=== PATIENT | female | born 1955 | race Caucasian/White ===

== ENCOUNTER 2018-08-24 10:16 | Emergency (ER) | payer MEDICARE, MEDICAID, SELFPAY ==
[2018-08-24] VITALS (8 sets, daily range): BP systolic 157–204; BP diastolic 89–129; PULSE 55–100; RESP 16–25; TEMP 37.3–37.4; O2SAT 86–98; BMI 18.3
--- NOTE | 2018-08-24 10:31 | CT_ITS ---
STUDY: CT BRAIN WITHOUT CONTRAST REASON FOR EXAM: Female, 63 years old. Fall from a ladder last evening RADIATION DOSAGE (If Supplied By Facility): CTDIvol = ( 44.99 ) mGy, DLP = ( 796.11 ) mGycm TECHNIQUE: Transaxial CT imaging of the brain was performed without administration of intravenous contrast material. Individualized dose optimization techniques were used for this CT. COMPARISON: No relevant priors. FINDINGS: Normal soft tissue structures. Normal calvarium. There is moderate cerebral atrophy with widening of the extra-axial spaces and ventricular dilatation. There are areas of decreased attenuation within the white matter tracts of the supratentorial brain, consistent with microvascular disease changes. Normal basal ganglia and thalami. Normal brainstem. There is mild cerebellar atrophy. There is no intracranial hemorrhage. There are no findings of an acute ischemic infarction. There is mucoperiosteal inflammatory disease of the paranasal sinuses consistent with mild chronic sinusitis. CT/Brain/Head without Contrast IMPRESSION: Chronic involutional changes of the brain. Electronically Signed: Gerald Pacheco DO at 12:26 EDT Tel , Service support ,
--- NOTE | 2018-08-24 10:31 | EKG12_ITS ---
Test Reason : SOB Blood Pressure : / mmHG Vent. Rate : 097 BPM Atrial Rate : 097 BPM P-R Int : 146 ms QRS Dur : 086 ms QT Int : 374 ms P-R-T Axes : 072 066 064 degrees QTc Int : 474 ms Sinus rhythm with frequent Premature ventricular complexes Possible Left atrial enlargement Left ventricular hypertrophy Abnormal ECG Confirmed by ELIAS FOOTE, TUTU ([id number]), food editor APRIL RAMÍREZ ([id number] on 08/26/2018 11:41:58 AM Referred By: Confirmed By:TUTU GRIFFIN MD
--- NOTE | 2018-08-24 10:32 | CT_ITS ---
STUDY: CT CHEST WITHOUT CONTRAST REASON FOR EXAM: Female, 63 years old. Fall from a ladder RADIATION DOSAGE (If Supplied By Facility): CTDIvol = ( 9.24 ) mGy, DLP = ( 314.50 ) mGycm TECHNIQUE: Transaxial imaging was performed without the administration of intravenous contrast material. Individualized dose optimization techniques were used for this CT. COMPARISON: None. FINDINGS: COPD and emphysema, moderate. Spiculated nodule in the right upper lobe measuring 7.8 x 7.3 mm. Suspicious for malignancy. No evidence of pneumothorax. An area of partial consolidation is noted in the right middle lobe; unsure if this related to mild mucous plugging. Lungs are otherwise clear. Normal heart and pericardium. Multiple prominent and small mediastinal lymph nodes are noted. Normal hilar regions. Normal unenhanced pulmonary arteries. Normal aorta arch and descending thoracic aorta. There are multi-level degenerative changes of the thoracic spine. No evidence of rib fracture. There is a compression fracture of the T5 vertebral body. . CT/Chest without Contrast IMPRESSION: Compression fracture of the T5 vertebral body without retropulsed fragmentation. COPD and emphysema without acute injury in the chest. Highly suspicious right upper lobe pulmonary nodule, further evaluation is needed when possible. Numerous small mediastinal lymph nodes. Electronically Signed: Gerald Pacheco DO at 12:30 EDT Tel , Service support ,
--- NOTE | 2018-08-24 10:32 | CT_ITS ---
STUDY: CT CERVICAL SPINE WITHOUT CONTRAST REASON FOR EXAM: Female, 63 years old. Status post fall off a ladder RADIATION DOSAGE (If Supplied By Facility): CTDIvol = ( 13.03 ) mGy, DLP = ( 228.50 ) mGycm TECHNIQUE: High resolution transaxial imaging was performed without contrast material. Sagittal and coronal images were reconstructed. Individualized dose optimization techniques were used for this CT. COMPARISON: None FINDINGS: Normal craniovertebral junction. Normal anterior atlantoaxial articulation. Normal odontoid process. Normal cervical lordosis. Normal vertebral bodies and posterior osseous elements. No acute fracture or listhesis. Mild multilevel degenerative disc disease. Mild diffuse demineralization. Normal visualized soft tissue structures. CT/Spine Cervical without Contras IMPRESSION: Multilevel degenerative changes, as described above. Electronically Signed: Gerald Pacheco DO at 12:52 EDT Tel , Service support ,
--- NOTE | 2018-08-24 10:32 | CT_ITS ---
STUDY: CT ABDOMEN AND PELVIS WITH CONTRAST REASON FOR EXAM: Female, 63 years old. Fall from a ladder RADIATION DOSAGE (If Supplied By Facility): CTDIvol = ( 12.83 ) mGy, DLP = ( 608.40 ) mGycm TECHNIQUE: Transaxial images were obtained from the dome of the diaphragm to the symphysis pubis without oral contrast. 100ML IV Isovue 300 was administered. Sagittal and coronal images were reconstructed. Individualized dose optimization techniques were used for this CT. COMPARISON: None. FINDINGS: The visualized lung bases are unremarkable. The visualized portions of the heart are within normal limits. Normal liver. Normal gallbladder and extrahepatic biliary system. Normal spleen. Normal pancreas. Normal bilateral adrenal glands. Normal right kidney. Normal left kidney. Normal visualized stomach. Normal small intestine. There are multiple colonic diverticula consistent with diverticulosis. There is non-visualization of the appendix. There is diffuse atherosclerotic calcification of the abdominal aorta, without a demonstrated aneurysm. Normal inferior vena cava. Normal retroperitoneum. Normal urinary bladder. There is atrophy of the uterus. Normal abdominal wall. There are diffuse degenerative changes of the visualized lumbar spine. CT/Abdomen/Pelvis W IV Cont ONLY IMPRESSION: No acute traumatic findings. Chronic diverticulosis without acute diverticulitis. No evidence of active bleeding or hemorrhage. Electronically Signed: Gerald Pacheco DO at 12:41 EDT Tel , Service support ,
--- NOTE | 2018-08-24 10:34 | CT_ITS ---
STUDY: CT THORACIC SPINE WITHOUT CONTRAST REASON FOR EXAM: Female, 63 years old. Fall from a ladder RADIATION DOSAGE (If Supplied By Facility): CTDIvol = ( 18.42 ) mGy, DLP = ( 608.82 ) mGycm TECHNIQUE: The patient was scanned in a multi detector CT scanner. High resolution imaging was performed. Images were obtained from C7 to L1. Sagittal and coronal images were reconstructed. Individualized dose optimization techniques were used for this CT. COMPARISON: CT chest the same time FINDINGS: There is multilevel degenerative disc disease and cervical spondylosis. There appears to be severe acute compression fracture of the T5 vertebral body without retropulsed fragmentation. No definite evidence of epidural hematoma. Otherwise, age-related degenerative changes of the thoracic spine with diffuse demineralization CT/Spine Thoracic without Contras IMPRESSION: Compression fracture of T5 vertebral body without retropulsed fragmentation or evidence of epidural hematoma. Electronically Signed: Gerald Pacheco DO at 12:32 EDT Tel , Service support ,
--- NOTE | 2018-08-24 10:35 | CT_ITS ---
STUDY: CT LUMBAR SPINE WITHOUT CONTRAST REASON FOR EXAM: Female, 63 years old. Status post fall from a ladder RADIATION DOSAGE (If Supplied By Facility): CTDIvol = ( 11.66 ) mGy, DLP = ( 324.36 ) mGycm TECHNIQUE: The patient was scanned in a multi detector CT scanner. High resolution transaxial imaging was performed. Images were obtained from T12 to S1. Sagittal and coronal images were reconstructed. Individualized dose optimization techniques were used for this CT. COMPARISON: None FINDINGS: Normal lumbar lordosis. There is no substantial scoliosis. Severe diffuse demineralization. Normal vertebrae of the lumbar spine. There is no demonstrated compression deformity or fracture of the visualized lumbar vertebrae. Moderate multilevel degenerative disc disease with facet degenerative change. No critical central canal stenosis. Severe atherosclerotic disease of the abdominal aorta CT/Spine Lumbar without Contrast IMPRESSION: Multilevel degenerative changes, as described above. Electronically Signed: Gerald Pacheco DO at 12:33 EDT Tel , Service support ,
--- NOTE | 2018-08-24 10:35 | NURSING ---
NO OLD EKGS
--- NOTE | 2018-08-24 10:38 | ED.DCSUM_ITS ---
- ER Visit Summary Date of Service: 08/24/18 Chief Complaint: Fall, shortness of breath History of Present Illness: The patient is a 63 F presenting after fall, complaining of shortness of breath. Patient states she was on a 6 foot ladder cleaning her gutters. She lost her balance and fell onto her back. This occurred yesterday. She did hit her head but did not lose consciousness. She complains of upper back pain and chest wall pain. She has had shortness of breath since the fall. She has a history of COPD, hypertension, GERD. Physical Examination: Vitals are stable. Patient is afebrile. Alert no acute distress. 86% on room air HEENT exam is unremarkable. Neck is nontender Lungs are diminished and wheezing bilaterally. Diffuse chest wall tenderness Heart is regular rate and rhythm. Abdomen is soft mild diffuse tenderness with no rebound or guarding Extremities left forearm skin tear no bony tenderness, active full range of motion Skin is warm and dry. No focal neurologic deficit. Remainder of exam is unremarkable. Emergency Department Course and Treatment: Patient was given morphine, Zofran IV. She was given albuterol Atrovent aerosol. She was given tetanus IM. EKG is sinus rate of 97 with LVH, PVCs. CBC shows white count 11.3. Chemistries show sodium 125, glucose 120. Troponin is negative. CT head shows chronic involutional changes of the brain. CT cervical spine shows multilevel degenerative changes. CT thoracic spine shows compression fracture of T5 vertebral body without retropulsed fragmentation or evidence of epidural hematoma. CT lumbar spine shows multilevel degenerative changes. CT chest shows compression fracture of the T5 vertebral body without retropulsed fragmentation. COPD and emphysema without acute injury in the chest. Highly suspicious right upper lobe pulmonary nodule, further evaluation is needed when possible. Numerous small mediastinal lymph nodes. CT abdomen pelvis shows no acute traumatic findings. Chronic diverticulosis without acute diverticulitis. No evidence of active bleeding or hemorrhage. Patient continues to have wheezing after aerosol treatments. She was given Solu-Medrol IV. She was given additional dose of pain medication. She continues to require oxygen in the ED. Discussed with the hospitalist. He recommends transfer to tertiary care center for trauma evaluation. Discussed with [facility] for transfer. Disposition: Transfer [facility] Impression: COPD exacerbation, status post mechanical fall, T5 compression fracture, left forearm skin tear This note was generated with Dragon dictation software. It may contain incorrect words, spelling, and punctuation that were not noted in review of the chart prior to signing ED Disposition - Plan for ED Patient: Referrals: May Garcia MD [Primary Care Provider] -
[2018-08-24] MEDS: Ondansetron 4 MG/2 ML Vial IV (10:47)
[2018-08-24] MEDS: Morphine 4 MG/ML Syringe IV ×2 (10:47→13:25)
[2018-08-24 10:48] LABS: Absolute Neutrophil Count 9.8 X10^3/uL (2.0-7.7); Basophil# 0.01 X10^3/uL; Basophil% 0.1 % (0-1); Hematocrit 43.9 % (37-47); Hemoglobin 15.6 g/dl (12.0-15.0); Lymphocyte % 4.4 % (19-41); Mean Corp Hgb Conc 35.5 g/gl (32-36); Mean Corpuscular Hgb 32.7 pg (27.0-32.0); Mean Platelet Vol. 9.1 fl (6.2-12.0); Neutrophil # 9.82 X10^3/uL (2.7-7.7); Neutrophil % 87.2 % (47-70); Platelet Count 394 K/mm3 (150-450); RBC Distribution Width CV 12.6 % (11.6-14.6); RBC Distribution Width SD 42.4 fl (35.1-43.9); Red Blood Count 4.77 M/mm3 (4.2-5.4); White Blood Count 11.3 K/mm3 (4.4-11.0)
[2018-08-24 10:49] LABS: Differential Indicated SCAN CRITERIA MET; POSITIVE COUNT NO; POSITIVE DIFFERENTIAL YES; POSITIVE MORPHOLOGY NO
[2018-08-24] MEDS: Albuterol 2.5 MG/3 ML VIAL.NEB. INHALATION ×3 (10:55)
[2018-08-24] MEDS: Ipratropium/Albuterol Sulfate 3 ML AMPUL.NEB INHALATION (10:56)
[2018-08-24 11:02] LABS: Anion Gap 6 (5-15); BUN 7 mg/dL (7-18); BUN/Creat Ratio 12.9 RATIO (10-20); Calcium,Total 9.2 mg/dL (8.5-10.1); Chloride 89 mmol/L (98-107); Creatinine, Serum 0.54 mg/dL (0.55-1.02); EST Glomerular Filtration Rate 120 mL/min (>60); Est Glom Filt Rate - Afr Amer 145 mL/min (>60); Estimated Creatinine Clearance 87.02 ml/min; Glucose 120 mg/dL (74-106); Sodium Level 125 mmol/L (136-145)
[2018-08-24] MEDS: Diphth,Pertuss(Acell),Tet Vac 0.5 ML Vial IM (11:57)
[2018-08-24] MEDS: MethylPREDNISolone 125 MG/2 ML Vial IV (13:25)
--- NOTE | 2018-08-24 13:57 | NURSING ---
CALLED [facility] FOR [facility]SF[facility]. TALKED TO ARAM
--- NOTE | 2018-08-24 14:22 | NURSING ---
ER TO ER AT [facility] PER DR CASTAÑEDA. ER DR IS LINDY STAFFORD
--- NOTE | 2018-08-24 14:26 | NURSING ---
CALLED [facility] FOR TRANSPORT. NONE AVAILABLE TIL [phone]
--- NOTE | 2018-08-24 14:26 | NURSING ---
CALLED [facility]. ANDERSON IS FROM [place]
== END 2018-08-24 15:02 | disposition short-term general hospital (02) ==
PROVIDERS: Emergency Provider Emergency Medicine; Family Provider Internal Medicine; PCP Internal Medicine
DX: S22.059A Unspecified fracture of T5-T6 vertebra, initial encounter for closed fracture (principal); S51.812A Laceration without foreign body of left forearm, initial encounter; W11.XXXA Fall on and from ladder, initial encounter; Y93.H9 Activity, other involving exterior property and land maintenance, building and construction; Y92.007 Garden or yard of unspecified non-institutional (private) residence as the place of occurrence of the external cause; Y99.9 Unspecified external cause status; Z23 Encounter for immunization; J44.1 Chronic obstructive pulmonary disease with (acute) exacerbation; I49.3 Ventricular premature depolarization; I10 Essential (primary) hypertension; K57.90 Diverticulosis of intestine, part unspecified, without perforation or abscess without bleeding; R91.1 Solitary pulmonary nodule; K21.9 Gastro-esophageal reflux disease without esophagitis; Z72.0 Tobacco use; Z79.899 Other long term (current) drug therapy
CPT/HCPCS: 70450; 71250; 72125; 72128; 72131; 74177; 80048; 84484; 85025; 90715; 93005; 94640; 96374; 96375; 96376; 99285; J7030; Q9967; A4216; J2405

== ENCOUNTER 2018-09-06 12:46 | Emergency (ER) | payer MEDICARE, MEDICAID, SELFPAY ==
[2018-08-24 10:17] VITALS: BMI 18.3
[2018-09-06 12:46] VITALS: BP 154/95; PULSE 75; RESP 16; TEMP 36.6; O2SAT 94; BMI 19.0
--- NOTE | 2018-09-06 13:04 | ED.VISSUMM ---
- ER Visit Summary Date of Service: 09/06/18 Chief Complaint: [Back and rib pain] History of Present Illness: The patient is a 63 F [Zentz to the emergency department complaint of back and rib pain that started after she had a fall over a week ago. Patient states that she was on a roof cleaning her gutters when she fell off. Patient was seen in this emergency department and then transferred to [facility]. Patient apparently was diagnosed with a T5 compression fracture and she tells me also rib fractures. Patient states that she thinks her granddaughter brought her medications up to the hospital and then were misplaced while there. Patient takes hydrocodone regularly and gets monthly prescriptions from her primary care physician Dr. Delmy Garcia. Patient was not discharged home with any other pain medication. Patient having significant pain and is supposed to have visiting nurses come in to help with rehab. Patient does not feel like she will be able to do it without her pain medication.] No new injuries. Physical Examination: [HEENT-PERRLA, EOMI. Cranial nerves II through XII grossly intact. TMs clear. Mucous membranes moist. No adenopathy. Cardiovascular-regular rate and rhythm without murmur or ectopy Lungs-clear to auscultation, chest wall stable without crepitus or subcu emphysema Abdomen-normoactive bowel sounds, soft, nontender, no rebound or rigidity, no peritoneal signs. Back exam-patient has some faint ecchymosis noted over the lower lumbar spine. Patient has tenderness diffusely about the left and right posterior ribs however no ecchymosis or bruising noted. There is no subcu emphysema. Extremities-intact ?4, normal range of motion, normal pulses, atraumatic] Test Results: [None indicated] Emergency Department Course and Treatment: [] Treatment Plan: [I did review patient's CT reports from prior visit. Patient was noted to have a T5 compression fracture with retropulsion. CT of the chest however did not show rib fractures.] Disposition: [Patient will be given a short supply of Percocet.] Impression: [T5 compression fracture Bilateral rib pain] This note was generated with [employer] dictation software. It may contain incorrect words, spelling, and punctuation that were not noted in review of the chart prior to signing ED Disposition - Plan for ED Patient: Referrals: May Garcia MD [Primary Care Provider] -
--- NOTE | 2018-09-06 13:07 | ED.DEP ---
ED Disposition - Plan for ED Patient: Instructions: ED Fx Comp Vertebral Prescriptions: Oxycodone HCl/Acetaminophen [Percocet 5/325] 1 tab PO Q6H PRN PRN 5 Days #20 tab PRN Reason: Pain Referrals: May Garcia MD [Primary Care Provider] - 5-7 Days
== END 2018-09-06 13:24 | disposition home or self-care (01) ==
PROVIDERS: Emergency Provider Emergency Medicine; Family Provider Internal Medicine; PCP Internal Medicine
DX: M48.54XA Collapsed vertebra, not elsewhere classified, thoracic region, initial encounter for fracture (principal); R07.81 Pleurodynia; W11.XXXA Fall on and from ladder, initial encounter; Y93.9 Activity, unspecified; Y92.9 Unspecified place or not applicable; Y99.9 Unspecified external cause status; M54.9 Dorsalgia, unspecified; G89.29 Other chronic pain; Z72.0 Tobacco use
CPT/HCPCS: 99282

== ENCOUNTER 2019-10-24 07:18 | Inpatient (IN) | payer MEDICARE, MEDICAID, SELFPAY ==
[2019-10-24] VITALS (22 sets, daily range): BP systolic 100–158; BP diastolic 68–105; PULSE 89–112; RESP 12–33; TEMP 36.4–36.8; O2SAT 91–100; BMI 19.4; BMI 18.9
--- NOTE | 2019-10-24 07:21 | RAD_ITS ---
STUDY: X-RAY CHEST REASON FOR EXAM: Female, 64 years old. EXTREME SOB TECHNIQUE: Single AP portable view of the chest. COMPARISON: None. FINDINGS: EKG electrodes are seen. There is evidence of a left 15-20% pneumothorax. Mild shift of the heart and mediastinal structures towards the right side. Mild tension should be ruled out. Hyperinflation. Increased markings at the lung bases suggestive of a scarring. Normal size heart. Normal mediastinum and tripp. Normal visualized pulmonary arteries. There is atherosclerotic tortuosity of the aortic arch and descending thoracic aorta. Normal visualized thoracic spine. Normal visualized ribs, clavicles, and shoulders. There is no demonstrated abnormality of the visualized soft tissue structures of the upper abdomen. RAD/Chest 1 View (Portable) IMPRESSION: Left 15-20% pneumothorax. Mild shift of the heart and mediastinal structures towards the right side. An element of the tension should be ruled out. Electronically Signed: Roni Sanchez, at 8:17 EDT , Service support ,
--- NOTE | 2019-10-24 07:22 | EKG12_ITS ---
Test Reason : SOB Blood Pressure : / mmHG Vent. Rate : 099 BPM Atrial Rate : 099 BPM P-R Int : 160 ms QRS Dur : 086 ms QT Int : 396 ms P-R-T Axes : 072 049 067 degrees QTc Int : 508 ms Sinus rhythm with occasional Premature ventricular complexes Nonspecific ST and T wave abnormality Abnormal ECG Confirmed by ELIAS FOOTE, TUTU ([id number]), digital editor KAI RODRIGUEZ ([id number]) on 10/28/2019 9:25:46 AM Referred By: TOBY Confirmed By:TUTU GRIFFIN MD
[2019-10-24] MEDS: Albuterol 2.5 MG/3 ML VIAL.NEB. INHALATION ×2 (07:30→07:31)
[2019-10-24] MEDS: 0.9% Normal Saline 1,000 ML 150 ML IV (07:30)
[2019-10-24 07:38] LABS: Absolute Lymphocyte Count 1.57 X10^3/uL (0.83-4.51); Absolute Neutrophil Count 11.1 X10^3/uL (2.0-7.7); Basophil# 0.04 X10^3/uL; Basophil% 0.3 % (0-1); Eosinophil# 0.42 X10^3/uL; Hematocrit 43.1 % (37-47); Hemoglobin 14.6 g/dL (12.0-15.0); Lymphocyte # 1.57 X10^3/ul (4.0); Lymphocyte % 11.1 % (19-41); Mean Corp Hgb Conc 33.9 g/dL (32-36); Mean Corpuscular Hgb 32.6 pg (27.0-32.0); Mean Corpuscular Volume 96.2 fL (81-99); Mean Platelet Vol. 9.1 fl (6.2-12.0); Monocyte# 0.94 X10^3/uL; Monocyte% 6.6 % (0-10); NRBC Flagged by Analyzer 0 % (0-5); Neutrophil # 11.08 X10^3/uL (2.7-7.7); Neutrophil % 78.4 % (47-70); Platelet Count 414 K/mm3 (150-450); RBC Distribution Width CV 13.2 % (11.6-14.6); RBC Distribution Width SD 46.7 fl (35.1-43.9); Red Blood Count 4.48 M/mm3 (4.2-5.4); White Blood Count 14.1 K/mm3 (4.4-11.0)
[2019-10-24] MEDS: fentaNYL 100 MCG/2 ML Ampul 50 MCG IV (07:46)
[2019-10-24 07:47] LABS: International Normalized Ratio 1.1
[2019-10-24 07:48] LABS: Partial Thromboplast Time 25.3 Seconds (24.1-36.2)
[2019-10-24 07:50] LABS: D-Dimer Quantitative (DVT/PE) 0.38 FEU/ug/m (0.27-0.49)
[2019-10-24 07:57] LABS: AST(SGOT) 19 U/L (15-37); Alanine Aminotransfer ALT/SGPT 19 U/L (13-56); Albumin, Serum 3.7 g/dL (3.2-5.0); Alkaline Phosphatase 76 U/L (45-117); Anion Gap 3 (5-15); BUN 10 mg/dL (7-18); BUN/Creat Ratio 16.9 RATIO (10-20); Calcium,Total 8.1 mg/dL (8.5-10.1); Chloride 100 mmol/L (98-107); Creatinine, Serum 0.59 mg/dL (0.55-1.02); EST Glomerular Filtration Rate 108 mL/min (>60); Est Glom Filt Rate - Afr Amer 131 mL/min (>60); Estimated Creatinine Clearance 47.79 ml/min; Globulin 3.7 g/dL (2.2-4.2); Glucose 156 mg/dL (74-106); Potassium 4.4 mmol/L (3.5-5.1); Protein, Total 7.4 g/dL (6.4-8.2); Sodium Level 132 mmol/L (136-145)
[2019-10-24 08:01] LABS: Lactic Acid 1.2 mmol/L (0.4-1.9)
--- NOTE | 2019-10-24 08:06 | RAD_ITS ---
STUDY: X-RAY CHEST REASON FOR EXAM: Female, 64 years old. CHEST TUBE INSERTION TECHNIQUE: Single AP portable view of the chest. COMPARISON: Comparison is made with prior study done earlier today. FINDINGS: A left-sided large caliber chest tube has been inserted. The tip is overlying the left apex. Small amount of air is seen in the subcutaneous tissues overlying the lower left hemithorax. Blunting of the left costophrenic angle. The left-sided pneumothorax has resolved. Persistent increased markings in the left midlung and left lower lobe most likely representing atelectasis and/or scarring. The heart and mediastinal structures are now in the midline. RAD/Chest 1 View (Portable) IMPRESSION: Status post left chest tube insertion with the resolution of the left-sided pneumothorax. The heart and mediastinal structures are now in the midline. Residual increased markings in the left lung as described. Electronically Signed: Roni Sanchez, at 8:36 EDT , Service support ,
--- NOTE | 2019-10-24 08:25 | CT_ITS ---
STUDY: CTA CHEST REASON FOR EXAM: Female, 64 years old. CHEST PAIN, FALL, CHEST TUBE TODAY RADIATION DOSAGE (If Supplied By Facility): CTDIvol = ( 9.96 ) mGy, DLP = ( 562.35 ) mGycm TECHNIQUE: The examination was performed with the intravenous administration of 100 CC ISOVUE 370. Post-processing of the angiographic images was performed, with multiplanar reformation and 3D reconstruction. Individualized dose optimization techniques were used for this CT. COMPARISON: Comparison is made with prior examination dated 08/24/2018. FINDINGS: A left-sided chest tube is seen. The tip is in the region of the left apex. Normal enhancement of the main pulmonary artery and right and left pulmonary arteries. Normal enhancement of the bilateral peripheral pulmonary arteries. There is no demonstrated pulmonary embolism. Normal thoracic aorta and visualized great vessels. There is no demonstrated aortic dissection. Normal heart and pericardium. Normal mediastinum. Normal hilar regions. Normal visualized trachea and bronchi. Hyperinflation. Diffuse emphysematous changes with bullous formation in the upper lobes. There is evidence of infiltration at the left lung base. This also evidence of a bibasilar scarring. Tiny anterior left apical residual pneumothorax. Small amount of the subcutaneous emphysema overlying the left lateral chest wall. There are degenerative changes of thoracic spine. Almost complete collapse of the T5 vertebra. Normal visualized upper abdomen. CT/CTA Chest W/WO Contrast IMPRESSION: Status post left chest tube placement with the tip in the left apex. Tiny residual left apical pneumothorax. Diffuse emphysematous changes in both lungs worse in the upper lobes with bullous formation. Infiltration in the left lower lobe with bibasilar scarring. Electronically Signed: Roni Sanchez, at 9:40 EDT , Service support ,
[2019-10-24] MEDS: Propofol 200 MG/20 ML Vial IV BOLUS (08:37)
[2019-10-24] MEDS: Ondansetron 4 MG/2 ML Vial IV (08:38)
[2019-10-24] MEDS: Morphine 4 MG/ML Syringe IV ×2 (08:38→08:50)
[2019-10-24 08:57] LABS: BNP,B-Type NATRIURETIC PEPTIDE 102.6 pg/mL (0-100)
--- NOTE | 2019-10-24 09:35 | ED.DCSUM_ITS ---
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 She woke out of her sleep with shortness of breath. There was a report given to paramedics by the grandson that she had fallen. After the fall she could not catch her breath and she was helped to the couch. EMS was called and they noticed a pulse ox of about 68% and she was very tachypneic. 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 They administered a DuoNeb and Solu-Medrol in route to the hospital. She received oxygen with a nonrebreather mask. Patient states she has a history of asthma but per reports has a history of significant emphysema as well as a spiculated nodule. Socially the patient is reported to smoke 2 packs a day drinks about 28 beers per day. Past Medical History - Allergies and Home Meds Allergies/Adverse Reactions: Allergies bupropion [From Wellbutrin] Allergy (Severe, Verified 10/24/19 08:51) Unknown Primary Care Physician: May Garcia MD [Primary Care Provider] - Smoking Status: Current every day smoker Review of Systems General: Denies: Chills, Fever, Sweats Eyes: Denies: Visual changes - bilaterally, Diplopia ENT: Denies: Rhinorrhea, Sore throat Cardiovascular: Reports: Chest pain. Denies: Palpitations Respiratory: Reports: Dyspnea. Denies: Cough, Dyspnea on exertion Gastrointestinal: Denies: Abdominal pain, Nausea, Vomiting, Diarrhea, Melena, Hematochezia Genitourinary: Denies: Dysuria, Hematuria, Frequency Musculoskeletal: Denies: Back pain, Extremity Pain Skin: Denies: Rash, Wounds Neurological: Denies: Headache, Weakness, Numbness Physical Exam Vital Signs/Narrative: Vital Signs Temp Pulse Pulse Pulse Pulse Pulse Pulse 10/24/19 08:52 111 H 10/24/19 08:51 97.6 F L 97 10/24/19 08:42 97 10/24/19 08:35 99 10/24/19 08:30 103 H 10/24/19 07:54 108 H 102 H 100 100 98 10/24/19 07:31 97.8 F 112 H 10/24/19 07:19 97.8 F 109 H Resp Resp Resp Resp Resp Resp BP 10/24/19 08:52 28 H 10/24/19 08:51 19 H 109/74 10/24/19 08:42 19 H 109/71 10/24/19 08:35 20 H 121/82 H 10/24/19 08:30 20 H 120/91 H 10/24/19 07:54 26 H 21 H 21 H 29 H 22 H 10/24/19 07:31 28 H 157/104 H 10/24/19 07:19 33 H 158/103 H BP BP BP BP BP Pulse Ox 10/24/19 08:52 10/24/19 08:51 93 10/24/19 08:42 93 10/24/19 08:35 92 10/24/19 08:30 92 10/24/19 07:54 135/89 H 116/69 126/71 H 123/92 H 120/91 H 10/24/19 07:31 98 10/24/19 07:19 100 Inital Vital Signs reviewed: Yes General: Well nourished, Well developed, No Acute Distress Head: Normocephalic, Atraumatic Eyes: Perrl, EOMI ENT: Moist mucous membranes, No rhinorrhea Neck: Supple, Nontender Cardiovascular: Regular rate, No murmurs, Tachycardia Respiratory: Decreased Air Movement Abdomen: Soft, Nontender, Nondistended, Normal bowel sounds Back: Nontender, Normal Inspection Extremities: Nontender, No edema Skin: Normal color, No rash Neurological: Alert, Oriented x3, Cranial nerves II-XII grossly intact, Normal Strength, Normal Sensation Psychological: Normal affect, Normal Mood Diagnostic/Tx/Re-eval Laboratory Last Values WBC 14.1 K/mm3 (4.4-11.0) H 10/24/19 07:24 RBC 4.48 M/mm3 (4.2-5.4) 10/24/19 07:24 Hgb 14.6 g/dL (12.0-15.0) 10/24/19 07:24 Hct 43.1 % (37-47) 10/24/19 07:24 MCV 96.2 fL (81-99) 10/24/19 07:24 MCH 32.6 pg (27.0-32.0) H 10/24/19 07:24 MCHC 33.9 g/dL (32-36) 10/24/19 07:24 RDW Std Deviation 46.7 fl (35.1-43.9) H 10/24/19 07:24 RDW Coeff of Oral 13.2 % (11.6-14.6) 10/24/19 07:24 Plt Count 414 K/mm3 (150-450) 10/24/19 07:24 MPV 9.1 fl (6.2-12.0) 10/24/19 07:24 Immature Gran % (Auto) 0.600 % (0.0-0.9) 10/24/19 07:24 Neut % (Auto) 78.4 % (47-70) H 10/24/19 07:24 Lymph % (Auto) 11.1 % (19-41) L 10/24/19 07:24 Page % (Auto) 6.6 % (0-10) 10/24/19 07:24 Eos % (Auto) 3.0 % (0-5) 10/24/19 07:24 Baso % (Auto) 0.3 % (0-1) 10/24/19 07:24 Absolute Neuts (auto) 11.1 X10^3/uL (2.0-7.7) H 10/24/19 07:24 Absolute Lymphs (auto) 1.57 X10^3/uL (0.83-4.51) 10/24/19 07:24 Nucleated RBC % 0 % (0-5) 10/24/19 07:24 PT 14.0 SECONDS (11.7-14.9) 10/24/19 07:24 INR 1.1 10/24/19 07:24 APTT 25.3 Seconds (24.1-36.2) 10/24/19 07:24 D-Dimer Quant (PE/DVT) 0.38 FEU/ug/m (0.27-0.49) 10/24/19 07:24 Sodium 132 mmol/L (136-145) L 10/24/19 07:24 Potassium 4.4 mmol/L (3.5-5.1) 10/24/19 07:24 Chloride 100 mmol/L (98-107) 10/24/19 07:24 Carbon Dioxide 29.0 mmol/L (21.0-32.0) 10/24/19 07:24 Anion Gap 3 (5-15) L 10/24/19 07:24 BUN 10 mg/dL (7-18) 10/24/19 07:24 Creatinine 0.59 mg/dL (0.55-1.02) 10/24/19 07:24 Estim Creat Clear Calc 47.79 ml/min 10/24/19 07:24 Est GFR (MDRD) Af Amer 131 mL/min (>60) 10/24/19 07:24 Est GFR (MDRD) Non-Af 108 mL/min (>60) 10/24/19 07:24 BUN/Creatinine Ratio 16.9 RATIO (10-20) 10/24/19 07:24 Glucose 156 mg/dL (74-106) H 10/24/19 07:24 Lactic Acid 1.2 mmol/L (0.4-1.9) 10/24/19 07:24 Calcium 8.1 mg/dL (8.5-10.1) L 10/24/19 07:24 Total Bilirubin 0.70 mg/dL (0.20-1.00) 10/24/19 07:24 AST 19 U/L (15-37) 10/24/19 07:24 ALT 19 U/L (13-56) 10/24/19 07:24 Alkaline Phosphatase 76 U/L (45-117) 10/24/19 07:24 Troponin I 0.338 ng/mL (<0.045) H 10/24/19 07:24 B-Natriuretic Peptide 102.6 pg/mL (0-100) H 10/24/19 07:24 Total Protein 7.4 g/dL (6.4-8.2) 10/24/19 07:24 Albumin 3.7 g/dL (3.2-5.0) 10/24/19 07:24 Globulin 3.7 g/dL (2.2-4.2) 10/24/19 07:24 Albumin/Globulin Ratio 1.0 RATIO (0.9-2.4) 10/24/19 07:24 Clinical Impression(s) from Imaging Studies Chest X-Ray 10/24/19 07:21 IMPRESSION: Left 15-20% pneumothorax. Mild shift of the heart and mediastinal structures towards the right side. An element of the tension should be ruled out. Electronically Signed: Roni Sanchez, at 8:17 EDT , Service support , Chest X-Ray 10/24/19 08:06 IMPRESSION: Status post left chest tube insertion with the resolution of the left-sided pneumothorax. The heart and mediastinal structures are now in the midline. Residual increased markings in the left lung as described. Electronically Signed: Roni Sanchez, at 8:36 EDT , Service support , Chest CTA 10/24/19 08:25 IMPRESSION: Status post left chest tube placement with the tip in the left apex. Tiny residual left apical pneumothorax. Diffuse emphysematous changes in both lungs worse in the upper lobes with bullous formation. Infiltration in the left lower lobe with bibasilar scarring. Electronically Signed: Roni Sanchez, at 9:40 EDT , Service support , - EKG Initial EKG Interpretation: Sinus Rhythm - EKG demonstrates a sinus rhythm with PVC at a rate of 99 without concerning features of ACS - Medical Decision Making Patient provided emergent verbal consent for the use of procedural sedation for insertion of a left tube thoracostomy. Patient received 0.5 mg/kg of propofol preceded by 50 mcg of fentanyl. Once adequate sedation was achieved the patient was prepped and draped in the usual fashion the skin scrubbed with Betadine. Local 1% lidocaine instilled into the area and a 2.5 cm incision was made with 11 blade in the mid axillary line just inferior to the nipple. The intercostal space was bluntly dissected down to using my finger. A curved hemostats was used to enter into the chest cavity and a large garrido of air was obtained. A 28 Uzbek chest tube was placed and secured with 2-0 silk. It was dressed in the usual fashion and secured to wall suction. Post procedure film shows adequate placement the chest tube and reexpansion of the lung. There was some changes in the left lower lung field which I believe is more reexpansion atelectasis rather than infiltrate. She was fine before she went to bed last night and woke suddenly with shortness of breath. I believe she most likely had a spontaneous pneumothorax. I do not believe she is septic and I do not believe she has pn eumonia at this time. Case was discussed with on-call pulmonology. Dr. Bentley is come to emergency department to see the patient. Our plan is admission to PCU. - Critical Care Time Critical care time (excluding procedures): 30-74 minutes - 31 min, Discussing w/Patient &/or Family/Career Center Director, Discussing w/Consultants, Arranging Admission or Transfer, Performing Direct Patient Care at Bedside Procedures Procedure(s): Tube thoracostomy ED Disposition - Plan for ED Patient: Disposition: Acute Care Hospital [facility] Diagnosis: Tension pneumothorax, Elevated troponin I level, Dyspnea, COPD (chronic obstructive pulmonary disease), Acute respiratory failure with hypoxia Referrals: May Garcia MD [Primary Care Provider] -
--- NOTE | 2019-10-24 10:00 | CON.PCM_ITS ---
Reason for Consult Date of Consultation: 10/24/19 Reason for Consultation: Pneumothorax History of Present Illness: The patient is a 64-year-old female, with a history as outlined below, who presented to the emergency department on October 23 with rather acute onset shortness of breath. There is some question as to whether the patient may have fallen at home. She does not regularly utilize supplemental oxygen at her baseline. She is a current smoker of 2 packs of cigarettes per day and reports that she regularly consumes 6+ beers daily. She denies ever having gone through alcohol withdrawal in the past. The patient has a known history of emphysema and was previously identified in August 2018 is having a subcentimeter pulmonary nodule in the right upper lobe. The patient was referred to the pulmonary clinic for further evaluation, but never followed up for her appointment. On presentation to the emergency department, the patient was noted to be afebrile but was tachycardic and tachypneic. She was hypoxemic requiring a nonrebreather. Laboratory evaluation revealed an elevated white blood cell count of 14,000. Coagulation profile was within normal limits. Chemistry profile was largely unremarkable. Lactate was within normal limits. Troponin was mildly elevated to 0.388. Initial plain film chest x-ray revealed evidence of a left-sided pneumothorax. The patient subsequently underwent tube thoracotomy with resolution of the pneumothorax noted on follow-up chest x-ray. A follow-up CTA chest revealed a an 8 mm right upper lobe lung nodule with diffuse emphysematous changes bilaterally with bullae noted in the upper lobes predominantly. There was also evidence of an airspace infiltrate in the left lower lobe. On CT, there is still some residual left apical pneumothorax noted. Past Medical History Past Medical History (Chronic Problems): Chronic Problems (Last Reviewed 11/20/18 @ 06:36 by Maegan Jorge) Allergic rhinitis (Chronic) Depression (Chronic) Chronic bronchitis (Chronic) Insomnia (Chronic) Emphysema of lung (Chronic) Hypertension (Chronic) Dysphagia (Chronic) COPD (chronic obstructive pulmonary disease) (Chronic) Anxiety (Chronic) Medical History: Medical History (Last Reviewed 11/20/18 @ 06:36 by Maegan Jorge) Allergic rhinitis (Chronic) J30.9 Depression (Chronic) F32.9 Chronic bronchitis (Chronic) J42 Insomnia (Chronic) G47.00 Emphysema of lung (Chronic) J43.9 Hypertension (Chronic) I10 Dysphagia (Chronic) R13.10 COPD (chronic obstructive pulmonary disease) (Chronic) J44.9 Back pain (Acute) M54.9 Anxiety (Chronic) F41.9 Allergies bupropion [From Wellbutrin] Allergy (Severe, Verified 10/24/19 08:51) Unknown Home Medications: Ambulatory Orders Medication Instructions Recorded Albuterol Inhaler [Ventolin Hfa 2 puff INHALATION Q4H PRN PRN 10/13/15 (SP)] Budesonide/Formoterol 160/4.5 2 puff INHALATION BID 10/13/15 [Symbicort 160/4.5 Mcg Inhaler (SP)] Citalopram Hydrobromide 20 mg PO DAILY 10/13/15 [Citalopram HBr] Guaifenesin/Codeine Phosphate 5 ml PO PRN PRN 10/13/15 [Virtussin AC Liquid] Omeprazole 40 mg PO DAILY 10/13/15 Promethazine HCl/Codeine 5 ml PO QHS PRN PRN 10/13/15 [Prometh-Codein 6.25-10 mg/5 ml] Triamcinolone 0.025% Cream 1 applic TOPICAL TID PRN PRN 10/13/15 [Kenalog] albuterol sulfate 2.5 mg INHALATION Q4H PRN 11/12/18 alprazolam 0.5 mg tablet 0.5 mg PO QHS 11/12/18 amlodipine 2.5 mg tablet 2.5 mg PO DAILY 11/12/18 cholecalciferol (vitamin D3) 25 1,000 unit PO DAILY 11/12/18 mcg (1,000 unit) capsule cyclobenzaprine 10 mg tablet 10 mg PO TID PRN 11/12/18 gabapentin 300 mg capsule 300 mg PO TID 11/12/18 guaifenesin 600 mg tablet, 600 mg PO BID 11/12/18 extended release 12 hr losartan 50 mg tablet 50 mg PO BID tab 11/12/18 melatonin 3 mg capsule 9 mg PO HS cap 11/12/18 polyethylene glycol 3350 17 gram 17 g PO DAILY 11/12/18 oral powder packet Smoking Status: Current every day smoker Tobacco Use: Cigarettes - *Family History Maternal History Items: Heart Disease, Hypertension Paternal History Items: Heart Disease Review of Systems Constitutional: Denies: Chills, Fever Eyes: Denies: Blurred vision, Double vision HEENT: Denies: Head Aches, Sinus Congestion, Sinus Drainage Cardiovascular: Reports: Chest Pain Respiratory: Reports: Cough, Shortness of Breath Gastrointestinal: Denies: Abdominal Pain, Nausea, Vomiting Genitourinary: Denies: Dysuria Musculoskeletal: Denies: Joint Pain, Joint Tenderness Skin: Denies: Rash, Wounds Neurological: Denies: Numbness, Tingling, Focal weakness Psychiatric: Denies: Anxiety, Depression, Homicidal Ideations, Suicidal Ideations Hematologic/ Lymphatic: Denies: Easy Bruising, Easy Bleeding Patient Problems: Active and Suspected Problems (Last Reviewed 11/20/18 @ 06:36 by Maegan Jorge) Tension pneumothorax (Acute) Elevated troponin I level (Acute) Dyspnea (Acute) Acute respiratory failure with hypoxia (Acute) Objective: The patient's most recent lab work, culture data and imaging studies have all been personally reviewed. - Physical Exam Vitals/I&O's: Vital Signs Temp Pulse Resp BP Pulse Ox 97.6 F L 111 H 28 H 109/74 93 10/24/19 08:51 10/24/19 08:52 10/24/19 08:52 10/24/19 08:51 10/24/19 08:51 Oxygen Flow Rate (L/min) [6] 15 Oxygen Flow Rate (L/min) [4] 15 Oxygen Flow Rate (L/min) [3] 15 Oxygen Flow Rate (L/min) [2] 15 Oxygen Flow Rate (L/min) [1 ( 15 Initial Baseline)] Oxygen Flow Rate (L/min) 6 Oxygen Delivery Method [6] Non-Rebreather Oxygen Delivery Method [5] Non-Rebreather Oxygen Delivery Method [4] Non-Rebreather Oxygen Delivery Method [3] Non-Rebreather Oxygen Delivery Method [2] Non-Rebreather Oxygen Delivery Method [1 ( Non-Rebreather Initial Baseline)] Oxygen Delivery Method Nasal Cannula Weight: 120 lb 9.486 oz Body Mass Index (BMI) 19.4 General: Alert, - - Appears rather uncomfortable and in pain. Patient falls asleep relatively easily given sedation that was administered for chest tube placement. HEENT: Atraumatic, Normocephalic Oral: Moist Mucosa Neck: Supple, No Nodes, Trachea Midline Lungs: - - Large bore left-sided chest tube in place. No air leak noted in atrium. Increased AP diameter. Diminished air movement bilaterally. Poor patient dependent inspiratory effort. Cardiovascular: Normal S1, Normal S2, Tachycardic Abdomen: Bowel Sounds Present, Soft, Non Tender Extremities: No clubbing, No cyanosis Skin: No breakdown Musculoskeletal: No Tenderness to Palpation of Joints or Extremities, Cachexia Lymphatic: No Cervical, Supraclavicular, or Inguinal Adenopathy Neurological: Neuro grossly intact Psych/Mental Status: Normal Affect, Appropriate Labs (Last 48 Hours) 10/24/19 10/24/19 10/24/19 07:24 07:24 07:24 WBC 14.1 H RBC 4.48 Hgb 14.6 Hct 43.1 MCV 96.2 MCH 32.6 H MCHC 33.9 RDW Std Deviation 46.7 H RDW Coeff of Oral 13.2 Plt Count 414 MPV 9.1 Immature Gran % (Auto) 0.600 Neut % (Auto) 78.4 H Lymph % (Auto) 11.1 L Hood % (Auto) 6.6 Eos % (Auto) 3.0 Baso % (Auto) 0.3 Absolute Neuts (auto) 11.1 H Absolute Lymphs (auto) 1.57 Nucleated RBC % 0 PT 14.0 INR 1.1 APTT 25.3 D-Dimer Quant (PE/DVT) 0.38 Sodium 132 L Potassium 4.4 Chloride 100 Carbon Dioxide 29.0 Anion Gap 3 L BUN 10 Creatinine 0.59 Estim Creat Clear Calc 47.79 Est GFR (MDRD) Af Amer 131 Est GFR (MDRD) Non-Af 108 BUN/Creatinine Ratio 16.9 Glucose 156 H Lactic Acid Calcium 8.1 L Total Bilirubin 0.70 AST 19 ALT 19 Alkaline Phosphatase 76 Troponin I 0.338 H B-Natriuretic Peptide Total Protein 7.4 Albumin 3.7 Globulin 3.7 Albumin/Globulin Ratio 1.0 10/24/19 10/24/19 07:24 07:24 WBC RBC Hgb Hct MCV MCH MCHC RDW Std Deviation RDW Coeff of Oral Plt Count MPV Immature Gran % (Auto) Neut % (Auto) Lymph % (Auto) Hood % (Auto) Eos % (Auto) Baso % (Auto) Absolute Neuts (auto) Absolute Lymphs (auto) Nucleated RBC % PT INR APTT D-Dimer Quant (PE/DVT) Sodium Potassium Chloride Carbon Dioxide Anion Gap BUN Creatinine Estim Creat Clear Calc Est GFR (MDRD) Af Amer Est GFR (MDRD) Non-Af BUN/Creatinine Ratio Glucose Lactic Acid 1.2 Calcium Total Bilirubin AST ALT Alkaline Phosphatase Troponin I B-Natriuretic Peptide 102.6 H Total Protein Albumin Globulin Albumin/Globulin Ratio Clinical Impression(s) from Imaging Studies Chest X-Ray 10/24/19 07:21 IMPRESSION: Left 15-20% pneumothorax. Mild shift of the heart and mediastinal structures towards the right side. An element of the tension should be ruled out. Electronically Signed: Roni Sanchez, at 8:17 EDT , Service support , Chest X-Ray 10/24/19 08:06 IMPRESSION: Status post left chest tube insertion with the resolution of the left-sided pneumothorax. The heart and mediastinal structures are now in the midline. Residual increased markings in the left lung as described. Electronically Signed: Roni Sanchez, at 8:36 EDT , Service support , Chest CTA 10/24/19 08:25 IMPRESSION: Status post left chest tube placement with the tip in the left apex. Tiny residual left apical pneumothorax. Diffuse emphysematous changes in both lungs worse in the upper lobes with bullous formation. Infiltration in the left lower lobe with bibasilar scarring. Electronically Signed: Roni Sanchez, at 9:40 EDT , Service support , Current Medications Sodium Chloride () 1,000 mls @ 150 mls/hr IV .[id number] [facility] Last Admin: 10/24/19 07:30 Dose: 150 mls/hr Documented by: Morphine Sulfate () 4 mg IV X1 PRN PRN Reason: Pain Score 1-10/10 Last Admin: 10/24/19 08:50 Dose: 4 mg Documented by: Assessment/Plan All Active Problems (Last Reviewed 11/20/18 @ 06:36 by Maegan Jorge) Tension pneumothorax (Acute) Elevated troponin I level (Acute) Dyspnea (Acute) Acute respiratory failure with hypoxia (Acute) Back pain (Acute) RECOMMENDATIONS: 1. Continue chest tube to wall suction today. 2. Obtain repeat chest x-ray tomorrow morning. 3. Start empiric antimicrobials for possible community-acquired pneumonia. 4. Start scheduled bronchodilators. 5. Continue supplemental oxygen. 6. Recommend close outpatient pulmonary follow-up. IMPRESSIONS: 1. Acute hypoxemic respiratory failure due to pneumothorax Unclear if the patient's presenting pneumothorax represents a primary spontaneous etiology versus traumatic from questionable fall. She does have underlying bilateral emphysematous changes and bullous disease, primarily in the upper lobes. Her presentation may be the consequence of ruptured bullae. Regardless, she has undergone tube thoracotomy. I would recommend continuing the patient on wall suction today with plans to repeat a chest x-ray in the morning. 2. Presumptive COPD with extensive tobacco abuse history/right upper lobe pulmonary nodule The patient has an extensive smoking history and continues to smoke daily. Although she was previously referred to the pulmonary clinic in 2019, the patient failed to present for her office visit. Upon discharge, the patient would likely benefit from outpatient pulmonary follow-up so that baseline pulmonary function studies can be obtained. In addition, the patient has a known right upper lobe lung nodule, which will need to be followed longitudinally. I personally spent 5 minutes discussing the deleterious effects of continued tobacco use with the patient, including modalities which could be utilized to achieve a smoke-free lifestyle. 3. Questionable community-acquired pneumonia The patient presented with radiographic evidence of a left lower lobe infiltrate. Given the patient's elevated white count, would recommend continuing empiric antimicrobials. 4. History of alcohol dependency The patient reports a longstanding history of daily alcohol use, typically 6+ beers per day. She will need to be monitored closely for any alcohol withdrawal symptoms. This note was generated with [employer] dictation software. It may contain incorrect words, spelling, and punctuation that were not noted in checking the note before signing. Inpatient E&M: 83046 Init Hosp L3 - Behavior Interventions Behavior Intervention: 29113 Smoking Cessation 3-10 min
--- NOTE | 2019-10-24 10:23 | NURSING ---
PCU GERTRUDE ACUTE HYPOXIC RESP FAILURE DUE TO TENSION PNEUMOTHORAX
--- NOTE | 2019-10-24 12:59 | ECHOCS_ITS ---
Reason For Study: Dyspnea/SOB Procedure This was a 2D Doppler, Color Flow transthoracic echocardiogram. The study was technically difficult. Contrast injection was performed. Exam performed portable in patient room. Left Ventricle Normal LV size. The estimated ejection fraction is 55 %. Normal diastology for age. No regional wall motion abnormalities noted. Right Ventricle Normal RV size. Normal systolic function. Atria Normal left atrium. Normal right atrium. No doppler evidence for ASD. Mitral Valve There is no mitral valve stenosis. No mitral valve insufficiency. Tricuspid Valve There is no tricuspid stenosis. No tricuspid valve insufficiency. Unable to estimate RV systolic pressure due to inadequate jet, pulmonary artery pressure probably normal. Aortic Valve Trisinus/trileaflet aortic valve. There is no aortic stenosis. No aortic valve insufficiency. Pulmonic Valve There is no pulmonic valvular stenosis. No pulmonic valve insufficiency. Great Vessels Normal aortic root. Pericardium/Pleural No pericardial effusion. MMode/2D Measurements & Calculations LVIDd: 4.6 cm IVSd: 1.1 cm LAV(MOD-bp): 49.3 ml LVIDs: 2.8 cm LVPWd: 1.3 cm LAV(MOD-bp) Indexed: 30.9 ml/m2 FS: 39.1 % LAV(MOD-sp2): 48.0 ml LAV(MOD-sp4): 43.5 ml LA A4 area: 15.9 cm2 RA A4 area: 13.8 cm2 Time Measurements MV dec time: 0.16 sec Doppler Measurements & Calculations MV E max juwan: 53.9 cm/sec Lat Peak E' Juwan: 8.8 cm/sec Med Peak E' Juwan: 7.6 cm/sec MV A max juwan: 105.7 cm/sec E/E' lat: 6.1 E/E' med: 7.1 MV E/A: 0.51 MV V2 max: 114.9 cm/sec MV P1/2t max juwan: 55.0 cm/sec Ao V2 max: 116.6 cm/sec MV max P.3 mmHg MV P1/2t: 43.1 msec Ao max P.4 mmHg MV V2 mean: 57.3 cm/sec MV dec slope: 373.5 cm/sec2 MV mean P.6 mmHg MV V2 VTI: 17.5 cm MVA(P1/2t): 5.1 cm2 LV V1 max: 92.7 cm/sec PA V2 max: 78.1 cm/sec LV V1 max P.4 mmHg Interpretation Summary The estimated ejection fraction is 55 %. Normal diastology for age. The study was technically difficult. Contrast injection was performed. Ordering Physician: Kirill Bentley Referring Physician: May Garcia M.D. Performed By: Andres Soria RCS
[2019-10-24] MEDS: 0.9% Normal Saline 1,000 ML 100 ML IV ×2 (13:56→23:22)
--- NOTE | 2019-10-24 16:28 | PCM.HP.STD ---
History of Present Illness Date of Admission: 10/24/19 Chief Complaint: Shortness of breath The patient is a 64 year old F with a PMH as below who presents from home with shortness of breath. She states that this morning she woke up and was feeling a bit short of breath and then she states she felt hot so she laid down on the kitchen floor. EMS was called and when they got there she was about 68% on room air and she was placed on supplemental oxygen and brought into the ER. She had chest x-ray which demonstrated a tension pneumothorax on the left and a chest tube was inserted with complete resolution of the pneumo. CT of the chest demonstrated possible left lower lobe pneumonia as well. She denies any chest pain, or lightheadedness. She denies any trauma or any fall. Past Medical History Past Medical History (Chronic Problems): Chronic Problems (Last Reviewed 11/20/18 @ 06:36 by Maegan Jorge) Allergic rhinitis (Chronic) Depression (Chronic) Chronic bronchitis (Chronic) Insomnia (Chronic) Emphysema of lung (Chronic) Hypertension (Chronic) Dysphagia (Chronic) COPD (chronic obstructive pulmonary disease) (Chronic) Anxiety (Chronic) Medical History: Medical History (Last Reviewed 11/20/18 @ 06:36 by Maegan Jorge) Allergic rhinitis (Chronic) J30.9 Depression (Chronic) F32.9 Chronic bronchitis (Chronic) J42 Insomnia (Chronic) G47.00 Emphysema of lung (Chronic) J43.9 Hypertension (Chronic) I10 Dysphagia (Chronic) R13.10 COPD (chronic obstructive pulmonary disease) (Chronic) J44.9 Back pain (Acute) M54.9 Anxiety (Chronic) F41.9 Allergies bupropion [From Wellbutrin] Allergy (Severe, Verified 10/24/19 08:51) Unknown Home Medications: Ambulatory Orders Medication Instructions Recorded Albuterol Inhaler [Ventolin Hfa 2 puff INHALATION Q4H PRN PRN 10/13/15 (SP)] Budesonide/Formoterol 160/4.5 2 puff INHALATION BID 10/13/15 [Symbicort 160/4.5 Mcg Inhaler (SP)] Citalopram Hydrobromide 20 mg PO DAILY 10/13/15 [Citalopram HBr] Guaifenesin/Codeine Phosphate 5 ml PO PRN PRN 10/13/15 [Virtussin AC Liquid] Omeprazole 40 mg PO DAILY 10/13/15 Promethazine HCl/Codeine 5 ml PO QHS PRN PRN 10/13/15 [Prometh-Codein 6.25-10 mg/5 ml] Triamcinolone 0.025% Cream 1 applic TOPICAL TID PRN PRN 10/13/15 [Kenalog] albuterol sulfate 2.5 mg INHALATION Q4H PRN 11/12/18 alprazolam 0.5 mg tablet 0.5 mg PO QHS 11/12/18 amlodipine 2.5 mg tablet 2.5 mg PO DAILY 11/12/18 cholecalciferol (vitamin D3) 25 1,000 unit PO DAILY 11/12/18 mcg (1,000 unit) capsule cyclobenzaprine 10 mg tablet 10 mg PO TID PRN 11/12/18 gabapentin 300 mg capsule 300 mg PO TID 11/12/18 guaifenesin 600 mg tablet, 600 mg PO BID 11/12/18 extended release 12 hr losartan 50 mg tablet 50 mg PO BID tab 11/12/18 melatonin 3 mg capsule 9 mg PO HS cap 11/12/18 polyethylene glycol 3350 17 gram 17 g PO DAILY 11/12/18 oral powder packet Surgical History: no surgical history Smoking Status: Current every day smoker Tobacco Use: Cigarettes Alcohol: Heavy Drugs: None - *Family History Maternal History Items: Heart Disease, Hypertension Paternal History Items: Heart Disease Review of Systems Constitutional: Denies: Chills, Fever, Weight Change HEENT: Denies: Head Aches, Sinus Congestion, Sinus Drainage Cardiovascular: Denies: Chest Pain, Chest Tightness, Heaviness, Light Headedness, Palpitations Respiratory: Reports: Shortness of Breath. Denies: Cough, Shortness of breath at rest, Sputum production Gastrointestinal: Denies: Abdominal Pain, Nausea, Vomiting Genitourinary: Denies: Dysuria Musculoskeletal: Denies: Joint Pain, Joint Tenderness Skin: Denies: Rash, Wounds Neurological: Denies: Numbness, Tingling, Focal weakness Psychiatric: Denies: Anxiety, Depression Hematologic/ Lymphatic: Denies: Easy Bruising, Easy Bleeding VTE Information - Inpt Only VTE Present on Admission: No Patient Problems: Active and Suspected Problems (Last Reviewed 11/20/18 @ 06:36 by Maegan Jorge) Tension pneumothorax (Acute) Elevated troponin I level (Acute) Dyspnea (Acute) Acute respiratory failure with hypoxia (Acute) - Physical Exam Vitals/I&O's: Vital Signs Temp Pulse Resp BP Pulse Ox 97.5 F L 95 20 H 144/86 H 96 10/24/19 12:36 10/24/19 15:40 10/24/19 12:36 10/24/19 12:36 10/24/19 12:36 Oxygen Flow Rate (L/min) [6] 15 Oxygen Flow Rate (L/min) [4] 15 Oxygen Flow Rate (L/min) [3] 15 Oxygen Flow Rate (L/min) [2] 15 Oxygen Flow Rate (L/min) [1 ( 15 Initial Baseline)] Oxygen Flow Rate (L/min) 5 Oxygen Delivery Method [6] Non-Rebreather Oxygen Delivery Method [5] Non-Rebreather Oxygen Delivery Method [4] Non-Rebreather Oxygen Delivery Method [3] Non-Rebreather Oxygen Delivery Method [2] Non-Rebreather Oxygen Delivery Method [1 ( Non-Rebreather Initial Baseline)] Oxygen Delivery Method Nasal Cannula Weight: 117 lb 6.4 oz Body Mass Index (BMI) 18.9 Intake and Output for Last 24 Hours 10/22/19 10/23/19 10/24/19 23:59 23:59 23:59 Intake Total 965 / 965 Balance 965 / 965 General: Alert, Oriented x3, Cooperative, No apparent distress HEENT: Atraumatic, PERRLA, EOMI, Normocephalic Oral: Moist Mucosa Neck: Supple, No JVD Lungs: Clear to auscultation, Normal air movement, No rhonchi, No wheeze, No rales, Diminished Cardiovascular: Regular rate, Regular Rhythm, Normal S1, Normal S2, No murmurs Abdomen: Soft, Non Tender, Non-Distended, No Hepato-splenomegaly Extremities: No edema, Capillary Refill Less than 3 Seconds Skin: No rashes, No breakdown Neurological: Neuro grossly intact, Sensory exam intact to light touch and pain Psych/Mental Status: Normal Affect, Appropriate Laboratory Results 10/24/19 07:24: WBC 14.1 H, RBC 4.48, Hgb 14.6, Hct 43.1, MCV 96.2, MCH 32.6 H, MCHC 33.9, RDW Std Deviation 46.7 H, RDW Coeff of Oral 13.2, Plt Count 414, MPV 9.1, Immature Gran % (Auto) 0.600, Neut % (Auto) 78.4 H, Lymph % (Auto) 11.1 L, [place] % (Auto) 6.6, Eos % (Auto) 3.0, Baso % (Auto) 0.3, Absolute Neuts (auto) 11.1 H, Absolute Lymphs (auto) 1.57, Nucleated RBC % 0 10/24/19 07:24: PT 14.0, INR 1.1, APTT 25.3, D-Dimer Quant (PE/DVT) 0.38 10/24/19 07:24: Sodium 132 L, Potassium 4.4, Chloride 100, Carbon Dioxide 29.0, Anion Gap 3 L, BUN 10, Creatinine 0.59, Estim Creat Clear Calc 47.79, Est GFR (MDRD) Af Amer 131, Est GFR (MDRD) Non-Af 108, BUN/Creatinine Ratio 16.9, Glucose 156 H, Calcium 8.1 L, Total Bilirubin 0.70, AST 19, ALT 19, Alkaline Phosphatase 76, Troponin I 0.338 H, Total Protein 7.4, Albumin 3.7, Globulin 3.7, Albumin/Globulin Ratio 1.0 10/24/19 07:24: Lactic Acid 1.2 10/24/19 07:24: B-Natriuretic Peptide 102.6 H 10/24/19 11:52: Troponin I 1.270 H* 10/24/19 15:02: Troponin I 1.250 H* Current Medications Acetaminophen (Tylenol) 650 mg PO Q6H PRN PRN PRN Reason: Pain Score 1-10/Temp > 100.7 F Albuterol/Ipratropium (Duoneb) 3 ml INHALATION Q4HWA.RT EDWARD Enoxaparin Sodium (Lovenox) 40 mg SC DAILY EDWARD Levofloxacin (Levaquin Iv) 750 mg in 150 mls @ 100 mls/hr IV Q24 EDWARD Sodium Chloride () 1,000 mls @ 100 mls/hr IV .Q10H EDWARD Last Admin: 10/24/19 13:56 Dose: 100 mls/hr Documented by: Sodium Chloride () 250 mls @ 15 mls/hr IV .[id number] PRN PRN Reason: Saline Flush Sodium Chloride () 250 mls @ 15 mls/hr IV .[id number] PRN PRN Reason: Additional IVPB Infusion Ondansetron HCl (Zofran) 4 mg IV Q8H PRN PRN PRN Reason: NAUSEA/VOMITING Sodium Chloride () 10 - 40 ml IV UD PRN PRN Reason: SALINE FLUSH Assessment/Plan All Active Problems (Last Reviewed 11/20/18 @ 06:36 by Maegan Jorge) Tension pneumothorax (Acute) Elevated troponin I level (Acute) Dyspnea (Acute) Acute respiratory failure with hypoxia (Acute) Back pain (Acute) 1. Acute hypoxic respiratory failure secondary to tension pneumothorax on the left and a left lower lobe immunity acquired pneumonia/severe bilateral emphysema/tobacco abuse/right upper lobe nodule -Continue with Levaquin -Chest tube placed, will place it on wall suction, can repeat chest x-ray in the morning -A year ago in August she had a right upper lobe mass of around 7 mm she will need to follow-up with outpatient pulmonology for follow-up -Discussed tobacco cessation -Appreciate pulmonology's assistance -Continue with her home medications once her medication list is updated 2. Elevated troponin/HTN -Initial troponin was 0.388, EKG was unremarkable and she is not complaining of any chest pain -Repeat troponins went to 1.25, this is likely related to the severe hypoxia however will obtain an echo if there is any wall motion abnormality at that time we will discuss the case with cardiology -We will restart her blood pressure medications once they are confirmed in the chart 3. Alcohol abuse -She drinks about 7-10 beers a day, and she will not go to rehab -She will be provided with 2 beers per meal DVT: Lovenox Inpatient E&M: 29734 Init Hosp L3
[2019-10-24] MEDS: oxyCODONE 5 MG Tablet PO ×2 (17:11→23:18)
[2019-10-24] MEDS: Ipratropium/Albuterol Sulfate 3 ML AMPUL.NEB INHALATION ×2 (19:59→23:30)
[2019-10-25] VITALS (27 sets, daily range): BP systolic 138–176; BP diastolic 80–117; PULSE 79–109; RESP 12–34; TEMP 36.6–36.9; O2SAT 86–100
[2019-10-25 00:54] LABS: Magnesium 1.9 mg/dL (1.6-2.6)
[2019-10-25] MEDS: oxyCODONE 5 MG Tablet PO ×2 (05:06→23:38)
[2019-10-25] MEDS: Ipratropium/Albuterol Sulfate 3 ML AMPUL.NEB INHALATION ×5 (05:07→19:03)
--- NOTE | 2019-10-25 05:55 | RAD_ITS ---
HISTORY: chest tube ADDITIONAL HISTORY: None provided. EXAMINATION/TECHNIQUE: XR Chest 1 View AP/PA Number of images including paperwork: 1 COMPARISON: 10/24/2019 FINDINGS: LUNGS AND PLEURA: Interstitial prominence and mild basilar opacities without gross change given differences in lung volumes and technique. Possible trace residual left apical pneumothorax. CARDIAC SILHOUETTE: Stable. MEDIASTINUM AND ROLAND: Stable. UPPER ABDOMEN: Unremarkable. SKELETON AND SOFT TISSUES: No acute skeletal findings. Left chest wall soft tissue gas has increased. OTHER DEVICES AND HARDWARE: Left chest tube remains. RAD/Chest 1 View (Portable) IMPRESSION: Possible trace left apical pneumothorax. Increasing left chest wall soft tissue gas. at 0817 Reported and signed by: Heena Wang MD Electronically Signed: Heena Wang MD at 8:16 EDT Tel , Service support ,
[2019-10-25 06:19] LABS: Absolute Lymphocyte Count 0.52 X10^3/uL (0.83-4.51); Absolute Neutrophil Count 6.6 X10^3/uL (2.0-7.7); Hematocrit 37.2 % (37-47); Hemoglobin 12.3 g/dL (12.0-15.0); Lymphocyte # 0.52 X10^3/ul (4.0); Lymphocyte % 6.6 % (19-41); Mean Corp Hgb Conc 33.1 g/dL (32-36); Mean Corpuscular Hgb 31.8 pg (27.0-32.0); Mean Corpuscular Volume 96.1 fL (81-99); Mean Platelet Vol. 9.1 fl (6.2-12.0); Monocyte% 8.9 % (0-10); NRBC Flagged by Analyzer 0 % (0-5); Neutrophil # 6.57 X10^3/uL (2.7-7.7); Neutrophil % 83.9 % (47-70); POSITIVE DIFFERENTIAL YES; Platelet Count 336 K/mm3 (150-450); RBC Distribution Width CV 13.1 % (11.6-14.6); RBC Distribution Width SD 46.5 fl (35.1-43.9); Red Blood Count 3.87 M/mm3 (4.2-5.4); White Blood Count 7.8 K/mm3 (4.4-11.0)
[2019-10-25 06:25] LABS: Differential Indicated SCAN CRITERIA MET
[2019-10-25 06:41] LABS: Anion Gap 1 (5-15); BUN 9 mg/dL (7-18); BUN/Creat Ratio 20.8 RATIO (10-20); Calcium,Total 8.2 mg/dL (8.5-10.1); Chloride 101 mmol/L (98-107); Creatinine, Serum 0.43 mg/dL (0.55-1.02); EST Glomerular Filtration Rate 155 mL/min (>60); Est Glom Filt Rate - Afr Amer 188 mL/min (>60); Estimated Creatinine Clearance 46.52 ml/min; Glucose 118 mg/dL (74-106); Potassium 4.8 mmol/L (3.5-5.1); Sodium Level 131 mmol/L (136-145)
[2019-10-25 06:47] LABS: Atypical Lymphocyte RARE %; Differential Comment SCANNED
--- NOTE | 2019-10-25 08:04 | PCM.PN.PUL ---
Patient Problems: Active and Suspected Problems (Last Reviewed 11/20/18 @ 06:36 by Maegan Jorge) Tension pneumothorax (Acute) Elevated troponin I level (Acute) Dyspnea (Acute) Acute respiratory failure with hypoxia (Acute) Subjective: The patient was seen and examined at the bedside this morning. Events from the last 24 hours have been reviewed. The patient is currently afebrile and hemodynamically stable. She appears to be much more short of breath this morning stating that she recently moved around in bed and then became dyspneic. She did report that she had just recently received an aerosol treatment. I did personally speak with the patient regarding her CODE STATUS, and specifically if the need would arise for intubation and/or advanced cardiac life support, if she would want aggressive measures undertaken. The patient did confirm that she would like to be a full CODE STATUS. Objective: The patient's most recent lab work, culture data and imaging studies have all been personally reviewed. Surface echocardiogram revealed normal LV size with an ejection fraction of 55%. Blood cultures are pending. - Physical Exam Vitals/I&O's: Vital Signs Temp Pulse Resp BP Pulse Ox 98.3 F 81 32 H 138/100 H 96 10/25/19 04:45 10/25/19 07:00 10/25/19 05:05 10/25/19 04:45 10/25/19 05:05 Oxygen Flow Rate (L/min) [6] 15 Oxygen Flow Rate (L/min) [4] 15 Oxygen Flow Rate (L/min) [3] 15 Oxygen Flow Rate (L/min) [2] 15 Oxygen Flow Rate (L/min) [1 ( 15 Initial Baseline)] Oxygen Flow Rate (L/min) 10 Oxygen Delivery Method [6] Non-Rebreather Oxygen Delivery Method [5] Non-Rebreather Oxygen Delivery Method [4] Non-Rebreather Oxygen Delivery Method [3] Non-Rebreather Oxygen Delivery Method [2] Non-Rebreather Oxygen Delivery Method [1 ( Non-Rebreather Initial Baseline)] Oxygen Delivery Method Nasal Cannula Weight: 117 lb 6.4 oz Body Mass Index (BMI) 18.9 Intake and Output for Last 24 Hours 10/23/19 10/24/19 10/25/19 23:59 23:59 23:59 Intake Total 2388.33 / 2388.33 Output Total 1425 / 1425 350 / 350 Balance 963.33 / 963.33 -350 / -350 General: Alert, - - Appears uncomfortable and mildly distressed from a respiratory perspective. HEENT: Atraumatic, Normocephalic Oral: Moist Mucosa Neck: Supple, No Nodes, Trachea Midline Lungs: Diminished, Short of Breath, Tachypneic, Wheezes, - - Increased AP diameter. Stable appearing left-sided chest tube. No air leak noted in atrium. Cardiovascular: Normal S1, Normal S2, Tachycardic Abdomen: Bowel Sounds Present, Soft, Non Tender Extremities: No clubbing, No cyanosis, No edema Skin: No breakdown Musculoskeletal: No Tenderness to Palpation of Joints or Extremities, Cachexia Lymphatic: No Cervical, Supraclavicular, or Inguinal Adenopathy Neurological: Cranial nerves II-XII grossly intact, Neuro grossly intact Psych/Mental Status: Anxious Labs (Last 48 Hours) 10/24/19 10/24/19 10/24/19 07:24 07:24 07:24 WBC 14.1 H RBC 4.48 Hgb 14.6 Hct 43.1 MCV 96.2 MCH 32.6 H MCHC 33.9 RDW Std Deviation 46.7 H RDW Coeff of Oral 13.2 Plt Count 414 MPV 9.1 Immature Gran % (Auto) 0.600 Neut % (Auto) 78.4 H Lymph % (Auto) 11.1 L [place] % (Auto) 6.6 Eos % (Auto) 3.0 Baso % (Auto) 0.3 Absolute Neuts (auto) 11.1 H Absolute Lymphs (auto) 1.57 Nucleated RBC % 0 Differential Comment Atypical Lymphocytes PT 14.0 INR 1.1 APTT 25.3 D-Dimer Quant (PE/DVT) 0.38 Sodium 132 L Potassium 4.4 Chloride 100 Carbon Dioxide 29.0 Anion Gap 3 L BUN 10 Creatinine 0.59 Estim Creat Clear Calc 47.79 Est GFR (MDRD) Af Amer 131 Est GFR (MDRD) Non-Af 108 BUN/Creatinine Ratio 16.9 Glucose 156 H Lactic Acid Calcium 8.1 L Magnesium Total Bilirubin 0.70 AST 19 ALT 19 Alkaline Phosphatase 76 Troponin I 0.338 H B-Natriuretic Peptide Total Protein 7.4 Albumin 3.7 Globulin 3.7 Albumin/Globulin Ratio 1.0 07/10/24/19 10/24/19 07:24 07:24 11:52 WBC RBC Hgb Hct MCV MCH MCHC RDW Std Deviation RDW Coeff of Oral Plt Count MPV Immature Gran % (Auto) Neut % (Auto) Lymph % (Auto) [place] % (Auto) Eos % (Auto) Baso % (Auto) Absolute Neuts (auto) Absolute Lymphs (auto) Nucleated RBC % Differential Comment Atypical Lymphocytes PT INR APTT D-Dimer Quant (PE/DVT) Sodium Potassium Chloride Carbon Dioxide Anion Gap BUN Creatinine Estim Creat Clear Calc Est GFR (MDRD) Af Amer Est GFR (MDRD) Non-Af BUN/Creatinine Ratio Glucose Lactic Acid 1.2 Calcium Magnesium Total Bilirubin AST ALT Alkaline Phosphatase Troponin I 1.270 H* B-Natriuretic Peptide 102.6 H Total Protein Albumin Globulin Albumin/Globulin Ratio 10/24/19 10/24/19 10/24/19 15:02 18:09 18:09 WBC RBC Hgb Hct MCV MCH MCHC RDW Std Deviation RDW Coeff of Oral Plt Count MPV Immature Gran % (Auto) Neut % (Auto) Lymph % (Auto) [place] % (Auto) Eos % (Auto) Baso % (Auto) Absolute Neuts (auto) Absolute Lymphs (auto) Nucleated RBC % Differential Comment Atypical Lymphocytes PT INR APTT D-Dimer Quant (PE/DVT) Sodium Potassium Chloride Carbon Dioxide Anion Gap BUN Creatinine Estim Creat Clear Calc Est GFR (MDRD) Af Amer Est GFR (MDRD) Non-Af BUN/Creatinine Ratio Glucose Lactic Acid Calcium Magnesium 1.9 Total Bilirubin AST ALT Alkaline Phosphatase Troponin I 1.250 H* 1.190 H* B-Natriuretic Peptide Total Protein Albumin Globulin Albumin/Globulin Ratio 10/25/19 10/25/19 05:57 06:04 WBC 7.8 RBC 3.87 L Hgb 12.3 Hct 37.2 MCV 96.1 MCH 31.8 MCHC 33.1 RDW Std Deviation 46.5 H RDW Coeff of Oral 13.1 Plt Count 336 MPV 9.1 Immature Gran % (Auto) 0.600 Neut % (Auto) 83.9 H Lymph % (Auto) 6.6 L [place] % (Auto) 8.9 Eos % (Auto) 0.0 Baso % (Auto) 0.0 Absolute Neuts (auto) 6.6 Absolute Lymphs (auto) 0.52 L Nucleated RBC % 0 Differential Comment SCANNED Atypical Lymphocytes RARE PT INR APTT D-Dimer Quant (PE/DVT) Sodium 131 L Potassium 4.8 Chloride 101 Carbon Dioxide 29.0 Anion Gap 1 L BUN 9 Creatinine 0.43 L Estim Creat Clear Calc 46.52 Est GFR (MDRD) Af Amer 188 Est GFR (MDRD) Non-Af 155 BUN/Creatinine Ratio 20.8 H Glucose 118 H Lactic Acid Calcium 8.2 L Magnesium Total Bilirubin AST ALT Alkaline Phosphatase Troponin I B-Natriuretic Peptide Total Protein Albumin Globulin Albumin/Globulin Ratio Clinical Impression(s) from Imaging Studies Chest X-Ray 10/24/19 07:21 IMPRESSION: Left 15-20% pneumothorax. Mild shift of the heart and mediastinal structures towards the right side. An element of the tension should be ruled out. Electronically Signed: Roni Sanchez, at 8:17 EDT , Service support , Chest X-Ray 10/24/19 08:06 IMPRESSION: Status post left chest tube insertion with the resolution of the left-sided pneumothorax. The heart and mediastinal structures are now in the midline. Residual increased markings in the left lung as described. Electronically Signed: Roni Sanchez, at 8:36 EDT , Service support , Chest CTA 10/24/19 08:25 IMPRESSION: Status post left chest tube placement with the tip in the left apex. Tiny residual left apical pneumothorax. Diffuse emphysematous changes in both lungs worse in the upper lobes with bullous formation. Infiltration in the left lower lobe with bibasilar scarring. Electronically Signed: Roni Sanchez at 9:40 EDT , Service support , Current Medications Acetaminophen (Tylenol) 650 mg PO Q6H PRN PRN PRN Reason: Pain Score 1-10/Temp > 100.7 F Albuterol Sulfate (Ventolin Aerosols) 2.5 mg INHALATION Q6H PRN PRN PRN Reason: sob/wheezing Albuterol/Ipratropium (Duoneb) 3 ml INHALATION Q4HWA.RT EDWARD Last Admin: 10/25/19 07:14 Dose: 3 ml Documented by: Enoxaparin Sodium (Lovenox) 40 mg SC DAILY EDWARD Levofloxacin (Levaquin Iv) 750 mg in 150 mls @ 100 mls/hr IV Q24 EDWARD Sodium Chloride () 1,000 mls @ 100 mls/hr IV .Q10H EDWARD Last Admin: 10/24/19 23:22 Dose: 100 mls/hr Documented by: Sodium Chloride () 250 mls @ 15 mls/hr IV .[id number] PRN PRN Reason: Saline Flush Sodium Chloride () 250 mls @ 15 mls/hr IV .[id number] PRN PRN Reason: Additional IVPB Infusion Ondansetron HCl (Zofran) 4 mg IV Q8H PRN PRN PRN Reason: NAUSEA/VOMITING Oxycodone HCl (Oxyir) 5 mg PO Q6H PRN PRN PRN Reason: Pain Score 4-10/10 Last Admin: 10/25/19 05:06 Dose: 5 mg Documented by: Sodium Chloride () 10 - 40 ml IV UD PRN PRN Reason: SALINE FLUSH Medical Necessity - Tobacco Use Smoking Status: Current every day smoker Tobacco Use: Cigarettes Assessment/Plan All Active Problems (Last Reviewed 11/20/18 @ 06:36 by Maegan Jorge) Tension pneumothorax (Acute) Elevated troponin I level (Acute) Dyspnea (Acute) Acute respiratory failure with hypoxia (Acute) Back pain (Acute) RECOMMENDATIONS: 1. Continue chest tube to wall suction. 2. Obtain repeat plain film chest x-ray. 3. Continue empiric antimicrobials. Check strep and urine Legionella antigens along with MRSA screen. Obtain sputum and sent for culture, if feasible. 4. Continue scheduled bronchodilator therapy. Start IV steroids today. 5. Continue supplemental oxygen and wean to maintain saturations at or above 90%. IMPRESSIONS: 1. Acute hypoxemic respiratory failure due to pneumothorax Unclear if the patient's presenting pneumothorax represents a primary spontaneous etiology versus traumatic from questionable fall. She does have underlying bilateral emphysematous changes and bullous disease, primarily in the upper lobes. Her presentation may be the consequence of ruptured bullae. Regardless, she has undergone tube thoracotomy. I would recommend continuing the patient on wall suction. We will obtain another chest x-ray to confirm appropriate positioning of chest tube. The patient will be continued on scheduled bronchodilators, IV steroids and supplemental oxygen as well. 2. Presumptive COPD with extensive tobacco abuse history/right upper lobe pulmonary nodule The patient has an extensive smoking history and continues to smoke daily. Although she was previously referred to the pulmonary clinic in 2019, the patient failed to present for her office visit. Upon discharge, the patient would likely benefit from outpatient pulmonary follow-up so that baseline pulmonary function studies can be obtained. In addition, the patient has a known right upper lobe lung nodule, which will need to be followed longitudinally. 3. Questionable community-acquired pneumonia The patient presented with radiographic evidence of a left lower lobe infiltrate. Given the patient's elevated white count, would recommend continuing empiric antimicrobials. 4. History of alcohol dependency The patient reports a longstanding history of daily alcohol use, typically 6+ beers per day. She will need to be monitored closely for any alcohol withdrawal symptoms. CODE status: Discussed CODE status at length including difference between FULL code, DNR-CCA and DNR-CC status. Following discussions about the differences in these status, patient requested full CODE STATUS. Advanced Care Planning Face to Face Time: 12 minutes This note was generated with [employer] dictation software. It may contain incorrect words, spelling, and punctuation that were not noted in checking the note before signing. Inpatient E&M: 09618 Subs Hosp L3 Procedures: 67904 Advncd Care Plan 30 Min
--- NOTE | 2019-10-25 08:34 | RAD_ITS ---
STUDY: X-RAY CHEST REASON FOR EXAM: Female, 64 years old. Severe shortness of breath and respiratory distress, history of pneumothorax. TECHNIQUE: Single AP portable view of the chest. COMPARISON: 11/13/2019, 5:26 AM. FINDINGS: The left-sided chest tube is in stable position with the tip in the left chest apex. Prominent markings bilaterally are again seen essentially unchanged since the prior examination. There is no definite pneumothorax. There may be trace of left pleural effusion. Normal size heart. Normal mediastinum and tripp. Normal visualized pulmonary arteries. There is atherosclerotic calcification of the aortic arch with tortuosity. Stable bone structures. Residual left subcutaneous emphysema unchanged. There is no demonstrated abnormality of the visualized soft tissue structures of the upper abdomen. RAD/Chest 1 View (Portable) IMPRESSION: Overall, no significant change since previous exam. Left chest tube in stable position. Prominent markings unchanged. Residual left subcutaneous emphysema. No evidence of pneumothorax. Electronically Signed: Isreal Schmidt MD at 10:04 EDT Tel , Service support ,
[2019-10-25] MEDS: 0.9% Normal Saline 1,000 ML 100 ML IV ×2 (08:49→20:14)
--- NOTE | 2019-10-25 09:04 | PN_ITS ---
Patient Problems: Active and Suspected Problems (Last Reviewed 11/20/18 @ 06:36 by Magean Jorge) Tension pneumothorax (Acute) Elevated troponin I level (Acute) Dyspnea (Acute) Acute respiratory failure with hypoxia (Acute) Subjective: Feels short of breath, and she is working a little bit hard today. Pain is controlled at the chest tube site Vitals/I&O's: Vital Signs Temp Pulse Resp BP Pulse Ox 98.3 F 84 22 H 138/100 H 100 10/25/19 04:45 10/25/19 07:14 10/25/19 07:14 10/25/19 04:45 10/25/19 07:14 Oxygen Flow Rate (L/min) [6] 15 Oxygen Flow Rate (L/min) [4] 15 Oxygen Flow Rate (L/min) [3] 15 Oxygen Flow Rate (L/min) [2] 15 Oxygen Flow Rate (L/min) [1 ( 15 Initial Baseline)] Oxygen Flow Rate (L/min) 9.5 Oxygen Delivery Method [6] Non-Rebreather Oxygen Delivery Method [5] Non-Rebreather Oxygen Delivery Method [4] Non-Rebreather Oxygen Delivery Method [3] Non-Rebreather Oxygen Delivery Method [2] Non-Rebreather Oxygen Delivery Method [1 ( Non-Rebreather Initial Baseline)] Oxygen Delivery Method Nasal Cannula Weight: 117 lb 6.4 oz Body Mass Index (BMI) 18.9 Intake and Output for Last 24 Hours 10/23/19 10/24/19 10/25/19 23:59 23:59 23:59 Intake Total 2388.33 / 2388.33 945 / 945 Output Total 1425 / 1425 350 / 350 Balance 963.33 / 963.33 595 / 595 General: Alert, Oriented x3, Cooperative, No apparent distress HEENT: Atraumatic, PERRLA, EOMI, Normocephalic Oral: Moist Mucosa Neck: Supple, No JVD Lungs: Significant rhonchi bilaterally with normal air movement Cardiovascular: Regular rate, Regular Rhythm, Normal S1, Normal S2, No murmurs Abdomen: Soft, Non Tender, Non-Distended, No Hepato-splenomegaly Extremities: No edema, Capillary Refill Less than 3 Seconds Skin: No rashes, No breakdown Neurological: Neuro grossly intact, Sensory exam intact to light touch and pain Psych/Mental Status: Normal Affect, Appropriate Laboratory Results 10/24/19 11:52: Troponin I 1.270 H* 10/24/19 15:02: Troponin I 1.250 H* 10/24/19 18:09: Troponin I 1.190 H* 10/24/19 18:09: Magnesium 1.9 10/25/19 05:57: WBC 7.8, RBC 3.87 L, Hgb 12.3, Hct 37.2, MCV 96.1, MCH 31.8, MCHC 33.1, RDW Std Deviation 46.5 H, RDW Coeff of Oral 13.1, Plt Count 336, MPV 9.1, Immature Gran % (Auto) 0.600, Neut % (Auto) 83.9 H, Lymph % (Auto) 6.6 L, [place] % (Auto) 8.9, Eos % (Auto) 0.0, Baso % (Auto) 0.0, Absolute Neuts (auto) 6.6, Absolute Lymphs (auto) 0.52 L, Nucleated RBC % 0, Differential Comment SCANNED, Atypical Lymphocytes RARE 10/25/19 06:04: Sodium 131 L, Potassium 4.8, Chloride 101, Carbon Dioxide 29.0, Anion Gap 1 L, BUN 9, Creatinine 0.43 L, Estim Creat Clear Calc 46.52, Est GFR (MDRD) Af Amer 188, Est GFR (MDRD) Non-Af 155, BUN/Creatinine Ratio 20.8 H, Glu cose 118 H, Calcium 8.2 L Current Medications Acetaminophen (Tylenol) 650 mg PO Q6H PRN PRN PRN Reason: Pain Score 1-10/Temp > 100.7 F Albuterol Sulfate (Ventolin Aerosols) 2.5 mg INHALATION Q6H PRN PRN PRN Reason: sob/wheezing Albuterol/Ipratropium (Duoneb) 3 ml INHALATION Q4HWA.RT EDWARD Last Admin: 10/25/19 07:14 Dose: 3 ml Documented by: Enoxaparin Sodium (Lovenox) 40 mg SC DAILY EDWARD Levofloxacin (Levaquin Iv) 750 mg in 150 mls @ 100 mls/hr IV Q24 EDWRAD Sodium Chloride () 1,000 mls @ 100 mls/hr IV .Q10H EDWARD Last Admin: 10/25/19 08:49 Dose: 100 mls/hr Documented by: Sodium Chloride () 250 mls @ 15 mls/hr IV .[id number] PRN PRN Reason: Saline Flush Sodium Chloride () 250 mls @ 15 mls/hr IV .[id number] PRN PRN Reason: Additional IVPB Infusion Methylprednisolone (Solu-Medrol) 40 mg IV Q6 EDWARD Ondansetron HCl (Zofran) 4 mg IV Q8H PRN PRN PRN Reason: NAUSEA/VOMITING Oxycodone HCl (Oxyir) 5 mg PO Q6H PRN PRN PRN Reason: Pain Score 4-10/10 Last Admin: 10/25/19 05:06 Dose: 5 mg Documented by: Sodium Chloride () 10 - 40 ml IV UD PRN PRN Reason: SALINE FLUSH STROKE Vital Signs/Narrative: Vital Signs Pulse Resp Pulse Ox 10/25/19 07:14 84 22 H 100 10/25/19 07:00 81 10/25/19 05:05 102 H 32 H 96 Medical Necessity - Tobacco Use Smoking Status: Current every day smoker Tobacco Use: Cigarettes Assessment/Plan All Active Problems (Last Reviewed 11/20/18 @ 06:36 by Maegan Jorge) Tension pneumothorax (Acute) Elevated troponin I level (Acute) Dyspnea (Acute) Acute respiratory failure with hypoxia (Acute) Back pain (Acute) 1. Acute hypoxic respiratory failure secondary to tension pneumothorax on the left and a left lower lobe immunity acquired pneumonia/severe bilateral emphysema with a COPD exacerbation/tobacco abuse/right upper lobe nodule -Continue with Levaquin -Chest tube placed, will place it on wall suction, can repeat chest x-ray in the morning -A year ago in August she had a right upper lobe mass of around 7 mm she will need to follow-up with outpatient pulmonology for follow-up -Discussed tobacco cessation -Appreciate pulmonology's assistance -Continue with her home medications once her medication list is updated -Continue with duo nebs as well as IV steroids will be started today also continue with incentive spirometer and encouraged to take deep breaths given her chest tube. 2. Elevated troponin/HTN -Initial troponin was 0.388, EKG was unremarkable and she is not complaining of any chest pain -Repeat troponins went to 1.25, this is likely related to the severe hypoxia t roponin did trend down to 1.190, and an echo had an EF of 55% with normal diastolic function without a wall motion abnormality therefore this elevated troponin is truly related to her hypoxia and her tension pneumothorax -We will restart her blood pressure medications once they are confirmed in the chart 3. Alcohol abuse -She drinks about 7-10 beers a day, and she will not go to rehab -She will be provided with 2 beers per meal DVT: Lovenox Inpatient E&M: 28889 Subs Hosp L2
[2019-10-25] MEDS: levoFLOXacin IV 750 MG/150 ML BAG 100 MG IV (09:16)
[2019-10-25] MEDS: Enoxaparin 40 MG/0.4 ML Syringe SC (09:16)
[2019-10-25] MEDS: Albuterol 2.5 MG/3 ML VIAL.NEB. INHALATION (09:29)
[2019-10-25 11:21] LABS: M R Staph aureus DNA By PCR Negative (Negative); Probe Check PASS; Specimen Processing Control PASS
[2019-10-25 11:30] LABS: Allen Test Positive; Base Excess 1 mmol/L (-2 to +2); Bicarbonate 27.2 mmol/L (22-26); FI02 8; O2 Delivery Device Cannula; SITE R Brach; SO2 53 % (95-99); Total Carbon Dioxide 29 mmol/L; pCO2 51.1 mmHg (35-45); pH 7.33 (7.35-7.45)
--- NOTE | 2019-10-25 11:30 | CPS ---
Quoc called Dr Bentley with mixed venous results, wants pt moved to ICU where BIPAP will be started. If pt can't tolerate or it doesn't help pt improve then discuss intubation with patient. Pt currently states she wants every thing done for her.
--- NOTE | 2019-10-25 11:52 | NURSING ---
1100 order for blood gas. spo2 86% on 8l. new order to transfer to icu to trial bipap. granddaughter on phone and updated.
--- NOTE | 2019-10-25 12:04 | NURSING ---
pt's sig other tariq called and updated on pt's condition and transfer. pt to icu via bed with charge loader.
[2019-10-25 12:42] LABS: Blood Gas Specimen Type VEN
[2019-10-25 12:44] LABS: Time Given 1120
[2019-10-25 12:45] LABS: PO2 31 mmHG (75-100)
--- NOTE | 2019-10-25 13:18 | CASEMGMT ---
RADHA BOSWELL unable to complete CM assessment on this date d/t pt medically unstable and transfer to ICU. CM will attempt again on 10/27/2019. SStaten RADHA BOSWELL
[2019-10-25] MEDS: LORazepam 2 MG/ML Syringe IV (13:36)
[2019-10-25 14:11] LABS: Allen Test Positive; Base Excess 1 mmol/L (-2 to +2); Bicarbonate 26.5 mmol/L (22-26); Blood Gas Specimen Type ART; FI02 30; O2 Delivery Device BiPAP; PO2 72 mmHG (75-100); SITE L Radial; SO2 94 % (95-99); Total Carbon Dioxide 28 mmol/L; pCO2 44.9 mmHg (35-45); pH 7.38 (7.35-7.45)
[2019-10-25 14:21] LABS: EPAP 5; IPAP 10; Time Given 1356
[2019-10-25] MEDS: 0.9% Saline Lock 10 ML Syringe IV (23:38)
[2019-10-26] VITALS (34 sets, daily range): BP systolic 118–175; BP diastolic 70–108; PULSE 68–165; RESP 12–43; TEMP 36–37.6; O2SAT 92–99
--- NOTE | 2019-10-26 04:45 | NURSING ---
RN CAME INTO ROOM, PATIENT HAVING COUGHING SPELL. 02 82% ON 4LNC. RR UP TO 30S, HR 140S. PLACED BACK ON BIPAP AND CALLED [facility]AT[facility] HEARD THROUGHOUT. STARTED TO IMPROVE WITH BIPAP AND BREATHING TREATMENT.
[2019-10-26] MEDS: 0.9% Normal Saline 1,000 ML 100 ML IV ×2 (04:51→15:24)
[2019-10-26] MEDS: 0.9% Saline Lock 10 ML Syringe IV (04:51)
[2019-10-26] MEDS: Albuterol 2.5 MG/3 ML VIAL.NEB. INHALATION (04:58)
--- NOTE | 2019-10-26 06:08 | PN_ITS ---
Subjective: The patient was seen and examined at the bedside this morning. Events from the last 24 hours have been reviewed. The patient is currently afebrile and hemodynamically stable. She was transferred from the PCU to the medical intensive care unit yesterday due to increased work of breathing. The patient did require BiPAP utilization. Overnight, the patient was able to be given a break from BiPAP and was maintaining appropriate oxygen saturations on 4 L/min. Early this morning, the patient developed a significant coughing spell which led to desaturation and tachypnea. An aerosol treatment was provided and the patient was placed back on BiPAP therapy. This morning, the patient does report overall improvement in her perceived shortness of breath. Objective: The patient's most recent lab work, culture data and imaging studies have all been personally reviewed. Surface echocardiogram revealed normal LV size with an ejection fraction of 55%. Strep and urine Legionella antigens were negative. MRSA screen was negative. Blood and sputum cultures are pending. General: Alert, Cooperative, - - Sitting upright in bed with BiPAP in place. HEENT: Atraumatic, PERRLA, Normocephalic Oral: Moist Mucosa Neck: Supple, No Nodes, Trachea Midline Lungs: - - Globally diminished air movement bilaterally with expiratory wheezes, although much improved from yesterday. Increased AP diameter with prolonged expiratory phase. Left-sided chest tube remains in place. No air leak noted in the atrium. Cardiovascular: Regular rate, Regular Rhythm Abdomen: Bowel Sounds Present, Soft, Non Tender Extremities: No clubbing, No cyanosis, No edema Skin: No breakdown Musculoskeletal: Cachexia, - - Pain at chest tube insertion site Lymphatic: No Cervical, Supraclavicular, or Inguinal Adenopathy Neurological: Cranial nerves II-XII grossly intact, Neuro grossly intact Psych/Mental Status: Normal Affect, Appropriate Vital Signs Temp Pulse Resp BP Pulse Ox 97.4 F L 97 22 H 158/104 H 97 10/26/19 04:00 10/26/19 06:00 10/26/19 06:00 10/26/19 06:00 10/26/19 06:00 Oxygen Flow Rate (L/min) [6] 15 Oxygen Flow Rate (L/min) [4] 15 Oxygen Flow Rate (L/min) [3] 15 Oxygen Flow Rate (L/min) [2] 15 Oxygen Flow Rate (L/min) [1 ( 15 Initial Baseline)] Oxygen Flow Rate (L/min) 4 Oxygen Delivery Method [6] Non-Rebreather Oxygen Delivery Method [5] Non-Rebreather Oxygen Delivery Method [4] Non-Rebreather Oxygen Delivery Method [3] Non-Rebreather Oxygen Delivery Method [2] Non-Rebreather Oxygen Delivery Method [1 ( Non-Rebreather Initial Baseline)] Oxygen Delivery Method Bi-pap Weight: 114 lb 3.191 oz Body Mass Index (BMI) 18.9 Intake and Output for Last 24 Hours 10/24/19 10/25/19 10/26/19 23:59 23:59 23:59 Intake Total 2388.33 / 2388.33 2485 / 2485 861.67 / 861.67 Output Total 1425 / 1425 2365 / 2365 865 / 865 Balance 963.33 / 963.33 120 / 120 -3.33 / -3.33 Labs (Last 48 Hours) 10/24/19 10/24/19 10/24/19 07:24 07:24 07:24 WBC 14.1 H RBC 4.48 Hgb 14.6 Hct 43.1 MCV 96.2 MCH 32.6 H MCHC 33.9 RDW Std Deviation 46.7 H RDW Coeff of Oral 13.2 Plt Count 414 MPV 9.1 Immature Gran % (Auto) 0.600 Neut % (Auto) 78.4 H Lymph % (Auto) 11.1 L [place] % (Auto) 6.6 Eos % (Auto) 3.0 Baso % (Auto) 0.3 Absolute Neuts (auto) 11.1 H Absolute Lymphs (auto) 1.57 Nucleated RBC % 0 Differential Comment Atypical Lymphocytes PT 14.0 INR 1.1 APTT 25.3 D-Dimer Quant (PE/DVT) 0.38 Specimen Type Sample Site pH Bicarbonate Actual Total CO2 Base Excess O2 Saturation O2 % ABG pCO2 ABG pO2 Ronan Test Respiration Rate O2 Delivery Device Liter Flow EPAP IPAP Blood Gas Notified Whom Blood Gas Notified Time Sodium 132 L Potassium 4.4 Chloride 100 Carbon Dioxide 29.0 Anion Gap 3 L BUN 10 Creatinine 0.59 Estim Creat Clear Calc 47.79 Est GFR (MDRD) Af Amer 131 Est GFR (MDRD) Non-Af 108 BUN/Creatinine Ratio 16.9 Glucose 156 H Lactic Acid Calcium 8.1 L Magnesium Total Bilirubin 0.70 AST 19 ALT 19 Alkaline Phosphatase 76 Troponin I 0.338 H B-Natriuretic Peptide Total Protein 7.4 Albumin 3.7 Globulin 3.7 Albumin/Globulin Ratio 1.0 MRSA (PCR) 10/24/19 10/24/19 10/24/19 07:24 07:24 11:52 WBC RBC Hgb Hct MCV MCH MCHC RDW Std Deviation RDW Coeff of Oral Plt Count MPV Immature Gran % (Auto) Neut % (Auto) Lymph % (Auto) [place] % (Auto) Eos % (Auto) Baso % (Auto) Absolute Neuts (auto) Absolute Lymphs (auto) Nucleated RBC % Differential Comment Atypical Lymphocytes PT INR APTT D-Dimer Quant (PE/DVT) Specimen Type Sample Site pH Bicarbonate Actual Total CO2 Base Excess O2 Saturation O2 % ABG pCO2 ABG pO2 Ronan Test Respiration Rate O2 Delivery Device Liter Flow EPAP IPAP Blood Gas Notified Whom Blood Gas Notified Time Sodium Potassium Chloride Carbon Dioxide Anion Gap BUN Creatinine Estim Creat Clear Calc Est GFR (MDRD) Af Amer Est GFR (MDRD) Non-Af BUN/Creatinine Ratio Glucose Lactic Acid 1.2 Calcium Magnesium Total Bilirubin AST ALT Alkaline Phosphatase Troponin I 1.270 H* B-Natriuretic Peptide 102.6 H Total Protein Albumin Globulin Albumin/Globulin Ratio MRSA (PCR) 10/24/19 10/24/19 10/24/19 15:02 18:09 18:09 WBC RBC Hgb Hct MCV MCH MCHC RDW Std Deviation RDW Coeff of Oral Plt Count MPV Immature Gran % (Auto) Neut % (Auto) Lymph % (Auto) [place] % (Auto) Eos % (Auto) Baso % (Auto) Absolute Neuts (auto) Absolute Lymphs (auto) Nucleated RBC % Differential Comment Atypical Lymphocytes PT INR APTT D-Dimer Quant (PE/DVT) Specimen Type Sample Site pH Bicarbonate Actual Total CO2 Base Excess O2 Saturation O2 % ABG pCO2 ABG pO2 Ronan Test Respiration Rate O2 Delivery Device Liter Flow EPAP IPAP Blood Gas Notified Whom Blood Gas Notified Time Sodium Potassium Chloride Carbon Dioxide Anion Gap BUN Creatinine Estim Creat Clear Calc Est GFR (MDRD) Af Amer Est GFR (MDRD) Non-Af BUN/Creatinine Ratio Glucose Lactic Acid Calcium Magnesium 1.9 Total Bilirubin AST ALT Alkaline Phosphatase Troponin I 1.250 H* 1.190 H* B-Natriuretic Peptide Total Protein Albumin Globulin Albumin/Globulin Ratio MRSA (PCR) 10/25/19 10/25/19 10/25/19 05:57 06:04 09:00 WBC 7.8 RBC 3.87 L Hgb 12.3 Hct 37.2 MCV 96.1 MCH 31.8 MCHC 33.1 RDW Std Deviation 46.5 H RDW Coeff of Oral 13.1 Plt Count 336 MPV 9.1 Immature Gran % (Auto) 0.600 Neut % (Auto) 83.9 H Lymph % (Auto) 6.6 L [place] % (Auto) 8.9 Eos % (Auto) 0.0 Baso % (Auto) 0.0 Absolute Neuts (auto) 6.6 Absolute Lymphs (auto) 0.52 L Nucleated RBC % 0 Differential Comment SCANNED Atypical Lymphocytes RARE PT INR APTT D-Dimer Quant (PE/DVT) Specimen Type Sample Site pH Bicarbonate Actual Total CO2 Base Excess O2 Saturation O2 % ABG pCO2 ABG pO2 Ronan Test Respiration Rate O2 Delivery Device Liter Flow EPAP IPAP Blood Gas Notified Whom Blood Gas Notified Time Sodium 131 L Potassium 4.8 Chloride 101 Carbon Dioxide 29.0 Anion Gap 1 L BUN 9 Creatinine 0.43 L Estim Creat Clear Calc 46.52 Est GFR (MDRD) Af Amer 188 Est GFR (MDRD) Non-Af 155 BUN/Creatinine Ratio 20.8 H Glucose 118 H Lactic Acid Calcium 8.2 L Magnesium Total Bilirubin AST ALT Alkaline Phosphatase Troponin I B-Natriuretic Peptide Total Protein Albumin Globulin Albumin/Globulin Ratio MRSA (PCR) Negative 10/25/19 10/25/19 11:20 14:02 WBC RBC Hgb Hct MCV MCH MCHC RDW Std Deviation RDW Coeff of Oral Plt Count MPV Immature Gran % (Auto) Neut % (Auto) Lymph % (Auto) [place] % (Auto) Eos % (Auto) Baso % (Auto) Absolute Neuts (auto) Absolute Lymphs (auto) Nucleated RBC % Differential Comment Atypical Lymphocytes PT INR APTT D-Dimer Quant (PE/DVT) Specimen Type MAGI ART Sample Site R Brach L Radial pH 7.33 L 7.38 Bicarbonate Actual 27.2 H 26.5 H Total CO2 29 28 Base Excess 1 1 O2 Saturation 53 L 94 L O2 % 8 30 ABG pCO2 51.1 H 44.9 ABG pO2 31 L* 72 L Ronan Test Positive Positive Respiration Rate 12.0000 O2 Delivery Device Cannula BiPAP Liter Flow 8.0 EPAP 5 IPAP 10 Blood Gas Notified Whom ICU MD ICU MD Blood Gas Notified Time 1120 1356 Sodium Potassium Chloride Carbon Dioxide Anion Gap BUN Creatinine Estim Creat Clear Calc Est GFR (MDRD) Af Amer Est GFR (MDRD) Non-Af BUN/Creatinine Ratio Glucose Lactic Acid Calcium Magnesium Total Bilirubin AST ALT Alkaline Phosphatase Troponin I B-Natriuretic Peptide Total Protein Albumin Globulin Albumin/Globulin Ratio MRSA (PCR) Microbiology 10/25/19 12:45 Urine Catheter - Hare Legionella Antigen - Final 10/25/19 12:45 Urine Catheter - Hare Streptococcus pneumoniae Antigen (M - Final Clinical Impression(s) from Imaging Studies Chest X-Ray 10/24/19 07:21 IMPRESSION: Left 15-20% pneumothorax. Mild shift of the heart and mediastinal structures towards the right side. An element of the tension should be ruled out. Electronically Signed: Roni Sanchez, at 8:17 EDT , Service support , Chest X-Ray 10/24/19 08:06 IMPRESSION: Status post left chest tube insertion with the resolution of the left-sided pneumothorax. The heart and mediastinal structures are now in the midline. Residual increased markings in the left lung as described. Electronically Signed: Roni Sanchez, at 8:36 EDT , Service support , Chest CTA 10/24/19 08:25 IMPRESSION: Status post left chest tube placement with the tip in the left apex. Tiny residual left apical pneumothorax. Diffuse emphysematous changes in both lungs worse in the upper lobes with bullous formation. Infiltration in the left lower lobe with bibasilar scarring. Electronically Signed: Roni Sanchez, at 9:40 EDT , Service support , Chest X-Ray 10/25/19 05:55 IMPRESSION: Possible trace left apical pneumothorax. Increasing left chest wall soft tissue gas. at 0817 Reported and signed by: Heena Wang MD Electronically Signed: Heena Wang MD at 8:16 EDT Tel , Service support , Chest X-Ray 10/25/19 08:34 IMPRESSION: Overall, no significant change since previous exam. Left chest tube in stable position. Prominent markings unchanged. Residual left subcutaneous emphysema. No evidence of pneumothorax. Electronically Signed: Isreal Schmidt MD at 10:04 EDT Tel , Service support , Medical Necessity - Tobacco Use Smoking Status: Current every day smoker Tobacco Use: Cigarettes Assessment/Plan All Active Problems (Last Reviewed 11/20/18 @ 06:36 by Maegan Jorge) Tension pneumothorax (Acute) Elevated troponin I level (Acute) Dyspnea (Acute) Acute respiratory failure with hypoxia (Acute) Back pain (Acute) RECOMMENDATIONS: 1. Continue chest tube to wall suction. 2. I would not consider removing the patient's chest tube until she is able to be maintained off of all noninvasive positive pressure ventilatory support. 3. Continue empiric antimicrobials, scheduled bronchodilators and IV steroids. 4. Continue supplemental oxygen and wean to maintain saturations at or above 90%. 5. Monitor for signs of alcohol withdrawal. Continue thiamine and folate. 6. Continue appropriate ICU prophylaxis. 7. Obtain repeat chest x-ray this morning. IMPRESSIONS: 1. Acute hypoxemic respiratory failure due to pneumothorax Unclear if the patient's presenting pneumothorax represents a primary spontaneous etiology versus traumatic from questionable fall. She does have underlying bilateral emphysematous changes and bullous disease, primarily in the upper lobes. Her presentation may be the consequence of ruptured bullae. Regardless, she has undergone tube thoracotomy. The patient decompensated from a respiratory perspective on October 24, requiring transfer to the ICU and subsequent initiation of BiPAP therapy. I would recommend that her chest tube remain on wall suction yet today. Consideration for chest tube removal will not be undertaken until the patient is able to be weaned completely from all forms of noninvasive positive pressure ventilatory support. For now, continue scheduled bronchodilators, empiric antimicrobials and IV steroids. Continue to wean supplemental oxygen as tolerated. 2. Presumptive COPD with extensive tobacco abuse history/right upper lobe pulmonary nodule The patient has an extensive smoking history and continues to smoke daily. Although she was previously referred to the pulmonary clinic in 2019, the patient failed to present for her office visit. Upon discharge, the patient would likely benefit from outpatient pulmonary follow-up so that baseline pulmonary function studies can be obtained. In addition, the patient has a known right upper lobe lung nodule, which will need to be followed longitudinally. 3. Questionable community-acquired pneumonia The patient presented with radiographic evidence of a left lower lobe infiltrate. She will be continued on therapy for a presumptive COPD exacerbation with scheduled bronchodilators, antimicrobials and IV steroids. 4. History of alcohol dependency/CODE STATUS The patient reports a longstanding history of daily alcohol use, typically 6+ beers per day. She will need to be monitored closely for any alcohol withdrawal symptoms. Continue thiamine and folate accordingly. CODE STATUS was previously discussed and confirmed to be full code. TIME: 35 minutes of critical care time, independent of procedures, was spent addressing the patient's acute hypoxemic respiratory failure, pneumothorax, community-acquired pneumonia, presumptive COPD with exacerbation, history of alcohol dependency, review of all data and collaboration with the care team. [phone]) [phone]: [id number] Critical care first hour
--- NOTE | 2019-10-26 06:09 | RAD_ITS ---
HISTORY: pneumothorax ADDITIONAL HISTORY: None provided. EXAMINATION/TECHNIQUE: XR Chest 1 View AP/PA Number of images including paperwork: 1 COMPARISON: 10/25/2019 FINDINGS: LUNGS AND PLEURA: No dense consolidation. Interstitial prominence appears grossly similar. No sizable pleural effusion or pneumothorax. CARDIAC SILHOUETTE: Unremarkable. MEDIASTINUM AND ROLAND: Unremarkable. UPPER ABDOMEN: Unremarkable. SKELETON AND SOFT TISSUES: No acute skeletal findings. Left chest wall soft tissue gas. OTHER DEVICES AND HARDWARE: Left chest tube appears similar. RAD/Chest 1 View (Portable) IMPRESSION: No significant interval change. at 0648 Reported and signed by: Heena Wang MD Electronically Signed: Heena Wang MD at 6:47 EDT Tel , Service support ,
[2019-10-26] MEDS: Ipratropium/Albuterol Sulfate 3 ML AMPUL.NEB INHALATION ×5 (06:36→23:22)
[2019-10-26] MEDS: LORazepam 1 MG Tablet 2 MG PO (08:28)
[2019-10-26] MEDS: Multivitamins,Ther W-Minerals Tablet 1 TABLET PO (08:29)
[2019-10-26] MEDS: Thiamine Hydrochloride 100 MG Tablet PO (08:29)
[2019-10-26] MEDS: Folic Acid 1 MG Tablet PO (08:29)
--- NOTE | 2019-10-26 09:20 | PCM.PN.HOSP ---
Patient Problems: Active and Suspected Problems (Last Reviewed 11/20/18 @ 06:36 by Maeagn Jorge) Tension pneumothorax (Acute) Elevated troponin I level (Acute) Dyspnea (Acute) Acute respiratory failure with hypoxia (Acute) Subjective: Break from the BiPAP, seems much better this morning compared to yesterday. Vitals/I&O's: Vital Signs Temp Pulse Resp BP Pulse Ox 97.4 F L 92 16 156/108 H 97 10/26/19 04:00 10/26/19 07:00 10/26/19 07:00 10/26/19 07:00 10/26/19 07:00 Oxygen Flow Rate (L/min) [6] 15 Oxygen Flow Rate (L/min) [4] 15 Oxygen Flow Rate (L/min) [3] 15 Oxygen Flow Rate (L/min) [2] 15 Oxygen Flow Rate (L/min) [1 ( 15 Initial Baseline)] Oxygen Flow Rate (L/min) 4 Oxygen Delivery Method [6] Non-Rebreather Oxygen Delivery Method [5] Non-Rebreather Oxygen Delivery Method [4] Non-Rebreather Oxygen Delivery Method [3] Non-Rebreather Oxygen Delivery Method [2] Non-Rebreather Oxygen Delivery Method [1 ( Non-Rebreather Initial Baseline)] Oxygen Delivery Method Nasal Cannula Weight: 114 lb 3.191 oz Body Mass Index (BMI) 18.9 Intake and Output for Last 24 Hours 10/24/19 10/25/19 10/26/19 23:59 23:59 23:59 Intake Total 2388.33 / 2388.33 2485 / 2485 861.67 / 861.67 Output Total 1425 / 1425 2365 / 2365 865 / 865 Balance 963.33 / 963.33 120 / 120 -3.33 / -3.33 General: Alert, Oriented x3, Cooperative, No apparent distress HEENT: Atraumatic, PERRLA, EOMI, Normocephalic Oral: Moist Mucosa Neck: Supple, No JVD Lungs: Moderate rhonchi bilaterally, diminished Cardiovascular: Regular rate, Regular Rhythm, Normal S1, Normal S2, No murmurs Abdomen: Soft, Non Tender, Non-Distended, No Hepato-splenomegaly Extremities: No edema, Capillary Refill Less than 3 Seconds Skin: No rashes, No breakdown Neurological: Neuro grossly intact, Sensory exam intact to light touch and pain Psych/Mental Status: Normal Affect, Appropriate Microbiology Past 72 Hours 10/25/19 12:45 Urine Catheter - Hare Legionella Antigen - Final 10/25/19 12:45 Urine Catheter - Hare Streptococcus pneumoniae Antigen (M - Final Laboratory Results 10/25/19 09:00: MRSA (PCR) Negative 10/25/19 11:20: Specimen Type MAGI, Sample Site R Brach, pH 7.33 L, Bicarbonate Actual 27.2 H, Total CO2 29, Base Excess 1, O2 Saturation 53 L, O2 % 8, ABG pCO2 51.1 H, ABG pO2 31 L*, Ronan Test Positive, O2 Delivery Device Cannula, Liter Flow 8.0, Blood Gas Notified Whom ICU MD, Blood Gas Notified Time 1120 10/25/19 14:02: Specimen Type ART, Sample Site L Radial, pH 7.38, Bicarbonate Actual 26.5 H, Total CO2 28, Base Excess 1, O2 Saturation 94 L, O2 % 30, ABG pCO2 44.9, ABG pO2 72 L, Ronan Test Positive, Respiration Rate 12.0000, O2 Delivery Device BiPAP, EPAP 5, IPAP 10, Blood Gas Notified Whom ICU MD, Blood Gas Notified Time 1356 Current Medications Acetaminophen (Tylenol) 650 mg PO Q6H PRN PRN PRN Reason: Pain Score 1-10/Temp > 100.7 F Albuterol Sulfate (Ventolin Aerosols) 2.5 mg INHALATION Q6H PRN PRN PRN Reason: sob/wheezing Last Admin: 10/26/19 04:58 Dose: 2.5 mg Documented by: Albuterol/Ipratropium (Duoneb) 3 ml INHALATION Q4HWA.RT [facility] Last Admin: 10/26/19 06:36 Dose: 3 ml Documented by: Enoxaparin Sodium (Lovenox) 40 mg SC DAILY [facility] Last Admin: 10/25/19 09:16 Dose: 40 mg Documented by: Folic Acid (Folic Acid) 1 mg PO DAILY@0800 [facility] Stop: 10/28/19 08:01 Last Admin: 10/26/19 08:29 Dose: 1 mg Documented by: Hydralazine HCl (Apresoline Iv) 10 mg IV Q6H PRN PRN PRN Reason: BLOOD PRESSURE Levofloxacin (Levaquin Iv) 750 mg in 150 mls @ 100 mls/hr IV Q24 [facility] Last Infusion: 10/25/19 11:00 Dose: Infused Documented by: Sodium Chloride () 1,000 mls @ 100 mls/hr IV .Q10H [facility] Last Admin: 10/26/19 04:51 Dose: 100 mls/hr Documented by: Sodium Chloride () 250 mls @ 15 mls/hr IV .[id number] PRN PRN Reason: Saline Flush Sodium Chloride () 250 mls @ 15 mls/hr IV .[id number] PRN PRN Reason: Additional IVPB Infusion Famotidine 20 mg/ Sodium (Chloride) 10 mls @ 300 mls/hr IV Q24 [facility] Lorazepam (Ativan) 2 mg PO Q2H PRN PRN; Protocol PRN Reason: CIWA score > 8 but <15 Last Admin: 10/26/19 08:28 Dose: 2 mg Documented by: Lorazepam (Ativan) 2 mg PO UD PRN; Protocol PRN Reason: CIWA score >/=15. Lorazepam (Ativan) 2 mg IV Q2H PRN PRN; Protocol PRN Reason: CIWA score > 8 but <15 Last Admin: 10/25/19 13:36 Dose: 2 mg Documented by: Lorazepam (Ativan) 2 mg IV UD PRN; Protocol PRN Reason: CIWA score >/=15. Methylprednisolone (Solu-Medrol) 40 mg IV Q6 [facility] Last Admin: 10/26/19 04:51 Dose: 40 mg Documented by: Multivitamins/Minerals (Multivitamin With Minerals (Bkc)) 1 tablet PO DAILYCM [facility] Last Admin: 10/26/19 08:29 Dose: 1 tablet Documented by: Nutritional Formula (Lactose Free) (Ensure Enlive) 120 ml PO 4X/DAY [facility] Ondansetron HCl (Zofran) 4 mg IV Q8H PRN PRN PRN Reason: NAUSEA/VOMITING Oxycodone HCl (Oxyir) 5 mg PO Q6H PRN PRN PRN Reason: Pain Score 4-10/10 Last Admin: 10/25/19 23:38 Dose: 5 mg Documented by: Sodium Chloride () 10 - 40 ml IV UD PRN PRN Reason: SALINE FLUSH Last Admin: 10/26/19 04:51 Dose: 10 ml Documented by: Thiamine HCl (Vitamin B1) 100 mg PO BIDCM [facility] Stop: 10/28/19 08:01 Last Admin: 10/26/19 08:29 Dose: 100 mg Documented by: STROKE Vital Signs/Narrative: Vital Signs Pulse Resp BP Pulse Ox 10/26/19 07:00 92 16 156/108 H 97 10/26/19 06:03 137 H 10/26/19 06:00 97 22 H 158/104 H 97 Medical Necessity - Tobacco Use Smoking Status: Current every day smoker Tobacco Use: Cigarettes Assessment/Plan All Active Problems (Last Reviewed 11/20/18 @ 06:36 by Maegan Jorge) Tension pneumothorax (Acute) Elevated troponin I level (Acute) Dyspnea (Acute) Acute respiratory failure with hypoxia (Acute) Back pain (Acute) 1. Acute hypoxic respiratory failure secondary to tension pneumothorax on the left and a left lower lobe immunity acquired pneumonia/severe bilateral emphysema with a COPD exacerbation/tobacco abuse/right upper lobe nodule -Continue with Levaquin -Chest tube placed, continue with wall suction, can repeat chest x-ray in the morning -A year ago in August she had a right upper lobe mass of around 7 mm she will need to follow-up with outpatient pulmonology for follow-up -Discussed tobacco cessation -Appreciate pulmonology's assistance -Continue with her home medications once her medication list is updated -Continue with duo nebs as well as IV steroids 2. Elevated troponin/HTN -Initial troponin was 0.388, EKG was unremarkable and she is not complaining of any chest pain -Repeat troponins went to 1.25, this is likely related to the severe hypoxia troponin did trend down to 1.190, and an echo had an EF of 55% with normal diastolic function without a wall motion abnormality therefore this elevated troponin is truly related to her hypoxia and her tension pneumothorax -We will restart her blood pressure medications once they are confirmed in the chart 3. Alcohol abuse -She drinks about 7-10 beers a day, and she will not go to rehab -She will be provided with 2 beers per meal now that she is able to tolerate breaks from BiPAP DVT: Lovenox Inpatient E&M: 18512 Subs Hosp L2
[2019-10-26] MEDS: Enoxaparin 40 MG/0.4 ML Syringe SC (10:11)
[2019-10-26] MEDS: Famotidine 200 MG/20 ML MDV 20 MG in 0.9% Normal Saline (Pres. free 8 ML 300 MG IV (10:11)
[2019-10-26] MEDS: levoFLOXacin IV 750 MG/150 ML BAG 100 MG IV (12:22)
[2019-10-26] MEDS: LORazepam 2 MG/ML Syringe IV ×4 (13:14→19:24)
[2019-10-26] MEDS: Morphine 2 MG/ML Syringe IV (23:58)
[2019-10-27] VITALS (29 sets, daily range): BP systolic 121–145; BP diastolic 66–105; PULSE 70–83; RESP 15–31; TEMP 35.9–37.3; O2SAT 93–99
[2019-10-27] MEDS: 0.9% Normal Saline 1,000 ML 100 ML IV ×3 (01:44→20:20)
[2019-10-27] MEDS: Albuterol 2.5 MG/3 ML VIAL.NEB. INHALATION (02:31)
[2019-10-27 04:18] LABS: Absolute Lymphocyte Count 0.28 X10^3/uL (0.83-4.51); Absolute Neutrophil Count 7.8 X10^3/uL (2.0-7.7); Basophil# 0.01 X10^3/uL; Basophil% 0.1 % (0-1); Hematocrit 36.6 % (37-47); Hemoglobin 12.8 g/dL (12.0-15.0); Lymphocyte # 0.28 X10^3/ul (4.0); Lymphocyte % 3.4 % (19-41); Mean Corpuscular Hgb 32.7 pg (27.0-32.0); Mean Corpuscular Volume 93.6 fL (81-99); Mean Platelet Vol. 9.3 fl (6.2-12.0); Monocyte# 0.24 X10^3/uL; Monocyte% 2.9 % (0-10); NRBC Flagged by Analyzer 0 % (0-5); Neutrophil # 7.77 X10^3/uL (2.7-7.7); POSITIVE DIFFERENTIAL YES; Platelet Count 318 K/mm3 (150-450); RBC Distribution Width CV 12.4 % (11.6-14.6); RBC Distribution Width SD 42.7 fl (35.1-43.9); Red Blood Count 3.91 M/mm3 (4.2-5.4); White Blood Count 8.4 K/mm3 (4.4-11.0)
[2019-10-27 04:19] LABS: Differential Indicated SCAN CRITERIA MET
[2019-10-27 04:31] LABS: Anion Gap 6 (5-15); BUN 13 mg/dL (7-18); BUN/Creat Ratio 45.9 RATIO (10-20); Chloride 96 mmol/L (98-107); Creatinine, Serum 0.28 mg/dL (0.55-1.02); EST Glomerular Filtration Rate 253 mL/min (>60); Est Glom Filt Rate - Afr Amer 306 mL/min (>60); Estimated Creatinine Clearance 46.56 ml/min; Glucose 147 mg/dL (74-106); Potassium 3.3 mmol/L (3.5-5.1); Sodium Level 131 mmol/L (136-145)
[2019-10-27] MEDS: TITRATION PARAMETER CHANGE 1 EACH IV (04:35)
[2019-10-27 04:45] LABS: Differential Comment SCANNED
[2019-10-27] MEDS: 0.9% Saline Lock 10 ML Syringe IV ×2 (05:52)
[2019-10-27] MEDS: Ipratropium/Albuterol Sulfate 3 ML AMPUL.NEB INHALATION ×4 (06:41→19:14)
[2019-10-27] MEDS: Multivitamins,Ther W-Minerals Tablet 1 TABLET PO (08:19)
[2019-10-27] MEDS: Folic Acid 1 MG Tablet PO (08:19)
[2019-10-27] MEDS: Thiamine Hydrochloride 100 MG Tablet PO ×2 (08:19→16:37)
[2019-10-27] MEDS: Phenobarbital 32.4 MG Tablet PO ×4 (08:25→20:20)
[2019-10-27] MEDS: Potassium Chloride 10mEq/100mL 10 MEQ/100 ML IV.SOLN. 100 MEQ IV BOLUS ×4 (08:43→13:11)
[2019-10-27] MEDS: Famotidine 200 MG/20 ML MDV 20 MG in 0.9% Normal Saline (Pres. free 8 ML 300 MG IV (08:47)
[2019-10-27] MEDS: levoFLOXacin IV 750 MG/150 ML BAG 100 MG IV (08:53)
--- NOTE | 2019-10-27 09:08 | PN_ITS ---
Patient Problems: Active and Suspected Problems (Last Reviewed 11/20/18 @ 06:36 by Maegan Jorge) Tension pneumothorax (Acute) Elevated troponin I level (Acute) Dyspnea (Acute) Acute respiratory failure with hypoxia (Acute) Subjective: Had to be placed on a Precedex drip overnight, she will be transitioned to a phenobarbital taper to complete alcohol withdrawal protocol. She has no intention of quitting however at this point she is gone so long without alcohol that we do not have a choice Vitals/I&O's: Vital Signs Temp Pulse Resp BP Pulse Ox 98.9 F 77 26 H 144/104 H 97 10/27/19 06:00 10/27/19 07:30 10/27/19 06:41 10/27/19 06:00 10/27/19 06:41 Oxygen Flow Rate (L/min) [6] 15 Oxygen Flow Rate (L/min) [4] 15 Oxygen Flow Rate (L/min) [3] 15 Oxygen Flow Rate (L/min) [2] 15 Oxygen Flow Rate (L/min) [1 ( 15 Initial Baseline)] Oxygen Flow Rate (L/min) 2 Oxygen Delivery Method [6] Non-Rebreather Oxygen Delivery Method [5] Non-Rebreather Oxygen Delivery Method [4] Non-Rebreather Oxygen Delivery Method [3] Non-Rebreather Oxygen Delivery Method [2] Non-Rebreather Oxygen Delivery Method [1 ( Non-Rebreather Initial Baseline)] Oxygen Delivery Method Nasal Cannula Weight: 117 lb 8.102 oz Body Mass Index (BMI) 18.9 Intake and Output for Last 24 Hours 10/25/19 10/26/19 10/27/19 23:59 23:59 23:59 Intake Total 2485 / 2485 2722.18 / 2725.43 1326.76 / 1326.76 Output Total 2365 / 2365 2095 / 3120 1606 / 1606 Balance 120 / 120 627.18 / -394.57 -279.24 / -279.24 General: Alert, Oriented x3, Cooperative, No apparent distress HEENT: Atraumatic, PERRLA, EOMI, Normocephalic Oral: Moist Mucosa Neck: Supple, No JVD Lungs: No rhonchi, mild wheezing bilaterally, diminished Cardiovascular: Regular rate, Regular Rhythm, Normal S1, Normal S2, No murmurs Abdomen: Soft, Non Tender, Non-Distended, No Hepato-splenomegaly Extremities: No edema, Capillary Refill Less than 3 Seconds Skin: No rashes, No breakdown Neurological: Neuro grossly intact, Sensory exam intact to light touch and pain Psych/Mental Status: Normal Affect, Appropriate Microbiology Past 72 Hours 10/25/19 09:30 Sputum, Expectorated/Coughed Gram Stain - Final 10/25/19 09:30 Sputum, Expectorated/Coughed Respiratory Culture - Preliminary GNR Possible Haemophilus sp. 10/24/19 07:24 Blood Culture (Wb) - Venous Blood Culture - Preliminary No growth in 48 hours. 10/25/19 12:45 Urine Catheter - Hare Legionella Antigen - Final 10/25/19 12:45 Urine Catheter - Hare Streptococcus pneumoniae Antigen (M - Final Laboratory Results 10/27/19 04:10: WBC 8.4, RBC 3.91 L, Hgb 12.8, Hct 36.6 L, MCV 93.6, MCH 32.7 H, MCHC 35.0 D, RDW Std Deviation 42.7, RDW Coeff of Oral 12.4, Plt Count 318, MPV 9.3, Immature Gran % (Auto) 0.600, Neut % (Auto) 93.0 H, Lymph % (Auto) 3.4 L, [place] % (Auto) 2.9, Eos % (Auto) 0.0, Baso % (Auto) 0.1, Absolute Neuts (auto) 7.8 H, Absolute Lymphs (auto) 0.28 L, Nucleated RBC % 0, Differential Comment SCANNED 10/27/19 04:10: Sodium 131 L, Potassium 3.3 L, Chloride 96 L, Carbon Dioxide 29.0, Anion Gap 6, BUN 13, Creatinine 0.28 L, Estim Creat Clear Calc 46.56, Est GFR (MDRD) Af Amer 306, Est GFR (MDRD) Non-Af 253, BUN/Creatinine Ratio 45.9 H, Glucose 147 H, Calcium 8.0 L Current Medications Acetaminophen (Tylenol) 650 mg PO Q6H PRN PRN PRN Reason: Pain Score 1-10/Temp > 100.7 F Albuterol Sulfate (Ventolin Aerosols) 2.5 mg INHALATION Q6H PRN PRN PRN Reason: sob/wheezing Last Admin: 10/27/19 02:31 Dose: 2.5 mg Documented by: Albuterol/Ipratropium (Duoneb) 3 ml INHALATION Q4HWA.RT [facility] Last Admin: 10/27/19 06:41 Dose: 3 ml Documented by: Enoxaparin Sodium (Lovenox) 40 mg SC DAILY [facility] Last Admin: 10/26/19 10:11 Dose: 40 mg Documented by: Folic Acid (Folic Acid) 1 mg PO DAILY@0800 [facility] Stop: 10/28/19 08:01 Last Admin: 10/27/19 08:19 Dose: 1 mg Documented by: Hydralazine HCl (Apresoline Iv) 10 mg IV Q6H PRN PRN PRN Reason: BLOOD PRESSURE Levofloxacin (Levaquin Iv) 750 mg in 150 mls @ 100 mls/hr IV Q24 [facility] [place] Last Admin: 10/27/19 08:53 Dose: 100 mls/hr Documented by: Sodium Chloride () 1,000 mls @ 100 mls/hr IV .Q10H [facility] [place] Last Infusion: 10/27/19 08:53 Dose: 0 mls/hr Documented by: Sodium Chloride () 250 mls @ 15 mls/hr IV .[id number] PRN PRN Reason: Saline Flush Sodium Chloride () 250 mls @ 15 mls/hr IV .[id number] PRN PRN Reason: Additional IVPB Infusion Famotidine 20 mg/ Sodium (Chloride) 10 mls @ 300 mls/hr IV Q24 [facility] [place] Last Infusion: 10/27/19 08:52 Dose: Infused Documented by: Dexmedetomidine HCl 400 mcg/ (Sodium Chloride) 100 mls @ 6.663 mls/hr CONT INF .Q15H1M [facility]; Protocol Last Titration: 10/27/19 08:30 Dose: 0.9 mcg/kg/hr, 12 mls/hr Documented by: Potassium Chloride () 10 meq in 100 mls @ 100 mls/hr IV BOLUS Q1H [facility] [place] Stop: 10/27/19 11:29 Last Admin: 10/27/19 08:43 Dose: 100 mls/hr Documented by: Lorazepam (Ativan) 2 mg PO Q2H PRN PRN; Protocol PRN Reason: CIWA score > 8 but <15 Last Admin: 08/02/20 08:28 Dose: 2 mg Documented by: Lorazepam (Ativan) 2 mg PO UD PRN; Protocol PRN Reason: CIWA score >/=15. Lorazepam (Ativan) 2 mg IV Q2H PRN PRN; Protocol PRN Reason: CIWA score > 8 but <15 Last Admin: 10/26/19 19:24 Dose: 2 mg Documented by: Lorazepam (Ativan) 2 mg IV UD PRN; Protocol PRN Reason: CIWA score >/=15. Methylprednisolone (Solu-Medrol) 40 mg IV Q6 [facility] [place] Last Admin: 10/27/19 05:51 Dose: 40 mg Documented by: Morphine Sulfate () 2 mg IV Q4H PRN PRN PRN Reason: Pain Score 1-10/10 Last Admin: 10/26/19 23:58 Dose: 2 mg Documented by: Multivitamins/Minerals ([facility]it[facility] With [facility] ([facility])) [facility] Last Admin: 10/27/19 08:19 Dose: 1 tablet Documented by: Nutritional Formula (Lactose Free) (Ensure Enlive) 120 ml PO 4X/DAY [facility] [place] Last Admin: 10/27/19 08:20 Dose: Not Given Documented by: Ondansetron HCl (Zofran) 4 mg IV Q8H PRN PRN PRN Reason: NAUSEA/VOMITING Oxycodone HCl (Oxyir) 5 mg PO Q6H PRN PRN PRN Reason: Pain Score 4-10/10 Last Admin: 10/25/19 23:38 Dose: 5 mg Documented by: Phenobarbital (Phenobarbital) 97.2 mg PO Q4H [facility] [place]; Taper Stop: 10/31/19 15:29 Last Admin: 10/27/19 08:25 Dose: 97.2 mg Documented by: Sodium Chloride () 10 - 40 ml IV UD PRN PRN Reason: SALINE FLUSH Last Admin: 10/27/19 05:52 Dose: 10 ml Documented by: Thiamine HCl (Vitamin B1) 100 mg PO BIDCM [facility] [place] Stop: 10/28/19 08:01 Last Admin: 10/27/19 08:19 Dose: 100 mg Documented by: STROKE Vital Signs/Narrative: Vital Signs Temp Pulse Resp BP Pulse Ox 10/27/19 07:30 77 10/27/19 06:41 77 26 H 97 08/03/20 06:00 98.9 F 75 28 H 144/104 H 95 Medical Necessity - Tobacco Use Smoking Status: Current every day smoker Tobacco Use: Cigarettes Assessment/Plan All Active Problems (Last Reviewed 11/20/18 @ 06:36 by Maegan Jorge) Tension pneumothorax (Acute) Elevated troponin I level (Acute) Dyspnea (Acute) Acute respiratory failure with hypoxia (Acute) Back pain (Acute) 1. Acute hypoxic respiratory failure secondary to tension pneumothorax on the left and a left lower lobe immunity acquired pneumonia/severe bilateral emphysema with a COPD exacerbation/tobacco abuse/right upper lobe nodule -Continue with Levaquin, sputum cultures growing gram-negative rods -Chest tube placed, could transition to waterseal she does not appear to need BiPAP -A year ago in August she had a right upper lobe mass of around 7 mm she will need to follow-up with outpatient pulmonology for follow-up -Discussed tobacco cessation -Appreciate pulmonology's assistance -Continue with her home medications once her medication list is updated -Continue with duo nebs as well as IV steroids 2. Elevated troponin/HTN -Initial troponin was 0.388, EKG was unremarkable and she is not complaining of any chest pain -Repeat troponins went to 1.25, this is likely related to the severe hypoxia troponin did trend down to 1.190, and an echo had an EF of 55% with normal diastolic function without a wall motion abnormality therefore this elevated troponin is truly related to her hypoxia and her tension pneumothorax -We will restart her blood pressure medications once they are confirmed in the chart 3. Alcohol abuse -She drinks about 7-10 beers a day, and she will not go to rehab -As of her need to transition to BiPAP she was unable to take her 2 beers with every meal therefore she has been started on a Precedex drip and will be transitioned to a phenobarbital taper to complete her alcohol withdrawal protocol DVT: Lovenox Inpatient E&M: [id number] Subs Hosp L2
--- NOTE | 2019-10-27 10:01 | PN_ITS ---
Subjective: Patient was significant agitation overnight and was initiated on a Precedex drip. Patient still requires minimal nasal cannula oxygen. Crepitus was noted in the chest, but no imaging was obtained overnight. No fevers been reported. Patient continues to have coughing episodes. Patient reported left-sided chest pain, but no abdominal pain. General: Confused, Disoriented, - - RASS -1. HEENT: Atraumatic, PERRLA, EOMI, Normocephalic, - - Slight scleral injection noted Oral: Moist Mucosa, No Gingival or Mucosal Lesions/ Ulcerations Neck: Supple, No JVD, No Nodes, Trachea Midline Lungs: No rhonchi, No rales, Diminished, Wheezes - Left chest, - - Crepitus noted in the left chest, shoulder and inferior neck Cardiovascular: Regular rate, Regular Rhythm, Normal S1, Normal S2, No murmurs, No rub noted, No Gallop Abdomen: Bowel Sounds Present, Soft, Non Tender, Non-Distended Extremities: No clubbing, No cyanosis, No edema Skin: No rashes, No breakdown Musculoskeletal: No Tenderness to Palpation of Joints or Extremities Lymphatic: No Cervical, Supraclavicular, or Inguinal Adenopathy Neurological: Cranial nerves II-XII grossly intact, Neuro grossly intact, Motor Exam 5/5 strength throughout Psych/Mental Status: Anxious, Impulsive Vital Signs Temp Pulse Resp BP Pulse Ox 37.2 C 80 26 H 141/101 H 94 10/27/19 08:00 10/27/19 10:00 10/27/19 10:00 10/27/19 09:00 10/27/19 09:00 Oxygen Flow Rate (L/min) [6] 15 Oxygen Flow Rate (L/min) [4] 15 Oxygen Flow Rate (L/min) [3] 15 Oxygen Flow Rate (L/min) [2] 15 Oxygen Flow Rate (L/min) [1 ( 15 Initial Baseline)] Oxygen Flow Rate (L/min) 2 Oxygen Delivery Method [6] Non-Rebreather Oxygen Delivery Method [5] Non-Rebreather Oxygen Delivery Method [4] Non-Rebreather Oxygen Delivery Method [3] Non-Rebreather Oxygen Delivery Method [2] Non-Rebreather Oxygen Delivery Method [1 ( Non-Rebreather Initial Baseline)] Oxygen Delivery Method Nasal Cannula Weight: 53.3 kg Body Mass Index (BMI) 18.9 Intake and Output for Last 24 Hours 10/25/19 10/26/19 10/27/19 23:59 23:59 23:59 Intake Total 2485 / 2485 2722.18 / 2725.43 1335.76 / 1335.76 Output Total 2365 / 2365 2095 / 3120 1606 / 1606 Balance 120 / 120 627.18 / -394.57 -270.24 / -270.24 Labs (Last 48 Hours) 10/25/19 10/25/19 10/25/19 09:00 11:20 14:02 WBC RBC Hgb Hct MCV MCH MCHC RDW Std Deviation RDW Coeff of Oral Plt Count MPV Immature Gran % (Auto) Neut % (Auto) Lymph % (Auto) [place] % (Auto) Eos % (Auto) Baso % (Auto) Absolute Neuts (auto) Absolute Lymphs (auto) Nucleated RBC % Differential Comment Specimen Type MAGI ART Sample Site R Brach L Radial pH 7.33 L 7.38 Bicarbonate Actual 27.2 H 26.5 H Total CO2 29 28 Base Excess 1 1 O2 Saturation 53 L 94 L O2 % 8 30 ABG pCO2 51.1 H 44.9 ABG pO2 31 L* 72 L Ronan Test Positive Positive Respiration Rate 12.0000 O2 Delivery Device Cannula BiPAP Liter Flow 8.0 EPAP 5 IPAP 10 Blood Gas Notified Whom ICU MD ICU MD Blood Gas Notified Time 1120 1356 Sodium Potassium Chloride Carbon Dioxide Anion Gap BUN Creatinine Estim Creat Clear Calc Est GFR (MDRD) Af Amer Est GFR (MDRD) Non-Af BUN/Creatinine Ratio Glucose Calcium MRSA (PCR) Negative 10/27/19 10/27/19 04:10 04:10 WBC 8.4 RBC 3.91 L Hgb 12.8 Hct 36.6 L MCV 93.6 MCH 32.7 H MCHC 35.0 D RDW Std Deviation 42.7 RDW Coeff of Oral 12.4 Plt Count 318 MPV 9.3 Immature Gran % (Auto) 0.600 Neut % (Auto) 93.0 H Lymph % (Auto) 3.4 L [place] % (Auto) 2.9 Eos % (Auto) 0.0 Baso % (Auto) 0.1 Absolute Neuts (auto) 7.8 H Absolute Lymphs (auto) 0.28 L Nucleated RBC % 0 Differential Comment SCANNED Specimen Type Sample Site pH Bicarbonate Actual Total CO2 Base Excess O2 Saturation O2 % ABG pCO2 ABG pO2 Ronan Test Respiration Rate O2 Delivery Device Liter Flow EPAP IPAP Blood Gas Notified Whom Blood Gas Notified Time Sodium 131 L Potassium 3.3 L Chloride 96 L Carbon Dioxide 29.0 Anion Gap 6 BUN 13 Creatinine 0.28 L Estim Creat Clear Calc 46.56 Est GFR (MDRD) Af Amer 306 Est GFR (MDRD) Non-Af 253 BUN/Creatinine Ratio 45.9 H Glucose 147 H Calcium 8.0 L MRSA (PCR) Microbiology 10/25/19 09:30 Sputum, Expectorated/Coughed Gram Stain - Final 10/25/19 09:30 Sputum, Expectorated/Coughed Respiratory Culture - Preliminary GNR Possible Haemophilus sp. 10/24/19 07:24 Blood Culture (Wb) - Venous Blood Culture - Preliminary No growth in 48 hours. 10/25/19 12:45 Urine Catheter - Hare Legionella Antigen - Final 10/25/19 12:45 Urine Catheter - Hare Streptococcus pneumoniae Antigen (M - Final Medical Necessity - Tobacco Use Smoking Status: Current every day smoker Tobacco Use: Cigarettes Assessment/Plan All Active Problems (Last Reviewed 11/20/18 @ 06:36 by Maegan Jorge) Tension pneumothorax (Acute) Elevated troponin I level (Acute) Dyspnea (Acute) Acute respiratory failure with hypoxia (Acute) Back pain (Acute) RECOMMENDATIONS: 1. Continue chest tube to wall suction. 2. Continue chest tube until off of all positive pressure ventilation and leak subsided. Use high flow nasal cannula if necessary 3. Continue empiric antimicrobials, scheduled bronchodilators and IV steroids. 4. Continue supplemental oxygen and wean to maintain saturations at or above 90%. 5. Initiate phenobarbital taper. Continue thiamine and folate. 6. Continue appropriate ICU prophylaxis. 7. Obtain repeat x-ray tomorrow morning IMPRESSIONS: 1. Acute hypoxemic respiratory failure due to pneumothorax Unclear if the patient's presenting pneumothorax represents a primary spontaneous etiology versus traumatic from questionable fall. She does have underlying bilateral emphysematous changes and bullous disease, primarily in the upper lobes. Her presentation may be the consequence of ruptured bullae. Patient does have left-sided crepitus and leak increases after coughing epis odes. Regardless, she has undergone tube thoracotomy. The patient decompensated from a respiratory perspective on [place] 1, requiring transfer to the ICU and subsequent initiation of BiPAP therapy. Continue chest tube to wall suction today. Attempt to avoid positive pressure ventilation with high flow nasal cannula if necessary. For now, continue scheduled bronchodilators, empiric antimicrobials and IV steroids. Continue to wean supplemental oxygen as tolerated. 2. Presumptive COPD with extensive tobacco abuse history/right upper lobe pulmonary nodule The patient has an extensive smoking history and continues to smoke daily. Although she was previously referred to the pulmonary clinic in 2019, the patient failed to present for her office visit. Upon discharge, the patient would likely benefit from outpatient pulmonary follow-up so that baseline pulmonary function studies can be obtained. In addition, the patient has a known right upper lobe lung nodule, which will need to be followed longitudinally. 3. H. influenzae pneumonia The patient presented with radiographic evidence of a left lower lobe infiltrate. She will be continued on therapy for a presumptive COPD exacerbation with scheduled bronchodilators, antimicrobials and IV steroids. 4. History of alcohol dependency/CODE STATUS The patient reports a longstanding history of daily alcohol use, typically 6+ beers per day. She will need to be monitored closely for any alcohol withdrawal symptoms. Continue thiamine and folate accordingly. CODE STATUS was previously discussed and confirmed to be full code. TIME: 32 minutes of critical care time, independent of procedures, was spent addressing the patient's acute hypoxemic respiratory failure, pneumothorax, H. influenzae pneumonia, presumptive COPD with exacerbation, history of alcohol dependency, review of all data and collaboration with the care team. (7:30 AM to 8:30 AM) 9xxxx: [id number] Critical care first hour
[2019-10-27] MEDS: Enoxaparin 40 MG/0.4 ML Syringe SC (10:55)
[2019-10-27] MEDS: Morphine 2 MG/ML Syringe IV (13:17)
--- NOTE | 2019-10-27 13:57 | CASEMGMT ---
RN CM CIGARETTE SELLER CM to room to meet with patient for initial transition planning/care coordination assessment. RADHA BOSWELL introduced self and role at [facility]. Pt voices understanding and consents to assessment at this time. Pt awake/resting in bed, sleepy/groggy, but does answer questions appropriately. Care providers, pharmacy, and demographics verified/updated at this time. PCP: Dr Garcia Specialists: Dr Bentley Preferred Pharmacy: [facility] Insurance: [facility] Prescription Benefit: Yes Living Will/HPOA: Pt does not currently have LW/HCPOA. She states she would like to talk with her fiance, Dylan, about this before making a decision. Pt provided with AD information. Pt made aware that she can contact SW as an out-pt and make appt in the future if she decides she would like to talk with someone about this or would like to utilize [facility] social work for advanced directive completion. Given Quality Assurance Monitor Final Rac card with information and contact number. Pt expresses understanding. LNOK: Sig other/Dylan Vernon. Granddaughter, Mikala. Living Arrangements: Lives in 2-story home w/3 steps to enter w/1 handrail. Independent prior to hospitalization. 18-yr-old grandson lives her. Pt states he has ADHD and she helps take care of him. Transportation: Pt states drives self and states no transportation concerns at this time. Dylan (alon) also drives DME: has the following DME: rails/grab bars only. Uses no DME to ambulate. Does not have Home O2 or nebulizer. Pt states no need for further DME at this time. HHC/SNF: No hx SNF. States has had [facility] in the past after a fall about a year. Pt wishes to return home and states has no concerns with going home at time of discharge. CM to follow for home oxygen needs and any further discharge planning/needs. Pt voices no concerns/needs at this time. Advised pt to ask for CM if any questions/concerns/needs arise. Voices understanding. PLAN: Home w/fiance support. Follow for any Oxygen needs @ discharge. Follow PT/OT and any DME or HHC/OP therapy needs @ d/c. Jesse HERRERA RN, CM
--- NOTE | 2019-10-27 14:49 | CASEMGMT ---
Social Work Note SW reviewed chart. Pt drinks 7-10 beers daily but reportedly is not interested in rehab at discharge. SW in to speak with pt. Pt appears groggy/sleepy but is able to answer questions appropriately. LOKI introduced self and role at [facility]. Pt is alert and orientated x3. Pt denied any MH history. Pt does confirm that she uses cigarettes and does drink alcohol. Pt states after being in here, I don't plan on drinking or smoking anymore. SW provided resources to pt for substance abuse. Pt denied additional needs or concerns at this time. Alise Duncan SHIFT SUPERINTENDENT CAUSTIC CRESYLATE, FARMWORKER MACHINE
[2019-10-27] MEDS: Losartan Potassium 50 MG Tablet PO (22:27)
[2019-10-28] VITALS (25 sets, daily range): BP systolic 113–154; BP diastolic 72–109; PULSE 71–114; RESP 14–29; TEMP 36.6–37.4; O2SAT 91–99
--- NOTE | 2019-10-28 00:09 | NURSING ---
During reassessment, continuous bubbling noted in [facility] chest tube reservoir. Dr. Camille nieves.
--- NOTE | 2019-10-28 00:12 | NURSING ---
Dr. Miguel returned page and was notified of patient condition. No new orders at this time.
[2019-10-28] MEDS: Morphine 2 MG/ML Syringe IV ×2 (00:23→09:24)
[2019-10-28] MEDS: Phenobarbital 32.4 MG Tablet PO ×6 (00:23→20:48)
[2019-10-28] MEDS: 0.9% Saline Lock 10 ML Syringe IV (00:24)
[2019-10-28] MEDS: Albuterol 2.5 MG/3 ML VIAL.NEB. INHALATION (02:56)
[2019-10-28 04:49] LABS: Absolute Lymphocyte Count 0.33 X10^3/uL (0.83-4.51); Absolute Neutrophil Count 5.5 X10^3/uL (2.0-7.7); Hematocrit 37.3 % (37-47); Hemoglobin 12.9 g/dL (12.0-15.0); Lymphocyte # 0.33 X10^3/ul (4.0); Lymphocyte % 5.4 % (19-41); Mean Corp Hgb Conc 34.6 g/dL (32-36); Mean Corpuscular Volume 92.6 fL (81-99); Mean Platelet Vol. 9.6 fl (6.2-12.0); Monocyte# 0.26 X10^3/uL; Monocyte% 4.2 % (0-10); NRBC Flagged by Analyzer 0 % (0-5); Neutrophil % 89.4 % (47-70); POSITIVE DIFFERENTIAL YES; POSITIVE MORPHOLOGY YES; Platelet Count 316 K/mm3 (150-450); RBC Distribution Width CV 12.1 % (11.6-14.6); RBC Distribution Width SD 41.4 fl (35.1-43.9); Red Blood Count 4.03 M/mm3 (4.2-5.4); White Blood Count 6.2 K/mm3 (4.4-11.0)
[2019-10-28 04:51] LABS: Differential Indicated SCAN CRITERIA MET
[2019-10-28 05:19] LABS: Anion Gap 6 (5-15); BUN 14 mg/dL (7-18); BUN/Creat Ratio 51.9 RATIO (10-20); Calcium,Total 7.5 mg/dL (8.5-10.1); Chloride 99 mmol/L (98-107); Creatinine, Serum 0.27 mg/dL (0.55-1.02); EST Glomerular Filtration Rate 267 mL/min (>60); Est Glom Filt Rate - Afr Amer 323 mL/min (>60); Estimated Creatinine Clearance 46.56 ml/min; Glucose 127 mg/dL (74-106); Magnesium 1.9 mg/dL (1.6-2.6); Phosphorus 2.8 mg/dL (2.5-4.9); Potassium 3.1 mmol/L (3.5-5.1); Sodium Level 132 mmol/L (136-145)
--- NOTE | 2019-10-28 05:33 | RAD_ITS ---
STUDY: X-RAY CHEST REASON FOR EXAM: Female, 64 years old. PNEUMOTHORAX TECHNIQUE: Single AP portable view of the chest. COMPARISON: 10/26/2019 FINDINGS: There is a left-sided chest tube tip is at the left apex. There is extensive left-sided subcutaneous emphysema similar to the prior study. A pneumothorax is not definitively identified. There is a blunted appearance of the right costophrenic angle new since prior study. There is mild cardiac enlargement. Normal mediastinum and tripp. Normal visualized pulmonary arteries. There is atherosclerotic tortuosity of the aortic arch and descending thoracic aorta. There are diffuse degenerative changes of the visualized thoracic spine. Normal visualized ribs, clavicles, and shoulders. There is no demonstrated abnormality of the visualized soft tissue structures of the upper abdomen. RAD/Chest 1 View (Portable) IMPRESSION: Left-sided chest tube, no visualized pneumothorax. Right pleural effusion and right lower lobe atelectasis. Electronically Signed: Racheal Ho MD at 6:28 EDT Tel , Service support ,
[2019-10-28] MEDS: Potassium Chloride 10mEq/100mL 10 MEQ/100 ML IV.SOLN. 100 MEQ IV BOLUS ×4 (05:44→09:25)
[2019-10-28] MEDS: 0.9% Normal Saline 1,000 ML 100 ML IV ×2 (05:45→14:10)
[2019-10-28 06:25] LABS: Differential Comment SCANNED
--- NOTE | 2019-10-28 06:50 | PN_ITS ---
Subjective: Patient doing okay. Patient continues to have paroxysmal coughing episodes with leak noted from the chest tube per nursing. Subcutaneous emphysema has not changed over the last 24 hours. Patient denies any pain. Patient is almost off of Precedex drip. Objective: Chest x-ray was personally reviewed. No significant pneumothorax has been noted. Right lower lobe atelectasis and slight worsening in subcutaneous emphysema appreciated on my evaluation. General: Alert, Cooperative, No apparent distress, Disoriented, - - Appears older than stated age. Thin build. Opens eyes and converses to voice HEENT: Atraumatic, PERRLA, EOMI, Normocephalic, - - No scleral icterus or injection noted Oral: Moist Mucosa, No Gingival or Mucosal Lesions/ Ulcerations Neck: Supple, No JVD, No Nodes, Trachea Midline Lungs: No rhonchi, No wheeze, No rales, Diminished, - - Crepitus noted on the left side of the chest. Does not appear significantly changed from yesterday Cardiovascular: Regular rate, Regular Rhythm, Normal S1, Normal S2, No murmurs, No rub noted, No Gallop Abdomen: Bowel Sounds Present, Soft, Non Tender, Non-Distended Extremities: No clubbing, No cyanosis, No edema Skin: No rashes, No breakdown, - - Crepitus is stated above Musculoskeletal: No Tenderness to Palpation of Joints or Extremities Lymphatic: No Cervical, Supraclavicular, or Inguinal Adenopathy Neurological: Cranial nerves II-XII grossly intact, Neuro grossly intact, Motor Exam 5/5 strength throughout Psych/Mental Status: Flat Affect Vital Signs Temp Pulse Resp BP Pulse Ox 36.8 C 78 19 H 148/99 H 98 10/28/19 06:00 10/28/19 06:00 10/28/19 06:00 10/28/19 06:00 10/28/19 06:00 Oxygen Flow Rate (L/min) [6] 15 Oxygen Flow Rate (L/min) [4] 15 Oxygen Flow Rate (L/min) [3] 15 Oxygen Flow Rate (L/min) [2] 15 Oxygen Flow Rate (L/min) [1 ( 15 Initial Baseline)] Oxygen Flow Rate (L/min) 5 Oxygen Delivery Method [6] Non-Rebreather Oxygen Delivery Method [5] Non-Rebreather Oxygen Delivery Method [4] Non-Rebreather Oxygen Delivery Method [3] Non-Rebreather Oxygen Delivery Method [2] Non-Rebreather Oxygen Delivery Method [1 ( Non-Rebreather Initial Baseline)] Oxygen Delivery Method Nasal Cannula Weight: 53.3 kg Body Mass Index (BMI) 18.9 Intake and Output for Last 24 Hours 10/26/19 10/27/19 10/28/19 23:59 23:59 23:59 Intake Total 2722.18 / 2725.43 2975.69 / 3215.69 1336.25 / 1336.25 Output Total 2095 / 3120 2256 / 3006 1500 / 1500 Balance 627.18 / -394.57 719.69 / 209.69 -163.75 / -163.75 Labs (Last 48 Hours) 10/27/19 10/27/19 10/28/19 04:10 04:10 04:30 WBC 8.4 6.2 RBC 3.91 L 4.03 L Hgb 12.8 12.9 Hct 36.6 L 37.3 MCV 93.6 92.6 MCH 32.7 H 32.0 MCHC 35.0 D 34.6 RDW Std Deviation 42.7 41.4 RDW Coeff of Oral 12.4 12.1 Plt Count 318 316 MPV 9.3 9.6 Immature Gran % (Auto) 0.600 1.000 H Neut % (Auto) 93.0 H 89.4 H Lymph % (Auto) 3.4 L 5.4 L [place] % (Auto) 2.9 4.2 Eos % (Auto) 0.0 0.0 Baso % (Auto) 0.1 0.0 Absolute Neuts (auto) 7.8 H 5.5 Absolute Lymphs (auto) 0.28 L 0.33 L Nucleated RBC % 0 0 Differential Comment SCANNED SCANNED Sodium 131 L Potassium 3.3 L Chloride 96 L Carbon Dioxide 29.0 Anion Gap 6 BUN 13 Creatinine 0.28 L Estim Creat Clear Calc 46.56 Est GFR (MDRD) Af Amer 306 Est GFR (MDRD) Non-Af 253 BUN/Creatinine Ratio 45.9 H Glucose 147 H Calcium 8.0 L Phosphorus Magnesium 10/28/19 04:30 WBC RBC Hgb Hct MCV MCH MCHC RDW Std Deviation RDW Coeff of Oral Plt Count MPV Immature Gran % (Auto) Neut % (Auto) Lymph % (Auto) [place] % (Auto) Eos % (Auto) Baso % (Auto) Absolute Neuts (auto) Absolute Lymphs (auto) Nucleated RBC % Differential Comment Sodium 132 L Potassium 3.1 L Chloride 99 Carbon Dioxide 27.0 Anion Gap 6 BUN 14 Creatinine 0.27 L Estim Creat Clear Calc 46.56 Est GFR (MDRD) Af Amer 323 Est GFR (MDRD) Non-Af 267 BUN/Creatinine Ratio 51.9 H Glucose 127 H Calcium 7.5 L Phosphorus 2.8 Magnesium 1.9 Microbiology 10/25/19 09:30 Sputum, Expectorated/Coughed Gram Stain - Final 10/25/19 09:30 Sputum, Expectorated/Coughed Respiratory Culture - Final Haemophilus influenzae 10/24/19 07:24 Blood Culture (Wb) - Venous Blood Culture - Preliminary No growth in 48 hours. Clinical Impression(s) from Imaging Studies Chest X-Ray 10/28/19 05:33 IMPRESSION: Left-sided chest tube, no visualized pneumothorax. Right pleural effusion and right lower lobe atelectasis. Electronically Signed: Racheal Ho MD at 6:28 EDT Tel , Service support , Medical Necessity - Tobacco Use Smoking Status: Current every day smoker Tobacco Use: Cigarettes Assessment/Plan All Active Problems (Last Reviewed 11/20/18 @ 06:36 by Maegan Jorge) Tension pneumothorax (Acute) Elevated troponin I level (Acute) Dyspnea (Acute) Acute respiratory failure with hypoxia (Acute) Back pain (Acute) RECOMMENDATIONS: 1. Continue chest tube to wall suction. 2. Continue chest tube until off of all positive pressure ventilation and leak subsided. Use high flow nasal cannula if necessary 3. Continue empiric antimicrobials, scheduled bronchodilators and IV steroids. 4. Continue supplemental oxygen and wean to maintain saturations at or above 90%. 5. Continue phenobarbital taper. Continue thiamine and folate. 6. Possible transfer from the intensive care unit if able to tolerate off of Precedex IMPRESSIONS: 1. Acute hypoxemic respiratory failure due to pneumothorax Unclear if the patient's presenting pneumothorax represents a primary spontaneous etiology versus traumatic from questionable fall. She does have underlying bilateral emphysematous changes and bullous disease, primarily in the upper lobes. Her presentation may be the consequence of ruptured bullae. Patient does have left-sided crepitus and leak increases after coughing episodes. Regardless, she has undergone tube thoracotomy. The patient decompensated from a respiratory perspective on October 24, requiring transfer to the ICU and subsequent initiation of BiPAP therapy. Continue chest tube to wall suction today. No positive pressure has been required for over 24 hours. Management is complicated by H. influenzae pneumonia with paroxysmal coughing. For now, continue scheduled bronchodilators, empiric antimicrobials and IV steroids. Continue to wean supplemental oxygen as tolerated. 2. Presumptive COPD with extensive tobacco abuse history/right upper lobe pulmonary nodule The patient has an extensive smoking history and continues to smoke daily. Although she was previously referred to the pulmonary clinic in 2019, the patient failed to present for her office visit. Upon discharge, the patient would likely benefit from outpatient pulmonary follow-up so that baseline pulmonary function studies can be obtained. In addition, the patient has a known right upper lobe lung nodule, which will need to be followed longitudinally. 3. H. influenzae pneumonia The patient presented with radiographic evidence of a left lower lobe infiltrate. She will be continued on therapy for a presumptive COPD exacerba tion with scheduled bronchodilators, antimicrobials and IV steroids. Patient does have right lower lobe atelectasis and a pleural effusion, but this is likely secondary to splinting associated with the chest tube more than progression of pneumonia. No fevers been noted overnight. 4. History of alcohol dependency/CODE STATUS The patient reports a longstanding history of daily alcohol use, typically 6+ beers per day. She will need to be monitored closely for any alcohol withdrawal symptoms. Continue thiamine and folate accordingly. Replete electrolytes as necessary CODE STATUS was previously discussed and confirmed to be full code. Inpatient E&M: [address] [facility] Hosp L3
[2019-10-28] MEDS: Ipratropium/Albuterol Sulfate 3 ML AMPUL.NEB INHALATION ×3 (06:55→19:54)
[2019-10-28] MEDS: amLODIPine 2.5 MG Tablet PO (08:00)
[2019-10-28] MEDS: Folic Acid 1 MG Tablet PO (08:00)
[2019-10-28] MEDS: Multivitamins,Ther W-Minerals Tablet 1 TABLET PO (08:00)
[2019-10-28] MEDS: Thiamine Hydrochloride 100 MG Tablet PO (08:00)
--- NOTE | 2019-10-28 10:04 | PN_ITS ---
Patient Problems: Active and Suspected Problems (Last Reviewed 11/20/18 @ 06:36 by Maegan Jorge) Tension pneumothorax (Acute) Elevated troponin I level (Acute) Dyspnea (Acute) Acute respiratory failure with hypoxia (Acute) Subjective: No issues overnight, still on the Precedex drip though this is being weaned, she has not required any BiPAP in the last 24 hours Vitals/I&O's: Vital Signs Temp Pulse Resp BP Pulse Ox 98.6 F 95 20 H 139/76 H 99 10/28/19 08:00 10/28/19 08:00 10/28/19 08:00 10/28/19 08:00 10/28/19 08:00 Oxygen Flow Rate (L/min) [6] 15 Oxygen Flow Rate (L/min) [4] 15 Oxygen Flow Rate (L/min) [3] 15 Oxygen Flow Rate (L/min) [2] 15 Oxygen Flow Rate (L/min) [1 ( 15 Initial Baseline)] Oxygen Flow Rate (L/min) 5 Oxygen Delivery Method [6] Non-Rebreather Oxygen Delivery Method [5] Non-Rebreather Oxygen Delivery Method [4] Non-Rebreather Oxygen Delivery Method [3] Non-Rebreather Oxygen Delivery Method [2] Non-Rebreather Oxygen Delivery Method [1 ( Non-Rebreather Initial Baseline)] Oxygen Delivery Method Nasal Cannula Weight: 117 lb 15.157 oz Body Mass Index (BMI) 18.9 Intake and Output for Last 24 Hours 10/26/19 10/27/19 10/28/19 23:59 23:59 23:59 Intake Total 2722.18 / 2725.43 2975.69 / 3215.69 1864.18 / 1864.18 Output Total 2095 / 3120 2256 / 3006 1500 / 1500 Balance 627.18 / -394.57 719.69 / 209.69 364.18 / 364.18 General: Alert, Oriented x3, Cooperative, No apparent distress HEENT: Atraumatic, PERRLA, EOMI, Normocephalic Oral: Moist Mucosa Neck: Supple, No JVD Lungs: No rhonchi, mild wheezing bilaterally, diminished Cardiovascular: Regular rate, Regular Rhythm, Normal S1, Normal S2, No murmurs Abdomen: Soft, Non Tender, Non-Distended, No Hepato-splenomegaly Extremities: No edema, Capillary Refill Less than 3 Seconds Skin: No rashes, No breakdown Neurological: Neuro grossly intact, Sensory exam intact to light touch and pain Psych/Mental Status: Normal Affect, Appropriate Microbiology Past 72 Hours 10/25/19 09:30 Sputum, Expectorated/Coughed Gram Stain - Final 10/25/19 09:30 Sputum, Expectorated/Coughed Respiratory Culture - Final Haemophilus influenzae 10/24/19 07:24 Blood Culture (Wb) - Venous Blood Culture - Preliminary No growth in 48 hours. 10/25/19 12:45 Urine Catheter - Hare Legionella Antigen - Final 10/25/19 12:45 Urine Catheter - Hare Streptococcus pneumoniae Antigen (M - Final Laboratory Results 10/28/19 04:30: WBC 6.2, RBC 4.03 L, Hgb 12.9, Hct 37.3, MCV 92.6, MCH 32.0, MCHC 34.6, RDW Std Deviation 41.4, RDW Coeff of Oral 12.1, Plt Count 316, MPV 9.6, Immature Gran % (Auto) 1.000 H, Neut % (Auto) 89.4 H, Lymph % (Auto) 5.4 L, [place] % (Auto) 4.2, Eos % (Auto) 0.0, Baso % (Auto) 0.0, Absolute Neuts (auto) 5.5, Absolute Lymphs (auto) 0.33 L, Nucleated RBC % 0, Differential Comment SCANNED 10/28/19 04:30: Sodium 132 L, Potassium 3.1 L, Chloride 99, Carbon Dioxide 27.0, Anion Gap 6, BUN 14, Creatinine 0.27 L, Estim Creat Clear Calc 46.56, Est GFR (MDRD) Af Amer 323, Est GFR (MDRD) Non-Af 267, BUN/Creatinine Ratio 51.9 H, Glucose 127 H, Calcium 7.5 L, Phosphorus 2.8, Magnesium 1.9 Current Medications Acetaminophen (Tylenol) 650 mg PO Q6H PRN PRN PRN Reason: Pain Score 1-10/Temp > 100.7 F Albuterol Sulfate (Ventolin Aerosols) 2.5 mg INHALATION Q6H PRN PRN PRN Reason: sob/wheezing Last Admin: 10/28/19 02:56 Dose: 2.5 mg Documented by: Albuterol/Ipratropium (Duoneb) 3 ml INHALATION Q4HWA.RT [facility] Last Admin: 10/28/19 06:55 Dose: 3 ml Documented by: Amlodipine Besylate (Norvasc) 2.5 mg PO DAILY [facility] Last Admin: 10/28/19 08:00 Dose: 2.5 mg Documented by: Enoxaparin Sodium (Lovenox) 40 mg SC DAILY [facility] Last Admin: 10/27/19 10:55 Dose: 40 mg Documented by: Hydralazine HCl (Apresoline Iv) 10 mg IV Q6H PRN PRN PRN Reason: BLOOD PRESSURE Levofloxacin (Levaquin Iv) 750 mg in 150 mls @ 100 mls/hr IV Q24 [facility] Last Infusion: 10/27/19 10:41 Dose: Infused Documented by: Sodium Chloride () 1,000 mls @ 100 mls/hr IV .Q10H [facility] Last Infusion: 10/28/19 08:00 Dose: 100 mls/hr Documented by: Sodium Chloride () 250 mls @ 15 mls/hr IV .[id number] PRN PRN Reason: Saline Flush Sodium Chloride () 250 mls @ 15 mls/hr IV .[id number] PRN PRN Reason: Additional IVPB Infusion Famotidine 20 mg/ Sodium (Chloride) 10 mls @ 300 mls/hr IV Q24 [facility] Last Infusion: 10/27/19 08:52 Dose: Infused Documented by: Dexmedetomidine HCl 400 mcg/ (Sodium Chloride) 100 mls @ 6.663 mls/hr CONT INF .Q15H1M [facility]; Protocol Last Titration: 10/28/19 09:00 Dose: 0 mcg/kg/hr, 0 mls/hr Documented by: Lorazepam (Ativan) 2 mg PO Q2H PRN PRN; Protocol PRN Reason: CIWA score > 8 but <15 Last Admin: 10/26/19 08:28 Dose: 2 mg Documented by: Lorazepam (Ativan) 2 mg PO UD PRN; Protocol PRN Reason: CIWA score >/=15. Lorazepam (Ativan) 2 mg IV Q2H PRN PRN; Protocol PRN Reason: CIWA score > 8 but <15 Last Admin: 10/26/19 19:24 Dose: 2 mg Documented by: Lorazepam (Ativan) 2 mg IV UD PRN; Protocol PRN Reason: CIWA score >/=15. Losartan Potassium (Cozaar) 50 mg PO BID [facility] Last Admin: 10/27/19 22:27 Dose: 50 mg Documented by: Multivitamins/Minerals (Multivitamin With Minerals (Bkc)) 1 tablet PO DAILYCM [facility] Last Admin: 10/28/19 08:00 Dose: 1 tablet Documented by: Nutritional Formula (Lactose Free) (Ensure Enlive) 120 ml PO 4X/DAY [facility] Last Admin: 10/27/19 22:28 Dose: Not Given Documented by: Ondansetron HCl (Zofran) 4 mg IV Q8H PRN PRN PRN Reason: NAUSEA/VOMITING Oxycodone HCl (Oxyir) 5 mg PO Q6H PRN PRN PRN Reason: Pain Score 4-10/10 Last Admin: 10/25/19 23:38 Dose: 5 mg Documented by: Phenobarbital (Phenobarbital) 97.2 mg PO Q4H [facility]; Taper Stop: 10/31/19 15:29 Last Admin: 10/28/19 07:59 Dose: 97.2 mg Documented by: Prednisone () 40 mg PO DAILY@0800 [facility] Sodium Chloride () 10 - 40 ml IV UD PRN PRN Reason: SALINE FLUSH Last Admin: 10/28/19 00:24 Dose: 10 ml Documented by: STROKE Vital Signs/Narrative: Vital Signs Temp Pulse Resp BP Pulse Ox 10/28/19 08:00 98.6 F 95 20 H 139/76 H 99 10/28/19 07:00 106 H 24 H 154/109 H 96 10/28/19 06:55 80 29 H 95 Medical Necessity - Tobacco Use Smoking Status: Current every day smoker Tobacco Use: Cigarettes Assessment/Plan All Active Problems (Last Reviewed 11/20/18 @ 06:36 by Maegan Jorge) Tension pneumothorax (Acute) Elevated troponin I level (Acute) Dyspnea (Acute) Acute respiratory failure with hypoxia (Acute) Back pain (Acute) 1. Acute hypoxic respiratory failure secondary to tension pneumothorax on the left and a left lower lobe immunity acquired pneumonia/severe bilateral emphysema with a COPD exacerbation/tobacco abuse/right upper lobe nodule -Continue with Levaquin, sputum cultures growing Haemophilus influenza -Chest tube placed, continued on wall suction -A year ago in August she had a right upper lobe mass of around 7 mm she will need to follow-up with outpatient pulmonology for follow-up -Discussed tobacco cessation -Appreciate pulmonology's assistance -Continue with her home medications once her medication list is updated -Continue with duo nebs as well as p.o. steroids 2. Elevated troponin/HTN -Initial troponin was 0.388, EKG was unremarkable and she is not complaining of any chest pain -Repeat troponins went to 1.25, this is likely related to the severe hypoxia troponin did trend down to 1.190, and an echo had an EF of 55% with normal diastolic function without a wall motion abnormality therefore this elevated troponin is truly related to her hypoxia and her tension pneumothorax 3. Alcohol abuse -She drinks about 7-10 beers a day, and she will not go to rehab -As of her need to transition to BiPAP she was unable to take her 2 beers with every meal therefore she has been started on a Precedex drip and will be transitioned to a phenobarbital taper to complete her alcohol withdrawal p rotocol DVT: Lovenox Inpatient E&M: 00587 Subs Hosp L2
[2019-10-28] MEDS: Enoxaparin 40 MG/0.4 ML Syringe SC (10:33)
[2019-10-28] MEDS: Famotidine 200 MG/20 ML MDV 20 MG in 0.9% Normal Saline (Pres. free 8 ML 330 MG IV (10:33)
[2019-10-28] MEDS: predniSONE 20 MG Tablet 40 MG PO (10:33)
[2019-10-28] MEDS: Losartan Potassium 50 MG Tablet PO ×2 (10:34→20:48)
[2019-10-28] MEDS: levoFLOXacin IV 750 MG/150 ML BAG 100 MG IV (10:39)
[2019-10-28] MEDS: oxyCODONE 5 MG Tablet PO (13:59)
[2019-10-28] MEDS: LORazepam 1 MG Tablet 2 MG PO ×2 (13:59→16:47)
[2019-10-29] VITALS (19 sets, daily range): BP systolic 111–164; BP diastolic 66–105; PULSE 75–107; RESP 16–30; TEMP 36.4–36.8; O2SAT 92–100
[2019-10-29] MEDS: Phenobarbital 32.4 MG Tablet PO ×6 (00:30→22:34)
[2019-10-29] MEDS: 0.9% Normal Saline 1,000 ML 100 ML IV ×3 (00:39→20:53)
[2019-10-29] MEDS: Ipratropium/Albuterol Sulfate 3 ML AMPUL.NEB INHALATION ×5 (03:38→19:50)
[2019-10-29] MEDS: predniSONE 20 MG Tablet 40 MG PO (08:57)
[2019-10-29] MEDS: Multivitamins,Ther W-Minerals Tablet 1 TABLET PO (08:57)
[2019-10-29] MEDS: Losartan Potassium 50 MG Tablet PO ×2 (09:03→22:34)
[2019-10-29] MEDS: amLODIPine 2.5 MG Tablet PO (09:03)
[2019-10-29] MEDS: Enoxaparin 40 MG/0.4 ML Syringe SC (09:08)
[2019-10-29] MEDS: levoFLOXacin IV 750 MG/150 ML BAG 100 MG IV (09:09)
[2019-10-29] MEDS: Famotidine 20 MG Tablet PO (10:04)
[2019-10-29] MEDS: oxyCODONE 5 MG Tablet PO ×2 (10:45→17:03)
--- NOTE | 2019-10-29 12:52 | PCM.PN.INT ---
Subjective: Patient transferred out of the intensive care unit. Patient continues on her phenobarbital taper and has been doing okay. Patient continues to have coughing episodes. Objective: On my evaluation, patient was on waterseal for approximately 2 hours. Patient did have bubbles associated with deep inhalation. Repeat x-ray is scheduled for 6 hours. General: Alert, Confused, Disoriented, Non-Cooperative, - - Appears older than stated age HEENT: Atraumatic, PERRLA, EOMI, Normocephalic, - - Scleral injection without icterus Oral: Moist Mucosa, No Gingival or Mucosal Lesions/ Ulcerations Neck: Supple, No JVD, No Nodes, Trachea Midline Lungs: No rhonchi, No wheeze, Diminished, Rales - Left chest Cardiovascular: Regular rate, Regular Rhythm, Normal S1, Normal S2, No murmurs, No rub noted, No Gallop, - - Left chest tube is clean, dry and intact Abdomen: Bowel Sounds Present, Soft, Non Tender, Non-Distended Extremities: No clubbing, No cyanosis, No edema, Capillary Refill Less than 3 Seconds Skin: No rashes, No breakdown Musculoskeletal: No Tenderness to Palpation of Joints or Extremities Lymphatic: No Cervical, Supraclavicular, or Inguinal Adenopathy Neurological: Cranial nerves II-XII grossly intact, Neuro grossly intact Psych/Mental Status: Anxious, Restless Vital Signs Temp Pulse Resp BP Pulse Ox 36.7 C 97 20 H 129/90 H 97 10/29/19 11:56 10/29/19 11:56 10/29/19 11:56 10/29/19 11:56 10/29/19 11:56 Oxygen Flow Rate (L/min) [6] 15 Oxygen Flow Rate (L/min) [4] 15 Oxygen Flow Rate (L/min) [3] 15 Oxygen Flow Rate (L/min) [2] 15 Oxygen Flow Rate (L/min) [1 ( 15 Initial Baseline)] Oxygen Flow Rate (L/min) 4 Oxygen Delivery Method [6] Non-Rebreather Oxygen Delivery Method [5] Non-Rebreather Oxygen Delivery Method [4] Non-Rebreather Oxygen Delivery Method [3] Non-Rebreather Oxygen Delivery Method [2] Non-Rebreather Oxygen Delivery Method [1 ( Non-Rebreather Initial Baseline)] Oxygen Delivery Method Nasal Cannula Weight: 52.5 kg Body Mass Index (BMI) 18.9 Intake and Output for Last 24 Hours 10/27/19 10/28/19 10/29/19 23:59 23:59 23:59 Intake Total 2975.69 / 3215.69 2789.18 / 2789.18 2130.00 / 2130.00 Output Total 2256 / 3006 2450 / 2450 2300 / 2300 Balance 719.69 / 209.69 339.18 / 339.18 -170.00 / -170.00 Labs (Last 48 Hours) 10/28/19 10/28/19 04:30 04:30 WBC 6.2 RBC 4.03 L Hgb 12.9 Hct 37.3 MCV 92.6 MCH 32.0 MCHC 34.6 RDW Std Deviation 41.4 RDW Coeff of Oral 12.1 Plt Count 316 MPV 9.6 Immature Gran % (Auto) 1.000 H Neut % (Auto) 89.4 H Lymph % (Auto) 5.4 L Irion % (Auto) 4.2 Eos % (Auto) 0.0 Baso % (Auto) 0.0 Absolute Neuts (auto) 5.5 Absolute Lymphs (auto) 0.33 L Nucleated RBC % 0 Differential Comment SCANNED Sodium 132 L Potassium 3.1 L Chloride 99 Carbon Dioxide 27.0 Anion Gap 6 BUN 14 Creatinine 0.27 L Estim Creat Clear Calc 46.56 Est GFR (MDRD) Af Amer 323 Est GFR (MDRD) Non-Af 267 BUN/Creatinine Ratio 51.9 H Glucose 127 H Calcium 7.5 L Phosphorus 2.8 Magnesium 1.9 Microbiology 10/24/19 07:24 Blood Culture (Wb) - Venous Blood Culture - Final No growth in 5 days. 10/25/19 09:30 Sputum, Expectorated/Coughed Gram Stain - Final 10/25/19 09:30 Sputum, Expectorated/Coughed Respiratory Culture - Final Haemophilus influenzae Medical Necessity - Tobacco Use Smoking Status: Current every day smoker Tobacco Use: Cigarettes Assessment/Plan All Active Problems (Last Reviewed 11/20/18 @ 06:36 by Maegan Jorge) Tension pneumothorax (Acute) Elevated troponin I level (Acute) Dyspnea (Acute) Acute respiratory failure with hypoxia (Acute) Back pain (Acute) RECOMMENDATIONS: 1. Attempt waterseal trial 2. Continue chest tube until leak subsided. Use high flow nasal cannula if necessary 3. Continue empiric antimicrobials, scheduled bronchodilators and wean prednisone over 12 to 14 days 4. Continue supplemental oxygen and wean to maintain saturations at or above 90%. 5. Continue phenobarbital taper. Continue thiamine and folate. 6. Possible need for transfer to CT surgery if unable to develop seal soon for pleurodesis IMPRESSIONS: 1. Acute hypoxemic respiratory failure due to pneumothorax Unclear if the patient's presenting pneumothorax represents a primary spontaneous etiology versus traumatic from questionable fall. She does have underlying bilateral emphysematous changes and bullous disease, primarily in the upper lobes. Her presentation may be the consequence of ruptured bullae. Patient does have left-sided crepitus and leak increases after coughing episodes. Regardless, she has undergone tube thoracotomy. The patient decompensated from a respiratory perspective on October 24, requiring transfer to the ICU and subsequent initiation of BiPAP therapy. Continue chest tube to wall suction previously. Attempting waterseal challenge. No positive pressure has been required for over 24 hours. Management is complicated by H. influenzae pneumonia with paroxysmal coughing. For now, continue scheduled bronchodilators, empiric antimicrobials and p.o. steroids. Continue to wean supplemental oxygen as tolerated. 2. Presumptive COPD with extensive tobacco abuse history/right upper lobe pulmonary nodule The patient has an extensive smoking history and continues to smoke daily. Although she was previously referred to the pulmonary clinic in 2019, the patient failed to present for her office visit. Upon discharge, the patient would likely benefit from outpatient pulmonary follow-up so that baseline pulmonary function studies can be obtained. In addition, the patient has a known right upper lobe lung nodule, which will need to be followed longitudinally. 3. H. influenzae pneumonia The patient presented with radiographic evidence of a left lower lobe infiltrate. She will be continued on therapy for a presumptive COPD exacerbation with scheduled bronchodilators, antimicrobials and IV steroids. Patient does have right lower lobe atelectasis and a pleural effusion, but this is likely secondary to splinting associated with the chest tube more than progression of pneumonia. No fevers been noted overnight. 4. History of alcohol dependency/CODE STATUS The patient reports a longstanding history of daily alcohol use, typically 6+ beers per day. She will need to be monitored closely for any alcohol withdrawal symptoms. Continue thiamine and folate accordingly. Replete electrolytes as necessary CODE STATUS was previously discussed and confirmed to be full code. Inpatient E&M: 63195 Subs Hosp L2
--- NOTE | 2019-10-29 13:39 | PCM.PN.HOSP ---
Patient Problems: Active and Suspected Problems (Last Reviewed 11/20/18 @ 06:36 by Maegan Jorge) Tension pneumothorax (Acute) Elevated troponin I level (Acute) Dyspnea (Acute) Acute respiratory failure with hypoxia (Acute) Subjective: Resting comfortably, no issues overnight. She has been doing well with the phenobarbital taper Vitals/I&O's: Vital Signs Temp Pulse Resp BP Pulse Ox 98.0 F 97 20 H 129/90 H 97 10/29/19 11:56 10/29/19 11:56 10/29/19 11:56 10/29/19 11:56 10/29/19 11:56 Oxygen Flow Rate (L/min) [6] 15 Oxygen Flow Rate (L/min) [4] 15 Oxygen Flow Rate (L/min) [3] 15 Oxygen Flow Rate (L/min) [2] 15 Oxygen Flow Rate (L/min) [1 ( 15 Initial Baseline)] Oxygen Flow Rate (L/min) 4 Oxygen Delivery Method [6] Non-Rebreather Oxygen Delivery Method [5] Non-Rebreather Oxygen Delivery Method [4] Non-Rebreather Oxygen Delivery Method [3] Non-Rebreather Oxygen Delivery Method [2] Non-Rebreather Oxygen Delivery Method [1 ( Non-Rebreather Initial Baseline)] Oxygen Delivery Method Nasal Cannula Weight: 115 lb 11.883 oz Body Mass Index (BMI) 18.9 Intake and Output for Last 24 Hours 10/27/19 10/28/19 10/29/19 23:59 23:59 23:59 Intake Total 2975.69 / 3215.69 2789.18 / 2789.18 2130.00 / 2130.00 Output Total 2256 / 3006 2450 / 2450 2300 / 2300 Balance 719.69 / 209.69 339.18 / 339.18 -170.00 / -170.00 General: Alert, Oriented x3, Cooperative, No apparent distress HEENT: Atraumatic, PERRLA, EOMI, Normocephalic Oral: Moist Mucosa Neck: Supple, No JVD Lungs: No rhonchi, mild wheezing bilaterally, diminished Cardiovascular: Regular rate, Regular Rhythm, Normal S1, Normal S2, No murmurs Abdomen: Soft, Non Tender, Non-Distended, No Hepato-splenomegaly Extremities: No edema, Capillary Refill Less than 3 Seconds Skin: No rashes, No breakdown Neurological: Neuro grossly intact, Sensory exam intact to light touch and pain Psych/Mental Status: Normal Affect, Appropriate Microbiology Past 72 Hours 10/24/19 07:24 Blood Culture (Wb) - Venous Blood Culture - Final No growth in 5 days. 10/25/19 09:30 Sputum, Expectorated/Coughed Gram Stain - Final 10/25/19 09:30 Sputum, Expectorated/Coughed Respiratory Culture - Final Haemophilus influenzae Current Medications Acetaminophen (Tylenol) 650 mg PO Q6H PRN PRN PRN Reason: Pain Score 1-10/Temp > 100.7 F Albuterol Sulfate (Ventolin Aerosols) 2.5 mg INHALATION Q6H PRN PRN PRN Reason: sob/wheezing Last Admin: 10/28/19 02:56 Dose: 2.5 mg Documented by: Albuterol/Ipratropium (Duoneb) 3 ml INHALATION Q4HWA.RT [facility] Last Admin: 10/29/19 10:51 Dose: 3 ml Documented by: Amlodipine Besylate (Norvasc) 2.5 mg PO DAILY [facility] Last Admin: 10/29/19 09:03 Dose: 2.5 mg Documented by: Enoxaparin Sodium (Lovenox) 40 mg SC DAILY [facility] Last Admin: 10/29/19 09:08 Dose: 40 mg Documented by: Famotidine (Pepcid) 20 mg PO DAILY [facility] Last Admin: 10/29/19 10:04 Dose: 20 mg Documented by: Hydralazine HCl (Apresoline Iv) 10 mg IV Q6H PRN PRN PRN Reason: BLOOD PRESSURE Sodium Chloride () 1,000 mls @ 100 mls/hr IV .Q10H [facility] Last Infusion: 10/29/19 10:40 Dose: 100 mls/hr Documented by: Sodium Chloride () 250 mls @ 15 mls/hr IV .[id number] PRN PRN Reason: Saline Flush Sodium Chloride () 250 mls @ 15 mls/hr IV .[id number] PRN PRN Reason: Additional IVPB Infusion Levofloxacin (Levaquin Tablet) 750 mg PO DAILY@0600 [facility] Lorazepam (Ativan) 2 mg PO Q2H PRN PRN; Protocol PRN Reason: CIWA score > 8 but <15 Last Admin: 10/28/19 16:47 Dose: 2 mg Documented by: Lorazepam (Ativan) 2 mg PO UD PRN; Protocol PRN Reason: CIWA score >/=15. Lorazepam (Ativan) 2 mg IV Q2H PRN PRN; Protocol PRN Reason: CIWA score > 8 but <15 Last Admin: 10/26/19 19:24 Dose: 2 mg Documented by: Lorazepam (Ativan) 2 mg IV UD PRN; Protocol PRN Reason: CIWA score >/=15. Losartan Potassium (Cozaar) 50 mg PO BID [facility] Last Admin: 10/29/19 09:03 Dose: 50 mg Documented by: Multivitamins/Minerals (Multivitamin With Minerals (Bkc)) 1 tablet PO DAILYCM [facility] Last Admin: 10/29/19 08:57 Dose: 1 tablet Documented by: Nutritional Formula (Lactose Free) (Ensure Enlive) 120 ml PO 4X/DAY [facility] Last Admin: 10/29/19 09:13 Dose: Not Given Documented by: Ondansetron HCl (Zofran) 4 mg IV Q8H PRN PRN PRN Reason: NAUSEA/VOMITING Oxycodone HCl (Oxyir) 5 mg PO Q6H PRN PRN PRN Reason: Pain Score 4-10/10 Last Admin: 10/29/19 10:45 Dose: 5 mg Documented by: Phenobarbital (Phenobarbital) 64.8 mg PO Q4H [facility]; Taper Stop: 10/31/19 15:29 Last Admin: 10/29/19 10:45 Dose: 64.8 mg Documented by: Prednisone () 40 mg PO DAILY@0800 [facility] Last Admin: 10/29/19 08:57 Dose: 40 mg Documented by: Sodium Chloride () 10 - 40 ml IV UD PRN PRN Reason: SALINE FLUSH Last Admin: 10/28/19 00:24 Dose: 10 ml Documented by: STROKE Vital Signs/Narrative: Vital Signs Temp Pulse Resp BP Pulse Ox 10/29/19 11:56 98.0 F 97 20 H 129/90 H 97 10/29/19 11:00 104 H 10/29/19 10:55 98 19 H 10/29/19 10:00 98.3 F 102 H 18 129/90 H 92 Medical Necessity - Tobacco Use Smoking Status: Current every day smoker Tobacco Use: Cigarettes Assessment/Plan All Active Problems (Last Reviewed 11/20/18 @ 06:36 by Maegan Jorge) Tension pneumothorax (Acute) Elevated troponin I level (Acute) Dyspnea (Acute) Acute respiratory failure with hypoxia (Acute) Back pain (Acute) 1. Acute hypoxic respiratory failure secondary to tension pneumothorax on the left and a left lower lobe immunity acquired pneumonia/severe bilateral emphysema with a COPD exacerbation/tobacco abuse/right upper lobe nodule -Continue with Levaquin, sputum cultures growing Haemophilus influenza -Chest tube placed, will place on waterseal and repeat a chest x-ray in 6 hours -A year ago in August she had a right upper lobe mass of around 7 mm she will need to follow-up with outpatient pulmonology for follow-up -Discussed tobacco cessation -Appreciate pulmonology's assistance -Continue with her home medications once her medication list is updated -Continue with duo nebs as well as p.o. steroids 2. Elevated troponin/HTN -Initial troponin was 0.388, EKG was unremarkable and she is not complaining of any chest pain -Repeat troponins went to 1.25, this is likely related to the severe hypoxia troponin did trend down to 1.190, and an echo had an EF of 55% with normal diastolic function without a wall motion abnormality therefore this elevated troponin is truly related to her hypoxia and her tension pneumothorax 3. Alcohol abuse -She drinks about 7-10 beers a day, and she will not go to rehab -As of her need to transition to BiPAP she was unable to take her 2 beers with every meal therefore she had been started on a Precedex drip which was discontinued, and will continue on a phenobarbital taper to complete her alcohol withdrawal protocol DVT: Lovenox Inpatient E&M: 87989 Subs Hosp L2
--- NOTE | 2019-10-29 16:35 | RAD_ITS ---
STUDY: X-RAY CHEST REASON FOR EXAM: Female, 64 years old. TENSION PNEUMOTHORAX TECHNIQUE: 2 views COMPARISON: Prior chest radiograph 10/28/2019 FINDINGS: A right chest tube remains present ending in the posterior right upper pleural space. There is a minimal anterior pneumothorax measuring 5 mm from the visceral to the parietal pleura at the midsternal level as demonstrated on lateral radiograph. Subcutaneous emphysema on the left is subsiding. Continued bilateral advanced emphysematous changes. The right pleural effusion has somewhat shifted into the oblique fissure and/or she has partial right middle lobe atelectasis. Normal size heart. Normal mediastinum and tripp. Normal visualized pulmonary arteries. There is atherosclerotic calcification of the aortic arch with tortuosity. 1 old severe upper thoracic compression deformity present on a prior CT exam of 08/24/2018 Normal visualized ribs, clavicles, and shoulders. There is no demonstrated abnormality of the visualized soft tissue structures of the upper abdomen. RAD/Chest PA and Lateral IMPRESSION: Right chest tube remains present ending in the posterior right upper pleural space. Pneumothorax is visible only on the lateral radiograph anteriorly measuring 5 mm from the visceral to the parietal pleura at the midsternal level. Subcutaneous emphysema is diminishing. Continued severe COPD. The right pleural effusion has somewhat shifted into the oblique fissure and/or she has partial right middle lobe atelectasis. Electronically Signed: Sujata Mulligan MD at 17:32 EDT , Service support ,
[2019-10-30] VITALS (16 sets, daily range): BP systolic 112–139; BP diastolic 80–91; PULSE 63–159; RESP 16–20; TEMP 36.6–36.9; O2SAT 90–98
[2019-10-30] MEDS: oxyCODONE 5 MG Tablet PO ×4 (00:18→20:25)
[2019-10-30] MEDS: Albuterol 2.5 MG/3 ML VIAL.NEB. INHALATION (01:30)
[2019-10-30] MEDS: Phenobarbital 32.4 MG Tablet PO ×4 (02:37→20:52)
[2019-10-30] MEDS: levoFLOXacin 750 MG Tablet PO (04:54)
--- NOTE | 2019-10-30 05:55 | RAD_ITS ---
STUDY: X-RAY CHEST REASON FOR EXAM: Female, 64 years old. Tension pneumothorax TECHNIQUE: AP and lateral views of the chest. COMPARISON: Comparison is made with prior study dated 10/29/2019. FINDINGS: The left-sided chest tube is seen. The tip is in the left apex. This is unchanged. EKG electrodes are seen. Stable subcutaneous emphysema overlying the left thorax and upper left abdominal wall. There is evidence of a residual small left apical pneumothorax. Hyperinflation. Stable increased markings in the posterior medial aspect of the left lower lobe. Stable scarring at the right lung apex. Normal size heart. Normal mediastinum and tripp. Normal visualized pulmonary arteries. Normal visualized aortic arch and descending thoracic aorta. There is demineralization of the osseous structures. Stable almost complete adenopathy or thoracic vertebrae. Normal visualized ribs, clavicles, and shoulders. There is no demonstrated abnormality of the visualized soft tissue structures of the upper abdomen. RAD/Chest PA and Lateral IMPRESSION: Stable small left apical pneumothorax. The remainder the examination is unchanged. Electronically Signed: Roni Sanchez, at 7:25 EDT , Service support ,
[2019-10-30] MEDS: 0.9% Normal Saline 1,000 ML 100 ML IV (06:16)
[2019-10-30 06:44] LABS: Anion Gap 7 (5-15); BUN 8 mg/dL (7-18); Calcium,Total 7.5 mg/dL (8.5-10.1); Chloride 94 mmol/L (98-107); Creatinine, Serum 0.33 mg/dL (0.55-1.02); EST Glomerular Filtration Rate 209 mL/min (>60); Est Glom Filt Rate - Afr Amer 253 mL/min (>60); Estimated Creatinine Clearance 46.48 ml/min; Glucose 86 mg/dL (74-106); Potassium 2.7 mmol/L (3.5-5.1); Sodium Level 130 mmol/L (136-145)
[2019-10-30] MEDS: Ipratropium/Albuterol Sulfate 3 ML AMPUL.NEB INHALATION ×4 (07:13→19:55)
[2019-10-30] MEDS: predniSONE 20 MG Tablet 40 MG PO (09:02)
[2019-10-30] MEDS: Enoxaparin 40 MG/0.4 ML Syringe SC (09:02)
[2019-10-30] MEDS: Famotidine 20 MG Tablet PO (09:02)
[2019-10-30] MEDS: Multivitamins,Ther W-Minerals Tablet 1 TABLET PO (09:02)
[2019-10-30] MEDS: amLODIPine 2.5 MG Tablet PO (09:02)
[2019-10-30] MEDS: Losartan Potassium 50 MG Tablet PO ×2 (09:02→21:00)
--- NOTE | 2019-10-30 09:07 | PCM.PN.HOSP ---
Patient Problems: Active and Suspected Problems (Last Reviewed 11/20/18 @ 06:36 by Maegan Jorge) Tension pneumothorax (Acute) Elevated troponin I level (Acute) Dyspnea (Acute) Acute respiratory failure with hypoxia (Acute) Subjective: Wants the chest tube out, breathing okay, no issues overnight. Vitals/I&O's: Vital Signs Temp Pulse Resp BP Pulse Ox 97.9 F 96 18 139/80 H 95 10/30/19 08:54 10/30/19 08:54 10/30/19 08:54 10/30/19 08:54 10/30/19 08:54 Oxygen Flow Rate (L/min) [6] 15 Oxygen Flow Rate (L/min) [4] 15 Oxygen Flow Rate (L/min) [3] 15 Oxygen Flow Rate (L/min) [2] 15 Oxygen Flow Rate (L/min) [1 ( 15 Initial Baseline)] Oxygen Flow Rate (L/min) 4 Oxygen Delivery Method [6] Non-Rebreather Oxygen Delivery Method [5] Non-Rebreather Oxygen Delivery Method [4] Non-Rebreather Oxygen Delivery Method [3] Non-Rebreather Oxygen Delivery Method [2] Non-Rebreather Oxygen Delivery Method [1 ( Non-Rebreather Initial Baseline)] Oxygen Delivery Method Nasal Cannula Weight: 117 lb 4.575 oz Body Mass Index (BMI) 18.9 Intake and Output for Last 24 Hours 10/28/19 10/29/19 10/30/19 23:59 23:59 23:59 Intake Total 2789.18 / 2789.18 3246.67 / 3246.67 978.33 / 978.33 Output Total 2450 / 2450 2750 / 2750 275 / 275 Balance 339.18 / 339.18 496.67 / 496.67 703.33 / 703.33 General: Alert, Oriented x3, Cooperative, No apparent distress HEENT: Atraumatic, PERRLA, EOMI, Normocephalic Oral: Moist Mucosa Neck: Supple, No JVD Lungs: No rhonchi, mild wheezing bilaterally, diminished Cardiovascular: Regular rate, Regular Rhythm, Normal S1, Normal S2, No murmurs Abdomen: Soft, Non Tender, Non-Distended, No Hepato-splenomegaly Extremities: No edema, Capillary Refill Less than 3 Seconds Skin: No rashes, No breakdown Neurological: Neuro grossly intact, Sensory exam intact to light touch and pain Psych/Mental Status: Normal Affect, Appropriate Microbiology Past 72 Hours 10/24/19 07:24 Blood Culture (Wb) - Venous Blood Culture - Final No growth in 5 days. 10/25/19 09:30 Sputum, Expectorated/Coughed Gram Stain - Final 10/25/19 09:30 Sputum, Expectorated/Coughed Respiratory Culture - Final Haemophilus influenzae Laboratory Results 10/30/19 05:54: Sodium 130 L, Potassium 2.7 L*, Chloride 94 L, Carbon Dioxide 29.0, Anion Gap 7, BUN 8, Creatinine 0.33 L, Estim Creat Clear Calc 46.48, Est GFR (MDRD) Af Amer 253, Est GFR (MDRD) Non-Af 209, BUN/Creatinine Ratio 24.0 H, Glucose 86, Calcium 7.5 L Current Medications Acetaminophen (Tylenol) 650 mg PO Q6H PRN PRN PRN Reason: Pain Score 1-10/Temp > 100.7 F Albuterol Sulfate (Ventolin Aerosols) 2.5 mg INHALATION Q6H PRN PRN PRN Reason: sob/wheezing Last Admin: 10/30/19 01:30 Dose: 2.5 mg Documented by: Albuterol/Ipratropium (Duoneb) 3 ml INHALATION Q4HWA.RT [facility] Last Admin: 10/30/19 07:13 Dose: 3 ml Documented by: Amlodipine Besylate (Norvasc) 2.5 mg PO DAILY [facility] Last Admin: 10/30/19 09:02 Dose: 2.5 mg Documented by: Enoxaparin Sodium (Lovenox) 40 mg SC DAILY [facility] Last Admin: 10/30/19 09:02 Dose: 40 mg Documented by: Famotidine (Pepcid) 20 mg PO DAILY [facility] Last Admin: 10/30/19 09:02 Dose: 20 mg Documented by: Hydralazine HCl (Apresoline Iv) 10 mg IV Q6H PRN PRN PRN Reason: BLOOD PRESSURE Sodium Chloride () 1,000 mls @ 100 mls/hr IV .Q10H [facility] Last Infusion: 10/30/19 06:40 Dose: 0 mls/hr Documented by: Sodium Chloride () 250 mls @ 15 mls/hr IV .[id number] PRN PRN Reason: Saline Flush Sodium Chloride () 250 mls @ 15 mls/hr IV .[id number] PRN PRN Reason: Additional IVPB Infusion Potassium Chloride 40 meq/ (Sodium Chloride) 520 mls @ 130 mls/hr IV .Q4H [facility] Stop: 10/30/19 10:59 Last Admin: 10/30/19 07:33 Dose: 130 mls/hr Documented by: Potassium Chloride 40 meq/ (Sodium Chloride) 520 mls @ 130 mls/hr IV .Q4H [facility] Stop: 10/30/19 14:59 Levofloxacin (Levaquin Tablet) 750 mg PO DAILY@0600 [facility] Last Admin: 10/30/19 04:54 Dose: 750 mg Documented by: Lorazepam (Ativan) 2 mg PO Q2H PRN PRN; Protocol PRN Reason: CIWA score > 8 but <15 Last Admin: 10/28/19 16:47 Dose: 2 mg Documented by: Lorazepam (Ativan) 2 mg PO UD PRN; Protocol PRN Reason: CIWA score >/=15. Lorazepam (Ativan) 2 mg IV Q2H PRN PRN; Protocol PRN Reason: CIWA score > 8 but <15 Last Admin: 10/26/19 19:24 Dose: 2 mg Documented by: Lorazepam (Ativan) 2 mg IV UD PRN; Protocol PRN Reason: CIWA score >/=15. Losartan Potassium (Cozaar) 50 mg PO BID [facility] Last Admin: 10/30/19 09:02 Dose: 50 mg Documented by: Multivitamins/Minerals (Multivitamin With Minerals (Bkc)) 1 tablet PO DAILYCM [facility] Last Admin: 10/30/19 09:02 Dose: 1 tablet Documented by: Nutritional Formula (Lactose Free) (Ensure Enlive) 120 ml PO 4X/DAY [facility] Last Admin: 10/29/19 22:34 Dose: Not Given Documented by: Ondansetron HCl (Zofran) 4 mg IV Q8H PRN PRN PRN Reason: NAUSEA/VOMITING Oxycodone HCl (Oxyir) 5 mg PO Q6H PRN PRN PRN Reason: Pain Score 4-10/10 Last Admin: 10/30/19 06:11 Dose: 5 mg Documented by: Phenobarbital (Phenobarbital) 64.8 mg PO Q6H [facility]; Taper Stop: 10/31/19 15:29 Last Admin: 10/30/19 02:37 Dose: 64.8 mg Documented by: Prednisone () 40 mg PO DAILY@0800 [facility] Last Admin: 10/30/19 09:02 Dose: 40 mg Documented by: Sodium Chloride () 10 - 40 ml IV UD PRN PRN Reason: SALINE FLUSH Last Admin: 10/28/19 00:24 Dose: 10 ml Documented by: STROKE Vital Signs/Narrative: Vital Signs Temp Pulse Resp BP Pulse Ox 10/30/19 08:54 97.9 F 96 18 139/80 H 95 10/30/19 07:13 80 18 90 10/30/19 07:08 103 H Medical Necessity - Tobacco Use Smoking Status: Current every day smoker Tobacco Use: Cigarettes Assessment/Plan All Active Problems (Last Reviewed 11/20/18 @ 06:36 by Maegan Jorge) Tension pneumothorax (Acute) Elevated troponin I level (Acute) Dyspnea (Acute) Acute respiratory failure with hypoxia (Acute) Back pain (Acute) 1. Acute hypoxic respiratory failure secondary to tension pneumothorax on the left and a left lower lobe immunity acquired pneumonia/severe bilateral emphysema with a COPD exacerbation/tobacco abuse/right upper lobe nodule -Continue with Levaquin, sputum cultures growing Haemophilus influenza -Chest tube placed, she was placed on waterseal yesterday morning, repeat chest x-ray showed a small pneumo on the lateral film, this morning while she was maintained on waterseal the pneumothorax did not enlarge. We will continue with waterseal -A year ago in August she had a right upper lobe mass of around 7 mm she will need to follow-up with outpatient pulmonology for follow-up -Discussed tobacco cessation -Appreciate pulmonology's assistance -Continue with her home medications once her medication list is updated -Continue with duo nebs as well as p.o. steroids 2. Elevated troponin/HTN -Initial troponin was 0.388, EKG was unremarkable and she is not complaining of any chest pain -Repeat troponins went to 1.25, this is likely related to the severe hypoxia troponin did trend down to 1.190, and an echo had an EF of 55% with normal diastolic function without a wall motion abnormality therefore this elevated troponin is truly related to her hypoxia and her tension pneumothorax 3. Alcohol abuse -She drinks about 7-10 beers a day, and she will not go to rehab -Continue with alcohol withdrawal protocol with phenobarb taper DVT: Lovenox Inpatient E&M: 13622 Subs Hosp L2
--- NOTE | 2019-10-30 14:53 | PN_ITS ---
Patient Problems: Active and Suspected Problems (Last Reviewed 11/20/18 @ 06:36 by Maegan Jorge) Tension pneumothorax (Acute) Elevated troponin I level (Acute) Dyspnea (Acute) Acute respiratory failure with hypoxia (Acute) Subjective: Patient did okay overnight. Patient asking to go home and denies any chest pain at this time. Patient is not reporting shortness of breath Objective: Patient with air leak on deep inhalation noted on chest tube - Physical Exam Vitals/I&O's: Vital Signs Temp Pulse Resp BP Pulse Ox 36.9 C 103 H 17 112/86 H 95 10/30/19 13:54 10/30/19 13:54 10/30/19 13:54 10/30/19 13:54 10/30/19 13:54 Oxygen Flow Rate (L/min) [6] 15 Oxygen Flow Rate (L/min) [4] 15 Oxygen Flow Rate (L/min) [3] 15 Oxygen Flow Rate (L/min) [2] 15 Oxygen Flow Rate (L/min) [1 ( 15 Initial Baseline)] Oxygen Flow Rate (L/min) 4 Oxygen Delivery Method [6] Non-Rebreather Oxygen Delivery Method [5] Non-Rebreather Oxygen Delivery Method [4] Non-Rebreather Oxygen Delivery Method [3] Non-Rebreather Oxygen Delivery Method [2] Non-Rebreather Oxygen Delivery Method [1 ( Non-Rebreather Initial Baseline)] Oxygen Delivery Method Nasal Cannula Weight: 53.2 kg Body Mass Index (BMI) 18.9 Intake and Output for Last 24 Hours 10/28/19 10/29/19 10/30/19 23:59 23:59 23:59 Intake Total 2789.18 / 2789.18 3246.67 / 3246.67 2148.33 / 2148.33 Output Total 2450 / 2450 2750 / 2750 305 / 305 Balance 339.18 / 339.18 496.67 / 496.67 1843.33 / 1843.33 General: Alert, Confused, Disoriented, - - Appears older than stated age HEENT: Atraumatic, PERRLA, EOMI, Normocephalic, - - No scleral icterus or injection noted Oral: Moist Mucosa, No Gingival or Mucosal Lesions/ Ulcerations Neck: Supple, No JVD, No Nodes Lungs: No wheeze, Diminished, Rales - Left, - - Symmetric expansion Cardiovascular: Regular rate, Regular Rhythm, Normal S1, Normal S2, No murmurs, No rub noted, No Gallop Abdomen: Bowel Sounds Present, Soft, Non Tender, Non-Distended Extremities: No cyanosis, No edema, Capillary Refill Less than 3 Seconds Skin: - - Chest tube is clean, dry and intact Musculoskeletal: No Tenderness to Palpation of Joints or Extremities Lymphatic: No Cervical, Supraclavicular, or Inguinal Adenopathy Neurological: Cranial nerves II-XII grossly intact, Neuro grossly intact Psych/Mental Status: Anxious Microbiology Past 72 Hours 10/24/19 07:24 Blood Culture (Wb) - Venous Blood Culture - Final No growth in 5 days. 10/25/19 09:30 Sputum, Expectorated/Coughed Gram Stain - Final 10/25/19 09:30 Sputum, Expectorated/Coughed Respiratory Culture - Final Haemophilus influenzae Laboratory Results 10/30/19 05:54: Sodium 130 L, Potassium 2.7 L*, Chloride 94 L, Carbon Dioxide 29.0, Anion Gap 7, BUN 8, Creatinine 0.33 L, Estim Creat Clear Calc 46.48, Est GFR (MDRD) Af Amer 253, Est GFR (MDRD) Non-Af 209, BUN/Creatinine Ratio 24.0 H, Glucose 86, Calcium 7.5 L Current Medications Acetaminophen (Tylenol) 650 mg PO Q6H PRN PRN PRN Reason: Pain Score 1-10/Temp > 100.7 F Albuterol Sulfate (Ventolin Aerosols) 2.5 mg INHALATION Q6H PRN PRN PRN Reason: sob/wheezing Last Admin: 10/30/19 01:30 Dose: 2.5 mg Documented by: Albuterol/Ipratropium (Duoneb) 3 ml INHALATION Q4HWA.RT [facility] Last Admin: 10/30/19 11:15 Dose: 3 ml Documented by: Amlodipine Besylate (Norvasc) 2.5 mg PO DAILY [facility] Last Admin: 10/30/19 09:02 Dose: 2.5 mg Documented by: Enoxaparin Sodium (Lovenox) 40 mg SC DAILY [facility] Last Admin: 10/30/19 09:02 Dose: 40 mg Documented by: Famotidine (Pepcid) 20 mg PO DAILY [facility] Last Admin: 10/30/19 09:02 Dose: 20 mg Documented by: Hydralazine HCl (Apresoline Iv) 10 mg IV Q6H PRN PRN PRN Reason: BLOOD PRESSURE Sodium Chloride () 1,000 mls @ 100 mls/hr IV .Q10H [facility] Last Infusion: 10/30/19 06:40 Dose: 0 mls/hr Documented by: Sodium Chloride () 250 mls @ 15 mls/hr IV .[id number] PRN PRN Reason: Saline Flush Sodium Chloride () 250 mls @ 15 mls/hr IV .[id number] PRN PRN Reason: Additional IVPB Infusion Potassium Chloride 40 meq/ (Sodium Chloride) 520 mls @ 130 mls/hr IV .Q4H [facility] Stop: 10/30/19 14:59 Last Admin: 10/30/19 11:37 Dose: 130 mls/hr Documented by: Levofloxacin (Levaquin Tablet) 750 mg PO DAILY@0600 [facility] Last Admin: 10/30/19 04:54 Dose: 750 mg Documented by: Lorazepam (Ativan) 2 mg PO Q2H PRN PRN; Protocol PRN Reason: CIWA score > 8 but <15 Last Admin: 10/28/19 16:47 Dose: 2 mg Documented by: Lorazepam (Ativan) 2 mg PO UD PRN; Protocol PRN Reason: CIWA score >/=15. Lorazepam (Ativan) 2 mg IV Q2H PRN PRN; Protocol PRN Reason: CIWA score > 8 but <15 Last Admin: 10/26/19 19:24 Dose: 2 mg Documented by: Lorazepam (Ativan) 2 mg IV UD PRN; Protocol PRN Reason: CIWA score >/=15. Losartan Potassium (Cozaar) 50 mg PO BID [facility] Last Admin: 10/30/19 09:02 Dose: 50 mg Documented by: Multivitamins/Minerals ([facility]it[facility] With [facility] ([facility])) [facility] Last Admin: 10/30/19 09:02 Dose: 1 tablet Documented by: Nutritional Formula (Lactose Free) (Ensure Enlive) 120 ml PO 4X/DAY [facility] Last Admin: 10/30/19 13:52 Dose: 120 ml Documented by: Ondansetron HCl (Zofran) 4 mg IV Q8H PRN PRN PRN Reason: NAUSEA/VOMITING Oxycodone HCl (Oxyir) 5 mg PO Q6H PRN PRN PRN Reason: Pain Score 4-10/10 Last Admin: 10/30/19 13:48 Dose: 5 mg Documented by: Phenobarbital (Phenobarbital) 64.8 mg PO Q6H [facility]; Taper Stop: 10/31/19 15:29 Last Admin: 10/30/19 14:36 Dose: 32.4 mg Documented by: Prednisone () 40 mg PO DAILY@0800 [facility] Last Admin: 10/30/19 09:02 Dose: 40 mg Documented by: Sodium Chloride () 10 - 40 ml IV UD PRN PRN Reason: SALINE FLUSH Last Admin: 10/28/19 00:24 Dose: 10 ml Documented by: Clinical Impression(s) from Imaging Studies Chest X-Ray 10/29/19 16:35 IMPRESSION: Right chest tube remains present ending in the posterior right upper pleural space. Pneumothorax is visible only on the lateral radiograph anteriorly measuring 5 mm from the visceral to the parietal pleura at the midsternal level. Subcutaneous emphysema is diminishing. Continued severe COPD. The right pleural effusion has somewhat shifted into the oblique fissure and/or she has partial right middle lobe atelectasis. Electronically Signed: Sujata Mulligan MD at 17:32 EDT , Service support , Chest X-Ray 10/30/19 05:55 IMPRESSION: Stable small left apical pneumothorax. The remainder the examination is unchanged. Electronically Signed: Roni Sanchez, at 7:25 EDT , Service support , Medical Necessity - Tobacco Use Smoking Status: Current every day smoker Tobacco Use: Cigarettes Assessment/Plan All Active Problems (Last Reviewed 11/20/18 @ 06:36 by Maegan Jorge) Tension pneumothorax (Acute) Elevated troponin I level (Acute) Dyspnea (Acute) Acute respiratory failure with hypoxia (Acute) Back pain (Acute) RECOMMENDATIONS: 1. Attempt waterseal trial. If patient still has an air leak tomorrow, recommend transfer for CT surgery evaluation 2. Continue chest tube until leak subsided. Use high flow nasal cannula if necessary 3. Continue empiric antimicrobials, scheduled bronchodilators and wean prednisone over 12 to 14 days 4. Continue supplemental oxygen and wean to maintain saturations at or above 90%. 5. Continue phenobarbital taper. Continue thiamine and folate. IMPRESSIONS: 1. Acute hypoxemic respiratory failure due to pneumothorax Unclear if the patient's presenting pneumothorax represents a primary spontaneous etiology versus traumatic from questionable fall. She does have underlying bilateral emphysematous changes and bullous disease, primarily in the upper lobes. Her presentation may be the consequence of ruptured bullae. Patient does have left-sided crepitus and leak increases after coughing episodes. Regardless, she has undergone tube thoracotomy. The patient decompensated from a respiratory perspective on October 24, requiring transfer to the ICU and subsequent initiation of BiPAP therapy. Continue chest tube to wall suction previously. Patient has had suction for 4 days and waterseal for 2 days. Small apical pneumothorax noted, but not expanding. Patient did have previous tension physiology, so if continues to have an air leak, recommend evaluation by CT surgery for possible talc 2. Presumptive COPD with extensive tobacco abuse history/right upper lobe pulmonary nodule The patient has an extensive smoking history and continues to smoke daily. Although she was previously referred to the pulmonary clinic in 2019, the patient failed to present for her office visit. Upon discharge, the patient would likely benefit from outpatient pulmonary follow-up so that baseline pulmonary function studies can be obtained. In addition, the patient has a known right upper lobe lung nodule, which will need to be followed longitudinally. 3. H. influenzae pneumonia The patient presented with radiographic evidence of a left lower lobe infiltrate. She will be continued on therapy for a presumptive COPD exacerbation with scheduled bronchodilators, antimicrobials and IV steroids. Patient does have right lower lobe atelectasis and a pleural effusion, but this is likely secondary to splinting associated with the chest tube more than progression of pneumonia. No fevers been noted overnight. 4. History of alcohol dependency/CODE STATUS The patient reports a longstanding history of daily alcohol use, typically 6+ beers per day. She will need to be monitored closely for any alcohol withdrawal symptoms. Continue thiamine and folate accordingly. Replete electrolytes as necessary CODE STATUS was previously discussed and confirmed to be full code. Inpatient E&M: 57985 Subs Hosp L2
--- NOTE | 2019-10-30 17:00 | RAD_ITS ---
STUDY: X-RAY CHEST REASON FOR EXAM: Female, 64 years old. Tension pneumothorax. TECHNIQUE: 1 view 4:58 PM COMPARISON: Prior chest radiograph of 09/13/2019 at 6:51 AM FINDINGS: Left chest tube remains and terminates in the left lung apex. No substantial residual pneumothorax. Stable subcutaneous emphysema on the left. Stable chronic changes of the right lung without new consolidation or evidence of a substantial pleural effusion. Normal size heart. Normal mediastinum and tripp. Normal visualized pulmonary arteries. There is atherosclerotic calcification of the aortic arch with tortuosity. Normal visualized thoracic spine. Normal visualized ribs, clavicles, and shoulders. There is no demonstrated abnormality of the visualized soft tissue structures of the upper abdomen. RAD/Chest 1 View (Portable) IMPRESSION: Left chest tube unchanged with no substantial residual pneumothorax. Stable subcutaneous emphysema. Stable chronic changes of the right lung. Electronically Signed: Sujata Mulligan MD at 17:59 EDT , Service support ,
[2019-10-30] MEDS: Acetaminophen 325 MG Tablet 650 MG PO (20:24)
[2019-10-30] MEDS: 0.9% Saline Lock 10 ML Syringe IV (20:55)
[2019-10-31] VITALS (12 sets, daily range): BP systolic 107–133; BP diastolic 57–103; PULSE 60–103; RESP 18–21; TEMP 36.6–37; O2SAT 94–99
[2019-10-31] MEDS: 0.9% Normal Saline 1,000 ML 100 ML IV ×3 (02:45→22:41)
[2019-10-31] MEDS: Phenobarbital 32.4 MG Tablet PO ×2 (02:45→09:11)
[2019-10-31] MEDS: oxyCODONE 5 MG Tablet PO ×3 (04:32→18:19)
--- NOTE | 2019-10-31 05:30 | RAD_ITS ---
STUDY: X-RAY CHEST REASON FOR EXAM: Female, 64 years old. Tension pneumo TECHNIQUE: Single AP portable view of the chest. COMPARISON: Comparison is made with prior study dated 10/30/2019. FINDINGS: A left-sided chest tube is once again seen with the tip in the left apex. Stable subcutaneous emphysema overlying the left chest wall. No significant pneumothorax is seen. Stable changes in the lungs. Hyperinflation. Normal size heart. Normal mediastinum and tripp. Normal visualized pulmonary arteries. Normal visualized aortic arch and descending thoracic aorta. Normal visualized thoracic spine. Normal visualized ribs, clavicles, and shoulders. There is no demonstrated abnormality of the visualized soft tissue structures of the upper abdomen. RAD/Chest PA and Lateral IMPRESSION: Stable examination. Electronically Signed: Roni Sanchez, at 10:38 EDT , Service support ,
[2019-10-31] MEDS: levoFLOXacin 750 MG Tablet PO (06:07)
[2019-10-31 06:57] LABS: Anion Gap 7 (5-15); BUN 6 mg/dL (7-18); Calcium,Total 7.6 mg/dL (8.5-10.1); Chloride 93 mmol/L (98-107); EST Glomerular Filtration Rate 236 mL/min (>60); Est Glom Filt Rate - Afr Amer 286 mL/min (>60); Estimated Creatinine Clearance 46.21 ml/min; Glucose 100 mg/dL (74-106); Potassium 3.2 mmol/L (3.5-5.1); Sodium Level 129 mmol/L (136-145)
[2019-10-31] MEDS: Ipratropium/Albuterol Sulfate 3 ML AMPUL.NEB INHALATION ×2 (06:57→11:17)
[2019-10-31] MEDS: Famotidine 20 MG Tablet PO (09:10)
[2019-10-31] MEDS: amLODIPine 2.5 MG Tablet PO (09:10)
[2019-10-31] MEDS: Multivitamins,Ther W-Minerals Tablet 1 TABLET PO (09:10)
[2019-10-31] MEDS: Losartan Potassium 50 MG Tablet PO ×2 (09:10→21:05)
[2019-10-31] MEDS: predniSONE 20 MG Tablet 40 MG PO (09:11)
[2019-10-31] MEDS: Enoxaparin 40 MG/0.4 ML Syringe SC (09:11)
[2019-10-31] MEDS: 0.9% Saline Lock 10 ML Syringe IV (09:12)
--- NOTE | 2019-10-31 10:58 | PCM.PN.PUL ---
Patient Problems: Active and Suspected Problems (Last Reviewed 11/20/18 @ 06:36 by Maegan Jorge) Tension pneumothorax (Acute) Elevated troponin I level (Acute) Dyspnea (Acute) Acute respiratory failure with hypoxia (Acute) Subjective: Patient did okay overnight. Patient continues to require supplemental oxygen, but saturations have been high. Patient was clamped overnight and is not reporting any chest pain. Objective: Evaluation of chest tube this morning showed positive bubbles with deep inhalation indicating an air leak. Serous fluid was drained from the chest tube and reclamped. No bubbling noted with deep inhalation. - Physical Exam Vitals/I&O's: Vital Signs Temp Pulse Resp BP Pulse Ox 37.0 C 60 18 128/89 H 94 10/31/19 09:01 10/31/19 09:01 10/31/19 09:01 10/31/19 09:01 10/31/19 09:01 Oxygen Flow Rate (L/min) [6] 15 Oxygen Flow Rate (L/min) [4] 15 Oxygen Flow Rate (L/min) [3] 15 Oxygen Flow Rate (L/min) [2] 15 Oxygen Flow Rate (L/min) [1 ( 15 Initial Baseline)] Oxygen Flow Rate (L/min) 3 Oxygen Delivery Method [6] Non-Rebreather Oxygen Delivery Method [5] Non-Rebreather Oxygen Delivery Method [4] Non-Rebreather Oxygen Delivery Method [3] Non-Rebreather Oxygen Delivery Method [2] Non-Rebreather Oxygen Delivery Method [1 ( Non-Rebreather Initial Baseline)] Oxygen Delivery Method Nasal Cannula Weight: 52.9 kg Body Mass Index (BMI) 18.9 Intake and Output for Last 24 Hours 10/29/19 10/30/19 10/31/19 23:59 23:59 23:59 Intake Total 3246.67 / 3246.67 3348.33 / 3348.33 1080 / 1080 Output Total 2750 / 2750 635 / 635 660 / 660 Balance 496.67 / 496.67 2713.33 / 2713.33 420 / 420 General: Alert, Cooperative, No apparent distress, - - Appears older than stated age. No conversational dyspnea HEENT: Atraumatic, PERRLA, EOMI, Normocephalic, - - No scleral icterus or injection noted Oral: Moist Mucosa, No Gingival or Mucosal Lesions/ Ulcerations Neck: Supple, No JVD, No Nodes, Trachea Midline Lungs: No rhonchi, No wheeze, No rales, Diminished, - - Left chest tube is clean, dry and intact Cardiovascular: Regular rate, Regular Rhythm, Normal S1, Normal S2, No murmurs, No rub noted, No Gallop Abdomen: Bowel Sounds Present, Soft, Non Tender, Non-Distended Extremities: No clubbing, No cyanosis, No edema Skin: - - No change compared to previous Musculoskeletal: No Tenderness to Palpation of Joints or Extremities Lymphatic: No Cervical, Supraclavicular, or Inguinal Adenopathy Neurological: Cranial nerves II-XII grossly intact, Neuro grossly intact, Motor Exam 5/5 strength throughout Psych/Mental Status: Appropriate, Flat Affect Microbiology Past 72 Hours 10/24/19 07:24 Blood Culture (Wb) - Venous Blood Culture - Final No growth in 5 days. Laboratory Results 10/31/19 05:53: Sodium 129 L, Potassium 3.2 L, Chloride 93 L, Carbon Dioxide 29.0, Anion Gap 7, BUN 6 L, Creatinine 0.30 L, Estim Creat Clear Calc 46.21, Est GFR (MDRD) Af Amer 286, Est GFR (MDRD) Non-Af 236, BUN/Creatinine Ratio 20.0, Glucose 100, Calcium 7.6 L Current Medications Acetaminophen (Tylenol) 650 mg PO Q6H PRN PRN PRN Reason: Pain Score 1-10/Temp > 100.7 F Last Admin: 10/30/19 20:24 Dose: 650 mg Documented by: Albuterol Sulfate (Ventolin Aerosols) 2.5 mg INHALATION Q6H PRN PRN PRN Reason: sob/wheezing Last Admin: 10/30/19 01:30 Dose: 2.5 mg Documented by: Albuterol/Ipratropium (Duoneb) 3 ml INHALATION Q4HWA.RT [facility] Last Admin: 10/31/19 06:57 Dose: 3 ml Documented by: Amlodipine Besylate (Norvasc) 2.5 mg PO DAILY [facility] Last Admin: 10/31/19 09:10 Dose: 2.5 mg Documented by: Enoxaparin Sodium (Lovenox) 40 mg SC DAILY [facility] Last Admin: 10/31/19 09:11 Dose: 40 mg Documented by: Famotidine (Pepcid) 20 mg PO DAILY [facility] Last Admin: 10/31/19 09:10 Dose: 20 mg Documented by: Hydralazine HCl (Apresoline Iv) 10 mg IV Q6H PRN PRN PRN Reason: BLOOD PRESSURE Sodium Chloride () 1,000 mls @ 100 mls/hr IV .Q10H [facility] Last Admin: 10/31/19 02:45 Dose: 100 mls/hr Documented by: Sodium Chloride () 250 mls @ 15 mls/hr IV .[id number] PRN PRN Reason: Saline Flush Sodium Chloride () 250 mls @ 15 mls/hr IV .[id number] PRN PRN Reason: Additional IVPB Infusion Levofloxacin (Levaquin Tablet) 750 mg PO DAILY@0600 [facility] Last Admin: 10/31/19 06:07 Dose: 750 mg Documented by: Lorazepam (Ativan) 2 mg PO Q2H PRN PRN; Protocol PRN Reason: CIWA score > 8 but <15 Last Admin: 10/28/19 16:47 Dose: 2 mg Documented by: Lorazepam (Ativan) 2 mg PO UD PRN; Protocol PRN Reason: CIWA score >/=15. Lorazepam (Ativan) 2 mg IV Q2H PRN PRN; Protocol PRN Reason: CIWA score > 8 but <15 Last Admin: 10/26/19 19:24 Dose: 2 mg Documented by: Lorazepam (Ativan) 2 mg IV UD PRN; Protocol PRN Reason: CIWA score >/=15. Losartan Potassium (Cozaar) 50 mg PO BID [facility] Last Admin: 10/31/19 09:10 Dose: 50 mg Documented by: Multivitamins/Minerals (Multivitamin With Minerals (Bkc)) 1 tablet PO DAILYCM [facility] Last Admin: 10/31/19 09:10 Dose: 1 tablet Documented by: Nutritional Formula (Lactose Free) (Ensure Enlive) 120 ml PO 4X/DAY [facility] Last Admin: 10/31/19 09:17 Dose: 120 ml Documented by: Ondansetron HCl (Zofran) 4 mg IV Q8H PRN PRN PRN Reason: NAUSEA/VOMITING Oxycodone HCl (Oxyir) 5 mg PO Q6H PRN PRN PRN Reason: Pain Score 4-10/10 Last Admin: 10/31/19 04:32 Dose: 5 mg Documented by: Phenobarbital (Phenobarbital) 32.4 mg PO Q6H [facility]; Taper Stop: 10/31/19 15:29 Last Admin: 10/31/19 09:11 Dose: 32.4 mg Documented by: Potassium Chloride (K-Dur) 60 meq PO X1 [facility] Stop: 10/31/19 17:01 Prednisone () 40 mg PO DAILY@0800 [facility] Last Admin: 10/31/19 09:11 Dose: 40 mg Documented by: Sodium Chloride () 10 - 40 ml IV UD PRN PRN Reason: SALINE FLUSH Last Admin: 10/31/19 09:12 Dose: 10 ml Documented by: Clinical Impression(s) from Imaging Studies Chest X-Ray 10/30/19 17:00 IMPRESSION: Left chest tube unchanged with no substantial residual pneumothorax. Stable subcutaneous emphysema. Stable chronic changes of the right lung. Electronically Signed: Sujata Mulligan MD at 17:59 EDT , Service support , Chest X-Ray 10/31/19 05:30 IMPRESSION: Stable examination. Electronically Signed: Roni Sanchez at 10:38 EDT , Service support , Medical Necessity - Tobacco Use Smoking Status: Current every day smoker Tobacco Use: Cigarettes Assessment/Plan All Active Problems (Last Reviewed 11/20/18 @ 06:36 by Maegan Jorge) Tension pneumothorax (Acute) Elevated troponin I level (Acute) Dyspnea (Acute) Acute respiratory failure with hypoxia (Acute) Back pain (Acute) RECOMMENDATIONS: 1. Transfer for CT surgery evaluation given persistent leak from chest tube 2. Continue chest tube until leak subsided. Use high flow nasal cannula if necessary 3. Continue empiric antimicrobials, scheduled bronchodilators and wean prednisone over 12 to 14 days 4. Continue supplemental oxygen and wean to maintain saturations at or above 90%. 5. Continue phenobarbital taper. Continue thiamine and folate. IMPRESSIONS: 1. Acute hypoxemic respiratory failure due to pneumothorax Unclear if the patient's presenting pneumothorax represents a primary spontaneous etiology versus traumatic from questionable fall. She does have underlying bilateral emphysematous changes and bullous disease, primarily in the upper lobes. Her presentation may be the consequence of ruptured bullae. Patient does have left-sided crepitus and leak increases after coughing episodes. Regardless, she has undergone tube thoracotomy. The patient has persisted in an air leak despite multiple days of waterseal, clamping and suctioning. Patient does have advanced emphysematous changes, so concern for a bronchopleural fistula. Recommend CT surgery evaluation. 2. Presumptive COPD with extensive tobacco abuse history/right upper lobe pulmonary nodule The patient has an extensive smoking history and continues to smoke daily. Although she was previously referred to the pulmonary clinic in 2019, the patient failed to present for her office visit. Upon discharge, the patient would likely benefit from outpatient pulmonary follow-up so that baseline pulmonary function studies can be obtained. In addition, the patient has a known right upper lobe lung nodule, which will need to be followed longitudinally. 3. H. influenzae pneumonia The patient presented with radiographic evidence of a left lower lobe infiltrate. She will be continued on therapy for a presumptive COPD exacerbation with scheduled bronchodilators, antimicrobials and IV steroids. Patient does have right lower lobe atelectasis and a pleural effusion, but this is likely secondary to splinting associated with the chest tube more than progression of pneumonia. No fevers been noted overnight. 4. History of alcohol dependency/CODE STATUS The patient reports a longstanding history of daily alcohol use, typically 6+ beers per day. She will need to be monitored closely for any alcohol withdrawal symptoms. Continue thiamine and folate accordingly. Replete electrolytes as necessary CODE STATUS was previously discussed and confirmed to be full code. Inpatient E&M: 58338 Subs Hosp L2
--- NOTE | 2019-10-31 11:36 | CASEMGMT ---
According to the [facility] website, the following are in-network tertiary facilities: [facility], [facility], [facility], [facility], [facility], [facility], [facility], and . Yovana GARCIA CM
--- NOTE | 2019-10-31 11:39 | CASEMGMT ---
Social Work SW met with pt to review d/c plan. Pt is alert and oriented x3 at this time. SW discussed home situation and pt states her significant other Dylan works during the day but is home in the evenings. Pt also lives with a grandson who is present all the time and pt states he is able to provide assist as needed and that granddona works once a week and can assist pt otherwise. SW reviewed therapy notes with pt and pt adamantly against short term SNF placement and states she can return home. Discussed home health services and pt is agreeable to this and would like to use [facility]. Pt states she does have a wheeled walker at home that she can use on discharge. Plan: [facility] at time of discharge. SABRINA Fierro
--- NOTE | 2019-10-31 15:25 | PN_ITS ---
Patient Problems: Active and Suspected Problems (Last Reviewed 11/20/18 @ 06:36 by Maegan Jorge) Tension pneumothorax (Acute) Elevated troponin I level (Acute) Dyspnea (Acute) Acute respiratory failure with hypoxia (Acute) Subjective: Doing okay today, breathing well. No issues overnight Vitals/I&O's: Vital Signs Temp Pulse Resp BP Pulse Ox 97.9 F 97 20 H 128/82 H 96 10/31/19 14:57 10/31/19 15:04 10/31/19 14:57 10/31/19 14:57 10/31/19 14:57 Oxygen Flow Rate (L/min) [6] 15 Oxygen Flow Rate (L/min) [4] 15 Oxygen Flow Rate (L/min) [3] 15 Oxygen Flow Rate (L/min) [2] 15 Oxygen Flow Rate (L/min) [1 ( 15 Initial Baseline)] Oxygen Flow Rate (L/min) 3 Oxygen Delivery Method [6] Non-Rebreather Oxygen Delivery Method [5] Non-Rebreather Oxygen Delivery Method [4] Non-Rebreather Oxygen Delivery Method [3] Non-Rebreather Oxygen Delivery Method [2] Non-Rebreather Oxygen Delivery Method [1 ( Non-Rebreather Initial Baseline)] Oxygen Delivery Method Nasal Cannula Weight: 116 lb 9.992 oz Body Mass Index (BMI) 18.9 Intake and Output for Last 24 Hours 10/29/19 10/30/19 10/31/19 23:59 23:59 23:59 Intake Total 3246.67 / 3246.67 3348.33 / 3348.33 2531.67 / 2531.67 Output Total 2750 / 2750 635 / 635 1440 / 1440 Balance 496.67 / 496.67 2713.33 / 2713.33 1091.67 / 1091.67 General: Alert, Oriented x3, Cooperative, No apparent distress HEENT: Atraumatic, PERRLA, EOMI, Normocephalic Oral: Moist Mucosa Neck: Supple, No JVD Lungs: No rhonchi, mild wheezing bilaterally, diminished Cardiovascular: Regular rate, Regular Rhythm, Normal S1, Normal S2, No murmurs Abdomen: Soft, Non Tender, Non-Distended, No Hepato-splenomegaly Extremities: No edema, Capillary Refill Less than 3 Seconds Skin: No rashes, No breakdown Neurological: Neuro grossly intact, Sensory exam intact to light touch and pain Psych/Mental Status: Normal Affect, Appropriate Microbiology Past 72 Hours 10/24/19 07:24 Blood Culture (Wb) - Venous Blood Culture - Final No growth in 5 days. Laboratory Results 10/31/19 05:53: Sodium 129 L, Potassium 3.2 L, Chloride 93 L, Carbon Dioxide 29.0, Anion Gap 7, BUN 6 L, Creatinine 0.30 L, Estim Creat Clear Calc 46.21, Est GFR (MDRD) Af Amer 286, Est GFR (MDRD) Non-Af 236, BUN/Creatinine Ratio 20.0, Glucose 100, Calcium 7.6 L Current Medications Acetaminophen (Tylenol) 650 mg PO Q6H PRN PRN PRN Reason: Pain Score 1-10/Temp > 100.7 F Last Admin: 10/30/19 20:24 Dose: 650 mg Documented by: Albuterol Sulfate (Ventolin Aerosols) 2.5 mg INHALATION Q6H PRN PRN PRN Reason: sob/wheezing Last Admin: 10/30/19 01:30 Dose: 2.5 mg Documented by: Albuterol/Ipratropium (Duoneb) 3 ml INHALATION Q4HWA.RT [facility] Last Admin: 10/31/19 11:17 Dose: 3 ml Documented by: Amlodipine Besylate (Norvasc) 2.5 mg PO DAILY [facility] [place] Last Admin: 10/31/19 09:10 Dose: 2.5 mg Documented by: Enoxaparin Sodium (Lovenox) 40 mg SC DAILY [facility] [place] Last Admin: 10/31/19 09:11 Dose: 40 mg Documented by: Famotidine (Pepcid) 20 mg PO DAILY [facility] [place] Last Admin: 10/31/19 09:10 Dose: 20 mg Documented by: Hydralazine HCl (Apresoline Iv) 10 mg IV Q6H PRN PRN PRN Reason: BLOOD PRESSURE Sodium Chloride () 1,000 mls @ 100 mls/hr IV .Q10H [facility] [place] Last Admin: 10/31/19 12:28 Dose: 100 mls/hr Documented by: Sodium Chloride () 250 mls @ 15 mls/hr IV .[id number] PRN PRN Reason: Saline Flush Sodium Chloride () 250 mls @ 15 mls/hr IV .[id number] PRN PRN Reason: Additional IVPB Infusion Levofloxacin (Levaquin Tablet) 750 mg PO DAILY@0600 [facility] [place] Last Admin: 10/31/19 06:07 Dose: 750 mg Documented by: Lorazepam (Ativan) 2 mg PO Q2H PRN PRN; Protocol PRN Reason: CIWA score > 8 but <15 Last Admin: 10/28/19 16:47 Dose: 2 mg Documented by: Lorazepam (Ativan) 2 mg PO UD PRN; Protocol PRN Reason: CIWA score >/=15. Lorazepam (Ativan) 2 mg IV Q2H PRN PRN; Protocol PRN Reason: CIWA score > 8 but <15 Last Admin: 10/26/19 19:24 Dose: 2 mg Documented by: Lorazepam (Ativan) 2 mg IV UD PRN; Protocol PRN Reason: CIWA score >/=15. Losartan Potassium (Cozaar) 50 mg PO BID [facility] [place] Last Admin: 10/31/19 09:10 Dose: 50 mg Documented by: Multivitamins/Minerals (Multivitamin With Minerals (Bkc)) 1 tablet PO DAILYCM [facility] [place] Last Admin: 10/31/19 09:10 Dose: 1 tablet Documented by: Nutritional Formula (Lactose Free) (Ensure Enlive) 120 ml PO 4X/DAY [facility] [place] Last Admin: 10/31/19 15:11 Dose: Not Given Documented by: Ondansetron HCl (Zofran) 4 mg IV Q8H PRN PRN PRN Reason: NAUSEA/VOMITING Oxycodone HCl (Oxyir) 5 mg PO Q6H PRN PRN PRN Reason: Pain Score 4-10/10 Last Admin: 10/31/19 11:50 Dose: 5 mg Documented by: Phenobarbital (Phenobarbital) 32.4 mg PO Q6H [facility] [place]; Taper Stop: 10/31/19 15:29 Last Admin: 10/31/19 09:11 Dose: 32.4 mg Documented by: Potassium Chloride (K-Dur) 60 meq PO X1 [facility] [place] Stop: 10/31/19 17:01 Prednisone () 40 mg PO DAILY@0800 [facility] [place] Last Admin: 10/31/19 09:11 Dose: 40 mg Documented by: Sodium Chloride () 10 - 40 ml IV UD PRN PRN Reason: SALINE FLUSH Last Admin: 10/31/19 09:12 Dose: 10 ml Documented by: STROKE Vital Signs/Narrative: Vital Signs Temp Pulse Resp BP Pulse Ox 10/31/19 15:04 97 10/31/19 14:57 97.9 F 77 20 H 128/82 H 96 10/31/19 11:31 83 18 Medical Necessity - Tobacco Use Smoking Status: Current every day smoker Tobacco Use: Cigarettes Assessment/Plan All Active Problems (Last Reviewed 11/20/18 @ 06:36 by Maegan Jorge) Tension pneumothorax (Acute) Elevated troponin I level (Acute) Dyspnea (Acute) Acute respiratory failure with hypoxia (Acute) Back pain (Acute) 1. Acute hypoxic respiratory failure secondary to tension pneumothorax on the left and a left lower lobe community acquired pneumonia/severe bilateral emphysema with a COPD exacerbation/tobacco abuse/right upper lobe nodule -She completed 7 days of Levaquin today, can discontinue -Chest tube placed, will continue on waterseal until Sunday. I discussed the case with cardiothoracic surgery at [facility] who did not feel she warranted transfer to their facility today as she would not be operated on until Sunday. If she continues to have an air leak on Sunday morning then can transfer the at that time. -A year ago in August she had a right upper lobe mass of around 7 mm she will need to follow-up with outpatient pulmonology for follow-up -Discussed tobacco cessation -Appreciate pulmonology's assistance -Continue with her home medications once her medication list is updated -Continue with duo nebs as well as p.o. steroids 2. Elevated troponin/HTN -Initial troponin was 0.388, EKG was unremarkable and she is not complaining of any chest pain -Repeat troponins went to 1.25, this is likely related to the severe hypoxia troponin did trend down to 1.190, and an echo had an EF of 55% with normal diastolic function without a wall motion abnormality therefore this elevated troponin is truly related to her hypoxia and her tension pneumothorax 3. Alcohol abuse -She drinks about 7-10 beers a day, and she will not go to rehab -Continue with alcohol withdrawal protocol with phenobarb taper DVT: Lovenox Inpatient E&M: 72240 Subs Hosp L2
[2019-11-01] VITALS (14 sets, daily range): BP systolic 112–155; BP diastolic 67–98; PULSE 80–104; RESP 16–20; TEMP 36.4–36.8; O2SAT 94–98
[2019-11-01] MEDS: oxyCODONE 5 MG Tablet PO ×4 (00:15→22:57)
[2019-11-01] MEDS: Acetaminophen 325 MG Tablet 650 MG PO ×4 (00:16→22:57)
[2019-11-01 07:08] LABS: Anion Gap 5 (5-15); BUN 8 mg/dL (7-18); BUN/Creat Ratio 20.8 RATIO (10-20); Calcium,Total 7.7 mg/dL (8.5-10.1); Chloride 96 mmol/L (98-107); Creatinine, Serum 0.38 mg/dL (0.55-1.02); EST Glomerular Filtration Rate 178 mL/min (>60); Est Glom Filt Rate - Afr Amer 215 mL/min (>60); Glucose 82 mg/dL (74-106); Potassium 4.2 mmol/L (3.5-5.1); Sodium Level 130 mmol/L (136-145)
--- NOTE | 2019-11-01 08:22 | PCM.PN.PUL ---
Patient Problems: Active and Suspected Problems (Last Reviewed 11/20/18 @ 06:36 by Maegan Jorge) Tension pneumothorax (Acute) Elevated troponin I level (Acute) Dyspnea (Acute) Acute respiratory failure with hypoxia (Acute) Subjective: Patient did well overnight. Patient was appropriately interactive today and asking to go home. Patient denies any chest pain. Patient still requiring minimal nasal cannula oxygen. Objective: Chest tube was unclamped and showed no air leak - Physical Exam Vitals/I&O's: Vital Signs Temp Pulse Resp BP Pulse Ox 36.8 C 80 18 155/98 H 95 11/01/19 05:50 11/01/19 06:52 11/01/19 05:50 11/01/19 05:50 11/01/19 06:55 Oxygen Flow Rate (L/min) [6] 15 Oxygen Flow Rate (L/min) [4] 15 Oxygen Flow Rate (L/min) [3] 15 Oxygen Flow Rate (L/min) [2] 15 Oxygen Flow Rate (L/min) [1 ( 15 Initial Baseline)] Oxygen Flow Rate (L/min) 3 Oxygen Delivery Method [6] Non-Rebreather Oxygen Delivery Method [5] Non-Rebreather Oxygen Delivery Method [4] Non-Rebreather Oxygen Delivery Method [3] Non-Rebreather Oxygen Delivery Method [2] Non-Rebreather Oxygen Delivery Method [1 ( Non-Rebreather Initial Baseline)] Oxygen Delivery Method Nasal Cannula Weight: 53.8 kg Body Mass Index (BMI) 18.9 Intake and Output for Last 24 Hours 10/30/19 10/31/19 11/01/19 23:59 23:59 23:59 Intake Total 3348.33 / 3348.33 4361.67 / 4361.67 240 / 240 Output Total 635 / 635 2080 / 2080 700 / 700 Balance 2713.33 / 2713.33 2281.67 / 2281.67 -460 / -460 General: Alert, Oriented x3, Cooperative, No apparent distress, - - Appears older than stated age. Speaking in full sentences. HEENT: Atraumatic, PERRLA, EOMI, Normocephalic, - - No scleral icterus or injection noted Oral: Moist Mucosa, No Gingival or Mucosal Lesions/ Ulcerations Neck: Supple, No JVD, No Nodes, Trachea Midline Lungs: No rhonchi, No wheeze, Diminished, Rales - Left base Cardiovascular: Regular rate, Regular Rhythm, Normal S1, Normal S2, No murmurs, No rub noted, No Gallop Abdomen: Bowel Sounds Present, Soft, Non Tender, Non-Distended Extremities: No cyanosis, No edema, Capillary Refill Less than 3 Seconds Skin: No rashes, No breakdown Musculoskeletal: No Tenderness to Palpation of Joints or Extremities Lymphatic: No Cervical, Supraclavicular, or Inguinal Adenopathy Neurological: Cranial nerves II-XII grossly intact, Neuro grossly intact, Motor Exam 5/5 strength throughout Psych/Mental Status: Alert and oriented to time, place, person, mood and affect Microbiology Past 72 Hours 10/24/19 07:24 Blood Culture (Wb) - Venous Blood Culture - Final No growth in 5 days. Laboratory Results 11/01/19 05:50: Sodium 130 L, Potassium 4.2, Chloride 96 L, Carbon Dioxide 29.0, Anion Gap 5, BUN 8, Creatinine 0.38 L, Estim Creat Clear Calc 47.00, Est GFR (MDRD) Af Amer 215, Est GFR (MDRD) Non-Af 178, BUN/Creatinine Ratio 20.8 H, Glucose 82, Calcium 7.7 L Current Medications Acetaminophen (Tylenol) 650 mg PO Q6H PRN PRN PRN Reason: Pain Score 1-10/Temp > 100.7 F Last Admin: 11/01/19 06:29 Dose: 650 mg Documented by: Albuterol Sulfate (Ventolin Aerosols) 2.5 mg INHALATION Q6H PRN PRN PRN Reason: sob/wheezing Last Admin: 10/30/19 01:30 Dose: 2.5 mg Documented by: Albuterol/Ipratropium (Duoneb) 3 ml INHALATION Q4HWA.RT [facility] Last Admin: 11/01/19 06:55 Dose: Not Given Documented by: Amlodipine Besylate (Norvasc) 2.5 mg PO DAILY [facility] Last Admin: 10/31/19 09:10 Dose: 2.5 mg Documented by: Enoxaparin Sodium (Lovenox) 40 mg SC DAILY [facility] Last Admin: 10/31/19 09:11 Dose: 40 mg Documented by: Famotidine (Pepcid) 20 mg PO DAILY [facility] Last Admin: 10/31/19 09:10 Dose: 20 mg Documented by: Hydralazine HCl (Apresoline Iv) 10 mg IV Q6H PRN PRN PRN Reason: BLOOD PRESSURE Sodium Chloride () 1,000 mls @ 100 mls/hr IV .Q10H [facility] Last Admin: 11/01/19 02:44 Dose: Not Given Documented by: Sodium Chloride () 250 mls @ 15 mls/hr IV .[id number] PRN PRN Reason: Saline Flush Sodium Chloride () 250 mls @ 15 mls/hr IV .[id number] PRN PRN Reason: Additional IVPB Infusion Lorazepam (Ativan) 2 mg PO Q2H PRN PRN; Protocol PRN Reason: CIWA score > 8 but <15 Last Admin: 10/28/19 16:47 Dose: 2 mg Documented by: Lorazepam (Ativan) 2 mg PO UD PRN; Protocol PRN Reason: CIWA score >/=15. Lorazepam (Ativan) 2 mg IV Q2H PRN PRN; Protocol PRN Reason: CIWA score > 8 but <15 Last Admin: 10/26/19 19:24 Dose: 2 mg Documented by: Lorazepam (Ativan) 2 mg IV UD PRN; Protocol PRN Reason: CIWA score >/=15. Losartan Potassium (Cozaar) 50 mg PO BID [facility] Last Admin: 10/31/19 21:05 Dose: 50 mg Documented by: Multivitamins/Minerals (Multivitamin With Minerals (Bkc)) 1 tablet PO DAILYCM [facility] Last Admin: 10/31/19 09:10 Dose: 1 tablet Documented by: Nutritional Formula (Lactose Free) (Ensure Enlive) 120 ml PO 4X/DAY [facility] Last Admin: 10/31/19 21:05 Dose: Not Given Documented by: Ondansetron HCl (Zofran) 4 mg IV Q8H PRN PRN PRN Reason: NAUSEA/VOMITING Oxycodone HCl (Oxyir) 5 mg PO Q6H PRN PRN PRN Reason: Pain Score 4-10/10 Last Admin: 11/01/19 06:29 Dose: 5 mg Documented by: Prednisone () 40 mg PO DAILY@0800 [facility] Last Admin: 10/31/19 09:11 Dose: 40 mg Documented by: Sodium Chloride () 10 - 40 ml IV UD PRN PRN Reason: SALINE FLUSH Last Admin: 10/31/19 09:12 Dose: 10 ml Documented by: Clinical Impression(s) from Imaging Studies Chest X-Ray 10/31/19 05:30 IMPRESSION: Stable examination. Electronically Signed: Roni Sanchez, at 10:38 EDT , Service support , Medical Necessity - Tobacco Use Smoking Status: Current every day smoker Tobacco Use: Cigarettes Assessment/Plan All Active Problems (Last Reviewed 11/20/18 @ 06:36 by Maegan Jorge) Tension pneumothorax (Acute) Elevated troponin I level (Acute) Dyspnea (Acute) Acute respiratory failure with hypoxia (Acute) Back pain (Acute) RECOMMENDATIONS: 1. Continue to keep chest tube clamped and reevaluate for air leak tomorrow 2. Continue chest tube until leak subsided. Use high flow nasal cannula if necessary 3. Continue empiric antimicrobials, scheduled bronchodilators and wean prednisone over 9-12 days. Decrease steroids for tomorrow 4. Continue supplemental oxygen and wean to maintain saturations at or above 90%. 5. Continue phenobarbital taper. Continue thiamine and folate. IMPRESSIONS: 1. Acute hypoxemic respiratory failure due to pneumothorax Unclear if the patient's presenting pneumothorax represents a primary spontaneous etiology versus traumatic from questionable fall. She does have underlying bilateral emphysematous changes and bullous disease, primarily in the upper lobes. Her presentation may be the consequence of ruptured bullae. Patient does have left-sided crepitus and leak increases after coughing episodes. Regardless, she has undergone tube thoracotomy. The patient has persisted in an air leak despite multiple days of waterseal, clamping and suctioning. Patient does have advanced emphysematous changes, so concern for a bronchopleural fistula. Patient with no air leak today. Would continue to monitor with chest tube in place given persistence, but if this continues, discontinuation can be attempted. If persists, anticipate transfer to a tertiary center for CT surgery evaluation. 2. Presumptive COPD with extensive tobacco abuse history/right upper lobe pulmonary nodule The patient has an extensive smoking history and continues to smoke daily. Although she was previously referred to the pulmonary clinic in 2019, the patient failed to present for her office visit. Upon discharge, the patient would likely benefit from outpatient pulmonary follow-up so that baseline pulmonary function studies can be obtained. In addition, the patient has a known right upper lobe lung nodule, which will need to be followed longitudinally. 3. H. influenzae pneumonia The patient presented with radiographic evidence of a left lower lobe infiltrate. She will be continued on therapy for a presumptive COPD exacerbation with scheduled bronchodilators, antimicrobials and IV steroids. Patient does have right lower lobe atelectasis and a pleural effusion, but this is likely secondary to splinting associated with the chest tube more than progression of pneumonia. No fevers been noted overnight. 4. History of alcohol dependency/CODE STATUS The patient reports a longstanding history of daily alcohol use, typically 6+ beers per day. She will need to be monitored closely for any alcohol withdrawal symptoms. Continue thiamine and folate accordingly. Replete electrolytes as necessary CODE STATUS was previously discussed and confirmed to be full code. Inpatient E&M: 09522 Subs Hosp L2
[2019-11-01] MEDS: amLODIPine 2.5 MG Tablet PO (09:18)
[2019-11-01] MEDS: Multivitamins,Ther W-Minerals Tablet 1 TABLET PO (09:18)
[2019-11-01] MEDS: predniSONE 20 MG Tablet 30 MG PO (09:18)
[2019-11-01] MEDS: Losartan Potassium 50 MG Tablet PO ×2 (09:18→22:17)
[2019-11-01] MEDS: Famotidine 20 MG Tablet PO (09:18)
[2019-11-01] MEDS: Enoxaparin 40 MG/0.4 ML Syringe SC (09:18)
[2019-11-01] MEDS: 0.9% Normal Saline 1,000 ML 100 ML IV ×2 (09:19→18:26)
[2019-11-01] MEDS: Ipratropium/Albuterol Sulfate 3 ML AMPUL.NEB INHALATION ×3 (10:19→19:32)
--- NOTE | 2019-11-01 10:43 | PN_ITS ---
Patient Problems: Active and Suspected Problems (Last Reviewed 11/20/18 @ 06:36 by Maegan Jorge) Tension pneumothorax (Acute) Elevated troponin I level (Acute) Dyspnea (Acute) Acute respiratory failure with hypoxia (Acute) Subjective: Doing well, no issues overnight, wants to go home. Vitals/I&O's: Vital Signs Temp Pulse Resp BP Pulse Ox 97.6 F L 83 16 128/94 H 94 11/01/19 09:15 11/01/19 10:19 11/01/19 10:19 11/01/19 09:15 11/01/19 09:15 Oxygen Flow Rate (L/min) [6] 15 Oxygen Flow Rate (L/min) [4] 15 Oxygen Flow Rate (L/min) [3] 15 Oxygen Flow Rate (L/min) [2] 15 Oxygen Flow Rate (L/min) [1 ( 15 Initial Baseline)] Oxygen Flow Rate (L/min) 3 Oxygen Delivery Method [6] Non-Rebreather Oxygen Delivery Method [5] Non-Rebreather Oxygen Delivery Method [4] Non-Rebreather Oxygen Delivery Method [3] Non-Rebreather Oxygen Delivery Method [2] Non-Rebreather Oxygen Delivery Method [1 ( Non-Rebreather Initial Baseline)] Oxygen Delivery Method Nasal Cannula Weight: 118 lb 9.739 oz Body Mass Index (BMI) 18.9 Intake and Output for Last 24 Hours 10/30/19 10/31/19 11/01/19 23:59 23:59 23:59 Intake Total 3348.33 / 3348.33 4361.67 / 4361.67 1240 / 1240 Output Total 635 / 635 2080 / 2080 700 / 700 Balance 2713.33 / 2713.33 2281.67 / 2281.67 540 / 540 General: Alert, Oriented x3, Cooperative, No apparent distress HEENT: Atraumatic, PERRLA, EOMI, Normocephalic Oral: Moist Mucosa Neck: Supple, No JVD Lungs: No rhonchi, mild wheezing bilaterally, diminished Cardiovascular: Regular rate, Regular Rhythm, Normal S1, Normal S2, No murmurs Abdomen: Soft, Non Tender, Non-Distended, No Hepato-splenomegaly Extremities: No edema, Capillary Refill Less than 3 Seconds Skin: No rashes, No breakdown Neurological: Neuro grossly intact, Sensory exam intact to light touch and pain Psych/Mental Status: Normal Affect, Appropriate Microbiology Past 72 Hours 10/24/19 07:24 Blood Culture (Wb) - Venous Blood Culture - Final No growth in 5 days. Laboratory Results 11/01/19 05:50: Sodium 130 L, Potassium 4.2, Chloride 96 L, Carbon Dioxide 29.0, Anion Gap 5, BUN 8, Creatinine 0.38 L, Estim Creat Clear Calc 47.00, Est GFR (MDRD) Af Amer 215, Est GFR (MDRD) Non-Af 178, BUN/Creatinine Ratio 20.8 H, Gl ucose 82, Calcium 7.7 L Current Medications Acetaminophen (Tylenol) 650 mg PO Q6H PRN PRN PRN Reason: Pain Score 1-10/Temp > 100.7 F Last Admin: 11/01/19 06:29 Dose: 650 mg Documented by: Albuterol Sulfate (Ventolin Aerosols) 2.5 mg INHALATION Q6H PRN PRN PRN Reason: sob/wheezing Last Admin: 10/30/19 01:30 Dose: 2.5 mg Documented by: Albuterol/Ipratropium (Duoneb) 3 ml INHALATION Q4HWA.RT [facility] Last Admin: 11/01/19 10:19 Dose: 3 ml Documented by: Amlodipine Besylate (Norvasc) 2.5 mg PO DAILY [facility] Last Admin: 11/01/19 09:18 Dose: 2.5 mg Documented by: Enoxaparin Sodium (Lovenox) 40 mg SC DAILY [facility] Last Admin: 11/01/19 09:18 Dose: 40 mg Documented by: Famotidine (Pepcid) 20 mg PO DAILY [facility] Last Admin: 11/01/19 09:18 Dose: 20 mg Documented by: Hydralazine HCl (Apresoline Iv) 10 mg IV Q6H PRN PRN PRN Reason: BLOOD PRESSURE Sodium Chloride () 1,000 mls @ 100 mls/hr IV .Q10H [facility] Last Admin: 11/01/19 09:19 Dose: 100 mls/hr Documented by: Sodium Chloride () 250 mls @ 15 mls/hr IV .[id number] PRN PRN Reason: Saline Flush Sodium Chloride () 250 mls @ 15 mls/hr IV .[id number] PRN PRN Reason: Additional IVPB Infusion Lorazepam (Ativan) 2 mg PO Q2H PRN PRN; Protocol PRN Reason: CIWA score > 8 but <15 Last Admin: 10/28/19 16:47 Dose: 2 mg Documented by: Lorazepam (Ativan) 2 mg PO UD PRN; Protocol PRN Reason: CIWA score >/=15. Lorazepam (Ativan) 2 mg IV Q2H PRN PRN; Protocol PRN Reason: CIWA score > 8 but <15 Last Admin: 10/26/19 19:24 Dose: 2 mg Documented by: Lorazepam (Ativan) 2 mg IV UD PRN; Protocol PRN Reason: CIWA score >/=15. Losartan Potassium (Cozaar) 50 mg PO BID [facility] Last Admin: 11/01/19 09:18 Dose: 50 mg Documented by: Multivitamins/Minerals (Multivitamin With Minerals (Bkc)) 1 tablet PO DAILYCM [facility] Last Admin: 11/01/19 09:18 Dose: 1 tablet Documented by: Nutritional Formula (Lactose Free) (Ensure Enlive) 120 ml PO 4X/DAY [facility] Last Admin: 11/01/19 09:19 Dose: Not Given Documented by: Ondansetron HCl (Zofran) 4 mg IV Q8H PRN PRN PRN Reason: NAUSEA/VOMITING Oxycodone HCl (Oxyir) 5 mg PO Q6H PRN PRN PRN Reason: Pain Score 4-10/10 Last Admin: 11/01/19 06:29 Dose: 5 mg Documented by: Prednisone () 30 mg PO DAILY@0800 [facility] Last Admin: 11/01/19 09:18 Dose: 30 mg Documented by: Sodium Chloride () 10 - 40 ml IV UD PRN PRN Reason: SALINE FLUSH Last Admin: 10/31/19 09:12 Dose: 10 ml Documented by: STROKE Vital Signs/Narrative: Vital Signs Temp Pulse Resp BP Pulse Ox 11/01/19 10:19 83 16 11/01/19 09:15 97.6 F L 85 18 128/94 H 94 11/01/19 06:55 95 11/01/19 06:52 80 Medical Necessity - Tobacco Use Smoking Status: Current every day smoker Tobacco Use: Cigarettes Assessment/Plan All Active Problems (Last Reviewed 11/20/18 @ 06:36 by Maegan Jorge) Tension pneumothorax (Acute) Elevated troponin I level (Acute) Dyspnea (Acute) Acute respiratory failure with hypoxia (Acute) Back pain (Acute) 1. Acute hypoxic respiratory failure secondary to tension pneumothorax on the left and a left lower lobe community acquired pneumonia with Haemophilus influenza/severe bilateral emphysema with a COPD exacerbation/tobacco a buse/right upper lobe nodule -Chest tube placed, will continue on waterseal until Sunday. I discussed the case with cardiothoracic surgery at [facility] who did not feel she warranted transfer to their facility today as she would not be operated on until Sunday. If she continues to have an air leak on Sunday morning then can transfer the at that time. It does appear that the air leak has resolved, will keep her clamped for 1 more day as tube tomorrow -A year ago in August she had a right upper lobe mass of around 7 mm she will need to follow-up with outpatient pulmonology for follow-up -Discussed tobacco cessation -Appreciate pulmonology's assistance -Continue with her home medications once her medication list is updated -Continue with duo nebs as well as p.o. steroids 2. Elevated troponin/HTN -Initial troponin was 0.388, EKG was unremarkable and she is not complaining of any chest pain -Repeat troponins went to 1.25, this is likely related to the severe hypoxia troponin did trend down to 1.190, and an echo had an EF of 55% with normal diastolic function without a wall motion abnormality therefore this elevated troponin is truly related to her hypoxia and her tension pneumothorax 3. Alcohol abuse -She drinks about 7-10 beers a day, and she will not go to rehab -Continue with alcohol withdrawal protocol with phenobarb taper DVT: Lovenox Inpatient E&M: 24417 Subs Hosp L2
[2019-11-01] MEDS: Ketorolac 15 MG/ML Vial IV (20:06)
[2019-11-02] VITALS (12 sets, daily range): BP systolic 132–150; BP diastolic 70–95; PULSE 57–107; RESP 16–20; TEMP 36.4–36.8; O2SAT 94–98
--- NOTE | 2019-11-02 00:42 | NURSING ---
Pt stated her pain was a 10 during the shift at her chest tube insertion site and back. contacted physician and he put in an order for a 1 x dose of IV toradol. Pt also gets PO tylenol and po oxy. Pt shows no sign of distress while claiming a pain of 10 and intermittently falls a sleep. Vitals stable and no SOB.
[2019-11-02] MEDS: 0.9% Normal Saline 1,000 ML 100 ML IV ×2 (04:34→16:25)
[2019-11-02] MEDS: Acetaminophen 325 MG Tablet 650 MG PO ×2 (05:15→16:27)
[2019-11-02] MEDS: oxyCODONE 5 MG Tablet PO ×2 (05:15→20:18)
--- NOTE | 2019-11-02 05:33 | RAD_ITS ---
STUDY: X-RAY CHEST REASON FOR EXAM: Female, 64 years old. F/U FOR PNEUMOTHORAX TECHNIQUE: Frontal and lateral views COMPARISON: 10/31/2019. FINDINGS: Left chest tube has been pulled back with tip at the suprahilar level. The lungs are expanded. No pneumothorax. Minimal left basilar atelectasis. Normal size heart. Normal mediastinum and tripp. Normal visualized pulmonary arteries. Normal visualized aortic arch and descending thoracic aorta. Normal visualized thoracic spine. Normal visualized ribs, clavicles, and shoulders. Persistent left subcutaneous emphysema. There is no demonstrated abnormality of the visualized soft tissue structures of the upper abdomen. RAD/Chest PA and Lateral IMPRESSION: No pneumothorax. Minimal left basilar atelectasis. Electronically Signed: Edwardo Lenoard DO at 9:25 EDT Tel [phone], Service support ,
[2019-11-02] MEDS: Ipratropium/Albuterol Sulfate 3 ML AMPUL.NEB INHALATION ×3 (07:03→19:23)
[2019-11-02] MEDS: Famotidine 20 MG Tablet PO (08:26)
[2019-11-02] MEDS: Enoxaparin 40 MG/0.4 ML Syringe SC (08:26)
[2019-11-02] MEDS: predniSONE 20 MG Tablet 30 MG PO (08:27)
[2019-11-02] MEDS: Multivitamins,Ther W-Minerals Tablet 1 TABLET PO (08:27)
[2019-11-02] MEDS: Losartan Potassium 50 MG Tablet PO ×2 (08:27→20:19)
[2019-11-02] MEDS: amLODIPine 2.5 MG Tablet PO (08:27)
--- NOTE | 2019-11-02 08:38 | PN_ITS ---
Patient Problems: Active and Suspected Problems (Last Reviewed 11/20/18 @ 06:36 by Maegan Jorge) Tension pneumothorax (Acute) Elevated troponin I level (Acute) Dyspnea (Acute) Acute respiratory failure with hypoxia (Acute) Subjective: Patient did okay overnight. Patient denies any acute issues, but this morning's chest x-ray showed significant movement of the chest tube. Patient is not reporting any increased shortness of breath at this time, but it was discontinued secondary to malposition. Patient has had a dry cough and continues to require supplemental oxygen. Objective: Chest x-ray was personally reviewed and shows significant movement of the chest tube with charter pilot hole outside the chest cavity. - Physical Exam Vitals/I&O's: Vital Signs Temp Pulse Resp BP Pulse Ox 36.4 C L 100 20 H 143/79 H 97 11/02/19 04:06 11/02/19 07:05 11/02/19 07:05 11/02/19 04:06 11/02/19 04:06 Oxygen Flow Rate (L/min) [6] 15 Oxygen Flow Rate (L/min) [4] 15 Oxygen Flow Rate (L/min) [3] 15 Oxygen Flow Rate (L/min) [2] 15 Oxygen Flow Rate (L/min) [1 ( 15 Initial Baseline)] Oxygen Flow Rate (L/min) 3 Oxygen Delivery Method [6] Non-Rebreather Oxygen Delivery Method [5] Non-Rebreather Oxygen Delivery Method [4] Non-Rebreather Oxygen Delivery Method [3] Non-Rebreather Oxygen Delivery Method [2] Non-Rebreather Oxygen Delivery Method [1 ( Non-Rebreather Initial Baseline)] Oxygen Delivery Method Nasal Cannula Weight: 53 kg Body Mass Index (BMI) 18.9 Intake and Output for Last 24 Hours 10/31/19 11/01/19 11/02/19 23:59 23:59 23:59 Intake Total 4361.67 / 4361.67 2990 / 2990 1440 / 1440 Output Total 2080 / 2080 1450 / 1450 550 / 550 Balance 2281.67 / 2281.67 1540 / 1540 890 / 890 General: Alert, Oriented x3, Cooperative, No apparent distress, - - Appears older than stated age. Speaking in full sentences. HEENT: Atraumatic, PERRLA, EOMI, Normocephalic, - - No scleral icterus or injection noted Oral: Moist Mucosa, No Gingival or Mucosal Lesions/ Ulcerations Neck: Supple, No JVD, No Nodes, Trachea Midline Lungs: No rhonchi, No wheeze, No rales, Diminished, - - Symmetric expansion. Still with crepitus of the left chest Cardiovascular: Regular rate, Regular Rhythm, Normal S1, Normal S2, No murmurs, No rub noted, No Gallop Abdomen: Bowel Sounds Present, Soft, Non Tender, Non-Distended Extremities: No clubbing, No cyanosis, No edema, Capillary Refill Less than 3 Seconds Skin: - - Chest tube site is clean, dry and intact Musculoskeletal: No Tenderness to Palpation of Joints or Extremities Lymphatic: No Cervical, Supraclavicular, or Inguinal Adenopathy Neurological: Cranial nerves II-XII grossly intact, Neuro grossly intact, Motor Exam 5/5 strength throughout Psych/Mental Status: Normal Affect, Appropriate Current Medications Acetaminophen (Tylenol) 650 mg PO Q6H PRN PRN PRN Reason: Pain Score 1-10/Temp > 100.7 F Last Admin: 11/02/19 05:15 Dose: 650 mg Documented by: Albuterol Sulfate (Ventolin Aerosols) 2.5 mg INHALATION Q6H PRN PRN PRN Reason: sob/wheezing Last Admin: 10/30/19 01:30 Dose: 2.5 mg Documented by: Albuterol/Ipratropium (Duoneb) 3 ml INHALATION Q4HWA.RT [facility] Last Admin: 11/02/19 07:03 Dose: 3 ml Documented by: Amlodipine Besylate (Norvasc) 2.5 mg PO DAILY [facility] Last Admin: 11/02/19 08:27 Dose: 2.5 mg Documented by: Enoxaparin Sodium (Lovenox) 40 mg SC DAILY [facility] Last Admin: 11/02/19 08:26 Dose: 40 mg Documented by: Famotidine (Pepcid) 20 mg PO DAILY [facility] Last Admin: 11/02/19 08:26 Dose: 20 mg Documented by: Hydralazine HCl (Apresoline Iv) 10 mg IV Q6H PRN PRN PRN Reason: BLOOD PRESSURE Sodium Chloride () 1,000 mls @ 100 mls/hr IV .Q10H [facility] Last Admin: 11/02/19 04:34 Dose: 100 mls/hr Documented by: Sodium Chloride () 250 mls @ 15 mls/hr IV .[id number] PRN PRN Reason: Saline Flush Sodium Chloride () 250 mls @ 15 mls/hr IV .[id number] PRN PRN Reason: Additional IVPB Infusion Lorazepam (Ativan) 2 mg PO Q2H PRN PRN; Protocol PRN Reason: CIWA score > 8 but <15 Last Admin: 10/28/19 16:47 Dose: 2 mg Documented by: Lorazepam (Ativan) 2 mg PO UD PRN; Protocol PRN Reason: CIWA score >/=15. Lorazepam (Ativan) 2 mg IV Q2H PRN PRN; Protocol PRN Reason: CIWA score > 8 but <15 Last Admin: 10/26/19 19:24 Dose: 2 mg Documented by: Lorazepam (Ativan) 2 mg IV UD PRN; Protocol PRN Reason: CIWA score >/=15. Losartan Potassium (Cozaar) 50 mg PO BID [facility] Last Admin: 11/02/19 08:27 Dose: 50 mg Documented by: Multivitamins/Minerals (Multivitamin With Minerals (Bkc)) 1 tablet PO DAILYCM [facility] Last Admin: 11/02/19 08:27 Dose: 1 tablet Documented by: Nutritional Formula (Lactose Free) (Ensure Enlive) 120 ml PO 4X/DAY [facility] Last Admin: 11/02/19 08:27 Dose: Not Given Documented by: Ondansetron HCl (Zofran) 4 mg IV Q8H PRN PRN PRN Reason: NAUSEA/VOMITING Oxycodone HCl (Oxyir) 5 mg PO Q6H PRN PRN PRN Reason: Pain Score 4-10/10 Last Admin: 11/02/19 05:15 Dose: 5 mg Documented by: Prednisone () 30 mg PO DAILY@0800 [facility] Last Admin: 11/02/19 08:27 Dose: 30 mg Documented by: Sodium Chloride () 10 - 40 ml IV UD PRN PRN Reason: SALINE FLUSH Last Admin: 10/31/19 09:12 Dose: 10 ml Documented by: Medical Necessity - Tobacco Use Smoking Status: Current every day smoker Tobacco Use: Cigarettes Assessment/Plan All Active Problems (Last Reviewed 11/20/18 @ 06:36 by Maegan Jorge) Tension pneumothorax (Acute) Elevated troponin I level (Acute) Dyspnea (Acute) Acute respiratory failure with hypoxia (Acute) Back pain (Acute) RECOMMENDATIONS: 1. Monitor for tension physiology. Arrow dart kit at the bedside 2. Repeat chest x-ray tomorrow morning 3. Completed 7-day course of antibiotics. Scheduled bronchodilators and wean prednisone over 9-12 days. Decrease steroids for tomorrow 4. Continue supplemental oxygen and wean to maintain saturations at or above 90%. 5. Continue phenobarbital taper. Continue thiamine and folate. IMPRESSIONS: 1. Acute hypoxemic respiratory failure due to pneumothorax Unclear if the patient's presenting pneumothorax represents a primary spontaneous etiology versus traumatic from questionable fall. She does have underlying bilateral emphysematous changes and bullous disease, primarily in the upper lobes. Her presentation may be the consequence of ruptured bullae. Patient does have left-sided crepitus and leak increases after coughing episodes. Regardless, she has undergone tube thoracotomy. Patient did not have a leak yesterday and was being monitored overnight. However, with positioning this morning, there was no choice but to remove it. Patient should have an arrow dart at the bedside that can be placed if there is tension physiology. Patient will need to go to [place] if pneumothorax reaccumulate for pleurodesis and evaluation by CT surgery. 2. Presumptive COPD with extensive tobacco abuse history/right upper lobe pulmonary nodule The patient has an extensive smoking history and continues to smoke daily. Although she was previously referred to the pulmonary clinic in 2019, the patient failed to present for her office visit. Upon discharge, the patient would likely benefit from outpatient pulmonary follow-up so that baseline pulmonary function studies can be obtained. In addition, the patient has a known right upper lobe lung nodule, which will need to be followed longitudinally. 3. H. influenzae pneumonia The patient presented with radiographic evidence of a left lower lobe infiltrate. She will be continued on therapy for a presumptive COPD exacerbation with scheduled bronchodilators, antimicrobials and weaning steroids. Patient does have right lower lobe atelectasis and a pleural effusion, but this is likely secondary to splinting associated with the chest tube more than progression of pneumonia. No fevers been noted overnight. Patient completed antibiotic course. 4. History of alcohol dependency/CODE STATUS The patient reports a longstanding history of daily alcohol use, typically 6+ beers per day. Patient is made it through medical withdrawal therapy for alcoholism. Continue thiamine and folate accordingly. Replete electrolytes as necessary CODE STATUS was previously discussed and confirmed to be full code. Inpatient E&M: 59251 Subs Hosp L2
--- NOTE | 2019-11-02 10:39 | PCM.PN.HOSP ---
Patient Problems: Active and Suspected Problems (Last Reviewed 11/20/18 @ 06:36 by Maegan Jorge) Tension pneumothorax (Acute) Elevated troponin I level (Acute) Dyspnea (Acute) Acute respiratory failure with hypoxia (Acute) Subjective: Well, has no cough. Her chest tube to give pulled out a little bit therefore it was removed this morning Vitals/I&O's: Vital Signs Temp Pulse Resp BP Pulse Ox 98.2 F 57 L 18 132/70 H 98 11/02/19 08:39 11/02/19 08:39 11/02/19 08:39 11/02/19 08:39 11/02/19 08:39 Oxygen Flow Rate (L/min) [6] 15 Oxygen Flow Rate (L/min) [4] 15 Oxygen Flow Rate (L/min) [3] 15 Oxygen Flow Rate (L/min) [2] 15 Oxygen Flow Rate (L/min) [1 ( 15 Initial Baseline)] Oxygen Flow Rate (L/min) 3 Oxygen Delivery Method [6] Non-Rebreather Oxygen Delivery Method [5] Non-Rebreather Oxygen Delivery Method [4] Non-Rebreather Oxygen Delivery Method [3] Non-Rebreather Oxygen Delivery Method [2] Non-Rebreather Oxygen Delivery Method [1 ( Non-Rebreather Initial Baseline)] Oxygen Delivery Method Nasal Cannula Weight: 116 lb 13.52 oz Body Mass Index (BMI) 18.9 Intake and Output for Last 24 Hours 10/31/19 11/01/19 11/02/19 23:59 23:59 23:59 Intake Total 4361.67 / 4361.67 2990 / 2990 1440 / 1440 Output Total 2080 / 2080 1450 / 1450 550 / 550 Balance 2281.67 / 2281.67 1540 / 1540 890 / 890 General: Alert, Oriented x3, Cooperative, No apparent distress HEENT: Atraumatic, PERRLA, EOMI, Normocephalic Oral: Moist Mucosa Neck: Supple, No JVD Lungs: No rhonchi, mild wheezing bilaterally, diminished Cardiovascular: Regular rate, Regular Rhythm, Normal S1, Normal S2, No murmurs Abdomen: Soft, Non Tender, Non-Distended, No Hepato-splenomegaly Extremities: No edema, Capillary Refill Less than 3 Seconds Skin: No rashes, No breakdown Neurological: Neuro grossly intact, Sensory exam intact to light touch and pain Psych/Mental Status: Normal Affect, Appropriate Current Medications Acetaminophen (Tylenol) 650 mg PO Q6H PRN PRN PRN Reason: Pain Score 1-10/Temp > 100.7 F Last Admin: 11/02/19 05:15 Dose: 650 mg Documented by: Albuterol Sulfate (Ventolin Aerosols) 2.5 mg INHALATION Q6H PRN PRN PRN Reason: sob/wheezing Last Admin: 10/30/19 01:30 Dose: 2.5 mg Documented by: Albuterol/Ipratropium (Duoneb) 3 ml INHALATION Q4HWA.RT [facility] Last Admin: 11/02/19 07:03 Dose: 3 ml Documented by: Amlodipine Besylate (Norvasc) 2.5 mg PO DAILY [facility] Last Admin: 11/02/19 08:27 Dose: 2.5 mg Documented by: Enoxaparin Sodium (Lovenox) 40 mg SC DAILY [facility] Last Admin: 11/02/19 08:26 Dose: 40 mg Documented by: Famotidine (Pepcid) 20 mg PO DAILY [facility] Last Admin: 11/02/19 08:26 Dose: 20 mg Documented by: Hydralazine HCl (Apresoline Iv) 10 mg IV Q6H PRN PRN PRN Reason: BLOOD PRESSURE Sodium Chloride () 1,000 mls @ 100 mls/hr IV .Q10H [facility] Last Admin: 11/02/19 04:34 Dose: 100 mls/hr Documented by: Sodium Chloride () 250 mls @ 15 mls/hr IV .[id number] PRN PRN Reason: Saline Flush Sodium Chloride () 250 mls @ 15 mls/hr IV .[id number] PRN PRN Reason: Additional IVPB Infusion Lorazepam (Ativan) 2 mg PO Q2H PRN PRN; Protocol PRN Reason: CIWA score > 8 but <15 Last Admin: 10/28/19 16:47 Dose: 2 mg Documented by: Lorazepam (Ativan) 2 mg PO UD PRN; Protocol PRN Reason: CIWA score >/=15. Lorazepam (Ativan) 2 mg IV Q2H PRN PRN; Protocol PRN Reason: CIWA score > 8 but <15 Last Admin: 10/26/19 19:24 Dose: 2 mg Documented by: Lorazepam (Ativan) 2 mg IV UD PRN; Protocol PRN Reason: CIWA score >/=15. Losartan Potassium (Cozaar) 50 mg PO BID [facility] Last Admin: 11/02/19 08:27 Dose: 50 mg Documented by: Multivitamins/Minerals (Multivitamin With Minerals (Bkc)) 1 tablet PO DAILYCM [facility] Last Admin: 11/02/19 08:27 Dose: 1 tablet Documented by: Nutritional Formula (Lactose Free) (Ensure Enlive) 120 ml PO 4X/DAY [facility] Last Admin: 11/02/19 08:27 Dose: Not Given Documented by: Ondansetron HCl (Zofran) 4 mg IV Q8H PRN PRN PRN Reason: NAUSEA/VOMITING Oxycodone HCl (Oxyir) 5 mg PO Q6H PRN PRN PRN Reason: Pain Score 4-10/10 Last Admin: 11/02/19 05:15 Dose: 5 mg Documented by: Prednisone () 30 mg PO DAILY@0800 [facility] Last Admin: 11/02/19 08:27 Dose: 30 mg Documented by: Sodium Chloride () 10 - 40 ml IV UD PRN PRN Reason: SALINE FLUSH Last Admin: 10/31/19 09:12 Dose: 10 ml Documented by: STROKE Vital Signs/Narrative: Vital Signs Temp Pulse Resp BP Pulse Ox 11/02/19 08:39 98.2 F 57 L 18 132/70 H 98 11/02/19 07:05 100 20 H Medical Necessity - Tobacco Use Smoking Status: Current every day smoker Tobacco Use: Cigarettes Assessment/Plan All Active Problems (Last Reviewed 11/20/18 @ 06:36 by Maegan Jorge) Tension pneumothorax (Acute) Elevated troponin I level (Acute) Dyspnea (Acute) Acute respiratory failure with hypoxia (Acute) Back pain (Acute) 1. Acute hypoxic respiratory failure secondary to tension pneumothorax on the left and a left lower lobe community acquired pneumonia with Haemophilus influenza/severe bilateral emphysema with a COPD exacerbation/tobacco abuse/right upper lobe nodule -Chest tube was removed, stable chest x-ray in the morning. Will repeat chest x-ray at noon today if she re-accumulates and is hemodynamically stable will transfer however she is hemodynamically unstable will place under chest tube. -Completed her Levaquin course -A year ago in August she had a right upper lobe mass of around 7 mm she will need to follow-up with outpatient pulmonology for follow-up -Discussed tobacco cessation -Appreciate pulmonology's assistance -Continue with her home medications once her medication list is updated -Continue with duo nebs as well as p.o. steroids 2. Elevated troponin/HTN -Initial troponin was 0.388, EKG was unremarkable and she is not complaining of any chest pain -Repeat troponins went to 1.25, this is likely related to the severe hypoxia troponin did trend down to 1.190, and an echo had an EF of 55% with normal diastolic function without a wall motion abnormality therefore this elevated troponin is truly related to her hypoxia and her tension pneumothorax 3. Alcohol abuse -She drinks about 7-10 beers a day, and she will not go to rehab -She completed the alcohol withdrawal protocol DVT: Lovenox Inpatient E&M: 66964 Subs Hosp L2
--- NOTE | 2019-11-02 12:00 | RAD_ITS ---
STUDY: X-RAY CHEST REASON FOR EXAM: Female, 64 years old. History of pneumothorax. TECHNIQUE: PA and lateral views of the chest. COMPARISON: 11/02/2019, 5:36 AM. FINDINGS: The left chest tube has been removed. There is hyperinflation of the lungs consistent with chronic obstructive lung disease (COPD). No definite pneumothorax is seen. Mild atelectatic changes in the left lung base unchanged. Continued left subcutaneous emphysema. Normal size heart. Normal mediastinum and tripp. Normal visualized pulmonary arteries. There is atherosclerotic calcification of the aortic arch with tortuosity. The osseous structures are unchanged. There is no demonstrated abnormality of the visualized soft tissue structures of the upper abdomen. RAD/Chest PA and Lateral IMPRESSION: Status post removal of left chest tube. No evidence of pneumothorax. Persistent left subcutaneous emphysema. Electronically Signed: Isreal Schmidt MD at 12:56 EDT Tel , Service support ,
[2019-11-02] MEDS: Calcium Carbonate 500 MG Tablet 1000 MG PO (18:48)
[2019-11-03] VITALS (8 sets, daily range): BP systolic 128–132; BP diastolic 71–76; PULSE 59–93; RESP 16–20; TEMP 36.7–36.8; O2SAT 85–95
[2019-11-03] MEDS: 0.9% Normal Saline 1,000 ML 100 ML IV (02:36)
[2019-11-03 05:47] LABS: Absolute Lymphocyte Count 1.43 X10^3/uL (0.83-4.51); Absolute Neutrophil Count 6.2 X10^3/uL (2.0-7.7); Basophil# 0.01 X10^3/uL; Basophil% 0.1 % (0-1); Eosinophil# 0.39 X10^3/uL; Eosinophils% 4.3 % (0-5); Hematocrit 41.4 % (37-47); Hemoglobin 14.3 g/dL (12.0-15.0); Lymphocyte # 1.43 X10^3/ul (4.0); Lymphocyte % 15.7 % (19-41); Mean Corp Hgb Conc 34.5 g/dL (32-36); Mean Corpuscular Volume 92.6 fL (81-99); Mean Platelet Vol. 9.5 fl (6.2-12.0); Monocyte# 1.04 X10^3/uL; Monocyte% 11.4 % (0-10); NRBC Flagged by Analyzer 0 % (0-5); Neutrophil % 68.1 % (47-70); Platelet Count 422 K/mm3 (150-450); RBC Distribution Width CV 12.9 % (11.6-14.6); RBC Distribution Width SD 43.8 fl (35.1-43.9); Red Blood Count 4.47 M/mm3 (4.2-5.4); White Blood Count 9.1 K/mm3 (4.4-11.0)
--- NOTE | 2019-11-03 05:55 | RAD_ITS ---
STUDY: X-RAY CHEST REASON FOR EXAM: Female, 64 years old. FOLLOW UP PTX TECHNIQUE: Single AP portable view of the chest. COMPARISON: Comparison is made with prior study dated 11/02/2019. FINDINGS: Stable left subcutaneous emphysema. No pneumothorax is seen at this time. Minimal increased linear markings at the right lung base suggestive of atelectasis. Stable blunting of the left costophrenic angle. Normal size heart. Normal mediastinum and tripp. Normal visualized pulmonary arteries. Normal visualized aortic arch and descending thoracic aorta. Normal visualized thoracic spine. Normal visualized ribs, clavicles, and shoulders. There is no demonstrated abnormality of the visualized soft tissue structures of the upper abdomen. RAD/Chest 1 View (Portable) IMPRESSION: No evidence of pneumothorax. Mild increased markings at the right lung base suggestive of atelectasis. Electronically Signed: Roni Sanchez, at 9:30 EDT , Service support ,
[2019-11-03 06:07] LABS: Anion Gap 5 (5-15); BUN 8 mg/dL (7-18); BUN/Creat Ratio 18.6 RATIO (10-20); Calcium,Total 8.1 mg/dL (8.5-10.1); Chloride 96 mmol/L (98-107); Creatinine, Serum 0.43 mg/dL (0.55-1.02); EST Glomerular Filtration Rate 156 mL/min (>60); Est Glom Filt Rate - Afr Amer 188 mL/min (>60); Estimated Creatinine Clearance 46.21 ml/min; Glucose 81 mg/dL (74-106); Sodium Level 132 mmol/L (136-145)
[2019-11-03] MEDS: Ipratropium/Albuterol Sulfate 3 ML AMPUL.NEB INHALATION ×2 (06:37→11:03)
--- NOTE | 2019-11-03 06:52 | PCM.PN.PUL ---
Subjective: The patient was seen and examined at the bedside this morning. Events from the last 24 hours have been reviewed. The patient is currently afebrile, hemodynamically stable and maintaining appropriate oxygen saturations on 2 L/min via nasal cannula. Chest x-ray from this morning failed to demonstrate pneumothorax recurrence following chest tube removal. Objective: The patient's most recent lab work, culture data and imaging studies have all been personally reviewed. Sputum culture dated October 24 was positive for Haemophilus influenza. - Physical Exam Vitals/I&O's: Vital Signs Temp Pulse Resp BP Pulse Ox 98.2 F 82 16 132/76 H 95 11/03/19 04:34 11/03/19 04:34 11/03/19 04:34 11/03/19 04:34 11/03/19 04:34 Oxygen Flow Rate (L/min) [6] 15 Oxygen Flow Rate (L/min) [4] 15 Oxygen Flow Rate (L/min) [3] 15 Oxygen Flow Rate (L/min) [2] 15 Oxygen Flow Rate (L/min) [1 ( 15 Initial Baseline)] Oxygen Flow Rate (L/min) 2 Oxygen Delivery Method [6] Non-Rebreather Oxygen Delivery Method [5] Non-Rebreather Oxygen Delivery Method [4] Non-Rebreather Oxygen Delivery Method [3] Non-Rebreather Oxygen Delivery Method [2] Non-Rebreather Oxygen Delivery Method [1 ( Non-Rebreather Initial Baseline)] Oxygen Delivery Method Nasal Cannula Weight: 116 lb 9.992 oz Body Mass Index (BMI) 18.9 Intake and Output for Last 24 Hours 11/01/19 11/02/19 11/03/19 23:59 23:59 23:59 Intake Total 2990 / 2990 4915 / 4915 690 / 690 Output Total 1450 / 1450 550 / 550 Balance 1540 / 1540 4365 / 4365 690 / 690 General: Alert, No apparent distress HEENT: Atraumatic, Normocephalic Oral: Moist Mucosa Neck: Supple, No Nodes, Trachea Midline Lungs: Diminished, - - Prolonged expiratory phase Cardiovascular: Regular rate, Regular Rhythm Abdomen: Bowel Sounds Present, Soft, Non Tender Extremities: No clubbing, No cyanosis, No edema Skin: No breakdown Musculoskeletal: Cachexia, Muscle Wasting Lymphatic: No Cervical, Supraclavicular, or Inguinal Adenopathy Neurological: Cranial nerves II-XII grossly intact, Neuro grossly intact Psych/Mental Status: Normal Affect, Appropriate Labs (Last 48 Hours) 11/01/19 11/03/19 11/03/19 05:50 05:36 05:36 WBC 9.1 RBC 4.47 Hgb 14.3 Hct 41.4 MCV 92.6 MCH 32.0 MCHC 34.5 RDW Std Deviation 43.8 RDW Coeff of Oral 12.9 Plt Count 422 MPV 9.5 Immature Gran % (Auto) 0.400 Neut % (Auto) 68.1 Lymph % (Auto) 15.7 L [place] % (Auto) 11.4 H Eos % (Auto) 4.3 Baso % (Auto) 0.1 Absolute Neuts (auto) 6.2 Absolute Lymphs (auto) 1.43 Nucleated RBC % 0 Sodium 130 L 132 L Potassium 4.2 4.0 Chloride 96 L 96 L Carbon Dioxide 29.0 31.0 Anion Gap 5 5 BUN 8 8 Creatinine 0.38 L 0.43 L Estim Creat Clear Calc 47.00 46.21 Est GFR (MDRD) Af Amer 215 188 Est GFR (MDRD) Non-Af 178 156 BUN/Creatinine Ratio 20.8 H 18.6 Glucose 82 81 Calcium 7.7 L 8.1 L Clinical Impression(s) from Imaging Studies Chest X-Ray 10/24/19 07:21 IMPRESSION: Left 15-20% pneumothorax. Mild shift of the heart and mediastinal structures towards the right side. An element of the tension should be ruled out. Electronically Signed: Roni Sanchez, at 8:17 EDT , Service support , Chest X-Ray 10/24/19 08:06 IMPRESSION: Status post left chest tube insertion with the resolution of the left-sided pneumothorax. The heart and mediastinal structures are now in the midline. Residual increased markings in the left lung as described. Electronically Signed: Roni Sanchez, at 8:36 EDT , Service support , Chest CTA 10/24/19 08:25 IMPRESSION: Status post left chest tube placement with the tip in the left apex. Tiny residual left apical pneumothorax. Diffuse emphysematous changes in both lungs worse in the upper lobes with bullous formation. Infiltration in the left lower lobe with bibasilar scarring. Electronically Signed: Roni Sanchez, at 9:40 EDT , Service support , Chest X-Ray 10/25/19 05:55 IMPRESSION: Possible trace left apical pneumothorax. Increasing left chest wall soft tissue gas. at 0817 Reported and signed by: Heena Wang MD Electronically Signed: Heena Wang MD at 8:16 EDT Tel , Service support , Chest X-Ray 10/25/19 08:34 IMPRESSION: Overall, no significant change since previous exam. Left chest tube in stable position. Prominent markings unchanged. Residual left subcutaneous emphysema. No evidence of pneumothorax. Electronically Signed: Isreal Schmidt MD at 10:04 EDT Tel , Service support , Chest X-Ray 10/26/19 06:09 IMPRESSION: No significant interval change. at 0648 Reported and signed by: Heena Wang MD Electronically Signed: Heena Wang MD at 6:47 EDT Tel , Service support , Chest X-Ray 10/28/19 05:33 IMPRESSION: Left-sided chest tube, no visualized pneumothorax. Right pleural effusion and right lower lobe atelectasis. Electronically Signed: Racheal Ho MD at 6:28 EDT Tel , Service support , Chest X-Ray 10/29/19 16:35 IMPRESSION: Right chest tube remains present ending in the posterior right upper pleural space. Pneumothorax is visible only on the lateral radiograph anteriorly measuring 5 mm from the visceral to the parietal pleura at the midsternal level. Subcutaneous emphysema is diminishing. Continued severe COPD. The right pleural effusion has somewhat shifted into the oblique fissure and/or she has partial right middle lobe atelectasis. Electronically Signed: Sujata Mulligan MD at 17:32 EDT , Service support , Chest X-Ray 10/30/19 05:55 IMPRESSION: Stable small left apical pneumothorax. The remainder the examination is unchanged. Electronically Signed: Roni Sanchez, at 7:25 EDT , Service support , Chest X-Ray 10/30/19 17:00 IMPRESSION: Left chest tube unchanged with no substantial residual pneumothorax. Stable subcutaneous emphysema. Stable chronic changes of the right lung. Electronically Signed: Sujata Mulligan MD at 17:59 EDT , Service support , Chest X-Ray 10/31/19 05:30 IMPRESSION: Stable examination. Electronically Signed: Roni Sanchez, at 10:38 EDT , Service support , Chest X-Ray 11/02/19 05:33 IMPRESSION: No pneumothorax. Minimal left basilar atelectasis. Electronically Signed: Edwardo Leonard DO at 9:25 EDT Tel [phone], Service support , Chest X-Ray 11/02/19 12:00 IMPRESSION: Status post removal of left chest tube. No evidence of pneumothorax. Persistent left subcutaneous emphysema. Electronically Signed: Isreal Schmidt MD at 12:56 EDT Tel , Service support , Current Medications Acetaminophen (Tylenol) 650 mg PO Q6H PRN PRN PRN Reason: Pain Score 1-10/Temp > 100.7 F Last Admin: 11/02/19 16:27 Dose: 650 mg Documented by: Albuterol Sulfate (Ventolin Aerosols) 2.5 mg INHALATION Q6H PRN PRN PRN Reason: sob/wheezing Last Admin: 10/30/19 01:30 Dose: 2.5 mg Documented by: Albuterol/Ipratropium (Duoneb) 3 ml INHALATION Q4HWA.RT [facility] Last Admin: 11/03/19 06:37 Dose: 3 ml Documented by: Amlodipine Besylate (Norvasc) 2.5 mg PO DAILY [facility] Last Admin: 11/02/19 08:27 Dose: 2.5 mg Documented by: Calcium Carbonate (Tums) 1,000 mg PO Q4H PRN PRN PRN Reason: HEARTBURN OR INDIGESTION Last Admin: 11/02/19 18:48 Dose: 1,000 mg Documented by: Enoxaparin Sodium (Lovenox) 40 mg SC DAILY [facility] Last Admin: 11/02/19 08:26 Dose: 40 mg Documented by: Famotidine (Pepcid) 20 mg PO DAILY [facility] Last Admin: 11/02/19 08:26 Dose: 20 mg Documented by: Hydralazine HCl (Apresoline Iv) 10 mg IV Q6H PRN PRN PRN Reason: BLOOD PRESSURE Sodium Chloride () 1,000 mls @ 100 mls/hr IV .Q10H [facility] Last Infusion: 11/03/19 06:00 Dose: 100 mls/hr Documented by: Sodium Chloride () 250 mls @ 15 mls/hr IV .[id number] PRN PRN Reason: Saline Flush Sodium Chloride () 250 mls @ 15 mls/hr IV .[id number] PRN PRN Reason: Additional IVPB Infusion Lorazepam (Ativan) 2 mg PO Q2H PRN PRN; Protocol PRN Reason: CIWA score > 8 but <15 Last Admin: 10/28/19 16:47 Dose: 2 mg Documented by: Lorazepam (Ativan) 2 mg PO UD PRN; Protocol PRN Reason: CIWA score >/=15. Lorazepam (Ativan) 2 mg IV Q2H PRN PRN; Protocol PRN Reason: CIWA score > 8 but <15 Last Admin: 10/26/19 19:24 Dose: 2 mg Documented by: Lorazepam (Ativan) 2 mg IV UD PRN; Protocol PRN Reason: CIWA score >/=15. Losartan Potassium (Cozaar) 50 mg PO BID [facility] Last Admin: 11/02/19 20:19 Dose: 50 mg Documented by: Multivitamins/Minerals (Multivitamin With Minerals (Bkc)) 1 tablet PO DAILYCM [facility] Last Admin: 11/02/19 08:27 Dose: 1 tablet Documented by: Nutritional Formula (Lactose Free) (Ensure Enlive) 120 ml PO 4X/DAY [facility] Last Admin: 11/02/19 20:19 Dose: Not Given Documented by: Ondansetron HCl (Zofran) 4 mg IV Q8H PRN PRN PRN Reason: NAUSEA/VOMITING Oxycodone HCl (Oxyir) 5 mg PO Q6H PRN PRN PRN Reason: Pain Score 4-10/10 Last Admin: 11/02/19 20:18 Dose: 5 mg Documented by: Prednisone () 30 mg PO DAILY@0800 [facility] Last Admin: 11/02/19 08:27 Dose: 30 mg Documented by: Sodium Chloride () 10 - 40 ml IV UD PRN PRN Reason: SALINE FLUSH Last Admin: 10/31/19 09:12 Dose: 10 ml Documented by: Medical Necessity - Tobacco Use Smoking Status: Current every day smoker Tobacco Use: Cigarettes Assessment/Plan All Active Problems (Last Reviewed 11/20/18 @ 06:36 by Maegan Jorge) Tension pneumothorax (Acute) Elevated troponin I level (Acute) Dyspnea (Acute) Acute respiratory failure with hypoxia (Acute) Back pain (Acute) RECOMMENDATIONS: 1. Continue scheduled bronchodilators therapy along with steroids. Provide with prednisone taper at discharge. 2. Perform walking oximetry study prior to consideration for discharge home. 3. Outpatient pulmonary follow-up within 2 weeks is recommended. IMPRESSIONS: 1. Acute hypoxemic respiratory failure due to pneumothorax Unclear if the patient's presenting pneumothorax represents a secondary spontaneous etiology versus traumatic from questionable fall. She does have underlying bilateral emphysematous changes and bullous disease, primarily in the upper lobes. Her presentation may be the consequence of ruptured bullae. The patient subsequently underwent tube thoracotomy with resolution of pneumothorax. Recommend continuing supplemental oxygen to maintain saturations at or above 90%. Perform walking oximetry study prior to consideration for discharge home. 2. Presumptive COPD with extensive tobacco abuse history/right upper lobe pulmonary nodule The patient has an extensive smoking history and continues to smoke daily. Although she was previously referred to the pulmonary clinic in 2019, the patient failed to present for her office visit. Upon discharge, the patient would likely benefit from outpatient pulmonary follow-up so that baseline pulmonary function studies can be obtained. In addition, the patient has a known right upper lobe lung nodule, which will need to be followed longitudinally. 3. Haemophilus influenza pneumonia The patient presented with radiographic evidence of a left lower lobe infiltrate. Sputum culture was positive for Haemophilus influenza. The patient was continued on bronchodilators, antimicrobials and steroids. She will require a steroid taper at discharge. 4. History of alcohol dependency/CODE STATUS The patient reports a longstanding history of daily alcohol use, typically 6+ beers per day. CODE STATUS was previously discussed and confirmed to be full code. This note was generated with [employer] dictation software. It may contain incorrect words, spelling, and punctuation that were not noted in checking the note before signing. Inpatient E&M: [id number] [facility] L2
[2019-11-03] MEDS: predniSONE 20 MG Tablet 30 MG PO (08:55)
[2019-11-03] MEDS: Multivitamins,Ther W-Minerals Tablet 1 TABLET PO (08:55)
[2019-11-03] MEDS: Famotidine 20 MG Tablet PO (08:55)
[2019-11-03] MEDS: Enoxaparin 40 MG/0.4 ML Syringe SC (08:56)
[2019-11-03] MEDS: Losartan Potassium 50 MG Tablet PO (08:56)
[2019-11-03] MEDS: amLODIPine 2.5 MG Tablet PO (08:56)
--- NOTE | 2019-11-03 11:31 | DCINST_ITS ---
- Discharge Diagnoses Current Active Problems: Current Active and Chronic Problems (Last Reviewed 11/20/18 @ 06:36 by Maegan Jorge) Tension pneumothorax (Acute) Elevated troponin I level (Acute) Dyspnea (Acute) Acute respiratory failure with hypoxia (Acute) COPD (chronic obstructive pulmonary disease) (Chronic) You will use the following diet at home:: No restrictions Your food should be the consistency of: Regular Your liquids should be the consistency of: Regular/Thin Discharge Activity: Return to Normal Activity Weight Bearing Status: Full weight bearing Additional Instructions: DO NOT SMOKE. WEAR OXYGEN PRESCRIBED. YOU WILL NEED FOLLOW UP FOR YOUR RIGHT UPPER LUNG NODULE-SEE DR BENTLEY Allergies/Adverse Reactions: Allergies bupropion [From Wellbutrin] Allergy (Severe, Verified 10/24/19 08:51) Unknown Medications to take at Discharge Albuterol Inhaler [Ventolin Hfa] 2 puff INHALATION Q4H PRN PRN 10/13/15 Budesonide/Formoterol 160/4.5 [Symbicort 160/4.5 Mcg Inhaler (SP)] 2 puff INHALATION BID 10/13/15 Citalopram Hydrobromide [Citalopram HBr] 20 mg PO DAILY 10/13/15 Guaifenesin/Codeine Phosphate [Virtussin AC Liquid] 5 ml PO PRN PRN 10/13/15 Omeprazole 40 mg PO DAILY 10/13/15 Triamcinolone 0.025% Cream [Kenalog] 1 applic TOPICAL TID PRN PRN 10/13/15 albuterol sulfate 2.5 mg INHALATION Q4H PRN 11/12/18 alprazolam 0.5 mg tablet 0.5 mg PO QHS 11/12/18 amlodipine 2.5 mg tablet 2.5 mg PO DAILY 11/12/18 cholecalciferol (vitamin D3) 25 mcg (1,000 unit) capsule 1,000 unit PO DAILY 11/12/18 cyclobenzaprine 10 mg tablet 10 mg PO TID PRN 11/12/18 gabapentin 300 mg capsule 300 mg PO DAILY 11/12/18 guaifenesin 600 mg tablet, extended release 12 hr 600 mg PO BID 11/12/18 losartan 50 mg tablet 50 mg PO BID tab 11/12/18 melatonin 3 mg capsule 9 mg PO HS cap 11/12/18 polyethylene glycol 3350 17 gram oral powder packet 17 g PO DAILY 11/12/18 Hydrocodone/Acetaminophen [Hydrocodone-Acetamin 5-325 mg] 1 ea PO TID 10/27/19 M-Vit,Tx,Iron,Mins/Calc/Folic [Thera-M Caplet] 1 ea PO DAILY 10/27/19 Prednisone 10 mg PO DAILY #18 tab 11/03/19 The following prescriptions were given: Prednisone 10 mg PO DAILY #18 tab Transmission Status: Pending to [facility] Primary Care Physician: May Garcia MD [Primary Care Provider] - Please follow up with your Primary Care Physician in: IN ONE WEEK Test Results: Test results from this visit will be discussed in further detail at your follow- up appointment, if applicable. Please Follow Up With: Kirill Bentley, DO When: IN TWO WEEKS
--- NOTE | 2019-11-03 11:47 | CASEMGMT ---
Addendum entered by Alise Mao 11/03/19 12:27: [place] 3[place]ion [place] [facility] [place] Yovana GARCIA CM Original Note: This RN CM to room to discuss discharge plan with pt at this time. Pt declines need for any further therapy such as, OP or HHC at this time. Pt states 'I have lots of family who can help, if I need it.' Pt states no preference for DME company, stating 'Whoever is the closest and easiest.' Pt still needs ambulatory pulse ox at this time. CM to follow and [place] to [place] [facility] qual[place]. Pt voices no further questions/concerns/needs at this time. Pt is anxious to leave at this time. Yovana GARCIA CM
--- NOTE | 2019-11-03 12:42 | PHA.DC.MC ---
Pharmacy Service has performed discharge medication reconciliation and counseling for this patient. The patient was counseled on the following discharge medications and changes in medications for homegoing were reviewed. 1. PREDNISONE 2. NORCO The Reason for Use, instructions for use, and potential side effects were reviewed for all new medications. The patient's questions regarding all of their medications were answered. The patient was able to verbally demonstrate an understanding of their discharge medications. NOTE: patient expressed desire for pain meds at time of discharge, reports being out. Pt's home medlist states she takes [place] TID [place], but per [facility] report, only takes TID PRN, and has not been filled since 06/2019. Discussed with MD; MD to send over prescription for [place] for short term supply. Home medication list also updated at this time to remove scheduled [place] since pt not taking. Notified patient of this at this time that Rx to be sent over. Home Medications Albuterol Inhaler [Ventolin Hfa] 2 puff INHALATION Q4H PRN PRN 10/13/15 Budesonide/Formoterol 160/4.5 [Symbicort 160/4.5 Mcg Inhaler (SP)] 2 puff INHALATION BID 10/13/15 Citalopram Hydrobromide [Citalopram HBr] 20 mg PO DAILY 10/13/15 Guaifenesin/Codeine Phosphate [Virtussin AC Liquid] 5 ml PO PRN PRN 10/13/15 Omeprazole 40 mg PO DAILY 10/13/15 Triamcinolone 0.025% Cream [Kenalog] 1 applic TOPICAL TID PRN PRN 10/13/15 albuterol sulfate 2.5 mg INHALATION Q4H PRN 11/12/18 alprazolam 0.5 mg tablet 0.5 mg PO QHS 11/12/18 amlodipine 2.5 mg tablet 2.5 mg PO DAILY 11/12/18 cholecalciferol (vitamin D3) 25 mcg (1,000 unit) capsule 1,000 unit PO DAILY 11/12/18 cyclobenzaprine 10 mg tablet 10 mg PO TID PRN 11/12/18 gabapentin 300 mg capsule 300 mg PO DAILY 11/12/18 guaifenesin 600 mg tablet, extended release 12 hr 600 mg PO BID 11/12/18 losartan 50 mg tablet 50 mg PO BID tab 11/12/18 melatonin 3 mg capsule 9 mg PO HS cap 11/12/18 polyethylene glycol 3350 17 gram oral powder packet 17 g PO DAILY 11/12/18 M-Vit,Tx,Iron,Mins/Calc/Folic [Thera-M Caplet] 1 ea PO DAILY 10/27/19 Hydrocodone/Acetaminophen [[place] 5-325 Tablet] 1 ea PO Q4H PRN PRN 7 Days #20 tab 11/03/19 Prednisone 10 mg PO DAILY #18 tab 11/03/19 The patient's discharge medication list was reviewed for discrepancies and discrepancies were resolved.
--- NOTE | 2019-11-03 18:06 | DS.PCM_ITS ---
Discharge Date and Diagnosis Date of Admission: 10/24/19 Date of Discharge: 11/03/19 - Primary Discharge Diagnosis Acute Problems: #1 acute hypoxic respiratory failure secondary to tension pneumothorax of the left lung superimposed on a left lower lobe community-acquired pneumonia with Haemophilus influenza and severe chronic obstructive pulmonary disease with exacerbation #2 left lower lobe community-acquired pneumonia with Haemophilus influenza #3 severe chronic obstructive pulmonary disease with exacerbation #4 elevated troponin-etiology unclear #5 essential hypertension #6 chronic alcohol abuse #7 right upper lobe lung nodule suspicious for cancer - Secondary Discharge Diagnosis Chronic Problems: Chronic Problems (Last Reviewed 11/20/18 @ 06:36 by Maegan Jorge) Allergic rhinitis (Chronic) Depression (Chronic) Chronic bronchitis (Chronic) Insomnia (Chronic) Emphysema of lung (Chronic) Hypertension (Chronic) Dysphagia (Chronic) COPD (chronic obstructive pulmonary disease) (Chronic) Anxiety (Chronic) Hospital Course and Treatment Operations: None Procedures: None Summary of Care Provided: The patient is a 64 year old F who was seen in the emergency room at [facility] with a chief complaint of severe shortness of breath, she was brought in by squad and was found to have a pulse ox of 68% on room air, she was placed on supplemental oxygen and brought to the emergency room at [facility] for evaluation. Chest x-ray performed in the emergency room showed a tension pneumothorax on the left and a chest tube was inserted with resolution of the pneumothorax. CAT scan of the chest demonstrated possible left lower lobe pneumonia. Patient was admitted and seen in consultation by pulmonary medicine, patient was treated with IV antibiotics and discussions were carried out with the patient concerning her alcohol usage-patient refused any counseling concerning cessation of her alcohol use. Patient required BiPAP at times during her hospitalization to maintain her oxygen saturation. Echocardiogram revealing normal EF, RV systolic pressure was not able to be estimated. Patient was transferred from the PCU to the medical intensive care due to increased work of breathing. She had to be placed on sedation for agitation while in the ICU. Knowledge of the patient's troponin elevation was unknown. Patient's sputum culture grew out Haemophilus influenzae, patient underwent a long protracted course in the hospital, her chest tube was finally removed and repeat chest x-ray showed that she did not have a recurrent pneumothorax. Patient was not able to be weaned from oxygen completely however at the time of discharge. On 11/03/2019, patient was seen and examined: On examination she appeared older than her stated age, she does not appear to be in any distress. Vital signs as documented. Skin warm and dry and without overt rashes. Neck without JVD, thyroid appears normal, trachea is midline, neck is supple. Lungs clear, normal air movement was noted. Heart exam notable for regular rhythm, normal sounds and absence of murmurs, rubs or gallops. Abdomen unremarkable and without evidence of organomegaly, masses, or abdominal aortic enlargement, bowel sounds are present in all 4 quadrants, no abdominal tenderness was noted. Extremities nonedematous, no cyanosis was noted, no clubbing was noted. Neuro: Cranial nerves II through XII are grossly intact, no focal motor deficits were noted, sensation to light touch and pinprick is intact, motor exam 5/5 throughout. Psych: Patient is alert and oriented x3, she does not appear anxious or depressed, she does not appear agitated. On 11/03/2019, patient appeared to be in stable condition for discharge home. P atient required 3 L of oxygen when ambulating to maintain her pulse ox at 92%, she did not require oxygen at rest as her pulse ox was 94% on room air at rest, while ambulating on room air her oxygen sat was 85%. She is expected to wear oxygen when ambulating, she is also expected to use oxygen outside her home during her activities. Patient was set up with oxygen. - Physical Exam Vitals/I&O's: Vital Signs Temp Pulse Resp BP Pulse Ox 98.0 F 86 16 128/71 H 94 11/03/19 08:53 11/03/19 11:03 11/03/19 11:03 11/03/19 08:53 11/03/19 12:07 Oxygen Flow Rate (L/min) [ 3 AMBULATION with Oxygen] Oxygen Flow Rate (L/min) [ 0 AMBULATING on Room Air] Oxygen Flow Rate (L/min) [At 0 REST on Room Air] Oxygen Flow Rate (L/min) [6] 15 Oxygen Flow Rate (L/min) [4] 15 Oxygen Flow Rate (L/min) [3] 15 Oxygen Flow Rate (L/min) [2] 15 Oxygen Flow Rate (L/min) [1 ( 15 Initial Baseline)] Oxygen Flow Rate (L/min) 2 Oxygen Delivery Method [6] Non-Rebreather Oxygen Delivery Method [5] Non-Rebreather Oxygen Delivery Method [4] Non-Rebreather Oxygen Delivery Method [3] Non-Rebreather Oxygen Delivery Method [2] Non-Rebreather Oxygen Delivery Method [1 ( Non-Rebreather Initial Baseline)] Oxygen Delivery Method Nasal Cannula Weight: 52.9 kg Body Mass Index (BMI) 18.9 Intake and Output for Last 24 Hours 11/01/19 11/02/19 11/03/19 23:59 23:59 23:59 Intake Total 2990 / 2990 4915 / 4915 1183.33 / 1183.33 Output Total 1450 / 1450 550 / 550 Balance 1540 / 1540 4365 / 4365 1183.33 / 1183.33 Laboratory Results 11/03/19 05:36: WBC 9.1, RBC 4.47, Hgb 14.3, Hct 41.4, MCV 92.6, MCH 32.0, MCHC 34.5, RDW Std Deviation 43.8, RDW Coeff of Oral 12.9, Plt Count 422, MPV 9.5, Immature Gran % (Auto) 0.400, Neut % (Auto) 68.1, Lymph % (Auto) 15.7 L, [place] % (Auto) 11.4 H, Eos % (Auto) 4.3, Baso % (Auto) 0.1, Absolute Neuts (auto) 6.2, Absolute Lymphs (auto) 1.43, Nucleated RBC % 0 11/03/19 05:36: Sodium 132 L, Potassium 4.0, Chloride 96 L, Carbon Dioxide 31.0, Anion Gap 5, BUN 8, Creatinine 0.43 L, Estim Creat Clear Calc 46.21, Est GFR (MDRD) Af Amer 188, Est GFR (MDRD) Non-Af 156, BUN/Creatinine Ratio 18.6, Glucose 81, Calcium 8.1 L Discharge Activity: Return to Normal Activity Weight Bearing Status: Full weight bearing Home Medications: Medications to take at Discharge Albuterol Inhaler [Ventolin Hfa] 2 puff INHALATION Q4H PRN PRN 10/13/15 Budesonide/Formoterol 160/4.5 [Symbicort 160/4.5 Mcg Inhaler (SP)] 2 puff INHALATION BID 10/13/15 Citalopram Hydrobromide [Citalopram HBr] 20 mg PO DAILY 10/13/15 Guaifenesin/Codeine Phosphate [Virtussin AC Liquid] 5 ml PO PRN PRN 10/13/15 Omeprazole 40 mg PO DAILY 10/13/15 Triamcinolone 0.025% Cream [Kenalog] 1 applic TOPICAL TID PRN PRN 10/13/15 albuterol sulfate 2.5 mg INHALATION Q4H PRN 11/12/18 alprazolam 0.5 mg tablet 0.5 mg PO QHS 11/12/18 amlodipine 2.5 mg tablet 2.5 mg PO DAILY 11/12/18 cholecalciferol (vitamin D3) 25 mcg (1,000 unit) capsule 1,000 unit PO DAILY 11/12/18 cyclobenzaprine 10 mg tablet 10 mg PO TID PRN 11/12/18 gabapentin 300 mg capsule 300 mg PO DAILY 11/12/18 guaifenesin 600 mg tablet, extended release 12 hr 600 mg PO BID 11/12/18 losartan 50 mg tablet 50 mg PO BID tab 11/12/18 melatonin 3 mg capsule 9 mg PO HS cap 11/12/18 polyethylene glycol 3350 17 gram oral powder packet 17 g PO DAILY 11/12/18 M-Vit,Tx,Iron,Mins/Calc/Folic [Thera-M Caplet] 1 ea PO DAILY 10/27/19 Hydrocodone/Acetaminophen [[place] 5-325 Tablet] 1 ea PO Q4H PRN PRN 7 Days #20 tab 11/03/19 Prednisone 10 mg PO DAILY #18 tab 11/03/19 Following Prescriptions Were Given to Patient: Hydrocodone/Acetaminophen [[place] 5-325 Tablet] 1 ea PO Q4H PRN PRN 7 Days #20 tab PRN Reason: Pain Score 1-10/10 Transmission Status: Received by [facility] Prednisone 10 mg PO DAILY #18 tab Transmission Status: Received by [facility] Primary Care Physician: May Garcia MD [Primary Care Provider] - Please follow up with your Primary Care Physician in: IN ONE WEEK Please Follow Up With: Kirill Bentley DO When: IN TWO WEEKS Please Follow Up With: May Garcia MD Disposition: Home Minutes spent on discharge:: 32 Patient Condition:: Stable Medical Necessity - Tobacco Use Smoking Status: Current every day smoker Tobacco Use: Cigarettes Meaningful Use Info Meaningful Use Diagnoses (Choose all that apply): None applicable Inpatient E&M: 48826 Disch Hosp
--- NOTE | 2019-11-04 13:10 | CASEMGMT ---
RADHA CM DC PHONE CALL DC DATE: 11/03/2019 DC DISPOSITION: Home DC DIAGNOSIS: Tension pneumothorax LACE/STRATA: 06/07 F/U APPTS MADE: yes Attempted call to phone. No answer and no messaging with name identifier. Britt VARGASN RN ACM
== END 2019-11-03 14:20 | disposition home or self-care (01) | DRG 199 ==
LOC: ED 09:35 → PCU 10:53 → ICU 10-27 07:44 → PCU 10-28 15:48
PROVIDERS: Internal Medicine Critical Care Medicine; Student in an Organized Health Care Education/Training Program; Admitting Provider Family Medicine; Emergency Provider Emergency Medicine; PCP Internal Medicine; Visit Provider Internal Medicine
DX: J93.0 Spontaneous tension pneumothorax (principal); J96.01 Acute respiratory failure with hypoxia; J14 Pneumonia due to Hemophilus influenzae; J44.0 Chronic obstructive pulmonary disease with (acute) lower respiratory infection; J44.1 Chronic obstructive pulmonary disease with (acute) exacerbation; T79.7XXA Traumatic subcutaneous emphysema, initial encounter; F10.239 Alcohol dependence with withdrawal, unspecified; I10 Essential (primary) hypertension; R13.10 Dysphagia, unspecified; F32.9 Major depressive disorder, single episode, unspecified; F41.9 Anxiety disorder, unspecified; R91.1 Solitary pulmonary nodule; F10.20 Alcohol dependence, uncomplicated; F17.210 Nicotine dependence, cigarettes, uncomplicated; Z79.51 Long term (current) use of inhaled steroids; Z79.899 Other long term (current) drug therapy; J93.82 Other air leak
CPT/HCPCS: 32551; 36415; 36600; 71045; 71046; 71275; 80048; 80053; 82803; 83605; 83735; 83880; 84100; 84484; 85025; 85379; 85610; 85730; 87040; 87070; 87077; 87205; 87449; 87641; 93005; 93306; 94002; 94003; 94640; 97110; 97116; 97162; 97166; 97530; 97535; 99152; 99153; 99285; 99406; J7030; J7040; Q9957; Q9967; A4216; C8929; J2405; J3490

== ENCOUNTER 2019-12-19 10:05 | Observation (INO) | payer MEDICARE, MEDICAID, SELFPAY ==
[2019-11-03 12:08] VITALS: BMI 18.9
[2019-12-19] VITALS (13 sets, daily range): BP systolic 108–130; BP diastolic 53–83; PULSE 44–99; RESP 18–29; TEMP 36–37.1; O2SAT 81–98; BMI 19.0; BMI 17.6
--- NOTE | 2019-12-19 10:22 | EKG12_ITS ---
Test Reason : SOB Blood Pressure : / mmHG Vent. Rate : 099 BPM Atrial Rate : 147 BPM P-R Int : 000 ms QRS Dur : 090 ms QT Int : 392 ms P-R-T Axes : 050 055 066 degrees QTc Int : 503 ms Sinus tachycardia with 2nd degree A-V block ([place] I) with frequent and consecutive Premature ventri cular complexes Nonspecific ST abnormality Prolonged QT Abnormal ECG Confirmed by ELIAS FOOTE, TUTU ([id number]), movie editor KAI RODRIGUEZ ([id number]) on 12/24/2019 8:42:16 AM Referred By: LUZ MARINA Confirmed By:TUTU GRIFFIN MD
--- NOTE | 2019-12-19 10:35 | RAD_ITS ---
STUDY: X-RAY CHEST REASON FOR EXAM: Female, 64 years old. Sob, fatigue, muscle aches, recent pneumo TECHNIQUE: Single AP portable view of the chest. COMPARISON: Comparison is made with prior examination dated 11/03/2019. FINDINGS: EKG electrodes are seen. Hyperinflation. Progressive increased interstitial markings at the lung bases with areas of confluence worse in the posterior medial segment of the left lower lobe suggestive of a atelectasis and/or infiltrate superimposed on chronic scarring. There is no evidence of pneumothorax at this time. The previously seen subcutaneous emphysema overlying the left thoracic wall is not present at this time. Normal size heart. Normal mediastinum and tripp. Normal visualized pulmonary arteries. There is atherosclerotic calcification of the aortic arch with tortuosity. Normal visualized thoracic spine. Normal visualized ribs, clavicles, and shoulders. There is no demonstrated abnormality of the visualized soft tissue structures of the upper abdomen. RAD/Chest 1 View (Portable) IMPRESSION: Hyperinflation. Findings suggestive of scarring and possible atelectasis versus infiltrate at the lung bases worse in the posterior medial segment of the left lower lobe. No evidence of pneumothorax at this time. Electronically Signed: Roni Sanchez, at 10:57 EDT , Service support ,
[2019-12-19] MEDS: Ipratropium/Albuterol Sulfate 3 ML AMPUL.NEB INHALATION ×3 (10:44→19:23)
[2019-12-19] MEDS: MethylPREDNISolone 125 MG/2 ML Vial IV (10:52)
[2019-12-19 10:57] LABS: Absolute Lymphocyte Count 0.82 X10^3/uL (0.83-4.51); Basophil# 0.03 X10^3/uL; Basophil% 0.3 % (0-1); Eosinophil# 0.01 X10^3/uL; Eosinophils% 0.1 % (0-5); Hematocrit 37.2 % (37-47); Hemoglobin 12.9 g/dL (12.0-15.0); Lymphocyte # 0.82 X10^3/ul (4.0); Lymphocyte % 7.3 % (19-41); Mean Corp Hgb Conc 34.7 g/dL (32-36); Mean Corpuscular Hgb 31.6 pg (27.0-32.0); Mean Corpuscular Volume 91.2 fL (81-99); Monocyte# 1.19 X10^3/uL; Monocyte% 10.7 % (0-10); NRBC Flagged by Analyzer 0 % (0-5); Neutrophil # 9.04 X10^3/uL (2.7-7.7); Platelet Count 473 K/mm3 (150-450); RBC Distribution Width SD 40.4 fl (35.1-43.9); Red Blood Count 4.08 M/mm3 (4.2-5.4); White Blood Count 11.2 K/mm3 (4.4-11.0)
[2019-12-19 11:12] LABS: Anion Gap 8 (5-15); BUN 8 mg/dL (7-18); BUN/Creat Ratio 24.1 RATIO (10-20); Calcium,Total 8.4 mg/dL (8.5-10.1); Chloride 92 mmol/L (98-107); Creatinine, Serum 0.33 mg/dL (0.55-1.02); EST Glomerular Filtration Rate 210 mL/min (>60); Est Glom Filt Rate - Afr Amer 254 mL/min (>60); Estimated Creatinine Clearance 46.76 ml/min; Glucose 106 mg/dL (74-106); Potassium 3.5 mmol/L (3.5-5.1); Sodium Level 126 mmol/L (136-145)
[2019-12-19] MEDS: Ceftriaxone 1 GM/50 ML BAG IV (12:19)
--- NOTE | 2019-12-19 13:07 | HP.PCM_ITS ---
Problem List (1) Smoking greater than 30 pack years Status: Chronic (2) Tension pneumothorax Status: Resolved (3) Elevated troponin I level Status: Resolved (4) Acute respiratory failure with hypoxia Status: Acute (5) Allergic rhinitis Status: Chronic (6) Depression Status: Chronic (7) Chronic bronchitis Status: Chronic (8) Insomnia Status: Chronic (9) Emphysema of lung Status: Chronic (10) Hypertension Status: Chronic (11) Dysphagia Status: Chronic (12) COPD (chronic obstructive pulmonary disease) Status: Chronic Qualifiers: (13) Back pain Status: Resolved (14) Anxiety Status: Chronic History of Present Illness Date of Admission: 12/19/19 Chief Complaint: Shortness of breath, cough. The patient is a 64 year old F who presents emergency room due to shortness of breath and cough. Patient reports this began 2 days ago and has worsened since that time. She reports intermittent sputum production which is normal colored. Complains of fever, chills. She has not taken her temperature at home however states she has felt hot and cold. She denies exposure to sick contacts. Patient states she has been on continuous supplemental oxygen 3 L nasal cannula since recent discharge from the hospital October 2019 following tension pneumothorax and pneumonia. She states she has recently increased her home oxygen use to 5 L nasal cannula continuously. She denies chest pain. Patient established with pulmonary medicine following a discharge from the hospital. She is scheduled for pulmonary function test and pulmonary exercise test however she states she has not yet completed these. Patient states she quit smoking for a brief period of time following discharge from hospital however is currently smoking 1 pack/day. She states she has cut down on her alcohol use and drinks typically 2 drinks per day. She reports she went through alcohol withdrawal during recent hospitalization. She has a past medical history of COPD with chronic hypoxic respiratory failure, hypertension, tobacco dependence, alcohol dependence, depression, GERD. Past Medical History Past Medical History (Chronic Problems): Chronic Problems (Last Reviewed 11/18/19 @ 10:02 by Mihaela Austin RESISTANCE WELDING MACHINE OPERATOR, RESISTANCE WELDING MACHINE OPERATOR-C) Smoking greater than 30 pack years (Chronic) Allergic rhinitis (Chronic) Depression (Chronic) Chronic bronchitis (Chronic) Insomnia (Chronic) Emphysema of lung (Chronic) Hypertension (Chronic) Dysphagia (Chronic) COPD (chronic obstructive pulmonary disease) (Chronic) Anxiety (Chronic) Medical History: Medical History (Last Reviewed 11/18/19 @ 10:02 by Mihaela Austin RESISTANCE WELDING MACHINE OPERATOR, RESISTANCE WELDING MACHINE OPERATOR-C) Allergic rhinitis (Chronic) J30.9 Depression (Chronic) F32.9 Chronic bronchitis (Chronic) J42 Insomnia (Chronic) G47.00 Emphysema of lung (Chronic) J43.9 Hypertension (Chronic) I10 Dysphagia (Chronic) R13.10 COPD (chronic obstructive pulmonary disease) (Chronic) J44.9 Back pain (Acute) M54.9 Anxiety (Chronic) F41.9 Allergies bupropion [From Wellbutrin] Allergy (Severe, Verified 12/19/19 10:06) Unknown Home Medications: Ambulatory Orders Medication Instructions Recorded Citalopram Hydrobromide 20 mg PO DAILY 10/13/15 [Citalopram HBr] Omeprazole 40 mg PO DAILY 10/13/15 amlodipine 2.5 mg tablet 2.5 mg PO DAILY 11/12/18 cyclobenzaprine 10 mg tablet 10 mg PO TID PRN 11/12/18 gabapentin 300 mg capsule 300 mg PO BID 11/12/18 losartan 50 mg tablet 50 mg PO BID tab 11/12/18 Hydrocodone/Acetaminophen [[place] 1 ea PO Q12H PRN PRN 12/19/19 5-325 Tablet] Surgical History: Surgical History (Last Reviewed 11/18/19 @ 10:02 by Mihaela Austin RESISTANCE WELDING MACHINE OPERATOR, RESISTANCE WELDING MACHINE OPERATOR-C) No pertinent past surgical history Z78.9 Surgical History: no surgical history Psychiatric History: Anxiety, Depression MERCHANDISING EXECUTION MANAGER 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: No pertinent MERCHANDISING EXECUTION MANAGER history Lives: Spouse/ Significant Other Smoking Status: Current every day smoker Tobacco Use: Cigarettes - 1 PPD Alcohol: Heavy Drugs: None - *Family History Maternal Family History: Family History (Last Reviewed 12/19/19 @ 13:30 by Verenice Eduardo NP, RESISTANCE WELDING MACHINE OPERATOR-C) Other No pertinent family history History Items: Heart Disease, Hypertension Paternal Family History: Family History (Last Reviewed 12/19/19 @ 13:30 by Verenice Eduardo NP, RESISTANCE WELDING MACHINE OPERATOR-C) Other No pertinent family history History Items: Heart Disease Review of Systems Constitutional: Reports: Chills, Fever, Malaise HEENT: Denies: Head Aches, Sinus Congestion, Sinus Drainage Cardiovascular: Denies: Chest Pain, Edema, Light Headedness, Palpitations, Syncope Respiratory: Reports: Cough, Shortness of Breath, Sputum production, Wheezing Gastrointestinal: Denies: Abdominal Pain, Nausea, Vomiting Genitourinary: Denies: Dysuria Musculoskeletal: Denies: Joint Pain, Joint Tenderness Skin: Denies: Rash, Wounds Neurological: Denies: Numbness, Tingling, Focal weakness Psychiatric: Reports: Anxiety, Depression Hematologic/ Lymphatic: Denies: Easy Bruising, Easy Bleeding VTE Information - Inpt Only VTE Present on Admission: No VTE Mechan Device Prophylaxis: None VTE Pharm Prophylaxis ordered?: Yes - Physical Exam Vitals/I&O's: Vital Signs Temp Pulse Resp BP Pulse Ox 96.8 F L 87 29 H 123/83 H 96 12/19/19 10:39 12/19/19 10:54 12/19/19 10:54 12/19/19 10:54 12/19/19 10:54 Oxygen Flow Rate (L/min) 3 Oxygen Delivery Method Nasal Cannula Weight: 118 lb Body Mass Index (BMI) 19.0 Intake and Output for Last 24 Hours 12/17/19 12/18/19 12/19/19 23:59 23:59 23:59 Intake Total 550 / 550 Balance 550 / 550 General: Alert, Oriented x3, Cooperative, - - Appears older than stated age HEENT: Atraumatic, PERRLA, EOMI, Normocephalic Oral: Dry Mucosa Neck: Supple, No JVD, Negative Carotid Bruits Lungs: Diminished, Wheezes Cardiovascular: Regular rate, No murmurs Abdomen: Bowel Sounds Present, Soft, Non Tender, Non-Distended Extremities: No clubbing, No cyanosis Skin: No rashes, No breakdown Musculoskeletal: No Tenderness to Palpation of Joints or Extremities, Cachexia Neurological: Cranial nerves II-XII grossly intact, Neuro grossly intact Psych/Mental Status: Normal Affect, Appropriate Laboratory Results 12/19/19 10:35: COVID-19 (DEVAN) Pending 12/19/19 10:44: WBC 11.2 H, RBC 4.08 L, Hgb 12.9, Hct 37.2, MCV 91.2, MCH 31.6, MCHC 34.7, RDW Std Deviation 40.4, RDW Coeff of Oral 12.0, Plt Count 473 H, MPV 9.0, Immature Gran % (Auto) 0.600, Neut % (Auto) 81.0 H, Lymph % (Auto) 7.3 L, [place] % (Auto) 10.7 H, Eos % (Auto) 0.1, Baso % (Auto) 0.3, Absolute Neuts (auto) 9.0 H, Absolute Lymphs (auto) 0.82 L, Nucleated RBC % 0 12/19/19 10:44: Sodium 126 L, Potassium 3.5, Chloride 92 L, Carbon Dioxide 26.0, Anion Gap 8, BUN 8, Creatinine 0.33 L, Estim Creat Clear Calc 46.76, Est GFR (MDRD) Af Amer 254, Est GFR (MDRD) Non-Af 210, BUN/Creatinine Ratio 24.1 H, Glucose 106, Calcium 8.4 L 12/19/19 10:44: Lactic Acid 1.0 Current Medications Sodium Chloride () 500 mls @ 999 mls/hr IV .Q31M ONE Last Infusion: 12/19/19 13:01 Dose: Infused Documented by: Assessment/Plan All Active Problems (Last Reviewed 11/18/19 @ 10:02 by Mihaela Austin RESISTANCE WELDING MACHINE OPERATOR, RESISTANCE WELDING MACHINE OPERATOR- C) Acute respiratory failure with hypoxia (Acute) Back pain (Resolved) Elevated troponin I level (Resolved) Tension pneumothorax (Resolved) 1. Acute exacerbation of severe chronic COPD with chronic hypoxic respiratory failure-on baseline home O2 requirements. Continue supplement oxygen to maintain O2 at or above 90%. Walking pulse ox prior to discharge. IV Solu- Medrol. COVID negative. Obtain respiratory panel. Albuterol and DuoNeb aerosols. Oral azithromycin. Chest x-ray without obvious pneumonia. 2. Recent tension pneumothorax of the left lung and left lower lobe community- acquired pneumonia with Haemophilus influenza-chest x-ray without pneumothorax. Pneumonia appears resolved. 3. Right upper lobe pulmonary nodule-noted prior. Continue outpatient follow-up with pulmonary medicine. 4. Hypertension-stable, continue amlodipine, losartan. 5. Tobacco dependence-current pack per day smoker. Encouraged cessation. Nicotine replacement patch. 6. Alcohol dependence-states recent reduction in alcohol intake. CIWA. 7. Depression-continue citalopram. 8. GERD-continue PPI. DVT prophylaxis-Lovenox subcu This patient was seen by Verenice Eduardo, REAL-C under the supervision of Dr. Harden.
--- NOTE | 2019-12-19 13:09 | ED.DCSUM_ITS ---
- ER Visit Summary Date of Service: 12/19/19 Chief Complaint: Shortness of breath History of Present Illness: The patient is a [address] Garcia and Dr. Simpson. She has a history of COPD. She is typically on 3 L of home O2. She reports that she is increasing this to 5 L and is still very short of breath. This is worsened with exertion. It is unchanged with laying flat. Patient reports that she has been using her albuterol without relief. She has a chronic cough that is unchanged. She has had subjective fever and chills. She denies sick contacts. She has been wearing a mask. She also complains of generalized weakness. Physical Examination: Vitals: Stable. Afebrile. General: Well-nourished and well-developed. Head: Normocephalic atraumatic. Neck: Supple, no lymphadenopathy. No JVD. Nontender. Cardiovascular: Regular rate and rhythm. No murmurs. Respiratory: Moderate respiratory distress. She has bilateral wheezing with greatly decreased air movement. Abdominal: Soft, nontender, nondistended, normal bowel sounds. No guarding, rebound, or peritoneal signs. Back: Nontender. Extremities: Nontender, no edema. Skin: Normal color, no rash. Neurologic: Alert and oriented ?3. Cranial nerves II through XII are intact. Normal strength and sensation. Psych: Normal affect. Test Results: EKG is sinus at a rate of 99. There is a second-degree type I AV block with PVCs. CBC shows a white count of 11.2 with 473 platelets, 81 segm ented neutrophils, 7 lymphocytes, and 11 monocytes. Chem-7 shows a sodium 126, chloride 92, creatinine 0.33, calcium of 8.4. COVID-19 is negative. Clinical Impression(s) from Imaging Studies Chest X-Ray 12/19/19 10:35 IMPRESSION: Hyperinflation. Findings suggestive of scarring and possible atelectasis versus infiltrate at the lung bases worse in the posterior medial segment of the left lower lobe. No evidence of pneumothorax at this time. Electronically Signed: Roni Sanchez, at 10:57 EDT , Service support , Emergency Department Course and Treatment: Patient was treated albuterol Atrovent aerosols. She was given Solu-Medrol IV. She was given Rocephin and Zithromax IV. She continues to be quite dyspneic even with conversation. Treatment Plan: Patient was discussed with Dr. Harden. She will be admitted to the hospital for further evaluation and treatment. Disposition: Admitted in improved, but serious condition. Impression: 1. COPD exacerbation. 2. Hyponatremia. 3. Second-degree type I AV block. This note was generated with [employer] dictation software. It may contain incorrect words, spelling, and punctuation that were not noted in review of the chart prior to signing ED Disposition - Plan for ED Patient: Disposition: Acute Care Hospital [facility]
[2019-12-19] MEDS: 0.9% Normal Saline 1,000 ML 100 ML IV (15:04)
[2019-12-19] MEDS: oxyCODONE 5 MG Tablet PO (19:02)
[2019-12-19] MEDS: Acetaminophen 325 MG Tablet 650 MG PO (19:03)
[2019-12-19] MEDS: Nystatin/Triamcin Oint 1 APPLIC TOPICAL (21:05)
[2019-12-19] MEDS: Losartan Potassium 50 MG Tablet PO (21:05)
[2019-12-19] MEDS: Gabapentin 300 MG Capsule PO (21:05)
[2019-12-20] VITALS (9 sets, daily range): BP systolic 113–152; BP diastolic 69–87; PULSE 66–83; RESP 16–20; TEMP 36.4–36.8; O2SAT 84–98
[2019-12-20] MEDS: 0.9% Normal Saline 1,000 ML 100 ML IV (01:07)
[2019-12-20] MEDS: Ipratropium/Albuterol Sulfate 3 ML AMPUL.NEB INHALATION ×3 (01:12→11:19)
[2019-12-20] MEDS: guaiFENesin 10 ML UDC (200MG/10ML) 20 ML PO (06:06)
[2019-12-20] MEDS: oxyCODONE 5 MG Tablet PO (06:06)
[2019-12-20] MEDS: Acetaminophen 325 MG Tablet 650 MG PO (06:07)
[2019-12-20 07:44] LABS: Absolute Lymphocyte Count 0.45 X10^3/uL (0.83-4.51); Absolute Neutrophil Count 5.8 X10^3/uL (2.0-7.7); Basophil# 0.01 X10^3/uL; Basophil% 0.2 % (0-1); Hematocrit 37.7 % (37-47); Hemoglobin 12.5 g/dL (12.0-15.0); Lymphocyte # 0.45 X10^3/ul (4.0); Lymphocyte % 6.9 % (19-41); Mean Corp Hgb Conc 33.2 g/dL (32-36); Mean Corpuscular Hgb 31.5 pg (27.0-32.0); Mean Platelet Vol. 9.4 fl (6.2-12.0); Monocyte# 0.24 X10^3/uL; Monocyte% 3.7 % (0-10); NRBC Flagged by Analyzer 0 % (0-5); Neutrophil # 5.77 X10^3/uL (2.7-7.7); Neutrophil % 88.4 % (47-70); POSITIVE DIFFERENTIAL YES; POSITIVE MORPHOLOGY YES; Platelet Count 544 K/mm3 (150-450); RBC Distribution Width CV 12.1 % (11.6-14.6); RBC Distribution Width SD 42.6 fl (35.1-43.9); Red Blood Count 3.97 M/mm3 (4.2-5.4); White Blood Count 6.5 K/mm3 (4.4-11.0)
[2019-12-20 07:51] LABS: Differential Indicated SCAN CRITERIA MET
[2019-12-20 08:03] LABS: Anion Gap 7 (5-15); BUN 12 mg/dL (7-18); Calcium,Total 8.5 mg/dL (8.5-10.1); Chloride 100 mmol/L (98-107); Creatinine, Serum 0.54 mg/dL (0.55-1.02); EST Glomerular Filtration Rate 119 mL/min (>60); Est Glom Filt Rate - Afr Amer 144 mL/min (>60); Estimated Creatinine Clearance 43.19 ml/min; Glucose 144 mg/dL (74-106); Potassium 3.2 mmol/L (3.5-5.1); Sodium Level 132 mmol/L (136-145)
[2019-12-20 08:25] LABS: Differential Comment SCANNED; Platelet Estimate SLT INC (ADEQ)
[2019-12-20] MEDS: Losartan Potassium 50 MG Tablet PO (08:33)
[2019-12-20] MEDS: Azithromycin 250 MG Tablet 500 MG PO (08:33)
[2019-12-20] MEDS: Citalopram 20 MG Tablet PO (08:33)
[2019-12-20] MEDS: Enoxaparin 40 MG/0.4 ML Syringe SC (08:33)
[2019-12-20] MEDS: Pantoprazole Sodium 40 MG Tablet PO (08:34)
[2019-12-20] MEDS: Gabapentin 300 MG Capsule PO (08:34)
[2019-12-20] MEDS: amLODIPine 2.5 MG Tablet PO (08:34)
--- NOTE | 2019-12-20 11:04 | DCINST_ITS ---
You will use the following diet at home:: No restrictions Discharge Activity: Return to Normal Activity Call your doctor if you observe: Shortness of breath, Dizziness, Fainting spells, Chest pain Additional Instructions: Bring your home nebulizer to follow up appointment with Mihaela Austin NP. Use your home Ventolin inhaler 2 puffs 4 times daily scheduled for 1 week, then resume as needed use. Allergies/Adverse Reactions: Allergies bupropion [From Wellbutrin] Allergy (Severe, Verified 12/19/19 10:06) Unknown Medications to take at Discharge Citalopram Hydrobromide [Citalopram HBr] 20 mg PO DAILY 10/13/15 Omeprazole 40 mg PO DAILY 10/13/15 amlodipine 2.5 mg tablet 2.5 mg PO DAILY 11/12/18 cyclobenzaprine 10 mg tablet 10 mg PO TID PRN 11/12/18 gabapentin 300 mg capsule 300 mg PO BID 11/12/18 losartan 50 mg tablet 50 mg PO BID tab 11/12/18 Hydrocodone/Acetaminophen [[place] 5-325 Tablet] 1 ea PO Q12H PRN PRN 12/19/19 Albuterol Inhaler [Ventolin Hfa (SP)] 2 puff INHALATION Q4H PRN PRN #1 inhaler 12/20/19 Azithromycin [Zithromax] 500 mg PO Q24 3 Days #6 tab 12/20/19 Fluticasone/Umeclidin/Vilanter [Trelegy Ellipta 100-62.5-25] 1 ea IH DAILY #1 blst.w.dev 12/20/19 Nicotine [Nicoderm Cq] 21 mg TRANSDERM. DAILY #7 patch 12/20/19 Prednisone See Taper PO DAILY #24 tab 12/20/19 The following prescriptions were given: Nicotine [Nicoderm Cq] 21 mg TRANSDERM. DAILY #7 patch Transmission Status: Sent to [facility] #30 Prednisone See Taper PO DAILY #24 tab Transmission Status: Pending to [facility]30 Fluticasone/Umeclidin/Vilanter [Trelegy Ellipta 100-62.5-25] 1 ea IH DAILY #1 blst.w.dev Transmission Status: Pending to [facility]30 Albuterol Inhaler [Ventolin Hfa (SP)] 2 puff INHALATION Q4H PRN PRN #1 inhaler PRN Reason: Shortness Of Breath Transmission Status: Pending to [facility] #30 Azithromycin [Zithromax] 500 mg PO Q24 3 Days #6 tab Transmission Status: Pending to [facility]30 Primary Care Physician: May Garcia MD [Primary Care Provider] - Please follow up with your Primary Care Physician in: 1 Week Test Results: Test results from this visit will be discussed in further detail at your follow- up appointment, if applicable. Please Follow Up With: Mihaela Austin NP-C When: As scheduled 12/30/2019 Proposed Discharge Date: 12/20/19
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
--- NOTE | 2019-12-20 11:49 | NURSING ---
This nurse checked Ms. Drew's spo2 at rest with her 3L of oxygen via NC that she usually wears at home and it was 94%. When walking in [place] with her 3L of oxygen Via NC maintained her spo2 was 84% and pt was SOB and having labored breathing. Pt stated that normally she has to turn her oxygen up to 5L when she gets like this. This nurse Increased oxygen to 6L. Sp02 91% on 6L via NC while walking in [place].
--- NOTE | 2019-12-20 11:55 | CASEMGMT ---
SOCIAL WORK Informant: RADHA BOSWELL Reason for Consult: Financial assistance Met with patient in room. Introduced role and reason for referral. Patient thanking this worker for visit. Patient reports lives home with significant other and grandson. Patient stated difficulties with paying utilities. Patient has utilized [facility] [employer] in the past. Brochure for [employer] provided. Patient states will be following up with them on Sunday. Patient states utilities are turned on, but has bills overdue. Emotional support and active listening provided. Patient to discharge home this afternoon. No further questions or concerns. Plan: Home with resources provided. Vinnie Alegria, CHHA, SAFETY INTERN
--- NOTE | 2019-12-20 13:45 | DS.PCM_ITS ---
Discharge Date and Diagnosis Date of Admission: 12/19/19 Date of Discharge: 12/20/19 - Primary Discharge Diagnosis Acute Problems: 1. Acute exacerbation of severe chronic COPD with chronic hypoxic respiratory failure 2. Recent tension pneumothorax of the left lung and left lower lobe community- acquired pneumonia with Haemophilus influenza 3. Right upper lobe pulmonary nodule 4. Hypertension 5. Tobacco dependence 6. Alcohol dependence 7. Depression 8. GERD - Secondary Discharge Diagnosis Chronic Problems: Chronic Problems (Last Reviewed 11/18/19 @ 10:02 by Mihaela Austin MACHINE BRUSH MAKER, MACHINE BRUSH MAKER-C) Smoking greater than 30 pack years (Chronic) Allergic rhinitis (Chronic) Depression (Chronic) Chronic bronchitis (Chronic) Insomnia (Chronic) Emphysema of lung (Chronic) Hypertension (Chronic) Dysphagia (Chronic) COPD (chronic obstructive pulmonary disease) (Chronic) Anxiety (Chronic) Hospital Course and Treatment Imaging Results: Diagnostic Data Chest X-Ray 12/19/19 10:35 IMPRESSION: Hyperinflation. Findings suggestive of scarring and possible atelectasis versus infiltrate at the lung bases worse in the posterior medial segment of the left lower lobe. No evidence of pneumothorax at this time. Electronically Signed: Roni Sanchez, at 10:57 EDT , Service support , Operations: None Procedures: None Summary of Care Provided: The patient is a 64 year old F admitted 12/19/2019 due to shortness of breath and cough. 1. Acute exacerbation of severe chronic COPD with chronic hypoxic respiratory failure- IV Solu-Medrol during admission, discharged on prednisone taper. COVID negative. Respiratory panel negative. Oral azithromycin to complete course. Chest x-ray without obvious pneumonia. Patient states she ran out of her Trelegy inhaler 2 days ago. Given refill Rx at discharge. Patient stable on 3 L nasal cannula at rest which is her baseline requirements however requires 6 L with significant ambulation. New O2 Rx given at discharge. She is ambulatory in the home. Continue supplement oxygen to maintain O2 at or above 90%. Follow-up with pulmonary medicine as scheduled 12/30/2019. Asked patient to bring home nebulizer to follow-up appointment with pulmonary medicine as she is not sure it works. 2. Recent tension pneumothorax of the left lung and left lower lobe community- acquired pneumonia with Haemophilus influenza-chest x-ray without pneumothorax. Pneumonia appears resolved. 3. Right upper lobe pulmonary nodule-noted prior. Continue outpatient follow-up with pulmonary medicine. 4. Hypertension-stable, continue amlodipine, losartan. 5. Tobacco dependence-current pack per day smoker. Encouraged cessation. Nicotine replacement patch. 6. Alcohol dependence-states recent reduction in alcohol intake. 7. Depression-continue citalopram. 8. GERD-continue PPI. General: Alert, Oriented x3, Cooperative, - - Appears older than stated age HEENT: Atraumatic, PERRLA, EOMI, Normocephalic Oral: Dry Mucosa Neck: Supple, No JVD, Negative Carotid Bruits Lungs: Diminished, Wheezes- improved Cardiovascular: Regular rate, No murmurs Abdomen: Bowel Sounds Present, Soft, Non Tender, Non-Distended Extremities: No clubbing, No cyanosis Skin: No rashes, No breakdown Musculoskeletal: No Tenderness to Palpation of Joints or Extremities, Cachexia Neurological: Cranial nerves II-XII grossly intact, Neuro grossly intact Psych/Mental Status: Normal Affect, Appropriate Patient seen and examined prior to discharge. Physical assessment as noted above. Patient is stable for discharge with follow up recommendations as noted above. This patient was seen by JOSE Moore under the supervision of Dr. Harden. - Physical Exam Vitals/I&O's: Vital Signs Temp Pulse Resp BP Pulse Ox 97.6 F L 70 20 H 137/82 H 94 12/20/19 08:30 12/20/19 08:30 12/20/19 08:30 12/20/19 08:30 12/20/19 11:36 Oxygen Flow Rate (L/min) [ 3 AMBULATING on Room Air] Oxygen Flow Rate (L/min) [ 6 AMBULATION with Oxygen] Oxygen Flow Rate (L/min) [At 3 REST on Room Air] Oxygen Flow Rate (L/min) 3 Oxygen Delivery Method Nasal Cannula Weight: 109 lb Body Mass Index (BMI) 17.6 Intake and Output for Last 24 Hours 12/18/19 12/19/19 12/20/19 23:59 23:59 23:59 Intake Total 2375 / 2375 1206.66 / 1206.66 Balance 2375 / 2375 1206.66 / 1206.66 Microbiology Past 72 Hours 12/19/19 17:20 Sputum, Expectorated/Coughed Respiratory Culture - Preliminary Alpha Hemolytic Streptococcus 12/19/19 10:35 Mucosa - Nasopharyngeal Respiratory Panel (PCR) - Preliminary Laboratory Results 12/20/19 07:00: WBC 6.5, RBC 3.97 L, Hgb 12.5, Hct 37.7, MCV 95.0, MCH 31.5, MCHC 33.2, RDW Std Deviation 42.6, RDW Coeff of Oral 12.1, Plt Count 544 H, MPV 9.4, Immature Gran % (Auto) 0.800, Neut % (Auto) 88.4 H, Lymph % (Auto) 6.9 L, [place] % (Auto) 3.7, Eos % (Auto) 0.0, Baso % (Auto) 0.2, Absolute Neuts (auto) 5.8, Absolute Lymphs (auto) 0.45 L, Nucleated RBC % 0, Differential Comment SCANNED, Platelet Estimate SLT INC 12/20/19 07:00: Sodium 132 L, Potassium 3.2 L, Chloride 100, Carbon Dioxide 25.0, Anion Gap 7, BUN 12, Creatinine 0.54 L, Estim Creat Clear Calc 43.19, Est GFR (MDRD) Af Amer 144, Est GFR (MDRD) Non-Af 119, BUN/Creatinine Ratio 22.0 H, Glucose 144 H, Calcium 8.5 Current Medications Acetaminophen (Tylenol) 650 mg PO Q6H PRN PRN PRN Reason: Pain Score 1-10/Temp > 100.7 F Last Admin: 12/20/19 06:07 Dose: 650 mg Documented by: Albuterol Sulfate (Ventolin Aerosols) 2.5 mg INHALATION Q2H PRN PRN PRN Reason: SHORTNESS OF BREATH Albuterol/Ipratropium (Duoneb) 3 ml INHALATION Q4H.RT [facility] Last Admin: 12/20/19 11:19 Dose: 3 ml Documented by: Amlodipine Besylate (Norvasc) 2.5 mg PO DAILY [facility] Last Admin: 12/20/19 08:34 Dose: 2.5 mg Documented by: Azithromycin (Zithromax) 500 mg PO Q24 [facility] Last Admin: 12/20/19 08:33 Dose: 500 mg Documented by: Citalopram Hydrobromide (Celexa) 20 mg PO DAILY [facility] Last Admin: 12/20/19 08:33 Dose: 20 mg Documented by: Enoxaparin Sodium (Lovenox) 40 mg SC DAILY [facility] Last Admin: 12/20/19 08:33 Dose: 40 mg Documented by: Gabapentin (Neurontin) 300 mg PO BID [facility] Last Admin: 12/20/19 08:34 Dose: 300 mg Documented by: Guaifenesin (Robitussin) 20 ml PO Q4H PRN PRN PRN Reason: COUGH Last Admin: 12/20/19 06:06 Dose: 20 ml Documented by: Sodium Chloride () 500 mls @ 999 mls/hr IV .Q31M ONE Last Infusion: 12/19/19 13:01 Dose: Infused Documented by: Sodium Chloride () 1,000 mls @ 100 mls/hr IV .Q10H [facility] Last Infusion: 12/20/19 11:05 Dose: Infused Documented by: Losartan Potassium (Cozaar) 50 mg PO BID [facility] Last Admin: 12/20/19 08:33 Dose: 50 mg Documented by: Methylprednisolone (Solu-Medrol) 40 mg IV Q8 [facility] Last Admin: 12/20/19 06:06 Dose: 40 mg Documented by: Nicotine (Nicoderm Cq (Pbkc)) 21 mg TRANSDERM. DAILY [facility] Last Admin: 12/20/19 08:33 Dose: 21 mg Documented by: Nutritional Formula (Lactose Free) (Ensure Enlive) 120 ml PO 4X/DAY [facility] Last Admin: 12/20/19 08:31 Dose: Not Given Documented by: Nystatin/Triamcinolone Acetonide (Mycolog) 1 applic TOPICAL BID [facility]; Protocol Last Admin: 12/20/19 08:32 Dose: Not Given Documented by: Ondansetron HCl (Zofran) 4 mg IV Q8H PRN PRN PRN Reason: NAUSEA/VOMITING Oxycodone HCl (Oxyir) 5 mg PO Q6H PRN PRN PRN Reason: Pain Score 6-10/10 Last Admin: 12/20/19 06:06 Dose: 5 mg Documented by: Pantoprazole Sodium (Protonix) 40 mg PO DAILY [facility] Last Admin: 12/20/19 08:34 Dose: 40 mg Documented by: Discharge Diet: No Restrictions Discharge Activity: Return to Normal Activity Call your doctor if you observe: Shortness of breath, Dizziness, Fainting spells, Chest pain Home Medications: Medications to take at Discharge Citalopram Hydrobromide [Citalopram HBr] 20 mg PO DAILY 10/13/15 Omeprazole 40 mg PO DAILY 10/13/15 amlodipine 2.5 mg tablet 2.5 mg PO DAILY 11/12/18 cyclobenzaprine 10 mg tablet 10 mg PO TID PRN 11/12/18 gabapentin 300 mg capsule 300 mg PO BID 11/12/18 losartan 50 mg tablet 50 mg PO BID tab 11/12/18 Hydrocodone/Acetaminophen [Iselin 5-325 Tablet] 1 ea PO Q12H PRN PRN 12/19/19 Albuterol Inhaler [Ventolin Hfa (SP)] 2 puff INHALATION Q4H PRN PRN #1 inhaler 12/20/19 Azithromycin [Zithromax] 500 mg PO Q24 3 Days #6 tab 12/20/19 Fluticasone/Umeclidin/Vilanter [Trelegy Ellipta 100-62.5-25] 1 ea IH DAILY #1 blst.w.dev 12/20/19 Nicotine [Nicoderm Cq] 21 mg TRANSDERM. DAILY #7 patch 12/20/19 Prednisone See Taper PO DAILY #24 tab 12/20/19 Following Prescriptions Were Given to Patient: Nicotine [Nicoderm Cq] 21 mg TRANSDERM. DAILY #7 patch Transmission Status: Received by [facility] Prednisone See Taper PO DAILY #24 tab Transmission Status: Received by [facility] Fluticasone/Umeclidin/Vilanter [Trelegy Ellipta 100-62.5-25] 1 ea IH DAILY #1 blst.w.dev Transmission Status: Received by [facility] Albuterol Inhaler [Ventolin Hfa (SP)] 2 puff INHALATION Q4H PRN PRN #1 inhaler PRN Reason: Shortness Of Breath Transmission Status: Received by [facility] Azithromycin [Zithromax] 500 mg PO Q24 3 Days #6 tab Transmission Status: Received by [facility] Primary Care Physician: May Garcia MD [Primary Care Provider] - Please follow up with your Primary Care Physician in: 1 Week Please Follow Up With: Mihaela Austin NP-C When: As scheduled 12/30/2019 Disposition: Home Minutes spent on discharge:: 35 Patient Condition:: Stable Medical Necessity - Tobacco Use Smoking Status: Current some day smoker Tobacco Use: Cigarettes Meaningful Use Info Meaningful Use Diagnoses (Choose all that apply): None applicable
--- NOTE | 2019-12-22 14:47 | CASEMGMT ---
RADHA BOSWELL DC PHONE CALL DC DATE: 12/20/2019 DC Disposition: Home Diagnosis on Discharge: COPD LACE/STRATA: 12/26 Prescriptions obtained: no -Intro role of CM to patient via phone. Patient states she understands the instructions, however has not picked up prescriptions. She states her granddaughter may pick them up today, but she needs to get goldberg from pharmacy. RADHA BOSWELL discussed contacting [facility] [employer] if she is unable to afford. Reviewed prescriptions and let her know it was very important to get her antibiotic and steroid promptly. She has contacted [facility] before and did not need assistance with this. Pt states her care was excellent and no care improvement suggestions were given. Britt HERRERA RN ACM
== END 2019-12-20 13:57 | disposition home or self-care (01) | DRG 191 ==
LOC: ED 13:31 → PCU 08-12 14:59
PROVIDERS: Nurse Practitioner Family; Admitting Provider Internal Medicine; Emergency Provider Emergency Medicine; PCP Internal Medicine; Visit Provider Internal Medicine
DX: J43.9 Emphysema, unspecified (principal); J96.11 Chronic respiratory failure with hypoxia; E87.1 Hypo-osmolality and hyponatremia; E44.0 Moderate protein-calorie malnutrition; Z68.1 Body mass index [BMI] 19.9 or less, adult; I10 Essential (primary) hypertension; R13.10 Dysphagia, unspecified; K21.9 Gastro-esophageal reflux disease without esophagitis; F32.9 Major depressive disorder, single episode, unspecified; F41.9 Anxiety disorder, unspecified; F17.210 Nicotine dependence, cigarettes, uncomplicated; Z79.899 Other long term (current) drug therapy; Z99.81 Dependence on supplemental oxygen; Z87.01 Personal history of pneumonia (recurrent); F10.20 Alcohol dependence, uncomplicated
CPT/HCPCS: 36415; 71045; 80048; 83605; 85025; 87040; 87070; 87077; 87186; 87205; 87633; 87635; 93005; 94640; 97802; 99218; 99285; 99406; J7030; J7040; A4216; G0378; U0003

== ENCOUNTER → 2019-12-23 10:12 | Outpatient (CLI) | payer MEDICARE, MEDICAID, SELFPAY ==
[2019-11-03 12:08] VITALS: BMI 18.9
[2019-12-19 14:14] VITALS: BMI 17.6
--- NOTE | 2019-12-23 14:05 | PFTCOMP ---
COMPLETE PULMONARY FUNCTION TEST INTERPRETATION Brief HPI: Patient is a 64 year old female, currently under the care of Mihaela Austin, who presents to [facility] for complete pulmonary function tests secondary to diagnosis of COPD. Respiratory therapist reports good effort and reproducible results. However, patient was unable to exhale for 6 seconds, likely underestimating FVC. Interpretation: Forced expiration spirometry shows a moderately severe large airways obstructive ventilatory defect with an FEV1 of 56% predicted. There is no significant bronchodilator response by strict ATS criteria. Spirograms are of poor quality and do not plateau. The respiratory flow volume loop shows decreased expiratory flow rates at all lung volumes consistent with airway obstruction. Lung volumes by body plethysmography show an increased total lung capacity at 8.25 L, 157% predicted. FRC and RV are elevated out of proportion. Lung volume measurements are consistent with hyperinflation and air-trapping. Diffusion capacity by carbon monoxide was unable to be completed. The airway resistance is normal. No previous pulmonary function tests were available for review. Impression: Irreversible moderately severe large airways obstructive ventilatory defect. FVC is likely underestimated secondary to decreased exhalation.
== END ==
PROVIDERS: PCP Internal Medicine; Referring Provider Nurse Practitioner Acute Care; Visit Provider Nurse Practitioner Acute Care
DX: J44.9 Chronic obstructive pulmonary disease, unspecified (principal)
CPT/HCPCS: 94060; 94726; 94729

== ENCOUNTER → 2019-12-25 12:27 | Outpatient (CLI) | payer MEDICARE, MEDICAID, SELFPAY ==
[2019-11-03 12:08] VITALS: BMI 18.9
[2019-12-19 14:14] VITALS: BMI 17.6
--- NOTE | 2019-12-25 13:07 | RAD_ITS ---
STUDY: X-RAY - THORACIC SPINE REASON FOR EXAM: Female, 64 years old. FELL OFF ROOF A YEAR AGO, CONTINUED PAIN NECK/THORACIC REGION TO RT SIDE, LOWER BACK PAIN TECHNIQUE: 3 view(s) of the thoracic spine were obtained. COMPARISON: None. FINDINGS: Normal kyphosis of the thoracic spine. There is minor dextro scoliosis or torticollis secondary to muscle spasm. No evidence for acute fracture or subluxation. Disc space heights are well-maintained however there is mild multilevel endplate spurring The soft tissue structures are unremarkable. RAD/Thoracic Spine 3 Views IMPRESSION: Minor scoliosis and degenerative change. No evidence for acute fracture. Electronically Signed: Omar Irby MD at 22:35 EDT , Service support ,
--- NOTE | 2019-12-25 13:07 | RAD_ITS ---
STUDY: X-RAY - LUMBAR SPINE REASON FOR EXAM: Female, 64 years old. FELL OFF ROOF A YEAR AGO, CONTINUED PAIN NECK/THORACIC REGION TO RT SIDE, LOWER BACK PAIN TECHNIQUE: 4 view(s) of the lumbar spine were obtained. COMPARISON: None FINDINGS: Normal lumbar lordosis. There is no substantial scoliosis. There is a normal alignment of the vertebrae. There is multilevel endplate spondylosis of the lumbar vertebrae. There is multi-level degenerative disc disease with multi-level disc space narrowing. There is no demonstrated fracture. The soft tissue structures are unremarkable. RAD/L/S Spine Min 4 Views IMPRESSION: Degenerative changes of the spine, as detailed above. Electronically Signed: Gerald Pacheco DO at 1:16 EDT Tel , Service support ,
[2019-12-25 13:08] VITALS: PULSE 83; PULSE 87; PULSE 89; PULSE 90; PULSE 91; O2SAT 89; O2SAT 90; O2SAT 93; O2SAT 94
--- NOTE | 2019-12-25 13:08 | RAD_ITS ---
STUDY: X-RAY - CERVICAL SPINE REASON FOR EXAM: Female, 64 years old. FELL OFF ROOF A YEAR AGO, CONTINUED PAIN NECK/THORACIC REGION TO RT SIDE, LOWER BACK PAIN TECHNIQUE: 5 view(s) of the cervical spine were obtained. COMPARISON: None FINDINGS: Normal anterior atlantoaxial articulation. Normal odontoid process. Normal cervical lordosis. There is multi-level endplate spondylosis. There is multi-level degenerative disc disease with multilevel disc space narrowing. No abnormal translation with flexion or extension The soft tissue structures are unremarkable. RAD/Cerv Spine 4 or 5 Views IMPRESSION: Degenerative disc disease Electronically Signed: Gerald Pacheco DO at 1:16 EDT Tel , Service support ,
--- NOTE | 2019-12-25 15:49 | WT_ITS ---
PSN 6 Minute Walk Test - 6 Minute Walk Test 6 Minute Walk Test: 6 Minute Walk Test PSN:6-Minute Walk Test Start: 12/25/19 13:07 Freq: Status: Active Protocol: RESP.6MINW Document 12/25/19 13:08 [facility] (Rec: 12/25/19 13:12 [facility] [id number]) 6 Minute Walk Test Date Performed 12/25/19 Time Performed 12:30 Height 5 ft 6 in Weight: 48.988 kg Weight in Pounds 108.[address]: Mihaela Austin SENIOR SALES CONSULTANT Assistive device used: None Pre-test Oxygen Delivery Method Room Air Pulse Ox (%) 94 Pulse Rate (60-100 beats/min) 83 Dyspnea Sharon Scale (0-10) 2 1st minute Oxygen Delivery Method Room Air Pulse Ox (%) 93 Pulse Rate (60-100 beats/min) 87 Dyspnea Sharon Scale (0-10) 2 Number of Rests Taken 0 2nd minute Oxygen Delivery Method Room Air Pulse Ox (%) 90 Pulse Rate (60-100 beats/min) 90 Dyspnea Sharon Scale (0-10) 2 Number of Rests Taken 0 3rd minute Oxygen Delivery Method Room Air Pulse Ox (%) 89 Pulse Rate (60-100 beats/min) 91 Dyspnea Sharon Scale (0-10) 3 Number of Rests Taken 0 Reported Symptoms Increased Work of Breathing 4th minute Oxygen Delivery Method Room Air Pulse Ox (%) 90 Pulse Rate (60-100 beats/min) 89 Dyspnea Sharon Scale (0-10) 3 Number of Rests Taken 0 Reported Symptoms Increased Work of Breathing 5th minute Oxygen Delivery Method Room Air Pulse Ox (%) 89 Pulse Rate (60-100 beats/min) 90 Dyspnea Sharon Scale (0-10) 4 Number of Rests Taken 0 Reported Symptoms Increased Work of Breathing 6th minute Oxygen Delivery Method Room Air Pulse Ox (%) 89 Pulse Rate (60-100 beats/min) 91 Dyspnea Sharon Scale (0-10) 5 Number of Rests Taken 0 Reported Symptoms Increased Work of Breathing Post-test Oxygen Delivery Method Room Air Pulse Ox (%) 93 Pulse Rate (60-100 beats/min) 83 Dyspnea Sharon Scale (0-10) 2 Full Laps Walked 14 Partial Lap, Number of Tiles Walked 18 Total Distance Walked (ft) 844 - Interpretation Interpretation: The patient was able to ambulate 844 feet over the course of 6 minutes on room air with no assistive devices or breaks. The patient did desaturate as low as 89% and no significant tachycardia was noted. Patient did state that she was on prednisone at the time of this testing. These findings are consistent with a respiratory limitation exercise tolerance. - Recommendations Recommendations: No supplemental oxygen is indicated at this time.
== END ==
PROVIDERS: PCP Internal Medicine; Referring Provider Nurse Practitioner Acute Care
DX: J44.9 Chronic obstructive pulmonary disease, unspecified (principal); M47.817 Spondylosis without myelopathy or radiculopathy, lumbosacral region; M47.812 Spondylosis without myelopathy or radiculopathy, cervical region
CPT/HCPCS: 72050; 72072; 72110; 94618

== ENCOUNTER 2020-10-25 17:08 | Inpatient (IN) | payer MEDICARE, MEDICAID, SELFPAY ==
[2020-10-25] VITALS (10 sets, daily range): BP systolic 132–158; BP diastolic 76–109; PULSE 92–107; RESP 20–36; TEMP 35.6–37.1; O2SAT 88–100; BMI 16.3; BMI 16.2
--- NOTE | 2020-10-25 17:52 | EKG12_ITS ---
Test Reason : SOB Blood Pressure : / mmHG Vent. Rate : 097 BPM Atrial Rate : 097 BPM P-R Int : 150 ms QRS Dur : 090 ms QT Int : 380 ms P-R-T Axes : 072 065 077 degrees QTc Int : 482 ms Sinus rhythm with occasional Premature ventricular complexes Otherwise normal ECG Confirmed by KRYSTAL FOOTE, DIONICIO ([id number]), makeup editor KAI RODRIGUEZ ([id number]) on 10/28/2020 12:48:39 PM Referred By: PHILLIP Confirmed By:DIONICIO RICE MD
[2020-10-25 18:09] LABS: Absolute Lymphocyte Count 1.18 X10^3/uL (0.83-4.51); Absolute Neutrophil Count 5.9 X10^3/uL (2.0-7.7); Basophil# 0.03 X10^3/uL; Basophil% 0.4 % (0-1); Eosinophil# 0.39 X10^3/uL; Eosinophils% 4.7 % (0-5); Hemoglobin 14.5 g/dL (12.0-15.0); Lymphocyte # 1.18 X10^3/ul (0.83-4.51); Lymphocyte % 14.3 % (19-41); Mean Corp Hgb Conc 34.5 g/dL (32-36); Mean Corpuscular Hgb 30.2 pg (27.0-32.0); Mean Corpuscular Volume 87.5 fL (81-99); Mean Platelet Vol. 9.6 fl (6.2-12.0); Monocyte# 0.69 X10^3/uL; Monocyte% 8.4 % (0-10); NRBC Flagged by Analyzer 0 % (0-5); Neutrophil # 5.93 X10^3/uL (2.7-7.7); Neutrophil % 71.7 % (47-70); Platelet Count 505 K/mm3 (150-450); RBC Distribution Width CV 12.1 % (11.6-14.6); RBC Distribution Width SD 39.1 fl (35.1-43.9); White Blood Count 8.3 K/mm3 (4.4-11.0)
--- NOTE | 2020-10-25 18:10 | RAD_ITS ---
HISTORY: sob EXAMINATION/TECHNIQUE: XR Chest 1 View: Portable upright AP chest x-ray COMPARISON: 12/19/19 FINDINGS: LINES/DEVICES: None. LUNGS: Stable apical pleural scarring with diffuse coarsening of interstitial markings. No consolidation or pleural effusion. Lungs hyperinflated. MEDIASTINUM AND CARDIOVASCULAR STRUCTURES: Cardiac silhouette not enlarged. Central airways and mediastinal contour are unremarkable. BONES AND SOFT TISSUES: No acute bony abnormalities. RAD/Chest 1 View (Portable) IMPRESSION: No radiographic evidence of acute cardiopulmonary disease. COPD. at 1830 Reported and signed by: Himanshu Hunter MD Electronically Signed: Himanshu Hunter MD at 18:29 EDT Tel , Service support ,
[2020-10-25] MEDS: Albuterol 2.5 MG/3 ML VIAL.NEB. INHALATION ×2 (18:17→18:22)
[2020-10-25] MEDS: Ipratropium/Albuterol Sulfate 3 ML AMPUL.NEB INHALATION (18:17)
[2020-10-25 18:26] LABS: Troponin-I HS 9.3 pg/mL (3.0-53.7)
[2020-10-25 18:32] LABS: Lactic Acid 0.8 mmol/L (0.4-1.9)
[2020-10-25] MEDS: MethylPREDNISolone 125 MG/2 ML Vial IV (18:33)
--- NOTE | 2020-10-25 20:08 | EDS_ITS ---
HPI History of Present Illness Chief Complaint: Shortness of Breath Narrative Narrative: Patient presents to the emergency department with shortness of breath, this is been ongoing for the past few days but much worse today. She is usually on oxygen at home but only at night, she has been needing it to wear it during the day. She has no fever or chills she has no change in her cough or sputum production. No DVT or PE risk factors. No back pain or tearing sensation no chest pain or pleuritic component. PFSH PFSH Medical History Allergic rhinitis Anxiety Back pain Chronic bronchitis COPD (chronic obstructive pulmonary disease) Depression Dysphagia Emphysema of lung Hypertension Insomnia Home Medications citalopram 20 mg PO DAILY 10/13/15 [History Last Taken 12/18/19] omeprazole 40 mg PO DAILY 10/13/15 [History Last Taken 12/18/19] amlodipine 2.5 mg tablet 2.5 mg PO DAILY 11/12/18 [History Last Taken 12/18/19] cyclobenzaprine 10 mg tablet 10 mg PO TID PRN 11/12/18 [History Last Taken Unknown] gabapentin 300 mg capsule 300 mg PO BID 11/12/18 [History Last Taken 12/19/19] losartan 50 mg tablet 50 mg PO BID tab 11/12/18 [History Last Taken 12/18/19] hydrocodone-acetaminophen 1 ea PO Q12H PRN PRN 12/19/19 [History Last Taken Unknown] albuterol sulfate 2 puff INHALATION Q4H PRN PRN #1 inhaler 12/20/19 [Rx Last Taken Unknown] zicoirbsyry-blsaqtfyt-mkvhulam 1 ea IH DAILY #1 blst.w.dev 12/20/19 [Rx Last Taken Unknown] nicotine 21 mg TRANSDERM. DAILY #7 patch 12/20/19 [Rx Last Taken Unknown] prednisone See Taper PO DAILY #24 tab 12/20/19 [Rx Last Taken Unknown] Allergy/AdvReac Type Severity Reaction Status Date / Time bupropion [From Wellbutrin] Allergy Severe Unknown Verified 12/30/19 10:41 Family History (Reviewed 12/30/19 @ 10:52 by Mihaela Austin DIRECTOR OF MOBILE MARKETING, DIRECTOR OF MOBILE MARKETING-C) Other No pertinent family history Surgical History No pertinent past surgical history Social History (Updated 12/30/19 @ 12:02 by Mihaela Austin DIRECTOR OF MOBILE MARKETING, DIRECTOR OF MOBILE MARKETING-C) Smoking Status: Current every day smoker tobacco type: cigarettes ROS ROS ED ROS Narrative Past medical history: Reviewed Medications: Reviewed Social history: Noncontributory Review of systems: All systems negative except as indicated General: No fever Eyes: No visual changes ENT: No upper airway congestion, normal voice Neck: No neck pain Cardiovascular: No chest pain Respiratory: Shortness of breath as in HPI Gastrointestinal: No abdominal pain, nausea vomiting or diarrhea Genitourinary: No dysuria Musculoskeletal: Denies myalgias no difficulty with ambulation Skin: No rash Neurological: No memory loss, confusion or any focal weakness Psych: No recent behavioral changes Hematologic: No easy bleeding or easy bruising EXAM Physical Exam Narrative Exam Narrative: Physical exam General: Patient appears in some distress Head: Normocephalic, Atraumatic Eyes: Conjunctiva not pale ENT: Moist mucous membranes Neck: Supple, Nontender, No lymphadenopathy Cardiovascular: Regular rate, Regular rhythm Respiratory: Diminished breath sounds with tachypnea and scant wheezing. She does look like she is in some distress Abdomen: Soft, Nontender, Nondistended Back: Nontender, Normal Inspection. Negative for: CVA tenderness Extremities: Nontender, No edema Skin: Normal color, No rash Neurological: Alert, Normal Strength, Normal Sensation Psychological: Normal affect Const Vital Signs: 10/25/20 17:09 10/25/20 17:12 10/25/20 18:12 Temperature 96.0 F L 96.0 F L 98.7 F Temperature Source Temporal Temporal Temporal Pulse Rate 102 H 107 H 93 Respiratory Rate 28 H 28 H 27 H Respiratory Effort Respiratory Depth Respiratory Pattern Blood Pressure 140/109 H 140/109 H 132/87 H Blood Pressure Mean 119 119 102 Pulse Ox 88 100 100 Oxygen Delivery Method Room Air Nasal Cannula Nasal Cannula Oxygen Flow Rate (L/min) 6 6 10/25/20 18:17 10/25/20 18:34 10/25/20 19:00 Temperature 98.7 F Temperature Source Temporal Pulse Rate 94 93 Respiratory Rate 36 H 23 H Respiratory Effort Short of Breath Labored Short of Breath Respiratory Depth Shallow Shallow Respiratory Pattern Tachypnea Tachypnea Blood Pressure 147/87 H Blood Pressure Mean 107 Pulse Ox 100 100 Oxygen Delivery Method Nasal Cannula Nasal Cannula Nasal Cannula Oxygen Flow Rate (L/min) 6 6 6 10/25/20 20:17 Temperature Temperature Source Pulse Rate 100 Respiratory Rate 20 H Respiratory Effort Respiratory Depth Respiratory Pattern Blood Pressure 153/90 H Blood Pressure Mean 111 Pulse Ox 99 Oxygen Delivery Method Nasal Cannula Oxygen Flow Rate (L/min) 6 MDM MDM MDM Narrative Medical decision making narrative: Patient is given steroids and nebulizers she did improve but is still oxygen dependent more so than her baseline I will admit her for further work-up. There is no evidence of pneumonia, there is no change in sputum or cough therefore she does not meet criteria for antibiotics. Lab Data Labs: Laboratory Results - last 24 hr 10/25/20 10/25/20 10/25/20 17:30 17:30 17:30 WBC 8.3 RBC 4.80 Hgb 14.5 Hct 42.0 MCV 87.5 MCH 30.2 MCHC 34.5 RDW Std Deviation 39.1 RDW Coeff of Oral 12.1 Plt Count 505 H MPV 9.6 Immature Gran % (Auto) 0.500 Neut % (Auto) 71.7 H Lymph % (Auto) 14.3 L [place] % (Auto) 8.4 Eos % (Auto) 4.7 Baso % (Auto) 0.4 Absolute Neuts (auto) 5.9 Absolute Lymphs (auto) 1.18 Nucleated RBC % 0 Lactic Acid 0.8 Troponin I High Sens 9.3 Radiography Diagnostic Testing: Radiology Impression Chest X-Ray 10/25/20 18:10 IMPRESSION: No radiographic evidence of acute cardiopulmonary disease. COPD. at 1830 Reported and signed by: Himanshu Hunter MD Electronically Signed: Himanshu Hunter MD at 18:29 EDT Tel , Service support , X-ray read by me and the radiologist does not show any pneumonia Discharge Plan Triage Chief Complaint: Shortness of Breath ED Provider: Brenden Morales Dx/Rx/DC Orders Prescriptions: No Action cyclobenzaprine 10 mg tablet 10 mg PO TID PRN (Reason: muscle spasm) RF: 0 gabapentin 300 mg capsule 300 mg PO BID RF: 0 losartan [Cozaar] 50 mg tablet 50 mg PO BID RF: 0 amlodipine [Norvasc] 2.5 mg tablet 2.5 mg PO DAILY RF: 0 omeprazole 40 MG capsule,delayed release(DR/EC) 40 mg PO DAILY RF: 0 citalopram 20 MG tablet 20 mg PO DAILY RF: 0 hydrocodone-acetaminophen 1 EACH tablet 1 ea PO Q12H PRN PRN (Reason: Pain Or Fever) RF: 0 nicotine 21 MG patch 21 mg TRANSDERM. DAILY Qty: 7 RF: 0 prednisone 20 MG tablet See Taper mg PO DAILY Qty: 24 RF: 0 tncxnzoxabm-jrzlzbarm-auvxyppn 1 EACH blister with device 1 ea IH DAILY Qty: 1 RF: 0 albuterol sulfate 1 INHALER inhaler 2 puff inhalation Q4H PRN PRN (Reason: Shortness Of Breath) Qty: 1 RF: 0 Primary Care Provider: May Garcia
--- NOTE | 2020-10-25 21:01 | HP.PCM_ITS ---
HPI - General HPI Narrative SPENCER MENDES, is a 65 F who presents to the emergency room with increasing shortness of breath over the past 2 days. Patient has a significant past medical history of COPD and wears oxygen at bedtime however the past 3 days she has required additional oxygen and has been unable to complete full sentences a nd speaking. On 6 L nasal cannula here in the emergency room she is able to maintain an oxygen saturation of 99% but continues to have difficulty completing full sentences. Patient denies chest pain and/or nausea and/or vomiting at this time. She will be admitted to general medical floor and treated for her COPD exacerbation. Patient does continue to smoke but states she is in the process of quitting. [facility] Medical History (Updated 10/25/20 @ 20:[address] Brenden Morales MD) Allergic rhinitis Anxiety Back pain Chronic bronchitis COPD (chronic obstructive pulmonary disease) Depression Dysphagia Emphysema of lung Hypertension Insomnia Home Medications citalopram 20 mg PO DAILY 10/13/15 [History Last Taken 10/24/20] omeprazole 40 mg PO DAILY 10/13/15 [History Last Taken 10/24/20] amlodipine 2.5 mg tablet 2.5 mg PO DAILY 11/12/18 [History Last Taken 10/24/20] cyclobenzaprine 10 mg tablet 10 mg PO TID PRN 11/12/18 [History Last Taken 10/24/20] gabapentin 300 mg capsule 300 mg PO BID 11/12/18 [History Last Taken 10/24/20] hydrocodone-acetaminophen 1 ea PO Q12H PRN PRN 12/19/19 [History Last Taken 10/24/20] albuterol sulfate 2 puff INHALATION Q4H PRN PRN #1 inhaler 12/20/19 [Rx Last Taken Unknown] uoehkradfgd-xmbyexvgt-qdhphxwy 1 ea IH DAILY #1 blst.w.dev 12/20/19 [Rx Last Taken 10/24/20] atorvastatin 10 mg PO QHS 10/25/20 [History Last Taken 10/24/20] ibuprofen 800 mg PO TID 10/25/20 [History Last Taken 10/24/20] Allergy/AdvReac Type Severity Reaction Status Date / Time bupropion [From Wellbutrin] Allergy Severe Unknown Verified 12/30/19 10:41 Family History (Reviewed 12/30/19 @ 10:52 by Mihaela Austin CLINICAL RESEARCH TECHNICIAN, CLINICAL RESEARCH TECHNICIAN-C) Other No pertinent family history Surgical History No pertinent past surgical history Social History (Updated 12/30/19 @ 12:02 by Mihaela Austin NP, CLINICAL RESEARCH TECHNICIAN-C) Smoking Status: Current every day smoker tobacco type: cigarettes ROS Constitutional Constitutional: Denies chills or fatigue Eyes Eyes: Denies change in vision ENT HEENT: Denies abnormal hearing Cardiovascular Cardiovascular: Denies chest pain Respiratory/Chest Respiratory/Chest: Reports cough and shortness of breath at rest Gastrointestinal Gastrointestinal: Denies constipation Genitourinary Genitourinary: Denies hematuria Musculoskeletal Musculoskeletal: Denies extremity pain Integumentary Integumentary: Denies dry skin Neurologic Neurologic: Denies abnormal gait Psychiatric Psychiatric: Reports anxiety Vital Signs Vital Signs Vital Signs: 10/25/20 17:09 10/25/20 17:12 10/25/20 18:12 Temperature 96.0 F L 96.0 F L 98.7 F Temperature Source Temporal Temporal Temporal Pulse Rate 102 H 107 H 93 Respiratory Rate 28 H 28 H 27 H Respiratory Effort Respiratory Depth Respiratory Pattern Blood Pressure 140/109 H 140/109 H 132/87 H Blood Pressure Mean 119 119 102 Pulse Ox 88 100 100 Oxygen Delivery Method Room Air Nasal Cannula Nasal Cannula Oxygen Flow Rate (L/min) 6 6 10/25/20 18:17 10/25/20 18:34 10/25/20 19:00 Temperature 98.7 F Temperature Source Temporal Pulse Rate 94 93 Respiratory Rate 36 H 23 H Respiratory Effort Short of Breath Labored Short of Breath Respiratory Depth Shallow Shallow Respiratory Pattern Tachypnea Tachypnea Blood Pressure 147/87 H Blood Pressure Mean 107 Pulse Ox 100 100 Oxygen Delivery Method Nasal Cannula Nasal Cannula Nasal Cannula Oxygen Flow Rate (L/min) 6 6 6 10/25/20 20:17 10/25/20 20:54 Temperature 98.5 F Temperature Source Temporal Pulse Rate 100 97 Respiratory Rate 20 H 22 H Respiratory Effort Respiratory Depth Respiratory Pattern Blood Pressure 153/90 H 153/90 H Blood Pressure Mean 111 111 Pulse Ox 99 97 Oxygen Delivery Method Nasal Cannula Nasal Cannula Oxygen Flow Rate (L/min) 6 6 Weight Weight: 101 lb 6.602 oz Body Mass Index (BMI) 16.3 Physical Exam Const alert and oriented x3 General Appearance: cooperative HEENT normocephalic and head/scalp atraumatic Eyes PERRL Neck no JVD Lymph Lymphatic: no lymphadenopathy noted Resp Effort and Inspection: labored Auscultation: wheezes scattered wheezes and diminished lung sounds bilateral GI normal to inspection, nondistended, normoactive bowel sounds Extremity normal capillary refill Skin Rashes: no rashes Neuro CN's II-XII intact bilaterally Psych affect normal Results Lab / Micro Data Result Diagrams: 10/25/20 17:30 Labs: Laboratory Results - last 24 hr 10/25/20 17:30: WBC 8.3, RBC 4.80, Hgb 14.5, Hct 42.0, MCV 87.5, MCH 30.2, MCHC 34.5, RDW Std Deviation 39.1, RDW Coeff of Oral 12.1, Plt Count 505 H, MPV 9.6, Immature Gran % (Auto) 0.500, Neut % (Auto) 71.7 H, Lymph % (Auto) 14.3 L, [place] % (Auto) 8.4, Eos % (Auto) 4.7, Baso % (Auto) 0.4, Absolute Neuts (auto) 5.9, Ab solute Lymphs (auto) 1.18, Nucleated RBC % 0 10/25/20 17:30: Troponin I High Sens 9.3 10/25/20 17:30: Lactic Acid 0.8 Micro: Microbiology 10/25/20 18:30 Mucosa - Nose SARS-CoV-2 Antigen (Rapid) - Final Radiology Impression Chest X-Ray 10/25/20 18:10 IMPRESSION: No radiographic evidence of acute cardiopulmonary disease. COPD. at 1830 Reported and signed by: Himanshu Hunter MD Electronically Signed: Himanshu Hunter MD at 18:29 EDT Tel , Service support , Assessment & Plan Assessment/Plan (1) COPD with exacerbation: (2) Smoking greater than 30 pack years: (3) Depression: (4) Hypertension: (5) Anxiety: PLAN: 1. COPD with exacerbation?admit patient to general medical floor, IV Solu-Medrol, DuoNeb INH every 4 hours as needed, Levaquin 500 mg IV daily along with oxygen per protocol 2. Smoking cessation strongly encouraged 3. Depression?continue home medications 4. Hypertension?continue home medications and monitor blood pressure here 5. Anxiety appears stable at this time continue home medications 6. DVT prophylaxis?low molecular weight heparin Charges/Coding Visit Charges Inpatient E&M: 11320 Init Hosp L2
[2020-10-26] VITALS (17 sets, daily range): BP systolic 119–146; BP diastolic 72–95; PULSE 70–120; RESP 18–24; TEMP 36.4–36.8; O2SAT 91–99
[2020-10-26] MEDS: Gabapentin 300 MG Capsule PO ×3 (00:12→21:33)
[2020-10-26] MEDS: Atorvastatin Calcium 10 MG Tablet PO ×2 (00:12→21:33)
[2020-10-26] MEDS: levoFLOXacin IV 500 MG/100 ML BAG 100 MG IV ×2 (00:12→21:32)
[2020-10-26] MEDS: Ibuprofen 400 MG Tablet 800 MG PO ×4 (00:13→21:33)
[2020-10-26 06:21] LABS: Absolute Lymphocyte Count 0.25 X10^3/uL (0.83-4.51); Absolute Neutrophil Count 2.2 X10^3/uL (2.0-7.7); Differential Indicated SCAN CRITERIA MET; Hematocrit 37.5 % (37-47); Hemoglobin 12.9 g/dL (12.0-15.0); Lymphocyte # 0.25 X10^3/ul (0.83-4.51); Lymphocyte % 9.8 % (19-41); Mean Corp Hgb Conc 34.4 g/dL (32-36); Mean Corpuscular Hgb 30.1 pg (27.0-32.0); Mean Corpuscular Volume 87.4 fL (81-99); Mean Platelet Vol. 9.6 fl (6.2-12.0); Monocyte# 0.04 X10^3/uL; Monocyte% 1.6 % (0-10); NRBC Flagged by Analyzer 0 % (0-5); Neutrophil # 2.24 X10^3/uL (2.7-7.7); Neutrophil % 88.2 % (47-70); POSITIVE DIFFERENTIAL YES; Platelet Count 449 K/mm3 (150-450); RBC Distribution Width CV 12.1 % (11.6-14.6); RBC Distribution Width SD 39.2 fl (35.1-43.9); Red Blood Count 4.29 M/mm3 (4.2-5.4); White Blood Count 2.5 K/mm3 (4.4-11.0)
[2020-10-26 06:41] LABS: Anion Gap 8 (5-15); BUN 16 mg/dL (7-18); BUN/Creat Ratio 37.5 RATIO (10-20); Calcium,Total 8.7 mg/dL (8.5-10.1); Chloride 88 mmol/L (98-107); Creatinine, Serum 0.43 mg/dL (0.55-1.02); EST Glomerular Filtration Rate 157 mL/min (>60); Est Glom Filt Rate - Afr Amer 190 mL/min (>60); Estimated Creatinine Clearance 39.21 ml/min; Glucose 154 mg/dL (74-106); Potassium 3.6 mmol/L (3.5-5.1); Sodium Level 124 mmol/L (136-145)
[2020-10-26] MEDS: Albuterol 2.5 MG/3 ML VIAL.NEB. INHALATION ×2 (07:14→17:13)
--- NOTE | 2020-10-26 07:41 | PCM.PN.HOSP ---
Subjective Subjective Patient came to ER with cough progressive worsening shortness of breath several days along with subjective fever. Patient is still smokes half pack per day. On 3 L of home oxygen. Objective Data Objective Data Vital Signs: Vital Signs Temp Pulse Resp BP Pulse Ox 97.8 F 70 20 H 138/72 H 91 10/26/20 04:20 10/26/20 07:15 10/26/20 07:15 10/26/20 04:20 10/26/20 07:17 Oxygen Flow Rate (L/min) 3 Oxygen Delivery Method Nasal Cannula Weight: 100 lb 4.965 oz Body Mass Index (BMI) 16.2 Intake & Output: Intake and Output for Last 24 Hours 10/24/20 10/25/20 10/26/20 23:59 23:59 23:59 Intake Total 100 / 100 Balance 100 / 100 Lab / Micro Data Result Diagrams: 10/26/20 05:38 10/26/20 05:38 Labs: Laboratory Results - last 24 hr 10/25/20 17:30: WBC 8.3, RBC 4.80, Hgb 14.5, Hct 42.0, MCV 87.5, MCH 30.2, MCHC 34.5, RDW Std Deviation 39.1, RDW Coeff of Oral 12.1, Plt Count 505 H, MPV 9.6, Immature Gran % (Auto) 0.500, Neut % (Auto) 71.7 H, Lymph % (Auto) 14.3 L, [place] % (Auto) 8.4, Eos % (Auto) 4.7, Baso % (Auto) 0.4, Absolute Neuts (auto) 5.9, Absolute Lymphs (auto) 1.18, Nucleated RBC % 0 10/25/20 17:30: Troponin I High Sens 9.3 10/25/20 17:30: Lactic Acid 0.8 10/26/20 05:38: WBC 2.5 L, RBC 4.29, Hgb 12.9, Hct 37.5, MCV 87.4, MCH 30.1, MCHC 34.4, RDW Std Deviation 39.2, RDW Coeff of Oral 12.1, Plt Count 449, MPV 9.6, Immature Gran % (Auto) 0.400, Neut % (Auto) 88.2 H, Lymph % (Auto) 9.8 L, [place] % (Auto) 1.6, Eos % (Auto) 0.0, Baso % (Auto) 0.0, Absolute Neuts (auto) 2.2, Absolute Lymphs (auto) 0.25 L, Nucleated RBC % 0, Diff Path Review July10/26/20 05:38: Sodium 124 L, Potassium 3.6, Chloride 88 L, Carbon Dioxide 28.0, Anion Gap 8, BUN 16, Creatinine 0.43 L, Estim Creat Clear Calc 39.21, Est GFR (MDRD) Af Amer 190, Est GFR (MDRD) Non-Af 157, BUN/Creatinine Ratio 37.5 H, Glucose 154 H, Calcium 8.7 Micro: Microbiology 10/25/20 18:30 Mucosa - Nose SARS-CoV-2 Antigen (Rapid) - Final Radiography Diagnostic Testing: Radiology Impression Chest X-Ray 10/25/20 18:10 IMPRESSION: No radiographic evidence of acute cardiopulmonary disease. COPD. at 1830 Reported and signed by: Himanshu Hunter MD Electronically Signed: Himanshu Hunter MD at 18:29 EDT Tel , Service support , Physical Exam Narrative General: Alert, Oriented x3, Cooperative, COPD cachexia, BMI 16.2 kg/m? HEENT: Atraumatic, PERRLA, EOMI, Normocephalic Oral: No Gingival or Mucosal Lesions/ Ulcerations Neck: Supple, No JVD, Negative Carotid Bruits Lungs: Air entry severely diminished in both lungs. Expiratory phase prolonged. Bilateral rhonchi. Conversational dyspnea. Cardiovascular: Regular rate, Regular Rhythm, Normal S1, Normal S2, No murmurs Abdomen: Bowel Sounds Present, Soft, Non Tender, Non-Distended : No renal angle tenderness. No suprapubic tenderness. Extremities: No edema, Capillary Refill Less than 3 Seconds Skin: No rashes, No breakdown Musculoskeletal: Moderate to severe atrophy of muscles of extremities and loss of present despite. No Tenderness to Palpation of Joints or Extremities Neurological: Cranial nerves II-XII grossly intact, DTR 2+/4 and Symmetrical, Neuro grossly intact Psych/Mental Status: Anxiety Assessment & Plan Assessment/Plan (1) COPD with exacerbation: PLAN: 5-year-old female with history of COPD is being admitted for several days history of worsening shortness of breath along with cough, subjective fever. Patient on 3 L of home oxygen but requirement increased to 6 L in ED. 1. Acute on chronic hypoxic respiratory failure due to COPD with exacerbation?admit patient to general medical floor, IV Solu-Medrol, DuoNeb INH every 4 hours as needed, Levaquin 500 mg IV daily along with oxygen per protocol. Patient follows Dr. Simpson. No available PFT to review. Patient on Trelegy and albuterol as needed as an outpatient. Patient is still tachypneic. Respiratory panel ordered. Blood cultures x2 are pending 2. Smoking cessation strongly encouraged. On nicotine patch 3. Anxiety and depression?continue home medications 4. Hypertension?blood pressure is fairly controlled. 5. Severe chronic malnutrition: Research Statistician consult DVT prophylaxis?low molecular weight heparin Total time of the visit including total time spent in counseling or coordination of care, (more than 50% of the total time, spent in obtaining medical information from nurses and other ancillary care providers,explaining to the patient about labs, imaging, diagnosis and management), discussion about cessation of smoking, review of labs and imaging is 30 minutes. Charges/Coding Visit Charges Inpatient E&M: 39797 Subs Hosp L3
--- NOTE | 2020-10-26 10:00 | CASEMGMT ---
RADHA BOSWELL Assessment: Face to Face with pt for initial transition planning/care coordination assessment. RADHA BOSWELL introduced self and role at [facility], pt voices understanding and consents to assessment. Pt is A/O x4 and answers all questions appropriately at this time. Pt sitting up in bed with O2 on. Pt is sob with conversation. Care providers, pharmacy, and demographics verified/updated. Admitting Dx: COPD exac PCP:Jose Specialists:Calvin wilkerson Preferred Pharmacy: [facility] Insurance: [employer], [facility] Prescription Benefit: yes LW/HPOA: Pt denies having a LW/DPOA stating she needs to do this. She asked if she could have it done while in the hospital. Notified LOKI Argueta of pt request. LNOK: boo Bauer; Dylan Winter, matthew other Living Arrangements: Pt lives in a two story house with two steps to enter with her sig other. Pt states normally she is I in ADL's but the last couple of days she has been much weaker. Pt denies concerns at home. Transportation: Pt drives self typically but unable for the last couple of days. Pt denies concerns with transportation. DME/HHC/SNF: Pt has O2 at home. She states she wears 2-3 L continuous and gets it through [facility]. TC to [facility], spoke with Deepti. She states pt rx is for 3L continuous and 6L with exertion. Pt also has a hand held shower and walkers that she does not use. Pt has had [facility]HS in the past and denies SNF stays. Pt states no concerns with going home at time of dc. Pt denied need for HHC for nursing or therapy. Pt states she will regain her strength on her own. Pt states no further concerns/needs. CM to follow. Advised pt to ask CM if any further question/concerns/needs arise, voices understanding. Pt Goal: Home Plan: Home with sig other support
[2020-10-26] MEDS: Enoxaparin 40 MG/0.4 ML Syringe SC (10:27)
[2020-10-26] MEDS: Pantoprazole Sodium 40 MG Tablet PO (10:28)
[2020-10-26] MEDS: Citalopram 20 MG Tablet PO (10:28)
[2020-10-26] MEDS: amLODIPine 2.5 MG Tablet PO (10:28)
[2020-10-26] MEDS: Nicotine Polacrilex 2 MG GUM PO (10:29)
[2020-10-26] MEDS: Ipratropium/Albuterol Sulfate 3 ML AMPUL.NEB INHALATION ×2 (11:25→19:36)
[2020-10-26 12:50] LABS: Pathologist Review Reviewed
[2020-10-26] MEDS: 0.9% Saline Lock 10 ML Syringe IV (13:36)
--- NOTE | 2020-10-26 13:50 | CASEMGMT ---
SOCIAL WORK Referral Source: CM Reason for Referral: Advanced Directives Updated by CM, patient requests to complete Advanced Directives. Met with patient in room. Introduced role and reason for referral. Advanced Directives completed with patient. Original given to patient, copy added to chart. Vinnie Alegria MSW, PUBLIC HEALTH AIDE
[2020-10-27] VITALS (9 sets, daily range): BP systolic 113–129; BP diastolic 75–83; PULSE 48–110; RESP 18–28; TEMP 36.4–36.8; O2SAT 92–95
[2020-10-27] MEDS: 0.9% Saline Lock 10 ML Syringe IV ×3 (05:26→21:40)
[2020-10-27] MEDS: Ibuprofen 400 MG Tablet 800 MG PO (05:26)
[2020-10-27 07:00] LABS: Absolute Lymphocyte Count 0.34 X10^3/uL (0.83-4.51); Absolute Neutrophil Count 15.7 X10^3/uL (2.0-7.7); Basophil# 0.02 X10^3/uL; Basophil% 0.1 % (0-1); Hematocrit 39.5 % (37-47); Hemoglobin 13.1 g/dL (12.0-15.0); Lymphocyte # 0.34 X10^3/ul (0.83-4.51); Lymphocyte % 2.1 % (19-41); Mean Corp Hgb Conc 33.2 g/dL (32-36); Mean Corpuscular Hgb 29.8 pg (27.0-32.0); Mean Platelet Vol. 9.7 fl (6.2-12.0); Monocyte# 0.35 X10^3/uL; Monocyte% 2.1 % (0-10); NRBC Flagged by Analyzer 0 % (0-5); Neutrophil # 15.65 X10^3/uL (2.7-7.7); Neutrophil % 95.1 % (47-70); POSITIVE DIFFERENTIAL YES; Platelet Count 480 K/mm3 (150-450); RBC Distribution Width CV 12.7 % (11.6-14.6); RBC Distribution Width SD 41.9 fl (35.1-43.9); Red Blood Count 4.39 M/mm3 (4.2-5.4); White Blood Count 16.5 K/mm3 (4.4-11.0)
[2020-10-27 07:03] LABS: Differential Indicated SCAN CRITERIA MET
[2020-10-27] MEDS: Ipratropium/Albuterol Sulfate 3 ML AMPUL.NEB INHALATION ×5 (07:08→23:04)
[2020-10-27 07:25] LABS: Anion Gap 6 (5-15); BUN 28 mg/dL (7-18); Calcium,Total 9.2 mg/dL (8.5-10.1); Chloride 93 mmol/L (98-107); Creatinine, Serum 0.57 mg/dL (0.55-1.02); EST Glomerular Filtration Rate 112 mL/min (>60); Est Glom Filt Rate - Afr Amer 136 mL/min (>60); Estimated Creatinine Clearance 39.21 ml/min; Glucose 114 mg/dL (74-106); Potassium 4.3 mmol/L (3.5-5.1); Sodium Level 126 mmol/L (136-145)
[2020-10-27] MEDS: Nicotine Polacrilex 2 MG GUM PO (09:11)
[2020-10-27] MEDS: Citalopram 20 MG Tablet PO (09:11)
[2020-10-27] MEDS: Enoxaparin 40 MG/0.4 ML Syringe SC (09:11)
[2020-10-27] MEDS: Pantoprazole Sodium 40 MG Tablet PO (09:11)
[2020-10-27] MEDS: Gabapentin 300 MG Capsule PO ×2 (09:11→21:40)
[2020-10-27] MEDS: amLODIPine 2.5 MG Tablet PO (09:11)
--- NOTE | 2020-10-27 10:07 | CASEMGMT ---
Addendum entered by Alise Flood 10/27/20 12:21: 1124- Called [facility] and s/w Michelle- confirmed received fax. PHILIP Leon Original Note: Palliative Tool Screening completed per [facility] protocol d/t Strata [address] Scott request to refer patient. Patient met Criteria and referral Faxed to [facility]. PHILIP Leon
--- NOTE | 2020-10-27 11:51 | PN.HOSP_ITS ---
Subjective Subjective Seen and examined. Patient shortness of breath little better but he still has significant conversational dyspnea on mild exertion. She agreed for palliative care approach. Objective Data Objective Data Vital Signs: Vital Signs Temp Pulse Resp BP Pulse Ox 97.8 F 88 22 H 124/81 H 92 10/27/20 09:05 10/27/20 10:51 10/27/20 10:51 10/27/20 09:05 10/27/20 10:51 Oxygen Flow Rate (L/min) 3 Oxygen Delivery Method Nasal Cannula Weight: 100 lb 4.965 oz Body Mass Index (BMI) 16.2 Intake & Output: Intake and Output for Last 24 Hours 10/25/20 10/26/20 10/27/20 23:59 23:59 23:59 Intake Total 1551 / 1573 522 / 522 Balance 1551 / 1573 522 / 522 Medical Nutrition Assessment Dietitian: Nutrition Therapy Diagnosis Start: 10/26/20 13:17 Freq: Status: Active Protocol: Document 10/26/20 13:17 AG (Rec: 10/26/20 13:17 AG [id number]) Nutrition Malnutrition Evidence of Malnutrition Exists Yes Malnutrition (severe): Acute Illness/Injury Evidenced By Suboptimal Energy Intake ( Severe),Weight Loss (Severe), Physical Changes (Severe) Clinical Problem Acute Disease or Injury Related Malnutrition Etiology severe, acute malnutrition r/t inadequate protein-energy intake d/t fatigue and increased metabolic needs Signs/Symptoms as evidenced by consumption of </=50% energy needs x1 month, unintentional weight loss of 10#/9% x1 month, severe muscle and fat wasting of clavicle, orbital and hand regions, and BMI 16.2. Status Active Problem Recommendation Dietitian Recommendations/Changes Continue regular/general diet. Continue ensure enlive 120mL PO 4x/day. Add chocolate magic cup BID at lunch and dinner. Lab / Micro Data Result Diagrams: 10/27/20 06:35 10/27/20 06:35 Labs: Laboratory Results - last 24 hr 10/26/20 05:38: Diff Path Review Reviewed 10/27/20 06:35: WBC 16.5 H, RBC 4.39, Hgb 13.1, Hct 39.5, MCV 90.0, MCH 29.8, MCHC 33.2, RDW Std Deviation 41.9, RDW Coeff of Oral 12.7, Plt Count 480 H, MPV 9.7, Immature Gran % (Auto) 0.600, Neut % (Auto) 95.1 H, Lymph % (Auto) 2.1 L, Pope % (Auto) 2.1, Eos % (Auto) 0.0, Baso % (Auto) 0.1, Absolute Neuts (auto) 15.7 H, Absolute Lymphs (auto) 0.34 L, Nucleated RBC % 0 10/27/20 06:35: Sodium 126 L, Potassium 4.3, Chloride 93 L, Carbon Dioxide 27.0, Anion Gap 6, BUN 28 H, Creatinine 0.57, Estim Creat Clear Calc 39.21, Est GFR (MDRD) Af Amer 136, Est GFR (MDRD) Non-Af 112, BUN/Creatinine Ratio 49.0 H, Glucose 114 H, Calcium 9.2 Micro: Microbiology 10/26/20 12:00 Mucosa - Nasopharyngeal Respiratory Panel (PCR) - Final 10/25/20 18:30 Mucosa - Nose SARS-CoV-2 Antigen (Rapid) - Final Physical Exam Narrative Seen and examined. General: Alert, Oriented x3, Cooperative, COPD cachexia, BMI 16.2 kg/m? HEENT: Atraumatic, PERRLA, EOMI, Normocephalic Oral: No Gingival or Mucosal Lesions/ Ulcerations Neck: Supple, No JVD, Negative Carotid Bruits Lungs: Air entry severely diminished in both lungs. Expiratory phase prolonged. Bilateral rhonchi. Dyspnea on minimal exertion Cardiovascular: Regular rate, Regular Rhythm, Normal S1, Normal S2, No murmurs Abdomen: Bowel Sounds Present, Soft, Non Tender, Non-Distended : No renal angle tenderness. No suprapubic tenderness. Extremities: No edema, Capillary Refill Less than 3 Seconds Skin: No rashes, No breakdown Musculoskeletal: Moderate to severe atrophy of muscles of extremities and loss of present despite. No Tenderness to Palpation of Joints or Extremities Neurological: Cranial nerves II-XII grossly intact, DTR 2+/4 and Symmetrical, Neuro grossly intact Psych/Mental Status: Anxiety Assessment & Plan Assessment/Plan (1) COPD with exacerbation: PLAN: 5-year-old female with history of COPD is being admitted for several days history of worsening shortness of breath along with cough, subjective fever. Patient on 3 L of home oxygen but requirement increased to 6 L in ED. 1. Acute on chronic hypoxic respiratory failure due to COPD with exacerbation?admit patient to general medical floor, IV Solu-Medrol, DuoNeb INH every 4 hours as needed, Levaquin 500 mg IV daily along with oxygen per protocol. Patient follows Dr. Simpson. No available PFT to review. Patient on Trelegy and albuterol as needed as an outpatient. Patient is still tachypneic. 10/27: Respiratory panel is negative. Blood cultures x2 are pending. Patient is advanced case of COPD with cachexia, nonadherent to physician follow-up and medications. Agreed for palliative care consult. Chest x-ray does not acute infiltrate. Levaquin changed to Zithromax total of 3 doses for COPD exacerbation. 2. Smoking cessation strongly encouraged. On nicotine patch 3. Anxiety and depression?continue home medications 4. Hypertension?blood pressure is fairly controlled. 5. Severe chronic malnutrition: Logistics Operations Manager consult DVT prophylaxis?low molecular weight heparin Total time of the visit including total time spent in counseling or coordination of care, (more than 50% of the total time, spent in obtaining medical information from nurses and other ancillary care providers,explaining to the patient about labs, imaging, diagnosis and management), discussion about cessation of smoking, review of labs and imaging is 30 minutes. Charges/Coding Visit Charges Inpatient E&M: 71423 Subs Hosp L2
--- NOTE | 2020-10-27 16:07 | PCM.CONS.P ---
Assessment & Plan Assessment/Plan (1) Shortness of breath: (2) Acute respiratory failure with hypoxia: (3) COPD with exacerbation: (4) Anxiety: (5) Depression: QUALIFIERS: Depression Type: unspecified Qualified Code(s): F32.9 - Major depressive disorder, single episode, unspecified (6) Insomnia: QUALIFIERS: Insomnia type: unspecified Qualified Code(s): G47.00 - Insomnia, unspecified (7) Hypertension: QUALIFIERS: Hypertension type: primary hypertension Qualified Code(s): I10 - Essential (primary) hypertension (8) Chronic bronchitis: QUALIFIERS: Chronic bronchitis type: unspecified Qualified Code(s): J42 - Unspecified chronic bronchitis (9) Emphysema of lung: QUALIFIERS: Emphysema type: unspecified Qualified Code(s): J43.9 - Emphysema, unspecified (10) Dysphagia: QUALIFIERS: Dysphagia type: unspecified Qualified Code(s): R13.10 - Dysphagia, unspecified (11) Allergic rhinitis: QUALIFIERS: Allergic rhinitis trigger: unspecified Allergic rhinitis seasonality: seasonal Qualified Code(s): J30.2 - Other seasonal allergic rhinitis (12) Smoking greater than 30 pack years: (13) ETOH abuse: PLAN: 65-year-old female with emphysema/COPD, chronic hypoxemic respiratory failure with a nighttime oxygen requirement of 3 L per nasal cannula, seen today for palliative care consultation for assistance with managing her shortness of breath. She previously followed with pulmonary medicine but has been lost to follow-up/no-show. 1. Dyspnea: Progressing. Significant smoking history, was 3 PPD, now 1.5 PPD. Last PFT November 2019 showed irreversible moderately severe large airway obstructive ventilatory defect with an FEV1 of 56% of predicted. She has not followed up with repeat PFTs as directed. Again, followed with PMW. I have recommended she resume her pulmonary visits on a routine schedule, in addition to routine palliative care follow-up. I do not feel she is appropriate for oxycodone or Roxanol at this point, especially with her EtOH abuse. Palliative will provide supportive care at this point and monitor for any changes, as well as communicate to her specialists and PCP as needed. I would NOT prescribe any controlled substances at this time. 2. Anxiety: Likely plays a role in her dyspnea and ongoing smoking addiction. Not on antidepressant or anxiolytic.There is some evidence that certain antidepressants help with smoking cessation, however not strong evidence. We could try nortriptyline, bupropion is also a choice but she has a documented allergy-had severe hallucinations. She has not been able to afford the nicotine patch in the past. 3. ETOH abuse: Admits she was not transparent when she was admitted to the hospital regarding her alcoholism. She thinks she is now going through withdrawal, feeling very anxious. She is somewhat tachycardic at times. She does not have an anxiolytic ordered. Requesting staff to bring her beer. I did inform the nurse and she will discuss with attending. 3. Chronic bronchitis/COPD/HTN/allergic rhinitis/dysphagia: Complicates overall care and management. Encouraged to follow-up routinely with her PCP and specialist. Thank you for the opportunity to participate in this patient's care, please do not hesitate to contact [facility] with any further questions or concerns. Palliative direct line is [phone]. We will follow up after discharge and will discuss palliative services further at that time. Greater than 50% of F2F visit dedicated to education and counseling of palliative care services, medications, comorbid conditions and potential assistance with management, and plan of care moving forward. Start time: 1603 End time: 1700 HPI Consult Data Date of Consult: 10/27/20 HPI Narrative HPI Narrative: SPENCER MENDES, is a 65 F who presents to [facility] 10/25/2020 with complaints of a few day history of increased shortness of breath. She is on baseline oxygen supplementation at 3 L per nasal cannula at night, however she has been requiring supplementation during the daytime as well. Chest x-ray in the ER showed nothing acute. She was given steroids nebulizers with some improvement, however admitted for further evaluation and management due to increase in oxygen requirements. PMH chronic back pain, anxiety, COPD, depression, dysphagia, hypertension, and insomnia. Patient is a current smoker, but has been weaning herself down and is now at about a half a pack a day. Patient previously followed with pulmonary medicine of [place] but was lost to follow-up, possibly canceled her visits. She was last seen December 292019 by Mihaela Austin NP. She then had a follow-up visit scheduled with Dr. Bentley but appears she was a no-show. Palliative care consulted for assistance with managing her shortness of breath. She continues to have significant symptoms of conversational dyspnea and [facility] on minimal exertion. She has been weaned down to her baseline oxygen requirement of 3 L per nasal cannula, however again was previously not wearing during the day. Inhaler regimen includes Trelegy and as needed albuterol nebulizers. Patient appears very disorganized and anxious during my evaluation. I cannot get a full sentence out at a time. She is very distracted and keeps referring to wanting a beer. She admits that she is an alcoholic and drinks a minimum of a sixpack of beer per day. States she would feel much better if I would just go get her some beer. She then states that she has never really been weaned down to a half a pack a day of cigarettes, she smokes 1-1/2 to 2 packs/day. States the nicotine patch that she is currently wearing is helping quite a bit. Admits she has anxiety and insomnia, however states her PCP told her to take all of her medications at night to make herself sleep. She does not always use her inhalers due to cost and forgetfulness. I did explain palliative services, however again patient was unable to focus long enough to understand what I was saying. I did tell her we will send a liaison out to give her some brochures and more information, as well as answer any questions she may have at that time. She is agreeable. Denies any nausea, vomiting, diarrhea, constipation, chest or abdominal pain. She does have dyspnea with minimal exertion. No headaches. No tremors. No numbness or tingling. No recent vision changes or exposure to sick contacts. PFSH Medical History Allergic rhinitis Anxiety Back pain Chronic bronchitis COPD (chronic obstructive pulmonary disease) Depression Dysphagia Emphysema of lung Hypertension Insomnia Smoker Home Medications citalopram 20 mg PO DAILY 10/13/15 [History Last Taken 10/24/20] omeprazole 40 mg PO DAILY 10/13/15 [History Last Taken 10/24/20] amlodipine 2.5 mg tablet 2.5 mg PO DAILY 11/12/18 [History Last Taken 10/24/20] cyclobenzaprine 10 mg tablet 10 mg PO TID PRN 11/12/18 [History Last Taken 10/24/20] gabapentin 300 mg capsule 300 mg PO BID 11/12/18 [History Last Taken 10/24/20] hydrocodone-acetaminophen 1 ea PO Q12H PRN PRN 12/19/19 [History Last Taken 10/24/20] albuterol sulfate 2 puff INHALATION Q4H PRN PRN #1 inhaler 12/20/19 [Rx Last Taken Unknown] xmpgebkapzm-euhmiylhp-hjkqyxgo 1 ea IH DAILY #1 blst.w.dev 12/20/19 [Rx Last Taken 10/24/20] atorvastatin 10 mg PO QHS 10/25/20 [History Last Taken 10/24/20] ibuprofen 800 mg PO TID 10/25/20 [History Last Taken 10/24/20] Allergy/AdvReac Type Severity Reaction Status Date / Time bupropion [From Wellbutrin] Allergy Severe hallucinati Verified 10/27/20 16:55 ons Family History Other No pertinent family history Surgical History No pertinent past surgical history Social History (Updated 10/27/20 @ 17:03 by JOSE Lennon) household members: significant other financial difficulty paying for basics: somewhat hard history of recent travel: No Smoking Status: Current every day smoker tobacco type: cigarettes Smoking packs per day: 2 Smoking cigarettes per day: 40.0 Years smoked: 50 Smoking pack-years: 100.00 quit status: considering quitting counseling given: provider counseling and counseling >10 minutes alcohol intake: current alcohol intake frequency: 3 or more drinks per day Alcohol type: beer details: 6 pk or more every day substance use type: does not use ROS ROS Narrative Review of systems otherwise negative from a constitutional, HEENT, respiratory, cardiovascular, GI, genitourinary, musculoskeletal, skin, neurologic, psychiatric and hematologic system unless stated above. Physical Exam Const alert and oriented x3 Constitutional Narrative: Cachectic. Easily distracted and not focusing on our conversation General Appearance: disheveled and frail HEENT normocephalic and head/scalp atraumatic Neck supple General: trachea midline Resp no use of accessory muscles Effort and Inspection: able to speak in complete sentences, symmetric chest movement and tachypneic Auscultation: rhonchi, wheezes and diminished lung sounds diffuse Cardio regular rate, regular rhythm, S1 normal heart sound and S2 normal heart sound GI normal to inspection, nondistended, normoactive bowel sounds Extremity no clubbing, cyanosis or edema Skin no rashes or lesions noted Neuro CN's II-XII intact bilaterally and no focal motor deficits Psych Appearance: disheveled Attitude: agitated Activity / Motor Behavior: fidgetting, disorganized and restless Speech: excessive Mood & Affect: anxious Thought Process: flight of ideas Thought Content: No hallucination(s)
[2020-10-27] MEDS: Atorvastatin Calcium 10 MG Tablet PO (21:40)
[2020-10-28 03:00] VITALS: BP 115/74; PULSE 90; RESP 18; TEMP 36.8; O2SAT 100
[2020-10-28 05:41] LABS: Basophil# 0.01 X10^3/uL; Basophil% 0.1 % (0-1); Hematocrit 36.5 % (37-47); Hemoglobin 12.1 g/dL (12.0-15.0); Lymphocyte % 1.9 % (19-41); Mean Corp Hgb Conc 33.2 g/dL (32-36); Mean Corpuscular Volume 90.3 fL (81-99); Mean Platelet Vol. 9.5 fl (6.2-12.0); Monocyte# 0.22 X10^3/uL; Monocyte% 1.4 % (0-10); NRBC Flagged by Analyzer 0 % (0-5); Neutrophil # 14.98 X10^3/uL (2.7-7.7); Neutrophil % 95.8 % (47-70); POSITIVE DIFFERENTIAL YES; Platelet Count 437 K/mm3 (150-450); RBC Distribution Width CV 13.4 % (11.6-14.6); RBC Distribution Width SD 44.6 fl (35.1-43.9); Red Blood Count 4.04 M/mm3 (4.2-5.4); White Blood Count 15.6 K/mm3 (4.4-11.0)
[2020-10-28 05:51] LABS: Differential Indicated SCAN CRITERIA MET
[2020-10-28 06:00] LABS: Anion Gap 6 (5-15); BUN 26 mg/dL (7-18); BUN/Creat Ratio 62.4 RATIO (10-20); Calcium,Total 8.7 mg/dL (8.5-10.1); Chloride 97 mmol/L (98-107); Creatinine, Serum 0.42 mg/dL (0.55-1.02); EST Glomerular Filtration Rate 161 mL/min (>60); Est Glom Filt Rate - Afr Amer 195 mL/min (>60); Estimated Creatinine Clearance 39.21 ml/min; Glucose 132 mg/dL (74-106); Potassium 4.7 mmol/L (3.5-5.1); Sodium Level 131 mmol/L (136-145)
[2020-10-28] MEDS: 0.9% Saline Lock 10 ML Syringe IV (06:39)
[2020-10-28 06:50] VITALS: PULSE 101; RESP 20; O2SAT 95
[2020-10-28] MEDS: Ipratropium/Albuterol Sulfate 3 ML AMPUL.NEB INHALATION ×2 (06:50→11:34)
[2020-10-28 08:23] VITALS: BP 127/88; PULSE 93; RESP 16; TEMP 36.7; O2SAT 99
[2020-10-28] MEDS: Pantoprazole Sodium 40 MG Tablet PO (09:32)
[2020-10-28] MEDS: Azithromycin 250 MG Tablet 500 MG PO (09:32)
[2020-10-28] MEDS: amLODIPine 2.5 MG Tablet PO (09:32)
[2020-10-28] MEDS: Enoxaparin 40 MG/0.4 ML Syringe SC (09:33)
--- NOTE | 2020-10-28 10:39 | PCM.DC ---
Discharge Instructions Diet Discharge Diet: No restrictions Activity Discharge Activity: Return to Normal Activity Weight Bearing Status: Full weight bearing Follow Up Care Test Results: Test results from this visit will be discussed in further detail at your follow-up appointment, if applicable. Discharge Plan Admission Admit Date/Time: 10/25/20 21:07 Primary Reason for Your Visit: exacerbation of COPD Attending Provider: Elias Harden Primary Care Provider: May Garcia Instructions Additional Instructions / Restrictions: Use oxygen continuously as directed Do not smoke, recommend you get a COVID-19 vaccine as soon as possible Discharge Orders/Prescriptions Prescriptions: New prednisone 20 mg tablet 20 mg PO DAILY Qty: 11 RF: 0 Continued cyclobenzaprine 10 mg tablet 10 mg PO TID PRN (Reason: muscle spasm) RF: 0 gabapentin 300 mg capsule 300 mg PO BID RF: 0 amlodipine [Norvasc] 2.5 mg tablet 2.5 mg PO DAILY RF: 0 omeprazole 40 MG capsule,delayed release(DR/EC) 40 mg PO DAILY RF: 0 citalopram 20 MG tablet 20 mg PO DAILY RF: 0 hydrocodone-acetaminophen 1 EACH tablet 1 ea PO Q12H PRN PRN (Reason: Pain Or Fever) RF: 0 dcvrkohaxve-uzywophkg-wcmqvnbo 1 EACH blister with device 1 ea IH DAILY Qty: 1 RF: 0 albuterol sulfate 1 INHALER inhaler 2 puff inhalation Q4H PRN PRN (Reason: Shortness Of Breath) Qty: 1 RF: 0 atorvastatin 10 mg tablet 10 mg PO QHS RF: 0 ibuprofen 800 mg tablet 800 mg PO TID RF: 0 Referrals / Follow Up: May Garcia MD [Primary Care Provider] - Within 2 Weeks Disposition Disposition (needs filled in before D/C Order can be placed): Home, Self Care
[2020-10-28 11:34] VITALS: PULSE 100; RESP 24
[2020-10-28 11:49] VITALS: O2SAT 84; O2SAT 90; O2SAT 93; O2SAT 97
[2020-10-28 11:53] VITALS: BP 135/85; PULSE 97; RESP 16; TEMP 36.6; O2SAT 93
--- NOTE | 2020-10-28 12:18 | CASEMGMT ---
RADHA BOSWELL NOTE: Dr Harden informed this RN CM he advised pt to get COVID vaccine. RADHA CM to room to talk w/pt. Pt [facility] and [email or web address].[place].gov/ website and given instructions on same. Discussed discharge planning. Pt denies having any discharge needs or concerns. She denies need for HHC. Discussed CCN w/pt. Pt states she manages her own medications and appts w/out difficulty but she may be interested in them in the future. Pt provided w/CCN Rac card/contact information. She voices appreciation. Pt on O2 @ home @ 3 L/M @ rest and 6 L/M w/exertion. Ambulatory pulse ox has been completed. Pt does not require additional oxygen at this time. Jesse HERRERA RN CM
--- NOTE | 2020-10-28 13:56 | NURSING ---
This RN reviwed SN charting
--- NOTE | 2020-10-29 13:50 | CASEMGMT ---
RADHA BOSWELL Discharge Follow-up Phone Call: JESSIE: 11 Strata: 3 Call Date: 10/29/20 Discharge Date: 10/28/20 Time of Call: 1450 Duration: 1 min Admitting Diagnosis: COPD exacerbation RADHA BOSWELL attempted to complete follow-up phone call after recent hospitalization. No answer, voice message left with return contact information.
--- NOTE | 2020-10-29 16:25 | PCM.DC.SUM ---
Providers Date of Admission: 10/25/20 Date of Discharge: 10/28/20 Primary Care Physician: Dr. May Garcia MD Reason For Visit: COPD EXACERBATION Diagnosis Discharge Diagnosis (1) Shortness of breath: Status: Acute Code(s): R06.02 - Shortness of breath (2) Acute respiratory failure with hypoxia: Status: Acute Code(s): J96.01 - Acute respiratory failure with hypoxia (3) COPD with exacerbation: Status: Chronic Code(s): J44.1 - Chronic obstructive pulmonary disease with (acute) exacerbation (4) Anxiety: Status: Chronic Code(s): F41.9 - Anxiety disorder, unspecified (5) Depression: Status: Chronic Code(s): F32.9 - Major depressive disorder, single episode, unspecified Qualifiers: Depression Type: unspecified Qualified Code(s): F32.9 - Major depressive disorder, single episode, unspecified (6) Insomnia: Status: Chronic Code(s): G47.00 - Insomnia, unspecified Qualifiers: Insomnia type: unspecified Qualified Code(s): G47.00 - Insomnia, unspecified (7) Hypertension: Status: Chronic Code(s): I10 - Essential (primary) hypertension Qualifiers: Hypertension type: primary hypertension Qualified Code(s): I10 - Essential (primary) hypertension (8) Chronic bronchitis: Status: Chronic Code(s): J42 - Unspecified chronic bronchitis Qualifiers: Chronic bronchitis type: unspecified Qualified Code(s): J42 - Unspecified chronic bronchitis (9) Emphysema of lung: Status: Chronic Code(s): J43.9 - Emphysema, unspecified Qualifiers: Emphysema type: unspecified Qualified Code(s): J43.9 - Emphysema, unspecified (10) Dysphagia: Status: Chronic Code(s): R13.10 - Dysphagia, unspecified Qualifiers: Dysphagia type: unspecified Qualified Code(s): R13.10 - Dysphagia, unspecified (11) Allergic rhinitis: Status: Chronic Code(s): J30.9 - Allergic rhinitis, unspecified Qualifiers: Allergic rhinitis trigger: unspecified Allergic rhinitis seasonality: seasonal Qualified Code(s): J30.2 - Other seasonal allergic rhinitis (12) Smoking greater than 30 pack years: Status: Chronic Code(s): F17.210 - Nicotine dependence, cigarettes, uncomplicated (13) ETOH abuse: Status: Acute Code(s): F10.10 - Alcohol abuse, uncomplicated Plan: 1. Exacerbation of COPD #2 essential hypertension #3 acute on chronic hypoxic respiratory failure #4 chronic anxiety and depression #5 severe protein and caloric malnutrition Medications at Discharge Home Medications citalopram 20 mg PO DAILY 10/13/15 omeprazole 40 mg PO DAILY 10/13/15 amlodipine 2.5 mg tablet 2.5 mg PO DAILY 11/12/18 cyclobenzaprine 10 mg tablet 10 mg PO TID PRN 11/12/18 gabapentin 300 mg capsule 300 mg PO BID 11/12/18 hydrocodone-acetaminophen 1 ea PO Q12H PRN PRN 12/19/19 albuterol sulfate 2 puff INHALATION Q4H PRN PRN #1 inhaler 12/20/19 [id number]-febxuwfix-mleosxbt 1 ea IH DAILY #1 blst.w.dev 12/20/19 atorvastatin 10 mg PO QHS 10/25/20 ibuprofen 800 mg PO TID 10/25/20 prednisone 20 mg PO DAILY #11 tab 10/28/20 Hospital Course Operations None Procedures None Summary of Care Provided Minutes Spent on Discharge: 32 Hospital Course: This 65-year-old white female was seen in the emergency room at [facility] with chief complaint of increasing shortness of breath over the last several days. Patient is on chronic oxygen at home. Evaluation in the emergency room included a chest x-ray which showed no evidence of pneumonia, patient required oxygen at 6 L/min via nasal cannula to maintain her pulse ox above 90%. Patient's usual home oxygen setting was 3 L. Patient was admitted to [place] [id number], she was placed on aggressive aerosol treatments and IV corticosteroids, she improved slowly during her hospitalization. On 10/28/2020, patient was seen and examined: On examination she appeared older than her stated age, she appears cachectic, she does not appear to be in any distress. Vital signs as documented. Skin warm and dry and without overt rashes. Neck without JVD, thyroid appears normal, trachea is midline, neck is supple. Lungs clear, normal air movement was noted. Heart exam notable for regular rhythm, normal sounds and absence of murmurs, rubs or gallops. Abdomen unremarkable and without evidence of organomegaly, masses, or abdominal aortic enlargement, bowel sounds are present in all 4 quadrants, no abdominal tenderness was noted. Extremities nonedematous, no cyanosis was noted, no clubbing was noted. Neuro: Cranial nerves II through XII are grossly intact, no focal motor deficits were noted, sensation to light touch and pinprick is intact, motor exam 5/5 throughout. Psych: Patient is alert and oriented x3, she does not appear anxious or depressed, she does not appear agitated. On 10/28/2020, patient appears stable for discharge home, she required 4 L of oxygen while ambulating to maintain her pulse ox at 90%, on ambulating on room air, patient's pulse ox was 84%, at rest her pulse ox was 93% on room air. Patient is expected to wear her oxygen while ambulating within her home and outside her home. Weight / BMI Weight Weight: 45.5 kg Body Mass Index (BMI) 16.2 ABG / Lab / Microbiology Data Result Diagrams: 10/28/20 05:26 10/28/20 05:26 Microbiology: Microbiology 10/25/20 18:05 Blood Culture (Wb) #2 - Anticubital Right Blood Culture - Preliminary No growth in 48 hours. 10/25/20 17:30 Blood Culture (Wb) - Anticubital Left Blood Culture - Preliminary No growth in 48 hours. 10/26/20 12:00 Mucosa - Nasopharyngeal Respiratory Panel (PCR) - Final 10/25/20 18:30 Mucosa - Nose SARS-CoV-2 Antigen (Rapid) - Final D/C Instructions Discharge Diet: No restrictions Weight Bearing Status: Full weight bearing Meaningful Use Info Meaningful Use Diagnoses (Choose all that apply): None applicable Discharge Plan Admission Admit Date/Time: 10/25/20 21:07 Primary Reason for Your Visit: exacerbation of COPD Attending Provider: Elias Harden Primary Care Provider: May Garcia Instructions Additional Instructions / Restrictions: Use oxygen continuously as directed Do not smoke, recommend you get a COVID-19 vaccine as soon as possible Discharge Orders/Prescriptions Prescriptions: New prednisone 20 mg tablet 20 mg PO DAILY Qty: 11 RF: 0 Continued cyclobenzaprine 10 mg tablet 10 mg PO TID PRN (Reason: muscle spasm) RF: 0 gabapentin 300 mg capsule 300 mg PO BID RF: 0 amlodipine [Norvasc] 2.5 mg tablet 2.5 mg PO DAILY RF: 0 omeprazole 40 MG capsule,delayed release(DR/EC) 40 mg PO DAILY RF: 0 citalopram 20 MG tablet 20 mg PO DAILY RF: 0 hydrocodone-acetaminophen 1 EACH tablet 1 ea PO Q12H PRN PRN (Reason: Pain Or Fever) RF: 0 xccydopwtwj-dxrvebdxs-gsrmftlt 1 EACH blister with device 1 ea IH DAILY Qty: 1 RF: 0 albuterol sulfate 1 INHALER inhaler 2 puff inhalation Q4H PRN PRN (Reason: Shortness Of Breath) Qty: 1 RF: 0 atorvastatin 10 mg tablet 10 mg PO QHS RF: 0 ibuprofen 800 mg tablet 800 mg PO TID RF: 0 Referrals / Follow Up: May Garcia MD [Primary Care Provider] - 11/11/20 10:00 am ([facility] ) Disposition Disposition (needs filled in before D/C Order can be placed): Home, Self Care Charges/Coding Visit Charges Inpatient E&M: 30448 Disch Hosp
== END 2020-10-28 13:28 | disposition home or self-care (01) | DRG 190 ==
LOC: ED 20:45 → MS3 22:15
PROVIDERS: Internal Medicine; Admitting Provider Family Medicine; Emergency Provider Emergency Medicine; PCP Internal Medicine; Visit Provider Internal Medicine
DX: J44.1 Chronic obstructive pulmonary disease with (acute) exacerbation (principal); J96.21 Acute and chronic respiratory failure with hypoxia; E43 Unspecified severe protein-calorie malnutrition; Z68.1 Body mass index [BMI] 19.9 or less, adult; I10 Essential (primary) hypertension; Z20.822 Contact with and (suspected) exposure to COVID-19; J30.9 Allergic rhinitis, unspecified; R13.10 Dysphagia, unspecified; G47.00 Insomnia, unspecified; F32.9 Major depressive disorder, single episode, unspecified; F41.9 Anxiety disorder, unspecified; F17.210 Nicotine dependence, cigarettes, uncomplicated; Z99.81 Dependence on supplemental oxygen; Z79.899 Other long term (current) drug therapy
CPT/HCPCS: 36415; 71045; 80048; 83605; 84484; 85025; 87040; 87426; 87633; 93005; 94640; 94667; 94668; 97802; 99251; 99285; 99406; J7050; A4216; G0463

== ENCOUNTER 2020-12-02 14:03 | Inpatient (IN) | payer MEDICARE, MEDICAID, SELFPAY ==
[2020-12-02] VITALS (12 sets, daily range): BP systolic 122–182; BP diastolic 69–117; PULSE 89–105; RESP 12–28; TEMP 36.4–37.2; O2SAT 95–100; BMI 17.1; BMI 17.6
--- NOTE | 2020-12-02 15:45 | EKG12_ITS ---
Test Reason : Blood Pressure : / mmHG Vent. Rate : 096 BPM Atrial Rate : 096 BPM P-R Int : 158 ms QRS Dur : 094 ms QT Int : 378 ms P-R-T Axes : 073 062 071 degrees QTc Int : 477 ms Sinus rhythm with occasional Premature ventricular complexes Otherwise normal ECG Confirmed by KRYSTAL FOOTE, DIONICIO ([id number]), scientific editor KAI RODRIGUEZ ([id number]) on 12/06/2020 12:38:05 PM Referred By: FARIBA Confirmed By:DIONICIO RICE MD
--- NOTE | 2020-12-02 16:00 | RAD_ITS ---
STUDY: X-RAY CHEST REASON FOR EXAM: Female, 65 years old. SOB TECHNIQUE: Single AP portable view of the chest. COMPARISON: 10/25/2020 FINDINGS: There is hyperinflation of the lungs consistent with chronic obstructive lung disease (COPD). Tiny left pleural effusion with some left lower lobe atelectasis or pneumonia.. Normal size heart. Normal mediastinum and tripp. Normal visualized pulmonary arteries. Normal visualized aortic arch and descending thoracic aorta. Normal visualized thoracic spine. Normal visualized ribs, clavicles, and shoulders. There is no demonstrated abnormality of the visualized soft tissue structures of the upper abdomen. RAD/Chest 1 View (Portable) IMPRESSION: Tiny left pleural effusion with some left lower lobe pneumonia or atelectasis. Electronically Signed: Rolo Hampton MD at 16:49 EDT Tel , Service support ,
--- NOTE | 2020-12-02 16:01 | ED.VIS.DYS ---
HPI History of Present Illness Chief Complaint: Shortness of Breath Informant: patient and family Onset/Context/Timing Onset: Days Context: gradual Timing: Continuous Current Severity: Moderate Maximum Severity: Moderate Associated Symptoms cough Chest Pain: Positive for None Narrative Narrative: Six 5-year-old female history of COPD on 4 L of oxygen at home. Continues to smoke. She has had prior chest tubes for pneumothoraces. States since Sunday she has had increasing shortness of breath. She has a chronic cough that has not changed. Denies any chest pain or hemoptysis. No fever or chills. She has not been vaccinated for Covid. She was hospitalized in September for COPD exacerbation. She has never had a DVT or PE. She denies hemoptysis. PE Risk Factors: Negative for Cancer, OCP + Smoking + > 35, Prior DVT or PE, Recent immobilization, Recent surgery and Recent travel Prior similar symptoms: Yes Recent Illness/Hospitalization: No PFSH PFSH Medical History Allergic rhinitis Anxiety Back pain Chronic bronchitis Chronic hyponatremia Chronic respiratory failure with hypoxia COPD (chronic obstructive pulmonary disease) Depression Dysphagia Emphysema of lung Hypertension Insomnia Smoker Home Medications citalopram 20 mg PO DAILY 10/13/15 [History Last Taken 10/24/20] omeprazole 40 mg PO DAILY 10/13/15 [History Last Taken 10/24/20] amlodipine 2.5 mg tablet 2.5 mg PO DAILY 11/12/18 [History Last Taken 10/24/20] cyclobenzaprine 10 mg tablet 10 mg PO TID PRN 11/12/18 [History Last Taken 10/24/20] gabapentin 300 mg capsule 300 mg PO BID 11/12/18 [History Last Taken 10/24/20] albuterol sulfate 2 puff INHALATION Q4H PRN PRN #1 inhaler 12/20/19 [Rx Last Taken Unknown] faccjonjrai-kxdcfiskt-funarvfn 1 ea IH DAILY #1 blst.w.dev 12/20/19 [Rx Last Taken 10/24/20] atorvastatin 10 mg PO QHS 10/25/20 [History Last Taken 10/24/20] ibuprofen 800 mg PO TID PRN 10/25/20 [History Last Taken 10/24/20] Allergy/AdvReac Type Severity Reaction Status Date / Time bupropion [From Wellbutrin] Allergy Severe hallucinati Verified 12/02/20 14:07 ons Family History Other No pertinent family history Surgical History No pertinent past surgical history Social History household members: significant other history of recent travel: No Smoking Status: Current every day smoker tobacco type: cigarettes quit status: considering quitting counseling given: provider counseling and counseling >10 minutes alcohol intake: current alcohol intake frequency: 3 or more drinks per day Alcohol type: beer details: 6 pk or more every day substance use type: does not use ROS ROS ED ROS Narrative Cough, shortness of breath. Review of Systems ROS Unobtainable: Denies due to encephalopathy Constitutional Constitutional ED: Denies chills or fever(s) Eyes Eyes: Denies change in vision ENT ENT ED: Denies ear pain or sore throat Cardiovascular Cardiovascular: Denies chest pain Respiratory/Chest Respiratory/Chest: Reports cough and dyspnea Gastrointestinal Gastrointestinal: Denies abdominal pain, diarrhea, nausea or vomiting Genitourinary Genitourinary ED: Denies dysuria or hematuria Musculoskeletal Musculoskeletal: Denies myalgias Integumentary Denies rash Neurologic Neurologic: Denies headache(s) Psychiatric Psychiatric: Denies depression Endocrine Endocrinology: Denies polyuria Hematologic/Lymphatic Hematologic/Lymphatic: Denies easy bruising Allergic/Immunologic Allergic/Immunologic ED: Denies urticaria EXAM Physical Exam Narrative Exam Narrative: Older female vital signs stable pulse ox 100% but that is on 4 L. She is afebrile she does not look septic or toxic. H EENT exam unremarkable. Neck nontender no lymphadenopathy. Lungs coarse breath sounds throughout. Rhonchi bilaterally. Expiratory expiratory wheezing. No rales. Equal symmetrical. Heart regular rhythm rate about 100 no murmur. Chest wall nontender no crepitance. Abdomen soft nontender. Moving all 4 extremities. She has trace edema in her left ankle. Her calves are nontender. Neurologically she is awake alert with no focal motor deficits. Const Vital Signs: 12/02/20 14:04 12/02/20 16:15 12/02/20 16:35 Temperature 97.6 F L Temperature Source Temporal Pulse Rate 102 H 96 Respiratory Rate 24 H 19 H 24 H Respiratory Effort Short of Breath Respiratory Depth Normal Respiratory Pattern Normal Tachypnea Blood Pressure 180/106 H Blood Pressure Mean 130 Pulse Ox 100 100 Oxygen Delivery Method Nasal Cannula Nasal Cannula Oxygen Flow Rate (L/min) 4 4 Positive well nourished and well developed; Negative for obese, cachectic, contractures or unkempt General Appearance ED: well developed; Negative for unkempt, cachectic or contractures Nutritional Appearance: Negative for cachectic or obese HEENT Reports moist mucous membranes atraumatic; Negative for trauma Eyes PERRL and EOMs intact bilaterally Neck no lymphadenopathy, supple, no meningeal signs and no JVD General: Negative for tenderness Resp No normal respiratory effort and No clear to auscultation bilaterally Auscultation: rhonchi and wheezes; Negative for rales or diminished lung sounds Cardio regular rate, regular rhythm, S1 normal heart sound, S2 normal heart sound and no murmurs Cardio Narrative: Rate approximately 100. GI non-tender, non-distended and no masses Auscultation: normoactive bowel sounds Palpation: soft; Negative for tender or guarding Back/Spine no CVA tenderness and normal to inspection General Back: Negative for CVA tenderness or tenderness Extremity normal to inspection Extremity Narrative: Trace edema in the left ankle only. Calves are nontender bilaterally. No cords. General Extremety ED: Yes edema; Negative for tenderness General Extremity: edema Neuro oriented x3 Sensorium / Orientation: alert, oriented to person, oriented to place and oriented to time; Negative for confused, lethargic or stuporous Motor Exam: strength 5/5 throughout Psych mental status grossly normal Appearance: Negative for unkempt Skin Lesions: no lesions Rashes: no rashes MDM MDM MDM Narrative Medical decision making narrative: Older female history of COPD. Increasing shortness of breath. On home O2. Treated with IV Solu-Medrol and both DuoNeb and albuterol aerosols. Differential diagnosis would include COPD flare. Cardiac etiology. Consideration of embolic event but she is never had 1 before. Rule out pneumonia versus COVID-19 etc. Most likely need to be admitted. Repeat exam at 4:55 PM patient is still working to breathe. She does not need intubated but she is not good enough to be discharged home. She has been treated with IV Solu-Medrol and both DuoNeb and albuterol aerosols. I have the hospitalist on page for admission. Clinically I do not think this is a PE she did have admission about 1-1/2 months ago and has mild swelling in her left ankle I will discuss that with the hospitalist. Repeat exam the patient is still having both inspiratory and expiratory wheezing. She is also hyponatremic. Patient will be started on IV antibiotics for possible pneumonia with Rocephin and Zithromax. We will obtain an ultrasound of her left leg due to the small edema about her ankle to rule out a DVT of already discussed that with the hospitalist and will check to result. And she is going to be admitted to the PCU. Lab Data Attestation: I reviewed the patient's lab results. Lab results narrative: CBC shows a white count of 7. Hemoglobin 13. Platelets are elevated 622,000. Electrolytes show sodium of 123. Gap of 6. Normal creatinine. Glucose of 103. Troponin normal at 9. Labs: Laboratory Results - last 24 hr 12/02/20 12/02/20 16:05 16:05 WBC 7.9 RBC 4.34 Hgb 13.2 Hct 39.6 MCV 91.2 MCH 30.4 MCHC 33.3 RDW Std Deviation 47.3 H RDW Coeff of Oral 13.8 Plt Count 622 H MPV 8.2 Immature Gran % (Auto) 0.500 Neut % (Auto) 73.2 H Lymph % (Auto) 13.8 L [place] % (Auto) 8.5 Eos % (Auto) 3.6 Baso % (Auto) 0.4 Absolute Neuts (auto) 5.8 Absolute Lymphs (auto) 1.09 Nucleated RBC % 0 Sodium 123 L Potassium 4.0 Chloride 87 L Carbon Dioxide 30.0 Anion Gap 6 BUN 8 Creatinine 0.28 L Estim Creat Clear Calc 41.44 Est GFR (MDRD) Af Amer 309 Est GFR (MDRD) Non-Af 255 BUN/Creatinine Ratio 28.6 H Glucose 103 Calcium 9.0 Troponin I High Sens 9 Radiography Chest X-Ray - ED: 1 View, Read by ED Physician, Heart, Lungs, Mediastinum, Bony Structures, No Acute Disease and Chronic Changes Diagnostic Testing: Radiology Impression Chest X-Ray 12/02/20 16:00 IMPRESSION: Tiny left pleural effusion with some left lower lobe pneumonia or atelectasis. Electronically Signed: Rolo Hampton MD at 16:49 EDT Tel , Service support , Portable single view chest x-ray interpreted by myself shows chronic changes. Small left pleural effusion versus pleural thickening. No infiltrate. No pneumothorax seen. Rhythm Strip Rhythm Strip: Sinus Rhythm Rate: 96 Ectopy: PVC(s) EKG Initial EKG: Attestation: I personally reviewed and interpreted this EKG as follows: Interpretation: Sinus Rhythm and No Acute Injury Pattern Comments: Normal sinus rhythm rate of 96. No acute signs of CT or ischemia. Occasional PVCs. Discharge Plan Dx/Rx/DC Orders Clinical Impression: Acute hyponatremia, COPD (chronic obstructive pulmonary disease) Disposition Disposition: Acute Care Hospital [facility]
[2020-12-02 16:16] LABS: Absolute Lymphocyte Count 1.09 X10^3/uL (0.83-4.51); Absolute Neutrophil Count 5.8 X10^3/uL (2.0-7.7); Basophil# 0.03 X10^3/uL; Basophil% 0.4 % (0-1); Eosinophil# 0.28 X10^3/uL; Eosinophils% 3.6 % (0-5); Hematocrit 39.6 % (37-47); Hemoglobin 13.2 g/dL (12.0-15.0); Lymphocyte # 1.09 X10^3/ul (0.83-4.51); Lymphocyte % 13.8 % (19-41); Mean Corp Hgb Conc 33.3 g/dL (32-36); Mean Corpuscular Hgb 30.4 pg (27.0-32.0); Mean Corpuscular Volume 91.2 fL (81-99); Mean Platelet Vol. 8.2 fl (6.2-12.0); Monocyte# 0.67 X10^3/uL; Monocyte% 8.5 % (0-10); NRBC Flagged by Analyzer 0 % (0-5); Neutrophil # 5.77 X10^3/uL (2.7-7.7); Neutrophil % 73.2 % (47-70); Platelet Count 622 K/mm3 (150-450); RBC Distribution Width CV 13.8 % (11.6-14.6); RBC Distribution Width SD 47.3 fl (35.1-43.9); Red Blood Count 4.34 M/mm3 (4.2-5.4); White Blood Count 7.9 K/mm3 (4.4-11.0)
[2020-12-02] MEDS: Albuterol 2.5 MG/3 ML VIAL.NEB. INHALATION ×2 (16:35)
[2020-12-02] MEDS: Ipratropium/Albuterol Sulfate 3 ML AMPUL.NEB INHALATION ×2 (16:35→17:13)
[2020-12-02 16:40] LABS: Anion Gap 6 (5-15); BUN 8 mg/dL (7-18); BUN/Creat Ratio 28.6 RATIO (10-20); Chloride 87 mmol/L (98-107); Creatinine, Serum 0.28 mg/dL (0.55-1.02); EST Glomerular Filtration Rate 255 mL/min (>60); Est Glom Filt Rate - Afr Amer 309 mL/min (>60); Estimated Creatinine Clearance 41.44 ml/min; Glucose 103 mg/dL (74-106); Sodium Level 123 mmol/L (136-145); Troponin-I HS 9 pg/mL (3.0-54.0)
--- NOTE | 2020-12-02 17:01 | PCM.HP.STD ---
HPI - General General Date of Admission: 12/02/20 Date of Service: 12/02/20 Chief Complaint: Dyspnea, cough, wheezing. HPI Narrative The patient is a 65 y/o F w/ PMHx: Chronic Hyponatremia, Chronic COPD w/ Chronic Hypoxic Respiratory Failure (4L NC), Hx PTX requiring chest tube placements, tobacco use, HTN, HTN, GERD, Anxiety and Depression, Allergic Rhinitis who presents to the [facility] ED on 12/02/20 with history of progressively worsening dyspnea since Sunday with unchanged chronic cough with no recent fevers or chills with associated pleuritic chest discomfort especially with coughing prompting eventual ED evaluation. Work-up in the ED included T 97.6 temporally, heart rate 102, BP 180/106, respiratory rate 24, 100% on 4 L nasal cannula, CBC with WBC 7.9, hemoglobin 13.2, platelet 622 without marked shift, BMP with sodium 123, chloride 87, BUN/creatinine 8/0.28, high-sensitivity opponent 9, chest x-ray with a small tiny left pleural effusion with some left lower lobe either pneumonia or atelectasis, rapid Covid negative. In the ED patient ministered Solu-Medrol 125 mg IV x1, DuoNeb therapies as well as IV azithromycin and Rocephin. Discussed with ED physician left lower extremity swelling and duplex ultrasound is pending upon evaluation. Upon hospitalist evaluation, evidence of notable respiratory distress, RT will place BIPAP now and obtain ABG. Discussed staffing with Supervising RN and will place as stepdown on PCU. Dr. Bentley updated on patient status and concerns. [facility] Medical History Allergic rhinitis Anxiety Back pain Chronic bronchitis Chronic hyponatremia Chronic respiratory failure with hypoxia COPD (chronic obstructive pulmonary disease) Depression Dysphagia Emphysema of lung Hypertension Insomnia Smoker Home Medications citalopram 20 mg PO DAILY 10/13/15 [History Last Taken 10/24/20] omeprazole 40 mg PO DAILY 10/13/15 [History Last Taken 10/24/20] amlodipine 2.5 mg tablet 2.5 mg PO DAILY 11/12/18 [History Last Taken 10/24/20] cyclobenzaprine 10 mg tablet 10 mg PO TID PRN 11/12/18 [History Last Taken 10/24/20] gabapentin 300 mg capsule 300 mg PO BID 11/12/18 [History Last Taken 10/24/20] albuterol sulfate 2 puff INHALATION Q4H PRN PRN #1 inhaler 12/20/19 [Rx Last Taken Unknown] [id number]-[id number] 1 ea IH DAILY #1 blst.w.dev 12/20/19 [Rx Last Taken 10/24/20] atorvastatin 10 mg PO QHS 10/25/20 [History Last Taken 10/24/20] ibuprofen 800 mg PO TID PRN 10/25/20 [History Last Taken 10/24/20] Allergy/AdvReac Type Severity Reaction Status Date / Time bupropion [From Wellbutrin] Allergy Severe hallucinati Verified 12/02/20 14:07 ons Family History (Updated 12/02/20 @ 17:[address] Radha Steve MD) Mother Heart disease Hypertension CAD (coronary artery disease) Other No pertinent family history other (Patient denies any marked paternal family history including HD, DM, CA.) Surgical History (Updated 12/02/20 @ 17:[address] Radha Steve MD) S/P chest tube placement Social History (Updated 12/02/20 @ 17:[address] Radha Steve MD) household members: significant other history of recent travel: No Smoking Status: Current every day smoker tobacco type: cigarettes Smoking packs per day: 0.5 Smoking cigarettes per day: 10.0 quit status: considering quitting counseling given: provider counseling and counseling >10 minutes alcohol intake: current alcohol intake frequency: 3 or more drinks per day Alcohol type: beer details: 4-6 beers daily. substance use type: does not use ROS ROS Narrative Admission Review of Systems: CONSTITUTIONAL: No weight loss, fever, chills, + weakness or fatigue. HEENT: Eyes: No visual loss, blurred vision, double vision or yellow sclerae. Ears, Nose, Throat: No hearing loss, sneezing, congestion, runny nose or sore throat. SKIN: No rash or itching, lesions, wounds. CARDIOVASCULAR: + Pleuritic chest pain. No palpitations, edema, orthopnea, syncopal events. RESPIRATORY: + shortness of breath, cough without marked sputum, wheezing, No hemoptysis. GASTROINTESTINAL: + anorexia, No nausea, vomiting or diarrhea, abdominal pain, melena, BRBPR. GENITOURINARY: No dysuria, frequency, urgency or retention. NEUROLOGICAL: No headache, dizziness, syncope, paralysis, ataxia, numbness or tingling in the extremities, focal weakness, change in bowel or bladder control, seizure. MUSCULOSKELETAL: + muscle, back pain, joint pain or stiffness. HEMATOLOGIC: + anemia, bleeding or bruising. LYMPHATICS: No enlarged nodes. No history of splenectomy. PSYCHIATRIC: + history of depression or anxiety. ENDOCRINOLOGIC: No reports of sweating, cold or heat intolerance. No polyuria or polydipsia. ALLERGIES: No history of asthma, hives, eczema or rhinitis. Vital Signs Vital Signs Vital Signs: 12/02/20 14:04 12/02/20 16:15 12/02/20 16:35 Temperature 97.6 F L Temperature Source Temporal Pulse Rate 102 H 96 Respiratory Rate 24 H 19 H 24 H Respiratory Effort Short of Breath Respiratory Depth Normal Respiratory Pattern Normal Tachypnea Blood Pressure 180/106 H Blood Pressure Mean 130 Pulse Ox 100 100 Oxygen Delivery Method Nasal Cannula Nasal Cannula Oxygen Flow Rate (L/min) 4 4 Weight Weight: 106 lb Body Mass Index (BMI) 17.1 Physical Exam Narrative Physical Examination: General: Awake, alert, oriented x 3, seated upright in the ED bed, tripoding, increased respiratory rate, evidence of obvious respiratory distress, RT requested an immediate BiPAP being placed currently. Skin: Normal color, normal turgor, no icterus, no cyanosis except noted bilateral lower extremity venous stasis skin changes. HEENT: AT/NC, EOMI, PERRLA, dry MM, no carotid bruits or JVD noted. Lungs: Diminished, and expiratory wheezing diffusely, mildly rhonchorous, increased respiratory rate and accessory muscle usage, tripoding, 1-2 word sentence abilities, evident respiratory distress. Heart: Tachycardic with regular rhythm; no gallop, rub audible. Abdomen: Soft, thin cachectic habitus, NTTP, ND, distant normal BS, no HSM. Extremities: No cyanosis, no clubbing, mild left lower extremity swelling to the ankle, 1 pitting. Neurological: Patient awake, alert, oriented as noted, cognitive function remains intact; pupils equally reactive to light and accommodation, cranial nerves II-XII grossly normal, moving all 4 extremities, no focal deficits, strength severely global decrease secondary to acute presentation. Psychiatric: Affect appears fatigued, ill-appearing, evident respiratory distress, no acute evidence of depressive or anxiety feelings. Results Lab / Micro Data Result Diagrams: 12/02/20 16:05 12/02/20 16:05 Labs: Laboratory Results - last 24 hr 12/02/20 16:05: WBC 7.9, RBC 4.34, Hgb 13.2, Hct 39.6, MCV 91.2, MCH 30.4, MCHC 33.3, RDW Std Deviation 47.3 H, RDW Coeff of Oral 13.8, Plt Count 622 H, MPV 8.2, Immature Gran % (Auto) 0.500, Neut % (Auto) 73.2 H, Lymph % (Auto) 13.8 L, [place] % (Auto) 8.5, Eos % (Auto) 3.6, Baso % (Auto) 0.4, Absolute Neuts (auto) 5.8, Absolute Lymphs (auto) 1.09, Nucleated RBC % 0 12/02/20 16:05: Sodium 123 L, Potassium 4.0, Chloride 87 L, Carbon Dioxide 30.0, Anion Gap 6, BUN 8, Creatinine 0.28 L, Estim Creat Clear Calc 41.44, Est GFR (MDRD) Af Amer 309, Est GFR (MDRD) Non-Af 255, BUN/Creatinine Ratio 28.6 H, Glucose 103, Calcium 9.0, Troponin I High Sens 9 Micro: Microbiology 12/02/20 16:05 Nasal Secretion SARS-CoV-2 Antigen (Rapid) - Final Rhythm Strip Rhythm Strip: Sinus Rhythm Rate: 96 Ectopy: PVC(s) Radiology Impression Chest X-Ray 12/02/20 16:00 IMPRESSION: Tiny left pleural effusion with some left lower lobe pneumonia or atelectasis. Electronically Signed: Rolo Hampton MD at 16:49 EDT Tel , Service support , Assessment & Plan Assessment/Plan (1) COPD exacerbation: PLAN: The patient is a 65 y/o F w/ PMHx: Chronic Hyponatremia, Chronic COPD w/ Chronic Hypoxic Respiratory Failure (4L NC), Hx PTX requiring chest tube placements, tobacco use, HTN, HTN, GERD, Anxiety and Depression, Allergic Rhinitis who presents to the [facility] ED on 12/02/20 with history of progressively worsening dyspnea since Sunday with unchanged chronic cough with no recent fevers or chills with associated pleuritic chest discomfort especially with coughing prompting eventual ED evaluation. 1. Acute on Chronic Hypoxic Respiratory Failure secondary to Acute on Chronic COPD Exacerbation and Possible LLL Pneumonia, Lower Suspicion: Will admit to PCU as stepdown status, updated Dr. Bentley pulmonary/pediatric licensed practical nurse about patient and concerns, will immediately placed on BiPAP with ABG as discussed with RT with repeat as needed, if patient fails BiPAP trial will need to transition to the ICU and intubate, will have low-dose anxiolytic regimen as patient does not usually do well with BiPAP per discussion with family but she is willing to try as she would like to avoid intubation, continue ATC duonebs, PRN albuterol, maintained on IV Rocephin and Azithromycin, HOB, IS parameters w/ pending sputum cultures, respiratory viral panel and urine antigens. Procalcitonin requested. 2. Left lower extremity swelling: Patient with mild left lower extremity ankle swelling, no history of DVT or PE, duplex left lower extremity pending upon admission. 3. Chronic hyponatremia: Likely secondary to chronic EtOH abuse, admission sodium 123, baseline appears primarily mid 120s to 130, will judiciously hydrate given acute presentation however given his tobacco use history and hyponatremia, once patient clinically stable may opt to obtain CT Chest. Repeat level in AM. 4. EtOH Abuse: Patient notes routine consumption of 4-6 beers daily. Will maintain on CIWA protocol, MVI, thiamine and folic acid. Mag and Phos pending. Patient counseled on appropriate alcohol intake for her sex. 5. Hypertension: Continue home regimen including amlodipine with hold parameters as needed, PRN hydralazine. 6. Hyperlipidemia: New patient on statin therapy. 7. Severe protein calorie malnutrition: Evidenced by significantly reduced BMI, muscle and fat loss, nutrition consulted. 8. Anxiety and depression: We will continue patient home citalopram regimen. 9. GERD: We will continue patient on PPI. 10. DVT prophylaxis: SCDs, Lovenox. 11. CODE status: Patient does not have healthcare power of senior attorney nor living will in place. Given acute presentation with obvious significant hypoxic respiratory failure and distress, discussed CODE status at length including difference between FULL code, DNR-CCA and DNR-CC status. Following discussions about the differences in these status, requested Full Code. Patient is amenable to BiPAP trial prior to intubation. Advanced Care Planning Face to Face Time: 16 minutes. Charges/Coding Visit Charges Inpatient E&M: 84822 Init Hosp L3 Procedures Hospitalists Procedures: 12856 Advncd Care Plan 30 Min
--- NOTE | 2020-12-02 17:09 | NURSING ---
PCU WHITE COPD FLARE, HYPONATREMIA
--- NOTE | 2020-12-02 17:12 | US_ITS ---
STUDY: VENOUS DOPPLER ULTRASOUND - LEFT LOWER EXTREMITY REASON FOR EXAM: Female, 65 years old. undefined -- SOB TECHNIQUE: Ultrasound evaluation of the deep vein system to include presley-scale imaging and compression was performed. Presley-scale imaging and Doppler sonographic evaluation, including duplex spectral analysis and qualitative color flow sonography, was performed. COMPARISON: None. FINDINGS: Common Femoral Vein: Normal compression, spontaneity and augmentation. Normal color Doppler. Common Femoral Vein/Greater Saphenous Junction: Normal compression, spontaneity and augmentation. Normal color Doppler. Deep Femoral Vein: Normal compression, spontaneity and augmentation. Normal color Doppler. Femoral Proximal: Normal compression, spontaneity and augmentation. Normal color Doppler. Femoral Middle: Normal compression, spontaneity and augmentation. Normal color Doppler. Femoral Distal: Normal compression, spontaneity and augmentation. Normal color Doppler. Popliteal Vein: Normal compression, spontaneity and augmentation. Normal color Doppler. Posterior Tibial Vein: Normal compression, spontaneity and augmentation. Normal color Doppler. Peroneal Vein: Normal compression, spontaneity and augmentation. Normal color Doppler. US/Venous Duplex Imag/Limited/Uni IMPRESSION: Normal venous Doppler ultrasound of the lower extremity. Electronically Signed: Omar Irby MD at 19:23 EDT , Service support ,
[2020-12-02] MEDS: MethylPREDNISolone 125 MG/2 ML Vial IV (17:56)
[2020-12-02 18:05] LABS: Allen Test Positive; Base Excess 0 mmol/L (-2 to +2); Bicarbonate 25.7 mmol/L (22-26); Blood Gas Specimen Type ART; FI02 35; O2 Delivery Device BiPAP; PO2 122 mmHG (75-100); SITE L Radial; SO2 99 % (95-99); Total Carbon Dioxide 27 mmol/L; pH 7.37 (7.35-7.45)
[2020-12-02] MEDS: Ceftriaxone 1 GM/50 ML BAG IV (18:33)
[2020-12-02 18:38] LABS: Amphetamine Urine VISTA POSITIVE (<1000 ng/mL); Barbiturate Urine VISTA NEGATIVE (< 200 ng/mL); Benzodiazepine Urine VISTA NEGATIVE (< 200 ng/mL); Cocaine Urine VISTA NEGATIVE (< 300 ng/mL); Ecstacy Urine VISTA NEGATIVE (< 500 ng/mL); Methadone Urine VISTA NEGATIVE (< 300 ng/mL); PCP Urine VISTA NEGATIVE (< 25 ng/mL); THC Urine VISTA NEGATIVE (< 50 ng/mL); Vista UDS pH Range 7
[2020-12-02 18:44] LABS: Phosphorus 3.4 mg/dL (2.5-4.9)
[2020-12-02] MEDS: MELATONIN 3 MG TABLET PO (20:51)
[2020-12-02] MEDS: Gabapentin 300 MG Capsule PO (20:52)
[2020-12-02] MEDS: Atorvastatin Calcium 10 MG Tablet PO (20:52)
[2020-12-02] MEDS: 0.9% Saline Lock 10 ML Syringe IV (20:52)
[2020-12-02] MEDS: 0.9% Normal Saline 1,000 ML 100 ML IV (20:52)
[2020-12-02] MEDS: hydrALAZINE 20 MG/ML Vial 10 MG IV (20:53)
[2020-12-02 23:08] LABS: Procalcitonin < 0.04 ng/mL (0.00-0.09)
--- NOTE | 2020-12-02 23:35 | CPS ---
Pt.'s showing no signs of respiratory distress at this time. I asked pt. if she'd like to be put on BiPAP throughouth the night, but she politely refused. Pt.'s breathing much more stable than earlier, and she is currently resting comfortably.
[2020-12-03] VITALS (21 sets, daily range): BP systolic 114–161; BP diastolic 71–102; PULSE 88–125; RESP 12–28; TEMP 36.4–37.6; O2SAT 94–100
[2020-12-03] MEDS: 0.9% Normal Saline 1,000 ML 100 ML IV (05:18)
[2020-12-03 06:35] LABS: Absolute Lymphocyte Count 0.36 X10^3/uL (0.83-4.51); Absolute Neutrophil Count 1.7 X10^3/uL (2.0-7.7); Hematocrit 36.1 % (37-47); Lymphocyte # 0.36 X10^3/ul (0.83-4.51); Lymphocyte % 17.3 % (19-41); Mean Corp Hgb Conc 33.2 g/dL (32-36); Mean Corpuscular Hgb 30.3 pg (27.0-32.0); Mean Corpuscular Volume 91.2 fL (81-99); Mean Platelet Vol. 8.7 fl (6.2-12.0); Monocyte# 0.03 X10^3/uL; Monocyte% 1.4 % (0-10); NRBC Flagged by Analyzer 0 % (0-5); Neutrophil # 1.68 X10^3/uL (2.7-7.7); Neutrophil % 80.8 % (47-70); POSITIVE DIFFERENTIAL YES; Platelet Count 587 K/mm3 (150-450); RBC Distribution Width CV 13.8 % (11.6-14.6); RBC Distribution Width SD 46.8 fl (35.1-43.9); Red Blood Count 3.96 M/mm3 (4.2-5.4); White Blood Count 2.1 K/mm3 (4.4-11.0)
[2020-12-03 06:41] LABS: Differential Indicated SCAN CRITERIA MET
[2020-12-03] MEDS: Ipratropium/Albuterol Sulfate 3 ML AMPUL.NEB INHALATION ×3 (06:50→19:42)
[2020-12-03 07:02] LABS: ALB/GLOB Ratio 0.9 RATIO (0.9-2.4); AST(SGOT) 9 U/L (15-37); Alanine Aminotransfer ALT/SGPT 22 U/L (13-56); Albumin, Serum 3.1 g/dL (3.2-5.0); Alkaline Phosphatase 80 U/L (45-117); Anion Gap 9 (5-15); BUN 11 mg/dL (7-18); BUN/Creat Ratio 37.7 RATIO (10-20); Calcium,Total 8.5 mg/dL (8.5-10.1); Chloride 92 mmol/L (98-107); Creatinine, Serum 0.29 mg/dL (0.55-1.02); EST Glomerular Filtration Rate 243 mL/min (>60); Est Glom Filt Rate - Afr Amer 294 mL/min (>60); Estimated Creatinine Clearance 42.66 ml/min; Globulin 3.5 g/dL (2.2-4.2); Glucose 153 mg/dL (74-106); Potassium 3.6 mmol/L (3.5-5.1); Protein, Total 6.6 g/dL (6.4-8.2); Sodium Level 126 mmol/L (136-145)
--- NOTE | 2020-12-03 08:06 | EX.PCM.CONCC ---
Assessment & Plan Assessment/Plan (1) COPD exacerbation: PLAN: RECOMMENDATIONS: 1. Consider broadening antimicrobials, given that the patient was admitted to the hospital within the last 90 days. 2. Continue scheduled bronchodilator therapy and IV steroids. 3. Wean supplemental oxygen as tolerated. 4. Encourage incentive spirometer use and mobilize patient as tolerated. 5. Nicotine replacement therapy can be offered to the patient. 6. Outpatient pulmonary follow-up within 2 weeks of discharge is recommended. IMPRESSIONS: 1. Acute on chronic hypoxemic respiratory failure The patient has known moderately severe obstructive lung disease and an extensive smoking history. She does continue to smoke cigarettes daily. Given that the patient was just hospitalized in October and has a questionable infiltrate on chest imaging, I would recommend that her antimicrobials be broadened. She will be continued on scheduled bronchodilator therapy along with IV steroids. Continue to wean supplemental oxygen as tolerated. BiPAP therapy can be utilized as needed. Resume triple therapy inhaler regimen at discharge. 2. Chronic tobacco dependency I personally spent 4 minutes discussing the deleterious effects of continued tobacco use with the patient, including modalities which could be utilized to achieve a smoke-free lifestyle. Nicotine replacement therapy can be utilized while the patient is admitted to the hospital. Recommend outpatient yearly low-dose CT screening. 3. Hypertension/hyperlipidemia/GERD/neuropathy Complicates care, management, recovery and prognosis. Continue home medications as indicated. This note was generated with [employer] dictation software. It may contain incorrect words, spelling, and punctuation that were not noted in checking the note before signing. HPI Consult Data Date of Consult: 12/03/20 HPI Narrative Reason for Consultation: COPD exacerbation HPI Narrative: The patient is a 65-year-old female, with a history as outlined below, who presented to the emergency department on December 02 with progressive dyspnea. The patient was just recently admitted to the hospital on October 25 through October 28, during which time, she was treated for a COPD exacerbation. The patient has a known history of moderately severe obstructive lung disease based upon pulmonary function studies completed in November 2019. She does have an extensive smoking history and continues to smoke 0.5 packs of cigarettes per day. The patient has been seen on one occasion in the pulmonary medicine clinic in December 2019. She has been lost to follow-up since that time. She was placed on Trelegy Ellipta and as needed albuterol. On presentation to the emergency department, the patient was noted to be afebrile but was hypertensive with a blood pressure of 180/106 mmHg. She was initially documented to be saturating well on 4 L/min via nasal cannula. Initial laboratory evaluation revealed no evidence of a leukocytosis. Platelet count was elevated to 622,000. Chemistry profile was notable for a sodium of 123, chloride of 87 and creatinine of 0.28. Toxicology screen was positive for amphetamine. Ultimately, the patient developed worsening in her respiratory status throughout her ED course and had to be placed on BiPAP therapy. Arterial blood gas obtained while on BiPAP revealed a pH of 7.37, PCO2 of 44 and PO2 of 122. Chest x-ray demonstrated possible left lower lobe pneumonia. Rapid coronavirus antigen testing was negative. The patient was placed on antimicrobials, scheduled bronchodilators and IV steroids. She was subsequently admitted to the progressive care unit for further management. As of this morning, the patient has been weaned to 2 L/min of supplemental oxygen via nasal cannula. [facility] Medical History Allergic rhinitis Anxiety Back pain Chronic bronchitis Chronic hyponatremia Chronic respiratory failure with hypoxia COPD (chronic obstructive pulmonary disease) Depression Dysphagia Emphysema of lung Hypertension Insomnia Smoker Home Medications citalopram 20 mg PO DAILY 10/13/15 [History Last Taken 10/24/20] omeprazole 40 mg PO DAILY 10/13/15 [History Last Taken 10/24/20] amlodipine 2.5 mg tablet 2.5 mg PO DAILY 11/12/18 [History Last Taken 10/24/20] cyclobenzaprine 10 mg tablet 10 mg PO TID PRN 11/12/18 [History Last Taken 10/24/20] gabapentin 300 mg capsule 300 mg PO BID 11/12/18 [History Last Taken 10/24/20] albuterol sulfate 2 puff INHALATION Q4H PRN PRN #1 inhaler 12/20/19 [Rx Last Taken Unknown] [id number]-nsrrozcsa-hqdbcigi 1 ea IH DAILY #1 blst.w.dev 12/20/19 [Rx Last Taken 10/24/20] atorvastatin 10 mg PO QHS 10/25/20 [History Last Taken 10/24/20] ibuprofen 800 mg PO TID PRN 10/25/20 [History Last Taken 10/24/20] Allergy/AdvReac Type Severity Reaction Status Date / Time bupropion [From Wellbutrin] Allergy Severe hallucinati Verified 12/02/20 14:07 ons Family History (Updated 12/02/20 @ 17:[address] Radha Steve MD) Mother Heart disease Hypertension CAD (coronary artery disease) Other No pertinent family history Surgical History (Updated 12/02/20 @ 17:[address] Radha Steve MD) S/P chest tube placement Social History (Updated 12/02/20 @ 17:[address] Radha Steve MD) household members: significant other history of recent travel: No Smoking Status: Current every day smoker tobacco type: cigarettes Smoking packs per day: 0.5 Smoking cigarettes per day: 10.0 quit status: considering quitting counseling given: provider counseling and counseling >10 minutes alcohol intake: current alcohol intake frequency: 3 or more drinks per day Alcohol type: beer details: 4-6 beers daily. substance use type: does not use ROS Constitutional Constitutional: Denies chills, fatigue or fever(s) Eyes Eyes: Denies blurry vision or change in vision ENT HEENT: Denies dizziness, dysphagia, loss taste/smell, nasal congestion or nasal discharge Cardiovascular Cardiovascular: Reports dyspnea; Denies chest pain Respiratory/Chest Respiratory/Chest: Reports cough, dyspnea and wheezing Gastrointestinal Gastrointestinal: Denies abdominal pain, diarrhea, nausea or vomiting Genitourinary Genitourinary: Denies difficulty urinating Musculoskeletal Musculoskeletal: Denies arthralgias Integumentary Integumentary: Denies lesions, rash or skin ulcer Neurologic Neurologic: Denies abnormal gait or abnormal speech Psychiatric Psychiatric: Reports anxiety and depression Endocrine Endocrinology: Denies fatigue Hematologic/Lymphatic Hematologic/Lymphatic: Denies easy bleeding or easy bruising Physical Exam Const alert General Appearance: cooperative and frail HEENT normocephalic, head/scalp atraumatic and moist oral mucous membranes Eyes PERRL, EOMs intact bilaterally and conjunctivae normal Neck supple General: trachea midline Chest inspection of chest normal Chest Narrative: Increased AP diameter Resp Resp Narrative: Globally diminished air movement bilaterally. Bilateral expiratory wheezes present. Mild conversational dyspnea present Cardio regular rate and regular rhythm GI normal to inspection, nondistended, normoactive bowel sounds Extremity no clubbing, cyanosis or edema Skin no rashes or lesions noted Neuro CN's II-XII intact bilaterally and no focal motor deficits Psych cooperative and affect normal Lab / Micro Data Result Diagrams: 12/03/20 06:00 12/03/20 06:00 Labs: Laboratory Results - last 24 hr 12/02/20 16:05: WBC 7.9, RBC 4.34, Hgb 13.2, Hct 39.6, MCV 91.2, MCH 30.4, MCHC 33.3, RDW Std Deviation 47.3 H, RDW Coeff of Oral 13.8, Plt Count 622 H, MPV 8.2, Immature Gran % (Auto) 0.500, Neut % (Auto) 73.2 H, Lymph % (Auto) 13.8 L, [place] % (Auto) 8.5, Eos % (Auto) 3.6, Baso % (Auto) 0.4, Absolute Neuts (auto) 5.8, Absolute Lymphs (auto) 1.09, Nucleated RBC % 0 12/02/20 16:05: Sodium 123 L, Potassium 4.0, Chloride 87 L, Carbon Dioxide 30.0, Anion Gap 6, BUN 8, Creatinine 0.28 L, Estim Creat Clear Calc 41.44, Est GFR (MDRD) Af Amer 309, Est GFR (MDRD) Non-Af 255, BUN/Creatinine Ratio 28.6 H, Glucose 103, Calcium 9.0, Troponin I High Sens 9 12/02/20 16:05: Phosphorus 3.4, Magnesium 2.0 12/02/20 17:42: Urine Opiates Screen NEGATIVE, Urine Methadone Screen NEGATIVE, Ur Barbiturates Screen NEGATIVE, Ur Phencyclidine Scrn NEGATIVE, Ur Amphetamines Screen POSITIVE H, U Methamphetamin-MDMA NEGATIVE, U Benzodiazepines Scrn NEGATIVE, Urine Cocaine Screen NEGATIVE, U Cannabinoids Screen NEGATIVE, Ur Drug Screen Comment 12/02/20 19:30: Ethyl Alcohol 3.0 12/02/20 19:30: Procalcitonin < 0.04 12/03/20 06:00: WBC 2.1 L, RBC 3.96 L, Hgb 12.0, Hct 36.1 L, MCV 91.2, MCH 30.3, MCHC 33.2, RDW Std Deviation 46.8 H, RDW Coeff of Oral 13.8, Plt Count 587 H, MPV 8.7, Immature Gran % (Auto) 0.500, Neut % (Auto) 80.8 H, Lymph % (Auto) 17.3 L, [place] % (Auto) 1.4, Eos % (Auto) 0.0, Baso % (Auto) 0.0, Absolute Neuts (auto) 1.7 L, Absolute Lymphs (auto) 0.36 L, Nucleated RBC % 0, Diff Path Review July12/03/20 06:00: Sodium 126 L, Potassium 3.6, Chloride 92 L, Carbon Dioxide 25.0, Anion Gap 9, BUN 11, Creatinine 0.29 L, Estim Creat Clear Calc 42.66, Est GFR (MDRD) Af Amer 294, Est GFR (MDRD) Non-Af 243, BUN/Creatinine Ratio 37.7 H, Glucose 153 H, Calcium 8.5, Total Bilirubin 0.70, AST 9 L, ALT 22, Alkaline Phosphatase 80, Total Protein 6.6, Albumin 3.1 L, Globulin 3.5, Albumin/Globulin Ratio 0.9 Micro: Microbiology 12/02/20 19:43 Mucosa - Nose Respiratory Panel (PCR) - Final 12/02/20 17:42 Urine Catheter - Catheter Legionella Antigen - Final 12/02/20 17:42 Urine Catheter - Catheter Streptococcus pneumoniae Antigen (M - Final 12/02/20 16:05 Nasal Secretion SARS-CoV-2 Antigen (Rapid) - Final ABG Data ABG results: ABG 12/02/20 18:02 Specimen Type ART Sample Site L Radial pH 7.37 Bicarbonate Actual 25.7 Total CO2 27 Base Excess 0 O2 Saturation 99 O2 % 35 ABG pCO2 44.0 ABG pO2 122 H [place] Test Positive O2 Delivery Device BiPAP Rhythm Strip Rhythm Strip: Sinus Rhythm Rate: 96 Ectopy: PVC(s) Radiology Impression Chest X-Ray 12/02/20 16:00 IMPRESSION: Tiny left pleural effusion with some left lower lobe pneumonia or atelectasis. Electronically Signed: Rolo Hampton MD at 16:49 EDT Tel , Service support , Venous Duplex 12/02/20 17:12 IMPRESSION: Normal venous Doppler ultrasound of the lower extremity. Electronically Signed: Omar Irby MD at 19:23 EDT , Service support , Charges/Coding Visit Charges Inpatient E&M: 10044 Init Hosp L3 Behavior Interventions Behavior Intervention: 39943 Smoking Cessation 3-10 min
[2020-12-03] MEDS: Multivitamins,Ther W-Minerals Tablet 1 TABLET PO (09:15)
[2020-12-03] MEDS: Enoxaparin 40 MG/0.4 ML Syringe SC (09:15)
[2020-12-03] MEDS: Pantoprazole Sodium 40 MG Tablet PO (09:15)
[2020-12-03] MEDS: Citalopram 20 MG Tablet PO (09:15)
[2020-12-03] MEDS: Thiamine Hydrochloride 100 MG Tablet PO ×2 (09:15→17:12)
[2020-12-03] MEDS: amLODIPine 2.5 MG Tablet PO (09:15)
[2020-12-03] MEDS: Gabapentin 300 MG Capsule PO ×2 (09:15→19:54)
[2020-12-03] MEDS: Folic Acid 1 MG Tablet PO (09:15)
[2020-12-03] MEDS: Ceftriaxone 1 GM/50 ML BAG IV (10:26)
--- NOTE | 2020-12-03 11:10 | CASEMGMT ---
RN ELBERT Face to Face with patient for initial transition planning/care coordination assessment. RN CM introduced self and role at [facility]. Patient lying in bed, alert and oriented, granddaughter at bedside. Patient willing to participate in assessment and is able to answer all questions appropriately. Care providers, pharmacy, and demographics verified. Patient wishes to discharge home, denies need for home health at this time. Patient states she has no further needs or concerns at this time. CM to follow for discharge planning needs that may arise. PCP: Jose Specialists: Calvin telephony engineer Preferred Pharmacy: [facility] Insurance: LESLEY Russ Prescription Benefit: yes Living Will/HPOA: yes, significant other Dylan Winter HPOA LNOK: significant other, granddaughter Living Arrangements: Patient lives with significant other and grandson in a 2 story home with bed and bath on first floor. Patient states she is still independent at home. Transportation: granddaughter DME/HHC: Patient states she has walker, nebulizer, and home oxygen at 3-6 lpm through [employer] with portability. Patient states she has had [facility]HC in the past. Patient states she smoke 1 PPD of cigarettes per day. CM discuss Tobacco cessation program at [facility], patient interested in information. Respiratory services updated regarding request. Disposition Plan: Patient to discharge home with family support and follow-up plans in place. Alise HERRERA, RN, CM
[2020-12-03] MEDS: Albuterol 2.5 MG/3 ML VIAL.NEB. INHALATION (13:18)
[2020-12-03] MEDS: 0.9% Saline Lock 10 ML Syringe IV (13:19)
--- NOTE | 2020-12-03 14:29 | PN.HOSP_ITS ---
Documented by User: Verenice Eduardo NP, SPLITTING MACHINE FEEDER-C 12/03/20 14:40 Subjective Subjective Patient seen and examined. Reports improvement in breathing. Low-grade fever this morning. Reports intermittent nonproductive cough. Objective Data Objective Data Vital Signs: Vital Signs Temp Pulse Resp BP Pulse Ox 99.6 F H 120 H 28 H 125/74 H 96 12/03/20 13:20 12/03/20 13:20 12/03/20 13:20 12/03/20 13:20 12/03/20 13:20 Oxygen Flow Rate (L/min) 2 Oxygen Delivery Method Nasal Cannula Weight: 109 lb 2.061 oz Body Mass Index (BMI) 17.6 Intake & Output: Intake and Output for Last 24 Hours 12/01/20 12/02/20 12/03/20 23:59 23:59 23:59 Intake Total 527 / 527 2396.66 / 2396.66 Output Total 600 / 600 Balance -73 / -73 2396.66 / 2396.66 Lab / Micro Data Result Diagrams: 12/03/20 06:00 12/03/20 06:00 Labs: Laboratory Results - last 24 hr 12/02/20 16:05: WBC 7.9, RBC 4.34, Hgb 13.2, Hct 39.6, MCV 91.2, MCH 30.4, MCHC 33.3, RDW Std Deviation 47.3 H, RDW Coeff of Oral 13.8, Plt Count 622 H, MPV 8.2, Immature Gran % (Auto) 0.500, Neut % (Auto) 73.2 H, Lymph % (Auto) 13.8 L, Porter % (Auto) 8.5, Eos % (Auto) 3.6, Baso % (Auto) 0.4, Absolute Neuts (auto) 5.8, Absolute Lymphs (auto) 1.09, Nucleated RBC % 0 12/02/20 16:05: Sodium 123 L, Potassium 4.0, Chloride 87 L, Carbon Dioxide 30.0, Anion Gap 6, BUN 8, Creatinine 0.28 L, Estim Creat Clear Calc 41.44, Est GFR (MDRD) Af Amer 309, Est GFR (MDRD) Non-Af 255, BUN/Creatinine Ratio 28.6 H, Glucose 103, Calcium 9.0, Troponin I High Sens 9 12/02/20 16:05: Phosphorus 3.4, Magnesium 2.0 12/02/20 17:42: Urine Opiates Screen NEGATIVE, Urine Methadone Screen NEGATIVE, Ur Barbiturates Screen NEGATIVE, Ur Phencyclidine Scrn NEGATIVE, Ur Amphetamines Screen POSITIVE H, U Methamphetamin-MDMA NEGATIVE, U Benzodiazepines Scrn NEGATIVE, Urine Cocaine Screen NEGATIVE, U Cannabinoids Screen NEGATIVE, Ur Drug Screen Comment 12/02/20 19:30: Ethyl Alcohol 3.0 12/02/20 19:30: Procalcitonin < 0.04 12/03/20 06:00: WBC 2.1 L, RBC 3.96 L, Hgb 12.0, Hct 36.1 L, MCV 91.2, MCH 30.3, MCHC 33.2, RDW Std Deviation 46.8 H, RDW Coeff of Oral 13.8, Plt Count 587 H, MPV 8.7, Immature Gran % (Auto) 0.500, Neut % (Auto) 80.8 H, Lymph % (Auto) 17.3 L, Porter % (Auto) 1.4, Eos % (Auto) 0.0, Baso % (Auto) 0.0, Absolute Neuts (auto) 1.7 L, Absolute Lymphs (auto) 0.36 L, Nucleated RBC % 0, Diff Path Review N/A 12/03/20 06:00: Sodium 126 L, Potassium 3.6, Chloride 92 L, Carbon Dioxide 25.0, Anion Gap 9, BUN 11, Creatinine 0.29 L, Estim Creat Clear Calc 42.66, Est GFR (MDRD) Af Amer 294, Est GFR (MDRD) Non-Af 243, BUN/Creatinine Ratio 37.7 H, Glucose 153 H, Calcium 8.5, Total Bilirubin 0.70, AST 9 L, ALT 22, Alkaline Phosphatase 80, Total Protein 6.6, Albumin 3.1 L, Globulin 3.5, Albumin/Globulin Ratio 0.9 Micro: Microbiology 12/02/20 19:43 Mucosa - Nose Respiratory Panel (PCR) - Final 12/02/20 17:42 Urine Catheter - Catheter Legionella Antigen - Final 12/02/20 17:42 Urine Catheter - Catheter Streptococcus pneumoniae Antigen (M - Final 12/02/20 16:05 Nasal Secretion SARS-CoV-2 Antigen (Rapid) - Final ABG Data ABG results: ABG 12/02/20 18:02 Specimen Type ART Sample Site L Radial pH 7.37 Bicarbonate Actual 25.7 Total CO2 27 Base Excess 0 O2 Saturation 99 O2 % 35 ABG pCO2 44.0 ABG pO2 122 H Ronan Test Positive O2 Delivery Device BiPAP Radiography Diagnostic Testing: Radiology Impression Chest X-Ray 12/02/20 16:00 IMPRESSION: Tiny left pleural effusion with some left lower lobe pneumonia or atelectasis. Electronically Signed: Rolo Hampton MD at 16:49 EDT Tel , Service support , Venous Duplex 12/02/20 17:12 IMPRESSION: Normal venous Doppler ultrasound of the lower extremity. Electronically Signed: Omar Irby MD at 19:23 EDT , Service support , Rhythm Strip Rhythm Strip: Sinus Rhythm Rate: 96 Ectopy: PVC(s) Physical Exam Const alert, oriented x3 and no apparent distress Orientation / Consciousness: awake, oriented to person, oriented to place and oriented to time Nutritional Appearance: cachectic HEENT normocephalic and moist oral mucous membranes Eyes PERRL, EOMs intact bilaterally and conjunctivae normal Neck no lymphadenopathy Resp Auscultation: wheezes and diminished lung sounds Cardio regular rate, regular rhythm and no murmurs Peripheral Pulses: pulses 2+ throughout GI normal to inspection, nondistended, normoactive bowel sounds, non-tender and non-distended Extremity normal to inspection Skin no rashes or lesions noted Lesions: no lesions Rashes: no rashes Trauma: no lacerations or abrasions Neuro CN's II-XII intact bilaterally, no focal motor deficits, no sensory deficits noted and deep tendon reflexes 2+ bilaterally Psych mental status grossly normal and affect normal Assessment & Plan Assessment/Plan (1) COPD exacerbation: PLAN: 1. Acute on chronic hypoxic respiratory failure secondary to exacerbation of COPD and left lower lobe pneumonia-pulmonary medicine following. Chest x-ray shows small left pleural effusion, left lower lobe pneumonia versus atelectasis. Albuterol and DuoNeb aerosols. BiPAP as needed. Continue supplement oxygen to maintain O2 at above 90%. IV Solu-Medrol. Respiratory panel and Covid negative. Sputum culture pending. IV azithromycin and IV Rocephin empirically. 2. Chronic hyponatremia, likely secondary to chronic alcohol use-IV fluids, trend BMP. 3. Chronic alcohol use-CIWA protocol. Multivitamin, thiamine and folic acid supplementation. 4. Hypertension-stable, continue amlodipine. 5. Hyperlipidemia-continue statin. 6. Severe protein calorie nutrition-as evidenced by reduced BMI, cachectic appearance. Dietitian consult. 7. Anxiety/depression- on citalopram. 8. GERD-continue PPI. 9. Tobacco dependence-continued use. Encouraged cessation. DVT prophylaxis-Lovenox This patient was seen by JOSE Moore under the supervision of Dr. Scott. Documented by User: Dr. Kana Scott MD 12/03/20 15:03 Subjective Subjective Patient still smokes half pack daily. Heart rate in 120s. Mild low-grade fever, T-max 99.6 Fahrenheit Objective Data Lab / Micro Data Result Diagrams: 12/03/20 06:00 12/03/20 06:00 Physical Exam Narrative General: Alert, Oriented x3, Cooperative, cachectic appearance HEENT: Atraumatic, PERRLA, EOMI, Normocephalic Oral: No Gingival or Mucosal Lesions/ Ulcerations Neck: Supple, No JVD, Negative Carotid Bruits Lungs: Air entry severely diminished in bilateral lung bases. Bilateral expiratory rhonchi Cardiovascular: Regular rate, Regular Rhythm, Normal S1, Normal S2, No murmurs Abdomen: Bowel Sounds Present, Soft, Non Tender, Non-Distended : No renal angle tenderness. No suprapubic tenderness. Extremities: No edema, Capillary Refill Less than 3 Seconds Skin: No rashes, No breakdown Musculoskeletal: Mild to moderate atrophy of muscles in extremities. No Tenderness to Palpation of Joints or Extremities Neurological: Cranial nerves II-XII grossly intact, DTR 2+/4 and Symmetrical, Neuro grossly intact Psych/Mental Status: Normal Affect, Appropriate. Assessment & Plan Assessment/Plan (1) COPD exacerbation: PLAN: This patient was seen in conjunction with Verenice NOBLE. I have independently interviewed and examined the patient and reviewed pertinent history, examination findings, laboratory and plan of management. I have reviewed the note and agree with the documented findings with the few additional points. In brief, patient is admitted for acute on chronic hypoxic respiratory failure secondary to COPD exacerbation. Since patient also has left lower lobe pneum onia probably exacerbating factor. Patient on bronchodilator, IV Solu-Medrol and antibiotic Rocephin and Zithromax. Other comorbidities as mentioned above I have discussed my assessment with Verenice NOBLE and orders have been reviewed. Charges/Coding Visit Charges Inpatient E&M: 77436 Subs Hosp L2
--- NOTE | 2020-12-03 15:04 | CASEMGMT ---
Call to [facility] and per Deepti, pt's home oxygen order is for 3L at rest and 6L w/ exertion. Pt is currently on 2L nc. Green sheet on chart for increased O2 need. Yovana GARCIA CM
[2020-12-03] MEDS: Atorvastatin Calcium 10 MG Tablet PO (19:54)
[2020-12-04] VITALS (14 sets, daily range): BP systolic 117–138; BP diastolic 73–86; PULSE 82–118; RESP 12–23; TEMP 36.6–36.9; O2SAT 95–99
[2020-12-04] MEDS: Ipratropium/Albuterol Sulfate 3 ML AMPUL.NEB INHALATION ×4 (07:00→21:17)
[2020-12-04 07:33] LABS: Absolute Lymphocyte Count 0.42 X10^3/uL (0.83-4.51); Absolute Neutrophil Count 13.6 X10^3/uL (2.0-7.7); Basophil# 0.02 X10^3/uL; Basophil% 0.1 % (0-1); Hematocrit 33.6 % (37-47); Lymphocyte # 0.42 X10^3/ul (0.83-4.51); Lymphocyte % 2.9 % (19-41); Mean Corp Hgb Conc 32.7 g/dL (32-36); Mean Corpuscular Hgb 30.2 pg (27.0-32.0); Mean Corpuscular Volume 92.3 fL (81-99); Mean Platelet Vol. 8.8 fl (6.2-12.0); Monocyte# 0.26 X10^3/uL; Monocyte% 1.8 % (0-10); NRBC Flagged by Analyzer 0 % (0-5); Neutrophil # 13.57 X10^3/uL (2.7-7.7); Neutrophil % 94.7 % (47-70); POSITIVE DIFFERENTIAL YES; Platelet Count 558 K/mm3 (150-450); RBC Distribution Width CV 14.6 % (11.6-14.6); Red Blood Count 3.64 M/mm3 (4.2-5.4); White Blood Count 14.3 K/mm3 (4.4-11.0)
[2020-12-04 07:55] LABS: Differential Indicated SCAN CRITERIA MET
[2020-12-04 07:56] LABS: Anion Gap 8 (5-15); BUN 25 mg/dL (7-18); BUN/Creat Ratio 56.6 RATIO (10-20); Calcium,Total 8.5 mg/dL (8.5-10.1); Chloride 98 mmol/L (98-107); Creatinine, Serum 0.44 mg/dL (0.55-1.02); EST Glomerular Filtration Rate 151 mL/min (>60); Est Glom Filt Rate - Afr Amer 182 mL/min (>60); Estimated Creatinine Clearance 42.23 ml/min; Glucose 123 mg/dL (74-106); Potassium 4.3 mmol/L (3.5-5.1); Sodium Level 131 mmol/L (136-145)
--- NOTE | 2020-12-04 08:09 | PCS.PANDOC ---
PANDEMIC DOCUMENTATION INITIATED: Date: 12/02/2020 Time: 1850
--- NOTE | 2020-12-04 09:23 | PN.CC_ITS ---
Assessment & Plan Assessment/Plan (1) COPD exacerbation: PLAN: RECOMMENDATIONS: 1. Consider broadening antimicrobials, given that the patient was admitted to the hospital within the last 90 days. 2. Continue scheduled bronchodilator therapy and IV steroids. 3. Wean supplemental oxygen as tolerated. 4. Encourage incentive spirometer use and mobilize patient as tolerated. 5. Nicotine replacement therapy can be offered to the patient. 6. Outpatient pulmonary follow-up within 2 weeks of discharge is recommended. IMPRESSIONS: 1. Acute on chronic hypoxemic respiratory failure The patient has known moderately severe obstructive lung disease and an extensive smoking history. She does continue to smoke cigarettes daily. Given that the patient was just hospitalized in October and has a questionable infiltrate on chest imaging, I would recommend that her antimicrobials be broadened. She will be continued on scheduled bronchodilator therapy along with IV steroids. Continue to wean supplemental oxygen as tolerated. BiPAP therapy can be utilized as needed. Resume triple therapy inhaler regimen at discharge. 2. Chronic tobacco dependency Tobacco cessation counseling was provided. Nicotine replacement therapy can be utilized while the patient is admitted to the hospital. Recommend outpatient y early low-dose CT screening. 3. Hypertension/hyperlipidemia/GERD/neuropathy Complicates care, management, recovery and prognosis. Continue home medications as indicated. This note was generated with [employer] dictation software. It may contain incorrect words, spelling, and punctuation that were not noted in checking the note before signing. Subjective Subjective The patient was seen and examined at the bedside this morning. Events from the last 24 hours have been reviewed. The patient is currently afebrile, hemodynamically stable and maintaining appropriate oxygen saturations on 2 L/min via nasal cannula. The patient remains on antimicrobials, scheduled bronchodilators and IV steroids. Respiratory status is slowly improving. Objective Data Objective Data The patient's most recent lab work, culture data and imaging studies have all been personally reviewed. Sputum culture is currently pending. Respiratory viral panel was negative. Strep and urine Legionella antigens were negative. Rapid coronavirus antigen testing was negative. Vital Signs: Vital Signs Temp Pulse Resp BP Pulse Ox 98.2 F 84 18 122/85 H 97 12/04/20 04:00 12/04/20 07:00 12/04/20 04:00 12/04/20 04:00 12/04/20 04:00 Oxygen Flow Rate (L/min) 2 Oxygen Delivery Method Bi-pap Weight: 49 kg Body Mass Index (BMI) 17.6 Intake & Output: Intake and Output for Last 24 Hours 12/02/20 12/03/20 12/04/20 23:59 23:59 23:59 Intake Total 527 / 527 2963.33 / 3113.33 150 / 150 Output Total 600 / 600 300 / 300 Balance -73 / -73 2963.33 / 3113.33 -150 / -150 Lab / Micro Data Attestation: I reviewed the patient's lab results. Result Diagrams: 12/04/20 06:40 12/04/20 06:40 Labs: Laboratory Results - last 24 hr 12/03/20 06:00: Diff Path Review N/A 12/04/20 06:40: WBC 14.3 H, RBC 3.64 L, Hgb 11.0 L, Hct 33.6 L, MCV 92.3, MCH 30 .2, MCHC 32.7, RDW Std Deviation 50.0 H, RDW Coeff of Oral 14.6, Plt Count 558 H, MPV 8.8, Immature Gran % (Auto) 0.500, Neut % (Auto) 94.7 H, Lymph % (Auto) 2.9 L, [place] % (Auto) 1.8, Eos % (Auto) 0.0, Baso % (Auto) 0.1, Absolute Neuts (auto) 13.6 H, Absolute Lymphs (auto) 0.42 L, Nucleated RBC % 0 12/04/20 06:40: Sodium 131 L, Potassium 4.3, Chloride 98, Carbon Dioxide 25.0, Anion Gap 8, BUN 25 H, Creatinine 0.44 L, Estim Creat Clear Calc 42.23, Est GFR (MDRD) Af Amer 182, Est GFR (MDRD) Non-Af 151, BUN/Creatinine Ratio 56.6 H, G lucose 123 H, Calcium 8.5 Micro: Microbiology 12/02/20 19:43 Mucosa - Nose Respiratory Panel (PCR) - Final 12/02/20 17:42 Urine Catheter - Catheter Legionella Antigen - Final 12/02/20 17:42 Urine Catheter - Catheter Streptococcus pneumoniae Antigen (M - Final 12/02/20 16:05 Nasal Secretion SARS-CoV-2 Antigen (Rapid) - Final Rhythm Strip Rhythm Strip: Sinus Rhythm Rate: 96 Ectopy: PVC(s) Physical Exam Const alert General Appearance: cooperative and frail HEENT normocephalic, head/scalp atraumatic and moist oral mucous membranes Eyes PERRL, EOMs intact bilaterally and conjunctivae normal Neck supple General: trachea midline Chest inspection of chest normal Chest Narrative: Increased AP diameter Resp Resp Narrative: Globally diminished air movement bilaterally. Bilateral residual wheezes again noted. Cardio regular rate and regular rhythm GI normal to inspection, nondistended, normoactive bowel sounds Extremity no clubbing, cyanosis or edema Skin no rashes or lesions noted Neuro CN's II-XII intact bilaterally and no focal motor deficits Psych cooperative and affect normal Charges/Coding Visit Charges Inpatient E&M: 84666 Subs Hosp L2
[2020-12-04] MEDS: Thiamine Hydrochloride 100 MG Tablet PO ×2 (10:23→16:35)
[2020-12-04] MEDS: Pantoprazole Sodium 40 MG Tablet PO (10:23)
[2020-12-04] MEDS: amLODIPine 2.5 MG Tablet PO (10:23)
[2020-12-04] MEDS: Gabapentin 300 MG Capsule PO ×2 (10:24→22:08)
[2020-12-04] MEDS: Multivitamins,Ther W-Minerals Tablet 1 TABLET PO (10:24)
[2020-12-04] MEDS: Enoxaparin 40 MG/0.4 ML Syringe SC (10:24)
[2020-12-04] MEDS: Folic Acid 1 MG Tablet PO (10:24)
[2020-12-04] MEDS: Citalopram 20 MG Tablet PO (10:24)
[2020-12-04] MEDS: Ceftriaxone 1 GM/50 ML BAG IV (10:28)
[2020-12-04] MEDS: 0.9% Saline Lock 10 ML Syringe IV ×3 (10:28→16:36)
--- NOTE | 2020-12-04 11:30 | PN.HOSP_ITS ---
Documented by User: Verenice Eduardo WOOD TILE INSTALLER, WOOD TILE INSTALLER-C 12/04/20 11:35 Subjective Subjective Patient seen and examined. Tolerated BiPAP overnight. Continues to report shortness of breath however improved from prior. Denies fever, chills. Nonproductive cough. Objective Data Objective Data Vital Signs: Vital Signs Temp Pulse Resp BP Pulse Ox 97.8 F 115 H 18 123/86 H 98 12/04/20 10:21 12/04/20 10:12/04/20 10:12/04/20 10:12/04/20 10:21 Oxygen Flow Rate (L/min) 3 Oxygen Delivery Method Nasal Cannula Weight: 108 lb 0.424 oz Body Mass Index (BMI) 17.6 Intake & Output: Intake and Output for Last 24 Hours 12/02/20 12/03/20 12/04/20 23:59 23:59 23:59 Intake Total 527 / 527 2963.33 / 3113.33 200 / 200 Output Total 600 / 600 300 / 300 Balance -73 / -73 2963.33 / 3113.33 -100 / -100 Lab / Micro Data Result Diagrams: 12/04/20 06:40 12/04/20 06:40 Labs: Laboratory Results - last 24 hr 12/03/20 06:00: Diff Path Review N/A 12/04/20 06:40: WBC 14.3 H, RBC 3.64 L, Hgb 11.0 L, Hct 33.6 L, MCV 92.3, MCH 30.2, MCHC 32.7, RDW Std Deviation 50.0 H, RDW Coeff of Oral 14.6, Plt Count 558 H, MPV 8.8, Immature Gran % (Auto) 0.500, Neut % (Auto) 94.7 H, Lymph % (Auto) 2.9 L, [place] % (Auto) 1.8, Eos % (Auto) 0.0, Baso % (Auto) 0.1, Absolute Neuts (auto) 13.6 H, Absolute Lymphs (auto) 0.42 L, Nucleated RBC % 0 12/04/20 06:40: Sodium 131 L, Potassium 4.3, Chloride 98, Carbon Dioxide 25.0, Anion Gap 8, BUN 25 H, Creatinine 0.44 L, Estim Creat Clear Calc 42.23, Est GFR (MDRD) Af Amer 182, Est GFR (MDRD) Non-Af 151, BUN/Creatinine Ratio 56.6 H, Glucose 123 H, Calcium 8.5 Micro: Microbiology 12/03/20 13:45 Sputum, Expectorated/Coughed Gram Stain - Final 12/02/20 19:43 Mucosa - Nose Respiratory Panel (PCR) - Final 12/02/20 17:42 Urine Catheter - Catheter Legionella Antigen - Final 12/02/20 17:42 Urine Catheter - Catheter Streptococcus pneumoniae Antigen (M - Final 12/02/20 16:05 Nasal Secretion SARS-CoV-2 Antigen (Rapid) - Final Rhythm Strip Rhythm Strip: Sinus Rhythm Rate: 96 Ectopy: PVC(s) Physical Exam Const alert, oriented x3 and no apparent distress Orientation / Consciousness: awake, oriented to person, oriented to place and oriented to time Nutritional Appearance: cachectic HEENT normocephalic and moist oral mucous membranes Eyes PERRL, EOMs intact bilaterally and conjunctivae normal Neck no lymphadenopathy Resp Auscultation: wheezes and diminished lung sounds Cardio regular rate, regular rhythm and no murmurs Peripheral Pulses: pulses 2+ throughout GI normal to inspection, nondistended, normoactive bowel sounds, non-tender and non-distended Extremity normal to inspection Skin no rashes or lesions noted Lesions: no lesions Rashes: no rashes Trauma: no lacerations or abrasions Neuro CN's II-XII intact bilaterally, no focal motor deficits, no sensory deficits noted and deep tendon reflexes 2+ bilaterally Psych mental status grossly normal and affect normal Assessment & Plan Assessment/Plan (1) COPD exacerbation: PLAN: 1. Acute on chronic hypoxic respiratory failure secondary to exacerbation of COPD and left lower lobe pneumonia-pulmonary medicine following. Chest x-ray shows small left pleural effusion, left lower lobe pneumonia versus atelectasis. Albuterol and DuoNeb aerosols. BiPAP as needed. Continue supplement oxygen to maintain O2 at above 90%. IV Solu-Medrol. Respiratory panel and Covid negative. Sputum culture pending. IV azithromycin and IV Rocephin empirically. 2. Chronic hyponatremia, likely secondary to chronic alcohol use-IV fluids, trend BMP. Improved. 3. Chronic alcohol use-CINY protocol. Multivitamin, thiamine and folic acid supplementation. 4. Hypertension-stable, continue amlodipine. 5. Hyperlipidemia-continue statin. 6. Severe protein calorie nutrition-as evidenced by reduced BMI, cachectic appearance. Dietitian consult. 7. Anxiety/depression- on citalopram. 8. GERD-continue PPI. 9. Tobacco dependence-continued use. Encouraged cessation. DVT prophylaxis-Lovenox This patient was seen by CLEMENCIA MooreC under the supervision of Dr. Scott. Documented by User: Dr. Kana Scott MD 12/04/20 15:25 Subjective Subjective Patient continues to be short of breath even on conversation although subjectively she feels better than yesterday. She has moderately severe obstructive ventilatory disease, COPD and continues to smoke. No fever but mild sinus tachycardia and tachypnea. Objective Data Lab / Micro Data Result Diagrams: 12/04/20 06:40 12/04/20 06:40 Physical Exam Narrative General: Alert, Oriented x3, Cooperative, cachectic appearance HEENT: Atraumatic, PERRLA, EOMI, Normocephalic Oral: No Gingival or Mucosal Lesions/ Ulcerations Neck: Supple, No JVD, Negative Carotid Bruits Lungs: Air entry severely diminished in bilateral lung bases. Bilateral expiratory rhonchi. hypoxia and tachypnea Cardiovascular: Regular rate, Regular Rhythm, Normal S1, Normal S2, No murmurs Abdomen: Bowel Sounds Present, Soft, Non Tender, Non-Distended : No renal angle tenderness. No suprapubic tenderness. Extremities: No edema, Capillary Refill Less than 3 Seconds Skin: No rashes, No breakdown Musculoskeletal: Mild to moderate atrophy of muscles in extremities. No Tenderness to Palpation of Joints or Extremities Neurological: Cranial nerves II-XII grossly intact, DTR 2+/4 and Symmetrical, Neuro grossly intact Psych/Mental Status: Normal Affect, Appropriate. Assessment & Plan Assessment/Plan (1) COPD exacerbation: PLAN: This patient was seen in conjunction with WOOD TILE INSTALLERVerenice. I have in dependently interviewed and examined the patient and reviewed pertinent history, examination findings, laboratory and plan of management. I have reviewed the note and agree with the documented findings with the few additional points. In brief, patient is admitted for acute on chronic hypoxic respiratory failure secondary to COPD exacerbation. Since patient also has left lower lobe pneumonia probably exacerbating factor. Patient on bronchodilator, IV Solu- Medrol and antibiotic Rocephin and Zithromax. Other comorbidities as mentioned above I have discussed my assessment with WOOD TILE INSTALLER, Verenice and orders have been reviewed. Charges/Coding Visit Charges Inpatient E&M: 51559 Subs Hosp L2
[2020-12-04 11:43] LABS: Differential Comment SCANNED
[2020-12-04] MEDS: Metoprolol Tartrate 25 MG Tablet PO (13:52)
[2020-12-04] MEDS: Atorvastatin Calcium 10 MG Tablet PO (22:09)
[2020-12-05] VITALS (14 sets, daily range): BP systolic 125–150; BP diastolic 69–89; PULSE 83–129; RESP 18–20; TEMP 36.6–36.7; O2SAT 95–99
[2020-12-05] MEDS: 0.9% Saline Lock 10 ML Syringe IV ×3 (05:10→13:03)
[2020-12-05] MEDS: Ipratropium/Albuterol Sulfate 3 ML AMPUL.NEB INHALATION ×4 (06:48→18:46)
[2020-12-05] MEDS: Citalopram 20 MG Tablet PO (09:43)
[2020-12-05] MEDS: Enoxaparin 40 MG/0.4 ML Syringe SC (09:44)
[2020-12-05] MEDS: Multivitamins,Ther W-Minerals Tablet 1 TABLET PO (09:44)
[2020-12-05] MEDS: Pantoprazole Sodium 40 MG Tablet PO (09:44)
[2020-12-05] MEDS: Folic Acid 1 MG Tablet PO (09:44)
[2020-12-05] MEDS: Gabapentin 300 MG Capsule PO ×2 (09:44→21:18)
[2020-12-05] MEDS: amLODIPine 2.5 MG Tablet PO (09:44)
[2020-12-05] MEDS: Thiamine Hydrochloride 100 MG Tablet PO ×2 (09:44→17:53)
--- NOTE | 2020-12-05 11:49 | PN.HOSP_ITS ---
Documented by User: Verenice Eduardo NP, PEELED POTATO INSPECTOR-C 12/05/20 11:53 Subjective Subjective Patient seen and examined. Continues to have shortness of breath above her baseline. Patient states she would like to go home however does not feel at her baseline at this point breathing king. On baseline home O2 requirements. Denies fever, chills. States she did not tolerate BiPAP overnight. Objective Data Objective Data Vital Signs: Vital Signs Temp Pulse Resp BP Pulse Ox 97.9 F 85 20 H 141/87 H 98 12/05/20 09:40 12/05/20 11:05 12/05/20 11:05 12/05/20 09:40 12/05/20 09:40 Oxygen Flow Rate (L/min) 3 Oxygen Delivery Method Nasal Cannula Weight: 108 lb 11.006 oz Body Mass Index (BMI) 17.6 Intake & Output: Intake and Output for Last 24 Hours 12/03/20 12/04/20 12/05/20 23:59 23:59 23:59 Intake Total 2963.33 / 3113.33 505 / 805 650 / 650 Output Total 300 / 800 750 / 750 Balance 2963.33 / 3113.33 205 / 5 -100 / -100 Lab / Micro Data Result Diagrams: 12/04/20 06:40 12/04/20 06:40 Micro: Microbiology 12/03/20 13:45 Sputum, Expectorated/Coughed Gram Stain - Final 12/03/20 13:45 Sputum, Expectorated/Coughed Respiratory Culture - Final Presumptive C albicans Mixed [facility] 12/02/20 19:43 Mucosa - Nose Respiratory Panel (PCR) - Final 12/02/20 17:42 Urine Catheter - Catheter Legionella Antigen - Final 12/02/20 17:42 Urine Catheter - Catheter Streptococcus pneumoniae Antigen (M - Final 12/02/20 16:05 Nasal Secretion SARS-CoV-2 Antigen (Rapid) - Final Rhythm Strip Rhythm Strip: Sinus Rhythm Rate: 96 Ectopy: PVC(s) Physical Exam Const alert, oriented x3 and no apparent distress Orientation / Consciousness: awake, oriented to person, oriented to place and oriented to time HEENT normocephalic and moist oral mucous membranes Eyes PERRL, EOMs intact bilaterally and conjunctivae normal Neck no lymphadenopathy Resp Auscultation: wheezes and diminished lung sounds Cardio regular rate, regular rhythm and no murmurs Peripheral Pulses: pulses 2+ throughout GI normal to inspection, nondistended, normoactive bowel sounds, non-tender and non-distended Extremity normal to inspection Skin no rashes or lesions noted Lesions: no lesions Rashes: no rashes Trauma: no lacerations or abrasions Neuro CN's II-XII intact bilaterally, no focal motor deficits, no sensory deficits noted and deep tendon reflexes 2+ bilaterally Psych mental status grossly normal and affect normal Assessment & Plan Assessment/Plan (1) COPD exacerbation: PLAN: 1. Acute on chronic hypoxic respiratory failure secondary to exacerbation of COPD and left lower lobe pneumonia-pulmonary medicine following. Chest x-ray shows small left pleural effusion, left lower lobe pneumonia versus atelectasis. Albuterol and DuoNeb aerosols. BiPAP as needed. Continue supplement oxygen to maintain O2 at above 90%. IV Solu-Medrol. Respiratory panel and Covid negative. Sputum culture shows presumptive C albicans, mixed mercy. IV azithromycin and IV zosyn empirically. 2. Chronic hyponatremia, likely secondary to chronic alcohol use-IV fluids, trend BMP. Improved. 3. Chronic alcohol use-CIWA protocol. Multivitamin, thiamine and folic acid supplementation. 4. Hypertension-stable, continue amlodipine. 5. Hyperlipidemia-continue statin. 6. Severe protein calorie nutrition-as evidenced by reduced BMI, cachectic appearance. Dietitian consult. 7. Anxiety/depression- on citalopram. 8. GERD-continue PPI. 9. Tobacco dependence-continued use. Encouraged cessation. DVT prophylaxis-Lovenox This patient was seen by JOSE Moore under the supervision of Dr. Scott. Documented by User: Dr. Kana Scott MD 12/05/20 13:46 Subjective Subjective Patient is still short of breath even considered simple dyspnea. Could not tolerate BiPAP Objective Data Lab / Micro Data Result Diagrams: 12/04/20 06:40 12/04/20 06:40 Physical Exam Narrative Physical exam: General: Alert, Oriented x3, Cooperative, cachectic appearance HEENT: Atraumatic, PERRLA, EOMI, Normocephalic Oral: No Gingival or Mucosal Lesions/ Ulcerations Neck: Supple, No JVD, Negative Carotid Bruits Lungs: Air entry severely diminished in bilateral lung bases. Bilateral expiratory rhonchi. Conversational dyspnea Cardiovascular: Regular rate, Regular Rhythm, Normal S1, Normal S2, No murmurs Abdomen: Bowel Sounds Present, Soft, Non Tender, Non-Distended : No renal angle tenderness. No suprapubic tenderness. Extremities: No edema, Capillary Refill Less than 3 Seconds Skin: No rashes, No breakdown Musculoskeletal: Mild to moderate atrophy of muscles in extremities. No Tenderness to Palpation of Joints or Extremities Neurological: Cranial nerves II-XII grossly intact, DTR 2+/4 and Symmetrical, Neuro grossly intact Psych/Mental Status: Normal Affect, Appropriate. Assessment & Plan Assessment/Plan (1) COPD exacerbation: PLAN: This patient was seen in conjunction with [employer] INSPECTOR[employer]erenice. I have independently interviewed and examined the patient and reviewed pertinent history, examination findings, laboratory and plan of management. I have reviewed the note and agree with the documented findings with the few additional points. In brief, patient is admitted for acute on chronic hypoxic respiratory failure secondary to COPD exacerbation. Since patient also has left lower lobe pneumonia probably exacerbating factor. Patient on bronchodilator, IV Solu- Medrol and antibiotic Rocephin and Zithromax. On BiPAP support for rescue and at night. Hyponatremia improved after IV fluid severe chronic protein malnutrition, COPD cachexia Other comorbidities as mentioned above I have discussed my assessment with PEEL[employer] POT[employer]O INSPECTORVerenice and orders have been reviewed. Charges/Coding Visit Charges Inpatient E&M: 02892 Subs Hosp L2
--- NOTE | 2020-12-05 14:17 | PN.CC_ITS ---
Assessment & Plan Assessment/Plan (1) COPD exacerbation: PLAN: RECOMMENDATIONS: 1. Anticipate treatment of 7 to 10 days with antibiotics. 2. Continue scheduled bronchodilator therapy and IV steroids. 3. Wean supplemental oxygen as tolerated. 4. Encourage incentive spirometer use and mobilize patient as tolerated. 5. Nicotine replacement therapy can be offered to the patient. 6. Outpatient pulmonary follow-up within 2 weeks of discharge is recommended. IMPRESSIONS: 1. Acute on chronic hypoxemic respiratory failure The patient has known moderately severe obstructive lung disease and an extensive smoking history. She does continue to smoke cigarettes daily. Sputum culture is negative. Continue antibiotics to complete a full course. She will be continued on scheduled bronchodilator therapy along with IV steroids. Continue to wean supplemental oxygen as tolerated. BiPAP therapy can be utilized as needed. Resume triple therapy inhaler regimen with steroid taper at discharge. Obtain a walking oximetry. If patient is able to tolerate ambulation on 6 L or less, potential discharge from a pulmonary perspective. 2. Chronic tobacco dependency Tobacco cessation counseling was provided. Nicotine replacement therapy can be utilized while the patient is admitted to the hospital. Recommend outpatient yearly low-dose CT screening. Patient is willing to follow-up with us as an outpatient 3. Hypertension/hyperlipidemia/GERD/neuropathy Complicates care, management, recovery and prognosis. Continue home medications as indicated. This note was generated with [employer] dictation software. It may contain incorrect words, spelling, and punctuation that were not noted in checking the note before signing. Subjective Subjective Patient did okay overnight. Patient subjectively feels slightly improved compared to yesterday. Patient is on her baseline nasal cannula oxygen. Patient still reporting some dyspnea on exertion. Patient has had significant wheezing noted. Cough is relatively nonproductive. Objective Data Objective Data Vital Signs: Vital Signs Temp Pulse Resp BP Pulse Ox 36.6 C 85 20 H 141/87 H 98 12/05/20 09:40 12/05/20 11:05 12/05/20 11:05 12/05/20 09:40 12/05/20 09:40 Oxygen Flow Rate (L/min) 3 Oxygen Delivery Method Nasal Cannula Weight: 49.3 kg Body Mass Index (BMI) 17.6 Intake & Output: Intake and Output for Last 24 Hours 12/03/20 12/04/20 12/05/20 23:59 23:59 23:59 Intake Total 2963.33 / 3113.33 505 / 805 1325 / 1325 Output Total 300 / 800 750 / 750 Balance 2963.33 / 3113.33 205 / 5 575 / 575 Lab / Micro Data Result Diagrams: 12/04/20 06:40 12/04/20 06:40 Micro: Microbiology 12/03/20 13:45 Sputum, Expectorated/Coughed Gram Stain - Final 12/03/20 13:45 Sputum, Expectorated/Coughed Respiratory Culture - Final Presumptive C albicans Mixed Carly 12/02/20 19:43 Mucosa - Nose Respiratory Panel (PCR) - Final 12/02/20 17:42 Urine Catheter - Catheter Legionella Antigen - Final 12/02/20 17:42 Urine Catheter - Catheter Streptococcus pneumoniae Antigen (M - Final 12/02/20 16:05 Nasal Secretion SARS-CoV-2 Antigen (Rapid) - Final Rhythm Strip Rhythm Strip: Sinus Rhythm Rate: 96 Ectopy: PVC(s) Physical Exam Const alert General Appearance: cooperative and frail HEENT normocephalic, head/scalp atraumatic and moist oral mucous membranes Eyes PERRL, EOMs intact bilaterally and conjunctivae normal Neck supple General: trachea midline Chest inspection of chest normal Chest Narrative: Increased AP diameter Resp Resp Narrative: Globally diminished air movement bilaterally. Bilateral global wheezes noted. Cardio regular rate and regular rhythm GI normal to inspection, nondistended, normoactive bowel sounds Extremity no clubbing, cyanosis or edema Skin no rashes or lesions noted Neuro CN's II-XII intact bilaterally and no focal motor deficits Psych cooperative and affect normal Charges/Coding Visit Charges Inpatient E&M: 10960 Subs Hosp L2
[2020-12-05] MEDS: Metoprolol Tartrate 25 MG Tablet PO (15:40)
[2020-12-05] MEDS: Atorvastatin Calcium 10 MG Tablet PO (21:18)
[2020-12-06] VITALS (9 sets, daily range): BP systolic 126–163; BP diastolic 87–93; PULSE 85–121; RESP 16–20; TEMP 36.5–36.6; O2SAT 84–99
--- NOTE | 2020-12-06 | CPS ---
doesn't want to wear bipap, thinks she's going home tomorrow and doesn't have a bipap at home so wants to see how she will do without it
[2020-12-06 05:57] LABS: Absolute Lymphocyte Count 0.36 X10^3/uL (0.83-4.51); Absolute Neutrophil Count 8.6 X10^3/uL (2.0-7.7); Hematocrit 33.4 % (37-47); Hemoglobin 10.9 g/dL (12.0-15.0); Lymphocyte # 0.36 X10^3/ul (0.83-4.51); Lymphocyte % 3.9 % (19-41); Mean Corp Hgb Conc 32.6 g/dL (32-36); Mean Corpuscular Hgb 30.4 pg (27.0-32.0); Mean Corpuscular Volume 93.3 fL (81-99); Mean Platelet Vol. 8.9 fl (6.2-12.0); Monocyte# 0.29 X10^3/uL; Monocyte% 3.1 % (0-10); NRBC Flagged by Analyzer 0 % (0-5); Neutrophil # 8.63 X10^3/uL (2.7-7.7); Neutrophil % 92.4 % (47-70); POSITIVE DIFFERENTIAL YES; Platelet Count 504 K/mm3 (150-450); RBC Distribution Width CV 14.7 % (11.6-14.6); RBC Distribution Width SD 51.1 fl (35.1-43.9); Red Blood Count 3.58 M/mm3 (4.2-5.4); White Blood Count 9.3 K/mm3 (4.4-11.0)
[2020-12-06 06:25] LABS: Anion Gap 5 (5-15); BUN 22 mg/dL (7-18); BUN/Creat Ratio 57.7 RATIO (10-20); Calcium,Total 8.1 mg/dL (8.5-10.1); Chloride 96 mmol/L (98-107); Creatinine, Serum 0.38 mg/dL (0.55-1.02); EST Glomerular Filtration Rate 179 mL/min (>60); Est Glom Filt Rate - Afr Amer 216 mL/min (>60); Estimated Creatinine Clearance 43.61 ml/min; Glucose 113 mg/dL (74-106); Potassium 4.7 mmol/L (3.5-5.1); Sodium Level 131 mmol/L (136-145)
[2020-12-06] MEDS: Ipratropium/Albuterol Sulfate 3 ML AMPUL.NEB INHALATION ×2 (06:50→10:23)
[2020-12-06 06:56] LABS: Differential Indicated SCAN CRITERIA MET
--- NOTE | 2020-12-06 08:40 | PN.CC_ITS ---
Assessment & Plan Assessment/Plan (1) COPD exacerbation: PLAN: RECOMMENDATIONS: 1. Anticipate treatment of 7 to 10 days with antibiotics. 2. Continue scheduled bronchodilator therapy and transition to p.o. steroids. These can be weaned over the next 12 days 3. Wean supplemental oxygen as tolerated. Diuretic challenge. 4. Encourage incentive spirometer use and mobilize patient as tolerated. 5. Nicotine replacement therapy can be offered to the patient. 6. Outpatient pulmonary follow-up within 2 weeks of discharge is recommended. IMPRESSIONS: 1. Acute on chronic hypoxemic respiratory failure The patient has known moderately severe obstructive lung disease and an extensive smoking history. She does continue to smoke cigarettes daily. Sputum culture is negative. Continue antibiotics to complete a full course. She will be continued on scheduled bronchodilator therapy along with IV steroids. Continue to wean supplemental oxygen as tolerated. Resume triple therapy inhaler regimen with steroid taper at discharge. Obtain a walking oximetry. If patient is able to tolerate ambulation on 6 L or less, potential discharge from a pulmonary perspective. We will challenge patient with Lasix therapy. 2. Chronic tobacco dependency Tobacco cessation counseling was provided. Nicotine replacement therapy can be utilized while the patient is admitted to the hospital. Recommend o utpatient yearly low-dose CT screening. Patient is willing to follow-up with us as an outpatient 3. Hypertension/hyperlipidemia/GERD/neuropathy Complicates care, management, recovery and prognosis. Continue home medications as indicated. This note was generated with [employer] dictation software. It may contain incorrect words, spelling, and punctuation that were not noted in checking the note before signing. Subjective Subjective Patient did well overnight. Patient subjectively feels much improved compared to previous. Patient reports that walking oximetry was not completed. Patient is continuing to have a cough, but has been on baseline nasal cannula oxygen. Objective Data Objective Data Vital Signs: Vital Signs Temp Pulse Resp BP Pulse Ox 36.6 C 86 19 H 163/92 H 95 12/06/20 03:17 12/06/20 07:23 12/06/20 06:52 12/06/20 03:17 12/06/20 06:52 Oxygen Flow Rate (L/min) 3 Oxygen Delivery Method Nasal Cannula Weight: 50.6 kg Body Mass Index (BMI) 17.6 Intake & Output: Intake and Output for Last 24 Hours 12/04/20 12/05/20 12/06/20 23:59 23:59 23:59 Intake Total 505 / 805 1675 / 1675 350 / 350 Output Total 300 / 800 1150 / 1150 400 / 400 Balance 205 / 5 525 / 525 -50 / -50 Lab / Micro Data Result Diagrams: 12/06/20 05:25 12/06/20 05:25 Labs: Laboratory Results - last 24 hr 12/06/20 05:25: WBC 9.3, RBC 3.58 L, Hgb 10.9 L, Hct 33.4 L, MCV 93.3, MCH 30.4, MCHC 32.6, RDW Std Deviation 51.1 H, RDW Coeff of Oral 14.7 H, Plt Count 504 H, MPV 8.9, Immature Gran % (Auto) 0.600, Neut % (Auto) 92.4 H, Lymph % (Auto) 3.9 L, [place] % (Auto) 3.1, Eos % (Auto) 0.0, Baso % (Auto) 0.0, Absolute Neuts (auto) 8.6 H, Absolute Lymphs (auto) 0.36 L, Nucleated RBC % 0 12/06/20 05:25: Sodium 131 L, Potassium 4.7, Chloride 96 L, Carbon Dioxide 30.0, Anion Gap 5, BUN 22 H, Creatinine 0.38 L, Estim Creat Clear Calc 43.61, Est GFR (MDRD) Af Amer 216, Est GFR (MDRD) Non-Af 179, BUN/Creatinine Ratio 57.7 H, Glucose 113 H, Calcium 8.1 L Micro: Microbiology 12/03/20 13:45 Sputum, Expectorated/Coughed Gram Stain - Final 12/03/20 13:45 Sputum, Expectorated/Coughed Respiratory Culture - Final Presumptive C albicans Mixed Carly 12/02/20 19:43 Mucosa - Nose Respiratory Panel (PCR) - Final 12/02/20 17:42 Urine Catheter - Catheter Legionella Antigen - Final 12/02/20 17:42 Urine Catheter - Catheter Streptococcus pneumoniae Antigen (M - Final 12/02/20 16:05 Nasal Secretion SARS-CoV-2 Antigen (Rapid) - Final Rhythm Strip Rhythm Strip: Sinus Rhythm Rate: 96 Ectopy: PVC(s) Physical Exam Const alert General Appearance: cooperative and frail HEENT normocephalic, head/scalp atraumatic and moist oral mucous membranes Eyes PERRL, EOMs intact bilaterally and conjunctivae normal Neck supple General: trachea midline Chest inspection of chest normal Chest Narrative: Increased AP diameter Resp Resp Narrative: Globally diminished air movement bilaterally. Improved air exchange compared to yesterday. Cardio regular rate and regular rhythm GI normal to inspection, nondistended, normoactive bowel sounds Extremity no clubbing, cyanosis or edema Skin no rashes or lesions noted Neuro CN's II-XII intact bilaterally and no focal motor deficits Psych cooperative and affect normal Charges/Coding Visit Charges Inpatient E&M: 68192 Subs Hosp L2
[2020-12-06] MEDS: Multivitamins,Ther W-Minerals Tablet 1 TABLET PO (10:12)
[2020-12-06] MEDS: Citalopram 20 MG Tablet PO (10:13)
[2020-12-06] MEDS: Enoxaparin 40 MG/0.4 ML Syringe SC (10:14)
[2020-12-06] MEDS: Gabapentin 300 MG Capsule PO (10:15)
[2020-12-06] MEDS: amLODIPine 2.5 MG Tablet PO (10:15)
[2020-12-06] MEDS: Pantoprazole Sodium 40 MG Tablet PO (10:16)
[2020-12-06] MEDS: Furosemide 20 MG Tablet PO (10:21)
[2020-12-06] MEDS: predniSONE 20 MG Tablet 40 MG PO (10:21)
--- NOTE | 2020-12-06 11:26 | DCINST_ITS ---
Discharge Instructions Diet Discharge Diet: No restrictions Activity Discharge Activity: Return to Normal Activity Dressing / Incision Call your doctor if you observe: Fever of 101 or Higher, Shortness of breath, Dizziness and Chest pain Follow Up Care Test Results: Test results from this visit will be discussed in further detail at your follow-up appointment, if applicable. Discharge Plan Admission Admit Date/Time: 12/02/20 17:08 Primary Reason for Your Visit: COPD exacerbation Attending Provider: Kana Scott Primary Care Provider: May Garcia Consulting Providers: Kriill Bentley Discharge Orders/Prescriptions Prescriptions: New prednisone 10 mg tablet See Taper mg PO DAILY Qty: 30 RF: 0 amoxicillin-pot clavulanate [Augmentin] 875-125 mg tablet 1 tab PO BID Qty: 8 RF: 0 Continued cyclobenzaprine 10 mg tablet 10 mg PO TID PRN (Reason: muscle spasm) RF: 0 gabapentin 300 mg capsule 300 mg PO BID RF: 0 amlodipine [Norvasc] 2.5 mg tablet 2.5 mg PO DAILY RF: 0 omeprazole 40 MG capsule,delayed release(DR/EC) 40 mg PO DAILY RF: 0 citalopram 20 MG tablet 20 mg PO DAILY RF: 0 [id number]-[id number] 1 EACH blister with device 1 ea IH DAILY Qty: 1 RF: 0 albuterol sulfate 1 INHALER inhaler 2 puff inhalation Q4H PRN PRN (Reason: Shortness Of Breath) Qty: 1 RF: 0 atorvastatin 10 mg tablet 10 mg PO QHS RF: 0 ibuprofen 800 mg tablet 800 mg PO TID PRN (Reason: Pain) RF: 0 Referrals / Follow Up: May Garcia MD [Primary Care Provider] - In 1 Week Mihaela Austin NP, BILINGUAL LEGAL ASSISTANT-C [Nurse Practitioner] - 12/21/20 2:15 pm Lorene Gonzalez NP-C [Nurse Practitioner] - See Referral Note (To follow-up with palliative medicine at discharge.) Disposition Disposition (needs filled in before D/C Order can be placed): Home, Self Care
--- NOTE | 2020-12-06 11:37 | PCM.DC.SUM ---
Documented by User: Verenice Eduardo NP, [employer] 12/06/20 11:41 Providers Date of Admission: 12/02/20 Date of Discharge: 12/06/20 Primary Care Physician: Dr. May Garcia MD Consultations 12/02/20 18:51 Consult: Chuck Tender / Pulmonary Medicine Routine Consulting Provider: Kirill Bentley Reason for Consult: Resp failure, COPD Exacerbation. EMERGENT Consult: No MD Notified: Yes Date Notified: 12/02/20 Time Notified: 17:24 Method of Notification: called Reason For Visit: COPD EXAC, ? PNA, ACUTE INSUFFICIENCY ON CHRONIC Diagnosis Discharge Diagnosis (1) COPD exacerbation: Status: Chronic Code(s): J44.1 - Chronic obstructive pulmonary disease with (acute) exacerbation Medications at Discharge Home Medications citalopram 20 mg PO DAILY 10/13/15 omeprazole 40 mg PO DAILY 10/13/15 amlodipine 2.5 mg tablet 2.5 mg PO DAILY 11/12/18 cyclobenzaprine 10 mg tablet 10 mg PO TID PRN 11/12/18 gabapentin 300 mg capsule 300 mg PO BID 11/12/18 albuterol sulfate 2 puff INHALATION Q4H PRN PRN #1 inhaler 12/20/19 lzdxncawkmf-imuhwkwqh-hokmnsfx 1 ea IH DAILY #1 blst.w.dev 12/20/19 atorvastatin 10 mg PO QHS 10/25/20 ibuprofen 800 mg PO TID PRN 10/25/20 amoxicillin-pot clavulanate [Augmentin] 1 tab PO BID #8 tab 12/06/20 prednisone See Taper PO DAILY #30 tab 12/06/20 Hospital Course Operations None Procedures None Summary of Care Provided Minutes Spent on Discharge: 35 Hospital Course: Patient is a 65-year-old female admitted 12/02/2020 due to cough and dyspnea. 1. Acute on chronic hypoxic respiratory failure secondary to exacerbation of COPD and left lower lobe pneumonia-pulmonary medicine following. Chest x-ray shows small left pleural effusion, left lower lobe pneumonia versus atelectasis. BiPAP as needed during admission. Continue supplement oxygen to maintain O2 at above 90%, patient on 3 to 6 L nasal cannula at baseline and is stable on home O2 requirements. IV Solu-Medrol during admission, transition to prednisone taper at discharge. Respiratory panel and Covid negative. Sputum culture shows presumptive C albicans, mixed [facility]. IV azithromycin and IV zosyn during admission, transition to Augmentin to complete course. Follow-up with PCP in 1 week. Follow-up with pulmonary medicine in 2 weeks. Palliative medicine consulted during recent admission, recommend continued follow-up with palliative given moderately severe obstructive lung disease. 2. Chronic hyponatremia, likely secondary to chronic alcohol use-improved. 3. Chronic alcohol use-[facility] protocol. Multivitamin, thiamine and folic acid supplementation. 4. Hypertension-stable, continue amlodipine. 5. Hyperlipidemia-continue statin. 6. Severe protein calorie nutrition-as evidenced by reduced BMI, cachectic appearance. Dietitian consulted during admission. 7. Anxiety/depression- on citalopram. 8. GERD-continue PPI. 9. Tobacco dependence-continued use. Encouraged cessation. Physical Exam Const alert, oriented x3 and no apparent distress Orientation / Consciousness: awake, oriented to person, oriented to place and oriented to time HEENT normocephalic and moist oral mucous membranes Eyes PERRL, EOMs intact bilaterally and conjunctivae normal Neck no lymphadenopathy Resp Auscultation: wheezes and diminished lung sounds-wheezing improved from prior Cardio regular rate, regular rhythm and no murmurs Peripheral Pulses: pulses 2+ throughout GI normal to inspection, nondistended, normoactive bowel sounds, non-tender and non-distended Extremity normal to inspection Skin no rashes or lesions noted Lesions: no lesions Rashes: no rashes Trauma: no lacerations or abrasions Neuro CN's II-XII intact bilaterally, no focal motor deficits, no sensory deficits noted and deep tendon reflexes 2+ bilaterally Psych mental status grossly normal and affect normal Patient seen and examined prior to discharge. Physical assessment as noted above. Patient is stable for discharge with follow up recommendations as noted above. This patient was seen by JOSE Moore under the supervision of Dr. Scott. Weight / BMI Weight Weight: 111 lb 8.862 oz Body Mass Index (BMI) 17.6 ABG / Lab / Microbiology Data Result Diagrams: 12/06/20 05:25 12/06/20 05:25 Laboratory: Laboratory Results - last 24 hr 12/06/20 05:25: WBC 9.3, RBC 3.58 L, Hgb 10.9 L, Hct 33.4 L, MCV 93.3, MCH 30.4, MCHC 32.6, RDW Std Deviation 51.1 H, RDW Coeff of Oral 14.7 H, Plt Count 504 H, MPV 8.9, Immature Gran % (Auto) 0.600, Neut % (Auto) 92.4 H, Lymph % (Auto) 3.9 L, [place] % (Auto) 3.1, Eos % (Auto) 0.0, Baso % (Auto) 0.0, Absolute Neuts (auto) 8.6 H, Absolute Lymphs (auto) 0.36 L, Nucleated RBC % 0 12/06/20 05:25: Sodium 131 L, Potassium 4.7, Chloride 96 L, Carbon Dioxide 30.0, Anion Gap 5, BUN 22 H, Creatinine 0.38 L, Estim Creat Clear Calc 43.61, Est GFR (MDRD) Af Amer 216, Est GFR (MDRD) Non-Af 179, BUN/Creatinine Ratio 57.7 H, Glucose 113 H, Calcium 8.1 L Microbiology: Microbiology 12/03/20 13:45 Sputum, Expectorated/Coughed Gram Stain - Final 12/03/20 13:45 Sputum, Expectorated/Coughed Respiratory Culture - Final Presumptive C albicans Mixed [facility] 12/02/20 19:43 Mucosa - Nose Respiratory Panel (PCR) - Final 12/02/20 17:42 Urine Catheter - Catheter Legionella Antigen - Final 12/02/20 17:42 Urine Catheter - Catheter Streptococcus pneumoniae Antigen (M - Final 12/02/20 16:05 Nasal Secretion SARS-CoV-2 Antigen (Rapid) - Final D/C Instructions Discharge Diet: No restrictions Call your doctor if you observe: Fever of 101 or Higher, Shortness of breath, Dizziness and Chest pain Meaningful Use Info Meaningful Use Diagnoses (Choose all that apply): None applicable Discharge Plan Admission Admit Date/Time: 12/02/20 17:08 Primary Reason for Your Visit: COPD exacerbation Attending Provider: Kana Scott Primary Care Provider: May Garcia Consulting Providers: Kirill Bentley Discharge Orders/Prescriptions Prescriptions: New prednisone 10 mg tablet See Taper mg PO DAILY Qty: 30 RF: 0 amoxicillin-pot clavulanate [Augmentin] 875-125 mg tablet 1 tab PO BID Qty: 8 RF: 0 Continued cyclobenzaprine 10 mg tablet 10 mg PO TID PRN (Reason: muscle spasm) RF: 0 gabapentin 300 mg capsule 300 mg PO BID RF: 0 amlodipine [Norvasc] 2.5 mg tablet 2.5 mg PO DAILY RF: 0 omeprazole 40 MG capsule,delayed release(DR/EC) 40 mg PO DAILY RF: 0 citalopram 20 MG tablet 20 mg PO DAILY RF: 0 csdnlhwbygg-nfrwqzxyr-hhghdwtf 1 EACH blister with device 1 ea IH DAILY Qty: 1 RF: 0 albuterol sulfate 1 INHALER inhaler 2 puff inhalation Q4H PRN PRN (Reason: Shortness Of Breath) Qty: 1 RF: 0 atorvastatin 10 mg tablet 10 mg PO QHS RF: 0 ibuprofen 800 mg tablet 800 mg PO TID PRN (Reason: Pain) RF: 0 Referrals / Follow Up: May Garcia MD [Primary Care Provider] - 12/13/20 10:00 am (Apt is with [facility]. ) Lorene Gonzalez NP-C [Nurse Practitioner] - See Referral Note (To follow-up with palliative medicine at discharge.) Mihaela Austin NP, [employer] [Nurse Practitioner] - 12/21/20 2:15 pm Disposition Disposition (needs filled in before D/C Order can be placed): Home, Self Care Documented by User: Dr. Kana Scott MD 12/06/20 17:59 Providers Date of Admission: 12/02/20 Reason For Visit: COPD EXAC, ? PNA, ACUTE INSUFFICIENCY ON CHRONIC Medications at Discharge Home Medications citalopram 20 mg PO DAILY 10/13/15 omeprazole 40 mg PO DAILY 10/13/15 amlodipine 2.5 mg tablet 2.5 mg PO DAILY 11/12/18 cyclobenzaprine 10 mg tablet 10 mg PO TID PRN 11/12/18 gabapentin 300 mg capsule 300 mg PO BID 11/12/18 albuterol sulfate 2 puff INHALATION Q4H PRN PRN #1 inhaler 12/20/19 eafqzuubipf-nzeczlhiq-cauavdha 1 ea IH DAILY #1 blst.w.dev 12/20/19 atorvastatin 10 mg PO QHS 10/25/20 ibuprofen 800 mg PO TID PRN 10/25/20 amoxicillin-pot clavulanate [Augmentin] 1 tab PO BID #8 tab 12/06/20 prednisone See Taper PO DAILY #30 tab 12/06/20 Hospital Course Summary of Care Provided Hospital Course: This patient was seen in conjunction with [employer] [facility] [facility] [employer]. I have independently interviewed and examined the patient and reviewed pertinent history, examination findings, laboratory and plan of management. I have reviewed the note and agree with the documented findings with the few additional points. In brief, patient is admitted for acute on chronic hypoxic respiratory failure secondary to COPD exacerbation, due to left lower lobe pneumonia. The patient patient also has left lower lobe pneumonia probably exacerbating factor. Patient on bronchodilator, IV Solu-Medrol and antibiotic Rocephin and Zithromax. On BiPAP support for rescue and at night. Patient is discharged on Augmentin. Hyponatremia improved after IV fluid severe chronic protein malnutrition, COPD cachexia Other comorbidities as mentioned above I have discussed my assessment with [employer] [facility] [employer] and orders have been reviewed. Physical Exam Narrative Physical exam: Patient has chronic shortness of breath. Respiratory status at baseline. Advanced severe obstructive lung disease On exam General: Alert, Oriented x3, Cooperative, cachectic appearance HEENT: Atraumatic, PERRLA, EOMI, Normocephalic Oral: No Gingival or Mucosal Lesions/ Ulcerations Neck: Supple, No JVD, Negative Carotid Bruits Lungs: Air entry severely diminished in bilateral lung bases. Bilateral expiratory rhonchi. Cardiovascular: Regular rate, Regular Rhythm, Normal S1, Normal S2, No murmurs Abdomen: Bowel Sounds Present, Soft, Non Tender, Non-Distended : No renal angle tenderness. No suprapubic tenderness. Extremities: No edema, Capillary Refill Less than 3 Seconds Skin: No rashes, No breakdown Musculoskeletal: Mild to moderate atrophy of muscles in extremities. No Tenderness to Palpation of Joints or Extremities Neurological: Cranial nerves II-XII grossly intact, DTR 2+/4 and Symmetrical, Neuro grossly intact Psych/Mental Status: Normal Affect, Appropriate. ABG / Lab / Microbiology Data Result Diagrams: 12/06/20 05:25 12/06/20 05:25 Discharge Plan Admission Admit Date/Time: 12/02/20 17:08 Primary Reason for Your Visit: COPD exacerbation Attending Provider: Kana Scott Primary Care Provider: aMy Garcia Consulting Providers: Kirill Bentley Discharge Orders/Prescriptions Prescriptions: New prednisone 10 mg tablet See Taper mg PO DAILY Qty: 30 RF: 0 amoxicillin-pot clavulanate [Augmentin] 875-125 mg tablet 1 tab PO BID Qty: 8 RF: 0 Continued cyclobenzaprine 10 mg tablet 10 mg PO TID PRN (Reason: muscle spasm) RF: 0 gabapentin 300 mg capsule 300 mg PO BID RF: 0 amlodipine [Norvasc] 2.5 mg tablet 2.5 mg PO DAILY RF: 0 omeprazole 40 MG capsule,delayed release(DR/EC) 40 mg PO DAILY RF: 0 citalopram 20 MG tablet 20 mg PO DAILY RF: 0 hvodslrovht-navzpfflb-pdhrxpqq 1 EACH blister with device 1 ea IH DAILY Qty: 1 RF: 0 albuterol sulfate 1 INHALER inhaler 2 puff inhalation Q4H PRN PRN (Reason: Shortness Of Breath) Qty: 1 RF: 0 atorvastatin 10 mg tablet 10 mg PO QHS RF: 0 ibuprofen 800 mg tablet 800 mg PO TID PRN (Reason: Pain) RF: 0 Referrals / Follow Up: May Garcia MD [Primary Care Provider] - 12/13/20 10:00 am (Apt is with [facility]. ) Lorene Gonzalez NP-C [Nurse Practitioner] - See Referral Note (To follow-up with palliative medicine at discharge.) Mihaela Austin NP, [employer] [Nurse Practitioner] - 12/21/20 2:15 pm Disposition Disposition (needs filled in before D/C Order can be placed): Home, Self Care Charges/Coding Visit Charges Inpatient E&M: 03845 Disch Hosp
--- NOTE | 2020-12-06 11:56 | PHA.DC.MC ---
Pharmacy Service has performed discharge medication reconciliation and counseling for this patient. 1. AUGMENTIN 875MG PO BID X 4 DAYS 2. PREDNISONE 40MG PO DAILY X 3 DAYS, THEN 30MG X 3 DAYS, THEN 20MG X 3 DAYS, THEN 10MG X 3 DAYS The patient's discharge medication list was reviewed for discrepancies and discrepancies were resolved. Home Medications citalopram 20 mg PO DAILY 10/13/15 omeprazole 40 mg PO DAILY 10/13/15 amlodipine 2.5 mg tablet 2.5 mg PO DAILY 11/12/18 cyclobenzaprine 10 mg tablet 10 mg PO TID PRN 11/12/18 gabapentin 300 mg capsule 300 mg PO BID 11/12/18 albuterol sulfate 2 puff INHALATION Q4H PRN PRN #1 inhaler 12/20/19 nnzsvbjwekz-nnhnsbxlb-htsrljkv 1 ea IH DAILY #1 blst.w.dev 12/20/19 atorvastatin 10 mg PO QHS 10/25/20 ibuprofen 800 mg PO TID PRN 10/25/20 amoxicillin-pot clavulanate [Augmentin] 1 tab PO BID #8 tab 12/06/20 prednisone See Taper PO DAILY #30 tab 12/06/20 The patient was counseled on the following discharge medications and changes in medications for homegoing were reviewed. The Reason for Use, instructions for use, and potential side effects were reviewed for all new medications. The patient's questions regarding all of their medications were answered. The patient was able to verbally demonstrate an understanding of their discharge medications.
--- NOTE | 2020-12-06 16:07 | NURSING ---
This RN reviewed SN charting
--- NOTE | 2020-12-07 14:07 | CASEMGMT ---
RADHA BOSWELL Discharge Follow-up Phone Call: JESSIE: Paola Strata: 3 Call Date: 12/07/20 Discharge Date: 12/06/20 Time of Call: 1406 Duration: 1 min Admitting Diagnosis: COPD exacerbation RADHA BOSWELL attempted to complete follow-up phone call after recent hospitalization. No answer, voice message left with return contact information.
== END 2020-12-06 14:01 | disposition home or self-care (01) | DRG 190 ==
LOC: ED 17:02 → PCU 17:38
PROVIDERS: Nurse Practitioner Family; Admitting Provider Family Medicine; Emergency Provider Emergency Medicine; PCP Internal Medicine; Visit Provider Internal Medicine
DX: J44.1 Chronic obstructive pulmonary disease with (acute) exacerbation (principal); J96.21 Acute and chronic respiratory failure with hypoxia; E43 Unspecified severe protein-calorie malnutrition; J44.0 Chronic obstructive pulmonary disease with (acute) lower respiratory infection; J18.9 Pneumonia, unspecified organism; E87.1 Hypo-osmolality and hyponatremia; Z68.1 Body mass index [BMI] 19.9 or less, adult; Z20.822 Contact with and (suspected) exposure to COVID-19; I10 Essential (primary) hypertension; E78.5 Hyperlipidemia, unspecified; J30.9 Allergic rhinitis, unspecified; G62.9 Polyneuropathy, unspecified; R13.10 Dysphagia, unspecified; F10.10 Alcohol abuse, uncomplicated; K21.9 Gastro-esophageal reflux disease without esophagitis; G47.00 Insomnia, unspecified; F32.9 Major depressive disorder, single episode, unspecified; F41.9 Anxiety disorder, unspecified; F17.210 Nicotine dependence, cigarettes, uncomplicated; Z99.81 Dependence on supplemental oxygen; Z79.899 Other long term (current) drug therapy
CPT/HCPCS: 36415; 36600; 71045; 80048; 80053; 80307; 82077; 82803; 83735; 84100; 84145; 84484; 85025; 87070; 87205; 87426; 87449; 87633; 93005; 93971; 94002; 94003; 94640; 94667; 94668; 94760; 97802; 99251; 99285; 99406; J7030; J7040; J7050; A4216; G0463

== ENCOUNTER 2021-01-05 18:42 | Observation (INO) | payer MEDICARE, MEDICAID, SELFPAY ==
[2021-01-05] VITALS (9 sets, daily range): BP systolic 141–177; BP diastolic 16–102; PULSE 96–108; RESP 21–36; TEMP 36.1–36.8; O2SAT 88–100; BMI 15.7
--- NOTE | 2021-01-05 19:02 | EKG12_ITS ---
Test Reason : DYSRHYTHMIA Blood Pressure : / mmHG Vent. Rate : 089 BPM Atrial Rate : 089 BPM P-R Int : 152 ms QRS Dur : 092 ms QT Int : 384 ms P-R-T Axes : 084 064 073 degrees QTc Int : 467 ms Normal sinus rhythm with sinus arrhythmia Biatrial enlargement Abnormal ECG Confirmed by ELIAS FOOTE, TUTU ([id number]), editorial project manager KAI RODRIGUEZ ([id number]) on 01/11/2021 6:37:34 AM Referred By: ANNELIESE Confirmed By:TUTU GRIFFIN MD
--- NOTE | 2021-01-05 19:11 | EX.ED.DYSGE1 ---
HPI History of Present Illness Chief Complaint: Shortness of Breath Informant: patient Onset/Context/Timing Onset: Yesterday Current Severity: Moderate Maximum Severity: Moderate Narrative Narrative: Patient present secondary to shortness of breath. She is a history of COPD, on home oxygen at night only. Patient states yesterday she noted increased shortness of breath. She has mild cough with clear sputum. No fever or chills. No chest pain. PFSH PFSH Medical History Allergic rhinitis Anxiety Back pain Chronic bronchitis Chronic hyponatremia Chronic respiratory failure with hypoxia COPD (chronic obstructive pulmonary disease) Depression Dysphagia Emphysema of lung Hypertension Insomnia Smoker Home Medications citalopram 20 mg PO DAILY 10/13/15 [History Last Taken 10/24/20] omeprazole 40 mg PO DAILY 10/13/15 [History Last Taken 10/24/20] amlodipine 2.5 mg tablet 2.5 mg PO DAILY 11/12/18 [History Last Taken 10/24/20] cyclobenzaprine 10 mg tablet 10 mg PO TID PRN 11/12/18 [History Last Taken 10/24/20] gabapentin 300 mg capsule 300 mg PO BID 11/12/18 [History Last Taken 10/24/20] albuterol sulfate 2 puff INHALATION Q4H PRN PRN #1 inhaler 12/20/19 [Rx Last Taken Unknown] onwgnfcelbu-qyrgfmtyq-qochttjh 1 ea IH DAILY #1 blst.w.dev 12/20/19 [Rx Last Taken 10/24/20] atorvastatin 10 mg PO QHS 10/25/20 [History Last Taken 10/24/20] ibuprofen 800 mg PO TID PRN 10/25/20 [History Last Taken 10/24/20] amoxicillin-pot clavulanate [Augmentin] 1 tab PO BID #8 tab 12/06/20 [Rx Last Taken Unknown] prednisone See Taper PO DAILY #30 tab 12/06/20 [Rx Last Taken Unknown] Allergy/AdvReac Type Severity Reaction Status Date / Time bupropion [From Wellbutrin] Allergy Severe hallucinati Verified 01/05/21 18:42 ons Family History Mother Heart disease Hypertension CAD (coronary artery disease) Other No pertinent family history Surgical History S/P chest tube placement Social History household members: significant other history of recent travel: No Smoking Status: Current every day smoker tobacco type: cigarettes quit status: considering quitting counseling given: provider counseling and counseling >10 minutes alcohol intake: current alcohol intake frequency: 3 or more drinks per day Alcohol type: beer details: 4-6 beers daily. substance use type: does not use ROS ROS ED Constitutional Constitutional ED: Denies chills or fever(s) Eyes Eyes: Denies change in vision ENT ENT ED: Denies sore throat Cardiovascular Cardiovascular: Denies chest pain Respiratory/Chest Respiratory/Chest: Reports cough, dyspnea and sputum Gastrointestinal Gastrointestinal: Denies abdominal pain, diarrhea, nausea or vomiting Genitourinary Genitourinary ED: Denies dysuria Musculoskeletal Musculoskeletal: Denies back pain Integumentary Denies rash Neurologic Neurologic: Denies headache(s) or weakness Allergic/Immunologic Allergic/Immunologic ED: Denies urticaria EXAM Physical Exam Const Vital Signs: 01/05/21 18:42 01/05/21 19:12 01/05/21 19:29 Temperature 97.0 F L Temperature Source Temporal Pulse Rate 96 108 H 100 Respiratory Rate 34 H 36 H 36 H Respiratory Effort Short of Breath Labored Short of Breath Accessory Muscle Use Respiratory Depth Shallow Respiratory Pattern Tachypnea Tachypnea Blood Pressure 177/16 H Blood Pressure Mean 69 Pulse Ox 96 98 100 Oxygen Delivery Method Nasal Cannula Nasal Cannula Nasal Cannula Oxygen Flow Rate (L/min) 3 3 2 01/05/21 20:25 01/05/21 20:43 01/05/21 21:30 Temperature Temperature Source Pulse Rate 103 H 100 Respiratory Rate 25 H 22 H 22 H Respiratory Effort Respiratory Depth Respiratory Pattern Blood Pressure 156/102 H 161/99 H Blood Pressure Mean 120 119 Pulse Ox 88 96 90 Oxygen Delivery Method Room Air Nasal Cannula Nasal Cannula Oxygen Flow Rate (L/min) 2 1 01/05/21 21:39 01/05/21 22:25 Temperature Temperature Source Pulse Rate 106 H 99 Respiratory Rate 24 H 21 H Respiratory Effort Respiratory Depth Respiratory Pattern Tachypnea Blood Pressure 141/91 H Blood Pressure Mean 107 Pulse Ox 94 Oxygen Delivery Method Nasal Cannula Oxygen Flow Rate (L/min) 2 Positive well nourished and well developed General Appearance ED: well developed Eyes EOMs intact bilaterally Neck supple Chest Wall inspection of chest normal and palpation of chest normal Resp Resp Narrative: Tachypnea with tight expiratory wheezes throughout. Patient only speaking 2-3 word sentences. Cardio regular rate and regular rhythm GI normal to inspection, nondistended, normoactive bowel sounds and non-tender Palpation: soft Extremity normal to inspection General Extremety ED: Negative for edema General Extremity: Negative for edema Neuro oriented x3 Skin no rashes or lesions noted MDM MDM MDM Narrative Medical decision making narrative: Patient given IV Solu-Medrol along with DuoNeb and 2 albuterol treatments. Lab work, chest x-ray, Covid swab ordered. Lab Data Attestation: I reviewed the patient's lab results. Labs: Laboratory Results - last 24 hr 01/05/21 01/05/21 19:10 19:10 WBC 7.3 RBC 4.77 Hgb 14.2 Hct 42.0 MCV 88.1 MCH 29.8 MCHC 33.8 RDW Std Deviation 42.5 RDW Coeff of Oral 13.1 Plt Count 486 H MPV 8.8 Immature Gran % (Auto) 0.300 Neut % (Auto) 61.6 Lymph % (Auto) 19.4 [place] % (Auto) 10.3 H Eos % (Auto) 7.7 H Baso % (Auto) 0.7 Absolute Neuts (auto) 4.5 Absolute Lymphs (auto) 1.41 Nucleated RBC % 0 Sodium 127 L Potassium 3.9 Chloride 90 L Carbon Dioxide 28.0 Anion Gap 9 BUN 9 Creatinine 0.37 L Estim Creat Clear Calc 38.31 Est GFR (MDRD) Af Amer 225 Est GFR (MDRD) Non-Af 186 BUN/Creatinine Ratio 24.5 H Glucose 92 Calcium 8.8 Troponin I High Sens 10 Rapid Covid test negative. Radiography Chest X-Ray - ED: 1 View, Read by ED Physician and Chronic Changes Diagnostic Testing: Clinical Impression(s) from Imaging Studies Chest X-Ray 01/05/21 20:00 IMPRESSION: Pulmonary hyperinflation with emphysematous change. There are interstitial opacities that may represent scar. There is blunting of left costophrenic angle which may represent pleural effusion or scar. There has been very little change from the reference exam. at 2038 Reported and signed by: Garret Redman MD Electronically Signed: Garret Redman MD at 20:37 EDT Tel , Service support , EKG Initial EKG: Attestation: I personally reviewed and interpreted this EKG as follows: Interpretation: Sinus Rhythm (Sinus [address] change.) Treatment and Re-Evaluation Comments:: Repeat evaluation patient was able to be taken off of oxygen. Sitting at rest she did drop to 87% and was put back on 1 to 2 L nasal cannula. Patient was able to ambulate to the restroom back but did become tachypneic. On repeat auscultation she continues to have poor air movement. 2 additional albuterol treatments are given. At this time patient is satting 93% on 2 L nasal cannula. With her severity of COPD and degree of this exacerbation I do feel she should be observed overnight for acjtuw-oeh-fdmex breathing treatments. She will be given a dose of doxycycline at this time. I will speak with the hospitalist. Discharge Plan Triage Chief Complaint: Shortness of Breath ED Provider: Michelle Duffy Dx/Rx/DC Orders Clinical Impression: Acute exacerbation of chronic obstructive pulmonary disease Prescriptions: No Action cyclobenzaprine 10 mg tablet 10 mg PO TID PRN (Reason: muscle spasm) RF: 0 gabapentin 300 mg capsule 300 mg PO BID RF: 0 amlodipine [Norvasc] 2.5 mg tablet 2.5 mg PO DAILY RF: 0 omeprazole 40 MG capsule,delayed release(DR/EC) 40 mg PO DAILY RF: 0 citalopram 20 MG tablet 20 mg PO DAILY RF: 0 gforrzoxzuy-xcadisfgc-ayobzzsu 1 EACH blister with device 1 ea IH DAILY Qty: 1 RF: 0 albuterol sulfate 1 INHALER inhaler 2 puff inhalation Q4H PRN PRN (Reason: Shortness Of Breath) Qty: 1 RF: 0 atorvastatin 10 mg tablet 10 mg PO QHS RF: 0 ibuprofen 800 mg tablet 800 mg PO TID PRN (Reason: Pain) RF: 0 prednisone 10 mg tablet See Taper mg PO DAILY Qty: 30 RF: 0 amoxicillin-pot clavulanate [Augmentin] 875-125 mg tablet 1 tab PO BID Qty: 8 RF: 0 Primary Care Provider: May Garcia Referrals: May Garcia MD [Primary Care Provider] - Disposition Disposition: Acute Care [facility]
[2021-01-05] MEDS: Ipratropium/Albuterol Sulfate 3 ML AMPUL.NEB INHALATION (19:12)
[2021-01-05 19:20] LABS: Absolute Lymphocyte Count 1.41 X10^3/uL (0.83-4.51); Absolute Neutrophil Count 4.5 X10^3/uL (2.0-7.7); Basophil# 0.05 X10^3/uL; Basophil% 0.7 % (0-1); Eosinophil# 0.56 X10^3/uL; Eosinophils% 7.7 % (0-5); Hemoglobin 14.2 g/dL (12.0-15.0); Lymphocyte # 1.41 X10^3/ul (0.83-4.51); Lymphocyte % 19.4 % (19-41); Mean Corp Hgb Conc 33.8 g/dL (32-36); Mean Corpuscular Hgb 29.8 pg (27.0-32.0); Mean Corpuscular Volume 88.1 fL (81-99); Mean Platelet Vol. 8.8 fl (6.2-12.0); Monocyte# 0.75 X10^3/uL; Monocyte% 10.3 % (0-10); NRBC Flagged by Analyzer 0 % (0-5); Neutrophil # 4.47 X10^3/uL (2.7-7.7); Neutrophil % 61.6 % (47-70); Platelet Count 486 K/mm3 (150-450); RBC Distribution Width CV 13.1 % (11.6-14.6); RBC Distribution Width SD 42.5 fl (35.1-43.9); Red Blood Count 4.77 M/mm3 (4.2-5.4); White Blood Count 7.3 K/mm3 (4.4-11.0)
[2021-01-05] MEDS: Albuterol 2.5 MG/3 ML VIAL.NEB. INHALATION ×4 (19:28→21:39)
[2021-01-05] MEDS: MethylPREDNISolone 125 MG/2 ML Vial 100 MG IV (19:38)
[2021-01-05 19:39] LABS: Anion Gap 9 (5-15); BUN 9 mg/dL (7-18); BUN/Creat Ratio 24.5 RATIO (10-20); Calcium,Total 8.8 mg/dL (8.5-10.1); Chloride 90 mmol/L (98-107); Creatinine, Serum 0.37 mg/dL (0.55-1.02); EST Glomerular Filtration Rate 186 mL/min (>60); Est Glom Filt Rate - Afr Amer 225 mL/min (>60); Estimated Creatinine Clearance 38.31 ml/min; Glucose 92 mg/dL (74-106); Potassium 3.9 mmol/L (3.5-5.1); Sodium Level 127 mmol/L (136-145); Troponin-I HS 10 pg/mL (3.0-54.0)
--- NOTE | 2021-01-05 19:54 | CPS ---
x2 Albuterol given to pt. in ED as well
--- NOTE | 2021-01-05 20:00 | RAD_ITS ---
EXAM: XR CHEST, 1 VIEW : 1955 CLINICAL INDICATION: sob TECHNIQUE: Frontal view of the chest. This report was created using [employer] report generation technology. COMPARISON: 12/02/2020 FINDINGS: LUNGS AND PLEURAL SPACES: There is blunting of the left costophrenic angle which may represent pleural scarring. The lungs are hyperinflated with interstitial scarring in the facet of this change. No pneumothorax. No effusion. HEART: Unremarkable. Cardiac silhouette not enlarged. MEDIASTINUM: Central airways and mediastinal contour are unremarkable. BONES/JOINTS: See above. SOFT TISSUES: Unremarkable. RAD/Chest 1 View (Portable) IMPRESSION: Pulmonary hyperinflation with emphysematous change. There are interstitial opacities that may represent scar. There is blunting of left costophrenic angle which may represent pleural effusion or scar. There has been very little change from the reference exam. at 2038 Reported and signed by: Garret Redman MD Electronically Signed: Garret Redman MD at 20:37 EDT Tel , Service support ,
--- NOTE | 2021-01-05 22:02 | CPS ---
Additional x1 Albuterol given to pt. in ER
--- NOTE | 2021-01-05 23:12 | PCM.HP.STD ---
HPI - General General Date of Admission: 01/05/21 HPI Narrative SPENCER MENDES, is a 65 F with a significant history of COPD on home 3 L nightly nasal cannula oxygen; tobacco abuse and alcoholism who presents to emergency department with a 2-day history of progressively worsening shortness of breath. Shortness of breath is at rest and it increases markedly with mild exertion. She reports dry cough and chills. She reports fatigue. She denies anorexia. She has not been vaccinated for COVID-19 virus. PFSH Medical History Allergic rhinitis Anxiety Back pain Chronic bronchitis Chronic hyponatremia Chronic respiratory failure with hypoxia COPD (chronic obstructive pulmonary disease) Depression Dysphagia Emphysema of lung Hypertension Insomnia Smoker Home Medications citalopram 20 mg PO DAILY 10/13/15 [History Last Taken 10/24/20] omeprazole 40 mg PO DAILY 10/13/15 [History Last Taken 10/24/20] amlodipine 2.5 mg tablet 2.5 mg PO DAILY 11/12/18 [History Last Taken 10/24/20] cyclobenzaprine 10 mg tablet 10 mg PO TID PRN 11/12/18 [History Last Taken 10/24/20] gabapentin 300 mg capsule 300 mg PO BID 11/12/18 [History Last Taken 10/24/20] albuterol sulfate 2 puff INHALATION Q4H PRN PRN #1 inhaler 12/20/19 [Rx Last Taken Unknown] aunrcvoacoh-myevbbfmu-btchmeok 1 ea IH DAILY #1 blst.w.dev 12/20/19 [Rx Last Taken 10/24/20] atorvastatin 10 mg PO QHS 10/25/20 [History Last Taken 10/24/20] ibuprofen 800 mg PO TID PRN 10/25/20 [History Last Taken 10/24/20] amoxicillin-pot clavulanate [Augmentin] 1 tab PO BID #8 tab 12/06/20 [Rx Last Taken Unknown] prednisone See Taper PO DAILY #30 tab 12/06/20 [Rx Last Taken Unknown] Allergy/AdvReac Type Severity Reaction Status Date / Time bupropion [From Wellbutrin] Allergy Severe hallucinati Verified 01/05/21 18:42 ons Family History Mother Heart disease Hypertension CAD (coronary artery disease) Other No pertinent family history Surgical History S/P chest tube placement Social History household members: significant other history of recent travel: No Smoking Status: Current every day smoker tobacco type: cigarettes quit status: considering quitting counseling given: provider counseling and counseling >10 minutes alcohol intake: current alcohol intake frequency: 3 or more drinks per day Alcohol type: beer details: 4-6 beers daily. substance use type: does not use ROS ROS Narrative Constitutional: Denies fever. Reports chills. Reports fatigue. Eyes: Denies blurry vision, change in eye color, change in vision, discharge from eye(s), double vision, erythema, eye pain, loss of vision or other HEENT: Denies abnormal hearing, dysphagia, ear pain, epistaxis, headache(s), hearing loss, nasal congestion, nasal discharge, post nasal drip, sinus pressure, sore throat or other Cardiovascular: Denies chest pain or palpitations. Reports increased dyspnea on exertion. Respiratory/Chest: Reports nonproductive cough. Reports shortness of breath. Reports wheezes. Gastrointestinal: Denies abdominal pain, coffee ground emesis, constipation, diarrhea, dyspepsia, hematemesis, hematochezia, loose stools, melena, nausea, vomiting or other Genitourinary: Denies burning urination, difficulty urinating, dysuria, hematuria, nocturia, urinary frequency, urinary hesitancy, urinary incontinence, urinary urgency or other Musculoskeletal: Denies arthralgias, back pain, joint pain, joint stiffness, joint swelling, myalgias, neck pain or other Neurologic: Denies abnormal gait, abnormal speech, confusion, disequilibrium, dizziness, focal weakness, headache(s), numbness, paresthesias, seizure-like activity, seizures, syncope, tingling, tremor(s) or other Psychiatric: Denies anxiety, depression, homicidal ideation, suicidal ideation or other Endocrinology: Denies change in body appearance, cold intolerance, excessive sweating, heat intolerance, polydipsia, polyuria or other Hematologic/Lymphatic: Denies anemia, easy bleeding, easy bruising, lymphadenopathy or other Integumentary: Denies rashes Allergic/Immunologic: Denies rhinitis, hives, eczema, asthma or other Vital Signs Vital Signs Vital Signs: 01/05/21 18:42 01/05/21 19:12 01/05/21 19:29 Temperature 97.0 F L Temperature Source Temporal Pulse Rate 96 108 H 100 Respiratory Rate 34 H 36 H 36 H Respiratory Effort Short of Breath Labored Short of Breath Accessory Muscle Use Respiratory Depth Shallow Respiratory Pattern Tachypnea Tachypnea Blood Pressure 177/16 H Blood Pressure Mean 69 Pulse Ox 96 98 100 Oxygen Delivery Method Nasal Cannula Nasal Cannula Nasal Cannula Oxygen Flow Rate (L/min) 3 3 2 01/05/21 20:25 01/05/21 20:43 01/05/21 21:30 Temperature Temperature Source Pulse Rate 103 H 100 Respiratory Rate 25 H 22 H 22 H Respiratory Effort Respiratory Depth Respiratory Pattern Blood Pressure 156/102 H 161/99 H Blood Pressure Mean 120 119 Pulse Ox 88 96 90 Oxygen Delivery Method Room Air Nasal Cannula Nasal Cannula Oxygen Flow Rate (L/min) 2 1 01/05/21 21:39 01/05/21 22:25 Temperature Temperature Source Pulse Rate 106 H 99 Respiratory Rate 24 H 21 H Respiratory Effort Respiratory Depth Respiratory Pattern Tachypnea Blood Pressure 141/91 H Blood Pressure Mean 107 Pulse Ox 94 Oxygen Delivery Method Nasal Cannula Oxygen Flow Rate (L/min) 2 Weight Weight: 44.452 kg Body Mass Index (BMI) 15.7 Physical Exam Narrative Physical exam: General: Thin framed female. Head: Normocephalic, atraumatic, no tenderness Eyes: PERRLA, EOMI ENT, no trauma, moist mucous membranes, no rhinorrhea Neck: Nontender, full range of motion, no spinal tenderness, deformities, step-off CVS: Tachycardia. S1-S2 present. No murmur, gallop or rub. Respiratory : Tachypnea. Mild rhonchi. chest wall nontender. Abdomen: Soft, nontender, nondistended, normal bowel sounds, no masses : Deferred Back: Nontender, no CVA tenderness, no midline spinal tenderness, deformities, step-offs Extremities: Nontender full range of motion, no trauma Skin: Normal color, no trauma, abrasions Neuro: Alert, oriented, cranial nerves II through XII grossly intact. Psychiatry: Normal mood. Normal affect. Not depressed. Not anxious. Results Lab / Micro Data Result Diagrams: 01/05/21 19:10 01/05/21 19:10 Labs: Laboratory Results - last 24 hr 01/05/21 19:10: WBC 7.3, RBC 4.77, Hgb 14.2, Hct 42.0, MCV 88.1, MCH 29.8, MCHC 33.8, RDW Std Deviation 42.5, RDW Coeff of Oral 13.1, Plt Count 486 H, MPV 8.8, Immature Gran % (Auto) 0.300, Neut % (Auto) 61.6, Lymph % (Auto) 19.4, [place] % (Auto) 10.3 H, Eos % (Auto) 7.7 H, Baso % (Auto) 0.7, Absolute Neuts (auto) 4.5, Absolute Lymphs (auto) 1.41, Nucleated RBC % 0 01/05/21 19:10: Sodium 127 L, Potassium 3.9, Chloride 90 L, Carbon Dioxide 28.0, Anion Gap 9, BUN 9, Creatinine 0.37 L, Estim Creat Clear Calc 38.31, Est GFR (MDRD) Af Amer 225, Est GFR (MDRD) Non-Af 186, BUN/Creatinine Ratio 24.5 H, Glucose 92, Calcium 8.8, Troponin I High Sens 10 Micro: Microbiology 01/05/21 19:06 Nasal Secretion SARS-CoV-2 Antigen (Rapid) - Final Radiology Impression Chest X-Ray 01/05/21 20:00 IMPRESSION: Pulmonary hyperinflation with emphysematous change. There are interstitial opacities that may represent scar. There is blunting of left costophrenic angle which may represent pleural effusion or scar. There has been very little change from the reference exam. at 203 Reported and signed by: Garret Redman MD Electronically Signed: Garret Redman MD at 20:37 EDT Tel , Service support , Assessment & Plan Assessment/Plan (1) Acute exacerbation of chronic obstructive pulmonary disease: (2) Tobacco abuse: (3) Alcoholism: (4) Protein-calorie malnutrition, moderate: PLAN: Acute COPD exacerbation Chest x-ray was independently interpreted and I agree with christian interpretation above.. All chest x-ray was also reviewed. Scheduled DuoNeb Albuterol as needed Received Solu-Medrol IV at the emergency department and continued. Received Doxycycline at the emergency department. Continue supplemental oxygenation. Titrate to keep oxygen saturation more than 90%. Monitor BMP and CBC Moderate protein calorie malnutrition Ensure Enlive 120 ml 4 times a day Nutritional consult Tobacco abuse Counselled Nicotine patch prescribed Alcoholism We will place on CIWA protocol with multivitamin; folic acid and thiamine. As needed Ativan ordered. DVT prophylaxis Subcutaneous Lovenox ordered. Charges/Coding Visit Charges Inpatient E&M: 03758 Init Hosp L2
[2021-01-05] MEDS: Doxycycline 100 MG CAPSULE PO (23:50)
[2021-01-06] VITALS (13 sets, daily range): BP systolic 134–158; BP diastolic 79–117; PULSE 90–116; RESP 18–22; TEMP 36.5–36.8; O2SAT 88–94; BMI 16.7
[2021-01-06] MEDS: 0.9% Saline Lock 10 ML Syringe IV ×2 (05:29→13:54)
[2021-01-06 06:39] LABS: Absolute Lymphocyte Count 0.35 X10^3/uL (0.83-4.51); Absolute Neutrophil Count 1.5 X10^3/uL (2.0-7.7); Hematocrit 40.2 % (37-47); Hemoglobin 13.8 g/dL (12.0-15.0); Lymphocyte # 0.35 X10^3/ul (0.83-4.51); Lymphocyte % 18.2 % (19-41); Mean Corp Hgb Conc 34.3 g/dL (32-36); Mean Corpuscular Hgb 29.8 pg (27.0-32.0); Mean Corpuscular Volume 86.8 fL (81-99); Mean Platelet Vol. 9.3 fl (6.2-12.0); Monocyte# 0.05 X10^3/uL; Monocyte% 2.6 % (0-10); NRBC Flagged by Analyzer 0 % (0-5); Neutrophil # 1.51 X10^3/uL (2.7-7.7); Neutrophil % 78.7 % (47-70); POSITIVE DIFFERENTIAL YES; Platelet Count 521 K/mm3 (150-450); RBC Distribution Width CV 12.9 % (11.6-14.6); RBC Distribution Width SD 40.9 fl (35.1-43.9); Red Blood Count 4.63 M/mm3 (4.2-5.4); White Blood Count 1.9 K/mm3 (4.4-11.0)
[2021-01-06 06:42] LABS: Differential Indicated SCAN CRITERIA MET
[2021-01-06 06:59] LABS: Differential Comment SCANNED
[2021-01-06 07:06] LABS: Anion Gap 11 (5-15); BUN 13 mg/dL (7-18); BUN/Creat Ratio 31.2 RATIO (10-20); Chloride 92 mmol/L (98-107); Creatinine, Serum 0.42 mg/dL (0.55-1.02); EST Glomerular Filtration Rate 161 mL/min (>60); Est Glom Filt Rate - Afr Amer 195 mL/min (>60); Estimated Creatinine Clearance 40.68 ml/min; Glucose 160 mg/dL (74-106); Potassium 3.3 mmol/L (3.5-5.1); Sodium Level 129 mmol/L (136-145)
[2021-01-06] MEDS: Ipratropium/Albuterol Sulfate 3 ML AMPUL.NEB INHALATION ×3 (07:20→18:32)
[2021-01-06] MEDS: Multivitamins,Ther W-Minerals Tablet 1 TABLET PO (07:55)
[2021-01-06] MEDS: Folic Acid 1 MG Tablet PO (07:55)
[2021-01-06] MEDS: Thiamine Hydrochloride 100 MG Tablet PO ×2 (07:55→17:49)
--- NOTE | 2021-01-06 09:00 | CASEMGMT ---
Social Work Note Per sex worker or escort questions, pt has completed HCPOA and LW and provided documents to [facility]. SW reviewed chart, HCPOA and LW are on file. SW printed off documents and placed them on pt's chart. Alise Duncan DRUM DYEING MACHINE OPERATOR, TELECOMMUNICATIONS SPECIALIST
[2021-01-06] MEDS: Enoxaparin 40 MG/0.4 ML Syringe SC (10:17)
--- NOTE | 2021-01-06 10:40 | CASEMGMT ---
Addendum entered by Gabriella Messina 01/06/21 15:47: Pt plans to stay yet tonight. TC to [place] at [facility] to make aware. Original Note: RN CM Face to Face with patient for initial transition planning/care coordination assessment. RN CM introduced self and role at [facility]. Patient lying in bed, alert and oriented with O2 on in no distress. Patient willing to participate in assessment and is able to answer all questions appropriately. Care providers, pharmacy, and demographics verified. Patient wishes to dc home with [facility]. Pt denied need for a list of of [facility] providers including quality and resource use data and consistent with the patient?s preferred geographic region, medical needs, and insurance network. Patient would like [facility], which she has had in the past. TC to [place] and referral made at this time of assessment. Patient states she has no further needs or concerns at this time. CM to follow for discharge planning needs that may arise. PCP: Jose Specialists: Calvin lead python developer Preferred Pharmacy: [facility] Insurance: LESLEY Russ Prescription Benefit: yes Living Will/HPOA: yes, significant other Dylan Winter HPOA LNOK: significant other, granddaughter Mikala Carrera, grandrakesh Living Arrangements: Patient lives with significant other and an adult grandson in a 2 story home with bed and bath on first floor. Patient states she is still independent at home. Transportation: Pt states she is able to drive self and denies concerns with transportation. DME/HHC: Patient states she has walker, rollator, nebulizer, pulse ox and home oxygen at 3L at rest and 6 lpm with exertion through [place] with portability. Pt has her portable O2 with her to go home on. Patient states she has had [facility] in the past, denies SNF stays. Patient states she smoke 1 PPD of cigarettes per day. Denies need for cessation info. Pt drinks 6 beers every weekend, she denies needing any resources for cessation for this either. Patient denies using street drugs or illegal drugs. Disposition Plan: Patient to discharge home with [facility].
[2021-01-06] MEDS: COVID-19 VAC,AD26(JANSSEN)/PF 0.5 ML SYRINGE IM (12:17)
--- NOTE | 2021-01-06 13:01 | PCM.DC ---
Discharge Instructions Diet Discharge Diet: No restrictions Activity Discharge Activity: Return to Normal Activity Weight Bearing Status: Full weight bearing Follow Up Care Test Results: Test results from this visit will be discussed in further detail at your follow-up appointment, if applicable. Discharge Plan Admission Admit Date/Time: 01/05/21 23:14 Primary Reason for Your Visit: exacerbation of COPD Attending Provider: Elias Harden Primary Care Provider: May Garcia Instructions Additional Instructions / Restrictions: do not smoke Use oxygen at 2 L/min via nasal cannula at rest, use oxygen 4 L/min with ambulation Discharge Orders/Prescriptions Prescriptions: New prednisone 20 mg tablet 20 mg PO BID Qty: 12 RF: 0 Continued cyclobenzaprine 10 mg tablet 10 mg PO TID PRN (Reason: muscle spasm) RF: 0 gabapentin 300 mg capsule 600 mg PO QHS RF: 0 amlodipine [Norvasc] 2.5 mg tablet 2.5 mg PO QHS RF: 0 omeprazole 40 MG capsule,delayed release(DR/EC) 40 mg PO QHS RF: 0 citalopram 20 MG tablet 20 mg PO QHS RF: 0 albuterol sulfate 1 INHALER inhaler 2 puff inhalation Q4H PRN PRN (Reason: Shortness Of Breath) Qty: 1 RF: 0 atorvastatin 10 mg tablet 10 mg PO QHS RF: 0 ibuprofen 800 mg tablet 800 mg PO TID PRN (Reason: Pain) RF: 0 lsmfldqilbw-ldizanscy-pfhsdbap 1 EACH blister with device 1 each IH DAILY RF: 0 Referrals / Follow Up: May Garcia MD [Primary Care Provider] - Within 2 Weeks Disposition Disposition (needs filled in before D/C Order can be placed): Home Health Service
--- NOTE | 2021-01-06 15:25 | CASEMGMT ---
Social Work Note LOKI reviewed chart. Pt with History of ETOH abuse/use. SW in to speak with pt. SW introduced self and role at [facility]. Pt is alert and orientated. Pt states she only drinks 4-5 beers on the weekend. Pt states she used to be a social drinker. SW spoke with pt about ETOH resources/ AA Meetings. Pt denied wanting any ETOH resources. Pt states that she would like to stay at [facility] today and discharge tomorrow. SW informed pt that it will be up to the physician. SW asked pt about her transportation home. Pt states she will have transportation tomorrow to take her home. Pt denied additional needs or concerns at this time. LOKI spoke with physician. Pt to stay at [facility] tonight, will discharge tomorrow. LOKI updated pt. Alise Duncan FORDER OPERATOR, TOOL CRIB SUPERVISOR
[2021-01-06] MEDS: Acetaminophen 325 MG Tablet 650 MG PO (17:47)
--- NOTE | 2021-01-06 18:00 | PN.HOSP_ITS ---
Subjective Subjective Patient was seen and examined today, she remains on supplemental oxygen at this time, she appears comfortable and not dyspneic. Objective Data Objective Data Vital Signs: Vital Signs Temp Pulse Resp BP Pulse Ox 97.9 F 108 H 20 H 134/100 H 94 01/06/21 17:51 01/06/21 17:51 01/06/21 17:51 01/06/21 17:51 01/06/21 17:51 Oxygen Flow Rate (L/min) [At 2 REST with Oxygen] Oxygen Flow Rate (L/min) [ 2 AMBULATING with Oxygen #1] Oxygen Flow Rate (L/min) [At 0 REST on Room Air] Oxygen Flow Rate (L/min) 2 Oxygen Delivery Method Nasal Cannula Weight: 47.2 kg Body Mass Index (BMI) 16.7 Intake & Output: Intake and Output for Last 24 Hours 01/04/21 01/05/21 01/06/21 23:59 23:59 23:59 Intake Total 1050 / 1050 Balance 1050 / 1050 Medical Nutrition Assessment Dietitian: Malnutrition Criteria Met Start: 01/06/21 10:37 Freq: Status: Active Protocol: Document 01/06/21 10:37 BP (Rec: 01/06/21 10:38 BP [id number]) Nutrition Malnutrition Evidence of Malnutrition Exists Yes Malnutrition (moderate): Acute Illness/Injury Evidenced By Weight Loss (Moderate), Physical Changes (Moderate) Clinical Problem Acute Disease or Injury Related Malnutrition Etiology Moderate malnutrition in the context of acute illness as evidenced by unintentional weight loss, and physical changes Signs/Symptoms as evidenced by pt with 5% wt loss x 1 month, pt with moderate temporal scooping/ depression, moderate orbital region hollow look/depression, moderate clavicle bone protrusion. Status Active Problem Recommendation Dietitian Recommendations/Changes Continue regular diet w/ ensure enlive at [place] for additional philip/protein if consumed. Lab / Micro Data Result Diagrams: 01/06/21 06:00 01/06/21 06:00 Labs: Laboratory Results - last 24 hr 01/05/21 19:10: WBC 7.3, RBC 4.77, Hgb 14.2, Hct 42.0, MCV 88.1, MCH 29.8, MCHC 33.8, RDW Std Deviation 42.5, RDW Coeff of Oral 13.1, Plt Count 486 H, MPV 8.8, Immature Gran % (Auto) 0.300, Neut % (Auto) 61.6, Lymph % (Auto) 19.4, [place] % (Auto) 10.3 H, Eos % (Auto) 7.7 H, Baso % (Auto) 0.7, Absolute Neuts (auto) 4.5, Absolute Lymphs (auto) 1.41, Nucleated RBC % 0 01/05/21 19:10: Sodium 127 L, Potassium 3.9, Chloride 90 L, Carbon Dioxide 28.0, Anion Gap 9, BUN 9, Creatinine 0.37 L, Estim Creat Clear Calc 38.31, Est GFR (MDRD) Af Amer 225, Est GFR (MDRD) Non-Af 186, BUN/Creatinine Ratio 24.5 H, Glucose 92, Calcium 8.8, Troponin I High Sens 10 01/06/21 06:00: WBC 1.9 L, RBC 4.63, Hgb 13.8, Hct 40.2, MCV 86.8, MCH 29.8, MCH C 34.3, RDW Std Deviation 40.9, RDW Coeff of Oral 12.9, Plt Count 521 H, MPV 9.3, Immature Gran % (Auto) 0.500, Neut % (Auto) 78.7 H, Lymph % (Auto) 18.2 L, [place] % (Auto) 2.6, Eos % (Auto) 0.0, Baso % (Auto) 0.0, Absolute Neuts (auto) 1.5 L, Absolute Lymphs (auto) 0.35 L, Nucleated RBC % 0, Differential Comment SCANNED, Diff Path Review May 01/06/21 06:00: Sodium 129 L, Potassium 3.3 L, Chloride 92 L, Carbon Dioxide 26.0, Anion Gap 11, BUN 13, Creatinine 0.42 L, Estim Creat Clear Calc 40.68, Est GFR (MDRD) Af Amer 195, Est GFR (MDRD) Non-Af 161, BUN/Creatinine Ratio 31.2 H, Glucose 160 H, Calcium 9.0 Micro: Microbiology 01/05/21 19:06 Nasal Secretion SARS-CoV-2 Antigen (Rapid) - Final Radiography Diagnostic Testing: Radiology Impression Chest X-Ray 01/05/21 20:00 IMPRESSION: Pulmonary hyperinflation with emphysematous change. There are interstitial opacities that may represent scar. There is blunting of left costophrenic angle which may represent pleural effusion or scar. There has been very little change from the reference exam. at 2038 Reported and signed by: Garret Redman MD Electronically Signed: Garret Redman MD at 20:37 EDT Tel , Service support , Physical Exam Const alert, oriented x3 and no apparent distress General Appearance: cooperative, well kempt and well developed Orientation / Consciousness: awake, oriented to person, oriented to place and oriented to time HEENT normocephalic, head/scalp atraumatic and moist oral mucous membranes Head and Scalp: normocephalic Eyes PERRL, EOMs intact bilaterally and conjunctivae normal Neck nuchal rigidity, supple, no JVD, thyroid normal and no carotid bruits General: trachea midline Resp normal respiratory effort, no retractions and no use of accessory muscles Resp Narrative: Scattered expiratory wheezes are noted bilaterally Auscultation: wheezes; Negative for rales or rhonchi Cardio regular rate, regular rhythm, S1 normal heart sound, S2 normal heart sound, no murmurs, no rub and no gallops GI normal to inspection, nondistended, normoactive bowel sounds, soft to palpation, non-tender and non-distended Extremity no clubbing, cyanosis or edema Skin no rashes or lesions noted General Skin Exam: no breakdown Neuro oriented x3, CN's II-XII intact bilaterally, no focal motor deficits and no sensory deficits noted Sensorium / Orientation: awake and alert Speech: speech normal Psych thought process normal and affect normal Assessment & Plan Assessment/Plan (1) COPD (chronic obstructive pulmonary disease): PLAN: 1. Acute exacerbation of COPD-patient will continue on her present medications, patient has not received the Covid vaccine yet, she agreed to receive it while she is in the hospital, I arrange for her to have the [employer] vaccine today. #2 chronic hypoxic respiratory failure-patient has home oxygen presently, she currently requires 2 L via nasal cannula. #3 moderate protein and caloric malnutrition as evidenced by intentional weight loss and physical changes with 5% weight loss x1 month-nutritional services is seeing patient presently #4 essential hypertension #5 chronic anxiety Charges/Coding Visit Charges Inpatient E&M: 31747 Subs Hosp L2
--- NOTE | 2021-01-06 19:08 | PCS.PANDOC ---
PANDEMIC DOCUMENTATION INITIATED: Date: 11/08/2020 Time: 190
[2021-01-07 03:45] VITALS: O2SAT 96
[2021-01-07 03:47] VITALS: BP 135/85; PULSE 81; RESP 18; TEMP 36.4; O2SAT 96
[2021-01-07] MEDS: 0.9% Saline Lock 10 ML Syringe IV (06:06)
[2021-01-07] MEDS: Ipratropium/Albuterol Sulfate 3 ML AMPUL.NEB INHALATION (06:43)
[2021-01-07 06:44] VITALS: PULSE 90; RESP 17; O2SAT 93
[2021-01-07 07:46] VITALS: BP 150/90; PULSE 89; RESP 20; TEMP 36.6; O2SAT 86; O2SAT 88; O2SAT 90; O2SAT 95
[2021-01-07] MEDS: Folic Acid 1 MG Tablet PO (07:53)
[2021-01-07] MEDS: Multivitamins,Ther W-Minerals Tablet 1 TABLET PO (07:53)
[2021-01-07] MEDS: Thiamine Hydrochloride 100 MG Tablet PO (07:53)
[2021-01-07 09:51] LABS: Pathologist Review Reviewed
[2021-01-07] MEDS: Acetaminophen 325 MG Tablet 650 MG PO (10:28)
[2021-01-07 11:07] VITALS: BP 128/83; PULSE 110; RESP 24; TEMP 36.8; O2SAT 95
--- NOTE | 2021-01-07 19:54 | DS.PCM_ITS ---
Providers Date of Admission: 01/05/21 Date of Discharge: 01/07/21 Primary Care Physician: Dr. May Garcia MD Reason For Visit: COPD EXACERBATION Diagnosis Discharge Diagnosis (1) COPD (chronic obstructive pulmonary disease): Status: Chronic Code(s): J44.9 - Chronic obstructive pulmonary disease, unspecified Plan: Discharge diagnosis: 1. Acute exacerbation of COPD #2 chronic hypoxic respiratory failure #3 moderate protein and caloric malnutrition as evidenced by intentional weight loss and physical changes with 5% weight loss x1 month #4 essential hypertension #5 chronic anxiety Medications at Discharge Home Medications citalopram 20 mg PO QHS 10/13/15 omeprazole 40 mg PO QHS 10/13/15 amlodipine 2.5 mg tablet 2.5 mg PO QHS 11/12/18 cyclobenzaprine 10 mg tablet 10 mg PO TID PRN 11/12/18 gabapentin 300 mg capsule 600 mg PO QHS 11/12/18 albuterol sulfate 2 puff INHALATION Q4H PRN PRN #1 inhaler 12/20/19 atorvastatin 10 mg PO QHS 10/25/20 ibuprofen 800 mg PO TID PRN 10/25/20 [id number]-vzcmxuxyz-wfkepjwo 1 each IH DAILY 01/05/21 prednisone 20 mg PO BID #12 tab 01/06/21 Hospital Course Operations None Procedures None Summary of Care Provided Minutes Spent on Discharge: 31 Hospital Course: 65-year-old white female was seen in the emergency room at [facility] with a chief complaint shortness of breath. Patient has a history of COPD and is on home oxygen which she uses at night only. Work- up in the emergency room included a chest x-ray which showed pulmonary hyperinflation with emphysematous changes, there was some opacities that might represent a scar on the chest x-ray. No acute process was noted. Patient's O2 sat at rest was 87% and she was put back on 1 to 2 L of oxygen via nasal cannula. Patient was admitted to [facility] and placed on IV corticosteroids and aerosol treatments, she improved during her hospitalization. On 01/07/2021, patient was seen and examined: On examination she appeared older than her stated age, she does not appear to be in any distress. Vital signs as documented. Skin warm and dry and without overt rashes. Neck without JVD, thyroid appears normal, trachea is midline, neck is supple. Lungs clear, normal air movement was noted. Heart exam notable for regular rhythm, normal sounds and absence of murmurs, rubs or gallops. Abdomen unremarkable and without evidence of organomegaly, masses, or abdominal aortic enlargement, bowel sounds are present in all 4 quadrants, no abdominal tenderness was noted. Extremities nonedematous, no cyanosis was noted, no clubbing was noted. Neuro: Cranial nerves II through XII are grossly intact, no focal motor deficits were noted, sensation to light touch and pinprick is intact, motor exam 5/5 throughout. Psych: Patient is alert and oriented x3, she does not appear anxious or depressed, she does not appear agitated. Patient was felt to be stable for discharge on 01/07/2021. She required supplemental oxygen at the time of discharge: 2 L at rest to maintain a pulse ox of 90%, 3 L on ambulation to maintain a pulse ox of 90%. She was expected to use oxygen in her home and outside of her house. Weight / BMI Weight Weight: 47.2 kg Body Mass Index (BMI) 16.7 ABG / Lab / Microbiology Data Result Diagrams: 01/06/21 06:00 01/06/21 06:00 Laboratory: Laboratory Results - last 24 hr 01/06/21 06:00: Diff Path Review Reviewed Microbiology: Microbiology 01/05/21 19:06 Nasal Secretion SARS-CoV-2 Antigen (Rapid) - Final D/C Instructions Discharge Diet: No restrictions Weight Bearing Status: Full weight bearing Meaningful Use Info Meaningful Use Diagnoses (Choose all that apply): None applicable Discharge Plan Admission Admit Date/Time: 01/05/21 23:14 Primary Reason for Your Visit: exacerbation of COPD Attending Provider: Elias Harden Primary Care Provider: May Garcia Instructions Additional Instructions / Restrictions: do not smoke Use oxygen at 2 L/min via nasal cannula at rest, use oxygen 4 L/min with ambulation Discharge Orders/Prescriptions Prescriptions: New prednisone 20 mg tablet 20 mg PO BID Qty: 12 RF: 0 Continued cyclobenzaprine 10 mg tablet 10 mg PO TID PRN (Reason: muscle spasm) RF: 0 gabapentin 300 mg capsule 600 mg PO QHS RF: 0 amlodipine [Norvasc] 2.5 mg tablet 2.5 mg PO QHS RF: 0 omeprazole 40 MG capsule,delayed release(DR/EC) 40 mg PO QHS RF: 0 citalopram 20 MG tablet 20 mg PO QHS RF: 0 albuterol sulfate 1 INHALER inhaler 2 puff inhalation Q4H PRN PRN (Reason: Shortness Of Breath) Qty: 1 RF: 0 atorvastatin 10 mg tablet 10 mg PO QHS RF: 0 ibuprofen 800 mg tablet 800 mg PO TID PRN (Reason: Pain) RF: 0 wjuxbqdlyov-esmrnvloc-hljuijnj 1 EACH blister with device 1 each IH DAILY RF: 0 Referrals / Follow Up: May Garcia MD [Primary Care Provider] - Within 2 Weeks Disposition Disposition (needs filled in before D/C Order can be placed): Home Health Service Charges/Coding Visit Charges Inpatient E&M: 09960 Disch Hosp
--- NOTE | 2021-01-10 16:02 | CASEMGMT ---
RADHA BOSWELL Discharge Follow Up Phone Call: SVETLANAE: 12 Strata:3 Call Date: 01/10/21 Discharge Date: 01/07/21 Time of Call:1601 Duration:< 1min Admitting Dx:COPD exac RADHA BOSWELL attempted to complete follow up phone call after recent hospitalization. Call forwarded to automatic unidentified voicemail. No message left at this time.
== END 2021-01-07 11:12 | disposition home health service (06) | DRG 191 ==
LOC: ED 23:03 → MS3 01-06 07:15
PROVIDERS: Admitting Provider Hospitalist; Emergency Provider Emergency Medicine; PCP Internal Medicine; Visit Provider Internal Medicine
DX: J43.9 Emphysema, unspecified (principal); E44.0 Moderate protein-calorie malnutrition; F10.20 Alcohol dependence, uncomplicated; J96.11 Chronic respiratory failure with hypoxia; Z68.1 Body mass index [BMI] 19.9 or less, adult; Z20.822 Contact with and (suspected) exposure to COVID-19; Z23 Encounter for immunization; I10 Essential (primary) hypertension; R13.10 Dysphagia, unspecified; G47.00 Insomnia, unspecified; F41.9 Anxiety disorder, unspecified; F32.A Depression, unspecified; F17.210 Nicotine dependence, cigarettes, uncomplicated; Z79.899 Other long term (current) drug therapy; Z79.52 Long term (current) use of systemic steroids; Z99.81 Dependence on supplemental oxygen
CPT/HCPCS: 0031A; 36415; 71045; 80048; 84484; 85025; 87426; 91303; 93005; 94640; 94668; 96372; 96374; 96376; 97802; 99218; 99251; 99285; 99406; A4216; G0378; G0463

== ENCOUNTER → 2021-09-10 | Outpatient (CLI) | payer MEDICARE, SELFPAY ==
--- NOTE | 2021-09-10 07:45 | CT_ITS ---
STUDY: LOW DOSE CT LUNG CANCER SCREENING REASON FOR EXAM: Female, 66 years old. 55 pack-year history active smoker. History of emphysema. RADIATION DOSAGE (If Supplied By Facility): CTDIvol = ( 2.01 ) mGy, DLP = ( 65.95 ) mGycm TECHNIQUE: No contrast was administered. Low dose technique was utilized (average mAS-38 and kVp 120). 1.25 mm axial source images with a slice interval of 1.25-mm were reconstructed in lung windows. 2.5 mm axial source images with a slice interval of 2.5-mm were reconstructed in lung windows. 5.0 mm axial source images with a slice interval of 5.0-mm were reconstructed in soft tissue windows. COMPARISON: Chest, 01/05/2021. CTA of the chest, 10/24/2019. NODULES: Nodule #: 1 Density: Solid Lung location: Right upper lobe: 2.5 cm from pleura Location in series: Series Number: 2 Image: 61 Size - D1 x D2 mm: 9 x 6 mm: 8 mm average diameter Margin: Irregular Shape: Manisha shape Calcification: Yes Fat: No Temporal comparison: Stable Nodule #: 2 Density: Lung location: Left lower lobe: 0 point cm from pleura Location in series: Series Number: 2 Image: 131 Size - D1 x D2 mm: 14 x 10 mm: 12 mm average diameter Margin: Spiculated Shape: Round Calcification: No Fat: No Temporal comparison: None Total lung nodules (excluding granulomas): 1 Emphysema: There is diffuse emphysematous changes in the lungs with subpleural blebs and scarring in the right lung apex. There is decreased infiltrate in the left lower lobe which reveals the second nodule. Endobronchial lesion: Aorta: Atherosclerotic tortuosity without aneurysm. This appears stable. CORONARY ARTERIES: Coronary artery calcification are present and unchanged. Heart: Normal Pulmonary artery: Normal Mediastinal nodes: Stable Other chest and abdominal findings: Degenerative change lumbar spine. There is absence of the left chest tube seen on the previous study. CT/Low Dose CT Lung Screening IMPRESSION: Lung-RADS category 4A - Screening at 3 months with LDCT or evaluation with PET/CT may be used. IMPORTANT NOTES FOR USE: ACR Lung-RADS Version 1.1 Assessment Categories Release Date: 2018 Category: Coded 0-4 bases on nodule(s) with highest degree of suspicion. Negative screen is defined as categories 1 and 2; a positive screen is defined as categories 3 and 4. Category 3 and 4A nodules that are unchanged on interval CT should be coded as category 2, and individuals returned to screening in 12 months. Category 4X: Category 3 or 4 nodules with additional imaging findings that increase the suspicion of lung cancer, such as spiculation, GGN that doubles in size in 1 year, enlarged lymph notes, etc. Category Modifiers: S (significant finding unrelated to lung cancer) Electronically Signed: Cale Marley DO at 23:21 EDT Reading Location ID and State: [address] [place] [address] Tel [phone], Service support ,
== END | disposition home or self-care (01) ==
LOC: CT 07:43
PROVIDERS: PCP Internal Medicine; Referring Provider Internal Medicine Critical Care Medicine; Visit Provider Internal Medicine Critical Care Medicine
DX: Z87.891 Personal history of nicotine dependence (principal)
CPT/HCPCS: 71271

== ENCOUNTER → 2021-09-27 | Outpatient (CLI) | payer MEDICARE, SELFPAY ==
--- NOTE | 2021-09-27 14:00 | PFTCOMP ---
COMPLETE PULMONARY FUNCTION TEST INTERPRETATION Brief HPI: Patient is a 66-year-old female, currently under the care of Dr. Bentley, who presents to [facility] for complete pulmonary function tests secondary to diagnosis of COPD. Respiratory therapist reports significant difficulty with exhalation and mouth seal. Best patient effort recorded. Interpretation: Forced expiration spirometry shows a severe large airways obstructive ventilatory defect with an FEV1 of 47% predicted. There is a significant bronchodilator response in FVC by strict ATS criteria. Spirograms are of poor quality and show exhalation for only 3 to 3-1/2 seconds, likely underestimating FVC. The respiratory flow volume loop shows decreased expiratory flow rates at all lung volumes consistent with airway obstruction. Lung volumes by body plethysmography show a normal total lung capacity at 4.63 L, 88% predicted. FRC and RV are elevated out of proportion. Lung volume measurements are consistent with air-trapping. Diffusion capacity by carbon monoxide is decreased at 31% predicted. The airway resistance is elevated. Compared to previous pulmonary function tests from 12/23/2019, there is been significant worsening in spirometry, but air-trapping appears to be somewhat improved. Impression: Partially reversible severe large airways obstructive ventilatory defect with a symmetric reduction diffusing capacity. Patient did have difficulty with testing, so clinical correlation is advised.
== END | disposition home or self-care (01) ==
LOC: PSN 09:51
PROVIDERS: PCP Internal Medicine; Referring Provider Internal Medicine Critical Care Medicine; Visit Provider Internal Medicine Critical Care Medicine
DX: J44.9 Chronic obstructive pulmonary disease, unspecified (principal)
CPT/HCPCS: 94060; 94726; 94729

== ENCOUNTER 2021-09-28 16:30 | Observation (INO) | payer MEDICARE, MEDICAID, SELFPAY ==
[2021-09-28] VITALS (11 sets, daily range): BP systolic 118–154; BP diastolic 76–89; PULSE 92–110; RESP 20–28; TEMP 36.8–37.1; O2SAT 88–98; BMI 17.9; BMI 18.3
--- NOTE | 2021-09-28 16:53 | EKG12_ITS ---
Test Reason : cp Blood Pressure : / mmHG Vent. Rate : 110 BPM Atrial Rate : 110 BPM P-R Int : 144 ms QRS Dur : 088 ms QT Int : 340 ms P-R-T Axes : 073 059 072 degrees QTc Int : 460 ms Sinus tachycardia Otherwise normal ECG Confirmed by KRYSTAL FOOTE, DIONICIO ([id number]), order editor KAI RODRIGUEZ ([id number]) on 10/01/2021 9:39:06 AM Referred By: Laina/Tati Confirmed By:DIONICIO RICE MD
--- NOTE | 2021-09-28 16:54 | EDS_ITS ---
HPI History of Present Illness Chief Complaint: Chest Pain Informant: patient Narrative Narrative: Waxing waning mid chest pain since yesterday. History of COPD half pack per day smoker currently. Productive cough for the past week. No fevers. Reports headache. No loss of taste or smell. No vomiting or diarrhea. COVID vaccinated with no infections in the past. Denies sick contacts. Denies recent travel, surgery, or immobilization. No history of PE or DVT. Denies any cardiac history. Denies history of diabetes. Prior Similar Symptoms: Yes PFSH PFS Medical History Alcoholism Allergic rhinitis Anxiety Back pain Chronic bronchitis Chronic hyponatremia Chronic respiratory failure with hypoxia COPD (chronic obstructive pulmonary disease) Depression Dysphagia Emphysema of lung Hypertension Insomnia Smoker Tobacco abuse Home Medications citalopram 20 mg tablet 20 mg PO QHS mood 10/13/15 [History Last Taken 09/27/21] omeprazole 40 mg capsule,delayed release 40 mg PO QHS acid reflux 10/13/15 [History Last Taken 09/27/21] amlodipine 2.5 mg tablet (Norvasc) 2.5 mg PO QHS blood pressure 11/12/18 [History Last Taken 09/27/21] cyclobenzaprine 10 mg tablet 10 mg PO TID PRN muscle spasm 11/12/18 [History Last Taken 09/27/21] gabapentin 300 mg capsule 600 mg PO QHS pain 11/12/18 [History Last Taken 09/27/21] albuterol sulfate 90 mcg/actuation aerosol inhaler 2 puff inhalation Q4H PRN PRN Shortness Of Breath ##1 12/20/19 [Rx Last Taken 09/27/21] atorvastatin 10 mg tablet 10 mg PO QHS CHOLESTEROL 10/25/20 [History Last Taken 09/27/21] ibuprofen 800 mg tablet 800 mg PO TID PRN Pain 10/25/20 [History Last Taken 10/24/20] codeine 10 mg-guaifenesin 100 mg/5 mL oral liquid 5 ml PO Q6H PRN Cough 08/31/21 [History Last Taken 1 Week Ago ~09/21/21] cholecalciferol (vitamin D3) 25 mcg (1,000 unit) tablet 25 mcg PO DAILY supplement 09/28/21 [History Last Taken 09/27/21] fluticasone fur. 200 mcg-umeclid 62.5 mcg-vilant 25 mcg inhalat.powder (Trelegy Ellipta) 1 inh inhalation DAILY copd 09/28/21 [History Last Taken 09/28/21] guaifenesin 600 mg tablet, extended release 12 hr (Mucinex) 1,200 mg PO Q12H PRN Allergy Symptoms 09/28/21 [History Last Taken Unknown] losartan 50 mg tablet 50 mg PO BID bp 09/28/21 [History Last Taken 09/27/21] thiamine HCl (vitamin B1) 100 mg tablet 100 mg PO TID supplement 09/28/21 [History Last Taken 09/27/21] Allergy/AdvReac Type Severity Reaction Status Date / Time bupropion [From Wellbutrin] Allergy Severe hallucinati Verified 09/28/21 16:32 ons Family History Mother Heart disease Hypertension CAD (coronary artery disease) Other No pertinent family history Surgical History S/P chest tube placement Social History household members: significant other history of recent travel: No Smoking Status: Current every day smoker tobacco type: cigarettes quit status: considering quitting counseling given: provider counseling and counseling >10 minutes alcohol intake: current alcohol intake frequency: 3 or more drinks per day Alcohol type: beer details: 4-6 beers daily. substance use type: does not use ROS ROS ED Constitutional Constitutional ED: Denies chills, fever(s) or sweats Eyes Eyes: Denies change in vision ENT ENT ED: Denies dysphagia or sore throat Cardiovascular Cardiovascular: Reports chest pain; Denies leg edema, palpitations or racing heartbeat Respiratory/Chest Respiratory/Chest: Reports cough, dyspnea and dyspnea on exertion Gastrointestinal Gastrointestinal: Denies abdominal pain, diarrhea, nausea or vomiting Genitourinary Genitourinary ED: Denies dysuria, hematuria or urinary frequency Musculoskeletal Musculoskeletal: Denies back pain, extremity pain or neck pain Integumentary Denies rash or wounds Neurologic Neurologic: Denies headache(s), paresthesias or weakness EXAM Physical Exam Const Vital Signs: 09/28/21 16:32 09/28/21 16:44 09/28/21 16:37 Temperature 98.2 F 98.2 F Temperature Source Oral Oral Pulse Rate 110 H 109 H 109 H Respiratory Rate 22 H 28 H 28 H Respiratory Effort Blood Pressure 118/87 H 146/86 H 146/86 H Blood Pressure Mean 97 106 Pulse Ox 93 95 95 Oxygen Delivery Method Room Air Room Air Room Air Oxygen Flow Rate (L/min) 09/28/21 16:45 09/28/21 17:08 09/28/21 17:31 Temperature Temperature Source Pulse Rate 100 92 Respiratory Rate 20 H 28 H Respiratory Effort Short of Breath Labored Blood Pressure 149/86 H Blood Pressure Mean 107 Pulse Ox 94 Oxygen Delivery Method Room Air Oxygen Flow Rate (L/min) 09/28/21 17:33 09/28/21 18:26 09/28/21 18:28 Temperature 98.2 F Temperature Source Oral Pulse Rate 92 97 Respiratory Rate 28 H 24 H Respiratory Effort Blood Pressure 149/86 H 154/89 H Blood Pressure Mean 110 Pulse Ox 94 88 94 Oxygen Delivery Method Room Air Room Air Nasal Cannula Oxygen Flow Rate (L/min) 3 09/28/21 18:42 Temperature 98.2 F Temperature Source Oral Pulse Rate 98 Respiratory Rate 20 H Respiratory Effort Blood Pressure 147/88 H Blood Pressure Mean 107 Pulse Ox 94 Oxygen Delivery Method Nasal Cannula Oxygen Flow Rate (L/min) 3 Positive well nourished and well developed General Appearance ED: well developed and NAD HEENT Reports moist mucous membranes normocephalic and atraumatic Eyes PERRL, EOMs intact bilaterally and conjunctivae normal General Eye ED: Yes normal appearance of both eyes Neck no lymphadenopathy and supple General: Negative for tenderness Chest Wall Chest: Negative for tenderness Resp Resp Narrative: Diminished breath sounds at the bases bilaterally. Speaking in short sentences. Effort and Inspection: symmetric chest movement; Negative for respiratory distress Cardio regular rhythm and no murmurs Rate: tachycardic Peripheral Pulses: pulses 2+ throughout GI normal to inspection, nondistended, normoactive bowel sounds and non-tender Palpation: Negative for guarding or rebound tenderness present Back/Spine no CVA tenderness and no thoracic nor lumbar tenderness Extremity normal to inspection General Extremety ED: Negative for edema or tenderness General Extremity: Negative for edema Neuro oriented x3 and no sensory deficits noted Sensorium / Orientation: awake and alert Skin Skin Narrative: Healing scab right distal anterior santiago, no erythema or drainage. Heart Score History: Slightly/Non-Suspicious ECG: Normal Age: >/= 65 years Risk Factors: 1 or 2 Risk Factors Troponin: </= Normal Limit Score: 3 MDM MDM MDM Narrative Medical decision making narrative: Patient presented with chest pain waxing waning however productive cough for a week. History exam are concerning for COPD exacerbation. EKG sinus tachycardia. Cardiac work-up initiated, low risk Wells criteria for PE, D-dimer obtained. Steroids aerosol treatments given. Will check for COVID. 1830: COVID-negative. Chest x-ray 1 view reviewed by myself and read by radiology negative. Cardiac work-up negative. D-dimer age-adjusted was normal. On reevaluation good waveforms oxygen 88%. She is placed on nasal cannula. Doxycycline added for COPD exacerbation. I spoke with hospitalist Dr. Traylor for admission. Sodium 126 chronically low from previous. She does admit to daily alcohol use. Lab Data Attestation: I reviewed the patient's lab results. Labs: Laboratory Results - last 24 hr 09/28/21 09/28/21 09/28/21 16:45 16:45 16:45 WBC 9.9 RBC 4.06 L Hgb 12.4 Hct 36.6 L MCV 90.1 MCH 30.5 MCHC 33.9 RDW Std Deviation 43.5 RDW Coeff of Oral 13.2 Plt Count 358 MPV 9.7 Immature Gran % (Auto) 0.400 Neut % (Auto) 76.1 H Lymph % (Auto) 11.0 L [place] % (Auto) 12.0 H Eos % (Auto) 0.3 Baso % (Auto) 0.2 Absolute Neuts (auto) 7.6 Absolute Lymphs (auto) 1.09 Nucleated RBC % 0 D-Dimer Quant (PE/DVT) 0.55 H* Sodium 126 L Potassium 3.9 Chloride 92 L Carbon Dioxide 29.0 Anion Gap 5 BUN 13 Creatinine 0.54 L Estim Creat Clear Calc 42.80 Est GFR (MDRD) Af Amer 144 Est GFR (MDRD) Non-Af 119 BUN/Creatinine Ratio 24.1 H Glucose 107 H Calcium 8.7 Troponin I High Sens 9 Radiography Chest X-Ray - ED: 1 View, Read by ED Physician and Read by Radiologist Diagnostic Testing: Clinical Impression(s) from Imaging Studies Chest X-Ray 09/28/21 17:00 IMPRESSION: COPD. Prominent tripp bilaterally, likely due to pulmonary hypertension. CT scan may be obtained if clinical suspicion for hilar mass is high. Electronically Signed: Stew Aggarwal MD at 17:28 EDT , EKG Initial EKG: Attestation: I personally reviewed and interpreted this EKG as follows: Comments: Sinus rhythm 110, no ST or T wave changes. Discharge Plan Dx/Rx/DC Orders Clinical Impression: Hyponatremia, COPD exacerbation, Hypoxemia, Alcohol dependence Disposition Disposition: Acute Care Hospital [facility] Discharge Date/Time: 09/28/21 19:05
--- NOTE | 2021-09-28 17:00 | RAD_ITS ---
STUDY: X-RAY CHEST REASON FOR EXAM: Female, 66 years old. cough TECHNIQUE: 1 view COMPARISON: 01/05/2021 FINDINGS: Cardiomediastinal silhouette is unremarkable. Costophrenic angles are sharp. Prominent tripp bilaterally, likely due to pulmonary interpretation. Linear scars noted in the left midlung zone. Lungs are hyperinflated but otherwise clear. The trachea is midline. There is no pneumothorax. Multilevel thoracic spondylosis is seen. RAD/Chest 1 View (Portable) IMPRESSION: COPD. Prominent tripp bilaterally, likely due to pulmonary hypertension. CT scan may be obtained if clinical suspicion for hilar mass is high. Electronically Signed: Stew Aggarwal MD at 17:28 EDT ,
[2021-09-28] MEDS: MethylPREDNISolone 125 MG/2 ML Vial 60 MG IV (17:02)
[2021-09-28] MEDS: Ipratropium/Albuterol Sulfate 3 ML AMPUL.NEB INHALATION ×2 (17:07→20:20)
[2021-09-28 17:23] LABS: Anion Gap 5 (5-15); BUN 13 mg/dL (7-18); BUN/Creat Ratio 24.1 RATIO (10-20); Calcium,Total 8.7 mg/dL (8.5-10.1); Chloride 92 mmol/L (98-107); Creatinine, Serum 0.54 mg/dL (0.55-1.02); EST Glomerular Filtration Rate 119 mL/min (>60); Est Glom Filt Rate - Afr Amer 144 mL/min (>60); Glucose 107 mg/dL (74-106); Potassium 3.9 mmol/L (3.5-5.1); Sodium Level 126 mmol/L (136-145); Troponin-I HS 9 pg/mL (3.0-54.0)
[2021-09-28 17:26] LABS: Absolute Lymphocyte Count 1.09 X10^3/uL (0.83-4.51); Absolute Neutrophil Count 7.6 X10^3/uL (2.0-7.7); Basophil# 0.02 X10^3/uL; Basophil% 0.2 % (0-1); Eosinophil# 0.03 X10^3/uL; Eosinophils% 0.3 % (0-5); Hematocrit 36.6 % (37-47); Hemoglobin 12.4 g/dL (12.0-15.0); Lymphocyte # 1.09 X10^3/ul (0.83-4.51); Mean Corp Hgb Conc 33.9 g/dL (32-36); Mean Corpuscular Hgb 30.5 pg (27.0-32.0); Mean Corpuscular Volume 90.1 fL (81-99); Mean Platelet Vol. 9.7 fl (6.2-12.0); Monocyte# 1.19 X10^3/uL; NRBC Flagged by Analyzer 0 % (0-5); Neutrophil # 7.57 X10^3/uL (2.7-7.7); Neutrophil % 76.1 % (47-70); Platelet Count 358 K/mm3 (150-450); RBC Distribution Width CV 13.2 % (11.6-14.6); RBC Distribution Width SD 43.5 fl (35.1-43.9); Red Blood Count 4.06 M/mm3 (4.2-5.4); White Blood Count 9.9 K/mm3 (4.4-11.0)
[2021-09-28 17:43] LABS: D-Dimer Quantitative (DVT/PE) 0.55 FEU/ug/m (0.27-0.49)
--- NOTE | 2021-09-28 17:44 | ED.RN ---
DR. MARIE MADE AWARE OF CRITICAL D-DIMER LEVEL OF 0.55.
--- NOTE | 2021-09-28 18:52 | PCM.HP.STD ---
HPI - General General Date of Admission: 09/28/21 Date of Service: 09/28/21 Chief Complaint: Shortness of breath HPI Narrative SPENCER MENDES, is a 66 F who presents with acute worsening of her chronic shortness of breath. Patient has a known history of COPD and over the past couple days has progressively been short of breath. Patient was noted to be 88% on room air. Patient received methylprednisolone in the emergency room and hospitalist contacted for admission for COPD exacerbation. Patient is complaining of chest pain that is worse when taking a deep breath or when she coughs. [facility] Medical History Alcoholism Allergic rhinitis Anxiety Back pain Chronic bronchitis Chronic hyponatremia Chronic respiratory failure with hypoxia COPD (chronic obstructive pulmonary disease) Depression Dysphagia Emphysema of lung Hypertension Insomnia Smoker Tobacco abuse Home Medications citalopram 20 mg tablet 20 mg PO QHS mood 10/13/15 [History Last Taken 01/04/21] omeprazole 40 mg capsule,delayed release 40 mg PO QHS acid reflux 10/13/15 [History Last Taken 01/04/21] amlodipine 2.5 mg tablet (Norvasc) 2.5 mg PO QHS blood pressure 11/12/18 [History Last Taken 01/04/21] cyclobenzaprine 10 mg tablet 10 mg PO TID PRN muscle spasm 11/12/18 [History Last Taken 10/24/20] gabapentin 300 mg capsule 600 mg PO QHS pain 11/12/18 [History Last Taken 01/04/21] albuterol sulfate 90 mcg/actuation aerosol inhaler 2 puff inhalation Q4H PRN PRN Shortness Of Breath ##1 12/20/19 [Rx Last Taken 01/05/21] atorvastatin 10 mg tablet 10 mg PO QHS CHOLESTEROL 10/25/20 [History Last Taken 01/04/21] ibuprofen 800 mg tablet 800 mg PO TID PRN Pain 10/25/20 [History Last Taken 10/24/20] codeine 10 mg-guaifenesin 100 mg/5 mL oral liquid 5 ml PO Q6H PRN 08/31/21 [History Last Taken Unknown] fluticasone fur. 200 mcg-umeclid 62.5 mcg-vilant 25 mcg inhalat.powder (Trelegy Ellipta) 1 inh inhalation DAILY copd 09/28/21 [History Last Taken 09/28/21] losartan 50 mg tablet 50 mg PO BID bp 09/28/21 [History Last Taken 09/27/21] Allergy/AdvReac Type Severity Reaction Status Date / Time bupropion [From Wellbutrin] Allergy Severe hallucinati Verified 09/28/21 16:32 ons Family History Mother Heart disease Hypertension CAD (coronary artery disease) Other No pertinent family history Surgical History S/P chest tube placement Social History household members: significant other history of recent travel: No Smoking Status: Current every day smoker tobacco type: cigarettes quit status: considering quitting counseling given: provider counseling and counseling >10 minutes alcohol intake: current alcohol intake frequency: 3 or more drinks per day Alcohol type: beer details: 4-6 beers daily. substance use type: does not use ROS ROS Narrative No weight loss. No fever chills. All review of systems were negative except as mentioned above in the history of present illness and the other review of systems. Vital Signs Vital Signs Vital Signs: 09/28/21 16:32 09/28/21 16:44 09/28/21 16:37 Temperature 36.8 C 36.8 C Temperature Source Oral Oral Pulse Rate 110 H 109 H 109 H Respiratory Rate 22 H 28 H 28 H Respiratory Effort Blood Pressure 118/87 H 146/86 H 146/86 H Blood Pressure Mean 97 106 Pulse Ox 93 95 95 Oxygen Delivery Method Room Air Room Air Room Air Oxygen Flow Rate (L/min) 09/28/21 16:45 09/28/21 17:08 09/28/21 17:31 Temperature Temperature Source Pulse Rate 100 92 Respiratory Rate 20 H 28 H Respiratory Effort Short of Breath Labored Blood Pressure 149/86 H Blood Pressure Mean 107 Pulse Ox 94 Oxygen Delivery Method Room Air Oxygen Flow Rate (L/min) 09/28/21 17:33 09/28/21 18:26 09/28/21 18:28 Temperature 36.8 C Temperature Source Oral Pulse Rate 92 97 Respiratory Rate 28 H 24 H Respiratory Effort Blood Pressure 149/86 H 154/89 H Blood Pressure Mean 110 Pulse Ox 94 88 94 Oxygen Delivery Method Room Air Room Air Nasal Cannula Oxygen Flow Rate (L/min) 3 09/28/21 18:42 Temperature 36.8 C Temperature Source Oral Pulse Rate 98 Respiratory Rate 20 H Respiratory Effort Blood Pressure 147/88 H Blood Pressure Mean 107 Pulse Ox 94 Oxygen Delivery Method Nasal Cannula Oxygen Flow Rate (L/min) 3 Weight Weight: 50.349 kg Body Mass Index (BMI) 17.9 Physical Exam Const alert and no apparent distress HEENT normocephalic, head/scalp atraumatic, hearing grossly normal bilaterally and moist oral mucous membranes Resp Resp Narrative: Diminished but clear. No wheezes. Cardio regular rate, regular rhythm, S1 normal heart sound and S2 normal heart sound GI normal to inspection, nondistended, normoactive bowel sounds, soft to palpation, non-tender and non-distended Extremity normal to inspection Neuro Neuro Narrative: Does have a macular patch over her left ankle. Some eczema on her feet. Healing wound on her right anterior santiago. Psych affect normal Results Lab / Micro Data Attestation: I reviewed the patient's lab results. Result Diagrams: 09/28/21 16:45 09/28/21 16:45 Labs: Laboratory Results - last 24 hr 09/28/21 16:45: WBC 9.9, RBC 4.06 L, Hgb 12.4, Hct 36.6 L, MCV 90.1, MCH 30.5, MCHC 33.9, RDW Std Deviation 43.5, RDW Coeff of Oral 13.2, Plt Count 358, MPV 9.7, Immature Gran % (Auto) 0.400, Neut % (Auto) 76.1 H, Lymph % (Auto) 11.0 L, [place] % (Auto) 12.0 H, Eos % (Auto) 0.3, Baso % (Auto) 0.2, Absolute Neuts (auto) 7.6, Absolute Lymphs (auto) 1.09, Nucleated RBC % 0 09/28/21 16:45: D-Dimer Quant (PE/DVT) 0.55 H* 09/28/21 16:45: Sodium 126 L, Potassium 3.9, Chloride 92 L, Carbon Dioxide 29.0, Anion Gap 5, BUN 13, Creatinine 0.54 L, Estim Creat Clear Calc 42.80, Est GFR (MDRD) Af Amer 144, Est GFR (MDRD) Non-Af 119, BUN/Creatinine Ratio 24.1 H, Glucose 107 H, Calcium 8.7, Troponin I High Sens 9 Micro: Microbiology 09/28/21 17:00 Nasal Secretion SARS-CoV-2 Antigen (Rapid) - Final EKG Initial EKG: Attestation: I personally reviewed and interpreted this EKG as follows: EKG Rhythm Intrepretation: Sinus Tachycardia Radiology Impression Chest X-Ray 09/28/21 17:00 IMPRESSION: COPD. Prominent tripp bilaterally, likely due to pulmonary hypertension. CT scan may be obtained if clinical suspicion for hilar mass is high. Electronically Signed: Stew Aggarwal MD at 17:28 EDT , Assessment & Plan Assessment/Plan (1) COPD exacerbation: PLAN: Patient does have known moderately severe obstructive ventilatory impairment based on PFTs. Continue with methylprednisolone and bronchodilators. Follow-up with pulmonary as outpatient. (2) Chronic hypoxemic respiratory failure: PLAN: Secondary to her advanced COPD. Patient states that she only uses oxygen at night but has been using it more recently. Pulmonary note from last month mention that she was not using oxygen on a regular basis. (3) Protein-calorie malnutrition, moderate: PLAN: Likely due to her chronic disease add Ensure Nutrition consult (4) Hyponatremia: PLAN: Unclear etiology. Could be SIADH Check urine studies. Check serum osmolality. PLAN: Plan 5. Nicotine abuse: Advised cessation. Patient states that she did not quit because the patches are too expensive. Metformin she needs to just quit to daily habitual things to help with her quitting nicotine. 6. VTE prophylaxis with enoxaparin. 7. COVID-19 vaccination status: Patient has been vaccinated for COVID-19. Charges/Coding Visit Charges Inpatient E&M: 37437 Init Hosp L2
[2021-09-28] MEDS: Ibuprofen 400 MG Tablet 800 MG PO (20:45)
[2021-09-28] MEDS: guaiFENesin/Codeine 5 ML UDC PO (20:46)
[2021-09-28] MEDS: Gabapentin 600 MG Tablet PO (22:03)
[2021-09-28] MEDS: Pantoprazole Sodium 40 MG Tablet PO (22:03)
[2021-09-28] MEDS: Atorvastatin Calcium 10 MG Tablet PO (22:03)
[2021-09-28] MEDS: Citalopram 20 MG Tablet PO (22:03)
[2021-09-28] MEDS: amLODIPine 2.5 MG Tablet PO (22:03)
[2021-09-29 01:56] LABS: Bacteria 0 SEEN /hpf (None Seen); Mucous, Urine 0 SEEN /hpf (<or=2+); Red Blood Cells-Urine 0 SEEN /hpf (0-5); White Blood Cells 0 SEEN /hpf (0-5)
[2021-09-29 02:00] VITALS: BP 113/79; PULSE 74; RESP 18; TEMP 36.6; O2SAT 94
[2021-09-29 02:02] LABS: Color, Urine Yellow (Yellow); Glucose, Dipstick 1000 mg/dl (Normal); Ketone-Dipstick Negative (Negative); Leukocyte Esterase-Dipstick Negative /ul (Negative); Nitrite-Dipstick Negative (Negative); Occult Blood-Urine Negative /ul (Negative); Protein-Dipstick 15 mg/dl (Negative); Urine Bilirubin Dipstick Negative (Negative); Urine Clarity Clear (Clear); Urine Urobilinogen Normal (Normal); Urine pH 6.5 (5.0 - 8.0)
[2021-09-29 02:10] LABS: Urine Sodium 25 mmol/L (Not Establ.)
[2021-09-29 02:42] LABS: Osmolality, Urine 322 mOsm/KG
[2021-09-29 02:53] LABS: Squamous Epithelial Cells - UA 0-5 SEEN /hpf (5-10)
[2021-09-29] MEDS: 0.9% Saline Lock 10 ML Syringe IV (05:14)
--- NOTE | 2021-09-29 06:33 | CPS ---
PATIENT WAS SCHEDULED OP FOR 6 MIN WALK TESTING TODAY. [facility], NEEDS TO CALL AND R/S WHEN D/C FROM HOSPITAL
--- NOTE | 2021-09-29 06:42 | PCM.PN.HOSP ---
Subjective Subjective Feels well. Breathing better Objective Data Objective Data Vital Signs: Vital Signs Temp Pulse Resp BP Pulse Ox O2 Del Method O2 Flow Rate 36.6 C 74 18 113/79 94 Nasal Cannula 3 09/29/21 02:00 09/29/21 02:00 09/29/21 02:00 09/29/21 02:00 09/29/21 02:00 09/29/21 02:00 09/29/21 02:00 Oxygen Flow Rate (L/min) 3 Oxygen Delivery Method Nasal Cannula Weight: 51.6 kg Body Mass Index (BMI) 18.3 Intake & Output: Intake and Output for Last 24 Hours 09/27/21 09/28/21 09/29/21 23:59 23:59 23:59 Intake Total 260 / 260 Output Total 300 / 300 Balance 260 / -40 -300 / -300 Lab / Micro Data Result Diagrams: 09/28/21 16:45 09/29/21 06:40 Labs: Laboratory Results - last 24 hr 09/28/21 16:45: WBC 9.9, RBC 4.06 L, Hgb 12.4, Hct 36.6 L, MCV 90.1, MCH 30.5, MCHC 33.9, RDW Std Deviation 43.5, RDW Coeff of Oral 13.2, Plt Count 358, MPV 9.7, Immature Gran % (Auto) 0.400, Neut % (Auto) 76.1 H, Lymph % (Auto) 11.0 L, [place] % (Auto) 12.0 H, Eos % (Auto) 0.3, Baso % (Auto) 0.2, Absolute Neuts (auto) 7.6, Absolute Lymphs (auto) 1.09, Nucleated RBC % 0 09/28/21 16:45: D-Dimer Quant (PE/DVT) 0.55 H* 09/28/21 16:45: Sodium 126 L, Potassium 3.9, Chloride 92 L, Carbon Dioxide 29.0, Anion Gap 5, BUN 13, Creatinine 0.54 L, Estim Creat Clear Calc 42.80, Est GFR (MDRD) Af Amer 144, Est GFR (MDRD) Non-Af 119, BUN/Creatinine Ratio 24.1 H, Glucose 107 H, Calcium 8.7, Troponin I High Sens 9 09/28/21 21:45: Urine Color Yellow, Urine Clarity Clear, Urine pH 6.5, Ur Specific [place] 1.010, Urine Protein 15 H, Urine Glucose (UA) 1000 H, Urine Ketones Negative, Urine Occult Blood Negative, Urine Nitrite Negative, Urine Bilirubin Negative, Urine Urobilinogen Normal, Ur Leukocyte Esterase Negative, Urine RBC 0 SEEN, Urine WBC 0 SEEN, Ur Squamous Epith Cells 0-5 SEEN, Urine Bacteria 0 SEEN, Urine Mucus 0 SEEN 09/28/21 21:45: Urine Osmolality 322, Ur Random Sodium 25 Micro: Microbiology 09/28/21 17:00 Nasal Secretion SARS-CoV-2 Antigen (Rapid) - Final Radiography Diagnostic Testing: Radiology Impression Chest X-Ray 09/28/21 17:00 IMPRESSION: COPD. Prominent tripp bilaterally, likely due to pulmonary hypertension. CT scan may be obtained if clinical suspicion for hilar mass is high. Electronically Signed: Stew Aggarwal MD at 17:28 EDT , Physical Exam Const alert and no apparent distress Resp normal respiratory effort, no retractions, no use of accessory muscles and clear to auscultation bilaterally Cardio regular rate, regular rhythm, S1 normal heart sound and S2 normal heart sound Assessment & Plan Assessment/Plan (1) COPD exacerbation: PLAN: Patient does have known moderately severe obstructive ventilatory impairment based on PFTs. Continue with methylprednisolone and bronchodilators. Follow-up with pulmonary as outpatient. Improved. Discharged with 5-day prednisone (2) Chronic hypoxemic respiratory failure: PLAN: Acute exacerbation on chronic hypoxic respiratory failure Secondary to her advanced COPD and acute exacerbation. Patient states that she only uses oxygen at night but has been using it more recently. Pulmonary note from last month mention that she was not using oxygen on a regular basis. Subjectively improved. Amatory pulse ox, patient was 83% on 2 L and 94% on 4 L and 100% with 3 L at rest. Patient already has oxygen at home. Case management looking to see if she needs new prescription or not. (3) Protein-calorie malnutrition, moderate: PLAN: BMI 18.4 Likely due to her chronic disease add Ensure Nutrition consult (4) Hyponatremia: PLAN: Unclear etiology. Could be SIADH U Osm 322, U Sod 25 Follow up S Osm, TSH, Cortisol PLAN: Plan 5. Nicotine abuse: Advised cessation. Patient states that she did not quit because the patches are too expensive. Metformin she needs to just quit to daily habitual things to help with her quitting nicotine. 6. VTE prophylaxis with enoxaparin. 7. COVID-19 vaccination status: Patient has been vaccinated for COVID-19. Discharge home
[2021-09-29 07:28] VITALS: PULSE 80; RESP 18; O2SAT 97
[2021-09-29] MEDS: Ipratropium/Albuterol Sulfate 3 ML AMPUL.NEB INHALATION ×2 (07:28→11:05)
[2021-09-29 08:35] VITALS: O2SAT 100; O2SAT 83; O2SAT 88; O2SAT 94
[2021-09-29] MEDS: Enoxaparin 40 MG/0.4 ML Syringe SC (08:38)
[2021-09-29 08:42] LABS: Osmolality, Serum 274 mOsm/KG (280-301)
[2021-09-29 08:48] LABS: Anion Gap 10 (5-15); BUN 11 mg/dL (7-18); Chloride 96 mmol/L (98-107); EST Glomerular Filtration Rate 130 mL/min (>60); Est Glom Filt Rate - Afr Amer 157 mL/min (>60); Estimated Creatinine Clearance 43.86 ml/min; Glucose 153 mg/dL (74-106); Sodium Level 127 mmol/L (136-145); Thyroid Stim Hormone (TSH) 0.17 uIU/mL (0.358-3.74)
[2021-09-29 11:05] VITALS: PULSE 85; RESP 18
--- NOTE | 2021-09-29 13:00 | PCM.DC ---
Discharge Instructions Diet Discharge Diet: No restrictions Dressing / Incision Call your doctor if your incision/area has: Continuous Slow Oozing Follow Up Care Test Results: Test results from this visit will be discussed in further detail at your follow-up appointment, if applicable. Discharge Plan Admission Admit Date/Time: 09/28/21 18:45 Primary Reason for Your Visit: COPD exacerbation Attending Provider: Matt Traylor Primary Care Provider: May Garcia Discharge Orders/Prescriptions Prescriptions: New prednisone 20 mg tablet 40 mg PO DAILY Qty: 8 0RF Continued cyclobenzaprine 10 mg tablet 10 mg PO TID PRN (Reason: muscle spasm) gabapentin 300 mg capsule 600 mg PO QHS amlodipine [Norvasc] 2.5 mg tablet 2.5 mg PO QHS codeine-guaifenesin 10-100 mg/5 mL liquid 5 ml PO Q6H PRN (Reason: Cough) Label Comments: TAKE 5-10ML BY MOUTH FOUR TIMES DAILY NEEDED FOR 7 DAYS omeprazole 40 MG capsule,delayed release(DR/EC) 40 mg PO QHS citalopram 20 MG tablet 20 mg PO QHS albuterol sulfate 1 INHALER inhaler 2 puff inhalation Q4H PRN PRN (Reason: Shortness Of Breath) Qty: 1 0RF atorvastatin 10 mg tablet 10 mg PO QHS ibuprofen 800 mg tablet 800 mg PO TID PRN (Reason: Pain) Trelegy Ellipta 200-62.5-25 mcg blister with device 1 inh inhalation DAILY losartan 50 mg tablet 50 mg PO BID thiamine HCl (vitamin B1) 100 mg Tablet 100 mg PO TID cholecalciferol (vitamin D3) 25 mcg (1,000 unit) Tablet 25 mcg PO DAILY guaifenesin [Mucinex] 600 mg Tablet Extended Release 12hr 1,200 mg PO Q12H PRN (Reason: Allergy Symptoms) Referrals / Follow Up: May Garcia MD [Primary Care Provider] - Within 2 Weeks Mihaela Austin NP, [employer] [Nurse Practitioner] - 10/06/21 11:15 am Disposition Disposition (needs filled in before D/C Order can be placed): Home, Self Care
--- NOTE | 2021-09-29 13:06 | DS.PCM_ITS ---
Providers Date of Admission: 09/28/21 Primary Care Physician: Dr. May Garcia MD Reason For Visit: COPD EXACERBATION Diagnosis Discharge Diagnosis (1) COPD exacerbation: Status: Chronic Code(s): J44.1 - Chronic obstructive pulmonary disease with (acute) exacerbation Plan: Patient does have known moderately severe obstructive ventilatory impairment based on PFTs. Continue with methylprednisolone and bronchodilators. Follow-up with pulmonary as outpatient. Improved. Discharged with 5-day prednisone (2) Chronic hypoxemic respiratory failure: Status: Chronic Code(s): J96.11 - Chronic respiratory failure with hypoxia Plan: Acute exacerbation on chronic hypoxic respiratory failure Secondary to her advanced COPD and acute exacerbation. Patient states that she only uses oxygen at night but has been using it more recently. Pulmonary note from last month mention that she was not using oxygen on a regular basis. Subjectively improved. Amatory pulse ox, patient was 83% on 2 L and 94% on 4 L and 100% with 3 L at rest. Patient already has oxygen at home. Case management looking to see if she needs new prescription or not. (3) Protein-calorie malnutrition, moderate: Status: Acute Code(s): E44.0 - Moderate protein-calorie malnutrition Plan: BMI 18.4 Likely due to her chronic disease add Ensure Nutrition consult (4) Hyponatremia: Status: Acute Code(s): E87.1 - Hypo-osmolality and hyponatremia Plan: Unclear etiology. Could be SIADH U Osm 322, U Sod 25 Follow up S Osm 274, TSH 0.17, Cortisol 23.7 Fluid restrict. Follow up thyroid studies as outpt. Plan 5. Nicotine abuse: Advised cessation. Patient states that she did not quit because the patches are too expensive. Metformin she needs to just quit to daily habitual things to help with her quitting nicotine. 6. VTE prophylaxis with enoxaparin. 7. COVID-19 vaccination status: Patient has been vaccinated for COVID-19. Discharge home Medications at Discharge Home Medications citalopram 20 mg tablet 20 mg PO QHS mood 10/13/15 omeprazole 40 mg capsule,delayed release 40 mg PO QHS acid reflux 10/13/15 amlodipine 2.5 mg tablet (Norvasc) 2.5 mg PO QHS blood pressure 11/12/18 cyclobenzaprine 10 mg tablet 10 mg PO TID PRN muscle spasm 11/12/18 gabapentin 300 mg capsule 600 mg PO QHS pain 11/12/18 albuterol sulfate 90 mcg/actuation aerosol inhaler 2 puff inhalation Q4H PRN PRN Shortness Of Breath ##1 12/20/19 atorvastatin 10 mg tablet 10 mg PO QHS CHOLESTEROL 10/25/20 ibuprofen 800 mg tablet 800 mg PO TID PRN Pain 10/25/20 codeine 10 mg-guaifenesin 100 mg/5 mL oral liquid 5 ml PO Q6H PRN Cough 08/31/21 cholecalciferol (vitamin D3) 25 mcg (1,000 unit) tablet 25 mcg PO DAILY supplement 09/28/21 fluticasone fur. 200 mcg-umeclid 62.5 mcg-vilant 25 mcg inhalat.powder (Trelegy Ellipta) 1 inh inhalation DAILY copd 09/28/21 guaifenesin 600 mg tablet, extended release 12 hr (Mucinex) 1,200 mg PO Q12H PRN Allergy Symptoms 09/28/21 losartan 50 mg tablet 50 mg PO BID bp 09/28/21 thiamine HCl (vitamin B1) 100 mg tablet 100 mg PO TID supplement 09/28/21 prednisone 20 mg tablet 40 mg PO DAILY #8 tabs 09/29/21 Weight / BMI Weight Weight: 51.6 kg Body Mass Index (BMI) 18.3 ABG / Lab / Microbiology Data Result Diagrams: 09/28/21 16:45 09/29/21 06:40 Laboratory: Laboratory Results - last 24 hr 09/28/21 16:45: WBC 9.9, RBC 4.06 L, Hgb 12.4, Hct 36.6 L, MCV 90.1, MCH 30.5, MCHC 33.9, RDW Std Deviation 43.5, RDW Coeff of Oral 13.2, Plt Count 358, MPV 9.7, Immature Gran % (Auto) 0.400, Neut % (Auto) 76.1 H, Lymph % (Auto) 11.0 L, [place] % (Auto) 12.0 H, Eos % (Auto) 0.3, Baso % (Auto) 0.2, Absolute Neuts (auto) 7.6, Absolute Lymphs (auto) 1.09, Nucleated RBC % 0 09/28/21 16:45: D-Dimer Quant (PE/DVT) 0.55 H* 09/28/21 16:45: Sodium 126 L, Potassium 3.9, Chloride 92 L, Carbon Dioxide 29.0, Anion Gap 5, BUN 13, Creatinine 0.54 L, Estim Creat Clear Calc 42.80, Est GFR (MDRD) Af Amer 144, Est GFR (MDRD) Non-Af 119, BUN/Creatinine Ratio 24.1 H, Glucose 107 H, Calcium 8.7, Troponin I High Sens 9 09/28/21 21:45: Urine Color Yellow, Urine Clarity Clear, Urine pH 6.5, Ur Specific [place] 1.010, Urine Protein 15 H, Urine Glucose (UA) 1000 H, Urine Ketones Negative, Urine Occult Blood Negative, Urine Nitrite Negative, Urine Bilirubin Negative, Urine Urobilinogen Normal, Ur Leukocyte Esterase Negative, Urine RBC 0 SEEN, Urine WBC 0 SEEN, Ur Squamous Epith Cells 0-5 SEEN, Urine Bacteria 0 SEEN, Urine Mucus 0 SEEN 09/28/21 21:45: Urine Osmolality 322, Ur Random Sodium 25 09/29/21 06:40: Sodium 127 L, Potassium 4.0, Chloride 96 L, Carbon Dioxide 21.0, Anion Gap 10, BUN 11, Creatinine 0.50 L, Estim Creat Clear Calc 43.86, Est GFR (MDRD) Af Amer 157, Est GFR (MDRD) Non-Af 130, BUN/Creatinine Ratio 22.0 H, Glucose 153 H, Calcium 9.0, TSH 0.17 L 09/29/21 06:40: Serum Osmolality 274 L 09/29/21 06:40: Cortisol 23.70 H Microbiology: Microbiology 09/28/21 17:00 Nasal Secretion SARS-CoV-2 Antigen (Rapid) - Final Radiography Diagnostic Testing: Radiology Impression Chest X-Ray 09/28/21 17:00 IMPRESSION: COPD. Prominent tripp bilaterally, likely due to pulmonary hypertension. CT scan may be obtained if clinical suspicion for hilar mass is high. Electronically Signed: Stew Aggarwal MD at 17:28 EDT , D/C Instructions Discharge Diet: No restrictions Call your doctor if your incision/area has: Continuous Slow Oozing Meaningful Use Info Meaningful Use Diagnoses (Choose all that apply): None applicable Discharge Plan Admission Admit Date/Time: 09/28/21 18:45 Primary Reason for Your Visit: COPD exacerbation Attending Provider: Matt Traylor Primary Care Provider: May Garcia Instructions Additional Instructions / Restrictions: 1500 ml fluid/day Discharge Orders/Prescriptions Prescriptions: New prednisone 20 mg tablet 40 mg PO DAILY Qty: 8 0RF Continued cyclobenzaprine 10 mg tablet 10 mg PO TID PRN (Reason: muscle spasm) gabapentin 300 mg capsule 600 mg PO QHS amlodipine [Norvasc] 2.5 mg tablet 2.5 mg PO QHS codeine-guaifenesin 10-100 mg/5 mL liquid 5 ml PO Q6H PRN (Reason: Cough) Label Comments: TAKE 5-10ML BY MOUTH FOUR TIMES DAILY NEEDED FOR 7 DAYS omeprazole 40 MG capsule,delayed release(DR/EC) 40 mg PO QHS citalopram 20 MG tablet 20 mg PO QHS albuterol sulfate 1 INHALER inhaler 2 puff inhalation Q4H PRN PRN (Reason: Shortness Of Breath) Qty: 1 0RF atorvastatin 10 mg tablet 10 mg PO QHS ibuprofen 800 mg tablet 800 mg PO TID PRN (Reason: Pain) Trelegy Ellipta 200-62.5-25 mcg blister with device 1 inh inhalation DAILY losartan 50 mg tablet 50 mg PO BID thiamine HCl (vitamin B1) 100 mg Tablet 100 mg PO TID cholecalciferol (vitamin D3) 25 mcg (1,000 unit) Tablet 25 mcg PO DAILY guaifenesin [Mucinex] 600 mg Tablet Extended Release 12hr 1,200 mg PO Q12H PRN (Reason: Allergy Symptoms) Referrals / Follow Up: May Garcia MD [Primary Care Provider] - Within 2 Weeks Mihaela Austin NP, [employer] [Nurse Practitioner] - 10/06/21 11:15 am Disposition Disposition (needs filled in before D/C Order can be placed): Home, Self Care Charges/Coding Visit Charges Inpatient E&M: 76020 Disch Hosp
--- NOTE | 2021-09-29 14:00 | CASEMGMT ---
RADHA BOSWELL Assessment: RN ELBERT to room to meet w/patient for initial transition planning/care coordination assessment. RADHA BOSWELL introduced self and role at [facility]. Patient lying in bed, alert and oriented with O2 on in no distress. Patient willing to participate in assessment and is able to answer all questions appropriately. Care providers, pharmacy, and demographics verified. PCP: Dr Garcia Specialists: Dr Bentley, local tanker truck driver Palliative: Discussed Palliative care w/pt and she is agreeable to referral. Order received from Dr Traylor and e-mail sent to [facility] Palliative to notify if referral. Preferred Pharmacy: [facility] Insurance: [employer] [facility] Prescription Benefit: yes Living Will/HPOA: Has both LW and HPOA, who is her significant other Dylan Winter LNOK: significant other/KENNAADylan. granddaughter loretta Bauer Living Arrangements: Patient lives with significant other, Dylan, and 20-yr-old grandson in a 2 story home with bed and bath on first floor. Patient states she independent at home. Transportation: Pt states she is able to drive self and denies concerns with transportation. Dylan also drives. DME/HHC: Patient states she has a nebulizer, pulse ox and home oxygen through [employer]. She has a concentrator and states she only has one portable tank left. She has misplaced the green wrench to turn the tank on, so she is not able to use the one she currently has. Pt has a walker and rollator available, but usually only uses for community distances. RADHA BOSWELL placed call to [facility]. Current O2 orders are 2 l/m @ rest and 3 l/m w/exertion. Home amb testing has been completed. Pt does not require more than 2 l/m @ rest, but does qualify for 4 l/m w/exertion now. New script faxed to [facility] and pt given portable O2 tank from [facility] supply. Call to Jerry @ [facility] and he was notified of same. He was also made aware pt only has one O2 tank left @ home. He states they will contact pt to make arrangements to have further tanks delivered. SNF/DME: No hx of SNF. Has had [facility] HHC in the past. Pt denies need for HHC at this time. Patient states she still smokes about 1/2 PPD and states she has really cut down how much she is drinking, stating she drinks about a 6-pack/week. Pt is interested in both smoking cessation info and ETOH cessation info as well. Pt states she also would like to get Nicotine patches. CPS, SW, and [facility]/addiction recovery notified for resources and Dr Traylor notified of request for Nicotine patches. PLAN: Home Jesse HERRERA RN CM
[2021-09-29 14:57] VITALS: O2SAT 88; O2SAT 89
[2021-09-29 14:58] VITALS: BP 113/76; PULSE 114; RESP 20; TEMP 36.8; O2SAT 89
[2021-09-29] MEDS: predniSONE 20 MG Tablet 40 MG PO (15:00)
[2021-09-29] MEDS: cycloBENZAPRine HCl 10 MG Tablet PO (15:03)
[2021-09-29] MEDS: guaiFENesin/Codeine 5 ML UDC PO (15:03)
== END 2021-09-29 16:17 | disposition home or self-care (01) | DRG 191 ==
LOC: ED 18:35 → MS3 18:53
PROVIDERS: Emergency Provider Emergency Medicine; PCP Internal Medicine
DX: J44.1 Chronic obstructive pulmonary disease with (acute) exacerbation (principal); E44.0 Moderate protein-calorie malnutrition; F10.20 Alcohol dependence, uncomplicated; J96.11 Chronic respiratory failure with hypoxia; E22.2 Syndrome of inappropriate secretion of antidiuretic hormone; E87.1 Hypo-osmolality and hyponatremia; Z68.1 Body mass index [BMI] 19.9 or less, adult; I10 Essential (primary) hypertension; F17.210 Nicotine dependence, cigarettes, uncomplicated; Z20.822 Contact with and (suspected) exposure to COVID-19; Z79.51 Long term (current) use of inhaled steroids; Z79.899 Other long term (current) drug therapy; R00.0 Tachycardia, unspecified
CPT/HCPCS: 36415; 71045; 80048; 81001; 82533; 83930; 83935; 84300; 84443; 84484; 85025; 85379; 87811; 93005; 94060; 94640; 94726; 94729; 96361; 96372; 96374; 96376; 97802; 99221; 99285; 99406; J7050; A4216; G0378

== ENCOUNTER → 2021-11-04 | Outpatient (CLI) | payer MEDICARE, MEDICAID, SELFPAY ==
[2021-11-04 08:16] LABS: Platelet Count 392 K/mm3 (150-450)
[2021-11-04 08:37] LABS: International Normalized Ratio 1.1; Prothrombin Time (Protime)PT. 13.7 SECONDS (11.7-14.9)
[2021-11-04 08:38] LABS: Partial Thromboplast Time 27.4 Seconds (24.1-36.2)
--- NOTE | 2021-11-07 14:45 | NURSING ---
Dr. Bentley will not update H&P until he sees patient. RADHA Herrera called pt to inform her that she will need to reschedule her appt with Dr. Bentley in order to get this biopsy rescheduled since she missed her appt today with him. Pt expresses understanding and will get her appt with Dr. Bentley rescheduled.
--- NOTE | 2021-11-10 14:16 | CASEMGMT ---
RN Care Coordination: This RN CM was notified of pt having missed and then had not been NPO prior to a scheduled lung biopsy. Spoke with Hafsa at Dr. Bentley's office who confirmed that pt's H&P has and pt now requires a new H&P prior to having the next lung biopsy scheduled. Contacted Dr. Ford' office (pt's PCP) who states pt has not been seen since 08/19/21. Pt with noted hx of general anxiety and reactive depression but no other mental health or cognitive history that would contribute to pt's ability to understand or follow instructions. Phone call placed to pt who states she is still interested in having the biopsy performed. Pt states that she was aware of the appointment with Dr. Bentley earlier this week but states that circumstances including someone not returning her car and having to babysit her great grandson unexpectedly prevented her from attending. Pt states her 20yo grandson lives with her but states he does not drive, does not work, and is not helpful in facilitating her attendance. Pt states she remains in a relationship with her significant other Dylan but that he is a otr owner operator truck driver and is in and out so not available to assist her in attending appointments. Pt states her granddaughter planned to attend the lung biopsy with her and that her schedule is flexible so the biopsy does not need to be scheduled around any of her commitments. Pt states she does not have an appointment with Dr. Ford until January. Discussed being on the cancellation list to see Dr. Bentley and pt states she is generally available to attend a last minute notification. Pt provided permission for this RN CM to continue to assist in coordinating her attendance at an appointment and subsequent lung biopsy appointments. Message left with Hafsa at Dr. Bentley's office to inform her of this conversation and availability to further coordinate pt's attendance. Will continue to follow and coordinate pt's attendance as appointments become available. Sharath Shepherd RN CM
== END | disposition home or self-care (01) ==
LOC: LAB 11-11 08:01
PROVIDERS: PCP Internal Medicine; Referring Provider Nurse Practitioner Acute Care; Visit Provider Nurse Practitioner Acute Care
DX: R06.02 Shortness of breath (principal); R19.8 Other specified symptoms and signs involving the digestive system and abdomen; Z53.9 Procedure and treatment not carried out, unspecified reason
CPT/HCPCS: 36415; 85049; 85610; 85730; J7050; A4216

== ENCOUNTER → 2021-12-01 | Outpatient (CLI) | payer MEDICARE, MEDICAID, SELFPAY ==
[2021-12-01 12:14] VITALS: PULSE 103; PULSE 113; PULSE 86; PULSE 90; PULSE 93; PULSE 94; PULSE 95; PULSE 97; O2SAT 83; O2SAT 92; O2SAT 93; O2SAT 95; O2SAT 96
--- NOTE | 2021-12-01 12:23 | CPS ---
She came in with no oxygen on so started test without it but at 3 minutes had to put on at 4 lpm that she wears at home. Took approximately 3 1/2 minuts to return to baseline finished the test on the 4 lpm. At end of test did remove the oxygen off and O2 sat stayed above 94% without any exercising.
--- NOTE | 2021-12-02 08:14 | WT_ITS ---
PSN 6 Minute Walk Test 6 Minute Walk Test 6 Minute Walk Test: 6 Minute Walk Test PSN:6-Minute Walk Test Start: 12/01/21 12:14 Freq: Status: Active Protocol: [id number] Document 12/01/21 12:14 FR (Rec: 12/01/21 12:27 FR [id number]) 6 Minute Walk Test Date Performed 12/01/21 Time Performed 11:30 Height 5 ft 6 in Weight: 110 lb Weight in Pounds 110.[address]: Dr. Bentley FIO2 (% Oxygen) 21 Assistive device used: None Pre-test Oxygen Delivery Method Room Air Pulse Ox (%) 95 Pulse Rate (60-100 beats/min) 93 Dyspnea Sharon Scale (0-10) 8 Exertion Sharon Scale (6-20) 30 1st minute Oxygen Delivery Method Room Air Pulse Ox (%) 92 Pulse Rate (60-100 beats/min) 103 H 2nd minute Oxygen Delivery Method Room Air Pulse Ox (%) 93 Pulse Rate (60-100 beats/min) 94 Reported Symptoms Increased Work of Breathing 3rd minute Oxygen Flow Rate (L/min) (L/min) 4 Oxygen Delivery Method Nasal Cannula Pulse Ox (%) 83 Pulse Rate (60-100 beats/min) 113 H Number of Rests Taken 1 Reported Symptoms Increased Work of Breathing 4th minute Oxygen Flow Rate (L/min) (L/min) 4 Oxygen Delivery Method Nasal Cannula Pulse Ox (%) 96 Pulse Rate (60-100 beats/min) 86 Reported Symptoms Increased Work of Breathing 5th minute Oxygen Flow Rate (L/min) (L/min) 4 Oxygen Delivery Method Nasal Cannula Pulse Ox (%) 95 Pulse Rate (60-100 beats/min) 97 Reported Symptoms Increased Work of Breathing 6th minute Oxygen Flow Rate (L/min) (L/min) 4 Oxygen Delivery Method Nasal Cannula Pulse Ox (%) 96 Pulse Rate (60-100 beats/min) 95 Dyspnea Sharon Scale (0-10) 7 Exertion Sharon Scale (6-20) 13 Reported Symptoms Increased Work of Breathing Post-test Oxygen Flow Rate (L/min) (L/min) 4 Oxygen Delivery Method Nasal Cannula Pulse Ox (%) 95 Pulse Rate (60-100 beats/min) 90 Full Laps Walked 17 Partial Lap, Number of Tiles Walked 46 Total Distance Walked (ft) 1049 09/08/22 12:23 Cardiopulmonary Services by Silvina Honeycutt She came in with no oxygen on so started test without it but at 3 minutes had to put on at 4 lpm that she wears at home. Took approximately 3 1/2 minuts to return to baseline finished the test on the 4 lpm. At end of test did remove the oxygen off and O2 sat stayed above 94% without any exercising. Initialized on 12/01/21 12:23 - END OF NOTE Interpretation Interpretation: The patient ambulated 1046 feet over the course of 6 minutes beginning on room air without assistive devices. Pretesting oxygen saturation was noted to be 95% on room air. With ambulation, the kristin oxygen saturation was 83%. 4 L/min of supplemental oxygen was applied and the patient was able to complete the remainder of the test while maintaining appropriate oxygen saturations. Recommendations Recommendations: 4 L/min of supplemental oxygen is required with exertion.
== END | disposition home or self-care (01) ==
LOC: PSN 11:25
PROVIDERS: PCP Internal Medicine; Referring Provider Internal Medicine Critical Care Medicine; Visit Provider Internal Medicine Critical Care Medicine
DX: J96.11 Chronic respiratory failure with hypoxia (principal)
CPT/HCPCS: 94618

== ENCOUNTER → 2021-12-05 | Outpatient (CLI) | payer MEDICARE, MEDICAID, SELFPAY ==
[2021-12-05 09:56] LABS: Platelet Count 455 K/mm3 (150-450)
[2021-12-05 10:03] VITALS: BP 208/119; PULSE 76; RESP 17; O2SAT 96
[2021-12-05 10:04] LABS: Partial Thromboplast Time 25.5 Seconds (24.1-36.2)
[2021-12-05 10:13] VITALS: BP 208/119; BP 208/122; PULSE 78; RESP 19; TEMP 36.2; O2SAT 96; BMI 17.4
[2021-12-05 10:18] VITALS: BP 208/119; BP 226/134; PULSE 77; RESP 19; O2SAT 97
[2021-12-05 10:23] VITALS: BP 208/119; BP 210/142; PULSE 76; RESP 20; O2SAT 96
[2021-12-05 10:30] VITALS: BP 202/113; BP 208/119; PULSE 82; RESP 20; O2SAT 95
[2021-12-05 10:33] VITALS: BP 208/119; BP 217/118; PULSE 77; RESP 23; O2SAT 96
--- NOTE | 2021-12-05 11:13 | NURSING ---
Throughout initial assessment, pt's b/p found to be significantly elevated (see vital signs in chart). Pt denies blurred vision, headache, ringing in ears. RADHA Herrera looked up pt's old reports from Mihaela Austin [employer] visits in which pt's b/p was 160s/100s. Findings discussed with Dr. Sanchez who does not feel comfortable doing procedure with such an elevated b/p. Pt admits she has not been taking her b/p medication regularly and that she has had trouble affording all of her medications to keep up with them. RADHA Herrera asks pt if she would like to be seen in ED to decrease her b/p, pt denies. RADHA Todd calls Dr. Garcia (pt's PCP) office and Mihaela Austin [employer] office to inform them of elevated b/p and lung biopsy being cancelled for today (see physician notification documentation). RADHA Barton CM and RADHA Brock CM also informed to see if there are any resources that can help patient in all areas of health. RADHA Herrera wrote pt a note and told pt's friend Ashlee that pt needs to track her b/p regularly and take her medications appropriately to decrease b/p.
== END | disposition home or self-care (01) ==
LOC: CT 09:34
PROVIDERS: PCP Internal Medicine; Referring Provider Nurse Practitioner Acute Care; Visit Provider Nurse Practitioner Acute Care
DX: R06.02 Shortness of breath (principal)
CPT/HCPCS: 36415; 85049; 85610; 85730; J7050

== ENCOUNTER 2022-01-09 13:33 | Emergency (ER) | payer MEDICARE, MEDICAID, SELFPAY ==
[2022-01-09 13:34] VITALS: BP 98/68; TEMP 36.3; O2SAT 92; BMI 18.2
--- NOTE | 2022-01-09 14:28 | EKG12_ITS ---
Test Reason : DIZZINESS Blood Pressure : / mmHG Vent. Rate : 073 BPM Atrial Rate : 073 BPM P-R Int : 154 ms QRS Dur : 088 ms QT Int : 412 ms P-R-T Axes : 069 071 063 degrees QTc Int : 453 ms Sinus rhythm with occasional Premature ventricular complexes Otherwise normal ECG Confirmed by KRYSTAL FOOTE, DIONICIO ([id number]), field map editor KAI RODRIGUEZ ([id number]) on 01/11/2022 6:40:18 AM Referred By: Confirmed By:DIONICIO RICE MD
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
[2022-01-09 14:39] VITALS: BP 107/70; PULSE 74; RESP 13; O2SAT 95
[2022-01-09 14:54] LABS: Absolute Lymphocyte Count 1.05 X10^3/uL (0.83-4.51); Absolute Neutrophil Count 5.7 X10^3/uL (2.0-7.7); Basophil# 0.01 X10^3/uL; Basophil% 0.1 % (0-1); Hematocrit 42.8 % (37-47); Hemoglobin 14.1 g/dL (12.0-15.0); Lymphocyte # 1.05 X10^3/ul (0.83-4.51); Lymphocyte % 13.6 % (19-41); Mean Corp Hgb Conc 32.9 g/dL (32-36); Mean Corpuscular Hgb 30.1 pg (27.0-32.0); Mean Corpuscular Volume 91.5 fL (81-99); Mean Platelet Vol. 10.2 fl (6.2-12.0); Monocyte# 0.94 X10^3/uL; Monocyte% 12.1 % (0-10); NRBC Flagged by Analyzer 0 % (0-5); Neutrophil # 5.71 X10^3/uL (2.7-7.7); Neutrophil % 73.8 % (47-70); Platelet Count 318 K/mm3 (150-450); RBC Distribution Width CV 13.1 % (11.6-14.6); RBC Distribution Width SD 44.4 fl (35.1-43.9); Red Blood Count 4.68 M/mm3 (4.2-5.4); White Blood Count 7.7 K/mm3 (4.4-11.0)
[2022-01-09 15:04] VITALS: BP 109/80; BP 111/83; BP 112/72; PULSE 74; PULSE 76; PULSE 78
[2022-01-09 15:05] LABS: Anion Gap 8 (5-15); BUN 30 mg/dL (7-18); BUN/Creat Ratio 25.4 RATIO (10-20); Chloride 99 mmol/L (98-107); Creatinine, Serum 1.18 mg/dL (0.55-1.02); EST Glomerular Filtration Rate 48 mL/min (>60); Est Glom Filt Rate - Afr Amer 59 mL/min (>60); Estimated Creatinine Clearance 36.95 ml/min; Glucose 117 mg/dL (74-106); Potassium 3.6 mmol/L (3.5-5.1); Sodium Level 135 mmol/L (136-145); Troponin-I HS 12 pg/mL (3.0-54.0)
[2022-01-09 15:28] LABS: Alcohol, Blood (Medical)-Serum < 3.0 mg/dL
--- NOTE | 2022-01-09 15:34 | ED.RN ---
WAITING ON LAB TO COME UP AND REDRAW PT. CALLED ABOUT A HALF HOUR AGO.
[2022-01-09 15:53] VITALS: BP 119/80; PULSE 75; RESP 20; O2SAT 95
[2022-01-09 16:51] LABS: Carboxyhemoglobin Frac (CO) 3.7 % (0.0-1.5)
[2022-01-09] MEDS: 0.9% Normal Saline 1,000 ML 999 ML IV (17:02)
[2022-01-09 17:17] VITALS: BP 136/75; PULSE 78; RESP 20; O2SAT 96
== END 2022-01-09 18:09 | disposition home or self-care (01) ==
PROVIDERS: Emergency Provider Emergency Medicine; PCP Internal Medicine; Visit Provider Emergency Medicine
DX: E86.0 Dehydration (principal); N17.9 Acute kidney failure, unspecified; J44.9 Chronic obstructive pulmonary disease, unspecified; J96.11 Chronic respiratory failure with hypoxia; R55 Syncope and collapse; E87.1 Hypo-osmolality and hyponatremia; I10 Essential (primary) hypertension; F17.210 Nicotine dependence, cigarettes, uncomplicated; F32.A Depression, unspecified; Z79.899 Other long term (current) drug therapy
CPT/HCPCS: 80048; 82077; 82375; 84484; 85025; 93005; 96360; 99285; A4216

== ENCOUNTER 2022-01-17 19:36 | Observation (INO) | payer MEDICARE, SELFPAY ==
[2022-01-17 19:37] VITALS: BP 94/67; PULSE 91; RESP 15; TEMP 36.5; O2SAT 85; BMI 14.5
--- OUTSIDE RECORDS SUMMARY | 2022-01-17 19:39 | XMS RPT_ITS ---
:1955 Author Organization [place] Care Team Providers Name Role Phone SELWYN GARCIA Primary Care Unavailable SELWYN GARCIA Referring Unavailable SELWYN GARCIA Attending Unavailable SELWYN GARCIA Primary Care Unavailable LACY MANZANARES Referring Unavailable LACY MANZANARES Attending Unavailable SELWYN GARCIA Primary Care Unavailable PROBLEMS PROBLEMS DATE TYPE CONDITION / CODE ATTENDING STATUS SOURCE 08/29/2018 Active Tobacco use disorder / NA [facility] F17.200(ICD-10) [place] 08/29/2018 Active Chronic bronchitis, NA Active [facility] unspecified chronic [facility] bronchitis type (HCC) / J42(ICD-10) 10/20/2017 Active Gastroesophageal reflux NA Active [facility] disease without [place] esophagitis / K21.9(ICD-10) 06/13/2017 Active Reactive depression / NA Active [facility] F32.9(ICD-10) [place] 02/06/2008 Active Generalized anxiety NA Active [facility] disorder / F41.1(ICD-10) [place] 11/04/2019 Active COPD, severe (HCC) / LACY MANZANARES Active [facility] J44.9(ICD-10) [place] 08/29/2018 Active Hypoxia / R09.02(ICD-10) BENI LACY Active [facility] 08/29/2018 Active Closed fracture of LACY MANZANARES Active [facility] multiple ribs of right Cl [place] side with routine healing / S22.41XD(ICD-10) 08/29/2018 Active Compression fracture of MANZANARESLACY Active [facility] T5 vertebra, initial Clev and encounter (HCC) / S22.050A(ICD-10) 02/27/2017 Active Essential hypertension / BENI LACY Active [facility] I10(ICD-10) [place] 08/19/2021 Active Encounter for screening MANZANARES, LACY Active [facility] for lung cancer / [place] Z12.2(ICD-10) 08/19/2021 Active Need for shingles LACY MANZANARES [facility] vaccine / Z23(ICD-10) [facility] 08/19/2021 Active Encounter for LACY MANZANARES Active [facility] immunization / [place] Z23(ICD-10) 08/19/2021 Active PAD (peripheral artery LACY MANZANARES Active [facility] disease) [facility] 08/19/2021 Active Need for financial LACY MANZANARES Active [facility] support / Z59.9(ICD-10) [facility] PROCEDURES PROCEDURES No Procedure Records FoundRESULTS RESULTS PROGRESS Observed: 01/02/2022 9:19 AM Status: COMPLETED S ource: [facility] GER [place] HNO ID: [id number] Author: Marion Davis RN Service: ? Author Type: Registered Nurse Type: Progress Notes Filed: 01/02/2022 1:08 PM Note Text: [facility] CDM Enrollment Provider Action/FYI: h/o COPD I spoke with patient and she is in Pall iative Care/ Hospice She is not sure which one but believes she is in Hospice ([facility] [place]) Patient referred by: [facility] Marisol Contact made with patient: Yes - Patien t identified by name and . Discussed care with patient Bernardo this is Marion Davis RN and I am calling from Selwyn Garcia MD office at the [facility]. I am a RN Division Head with our [facility] Chronic Disease Management prog charles. Selwyn Garcia MD wanted me to reach out to help you manage your he alth at home. Our goal is to keep you well at home. We want to help you m anage your chronic disease by providing a safety net of resources swati und you, getting you the care you need in a timely manner, and hopefully keep you out of the ED and hospital. I will send you a few questio ns once a week through your [employer] account. It will automatically show up for you to complete. There are simple questions that will help us iden tify if you have any concerns or symptoms and I will call you to help ge t what you need. We will be able to connect you, review your symptoms, do a n on demand visit, or communicate with Selwyn Garcia MD if needed. I am going to sign you up for the program now. Enrollment Questions: Let's get you enrolled in the program. No, reason: Other: Hospice Closing: Patient does not meet criteria. PCC to reassess patient in a month. JUDAH Observed: 01/02/2022 12:00 Status: COMPLETED Rose rce: [facility] Patient Outreach ([facility]) DALIA MENDES ([id number]) 1955 F Date Time Provider Department 01/02/22 MARION DAVIS During your visit today, we recorded t he following information about you: Marion Davis RN 01/02/2022 1:08 PM S igned [facility] Enrollment Provider Action/FYI: h/o COPD I spoke with patient and she is in Pall iative Care/ Hospice She is not sure which one but believes she is in Hospice ([facility] [place]) Patient referred by: [facility] Marisol Contact made with patient: Yes - Patien t identified by name and . Discussed care with patient Bernardo this is Marion Davis, RADHA and I am calling from Selwyn Garcia MD office at the [facility]. I am a RN Division Head with our [facility] Chronic Disease Management program. Nataly Garcia MD wanted me to reach out to help you manage your health at home. Our goal is to keep you well at home. We want to help you manage your chronic disease by providing a safety net of resources around you, getting you the care you need in a timely manner, and hopefully keep you out of the ED and ho spital. I will send you a few questions once a week through your [employer] accoun t. It will automatically show up for you to complete. There are simple questions that will help us identify if you have any concerns or symptoms and I will ca ll you to help get what you need. We will be able to connect you, review your sym ptoms, do an on demand visit, or communicate with Selwyn Garcia MD if needed. I am going to sign you up for the program now. Enrollment Questions: Let's get you enrolled in the program. No, reason: Other: Hospice Closing: Patient does not meet criteria. PCC to reassess patient in a month. Allergies As of Date: 01/02/2022 Noted Allergy Reaction WELLBUTRIN SR (BUPROPION) 05/08/2008 1 - Mental Status Change Comments: made me hallucinate Date Reviewed: 12/13/2021 Reviewed by: Kaylyn amaya Assessed Reason for Visit: Community Monitoring Outreach [Other] Cmt: [facility] Enrollment Prescriptions as of 01/02/2022 - atorvastatin (LIPITOR) 10 mg tablet Take 1 tablet by mouth once daily. - citalopram (CELEXA) 20 mg tablet Take 1 tablet by mouth once daily. - fgvnfrrmhxf-bsrmfhnwj-wyoejdmz (TRELE GY ELLIPTA) 100-62.5-25 mcg inhalation powder Inhale 1 Puff as instructed once meaghan y. - gabapentin (NEURONTIN) 300 mg capsule Take 1 capsule by mouth twice daily fo r 90 days. - losartan (COZAAR) 50 mg tablet Take 1 tablet by mouth twice daily. - omeprazole (PRILOSEC) 40 mg capsule Take 1 capsule by mouth once daily. - promethazine (PHENERGAN) 6.25 mg/5 mL syrup Take 5-10 mL by mouth four times daily as needed for nausea/vomiting (and cough). - HYDROcodone-acetaminophen (NORCO) 5-3 25 mg per tablet Take 1 tablet by mouth every 12 hours as needed for pain (Severe pain) for up to 7 days. - amLODIPine (NORVASC) 2.5 mg tablet Take 1 tablet by mouth once daily. - ibuprofen (MOTRIN) 800 mg tablet Take 1 tablet by mouth every 8 hours a s needed for pain (back). Take with food - aspirin 81 mg chewable tablet Take 1 tablet by mouth once daily. - Food Supplement, Lactose-Free (ENSURE ACTIVE HIGH PROTEIN) liqd Take 237 mL by mouth once daily. - albuterol HFA (VENTOLIN HFA) 90 mcg/a ctuation inhaler Inhale 2 Puffs as instructed every 4 h ours as needed. -active - Ciclopirox (PENLAC) 8 % solution Apply to affected area once daily. TO AFFECTED AREA. - ketoconazole (NIZORAL) 2 % cream Apply 1 application to affected area o nce daily. To rash on legs and feet for 2 weeks at least and continue for 1 we ek after rash resolves. - nabumetone (RELAFEN) 500 mg tablet Take 1 tablet by mouth twice daily. - diclofenac sodium (VOLTAREN) 1 % topi philip gel Apply 2 grams to affected area four ti mes daily. - guaiFENesin (MUCINEX) 600 mg 12 hr ta blet Take 2 tablets by mouth twice daily as needed for Cold/Allergy Symptoms. - COMPOUNDED PRESCRIPTION Overnight pulse oximetry-- J42 Chronic bronchitis, R09.02hypoxemia - cholecalciferol (VITAMIN D3) 1,000 un it tab tablet Take 1 tablet by mouth once daily. - polyethylene glycol 3350 (MIRALAX, GL YCOLAX) 17 gram packet Take 1 Packet by mouth once daily. - thiamine (VITAMIN B1) 100 mg tablet Take 1 tablet by mouth three times irma ly. - albuterol (PROVENTIL) 2.5 mg /3 mL ( 0.083 %) nebulizer solution Use 3 mL via nebulizer every 4 hours a s needed for Wheezing/Shortness of Breath. Use over 5-15minutes. - COMPOUNDED PRESCRIPTION Nebulizer for home use. Dx: chronic br onchitis Meds Comments as of 09/02/2018: 09/02/18 The medications are managed by this patient by: PATIENT Janell Delmi Menjivar Pharm-T Problem List As Of Date 01/02/2022 Note d Resolved COLLES' FRACTURE-CLOSED [S52.539A] 09/28/2005 RADIAL STYLOID TENOSYNOV [M65.4] 06/2809/28/2005 FX LATERAL MALLEOLUS-CLOSE [S82.63XA] 11/08/2005 09/18/2007 Chronic bronchitis (HCC) [J42] 007 INSOMNIA, intermittent [G47.00] 2006 Tobacco use disorder [F17.200] 007 Acute sinusitis, unspecified [J01.90] 02/06/2008 06/13/2017 Reactive depression [F32.9] 8 GENERALIZED ANXIETY DIS [F41.1] 2007 GLAUCOMA NOS [H40.9] 02/06/2008 ALLERGIC RHINITIS NOS [J30.9] 009 FAMILY HX GI MALIGNANCY [Z80.0] 2008 DYSPHAGIA NEC [R13.19] 08/25/2008 UNSP ABNORMAL MAMMOGRAM [R92.8] 08/29 DUODENITIS W/O HEMORRHAGE [K29.80] ACUTE GASTRITIS W/O HEMORRHAGE [K29.0 0] 09/14/2008 Unspecified Disorder of Skin and Subcu taneous T*12/01/2008 Helicobacter Pylori 12/08/2008 Benign Neoplasm of Skin of Trunk, exc ept Scrotu*12/09/2008 Fracture of right distal radius [S52.5 01A] 07/24/2012 11/24/2014 Ankle fracture [S82.899A] 11/24/2014 Essential hypertension [I10] 02/28/20 17 Gastroesophageal reflux disease withou t esophag*10/20/2017 Compression fracture of T5 vertebra (H CC) [S22.*08/24/2018 Trauma [T14.90XA] 08/27/2018 Fall from ladder [W11.XXXA] 9 Closed fracture of multiple ribs of ri ght side *08/27/2018 Wheezing [R06.2] 08/27/2018 Hypoxia [R09.02] 08/27/2018 Back pain [M54.9] 09/2018 Incidental lung nodule, greater than or equal t*11/04/2019 COPD, severe (HCC) [J44.9] 11/04/2019 Tension pneumothorax [J93.0] 0 Chronic respiratory failure with hypo rupinder (HCC) *12/25/2019 Community acquired pneumonia of left l ower lobe*12/25/2019 Cervical spondylosis without myelopath y [M47.81*03/02/2020 05/27/2020 Lumbosacral spondylosis without myelop athy [M47*03/02/2020 05/27/2020 Encounter Status:Closed by JOSE RAFAEL DAVIS on 01/02/22 CNPN Observed: 12/15/2021 12:00 AM Status: COMPLETED Source: [facility] REPOSITOR Y Telephone (INTMWS) DALIA MENDES ([id number]) 1955 F Date Time Provider Department 12/15/21 SELWYN GARCIA INTMWS During your visit today, we recorded t he following information about you: Cristine Escalante RN 12/15/2021 2:15 PM [facility]- Dr. Kirill Bentley off ice- reports they may schedule another appt for lung biopsy with patient. Rep orts the 1st time they scheduled with patient, she didn't follow protocol and they had to reschedule, the 2nd time they cancelled due to patient's elevate d BP. Will need doctor to sign notes from last ov on 12-13-21 and fax to theselect at [place] office at . Biopsy would have to occur within 30 days of H AND P visit. Once they review the notes will call patient to schedule. Lacy Manzanares APRN.MANAGER OF CORPORATE 12/20/2021 7:31 A M Signed Has this been done? If not get paperwor k so I can review and send Kaylyn Wallace Ma 12/26/2021 11:00 AM Signed The are requesting office note dated stating she is cleared for biopsy. Office note needs completed and signed, nothing noted about biospy at this time Selwyn Gracia MD 01/05/2022 2:38 PM Signed Print completed note to fax as requesttarsha duenas. I did not do a preop consult since the request for my note came after she was seen. I did state she may proceed with plann ed procedure. Kaylyn Wallace Ma 01/06/2022 1:28 PM Signed Faxed Allergies As of Date: 12/15/2021 Noted Allergy Reaction WELLBUTRIN SR (BUPROPION) 05/08/2008 1 - Mental Status Change Comments: made me hallucinate Date Reviewed: 12/13/2021 Reviewed by: Kaylyn Wallace Ma - Linda ly Assessed Reason for Visit: Biopsy of lung [Other] Prescriptions as of 01/06/2022 - atorvastatin (LIPITOR) 10 mg tablet Take 1 tablet by mouth once daily. - citalopram (CELEXA) 20 mg tablet Take 1 tablet by mouth once daily. - jnllkuavfbh-jebpbgrcl-ivchcgzo (TRELE GY ELLIPTA) 100-62.5-25 mcg inhalation powder Inhale 1 Puff as instructed once daily . - gabapentin (NEURONTIN) 300 mg capsul e Take 1 capsule by mouth twice daily fo r 90 days. - losartan (COZAAR) 50 mg tablet Take 1 tablet by mouth twice daily. - omeprazole (PRILOSEC) 40 mg capsule Take 1 capsule by mouth once daily. - promethazine (PHENERGAN) 6.25 mg/5 mL syrup Take 5-10 mL by mouth four times meaghan y as needed for nausea/vomiting (and cough). - HYDROcodone-acetaminophen (NORCO) 5-3 25 mg per tablet Take 1 tablet by mouth every 12 hours as needed for pain (Severe pain) for up to 7 days. - amLODIPine (NORVASC) 2.5 mg tablet Take 1 tablet by mouth once daily. - ibuprofen (MOTRIN) 800 mg tablet Take 1 tablet by mouth every 8 hours a s needed for pain (back). Take with food - aspirin 81 mg chewable tablet Take 1 tablet by mouth once daily. - Food Supplement, Lactose-Free (ENSURE ACTIVE HIGH PROTEIN) liqd Take 237 mL by mouth once daily. - albuterol HFA (VENTOLIN HFA) 90 mcg/a ctuation inhaler Inhale 2 Puffs as instructed every 4 h ours as needed. -active - Ciclopirox (PENLAC) 8 % solution Apply to affected area once daily. TO AFFECTED AREA. - ketoconazole (NIZORAL) 2 % cream Apply 1 application to affected area o nce daily. To rash on legs and feet for 2 weeks at least and continue for 1 we ek after rash resolves. - nabumetone (RELAFEN) 500 mg tablet Take 1 tablet by mouth twice daily. - diclofenac sodium (VOLTAREN) 1 % topi philip gel Apply 2 grams to affected area four ti mes daily. - guaiFENesin (MUCINEX) 600 mg 12 hr ta blet Take 2 tablets by mouth twice daily a s needed for Cold/Allergy Symptoms. - COMPOUNDED PRESCRIPTION Overnight pulse oximetry-- J42 Chronic bronchitis, R09.02hypoxemia - cholecalciferol (VITAMIN D3) 1,000 un it tab tablet Take 1 tablet by mouth once daily. - polyethylene glycol 3350 (MIRALAX, GL YCOLAX) 17 gram packet Take 1 Packet by mouth once daily. - thiamine (VITAMIN B1) 100 mg tablet Take 1 tablet by mouth three times irma ly. - albuterol (PROVENTIL) 2.5 mg /3 mL (0 .083 %) nebulizer solution Use 3 mL via nebulizer every 4 hours a s needed for Wheezing/Shortness of Breath. Use over 5-15minutes. - COMPOUNDED PRESCRIPTION Nebulizer for home use. Dx: chronic br onchitis Meds Comments as of 09/02/2018: 09/02/18 The medications are managed b y this patient by: PATIENT Janell Delmi Menjivar Pharm-T Problem List As Of Date 12/15/2021 Note d Resolved COLLES' FRACTURE-CLOSED [S52.539A] 09/28/2005 RADIAL STYLOID TENOSYNOV [M65.4] 06/2809/28/2005 FX LATERAL MALLEOLUS-CLOSE [S82.63XA] 11/08/2005 09/18/2007 Chronic bronchitis (HCC) [J42] 007 INSOMNIA, intermittent [G47.00] 2006 Tobacco use disorder [F17.200] 2006 Acute sinusitis, unspecified [J01.90] 02/06/2008 06/13/2017 Reactive depression [F32.9] 02/06/2008 GENERALIZED ANXIETY DIS [F41.1] 2007 GLAUCOMA NOS [H40.9] 02/06/2008 ALLERGIC RHINITIS NOS [J30.9] 05/08/19 09 FAMILY HX GI MALIGNANCY [Z80.0] 2008 DYSPHAGIA NEC [R13.19] 08/25/2008 UNSP ABNORMAL MAMMOGRAM [R92.8] 2008 DUODENITIS W/O HEMORRHAGE [K29.80] ACUTE GASTRITIS W/O HEMORRHAGE [K29.00 ] 09/14/2008 Unspecified Disorder of Skin and Subcu taneous T*12/01/2008 Helicobacter Pylori 12/08/2008 Benign Neoplasm of Skin of Trunk, exce pt Scrotu*12/09/2008 Fracture of right distal radius [S52.5 01A] 07/24/2012 11/24/2014 Ankle fracture [S82.899A] 11/24/2014 Essential hypertension [I10] 7 Gastroesophageal reflux disease withou t esophag*10/20/2017 Compression fracture of T5 vertebra (H CC) [S22.*08/24/2018 Trauma [T14.90XA] 08/27/2018 Fall from ladder [W11.XXXA] 08/27/2018 Closed fracture of multiple ribs of ri ght side *08/27/2018 Wheezing [R06.2] 08/27/2018 Hypoxia [R09.02] 08/27/2018 Back pain [M54.9] 09/2018 Incidental lung nodule, greater than o r equal t*11/04/2019 COPD, severe (HCC) [J44.9] 11/04/2019 Tension pneumothorax [J93.0] 0 Chronic respiratory failure with hypox ia (HCC) *12/25/2019 Community acquired pneumonia of left l ower lobe*12/25/2019 Cervical spondylosis without myelopath y [M47.81*03/02/2020 05/27/2020 Lumbosacral spondylosis without myelop athy [M47*03/02/2020 05/27/2020 Encounter Status:Closed by Delmi WALLACE MA on 01/06/22 PROGRESS Observed: 12/14/2021 2:36 PM Status: COMPLETED S ource: [facility] Mamta EDDIE HNO ID: [id number] Author: Joaquim Rodarte RN Service: ? Author Type: Registered Nurse Type: Progress Notes Filed: 12/14/2021 2:43 PM Note Text: [facility] CDM Enrollment Provider Action/FYI: 2nd Call to Pt, unable to leave a messa ge related to Insight / Chronic Disease Management program, will provid e [facility] info once reached. Patient referred by: [facility] Marisol Contact made with patient: No - 2nd att empt to reach patient, left another message: Hi my name is Aster duenas, RN and I am calling from the [facility] on behalf of your PCP, Selwyn Garcia MD. We are excited to share with you a new progra m to help you manage your health. . I hope you can take the time to speak w ith me. (Keep encounter open for additional two business days in case pa tient calls back. Close encounter if no response by end of ) Closing: Could not reach the patient after two a ttempted outreaches. Division Head to retry patient in one wetarsha patterson END OUTREACH Aster March RN December 14, 2021 2:36 PM LUIZTOSHARAD Observed: 12/14/2021 12:00 Status: COMPLETED Rose rce: [facility] Patient Outreach ([facility]) DALIA MENDES ([id number]) 1955 F Date Time Provider Department 12/14/21 JOAQUIM RODARTE [facility] During your visit today, we recorded t he following information about you: Aster March RN 12/14/2021 2:43 PM Signed [facility] Enrollment Provider Action/FYI: 2nd Call to Pt, unable to leave a messa ge related to Insight / Chronic Disease Management program, will provide [facility] info once reached. Patient referred by: [facility] Marisol Contact made with patient: No - 2nd att empt to reach patient, left another message: Hi my name is Aster duenas, RN and I am calling from the [facility] on behalf of your PCP, Selwyn Garcia MD. We are excited to share with you a new program to help you manage your health. . I hope you can take the time to speak with me. (Tre ep encounter open for additional two business days in case patient calls karishma k. Close encounter if no response by end of second business day) Closing: Could not reach the patient after two attempted outreaches. Division Head to retry patient in one week. END OUTREACH Aster March RN December 14, 2021 2:36 PM Allergies As of Date: 12/14/2021 Noted Allergy Reaction WELLBUTRIN SR (BUPROPION) 05/08/2008 1 - Mental Status Change Comments: made me hallucinate Date Reviewed: 12/13/2021 Reviewed by: Kaylyn amaya Assessed Reason for Visit: Community Monitoring Outreach [Other] Cmt: Initial CDM Outreach/ [facility] Prescriptions as of 12/14/2021 - atorvastatin (LIPITOR) 10 mg tablet Take 1 tablet by mouth once daily. - citalopram (CELEXA) 20 mg tablet Take 1 tablet by mouth once daily. - onlrqsabqdx-hharulvza-ebtwqvdr (TRELE GY ELLIPTA) 100-62.5-25 mcg inhalation powder Inhale 1 Puff as instructed once daily . - gabapentin (NEURONTIN) 300 mg capsul e Take 1 capsule by mouth twice daily fo r 90 days. - losartan (COZAAR) 50 mg tablet Take 1 tablet by mouth twice daily. - omeprazole (PRILOSEC) 40 mg capsule Take 1 capsule by mouth once daily. - promethazine (PHENERGAN) 6.25 mg/5 mL syrup Take 5-10 mL by mouth four times daily as needed for nausea/vomiting (and cough). - codeine-guaiFENesin (GUAIFENESIN AC) 10-100 mg/5 mL syrup Take 5-10 mL by mouth four times daily as needed for up to 7 days. - HYDROcodone-acetaminophen (NORCO) 5-3 25 mg per tablet Take 1 tablet by mouth every 12 hours as needed for pain (Severe pain) for up to 7 days. - amLODIPine (NORVASC) 2.5 mg tablet Take 1 tablet by mouth once daily. - ibuprofen (MOTRIN) 800 mg tablet Take 1 tablet by mouth every 8 hours as needed for pain (back). Take with food - aspirin 81 mg chewable tablet Take 1 tablet by mouth once daily. - Food Supplement, Lactose-Free (ENSURE ACTIVE HIGH PROTEIN) liqd Take 237 mL by mouth once daily. - albuterol HFA (VENTOLIN HFA) 90 mcg/ actuation inhaler Inhale 2 Puffs as instructed every 4 h ours as needed. -active - Ciclopirox (PENLAC) 8 % solution Apply to affected area once daily. TO AFFECTED AREA. - ketoconazole (NIZORAL) 2 % cream Apply 1 application to affected area once daily. To rash on legs and feet for 2 weeks at least and continue for 1 we ek after rash resolves. - nabumetone (RELAFEN) 500 mg tablet Take 1 tablet by mouth twice daily. - diclofenac sodium (VOLTAREN) 1 % topi philip gel Apply 2 grams to affected area four ti mes daily. - guaiFENesin (MUCINEX) 600 mg 12 hr ta blet Take 2 tablets by mouth twice daily as needed for Cold/Allergy Symptoms. - COMPOUNDED PRESCRIPTION Overnight pulse oximetry-- J42 Chronic bronchitis, R09.02hypoxemia - cholecalciferol (VITAMIN D3) 1,000 un it tab tablet Take 1 tablet by mouth once daily. - polyethylene glycol 3350 (MIRALAX, GL YCOLAX) 17 gram packet Take 1 Packet by mouth once daily. - thiamine (VITAMIN B1) 100 mg tablet Take 1 tablet by mouth three times irma ly. - albuterol (PROVENTIL) 2.5 mg /3 mL (0 .083 %) nebulizer solution Use 3 mL via nebulizer every 4 hours a s needed for Wheezing/Shortness of Breath. Use over 5-15minutes. - COMPOUNDED PRESCRIPTION Nebulizer for home use. Dx: chronic br onchitis Meds Comments as of 09/02/2018: 09/02/18 The medications are managed by this patient by: BHARGAVI Menjivar Pharm-T Problem List As Of Date 12/14/2021 Note d Resolved COLLES' FRACTURE-CLOSED [S52.539A] 09/28/2005 RADIAL STYLOID TENOSYNOV [M65.4] 06/2809/28/2005 FX LATERAL MALLEOLUS-CLOSE [S82.63XA] 11/08/2005 09/18/2007 Chronic bronchitis (HCC) [J42] 007 INSOMNIA, intermittent [G47.00] 2006 Tobacco use disorder [F17.200] 007 Acute sinusitis, unspecified [J01.90] 02/06/2008 06/13/2017 Reactive depression [F32.9] 02/06/2008 GENERALIZED ANXIETY DIS [F41.1] 2007 GLAUCOMA NOS [H40.9] 02/06/2008 ALLERGIC RHINITIS NOS [J30.9] 05/08/19 09 FAMILY HX GI MALIGNANCY [Z80.0] 2008 DYSPHAGIA NEC [R13.19] 08/25/2008 UNSP ABNORMAL MAMMOGRAM [R92.8] 2008 DUODENITIS W/O HEMORRHAGE [K29.80] ACUTE GASTRITIS W/O HEMORRHAGE [K29.00 ] 09/14/2008 Unspecified Disorder of Skin and Subcu taneous T*12/01/2008 Helicobacter Pylori 12/08/2008 Benign Neoplasm of Skin of Trunk, exce pt Scrotu*12/09/2008 Fracture of right distal radius [S52.5 01A] 07/24/2012 11/24/2014 Ankle fracture [S82.899A] 11/24/2014 Essential hypertension [I10] 7 Gastroesophageal reflux disease withou t esophag*10/20/2017 Compression fracture of T5 vertebra (H CC) [S22.*08/24/2018 Trauma [T14.90XA] 08/27/2018 Fall from ladder [W11.XXXA] 08/27/2018 Closed fracture of multiple ribs of ri ght side *08/27/2018 Wheezing [R06.2] 08/27/2018 Hypoxia [R09.02] 08/27/2018 Back pain [M54.9] 09/2018 Incidental lung nodule, greater than o r equal t*11/04/2019 COPD, severe (HCC) [J44.9] 11/04/2019 Tension pneumothorax [J93.0] 0 Chronic respiratory failure with hypox ia (HCC) *12/25/2019 Community acquired pneumonia of left l ower lobe*12/25/2019 Cervical spondylosis without myelopath y [M47.81*03/02/2020 05/27/2020 Lumbosacral spondylosis without myelop athy [M47*03/02/2020 05/27/2020 Encounter Status:Closed by ALBA MARCH on 12/14/21 CNOV Observed: 12/13/2021 9:40 AM Status: COMPLETED S ource: [facility] REPOSITOR Y Office Visit (INTMWS) DALIA MENDES ([id number]) 1955 F Date Time Provider Department 12/13/21 9:40 AM SELWYN GARCIA INTMWS During your visit today, we recorded t he following information about you: Pulse Blood pressure Weight 97/minute 122/88 48.5 kg Selwyn Garcia MD 01/05/2022 2:37 PM Signed This note was created using ImageProtectriter. Subjective Dalia Mendes is a 66 year old femal e. Patient presents with: F/U 6 months SUBJECTIVE: Dalia Mendes is a 66 year old year old lady here today for 6 month follow up appointment for review of medical co nditions. Does love to eat. Breathing issues contributing to diffi culty keeping weight up. Has nurse from palliative care. To help with SOB. Working with Dr. Kirill Bentley at [facility] (education teacher). Plans for lung biopsy discussed. Noted BP was too high when went for biopsy appointment so lung biopsy was cancelle d that day. Needs rescheduled. BPs have been fine since then. Stable on current meds without adverse effects. Requested med for pain. Chronic back is sues. Plans to call a help line to get patche s to help with quitting smoking. PAST MEDICAL HISTORY Diagnosis Date Anxiety Back pain 09/2018 T5 compression fracture in fall. Chronic obstructive pulmonary disease (COPD) (HCC) Dysphagia, unspecified(787.20) Emphysema lung (HCC) Hypertension INSOMNIA, intermittent 12/17/2006 stress related Unspecified chronic bronchitis (HCC) Current Outpatient Medications Medication Sig atorvastatin (LIPITOR) 10 mg tablet Ta ke 1 tablet by mouth once daily. amLODIPine (NORVASC) 2.5 mg tablet Herb e 1 tablet by mouth once daily. citalopram (CELEXA) 20 mg tablet Take 1 tablet by mouth once daily. losartan (COZAAR) 50 mg tablet Take 1 tablet by mouth twice daily. omeprazole (PRILOSEC) 40 mg capsule Ta ke 1 capsule by mouth once daily. ibuprofen (MOTRIN) 800 mg tablet Take 1 tablet by mouth every 8 hours as needed for pain (back). Take with food gabapentin (NEURONTIN) 300 mg capsule Take 1 capsule by mouth twice daily for 90 days. dvorxlbanga-mbqorrtwo-qmllcbco (TRELEG Y ELLIPTA) 100-62.5-25 mcg inhalation powder Inhale 1 Puff as instructed once daily. aspirin 81 mg chewable tablet Take 1 t ablet by mouth once daily. Food Supplement, Lactose-Free (ENSURE ACTIVE HIGH PROTEIN) liqd Take 237 mL by mouth once daily. albuterol HFA (VENTOLIN HFA) 90 mcg/ac tuation inhaler Inhale 2 Puffs as instructed every 4 hours as needed. -ac tive HYDROcodone-acetaminophen (NORCO) 5-32 5 mg per tablet Take 1 tablet by mouth every 12 hours as needed for pain (Erna re pain) for up to 7 days. Ciclopirox (PENLAC) 8 % solution Apply to affected area once daily. TO AFFECTED AREA. (Patient not taking: Rep orted on 12/13/2020 ) ketoconazole (NIZORAL) 2 % cream Apply 1 application to affected area once daily. To rash on legs and feet for 2 w eeks at least and continue for 1 week after rash resolves. (Patient not takin g: Reported on 12/13/2020 ) promethazine (PHENERGAN) 6.25 mg/5 mL syrup Take 5-10 mL by mouth four times daily as needed for Nausea/Vomiting (an d cough). (Patient not taking: Reported on 12/13/2020 ) nabumetone (RELAFEN) 500 mg tablet Herb e 1 tablet by mouth twice daily. diclofenac sodium (VOLTAREN) 1 % topic al gel Apply 2 grams to affected area four times daily. (Patient not taking: Reported on 12/13/2020) PREDNISONE ORAL Take by mouth. See Tap er instructions. guaiFENesin (MUCINEX) 600 mg 12 hr tab let Take 2 tablets by mouth twice daily as needed for Cold/Allergy Symptoms. (P atient not taking: Reported on 12/13/2020 ) COMPOUNDED PRESCRIPTION Overnight puls e oximetry-- J42 Chronic bronchitis, R09.02hypoxemia cholecalciferol (VITAMIN D3) 1,000 uni t tab tablet Take 1 tablet by mouth once daily. polyethylene glycol 3350 (MIRALAX, GLY COLAX) 17 gram packet Take 1 Packet by mouth once daily. (Patient not taking: Reported on 12/13/2020 ) thiamine (VITAMIN B1) 100 mg tablet Ta ke 1 tablet by mouth three times daily. albuterol (PROVENTIL) 2.5 mg /3 mL (0. 083 %) nebulizer solution Use 3 mL via nebulizer every 4 hours as needed for W heezing/Shortness of Breath. Use over 5-15minutes. COMPOUNDED PRESCRIPTION Nebulizer for home use. Dx: chronic bronchitis No current facility-administered medica tions for this visit. Review of Systems Objective Last 5 Encounter Wt Readings: Date: Wt: 12/13/2021 48.5 kg (107 lb) 08/19/2021 51.7 kg (114 lb) 12/13/2020 47.2 kg (104 lb) 11/22/2020 46.7 kg (103 lb) 11/11/2020 48.1 kg (106 lb) No waist measurement recorded Estimated body mass index is 18.66 kg/m ? as calculated from the following: Height as of 08/19/21: 161.3 cm (5' 3.5 ). Weight as of this encounter: 48.5 kg ( 107 lb). Last 5 Encounter BP Readings: Date: BP: 12/13/2021 142/90 08/19/2021 132/88 12/13/2020 124/82 11/22/2020 128/82 11/11/2020 156/70 Physical Exam Constitutional: Appearance: Normal appearance. She is underweight. She is not toxic-appearing or diaphoretic. HENT: Head: Normocephalic. Eyes: Conjunctiva/sclera: Conjunctivae kaye l. Cardiovascular: Rate and Rhythm: Normal rate and regul ar rhythm. Heart sounds: Normal heart sounds. Pulmonary: Effort: Pulmonary effort is normal. Breath sounds: Normal breath sounds. D ecreased air movement present. Comments: Occasional cough Skin: General: Skin is warm and dry. Neurological: General: No focal deficit present. Mental Status: She is alert and orient ed to person, place, and time. Psychiatric: Attention and Perception: Attention an d perception normal. Mood and Affect: Affect normal. Mood i s anxious and depressed. Speech: Speech normal. Behavior: Behavior normal. Thought Content: Thought content kaye l. Judgment: Judgment normal. Last labs: Component Latest Ref Rng AND Units 2021 WBC 3.70 - 11.00 k/uL 5.81 RBC 3.90 - 5.20 m/uL 4.24 Hemoglobin 11.5 - 15.5 g/dL 12.9 Hematocrit 36.0 - 46.0 % 39.4 MCV 80.0 - 100.0 fL 92.9 MCH 26.0 - 34.0 pg 30.4 MCHC 30.5 - 36.0 g/dL 32.7 RDW-CV 11.5 - 15.0 % 13.2 Platelet Count 150 - 400 k/uL 390 MPV 9.0 - 12.7 fL 10.1 Neut% % 61.1 Abs Neut (ANC) 1.45 - 7.50 k/uL 3.55 Lymph% % 21.5 Abs Lymph 1.00 - 4.00 k/uL 1.25 Hoke% % 13.3 Abs Hoke <0.87 k/uL 0.77 Eosin% % 3.1 Abs Eosin <0.46 k/uL 0.18 Baso% % 0.7 Abs Baso <0.11 k/uL 0.04 Immature Gran % % 0.3 IMMATURE GRANS (ABS) <0.10 k/uL <0.03 NRBC /100 WBC 0.0 Absolute nRBC <0.01 k/uL <0.01 DTYPE Auto Protein, Total 6.3 - 8.0 g/dL 6.9 Albumin 3.9 - 4.9 g/dL 4.3 Calcium 8.5 - 10.2 mg/dL 9.0 Bilirubin, Total 0.2 - 1.3 mg/dL 0.7 Alkaline Phosphatase 34 - 123 U/L 61 AST 13 - 35 U/L 17 ALT 7 - 38 U/L 12 Glucose 74 - 99 mg/dL 97 BUN 7 - 21 mg/dL 16 Creatinine 0.58 - 0.96 mg/dL 0.54 (L) Sodium 136 - 144 mmol/L 133 (L) Potassium 3.7 - 5.1 mmol/L 4.0 Chloride 97 - 105 mmol/L 96 (L) CO2 22 - 30 mmol/L 26 Anion Gap 9 - 18 mmol/L 11 eGFR >=60 mL/min/1.73mA? 100 Total Cholesterol, Nonfasting <200 mg/d L 159 Triglycerides, Nonfasting <150 mg/dL 5 1 HDL Cholesterol, Nonfasting >39 mg/dL 6 6 LDL Cholesterol, Nonfasting <100 mg/dL 83 Non HDL Cholesterol, Nonfasting <130 mg /dL 93 VLDL Cholesterol, Nonfasting <30 mg/dL 10 Total Chol/HDL Ratio, Nonfasting <5.10 mg/dL 2.41 LDL/HDL Ratio, Nonfasting <2.54 mg/dL 1 .26 Vitamin B12 232-1,245 pg/mL >2,000 (H) Magnesium 1.7 - 2.3 mg/dL 1.9 TSH 0.270 - 4.200 mIU/L 1.210 Assessment and Plan ASSESSMENT/PLAN: 1. Essential hypertension - ICD9: 401.9 , ICD10: I10 (primary diagnosis) - good control - Continue current medication(s) - Recommended regular aerobic exercise. - Recommend home blood pressure monitor ing, to bring results in on next visit - BP optimized and stable for sheltonin g with planned lung biopsy. Note that she does have history of anxiety, so if BP were to go up before the biopsy, could consider pretreatment with anxiol ytic. - Goal of BP <130/80 2. Lung mass - ICD9: 786.6, ICD10: R91. 8 Needs to pursue lung biopsy. No medical contraindications at this ti me for planned procedure, Will fax this progress note to Dr. Fransisco moore as requested so they can proceed with lung biopsy. 3. PAD (peripheral artery disease) (HCC ) - ICD9: 443.9, ICD10: I73.9 Continue present management. - ATORVASTATIN 10 MG TABLET 4. Compression fracture of T5 vertebra, sequela - ICD9: 905.1, ICD10: S22.050S Continue present management. Can treat acute pain as needed with occ asional pain med (hydrocodone) - GABAPENTIN 300 MG CAPSULE 5. Tobacco use disorder - ICD9: 305.1, ICD10: F17.200 - Cessation encouraged. - Physiologic and physical aspects of t obacco addiction as well as strategies for quitting were discussed. - Counseling was given focusing on the harmful effects of this addiction especially given the patient's medical condition(s) which will be worsened because of the chemicals in tobacco. - Note plans to call for help-line that might be able to provide patches for nicotine replacement to help with smoki ng cessation 6. Gastroesophageal reflux disease with out esophagitis - ICD9: 530.81, ICD10: K21.9 - Continue treatment with: - OMEPRAZOLE 40 MG CAPSULE,DELAYED RELE ASE 7. COPD, severe (HCC) - ICD9: 496, ICD1 0: J44.9 Continue follow up with education teacher. Okay cough med. - CODEINE 10 MG-GUAIFENESIN 100 MG/5 ML ORAL LIQUID 8. Cough - ICD9: 786.2, ICD10: R05.9 As noted above - CODEINE 10 MG-GUAIFENESIN 100 MG/5 ML ORAL LIQUID 9. Cervical spondylosis without myelopa thy - ICD9: 721.0, ICD10: M47.812 Okay prn pain med. - HYDROCODONE 5 MG-ACETAMINOPHEN 325 M G TABLET 10. Lumbosacral spondylosis without mye lopathy - ICD9: 721.3, ICD10: M47.817 Okay prn pain med - HYDROCODONE 5 MG-ACETAMINOPHEN 325 MG TABLET 11. Compression fracture of T5 vertebra with routine healing, subsequent encounter - ICD9: V54.17, ICD10: S22.05 0D O - HYDROCODONE 5 MG-ACETAMINOPHEN 325 M G TABLET 12. Closed fracture of multiple ribs of right side with routine healing - ICD9: V54.19, ICD10: S22.41XD Okay prn pain med - GABAPENTIN 300 MG CAPSULE 13. Chronic respiratory failure with hy poxia--working with education teacher. 14. Protein-calorie malntutrition--work ing on getting more calories and protein in; noted that shortness of felton ath with eating limits her intake. Will try to get foods of lower volume with higher amounts of calories and protein. Cost an issue for supplements. Will con nylon mender working with SW as needed. Selwyn Garcia MD Referring Provider: SELWYN GARCIA [ [id number]] Allergies As of Date: 12/13/2021 Noted Allergy Reaction WELLBUTRIN SR (BUPROPION) 05/08/2008 1 - Mental Status Change Comments: made me hallucinate Date Reviewed: 12/13/2021 Reviewed by: Kaylyn Norman ceferino Assessed Reason for Visit: F/U 6 months [1177] Primary Visit Diagnosis:Essential hyper tension [I10] Other Visit Diagnoses:Lung mass [R91.8 ] PAD (peripheral artery disease) (HCC) [I73.9] Compression fracture of T5 vertebra, s equela [S22.050S] Tobacco use disorder [F17.200] Comment:Working on quitting smoking. Gastroesophageal reflux disease withou t esophagitis [K21.9] Comment:needs to take PPI or gets tro uble swallowing COPD, severe ([facility]) [J44.9] Cough [R05.9] Cervical spondylosis without myelopath y [M47.812] Lumbosacral spondylosis without myelo kelly [M47.817] Compression fracture of T5 vertebra wi th routine healing, subsequent encounter [S22.050 D] Closed fracture of multiple ribs of ri ght side with routine healing [S22.41XD] Chronic respiratory failure with hypox ia ([facility]) [J96.11] Protein-calorie malnutrition, unspecif ied severity ([facility]) [E46] Order(s):atorvastatin (LIPITOR) 10 mg t abletTake 1 tablet by mouth once daily.Disp: 30 tabletRfl: 5 citalopram (CELEXA) 20 mg tabletTake 1 tablet by mouth once daily.Disp: 30 tabletRfl: 5 tdkloiqrhua-ykvzlkafb-ticxkrgc (TRELE GY ELLIPTA) 100-62.5-25 mcg inhalation powderInhale 1 Puff as inst ructed once daily.Disp: 1 EachRfl: 5 gabapentin (NEURONTIN) 300 mg capsule Take 1 capsule by mouth twice daily for 90 days.Disp: 60 capsuleRfl: 5 losartan (COZAAR) 50 mg tabletTake 1 t ablet by mouth twice daily.Disp: 60 tabletRfl: 5 omeprazole (PRILOSEC) 40 mg capsuleTak e 1 capsule by mouth once daily.Disp: 30 capsuleRfl: 5 promethazine (PHENERGAN) 6.25 mg/5 mL syrupTake 5-10 mL by mouth four times daily as needed for nausea/vomit ing (and cough).Disp: 240 mLRfl: 1 [] codeine-guaiFENesin (GUAIFEN ESIN AC) 10-100 mg/5 mL syrupTake 5-10 mL by mouth four times daily as needed for up to 7 days.Disp: 236 mLRfl: 0 HYDROcodone-acetaminophen (NORCO) 5-32 5 mg per tabletTake 1 tablet by mouth every 12 hours as needed for lily n (Severe pain) for up to 7 days.Disp: 14 tabletRfl: 0 Prescriptions as of 01/05/2022 - atorvastatin (LIPITOR) 10 mg tablet Take 1 tablet by mouth once daily. - citalopram (CELEXA) 20 mg tablet Take 1 tablet by mouth once daily. - mztspfsmxxu-jwwcngepp-tqbivjjo (TRELE GY ELLIPTA) 100-62.5-25 mcg inhalation powder Inhale 1 Puff as instructed once daily . - gabapentin (NEURONTIN) 300 mg capsule Take 1 capsule by mouth twice daily fo r 90 days. - losartan (COZAAR) 50 mg tablet Take 1 tablet by mouth twice daily. - omeprazole (PRILOSEC) 40 mg capsule Take 1 capsule by mouth once daily. - promethazine (PHENERGAN) 6.25 mg/5 mL syrup Take 5-10 mL by mouth four times daily as needed for nausea/vomiting (and cough). - HYDROcodone-acetaminophen (NORCO) 5-3 25 mg per tablet Take 1 tablet by mouth every 12 hours as needed for pain (Severe pain) for up to 7 days. - amLODIPine (NORVASC) 2.5 mg tablet Take 1 tablet by mouth once daily. - ibuprofen (MOTRIN) 800 mg tablet Take 1 tablet by mouth every 8 hours a s needed for pain (back). Take with food - aspirin 81 mg chewable tablet Take 1 tablet by mouth once daily. - Food Supplement, Lactose-Free (ENSURE ACTIVE HIGH PROTEIN) liqd Take 237 mL by mouth once daily. - albuterol HFA (VENTOLIN HFA) 90 mcg/a ctuation inhaler Inhale 2 Puffs as instructed every 4 h ours as needed. -active - Ciclopirox (PENLAC) 8 % solution Apply to affected area once daily. TO AFFECTED AREA. - ketoconazole (NIZORAL) 2 % cream Apply 1 application to affected area o nce daily. To rash on legs and feet for 2 weeks at least and continue for 1 we ek after rash resolves. - nabumetone (RELAFEN) 500 mg tablet Take 1 tablet by mouth twice daily. - diclofenac sodium (VOLTAREN) 1 % topi philip gel Apply 2 grams to affected area four ti mes daily. - guaiFENesin (MUCINEX) 600 mg 12 hr ta blet Take 2 tablets by mouth twice daily as needed for Cold/Allergy Symptoms. - COMPOUNDED PRESCRIPTION Overnight pulse oximetry-- J42 Chronic bronchitis, R09.02hypoxemia - cholecalciferol (VITAMIN D3) 1,000 u nit tab tablet Take 1 tablet by mouth once daily. - polyethylene glycol 3350 (MIRALAX, GL YCOLAX) 17 gram packet Take 1 Packet by mouth once daily. - thiamine (VITAMIN B1) 100 mg tablet Take 1 tablet by mouth three times da nicholas. - albuterol (PROVENTIL) 2.5 mg /3 mL (0 .083 %) nebulizer solution Use 3 mL via nebulizer every 4 hours a s needed for Wheezing/Shortness of Breath. Use over 5-15minutes. - COMPOUNDED PRESCRIPTION Nebulizer for home use. Dx: chronic [facility] Med[facility] Comments as of 09/02/2018: 09/02/18 The medications are managed by this patient by: PATIENT Janell Menjivar Pharm-T Problem List As Of Date 12/13/2021 Not ed Resolved COLLES' FRACTURE-CLOSED [S52.539A] 09/28/2005 RADIAL STYLOID TENOSYNOV [M65.4] 06/2809/28/2005 FX LATERAL MALLEOLUS-CLOSE [S82.63XA] 11/08/2005 09/18/2007 Chronic bronchitis (HCC) [J42] 007 INSOMNIA, intermittent [G47.00] 2006 Tobacco use disorder [F17.200] 007 Acute sinusitis, unspecified [J01.90] 02/06/2008 06/13/2017 Reactive depression [F32.9] 02/06/2008 GENERALIZED ANXIETY DIS [F41.1] 2007 GLAUCOMA NOS [H40.9] 02/06/2008 ALLERGIC RHINITIS NOS [J30.9] 05/08/19 09 FAMILY HX GI MALIGNANCY [Z80.0] 2008 DYSPHAGIA NEC [R13.19] 08/25/2008 UNSP ABNORMAL MAMMOGRAM [R92.8] 2008 DUODENITIS W/O HEMORRHAGE [K29.80] ACUTE GASTRITIS W/O HEMORRHAGE [K29.00 ] 09/14/2008 Unspecified Disorder of Skin and Subcu taneous T*12/01/2008 Helicobacter Pylori 12/08/2008 Benign Neoplasm of Skin of Trunk, exce pt Scrotu*12/09/2008 Fracture of right distal radius [S52.5 01A] 07/24/2012 11/24/2014 Ankle fracture [S82.899A] 11/24/2014 Essential hypertension [I10] 7 Gastroesophageal reflux disease withou t esophag*10/20/2017 Compression fracture of T5 vertebra ( HCC) [S22.*08/24/2018 Trauma [T14.90XA] 08/27/2018 Fall from ladder [W11.XXXA] 08/27/2018 Closed fracture of multiple ribs of r ight side *08/27/2018 Wheezing [R06.2] 08/27/2018 Hypoxia [R09.02] 08/27/2018 Back pain [M54.9] 09/2018 Incidental lung nodule, greater than o r equal t*11/04/2019 COPD, severe (HCC) [J44.9] 11/04/2019 Tension pneumothorax [J93.0] 0 Chronic respiratory failure with hypox ia (HCC) *12/25/2019 Community acquired pneumonia of left l ower lobe*12/25/2019 Cervical spondylosis without myelopath y [M47.81*03/02/2020 05/27/2020 Lumbosacral spondylosis without myelop athy [M47*03/02/2020 05/27/2020 Prescriptions ordered this encounter Di sp Refills Start End ATORVASTATIN 10 MG TABLET 30 t* 5 11/25 Route: ORAL Sig: Take 1 tablet by mouth once daily . CITALOPRAM 20 MG TABLET 30 t* 5 2021 Route: ORAL Sig: Take 1 tablet by mouth once daily . TRELEGY ELLIPTA 100 MCG-62.5 MCG-25 * 1 Ea* 5 12/13/2021 Route: INHALATION Sig: Inhale 1 Puff as instructed once daily. GABAPENTIN 300 MG CAPSULE 60 c* 5 11/2503/13/2022 Route: ORAL Sig: Take 1 capsule by mouth twice irma ly for 90 days. LOSARTAN 50 MG TABLET 60 t* 5 12/14/19 Route: ORAL Sig: Take 1 tablet by mouth twice meaghan y. OMEPRAZOLE 40 MG CAPSULE,DELAYED REL* 30 c* 12/13/2021 Route: ORAL Sig: Take 1 capsule by mouth once meaghan y. PROMETHAZINE 6.25 MG/5 ML ORAL SYRUP 2 40 * 1 12/13/2021 Route: ORAL Sig: Take 5-10 mL by mouth four times daily as needed for nausea/vomiting (and cough). CODEINE 10 MG-GUAIFENESIN 100 MG/5 M* 236 * 0 12/13/2021 12/20/2021 Route: ORAL Sig: Take 5-10 mL by mouth four times daily as needed for up to 7 days. HYDROCODONE 5 MG-ACETAMINOPHEN 325 M* 14 t* 0 12/13/2021 12/20/2021 Route: ORAL Sig: Take 1 tablet by mouth every 12 h ours as needed for pain (Severe pain) for up to 7 days. Medications Discontinued During This En counter Prescriptions - PREDNISONE ORAL (Discontinued) Reported on 12/13/2021 - promethazine (PHENERGAN) 6.25 mg/5 mL syrup (Discontinued) No sig reported - HYDROcodone-acetaminophen (NORCO) 5-3 25 mg per tablet (Discontinued) Take 1 tablet by mouth every 12 hours as needed for pain (Severe pain) for up to 7 days. - codeine-guaiFENesin (GUAIFENESIN AC) 10-100 mg/5 mL syrup (Discontinued) Take 5-10 mL by mouth four times daily as needed for up to 7 days. - njkmsggufwa-rnmdilhas-fruxlfsy (TRELE GY ELLIPTA) 100-62.5-25 mcg inhalation powder (Discontinued) Inhale 1 Puff as instructed once daily . - atorvastatin (LIPITOR) 10 mg tablet ( Discontinued) Take 1 tablet by mouth once daily. - citalopram (CELEXA) 20 mg tablet (Dis continued) Take 1 tablet by mouth once daily. - losartan (COZAAR) 50 mg tablet (Disco ntinued) Take 1 tablet by mouth twice daily. - omeprazole (PRILOSEC) 40 mg capsule ( Discontinued) Take 1 capsule by mouth once daily. - gabapentin (NEURONTIN) 300 mg capsule (Discontinued) Take 1 capsule by mouth twice daily fo r 90 days. Level of Service: OFFICE/OUTPATIENT EST ABLISHED MOD MDM 30-39 MIN [90337] Disposition: Return in about 6 months (around 06/12/2022) for 6 months follow up. Follow-up and Disposition History for E ncounter Date Provider Department Center 12/13/2021 [id number]-URTXYSNNSELWYN GARCIA INTMWS [facility] Encounter Status:Closed by ANUSHA GARCIA on 01/05/22 PROGRESS Observed: 12/13/2021 9:40 AM Status: COMPLETED S ource: [facility] HNO ID: [id number] Author: Selwyn Garcia MD Service: ? Author Type: Physician Type: Progress Notes Filed: 01/05/2022 2:37 PM Note Text: This note was created using ImageProtectriter. Subjective Dalia Mendes is a 66 year old femal e. Patient presents with: F/U 6 months SUBJECTIVE: Dalia Mendes is a 66 year old year old lady here today for 6 month follow up appointment for review of me dical conditions. Does love to eat. Breathing issues contributing to diffic ulty keeping weight up. Has nurse from palliative care. To help with SOB. Working with Dr. Kirill Bentley at [facility] (education teacher). Plans for lung biopsy discussed. Noted BP was too high when went for biopsy appointment so alida g biopsy was cancelled that day. Needs rescheduled. BPs have been fine s mike then. Stable on current meds without adverse effects. Requested med for pain. Chronic back is sues. Plans to call a help line to get patche s to help with quitting smoking. PAST MEDICAL HISTORY Diagnosis Date Anxiety Back pain 09/2018 T5 compression fracture in fall. Chronic obstructive pulmonary disease (COPD) ([facility]) Dysphagia, unspecified(787.20) Emphysema lung ([facility]) Hypertension INSOMNIA, intermittent 12/17/2006 stress related Unspecified chronic bronchitis ([facility]) Current Outpatient Medications Medication Sig atorvastatin (LIPITOR) 10 mg tablet Ta ke 1 tablet by mouth once daily. amLODIPine (NORVASC) 2.5 mg tablet Herb e 1 tablet by mouth once daily. citalopram (CELEXA) 20 mg tablet Take 1 tablet by mouth once daily. losartan (COZAAR) 50 mg tablet Take 1 tablet by mouth twice daily. omeprazole (PRILOSEC) 40 mg capsule Ta ke 1 capsule by mouth once daily. ibuprofen (MOTRIN) 800 mg tablet Take 1 tablet by mouth every 8 hours as needed for pain (back). Take with food gabapentin (NEURONTIN) 300 mg capsule Take 1 capsule by mouth twice daily for 90 days. fweoakwkkup-yrobzyxrz-uhelewzr (TRELEG Y ELLIPTA) 100-62.5-25 mcg inhalation powder Inhale 1 Puff as inst ructed once daily. aspirin 81 mg chewable tablet Take 1 t ablet by mouth once daily. Food Supplement, Lactose-Free (ENSURE ACTIVE HIGH PROTEIN) liqd Take 237 mL by mouth once daily. albuterol HFA (VENTOLIN HFA) 90 mcg/ac tuation inhaler Inhale 2 Puffs as instructed every 4 hours as needed. -ac tive HYDROcodone-acetaminophen (NORCO) 5-32 5 mg per tablet Take 1 tablet by mouth every 12 hours as needed for pain (Severe pain) for up to 7 days. Ciclopirox (PENLAC) 8 % solution Apply to affected area once daily. TO AFFECTED AREA. (Patient not taking: Rep orted on 12/13/2020 ) ketoconazole (NIZORAL) 2 % cream Apply 1 application to affected area once daily. To rash on legs and feet fo r 2 weeks at least and continue for 1 week after rash resolves. (Patient n ot taking: Reported on 12/13/2020 ) promethazine (PHENERGAN) 6.25 mg/5 mL syrup Take 5-10 mL by mouth four times daily as needed for Nausea/Vomiti ng (and cough). (Patient not taking: Reported on 12/13/2020 ) nabumetone (RELAFEN) 500 mg tablet Herb e 1 tablet by mouth twice daily. diclofenac sodium (VOLTAREN) 1 % topic al gel Apply 2 grams to affected area four times daily. (Patient not herb ing: Reported on 12/13/2020) PREDNISONE ORAL Take by mouth. See Tap er instructions. guaiFENesin (MUCINEX) 600 mg 12 hr tab let Take 2 tablets by mouth twice daily as needed for Cold/Allergy Sympto ms. (Patient not taking: Reported on 12/13/2020 ) COMPOUNDED PRESCRIPTION Overnight puls e oximetry-- J42 Chronic bronchitis, R09.02hypoxemia cholecalciferol (VITAMIN D3) 1,000 uni t tab tablet Take 1 tablet by mouth once daily. polyethylene glycol 3350 (MIRALAX, GLY COLAX) 17 gram packet Take 1 Packet by mouth once daily. (Patient not takin g: Reported on 12/13/2020 ) thiamine (VITAMIN B1) 100 mg tablet Ta ke 1 tablet by mouth three times daily. albuterol (PROVENTIL) 2.5 mg /3 mL (0. 083 %) nebulizer solution Use 3 mL via nebulizer every 4 hours as needed f or Wheezing/Shortness of Breath. Use over 5-15minutes. COMPOUNDED PRESCRIPTION Nebulizer for home use. Dx: chronic bronchitis No current facility-administered medica tions for this visit. Review of Systems Objective Last 5 Encounter Wt Readings: Date: Wt: 12/13/2021 48.5 kg (107 lb) 08/19/2021 51.7 kg (114 lb) 12/13/2020 47.2 kg (104 lb) 11/22/2020 46.7 kg (103 lb) 11/11/2020 48.1 kg (106 lb) No waist measurement recorded Estimated body mass index is 18.66 kg/ m? as calculated from the following: Height as of 08/19/21: 161.3 cm (5' 3.5 ). Weight as of this encounter: 48.5 kg ( 107 lb). Last 5 Encounter BP Readings: Date: BP: 12/13/2021 142/90 08/19/2021 132/88 12/13/2020 124/82 11/22/2020 128/82 11/11/2020 156/70 Physical Exam Constitutional: Appearance: Normal appearance. She is underweight. She is not toxic-appearing or diaphoretic. HENT: Head: Normocephalic. Eyes: Conjunctiva/sclera: Conjunctivae kaye l. Cardiovascular: Rate and Rhythm: Normal rate and regul ar rhythm. Heart sounds: Normal heart sounds. Pulmonary: Effort: Pulmonary effort is normal. Breath sounds: Normal breath sounds. D ecreased air movement present. Comments: Occasional cough Skin: General: Skin is warm and dry. Neurological: General: No focal deficit present. Mental Status: She is alert and orient ed to person, place, and time. Psychiatric: Attention and Perception: Attention a nd perception normal. Mood and Affect: Affect normal. Mood i s anxious and depressed. Speech: Speech normal. Behavior: Behavior normal. Thought Content: Thought content kaye l. Judgment: Judgment normal. Last labs: Component Latest Ref Rng AND Units 2021 WBC 3.70 - 11.00 k/uL 5.81 RBC 3.90 - 5.20 m/uL 4.24 Hemoglobin 11.5 - 15.5 g/dL 12.9 Hematocrit 36.0 - 46.0 % 39.4 MCV 80.0 - 100.0 fL 92.9 MCH 26.0 - 34.0 pg 30.4 MCHC 30.5 - 36.0 g/dL 32.7 RDW-CV 11.5 - 15.0 % 13.2 Platelet Count 150 - 400 k/uL 390 MPV 9.0 - 12.7 fL 10.1 Neut% % 61.1 Abs Neut (ANC) 1.45 - 7.50 k/uL 3.55 Lymph% % 21.5 Abs Lymph 1.00 - 4.00 k/uL 1.25 Hoke% % 13.3 Abs Hoke <0.87 k/uL 0.77 Eosin% % 3.1 Abs Eosin <0.46 k/uL 0.18 Baso% % 0.7 Abs Baso <0.11 k/uL 0.04 Immature Gran % % 0.3 IMMATURE GRANS (ABS) <0.10 k/uL <0.03 NRBC /100 WBC 0.0 Absolute nRBC <0.01 k/uL <0.01 DTYPE Auto Protein, Total 6.3 - 8.0 g/dL 6.9 Albumin 3.9 - 4.9 g/dL 4.3 Calcium 8.5 - 10.2 mg/dL 9.0 Bilirubin, Total 0.2 - 1.3 mg/dL 0.7 Alkaline Phosphatase 34 - 123 U/L 61 AST 13 - 35 U/L 17 ALT 7 - 38 U/L 12 Glucose 74 - 99 mg/dL 97 BUN 7 - 21 mg/dL 16 Creatinine 0.58 - 0.96 mg/dL 0.54 (L) Sodium 136 - 144 mmol/L 133 (L) Potassium 3.7 - 5.1 mmol/L 4.0 Chloride 97 - 105 mmol/L 96 (L) CO2 22 - 30 mmol/L 26 Anion Gap 9 - 18 mmol/L 11 eGFR >=60 mL/min/1.73mA? 100 Total Cholesterol, Nonfasting <200 mg/d L 159 Triglycerides, Nonfasting <150 mg/dL 51 HDL Cholesterol, Nonfasting >39 mg/dL 6 6 LDL Cholesterol, Nonfasting <100 mg/dL 83 Non HDL Cholesterol, Nonfasting <130 m g/dL 93 VLDL Cholesterol, Nonfasting <30 mg/dL 10 Total Chol/HDL Ratio, Nonfasting <5.10 mg/dL 2.41 LDL/HDL Ratio, Nonfasting <2.54 mg/dL 1 .26 Vitamin B12 232-1,245 pg/mL >2,000 (H) Magnesium 1.7 - 2.3 mg/dL 1.9 TSH 0.270 - 4.200 mIU/L 1.210 Assessment and Plan ASSESSMENT/PLAN: 1. Essential hypertension - ICD9: 401.9 , ICD10: I10 (primary diagnosis) - good control - Continue current medication(s) - Recommended regular aerobic exercise. - Recommend home blood pressure monitor ing, to bring results in on next visit - BP optimized and stable for proceedin g with planned lung biopsy. Note that she does have history of anxiety, so if BP were to go up before the biopsy, could consider pretreatment wit h anxiolytic. - Goal of BP <130/80 2. Lung mass - ICD9: 786.6, ICD10: R91. 8 Needs to pursue lung biopsy. No medical contraindications at this ti me for planned procedure, Will fax this progress note to Dr. Darek lorenzo as requested so they can proceed with lung biopsy. 3. PAD (peripheral artery disease) (HCC ) - ICD9: 443.9, ICD10: I73.9 Continue present management. - ATORVASTATIN 10 MG TABLET 4. Compression fracture of T5 vertebra, sequela - ICD9: 905.1, ICD10: S22.050S Continue present management. Can treat acute pain as needed with occ asional pain med (hydrocodone) - GABAPENTIN 300 MG CAPSULE 5. Tobacco use disorder - ICD9: 305.1, ICD10: F17.200 - Cessation encouraged. - Physiologic and physical aspects of t obacco addiction as well as strategies for quitting were discussed. - Counseling was given focusing on the harmful effects of this addiction especially given the patient's medical condition(s) which will be worsened because of the chemicals in tobacco. - Note plans to call for help-line that might be able to provide patches for nicotine replacement to help with s moking cessation 6. Gastroesophageal reflux disease wit hout esophagitis - ICD9: 530.81, ICD10: K21.9 - Continue treatment with: - OMEPRAZOLE 40 MG CAPSULE,DELAYED RELE ASE 7. COPD, severe (HCC) - ICD9: 496, ICD1 0: J44.9 Continue follow up with education teacher. Okay cough med. - CODEINE 10 MG-GUAIFENESIN 100 MG/5 ML ORAL LIQUID 8. Cough - ICD9: 786.2, ICD10: R05.9 As noted above - CODEINE 10 MG-GUAIFENESIN 100 MG/5 ML ORAL LIQUID 9. Cervical spondylosis without myelopa thy - ICD9: 721.0, ICD10: M47.812 Okay prn pain med. - HYDROCODONE 5 MG-ACETAMINOPHEN 325 MG TABLET 10. Lumbosacral spondylosis without mye lopathy - ICD9: 721.3, ICD10: M47.817 Okay prn pain med - HYDROCODONE 5 MG-ACETAMINOPHEN 325 MG TABLET 11. Compression fracture of T5 vertebra with routine healing, subsequent encounter - ICD9: V54.17, ICD10: S22.05 0D O - HYDROCODONE 5 MG-ACETAMINOPHEN 325 MG TABLET 12. Closed fracture of multiple ribs of right side with routine healing - ICD9: V54.19, ICD10: S22.41XD Okay prn pain med - GABAPENTIN 300 MG CAPSULE 13. Chronic respiratory failure with hy poxia--working with education teacher. 14. Protein-calorie malntutrition--work ing on getting more calories and protein in; noted that shortness of felton ath with eating limits her intake. Will try to get foods of lower volume w ith higher amounts of calories and protein. Cost an issue for supplements. Will consider working with SW as needed. Selwyn Garcia MD CNPN Observed: 12/05/2021 12:00 AM Status: COMPLETED Source: [facility] REPOSITOR Y Telephone (INTMWS) DALIA MENDES ([id number]) 1955 F Date Time Provider Department 12/05/21 SELWYN GARCIA INTCristineWS During your visit today, we recorded the following information about you: Sugey Amezcuakallie SERVICES TECH 12/05/2021 10:34 AM Signed Donya Nurse from [facility] calling was edwige ble to do lung biopsy, patient blood pressure is 226/134. Patient said she h as not been taking her medications due to no money to get rx. Nurse is having Case management to get involved with the patient also. Nurse is also calling Dr Irene to see if wanting one time dose of medication given to the patient. Anay re patient has appt on 12/13 with PCP. Selwyn Garcia MD 12/14/2021 6:01 PM S igned Patients BP fine at appointment Taking her meds Should be fine for biopsy Racheal Lopez LPN 12/15/2021 2:32 PM Sig elio Nurse from [facility] was given providers mess age and verbalized understanding. States patient has had to reschedule 3 times now and not sure if they will reschedule or not. Allergies As of Date: 12/05/2021 Noted Allergy Reaction WELLBUTRIN SR (BUPROPION) 05/08/2008 1 - Mental Status Change Comments: made me hallucinate Date Reviewed: 08/19/2021 Reviewed by: Racheal Lopez LPN - Fully Assessed Reason for Visit: Patient Update [1234] Cmt: unable to d o lung biopsy Prescriptions as of 12/15/2021 - atorvastatin (LIPITOR) 10 mg tablet Take 1 tablet by mouth once daily. - citalopram (CELEXA) 20 mg tablet Take 1 tablet by mouth once daily. - mypujmnummy-beykcpusn-scxgfrul (TRELE GY ELLIPTA) 100-62.5-25 mcg inhalation powder Inhale 1 Puff as instructed once daily . - gabapentin (NEURONTIN) 300 mg capsule Take 1 capsule by mouth twice daily fo r 90 days. - losartan (COZAAR) 50 mg tablet Take 1 tablet by mouth twice daily. - omeprazole (PRILOSEC) 40 mg capsule Take 1 capsule by mouth once daily. - promethazine (PHENERGAN) 6.25 mg/5 mL syrup Take 5-10 mL by mouth four times daily as needed for nausea/vomiting (and cough). - codeine-guaiFENesin (GUAIFENESIN AC) 10-100 mg/5 mL syrup Take 5-10 mL by mouth four times daily as needed for up to 7 days. - HYDROcodone-acetaminophen (NORCO) 5-3 25 mg per tablet Take 1 tablet by mouth every 12 hours as needed for pain (Severe pain) for up to 7 days. - amLODIPine (NORVASC) 2.5 mg tablet Take 1 tablet by mouth once daily. - ibuprofen (MOTRIN) 800 mg tablet Take 1 tablet by mouth every 8 hours a s needed for pain (back). Take with food - aspirin 81 mg chewable tablet Take 1 tablet by mouth once daily. - Food Supplement, Lactose-Free (ENSURE ACTIVE HIGH PROTEIN) liqd Take 237 mL by mouth once daily. - albuterol HFA (VENTOLIN HFA) 90 mcg/a ctuation inhaler Inhale 2 Puffs as instructed every 4 h ours as needed. -active - Ciclopirox (PENLAC) 8 % solution Apply to affected area once daily. TO AFFECTED AREA. - ketoconazole (NIZORAL) 2 % cream Apply 1 application to affected area o nce daily. To rash on legs and feet for 2 weeks at least and continue for 1 we ek after rash resolves. - nabumetone (RELAFEN) 500 mg tablet Take 1 tablet by mouth twice daily. - diclofenac sodium (VOLTAREN) 1 % topi philip gel Apply 2 grams to affected area four ti mes daily. - guaiFENesin (MUCINEX) 600 mg 12 hr ta blet Take 2 tablets by mouth twice daily as needed for Cold/Allergy Symptoms. - COMPOUNDED PRESCRIPTION Overnight pulse oximetry-- J42 Chronic bronchitis, R09.02hypoxemia - cholecalciferol (VITAMIN D3) 1,000 un it tab tablet Take 1 tablet by mouth once daily. - polyethylene glycol 3350 (MIRALAX, GL YCOLAX) 17 gram packet Take 1 Packet by mouth once daily. - thiamine (VITAMIN B1) 100 mg tablet Take 1 tablet by mouth three times irma ly. - albuterol (PROVENTIL) 2.5 mg /3 mL (0 .083 %) nebulizer solution Use 3 mL via nebulizer every 4 hours a s needed for Wheezing/Shortness of Breath. Use over 5-15minutes. - COMPOUNDED PRESCRIPTION Nebulizer for home use. Dx: chronic br onchitis Meds Comments as of 09/02/2018: 09/02/18 The medications are managed by this patient by: PATIENT Janell Awad [facility]ara Pharm-T Problem List As Of Date 12/05/2021 Not ed Resolved COLLES' FRACTURE-CLOSED [S52.539A] 09/28/2005 RADIAL STYLOID TENOSYNOV [M65.4] 06/2809/28/2005 FX LATERAL MALLEOLUS-CLOSE [S82.63XA] 11/08/2005 09/18/2007 Chronic bronchitis (HCC) [J42] 007 INSOMNIA, intermittent [G47.00] 2006 Tobacco use disorder [F17.200] 007 Acute sinusitis, unspecified [J01.90] 02/06/2008 06/13/2017 Reactive depression [F32.9] 02/06/2008 GENERALIZED ANXIETY DIS [F41.1] 2007 GLAUCOMA NOS [H40.9] 02/06/2008 ALLERGIC RHINITIS NOS [J30.9] 05/08/19 09 FAMILY HX GI MALIGNANCY [Z80.0] 2008 DYSPHAGIA NEC [R13.19] 08/25/2008 UNSP ABNORMAL MAMMOGRAM [R92.8] 2008 DUODENITIS W/O HEMORRHAGE [K29.80] ACUTE GASTRITIS W/O HEMORRHAGE [K29.0 0] 09/14/2008 Unspecified Disorder of Skin and Subcu taneous T*12/01/2008 Helicobacter Pylori 12/08/2008 Benign Neoplasm of Skin of Trunk, exce pt Scrotu*12/09/2008 Fracture of right distal radius [S52.5 01A] 07/24/2012 11/24/2014 Ankle fracture [S82.899A] 11/24/2014 Essential hypertension [I10] 02/28/20 17 Gastroesophageal reflux disease withou t esophag*10/20/2017 Compression fracture of T5 vertebra (H CC) [S22.*08/24/2018 Trauma [T14.90XA] 08/27/2018 Fall from ladder [W11.XXXA] 9 Closed fracture of multiple ribs of ri ght side *08/27/2018 Wheezing [R06.2] 08/27/2018 Hypoxia [R09.02] 08/27/2018 Back pain [M54.9] 09/2018 Incidental lung nodule, greater than or equal t*11/04/2019 COPD, severe (HCC) [J44.9] 11/04/2019 Tension pneumothorax [J93.0] 0 Chronic respiratory failure with hypo rupinder (HCC) *12/25/2019 Community acquired pneumonia of left l ower lobe*12/25/2019 Cervical spondylosis without myelopath y [M47.81*03/02/2020 05/27/2020 Lumbosacral spondylosis without myelo kelly [M47*03/02/2020 05/27/2020 Encounter Status:Closed by JOVANNI LOPEZ LPN on 12/15/21 PROGRESS Observed: 12/02/2021 12:23 Status: COMPLETED Rose rce: [facility] HNO ID: [id number] Author: Joaquim Rodarte, RADHA Service: ? Author Type: Registered Nurse Type: Progress Notes Filed: 12/02/2021 12:26 PM Note Text: [facility] CDM Enrollment Provider Action/FYI: Call to Pt, unable to leave a message related to Insight / Chronic Disease Management program, will provide [facility] info once reached. Patient referred by: [facility] Marisol Contact made with patient: No - Unable to leave message: (Keep encounter open and attempt 2nd outreach in two bu siness days from today). END OUTREACH Aster March RN December 02, 2021 12:23 PM CNPTOUTREACH Observed: 12/02/2021 12:00 Status: COMPLETED Rose rce: [facility] Patient Outreach ([facility]) DALIA MENDES ([id number]) 1955 F Date Time Provider Department 12/02/21 JOAQUIM RODARTE AMBDANNY During your visit today, we recorded t he following information about you: Aster March RN 12/02/2021 12:26 P M Signed [facility] CD Enrollment Provider Action/FYI: Call to Pt, unable to leave a message r elated to Insight / Chronic Disease Management program, will provide [facility] info once reached. Patient referred by: [facility] Marisol Contact made with patient: No - Unable to leave message: (Keep encounter open and attempt 2nd outreach in two ines from today). END OUTREACH Aster March RN December 02, 2021 12:23 PM Allergies As of Date: 12/02/2021 Noted Allergy Reaction WELLBUTRIN SR (BUPROPION) 05/08/2008 1 - Mental Status Change Comments: made me hallucinate Date Reviewed: 08/19/2021 Reviewed by: Racheal Lopez LPN - Fully Assessed Reason for Visit: Community Monitoring Outreach [Other] Cmt: Initial CDM Outreach/ [facility] Prescriptions as of 12/02/2021 - atorvastatin (LIPITOR) 10 mg tablet Take 1 tablet by mouth once daily. - amLODIPine (NORVASC) 2.5 mg tablet Take 1 tablet by mouth once daily. - citalopram (CELEXA) 20 mg tablet Take 1 tablet by mouth once daily. - losartan (COZAAR) 50 mg tablet Take 1 tablet by mouth twice daily. - omeprazole (PRILOSEC) 40 mg capsule Take 1 capsule by mouth once daily. - ibuprofen (MOTRIN) 800 mg tablet Take 1 tablet by mouth every 8 hours a s needed for pain (back). Take with food - gabapentin (NEURONTIN) 300 mg capsule Take 1 capsule by mouth twice daily fo r 90 days. - jftmupvweqi-alyxquoxx-qbrxgexz (TRELE GY ELLIPTA) 100-62.5-25 mcg inhalation powder Inhale 1 Puff as instructed once daily . - aspirin 81 mg chewable tablet Take 1 tablet by mouth once daily. - Food Supplement, Lactose-Free (ENSURE ACTIVE HIGH PROTEIN) liqd Take 237 mL by mouth once daily. - albuterol HFA (VENTOLIN HFA) 90 mcg/a ctuation inhaler Inhale 2 Puffs as instructed every 4 h ours as needed. -active - HYDROcodone-acetaminophen (NORCO) 5- 325 mg per tablet Take 1 tablet by mouth every 12 hours as needed for pain (Severe pain) for up to 7 days. - Ciclopirox (PENLAC) 8 % solution Apply to affected area once daily. TO AFFECTED AREA. - ketoconazole (NIZORAL) 2 % cream Apply 1 application to affected area o nce daily. To rash on legs and feet for 2 weeks at least and continue for 1 we ek after rash resolves. - promethazine (PHENERGAN) 6.25 mg/5 m L syrup Take 5-10 mL by mouth four times daily as needed for Nausea/Vomiting (and cough). - nabumetone (RELAFEN) 500 mg tablet Take 1 tablet by mouth twice daily. - diclofenac sodium (VOLTAREN) 1 % topi philip gel Apply 2 grams to affected area four ti mes daily. - PREDNISONE ORAL Take by mouth. See Taper instructions. - guaiFENesin (MUCINEX) 600 mg 12 hr ta blet Take 2 tablets by mouth twice daily as needed for Cold/Allergy Symptoms. - COMPOUNDED PRESCRIPTION Overnight pulse oximetry-- J42 Chronic bronchitis, R09.02hypoxemia - cholecalciferol (VITAMIN D3) 1,000 un it tab tablet Take 1 tablet by mouth once daily. - polyethylene glycol 3350 (MIRALAX, GL YCOLAX) 17 gram packet Take 1 Packet by mouth once daily. - thiamine (VITAMIN B1) 100 mg tablet Take 1 tablet by mouth three times irma ly. - albuterol (PROVENTIL) 2.5 mg /3 mL (0 .083 %) nebulizer solution Use 3 mL via nebulizer every 4 hours a s needed for Wheezing/Shortness of Breath. Use over 5-15minutes. - COMPOUNDED PRESCRIPTION Nebulizer for home use. Dx: chronic br onchitis Meds Comments as of 09/02/2018: 09/02/18 The medications are managed by this patient by: PATIENT Janell Kenneytrino Pharm-T Problem List As Of Date 12/02/2021 Note d Resolved COLLES' FRACTURE-CLOSED [S52.539A] 09/28/2005 RADIAL STYLOID TENOSYNOV [M65.4] 06/2809/28/2005 FX LATERAL MALLEOLUS-CLOSE [S82.63XA] 11/08/2005 09/18/2007 Chronic bronchitis (HCC) [J42] 007 INSOMNIA, intermittent [G47.00] 2006 Tobacco use disorder [F17.200] 007 Acute sinusitis, unspecified [J01.90] 02/06/2008 06/13/2017 Reactive depression [F32.9] 02/06/2008 GENERALIZED ANXIETY DIS [F41.1] 2007 GLAUCOMA NOS [H40.9] 02/06/2008 ALLERGIC RHINITIS NOS [J30.9] 05/08/19 09 FAMILY HX GI MALIGNANCY [Z80.0] 2008 DYSPHAGIA NEC [R13.19] 08/25/2008 UNSP ABNORMAL MAMMOGRAM [R92.8] 2008 DUODENITIS W/O HEMORRHAGE [K29.80] ACUTE GASTRITIS W/O HEMORRHAGE [K29.00 ] 09/14/2008 Unspecified Disorder of Skin and Subcu taneous T*12/01/2008 Helicobacter Pylori 12/08/2008 Benign Neoplasm of Skin of Trunk, exce pt Scrotu*12/09/2008 Fracture of right distal radius [S52.5 01A] 07/24/2012 11/24/2014 Ankle fracture [S82.899A] 11/24/2014 Essential hypertension [I10] 7 Gastroesophageal reflux disease withou t esophag*10/20/2017 Compression fracture of T5 vertebra (H CC) [S22.*08/24/2018 Trauma [T14.90XA] 08/27/2018 Fall from ladder [W11.XXXA] 08/27/2018 Closed fracture of multiple ribs of ri ght side *08/27/2018 Wheezing [R06.2] 08/27/2018 Hypoxia [R09.02] 08/27/2018 Back pain [M54.9] 09/2018 Incidental lung nodule, greater than o r equal t*11/04/2019 COPD, severe (HCC) [J44.9] 11/04/2019 Tension pneumothorax [J93.0] 0 Chronic respiratory failure with hypox ia (HCC) *12/25/2019 Community acquired pneumonia of left l ower lobe*12/25/2019 Cervical spondylosis without myelopath y [M47.81*03/02/2020 05/27/2020 Lumbosacral spondylosis without myelop athy [M47*03/02/2020 05/27/2020 Encounter Status:Closed by ALBA MARCH on 12/02/21 CNPN Observed: 11/25/2021 12:00 AM Status: COMPLETED Source: [facility] REPOSITOR Y Telephone (INTMWS) DALIA MENDES ([id number]) 1955 F Date Time Provider Department 11/25/21 SELWYN GARCIA INTMWS During your visit today, we recorded t he following information about you: Sugey Condon LPN 11/25/2021 9:48 AM S apolinar New from [facility] Steel Construction Worker calling ask ing if any paper work patient needs to take to Dr Bentley-Funeral Director And Embalmer? Did not see anything in computer. Patient has appt scheduled today with Pulmonary off ice to update her HANDP for biopsy lung mass. Hoping patient does keep that kory t. Virgen works parts processor and gave her manager of case management, Delmy phone number is [phone] if needed. Aware patient had cancelled her appt mid October with Lacy Manzanares CABLE RESPOOLER. Sugey Condon LPN 11/25/2021 4:16 PM S igned Virgen calling back patient did go to ap pt with Mihaela Irene NP Pulmonary today was 15 minutes late to the appt. Patient is scheduled to have biopsy done 12/05/2021. Virgen was able to speak to p atient grand daughter Mikala Carrera, she tries to help with getting her to a ppts and go over her after visit information. Virgen said patient is very frail and cough is not good sounding. Virgen is asking if PCP would be alright with a palliative Care referral for patient COPD? Can leave a message for Brody eraoz on her voicemail, she can always get it from education teacher if PCP does n ot want to do it. Virgen is faxing copy of [employer] [place] [facility] to the office al so. She had given me grand daughter Mikala phone number is [phone]. She thinks patient is having memory issues and may not show for her appt wi th PCP, she did not think grand daughter knew of the appt. Selwyn Garcia MD 11/25/2021 8:25 PM Si gned I can file consult order for palliative care for COPD but would be ideal if made it into appointment with me.. Can see if needs help with remembering appointments or transportation. She has missed several appointments the past ye ar. Seen last November and this July and missed other appointments since last sa w me October 2020. Ami Martin RN 11/29/2021 11:24 AM S igned Delmy [facility] EL[facility]ERT called and is notified of naren parks message and instructions. She voices understanding and was given Pts next appointment time of 12/13/21 at 940 am. She reports she will tell Pts grand daughter to see if she can help get Pt to this appointment. RADHA Fitzgerald MD 11/29/2021 12:46 PM S igned Noted. Selwyn Garcia MD Allergies As of Date: 11/25/2021 Noted Allergy Reaction WELLBUTRIN SR (BUPROPION) 05/08/2008 1 - Mental Status Change Comments: made me hallucinate Date Reviewed: 08/19/2021 Reviewed by: Racheal Lopez LPN - Fully Assessed Reason for Visit: Patient Update [1234] Patient Question [[id number]] Prescriptions as of 11/29/2021 - atorvastatin (LIPITOR) 10 mg tablet Take 1 tablet by mouth once daily. - amLODIPine (NORVASC) 2.5 mg tablet Take 1 tablet by mouth once daily. - citalopram (CELEXA) 20 mg tablet Take 1 tablet by mouth once daily. - losartan (COZAAR) 50 mg tablet Take 1 tablet by mouth twice daily. - omeprazole (PRILOSEC) 40 mg capsule Take 1 capsule by mouth once daily. - ibuprofen (MOTRIN) 800 mg tablet Take 1 tablet by mouth every 8 hours a s needed for pain (back). Take with food - gabapentin (NEURONTIN) 300 mg capsul e Take 1 capsule by mouth twice daily fo r 90 days. - kngshkkzvdz-odnmnflnn-acwjvrcg (TRELE GY ELLIPTA) 100-62.5-25 mcg inhalation powder Inhale 1 Puff as instructed once daily . - aspirin 81 mg chewable tablet Take 1 tablet by mouth once daily. - Food Supplement, Lactose-Free (ENSUR E ACTIVE HIGH PROTEIN) liqd Take 237 mL by mouth once daily. - albuterol HFA (VENTOLIN HFA) 90 mcg/a ctuation inhaler Inhale 2 Puffs as instructed every 4 h ours as needed. -active - HYDROcodone-acetaminophen (NORCO) 5-3 25 mg per tablet Take 1 tablet by mouth every 12 hours as needed for pain (Severe pain) for up to 7 days. - Ciclopirox (PENLAC) 8 % solution Apply to affected area once daily. TO AFFECTED AREA. - ketoconazole (NIZORAL) 2 % cream Apply 1 application to affected area o nce daily. To rash on legs and feet for 2 weeks at least and continue for 1 we ek after rash resolves. - promethazine (PHENERGAN) 6.25 mg/5 mL syrup Take 5-10 mL by mouth four times daily as needed for Nausea/Vomiting (and cough). - nabumetone (RELAFEN) 500 mg tablet Take 1 tablet by mouth twice daily. - diclofenac sodium (VOLTAREN) 1 % topi philip gel Apply 2 grams to affected area four ti mes daily. - PREDNISONE ORAL Take by mouth. See Taper instructions . - guaiFENesin (MUCINEX) 600 mg 12 hr ta blet Take 2 tablets by mouth twice daily as needed for Cold/Allergy Symptoms. - COMPOUNDED PRESCRIPTION Overnight pulse oximetry-- J42 Chronic bronchitis, R09.02hypoxemia - cholecalciferol (VITAMIN D3) 1,000 un it tab tablet Take 1 tablet by mouth once daily. - polyethylene glycol 3350 (MIRALAX, GL YCOLAX) 17 gram packet Take 1 Packet by mouth once daily. - thiamine (VITAMIN B1) 100 mg tablet Take 1 tablet by mouth three times da nicholas. - albuterol (PROVENTIL) 2.5 mg /3 mL (0 .083 %) nebulizer solution Use 3 mL via nebulizer every 4 hours a s needed for Wheezing/Shortness of Breath. Use over 5-15minutes. - COMPOUNDED PRESCRIPTION Nebulizer for home use. Dx: [facility] Med[facility] Comments as of 09/02/2018: 09/02/18 The medications are managed by this patient by: PATIENT Janell Menjivar Pharm-T Problem List As Of Date 11/25/2021 Not ed Resolved COLLES' FRACTURE-CLOSED [S52.539A] 09/28/2005 RADIAL STYLOID TENOSYNOV [M65.4] 06/2809/28/2005 FX LATERAL MALLEOLUS-CLOSE [S82.63XA] 11/08/2005 09/18/2007 Chronic bronchitis (HCC) [J42] 007 INSOMNIA, intermittent [G47.00] 2006 Tobacco use disorder [F17.200] 007 Acute sinusitis, unspecified [J01.90] 02/06/2008 06/13/2017 Reactive depression [F32.9] 02/06/2008 GENERALIZED ANXIETY DIS [F41.1] 02/05 GLAUCOMA NOS [H40.9] 02/06/2008 ALLERGIC RHINITIS NOS [J30.9] 05/08/19 09 FAMILY HX GI MALIGNANCY [Z80.0] 08/25 DYSPHAGIA NEC [R13.19] 08/25/2008 UNSP ABNORMAL MAMMOGRAM [R92.8] 2008 DUODENITIS W/O HEMORRHAGE [K29.80] ACUTE GASTRITIS W/O HEMORRHAGE [K29.00 ] 09/14/2008 Unspecified Disorder of Skin and Subcu taneous T*12/01/2008 Helicobacter Pylori 12/08/2008 Benign Neoplasm of Skin of Trunk, exce pt Scrotu*12/09/2008 Fracture of right distal radius [S52.5 01A] 07/24/2012 11/24/2014 Ankle fracture [S82.899A] 11/24/2014 Essential hypertension [I10] 02/28/20 17 Gastroesophageal reflux disease withou t esophag*10/20/2017 Compression fracture of T5 vertebra ( HCC) [S22.*08/24/2018 Trauma [T14.90XA] 08/27/2018 Fall from ladder [W11.XXXA] 08/27/2018 Closed fracture of multiple ribs of r ight side *08/27/2018 Wheezing [R06.2] 08/27/2018 Hypoxia [R09.02] 08/27/2018 Back pain [M54.9] 09/2018 Incidental lung nodule, greater than o r equal t*11/04/2019 COPD, severe (HCC) [J44.9] 11/04/2019 Tension pneumothorax [J93.0] 11/04/19 20 Chronic respiratory failure with hypox ia (HCC) *12/25/2019 Community acquired pneumonia of left l ower lobe*12/25/2019 Cervical spondylosis without myelopat hy [M47.81*03/02/2020 05/27/2020 Lumbosacral spondylosis without myelop athy [M47*03/02/2020 05/27/2020 Encounter Status:Closed by ANUSHA GARCIA on 11/29/21 PROGRESS Observed: 11/23/2021 2:04 PM Status: COMPLETED S ource: [facility] HNO ID: [id number] Author: Joaquim Rodarte RN Service: ? Author Type: Registered Nurse Type: Progress Notes Filed: 12/02/2021 12:20 PM Note Text: [facility] CDM Enrollment Provider Action/FYI: Call to Pt, unable to leave a message r elated to [facility] / Chronic Disease Management program, will provide [facility] info once reached. Patient referred by: [facility] Marisol Contact made with patient: No - Unable to leave message: (Keep encounter open and attempt 2nd outreach in two sine days from today). END OUTREACH Aster March RN November 23, 2021 2:04 PM CNPTOUTREACH Observed: 11/23/2021 12:00 Status: COMPLETED Rose rce: [facility] Patient Outreach ([facility]) DALIA MENDES ([id number]) 1955 F Date Time Provider Department 11/23/21 JOAQUIM RODARTE [facility] During your visit today, we recorded t he following information about you: Aster March RN 12/02/2021 12:20 PM Signed [facility] CDM Enrollment Provider Action/FYI: Call to Pt, unable to leave a message r elated to [facility] / Chronic Disease Management program, will provide [facility] info once reached. Patient referred by: [facility] Marisol Contact made with patient: No - Unable to leave message: (Keep encounter open and attempt 2nd outreach in two from today). END OUTREACH Aster March RN November 23, 2021 2:04 PM Allergies As of Date: 11/23/2021 Noted Allergy Reaction WELLBUTRIN SR (BUPROPION) 05/08/2008 1 - Mental Status Change Comments: made me hallucinate Date Reviewed: 08/19/2021 Reviewed by: Racheal Lopez LPN - Fully Assessed Reason for Visit: Community Monitoring Outreach [Other] Cmt: Initial CDM Outreach/ [facility] Primary Visit Diagnosis:Chronic obstruc tive pulmonary disease, unspecified COPD type ([facility]) [J44.9] Order(s):CONSULT TO PRIMARY CARE [facility] [[id number]] Order #: [id number]: 1 Prescriptions as of 12/02/2021 - atorvastatin (LIPITOR) 10 mg tablet Take 1 tablet by mouth once daily. - amLODIPine (NORVASC) 2.5 mg tablet Take 1 tablet by mouth once daily. - citalopram (CELEXA) 20 mg tablet Take 1 tablet by mouth once daily. - losartan (COZAAR) 50 mg tablet Take 1 tablet by mouth twice daily. - omeprazole (PRILOSEC) 40 mg capsule Take 1 capsule by mouth once daily. - ibuprofen (MOTRIN) 800 mg tablet Take 1 tablet by mouth every 8 hours a s needed for pain (back). Take with food - gabapentin (NEURONTIN) 300 mg capsule Take 1 capsule by mouth twice daily fo r 90 days. - wfljgbrcedd-rakdkvxll-uatkhpeu (TRELE GY ELLIPTA) 100-62.5-25 mcg inhalation powder Inhale 1 Puff as instructed once meaghan y. - aspirin 81 mg chewable tablet Take 1 tablet by mouth once daily. - Food Supplement, Lactose-Free (ENSURE ACTIVE HIGH PROTEIN) liqd Take 237 mL by mouth once daily. - albuterol HFA (VENTOLIN HFA) 90 mcg/a ctuation inhaler Inhale 2 Puffs as instructed every 4 h ours as needed. -active - HYDROcodone-acetaminophen (NORCO) 5-3 25 mg per tablet Take 1 tablet by mouth every 12 hours as needed for pain (Severe pain) for up to 7 days. - Ciclopirox (PENLAC) 8 % solution Apply to affected area once daily. TO AFFECTED AREA. - ketoconazole (NIZORAL) 2 % cream Apply 1 application to affected area o nce daily. To rash on legs and feet for 2 weeks at least and continue for 1 we ek after rash resolves. - promethazine (PHENERGAN) 6.25 mg/5 mL syrup Take 5-10 mL by mouth four times daily as needed for Nausea/Vomiting (and cough). - nabumetone (RELAFEN) 500 mg tablet Take 1 tablet by mouth twice daily. - diclofenac sodium (VOLTAREN) 1 % top ical gel Apply 2 grams to affected area four ti mes daily. - PREDNISONE ORAL Take by mouth. See Taper instructions. - guaiFENesin (MUCINEX) 600 mg 12 hr ta blet Take 2 tablets by mouth twice daily as needed for Cold/Allergy Symptoms. - COMPOUNDED PRESCRIPTION Overnight pulse oximetry-- J42 Chroni c bronchitis, R09.02hypoxemia - cholecalciferol (VITAMIN D3) 1,000 un it tab tablet Take 1 tablet by mouth once daily. - polyethylene glycol 3350 (MIRALAX, GL YCOLAX) 17 gram packet Take 1 Packet by mouth once daily. - thiamine (VITAMIN B1) 100 mg tablet Take 1 tablet by mouth three times irma ly. - albuterol (PROVENTIL) 2.5 mg /3 mL (0 .083 %) nebulizer solution Use 3 mL via nebulizer every 4 hours a s needed for Wheezing/Shortness of Breath. Use over 5-15minutes. - COMPOUNDED PRESCRIPTION Nebulizer for home use. Dx: chronic br onchitis Meds Comments as of 09/02/2018: 09/02/18 The medications are managed by this patient by: PATIENT Janell Menjivar Pharm-T Problem List As Of Date 11/23/2021 Note d Resolved COLLES' FRACTURE-CLOSED [S52.539A] 09/28/2005 RADIAL STYLOID TENOSYNOV [M65.4] 06/2809/28/2005 FX LATERAL MALLEOLUS-CLOSE [S82.63XA] 11/08/2005 09/18/2007 Chronic bronchitis (HCC) [J42] 007 INSOMNIA, intermittent [G47.00] 2006 Tobacco use disorder [F17.200] 007 Acute sinusitis, unspecified [J01.90] 02/06/2008 06/13/2017 Reactive depression [F32.9] 8 GENERALIZED ANXIETY DIS [F41.1] 2007 GLAUCOMA NOS [H40.9] 02/06/2008 ALLERGIC RHINITIS NOS [J30.9] 009 FAMILY HX GI MALIGNANCY [Z80.0] 2008 DYSPHAGIA NEC [R13.19] 08/25/2008 UNSP ABNORMAL MAMMOGRAM [R92.8] 08/29 DUODENITIS W/O HEMORRHAGE [K29.80] ACUTE GASTRITIS W/O HEMORRHAGE [K29.00 ] 09/14/2008 Unspecified Disorder of Skin and Subcu taneous T*12/01/2008 Helicobacter Pylori 12/08/2008 Benign Neoplasm of Skin of Trunk, exce pt Scrotu*12/09/2008 Fracture of right distal radius [S52.5 01A] 07/24/2012 11/24/2014 Ankle fracture [S82.899A] 11/24/2014 Essential hypertension [I10] 7 Gastroesophageal reflux disease witho ut esophag*10/20/2017 Compression fracture of T5 vertebra (H CC) [S22.*08/24/2018 Trauma [T14.90XA] 08/27/2018 Fall from ladder [W11.XXXA] 9 Closed fracture of multiple ribs of ri ght side *08/27/2018 Wheezing [R06.2] 08/27/2018 Hypoxia [R09.02] 08/27/2018 Back pain [M54.9] 09/2018 Incidental lung nodule, greater than o r equal t*11/04/2019 COPD, severe (HCC) [J44.9] 11/04/2019 Tension pneumothorax [J93.0] 0 Chronic respiratory failure with hypox ia (HCC) *12/25/2019 Community acquired pneumonia of left lower lobe*12/25/2019 Cervical spondylosis without myelopath y [M47.81*03/02/2020 05/27/2020 Lumbosacral spondylosis without myelop athy [M47*03/02/2020 05/27/2020 Encounter Status:Closed by ALBA MARCH on 12/02/21 VIOLA Observed: 11/07/2021 12:00 AM Status: COMPLETED Source: [facility] REPOSITOR Y Telephone ([facility]) DALIA MENDES ([id number]) 1955 F Date Time Provider Department 11/07/21 SELWYN GARCIA INTM[facility] During your visit today, we recorded t he following information about you: Cristine Escalante RN 11/07/2021 2:22 PM Dot zimmermanjesús Calle[place] - [facility] - phoned to see if manan worthington has seen pcp recently- they were hoping they could get an H AND P, to do lung biopsy tomorrow, for lung mass. Reports patient was scheduled for this 2 weeks ago, but no showed. The 2nd time [facility] scheduled patient, patient was instructed to be NPO, then drank a big coffee in the morning, so they had to c ancel. Re-scheduled biopsy for tomorrow, and patient was scheduled wit h Pulmonary today for an H AND P, but patient no showed for that appt today. Now they are going to cancel the biopsy for tomorrow (since last ov in pcp offi ce 08-19-21) until patient sees Pulmonary. Rajani Alicea LPN 11/08/2021 4:03 PM Sig elio Called [facility] radiology dept. They will be doing pts biopsy. They need an update HANDP. Pt missed several HANDP appts with Dr. Bentley the education teacher with [facility]. Called pt to review the HANDP should be completed with Dr. Bentley. Pt will contact his office to arrange. Selwyn Garcia MD 11/10/2021 3:59 PM S igned Noted. Sewlyn Garcia MD Allergies As of Date: 11/07/2021 Noted Allergy Reaction WELLBUTRIN SR (BUPROPION) 05/08/2008 1 - Mental Status Change Comments: made me hallucinate Date Reviewed: 08/19/2021 Reviewed by: Racheal Lopez LPN - Fully Assessed Reason for Visit: Patient Update [1234] Prescriptions as of 11/10/2021 - atorvastatin (LIPITOR) 10 mg tablet Take 1 tablet by mouth once daily. - amLODIPine (NORVASC) 2.5 mg tablet Take 1 tablet by mouth once daily. - citalopram (CELEXA) 20 mg tablet Take 1 tablet by mouth once daily. - losartan (COZAAR) 50 mg tablet Take 1 tablet by mouth twice daily. - omeprazole (PRILOSEC) 40 mg capsule Take 1 capsule by mouth once daily. - ibuprofen (MOTRIN) 800 mg tablet Take 1 tablet by mouth every 8 hours a s needed for pain (back). Take with food - gabapentin (NEURONTIN) 300 mg capsule Take 1 capsule by mouth twice daily fo r 90 days. - egqwckjkvhs-lluqbehsi-fbzpbkel (TRELE GY ELLIPTA) 100-62.5-25 mcg inhalation powder Inhale 1 Puff as instructed once daily . - aspirin 81 mg chewable tablet Take 1 tablet by mouth once daily. - Food Supplement, Lactose-Free (ENSURE ACTIVE HIGH PROTEIN) liqd Take 237 mL by mouth once daily. - albuterol HFA (VENTOLIN HFA) 90 mcg/a ctuation inhaler Inhale 2 Puffs as instructed every 4 h ours as needed. -active - HYDROcodone-acetaminophen (NORCO) 5-3 25 mg per tablet Take 1 tablet by mouth every 12 hours as needed for pain (Severe pain) for up to 7 days. - Ciclopirox (PENLAC) 8 % solution Apply to affected area once daily. TO AFFECTED AREA. - ketoconazole (NIZORAL) 2 % cream Apply 1 application to affected area o nce daily. To rash on legs and feet for 2 weeks at least and continue for 1 w [place] after rash resolves. - promethazine (PHENERGAN) 6.25 mg/5 mL syrup Take 5-10 mL by mouth four times daily as needed for Nausea/Vomiting (and cough). - nabumetone (RELAFEN) 500 mg tablet Take 1 tablet by mouth twice daily. - diclofenac sodium (VOLTAREN) 1 % topi philip gel Apply 2 grams to affected area four ti mes daily. - PREDNISONE ORAL Take by mouth. See Taper instructions. - guaiFENesin (MUCINEX) 600 mg 12 hr ta blet Take 2 tablets by mouth twice daily as needed for Cold/Allergy Symptoms. - COMPOUNDED PRESCRIPTION Overnight pulse oximetry-- J42 Chronic bronchitis, R09.02hypoxemia - cholecalciferol (VITAMIN D3) 1,000 un it tab tablet Take 1 tablet by mouth once daily. - polyethylene glycol 3350 (MIRALAX, GL YCOLAX) 17 gram packet Take 1 Packet by mouth once daily. - thiamine (VITAMIN B1) 100 mg tablet Take 1 tablet by mouth three times irma ly. - albuterol (PROVENTIL) 2.5 mg /3 mL (0 .083 %) nebulizer solution Use 3 mL via nebulizer every 4 hours a s needed for Wheezing/Shortness of Breath. Use over 5-15minutes. - COMPOUNDED PRESCRIPTION Nebulizer for home use. Dx: chronic br onchitis Meds Comments as of 09/02/2018: 09/02/18 The medications are managed by this patient by: PATIENT Janell Awad Tiara Pharm-T Problem List As Of Date 11/07/2021 Note d Resolved COLLES' FRACTURE-CLOSED [S52.539A] 09/28/2005 RADIAL STYLOID TENOSYNOV [M65.4] 06/2809/28/2005 FX LATERAL MALLEOLUS-CLOSE [S82.63XA] 11/08/2005 09/18/2007 Chronic bronchitis (HCC) [J42] 007 INSOMNIA, intermittent [G47.00] 2006 Tobacco use disorder [F17.200] 007 Acute sinusitis, unspecified [J01.90] 02/06/2008 06/13/2017 Reactive depression [F32.9] 02/06/2008 GENERALIZED ANXIETY DIS [F41.1] 2007 GLAUCOMA NOS [H40.9] 02/06/2008 ALLERGIC RHINITIS NOS [J30.9] 05/08/19 09 FAMILY HX GI MALIGNANCY [Z80.0] 2008 DYSPHAGIA NEC [R13.19] 08/25/2008 UNSP ABNORMAL MAMMOGRAM [R92.8] 2008 DUODENITIS W/O HEMORRHAGE [K29.80] ACUTE GASTRITIS W/O HEMORRHAGE [K29.00 ] 09/14/2008 Unspecified Disorder of Skin and Subcu taneous T*12/01/2008 Helicobacter Pylori 12/08/2008 Benign Neoplasm of Skin of Trunk, exce pt Scrotu*12/09/2008 Fracture of right distal radius [S52.5 01A] 07/24/2012 11/24/2014 Ankle fracture [S82.899A] 11/24/2014 Essential hypertension [I10] 02/28/20 17 Gastroesophageal reflux disease withou t esophag*10/20/2017 Compression fracture of T5 vertebra (H CC) [S22.*08/24/2018 Trauma [T14.90XA] 08/27/2018 Fall from ladder [W11.XXXA] 08/27/2018 Closed fracture of multiple ribs of ri ght side *08/27/2018 Wheezing [R06.2] 08/27/2018 Hypoxia [R09.02] 08/27/2018 Back pain [M54.9] 09/2018 Incidental lung nodule, greater than o r equal t*11/04/2019 COPD, severe (HCC) [J44.9] 11/04/2019 Tension pneumothorax [J93.0] 0 Chronic respiratory failure with hypox ia (HCC) *12/25/2019 Community acquired pneumonia of left l ower lobe*12/25/2019 Cervical spondylosis without myelopath y [M47.81*03/02/2020 05/27/2020 Lumbosacral spondylosis without myelop athy [M47*03/02/2020 05/27/2020 Encounter Status:Closed by ANUSHA GARCIA on 11/10/21 CNPTOUTREACH Observed: 11/02/2021 12:00 Status: COMPLETED Rose rce: [facility] Patient Outreach ([facility]) DALIA MENDES ([id number]) 1955 F Date Time Provider Department 11/02/21 SELWYN GARCIA [facility] During your visit today, we recorded t he following information about you: Allergies As of Date: 11/02/2021 Noted Allergy Reaction WELLBUTRIN SR (BUPROPION) 05/08/2008 1 - Mental Status Change Comments: made me hallucinate Date Reviewed: 08/19/2021 Reviewed by: Racheal Lopez LPN - Fully Assessed Visit Diagnosis:Encounter for screening mammogram for breast cancer [Z12.31] Order(s):[facility] SCREEN[facility] [[id number]] Order #: [id number] FUTURE Prescriptions as of 11/07/2021 - atorvastatin (LIPITOR) 10 mg tablet Take 1 tablet by mouth once daily. - amLODIPine (NORVASC) 2.5 mg tablet Take 1 tablet by mouth once daily. - citalopram (CELEXA) 20 mg tablet Take 1 tablet by mouth once daily. - losartan (COZAAR) 50 mg tablet Take 1 tablet by mouth twice daily. - omeprazole (PRILOSEC) 40 mg capsule Take 1 capsule by mouth once daily. - ibuprofen (MOTRIN) 800 mg tablet Take 1 tablet by mouth every 8 hours a s needed for pain (back). Take with food - gabapentin (NEURONTIN) 300 mg capsule Take 1 capsule by mouth twice daily fo r 90 days. - mgdxjbcnfhd-rluhjgeic-xffipuvu (TRELE GY ELLIPTA) 100-62.5-25 mcg inhalation powder Inhale 1 Puff as instructed once daily . - aspirin 81 mg chewable tablet Take 1 tablet by mouth once daily. - Food Supplement, Lactose-Free (ENSURE ACTIVE HIGH PROTEIN) liqd Take 237 mL by mouth once daily. - albuterol HFA (VENTOLIN HFA) 90 mcg/a ctuation inhaler Inhale 2 Puffs as instructed every 4 h ours as needed. -active - HYDROcodone-acetaminophen (NORCO) 5-3 25 mg per tablet Take 1 tablet by mouth every 12 hours as needed for pain (Severe pain) for up to 7 days. - Ciclopirox (PENLAC) 8 % solution Apply to affected area once daily. TO AFFECTED AREA. - ketoconazole (NIZORAL) 2 % cream Apply 1 application to affected area o nce daily. To rash on legs and feet for 2 weeks at least and continue for 1 we ek after rash resolves. - promethazine (PHENERGAN) 6.25 mg/5 mL syrup Take 5-10 mL by mouth four times daily as needed for Nausea/Vomiting (and cough). - nabumetone (RELAFEN) 500 mg tablet Take 1 tablet by mouth twice daily. - diclofenac sodium (VOLTAREN) 1 % topi philip gel Apply 2 grams to affected area four ti mes daily. - PREDNISONE ORAL Take by mouth. See Taper instructions. - guaiFENesin (MUCINEX) 600 mg 12 hr ta blet Take 2 tablets by mouth twice daily as needed for Cold/Allergy Symptoms. - COMPOUNDED PRESCRIPTION Overnight pulse oximetry-- J42 Chronic bronchitis, R09.02hypoxemia - cholecalciferol (VITAMIN D3) 1,000 un it tab tablet Take 1 tablet by mouth once daily. - polyethylene glycol 3350 (MIRALAX, GL YCOLAX) 17 gram packet Take 1 Packet by mouth once daily. - thiamine (VITAMIN B1) 100 mg tablet Take 1 tablet by mouth three times irma ly. - albuterol (PROVENTIL) 2.5 mg /3 mL (0 .083 %) nebulizer solution Use 3 mL via nebulizer every 4 hours a s needed for Wheezing/Shortness of Breath. Use over 5-15minutes. - COMPOUNDED PRESCRIPTION Nebulizer for home use. Dx: chronic br onchitis Meds Comments as of 09/02/2018: 09/02/18 The medications are managed by this patient by: PATIENT Janell Menjivar Pharm-T Problem List As Of Date 11/02/2021 Note d Resolved COLLES' FRACTURE-CLOSED [S52.539A] 09/28/2005 RADIAL STYLOID TENOSYNOV [M65.4] 06/2809/28/2005 FX LATERAL MALLEOLUS-CLOSE [S82.63XA] 11/08/2005 09/18/2007 Chronic bronchitis (HCC) [J42] 007 INSOMNIA, intermittent [G47.00] 2006 Tobacco use disorder [F17.200] 007 Acute sinusitis, unspecified [J01.90] 02/06/2008 06/13/2017 Reactive depression [F32.9] 02/06/2008 GENERALIZED ANXIETY DIS [F41.1] 2007 GLAUCOMA NOS [H40.9] 02/06/2008 ALLERGIC RHINITIS NOS [J30.9] 05/08/19 09 FAMILY HX GI MALIGNANCY [Z80.0] 2008 DYSPHAGIA NEC [R13.19] 08/25/2008 UNSP ABNORMAL MAMMOGRAM [R92.8] 2008 DUODENITIS W/O HEMORRHAGE [K29.80] ACUTE GASTRITIS W/O HEMORRHAGE [K29.00 ] 09/14/2008 Unspecified Disorder of Skin and Subcu taneous T*12/01/2008 Helicobacter Pylori 12/08/2008 Benign Neoplasm of Skin of Trunk, exce pt Scrotu*12/09/2008 Fracture of right distal radius [S52.5 01A] 07/24/2012 11/24/2014 Ankle fracture [S82.899A] 11/24/2014 Essential hypertension [I10] 7 Gastroesophageal reflux disease withou t esophag*10/20/2017 Compression fracture of T5 vertebra (H CC) [S22.*08/24/2018 Trauma [T14.90XA] 08/27/2018 Fall from ladder [W11.XXXA] 08/27/2018 Closed fracture of multiple ribs of ri ght side *08/27/2018 Wheezing [R06.2] 08/27/2018 Hypoxia [R09.02] 08/27/2018 Back pain [M54.9] 09/2018 Incidental lung nodule, greater than or equal t*11/04/2019 COPD, severe (HCC) [J44.9] 11/04/2019 Tension pneumothorax [J93.0] 0 Chronic respiratory failure with hypox ia (HCC) *12/25/2019 Community acquired pneumonia of left l ower lobe*12/25/2019 Cervical spondylosis without myelopath y [M47.81*03/02/2020 05/27/2020 Lumbosacral spondylosis without myelop athy [M47*03/02/2020 05/27/2020 Encounter Status:Closed by [facility] on 11/07/21 CNPN Observed: 09/01/2021 12:00 AM Status: COMPLETED Source: [facility] REPOSITOR Y Telephone (INTMWS) DALIA MENDES ([id number]) 1955 F Date Time Provider Department 09/01/21 LACY MANZANARES During your visit today, we recorded t he following information about you: Lacyfatoumata Manzanares APRN.MANAGER OF CORPORATE 09/01/2021 4:49 PM Signed Please let he know recent labwork was i n acceptable range overall. Vitamin B12 is elevated, if taking supplemental may want to cut back on her dose. Component Latest Ref Rng AND Units 2021 WBC 3.70 - 11.00 k/uL 5.81 RBC 3.90 - 5.20 m/uL 4.24 Hemoglobin 11.5 - 15.5 g/dL 12.9 Hematocrit 36.0 - 46.0 % 39.4 MCV 80.0 - 100.0 fL 92.9 MCH 26.0 - 34.0 pg 30.4 MCHC 30.5 - 36.0 g/dL 32.7 RDW-CV 11.5 - 15.0 % 13.2 Platelet Count 150 - 400 k/uL 390 MPV 9.0 - 12.7 fL 10.1 Neut% % 61.1 Abs Neut (ANC) 1.45 - 7.50 k/uL 3.55 Lymph% % 21.5 Abs Lymph 1.00 - 4.00 k/uL 1.25 Hoke% % 13.3 Abs Hoke <0.87 k/uL 0.77 Eosin% % 3.1 Abs Eosin <0.46 k/uL 0.18 Baso% % 0.7 Abs Baso <0.11 k/uL 0.04 Immature Gran % % 0.3 IMMATURE GRANS (ABS) <0.10 k/uL <0.03 NRBC /100 WBC 0.0 Absolute nRBC <0.01 k/uL <0.01 DTYPE Auto Protein, Total 6.3 - 8.0 g/dL 6.9 Albumin 3.9 - 4.9 g/dL 4.3 Calcium 8.5 - 10.2 mg/dL 9.0 Bilirubin, Total 0.2 - 1.3 mg/dL 0.7 Alkaline Phosphatase 34 - 123 U/L 61 AST 13 - 35 U/L 17 ALT 7 - 38 U/L 12 Glucose 74 - 99 mg/dL 97 BUN 7 - 21 mg/dL 16 Creatinine 0.58 - 0.96 mg/dL 0.54 (L) Sodium 136 - 144 mmol/L 133 (L) Potassium 3.7 - 5.1 mmol/L 4.0 Chloride 97 - 105 mmol/L 96 (L) CO2 22 - 30 mmol/L 26 Anion Gap 9 - 18 mmol/L 11 eGFR >=60 mL/min/1.73m? 100 Total Cholesterol, Nonfasting <200 mg/d L 159 Triglycerides, Nonfasting <150 mg/dL 5 1 HDL Cholesterol, Nonfasting >39 mg/dL 6 6 LDL Cholesterol, Nonfasting <100 mg/dL 83 Non HDL Cholesterol, Nonfasting <130 mg /dL 93 VLDL Cholesterol, Nonfasting <30 mg/dL 10 Total Chol/HDL Ratio, Nonfasting <5.10 mg/dL 2.41 LDL/HDL Ratio, Nonfasting <2.54 mg/dL 1 .26 Vitamin B12 232-1,245 pg/mL >2,000 (H) Magnesium 1.7 - 2.3 mg/dL 1.9 TSH 0.270 - 4.200 mIU/L 1.210 Racheal Lopez LPN 09/02/2021 9:14 AM Sig elio No answer. No voice mailbox. Lacy Manzanares APRN.CNS 09/02/2021 4:28 P M Signed Okay to send letter with information. Lacy Manzanares APRN.CNS 09/02/2021 4:28 PM Signed letter printed Kaylyn Wallace Ma 09/06/2021 9:50 AM Signed Mailed Allergies As of Date: 09/01/2021 Noted Allergy Reaction WELLBUTRIN SR (BUPROPION) 05/08/2008 1 - Mental Status Change Comments: made me hallucinate Date Reviewed: 08/19/2021 Reviewed by: Racheal Lopez LPN - Fully Assessed Reason for Visit: Results, Lab [1201] Prescriptions as of 09/06/2021 - atorvastatin (LIPITOR) 10 mg tablet Take 1 tablet by mouth once daily. - amLODIPine (NORVASC) 2.5 mg tablet Take 1 tablet by mouth once daily. - citalopram (CELEXA) 20 mg tablet Take 1 tablet by mouth once daily. - losartan (COZAAR) 50 mg tablet Take 1 tablet by mouth twice daily. - omeprazole (PRILOSEC) 40 mg capsule Take 1 capsule by mouth once daily. - ibuprofen (MOTRIN) 800 mg tablet Take 1 tablet by mouth every 8 hours a s needed for pain (back). Take with food - gabapentin (NEURONTIN) 300 mg capsule Take 1 capsule by mouth twice daily fo r 90 days. - lrnzyudjxyy-dauxbsdmb-oztbrfed (TRELE GY ELLIPTA) 100-62.5-25 mcg inhalation powder Inhale 1 Puff as instructed once daily . - aspirin 81 mg chewable tablet Take 1 tablet by mouth once daily. - Food Supplement, Lactose-Free (ENSURE ACTIVE HIGH PROTEIN) liqd Take 237 mL by mouth once daily. - albuterol HFA (VENTOLIN HFA) 90 mcg/a ctuation inhaler Inhale 2 Puffs as instructed every 4 h ours as needed. -active - HYDROcodone-acetaminophen (NORCO) 5-3 25 mg per tablet Take 1 tablet by mouth every 12 hours as needed for pain (Severe pain) for up to 7 days. - Ciclopirox (PENLAC) 8 % solution Apply to affected area once daily. TO AFFECTED AREA. - ketoconazole (NIZORAL) 2 % cream Apply 1 application to affected area o nce daily. To rash on legs and feet for 2 weeks at least and continue for 1 w [place] after rash resolves. - promethazine (PHENERGAN) 6.25 mg/5 mL syrup Take 5-10 mL by mouth four times daily as needed for Nausea/Vomiting (and cough). - nabumetone (RELAFEN) 500 mg tablet Take 1 tablet by mouth twice daily. - diclofenac sodium (VOLTAREN) 1 % topi philip gel Apply 2 grams to affected area four ti mes daily. - PREDNISONE ORAL Take by mouth. See Taper instructions. - guaiFENesin (MUCINEX) 600 mg 12 hr ta blet Take 2 tablets by mouth twice daily as needed for Cold/Allergy Symptoms. - COMPOUNDED PRESCRIPTION Overnight pulse oximetry-- J42 Chronic bronchitis, R09.02hypoxemia - cholecalciferol (VITAMIN D3) 1,000 un it tab tablet Take 1 tablet by mouth once daily. - polyethylene glycol 3350 (MIRALAX, GL YCOLAX) 17 gram packet Take 1 Packet by mouth once daily. - thiamine (VITAMIN B1) 100 mg tablet Take 1 tablet by mouth three times irma ly. - albuterol (PROVENTIL) 2.5 mg /3 mL (0 .083 %) nebulizer solution Use 3 mL via nebulizer every 4 hours a s needed for Wheezing/Shortness of Breath. Use over 5-15minutes. - COMPOUNDED PRESCRIPTION Nebulizer for home use. Dx: chronic br onchitis Meds Comments as of 09/02/2018: 09/02/18 The medications are managed by this patient by: PATIENT Janell Menjivar Pharm-T Problem List As Of Date 09/01/2021 Note d Resolved COLLES' FRACTURE-CLOSED [S52.539A] 09/28/2005 RADIAL STYLOID TENOSYNOV [M65.4] 06/2809/28/2005 FX LATERAL MALLEOLUS-CLOSE [S82.63XA] 11/08/2005 09/18/2007 Chronic bronchitis (HCC) [J42] 007 INSOMNIA, intermittent [G47.00] 2006 Tobacco use disorder [F17.200] 007 Acute sinusitis, unspecified [J01.90] 02/06/2008 06/13/2017 Reactive depression [F32.9] 02/06/2008 GENERALIZED ANXIETY DIS [F41.1] 2007 GLAUCOMA NOS [H40.9] 02/06/2008 ALLERGIC RHINITIS NOS [J30.9] 05/08/19 09 FAMILY HX GI MALIGNANCY [Z80.0] 2008 DYSPHAGIA NEC [R13.19] 08/25/2008 UNSP ABNORMAL MAMMOGRAM [R92.8] 2008 DUODENITIS W/O HEMORRHAGE [K29.80] ACUTE GASTRITIS W/O HEMORRHAGE [K29.00 ] 09/14/2008 Unspecified Disorder of Skin and Subcu taneous T*12/01/2008 Helicobacter Pylori 12/08/2008 Benign Neoplasm of Skin of Trunk, exce pt Scrotu*12/09/2008 Fracture of right distal radius [S52.5 01A] 07/24/2012 11/24/2014 Ankle fracture [S82.899A] 11/24/2014 Essential hypertension [I10] 7 Gastroesophageal reflux disease withou t esophag*10/20/2017 Compression fracture of T5 vertebra (H CC) [S22.*08/24/2018 Trauma [T14.90XA] 08/27/2018 Fall from ladder [W11.XXXA] 08/27/2018 Closed fracture of multiple ribs of ri ght side *08/27/2018 Wheezing [R06.2] 08/27/2018 Hypoxia [R09.02] 08/27/2018 Back pain [M54.9] 09/2018 Incidental lung nodule, greater than o r equal t*11/04/2019 COPD, severe (HCC) [J44.9] 11/04/2019 Tension pneumothorax [J93.0] 0 Chronic respiratory failure with hypox ia (HCC) *12/25/2019 Community acquired pneumonia of left l ower lobe*12/25/2019 Cervical spondylosis without myelopath y [M47.81*03/02/2020 05/27/2020 Lumbosacral spondylosis without myelop athy [M47*03/02/2020 05/27/2020 Letter Text Encounter Status:Closed by INDIO MANZANARES I on 09/02/21 CBC W AUTO DIFF BLD Collected: 08/31/2021 8:25 Status: Maday Feldman ource: [facility] Order Comment: Specimen Type: BLOOD SP ECIMEN Ordering Facility: [facility] Address: [address] [place] [address], [facility] [phone] TYPE CODE TESTS RESULT OUT OF REFERENCE UNITS RANGE LAB 6690-2(LOINC) WBC # Bld Auto 5.81 3.70-11. 00 k/uL LAB 789-8(LOINC) RBC # Bld Auto 4.24 3.90-5.20 m/uL LAB 718-7(LOINC) Hgb Bld-mCnc 12.9 11.5-15.5 g /dL LAB 4544-3(LOINC) Hct VFr Bld Auto 39.4 36.0-4 6.0 % LAB 787-2(LOINC) MCV RBC Auto 92.9 80.0-100.0 fL LAB 785-6(LOINC) MCH RBC Qn Auto 30.4 26.0-34. 0 pg LAB 786-4(LOINC) MCHC RBC 32.7 30.5-36.0 g/dL Auto-mCnc LAB 56040-4(LOINC) RDW RBC-Rto 13.2 11.5-15.0 % LAB 777-3(LOINC) Platelet # Bld 390 150-400 k/uL Auto LAB 08502-0(LOINC) PMV Bld Auto 10.1 9.0-12.7 fL LAB 770-8(LOINC) Neutrophils/leuk 61.1 % NFr Bld Auto LAB 751-8(LOINC) Neutrophils # 3.55 1.45-7.50 k/uL Bld Auto LAB 736-9(INC) Lymphocytes/leuk 21.5 % NFr Bld Auto LAB 731-0(INC) Lymphocytes # Bld 1.25 1.00-4. 00 k/uL Auto LAB 5905-5(INC) Monocytes/leuk 13.3 % NFr Bld Auto LAB 742-7(INC) Monocytes # Bld 0.77 <0.87 k/uL Auto LAB 713-8(INC) Eosinophil/leuk 3.1 % NFr Bld Auto LAB 711-2(INC) Eosinophil # Bld 0.18 <0.46 k/uL Auto LAB 706-2(INC) Basophils/leuk 0.7 % NFr Bld Auto LAB 704-7(LOINC) Basophils # Bld 0.04 <0.11 k/uL Auto LAB AIMMGRAN IMMATURE GRAN % 0.3 % LAB ABGRAN IMMATURE GRAN <0.03 <0.10 k/u L ABS LAB 77536-6([facility]) nRBC/100 WBC 0.0 /100 WBC Bld-Rto LAB 771-6([facility]) nRBC # Bld Auto <0.01 <0.01 k/uL LAB 70895-4(INC) Differential Auto method Bld Performed By: #### 85193-3 #### [facility] CLIA [id number] [address] [place] [address] STAT ES OF ERIC COMP METAB 2000 PNL Collected: 08/31/2021 8:25 Status: Maday Feldman ource: [facility] Order Comment: Specimen Type: BLOOD SP ECIMEN Ordering Facility: [facility]ATION Address: [address] [place] [address], [place] [phone] TYPE CODE TESTS RESULT OUT OF RANGE REFERENCE UNITS LAB 2885-2(LOINC) Prot SerPl-mCnc 6.9 6.3-8.0 g/dL LAB 1751-7(LOINC) Albumin 4.3 3.9-4.9 g/dL SerPl-mCnc LAB 68280-1(LOINC) Calcium 9.0 8.5-10.2 mg/dL SerPl-mCnc LAB 1975-2(LOINC) Bilirub 0.7 0.2-1.3 mg/dL SerPl-mCnc LAB 6768-6(LOINC) ALP SerPl-cCnc 61 34-123 U/L LAB 1920-8(LOINC) AST SerPl-cCnc 17 13-35 U/L LAB 1742-6(LOINC) ALT SerPl-cCnc 12 7-38 U/L LAB 2345-7(LOINC) Glucose 97 74-99 mg/dL SerPl-mCnc Result Comment: The [place] Diabetes Association (ADA) provides guidance for cutoff values for fasting glucose and random glucose. The ADA defines fasting as no caloric intake for at least 8 hours. Fas ting plasma glucose results between 100 to 125 mg/dL indicate increased risk for diabetes (prediabetes). Fasting plasma glucose results greater than or equal to 126 mg/dL meet the criteria for diagnosis of diabetes. In the absence of unequivocal hyperglycemia, results should be confirmed by repeat testing. In a patient with classic symptoms of h yperglycemia or hyperglycemic crisis, random plasma glucose results greater than or equal to 200 mg/dL meet the criteria for diagnosis of diabetes. Reference: Standards of Medical Care in Diabetes 2016, [place] Diabetes Association. Diabetes Care. 2016.39(Suppl 1). LAB 3094-0(LOINC) BUN SerPl-mCnc 16 7-21 mg/dL LAB 2160-0(LOINC) Creat SerPl-mCnc 0.54 Low 0.58-0 .96 mg/dL LAB 2951-2(LOINC) Sodium SerPl-sCnc 133 Low 136-14 4 mmol/L LAB 2823-3(LOINC) Potassium 4.0 3.7-5.1 mmo l/L SerPl-sCnc LAB 2075-0(LOINC) Chloride 96 Low 97-105 mmol /L SerPl-sCnc LAB 2027-(LOINC) CO2 SerPl-sCnc 26 22-30 mmol/L LAB 59519-6(LOINC) Anion Gap 11 9-18 mmo l/L SerPl-sCnc LAB GFRALL ESTIMATED 100 >=60 mL/min/1 .73m?? GLOMERULAR ? FILTRATION RATE Result Comment: Estimated Glomerular F iltration Rate (eGFR) is calculated using the 2020 CKD-EPI creatinine equation. This e quation utilizes serum creatinine, sex, and age as parameters. The creatinine assay has traceable calibration to isotope dilution-mass spectrometry. Refer to KDI GO guidelines for clinical interpretation. In patients with unstable renal function, e .g. those with acute kidney injury, the eGFR may not accurately reflect actual GFR. Performed By: #### 24424-0, 07358-6, L BENJI, 3016-3 #### [facility] CLIA [id number] [address] [place], [place] [address]K [address] OF ERIC LIPID PANEL, NONFASTING Collected: 08/31/2021 Status: F So urce: [facility] 8:25 AM [facility] Order Comment: Specimen Type: BLOOD SP ECIMEN [facility] Address: [address] [place] [address], [place] [phone] TYPE CODE TESTS RESULT OUT OF RANGE REFERENCE UNITS LAB CHOLNF TOTAL CHOLESTEROL NF 159 <200 mg/dL Result Comment: <200 mg/dL, Desirable 200-239 mg/dL, Borderline high >239 mg/dL, High LAB TRIGNF TRIGLYCERIDES, NF 51 <150 mg/dL Result Comment: <150 mg/dL, Normal 150-199 mg/dL, Borderline high 200-499 mg/dL, High >499 mg/dL, Very high LAB HDLNF HDL CHOLESTEROL, NF 66 >39 mg/dL Result Comment: 40-59 mg/dL, Acceptabl e >59 mg/dL, High: Negative risk factor f or coronary heart disease <40 mg/dL, Low: Positive risk factor f or coronary heart disease LAB LDLNF LDL CHOLESTEROL, NF 83 <100 mg/dL Result Comment: <100 mg/dL, Optimal 100-129 mg/dL, Near optimal/above opt imal 130-159 mg/dL, Borderline high 160-189 mg/dL, High >189 mg/dL, Very high Secondary prevention optimal LDL Choles terol levels are recommended to be < 70 mg/dL LAB NOHDLN NON HDL CHOL, NF 93 <130 mg/dL Result Comment: <130 mg/dL, Optimal 130-159 mg/dL, Near optimal/above opti mal 160-189 mg/dL, Borderline high 190-219 mg/dL, High >219 mg/dL, Very high Secondary prevention optimal non HDL Ch olesterol levels are recommended to be <100 mg/dL LAB VLDLNF VLDL CHOLESTEROL, NF 10 <30 mg/dL LAB TCHDLN T CHOL/HDL RATIO NF 2.41 <5.10 mg/dL LAB LDLHDN LDL/HDL RATIO, NF 1.26 <2.54 mg/dL Result Comment: Reference: 1. National Cholesterol Education Progr am ATP III Guideline At-A-Glance Quick Desk Reference: National Heart, Lung, and Blood [place]. National Institutes of Health. 2001: NIH Publication No. 01-3305. 2. An International Atherosclerosis Soc iety position paper: global recommendations for the management of dyslipidemia: executive summary, Atherosclerosis. 2014: 232(2):410-413. Performed By: #### 41556-8, 98725-3, L IPNF, 3016-3 #### [facility] CLIA [id number] [address] [place] [address] [place] STAT ES OF ERIC MAGNESIUM SERPL-MCNC Collected: 08/31/2021 8:25 Status: F Source: [facility] Order Comment: Specimen Type: BLOOD SP ECIMEN Ordering Facility: [facility] Address: [address] [place] [address], [facility] [phone] TYPE CODE TESTS RESULT OUT OF RANGE REFERENCE UNITS LAB 45698-3(LOINC) Magnesium 1.9 1.7-2.3 mg /dL SerPl-mCnc Performed By: #### 76257-4, 57755-5, L IPNF, 3016-3 #### [facility] CLIA [id number] [address] [place] [address] [place] STAT ES OF ERIC TSH SERPL-ACNC Collected: 08/31/2021 8:25 AM Status: Maday Ruiz urce: [facility] REPOS[facility] Y Order Comment: Specimen Type: BLOOD SP ECIMEN Ordering Facility: [facility] Address: [address] [place] [phone] TYPE CODE TESTS RESULT OUT OF RANGE REFERENCE UNITS LAB 3016-3(LOINC) TSH SerPl-aCnc 1.210 0.270-4.2 00 mIU/L Performed By: #### 45692-5, 47366-4, LIPNF, 3016-3 #### [facility] CLIA [id number] [address] [place] [address] [place] STAT ES OF ERIC VITAMIN B12 BLOOD Collected: 08/31/2021 8:25 Status: Maday Rose rce: [facility] Order Comment: Specimen Type: BLOOD SP ECIMEN Ordering Facility: [facility] Address: [address] [place], [place] [phone] TYPE CODE TESTS RESULT OUT OF RANGE REFERENCE UNITS LAB 2132-9(LOINC) Vit B12 SerPl-mCnc >2000 High 232-1 ,245 pg/mL Performed By: #### B12 #### [facility] CLIA [id number] [address] [place] [address] [place] STAT ES OF ERIC CNPN Observed: 08/23/2021 12:00 AM Status: COMPLETED Source: [facility] REPOSITOR Y Telephone (ISAI) DALIA MENDES ([id number]) 1955 F Date Time Provider Department 08/23/21 JORGE DIOP During your visit today, we recorded the following information about you: GABI Hernandez 08/23/2021 9:59 AM Signed Sw called and left message for patient in regards to SW consult request to help with financial constraints and help swati und the house. Loki requested patient call LOKI back to danny strickland needs. GABI Hernandez 08/24/2021 11:44 AM S igned Sw left 2nd message for patient to ret urn Sw to discuss financial/home care assistance needs. Allergies As of Date: 08/23/2021 Noted Allergy Reaction WELLBUTRIN SR (BUPROPION) 05/08/2008 1 - Mental Status Change Comments: made me hallucinate Date Reviewed: 08/19/2021 Reviewed by: Racheal Lopez LPN - Fully Assessed Reason for Visit: Social Work Services [507] Prescriptions as of 08/25/2021 - atorvastatin (LIPITOR) 10 mg tablet Take 1 tablet by mouth once daily. - amLODIPine (NORVASC) 2.5 mg tablet Take 1 tablet by mouth once daily. - citalopram (CELEXA) 20 mg tablet Take 1 tablet by mouth once daily. - losartan (COZAAR) 50 mg tablet Take 1 tablet by mouth twice daily. - omeprazole (PRILOSEC) 40 mg capsule Take 1 capsule by mouth once daily. - ibuprofen (MOTRIN) 800 mg tablet Take 1 tablet by mouth every 8 hours a s needed for pain (back). Take with food - gabapentin (NEURONTIN) 300 mg capsule Take 1 capsule by mouth twice daily f or 90 days. - igvmoqzdiok-orgxsufyc-oqcqldlr (TRELE GY ELLIPTA) 100-62.5-25 mcg inhalation powder Inhale 1 Puff as instructed once daily . - aspirin 81 mg chewable tablet Take 1 tablet by mouth once daily. - Food Supplement, Lactose-Free (ENSURE ACTIVE HIGH PROTEIN) liqd Take 237 mL by mouth once daily. - albuterol HFA (VENTOLIN HFA) 90 mcg/a ctuation inhaler Inhale 2 Puffs as instructed every 4 h ours as needed. -active - HYDROcodone-acetaminophen (NORCO) 5-3 25 mg per tablet Take 1 tablet by mouth every 12 hours as needed for pain (Severe pain) for up to 7 days. - Ciclopirox (PENLAC) 8 % solution Apply to affected area once daily. TO AFFECTED AREA. - ketoconazole (NIZORAL) 2 % cream Apply 1 application to affected area o nce daily. To rash on legs and feet for 2 weeks at least and continue for 1 we ek after rash resolves. - promethazine (PHENERGAN) 6.25 mg/5 mL syrup Take 5-10 mL by mouth four times daily as needed for Nausea/Vomiting (and cough). - nabumetone (RELAFEN) 500 mg tablet Take 1 tablet by mouth twice daily. - diclofenac sodium (VOLTAREN) 1 % topi philip gel Apply 2 grams to affected area four ti mes daily. - PREDNISONE ORAL Take by mouth. See Taper instructions. - guaiFENesin (MUCINEX) 600 mg 12 hr t ablet Take 2 tablets by mouth twice daily as needed for Cold/Allergy Symptoms. - COMPOUNDED PRESCRIPTION Overnight pulse oximetry-- J42 Chronic bronchitis, R09.02hypoxemia - cholecalciferol (VITAMIN D3) 1,000 un it tab tablet Take 1 tablet by mouth once daily. - polyethylene glycol 3350 (MIRALAX, GL YCOLAX) 17 gram packet Take 1 Packet by mouth once daily. - thiamine (VITAMIN B1) 100 mg tablet Take 1 tablet by mouth three times irma ly. - albuterol (PROVENTIL) 2.5 mg /3 mL ( 0.083 %) nebulizer solution Use 3 mL via nebulizer every 4 hours a s needed for Wheezing/Shortness of Breath. Use over 5-15minutes. - COMPOUNDED PRESCRIPTION Nebulizer for home use. Dx: chronic br onchitis Meds Comments as of 09/02/2018: 09/02/18 The medications are managed by this patient by: PATIENT Janell Menjivar Pharm-T Problem List As Of Date 08/23/2021 Note d Resolved COLLES' FRACTURE-CLOSED [S52.539A] 09/28/2005 RADIAL STYLOID TENOSYNOV [M65.4] 06/2809/28/2005 FX LATERAL MALLEOLUS-CLOSE [S82.63XA] 11/08/2005 09/18/2007 Chronic bronchitis (HCC) [J42] 2006 INSOMNIA, intermittent [G47.00] 2006 Tobacco use disorder [F17.200] 007 Acute sinusitis, unspecified [J01.90] 02/06/2008 06/13/2017 Reactive depression [F32.9] 8 GENERALIZED ANXIETY DIS [F41.1] 2007 GLAUCOMA NOS [H40.9] 02/06/2008 ALLERGIC RHINITIS NOS [J30.9] 009 FAMILY HX GI MALIGNANCY [Z80.0] 2008 DYSPHAGIA NEC [R13.19] 08/25/2008 UNSP ABNORMAL MAMMOGRAM [R92.8] 08/29 DUODENITIS W/O HEMORRHAGE [K29.80] ACUTE GASTRITIS W/O HEMORRHAGE [K29.0 0] 09/14/2008 Unspecified Disorder of Skin and Subcu taneous T*12/01/2008 Helicobacter Pylori 12/08/2008 Benign Neoplasm of Skin of Trunk, exc ept Scrotu*12/09/2008 Fracture of right distal radius [S52.5 01A] 07/24/2012 11/24/2014 Ankle fracture [S82.899A] 11/24/2014 Essential hypertension [I10] 7 Gastroesophageal reflux disease withou t esophag*10/20/2017 Compression fracture of T5 vertebra (H CC) [S22.*08/24/2018 Trauma [T14.90XA] 08/27/2018 Fall from ladder [W11.XXXA] 9 Closed fracture of multiple ribs of ri ght side *08/27/2018 Wheezing [R06.2] 08/27/2018 Hypoxia [R09.02] 08/27/2018 Back pain [M54.9] 09/2018 Incidental lung nodule, greater than or equal t*11/04/2019 COPD, severe (HCC) [J44.9] 11/04/2019 Tension pneumothorax [J93.0] 0 Chronic respiratory failure with hypo rupinder (HCC) *12/25/2019 Community acquired pneumonia of left l ower lobe*12/25/2019 Cervical spondylosis without myelopath y [M47.81*03/02/2020 05/27/2020 Lumbosacral spondylosis without myelop athy [M47*03/02/2020 05/27/2020 Encounter Status:Closed by Tarsha DIOP on 08/25/21 PROGRESS Observed: 08/19/2021 9:54 AM Status: COMPLETED S ource: [facility] HNO ID: [id number] Author: Lacy Manzanares APRN.MANAGER OF CORPORATE Service: ? Author Type: Nurse Specialist Type: Progress Notes Filed: 08/19/2021 10:45 AM Note Text: SUBJECTIVE: LUNG CANCER SCREENING Never done SHINGRIX VACCINE(1 of 2) Never done MAMMOGRAM due on 07/01/2014 BONE DENSITY Never done BP CONTROLLED (<130/80) due on 12/25/19 21 COVID-19 VACCINE(2 - Booster for Jansse n series) due on 03/03/2021 ADVANCE DIRECTIVE DISCUSSION Never done DIABETES SCREEN due on 08/30/2021 HPI Dalia Mendes is a 66 year old femal e. PMH significant for ACTIVE PROBLEM LIST Chronic Bronchitis (Hcc) INSOMNIA, intermittent Tobacco Use Disorder Reactive depression Generalized Anxiety Disorder Unspecified Glaucoma(365.9) Allergic Rhinitis, Cause Unspecified Family History of Malignant Neoplasm of Gastrointestinal Tract Other Dysphagia Abnormal Mammogram, Unspecified Duodenitis Without Mention of Hemorrhag e Acute Gastritis Without Mention of Hem orrhage Unspecified Disorder of Skin and Subcut aneous Tissue Helicobacter Pylori Benign Neoplasm of Skin of Trunk, Excep t Scrotum Ankle Fracture Essential Hypertension Gastroesophageal Reflux Disease Without Esophagitis Compression Fracture of T5 Vertebra (Hc c) Trauma Fall From Ladder Closed Fracture of Multiple Ribs of Rig ht Side With Routine Healing Wheezing Hypoxia Back Pain Incidental Lung Nodule, Greater Than Or Equal to 8mm Copd, Severe (Hcc) Tension Pneumothorax Chronic Respiratory Failure With Hypoxi a (Hcc) Community Acquired Pneumonia of Left Lo wer Lobe of Lung HPI excerpted from previous visit: She was admitted to [facility] December 02 through December 06, 2020. Admission for COPD exacerbation and respiratory failure. She was seen by pulmonary medi cine during her admission by Dr. Bentley. Medications at discharge citalopram 20 mg oral daily omeprazole 40 mg oral daily amlodipine 2.5 mg oral daily cycl obenzaprine 10 mg 3 times daily as needed, gabapentin 300 mg oral twice da nicholas, albuterol sulfate inhaler every 4 hours as needed, fluticasone Um eclidinium vilanterol daily, atorvastatin 10 mg oral daily ibuprofen by 800 mg oral 3 times daily as needed, Augmentin twice daily x8 tablet s prednisone taper. Record review shows that she was commen ded for cough and dyspnea. Noted to have acute on chronic hypoxic respi ratory failure secondary exacerbation of COPD and left lower lob e pneumonia. Pulmonary medicine followed during her admission. Chest x- ray showed small left pleural effusion, left lower lobe pneumonia gloria jasmin atelectasis. BiPAP as needed during admission. She was continued on supplemental oxygen to keep O2 above 90%, 3 to 6 [facility] Treated with IV Solu-Medrol during admission, transitio n to oral prednisone taper at discharge. Respiratory panel and Covid testing were negative. Sputum culture shows presumptive C albicans mi xed [facility]. Treated with IV azithromycin and IV Zosyn during admiss ion. Transition to Augmentin at discharge. Follow-up in 1 week with PCP recommended. Follow-up with pulmonary medicine in 2 weeks recommend ed. Palliative medicine consulted during recent admission and recommended continued followed up with palliative medicine at discharge given moderately severe obstructive lung disease. Secondary diagnoses chronic hy ponatremia likely secondary to chronic alcohol use which was improved. Chronic alcohol use, MVI thiamine and folic acid supplementation recommen ded. Hypertension with stable and she was continued on amlodipine hyperli pidemia noted she was continued on statin. Noted severe protein calorie ma lnutrition as evidenced by reduced BMI and cachectic appearance. Dietitian consulted during admission. 12/06/2020 WBC 9.3 hemoglobin 10.9 hemat ocrit 33.4 platelets 504. Sodium 131 potassium 4.7 chloride 96 CO2 30 5 BUN 22 creatinine 0.38 estimated creatinine clearance 43.61 glucose 113 calcium 8.1 Shortness of breath: continues but impr len Cough: present Wheeze: some Sputum:no Fever: none since discharge Oxygen: 3L NC 24/7 Inhaler: Using currently, in need of ma intenance inhaler refill from Dr. Bentley Follow-up with education teacher: scheduled for next week, Dr. Bentley's office Complete medications: yes completed. Notes eating OK. Does not take any supp lemental, nothing recommended at discharge notes continues to smoke, EtO H. Notes chronic back pain, stable, no ala rm symptoms, ibuprofen seems to help somewhat. Not interested in physic al therapy. Has not seen spine physician. X-ray completed in February. Requests [facility]. Presents today for routine follow up vi sit. She reports no hospitalization or ER visits since last year. She has not seen Dr. Bentley since her ER visit in 2020, needs to [place] [facility] follow-[facility]. COPD: Noted to be severe Cough: Present, clear sputum Wheeze: Present Shortness of breath: Present Funeral Director And Embalmer visit: Dr Bentley Oxygen: 2 to 3 L by nasal cannula 16/10 Inhaler use: Notes using consistently Smoking: Continues Palliative medicine: Not participating in this She notes financial constraints, diffic ulty affording medications. Notes she needs assistance with housework now and then, perhaps 2 days a week. Chronic back pain is stable, no alarm symptoms reported. Review of Systems Constitutional: Negative. Respiratory: Positive for cough, shortn ess of breath and wheezing. Musculoskeletal: Positive for back pain . Objective BP 132/88 Pulse 93 Resp 16 Ht 161 .3 cm (5' 3.5 ) Wt 51.7 kg (114 lb) SpO2 94% BMI 19.88 kg/m? Physical Exam Vitals and nursing note reviewed. Constitutional: Appearance: Normal appearance. HENT: Head: Normocephalic and atraumatic. Eyes: Conjunctiva/sclera: Conjunctivae kaye l. Cardiovascular: Rate and Rhythm: Normal rate and regul ar rhythm. Pulmonary: Effort: Pulmonary effort is normal. Breath sounds: Wheezing and rhonchi pr esent. Musculoskeletal: Lumbar back: Tenderness present. Decre ased range of motion. Right lower leg: No edema. Left lower leg: No edema. Skin: General: Skin is warm and dry. Neurological: Mental Status: She is alert. Mental st atus is at baseline. Psychiatric: Mood and Affect: Mood normal. ALLERGIES Allergen Reactions - Wellbutrin Sr [Bupr* Mental Status C morro made me hallucinate Medications atorvastatin (LIPITOR) 10 mg tablet Herb e 1 tablet by mouth once daily. amLODIPine (NORVASC) 2.5 mg tablet Take 1 tablet by mouth once daily. citalopram (CELEXA) 20 mg tablet Take 1 tablet by mouth once daily. losartan (COZAAR) 50 mg tablet Take 1 t ablet by mouth twice daily. omeprazole (PRILOSEC) 40 mg capsule Herb e 1 capsule by mouth once daily. ibuprofen (MOTRIN) 800 mg tablet Take 1 tablet by mouth every 8 hours as needed for pain (back). Take with food gabapentin (NEURONTIN) 300 mg capsule T kam 1 capsule by mouth twice daily for 90 days. sozmqmmripo-dqegzbgdf-opmpeywg (TRELEGY ELLIPTA) 100-62.5-25 mcg inhalation powder Inhale 1 Puff as inst ructed once daily. aspirin 81 mg chewable tablet Take 1 ta blet by mouth once daily. Food Supplement, Lactose-Free (ENSURE A CTIVE HIGH PROTEIN) liqd Take 237 mL by mouth once daily. albuterol HFA (VENTOLIN HFA) 90 mcg/act uation inhaler Inhale 2 Puffs as instructed every 4 hours as needed. -ac tive nabumetone (RELAFEN) 500 mg tablet Herb e 1 tablet by mouth twice daily. PREDNISONE ORAL Take by mouth. See Tape r instructions. COMPOUNDED PRESCRIPTION Overnight pulse oximetry-- J42 Chronic bronchitis, R09.02hypoxemia cholecalciferol (VITAMIN D3) 1,000 unit tab tablet Take 1 tablet by mouth once daily. thiamine (VITAMIN B1) 100 mg tablet Herb e 1 tablet by mouth three times daily. albuterol (PROVENTIL) 2.5 mg /3 mL (0.0 83 %) nebulizer solution Use 3 mL via nebulizer every 4 hours as needed f or Wheezing/Shortness of Breath. Use over 5-15minutes. COMPOUNDED PRESCRIPTION Nebulizer for h ome use. Dx: chronic bronchitis HYDROcodone-acetaminophen (NORCO) 5-325 mg per tablet Take 1 tablet by mouth every 12 hours as needed for pain (Severe pain) for up to 7 days. Ciclopirox (PENLAC) 8 % solution Apply to affected area once daily. TO AFFECTED AREA. ketoconazole (NIZORAL) 2 % cream Apply 1 application to affected area once daily. To rash on legs and feet for 2 w eeks at least and continue for 1 week after rash resolves. promethazine (PHENERGAN) 6.25 mg/5 mL s yrup Take 5-10 mL by mouth four times daily as needed for Nausea/Vomiti ng (and cough). diclofenac sodium (VOLTAREN) 1 % topica l gel Apply 2 grams to affected area four times daily. guaiFENesin (MUCINEX) 600 mg 12 hr tabl et Take 2 tablets by mouth twice daily as needed for Cold/Allergy Sympto ms. polyethylene glycol 3350 (MIRALAX, GLYC OLAX) 17 gram packet Take 1 Packet by mouth once daily. PAST MEDICAL HISTORY Diagnosis Date - Anxiety - Back pain 09/2018 T5 compression fracture in fall. - Chronic obstructive pulmonary disease (COPD) ([facility]) - Dysphagia, unspecified(787.20) - Emphysema lung ([facility]) - Hypertension - INSOMNIA, intermittent 12/17/2006 stress related - Unspecified chronic bronchitis ([facility]) 12/17/2006 Social History Tobacco Use - Smoking status: Current Every Day Smo ker Packs/day: 1.00 Years: 25.00 Pack years: 25.00 Types: Cigarettes Start date: 1965 - Smokeless tobacco: Never Used - Tobacco comment: No smoking in childh od home.-- Not smoking now given COVID 19 Vaping Use - Vaping Use: Never used Substance Use Topics - Alcohol use: Yes Comment: daily; hospital records noted 6+beers daily but at Oct hospital follow up, was not drinking, occ. - Drug use: No ASSESSMENT/PLAN: ASSESSMENT/PLAN: 1. COPD, severe ([facility]) - ICD9: 496, ICD1 0: J44.9 (primary diagnosis) 5. Chronic bronchitis, unspecified silverware buffer ramon bronchitis type ([facility]) - ICD9: 491.9, ICD10: J42 Currently stable, no recent exacerbatio n. Continue with current treatment unchanged for now. Currently using inha lers routinely. Reports oxygen 2 to 3 L 16/10. She is overdue for follow -up visit with Dr. Bentley her education teacher. 6. Tobacco use disorder - ICD9: 305.1, ICD10: F17.200 Cessation endorsed - CBC + DIFF - COMP METABOLIC PANEL 7. Hypoxia - ICD9: 799.02, ICD10: R09.0 2 Stable, compensated with current treatm ent and oxygen use. 8. Gastroesophageal reflux disease with out esophagitis - ICD9: 530.81, ICD10: K21.9 Without current complaints - CBC + DIFF - COMP METABOLIC PANEL - OMEPRAZOLE 40 MG CAPSULE,DELAYED RELE ASE 9. PAD (peripheral artery disease) ([facility] ) - ICD9: 443.9, ICD10: I73.9 - ATORVASTATIN 10 MG TABLET 10. Gastroesophageal reflux disease wit hout esophagitis - ICD9: 530.81, ICD10: K21.9 - CBC + DIFF - COMP METABOLIC PANEL - OMEPRAZOLE 40 MG CAPSULE,DELAYED RELE ASE 11. Compression fracture of T5 vertebra , initial encounter ([facility]) - ICD9: 805.2, ICD10: S22.050A 12. Closed fracture of multiple ribs of right side with routine healing - ICD9: V54.19, ICD10: S22.41XD She notes back pain is currently manage d with gabapentin. PDMP website checked and validated. All prescriptions have been APPROPRIATELY filled. No suspicious act ivity was identified. 08/19/2021 by Lacy Manzanares APRN.MANAGER OF CORPORATE - GABAPENTIN 300 MG CAPSULE 13. Need for financial support - ICD9: V60.2, ICD10: Z59.9 She notes difficulty affording medicati ons, difficulty with transportation, notes she needs assista nce with housework a couple of times per week. - PRIMARY CARE SOCIAL WORK CONSULT 14. Essential hypertension - ICD9: 401. 9, ICD10: I10 Stable, currently controlled, continue to monitor. 15. Reactive depression - ICD9: 300.4, ICD10: F32.9 16. Generalized anxiety disorder - ICD9 : 300.02, ICD10: F41.1 Stable, currently controlled, continue to monitor. - TSH BLD - MAGNESIUM BLD - VITAMIN B12 BLOOD Declines to complete lab work today sta jerman she will return next week for this. 6-month follow-up with PCP Lacy Manzanares APRN.MANAGER OF CORPORATE Medical Decision Making: Problems: Moderate: 2+ stable chronic illnesses Data: Unique test(s) ordered: 3+ Risk: Moderate: Drug management Medical Decision Making Level: 4 - Mode rate CNOV Observed: 08/19/2021 9:40 AM Status: COMPLETED S ource: [facility] REPOSITOR Y Office Visit ([facility]) DALIA MENDES ([id number]) 1955 F Date Time Provider Department 08/19/21 9:40 AM LACY MANZANARES [facility] During your visit today, we recorded t he following information about you: Pulse Respiration Blood pressure Weigh t 93/minute 16/minute 132/88 51.7 kg Height 1.613 m Lacy Manzanares APRN.MANAGER OF CORPORATE 08/19/2021 10:45 AM Signed SUBJECTIVE: LUNG CANCER SCREENING Never done SHINGRIX VACCINE(1 of 2) Never done MAMMOGRAM due on 07/01/2014 BONE DENSITY Never done BP CONTROLLED (<130/80) due on 12/25/19 21 COVID-19 VACCINE(2 - Booster for Jansse n series) due on 03/03/2021 ADVANCE DIRECTIVE DISCUSSION Never done DIABETES SCREEN due on 08/30/2021 HPI Dalia Mendes is a 66 year old fema le. PMH significant for ACTIVE PROBLEM LIST Chronic Bronchitis (Hcc) INSOMNIA, intermittent Tobacco Use Disorder Reactive depression Generalized Anxiety Disorder Unspecified Glaucoma(365.9) Allergic Rhinitis, Cause Unspecified Family History of Malignant Neoplasm of Gastrointestinal Tract Other Dysphagia Abnormal Mammogram, Unspecified Duodenitis Without Mention of Hemorrhag e Acute Gastritis Without Mention of Hemo rrhage Unspecified Disorder of Skin and Subcut aneous Tissue Helicobacter Pylori Benign Neoplasm of Skin of Trunk, Excep t Scrotum Ankle Fracture Essential Hypertension Gastroesophageal Reflux Disease Withou t Esophagitis Compression Fracture of T5 Vertebra (Hc c) Trauma Fall From Ladder Closed Fracture of Multiple Ribs of Ri ght Side With Routine Healing Wheezing Hypoxia Back Pain Incidental Lung Nodule, Greater Than Or Equal to 8mm Copd, Severe (Hcc) Tension Pneumothorax Chronic Respiratory Failure With Hypoxi a (Hcc) Community Acquired Pneumonia of Left L ower Lobe of Lung HPI excerpted from previous visit: She [facility] through December 06, 2020. Admission for COPD exacerbat ion and respiratory failure. She was seen by pulmonary medicine during her a dmission by Dr. Bentley. Medications at discharge citalopram 20 mg oral daily omeprazole 40 mg oral daily amlodipine 2.5 mg oral daily cycl obenzaprine 10 mg 3 times daily as needed, gabapentin 300 mg oral twice da nicholas, albuterol sulfate inhaler every 4 hours as needed, fluticasone Umeclidini um vilanterol daily, atorvastatin 10 mg oral daily ibuprofen by 800 mg oral 3 t imes daily as needed, Augmentin twice daily x8 tablets prednisone taper. Record review shows that she was commen ded for cough and dyspnea. Noted to have acute on chronic hypoxic respirato ry failure secondary exacerbation of COPD and left lower lobe pneumonia. Pul monary medicine followed during her admission. Chest x-ray showed small lef t pleural effusion, left lower lobe pneumonia versus atelectasis. BiPAP as needed during admission. She was continued on supplemental oxygen to obie p O2 above 90%, 3 to 6 L nasal cannula at baseline. Treated with IV Solu-Medro l during admission, transition to oral prednisone taper at discharge. Respirat ory panel and Covid testing were negative. Sputum culture shows presumpt judson C albicans mixed mercy. Treated with IV azithromycin and IV Zosyn durin g admission. Transition to Augmentin at discharge. Follow-up in 1 week with PCP recommended. Follow-up with pulmonary medicine in 2 weeks recommended. Pallia tive medicine consulted during recent admission and recommended continued fol lowed up with palliative medicine at discharge given moderately severe obstr uctive lung disease. Secondary diagnoses chronic hyponatremia likely secondary to chronic alcohol use which was improved. Chronic alcohol use, MVI thiamine and folic acid supplementation recommended. Hypertension with stable a nd she was continued on amlodipine hyperlipidemia noted she was continued on statin. Noted severe protein calorie malnutrition as evidenced by reduced B TN and cachectic appearance. Dietitian consulted during admission. 12/06/2020 WBC 9.3 hemoglobin 10.9 hemat ocrit 33.4 platelets 504. Sodium 131 potassium 4.7 chloride 96 CO2 30 5 BUN 22 creatinine 0.38 estimated creatinine clearance 43.61 glucose 113 calcium 8.1 Shortness of breath: continues but impr len Cough: present Wheeze: some Sputum:no Fever: none since discharge Oxygen: 3L NC 24/7 Inhaler: Using currently, [facility] Dr. Bentley Follow-up with education teacher: scheduled for next week, Dr. Bentley's office Complete medications: yes completed. Notes eating OK. Does not take any supp lemental, nothing recommended at discharge notes continues to smoke, EtO H. Notes chronic back pain, stable, no ala rm symptoms, ibuprofen seems to help somewhat. Not interested in physical th jania. Has not seen spine physician. X-ray completed in February. Requests [place]. Presents today for routine follow up vi sit. She reports no hospitalization or ER visits since last year. She has not seen Dr. Bentley since her ER visit in 2020, needs to schedule follow-up visi t. COPD: Noted to be severe Cough: Present, clear sputum Wheeze: Present Shortness of breath: Present Funeral Director And Embalmer visit: Dr Bentley Oxygen: 2 to 3 L by nasal cannula 16/10 Inhaler use: Notes using consistently Smoking: Continues Palliative medicine: Not participating in this She notes financial constraints, diffic ulty affording medications. Notes she needs assistance with housework now an d then, perhaps 2 days a week. Chronic back pain is stable, no alarm s ymptoms reported. Review of Systems Constitutional: Negative. Respiratory: Positive for cough, shortn ess of breath and wheezing. Musculoskeletal: Positive for back pain . Objective BP 132/88 Pulse 93 Resp 16 Ht 161 .3 cm (5' 3.5 ) Wt 51.7 kg (114 lb) SpO2 94% BMI 19.88 kg/m? Physical Exam Vitals and nursing note reviewed. Constitutional: Appearance: Normal appearance. HENT: Head: Normocephalic and atraumatic. Eyes: Conjunctiva/sclera: Conjunctivae kaye l. Cardiovascular: Rate and Rhythm: Normal rate and regul ar rhythm. Pulmonary: Effort: Pulmonary effort is normal. Breath sounds: Wheezing and rhonchi pr esent. Musculoskeletal: Lumbar back: Tenderness present. Decre ased range of motion. Right lower leg: No edema. Left lower leg: No edema. Skin: General: Skin is warm and dry. Neurological: Mental Status: She is alert. Mental st atus is at baseline. Psychiatric: Mood and Affect: Mood normal. ALLERGIES Allergen Reactions - Wellbutrin Sr [Bupr* Mental Status Ch duarte made me hallucinate Medications atorvastatin (LIPITOR) 10 mg tablet Herb e 1 tablet by mouth once daily. amLODIPine (NORVASC) 2.5 mg tablet Take 1 tablet by mouth once daily. citalopram (CELEXA) 20 mg tablet Take 1 tablet by mouth once daily. losartan (COZAAR) 50 mg tablet Take 1 t ablet by mouth twice daily. omeprazole (PRILOSEC) 40 mg capsule Herb e 1 capsule by mouth once daily. ibuprofen (MOTRIN) 800 mg tablet Take 1 tablet by mouth every 8 hours as needed for pain (back). Take with food gabapentin (NEURONTIN) 300 mg capsule T kam 1 capsule by mouth twice daily for 90 days. pqjjbubhidw-ayfcdvpqb-kouclfpm (TRELEGY ELLIPTA) 100-62.5-25 mcg inhalation powder Inhale 1 Puff as instructed once daily. aspirin 81 mg chewable tablet Take 1 ta blet by mouth once daily. Food Supplement, Lactose-Free (ENSURE A CTIVE HIGH PROTEIN) liqd Take 237 mL by mouth once daily. albuterol HFA (VENTOLIN HFA) 90 mcg/act uation inhaler Inhale 2 Puffs as instructed every 4 hours as needed. -a ctive nabumetone (RELAFEN) 500 mg tablet Take 1 tablet by mouth twice daily. PREDNISONE ORAL Take by mouth. See Tape r instructions. COMPOUNDED PRESCRIPTION Overnight puls e oximetry-- J42 Chronic bronchitis, R09.02hypoxemia cholecalciferol (VITAMIN D3) 1,000 unit tab tablet Take 1 tablet by mouth once daily. thiamine (VITAMIN B1) 100 mg tablet Herb e 1 tablet by mouth three times daily. albuterol (PROVENTIL) 2.5 mg /3 mL (0. 083 %) nebulizer solution Use 3 mL via nebulizer every 4 hours as needed for W heezing/Shortness of Breath. Use over 5-15minutes. COMPOUNDED PRESCRIPTION Nebulizer for home use. Dx: chronic bronchitis HYDROcodone-acetaminophen (NORCO) 5-325 mg per tablet Take 1 tablet by mouth every 12 hours as needed for pain (Erna re pain) for up to 7 days. Ciclopirox (PENLAC) 8 % solution Apply to affected area once daily. TO AFFECTED AREA. ketoconazole (NIZORAL) 2 % cream Apply 1 application to affected area once daily. To rash on legs and feet for 2 weeks at least and continue for 1 week after rash resolves. promethazine (PHENERGAN) 6.25 mg/5 mL s yrup Take 5-10 mL by mouth four times daily as needed for Nausea/Vomiting (a nd cough). diclofenac sodium (VOLTAREN) 1 % topica l gel Apply 2 grams to affected area four times daily. guaiFENesin (MUCINEX) 600 mg 12 hr tabl et Take 2 tablets by mouth twice daily as needed for Cold/Allergy Symptoms. polyethylene glycol 3350 (MIRALAX, GLY COLAX) 17 gram packet Take 1 Packet by mouth once daily. PAST MEDICAL HISTORY Diagnosis Date - Anxiety - Back pain 09/2018 T5 compression fracture in fall. - Chronic obstructive pulmonary disease (COPD) ([facility]) - Dysphagia, unspecified(787.20) - Emphysema lung ([facility]) - Hypertension - INSOMNIA, intermittent 12/17/2006 stress related - Unspecified chronic bronchitis ([facility]) 12/17/2006 Social History Tobacco Use - Smoking status: Current Every Day Irina farley Packs/day: 1.00 Years: 25.00 Pack years: 25.00 Types: Cigarettes Start date: 1965 - Smokeless tobacco: Never Used - Tobacco comment: No smoking in childh od home.-- Not smoking now given COVID 19 Vaping Use - Vaping Use: Never used Substance Use Topics - Alcohol use: Yes Comment: daily; hospital records noted 6+beers daily but at Oct hospital follow up, was not drinking, occ. - Drug use: No ASSESSMENT/PLAN: ASSESSMENT/PLAN: 1. COPD, severe ([facility]) - ICD9: 496, ICD 10: J44.9 (primary diagnosis) 5. Chronic bronchitis, unspecified silverware buffer ramon bronchitis type ([facility]) - ICD9: 491.9, ICD10: J42 Currently stable, no recent exacerbatio n. Continue with current treatment unchanged for now. Currently using inha lers routinely. Reports oxygen 2 to 3 L 16/10. She is overdue for follow-up vi sit with Dr. Bentley her education teacher. 6. Tobacco use disorder - ICD9: 305.1, ICD10: F17.200 Cessation endorsed - CBC + DIFF - COMP METABOLIC PANEL 7. Hypoxia - ICD9: 799.02, ICD10: R09.0 2 Stable, compensated with current treatm ent and oxygen use. 8. Gastroesophageal reflux disease with out esophagitis - ICD9: 530.81, ICD10: K21.9 Without current complaints - CBC + DIFF - COMP METABOLIC PANEL - OMEPRAZOLE 40 MG CAPSULE,DELAYED RELE ASE 9. PAD (peripheral artery disease) ([facility] ) - ICD9: 443.9, ICD10: I73.9 - ATORVASTATIN 10 MG TABLET 10. Gastroesophageal reflux disease wit hout esophagitis - ICD9: 530.81, ICD10: K21.9 - CBC + DIFF - COMP METABOLIC PANEL - OMEPRAZOLE 40 MG CAPSULE,DELAYED RELE ASE 11. Compression fracture of T5 vertebra , initial encounter ([facility]) - ICD9: 805.2, ICD10: S22.050A 12. Closed fracture of multiple ribs of right side with routine healing - ICD9: V54.19, ICD10: S22.41XD She notes back pain is currently manage d with gabapentin. PDMP website checked and validated. All prescriptions have been APPROPRIATELY filled. No suspicious activity was iden tified. 08/19/2021 by Lacy Manzanares APRN.MANAGER OF CORPORATE - GABAPENTIN 300 MG CAPSULE 13. Need for financial support - ICD9: V60.2, ICD10: Z59.9 She notes difficulty affording medicati ons, difficulty with transportation, notes she needs assistance with housewo rk a couple of times per week. - PRIMARY CARE SOCIAL WORK CONSULT 14. Essential hypertension - ICD9: 401. 9, ICD10: I10 Stable, currently controlled, continue to monitor. 15. Reactive depression - ICD9: 300.4, ICD10: F32.9 16. Generalized anxiety disorder - ICD9 : 300.02, ICD10: F41.1 Stable, currently controlled, continue to monitor. - TSH BLD - MAGNESIUM BLD - VITAMIN B12 BLOOD Declines to complete lab work today sta jerman she will return next week for this. 6-month follow-up with PCP Lacy Manzanares APRN.CNS Medical Decision Making: Problems: Moderate: 2+ stable chronic illnesses Data: Unique test(s) ordered: 3+ Risk: Moderate: Drug management Medical Decision Making Level: 4 - Mode rate Lacy Manzanares APRN.CNS 08/19/2021 10:20 AM Signed Schedule a follow up with Dr Bentley. Referring Provider: SELF [[id number]] Allergies As of Date: 08/19/2021 Noted Allergy Reaction WELLBUTRIN SR (BUPROPION) 05/08/2008 1 - Mental Status Change Comments: made me hallucinate Date Reviewed: 08/19/2021 Reviewed by: Racheal Lopez LPN - Fully Assessed Reason for Visit: Medication Follow-up [270] Primary Visit Diagnosis:COPD, severe ( HCC) [J44.9] Other Visit Diagnoses:Encounter for sc reening for lung cancer [Z12.2] Need for shingles vaccine [Z23] Encounter for immunization [Z23] Chronic bronchitis, unspecified chroni c bronchitis type (HCC) [J42] Tobacco use disorder [F17.200] Hypoxia [R09.02] Gastroesophageal reflux disease withou t esophagitis [K21.9] PAD (peripheral artery disease) ([facility]) [I73.9] Gastroesophageal reflux disease withou t esophagitis [K21.9] Comment:needs to take or gets trouble swallowing Compression fracture of T5 vertebra, i nitial encounter ([facility]) [S22.050A] Closed fracture of multiple ribs of ri ght side with routine healing [S22.41XD] Need for financial support [Z59.9] Essential hypertension [I10] Reactive depression [F32.9] Generalized anxiety disorder [F41.1] Order(s):CBC + DIFF [SQCBCDIF] Order #: [id number] FUTURE COMP METABOLIC PANEL [SQCMP] Order #: [id number] FUTURE TSH BLD [SQTSH] Order #: [id number] FU TURE MAGNESIUM BLD [SQMG1] Order #: [id number] FUTURE VITAMIN B12 BLOOD [SQB12] Order #: [id number] FUTURE atorvastatin (LIPITOR) 10 mg tabletTak e 1 tablet by mouth once daily.Disp: 30 tabletRfl: 5 amLODIPine (NORVASC) 2.5 mg tabletTak e 1 tablet by mouth once daily.Disp: 30 tabletRfl: 5 citalopram (CELEXA) 20 mg tabletTake 1 tablet by mouth once daily.Disp: 30 tabletRfl: 5 losartan (COZAAR) 50 mg tabletTake 1 t ablet by mouth twice daily.Disp: 60 tabletRfl: 5 omeprazole (PRILOSEC) 40 mg capsuleTak e 1 capsule by mouth once daily.Disp: 30 capsuleRfl: 5 ibuprofen (MOTRIN) 800 mg tabletTake 1 tablet by mouth every 8 hours as needed for pain (back). Take with f oodDisp: 60 tabletRfl: 2 gabapentin (NEURONTIN) 300 mg capsuleT kam 1 capsule by mouth twice daily for 90 days.Disp: 60 capsuleRfl: 5 PRIMARY CARE SOCIAL WORK CONSULT [0188 140] Order #: [id number]: 1 FUTURE Prescriptions as of 08/19/2021 - atorvastatin (LIPITOR) 10 mg tablet Take 1 tablet by mouth once daily. - amLODIPine (NORVASC) 2.5 mg tablet Take 1 tablet by mouth once daily. - citalopram (CELEXA) 20 mg tablet Take 1 tablet by mouth once daily. - losartan (COZAAR) 50 mg tablet Take 1 tablet by mouth twice daily. - omeprazole (PRILOSEC) 40 mg capsule Take 1 capsule by mouth once daily. - ibuprofen (MOTRIN) 800 mg tablet Take 1 tablet by mouth every 8 hours a s needed for pain (back). Take with food - gabapentin (NEURONTIN) 300 mg capsule Take 1 capsule by mouth twice daily fo r 90 days. - ruvxilekscq-rkvsqfycv-lklehqqg (TRELE GY ELLIPTA) 100-62.5-25 mcg inhalation powder Inhale 1 Puff as instructed once daily . - aspirin 81 mg chewable tablet Take 1 tablet by mouth once daily. - Food Supplement, Lactose-Free (ENSURE ACTIVE HIGH PROTEIN) liqd Take 237 mL by mouth once daily. - albuterol HFA (VENTOLIN HFA) 90 mcg/a ctuation inhaler Inhale 2 Puffs as instructed every 4 h ours as needed. -active - HYDROcodone-acetaminophen (NORCO) 5-3 25 mg per tablet Take 1 tablet by mouth every 12 hours as needed for pain (Severe pain) for up to 7 days. - Ciclopirox (PENLAC) 8 % solution Apply to affected area once daily. TO AFFECTED AREA. - ketoconazole (NIZORAL) 2 % cream Apply 1 application to affected area o nce daily. To rash on legs and feet for 2 weeks at least and continue for 1 w [place] after rash resolves. - promethazine (PHENERGAN) 6.25 mg/5 mL syrup Take 5-10 mL by mouth four times daily as needed for Nausea/Vomiting (and cough). - nabumetone (RELAFEN) 500 mg tablet Take 1 tablet by mouth twice daily. - diclofenac sodium (VOLTAREN) 1 % topi philip gel Apply 2 grams to affected area four ti mes daily. - PREDNISONE ORAL Take by mouth. See Taper instructions. - guaiFENesin (MUCINEX) 600 mg 12 hr ta blet Take 2 tablets by mouth twice daily as needed for Cold/Allergy Symptoms. - COMPOUNDED PRESCRIPTION Overnight pulse oximetry-- J42 Chronic bronchitis, R09.02hypoxemia - cholecalciferol (VITAMIN D3) 1,000 un it tab tablet Take 1 tablet by mouth once daily. - polyethylene glycol 3350 (MIRALAX, GL YCOLAX) 17 gram packet Take 1 Packet by mouth once daily. - thiamine (VITAMIN B1) 100 mg tablet Take 1 tablet by mouth three times irma ly. - albuterol (PROVENTIL) 2.5 mg /3 mL (0 .083 %) nebulizer solution Use 3 mL via nebulizer every 4 hours a s needed for Wheezing/Shortness of Breath. Use over 5-15minutes. - COMPOUNDED PRESCRIPTION Nebulizer for home use. Dx: chronic br onchitis Meds Comments as of 09/02/2018: 09/02/18 The medications are managed by this patient by: PATIENT Janell Awad [facility] Problem List As Of Date 08/19/2021 Note d Resolved COLLES' FRACTURE-CLOSED [S52.539A] 09/28/2005 RADIAL STYLOID TENOSYNOV [M65.4] 06/2809/28/2005 FX LATERAL MALLEOLUS-CLOSE [S82.63XA] 11/08/2005 09/18/2007 Chronic bronchitis (HCC) [J42] 007 INSOMNIA, intermittent [G47.00] 2006 Tobacco use disorder [F17.200] 007 Acute sinusitis, unspecified [J01.90] 02/06/2008 06/13/2017 Reactive depression [F32.9] 02/06/2008 GENERALIZED ANXIETY DIS [F41.1] 2007 GLAUCOMA NOS [H40.9] 02/06/2008 ALLERGIC RHINITIS NOS [J30.9] 05/08/19 09 FAMILY HX GI MALIGNANCY [Z80.0] 2008 DYSPHAGIA NEC [R13.19] 08/25/2008 UNSP ABNORMAL MAMMOGRAM [R92.8] 2008 DUODENITIS W/O HEMORRHAGE [K29.80] ACUTE GASTRITIS W/O HEMORRHAGE [K29.00 ] 09/14/2008 Unspecified Disorder of Skin and Subcu taneous T*12/01/2008 Helicobacter Pylori 12/08/2008 Benign Neoplasm of Skin of Trunk, exce pt Scrotu*12/09/2008 Fracture of right distal radius [S52.5 01A] 07/24/2012 11/24/2014 Ankle fracture [S82.899A] 11/24/2014 Essential hypertension [I10] 7 Gastroesophageal reflux disease withou t esophag*10/20/2017 Compression fracture of T5 vertebra (H CC) [S22.*08/24/2018 Trauma [T14.90XA] 08/27/2018 Fall from ladder [W11.XXXA] 08/27/2018 Closed fracture of multiple ribs of ri ght side *08/27/2018 Wheezing [R06.2] 08/27/2018 Hypoxia [R09.02] 08/27/2018 Back pain [M54.9] 09/2018 Incidental lung nodule, greater than o r equal t*11/04/2019 COPD, severe (HCC) [J44.9] 11/04/2019 Tension pneumothorax [J93.0] 0 Chronic respiratory failure with hypox ia (HCC) *12/25/2019 Community acquired pneumonia of left l ower lobe*12/25/2019 Cervical spondylosis without myelopath y [M47.81*03/02/2020 05/27/2020 Lumbosacral spondylosis without myelop athy [M47*03/02/2020 05/27/2020 Other instructions from your clinician : Schedule a follow up with Dr Bentley. Prescriptions ordered this encounter Di sp Refills Start End ATORVASTATIN 10 MG TABLET 30 t* 07/25 Route: ORAL Sig: Take 1 tablet by mouth once daily . AMLODIPINE 2.5 MG TABLET 30 t* 5 08/19 Route: ORAL Sig: Take 1 tablet by mouth once daily . CITALOPRAM 20 MG TABLET 30 t* 5 2021 Route: ORAL Sig: Take 1 tablet by mouth once meaghan y. LOSARTAN 50 MG TABLET 60 t* 5 08/20/19 22 Route: ORAL Sig: Take 1 tablet by mouth twice meaghan y. OMEPRAZOLE 40 MG CAPSULE,DELAYED REL* 30 c* 5 08/19/2021 Route: ORAL Sig: Take 1 capsule by mouth once meaghan y. IBUPROFEN 800 MG TABLET 60 t* 2 08/19 Route: ORAL Sig: Take 1 tablet by mouth every 8 ho urs as needed for pain (back). Take with food GABAPENTIN 300 MG CAPSULE 60 c* 5 05/2 09/2021 11/17/2021 Route: ORAL Sig: Take 1 capsule by mouth twice irma ly for 90 days. Medications Discontinued During This En counter Prescriptions - gabapentin (NEURONTIN) 300 mg capsule (Discontinued) Take 1 capsule by mouth twice daily fo r 90 days. - ibuprofen (MOTRIN) 800 mg tablet (Dis continued) Take 1 tablet by mouth every 8 hours as needed for pain (back). - atorvastatin (LIPITOR) 10 mg tablet ( Discontinued) Take 1 tablet by mouth once daily. - amLODIPine (NORVASC) 2.5 mg tablet (D iscontinued) Take 1 tablet by mouth once daily. - citalopram (CELEXA) 20 mg tablet (Di scontinued) Take 1 tablet by mouth once daily. - losartan (COZAAR) 50 mg tablet (Disco ntinued) Take 1 tablet by mouth twice daily. - omeprazole (PRILOSEC) 40 mg capsule ( Discontinued) Take 1 capsule by mouth once daily. Follow-up and Disposition History for E ncounter Date Provider Department Center 08/19/2021 [id number] Encounter Status:Closed by INDIO MANZANARES I on 08/19/21 IVETTE Observed: 08/09/2021 12:00 AM Status: COMPLETED Source: [facility] REPOSITOR Y Letter Text CNPN Observed: 07/05/2021 12:00 AM Status: COMPLETED Source: [facility] REPOSITOR Y Telephone (OLGAWS) DALIA MENDES ([id number]) 1955 F Date Time Provider Department 07/05/21 SELWYN GARCIA During your visit today, we recorded t he following information about you: Hafsa Dianna 07/05/2021 9:11 AM Signed Pt is requesting to have Virtussin AC L iquid Vir refilled (generic for Guaifenesin AC). This was not an option for me to select, so I am noting it here. Please call pt if this is possibl e. Thank you, Hafsa Garcia MD 07/06/2021 7:52 PM Signed Just got RX for this on 06/16/21. Will okay this RX but if cough is sever e enough that this does not last till her appointment with Lacy, should be s een to determine the cause for the severe cough needing to take this med f or that often. The following approved medication reque sts have been transmitted electronically. Signed Prescriptions Disp Refills codeine-guaiFENesin (GUAIFENESIN AC) 1 0-100 mg/5 mL syrup 236 mL 0 Sig: Take 5-10 mL by mouth four times daily as needed for up to 7 days. JOAQUÍN Class: C-V WILBERT: No Authorizing Provider: SELWYN GARCIA MD Amanda Babulski, RN 07/07/2021 8:53 AM S igned Called and left a voicemail for the Pat ient to call back and ask for a nurse to receive the providers message. RADHA Fitzgerald RN 07/07/2021 11:55 AM Signed Patient returns call and provider messa ge below given. Patient verbalizes understanding. Adriana Bergeron RN Allergies As of Date: 07/05/2021 Noted Allergy Reaction WELLBUTRIN SR (BUPROPION) 05/08/2008 1 - Mental Status Change Comments: made me hallucinate Date Reviewed: 12/13/2020 Reviewed by: Racheal Lopez LPN - Fully Assessed Reason for Visit: Refill Request [94] Visit Diagnoses:COPD, severe (HCC) [J44 .9] Cough [R05.9] Order(s):codeine-guaiFENesin (GUAIFENES IN AC) 10-100 mg/5 mL syrupTake 5-10 mL by mouth four times daily as needed fo r up to 7 days.Disp: 236 mLRfl: 0 Prescriptions as of 07/07/2021 - codeine-guaiFENesin (GUAIFENESIN AC) 10-100 mg/5 mL syrup Take 5-10 mL by mouth four times daily as needed for up to 7 days. - aspirin 81 mg chewable tablet Take 1 tablet by mouth once daily. - atorvastatin (LIPITOR) 10 mg tablet Take 1 tablet by mouth once daily. - amLODIPine (NORVASC) 2.5 mg tablet Take 1 tablet by mouth once daily. - citalopram (CELEXA) 20 mg tablet Take 1 tablet by mouth once daily. - losartan (COZAAR) 50 mg tablet Take 1 tablet by mouth twice daily. - omeprazole (PRILOSEC) 40 mg capsule Take 1 capsule by mouth once daily. - gcbrbcbsyjg-zmkdmuqmo-svycrdho (TRELE GY ELLIPTA) 100-62.5-25 mcg Inhale 1 Puff as instructed once daily . - ibuprofen (MOTRIN) 800 mg tablet Take 1 tablet by mouth every 8 hours a s needed for pain (back). - Food Supplement, Lactose-Free (ENSURE ACTIVE HIGH PROTEIN) liqd Take 237 mL by mouth once daily. - albuterol HFA (VENTOLIN HFA) 90 mcg/a ctuation inhaler Inhale 2 Puffs as instructed every 4 h ours as needed. -active - gabapentin (NEURONTIN) 300 mg capsule Take 1 capsule by mouth twice daily fo r 90 days. - HYDROcodone-acetaminophen (NORCO) 5- 325 mg per tablet Take 1 tablet by mouth every 12 hours as needed for pain (Severe pain) for up to 7 days. - Ciclopirox (PENLAC) 8 % solution Apply to affected area once daily. TO AFFECTED AREA. - ketoconazole (NIZORAL) 2 % cream Apply 1 application to affected area o nce daily. To rash on legs and feet for 2 weeks at least and continue for 1 we ek after rash resolves. - promethazine (PHENERGAN) 6.25 mg/5 m L syrup Take 5-10 mL by mouth four times daily as needed for Nausea/Vomiting (and cough). - nabumetone (RELAFEN) 500 mg tablet Take 1 tablet by mouth twice daily. - diclofenac sodium (VOLTAREN) 1 % topi philip gel Apply 2 grams to affected area four ti mes daily. - PREDNISONE ORAL Take by mouth. See Taper instructions. - guaiFENesin (MUCINEX) 600 mg 12 hr t ablet Take 2 tablets by mouth twice daily as needed for Cold/Allergy Symptoms. - COMPOUNDED PRESCRIPTION Overnight pulse oximetry-- J42 Chronic bronchitis, R09.02hypoxemia - cholecalciferol (VITAMIN D3) 1,000 un it tab tablet Take 1 tablet by mouth once daily. - polyethylene glycol 3350 (MIRALAX, GL YCOLAX) 17 gram packet Take 1 Packet by mouth once daily. - thiamine (VITAMIN B1) 100 mg tablet Take 1 tablet by mouth three times irma ly. - albuterol (PROVENTIL) 2.5 mg /3 mL ( 0.083 %) nebulizer solution Use 3 mL via nebulizer every 4 hours a s needed for Wheezing/Shortness of Breath. Use over 5-15minutes. - COMPOUNDED PRESCRIPTION Nebulizer for home use. Dx: chronic br onchitis Meds Comments as of 09/02/2018: 09/02/18 The medications are managed by this patient by: PATIENT Janell Awad [facility] Problem List As Of Date 07/05/2021 Note d Resolved COLLES' FRACTURE-CLOSED [S52.539A] 09/28/2005 RADIAL STYLOID TENOSYNOV [M65.4] 06/2809/28/2005 FX LATERAL MALLEOLUS-CLOSE [S82.63XA] 11/08/2005 09/18/2007 Chronic bronchitis (HCC) [J42] 2006 INSOMNIA, intermittent [G47.00] 12/17 Tobacco use disorder [F17.200] 007 Acute sinusitis, unspecified [J01.90] 02/06/2008 06/13/2017 Reactive depression [F32.9] 02/06/2008 GENERALIZED ANXIETY DIS [F41.1] 2007 GLAUCOMA NOS [H40.9] 02/06/2008 ALLERGIC RHINITIS NOS [J30.9] 05/08/19 09 FAMILY HX GI MALIGNANCY [Z80.0] 2008 DYSPHAGIA NEC [R13.19] 08/25/2008 UNSP ABNORMAL MAMMOGRAM [R92.8] 2008 DUODENITIS W/O HEMORRHAGE [K29.80] ACUTE GASTRITIS W/O HEMORRHAGE [K29.00 ] 09/14/2008 Unspecified Disorder of Skin and Subcu taneous T*12/01/2008 Helicobacter Pylori 12/08/2008 Benign Neoplasm of Skin of Trunk, exce pt Scrotu*12/09/2008 Fracture of right distal radius [S52.5 01A] 07/24/2012 11/24/2014 Ankle fracture [S82.899A] 11/24/2014 Essential hypertension [I10] 7 Gastroesophageal reflux disease withou t esophag*10/20/2017 Compression fracture of T5 vertebra (H CC) [S22.*08/24/2018 Trauma [T14.90XA] 08/27/2018 Fall from ladder [W11.XXXA] 08/27/2018 Closed fracture of multiple ribs of ri ght side *08/27/2018 Wheezing [R06.2] 08/27/2018 Hypoxia [R09.02] 08/27/2018 Back pain [M54.9] 09/2018 Incidental lung nodule, greater than o r equal t*11/04/2019 COPD, severe (HCC) [J44.9] 11/04/2019 Tension pneumothorax [J93.0] 0 Chronic respiratory failure with hypox ia (HCC) *12/25/2019 Community acquired pneumonia of left l ower lobe*12/25/2019 Cervical spondylosis without myelopath y [M47.81*03/02/2020 05/27/2020 Lumbosacral spondylosis without myelop athy [M47*03/02/2020 05/27/2020 Prescriptions ordered this encounter Di sp Refills Start End CODEINE 10 MG-GUAIFENESIN 100 MG/5 M* 236 * 0 07/06/2021 07/13/2021 Route: ORAL Sig: Take 5-10 mL by mouth four times daily as needed for up to 7 days. Medications Discontinued During This En counter Prescriptions - codeine-guaiFENesin (GUAIFENESIN AC) 10-100 mg/5 mL syrup (Discontinued) Take 5-10 mL by mouth four times daily as needed for up to 7 days. Encounter Status:Closed by ADRIANA BERGERON on 07/07/21 VIOLA Observed: 01/19/2021 12:00 AM Status: COMPLETED Source: [facility] REPOSITOR Y Telephone (INTMWS) VAUGHNDALIA ([id number]) 1955 F Date Time Provider Department 01/19/21 SELWYN GARCIAWS During your visit today, we recorded t he following information about you: Cristine Escalante RN 01/19/2021 12:32 PM S apolinar Randall- [facility]- reports, patient infor med her she is having left rib cage pain 12/03 for a couple days. Reports patient completed prednisone on 01-15, and is taking ibuprofen 800 mg prn for the ri b cage pain. Reports patient fell today and hit that area. No bruising. LCTA. Patient does have a cough, which causes the rib pain. Reports patient is a heavy smoker. Tonia advised patient to ER if the pain gets worse. Lacy Manzanares APRN.MANAGER OF CORPORATE 01/21/2021 3:05 PM Signed Noted, agree Allergies As of Date: 01/19/2021 Noted Allergy Reaction WELLBUTRIN SR (BUPROPION) 05/08/2008 1 - Mental Status Change Comments: made me hallucinate Date Reviewed: 12/13/2020 Reviewed by: Racheal Lopez LPN - Fully Assessed Reason for Visit: Left rib pain [Other] Prescriptions as of 01/21/2021 - djduwkhboca-pgmgzbhez-qqnplkgh (TRELE GY ELLIPTA) 100-62.5-25 mcg Inhale 1 Puff as instructed once meaghan y. - ibuprofen (MOTRIN) 800 mg tablet Take 1 tablet by mouth every 8 hours a s needed for pain (back). - Food Supplement, Lactose-Free (ENSURE ACTIVE HIGH PROTEIN) liqd Take 237 mL by mouth once daily. - albuterol HFA (VENTOLIN HFA) 90 mcg/ actuation inhaler Inhale 2 Puffs as instructed every 4 h ours as needed. -active - gabapentin (NEURONTIN) 300 mg capsule Take 1 capsule by mouth twice daily fo r 90 days. - HYDROcodone-acetaminophen (NORCO) 5-3 25 mg per tablet Take 1 tablet by mouth every 12 hours as needed for pain (Severe pain) for up to 7 days. - Ciclopirox (PENLAC) 8 % solution Apply to affected area once daily. TO AFFECTED AREA. - aspirin 81 mg chewable tablet Take 1 tablet by mouth once daily. - atorvastatin (LIPITOR) 10 mg tablet Take 1 tablet by mouth once daily. - amLODIPine (NORVASC) 2.5 mg tablet Take 1 tablet by mouth once daily. - citalopram (CELEXA) 20 mg tablet Take 1 tablet by mouth once daily. - losartan (COZAAR) 50 mg tablet Take 1 tablet by mouth twice daily. - omeprazole (PRILOSEC) 40 mg capsule Take 1 capsule by mouth once daily. - ketoconazole (NIZORAL) 2 % cream Apply 1 application to affected area o nce daily. To rash on legs and feet for 2 weeks at least and continue for 1 we ek after rash resolves. - promethazine (PHENERGAN) 6.25 mg/5 m L syrup Take 5-10 mL by mouth four times daily as needed for Nausea/Vomiting (and cough). - nabumetone (RELAFEN) 500 mg tablet Take 1 tablet by mouth twice daily. - diclofenac sodium (VOLTAREN) 1 % topi philip gel Apply 2 grams to affected area four ti mes daily. - PREDNISONE ORAL Take by mouth. See Taper instructions. - guaiFENesin (MUCINEX) 600 mg 12 hr t ablet Take 2 tablets by mouth twice daily as needed for Cold/Allergy Symptoms. - COMPOUNDED PRESCRIPTION Overnight pulse oximetry-- J42 Chronic bronchitis, R09.02hypoxemia - cholecalciferol (VITAMIN D3) 1,000 un it tab tablet Take 1 tablet by mouth once daily. - polyethylene glycol 3350 (MIRALAX, GL YCOLAX) 17 gram packet Take 1 Packet by mouth once daily. - thiamine (VITAMIN B1) 100 mg tablet Take 1 tablet by mouth three times irma ly. - albuterol (PROVENTIL) 2.5 mg /3 mL ( 0.083 %) nebulizer solution Use 3 mL via nebulizer every 4 hours a s needed for Wheezing/Shortness of Breath. Use over 5-15minutes. - COMPOUNDED PRESCRIPTION Nebulizer for home use. Dx: chronic br onchitis Meds Comments as of 09/02/2018: 09/02/18 The medications are managed by this patient by: PATIENT Janell J [facility] Problem List As Of Date 01/19/2021 Note d Resolved COLLES' FRACTURE-CLOSED [S52.539A] 09/28/2005 RADIAL STYLOID TENOSYNOV [M65.4] 06/2809/28/2005 FX LATERAL MALLEOLUS-CLOSE [S82.63XA] 11/08/2005 09/18/2007 Chronic bronchitis (HCC) [J42] 2006 INSOMNIA, intermittent [G47.00] 12/17 Tobacco use disorder [F17.200] 007 Acute sinusitis, unspecified [J01.90] 02/06/2008 06/13/2017 Reactive depression [F32.9] 8 GENERALIZED ANXIETY DIS [F41.1] 2007 GLAUCOMA NOS [H40.9] 02/06/2008 ALLERGIC RHINITIS NOS [J30.9] 05/08/19 09 FAMILY HX GI MALIGNANCY [Z80.0] 2008 DYSPHAGIA NEC [R13.19] 08/25/2008 UNSP ABNORMAL MAMMOGRAM [R92.8] 2008 DUODENITIS W/O HEMORRHAGE [K29.80] ACUTE GASTRITIS W/O HEMORRHAGE [K29.00 ] 09/14/2008 Unspecified Disorder of Skin and Subcu taneous T*12/01/2008 Helicobacter Pylori 12/08/2008 Benign Neoplasm of Skin of Trunk, exce pt Scrotu*12/09/2008 Fracture of right distal radius [S52.5 01A] 07/24/2012 11/24/2014 Ankle fracture [S82.899A] 11/24/2014 Essential hypertension [I10] 7 Gastroesophageal reflux disease withou t esophag*10/20/2017 Compression fracture of T5 vertebra (H CC) [S22.*08/24/2018 Trauma [T14.90XA] 08/27/2018 Fall from ladder [W11.XXXA] 08/27/2018 Closed fracture of multiple ribs of ri ght side *08/27/2018 Wheezing [R06.2] 08/27/2018 Hypoxia [R09.02] 08/27/2018 Back pain [M54.9] 09/2018 Incidental lung nodule, greater than o r equal t*11/04/2019 COPD, severe (HCC) [J44.9] 11/04/2019 Tension pneumothorax [J93.0] 0 Chronic respiratory failure with hypox ia (HCC) *12/25/2019 Community acquired pneumonia of left l ower lobe*12/25/2019 Cervical spondylosis without myelopath y [M47.81*03/02/2020 05/27/2020 Lumbosacral spondylosis without myelop athy [M47*03/02/2020 05/27/2020 Encounter Status:Closed by INDIO MANZANARES I on 01/21/21 ALLERGIES ALLERGIES DATE TYPE / CODE NAME / CODE REACTION SEVERITY SOURCE 05/08/2008 DRUG BUPROPION [facility] INGREDI/[id number] Finn zarate (SNOMED CT) ENCOUNTERS ENCOUNTERS ADMIT/DISCHARGE ACCOUNT NUMBER ADMITTING ENCOUNTER LOCATION SOUR E CLASS 12/13/2021/ [id number] Ambulatory [address] ing:WOIA 08/31/2021/ [id number] [address] ing:WOLB 08/19/2021/ [id number] [address] ing:KAVITA PAYERS PAYERS ENCOUNTER GUARANTOR PAYER SUBSCRIBER SOURCE 12/13/2021 [facility] MEDICAIDPolicy Number: ERIKA: [place] [facility] [id number] Date:4311-21-20Djru URMILA MENDEZ, Name:[place] [address] 08/31/2021 Primary DALIA Fledman [facility] Insurance:CELSO JAMES: [facility] [id number] Number: URMILA MENDEZ [id number] [place] [address] Date:8118-14-23Oljd Name:N 08/31/2021 [facility]:[place] E[place]KA: [place] MEDICAIDPolicy Number: [id number] URMILA RDWOOSTER, Date:8543-48-46Te[place] [address] Name:X 08/19/2021 Primary DALIA [facility] Insurance:CELSO JAMES: [facility] [id number] Number: URMILA VANESSA, [id number] [place] [address] Date:[id number] Name:N 08/19/2021 Secondary DALIA [facility] [place] MEDICAIDPolicy Number: [id number] URMILA RDWOOSTER, Date:7717-95-31[place]ko [place] [address] Name:Albert
[2022-01-17 20:01] VITALS: BP 115/83; PULSE 85; RESP 20; O2SAT 100
--- OUTSIDE RECORDS SUMMARY | 2022-01-17 20:07 | XMS RPT_ITS ---
[...] disorder / NA [facility] F17.200(ICD-10) [place] 08/29/2018 Active Chronic bronchitis, NA Active [facility] unspecified chronic [facility] bronchitis type (HCC) / J42(ICD-10) 10/20/2017 Active Gastroesophageal reflux NA Active [facility] disease without Araujo esophagitis / K21.9(ICD-10) 06/13/2017 Active Reactive depression / NA Active [facility] F32.9(ICD-10) [place] 02/06/2008 Active Generalized anxiety NA Active [facility] disorder / F41.1(ICD-10) [place] 11/04/2019 Active COPD, severe (HCC) / LACY MANZANARES Active [facility] J44.9(ICD-10) [place] 08/29/2018 Active Hypoxia / R09.02(ICD-10) BENI LACY Active [facility] 08/29/2018 Active Closed fracture of LACY MANZANARES Active [facility] multiple ribs of right Cl [place] side with routine healing / S22.41XD(ICD-10) 08/29/2018 Active Compression fracture of MANZANARESLACY Active [facility] T5 vertebra, initial Clev and encounter (HCC) / S22.050A(ICD-10) 02/27/2017 Active Essential hypertension / BENI LACY Active [facility] I10(ICD-10) [place] 08/19/2021 Active Encounter for screening MANZANARES, LACY Active [facility] for lung cancer / [place] nd Z12.2(ICD-10) 08/19/2021 Active Need for shingles LACY [facility]ARES [facility] / Z23(ICD-10) [facility] 08/19/2021 Active Encounter for LACY MANZANARES Active [facility] immunization / Araujo Z23(ICD-10) 08/19/2021 Active PAD (peripheral artery LACY MANZANARES Active [facility] disease) (HCC) / [facility] I73.9(ICD-10) 08/19/2021 Active Need for financial LACY MANZANARES Active [facility] support / Z59.9(ICD-10) [facility] PROCEDURES PROCEDURES No Procedure Records FoundRESULTS RESULTS PROGRESS Observed: 01/02/2022 9:19 AM Status: COMPLETED S ource: [facility] GER MORGAN HNO ID: [id number] Author: Marion Davis RN Service: ? Author Type: Registered Nurse Type: Progress Notes Filed: 01/02/2022 1:08 PM Note Text: [facility] CDM Enrollment Provider Action/FYI: h/o COPD I spoke with patient and she is in Pall iative Care/ Hospice She is not sure which one but believes she is in Hospice ([facility] [place]) Patient referred by: [facility] Marisol Contact made with patient: Yes - Patien t identified by name and . Discussed care with patient Bernardo this is Marion Davis RN and I am calling from Selwyn Garcia MD office at the [facility]. I am a RN Manager Linux with our [facility] Chronic Disease Management prog [...] questio ns once a week through your [employer] account. It will automatically show up for [...] Observed: 01/02/2022 12:00 Status: COMPLETED Rose rce: [facility] Patient Outreach ([facility]) DALIA MENDES ([id number]) 1955 F Date Time Provider Department 01/02/22 MARION DAVIS During your visit today, we recorded t he following information about you: Marion Davis RN 01/02/2022 1:08 PM S igned [facility] Enrollment Provider Action/FYI: h/o COPD I spoke with patient and she is in Pall iative Care/ Hospice She is not sure which one but believes she is in Hospice ([facility] [place]) Patient referred by: [facility] Marisol Contact made with patient: Yes - Patien t identified by name and . Discussed care with patient Bernardo this is Marion Davis, RADHA and I am calling from Selwyn Garcia MD office at the [facility]. I am a RN Manager Linux with our [facility] Chronic Disease Management program. [...] few questions once a week through your [employer] accoun t. It will automatically show up [...] 1 tablet by mouth once daily. - qyuvgerzxmd-gyxuvtcgr-gjnglgfq (TRELE GY ELLIPTA) 100-62.5-25 mcg inhalation powder [...] Observed: 12/15/2021 12:00 AM Status: COMPLETED Source: [facility] REPOSITOR Y Telephone (INTMWS) DALIA MENDES ([id number]) 1955 F Date Time Provider Department 12/15/21 [...] last ov on 12-13-21 [facility] [place] [facility] Biopsy would have to occur within 30 days of H AND P visit. Once they review the notes will call patient to schedule. Lacy Manzanares APRN.TRANSMISSION LINE ENGINEER 12/20/2021 7:31 A M Signed Has this been done? If not get paperwor k so I can review and send Kaylyn Wallace Ma 12/26/2021 11:00 AM Signed The are requesting office note dated stating she is cleared for biopsy. Office note needs completed and signed, nothing noted about biospy at this time Selwyn Garcia MD 01/05/2022 2:38 PM Signed Print completed [...] 1 tablet by mouth once daily. - uogtnzbxydw-ytktewqjk-cswqyfqi (TRELE GY ELLIPTA) 100-62.5-25 mcg inhalation powder [...] 12/14/2021 2:36 PM Status: COMPLETED S ource: [facility] Mamta EDDIE HNO ID: [id number] Author: Joaquim Rodarte RN Service: ? Author Type: Registered Nurse Type: Progress Notes Filed: 12/14/2021 2:43 PM Note Text: [facility] CDM Enrollment Provider Action/FYI: 2nd Call to Pt, unable to leave a messa ge related to Insight / Chronic Disease Management program, will provid e [facility] info once reached. Patient referred by: [facility] Marisol Contact made with patient: No - 2nd att empt to reach patient, left another message: Hi my name is Aster duenas, RN and I am calling from the [facility] on behalf of your PCP, Selwyn Garcia [...] the patient after two a ttempted outreaches. Manager Linux to retry patient in one wetarsha patterson END OUTREACH Aster March RN December 14, 2021 2:36 PM LUIZTOSHARAD Observed: 12/14/2021 12:00 Status: COMPLETED Rose rce: [facility] S[facility] Patient Outreach ([facility]) DALIA MENDES ([id number]) 1955 F Date Time Provider Department 12/14/21 [...] Center info once reached. Patient referred by: [facility] Marisol Contact made with patient: No - 2nd att empt to reach patient, left another message: Hi my name is Aster duenas, RN and I am calling from the [facility] on behalf of your PCP, Selwyn Garcia [...] reach the patient after two attempted outreaches. Manager Linux to retry patient in one week. END [...] 1 tablet by mouth once daily. - uflvuthfmai-wqhvlxglv-ihmlybnm (TRELE GY ELLIPTA) 100-62.5-25 mcg inhalation powder [...] 12/13/2021 9:40 AM Status: COMPLETED S ource: [facility] REPOSITOR Y Office Visit (INTMWS) DALIA MENDES ([id number]) 1955 F Date Time Provider Department 12/13/21 9:40 AM SELWYN GARCIA INTMWS During your visit today, we recorded t he following information about you: Pulse Blood pressure Weight 97/minute 122/88 48.5 kg Selwyn Garcia MD 01/05/2022 2:37 PM Signed This note was created using Interview Masterriter. Subjective Dalia Mendes is a 66 year [...] SOB. Working with Dr. Kirill Bentley at [facility] (bander hand). Plans for lung biopsy discussed. Noted BP [...] by mouth twice daily for 90 days. ssgudnzwvsb-ilfrhvkge-jghhviyt (TRELEG Y ELLIPTA) 100-62.5-25 mcg inhalation powder [...] Abs Lymph 1.00 - 4.00 k/uL 1.25 Mclennan% % 13.3 Abs Mclennan <0.87 k/uL 0.77 Eosin% % 3.1 Abs [...] ICD1 0: J44.9 Continue follow up with bander hand. Okay cough med. - CODEINE 10 MG-GUAIFENESIN [...] Chronic respiratory failure with hy poxia--working with bander hand. 14. Protein-calorie malntutrition--work ing on getting more calories and protein in; noted that shortness of felton ath with eating limits her intake. Will try to get foods of lower volume with higher amounts of calories and protein. Cost an issue for supplements. Will con hostage negotiator working with SW as needed. Selwyn Garcia MD Referring Provider: SELWYN GARCIA [ [id number]] Allergies As of Date: 12/13/2021 Noted Allergy [...] or gets tro uble swallowing COPD, severe ([facility]) [J44.9] Cough [R05.9] Cervical spondylosis without myelopath y [M47.812] Lumbosacral spondylosis without myelo kelly [M47.817] Compression fracture of T5 vertebra wi th routine healing, subsequent encounter [S22.050 D] Closed fracture of multiple ribs of ri ght side with routine healing [S22.41XD] Chronic respiratory failure with hypox ia ([facility]) [J96.11] Protein-calorie malnutrition, unspecif ied severity ([facility]) [E46] Order(s):atorvastatin (LIPITOR) 10 mg t abletTake 1 tablet by mouth once daily.Disp: 30 tabletRfl: 5 citalopram (CELEXA) 20 mg tabletTake 1 tablet by mouth once daily.Disp: 30 tabletRfl: 5 qwsewxzsnre-kggsufsie-arcpvfhx (TRELE GY ELLIPTA) 100-62.5-25 mcg inhalation powderInhale [...] 1 tablet by mouth once daily. - qqdrbethrww-izyyqxutn-qrmxhvgg (TRELE GY ELLIPTA) 100-62.5-25 mcg inhalation powder [...] Nebulizer for home use. Dx: chronic b [facility] Meds Comments as of 09/02/2018: 09/02/18 The [...] needed for up to 7 days. - kldbiksolsl-kffwbwaby-nogqaete (TRELE GY ELLIPTA) 100-62.5-25 mcg inhalation powder [...] OFFICE/OUTPATIENT EST ABLISHED MOD MDM 30-39 MIN [87160] Disposition: Return in about 6 months (around 06/12/2022) for 6 months follow up. Follow-up and Disposition History for E ncounter Date Provider Department Center 12/13/2021 [id number] GARCIA INTMWS [facility] Encounter Status:Closed by ANUSHA GARCIA on 01/05/22 PROGRESS Observed: 12/13/2021 9:40 AM Status: COMPLETED S ource: [facility] HNO ID: [id number] Author: Selwyn Garcia MD Service: ? Author Type: Physician Type: Progress Notes Filed: 01/05/2022 2:37 PM Note Text: This note was created using Interview Masterriter. Subjective Dalia Mendes is a 66 year [...] SOB. Working with Dr. Kirill Bentley at [facility] (bander hand). Plans for lung biopsy discussed. Noted BP [...] in fall. Chronic obstructive pulmonary disease (COPD) ([facility]) Dysphagia, unspecified(787.20) Emphysema lung ([facility]) Hypertension INSOMNIA, intermittent 12/17/2006 stress related Unspecified chronic bronchitis ([facility]) Current Outpatient Medications Medication Sig atorvastatin [...] by mouth twice daily for 90 days. xosjdrlmayr-vpzlayhlc-dzxcudde (TRELEG Y ELLIPTA) 100-62.5-25 mcg inhalation powder [...] Abs Lymph 1.00 - 4.00 k/uL 1.25 Mclennan% % 13.3 Abs Mclennan <0.87 k/uL 0.77 Eosin% % 3.1 Abs [...] ICD1 0: J44.9 Continue follow up with bander hand. Okay cough med. - CODEINE 10 MG-GUAIFENESIN [...] Chronic respiratory failure with hy poxia--working with bander hand. 14. Protein-calorie malntutrition--work ing on getting more calories and protein in; noted that shortness of felton ath with eating limits her intake. Will try to get foods of lower volume w ith higher amounts of calories and protein. Cost an issue for supplements. Will consider working with SW as needed. Selwyn Garcia MD CNPN Observed: 12/05/2021 12:00 AM Status: COMPLETED Source: [facility] REPOSITOR Y Telephone (INTMWS) DALIA MENDES ([id number]) 1955 F Date Time Provider Department 12/05/21 SELWYN GARCIA INTCristineWS During your visit today, we recorded the following information about you: Sugey Amezcuakallie NECKTIE TURNER 12/05/2021 10:34 AM Signed Donya Nurse from [facility] calling was edwige ble to do lung [...] PM Sig elio Nurse from [facility] was given providers mess age and verbalized [...] 1 tablet by mouth once daily. - mzjafuymmns-qyuhrjafg-ghtbujbw (TRELE GY ELLIPTA) 100-62.5-25 mcg inhalation powder [...] Observed: 12/02/2021 12:23 Status: COMPLETED Rose rce: [facility] HNO ID: [id number] Author: Joaquim Rodarte, RADHA Service: ? Author Type: Registered Nurse Type: Progress Notes Filed: 12/02/2021 12:26 PM Note Text: [facility] CDM Enrollment Provider Action/FYI: Call to Pt, unable to leave a message related to Insight / Chronic Disease Management program, will provide [facility] info once reached. Patient referred by: [facility] Marisol Contact made with patient: No - Unable to leave message: (Keep encounter open and attempt 2nd outreach in two bu siness days from today). END OUTREACH Aster March RN December 02, 2021 12:23 PM CNPTOUTREACH Observed: 12/02/2021 12:00 Status: COMPLETED Rose rce: [facility] Patient Outreach ([facility]) DALIA MENDES ([id number]) 1955 F Date Time Provider Department 12/02/21 JOAQUIM RODARTE AMBDANNY During your visit today, we recorded t he following information about you: Aster March RN 12/02/2021 12:26 P M Signed [facility] CD Enrollment Provider Action/FYI: Call to Pt, unable to leave a message r elated to Insight / Chronic Disease Management program, will provide [facility] info once reached. Patient referred by: [facility] Marisol Contact made with patient: No - [...] Cmt: Initial CDM Outreach/ [facility] Prescriptions as of 12/02/2021 - [...] twice daily fo r 90 days. - zvlgjpkbmil-xjcwwmcxa-rpugwzql (TRELE GY ELLIPTA) 100-62.5-25 mcg inhalation powder [...] Observed: 11/25/2021 12:00 AM Status: COMPLETED Source: [facility] REPOSITOR Y Telephone (INTMWS) DALIA MENDES ([id number]) 1955 F Date Time Provider Department 11/25/21 SELWYN GARCIA INTMWS During your visit today, we recorded t he following information about you: Sugey Condon LPN 11/25/2021 9:48 AM S apolinar New from [facility] Lamp Shades Supervisor calling ask ing if any paper work patient needs to take to Dr Bentley-Remediation Project Engineer? Did not see anything in computer. Patient has appt scheduled today with Pulmonary off ice to update her HANDP for biopsy lung mass. Hoping patient does keep that kory t. Virgen works parts sales representative and gave her territory manager, Delmy phone number is [phone] if needed. Aware patient had cancelled her appt mid October with Lacy Manzanares LIVE TRUCK OPERATOR. Sugey oCndon LPN 11/25/2021 4:16 PM S igned Virgen [...] COPD? Can leave a message for Brody erazo on her voicemail, she can always get it from bander hand if PCP does n ot want to do it. Virgen is faxing copy of [employer] to the office al so. She had given me grand daughter Mikala phone number is [phone]. She thinks patient is having memory issues [...] 11:24 AM S igned Delmy [facility] ELBERT called and is notified of naren [...] for Visit: Patient Update [1234] Patient Question [9057] Prescriptions as of 11/29/2021 - atorvastatin (LIPITOR) [...] twice daily fo r 90 days. - oswuycpopfr-deimlhrsq-pcydgbgs (TRELE GY ELLIPTA) 100-62.5-25 mcg inhalation powder [...] Nebulizer for home use. [facility] Comments as of 09/02/2018: 09/02/18 The [...] 11/23/2021 2:04 PM Status: COMPLETED S ource: [facility] HNO ID: [id number] Author: Joaquim Rodarte RN Service: ? Author Type: Registered Nurse Type: Progress Notes Filed: 12/02/2021 12:20 PM Note Text: [facility] CDM Enrollment Provider Action/FYI: Call to Pt, unable to leave a message r elated to Insight / Chronic Disease Management program, will provide [facility] info once reached. Patient referred by: [facility] Marisol Contact made with patient: No - Unable to leave message: (Keep encounter open and attempt 2nd outreach in two sine days from today). END OUTREACH Aster March RN November 23, 2021 2:04 PM CNPTOUTREACH Observed: 11/23/2021 12:00 Status: COMPLETED Rose rce: [facility] Patient Outreach ([facility]) DALIA MENDES ([id number]) 1955 F Date Time Provider Department 11/23/21 JOAQUIM RODARTE AMBCMG During your visit today, we recorded t he following information about you: Aster March RN 12/02/2021 12:20 PM Signed [facility] CDM Enrollment Provider Action/FYI: Call to Pt, unable to leave a message r elated to Insight / Chronic Disease Management program, will provide [facility] at Home [facility] info once reached. Patient referred by: [facility] Marisol Contact made with patient: No - [...] obstruc tive pulmonary disease, unspecified COPD type ([facility]) [J44.9] Order(s):[facility] TO [facility] [[id number]] Order #: [id number]: 1 Prescriptions as of 12/02/2021 - atorvastatin [...] twice daily fo r 90 days. - kpscszvorbp-nomkysynh-vleabnzb (TRELE GY ELLIPTA) 100-62.5-25 mcg inhalation powder [...] Observed: 11/07/2021 12:00 AM Status: COMPLETED Source: [facility] REPOSITOR Y Telephone (INTMWS) DALIA MENDES ([id number]) 1955 F Date Time Provider Department 11/07/21 SELWYN GARCIA INTMWS During your visit today, we recorded t he following information about you: Cristine Escalante RN 11/07/2021 2:22 PM Dot zimmermanjesús CalleKaylyn - [facility] - phoned to see if manan worthington has seen pcp recently- they were hoping they could get an H AND P, to do lung biopsy tomorrow, for lung mass. Reports patient was scheduled for this 2 weeks ago, but no showed. The 2nd time [facility] scheduled patient, patient was instructed to be [...] 4:03 PM Sig elio Called [facility] radiology dept. They will be doing pts biopsy. They need an update HANDP. Pt missed several HANDP appts with Dr. Bentley the bander hand with [facility]. Called pt to review the HANDP should be completed with Dr. Bentley. Pt will contact his office to arrange. Selwyn Garcia MD 11/10/2021 3:59 PM S igned Noted. Selwyn Garcia MD Allergies As of Date: 11/07/2021 [...] twice daily fo r 90 days. - jaykroheark-msidamehw-kogamzio (TRELE GY ELLIPTA) 100-62.5-25 mcg inhalation powder [...] at least and continue for 1 w chicken ranch after rash resolves. - promethazine (PHENERGAN) 6.25 [...] Observed: 11/02/2021 12:00 Status: COMPLETED Rose rce: [facility] Patient Outreach (INTMMN) DALIA MENDES ([id number]) 1955 F Date Time Provider Department 11/02/21 SELWYN GARCIA INTMMN During your visit today, we recorded t he following information about you: Allergies As of Date: 11/02/2021 Noted Allergy Reaction WELLBUTRIN SR (BUPROPION) 05/08/2008 1 - Mental Status Change Comments: made me hallucinate Date Reviewed: 08/19/2021 Reviewed by: Racheal Lopez LPN - Fully Assessed Visit Diagnosis:Encounter for screening mammogram for breast cancer [Z12.31] Order(s):[facility] SCREENING [[id number]] Order #: [id number] FUTURE Prescriptions as of 11/07/2021 - atorvastatin [...] twice daily fo r 90 days. - ueydxftlzqe-huhhjzlgy-cnputlsh (TRELE GY ELLIPTA) 100-62.5-25 mcg inhalation powder [...] myelop athy [M47*03/02/2020 05/27/2020 Encounter Status:Closed by [employer] [facility] on 11/07/21 CNPN Observed: 09/01/2021 12:00 AM Status: COMPLETED Source: [facility] REPOSITOR Y Telephone (INTMWS) DALIA MENDES ([id number]) 1955 F Date Time Provider Department 09/01/21 LACY MANZANARES During your visit today, we recorded t he following information about you: Lacyfatoumata Manzanares APRN.TRANSMISSION LINE ENGINEER 09/01/2021 4:49 PM Signed Please let he [...] Abs Lymph 1.00 - 4.00 k/uL 1.25 Mclennan% % 13.3 Abs Mclennan <0.87 k/uL 0.77 Eosin% % 3.1 Abs [...] twice daily fo r 90 days. - ofqhuevffcx-jlyclyppq-wlmicnoq (TRELE GY ELLIPTA) 100-62.5-25 mcg inhalation powder [...] at least and continue for 1 w chicken ranch after rash resolves. - promethazine (PHENERGAN) 6.25 [...] Collected: 08/31/2021 8:25 Status: Maday Feldman ource: [facility] Order Comment: Specimen Type: BLOOD SP ECIMEN Ordering Facility: [facility] Address: [address] [place] [address], [facility] [address] TYPE CODE TESTS RESULT OUT OF REFERENCE [...] MCHC RBC 32.7 30.5-36.0 g/dL Auto-mCnc LAB 06165-3(LOINC) RDW RBC-Rto 13.2 11.5-15.0 % LAB 777-3(LOINC) Platelet # Bld 390 150-400 k/uL Auto LAB 14005-0(LOINC) PMV Bld Auto 10.1 9.0-12.7 fL LAB [...] GRAN <0.03 <0.10 k/u L ABS LAB 85228-9([facility]) nRBC/100 WBC 0.0 /100 WBC Bld-Rto LAB 771-6([facility]) nRBC # Bld Auto <0.01 <0.01 k/uL LAB 48065-5(INC) Differential Auto method Bld Performed By: #### 54748-0 #### [facility] CLIA [id number] [address] [place] [address] STAT ES OF ERIC COMP METAB 2000 PNL Collected: 08/31/2021 8:25 Status: Maday Feldman ource: [facility] REPO S[facility] Order Comment: Specimen Type: BLOOD SP ECIMEN Ordering Facility: [facility] FO [facility]ATION Address: [address] [place] [address], [place] [address] TYPE CODE TESTS RESULT OUT OF RANGE REFERENCE UNITS LAB 2885-2(LOINC) Prot SerPl-mCnc 6.9 6.3-8.0 g/dL LAB 1751-7(LOINC) Albumin 4.3 3.9-4.9 g/dL SerPl-mCnc LAB 24891-4(LOINC) Calcium 9.0 8.5-10.2 mg/dL SerPl-mCnc LAB 1975-2(LOINC) Bilirub 0.7 0.2-1.3 mg/dL SerPl-mCnc LAB 6768-6(LOINC) ALP SerPl-cCnc 61 34-123 U/L LAB 1920-8(LOINC) AST SerPl-cCnc 17 13-35 U/L LAB 1742-6(LOINC) ALT SerPl-cCnc 12 7-38 U/L LAB 2345-7(LOINC) Glucose 97 74-99 mg/dL SerPl-mCnc Result Comment: The [place] Diabetes Association (ADA) provides guidance for cutoff [...] Standards of Medical Care in Diabetes 2016, [place] Diabetes Association. Diabetes Care. 2016.39(Suppl 1). LAB 3094-0(LOINC) BUN SerPl-mCnc 16 7-21 mg/dL LAB 2160-0(LOINC) Creat SerPl-mCnc 0.54 Low 0.58-0 .96 mg/dL LAB 2951-2(LOINC) Sodium SerPl-sCnc 133 Low 136-14 4 mmol/L LAB 2823-3(LOINC) Potassium 4.0 3.7-5.1 mmo l/L SerPl-sCnc LAB 2075-0(LOINC) Chloride 96 Low 97-105 mmol /L SerPl-sCnc LAB 2027-(LOINC) CO2 SerPl-sCnc 26 22-30 mmol/L LAB 50842-7(LOINC) Anion Gap 11 9-18 mmo l/L SerPl-sCnc [...] accurately reflect actual GFR. Performed By: #### 84901-0, 03178-1, L BENJI, 3016-3 #### [facility] CLIA [id number] [address] [place], [place] [id number] [address] OF ERIC LIPID PANEL, NONFASTING Collected: 08/31/2021 Status: F So urce: [facility] 8:25 AM [facility] REPO S[facility] Order Comment: Specimen Type: BLOOD SP ECIMEN Ordering Facility: [facility] Address: [address] [place] [address], [place] [id number] TYPE CODE TESTS RESULT OUT OF RANGE [...] Desk Reference: National Heart, Lung, and Blood [place]. National Institutes of Health. 2001: NIH Publication No. 01-3305. 2. An International Atherosclerosis Soc iety position paper: global recommendations for the management of dyslipidemia: executive summary, Atherosclerosis. 2014: 232(2):410-413. Performed By: #### 37775-2, 38917-1, L IPNF, 3016-3 #### [facility] CLIA [id number] [address] [place] [address] [place] STAT ES OF ERIC MAGNESIUM SERPL-MCNC Collected: 08/31/2021 8:25 Status: F Source: [facility] Order Comment: Specimen Type: BLOOD SP ECIMEN Ordering Facility: [facility] Address: [address] [place] [address], [facility] [address] TYPE CODE TESTS RESULT OUT OF RANGE REFERENCE UNITS LAB 91104-1(LOINC) Magnesium 1.9 1.7-2.3 mg /dL SerPl-mCnc Performed By: #### 90036-2, 25505-6, L IPNF, 3016-3 #### [facility] CLIA [id number] [address] [place] [address] [place] STAT ES OF ERIC TSH SERPL-ACNC Collected: 08/31/2021 8:25 AM Status: Maday Ruiz urce: [facility] REPOSITOR Y Order Comment: Specimen Type: BLOOD SP ECIMEN [facility] [facility] Address: [address] [place] [id number] TYPE CODE TESTS RESULT OUT OF RANGE REFERENCE UNITS LAB 3016-3(LOINC) TSH SerPl-aCnc 1.210 0.270-4.2 00 mIU/L Performed By: #### 41739-6, 07510-5, LIPNF, 3016-3 #### [facility] CLIA [id number] [address] [place] [address] UNITED STAT ES OF ERIC VITAMIN B12 BLOOD Collected: 08/31/2021 8:25 Status: Maday Rose rce: [facility] REPO SITORY Order Comment: Specimen Type: BLOOD SP ECIMEN Ordering Facility: [facility] Address: [address] [place], [place] [id number] TYPE CODE TESTS RESULT OUT OF RANGE REFERENCE UNITS LAB 2132-9(LOINC) Vit B12 SerPl-mCnc >2000 High 232-1 ,245 pg/mL Performed By: #### B12 #### [facility] CLIA [id number] [address] [place] [address] UNITED STAT ES OF ERIC CNPN Observed: 08/23/2021 12:00 AM Status: COMPLETED Source: [facility] REPOSITOR Y Telephone (ISAI) DALIA MENDES ([id number]) 1955 F Date Time Provider Department 08/23/21 [...] twice daily f or 90 days. - nedibdugths-zriifqufd-bxrqfrek (TRELE GY ELLIPTA) 100-62.5-25 mcg inhalation powder [...] 08/19/2021 9:54 AM Status: COMPLETED S ource: [facility] REPO SITORY HNO ID: [id number] Author: Lacy Manzanares APRN.TRANSMISSION LINE ENGINEER Service: ? Author Type: Nurse Specialist Type: [...] from previous visit: She was admitted to [facility] December 02 through December 06, 2020. [...] 3 to 6 L nasal cannula at [facility]. Treated with IV Solu-Medrol during admission, transitio [...] inhaler refill from Dr. Bentley Follow-up with bander hand: scheduled for next week, Dr. Bentley's office Complete medications: yes completed. Notes eating OK. Does not take any supp lemental, nothing recommended at discharge notes continues to smoke, EtO H. Notes chronic back pain, stable, no ala rm symptoms, ibuprofen seems to help somewhat. Not interested in physic al therapy. Has not seen spine physician. X-ray completed in February. Requests [place]. Presents today for routine follow up vi sit. She reports no hospitalization or ER visits since last year. She has not seen Dr. Bentley since her ER visit in 2020, needs to [facility] follow-up visit. COPD: Noted to be severe Cough: Present, clear sputum Wheeze: Present Shortness of breath: Present Remediation Project Engineer visit: Dr Bentley Oxygen: 2 to 3 [...] by mouth twice daily for 90 days. zkzosycfzma-zufgbtucs-pvnljqca (TRELEGY ELLIPTA) 100-62.5-25 mcg inhalation powder Inhale [...] fall. - Chronic obstructive pulmonary disease (COPD) ([facility]) - Dysphagia, unspecified(787.20) - Emphysema lung ([facility]) - Hypertension - INSOMNIA, intermittent 12/17/2006 stress related - Unspecified chronic bronchitis ([facility]) 12/17/2006 Social History Tobacco Use - [...] use: No ASSESSMENT/PLAN: ASSESSMENT/PLAN: 1. COPD, severe ([facility]) - ICD9: 496, ICD1 0: J44.9 (primary diagnosis) 5. Chronic bronchitis, unspecified rotary bar operator ramon bronchitis type ([facility]) - ICD9: 491.9, ICD10: J42 Currently stable, no recent exacerbatio n. Continue with current treatment unchanged for now. Currently using inha lers routinely. Reports oxygen 2 to 3 L 16/10. She is overdue for follow -up visit with Dr. Bentley her bander hand. 6. Tobacco use disorder - ICD9: 305.1, [...] RELE ASE 9. PAD (peripheral artery disease) ([facility] ) - ICD9: 443.9, ICD10: I73.9 - ATORVASTATIN 10 MG TABLET 10. Gastroesophageal reflux disease wit hout esophagitis - ICD9: 530.81, ICD10: K21.9 - CBC + DIFF - COMP METABOLIC PANEL - OMEPRAZOLE 40 MG CAPSULE,DELAYED RELE ASE 11. Compression fracture of T5 vertebra , initial encounter ([facility]) - ICD9: 805.2, ICD10: S22.050A 12. Closed fracture of multiple ribs of right side with routine healing - ICD9: V54.19, ICD10: S22.41XD She notes back pain is currently manage d with gabapentin. PDMP website checked and validated. All prescriptions have been APPROPRIATELY filled. No suspicious act ivity was identified. 08/19/2021 by Lacy Manzanares APRN.TRANSMISSION LINE ENGINEER - GABAPENTIN 300 MG CAPSULE 13. Need [...] this. 6-month follow-up with PCP Lacy Manzanares APRN.TRANSMISSION LINE ENGINEER Medical Decision Making: Problems: Moderate: 2+ stable chronic illnesses Data: Unique test(s) ordered: 3+ Risk: Moderate: Drug management Medical Decision Making Level: 4 - Mode rate CNOV Observed: 08/19/2021 9:40 AM Status: COMPLETED S ource: [facility] REPOSITOR Y Office Visit (INTMWS) DALIA MENDES ([id number]) 1955 F Date Time Provider Department 08/19/21 9:40 AM LACY MANZANARES INTCristineWS During your visit today, we recorded t he following information about you: Pulse Respiration Blood pressure Weigh t 93/minute 16/minute 132/88 51.7 kg Height 1.613 m Lacy Manzanares APRN.TRANSMISSION LINE ENGINEER 08/19/2021 10:45 AM Signed SUBJECTIVE: LUNG CANCER [...] from previous visit: [facility] December 06, 2020. Admission [...] calorie malnutrition as evidenced by reduced B NV and cachectic appearance. Dietitian consulted during admission. [...] 24/7 Inhaler: Using currently, [facility] from Dr. Bentley Follow-up with bander hand: scheduled for next week, Dr. Bentley's office Complete medications: yes completed. Notes eating OK. Does not take any supp lemental, nothing recommended at discharge notes continues to smoke, EtO H. Notes chronic back pain, stable, no ala rm symptoms, ibuprofen seems to help somewhat. Not interested in physical th jania. Has not seen spine physician. X-ray completed in February. Requests [place]. Presents today for routine follow up vi sit. She reports no hospitalization or ER visits since last year. She has not seen Dr. Bentley since her ER visit in 2020, needs to schedule follow-up visi t. COPD: Noted to be severe Cough: Present, clear sputum Wheeze: Present Shortness of breath: Present Remediation Project Engineer visit: Dr Bentley Oxygen: 2 to 3 [...] by mouth twice daily for 90 days. uhcicakouvz-zimckpqaf-evvfizfi (TRELEGY ELLIPTA) 100-62.5-25 mcg inhalation powder Inhale [...] fall. - Chronic obstructive pulmonary disease (COPD) ([facility]) - Dysphagia, unspecified(787.20) - Emphysema lung ([facility]) - Hypertension - INSOMNIA, intermittent 12/17/2006 stress related - Unspecified chronic bronchitis ([facility]) 12/17/2006 Social History Tobacco Use - [...] use: No ASSESSMENT/PLAN: ASSESSMENT/PLAN: 1. COPD, severe ([facility]) - ICD9: 496, ICD 10: J44.9 (primary diagnosis) 5. Chronic bronchitis, unspecified rotary bar operator ramon bronchitis type ([facility]) - ICD9: 491.9, ICD10: J42 Currently stable, no recent exacerbatio n. Continue with current treatment unchanged for now. Currently using inha lers routinely. Reports oxygen 2 to 3 L 16/10. She is overdue for follow-up vi sit with Dr. Bentley her bander hand. 6. Tobacco use disorder - ICD9: 305.1, [...] RELE ASE 9. PAD (peripheral artery disease) ([facility] ) - ICD9: 443.9, ICD10: I73.9 - ATORVASTATIN 10 MG TABLET 10. Gastroesophageal reflux disease wit hout esophagitis - ICD9: 530.81, ICD10: K21.9 - CBC + DIFF - COMP METABOLIC PANEL - OMEPRAZOLE 40 MG CAPSULE,DELAYED RELE ASE 11. Compression fracture of T5 vertebra , initial encounter ([facility]) - ICD9: 805.2, ICD10: S22.050A 12. Closed fracture of multiple ribs of right side with routine healing - ICD9: V54.19, ICD10: S22.41XD She notes back pain is currently manage d with gabapentin. PDMP website checked and validated. All prescriptions have been APPROPRIATELY filled. No suspicious activity was iden tified. 08/19/2021 by Lacy Manzanares APRN.TRANSMISSION LINE ENGINEER - GABAPENTIN 300 MG CAPSULE 13. Need [...] t esophagitis [K21.9] PAD (peripheral artery disease) ([facility]) [I73.9] Gastroesophageal reflux disease withou t esophagitis [K21.9] Comment:needs to take or gets trouble swallowing Compression fracture of T5 vertebra, i nitial encounter ([facility]) [S22.050A] Closed fracture of multiple ribs of ri ght side with routine healing [S22.41XD] Need for financial support [Z59.9] Essential hypertension [I10] Reactive depression [F32.9] Generalized anxiety disorder [F41.1] Order(s):CBC + DIFF [SQCBCDIF] Order #: [id number] FUTURE COMP METABOLIC PANEL [SQCMP] Order #: [id number] FUTURE TSH BLD [SQTSH] Order #: [id number] FU TURE MAGNESIUM BLD [SQMG1] Order #: [id number] FUTURE VITAMIN B12 BLOOD [SQB12] Order #: [id number] FUTURE atorvastatin (LIPITOR) 10 mg tabletTak e [...] capsuleRfl: 5 PRIMARY CARE SOCIAL WORK CONSULT [5436 226] Order #: [id number]: 1 FUTURE Prescriptions as of 08/19/2021 - [...] twice daily fo r 90 days. - mqqqyggpakd-rmetkkqfj-jqucazbj (TRELE GY ELLIPTA) 100-62.5-25 mcg inhalation powder [...] at least and continue for 1 w chicken ranch after rash resolves. - promethazine (PHENERGAN) 6.25 [...] E ncounter Date Provider Department Center 08/19/2021 [id number] MANZANARESMIGUEL [facility] Encounter Status:Closed by INDIO MANZANARES I on 08/19/21 IVETTE Observed: 08/09/2021 12:00 AM Status: COMPLETED Source: [facility] REPOSITOR Y Letter Text CNPN Observed: 07/05/2021 12:00 AM Status: COMPLETED Source: [facility] REPOSITOR Y Telephone (OLGAWS) DALIA MENDES ([id number]) 1955 F Date Time Provider Department 07/05/21 [...] does not last till her appointment with Lcay, should be s een to determine the [...] 1 capsule by mouth once daily. - jwvmgpdondq-umskkmcpv-iwzczgqt (TRELE GY ELLIPTA) 100-62.5-25 mcg Inhale 1 [...] Observed: 01/19/2021 12:00 AM Status: COMPLETED Source: [facility] REPOSITOR Y Telephone (INTMWS) VAUGHNDALIA ([id number]) 1955 F Date Time Provider Department 01/19/21 SELWYN GARCIAWS During your visit today, we recorded t he following information about you: Cristine Escalante RN 01/19/2021 12:32 PM S apolinar Randall- [facility]- reports, patient infor med her she is [...] if the pain gets worse. Lacy Manzanares APRN.TRANSMISSION LINE ENGINEER 01/21/2021 3:05 PM Signed Noted, agree Allergies As of Date: 01/19/2021 Noted Allergy Reaction WELLBUTRIN SR (BUPROPION) 05/08/2008 1 - Mental Status Change Comments: made me hallucinate Date Reviewed: 12/13/2020 Reviewed by: Racheal Lopez LPN - Fully Assessed Reason for Visit: Left rib pain [Other] Prescriptions as of 01/21/2021 - dxwxessyaiq-fpbwnscpy-teozwumo (TRELE GY ELLIPTA) 100-62.5-25 mcg Inhale 1 [...] SEVERITY SOURCE 05/08/2008 DRUG BUPROPION [facility] INGREDI/[id number] Finn zarate (SNOMED CT) ENCOUNTERS ENCOUNTERS ADMIT/DISCHARGE ACCOUNT NUMBER ADMITTING ENCOUNTER LOCATION SOUR E CLASS 12/13/2021/ [id number] Ambulatory [address] ing:WOIA 08/31/2021/ [id number] [address] ing:WOLB 08/19/2021/ [id number] [address] ing:KAVITA PAYERS PAYERS ENCOUNTER GUARANTOR PAYER SUBSCRIBER SOURCE 12/13/2021 Primary [facility] MEDICAIDPolicy Number: ERIKA: [facility] [id number] Date:2216-45-68Ayun URMILA MENDEZ, Name:[place] [address] 08/31/2021 Primary DALIA Feldman [facility] c Insurance:CELSO JAMES: [facility] [id number] Number: URMILA MENDEZ [id number] [place] [address] Date:2463-24-76Latd Name:N 08/31/2021 [facility]:[place] E[place]KA: [place] MEDICAIDPolicy Number: [id number] URMILA RDWOOSTER, Date:7344-80-16[place] [address] Name:X 08/19/2021 Primary DALIA [facility]man [facility] Insurance:CELSO JAMES: [facility] [id number] Number: URMILA VANESSA, [id number] [place] [address] Date:7012-30-21Mpqz Name:N 08/19/2021 Secondary DALIA Feldman [facility] [place] MEDICAIDPolicy Number: [id number] URMILA RDWOOSTER, Date:5551-79-12Wbhk [place] [address] Name:Albert
--- NOTE | 2022-01-17 20:39 | EKG12_ITS ---
Test Reason : ALT LOC Blood Pressure : / mmHG Vent. Rate : 103 BPM Atrial Rate : 103 BPM P-R Int : 140 ms QRS Dur : 078 ms QT Int : 334 ms P-R-T Axes : 072 067 073 degrees QTc Int : 437 ms Somatic/Motion Artifact Sinus tachycardia Nonspecific ST abnormality Abnormal ECG Confirmed by KRYSTAL FOOTE, DIONICIO ([id number]), copy editor KAI RODRIGUEZ ([id number]) on 01/19/2022 10:40:15 AM Referred By: ALONZO Confirmed By:DIONICIO RICE MD
[2022-01-17] MEDS: Naloxone 0.4 MG/ML Syringe 0.400000000000000022 MG IV (21:01)
[2022-01-17 21:07] VITALS: BP 121/72; PULSE 105; RESP 31; O2SAT 96
[2022-01-17] MEDS: Morphine 2 MG/ML Syringe IV (21:15)
[2022-01-17 21:20] LABS: Absolute Lymphocyte Count 0.93 X10^3/uL (0.83-4.51); Absolute Neutrophil Count 7.5 X10^3/uL (2.0-7.7); Basophil# 0.01 X10^3/uL; Basophil% 0.1 % (0-1); Hematocrit 39.5 % (37-47); Lymphocyte # 0.93 X10^3/ul (0.83-4.51); Lymphocyte % 9.9 % (19-41); Mean Corp Hgb Conc 32.9 g/dL (32-36); Monocyte# 0.98 X10^3/uL; Monocyte% 10.4 % (0-10); NRBC Flagged by Analyzer 0 % (0-5); Neutrophil # 7.46 X10^3/uL (2.7-7.7); Platelet Count 285 K/mm3 (150-450); RBC Distribution Width CV 13.3 % (11.6-14.6); Red Blood Count 4.34 M/mm3 (4.2-5.4); White Blood Count 9.4 K/mm3 (4.4-11.0)
[2022-01-17] MEDS: Ipratropium/Albuterol Sulfate 3 ML AMPUL.NEB INHALATION (21:24)
[2022-01-17 21:27] VITALS: PULSE 107; RESP 28
[2022-01-17 21:50] LABS: Anion Gap 7 (5-15); BUN 22 mg/dL (7-18); BUN/Creat Ratio 35.3 RATIO (10-20); Chloride 100 mmol/L (98-107); Creatinine, Serum 0.62 mg/dL (0.55-1.02); EST Glomerular Filtration Rate 101 mL/min (>60); Est Glom Filt Rate - Afr Amer 122 mL/min (>60); Glucose 93 mg/dL (74-106); Potassium 4.7 mmol/L (3.5-5.1); Sodium Level 129 mmol/L (136-145)
--- NOTE | 2022-01-17 21:57 | ED.RN ---
PT AWAKE, ORIENTED WITHIN 2 MINUTES OF RECEIVING NARCAN. RESPIRATORY RATE AND HEART RATE INCREASED, PT FEELING SHORT OF BREATH WITH PURSED LIP BREATHING. MD UPDATED, MORPHINE GIVEN FOR COMFORT.
--- NOTE | 2022-01-17 22:06 | RAD_ITS ---
EXAM: XR CHEST, 1 VIEW CLINICAL INDICATION: COPD TECHNIQUE: Frontal view of the chest. This report was created using [employer] report generation technology. COMPARISON: September 28, 2021.December 02, 2020. FINDINGS: LUNGS AND PLEURAL SPACES: The lungs appear mildly hyperinflated with increased interstitial markings, increased mild linear presumed scarring in the left midlung field and right upper lobe, similar to prior exams. Mild increased interstitial markings in the right lung base. No confluent alveolar infiltrate or effusion. No pneumothorax. HEART: Normal heart size. MEDIASTINUM: Central airways and mediastinal contour are unremarkable. BONES/JOINTS: See above. SOFT TISSUES: Unremarkable. RAD/Chest 1 View (Portable) IMPRESSION: No convincing acute intrathoracic abnormality. Chronic lung changes, moderate. Electronically Signed: Yudelka Bird MD at 22:40 EDT ,
[2022-01-17 23:08] VITALS: BP 141/78; PULSE 81; RESP 28; O2SAT 98
[2022-01-17 23:09] LABS: Mucous, Urine 0 SEEN /hpf (<or=2+); Squamous Epithelial Cells - UA 0 SEEN /hpf (5-10)
[2022-01-17 23:12] LABS: Color, Urine Yellow (Yellow); Glucose, Dipstick Normal (Normal); Ketone-Dipstick Negative (Negative); Leukocyte Esterase-Dipstick 500 /ul (Negative); Nitrite-Dipstick Positive (Negative); Occult Blood-Urine 25 /ul (Negative); Protein-Dipstick 30 mg/dl (Negative); Urine Bilirubin Dipstick Negative (Negative); Urine Clarity Sl. Cloudy (Clear); Urine Urobilinogen 1 mg/dl (Normal)
[2022-01-17 23:19] LABS: Bacteria 4+ /hpf (None Seen); Red Blood Cells-Urine 0-5 SEEN /hpf (0-5); White Blood Cells 50-100 SEEN /hpf (0-5)
--- NOTE | 2022-01-17 23:39 | EDS_ITS ---
HPI History of Present Illness Chief Complaint: Alt LOC Informant: patient, family and other Narrative Narrative: History is from patient family and hospice nurse. Patient was brought in at the family's urge because she has been less alert today. Her last oxycodone was evidently sometime this morning or this afternoon. Patient has not been having fevers. No vomiting. No specific complaints. They just states she seems less alert. I talked with them about the hospice care. I also talked with the nurse. The family wants her to stay on hospice care but wants to find out if there is something specific they can do to make her better such as dehydration. They states she has not been eating and drinking as much. But this is worse when she takes more pain meds. I also find out from other family members later that she does like to go home and likes to drink and still likes to smoke. She is on hospice due to end-stage COPD. Patient is a little hard to wake up. But she will wake up. She denies pain or symptoms. She states her breathing is at baseline. [facility] Medical History Alcohol dependence Alcoholism Allergic rhinitis Anxiety Back pain Chronic bronchitis Chronic hyponatremia Chronic hypoxemic respiratory failure Chronic respiratory failure with hypoxia COPD (chronic obstructive pulmonary disease) Depression Dysphagia Emphysema of lung Hypertension Hyponatremia Insomnia Nicotine dependence, cigarettes, uncomplicated Protein-calorie malnutrition, moderate Smoker Smoking greater than 30 pack years Tobacco abuse Home Medications citalopram 20 mg tablet 20 mg PO QHS mood 10/13/15 [History Last Taken 09/27/21] omeprazole 40 mg capsule,delayed release 40 mg PO QHS acid reflux 10/13/15 [History Last Taken 09/27/21] amlodipine 2.5 mg tablet (Norvasc) 2.5 mg PO QHS blood pressure 11/12/18 [History Last Taken 09/27/21] cyclobenzaprine 10 mg tablet 10 mg PO TID PRN muscle spasm 11/12/18 [History Last Taken 09/27/21] gabapentin 300 mg capsule 600 mg PO QHS pain 11/12/18 [History Last Taken 09/27/21] atorvastatin 10 mg tablet 10 mg PO QHS CHOLESTEROL 10/25/20 [History Last Taken 09/27/21] ibuprofen 800 mg tablet 800 mg PO TID PRN Pain 10/25/20 [History Last Taken 10/24/20] codeine 10 mg-guaifenesin 100 mg/5 mL oral liquid 5 ml PO Q6H PRN Cough 08/31/21 [History Last Taken 1 Week Ago ~09/21/21] cholecalciferol (vitamin D3) 25 mcg (1,000 unit) tablet 25 mcg PO DAILY supplement 09/28/21 [History Last Taken 09/27/21] fluticasone fur. 200 mcg-umeclid 62.5 mcg-vilant 25 mcg inhalat.powder (Trelegy Ellipta) 1 inh inhalation DAILY copd 09/28/21 [History Last Taken 09/28/21] losartan 50 mg tablet 50 mg PO BID bp 09/28/21 [History Last Taken 09/27/21] thiamine HCl (vitamin B1) 100 mg tablet 100 mg PO TID supplement 09/28/21 [History Last Taken 09/27/21] nicotine 21mg/24hr-14mg/24hr-7mg/24hr daily transderm patches,sequentl 1 patch transdermal DAILY #56 patches 09/29/21 [Rx Last Taken Unknown] albuterol sulfate 90 mcg/actuation aerosol inhaler 2 puff inhalation Q4H PRN PRN Shortness Of Breath ##1 10/06/21 [Rx Last Taken Unknown] doxycycline hyclate 100 mg tablet 100 mg PO BID #20 tabs 10/06/21 [Rx Last Taken Unknown] prednisone 10 mg tablet 10 mg PO QDAY #30 tabs 10/06/21 [Rx Last Taken Unknown] budesonide 1 mg/2 mL suspension for nebulization 1 mg (2 mL) inhalation BID #60 mL 11/25/21 [Rx Last Taken Unknown] ipratropium 0.5 mg-albuterol 3 mg (2.5 mg base)/3 mL nebulization soln 3 ml inhalation Q4H PRN PRN SOB &/OR WHEEZING #180 mL 11/25/21 [Rx Last Taken Unknown] cephalexin 500 mg capsule 500 mg PO Q6 #40 caps 01/17/22 [Rx Last Taken Unknown] Allergy/AdvReac Type Severity Reaction Status Date / Time bupropion [From Wellbutrin] Allergy Severe hallucinati Verified 01/17/22 19:39 ons Family History Mother Heart disease Hypertension CAD (coronary artery disease) Other No pertinent family history Surgical History S/P chest tube placement Social History household members: significant other history of recent travel: No Smoking Status: Current every day smoker tobacco type: cigarettes quit status: considering quitting counseling given: provider counseling and counseling >10 minutes alcohol intake: current alcohol intake frequency: 3 or more drinks per day Alcohol type: beer details: 4-6 beers daily. substance use type: does not use ROS ROS ED Constitutional Constitutional ED: Denies chills or fever(s) ENT ENT ED: Denies rhinorrhea or sore throat Cardiovascular Cardiovascular: Denies chest pain Respiratory/Chest Respiratory/Chest: Reports cough, dyspnea and other Details: Patient evidently has chronic cough and dyspnea. She is on oxygen at home. She has breathing treatments. She does still smoke. ; Denies sputum Gastrointestinal Gastrointestinal: Denies diarrhea or vomiting Genitourinary Genitourinary ED: Denies dysuria Musculoskeletal Musculoskeletal: Denies myalgias Integumentary Denies rash Neurologic Neurologic: Denies headache(s) Endocrine Endocrinology: Denies polydipsia or polyuria Hematologic/Lymphatic Hematologic/Lymphatic: Denies anemia Allergic/Immunologic Allergic/Immunologic ED: Denies urticaria EXAM Physical Exam Const Vital Signs: 01/17/22 19:37 01/17/22 20:01 01/17/22 20:02 Temperature 97.7 F L Temperature Source Temporal Pulse Rate 91 85 Respiratory Rate 15 20 H Respiratory Effort Normal Non-Labored Respiratory Pattern Normal Blood Pressure 94/67 115/83 H Blood Pressure Mean 76 93 Pulse Ox 85 100 Oxygen Delivery Method Room Air Nasal Cannula Oxygen Flow Rate (L/min) 2 01/17/22 21:07 01/17/22 21:27 01/17/22 23:08 Temperature Temperature Source Pulse Rate 105 H 107 H 81 Respiratory Rate 31 H 28 H 28 H Respiratory Effort Respiratory Pattern Tachypnea Blood Pressure 121/72 H 141/78 H Blood Pressure Mean 88 99 Pulse Ox 96 98 Oxygen Delivery Method Nasal Cannula Room Air Oxygen Flow Rate (L/min) 2 Constitutional Narrative: Patient is thin. She is chronically ill. She will open her eyes but her eyes tend to droop a bit equally. She seems rather sleepy or lethargic. HEENT Reports moist mucous membranes; Denies dry mucous membranes Negative for trauma Mouth ED: No dry mucous membranes Mouth: No dry mucous membranes Eyes Eyes Narrative: Pupils are small. No asymmetry. Neck no JVD Chest Wall inspection of chest normal Resp normal respiratory effort Resp Narrative: Mild coarse breath sounds. Minimal expiratory wheeze is. Auscultation: wheezes Cardio regular rate, regular rhythm and no murmurs GI normal to inspection, nondistended, normoactive bowel sounds and non-distended Back/Spine no CVA tenderness Extremity General Extremety ED: Negative for edema or tenderness General Extremity: Negative for edema Neuro Neuro Narrative: Patient is able to be woken up. She seems fully oriented but I have to ask single questions at a time in between waking her up. Psych mental status grossly normal Skin no rashes or lesions noted and no wounds MDM MDM MDM Narrative Medical decision making narrative: We did agree to do basic medical work-up. Her CBC shows no acute process. White count is normal. She is not anemic. Electrolytes showed slight decrease in the sodium but no other significant acute process. She did have slightly high BUN to creatinine ratio. She was given a little bit of fluids here. Urine was obtained and does show signs of a UTI with cloudy positive nitrites and large number of white cells. Chest X showed no acute process. There were chronic lung changes. We talked with the granddaughter grandson and the patient. Patient wants to go home. Granddaughter states that she will probably go home and smoke and drink. However, the patient has the right to do that. Patient is awake and alert. When she was given naloxone she woke up very quickly. This actually caused more dyspnea. I think it put her slightly into withdrawal. But we were able to calm this down with a single dose of morphine. Breathing treatment did help. And she is now much more relaxed. Her saturations are about 91% when resting on her 2 L. I had a long talk with patient and family. We discussed that hospice is really end-of-life care for a medical condition that has little options to aggressively treat and improved. I explained that I am happy to treat the UTI. The granddaughter states she is already on all her inhalers and medicines for the lungs. She is comfortable of that if the patient wants to go home she can. This patient will probably not do well long-term. She has very severe COPD. Patient's family states she is just getting weaker and weaker. But she is on hospice at this time. This is her wishes. It is not unreasonable wish because of the severity of her COPD. She is not hypoxic. Lab Data Attestation: I reviewed the patient's lab results. Labs: Laboratory Results - last 24 hr 01/17/22 01/17/22 01/17/22 21:00 21:00 23:00 WBC 9.4 RBC 4.34 Hgb 13.0 Hct 39.5 MCV 91.0 MCH 30.0 MCHC 32.9 RDW Std Deviation 45.0 H RDW Coeff of Oral 13.3 Plt Count 285 MPV 10.0 Immature Gran % (Auto) 0.600 Neut % (Auto) 79.0 H Lymph % (Auto) 9.[address] [place] % (Auto) 10.4 H Eos % (Auto) 0.0 Baso % (Auto) 0.1 Absolute Neuts (auto) 7.5 Absolute Lymphs (auto) 0.93 Nucleated RBC % 0 Sodium 129 L Potassium 4.7 Chloride 100 Carbon Dioxide 22.0 Anion Gap 7 BUN 22 H Creatinine 0.62 Estim Creat Clear Calc 34.70 Est GFR (MDRD) Af Amer 122 Est GFR (MDRD) Non-Af 101 BUN/Creatinine Ratio 35.3 H Glucose 93 Calcium 8.0 L Urine Color Yellow Urine Clarity Sl. Cloudy Urine pH 7.0 Ur Specific [place] 1.010 Urine Protein 30 H Urine Glucose (UA) Normal Urine Ketones Negative Urine Occult Blood 25 H Urine Nitrite Positive H Urine Bilirubin Negative Urine Urobilinogen 1 H Ur Leukocyte Esterase 500 H Urine RBC 0-5 SEEN Urine WBC 50-100 SEEN Ur Squamous Epith Cells 0 SEEN Urine Bacteria 4+ Urine Mucus 0 SEEN Radiography Diagnostic Testing: Clinical Impression(s) from Imaging Studies Chest X-Ray 01/17/22 22:06 IMPRESSION: No convincing acute intrathoracic abnormality. Chronic lung changes, moderate. Electronically Signed: Yudelka Bird MD at 22:40 EDT , Chest x-ray looked at by me and radiology shows chronic changes but no acute process. EKG Initial EKG: Comments: EKG done for generalized weakness read by me shows sinus rhythm with slightly tachycardic rate at 103. Some baseline variation. Nonspecific ST change but no sign of infarct or ischemia. [place] interval, QRS duration and QTc normal. Discharge Plan Triage Chief Complaint: Alt LOC ED Provider: Mark Martinez Dx/Rx/DC Orders Clinical Impression: Narcotic overdose, COPD (chronic obstructive pulmonary disease), Hospice care, Acute UTI Instructions: COPD Caregivers, Urinary Tract Infections in Women Prescriptions: New cephalexin [cephalexin] 500 mg capsule 500 mg PO Q6 Qty: 40 0RF No Action cyclobenzaprine 10 mg tablet 10 mg PO TID PRN (Reason: muscle spasm) gabapentin 300 mg capsule 600 mg PO QHS amlodipine [Norvasc] 2.5 mg tablet 2.5 mg PO QHS codeine-guaifenesin 10-100 mg/5 mL liquid 5 ml PO Q6H PRN (Reason: Cough) Label Comments: TAKE 5-10ML BY MOUTH FOUR TIMES DAILY NEEDED FOR 7 DAYS prednisone 10 mg tablet 10 mg PO QDAY Qty: 30 0RF Rx Instructions: take 4 tabs for three days, then 3 tabs for three days, then 2 tabs for three days, then 1 tab for 3 days albuterol sulfate 90 mcg/actuation HFA aerosol inhaler 2 puff inhalation Q4H PRN PRN (Reason: Shortness Of Breath) Qty: 1 6RF doxycycline hyclate 100 mg tablet 100 mg PO BID Qty: 20 0RF ipratropium-albuterol 0.5 mg-3 mg(2.5 mg base)/3 mL solution for nebulization 3 ml inhalation Q4H PRN PRN (Reason: SOB &/OR WHEEZING) Qty: 180 6RF budesonide 1 mg/2 mL suspension for nebulization 1 mg inhalation BID Qty: 60 6RF omeprazole 40 MG capsule,delayed release(DR/EC) 40 mg PO QHS citalopram 20 MG tablet 20 mg PO QHS atorvastatin 10 mg tablet 10 mg PO QHS ibuprofen 800 mg tablet 800 mg PO TID PRN (Reason: Pain) Trelegy Ellipta 200-62.5-25 mcg blister with device 1 inh inhalation DAILY losartan 50 mg tablet 50 mg PO BID thiamine HCl (vitamin B1) 100 mg Tablet 100 mg PO TID cholecalciferol (vitamin D3) 25 mcg (1,000 unit) Tablet 25 mcg PO DAILY nicotine 21-14-7 mg/24 hr patch, TD daily, sequential 1 patch transdermal DAILY Qty: 56 0RF Primary Care Provider: May Garcia Referrals: May Garcia MD [Primary Care Provider] - As Needed Disposition Disposition: Home, Self Care
[2022-01-17] MEDS: Ceftriaxone 1 GM/50 ML BAG IV (23:52)
[2022-01-18] VITALS (13 sets, daily range): BP systolic 106–167; BP diastolic 64–103; PULSE 51–113; RESP 14–30; TEMP 36.7–37.1; O2SAT 87–98; BMI 17.9
--- NOTE | 2022-01-18 00:25 | ED.RN ---
PER GRANDDAUGHTER, PT'S SPOUSE CHANTEL DOES NOT WANT PT ON HOSPICE HOWEVER PT JUST WANTS TO GO HOME AND SMOKE AND DRINK . SPOUSE NOT PRESENT IN ED, GRANDDAUGHTER AND HER BOYFRIEND PRESENT, ATTENTIVE AND ASKING APPROPRIATE QUESTIONS. PT DAUGHTER HAD BEEN AT BEDSIDE INITIALLY, BUT WAS ARRESTED BY POLICE IN ED AND TAKEN TO [facility]. 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 PT CURRENTLY WEAK, UNABLE TO GET OUT OF BED BY HERSELF, VERY SHORT OF BREATH WITH ANY EXERTION, DROWSY. GRANDDAUGHTER DOESN'T FEEL PT IS SAFE GOING AT THIS TIME WITHOUT MORE CARE. GRANDDAUGHTER AGREES CASE MANAGEMENT WOULD BE BENEFICIAL TO HELP WITH FURTHER DECISION MAKING REGARDING HOSPICE AND HOMEGOING NEEDS.
--- OUTSIDE RECORDS SUMMARY | 2022-01-18 00:29 | XMS RPT_ITS ---
[...] disorder / NA [facility] F17.200(ICD-10) [facility] 08/29/2018 Active Chronic bronchitis, NA Active [facility] unspecified chronic [facility] bronchitis type (HCC) / J42(ICD-10) 10/20/2017 Active Gastroesophageal reflux NA Active [facility] disease without [place]jo esophagitis / K21.9(ICD-10) 06/13/2017 Active Reactive depression / NA Active [facility] F32.9(ICD-10) [facility] 02/06/2008 Active Generalized anxiety NA Active [facility] disorder / F41.1(ICD-10) [facility] 11/04/2019 Active COPD, severe (HCC) / LACY MANZANARES Active [facility] J44.9(ICD-10) [facility] 08/29/2018 Active Hypoxia / R09.02(ICD-10) LACY MANZANARES Active [facility] 08/29/2018 Active Closed fracture of LACY MANZANARES Active [facility] multiple ribs of right Cl angel[place] side with routine healing / S22.41XD(ICD-10) 08/29/2018 Active Compression fracture of MANZANARESLACY Active [facility] T5 vertebra, initial Clev and encounter (HCC) / S22.050A(ICD-10) 02/27/2017 Active Essential hypertension / BENI LACY Active [facility] I10(ICD-10) [facility] 08/19/2021 Active Encounter for screening MANZANARES, LACY Active [facility] for lung cancer / [place] [facility] Z12.2(ICD-10) 08/19/2021 Active Need for shingles LACY MANZANARES Active [facility] vaccine / Z23(ICD-10) [facility] 08/19/2021 Active Encounter for LACY MANZANARES Active [facility] immunization / [place] Z23(ICD-10) 08/19/2021 Active PAD (peripheral artery LACY MANZANARES Active [facility] disease) (H[facility]10[facility] 08/19/2021 Active Need for financial LACY MANZANARES Active [facility] support / Z59.9(ICD-10) [facility] PROCEDURES PROCEDURES No Procedure Records FoundRESULTS RESULTS PROGRESS Observed: 01/02/2022 9:19 AM Status: COMPLETED S ource: [facility] GER [facility] HNO ID: [id number] Author: Marion Davis RN Service: ? Author Type: Registered Nurse Type: Progress Notes Filed: 01/02/2022 1:08 PM Note Text: [facility] CDM Enrollment Provider Action/FYI: h/o COPD I spoke with patient and she is in Pall iative Care/ Hospice She is not sure which one but believes she is in Hospice ([facility] [place]) Patient referred by: [facility] Marisol Contact made with patient: Yes - Patien t identified by name and . Discussed care with patient Bernardo this is Marion Davis RN and I am calling from Selwyn Garcia MD office at the [facility]. I am a RN Shadow Graph Weight Operator with our [facility] Chronic Disease Management prog [...] questio ns once a week through your [employer] account. It will automatically show up for [...] Observed: 01/02/2022 12:00 Status: COMPLETED Rose rce: [facility] Patient Outreach ([facility]) DALIA MENDES ([id number]) 1955 F Date Time Provider Department 01/02/22 MARION DAVIS During your visit today, we recorded t he following information about you: Marion Davis RN 01/02/2022 1:08 PM S igned [facility] Enrollment Provider Action/FYI: h/o COPD I spoke with patient and she is in Pall iative Care/ Hospice She is not sure which one but believes she is in Hospice ([facility] [place]) Patient referred by: [facility] Marisol Contact made with patient: Yes - Patien t identified by name and . Discussed care with patient Bernardo this is Marion Davis, RADHA and I am calling from Selwyn Garcia MD office at the [facility]. I am a RN Shadow Graph Weight Operator with our [facility] Chronic Disease Management program. [...] few questions once a week through your [employer] accoun t. It will automatically show up [...] 1 tablet by mouth once daily. - jfyhneibwgu-bsnwjdgbu-kxnzvusd (TRELE GY ELLIPTA) 100-62.5-25 mcg inhalation powder [...] [M47*03/02/2020 05/27/2020 Encounter Status:Closed by JOSE RAFAEL ADVIS on 01/02/22 CNPN Observed: 12/15/2021 12:00 AM Status: COMPLETED Source: [facility] REPOSITOR Y Telephone (INTMWS) DALIA MENDES ([id number]) 1955 F Date Time Provider Department 12/15/21 [...] last ov on 12-13-21 [facility] Biopsy would have to occur within 30 days of H AND P visit. Once they review the notes will call patient to schedule. Lacy Manzanares APRN.KNITTING INSPECTOR 12/20/2021 7:31 A M Signed Has this [...] 1 tablet by mouth once daily. - lqcgfhzixfp-swbbmciqh-hmqswbvx (TRELE GY ELLIPTA) 100-62.5-25 mcg inhalation powder [...] 12/14/2021 2:36 PM Status: COMPLETED S ource: [facility] Mamta EDDIE HNO ID: [id number] Author: Joaquim Rodarte RN Service: ? Author Type: Registered Nurse Type: Progress Notes Filed: 12/14/2021 2:43 PM Note Text: [facility] CDM Enrollment Provider Action/FYI: 2nd Call to Pt, unable to leave a messa ge related to Insight / Chronic Disease Management program, will provid e [facility] info once reached. Patient referred by: [facility] Marisol Contact made with patient: No - 2nd att empt to reach patient, left another message: Hi my name is Aster duenas, RN and I am calling from the [facility] on behalf of your PCP, Selwyn Garcia [...] the patient after two a ttempted outreaches. Shadow Graph Weight Operator to retry patient in one wetarsha patterson END OUTREACH Aster March RN December 14, 2021 2:36 PM LUIZTOSHARAD Observed: 12/14/2021 12:00 Status: COMPLETED Rose rce: [facility] SITORY Patient Outreach ([facility]) DALIA MENDES ([id number]) 1955 F Date Time Provider Department 12/14/21 [...] Center info once reached. Patient referred by: [facility] Marisol Contact made with patient: No - 2nd att empt to reach patient, left another message: Hi my name is Aster duenas, RN and I am calling from the [facility] on behalf of your PCP, Selwyn Garcia [...] reach the patient after two attempted outreaches. Shadow Graph Weight Operator to retry patient in one week. END [...] 1 tablet by mouth once daily. - nxomyupqliq-lnbxdtonu-eluybfzp (TRELE GY ELLIPTA) 100-62.5-25 mcg inhalation powder [...] Status: COMPLETED S ource: [facility] REPOSITOR Y Office Visit (INTMWS) DALIA MENDES ([id number]) 1955 F Date Time Provider Department 12/13/21 9:40 AM SELWYN GARCIA INTMWS During your visit today, we recorded t he following information about you: Pulse Blood pressure Weight 97/minute 122/88 48.5 kg Selwyn Garcia MD 01/05/2022 2:37 PM Signed This note was created using Dayliferiter. Subjective Dalia Mendes is a 66 year [...] SOB. Working with Dr. Kirill Bentley at [facility] (aviation manager). Plans for lung biopsy discussed. Noted BP [...] by mouth twice daily for 90 days. taorcsrqyac-rgsdraaqf-wschruoc (TRELEG Y ELLIPTA) 100-62.5-25 mcg inhalation powder [...] Abs Lymph 1.00 - 4.00 k/uL 1.25 [place]% % 13.3 Abs [place] <0.87 k/uL 0.77 Eosin% % 3.1 Abs [...] ICD1 0: J44.9 Continue follow up with aviation manager. Okay cough med. - CODEINE 10 MG-GUAIFENESIN [...] Chronic respiratory failure with hy poxia--working with aviation manager. 14. Protein-calorie malntutrition--work ing on getting more calories and protein in; noted that shortness of felton ath with eating limits her intake. Will try to get foods of lower volume with higher amounts of calories and protein. Cost an issue for supplements. Will con umbrella tipper hand working with SW as needed. Selwyn Garcia MD Referring Provider: SELWYN GARCIA [ [id number]] Allergies As of Date: 12/13/2021 Noted Allergy [...] or gets tro uble swallowing COPD, severe ([facility]) [J44.9] Cough [R05.9] Cervical spondylosis without myelopath y [M47.812] Lumbosacral spondylosis without myelo kelly [M47.817] Compression fracture of T5 vertebra wi th routine healing, subsequent encounter [S22.050 D] Closed fracture of multiple ribs of ri ght side with routine healing [S22.41XD] Chronic respiratory failure with hypox ia ([facility]) [J96.11] Protein-calorie malnutrition, unspecif ied severity ([facility]) [E46] Order(s):atorvastatin (LIPITOR) 10 mg t abletTake 1 tablet by mouth once daily.Disp: 30 tabletRfl: 5 citalopram (CELEXA) 20 mg tabletTake 1 tablet by mouth once daily.Disp: 30 tabletRfl: 5 pejgpjkxibf-aiymevdrv-fkkhtzae (TRELE GY ELLIPTA) 100-62.5-25 mcg inhalation powderInhale [...] 1 tablet by mouth once daily. - rpofkycfhnb-eqzavhjsr-nrcmiava (TRELE GY ELLIPTA) 100-62.5-25 mcg inhalation powder [...] for home use. Dx: chronic b [facility] Meds Comments as of 09/02/2018: 09/02/18 [...] needed for up to 7 days. - jbtgirqpimy-hfnbppyex-epdepwcm (TRELE GY ELLIPTA) 100-62.5-25 mcg inhalation powder [...] OFFICE/OUTPATIENT EST ABLISHED MOD MDM 30-39 MIN [61655] Disposition: Return in about 6 months (around 06/12/2022) for 6 months follow up. Follow-up and Disposition History for E ncounter Date Provider Department Center 12/13/2021 [id number] GARCIA INTMWS [facility] Encounter Status:Closed by ANUSHA GARCIA on 01/05/22 PROGRESS Observed: 12/13/2021 9:40 AM Status: COMPLETED S ource: [facility] HNO ID: [id number] Author: Selwyn Garcia MD Service: ? Author Type: Physician Type: Progress Notes Filed: 01/05/2022 2:37 PM Note Text: This note was created using Dayliferiter. Subjective Dalia Mendes is a 66 year [...] SOB. Working with Dr. Kirill Bentley at [facility] (aviation manager). Plans for lung biopsy discussed. Noted BP [...] in fall. Chronic obstructive pulmonary disease (COPD) ([facility]) Dysphagia, unspecified(787.20) Emphysema lung ([facility]) Hypertension INSOMNIA, intermittent 12/17/2006 stress related Unspecified chronic bronchitis ([facility]) Current Outpatient Medications Medication Sig atorvastatin (LIPITOR) [...] by mouth twice daily for 90 days. wvjbdixrfpp-yecwkqecm-qzrmzzpw (TRELEG Y ELLIPTA) 100-62.5-25 mcg inhalation powder [...] Abs Lymph 1.00 - 4.00 k/uL 1.25 [place]% % 13.3 Abs [place] <0.87 k/uL 0.77 Eosin% % 3.1 Abs [...] ICD1 0: J44.9 Continue follow up with aviation manager. Okay cough med. - CODEINE 10 MG-GUAIFENESIN [...] Chronic respiratory failure with hy poxia--working with aviation manager. 14. Protein-calorie malntutrition--work ing on getting more calories and protein in; noted that shortness of felton ath with eating limits her intake. Will try to get foods of lower volume w ith higher amounts of calories and protein. Cost an issue for supplements. Will consider working with SW as needed. Selwyn Garcia MD CNPN Observed: 12/05/2021 12:00 AM Status: COMPLETED Source: [facility] REPOSITOR Y Telephone (INTMWS) DALIA MENDES ([id number]) 1955 F Date Time Provider Department 12/05/21 SELWYN GARCIA INTCristineWS During your visit today, we recorded the following information about you: Sugey Amezcuakallie POOL TECHNICIAN 12/05/2021 10:34 AM Signed Donya Nurse from [facility] calling was edwige ble to do [...] 12/15/2021 2:32 PM Sig elio Nurse from [facility] was given providers mess age and [...] 1 tablet by mouth once daily. - zckckbvimco-nqzhcfjtl-ziwgegpv (TRELE GY ELLIPTA) 100-62.5-25 mcg inhalation powder [...] Observed: 12/02/2021 12:23 Status: COMPLETED Rose rce: [facility] HNO ID: [id number] Author: Joaquim Rodarte, RADHA Service: ? Author Type: Registered Nurse Type: Progress Notes Filed: 12/02/2021 12:26 PM Note Text: [facility] CDM Enrollment Provider Action/FYI: Call to Pt, unable to leave a message related to Insight / Chronic Disease Management program, will provide [facility] info once reached. Patient referred by: [facility] Marisol Contact made with patient: No - Unable to leave message: (Keep encounter open and attempt 2nd outreach in two bu siness days from today). END OUTREACH Aster March RN December 02, 2021 12:23 PM CNPTOUTREACH Observed: 12/02/2021 12:00 Status: COMPLETED Rose rce: [facility] Patient Outreach ([facility]) DALIA MENDES ([id number]) 1955 F Date Time Provider Department 12/02/21 JOAQUIM RODARTE AMBDANNY During your visit today, we recorded t he following information about you: Aster March RN 12/02/2021 12:26 P M Signed [facility] CD Enrollment Provider Action/FYI: Call to Pt, unable to leave a message r elated to Insight / Chronic Disease Management program, will provide Health y at Home [facility] info once reached. Patient referred by: [facility] Marisol Contact made with patient: No - [...] Cmt: Initial CDM Outreach/ [facility] Prescriptions as of 12/02/2021 - atorvastatin (LIPITOR) [...] twice daily fo r 90 days. - veqiuusrwpn-tbdtvuzsg-kdachhwb (TRELE GY ELLIPTA) 100-62.5-25 mcg inhalation powder [...] Observed: 11/25/2021 12:00 AM Status: COMPLETED Source: [facility] REPOSITOR Y Telephone (INTMWS) DALIA MENDES ([id number]) 1955 F Date Time Provider Department 11/25/21 SELWYN GARCIA INTMWS During your visit today, we recorded t he following information about you: Sugey Condon LPN 11/25/2021 9:48 AM S apolinar New from [facility] Paper Sample Clerk calling ask ing if any paper work patient needs to take to Dr Bentley-Senior Health Consultant? Did not see anything in computer. Patient has appt scheduled today with Pulmonary off ice to update her HANDP for biopsy lung mass. Hoping patient does keep that kory t. [employer] works parts cataloguer and gave her marketing traffic manager, Delmy phone number is [phone] if needed. Aware patient had cancelled her appt mid October with Lacy Manzanares SENIOR PRODUCT ANALYST. Sugey Condon LPN 11/25/2021 4:16 PM S [...] voicemail, she can always get it from aviation manager if PCP does n ot want to do it. Virgen is faxing copy of [employer] to the office al so. She had given me grand daughter Mikala phone number is [phone]. She thinks patient is having memory issues [...] RN 11/29/2021 11:24 AM S igned Delmy [facility] called and is notified of [...] for Visit: Patient Update [1234] Patient Question [5317] Prescriptions as of 11/29/2021 - atorvastatin (LIPITOR) [...] twice daily fo r 90 days. - ugtwxlcpvtu-dpbeduvjr-gvbccyff (TRELE GY ELLIPTA) 100-62.5-25 mcg inhalation powder [...] Nebulizer for home use. [facility]: [facility] Comments as of 09/02/2018: 09/02/18 The [...] 11/23/2021 2:04 PM Status: COMPLETED S ource: [facility] HNO ID: [id number] Author: Joaquim Rodarte RN Service: ? Author Type: Registered Nurse Type: Progress Notes Filed: 12/02/2021 12:20 PM Note Text: [facility] CDM Enrollment Provider Action/FYI: Call to Pt, unable to leave a message r elated to Insight / Chronic Disease Management program, will provide [facility] info once reached. Patient referred by: [facility] Marisol Contact made with patient: No - Unable to leave message: (Keep encounter open and attempt 2nd outreach in two sine days from today). END OUTREACH Aster March RN November 23, 2021 2:04 PM CNPTOUTREACH Observed: 11/23/2021 12:00 Status: COMPLETED Rose rce: [facility] Patient Outreach ([facility]) DALIA MENDES ([id number]) 1955 F Date Time Provider Department 11/23/21 JOAQUIM RODARTE [facility] During your visit today, we recorded t he following information about you: Aster March RN 12/02/2021 12:20 PM Signed [facility] CDM Enrollment Provider Action/FYI: Call to Pt, unable to leave a message r elated to Insight / Chronic Disease Management program, will provide [facility] at Home [facility] info once reached. Patient referred by: [facility] Marisol Contact made with patient: No - [...] obstruc tive pulmonary disease, unspecified COPD type ([facility]) [J44.9] Order(s):CONSULT TO [facility] [[id number]] Order #: [id number]: 1 Prescriptions as of 12/02/2021 - atorvastatin [...] twice daily fo r 90 days. - ucinprlsfvd-wuoycbipt-wqyirowv (TRELE GY ELLIPTA) 100-62.5-25 mcg inhalation powder [...] Observed: 11/07/2021 12:00 AM Status: COMPLETED Source: [facility] REPOSITOR Y Telephone (INTMWS) DALIA MENDES ([id number]) 1955 F Date Time Provider Department 11/07/21 SELWYN GARCIA INTMWS During your visit today, we recorded t he following information about you: Cristine Escalante RN 11/07/2021 2:22 PM Dot zimmermanjesús CalleKaylyn - [facility] - phoned to see if manan worthington has seen pcp recently- they were hoping they could get an H AND P, to do lung biopsy tomorrow, for lung mass. Reports patient was scheduled for this 2 weeks ago, but no showed. The 2nd time [facility] scheduled patient, patient was instructed to [...] ce 08-19-21) until patient sees Pulmonary. Rajani Alicae LPN 11/08/2021 4:03 PM Sig elio Called [facility] radiology dept. They will be doing pts biopsy. They need an update HANDP. Pt missed several HANDP appts with Dr. Bentley the aviation manager with [facility]. Called pt to review the HANDP [...] twice daily fo r 90 days. - xhaurratfhl-lgxundlpz-ysqcvsbh (TRELE GY ELLIPTA) 100-62.5-25 mcg inhalation powder [...] at least and continue for 1 w cachil dehe after rash resolves. - promethazine (PHENERGAN) 6.25 [...] Observed: 11/02/2021 12:00 Status: COMPLETED Rose rce: [facility] Patient Outreach (INTMMN) DALIA MENDES ([id number]) 1955 F Date Time Provider Department 11/02/21 SELWYN GARCIA INTMMN During your visit today, we recorded t he following information about you: Allergies As of Date: 11/02/2021 Noted Allergy Reaction WELLBUTRIN SR (BUPROPION) 05/08/2008 1 - Mental Status Change Comments: made me hallucinate Date Reviewed: 08/19/2021 Reviewed by: Racheal Lopez LPN - Fully Assessed Visit Diagnosis:Encounter for screening mammogram for breast cancer [Z12.31] Order(s):[facility] SCREENING [[id number]] Order #: [id number] FUTURE Prescriptions as of 11/07/2021 - atorvastatin [...] twice daily fo r 90 days. - ddpemmqqcks-ikgqbbtoh-tbjgxnjo (TRELE GY ELLIPTA) 100-62.5-25 mcg inhalation powder [...] myelop athy [M47*03/02/2020 05/27/2020 Encounter Status:Closed by [employer] DIY ER on 11/07/21 CNPN Observed: 09/01/2021 12:00 AM Status: COMPLETED Source: [facility] REPOSITOR Y Telephone (INTMWS) DALIA MENDES ([id number]) 1955 F Date Time Provider Department 09/01/21 LACY MANZANARES During your visit today, we recorded t he following information about you: Lacyfatoumata Manzanares APRN.KNITTING INSPECTOR 09/01/2021 4:49 PM Signed Please let he [...] Abs Lymph 1.00 - 4.00 k/uL 1.25 [place]% % 13.3 Abs [place] <0.87 k/uL 0.77 Eosin% % 3.1 Abs [...] twice daily fo r 90 days. - yfxobgufhhs-wrqdwwxgx-wyzbmrte (TRELE GY ELLIPTA) 100-62.5-25 mcg inhalation powder [...] at least and continue for 1 w cachil dehe after rash resolves. - promethazine (PHENERGAN) 6.25 [...] Collected: 08/31/2021 8:25 Status: Maday Feldman ource: [facility] REPO SITORY Order Comment: Specimen Type: BLOOD SP ECIMEN Ordering Facility: [facility] Address: [address] [place] [address], [facility] [address] TYPE CODE TESTS RESULT OUT OF REFERENCE [...] MCHC RBC 32.7 30.5-36.0 g/dL Auto-mCnc LAB 96566-5(LOINC) RDW RBC-Rto 13.2 11.5-15.0 % LAB 777-3(LOINC) Platelet # Bld 390 150-400 k/uL Auto LAB 33323-1(LOINC) PMV Bld Auto 10.1 9.0-12.7 fL LAB [...] GRAN <0.03 <0.10 k/u L ABS LAB 13249-7([facility]) nRBC/100 WBC 0.0 /100 WBC Bld-Rto LAB 771-6([facility]) nRBC # Bld Auto <0.01 <0.01 k/uL LAB 63192-0(INC) Differential Auto method Bld Performed By: #### 81191-1 #### [facility] CLIA [id number] [address] [place] [address] STAT ES OF ERIC COMP METAB 2000 PNL Collected: 08/31/2021 8:25 Status: Maday Feldman ource: [facility] SERPL AM [facility] REPO SITORY Order Comment: Specimen Type: BLOOD SP ECIMEN Ordering Facility: [facility] Address: [address] [place] [address], [place] [address] TYPE CODE TESTS RESULT OUT OF RANGE REFERENCE UNITS LAB 2885-2(LOINC) Prot SerPl-mCnc 6.9 6.3-8.0 g/dL LAB 1751-7(LOINC) Albumin 4.3 3.9-4.9 g/dL SerPl-mCnc LAB 59778-9(LOINC) Calcium 9.0 8.5-10.2 mg/dL SerPl-mCnc LAB 1975-2(LOINC) Bilirub 0.7 0.2-1.3 mg/dL SerPl-mCnc LAB 6768-6(LOINC) ALP SerPl-cCnc 61 34-123 U/L LAB 1920-8(LOINC) AST SerPl-cCnc 17 13-35 U/L LAB 1742-6(LOINC) ALT SerPl-cCnc 12 7-38 U/L LAB 2345-7(LOINC) Glucose 97 74-99 mg/dL SerPl-mCnc Result Comment: The [place] Diabetes Association (ADA) provides guidance for cutoff [...] Standards of Medical Care in Diabetes 2016, [place] Diabetes Association. Diabetes Care. 2016.39(Suppl 1). LAB 3094-0(LOINC) BUN SerPl-mCnc 16 7-21 mg/dL LAB 2160-0(LOINC) Creat SerPl-mCnc 0.54 Low 0.58-0 .96 mg/dL LAB 2951-2(LOINC) Sodium SerPl-sCnc 133 Low 136-14 4 mmol/L LAB 2823-3(LOINC) Potassium 4.0 3.7-5.1 mmo l/L SerPl-sCnc LAB 2075-0(LOINC) Chloride 96 Low 97-105 mmol /L SerPl-sCnc LAB 2027-(LOINC) CO2 SerPl-sCnc 26 22-30 mmol/L LAB 62774-6(LOINC) Anion Gap 11 9-18 mmo l/L SerPl-sCnc [...] accurately reflect actual GFR. Performed By: #### 85057-7, 07895-6, L BENJI, 3016-3 #### [facility] CLIA [id number] [address] [place], [place] [address]K [address] OF ERIC LIPID PANEL, NONFASTING Collected: 08/31/2021 Status: F So urce: [facility] 8:25 AM [facility] Order Comment: Specimen Type: BLOOD SP ECIMEN [facility] Address: [address] [place] [address], [place] [id number] TYPE CODE TESTS RESULT OUT OF RANGE [...] Desk Reference: National Heart, Lung, and Blood [place]. National Institutes of Health. 2001: NIH Publication No. 01-3305. 2. An International Atherosclerosis Soc iety position paper: global recommendations for the management of dyslipidemia: executive summary, Atherosclerosis. 2014: 232(2):410-413. Performed By: #### 26270-6, 48652-9, L IPNF, 3016-3 #### [facility] CLIA [id number] [address] [place] [address] [place] STAT ES OF ERIC MAGNESIUM SERPL-MCNC Collected: 08/31/2021 8:25 Status: F Source: [facility] REPO SITORY Order Comment: Specimen Type: BLOOD SP ECIMEN Ordering Facility: [facility] F[facility] Address: [address] [place] [address], [facility] [address] TYPE CODE TESTS RESULT OUT OF RANGE REFERENCE UNITS LAB 77656-3(LOINC) Magnesium 1.9 1.7-2.3 mg /dL SerPl-mCnc Performed By: #### 82099-4, 59403-1, L IPNF, 3016-3 #### [facility] CLIA [id number] [address] [place] [address] [place] STAT ES OF ERIC TSH SERPL-ACNC Collected: 08/31/2021 8:25 AM Status: Maday Ruiz urce: [facility] REPOSITOR Y Order Comment: Specimen Type: BLOOD SP ECIMEN Ordering Facility: [facility] Address: [address] [place] [phone] TYPE CODE TESTS RESULT OUT OF RANGE REFERENCE UNITS LAB 3016-3(LOINC) TSH SerPl-aCnc 1.210 0.270-4.2 00 mIU/L Performed By: #### 97386-9, 16645-9, LIPNF, 3016-3 #### [facility] CLIA [id number] [address] [place] [address] [place] STAT ES OF ERIC VITAMIN B12 BLOOD Collected: 08/31/2021 8:25 Status: Maday Rose rce: [facility] REPO SITORY Order Comment: Specimen Type: BLOOD SP ECIMEN Ordering Facility: [facility] ND[facility] Address: [address] [place], [place] [id number] TYPE CODE TESTS RESULT OUT OF RANGE REFERENCE UNITS LAB 2132-9(LOINC) Vit B12 SerPl-mCnc >2000 High 232-1 ,245 pg/mL Performed By: #### B12 #### [facility] CLIA [id number] [address] [place] [address] [place] STAT ES OF ERIC CNPN Observed: 08/23/2021 12:00 AM Status: COMPLETED Source: [facility] REPOSITOR Y Telephone (ISAI) DALIA MENDES ([id number]) 1955 F Date Time Provider Department 08/23/21 [...] twice daily f or 90 days. - trdivjejlqj-fxcviqkzh-plopzted (TRELE GY ELLIPTA) 100-62.5-25 mcg inhalation powder [...] 08/19/2021 9:54 AM Status: COMPLETED S ource: [facility] REPO SITORY HNO ID: [id number] Author: Lacy Manzanares APRN.KNITTING INSPECTOR Service: ? Author Type: Nurse Specialist Type: [...] from previous visit: She was admitted to [facility] December 02 through December 06, 2020. Admission [...] 3 to 6 L nasal cannula at [facility]. Treated with IV Solu-Medrol during admission, transitio [...] inhaler refill from Dr. Bentley Follow-up with aviation manager: scheduled for next week, Dr. Bentley's office Complete medications: yes completed. Notes eating OK. Does not take any supp lemental, nothing recommended at discharge notes continues to smoke, EtO H. Notes chronic back pain, stable, no ala rm symptoms, ibuprofen seems to help somewhat. Not interested in physic al therapy. Has not seen spine physician. X-ray completed in February. Requests [place]. Presents today for routine follow up vi sit. She reports no hospitalization or ER visits since last year. She has not seen Dr. Bentley since her ER visit in 2020, needs to [facility] follow-up visit. COPD: Noted to be severe Cough: Present, clear sputum Wheeze: Present Shortness of breath: Present Senior Health Consultant visit: Dr Bentley Oxygen: 2 to 3 [...] by mouth twice daily for 90 days. fjxfslwjbqf-nxborqede-uyxbyiqu (TRELEGY ELLIPTA) 100-62.5-25 mcg inhalation powder Inhale [...] fall. - Chronic obstructive pulmonary disease (COPD) ([facility]) - Dysphagia, unspecified(787.20) - Emphysema lung ([facility]) - Hypertension - INSOMNIA, intermittent 12/17/2006 stress related - Unspecified chronic bronchitis ([facility]) 12/17/2006 Social History Tobacco Use - Smoking [...] use: No ASSESSMENT/PLAN: ASSESSMENT/PLAN: 1. COPD, severe ([facility]) - ICD9: 496, ICD1 0: J44.9 (primary diagnosis) 5. Chronic bronchitis, unspecified clinical quality manager ramon bronchitis type ([facility]) - ICD9: 491.9, ICD10: J42 Currently stable, no recent exacerbatio n. Continue with current treatment unchanged for now. Currently using inha lers routinely. Reports oxygen 2 to 3 L 16/10. She is overdue for follow -up visit with Dr. Bentley her aviation manager. 6. Tobacco use disorder - ICD9: 305.1, [...] RELE ASE 9. PAD (peripheral artery disease) ([facility] ) - ICD9: 443.9, ICD10: I73.9 - ATORVASTATIN 10 MG TABLET 10. Gastroesophageal reflux disease wit hout esophagitis - ICD9: 530.81, ICD10: K21.9 - CBC + DIFF - COMP METABOLIC PANEL - OMEPRAZOLE 40 MG CAPSULE,DELAYED RELE ASE 11. Compression fracture of T5 vertebra , initial encounter ([facility]) - ICD9: 805.2, ICD10: S22.050A 12. Closed fracture of multiple ribs of right side with routine healing - ICD9: V54.19, ICD10: S22.41XD She notes back pain is currently manage d with gabapentin. PDMP website checked and validated. All prescriptions have been APPROPRIATELY filled. No suspicious act ivity was identified. 08/19/2021 by Lacy Manzanares APRN.KNITTING INSPECTOR - GABAPENTIN 300 MG CAPSULE 13. Need [...] this. 6-month follow-up with PCP Lacy Manzanares APRN.KNITTING INSPECTOR Medical Decision Making: Problems: Moderate: 2+ stable chronic illnesses Data: Unique test(s) ordered: 3+ Risk: Moderate: Drug management Medical Decision Making Level: 4 - Mode rate CNOV Observed: 08/19/2021 9:40 AM Status: COMPLETED S ource: [facility] REPOSITOR Y Office Visit (INTMWS) DALIA MENDES ([id number]) 1955 F Date Time Provider Department 08/19/21 9:40 AM LACY MANZANARES INTCristineWS During your visit today, we recorded t he following information about you: Pulse Respiration Blood pressure Weigh t 93/minute 16/minute 132/88 51.7 kg Height 1.613 m Lacy Manzanares APRN.KNITTING INSPECTOR 08/19/2021 10:45 AM Signed SUBJECTIVE: LUNG CANCER [...] from previous visit: She was [facility] December 06, [facility]. [...] calorie malnutrition as evidenced by reduced B HI and cachectic appearance. Dietitian consulted during admission. [...] 24/7 Inhaler: Using currently, [facility]. Bentley Follow-up with aviation manager: scheduled for next week, Dr. Bentley's office Complete medications: yes completed. Notes eating OK. Does not take any supp lemental, nothing recommended at discharge notes continues to smoke, EtO H. Notes chronic back pain, stable, no ala rm symptoms, ibuprofen seems to help somewhat. Not interested in physical th jania. Has not seen spine physician. X-ray completed in February. Requests [place]. Presents today for routine follow up vi sit. She reports no hospitalization or ER visits since last year. She has not seen Dr. Bentley since her ER visit in 2020, needs to schedule follow-up visi t. COPD: Noted to be severe Cough: Present, clear sputum Wheeze: Present Shortness of breath: Present Senior Health Consultant visit: Dr Bentley Oxygen: 2 to 3 [...] by mouth twice daily for 90 days. xkzcocxewqz-dualsbduz-bgcblppt (TRELEGY ELLIPTA) 100-62.5-25 mcg inhalation powder Inhale [...] fall. - Chronic obstructive pulmonary disease (COPD) ([facility]) - Dysphagia, unspecified(787.20) - Emphysema lung ([facility]) - Hypertension - INSOMNIA, intermittent 12/17/2006 stress related - Unspecified chronic bronchitis ([facility]) 12/17/2006 Social History Tobacco Use - Smoking [...] use: No ASSESSMENT/PLAN: ASSESSMENT/PLAN: 1. COPD, severe ([facility]) - ICD9: 496, ICD 10: J44.9 (primary diagnosis) 5. Chronic bronchitis, unspecified clinical quality manager ramon bronchitis type ([facility]) - ICD9: 491.9, ICD10: J42 Currently stable, no recent exacerbatio n. Continue with current treatment unchanged for now. Currently using inha lers routinely. Reports oxygen 2 to 3 L 16/10. She is overdue for follow-up vi sit with Dr. Bentley her aviation manager. 6. Tobacco use disorder - ICD9: 305.1, [...] RELE ASE 9. PAD (peripheral artery disease) ([facility] ) - ICD9: 443.9, ICD10: I73.9 - ATORVASTATIN 10 MG TABLET 10. Gastroesophageal reflux disease wit hout esophagitis - ICD9: 530.81, ICD10: K21.9 - CBC + DIFF - COMP METABOLIC PANEL - OMEPRAZOLE 40 MG CAPSULE,DELAYED RELE ASE 11. Compression fracture of T5 vertebra , initial encounter ([facility]) - ICD9: 805.2, ICD10: S22.050A 12. Closed fracture of multiple ribs of right side with routine healing - ICD9: V54.19, ICD10: S22.41XD She notes back pain is currently manage d with gabapentin. PDMP website checked and validated. All prescriptions have been APPROPRIATELY filled. No suspicious activity was iden tified. 08/19/2021 by Lacy Manzanares APRN.KNITTING INSPECTOR - GABAPENTIN 300 MG CAPSULE 13. Need [...] t esophagitis [K21.9] PAD (peripheral artery disease) ([facility]) [I73.9] Gastroesophageal reflux disease withou t esophagitis [K21.9] Comment:needs to take or gets trouble swallowing Compression fracture of T5 vertebra, i nitial encounter ([facility]) [S22.050A] Closed fracture of multiple ribs of ri ght side with routine healing [S22.41XD] Need for financial support [Z59.9] Essential hypertension [I10] Reactive depression [F32.9] Generalized anxiety disorder [F41.1] Order(s):CBC + DIFF [SQCBCDIF] Order #: [id number] FUTURE COMP METABOLIC PANEL [SQCMP] Order #: [id number] FUTURE TSH BLD [SQTSH] Order #: [id number] FU TURE MAGNESIUM BLD [SQMG1] Order #: [id number] FUTURE VITAMIN B12 BLOOD [SQB12] Order #: [id number] FUTURE atorvastatin (LIPITOR) 10 mg tabletTak e [...] capsuleRfl: 5 PRIMARY CARE SOCIAL WORK CONSULT [0715 337] Order #: [id number]: 1 FUTURE Prescriptions as of 08/19/2021 - [...] twice daily fo r 90 days. - qssuklsdids-ayebiwzxa-cjlezosq (TRELE GY ELLIPTA) 100-62.5-25 mcg inhalation powder [...] at least and continue for 1 w cachil dehe after rash resolves. - promethazine (PHENERGAN) 6.25 [...] E ncounter Date Provider Department Center 08/19/2021 [id number] [facility] Encounter Status:Closed by INDIO MANZANARES I on 08/19/21 IVETTE Observed: 08/09/2021 12:00 AM Status: COMPLETED Source: [facility] REPOSITOR Y Letter Text CNPN Observed: 07/05/2021 12:00 AM Status: COMPLETED Source: [facility] REPOSITOR Y Telephone (OLGAWS) DALIA MENDES ([id number]) 1955 F Date Time Provider Department 07/05/21 [...] a nurse to receive the providers message. ARDHA Fitzgerald RN 07/07/2021 11:55 AM Signed Patient [...] 1 capsule by mouth once daily. - kshshlivwxa-klirokccz-czlmvhfo (TRELE GY ELLIPTA) 100-62.5-25 mcg Inhale 1 [...] Observed: 01/19/2021 12:00 AM Status: COMPLETED Source: [facility] REPOSITOR Y Telephone (INTMWS) VAUGHNDALIA ([id number]) 1955 F Date Time Provider Department 01/19/21 SELWYN GARCIAWS During your visit today, we recorded t he following information about you: Cristine Escalante RN 01/19/2021 12:32 PM S apolinar Randall- [facility]- reports, patient infor med her she is [...] if the pain gets worse. Lacy Manzanares APRN.KNITTING INSPECTOR 01/21/2021 3:05 PM Signed Noted, agree Allergies As of Date: 01/19/2021 Noted Allergy Reaction WELLBUTRIN SR (BUPROPION) 05/08/2008 1 - Mental Status Change Comments: made me hallucinate Date Reviewed: 12/13/2020 Reviewed by: Racheal Lopez LPN - Fully Assessed Reason for Visit: Left rib pain [Other] Prescriptions as of 01/21/2021 - wpifcfouztc-dojodkoge-opeyafdg (TRELE GY ELLIPTA) 100-62.5-25 mcg Inhale 1 [...] SEVERITY SOURCE 05/08/2008 DRUG BUPROPION Mental Ch[facility] INGREDI/[id number] Finn zarate (SNOMED CT) ENCOUNTERS ENCOUNTERS ADMIT/DISCHARGE ACCOUNT NUMBER ADMITTING ENCOUNTER LOCATION SOUR E CLASS 12/13/2021/ [id number] Ambulatory [address] ing:WOIA 08/31/2021/ [id number] [address] ing:WOLB 08/19/2021/ [id number] [address] ing:KAVITA PAYERS PAYERS ENCOUNTER GUARANTOR PAYER SUBSCRIBER SOURCE 12/13/2021 [facility] MEDICAIDPolicy Number: ERIKA: [place] [facility] [id number] Date:6482-50-48Hczd URMILA MENDEZ, Name:[place] [id number] 08/31/2021 Primary DALIA Feldman [facility] c Insurance:CELSO JAMES: [facility] [id number] Number: URMILA MENDEZ [id number] [place] [id number] Date:7211-31-90Uxip Name:N 08/31/2021 [facility]KA: [place] MEDICAIDPolicy Number: [id number] URMILA RDWOOSTER, Date:7702-19-62Vkqy [place] [address] Name:X 08/19/2021 Primary DALIA [facility]man [facility] Insurance:CELSO JAMES: [facility] [id number] Number: URMILA VANESSA, [id number] [place] [id number] Date:1129-24-05Nmvz Name:N 08/19/2021 Secondary DALIA Feldman [facility] Insurance[facility]: [place] MEDICAIDPolicy Number: [id number] URMILA RDWOOSTER, Date:3467-26-63Stpi [place] [address] Name:Albert
--- OUTSIDE RECORDS SUMMARY | 2022-01-18 00:37 | XMS RPT_ITS ---
[...] disorder / NA [facility] F17.200(ICD-10) [place] 08/29/2018 Active Chronic bronchitis, NA Active [facility] unspecified chronic [facility]itis type (HCC) / J42(ICD-10) 10/20/2017 Active Gastroesophageal reflux NA Active [facility] disease without [place]jo esophagitis / K21.9(ICD-10) 06/13/2017 Active Reactive depression / NA Active [facility] F32.9(ICD-10) [place] 02/06/2008 Active Generalized anxiety NA Active [facility] disorder / F41.1(ICD-10) [place] 11/04/2019 Active COPD, severe (HCC) / LACY MANZANARES Active [facility] J44.9(ICD-10) [place] 08/29/2018 Active Hypoxia / R09.02(ICD-10) LACY MANZANARES Active [facility] 08/29/2018 Active Closed fracture of LACY MANZANARES Active [facility] multiple ribs of right Cl [place] side with routine healing / S22.41XD(ICD-10) 08/29/2018 Active Compression fracture of MANZANARESLACY Active [facility] T5 vertebra, initial Clev and encounter (HCC) / S22.050A(ICD-10) 02/27/2017 Active Essential hypertension / BENI LACY Active [facility] I10(ICD-10) [place] 08/19/2021 Active Encounter for screening MANZANARES, LACY Active [facility] for lung cancer / [place] Z12.2(ICD-10) 08/19/2021 Active Need for shingles L[facility] Z23(ICD-10[facility] 08/19/2021 Active Encounter for LACY MANZANARES Active [facility] immunization / [place] Z23(ICD-10) 08/19/2021 Active PAD (peripheral artery LACY MANZANARES Active [facility] disease) (HCC) [facility] 08/19/2021 Active Need for financial LACY MANZANARES Active [facility] support / Z59.9(ICD-10) [facility] PROCEDURES PROCEDURES No Procedure Records FoundRESULTS RESULTS PROGRESS Observed: 01/02/2022 9:19 AM Status: COMPLETED S ource: [facility] HNO ID: [id number] Author: Marion Davis RN Service: ? Author Type: Registered Nurse Type: Progress Notes Filed: 01/02/2022 1:08 PM Note Text: [facility] CDM Enrollment Provider Action/FYI: h/o COPD I spoke with patient and she is in Pall iative Care/ Hospice She is not sure which one but believes she is in Hospice ([facility] [place]) Patient referred by: [facility] [place] Marisol Contact made with patient: Yes - Patien t identified by name and . Discussed care with patient Bernardo this is Marion Davis RN and I am calling from Selwyn Garcia MD office at the [facility]. I am a RN Postal Sorting Officer with our [facility] Chronic Disease Management prog [...] questio ns once a week through your Qwenty account. It will automatically show up for [...] Observed: 01/02/2022 12:00 Status: COMPLETED Rose rce: [facility] Patient Outreach ([facility]) DALIA MENDES ([id number]) 1955 F Date Time Provider Department 01/02/22 MARION DAVIS During your visit today, we recorded t he following information about you: Marion Davis RN 01/02/2022 1:08 PM S igned [facility] Enrollment Provider Action/FYI: h/o COPD I spoke with patient and she is in Pall iative Care/ Hospice She is not sure which one but believes she is in Hospice ([facility] [place]) Patient referred by: [facility] [place] Marisol Contact made with patient: Yes - Patien t identified by name and . Discussed care with patient Bernardo this is Marion Davis, RADHA and I am calling from Selwyn Garcia MD office at the [facility]. I am a RN Postal Sorting Officer with our [facility] Chronic Disease Management program. [...] few questions once a week through your [employer] Checkhart accoun t. It will automatically show up [...] 1 tablet by mouth once daily. - oszmwldwrxy-hmojvfrxu-kmehdcgc (TRELE GY ELLIPTA) 100-62.5-25 mcg inhalation powder [...] Observed: 12/15/2021 12:00 AM Status: COMPLETED Source: [facility] REPOS[facility] Y Telephone (INTMWS) DALIA MENDES ([id number]) 1955 F Date Time Provider Department 12/15/21 [...] last ov on 12-13-21 [facility] Biopsy would have to occur within 30 days of H AND P visit. Once they review the notes will call patient to schedule. Lacy Manzanares APRN.ADMIN ASST 12/20/2021 7:31 A M Signed Has this [...] 1 tablet by mouth once daily. - hquvgavkbet-janonmipu-llytrqpq (TRELE GY ELLIPTA) 100-62.5-25 mcg inhalation powder [...] managed b y this patient by: PATIENT Ajnell Delmi Menjivar Pharm-T Problem List As Of [...] 12/14/2021 2:36 PM Status: COMPLETED S ource: [facility] EDDIE HNO ID: [id number] Author: Joaquim Rodarte RN Service: ? Author Type: Registered Nurse Type: Progress Notes Filed: 12/14/2021 2:43 PM Note Text: [facility] CDM Enrollment Provider Action/FYI: 2nd Call to Pt, unable to leave a messa ge related to Insight / Chronic Disease Management program, will provid e [facility] info once reached. Patient referred by: [facility] [place] Marisol Contact made with patient: No - 2nd att empt to reach patient, left another message: Hi my name is Aster duenas, RN and I am calling from the [facility] on behalf of your PCP, Selwyn [...] the patient after two a ttempted outreaches. Postal Sorting Officer to retry patient in one wetarsha patterson END OUTREACH Aster March RN December 14, 2021 2:36 PM LUIZTOSHARAD Observed: 12/14/2021 12:00 Status: COMPLETED Rose rce: [facility] Patient Outreach ([facility]) DALIA MENDES ([id number]) 1955 F Date Time Provider Department 12/14/21 [...] Center info once reached. Patient referred by: [facility] [place] Marisol Contact made with patient: No - 2nd att empt to reach patient, left another message: Hi my name is Aster duenas, RN and I am calling from the [facility] on behalf of your PCP, Selwyn [...] reach the patient after two attempted outreaches. Postal Sorting Officer to retry patient in one week. END [...] 1 tablet by mouth once daily. - zrgwokdlbgb-ozgxkkqrw-yxqpnyma (TRELE GY ELLIPTA) 100-62.5-25 mcg inhalation powder [...] 12/13/2021 9:40 AM Status: COMPLETED S ource: [facility] RE[facility] Y Office Visit (INTMWS) DALIA MENDES ([id number]) 1955 F Date Time Provider Department 12/13/21 9:40 AM SELWYN GARCIA INTMWS During your visit today, we recorded t he following information about you: Pulse Blood pressure Weight 97/minute 122/88 48.5 kg Selwyn Garcia MD 01/05/2022 2:37 PM Signed This note was created using Socialtextriter. Subjective Dalia Mendes is a 66 year [...] SOB. Working with Dr. Kirill Bentley at [facility] (records management specialist). Plans for lung biopsy discussed. Noted BP [...] by mouth twice daily for 90 days. vmajnsnynhb-pzmeqhiyy-ckygnpun (TRELEG Y ELLIPTA) 100-62.5-25 mcg inhalation powder [...] Abs Lymph 1.00 - 4.00 k/uL 1.25 [place]% % 13.3 Abs [place] <0.87 k/uL 0.77 Eosin% % 3.1 Abs [...] ICD1 0: J44.9 Continue follow up with records management specialist. Okay cough med. - CODEINE 10 MG-GUAIFENESIN [...] Chronic respiratory failure with hy poxia--working with records management specialist. 14. Protein-calorie malntutrition--work ing on getting more calories and protein in; noted that shortness of felton ath with eating limits her intake. Will try to get foods of lower volume with higher amounts of calories and protein. Cost an issue for supplements. Will con bushler working with SW as needed. Selwyn Garcia MD Referring Provider: SELWYN GARCIA [ [id number]] Allergies As of Date: 12/13/2021 Noted Allergy [...] or gets tro uble swallowing COPD, severe ([facility]) [J44.9] Cough [R05.9] Cervical spondylosis without myelopath y [M47.812] Lumbosacral spondylosis without myelo kelly [M47.817] Compression fracture of T5 vertebra wi th routine healing, subsequent encounter [S22.050 D] Closed fracture of multiple ribs of ri ght side with routine healing [S22.41XD] Chronic respiratory failure with hypox ia ([facility]) [J96.11] Protein-calorie malnutrition, unspecif ied severity ([facility]) [E46] Order(s):atorvastatin (LIPITOR) 10 mg t abletTake 1 tablet by mouth once daily.Disp: 30 tabletRfl: 5 citalopram (CELEXA) 20 mg tabletTake 1 tablet by mouth once daily.Disp: 30 tabletRfl: 5 ewkrmebccuv-zfagvhsjy-cgirtacg (TRELE GY ELLIPTA) 100-62.5-25 mcg inhalation powderInhale [...] 1 tablet by mouth once daily. - zoehjailvlo-ouzvxokli-dkdxuvmp (TRELE GY ELLIPTA) 100-62.5-25 mcg inhalation powder [...] Nebulizer for home use. Dx: chronic b [facility] Meds Comments as of 09/02/2018: [...] needed for up to 7 days. - uuznqeqnavp-cpxxvivyk-ixcffkcn (TRELE GY ELLIPTA) 100-62.5-25 mcg inhalation powder [...] OFFICE/OUTPATIENT EST ABLISHED MOD MDM 30-39 MIN [41599] Disposition: Return in about 6 months (around 06/12/2022) for 6 months follow up. Follow-up and Disposition History for E ncounter Date Provider Department Center 12/13/2021 [id number] GARCIA INTMWS [facility] Encounter Status:Closed by ANUSHA GARCIA on 01/05/22 PROGRESS Observed: 12/13/2021 9:40 AM Status: COMPLETED S ource: [facility] HNO ID: [id number] Author: Selwyn Garcia MD Service: ? Author Type: Physician Type: Progress Notes Filed: 01/05/2022 2:37 PM Note Text: This note was created using Socialtextriter. Subjective Dalia Mendes is a 66 year [...] SOB. Working with Dr. Kirill Bentley at [facility] (records management specialist). Plans for lung biopsy discussed. Noted BP [...] in fall. Chronic obstructive pulmonary disease (COPD) ([facility]) Dysphagia, unspecified(787.20) Emphysema lung ([facility]) Hypertension INSOMNIA, intermittent 12/17/2006 stress related Unspecified chronic bronchitis ([facility]) Current Outpatient Medications Medication Sig atorvastatin [...] by mouth twice daily for 90 days. lbilnsfxvvf-vrcztvovm-cyvgyuwr (TRELEG Y ELLIPTA) 100-62.5-25 mcg inhalation powder [...] Abs Lymph 1.00 - 4.00 k/uL 1.25 [place]% % 13.3 Abs [place] <0.87 k/uL 0.77 Eosin% % 3.1 Abs [...] ICD1 0: J44.9 Continue follow up with records management specialist. Okay cough med. - CODEINE 10 MG-GUAIFENESIN [...] Chronic respiratory failure with hy poxia--working with records management specialist. 14. Protein-calorie malntutrition--work ing on getting more calories and protein in; noted that shortness of fel[place] ath with eating limits her intake. Will try to get foods of lower volume w ith higher amounts of calories and protein. Cost an issue for supplements. Will consider working with SW as needed. Selwyn Garcia MD CNPN Observed: 12/05/2021 12:00 AM Status: COMPLETED Source: [facility] REPOS[facility]OR Y Telephone (INTMWS) DALIA MENDES ([id number]) 1955 F Date Time Provider Department 12/05/21 SELWYN GARCIA INTCristineWS During your visit today, we recorded the following information about you: Sugey Amezcuakallie DIRECTOR OF RESEARCH CENTER 12/05/2021 10:34 AM Signed Donya Nurse from [facility] calling was edwige ble to do [...] 12/15/2021 2:32 PM Sig elio Nurse from [facility] was given providers mess age and [...] 1 tablet by mouth once daily. - bymgoaouwhc-fyimusnbh-hfvacprg (TRELE GY ELLIPTA) 100-62.5-25 mcg inhalation powder [...] Observed: 12/02/2021 12:23 Status: COMPLETED Rose rce: [facility] HNO ID: [id number] Author: Joaquim Rodarte, RADHA Service: ? Author Type: Registered Nurse Type: Progress Notes Filed: 12/02/2021 12:26 PM Note Text: [facility] CDM Enrollment Provider Action/FYI: Call to Pt, unable to leave a message related to Insight / Chronic Disease Management program, will provide [facility] info once reached. Patient referred by: [facility] [place] Marisol Contact made with patient: No - Unable to leave message: (Keep encounter open and attempt 2nd outreach in two bu siness days from today). END OUTREACH Aster March RN December 02, 2021 12:23 PM CNPTOUTREACH Observed: 12/02/2021 12:00 Status: COMPLETED Rose rce: [facility] Patient Outreach ([facility]) DALIA MENDES ([id number]) 1955 F Date Time Provider Department 12/02/21 JOAQUIM RODARTE AMBDANNY During your visit today, we recorded t he following information about you: Aster March RN 12/02/2021 12:26 P M Signed [facility] CD Enrollment Provider Action/FYI: Call to Pt, unable to leave a message r elated to Insight / Chronic Disease Management program, will provide [facility] Home [facility] info once reached. Patient referred by: [facility] [place] Marisol Contact made with patient: No - [...] Cmt: Initial CDM Outreach/ [facility] [place] Prescriptions as of 12/02/2021 - atorvastatin (LIPITOR) [...] twice daily fo r 90 days. - xjqwfmjfrin-mnpuhomop-ygykuqcm (TRELE GY ELLIPTA) 100-62.5-25 mcg inhalation powder [...] Observed: 11/25/2021 12:00 AM Status: COMPLETED Source: [facility] REPOSITOR Y Telephone (INTMWS) DALIA MENDES ([id number]) 1955 F Date Time Provider Department 11/25/21 SELWYN GARCIA INTMWS During your visit today, we recorded t he following information about you: Sugey Condon LPN 11/25/2021 9:48 AM S apolinar New from [facility] Student Counselor calling ask ing if any paper work patient needs to take to Dr Bentley-Bindery Machine Setter? Did not see anything in computer. Patient has appt scheduled today with Pulmonary off ice to update her HANDP for biopsy lung mass. Hoping patient does keep that kory t. Virgen works apartment rental clerk and gave her manager star, Delmy phone number is [phone] if needed. Aware patient had cancelled her appt mid October with Lacy Manzanares CLINICAL CARE LEADER. Sugey Condon LPN 11/25/2021 4:16 PM S [...] voicemail, she can always get it from records management specialist if PCP does n ot want to do it. Virgen is faxing copy of [email or web address] Zeer to the office al so. She had given me grand daughter Mikala phone number is [phone]. She thinks patient is having memory issues [...] RN 11/29/2021 11:24 AM S igned Delmy [facility] ELBERT called and is notified of [...] for Visit: Patient Update [1234] Patient Question [8817] Prescriptions as of 11/29/2021 - atorvastatin (LIPITOR) [...] twice daily fo r 90 days. - kndhdnkazdx-asiwwlfth-fefoxguc (TRELE GY ELLIPTA) 100-62.5-25 mcg inhalation powder [...] Nebulizer for home use. [facility] Comments as of 09/02/2018: 09/02/18 [...] 11/23/2021 2:04 PM Status: COMPLETED S ource: [facility] HNO ID: [id number] Author: Joaquim Rodarte RN Service: ? Author Type: Registered Nurse Type: Progress Notes Filed: 12/02/2021 12:20 PM Note Text: [facility] CDM Enrollment Provider Action/FYI: Call to Pt, unable to leave a message r elated to Insight / Chronic Disease Management program, will provide [facility] info once reached. Patient referred by: [facility] [place] Marisol Contact made with patient: No - Unable to leave message: (Keep encounter open and attempt 2nd outreach in two sine days from today). END OUTREACH Aster March RN November 23, 2021 2:04 PM CNPTOUTREACH Observed: 11/23/2021 12:00 Status: COMPLETED Rose rce: [facility] Patient Outreach ([facility]) DALIA MENDES ([id number]) 1955 F Date Time Provider Department 11/23/21 JOAQUIM RODARTE [facility] During your visit today, we recorded t he following information about you: Aster March RN 12/02/2021 12:20 PM Signed [facility] CDM Enrollment Provider Action/FYI: Call to Pt, unable to leave a message r elated to Insight / Chronic Disease Management program, will provide Health [facility] at Home [facility] info once reached. Patient referred by: [facility] [place] Marisol Contact made with patient: No - [...] obstruc tive pulmonary disease, unspecified COPD type ([facility]) [J44.9] Order(s):CONSULT TO PRIMARY CARE [facility] [[id number]] Order #: [id number]: 1 Prescriptions as of 12/02/2021 - atorvastatin [...] twice daily fo r 90 days. - ogyvekmimdf-hsqltkykr-vsagofve (TRELE GY ELLIPTA) 100-62.5-25 mcg inhalation powder [...] Observed: 11/07/2021 12:00 AM Status: COMPLETED Source: [facility] REPOSITOR Y Telephone (INTMWS) DALIA MENDES ([id number]) 1955 F Date Time Provider Department 11/07/21 SELWYN GARCIA INTMWS During your visit today, we recorded t he following information about you: Cristine Escalante RN 11/07/2021 2:22 PM Dot zimmermanjesús Calle[place] - [facility] - phoned to see if manan worthington has seen pcp recently- they were hoping they could get an H AND P, to do lung biopsy tomorrow, for lung mass. Reports patient was scheduled for this 2 weeks ago, but no showed. The 2nd time [facility] scheduled patient, patient was instructed to [...] LPN 11/08/2021 4:03 PM Sig elio Called [facility] radiology dept. They will be doing pts biopsy. They need an update HANDP. Pt missed several HANDP appts with Dr. Bentley the records management specialist with [facility]. Called pt to review the HANDP [...] twice daily fo r 90 days. - xjpanugvvfl-oyutebshb-frkcgpxk (TRELE GY ELLIPTA) 100-62.5-25 mcg inhalation powder [...] at least and continue for 1 w [place] after rash resolves. - promethazine (PHENERGAN) 6.25 [...] Observed: 11/02/2021 12:00 Status: COMPLETED Rose rce: [facility] Patient Outreach (INTMMN) DALIA MENDES ([id number]) 1955 F Date Time Provider Department 11/02/21 SELWYN GARCIA INTMMN During your visit today, we recorded t he following information about you: Allergies As of Date: 11/02/2021 Noted Allergy Reaction WELLBUTRIN SR (BUPROPION) 05/08/2008 1 - Mental Status Change Comments: made me hallucinate Date Reviewed: 08/19/2021 Reviewed by: Racheal Lopez LPN - Fully Assessed Visit Diagnosis:Encounter for screening mammogram for breast cancer [Z12.31] Order(s):[facility] SCREENING [[id number]] Order #: [id number] FUTURE Prescriptions as of 11/07/2021 - atorvastatin [...] twice daily fo r 90 days. - axwpicqeyua-hcmvexrta-nqzjbvsx (TRELE GY ELLIPTA) 100-62.5-25 mcg inhalation powder [...] myelop athy [M47*03/02/2020 05/27/2020 Encounter Status:Closed by [employer] [facility] on 11/07/21 CNPN Observed: 09/01/2021 12:00 AM Status: COMPLETED Source: [facility] REPOSITOR Y Telephone (INTMWS) DALIA MENDES ([id number]) 1955 F Date Time Provider Department 09/01/21 LACY MANZANARES During your visit today, we recorded t he following information about you: Lacyfatoumata Manzanares APRN.ADMIN ASST 09/01/2021 4:49 PM Signed Please let he [...] Abs Lymph 1.00 - 4.00 k/uL 1.25 [place]% % 13.3 Abs [place] <0.87 k/uL 0.77 Eosin% % 3.1 Abs [...] twice daily fo r 90 days. - mlpndntimmi-cscppwatz-cvccttrk (TRELE GY ELLIPTA) 100-62.5-25 mcg inhalation powder [...] at least and continue for 1 w [place] after rash resolves. - promethazine (PHENERGAN) 6.25 [...] 8:25 Status: Maday Feldman ource: [facility] Order Comment: Specimen Type: BLOOD SP ECIMEN Ordering Facility: [facility] Address: [address] [place] [address], [facility] [address] TYPE CODE TESTS RESULT OUT OF REFERENCE [...] MCHC RBC 32.7 30.5-36.0 g/dL Auto-mCnc LAB 36325-2(LOINC) RDW RBC-Rto 13.2 11.5-15.0 % LAB 777-3(LOINC) Platelet # Bld 390 150-400 k/uL Auto LAB 50236-1(LOINC) PMV Bld Auto 10.1 9.0-12.7 fL LAB [...] GRAN <0.03 <0.10 k/u L ABS LAB 04407-6([facility]) nRBC/100 WBC 0.0 /100 WBC Bld-Rto LAB 771-6([facility]) nRBC # Bld Auto <0.01 <0.01 k/uL LAB 73060-7(INC) Differential Auto method Bld Performed By: #### 30905-4 #### [facility] CLIA [id number] [address] [place] [address] STAT ES OF ERIC COMP METAB 2000 PNL Collected: 08/31/2021 8:25 Status: Maday Feldman ource: [facility] SERPL AM [facility] Order Comment: Specimen Type: BLOOD SP ECIMEN Ordering Facility: [facility] Address: [address] [place] [address], [place] [address] TYPE CODE TESTS RESULT OUT OF RANGE REFERENCE UNITS LAB 2885-2(LOINC) Prot SerPl-mCnc 6.9 6.3-8.0 g/dL LAB 1751-7(LOINC) Albumin 4.3 3.9-4.9 g/dL SerPl-mCnc LAB 87114-5(LOINC) Calcium 9.0 8.5-10.2 mg/dL SerPl-mCnc LAB 1975-2(LOINC) Bilirub 0.7 0.2-1.3 mg/dL SerPl-mCnc LAB 6768-6(LOINC) ALP SerPl-cCnc 61 34-123 U/L LAB 1920-8(LOINC) AST SerPl-cCnc 17 13-35 U/L LAB 1742-6(LOINC) ALT SerPl-cCnc 12 7-38 U/L LAB 2345-7(LOINC) Glucose 97 74-99 mg/dL SerPl-mCnc Result Comment: The [place] Diabetes Association (ADA) provides guidance for cutoff [...] Standards of Medical Care in Diabetes 2016, [place] Diabetes Association. Diabetes Care. 2016.39(Suppl 1). LAB 3094-0(LOINC) BUN SerPl-mCnc 16 7-21 mg/dL LAB 2160-0(LOINC) Creat SerPl-mCnc 0.54 Low 0.58-0 .96 mg/dL LAB 2951-2(LOINC) Sodium SerPl-sCnc 133 Low 136-14 4 mmol/L LAB 2823-3(LOINC) Potassium 4.0 3.7-5.1 mmo l/L SerPl-sCnc LAB 2075-0(LOINC) Chloride 96 Low 97-105 mmol /L SerPl-sCnc LAB 2027-(LOINC) CO2 SerPl-sCnc 26 22-30 mmol/L LAB 13096-7(LOINC) Anion Gap 11 9-18 mmo l/L SerPl-sCnc [...] accurately reflect actual GFR. Performed By: #### 63197-0, 30484-9, L BENJI, 3016-3 #### [facility] CLIA [id number] [address] [place], [place] [address]K [address] OF ERIC LIPID PANEL, NONFASTING Collected: 08/31/2021 Status: F So urce: [facility] 8:25 AM [facility] Order Comment: Specimen Type: BLOOD SP ECIMEN [facility] Address: [address] [place] [address], [place] [id number] TYPE CODE TESTS RESULT OUT OF RANGE [...] Desk Reference: National Heart, Lung, and Blood [place]. National Institutes of Health. 2001: NIH Publication No. 01-3305. 2. An International Atherosclerosis Soc iety position paper: global recommendations for the management of dyslipidemia: executive summary, Atherosclerosis. 2014: 232(2):410-413. Performed By: #### 97265-8, 03753-4, L IPNF, 3016-3 #### [facility] CLIA [id number] [address] [place] [address] [place] STAT ES OF ERIC MAGNESIUM SERPL-MCNC Collected: 08/31/2021 8:25 Status: F Source: [facility] Order Comment: Specimen Type: BLOOD SP ECIMEN Ordering Facility: [facility] Address: [address] [place] [address], [facility] [address] TYPE CODE TESTS RESULT OUT OF RANGE REFERENCE UNITS LAB 70749-7(LOINC) Magnesium 1.9 1.7-2.3 mg /dL SerPl-mCnc Performed By: #### 60158-9, 01957-1, L IPNF, 3016-3 #### [facility] CLIA [id number] [address] [place] [address] [place] STAT ES OF ERIC TSH SERPL-ACNC Collected: 08/31/2021 8:25 AM Status: Maday Ruiz urce: [facility] REPOSITOR Y Order Comment: Specimen Type: BLOOD SP ECIMEN [facility] Address: [address] [place] [id number] TYPE CODE TESTS RESULT OUT OF RANGE REFERENCE UNITS LAB 3016-3(LOINC) TSH SerPl-aCnc 1.210 0.270-4.2 00 mIU/L Performed By: #### 67044-8, 25357-7, LIPNF, 3016-3 #### [facility] CLIA [id number] [address] [place] [address] [place] STAT ES OF ERIC VITAMIN B12 BLOOD Collected: 08/31/2021 8:25 Status: Maday Rose rce: [facility]PO SIT[facility] Order Comment: Specimen Type: BLOOD SP ECIMEN Ordering Facility: [facility] Address: [address] [place], [place] [id number] TYPE CODE TESTS RESULT OUT OF RANGE REFERENCE UNITS LAB 2132-9(LOINC) Vit B12 SerPl-mCnc >2000 High 232-1 ,245 pg/mL Performed By: #### B12 #### [facility] CLIA [id number] [address] [place] [address] UNITED STAT ES OF ERIC CNPN Observed: 08/23/2021 12:00 AM Status: COMPLETED Source: [facility] REPOS[facility] Y Telephone (ISAI) DALIA MENDES ([id number]) 1955 F Date Time Provider Department 08/23/21 [...] twice daily f or 90 days. - htkabbjsozs-oavtbfzbm-lrctpnwy (TRELE GY ELLIPTA) 100-62.5-25 mcg inhalation powder [...] 08/19/2021 9:54 AM Status: COMPLETED S ource: [facility] HNO ID: [id number] Author: Lacy Manzanares APRN.ADMIN ASST Service: ? Author Type: Nurse Specialist Type: [...] from previous visit: She was admitted to [facility] December 02 through December 06, 2020. [...] 3 to 6 L nasal cannula at [facility]. Treated with IV Solu-Medrol during admission, [...] inhaler refill from Dr. Bentley Follow-up with records management specialist: scheduled for next week, Dr. Bentley's office Complete medications: yes completed. Notes eating OK. Does not take any supp lemental, nothing recommended at discharge notes continues to smoke, EtO H. Notes chronic back pain, stable, no ala rm symptoms, ibuprofen seems to help somewhat. Not interested in physic al therapy. Has not seen spine physician. X-ray completed in February. Requests [place]. Presents today for routine follow up vi sit. She reports no hospitalization or ER visits since last year. She has not seen Dr. Bentley since her ER visit in 2020, needs to [facility] follow-up visit. COPD: Noted to be severe Cough: Present, clear sputum Wheeze: Present Shortness of breath: Present Bindery Machine Setter visit: Dr Bentley Oxygen: 2 to 3 [...] food gabapentin (NEURONTIN) 300 mg capsule T kma 1 capsule by mouth twice daily for 90 days. itmwbekzlwq-xqxbguiym-ljfylnwi (TRELEGY ELLIPTA) 100-62.5-25 mcg inhalation powder Inhale [...] fall. - Chronic obstructive pulmonary disease (COPD) ([facility]) - Dysphagia, unspecified(787.20) - Emphysema lung ([facility]) - Hypertension - INSOMNIA, intermittent 12/17/2006 stress related - Unspecified chronic bronchitis ([facility]) 12/17/2006 Social History Tobacco Use - [...] use: No ASSESSMENT/PLAN: ASSESSMENT/PLAN: 1. COPD, severe ([facility]) - ICD9: 496, ICD1 0: J44.9 (primary diagnosis) 5. Chronic bronchitis, unspecified campaign manager ramon bronchitis type ([facility]) - ICD9: 491.9, ICD10: J42 Currently stable, no recent exacerbatio n. Continue with current treatment unchanged for now. Currently using inha lers routinely. Reports oxygen 2 to 3 L 16/10. She is overdue for follow -up visit with Dr. Bentley her records management specialist. 6. Tobacco use disorder - ICD9: 305.1, [...] RELE ASE 9. PAD (peripheral artery disease) ([facility] ) - ICD9: 443.9, ICD10: I73.9 - ATORVASTATIN 10 MG TABLET 10. Gastroesophageal reflux disease wit hout esophagitis - ICD9: 530.81, ICD10: K21.9 - CBC + DIFF - COMP METABOLIC PANEL - OMEPRAZOLE 40 MG CAPSULE,DELAYED RELE ASE 11. Compression fracture of T5 vertebra , initial encounter ([facility]) - ICD9: 805.2, ICD10: S22.050A 12. Closed fracture of multiple ribs of right side with routine healing - ICD9: V54.19, ICD10: S22.41XD She notes back pain is currently manage d with gabapentin. PDMP website checked and validated. All prescriptions have been APPROPRIATELY filled. No suspicious act ivity was identified. 08/19/2021 by Lacy Manzanares APRN.ADMIN ASST - GABAPENTIN 300 MG CAPSULE 13. Need [...] this. 6-month follow-up with PCP Lacy Manzanares APRN.ADMIN ASST Medical Decision Making: Problems: Moderate: 2+ stable chronic illnesses Data: Unique test(s) ordered: 3+ Risk: Moderate: Drug management Medical Decision Making Level: 4 - Mode rate CNOV Observed: 08/19/2021 9:40 AM Status: COMPLETED S ource: [facility] Y Office Visit (INTMWS) DALIA MENDES ([id number]) 1955 F Date Time Provider Department 08/19/21 9:40 AM LACY MANZANARES INTCristineWS During your visit today, we recorded t he following information about you: Pulse Respiration Blood pressure Weigh t 93/minute 16/minute 132/88 51.7 kg Height 1.613 m Lacy Manzanares APRN.ADMIN ASST 08/19/2021 10:45 AM Signed SUBJECTIVE: LUNG CANCER [...] from previous visit: [facility] December 06, 2020. [...] calorie malnutrition as evidenced by reduced B NC and cachectic appearance. Dietitian consulted during admission. [...] 24/7 Inhaler: Using currently, [facility] from Dr. Bentley Follow-up with records management specialist: scheduled for next week, Dr. Bentley's office Complete medications: yes completed. Notes eating OK. Does not take any supp lemental, nothing recommended at discharge notes continues to smoke, EtO H. Notes chronic back pain, stable, no ala rm symptoms, ibuprofen seems to help somewhat. Not interested in physical th jania. Has not seen spine physician. X-ray completed in February. Requests [place]. Presents today for routine follow up vi sit. She reports no hospitalization or ER visits since last year. She has not seen Dr. Bentley since her ER visit in 2020, needs to schedule follow-up visi t. 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 tfkxcruiiwh-yirtfxras-mzxjqyxm (TRELEGY ELLIPTA) 100-62.5-25 mcg inhalation powder Inhale [...] fall. - Chronic obstructive pulmonary disease (COPD) ([facility]) - Dysphagia, unspecified(787.20) - Emphysema lung ([facility]) - Hypertension - INSOMNIA, intermittent 12/17/2006 stress related - Unspecified chronic bronchitis ([facility]) 12/17/2006 Social History Tobacco Use - [...] use: No ASSESSMENT/PLAN: ASSESSMENT/PLAN: 1. COPD, severe ([facility]) - ICD9: 496, ICD 10: J44.9 (primary diagnosis) 5. Chronic bronchitis, unspecified campaign manager ramon bronchitis type ([facility]) - ICD9: 491.9, ICD10: J42 Currently stable, no recent exacerbatio n. Continue with current treatment unchanged for now. Currently using inha lers routinely. Reports oxygen 2 to 3 L 16/10. She is overdue for follow-up vi sit with Dr. Bentley her records management specialist. 6. Tobacco use disorder - ICD9: 305.1, [...] RELE ASE 9. PAD (peripheral artery disease) ([facility] ) - ICD9: 443.9, ICD10: I73.9 - ATORVASTATIN 10 MG TABLET 10. Gastroesophageal reflux disease wit hout esophagitis - ICD9: 530.81, ICD10: K21.9 - CBC + DIFF - COMP METABOLIC PANEL - OMEPRAZOLE 40 MG CAPSULE,DELAYED RELE ASE 11. Compression fracture of T5 vertebra , initial encounter ([facility]) - ICD9: 805.2, ICD10: S22.050A 12. Closed fracture of multiple ribs of right side with routine healing - ICD9: V54.19, ICD10: S22.41XD She notes back pain is currently manage d with gabapentin. PDMP website checked and validated. All prescriptions have been APPROPRIATELY filled. No suspicious activity was iden tified. 08/19/2021 by Lacy Manzanares APRN.ADMIN ASST - GABAPENTIN 300 MG CAPSULE 13. Need [...] t esophagitis [K21.9] PAD (peripheral artery disease) ([facility]) [I73.9] Gastroesophageal reflux disease withou t esophagitis [K21.9] Comment:needs to take or gets trouble swallowing Compression fracture of T5 vertebra, i nitial encounter ([facility]) [S22.050A] Closed fracture of multiple ribs of ri ght side with routine healing [S22.41XD] Need for financial support [Z59.9] Essential hypertension [I10] Reactive depression [F32.9] Generalized anxiety disorder [F41.1] Order(s):CBC + DIFF [SQCBCDIF] Order #: [id number] FUTURE COMP METABOLIC PANEL [SQCMP] Order #: [id number] FUTURE TSH BLD [SQTSH] Order #: [id number] FU TURE MAGNESIUM BLD [SQMG1] Order #: [id number] FUTURE VITAMIN B12 BLOOD [SQB12] Order #: [id number] FUTURE atorvastatin (LIPITOR) 10 mg tabletTak e [...] capsuleRfl: 5 PRIMARY CARE SOCIAL WORK CONSULT [4545 075] Order #: [id number]: 1 FUTURE Prescriptions as of 08/19/2021 - [...] twice daily fo r 90 days. - ajxalwwepvq-ocijeyxee-tyuquatf (TRELE GY ELLIPTA) 100-62.5-25 mcg inhalation powder [...] at least and continue for 1 w [place] after rash resolves. - promethazine (PHENERGAN) 6.25 [...] E ncounter Date Provider Department Center 08/19/2021 [id number] MANZANARESMIGUEL [facility] SONDRA Encounter Status:Closed by INDIO MANZANARES I on 08/19/21 IVETTE Observed: 08/09/2021 12:00 AM Status: COMPLETED Source: [facility] Y Letter Text CNPN Observed: 07/05/2021 12:00 AM Status: COMPLETED Source: [facility] REPOS[facility] Y Telephone (OLGAWS) DALIA MENDES ([id number]) 1955 F Date Time Provider Department 07/05/21 [...] 1 capsule by mouth once daily. - dicamroxsnh-leqtyldfw-lddphlqq (TRELE GY ELLIPTA) 100-62.5-25 mcg Inhale 1 [...] - diclofenac sodium (VOLTAREN) 1 % topi pihlip gel Apply 2 grams to affected area [...] Observed: 01/19/2021 12:00 AM Status: COMPLETED Source: [facility] REPOS[facility]OR Y Telephone (INTMWS) VAUGHNDALIA ([id number]) 1955 F Date Time Provider Department 01/19/21 SELWYN GARCIAWS During your visit today, we recorded t he following information about you: Cristine Escalante RN 01/19/2021 12:32 PM S apolinar Randall- [facility]- reports, patient infor med her she [...] if the pain gets worse. Lacy Manzanares APRN.ADMIN ASST 01/21/2021 3:05 PM Signed Noted, agree Allergies As of Date: 01/19/2021 Noted Allergy Reaction WELLBUTRIN SR (BUPROPION) 05/08/2008 1 - Mental Status Change Comments: made me hallucinate Date Reviewed: 12/13/2020 Reviewed by: Racheal Lopez LPN - Fully Assessed Reason for Visit: Left rib pain [Other] Prescriptions as of 01/21/2021 - ugkmoqxzgln-eyuklyavj-fwqbgrph (TRELE GY ELLIPTA) 100-62.5-25 mcg Inhale 1 [...] SEVERITY SOURCE 05/08/2008 DRUG BUPROPION [facility] INGREDI/[id number] Finn zarate (SNOMED CT) ENCOUNTERS ENCOUNTERS ADMIT/DISCHARGE ACCOUNT NUMBER ADMITTING ENCOUNTER LOCATION SOUR E CLASS 12/13/2021/ [id number] Ambulatory [address] ing:WOIA 08/31/2021/ [id number] [address] ing:WOLB 08/19/2021/ [id number] [address] ing:KAVITA PAYERS PAYERS ENCOUNTER GUARANTOR PAYER SUBSCRIBER SOURCE 12/13/2021 [facility] MEDICAIDPolicy Number: ERIKA: [facility] [id number] Date:4773-39-60Qlth URMILA MENDEZ, Name:[place] [id number] 08/31/2021 Primary DALIA Feldman [facility] c Insurance:CELSO JAMES: [facility] [id number] Number: URMILA MENDEZ [id number] [place] [id number] Date:1632-31-14Yzeo Name:N 08/31/2021 [facility]:[place] ERIKA: [place] MEDICAIDPolicy Number: [id number] URMILA RDWOOSTER, Date:5203-58-19Ujbx [place] [address] Name:X 08/19/2021 Primary DALIA Feldman [facility] Insurance:CELSO JAMES: [facility] [id number] Number: URMILA VANESSA, [id number] [place] [address] Date:5031-39-35Wszz Name:N 08/19/2021 Secondary DALIA Feldman [facility] [place] MEDICAIDPolicy Number: [id number] URMILA RDWOOSTER, Date:3078-15-13Djtn [place] [address] Name:Albert
--- NOTE | 2022-01-18 00:44 | HP.PCM.HOS_ITS ---
HPI - General General Date of Admission: 01/18/22 Date of Service: 01/18/22 Chief Complaint: lethargy HPI Narrative SPENCER MENDES, is a 66 F who presents from home with lethargy. Patient is full code and involved with hospice. Patient was more lethargic today and the patient was brought into the hospital. Hospice was revoked. Patient is in hospice due to her end-stage COPD. Patient does take narcotics and did receive Narcan which did wake her up with subsequently received morphine later. There therefore, she is very lethargic and listless at this time and a very poor historian so the history is obtained through the ER physician documentation. Patient was found to have a urinary tract infection and received ceftriaxone. Family was here previously and the daughter was arrested and taken away. The , Benedicto, was there earlier and said that he does not want the patient go back in the hospice. Patient cannot tell me what she wants at this time. [facility] Medical History (Updated 01/18/22 @ 00:[address] Matt Traylor, ) Alcohol dependence Alcoholism Allergic rhinitis Anxiety Back pain Chronic bronchitis Chronic hyponatremia Chronic hypoxemic respiratory failure Chronic respiratory failure with hypoxia COPD (chronic obstructive pulmonary disease) Depression Dysphagia Emphysema of lung Hypertension Hyponatremia Insomnia Nicotine dependence, cigarettes, uncomplicated Protein-calorie malnutrition, moderate Smoker Smoking greater than 30 pack years Tobacco abuse Home Medications citalopram 20 mg tablet 20 mg PO QHS mood 10/13/15 [History Last Taken 09/27/21] omeprazole 40 mg capsule,delayed release 40 mg PO QHS acid reflux 10/13/15 [History Last Taken 09/27/21] amlodipine 2.5 mg tablet (Norvasc) 2.5 mg PO QHS blood pressure 11/12/18 [History Last Taken 09/27/21] cyclobenzaprine 10 mg tablet 10 mg PO TID PRN muscle spasm 11/12/18 [History Last Taken 09/27/21] gabapentin 300 mg capsule 600 mg PO QHS pain 11/12/18 [History Last Taken 09/27/21] atorvastatin 10 mg tablet 10 mg PO QHS CHOLESTEROL 10/25/20 [History Last Taken 09/27/21] ibuprofen 800 mg tablet 800 mg PO TID PRN Pain 10/25/20 [History Last Taken 10/24/20] codeine 10 mg-guaifenesin 100 mg/5 mL oral liquid 5 ml PO Q6H PRN Cough 08/31/21 [History Last Taken 1 Week Ago ~09/21/21] cholecalciferol (vitamin D3) 25 mcg (1,000 unit) tablet 25 mcg PO DAILY supplement 09/28/21 [History Last Taken 09/27/21] fluticasone fur. 200 mcg-umeclid 62.5 mcg-vilant 25 mcg inhalat.powder (Trelegy Ellipta) 1 inh inhalation DAILY copd 09/28/21 [History Last Taken 09/28/21] losartan 50 mg tablet 50 mg PO BID bp 09/28/21 [History Last Taken 09/27/21] thiamine HCl (vitamin B1) 100 mg tablet 100 mg PO TID supplement 09/28/21 [History Last Taken 09/27/21] nicotine 21mg/24hr-14mg/24hr-7mg/24hr daily transderm patches,sequentl 1 patch transdermal DAILY #56 patches 09/29/21 [Rx Last Taken Unknown] albuterol sulfate 90 mcg/actuation aerosol inhaler 2 puff inhalation Q4H PRN PRN Shortness Of Breath ##1 10/06/21 [Rx Last Taken Unknown] doxycycline hyclate 100 mg tablet 100 mg PO BID #20 tabs 10/06/21 [Rx Last Taken Unknown] prednisone 10 mg tablet 10 mg PO QDAY #30 tabs 10/06/21 [Rx Last Taken Unknown] budesonide 1 mg/2 mL suspension for nebulization 1 mg (2 mL) inhalation BID #60 mL 11/25/21 [Rx Last Taken Unknown] ipratropium 0.5 mg-albuterol 3 mg (2.5 mg base)/3 mL nebulization soln 3 ml inhalation Q4H PRN PRN SOB &/OR WHEEZING #180 mL 11/25/21 [Rx Last Taken Unknown] cephalexin 500 mg capsule 500 mg PO Q6 #40 caps 01/17/22 [Rx Last Taken Unknown] Allergy/AdvReac Type Severity Reaction Status Date / Time bupropion [From Wellbutrin] Allergy Severe hallucinati Verified 01/17/22 19:39 ons Family History Mother Heart disease Hypertension CAD (coronary artery disease) Other No pertinent family history Surgical History S/P chest tube placement Social History household members: significant other history of recent travel: No Smoking Status: Current every day smoker tobacco type: cigarettes quit status: considering quitting counseling given: provider counseling and counseling >10 minutes alcohol intake: current alcohol intake frequency: 3 or more drinks per day Alcohol type: beer details: 4-6 beers daily. substance use type: does not use ROS Review of Systems ROS Unobtainable: due to encephalopathy Vital Signs Vital Signs Vital Signs: 01/17/22 19:37 01/17/22 20:01 01/17/22 20:02 Temperature 36.5 C L Temperature Source Temporal Pulse Rate 91 85 Respiratory Rate 15 20 H Respiratory Effort Normal Non-Labored Respiratory Pattern Normal Blood Pressure 94/67 115/83 H Blood Pressure Mean 76 93 Pulse Ox 85 100 Oxygen Delivery Method Room Air Nasal Cannula Oxygen Flow Rate (L/min) 2 01/17/22 21:07 01/17/22 21:27 01/17/22 23:08 Temperature Temperature Source Pulse Rate 105 H 107 H 81 Respiratory Rate 31 H 28 H 28 H Respiratory Effort Respiratory Pattern Tachypnea Blood Pressure 121/72 H 141/78 H Blood Pressure Mean 88 99 Pulse Ox 96 98 Oxygen Delivery Method Nasal Cannula Room Air Oxygen Flow Rate (L/min) 2 01/18/22 00:20 Temperature 36.8 C Temperature Source Oral Pulse Rate 112 H Respiratory Rate 30 H Respiratory Effort Respiratory Pattern Blood Pressure 167/98 H Blood Pressure Mean 121 Pulse Ox 96 Oxygen Delivery Method Nasal Cannula Oxygen Flow Rate (L/min) 2 Weight Weight: 40.823 kg Body Mass Index (BMI) 14.5 Physical Exam Const Constitutional Narrative: Opens her eyes to voice. Answers some questions appropriately but dozes off. No respiratory distress. No conversational dyspnea. Cachectic appearance with temporal wasting. HEENT HEENT Narrative: Temporal wasting Neck no lymphadenopathy Resp Resp Narrative: Diminished but clear throughout. Cardio regular rate, regular rhythm, S1 normal heart sound and S2 normal heart sound GI normal to inspection, nondistended, normoactive bowel sounds, soft to palpation, non-tender and non-distended Extremity Extremity Narrative: Profound atrophy in upper and lower extremities. Neuro moves all extremities Results Lab / Micro Data Result Diagrams: 01/17/22 21:00 01/17/22 21:00 Labs: Laboratory Results - last 24 hr 01/17/22 21:00: WBC 9.4, RBC 4.34, Hgb 13.0, Hct 39.5, MCV 91.0, MCH 30.0, MCHC 32.9, RDW Std Deviation 45.0 H, RDW Coeff of Oral 13.3, Plt Count 285, MPV 10.0, Immature Gran % (Auto) 0.600, Neut % (Auto) 79.0 H, Lymph % (Auto) 9.9 L, [place] % (Auto) 10.4 H, Eos % (Auto) 0.0, Baso % (Auto) 0.1, Absolute Neuts (auto) 7.5, Absolute Lymphs (auto) 0.93, Nucleated RBC % 0 01/17/22 21:00: Sodium 129 L, Potassium 4.7, Chloride 100, Carbon Dioxide 22.0, Anion Gap 7, BUN 22 H, Creatinine 0.62, Estim Creat Clear Calc 34.70, Est GFR (MDRD) Af Amer 122, Est GFR (MDRD) Non-Af 101, BUN/Creatinine Ratio 35.3 H, Glucose 93, Calcium 8.0 L 01/17/22 23:00: Urine Color Yellow, Urine Clarity Sl. Cloudy, Urine pH 7.0, Ur Specific [place] 1.010, Urine Protein 30 H, Urine Glucose (UA) Normal, Urine Ketones Negative, Urine Occult Blood 25 H, Urine Nitrite Positive H, Urine Bilirubin Negative, Urine Urobilinogen 1 H, Ur Leukocyte Esterase 500 H, Urine RBC 0-5 SEEN, Urine WBC 50-100 SEEN, Ur Squamous Epith Cells 0 SEEN, Urine Bacteria 4+, Urine Mucus 0 SEEN Micro: Microbiology 01/17/22 20:48 Nasal Secretion SARS-CoV-2 & FLU Antigen (Rapid) - Final Radiology Impression Chest X-Ray 01/17/22 22:06 IMPRESSION: No convincing acute intrathoracic abnormality. Chronic lung changes, moderate. Electronically Signed: Yudelka Bird MD at 22:40 EDT Reading Location ID and State: [facility] / [place] Tel , Service support , Assessment & Plan Assessment/Plan (1) Toxic encephalopathy: PLAN: I reviewed the patient's OARRS: Patient has a prescription for 300 mg of gabapentin No. 30 filled on the , 0.5 mg of lorazepam No. 30 filled on , 10 mg of oxycodone No. 60 received on the . Do not feel this was an actual overdose as patient was not in any distress and just more lethargic. But since the focus of therapy now is to not had patient in hospice, according to the family. We will hold off on these medications for the time being until the patient can tell us what she wants to proceed with. If she wishes to proceed with medical care then we need to de-escalate medications and perhaps move these medications altogether. Its does not seem that patient really has much in way of quality of life and she previously expressed that she wanted to go home and smoke and drink alcohol. No need for additional Narcan at this time (2) Debility: PLAN: PT OT evaluate and treat (3) Protein-calorie malnutrition, moderate: PLAN: Due to her chronic medical conditions consult nutrition (4) Hyponatremia: PLAN: Work-up had not been formally completed back in September. Patient's TSH was low at that time. We will recheck to see if that still an issue. Patient's cortisol was normal. May be due to beer [place] ven[place] (5) Alcoholism: PLAN: Add thiamine and folate Unclear much patient actually drinks currently No treatment for acute alcohol withdrawal at this point PLAN: Plan Chronic conditions * COPD: Continue with her aerosols and but desonide * Depression: Continue citalopram * Hypertension: Continue with amlodipine VTE prophylaxis with Lovenox CODE STATUS: Previous addressed with the ER physician and family. Patient is to be full code. Would recommend readdressing when the patient is more alert to see if that is how she feels. Charges/Coding Visit Charges Inpatient E&M: 80458 Init Hosp L3
--- NOTE | 2022-01-18 02:50 | NURSING ---
patient came up from ED, pt is very lethargic and has a hard time staying awake. Will need to clarify if patient is on prednisone taper? Also clarify nicotine patch dosage?
--- OUTSIDE RECORDS SUMMARY | 2022-01-18 03:52 | XMS RPT_ITS ---
[...] disorder / NA [facility] F17.200(ICD-10) [place] 08/29/2018 Active Chronic bronchitis, NA Active [facility] unspecified chronic [facility] bronchitis type (HCC) / J42(ICD-10) 10/20/2017 Active Gastroesophageal reflux NA Active [facility] disease without Ara[place]jo esophagitis / K21.9(ICD-10) 06/13/2017 Active Reactive depression / NA Active [facility] F32.9(ICD-10) [place] 02/06/2008 Active Generalized anxiety NA Active [facility] disorder / F41.1(ICD-10) [place] 11/04/2019 Active COPD, severe (HCC) / LACY MANZANARES Active [facility] J44.9(ICD-10) [place] 08/29/2018 Active Hypoxia / R09.02(ICD-10) LACY MANZANARES Active [facility] 08/29/2018 Active Closed fracture of LACY MANZANARES Active [facility] multiple ribs of right Cl [facility] side with routine healing / S22.41XD(ICD-10) 08/29/2018 Active Compression fracture of MANZANARESLACY Active [facility] T5 vertebra, initial Clev and encounter (HCC) / S22.050A(ICD-10) 02/27/2017 Active Essential hypertension / BENI LACY Active [facility] I10(ICD-10) [place] 08/19/2021 Active Encounter for screening MANZANARES, LACY Active [facility] for lung cancer / [place] [facility] Z12.2(ICD-10) 08/19/2021 Active Need for shingles L[facility] Z23(ICD-10[facility] 08/19/2021 Active Encounter for LACY MANZANARES Active [facility] immunization / [place] Z23(ICD-10) 08/19/2021 Active PAD (peripheral artery LACY MANZANARES Active [facility] disease) [facility] 08/19/2021 Active Need for financial LACY MANZANARES Active [facility] support / Z59.9(ICD-10) [facility] PROCEDURES PROCEDURES No Procedure Records FoundRESULTS RESULTS PROGRESS Observed: 01/02/2022 9:19 AM Status: COMPLETED S ource: [facility] HNO ID: [id number] Author: Marion Davis RN Service: ? Author Type: Registered Nurse Type: Progress Notes Filed: 01/02/2022 1:08 PM Note Text: [facility] CDM Enrollment Provider Action/FYI: h/o COPD I spoke with patient and she is in Pall iative Care/ Hospice She is not sure which one but believes she is in Hospice ([facility] [place]) Patient referred by: [facility] [place] Marisol Contact made with patient: Yes - Patien t identified by name and . Discussed care with patient Bernardo this is Marion Davis RN and I am calling from Selwyn Garcia MD office at the [facility]. I am a RN Educational Assistant Teacher with our inSight Chronic Disease Management prog [...] questio ns once a week through your [employer] account. It will automatically show up for [...] with Selwyn Garcia MD if needed. I a m going to sign you up for the program now. Enrollment Questions: Let's get you enrolled in the program. No, reason: Other: Hospice Closing: Patient does not meet criteria. PCC to reassess patient in a month. JUDAH Observed: 01/02/2022 12:00 Status: COMPLETED Rose rce: [facility] Patient Outreach ([facility]) DALIA MENDES ([id number]) 1955 F Date Time Provider Department 01/02/22 MARION DAVIS During your visit today, we recorded t he following information about you: Marion Davis RN 01/02/2022 1:08 PM S [address] [facility] Enrollment Provider Action/FYI: h/o COPD I spoke with patient and she is in Pall iative Care/ Hospice She is not sure which one but believes she is in Hospice ([facility] [place]) Patient referred by: [facility] [place] Marisol Contact made with patient: Yes - Patien t identified by name and . Discussed care with patient Bernardo this is Marion Davis, RADHA and I am calling from Selwyn Garcia MD office at the [facility]. I am a RN Educational Assistant Teacher with our [facility] Chronic Disease Management program. [...] few questions once a week through your [employer] accoun t. It will automatically show up [...] 1 tablet by mouth once daily. - mnbxfvmxvzg-tbpvkyaac-ytxjhnfc (TRELE GY ELLIPTA) 100-62.5-25 mcg inhalation powder [...] Pharm-T Problem List As Of Date 01/02/2022 Not ed Resolved COLLES' FRACTURE-CLOSED [S52.539A] 09/28/2005 [...] myelo kelly [M47*03/02/2020 05/27/2020 Encounter Status:Closed by JOSE RAFAEL DAVIS on 01/02/22 CNPCheryle Observed: 12/15/2021 12:00 AM Status: COMPLETED Source: [facility] REPOSITOR Y Telephone (INTMWS) DALIA MENDES ([id number]) 1955 F Date Time Provider Department 12/15/21 [...] last ov on 12-13-21 [facility] Biopsy would have to occur within 30 days of H AND P visit. Once they review the notes will call patient to schedule. Lacy Manzanares APRN.NURSE MIDWIFE 12/20/2021 7:31 A M Signed Has this [...] 12/13/2021 Reviewed by: Kaylyn Wallace Ma - Emerson saucedo Assessed Reason for Visit: Biopsy of lung [Other] Prescriptions as of 01/06/2022 - atorvastatin (LIPITOR) 10 mg tablet Take 1 tablet by mouth once daily. - citalopram (CELEXA) 20 mg tablet Take 1 tablet by mouth once daily. - bcsxsdonzbk-cgizvkexw-pstovzxl (TRELE GY ELLIPTA) 100-62.5-25 mcg inhalation powder [...] once daily. - polyethylene glycol 3350 (MIRALAX, G LYCOLAX) 17 gram packet Take 1 Packet by [...] 12/14/2021 2:36 PM Status: COMPLETED S ource: [facility] Mamta EDDIE HNO ID: [id number] Author: Joaquim Rodarte RN Service: ? Author [...] RN and I am calling from the [facility] on behalf of your PCP, Selwyn [...] the patient after two a ttempted outreaches. Educational Assistant Teacher to retry patient in one wetarsha patterson END OUTREACH Aster March RN December 14, 2021 2:36 PM LUIZTOSHARAD Observed: 12/14/2021 12:00 Status: COMPLETED Rose rce: [facility] Patient Outreach ([facility]) DALIA MENDES ([id number]) 1955 F Date Time Provider Department 12/14/21 [...] RN and I am calling from the [facility] on behalf of your PCP, Selwyn [...] reach the patient after two attempted outreaches. Educational Assistant Teacher to retry patient in one week. END [...] 1 tablet by mouth once daily. - qbforiyfdqp-kujmnjybu-djwbxcmj (TRELE GY ELLIPTA) 100-62.5-25 mcg inhalation powder [...] 12/13/2021 9:40 AM Status: COMPLETED S ource: [facility] REPOSITOR Y Office Visit (INTMWS) DALIA MENDES ([id number]) 1955 F Date Time Provider Department 12/13/21 9:40 AM SELWYN GARCIA INTMWS During your visit today, we recorded t he following information about you: Pulse Blood pressure Weight 97/minute 122/88 48.5 kg Selwyn Garcia MD 01/05/2022 2:37 PM Signed This note was created using Sun-eeeriter. Subjective Dalia Mendes is a 66 year [...] SOB. Working with Dr. Kirill Bentley at [facility] (reading teacher). Plans for lung biopsy discussed. Noted [...] by mouth twice daily for 90 days. bcthdyfzgzu-cferegafe-nypgvzbi (TRELEG Y ELLIPTA) 100-62.5-25 mcg inhalation powder [...] Weight as of this encounter: 48.5 kg (107 lb). Last 5 Encounter BP Readings: Date: [...] Abs Lymph 1.00 - 4.00 k/uL 1.25 Collier% % 13.3 Abs Collier <0.87 k/uL 0.77 Eosin% % 3.1 Abs [...] ICD1 0: J44.9 Continue follow up with reading teacher. Okay cough med. - CODEINE 10 [...] Chronic respiratory failure with hy poxia--working with reading teacher. 14. Protein-calorie malntutrition--work ing on getting more calories and protein in; noted that shortness of felton ath with eating limits her intake. Will try to get foods of lower volume with higher amounts of calories and protein. Cost an issue for supplements. Will con telemetry nurse working with SW as needed. Selwyn Garcia MD Referring Provider: SELWYN GARCIA [ [id number]] Allergies As of Date: 12/13/2021 Noted Allergy [...] or gets tro uble swallowing COPD, severe ([facility]) [J44.9] Cough [R05.9] Cervical spondylosis without myelopath y [M47.812] Lumbosacral spondylosis without myelo kelly [M47.817] Compression fracture of T5 vertebra wi th routine healing, subsequent encounter [S22.050 D] Closed fracture of multiple ribs of ri ght side with routine healing [S22.41XD] Chronic respiratory failure with hypox ia ([facility]) [J96.11] Protein-calorie malnutrition, unspecif ied severity ([facility]) [E46] Order(s):atorvastatin (LIPITOR) 10 mg t abletTake 1 tablet by mouth once daily.Disp: 30 tabletRfl: 5 citalopram (CELEXA) 20 mg tabletTake 1 tablet by mouth once daily.Disp: 30 tabletRfl: 5 czcgnbvzdnx-mzbbkgwqk-efdnaqej (TRELE GY ELLIPTA) 100-62.5-25 mcg inhalation powderInhale 1 Puff as inst ructed once daily.Disp: 1 EachRfl: 5 gabapentin (NEURONTIN) 300 mg capsuleT kam 1 [...] 1 tablet by mouth once daily. - hpwshtnotrw-gxdonhuti-ceyfjviw (TRELE GY ELLIPTA) 100-62.5-25 mcg inhalation powder [...] Nebulizer for home use. Dx: chronic b [facility] Meds Comments as of 09/02/2018: 09/02/18 The medications are managed by this patient by: BHARGAVI Menjivar Pharm-T Problem List As Of Date 12/13/2021 Note d Resolved COLLES' FRACTURE-CLOSED [S52.539A] 09/28/2005 [...] 40 MG CAPSULE,DELAYED REL* 30 c* 5 12/13/2021 Route: ORAL Sig: Take 1 capsule [...] needed for up to 7 days. - ykklceaulkk-jmwrswmmk-phukglst (TRELE GY ELLIPTA) 100-62.5-25 mcg inhalation powder [...] once daily. - gabapentin (NEURONTIN) 300 mg capsul e (Discontinued) Take 1 capsule by mouth twice daily fo r 90 days. Level of Service: OFFICE/OUTPATIENT EST ABLISHED MOD MDM 30-39 MIN [50894] Disposition: Return in about 6 months (around 06/12/2022) for 6 months follow up. Follow-up and Disposition History for E ncounter Date Provider Department Center 12/13/2021 [id number] GARCIA INTMWS [facility] Encounter Status:Closed by ANUSHA GARCIA on 01/05/22 PROGRESS Observed: 12/13/2021 9:40 AM Status: COMPLETED S ource: [facility] HNO ID: [id number] Author: Selwyn Garcia MD Service: ? Author Type: Physician Type: Progress Notes Filed: 01/05/2022 2:37 PM Note Text: This note was created using Sun-eeeriter. Subjective Dalia Mendes is a 66 year [...] SOB. Working with Dr. Kirill Bentley at [facility] (reading teacher). Plans for lung biopsy discussed. Noted [...] in fall. Chronic obstructive pulmonary disease (COPD) ([facility]) Dysphagia, unspecified(787.20) Emphysema lung ([facility]) Hypertension INSOMNIA, intermittent 12/17/2006 stress related Unspecified chronic bronchitis ([facility]) Current Outpatient Medications Medication Sig atorvastatin (LIPITOR) [...] by mouth twice daily for 90 days. lawvhzwrlkd-eebdbsokj-ltwszyyw (TRELEG Y ELLIPTA) 100-62.5-25 mcg inhalation powder [...] Abs Lymph 1.00 - 4.00 k/uL 1.25 Collier% % 13.3 Abs Collier <0.87 k/uL 0.77 Eosin% % 3.1 Abs [...] ICD1 0: J44.9 Continue follow up with reading teacher. Okay cough med. - CODEINE 10 [...] Chronic respiratory failure with hy poxia--working with reading teacher. 14. Protein-calorie malntutrition--work ing on getting more calories and protein in; noted that shortness of felton ath with eating limits her intake. Will try to get foods of lower volume w ith higher amounts of calories and protein. Cost an issue for supplements. Will consider working with SW as needed. Selwyn Garcia MD CNPN Observed: 12/05/2021 12:00 AM Status: COMPLETED Source: [facility] REPOSITOR Y Telephone (INTMWS) DALIA MENDES ([id number]) 1955 F Date Time Provider Department 12/05/21 SELWYN GARCIA INTMWS During your visit today, we recorded the following information about you: Sugey Amezcuakallie SOFTWOOD FALLER 12/05/2021 10:34 AM Signed Donya Nurse from [facility] calling was edwige ble to do [...] meds Should be fine for biopsy Racheal Hotte SOFTWOOD FALLER 12/15/2021 2:32 PM Sig elio Nurse from [facility] was given providers mess age and [...] 1 tablet by mouth once daily. - vdjgitbrllv-sywlemzfv-jqwwbzir (TRELE GY ELLIPTA) 100-62.5-25 mcg inhalation powder [...] Observed: 12/02/2021 12:23 Status: COMPLETED Rose rce: [facility] HNO ID: [id number] Author: Joaquim Rodarte, RADHA Service: ? Author Type: Registered Nurse Type: Progress Notes Filed: 12/02/2021 12:26 PM Note Text: [facility] CDM Enrollment Provider Action/FYI: Call to Pt, unable to leave a message r elated to Insight / Chronic Disease Management program, will provide Health y at Home [facility] info once reached. Patient referred by: [facility] [place] Marisol Contact made with patient: No - Unable to leave message: (Keep encounter open and attempt 2nd outreach in two siness days from today). END OUTREACH Aster March RN December 02, 2021 12:23 PM CNPTOUTREACH Observed: 12/02/2021 12:00 Status: COMPLETED Rose rce: [facility] Patient Outreach ([facility]) DALIA MENDES ([id number]) 1955 F Date Time Provider Department 12/02/21 JOAQUIM WEBER During your visit today, we recorded t he following information about you: Aster March RN 12/02/2021 12:26 P M Signed [facility] CDM Enrollment Provider Action/FYI: Call to Pt, unable to leave a message r elated to Insight / Chronic Disease Management program, will provide Health y at Home [facility] info once reached. Patient referred [...] Cmt: Initial CDM Outreach/ Healthy at Home [facility] Prescriptions as of 12/02/2021 - atorvastatin (LIPITOR) [...] twice daily fo r 90 days. - fxusikywetg-qvlnajpmy-ggrwidyi (TRELE GY ELLIPTA) 100-62.5-25 mcg inhalation powder [...] Tiara Pharm-T Problem List As Of Date 12/02/2021 [...] Encounter Status:Closed by ALBA MARCH on 12/02/21 CNPCheryle Observed: 11/25/2021 12:00 AM Status: COMPLETED Source: [facility] REPOSITOR Y Telephone (INTMWS) DALIA MENDES ([id number]) 1955 F Date Time Provider Department 11/25/21 SELWYN GARCIA INTMWS During your visit today, we recorded t myriam following information about you: Sugey Condon LPN 11/25/2021 9:48 AM Gaston New from [facility] Door Frame Builder calling ask ing if any paper work patient needs to take to Dr Bentley-Clerical Supervisor? Did not see anything in computer. Patient has appt scheduled today with Pulmonary off ice to update her HANDP for biopsy lung mass. Hoping patient does keep that kory loly New works [employer] and gave her park manager, Delmy phone number is [phone] if needed. Aware patient had cancelled her appt mid October with Lacy Manzanares GASOLINE ENGINE ASSEMBLER. Sugey Amezcuakallie VALLEJON 11/25/2021 4:16 PM S igned Virgen calling back patient did go to ap pt with Mihaela Irene GASOLINE ENGINE ASSEMBLER Pulmonary today was 15 minutes late to [...] voicemail, she can always get it from reading teacher if PCP does n ot want to do it. Virgen is faxing copy of POA [facility] care to the office al so. She had given me grand daughter Mikala phone number is [phone]. She thinks patient is having memory issues [...] RN 11/29/2021 11:24 AM S igned Delmy [facility] called and is notified of [...] for Visit: Patient Update [1234] Patient Question [8577] Prescriptions as of 11/29/2021 - atorvastatin (LIPITOR) [...] twice daily fo r 90 days. - msyntluxvob-ybqgvwtag-fdbdvjwn (TRELE GY ELLIPTA) 100-62.5-25 mcg inhalation powder [...] Nebulizer for home use. Dx: chronic b [facility] Meds Comments as of 09/02/2018: [...] 11/23/2021 2:04 PM Status: COMPLETED S ource: [facility] HNO ID: [id number] Author: Joaquim Rodarte RN Service: ? Author [...] Observed: 11/23/2021 12:00 Status: COMPLETED [facility] ([facility]) DALIA MENDES ([id number]) 1955 F Date Time Provider Department 11/23/21 JOAQUIM WEBER During your visit today, we recorded t he following information about you: Aster March RN 12/02/2021 12:20 PM Signed [facility] CDM Enrollment Provider Action/FYI: Call to Pt, unable to leave a message r elated to Insight / Chronic Disease Management program, will provide Health y at Home [facility] info once reached. Patient referred by: [...] obstruc tive pulmonary disease, unspecified COPD type ([facility]) [J44.9] Order(s):CONSULT TO PRIMARY CARE [facility] [[id number]] Order #: [id number]: 1 Prescriptions as of 12/02/2021 - atorvastatin [...] twice daily fo r 90 days. - blytgrrafqd-xplsuzwsk-zgmlqaog (TRELE GY ELLIPTA) 100-62.5-25 mcg inhalation powder [...] are managed by this patient by: BHARGAVI Janell Delmi Menjivar Pharm-T Problem List As [...] Observed: 11/07/2021 12:00 AM Status: COMPLETED Source: [facility] REPOSITOR Y Telephone (INTMWS) VAUGHN,DALIA S ([id number]) 1955 F Date Time Provider Department 11/07/21 SELWYN GARCIA During your visit today, we recorded t he following information about you: Cristine Rashad Escalante RN 11/07/2021 2:22 PM Dot zimmermanjesús CalleKaylyn - [facility] - phoned to see if manan worthington has seen pcp recently- they were hoping they could get an H AND P, to do lung biopsy tomorrow, for lung mass. Reports patient was scheduled for this 2 weeks ago, but no showed. The 2nd time [facility] scheduled patient, patient was instructed to [...] LPN 11/08/2021 4:03 PM Sig elio Called [facility] radiology dept. They will be doing pts biopsy. They need an update HANDP. Pt missed several HANDP appts with Dr. Bentley the reading teacher with [facility]. Called pt to review the HANDP [...] twice daily fo r 90 days. - yzieednggqj-dvwfanqjk-zngpxrdo (TRELE GY ELLIPTA) 100-62.5-25 mcg inhalation powder [...] at least and continue for 1 w wrangell after rash resolves. - promethazine (PHENERGAN) 6.25 [...] by this patient by: PATIENT Janell Awad Pablitotrino Pharm-T Problem List As Of Date 11/07/2021 [...] Ankle fracture [S82.899A] 11/24/2014 Essential hypertension [I10] 12/05/201 7 Gastroesophageal reflux disease withou t esophag*10/20/2017 [...] Observed: 11/02/2021 12:00 Status: COMPLETED Rose rce: [facility] Patient Outreach (INTMMN) DALIA MENDES ([id number]) 1955 F Date Time Provider Department 11/02/21 SELWYN GARCIA INTMMN During your visit today, we recorded t myriam following information about you: Allergies As of Date: 11/02/2021 Noted Allergy Reaction WELLBUTRIN SR (BUPROPION) 05/08/2008 1 - Mental Status Change Comments: made me hallucinate Date Reviewed: 08/19/2021 Reviewed by: Racheal Lopez LPN - Fully Assessed Visit Diagnosis:Encounter for screening mammogram for breast cancer [Z12.31] Order(s):[facility] SCREENING [[id number]] Order #: [id number] FUTURE Prescriptions as of 11/07/2021 - atorvastatin [...] twice daily fo r 90 days. - foymprlhvva-mfylatacp-rbdoqvta (TRELE GY ELLIPTA) 100-62.5-25 mcg inhalation powder [...] myelop athy [M47*03/02/2020 05/27/2020 Encounter Status:Closed by Diarize, [employer] [facility] on 11/07/21 CNPN Observed: 09/01/2021 12:00 AM Status: COMPLETED Source: [facility] REPOSITOR Y Telephone (INTMWS) DALIA MENDES ([id number]) 1955 F Date Time Provider Department 09/01/21 LACY MANZANARES During your visit today, we recorded t he following information about you: Lacy Manzanares APRN.NURSE MIDWIFE 09/01/2021 4:49 PM Signed Please let he [...] Abs Lymph 1.00 - 4.00 k/uL 1.25 Collier% % 13.3 Abs Collier <0.87 k/uL 0.77 Eosin% % 3.1 Abs [...] twice daily fo r 90 days. - nkzpqacouxr-puajkcqcp-wjryqfxr (TRELE GY ELLIPTA) 100-62.5-25 mcg inhalation powder [...] at least and continue for 1 w wrangell after rash resolves. - promethazine (PHENERGAN) 6.25 [...] AUTO DIFF BLD Collected: 08/31/2021 8:25 Status: F S ource: [facility] Order Comment: Specimen Type: BLOOD SP ECIMEN Ordering Facility: [facility] Address: [address] [place] [address], [facility] [address] TYPE CODE TESTS RESULT OUT OF REFERENCE [...] MCHC RBC 32.7 30.5-36.0 g/dL Auto-mCnc LAB 13072-6(LOINC) RDW RBC-Rto 13.2 11.5-15.0 % LAB 777-3(INC) Platelet # Bld 390 150-400 k/uL Auto LAB 84018-9([facility]) PMV Bld Auto 10.1 9.0-12.7 fL LAB 770-8(INC) Neutrophils/leuk 61.1 % NFr Bld Auto LAB 751-8(INC) Neutrophils # 3.55 1.45-7.50 k/uL Bld Auto LAB 736-9([facility]) Lymphocytes/leuk 21.5 % NFr Bld Auto LAB 731-0([facility]) Lymphocytes # Bld 1.25 1.00-4. 00 k/uL Auto LAB 5905-5([facility]) Monocytes/leuk 13.3 % NFr Bld Auto LAB 742-7(INC) Monocytes # Bld 0.77 <0.87 k/uL Auto LAB 713-8(INC) Eosinophil/leuk 3.1 % NFr Bld Auto LAB 711-2([facility]) Eosinophil # Bld 0.18 <0.46 k/uL Auto LAB 706-2(INC) Basophils/leuk 0.7 % NFr Bld Auto LAB 704-7(INC) Basophils # Bld 0.04 <0.11 k/uL Auto LAB AIMMGRAN IMMATURE GRAN % 0.3 % LAB ABGRAN IMMATURE GRAN <0.03 <0.10 k/u L ABS LAB 01636-0([facility]) nRBC/100 WBC 0.0 /100 WBC Bld-Rto LAB 771-6([facility]) nRBC # Bld Auto <0.01 <0.01 k/uL LAB 37900-5(INC) Differential Auto method Bld Performed By: #### 75525-4 #### [facility] CLIA [id number] [address] [place] [address] STAT ES OF ERIC COMP METAB 2000 PNL Collected: 08/31/2021 8:25 Status: F S ource: [facility] SERPL AM [facility] Order Comment: Specimen Type: BLOOD SP ECIMEN Ordering Facility: [facility] Address: [address] [place] [id number] TYPE CODE TESTS RESULT OUT OF RANGE REFERENCE UNITS LAB 2885-2(LOINC) Prot SerPl-mCnc 6.9 6.3-8.0 g/dL LAB 1751-7(LOINC) Albumin 4.3 3.9-4.9 g/dL SerPl-mCnc LAB 74679-2(LOINC) Calcium 9.0 8.5-10.2 mg/dL SerPl-mCnc LAB 1975-2(LOINC) Bilirub 0.7 0.2-1.3 mg/dL SerPl-mCnc LAB 6768-6(LOINC) ALP SerPl-cCnc 61 34-123 U/L LAB 1920-8(LOINC) AST SerPl-cCnc 17 13-35 U/L LAB 1742-6(LOINC) ALT SerPl-cCnc 12 7-38 U/L LAB 2345-7(LOINC) Glucose 97 74-99 mg/dL SerPl-mCnc Result Comment: The [place] Diabetes Association (ADA) provides guidance for cutoff [...] Standards of Medical Care in Diabetes 2016, [place] Diabetes Association. Diabetes Care. 2016.39(Suppl 1). LAB 3094-0(LOINC) BUN SerPl-mCnc 16 7-21 mg/dL LAB 2160-0(LOINC) Creat SerPl-mCnc 0.54 Low 0.58-0 .96 mg/dL LAB 2951-2(LOINC) Sodium SerPl-sCnc 133 Low 136-14 4 mmol/L LAB 2823-3(LOINC) Potassium 4.0 3.7-5.1 mmol /L SerPl-sCnc LAB 2075-0(LOINC) Chloride 96 Low 97-105 mmol /L SerPl-sCnc LAB 2027-(LOINC) CO2 SerPl-sCnc 26 22-30 mmol/L LAB 01917-5(LOINC) Anion Gap 11 9-18 mmo l/L SerPl-sCnc [...] accurately reflect actual GFR. Performed By: #### 01419-3, 63054-2, L IP, 3016-3 #### [facility] CLIA [id number] [address] [place], [place] [address] ES OF ERIC LIPID PANEL, NONFASTING Collected: 08/31/2021 Status: F So urce: [facility] 8:25 AM [facility] Order Comment: Specimen Type: BLOOD SP ECIMEN [facility] Address: [address] [place] [address], [place] [id number] TYPE CODE TESTS RESULT OUT OF RANGE [...] Desk Reference: National Heart, Lung, and Blood [place]. National Institutes of Health. 2001: NIH Publication No. 01-3305. 2. An International Atherosclerosis Soc iety position paper: global recommendations for the management of dyslipidemia: executive summary, Atherosclerosis. 2014: 232(2):410-413. Performed By: #### 49960-0, 81933-5, L IPNF, 3016-3 #### [facility] CLIA [id number] [address] [place] [address] [place] STAT ES OF ERIC MAGNESIUM SERPL-MCNC Collected: 08/31/2021 8:25 Status: F Source: [facility] Order Comment: Specimen Type: BLOOD SP ECIMEN Ordering Facility: [facility] Address: [address] [place] [address], [facility] [address] TYPE CODE TESTS RESULT OUT OF RANGE REFERENCE UNITS LAB 78733-6(LOINC) Magnesium 1.9 1.7-2.3 mg /dL SerPl-mCnc Performed By: #### 13185-4, 95124-5, L IPNF, 3016-3 #### [facility] CLIA [id number] [address] [place] [address] UNITED STAT ES OF ERIC TSH SERPL-ACNC Collected: 08/31/2021 8:25 AM Status: F So urce: [facility] REPOSITOR Y Order Comment: Specimen Type: BLOOD SP ECIMEN Ordering Facility: [facility] Address: [address] [place] [phone] TYPE CODE TESTS RESULT OUT OF RANGE REFERENCE UNITS LAB 3016-3(LOINC) TSH SerPl-aCnc 1.210 0.270-4.2 00 mIU/L Performed By: #### 92859-8, 49363-8, LIPNF, 3016-3 #### [facility] CLIA [id number] [address] [place], [place] [address] UNITED STAT ES OF ERIC VITAMIN B12 BLOOD Collected: 08/31/2021 8:25 Status: Maday Rose rce: [facility] Order Comment: Specimen Type: BLOOD SP ECIMEN Ordering Facility: [facility] Address: [address] [place], [place] [phone] TYPE CODE TESTS RESULT OUT OF RANGE REFERENCE UNITS LAB 2132-9(LOINC) Vit B12 SerPl-mCnc >2000 High 232-1 ,245 pg/mL Performed By: #### B12 #### [facility] CLIA [id number] [address] [place], [place] [address] UNITED STAT ES OF ERIC CNPN Observed: 08/23/2021 12:00 AM Status: COMPLETED Source: [facility] REPOSITOR Y Telephone (ISAI) DALIA MENDES ([id number]) 1955 F Date Time Provider Department 08/23/21 JORGE FLEMING During your visit today, we recorded the following information about you: GABI Hernandez 08/23/2021 9:59 AM S igned Sw called and left message for patient in regards to SW consult request to help with financial constraints and help swati und the house. Sw requested patient call SW back to danny strickland needs. Jorge Fleming, DIRECTOR CAMP 08/24/2021 11:44 AM S igned Sw left [...] twice daily f or 90 days. - zcerixfdosl-pfroxdxls-ybpgfsxy (TRELE GY ELLIPTA) 100-62.5-25 mcg inhalation powder [...] athy [M47*03/02/2020 05/27/2020 Encounter Status:Closed by Tarsha FLEMING on 08/25/21 PROGRESS Observed: 08/19/2021 9:54 AM Status: COMPLETED S ource: [facility] GER MORGAN HNO ID: [id number] Author: Lacy Manzanares APRN.NURSE MIDWIFE Service: ? Author Type: Nurse Specialist Type: [...] from previous visit: She was admitted to [facility] [place] [facility] December 02 through December 06, 2020. Admission [...] 3 to 6 L [facility] cannula [facility]. Treated with IV Solu-Medrol during admission, transitio n to oral prednisone taper at discharge. Respiratory panel and Covid testing were negative. Sputum culture shows presumptive C albicans mi xed [facility]. Treated with IV azithromycin and IV Zosyn during admiss ion. Transition to Augmentin at discharge. Follow-up in 1 week with PC P recommended. Follow-up with pulmonary medicine in 2 [...] inhaler refill from Dr. Bentley Follow-up with reading teacher: scheduled for next week, Dr. Bentley's office Complete medications: yes completed. Notes eating OK. Does not take any supp lemental, nothing recommended at discharge notes continues to smoke, EtO H. Notes chronic back pain, stable, no ala rm symptoms, ibuprofen seems to help somewhat. Not interested in physic al therapy. Has not seen spine physician. X-ray completed in February. Requests [place]. Presents today for routine follow up vi sit. She reports no hospitalization or ER visits since last year. She has not seen Dr. Bentley since her ER visit in 2020, needs to [facility] follow-up visit. COPD: Noted to be severe Cough: Present, clear sputum Wheeze: Present Shortness of breath: Present Clerical Supervisor visit: Dr Bentley Oxygen: 2 to 3 L by nasal cannula 24/ Inhaler use: Notes using consistently Smoking: Continues [...] by mouth twice daily for 90 days. ojfjjgecyep-jlnaivfii-mxyishfe (TRELEGY ELLIPTA) 100-62.5-25 mcg inhalation powder Inhale [...] fall. - Chronic obstructive pulmonary disease (COPD) ([facility]) - Dysphagia, unspecified(787.20) - Emphysema lung ([facility]) - Hypertension - INSOMNIA, intermittent 12/17/2006 stress related - Unspecified chronic bronchitis ([facility]) 12/17/2006 Social History Tobacco Use - Smoking [...] use: No ASSESSMENT/PLAN: ASSESSMENT/PLAN: 1. COPD, severe ([facility]) - ICD9: 496, ICD1 0: J44.9 (primary diagnosis) 5. Chronic bronchitis, unspecified court security officer ramon bronchitis type ([facility]) - ICD9: 491.9, ICD10: J42 Currently stable, no recent exacerbatio n. Continue with current treatment unchanged for now. Currently using inha lers routinely. Reports oxygen 2 to 3 L 16/10. She is overdue for follow -up visit with Dr. Bentley her reading teacher. 6. Tobacco use disorder - ICD9: [...] RELE ASE 9. PAD (peripheral artery disease) ([facility] ) - ICD9: 443.9, ICD10: I73.9 - ATORVASTATIN 10 MG TABLET 10. Gastroesophageal reflux disease wit hout esophagitis - ICD9: 530.81, ICD10: K21.9 - CBC + DIFF - COMP METABOLIC PANEL - OMEPRAZOLE 40 MG CAPSULE,DELAYED RELE ASE 11. Compression fracture of T5 vertebra , initial encounter ([facility]) - ICD9: 805.2, ICD10: S22.050A 12. Closed fracture of multiple ribs of right side with routine healing - ICD9: V54.19, ICD10: S22.41XD She notes back pain is currently manage d with gabapentin. PDMP website checked and validated. All prescriptions have been APPROPRIATELY filled. No suspicious act ivity was identified. 08/19/2021 by Lacy Manzanares APRN.NURSE MIDWIFE - GABAPENTIN 300 MG CAPSULE 13. Need [...] this. 6-month follow-up with PCP Lacy Manzanares APRN.NURSE MIDWIFE Medical Decision Making: Problems: Moderate: 2+ stable chronic illnesses Data: Unique test(s) ordered: 3+ Risk: Moderate: Drug management Medical Decision Making Level: 4 - Mode rate CNOV Observed: 08/19/2021 9:40 AM Status: COMPLETED S ource: [facility] REPOSITOR Y Office Visit (INTMWS) DALIA MENDES ([id number]) 1955 F Date Time Provider Department 08/19/21 9:40 AM LACY MANZANARESWS During your visit today, we recorded t he following information about you: Pulse Respiration Blood pressure Weigh t 93/minute 16/minute 132/88 51.7 kg Height 1.613 m Lacy Manzanares, RAHUL.NURSE MIDWIFE 08/19/2021 10:45 AM Signed SUBJECTIVE: LUNG CANCER [...] from previous visit: She was admitted to [facility] December 02 through December 06, 2020. Admission [...] calorie malnutrition as evidenced by reduced B WY and cachectic appearance. Dietitian consulted during admission. [...] 24/7 Inhaler: Using currently, in need of katie whitehead inhaler refill from Dr. Bentley Follow-up with reading teacher: scheduled for next week, Dr. Bentley's office Complete medications: yes completed. Notes eating OK. Does not take any supp lemental, nothing recommended at discharge notes continues to smoke, EtO H. Notes chronic back pain, stable, no ala rm symptoms, ibuprofen seems to help somewhat. Not interested in physical th erapy. Has not seen spine physician. X-ray completed in February. Requests [place]. Presents today for routine follow up vi sit. She reports no hospitalization or ER visits since last year. She has not seen Dr. Bentley since her ER visit in 2020, needs to schedule follow-up visi t. COPD: Noted to be severe Cough: Present, clear sputum Wheeze: Present Shortness of breath: Present Clerical Supervisor visit: Dr Bentley Oxygen: 2 to 3 [...] by mouth twice daily for 90 days. nytiqfysbgm-gsungtawc-sckncelq (TRELEGY ELLIPTA) 100-62.5-25 mcg inhalation powder Inhale [...] fall. - Chronic obstructive pulmonary disease (COPD) ([facility]) - Dysphagia, unspecified(787.20) - Emphysema lung ([facility]) - Hypertension - INSOMNIA, intermittent 12/17/2006 stress related - Unspecified chronic bronchitis ([facility]) 12/17/2006 Social History Tobacco Use - Smoking status: Current Every Day Sm oker Packs/day: 1.00 Years: 25.00 Pack years: 25.00 [...] use: No ASSESSMENT/PLAN: ASSESSMENT/PLAN: 1. COPD, severe ([facility]) - ICD9: 496, ICD 10: J44.9 (primary diagnosis) 5. Chronic bronchitis, unspecified court security officer ramon bronchitis type ([facility]) - ICD9: 491.9, ICD10: J42 Currently stable, no recent exacerbatio n. Continue with current treatment unchanged for now. Currently using inha lers routinely. Reports oxygen 2 to 3 L 16/10. She is overdue for follow-up vi sit with Dr. Bentley her reading teacher. 6. Tobacco use disorder - ICD9: [...] RELE ASE 9. PAD (peripheral artery disease) ([facility] ) - ICD9: 443.9, ICD10: I73.9 - ATORVASTATIN 10 MG TABLET 10. Gastroesophageal reflux disease wit hout esophagitis - ICD9: 530.81, ICD10: K21.9 - CBC + DIFF - COMP METABOLIC PANEL - OMEPRAZOLE 40 MG CAPSULE,DELAYED RELE ASE 11. Compression fracture of T5 vertebra , initial encounter ([facility]) - ICD9: 805.2, ICD10: S22.050A 12. Closed fracture of multiple ribs of right side with routine healing - ICD9: V54.19, ICD10: S22.41XD She notes back pain is currently manage d with gabapentin. PDMP website checked and validated. All prescriptions have been APPROPRIATELY filled. No suspicious activity was iden tified. 08/19/2021 by Lacy Manzanares APRN.NURSE MIDWIFE - GABAPENTIN 300 MG CAPSULE 13. Need [...] t esophagitis [K21.9] PAD (peripheral artery disease) ([facility]) [I73.9] Gastroesophageal reflux disease withou t esophagitis [K21.9] Comment:needs to take or gets trouble swallowing Compression fracture of T5 vertebra, i nitial encounter ([facility]) [S22.050A] Closed fracture of multiple ribs of ri ght side with routine healing [S22.41XD] Need for financial support [Z59.9] Essential hypertension [I10] Reactive depression [F32.9] Generalized anxiety disorder [F41.1] Order(s):CBC + DIFF [SQCBCDIF] Order #: [id number] FUTURE COMP METABOLIC PANEL [SQCMP] Order #: [id number] FUTURE TSH BLD [SQTSH] Order #: [id number] FU TURE MAGNESIUM BLD [SQMG1] Order #: [id number] FUTURE VITAMIN B12 BLOOD [SQB12] Order #: [id number] FUTURE atorvastatin (LIPITOR) 10 mg tabletTak e 1 tablet by mouth once daily.Disp: 30 tabletRfl: 5 amLODIPine (NORVASC) 2.5 mg tabletTake 1 tablet by mouth once [...] capsuleRfl: 5 PRIMARY CARE SOCIAL WORK CONSULT [4251 000] Order #: [id number]: 1 FUTURE Prescriptions as of 08/19/2021 - [...] twice daily fo r 90 days. - wmxyedhyxkr-mongxeqir-vgsfabjy (TRELE GY ELLIPTA) 100-62.5-25 mcg inhalation powder [...] at least and continue for 1 w wrangell after rash resolves. - promethazine (PHENERGAN) 6.25 [...] 50 MG TABLET 60 t* 5 08/20/19 Route: ORAL Sig: Take 1 tablet by mouth twice meaghan y. OMEPRAZOLE 40 MG CAPSULE,DELAYED REL* 30 c* 08/19/2021 Route: ORAL Sig: Take 1 capsule by mouth once meaghan y. IBUPROFEN 800 MG TABLET 60 t* 2 08/19 Route: ORAL Sig: Take 1 tablet by mouth every 8 ho urs as needed for pain (back). Take with food GABAPENTIN 300 MG CAPSULE 60 c* 5 07/2511/17/2021 Route: ORAL Sig: Take 1 capsule by [...] E ncounter Date Provider Department Center 08/19/2021 [id number] MANZANARES [facility] SONDRA Encounter Status:Closed by INDIO MANZANARES I on 08/19/21 CNCMamta Observed: 08/09/2021 12:00 AM Status: COMPLETED Source: [facility] REPOSITOR Y Letter Text CNPN Observed: 07/05/2021 12:00 AM Status: COMPLETED Source: [facility] REPOSITOR Y Telephone (FAMPWS) DALIA MENDES ([id number]) 1955 F Date Time Provider Department 07/05/21 SELWYN GARCIAPWS During your visit today, we recorded t [...] 1 capsule by mouth once daily. - zchfzfhjhyh-jgyvyqliv-hvcprsrw (TRELE GY ELLIPTA) 100-62.5-25 mcg Inhale 1 [...] Observed: 01/19/2021 12:00 AM Status: COMPLETED Source: [facility] REPOSITOR Y Telephone (INTMWS) VAUGHNDALIA Feldman ([id number]) 1955 F Date Time Provider Department 01/19/21 SELWYN GARCIA INTMWS During your visit today, we recorded t he following information about you: Cristine Escalante RN 01/19/2021 12:32 PM S apolinar Randall- [facility]- reports, patient infor med her she is having left rib cage pain 12/03 for a couple days. Reports patient completed prednisone on 01-15, and is taking ibuprofen 800 mg prn for the ri b cage pain. Reports patient fell today and hit that area. No bruising. LCTA. P atient does have a cough, which causes the rib pain. Reports patient is a heavy smoker. Tonia advised patient to ER if the pain gets worse. Lacy Manzanares, RAHUL.NURSE MIDWIFE 01/21/2021 3:05 PM Signed Noted, agree Allergies As of Date: 01/19/2021 Noted Allergy Reaction WELLBUTRIN SR (BUPROPION) 05/08/2008 1 - Mental Status Change Comments: made me hallucinate Date Reviewed: 12/13/2020 Reviewed by: Racheal Lopez LPN - Fully Assessed Reason for Visit: Left rib pain [Other] Prescriptions as of 01/21/2021 - jkhvcnzwshe-xuasglzfa-ukgrresz (TRELE GY ELLIPTA) 100-62.5-25 mcg Inhale 1 [...] [facility] Problem List As Of Date 01/19/2021 [...] SEVERITY SOURCE 05/08/2008 DRUG BUPROPION Mental Ch[facility] INGREDI/[id number] Finn zarate (SNOMED CT) ENCOUNTERS ENCOUNTERS ADMIT/DISCHARGE ACCOUNT NUMBER ADMITTING ENCOUNTER LOCATION SOUR E CLASS 12/13/2021/ [id number] Ambulatory [address] ing:WOIA 08/31/2021/ [id number] [address] ing:WOLB 08/19/2021/ [id number] [address] ing:KAVITA PAYERS PAYERS ENCOUNTER GUARANTOR PAYER SUBSCRIBER SOURCE 12/13/2021 Primary Insurance:[place] DALIA Feldman [facility] MEDICAIDPolicy Number: ERIKA: [facility] [id number] Date:2084-86-92Kkgi URMILA VANESSA, Name:[place] [id number] 08/31/2021 Primary [facility] Insurance:CELSO JAMES: [facility] [id number] Number: URMILA MENDEZ [id number] [place] [address] Date:0096-87-88Mtpg Name:N 08/31/2021 Secondary DALIA Feldman [facility] Insurance:ROMIE JAMES: [place] MEDICAIDPolicy Number: [id number] URMILA RDWOOSTAKASH, Date:5345-29-33[place]h [place] [address] Name:X 08/19/2021 Primary DALIA Feldman [facility] Insurance:CELSO MENDESDre: [facility] [id number] Number: URMILA MENDEZ, [id number] [address] Date:[id number] Name:N 08/19/2021 Secondary DALIA Feldman [facility] c Insurance:ROMIE JAMES: [place] MEDICAIDPolicy Number: [id number] URMILA RDWOOSTAKASH, Date:3711-46-81Ybpq [place] [address] Name:Albert
[2022-01-18 05:33] LABS: Absolute Lymphocyte Count 0.61 X10^3/uL (0.83-4.51); Absolute Neutrophil Count 9.7 X10^3/uL (2.0-7.7); Basophil# 0.01 X10^3/uL; Basophil% 0.1 % (0-1); Hematocrit 40.3 % (37-47); Hemoglobin 13.6 g/dL (12.0-15.0); Lymphocyte # 0.61 X10^3/ul (0.83-4.51); Lymphocyte % 5.4 % (19-41); Mean Corp Hgb Conc 33.7 g/dL (32-36); Mean Corpuscular Hgb 30.2 pg (27.0-32.0); Mean Corpuscular Volume 89.6 fL (81-99); Mean Platelet Vol. 10.1 fl (6.2-12.0); Monocyte# 0.96 X10^3/uL; Monocyte% 8.5 % (0-10); NRBC Flagged by Analyzer 0 % (0-5); Neutrophil # 9.65 X10^3/uL (2.7-7.7); Neutrophil % 85.4 % (47-70); Platelet Count 329 K/mm3 (150-450); RBC Distribution Width CV 13.4 % (11.6-14.6); RBC Distribution Width SD 44.5 fl (35.1-43.9); White Blood Count 11.3 K/mm3 (4.4-11.0)
[2022-01-18 05:58] LABS: Anion Gap 8 (5-15); BUN 15 mg/dL (7-18); BUN/Creat Ratio 26.1 RATIO (10-20); Calcium,Total 8.4 mg/dL (8.5-10.1); Chloride 94 mmol/L (98-107); Creatinine, Serum 0.58 mg/dL (0.55-1.02); EST Glomerular Filtration Rate 111 mL/min (>60); Est Glom Filt Rate - Afr Amer 134 mL/min (>60); Estimated Creatinine Clearance 42.67 ml/min; Glucose 87 mg/dL (74-106); Potassium 3.8 mmol/L (3.5-5.1); Sodium Level 129 mmol/L (136-145)
[2022-01-18] MEDS: Budesonide Respules 0.5 MG/2 ML AMPUL.NEB. INHALATION (07:27)
[2022-01-18] MEDS: Ipratropium/Albuterol Sulfate 3 ML AMPUL.NEB INHALATION ×2 (07:27→13:39)
[2022-01-18] MEDS: Enoxaparin 40 MG/0.4 ML Syringe SC (09:43)
[2022-01-18] MEDS: Losartan Potassium 50 MG Tablet PO (09:43)
[2022-01-18] MEDS: Cholecalciferol (VIT D3) 25 MCG TABLET (1,000 UNITS) PO (09:43)
--- NOTE | 2022-01-18 11:00 | CASEMGMT ---
Addendum entered by Alise Mao 01/18/22 15:47: Per pt, someone is with her 16/10 but then SW from Hospice stated that grandson is with her but is autistic/mentally delayed and not really able to care for pt. CM to follow. Yovana GARCIA CM Original Note: RADHA BOSWELL assessment: Face to Face with patient for initial transition planning/care coordination assessment. RN ELBERT introduced self and role at [facility], pt voices understanding and consents to assessment. Pt is lying in bed in no distress on 2L nc. Pt is A/Ox4 and answers questions appropriately but falls asleep easily when not stimulated.? Care providers, pharmacy,?and demographics verified. ? Presentation: Per daughter, hospice pt more lethargic, confused, SOB and incontinent Admitting dx: Toxic encephalopathy PCP: Jose Specialists: rhea Simpson Preferred Pharmacy: [facility] Insurance: [facility]R/[facility] Prescription Benefit:?Yes Living Will/HPOA: Pt has LW/HPOA on file at [facility] and her sig other, Dylan Winter, is HPOA. LNOK: Dylan Winter, Sig other; Mikala Carrera, granddaughter Living Arrangements: Pt lives with sig other and grandson in home and states no concerns at home. Pt states normally independent with ADL's. Transportation: Pt states family drives and states no transportation concerns. DME/HHC: Pt has the following DME: WW, W/C, grab bars, and shower chair. Pt states no need for any further DME. Pt has had [facility] HHC in the past but has not been to SNF. Pt was active with [facility] and message left with Nella at Hospice to call this RADHA BOSWELL back regarding pt. Pt is unsure whether she wants to go back on Hospice on discharge and CM to follow. Pt states no concerns with going home at time of discharge. Pt is retired. Pt states smokes 1/2 pack cigarettes daily and drinks 3-4 beers daily. Pt voices no further concerns/needs. CM to follow for any further discharge planning/needs. Advised pt to ask for CM if any further questions/concerns/needs arise, voices understanding. Pt Goal: Home ? Plan: Home Yovana GARCIA CM
[2022-01-18] MEDS: Thiamine Hydrochloride 100 MG Tablet PO ×2 (11:19→21:20)
[2022-01-18] MEDS: Acetaminophen 500 MG Tablet 1000 MG PO ×2 (11:19→21:19)
[2022-01-18] MEDS: predniSONE 10 MG Tablet PO (11:19)
--- NOTE | 2022-01-18 16:19 | CASEMGMT ---
LOKI received a phone call from LOKI Mueller at [facility]. Ami let LOKI know she spoke with patient's significant other Benedicto and he does not want patient on Hospice, but Palliative instead. Ami wanted to let [facility] know that if patient goes home not on Hospice she will need O2. Patient's current O2 is through Hospice. LOKI asked Ami about patient's care at home. Patient is primarily alone. There is an adult grandson that is with patient. However, he is developmentally disabled. Benedicto is a road oiling truck driver so he is often not home. Patient's daughter would stop in and help when she was able, but she was arrested at the hospital last night and taken to assisted. LOKI thanked her for the information. LOKI will follow and assist with d/c planning. Porsche SEE
[2022-01-18] MEDS: Ensure Plus High Protein 120 ML LIQUID PO ×2 (17:32→21:19)
--- NOTE | 2022-01-18 18:41 | PCM.HOSP.N ---
Hospitalist Note Patient was seen and examined today, I had a discussion with the patient and her regarding her medication usage at home, patient does not understand why she is seeing hospice and neither does her , her will talk with hospice today concerning palliative care at home rather than hospice care. In the meantime, I have elected to keep the patient off narcotics at this time and reevaluate the patient tomorrow.
[2022-01-18] MEDS: Pantoprazole Sodium 40 MG Tablet PO (21:20)
[2022-01-18] MEDS: Atorvastatin Calcium 10 MG Tablet PO (21:20)
[2022-01-18] MEDS: Ceftriaxone 1 GM/50 ML BAG IV (21:20)
[2022-01-18] MEDS: 0.9% Saline Lock 10 ML Syringe IV (21:45)
[2022-01-19 03:00] VITALS: BP 124/82; PULSE 77; RESP 18; TEMP 36.4; O2SAT 96
[2022-01-19 03:22] VITALS: BP 124/82; PULSE 77; RESP 18; TEMP 36.4; O2SAT 96
[2022-01-19] MEDS: Ibuprofen 400 MG Tablet 800 MG PO (03:27)
[2022-01-19] MEDS: Thiamine Hydrochloride 100 MG Tablet PO (05:28)
[2022-01-19 06:51] VITALS: PULSE 85; RESP 20; O2SAT 94
[2022-01-19] MEDS: Ipratropium/Albuterol Sulfate 3 ML AMPUL.NEB INHALATION (06:51)
[2022-01-19] MEDS: Budesonide Respules 0.5 MG/2 ML AMPUL.NEB. INHALATION (06:51)
[2022-01-19] MEDS: predniSONE 10 MG Tablet PO (07:59)
[2022-01-19 09:25] VITALS: BP 114/69; PULSE 99; RESP 18; TEMP 36.5; O2SAT 94
--- NOTE | 2022-01-19 09:31 | DCINST_ITS ---
Discharge Instructions Diet Discharge Diet: No restrictions Activity Discharge Activity: Return to Normal Activity Weight Bearing Status: Full weight bearing Follow Up Care Test Results: Test results from this visit will be discussed in further detail at your follow- up appointment, if applicable. Discharge Plan Admission Admit Date/Time: 01/18/22 00:40 Primary Reason for Your Visit: confusion, urinary tract infection Attending Provider: Elias Harden Primary Care Provider: May Garcia Consulting Providers: Matt Traylor Instructions Patient Instructions: COPD Caregivers, Urinary Tract Infections in Women Discharge Orders/Prescriptions Prescriptions: New cephalexin 500 mg capsule 500 mg PO TID Qty: 16 0RF Rx Instructions: start the evening of 01/19/22 Continued amlodipine [Norvasc] 2.5 mg tablet 2.5 mg PO DAILY albuterol sulfate 90 mcg/actuation HFA aerosol inhaler 2 puff inhalation Q4H PRN PRN (Reason: Shortness Of Breath) Qty: 1 6RF ipratropium-albuterol 0.5 mg-3 mg(2.5 mg base)/3 mL solution for nebulization 3 ml inhalation Q4H PRN PRN (Reason: SOB &/OR WHEEZING) Qty: 180 6RF omeprazole 40 MG capsule,delayed release(DR/EC) 40 mg PO DAILY citalopram 20 MG tablet 20 mg PO DAILY atorvastatin 10 mg tablet 10 mg PO QHS Trelegy Ellipta 200-62.5-25 mcg blister with device 1 inh inhalation DAILY thiamine HCl (vitamin B1) 100 mg Tablet 100 mg PO TID acetaminophen 325 mg tablet 650 mg PO Q6H PRN PRN (Reason: pain/fever) Label Comments: TAKE 1 TABLET EVERY 6 HOURS NEEDED Rx Instructions: takes morning and night polyethylene glycol 3350 17 gram Powder In Packet 17 g PO DAILY PRN (Reason: Constipation) cholecalciferol (vitamin D3) [Vitamin D3] 25 mcg (1,000 unit) Tablet 25 mcg PO DAILY Discontinued gabapentin 300 mg capsule 600 mg PO QHS prednisone 10 mg tablet 10 mg PO QDAY Qty: 30 0RF Rx Instructions: take 4 tabs for three days, then 3 tabs for three days, then 2 tabs for three days, then 1 tab for 3 days promethazine 6.25 mg/5 mL Syrup 6.25 mg PO 4X/DAY PRN PRN (Reason: Nausea) lorazepam 0.5 mg tablet 0.5 mg PO Q4H PRN PRN (Reason: Anxiety) Rx Instructions: takes morning and night senna 8.6 mg Capsule 8.6 mg PO BID PRN (Reason: Constipation) oxycodone 10 mg Tablet 10 mg PO BID Rx Instructions: takes morning and night Referrals / Follow Up: May Garcia MD [Primary Care Provider] - Within 2 Weeks Disposition Disposition (needs filled in before D/C Order can be placed): Home, Self Care
[2022-01-19] MEDS: Cholecalciferol (VIT D3) 25 MCG TABLET (1,000 UNITS) PO (10:08)
[2022-01-19 10:11] VITALS: O2SAT 85; O2SAT 88; O2SAT 90; O2SAT 95
--- NOTE | 2022-01-19 10:58 | CM.UR ---
Addendum entered by Alise Mao 01/19/22 12:14: Pt/family would like pt to just go home with palliative and [facility] notified. Palliative is requesting a new order and this was sent via email. Yovana GARCIA CM Addendum entered by Alise Mao 01/19/22 11:21: Call back from Nallely at [facility] and she states they can accept pt with SOC 01/20/22. Pt updated, voices understanding. Pt voices no further questions/concerns/needs. Yovana GARCIA CM Original Note: Per Jacquelin RN, pt qualifies for 3L w/ exertion home oxygen. This RADHA CM to room to discuss with pt and granddaughter, Mikala. Pt would like [facility] for oxygen as she has had them in past. Pt/granddaughter provided list of [facility] providers including quality and resource use data and consistent with the pt's preferred geographic region, medical needs, and insurance network. After perusing list, pt/granddaughter state would like [facility] for SN, PT/OT. Call to Nallely with referral. Script obtained for home oxygen and sent via [employer]. Pt/granddaughter aware to use 3L with any exertion/movement to keep pulse ox 89% or greater and to not smoke anywhere near oxygen, voice understanding. Awaiting call back from [facility]. Yovana GARCIA CM
--- NOTE | 2022-01-19 17:40 | DS.PCM_ITS ---
Providers Date of Admission: 01/18/22 Date of Discharge: 01/19/22 Primary Care Physician: Dr. May Garcia MD Reason For Visit: TOXIC ENCEPHALOPATHY Diagnosis Discharge Diagnosis (1) Toxic encephalopathy: Status: Acute Code(s): G92.9 - Unspecified toxic encephalopathy (2) Debility: Status: Acute Code(s): R53.81 - Other malaise (3) Protein-calorie malnutrition, moderate: Status: Acute Code(s): E44.0 - Moderate protein-calorie malnutrition (4) Hyponatremia: Status: Acute Code(s): E87.1 - Hypo-osmolality and hyponatremia (5) Alcoholism: Status: Acute Code(s): F10.20 - Alcohol dependence, uncomplicated Plan 1. Toxic encephalopathy secondary to medication usage #2 chronic obstructive pulmonary disease #3 Severe chronic protein and caloric malnutrition due to inadequate energy intake with increased energy needs as evidenced by p.o. intake meeting less than 75% of estimated energy needs over 3 months, severe muscle wasting and fat loss per physical exam and orbital, temporal, clavicular, and acromion areas. Oral nutritional supplements were given to the patient #4 acute cystitis secondary to gram-negative kael #5 chronic hypoxic respiratory failure Medications at Discharge Home Medications citalopram 20 mg tablet 20 mg PO DAILY depression 10/13/15 omeprazole 40 mg capsule,delayed release 40 mg PO DAILY acid reflux 10/13/15 amlodipine 2.5 mg tablet (Norvasc) 2.5 mg PO DAILY blood pressure 11/12/18 atorvastatin 10 mg tablet 10 mg PO QHS CHOLESTEROL 10/25/20 fluticasone fur. 200 mcg-umeclid 62.5 mcg-vilant 25 mcg inhalat.powder (Trelegy Ellipta) 1 inh inhalation DAILY copd 09/28/21 thiamine HCl (vitamin B1) 100 mg tablet 100 mg PO TID supplement 09/28/21 albuterol sulfate 90 mcg/actuation aerosol inhaler 2 puff inhalation Q4H PRN PRN Shortness Of Breath ##1 10/06/21 ipratropium 0.5 mg-albuterol 3 mg (2.5 mg base)/3 mL nebulization soln 3 ml inhalation Q4H PRN PRN SOB &/OR WHEEZING #180 mL 11/25/21 acetaminophen 325 mg tablet 650 mg PO Q6H PRN PRN pain/fever 01/18/22 cholecalciferol (vitamin D3) 25 mcg (1,000 unit) tablet (Vitamin D3) 25 mcg PO DAILY supplement 01/18/22 polyethylene glycol 3350 17 gram oral powder packet 17 g PO DAILY PRN Constipation 01/18/22 cephalexin 500 mg capsule 500 mg PO TID #16 caps 01/19/22 Hospital Course Operations None Procedures None Summary of Care Provided Minutes Spent on Discharge: 31 Hospital Course: This 66-year-old white female was seen in the emergency room with extreme weakness and confusion. Patient is a hospice care patient at home due to a diagnosis of COPD, labs obtained in the emergency room showed a normal CBC, patient's chemistry profile was remarkable for sodium of 129 and a BUN of 22, patient's urinalysis showed 50-100 WBCs and +4 bacteria. Patient's chest x-ray showed chronic lung changes but no acute pulmonary process. Patient was felt to have a toxic encephalopathy and an acute cystitis, the toxic encephalopathy was felt to be secondary to medication usage at home. Patient revoked hospice and she was admitted to PCU and her medications were held. Patient's mental status improved, she was given IV antibiotics for acute cystitis, urine culture grew out a gram-negative kael that was not identified at the time of her discharge from the hospital. On 01/19/2022, patient was seen and examined: On examination she appeared older than her stated age, she appeared cachectic,, she does not appear to be in any distress. Vital signs as documented. Skin warm and dry and without overt rashes. Neck without JVD, thyroid appears normal, trachea is midline, neck is supple. Lungs clear, normal air movement was noted. Heart exam notable for regular rhythm, normal sounds and absence of murmurs, rubs or gallops. Abdomen unr emarkable and without evidence of organomegaly, masses, or abdominal aortic enlargement, bowel sounds are present in all 4 quadrants, no abdominal tenderness was noted. Extremities nonedematous, no cyanosis was noted, no clubbing was noted. Neuro: Cranial nerves II through XII are grossly intact, no focal motor deficits were noted, sensation to light touch and pinprick is intact, motor exam 5/5 throughout. Psych: Patient is alert and oriented x3, she does not appear anxious or depressed, she does not appear agitated. Patient was felt to be stable for discharge on 01/19/2022, a new oxygen pr escription was given to the patient due to the fact that she was going off hospice care, she required 3 L only on ambulation. I had discussions with the patient's and it was agreed that the patient would go off hospice but the palliative care would be instituted for the patient. Weight / BMI Weight Weight: 50.2 kg Body Mass Index (BMI) 17.9 ABG / Lab / Microbiology Data Result Diagrams: 01/18/22 04:11 01/18/22 04:11 Microbiology: Microbiology 01/17/22 23:00 Urine, Clean Catch Urine Culture - Preliminary Gram negative kael 01/17/22 20:48 Nasal Secretion SARS-CoV-2 & FLU Antigen (Rapid) - Final D/C Instructions Discharge Diet: No restrictions Weight Bearing Status: Full weight bearing Meaningful Use Info Meaningful Use Diagnoses (Choose all that apply): None applicable Discharge Plan Admission Admit Date/Time: 01/18/22 00:40 Primary Reason for Your Visit: confusion, urinary tract infection Attending Provider: Elias Harden Primary Care Provider: May Garcia Consulting Providers: Matt Traylor Instructions Patient Instructions: COPD Caregivers, Urinary Tract Infections in Women Discharge Orders/Prescriptions Prescriptions: New cephalexin 500 mg capsule 500 mg PO TID Qty: 16 0RF Rx Instructions: start the evening of 01/19/22 Continued amlodipine [Norvasc] 2.5 mg tablet 2.5 mg PO DAILY albuterol sulfate 90 mcg/actuation HFA aerosol inhaler 2 puff inhalation Q4H PRN PRN (Reason: Shortness Of Breath) Qty: 1 6RF ipratropium-albuterol 0.5 mg-3 mg(2.5 mg base)/3 mL solution for nebulization 3 ml inhalation Q4H PRN PRN (Reason: SOB &/OR WHEEZING) Qty: 180 6RF omeprazole 40 MG capsule,delayed release(DR/EC) 40 mg PO DAILY citalopram 20 MG tablet 20 mg PO DAILY atorvastatin 10 mg tablet 10 mg PO QHS Trelegy Ellipta 200-62.5-25 mcg blister with device 1 inh inhalation DAILY thiamine HCl (vitamin B1) 100 mg Tablet 100 mg PO TID acetaminophen 325 mg tablet 650 mg PO Q6H PRN PRN (Reason: pain/fever) Label Comments: TAKE 1 TABLET EVERY 6 HOURS NEEDED Rx Instructions: takes morning and night polyethylene glycol 3350 17 gram Powder In Packet 17 g PO DAILY PRN (Reason: Constipation) cholecalciferol (vitamin D3) [Vitamin D3] 25 mcg (1,000 unit) Tablet 25 mcg PO DAILY Discontinued gabapentin 300 mg capsule 600 mg PO QHS prednisone 10 mg tablet 10 mg PO QDAY Qty: 30 0RF Rx Instructions: take 4 tabs for three days, then 3 tabs for three days, then 2 tabs for three days, then 1 tab for 3 days promethazine 6.25 mg/5 mL Syrup 6.25 mg PO 4X/DAY PRN PRN (Reason: Nausea) lorazepam 0.5 mg tablet 0.5 mg PO Q4H PRN PRN (Reason: Anxiety) Rx Instructions: takes morning and night senna 8.6 mg Capsule 8.6 mg PO BID PRN (Reason: Constipation) oxycodone 10 mg Tablet 10 mg PO BID Rx Instructions: takes morning and night Referrals / Follow Up: May Garcia MD [Primary Care Provider] - Within 2 Weeks Disposition Disposition (needs filled in before D/C Order can be placed): Home Health Service Charges/Coding Visit Charges Inpatient E&M: 78781 Disch Hosp
== END 2022-01-19 12:12 | disposition home health service (06) | DRG 91 ==
LOC: ED 23:48 → PCU 01-18 03:06
PROVIDERS: Emergency Provider Emergency Medicine; PCP Internal Medicine; Visit Provider Internal Medicine
DX: G92.9 Unspecified toxic encephalopathy (principal); E43 Unspecified severe protein-calorie malnutrition; J43.9 Emphysema, unspecified; F10.20 Alcohol dependence, uncomplicated; J96.11 Chronic respiratory failure with hypoxia; E87.1 Hypo-osmolality and hyponatremia; Z68.1 Body mass index [BMI] 19.9 or less, adult; N30.00 Acute cystitis without hematuria; I10 Essential (primary) hypertension; F17.210 Nicotine dependence, cigarettes, uncomplicated; T40.605A Adverse effect of unspecified narcotics, initial encounter; F32.A Depression, unspecified; Z20.822 Contact with and (suspected) exposure to COVID-19; R53.81 Other malaise; Z79.51 Long term (current) use of inhaled steroids; Z79.899 Other long term (current) drug therapy
CPT/HCPCS: 36415; 71045; 80048; 81001; 85025; 87077; 87086; 87088; 87186; 87428; 93005; 94640; 96365; 96366; 96372; 96375; 97162; 97166; 97802; 99221; 99285; 99406; J7030; J7050; A4216; G0378; J2310

== ENCOUNTER 2022-03-22 16:45 | Emergency (ER) | payer MEDICARE, MEDICAID, SELFPAY ==
[2022-03-22 16:46] VITALS: BP 153/96; PULSE 105; RESP 16; TEMP 36.2; O2SAT 98; BMI 17.7
--- NOTE | 2022-03-22 18:53 | ED.RN ---
PATIENT REQUESTING PAIN MEDS. RN INFORMED PATIENT SHE MUCH WAIT FOR A DOCTOR TO SEE HER BEFORE PAIN MEDS CAN BE ORDERED.
--- NOTE | 2022-03-22 19:19 | CT_ITS ---
STUDY: CT BRAIN WITHOUT CONTRAST REASON FOR EXAM: Female, 66 years old. Head injury, fall. RADIATION DOSAGE (If Supplied By Facility): CTDIvol = ( 44.99 ) mGy, DLP = ( 846.73 ) mGycm TECHNIQUE: Transaxial CT imaging of the brain was performed without administration of intravenous contrast material. Individualized dose optimization techniques were used for this CT. COMPARISON: August 24, 2018 FINDINGS: Normal soft tissue structures. Normal calvarium. There is mild cerebral atrophy with widening of the extra-axial spaces and ventricular dilatation. There are areas of decreased attenuation within the white matter tracts of the supratentorial brain, consistent with microvascular disease changes. Normal basal ganglia and thalami. Normal brainstem. Normal cerebellum. There is no intracranial hemorrhage. There are no findings of an acute ischemic infarction. Normal visualized paranasal sinuses. There is postoperative or erosive change of the nasal cavity. CT/Brain/Head without Contrast IMPRESSION: Chronic involutional changes of the brain. Electronically Signed: Gui Manley MD at 20:30 EST ,
--- NOTE | 2022-03-22 19:19 | CT_ITS ---
STUDY: CT CERVICAL SPINE WITHOUT CONTRAST REASON FOR EXAM: Female, 66 years old. Pain RADIATION DOSAGE (If Supplied By Facility): CTDIvol = ( 11.80 ) mGy, DLP = ( 236.51 ) mGycm TECHNIQUE: High resolution transaxial imaging was performed without contrast material. Sagittal and coronal images were reconstructed. Individualized dose optimization techniques were used for this CT. COMPARISON: None FINDINGS: Normal craniovertebral junction. There are degenerative changes of the anterior atlantoaxial articulation. Normal odontoid process. Normal cervical lordosis. Normal vertebral bodies and posterior osseous elements. There is no acute fracture. C2-3: Normal endplates. Normal disc height and morphology. Normal central canal and intervertebral neuroforamina. C3-4: Mild spurring to the left. Facet spurring and ankylosis on the left. No canal stenosis. Neural foramina are patent. C4-5: Normal endplates. Normal disc height and morphology. Mild facet spurring. Normal central canal and intervertebral neuroforamina. C5-6: Mild spurring. Mild facet spurring. No canal stenosis. Right greater than left foraminal narrowing. C6-7: Normal endplates. Normal disc height and morphology. Normal central canal and intervertebral neuroforamina. C7-T1: Normal endplates. Normal disc height and morphology. Normal central canal and intervertebral neuroforamina. Normal visualized soft tissue structures. There are fibrotic densities at the lung apices. There are atherosclerotic calcifications. CT/Spine Cervical without Contras IMPRESSION: Degenerative change. No fracture. Electronically Signed: Gui Manley MD at 20:34 EST ,
--- NOTE | 2022-03-22 19:22 | EX.ED.GENINJ ---
HPI History of Present Illness Chief Complaint: Fall Narrative Narrative: 66-year-old female presenting for evaluation after a fall she fell last evening. She states she was cleaning the stairs bent over. She was descending the stairs and thought she got to the bottom when she fell backwards after missing a step and hit her head on the concrete. She denies LOC. She not complaining of any visual complaints, nausea, vomiting. She does state that she hurt her lower back. He has been able to get up and walk. She states that its painful when she does so. She and her family report that she was recently on hospice for end-stage COPD. She supposed to wear 3 L at baseline. Apparently she was overmedicated about 2 weeks ago and had to come to the emergency room for Narcan. After that time I discontinued hospice. They have not reached out to Dr. Garcia so the patient does not have her medications at home. [facility] Medical History Alcohol dependence Alcoholism Allergic rhinitis Anxiety Back pain Chronic bronchitis Chronic hyponatremia Chronic hypoxemic respiratory failure Chronic respiratory failure with hypoxia COPD (chronic obstructive pulmonary disease) Depression Dysphagia Emphysema of lung Hospice care Hypertension Hyponatremia Insomnia Nicotine dependence, cigarettes, uncomplicated Protein-calorie malnutrition, moderate Smoker Smoking greater than 30 pack years Tobacco abuse Home Medications citalopram 20 mg tablet 20 mg PO DAILY depression 10/13/15 [History Last Taken 01/16/22] omeprazole 40 mg capsule,delayed release 40 mg PO DAILY acid reflux 10/13/15 [History Last Taken 01/16/22] amlodipine 2.5 mg tablet (Norvasc) 2.5 mg PO DAILY blood pressure 11/12/18 [History Last Taken 01/16/22] atorvastatin 10 mg tablet 10 mg PO QHS CHOLESTEROL 10/25/20 [History Last Taken 01/16/22] fluticasone fur. 200 mcg-umeclid 62.5 mcg-vilant 25 mcg inhalat.powder (Trelegy Ellipta) 1 inh inhalation DAILY copd 09/28/21 [History Last Taken 09/28/21] thiamine HCl (vitamin B1) 100 mg tablet 100 mg PO TID supplement 09/28/21 [History Last Taken 09/27/21] albuterol sulfate 90 mcg/actuation aerosol inhaler 2 puff inhalation Q4H PRN PRN Shortness Of Breath ##1 10/06/21 [Rx Last Taken Unknown] ipratropium 0.5 mg-albuterol 3 mg (2.5 mg base)/3 mL nebulization soln 3 ml inhalation Q4H PRN PRN SOB &/OR WHEEZING #180 mL 11/25/21 [Rx Last Taken Unknown] acetaminophen 325 mg tablet 650 mg PO Q6H PRN PRN pain/fever 01/18/22 [History Last Taken 01/16/22] cholecalciferol (vitamin D3) 25 mcg (1,000 unit) tablet (Vitamin D3) 25 mcg PO DAILY supplement 01/18/22 [History Last Taken Unknown] polyethylene glycol 3350 17 gram oral powder packet 17 g PO DAILY PRN Constipation 01/18/22 [History Last Taken Unknown] cephalexin 500 mg capsule 500 mg PO TID #16 caps 01/19/22 [Rx Last Taken Unknown] Allergy/AdvReac Type Severity Reaction Status Date / Time bupropion [From Wellbutrin] Allergy Severe hallucinati Verified 03/22/22 16:46 ons Family History Mother Heart disease Hypertension CAD (coronary artery disease) Other No pertinent family history Surgical History S/P chest tube placement Social History household members: significant other history of recent travel: No Smoking Status: Current every day smoker tobacco type: cigarettes quit status: considering quitting counseling given: provider counseling and counseling >10 minutes alcohol intake: current alcohol intake frequency: 3 or more drinks per day Alcohol type: beer details: 4-6 beers daily. substance use type: does not use ROS ROS ED Constitutional Constitutional ED: Denies chills or fever(s) Eyes Eyes: Denies change in vision ENT ENT ED: Denies rhinorrhea or sore throat Cardiovascular Cardiovascular: Denies chest pain or palpitations Respiratory/Chest Respiratory/Chest: Denies cough or dyspnea Gastrointestinal Gastrointestinal: Denies abdominal pain, nausea or vomiting Musculoskeletal Musculoskeletal: Reports back pain and neck pain Integumentary Denies abscess or Abrasions Neurologic Neurologic: Reports headache(s) Psychiatric Psychiatric: Denies anxiety or depression EXAM Physical Exam Const Vital Signs: 03/22/22 16:46 03/22/22 21:00 Temperature 97.1 F L Temperature Source Temporal Pulse Rate 105 H Respiratory Rate 16 18 Blood Pressure 153/96 H 133/86 H Blood Pressure Mean 115 101 Pulse Ox 98 99 Oxygen Delivery Method Room Air Nasal Cannula Oxygen Flow Rate (L/min) 3 Positive well nourished General Appearance ED: NAD HEENT atraumatic Eyes PERRL and EOMs intact bilaterally Chest Wall inspection of chest normal and palpation of chest normal Resp normal respiratory effort and clear to auscultation bilaterally Auscultation: Negative for rales, rhonchi or wheezes Cardio regular rhythm Rate: tachycardic GI normal to inspection, nondistended, normoactive bowel sounds Back/Spine Back/Spine Narrative: Tenderness to palpation of the cervical spine approximately C6 and 7. No midline deformity or step-off. Tenderness to palpation of the lumbar spine without midline deformity or step-off. Neuro oriented x3, CN's II-XII intact bilaterally, moves all extremities and no focal motor deficits Sensorium / Orientation: alert Motor Exam: strength 5/5 throughout Psych mental status grossly normal Skin no rashes or lesions noted and no wounds MDM MDM MDM Narrative Medical decision making narrative: Presenting with back pain, neck pain, closed head injury. She states she apparently had a mechanical fall and she tripped backwards while cleaning the stairs. She did not lose consciousness. No focal neurologic deficits or lateralizing signs or symptoms. There is no evidence of head trauma. Patient was medicated with morphine and Zofran. I did obtain basic lab work and her CBC and CMP are unremarkable. CT brain and cervical spine are negative for acute findings. X-ray of the lumbar spine was obtained and shows T12 compression fracture. Patient does not report a history of this. This is likely due to to the fall. She is given Lidoderm patch and [place]. Patient will be given prescription for both. I did try to obtain close follow-up but I was unable to reach the on-call physician for Dr. Garcia. Family did express concern that the patient was out of some of her medications and she has been out of them for about 2 weeks. Are not sure which ones at this point because they are just letting of this tonight. Since they have been waiting for over an hour they wish to go home. They will call Dr. Garcia's office in the morning. Impression: 1. Mechanical fall 2. T12 compression fracture 3. Closed head injury 4. Cervical strain Lab Data Attestation: I reviewed the patient's lab results. Labs: Laboratory Results - last 24 hr 03/22/22 03/22/22 19:30 19:30 WBC 4.8 RBC 3.95 L Hgb 12.3 Hct 35.3 L MCV 89.4 MCH 31.1 MCHC 34.8 RDW Std Deviation 45.6 H RDW Coeff of Oral 13.8 Plt Count 320 MPV 9.1 Immature Gran % (Auto) 0.200 Neut % (Auto) 70.4 H Lymph % (Auto) 14.8 L [place] % (Auto) 13.8 H Eos % (Auto) 0.2 Baso % (Auto) 0.6 Absolute Neuts (auto) 3.4 Absolute Lymphs (auto) 0.71 L Nucleated RBC % 0 Sodium 133 L Potassium 3.6 Chloride 99 Carbon Dioxide 26.0 Anion Gap 8 BUN 12 Creatinine 0.51 L Estim Creat Clear Calc 42.41 Est GFR (MDRD) Af Amer 155 Est GFR (MDRD) Non-Af 128 BUN/Creatinine Ratio 23.7 H Glucose 104 Calcium 8.3 L Total Bilirubin 0.70 Direct Bilirubin 0.23 AST 13 L ALT 20 Alkaline Phosphatase 64 Total Protein 6.7 Albumin 3.5 Globulin 3.2 Radiography Diagnostic Testing: Clinical Impression(s) from Imaging Studies Brain CT 03/22/22 19:19 IMPRESSION: Chronic involutional changes of the brain. Electronically Signed: Gui Manley MD at 20:30 EST , Cervical Spine CT 03/22/22 19:19 IMPRESSION: Degenerative change. No fracture. Electronically Signed: Gui Manley MD at 20:34 EST , Lumbar Spine X-Ray 03/22/22 19:45 IMPRESSION: Degenerative changes of the spine, as detailed above. Mild T12 compression fracture. Electronically Signed: Gui Manley MD at 20:24 EST , Discharge Plan Triage Chief Complaint: Fall ED Provider: Trey Dale Dx/Rx/DC Orders Instructions: Compression Fx, ED Head Injury (Adult), ED Neck Sprain or Strain, ED Fall Prevention Prescriptions: No Action amlodipine [Norvasc] 2.5 mg tablet 2.5 mg PO DAILY albuterol sulfate 90 mcg/actuation HFA aerosol inhaler 2 puff inhalation Q4H PRN PRN (Reason: Shortness Of Breath) Qty: 1 6RF ipratropium-albuterol 0.5 mg-3 mg(2.5 mg base)/3 mL solution for nebulization 3 ml inhalation Q4H PRN PRN (Reason: SOB &/OR WHEEZING) Qty: 180 6RF omeprazole 40 MG capsule,delayed release(DR/EC) 40 mg PO DAILY citalopram 20 MG tablet 20 mg PO DAILY atorvastatin 10 mg tablet 10 mg PO QHS Trelegy Ellipta 200-62.5-25 mcg blister with device 1 inh inhalation DAILY thiamine HCl (vitamin B1) 100 mg Tablet 100 mg PO TID acetaminophen 325 mg tablet 650 mg PO Q6H PRN PRN (Reason: pain/fever) Label Comments: TAKE 1 TABLET EVERY 6 HOURS NEEDED Rx Instructions: takes morning and night polyethylene glycol 3350 17 gram Powder In Packet 17 g PO DAILY PRN (Reason: Constipation) cholecalciferol (vitamin D3) [Vitamin D3] 25 mcg (1,000 unit) Tablet 25 mcg PO DAILY cephalexin 500 mg capsule 500 mg PO TID Qty: 16 0RF Rx Instructions: start the evening of 01/19/22 Primary Care Provider: May Garcia Referrals: May Garcia MD [Primary Care Provider] - Disposition Disposition: Home, Self Care
[2022-03-22] MEDS: Morphine 4 MG/ML Syringe IV (19:35)
[2022-03-22] MEDS: Ondansetron 4 MG/2 ML Vial IV (19:35)
[2022-03-22 19:39] LABS: Absolute Lymphocyte Count 0.71 X10^3/uL (0.83-4.51); Absolute Neutrophil Count 3.4 X10^3/uL (2.0-7.7); Basophil# 0.03 X10^3/uL; Basophil% 0.6 % (0-1); Eosinophil# 0.01 X10^3/uL; Eosinophils% 0.2 % (0-5); Hematocrit 35.3 % (37-47); Hemoglobin 12.3 g/dL (12.0-15.0); Lymphocyte # 0.71 X10^3/ul (0.83-4.51); Lymphocyte % 14.8 % (19-41); Mean Corp Hgb Conc 34.8 g/dL (32-36); Mean Corpuscular Hgb 31.1 pg (27.0-32.0); Mean Corpuscular Volume 89.4 fL (81-99); Mean Platelet Vol. 9.1 fl (6.2-12.0); Monocyte# 0.66 X10^3/uL; Monocyte% 13.8 % (0-10); NRBC Flagged by Analyzer 0 % (0-5); Neutrophil # 3.37 X10^3/uL (2.7-7.7); Neutrophil % 70.4 % (47-70); Platelet Count 320 K/mm3 (150-450); RBC Distribution Width CV 13.8 % (11.6-14.6); RBC Distribution Width SD 45.6 fl (35.1-43.9); Red Blood Count 3.95 M/mm3 (4.2-5.4); White Blood Count 4.8 K/mm3 (4.4-11.0)
--- NOTE | 2022-03-22 19:45 | RAD_ITS ---
STUDY: X-RAY - LUMBAR SPINE REASON FOR EXAM: Female, 66 years old. Pain TECHNIQUE: 3 view(s) of the lumbar spine were obtained. COMPARISON: December 25, 2019 FINDINGS: There is straightening of the normal lumbar lordosis. There is a levoscoliosis of the lumbar spine. There is generalized demineralization of the vertebral bodies. There is multi-level degenerative disc disease with multi-level disc space narrowing. There is no demonstrated lumbar fracture. There is mild T12 compression fracture with 10% loss of height. There is atherosclerotic calcification of the abdominal aorta without a demonstrated aneurysm. RAD/Lumbar Spine 2 or 3 Views IMPRESSION: Degenerative changes of the spine, as detailed above. Mild T12 compression fracture. Electronically Signed: Gui Manley MD at 20:24 EST ,
[2022-03-22 19:57] LABS: AST(SGOT) 13 U/L (15-37); Alanine Aminotransfer ALT/SGPT 20 U/L (13-56); Albumin, Serum 3.5 g/dL (3.2-5.0); Alkaline Phosphatase 64 U/L (45-117); Anion Gap 8 (5-15); BUN 12 mg/dL (7-18); BUN/Creat Ratio 23.7 RATIO (10-20); Bilirubin, Direct 0.23 mg/dL (0.00-0.30); Calcium,Total 8.3 mg/dL (8.5-10.1); Chloride 99 mmol/L (98-107); Creatinine, Serum 0.51 mg/dL (0.55-1.02); EST Glomerular Filtration Rate 128 mL/min (>60); Est Glom Filt Rate - Afr Amer 155 mL/min (>60); Estimated Creatinine Clearance 42.41 ml/min; Globulin 3.2 g/dL (2.2-4.2); Glucose 104 mg/dL (74-106); Potassium 3.6 mmol/L (3.5-5.1); Protein, Total 6.7 g/dL (6.4-8.2); Sodium Level 133 mmol/L (136-145)
[2022-03-22 21:00] VITALS: BP 133/86; RESP 18; O2SAT 99
[2022-03-22 23:16] VITALS: BP 137/89
[2022-03-22] MEDS: Lidocaine 5% Patch 1 PATCH TOPICAL (23:21)
[2022-03-22] MEDS: HYDROcodone Bitartrate/Apap 5/325 Tablet PO (23:21)
== END 2022-03-22 23:29 | disposition home or self-care (01) ==
PROVIDERS: Emergency Provider Student in an Organized Health Care Education/Training Program; PCP Internal Medicine; Visit Provider Student in an Organized Health Care Education/Training Program
DX: S09.90XA Unspecified injury of head, initial encounter (principal); M48.54XA Collapsed vertebra, not elsewhere classified, thoracic region, initial encounter for fracture; J44.9 Chronic obstructive pulmonary disease, unspecified; I10 Essential (primary) hypertension; F17.210 Nicotine dependence, cigarettes, uncomplicated; S16.1XXA Strain of muscle, fascia and tendon at neck level, initial encounter; W19.XXXA Unspecified fall, initial encounter
CPT/HCPCS: 70450; 72100; 72125; 80048; 80076; 85025; 96374; 96375; 99284; A4216; J2405

== ENCOUNTER 2022-03-24 14:45 | Observation (INO) | payer MEDICARE, MEDICAID, SELFPAY ==
[2022-03-24] VITALS (9 sets, daily range): BP systolic 99–129; BP diastolic 60–98; PULSE 62–97; RESP 14–26; TEMP 36.4; O2SAT 92–99; BMI 17.9; BMI 17.5
--- OUTSIDE RECORDS SUMMARY | 2022-03-24 14:53 | XMS RPT_ITS | CCD ---
:1955 Author Organization [facility] Care Team Providers Name Role Phone Selwyn Mejias MD Primary Care Provider ERIN DILLARD Attending Unavailable SELWYN MEJIAS Primary Care Unavailable LACY MANZANARES Attending Unavailable SELWYN MEJIAS Primary Care Unavailable LACY MANZANARES Referring Unavailable SELWYN MEJIAS Primary Care Unavailable SELWYN MEJIAS Attending Unavailable SELWYN MEJIAS Referring Unavailable SELWYN MEJIAS Primary Care Unavailable Allergies Allergy Reported Allergy Type Date of Reaction(s) Facility Classification Allergen(s) Onset buPROPion; Drug Allergy 05-08-2008 Mental Status [facility] (20 sources) Translations: Change Work Phon e: [BUPROPION] Medications Current Medications Medication Drug Class(es) Dates Sig (Normalized) Sig (Orig inal) gabapentin 300 mg oral capsule Anti-epileptic Start: 11-11-2020 take 1 capsule by gabapentin (19 sources) Agent End: 03-13-2022 mouth twice daily (NEURON TIN) 300 mg capsule Indications: Compression fracture of T5 vertebra, seque la , Closed fractu re of multiple rib s of right side w ith routine healing Take 1 capsule by mouth twice irma ly for 90 days. 60 capsule 5 12/13/2021 03/13/2022 Acti ve Comment on above: Take 1 capsule by mouth twic e daily for 90 days. Completed/Discontinued Medications Medication Drug Class(es) Dates Sig (Normalized) Sig (Orig inal) acetaminophen 325 mg / HYDROcodone bitartrate 5 mg oral tabl et Opioid Agonist Start: 09-21-2020 take 1 tablet by HYDROcodone-acetam (14 sources) End: 12-13-2021 mouth every twelve inophe n (NORCO) hours as needed for 5-325 mg per pain tablet Indications: Cervical spondylosis without myelopa thy , Lumbosacral spondylosis without myelopa thy , Compression fracture of T5 vertebra with routine healing , subsequent encounter Take 1 tablet by mouth every 12 hours as needed for pain (Severe pain) f or up to 7 days. 1 4 tablet 0 12/13/2021 Acti ve Comment on above: Take 1 tablet by mouth every 12 hours as needed for pain (Severe pain) for up to 7 days. [id number] 200 actuat albuterol 0.09 mg/actuat metered dose inhaler beta2-Adrenergic Start: take 2 puff(s) albuterol HFA (20 sources) Agonist 12-13-2020 by inhalation (VENTOLIN HFA) 90 every four mcg/actuation hours as needed inhaler Inha le 2 Puffs as instructed ever y 4 hours as needed . -active 18 g 11 12/13/2020 Acti ve Start: 05-07-2018 albuterol (PROVENTIL ) 2.5 mg /3 mL (0.083 %) nebulizer solution Indications: COPD wi th exacerbation ([facility]) Use 3 mL via nebulizer every 4 hours as nee ded for Wheezing/Shortness of Breath. Use over 5-15minutes. 50 Vial 3 05/07/2018 Active Comment on above: Use 3 mL via nebulizer every 4 hours as needed for Wheezing/Shortness of Breath . Use over 5-15minutes. Inhale 2 Puffs as instructed every 4 hours as needed. -active amLODIPine 2.5 mg oral tablet Dihydropyridine Start: 06-08-2021 herb e 1 tablet amLODIPine (20 sources) Calcium Channel End: 08-19-2021 by mouth once (NORVASC ) 2.5 mg Ej daily tablet Take 1 tablet by mouth once daily. 30 tablet 5 08/19/2021 Active Comment on above: Take 1 tablet by mouth once daily. aspirin 81 mg chewable tablet Platelet Aggregation Start: herb e 1 aspirin 81 mg (19 sources) Inhibitor, Nonsteroidal 06-08-2021 tablet by chew able tablet Anti-inflammatory Drug mouth once Indic ations: PAD daily (peripheral art jessa disease) ([facility]) Take 1 tablet b y mouth once meaghan y. 30 tablet 0 06/08/2021 Acti ve Comment on above: Take 1 tablet by mouth once daily. atorvastatin 10 mg oral tablet HMG-CoA Start: 06-08-2021 take 1 tablet atorvastatin (20 sources) Reductase End: 12-13-2021 by mouth once (LIPITOR) 1 0 mg Inhibitor daily tablet Indicati ons: PAD (peripheral artery disease) (HCC) Take 1 ta blet by mouth once daily. 30 table t 5 12/13/2021 Acti ve Comment on above: Take 1 tablet by mouth once daily. cholecalciferol 0.025 mg oral tablet Vitamin D Start: 08-30-2018 take 1 tablet cholecalciferol (19 sources) by mouth once (VITAMIN D3) 1 ,000 daily unit tab tablet Take 1 tablet by mouth once daily. 0 2018 Active Comment on above: Take 1 tablet by mouth once daily. ciclopirox 80 mg/ml topical solution Start: 08-10-2020 Ciclopirox (PENLAC) 8 % (19 sources) solution Apply to affected area once daily. TO AFFECTED AREA. 6.6 mL 2 2020 Active Comment on above: Apply to affected area once daily. TO AFFECTED AREA. citalopram 20 mg oral tablet Serotonin Start: 06-08-2021 take 1 tablet citalopram (20 sources) Reuptake End: 12-13-2021 by mouth once (CELEXA) 20 mg Inhibitor daily tablet Take 1 tablet by mouth once daily. 30 tablet 5 12/13/2021 Acti ve Comment on above: Take 1 tablet by mouth once daily. codeine phosphate 2 mg/ml / guaiFENesin 20 mg/ml oral soluti on Opioid Agonist Start: 12-13-2021 take 5-10 mL codeine-guaiFENesin (3 sources) End: 12-20-2021 by mouth (GUAIFENESIN AC) 10-100 four times mg/5 mL syrup daily as Indications: CO PD, severe needed (HCC) , Cough T kam 5-10 mL by mouth fou r times daily as needed for up to 7 days. 236 mL 0 12/13/202111/25 Start: 07-06-2021 take 5-10 mL by mouth four codeine-guaiF ENesin (GUAIFENESIN AC) End: 07-13-2021 times daily as needed 10-100 mg/5 mL syr up Indications: COPD, severe (HCC) , Cough Take 5-10 mL by mouth four times irma ly as needed for up to 7 days. 236 mL 0 07/06/2021 07/13/2021 Active Comment on above: Take 5-10 mL by mouth four t imes daily as needed for up to 7 days. COMPOUNDED PRESCRIPTION Start: 11-15-2018 COMPOUNDED PRESCRIPTION Overnight (20 sources) pulse oximetry- - J42 Chronic bronchitis, R09 .02hypoxemia 1 Each 1 11/15/2018 Acti ve Start: 06-22-2009 COMPOUNDED PRESCRIPT ION Indications: Unspecified chronic bronchitis (HCC) Neb ulizer for home use. Dx: chronic bronchitis 1 0 06/22/2009 Active Comment on above: Nebulizer for home use. Dx: chronic bronchitis Overnight pulse oximetry-- J 42 Chronic bronchitis, R09.02hypoxemia diclofenac sodium 0.01 mg/mg topical gel Nonsteroidal Start: apply 2 g diclofenac sodium (19 sources) Anti-inflammatory Drug 03-16-2020 topically four (VO LTAREN) 1 % times daily topical gel Indications: Chun nd arthritis Apply 2 grams to affect ed area four times daily. 200 g 2 03/16/2020 Acti ve Comment on above: Apply 2 grams to affected ar ea four times daily. 30 actuat fluticasone furoate 0.1 mg/act uat / umeclidinium 0.0625 mg/actuat / vilanterol 0.025 mg/actuat dry powder inhaler Anticholinergic, Start: 1 take 1 cevmsqacjzy-kdowmyuhl-lzythd er (20 sources) Corticosteroid, End: 12-13-2021 puff(s) by (TRELENERI ELLIPTA) 100-62.5-25 beta2-Adrenergic inhalation mcg inhalat ion powder Inhale 1 Agonist once daily Puff as instruc hal once daily. 1 Each 5 2021 Active Comment on above: Inhale 1 Puff as instructed once daily. Food Supplement, Lactose-Free (ENSURE ACTIVE HIGH PROTEIN) l iqd Start: 12-13-2020 take 237 mL by Food Supplement, (13 sources) mouth once daily Lactose-Loki e (ENSURE ACTIVE HIGH PRO TEIN) liqd Take 237 m L by mouth once meaghan y. 7110 mL 2 12/13/2020 Active Comment on above: Take 237 mL by mouth once da nicholas. 12 hr guaiFENesin 600 mg extended release oral tablet Start: 11-15-2018 take 2 tablets by guaiFENesin (MUCINEX) (19 sources) mouth twice daily 600 mg 12 hr tablet as needed Take 2 tablets by mouth twice daily as needed for Cold/Allerg y Symptoms. 60 ta blet 11 11/15/2018 Acti ve Comment on above: Take 2 tablets by mouth twic e daily as needed for Cold/Allergy Symptoms. ibuprofen 800 mg oral tablet Nonsteroidal Start: 01-05-2021 take 1 ibuprofen (20 sources) Anti-inflammatory Drug End: 08-19-2021 tablet by (M OTRIN) 800 mg mouth every tablet Take 1 eight hours tablet by mouth as needed every 8 hours a s needed for pain (back). Take with food 60 tablet 2 08/19/2021 Active Comment on above: Take 1 tablet by mouth every 8 hours as needed for pain (back). Take 1 tablet by mouth every 8 hours as needed for pain (back). Take with food ketoconazole 20 mg/ml topical cream Azole Antifungal Start: 021 ketoconazole (NIZORAL) 2 (19 sources) % cream Apply 1 application to affected area once daily . To rash on legs and fee t for 2 weeks at least and continue for 1 week after rash reso lves. 30 g 0 05/19/2020 Active Comment on above: Apply 1 application to affec hal area once daily. To rash on legs and feet for 2 weeks at leas t and continue for 1 week after rash resolves. losartan potassium 50 mg oral tablet Angiotensin 2 Start: 05-24 take 1 tablet losartan (COZAAR) (20 sources) Receptor Ej End: 12-13-2021 by mouth twice 50 mg tablet Take daily 1 tablet by annita th twice daily. 60 tablet 5 12/13/2021 Acti ve Comment on above: Take 1 tablet by mouth twice daily. nabumetone 500 mg oral tablet Nonsteroidal Start: take 1 nabumetone (19 sources) Anti-inflammatory Drug 04-01-2020 tablet by (RELA FEN) 500 mg mouth twice tablet daily Indications: Lumbosacral spondylosis without myelopa thy Take 1 tablet b y mouth twice irma ly. 60 tablet 0 04/01/2020 Acti ve Comment on above: Take 1 tablet by mouth twice daily. omeprazole 40 mg delayed release oral capsule Proton Pump St art: 06-08-2021 take 1 omeprazole (PRILOSEC) (20 sources) Inhibitor End: 12-13-2021 capsule by 40 mg capsul e mouth once Indications: daily Gastroesophagea l reflux disease without esophagitis Herb e 1 capsule by mout h once daily. 30 capsu le 5 12/13/2021 Acti ve Comment on above: Take 1 capsule by mouth once daily. polyethylene glycol 3350 11346 mg powder for oral solution O smotic Laxative Start: 08-30-2018 take 1 dose polyethylene glycol (19 sources) by mouth 3350 (MIRALAX, once daily GLYCOLAX) 17 gr am packet Take 1 Packet by mouth once daily. 0 08/30/2018 Acti ve Comment on above: Take 1 Packet by mouth once daily. predniSONE Start: 12-22-2019 PREDNISONE ORAL Take by mouth. See Taper (12 sources) End: 12-13-2021 instructions . 0 12/22/2019 12/13/2021 Discontinued (O ther) Start: 12-22-2019 PREDNISONE ORAL Take by mouth. See Taper instructions. 0 12/22/2019 Active Comment on above: Take by mouth. See Taper ins tructions. promethazine hydrochloride 1.25 mg/ml oral solution Phenothi azine Start: 05-19-2020 take 6.25-12.5 promethazine (19 sources) End: 12-13-2021 mg by mouth (PHENERGAN) 6.25 mg/5 every six hours mL syrup Herb e 5-10 mL as needed by mouth four t imes daily as needed for nausea/vomiting (and cough). 240 mL 1 12/13/2021 Acti ve Comment on above: Take 5-10 mL by mouth four t imes daily as needed for Nausea/Vomiting (and cough). thiamine 100 mg oral tablet Start: 08-29-2018 take 1 t ablet by thiamine (VITAMIN B1) (19 sources) mouth three times 100 mg tab let Take 1 daily tablet by mouth three times daily. 0 08/29/2018 Acti ve Comment on above: Take 1 tablet by mouth three times daily. Problems Active Problems Problem Problem Date Documented Date Episodic/Chr onic Classification Anxiety disorders Generalized anxiety Onset: 02-06-2008 Chr onic (20 sources) disorder; 02-06-2008 Translations: [Generalized anxiety disorder] Chronic obstructive pulmonary disease and bronchiectasis Severe chr onic Onset: Chronic (20 sources) obstructive pulmonary 12-17-2006 disease; Translations: [Chronic obstructive pulmonary disease, unspecified] Esophageal disorders Gastroesophageal Onset: 10-20-2017 Chr onic (20 sources) reflux disease without 10-20-2017 esophagitis; Translations: [Gastro-esophageal reflux disease without esophagitis] Essential hypertension Essential Onset: 02-27-2017 Chron ic (20 sources) hypertension; 02-27-2017 Translations: [Essential (primary) hypertension] Glaucoma Unspecified glaucoma; Onset: 02-06-2008 Chroni c (19 sources) Translations: 02-06-2008 [Unspecified glaucoma] Mood disorders Reactive depression Onset: 06-13-2017 Chroni c (20 sources) (situational); 02-06-2008 Translations: [Major depressive disorder, single episode, unspecified] Nutritional deficiencies Deficiency of Ch ronic (1 source) macronutrients; Translations: [Unspecified protein-calorie malnutrition] Other lower respiratory disease Cough; Translations: Onset: Episodic (9 sources) [Cough] 01-05-2022 Other lower respiratory disease Lung mass; Onset: Episodic (8 sources) Translations: [Other 01-05-2022 nonspecific abnormal finding of lung field] Other upper respiratory disease Allergic rhinitis; Onset: Chronic (19 sources) Translations: 05-08-2008 [Allergic rhinitis, unspecified] Peripheral and visceral atherosclerosis Peripheral vascular Onset: Chronic (10 sources) disease, unspecified; 08-19-2021 Translations: [Peripheral vascular disease, unspecified] Respiratory failure; insufficiency; arrest (adult) Chronic hypox emic Onset: 12-25-2019 Chronic (20 sources) respiratory failure; 12-25-2019 Translations: [Chronic respiratory failure with hypoxia] Spondylosis; intervertebral disc disorders; other back problems Cervical spondylosis Onset: Chronic (9 sources) without myelopathy; 03-02-2020 Translations: [Spondylosis without myelopathy or radiculopathy, cervical region] Substance-related disorders Tobacco user; Onset: 08-29-2018 Chronic (20 sources) Translations: 12-17-2006 [Nicotine dependence, unspecified, uncomplicated] Past or Other Problems Problem Classification Problem Date Documented Date Ep isodic/Chronic Administrative/social admission Financial problem; Onset: Episodic (2 sources) Translations: [Problem related to housing and 2 economic circumstances, unspecified] Bacterial infection; unspecified site Helicobacter pylori Onset: 12-08-2008 Episodic (19 sources) gastrointestinal tract infection; 9 Translations: [Helicobacter pylori [H. pylori]] E Codes: Fall Fall from ladder; Onset: 08-29-2018 Episodic (19 sources) Translations: [Fall on and from ladder, 9 initial encounter] Fracture of lower limb Fracture of ankle; Onset: 11-24-2014 Episodic (19 sources) Translations: [Other fracture of 5 unspecified lower leg, initial encounter for closed fracture] Gastritis and duodenitis Duodenitis; Onset: 09-14-2008 Epi sodic (20 sources) Translations: [Duodenitis without 9 bleeding] Immunizations and screening for infectious disease Requires varicel la Onset: Episodic (4 sources) vaccination; Translations: 2 [Encounter for immunization] Other and unspecified benign neoplasm Benign neoplasm of Onset: 12-09-2008 Episodic (19 sources) skin of trunk; Translations: [Other 9 benign neoplasm of skin of trunk] Other fractures Compression fracture Onset: 08-29-2018 Epis odic (20 sources) of thoracic spine; Translations: [Wedge 9 compression fracture of T5-T6 vertebra, initial encounter for closed fracture] Other fractures Closed fracture of Onset: 08-29-2018 Episod ic (20 sources) multiple ribs; Translations: 9 [Multiple fractures of ribs, right side, subsequent encounter for fracture with routine healing] Other fractures Wedge compression Onset: Episodi c (1 source) fracture of T5-T6 vertebra, initial 9 encounter for closed fracture; Translations: [Compression fracture of T5 vertebra, initial encounter ([facility])] Other fractures Multiple fractures of Onset: Epi sodic (1 source) ribs, right side, subsequent encounter 9 for fracture with routine healing; Translations: [Closed fracture of multiple ribs of right side with routine healing] Other gastrointestinal disorders Dysphagia; Onset: 08-26-19 Episodic (19 sources) Translations: [Other dysphagia] 9 Other injuries and conditions due to external causes Traumatic i njury; Onset: 08-29-2018 Episodic (19 sources) Translations: [Injury, unspecified, initial 9 encounter] Other lower respiratory disease Wheezing; Onset: 9 Episodic (19 sources) Translations: [Wheezing] 9 Other lower respiratory disease Hypoxia; Translations: Onset: 08-29-2018 Episodic (20 sources) [Hypoxemia] 9 Other lower respiratory disease Solitary nodule of Onset: Episodic (19 sources) lung; Translations: [Solitary pulmonary 0 nodule] Other lower respiratory disease Hypoxemia; Onset: Episodic (1 source) Translations: [Hypoxia] 9 Other screening for suspected conditions (not mental disorders or infectious disease) Mammography abnormal; Onset: 08-29-2008 Episodic (20 sources) Translations: [Other abnormal and 9 inconclusive findings on diagnostic imaging of breast] Other skin disorders Disorder of skin Onset: 12-01-2008 Epi sodic (19 sources) and/or subcutaneous tissue; Translations: 9 [Disorder of the skin and subcutaneous tissue, unspecified] Pleurisy; pneumothorax; pulmonary collapse Tension pneumothorax; Onset: 11-04-2019 Episodic (19 sources) Translations: [Spontaneous tension 0 pneumothorax] Pneumonia (except that caused by tuberculosis or sexua lly transmitted disease) Community acquired Onset: 12-25-2019 Episodic (19 sources) pneumonia; Translations: 0 [Pneumonia, unspecified organism] Residual codes; unclassified Insomnia; Onset: 12-17-2006 Episodic (19 sources) Translations: [Insomnia, 7 unspecified] Residual codes; unclassified Family history of Onset: 009 Episodic (19 sources) malignant neoplasm of gastrointestinal 9 tract; Translations: [Family history of malignant neoplasm of digestive organs] Spondylosis; intervertebral disc disorders; other back probl ems Backache; Onset: 03-17-2019 Episodic (19 sources) Translations: [Dorsalgia, 9 unspecified] Results Test Name Value Interpretation Reference Range Facility [facility] on 03-13-2022 [facility] Letter Text [facility] on 01-30-2022 [facility] Telephone (MPPV) Normal [facility] DALIA DREW ([id number]) 1955 [facility] Date Time Provider Department 01/30/22 SELWYN MEJIAS [facility] During your visit today, we recorded the following inf ormation about you: Razia English RN 01/30/2022 12:43 PM Signed Palliative Medicine at Home Referral Assessment Referral Accepted: Yes, Discharge Dispos ition: Home: Timeframe for schedulin-3 weeks Pall Med appropriate diagnosis: Associated Diagnoses COPD, severe (HCC) [J44.9] Established with Inpatient Pall Med team: no Reason for consult: introduction to services, goals of care, and symptom support Pt was on hospice and revoked orders and was adm itted to [facility] for exacerbation of her COPD. D/C and they are requesting orders for pa lliative care. Patient declined services from her [facility] team. Refusing to take medications. Razia English RN January 30, 2022 Tahira Rodriguez 02/15/2022 3:13 PM Signed Call placed to patient to discuss PMH referral and off er telephonic/virtual visit, however, there was no answer. Unable to leave m essage. Tahira Rodriguez 02/28/2022 3:17 PM Signed Call placed to patient to discuss PMH referral and off er telephonic/virtual visit, however, there was no answer. Unable to leave m essage. Tahira Larsen 03/02/2022 2:20 PM Signed Call placed to patient to discuss PMH referral and off er telephonic/virtual visit, however, there was no answer. Message lef t for Pt/CG to call office to discuss further. Rich Rodriguez 03/09/2022 1:31 PM Signed Call placed to patient to discuss PMH referral and off er telephonic/virtual visit, however, there was no answer. Message lef t for Pt/CG to call office to discuss further. Tahira Orellanan Michael 03/13/2022 11:22 AM Signed Call placed to patient to discuss PMH referral and off er telephonic/virtual visit, however, there was no answer. Message lef t for Pt/CG to call office to discuss further. Third attempt. Letter Sent. Tahira Rodriguez Allergies As of Date: 01/30/2022 Noted Allergy Reactio n WELLBUTRIN SR (BUPROPION) 05/08/2008 1 - Mental Status Change Comments: made me hallucinate Date Reviewed: 12/13/2021 Reviewed by: Kaylyn Wallace Ma - Fully Assessed Reason for Visit: [id number] [Other] Initial Consult [665] Prescriptions as of 03/13/2022 - atorvastatin (LIPITOR) 10 mg tablet Take 1 tablet by mouth once daily. - citalopram (CELEXA) 20 mg tablet Take 1 tablet by mouth once daily. - vskpmtnzsuq-irnripops-ptlbjrrx (TRELEGY ELLIPT A) 100-62.5-25 mcg inhalation powder Inhale 1 Puff as instructed once daily. - gabapentin (NEURONTIN) 300 mg capsule Take 1 capsule by mouth twice daily for 90 days. - losartan (COZAAR) 50 mg tablet Take 1 tablet by mouth twice daily. - omeprazole (PRILOSEC) 40 mg capsule Take 1 capsule by mouth once daily. - promethazine (PHENERGAN) 6.25 mg/5 mL syrup Take 5-10 mL by mouth four times daily as needed for n ausea/vomiting (and cough). - HYDROcodone-acetaminophen (NORCO) 5-325 mg per table t Take 1 tablet by mouth every 12 [...] - Food Supplement, Lactose-Free (ENSURE ACTIVE HIGH MN OTEIN) liqd Take 237 mL by mouth once daily. - albuterol HFA (VENTOLIN HFA) 90 mcg/actuation inhale r Inhale 2 Puffs as instructed every 4 hours as needed. -active - Ciclopirox (PENLAC) 8 % solution Apply to affected area once daily. TO AFFECTED AREA. - ketoconazole (NIZORAL) 2 % cream Apply 1 application to affected area once daily. To rash on legs and feet for 2 weeks at least and continue for 1 week after rash re solves. - nabumetone (RELAFEN) 500 mg tablet Take 1 tablet by mouth twice daily. - diclofenac sodium (VOLTAREN) 1 % topical gel Apply 2 grams to affected area four times daily. - guaiFENesin (MUCINEX) 600 mg 12 hr tablet Take 2 tablets by mouth twice daily as needed for Cold /Allergy Symptoms. - COMPOUNDED PRESCRIPTION Overnight pulse oximetry-- J42 Chronic bronchitis, R09 .02hypoxemia - cholecalciferol (VITAMIN D3) 1,000 unit tab tablet Take 1 tablet by mouth once daily. - polyethylene glycol 3350 (MIRALAX, GLYCOLAX) 17 gram packet Take 1 Packet by mouth once daily. - thiamine (VITAMIN B1) 100 mg tablet Take 1 tablet by mouth three times daily. - albuterol (PROVENTIL) 2.5 mg /3 mL (0.083 %) nebuliz er solution Use 3 mL via nebulizer every 4 hours as needed for Whe ezing/Shortness of Breath. Use over 5-15minutes. - COMPOUNDED PRESCRIPTION Nebulizer for home use. Dx: chronic bronchitis Meds Comments as of 09/02/2018: 09/02/18 The medications are managed by this patie (more content not included)... [facility] DALIA DREW ([id number]) 1955 [facility] Date Time Provider Department 01/27/22 SELWYN MEJIAS [facility] During your visit today, we recorded the following inf ormation about you: Ami Martin RN 01/27/2022 10:01 AM Signed [facility] Skilled Nurse called in and reports they have been having trouble getting Pt to answer the misty ne, so she went out to do a visit today. She states she was going to do medication teaching with the patie nt, and she said she didn't need that because she wasn't taki ng her meds and threw them away. Alley states she hadn't thrown them away, but that the med b ox they had filled was still full. She reports Pt s ometimes takes her BP pills. Pt also refused to see half-way anymore. She states their next v isit will be to discharge the patient from their services. Pt also states she hasn't followed up with PCP. She said Pt said she would come in on Sunday if pratima campos calls her, but she doesn't want to see the WINE CONSULTANT she wants to see Dr Mikaela Mejias MD 01/27/2022 6:48 PM Signed See if can put in the Sunday open slots 1:20 for 40 m inutes Ami Martin RN 01/28/2022 11:02 AM Signed Called and left a voicemail for the Patient to call back and ask for a nurse to receive the providers message. RADHA Fitzgerald Ma 01/30/2022 1:22 PM Signed No answer on home phone, LM on cell Ami Martin RN 02/01/2022 8:32 AM Signed Pt called and is notified of providers message and ins tructions. Pt voices understanding. Pt called in after Sunday. Scheduled P t 02/06 at 800 am. RADHA Fitzgerald MD 02/01/2022 7:28 PM Signed Noted. Selwyn Mejias MD Allergies As of Date: 01/27/2022 Noted Allergy Reactio n WELLBUTRIN SR (BUPROPION) 05/08/2008 1 - Mental Status Change Comments: made me hallucinate Date Reviewed: 12/13/2021 Reviewed by: Kaylyn Wallace Ma - Fully Assessed Reason for Visit: Medication Problem [65] Patient Update [1234] Prescriptions as of 02/01/2022 - atorvastatin (LIPITOR) 10 mg tablet Take 1 tablet by mouth once daily. - citalopram (CELEXA) 20 mg tablet Take 1 tablet by mouth once daily. - gtrrwiedzgh-elavzqamv-yiwdlauy (TRELEGY ELLIPT A) 100-62.5-25 mcg inhalation powder Inhale 1 Puff as instructed once daily. - gabapentin (NEURONTIN) 300 mg capsule Take 1 capsule by mouth twice daily for 90 days. - losartan (COZAAR) 50 mg tablet Take 1 tablet by mouth twice daily. - omeprazole (PRILOSEC) 40 mg capsule Take 1 capsule by mouth once daily. - promethazine (PHENERGAN) 6.25 mg/5 mL syrup Take 5-10 mL by mouth four times daily as needed for n ausea/vomiting (and cough). - HYDROcodone-acetaminophen (NORCO) 5-325 mg per table t Take 1 tablet by mouth every 12 [...] - Food Supplement, Lactose-Free (ENSURE ACTIVE HIGH MN OTEIN) liqd Take 237 mL by mouth once daily. - albuterol HFA (VENTOLIN HFA) 90 mcg/actuation inhale r Inhale 2 Puffs as instructed every 4 hours as needed. -active - Ciclopirox (PENLAC) 8 % solution Apply to affected area once daily. TO AFFECTED AREA. - ketoconazole (NIZORAL) 2 % cream Apply 1 application to affected area once daily. To rash on legs and feet for 2 weeks at least and continue for 1 week after rash re solves. - nabumetone (RELAFEN) 500 mg tablet Take 1 tablet by mouth twice daily. - diclofenac sodium (VOLTAREN) 1 % topical gel Apply 2 grams to affected area four times daily. - guaiFENesin (MUCINEX) 600 mg 12 hr tablet Take 2 tablets by mouth twice daily as needed for Cold /Allergy Symptoms. - COMPOUNDED PRESCRIPTION Overnight pulse oximetry-- J42 Chronic bronchitis, R09 .02hypoxemia - cholecalciferol (VITAMIN D3) 1,000 unit tab tablet Take 1 tablet by mouth once daily. - polyethylene glycol 3350 (MIRALAX, GLYCOLAX) 17 gram packet Take 1 Packet by mouth once daily. - thiamine (VITAMIN B1) 100 mg tablet Take 1 tablet by mouth three times daily. - albuterol (PROVENTIL) 2.5 mg /3 mL (0.083 %) nebuliz er solution Use 3 mL via nebulizer every 4 hours as needed for Whe ezing/Shortness of Breath. Use over 5-15minutes. - COMPOUNDED PRESCRIPTION Nebulizer for home use. Dx: chronic bronchitis Meds Comments as of 09/02/2018: 09/02/18 The medications are managed by this patient b y: PATIENT Janell Awad Tiara Pharm-T Problem List As Of Date 01/27/2022 Noted Resolved COLLES' FRACTURE-CLOSED [S52.539A] 02/14/2005 09/29/19 06 RADIAL STYLOID TENOSYNOV [M65.4] 06/28/2005 09/28/2005 FX LATERAL MALLEOLUS-CLOSE [S82.63XA] 11/08/200509/17 Chron (more content not included)... [facility] DALIA DREW ([id number]) 1955 [facility] Time Provider Department 01/25/22 SELWYN MEJIAS INTMWS During your visit today, we recorded the following inf ormation about you: Aida Nam LPN 01/25/2022 12:21 PM Signed Deisy with [facility], nursing requesting the followin)verbal orders for half-way plan of care to see pt 1 time a week for 4 weeks. 2)pt was on hospice and revo ked orders and was admitted to [facility] for exacerbation of her COPD. D/C and they are requesting orders for pa lliative care. 3)requesting a copy of pt's current med list to be fax ed to [phone]. (Deisy states pt has medicatio ns all over her house and the need to know what she is to be taking) Aida Manzanares APRN.DUPLICATION SPECIALIST 01/27/2022 3:20 PM Signed 1-OK C 2. OK palliative care, [facility] are previously 11/2021. 3. Send med lis Kaylyn Wallace Ma 01/27/2022 3:29 PM Signed Called Deisy, she states that patient has declined all care and kicked them out of her home and states she is not going to take any of her medications Lacy Manzanares APRN.DUPLICATION SPECIALIST 02/07/2022 1:10 PM Signed noted Allergies As of Date: 01/25/2022 Noted Allergy Reactio n WELLBUTRIN SR (BUPROPION) 05/08/2008 1 - Mental Status Change Comments: made me hallucinate Date Reviewed: 12/13/2021 Reviewed by: Kaylyn Wallace Ma - Fully Assessed Reason for Visit: [facility] [Other] Cmt: Verbal order/med list/palliative c are order Primary Visit Diagnosis:COPD, severe (HCC) [J44.9] Order(s):CONSULT TO PALLIATIVE CARE [173 1532] Order #: [id number]: 1 FUTURE Prescriptions as of 02/07/2022 - atorvastatin (LIPITOR) 10 mg tablet Take 1 tablet by mouth once daily. - citalopram (CELEXA) 20 mg tablet Take 1 tablet by mouth once daily. - dmmpkdxpiyi-vhfeszqjv-svynekev (TRELEGY ELLIPT A) 100-62.5-25 mcg inhalation powder Inhale 1 Puff as instructed once daily. - gabapentin (NEURONTIN) 300 mg capsule Take 1 capsule by mouth twice daily for 90 days. - losartan (COZAAR) 50 mg tablet Take 1 tablet by mouth twice daily. - omeprazole (PRILOSEC) 40 mg capsule Take 1 capsule by mouth once daily. - promethazine (PHENERGAN) 6.25 mg/5 mL syrup Take 5-10 mL by mouth four times daily as needed for n ausea/vomiting (and cough). - HYDROcodone-acetaminophen (NORCO) 5-325 mg per table t Take 1 tablet by mouth every 12 [...] - Food Supplement, Lactose-Free (ENSURE ACTIVE HIGH MN OTEIN) liqd Take 237 mL by mouth once daily. - albuterol HFA (VENTOLIN HFA) 90 mcg/actuation inhale r Inhale 2 Puffs as instructed every 4 hours as needed. -active - Ciclopirox (PENLAC) 8 % solution Apply to affected area once daily. TO AFFECTED AREA. - ketoconazole (NIZORAL) 2 % cream Apply 1 application to affected area once daily. To rash on legs and feet for 2 weeks at least and continue for 1 week after rash re solves. - nabumetone (RELAFEN) 500 mg tablet Take 1 tablet by mouth twice daily. - diclofenac sodium (VOLTAREN) 1 % topical gel Apply 2 grams to affected area four times daily. - guaiFENesin (MUCINEX) 600 mg 12 hr tablet Take 2 tablets by mouth twice daily as needed for Cold /Allergy Symptoms. - COMPOUNDED PRESCRIPTION Overnight pulse oximetry-- J42 Chronic bronchitis, R09 .02hypoxemia - cholecalciferol (VITAMIN D3) 1,000 unit tab tablet Take 1 tablet by mouth once daily. - polyethylene glycol 3350 (MIRALAX, GLYCOLAX) 17 gram packet Take 1 Packet by mouth once daily. - thiamine (VITAMIN B1) 100 mg tablet Take 1 tablet by mouth three times daily. - albuterol (PROVENTIL) 2.5 mg /3 mL (0.083 %) nebuliz er solution Use 3 mL via nebulizer every 4 hours as needed for Whe ezing/Shortness of Breath. Use over 5-15minutes. - COMPOUNDED PRESCRIPTION Nebulizer for home use. Dx: chronic bronchitis Meds Comments as of 09/02/2018: 09/02/18 The medications are managed by this patient b y: PATIENT Janell Menjivar Pharm-T Problem List As Of Date 01/25/2022 Noted Resolved COLLES' FRACTURE-CLOSED [S52.539A] 02/14/2005 09/29/19 06 RADIAL STYLOID TENOSYNOV [M65.4] 06/28/2005 09/28/2005 FX LATERAL MALLEOLUS-CLOSE [S82.63XA] 11/08/200509/17 Chronic bronchitis (HCC) [J42] 12/17/2006 INSOMNIA, intermittent [G47.00] 12/17/2006 Tobacco use disorder [F17.200] 12/17/2006 Acute sinusitis, unspecified [J01.90] 02/06/200806/13 Reactive depression [F32.9] 02/06/2008 GENERALIZED ANXIETY DIS [F41.1] 02/06/2008 GLAUCOMA NOS [H40.9] 02/06/2008 ALLERGIC RHINITIS NOS [J30.9] 05/08/2008 FAMILY HX GI MALIGNANCY [Z80.0] (more content not included)... CNPN on 01-23-2022 CNPN Telephone (INTMWS) [facility] DALIA DREW ([id number]) 1955 [facility] Date Time Provider Department 01/23/22 SELWYN MEJIAS INTMWS During your visit today, we recorded the following inf ormation about you: Gabby Herring RN 01/23/2022 11:00 AM Signed Guillermina with [facility] OT calling to state pat ient has one-time eval completed only. Patirnt does not require any further OT needs at this time. SpO2 was 96-98% room air during visit today. BP was 138/94 but this was after activity. Patient without any complaints or symptoms. RADHA Conroy, ELECTRIC POWER LINE REPAIRER.DUPLICATION SPECIALIST 01/23/2022 3:32 PM Signed noted Allergies As of Date: 01/23/2022 Noted Allergy Reactio n WELLBUTRIN SR (BUPROPION) 05/08/2008 1 - Mental Status Change Comments: made me hallucinate Date Reviewed: 12/13/2021 Reviewed by: Kaylyn Wallace Ma - Fully Assessed Reason for Visit: OT Plan of Care Update [Other] Prescriptions as of 01/23/2022 - atorvastatin (LIPITOR) 10 mg tablet Take 1 tablet by mouth once daily. - citalopram (CELEXA) 20 mg tablet Take 1 tablet by mouth once daily. - vumrytamjvi-pwqwqdacn-gamzousc (TRELEGY ELLIPT A) 100-62.5-25 mcg inhalation powder Inhale 1 Puff as instructed once daily. - gabapentin (NEURONTIN) 300 mg capsule Take 1 capsule by mouth twice daily for 90 days. - losartan (COZAAR) 50 mg tablet Take 1 tablet by mouth twice daily. - omeprazole (PRILOSEC) 40 mg capsule Take 1 capsule by mouth once daily. - promethazine (PHENERGAN) 6.25 mg/5 mL syrup Take 5-10 mL by mouth four times daily as needed for n ausea/vomiting (and cough). - HYDROcodone-acetaminophen (NORCO) 5-325 mg per table t Take 1 tablet by mouth every 12 [...] - Food Supplement, Lactose-Free (ENSURE ACTIVE HIGH MN OTEIN) liqd Take 237 mL by mouth once daily. - albuterol HFA (VENTOLIN HFA) 90 mcg/actuation inhale r Inhale 2 Puffs as instructed every 4 hours as needed. -active - Ciclopirox (PENLAC) 8 % solution Apply to affected area once daily. TO AFFECTED AREA. - ketoconazole (NIZORAL) 2 % cream Apply 1 application to affected area once daily. To rash on legs and feet for 2 weeks at least and continue for 1 week after rash re solves. - nabumetone (RELAFEN) 500 mg tablet Take 1 tablet by mouth twice daily. - diclofenac sodium (VOLTAREN) 1 % topical gel Apply 2 grams to affected area four times daily. - guaiFENesin (MUCINEX) 600 mg 12 hr tablet Take 2 tablets by mouth twice daily as needed for Cold /Allergy Symptoms. - COMPOUNDED PRESCRIPTION Overnight pulse oximetry-- J42 Chronic bronchitis, R09 .02hypoxemia - cholecalciferol (VITAMIN D3) 1,000 unit tab tablet Take 1 tablet by mouth once daily. - polyethylene glycol 3350 (MIRALAX, GLYCOLAX) 17 gram packet Take 1 Packet by mouth once daily. - thiamine (VITAMIN B1) 100 mg tablet Take 1 tablet by mouth three times daily. - albuterol (PROVENTIL) 2.5 mg /3 mL (0.083 %) nebuliz er solution Use 3 mL via nebulizer every 4 hours as needed for Whe ezing/Shortness of Breath. Use over 5-15minutes. - COMPOUNDED PRESCRIPTION Nebulizer for home use. Dx: chronic bronchitis Meds Comments as of 09/02/2018: 09/02/18 The medications are managed by this patient b y: PATIENT Janell Awad Tiara Pharm-T Problem List As Of Date 01/23/2022 Noted Resolved COLLES' FRACTURE-CLOSED [S52.539A] 02/14/2005 09/29/19 06 RADIAL STYLOID TENOSYNOV [M65.4] 06/28/2005 09/28/2005 FX LATERAL MALLEOLUS-CLOSE [S82.63XA] 11/08/200509/17 Chronic bronchitis (HCC) [J42] 12/17/2006 INSOMNIA, intermittent [G47.00] 12/17/2006 Tobacco use disorder [F17.200] 12/17/2006 Acute sinusitis, unspecified [J01.90] 02/06/200806/13 Reactive depression [F32.9] 02/06/2008 GENERALIZED ANXIETY DIS [F41.1] 02/06/2008 GLAUCOMA NOS [H40.9] 02/06/2008 ALLERGIC RHINITIS NOS [J30.9] 05/08/2008 FAMILY HX GI MALIGNANCY [Z80.0] 08/25/2008 DYSPHAGIA NEC [R13.19] 08/25/2008 UNSP ABNORMAL MAMMOGRAM [R92.8] 08/29/2008 DUODENITIS W/O HEMORRHAGE [K29.80] 09/14/2008 ACUTE GASTRITIS W/O HEMORRHAGE [K29.00] 09/14/2008 Unspecified Disorder of Skin and Subcutaneous T*2008 Helicobacter Pylori 12/08/2008 Benign Neoplasm of Skin of Trunk, except Scrotu*2008 Fracture of right distal radius [S52.501A] 07/24/2012 11/24/2014 Ankle fracture [S82.899A] 11/24/2014 Essential hypertension [I10] 02/27/2017 Gastroesophageal reflux disease without esophag*2017 Compression fracture of T5 vertebra (HCC) [S22.*2018 Trauma [T14.90XA] 08/27/2018 Fall from ladder [W11.XXXA] 08/27/2018 Closed fracture of multiple ribs of right (more conten t not included)... CNPN on 01-20-2022 CNPN Telephone (INTMWS) [facility] DALIA DREW ([id number]) 1955 [facility] Time Provider Department 01/20/22 SELYWN MEJIAS INTMWS During your visit today, we recorded the following inf ormation about you: Brittany Magana LPN 01/20/2022 5:00 PM Signed Michelle calling with PT POC. Will be seeing patient for strength and gain training, safe transfers and pain management. 1 time a for 1 week 2 times for 2 weeks 1 time for 1 week. Lacy Manaznares APRN.DUPLICATION SPECIALIST 01/23/2022 3:36 PM Signed Noted, agree Allergies As of Date: 01/20/2022 Noted Allergy Reactio n WELLBUTRIN SR (BUPROPION) 05/08/2008 1 - Mental Status Change Comments: made me hallucinate Date Reviewed: 12/13/2021 Reviewed by: Kaylyn Wallace Ma - Fully Assessed Reason for Visit: plan of care [Other] Prescriptions as of 02/07/2022 - atorvastatin (LIPITOR) 10 mg tablet Take 1 tablet by mouth once daily. - citalopram (CELEXA) 20 mg tablet Take 1 tablet by mouth once daily. - gfufnhgdziv-adzupjvmp-oefczlag (TRELEGY ELLIPT A) 100-62.5-25 mcg inhalation powder Inhale 1 Puff as instructed once daily. - gabapentin (NEURONTIN) 300 mg capsule Take 1 capsule by mouth twice daily for 90 days. - losartan (COZAAR) 50 mg tablet Take 1 tablet by mouth twice daily. - omeprazole (PRILOSEC) 40 mg capsule Take 1 capsule by mouth once daily. - promethazine (PHENERGAN) 6.25 mg/5 mL syrup Take 5-10 mL by mouth four times daily as needed for n ausea/vomiting (and cough). - HYDROcodone-acetaminophen (NORCO) 5-325 mg per table t Take 1 tablet by mouth every 12 [...] - Food Supplement, Lactose-Free (ENSURE ACTIVE HIGH MN OTEIN) liqd Take 237 mL by mouth once daily. - albuterol HFA (VENTOLIN HFA) 90 mcg/actuation inhale r Inhale 2 Puffs as instructed every 4 hours as needed. -active - Ciclopirox (PENLAC) 8 % solution Apply to affected area once daily. TO AFFECTED AREA. - ketoconazole (NIZORAL) 2 % cream Apply 1 application to affected area once daily. To rash on legs and feet for 2 weeks at least and continue for 1 week after rash re solves. - nabumetone (RELAFEN) 500 mg tablet Take 1 tablet by mouth twice daily. - diclofenac sodium (VOLTAREN) 1 % topical gel Apply 2 grams to affected area four times daily. - guaiFENesin (MUCINEX) 600 mg 12 hr tablet Take 2 tablets by mouth twice daily as needed for Cold /Allergy Symptoms. - COMPOUNDED PRESCRIPTION Overnight pulse oximetry-- J42 Chronic bronchitis, R09 .02hypoxemia - cholecalciferol (VITAMIN D3) 1,000 unit tab tablet Take 1 tablet by mouth once daily. - polyethylene glycol 3350 (MIRALAX, GLYCOLAX) 17 gram packet Take 1 Packet by mouth once daily. - thiamine (VITAMIN B1) 100 mg tablet Take 1 tablet by mouth three times daily. - albuterol (PROVENTIL) 2.5 mg /3 mL (0.083 %) nebuliz er solution Use 3 mL via nebulizer every 4 hours as needed for Whe ezing/Shortness of Breath. Use over 5-15minutes. - COMPOUNDED PRESCRIPTION Nebulizer for home use. Dx: chronic bronchitis Meds Comments as of 09/02/2018: 09/02/18 The medications are managed by this patient b y: PATIENT Janell Awad Tiara Pharm-T Problem List As Of Date 01/20/2022 Noted Resolved COLLES' FRACTURE-CLOSED [S52.539A] 02/14/2005 09/29/19 06 RADIAL STYLOID TENOSYNOV [M65.4] 06/28/2005 09/28/2005 FX LATERAL MALLEOLUS-CLOSE [S82.63XA] 11/08/200509/17 Chronic bronchitis (HCC) [J42] 12/17/2006 INSOMNIA, intermittent [G47.00] 12/17/2006 Tobacco use disorder [F17.200] 12/17/2006 Acute sinusitis, unspecified [J01.90] 02/06/200806/13 Reactive depression [F32.9] 02/06/2008 GENERALIZED ANXIETY DIS [F41.1] 02/06/2008 GLAUCOMA NOS [H40.9] 02/06/2008 ALLERGIC RHINITIS NOS [J30.9] 05/08/2008 FAMILY HX GI MALIGNANCY [Z80.0] 08/25/2008 DYSPHAGIA NEC [R13.19] 08/25/2008 UNSP ABNORMAL MAMMOGRAM [R92.8] 08/29/2008 DUODENITIS W/O HEMORRHAGE [K29.80] 09/14/2008 ACUTE GASTRITIS W/O HEMORRHAGE [K29.00] 09/14/2008 Unspecified Disorder of Skin and Subcutaneous T*2008 Helicobacter Pylori 12/08/2008 Benign Neoplasm of Skin of Trunk, except Scrotu*2008 Fracture of right distal radius [S52.501A] 07/24/2012 11/24/2014 Ankle fracture [S82.899A] 11/24/2014 Essential hypertension [I10] 02/27/2017 Gastroesophageal reflux disease without esophag*2017 Compression fracture of T5 vertebra (HCC) [S22.*2018 Trauma [T14.90XA] 08/27/2018 Fall from ladder [W11.XXXA] 08/27/2018 Closed fracture of multiple ribs of right side *2018 Wheezing [R06.2] 08/27/2018 Hypoxia [R09.02] 08/27/2018 Back pain [M54.9] 09/2018 Inc (more content not included)... LUIZN on 01-19-2022 LUIZN Telephone (FAMPWS) [facility] DALIA DREW ([id number]) 1955 [facility] Date Time Provider Department 01/19/22 LACY MANZANARES During your visit today, we recorded the following inf ormation about you: Alyx Hickey LPN 01/19/2022 11:27 AM Signed Nallely from [facility] called, pt will be discharging from [facility] today. Pt/family has revoked hospice care, hospital has ordered nsg, PT AND OT Dx toxic encephalopathy AND UTI. Plan is to see pt binu barba. Will provider agree to follow? Alyx Manzanares APRN.DUPLICATION SPECIALIST 01/19/2022 1:12 PM Signed Noted, OK. Refer to hospice at later date if willing. Racheal Lopez LPN 01/19/2022 1:47 PM Signed No answer. Left providers message for Nallely from [facility] on voice mail and ask to call office and ask to speak to a nurse with any qu estions or concerns. Allergies As of Date: 01/19/2022 Noted Allergy Reactio n WELLBUTRIN SR (BUPROPION) 05/08/2008 1 - Mental Status Change Comments: made me hallucinate Date Reviewed: 12/13/2021 Reviewed by: Kaylyn Wallace Ma - Fully Assessed Reason for Visit: Home Health Orders [Other] Prescriptions as of 01/19/2022 - atorvastatin (LIPITOR) 10 mg tablet Take 1 tablet by mouth once daily. - citalopram (CELEXA) 20 mg tablet Take 1 tablet by mouth once daily. - xrmyvihkanj-fxzjqnbzl-jjpveujh (TRELEGY ELLIPT A) 100-62.5-25 mcg inhalation powder Inhale 1 Puff as instructed once daily. - gabapentin (NEURONTIN) 300 mg capsule Take 1 capsule by mouth twice daily for 90 days. - losartan (COZAAR) 50 mg tablet Take 1 tablet by mouth twice daily. - omeprazole (PRILOSEC) 40 mg capsule Take 1 capsule by mouth once daily. - promethazine (PHENERGAN) 6.25 mg/5 mL syrup Take 5-10 mL by mouth four times daily as needed for n ausea/vomiting (and cough). - HYDROcodone-acetaminophen (NORCO) 5-325 mg per table t Take 1 tablet by mouth every 12 [...] - Food Supplement, Lactose-Free (ENSURE ACTIVE HIGH MN OTEIN) liqd Take 237 mL by mouth once daily. - albuterol HFA (VENTOLIN HFA) 90 mcg/actuation inhale r Inhale 2 Puffs as instructed every 4 hours as needed. -active - Ciclopirox (PENLAC) 8 % solution Apply to affected area once daily. TO AFFECTED AREA. - ketoconazole (NIZORAL) 2 % cream Apply 1 application to affected area once daily. To rash on legs and feet for 2 weeks at least and continue for 1 week after rash re solves. - nabumetone (RELAFEN) 500 mg tablet Take 1 tablet by mouth twice daily. - diclofenac sodium (VOLTAREN) 1 % topical gel Apply 2 grams to affected area four times daily. - guaiFENesin (MUCINEX) 600 mg 12 hr tablet Take 2 tablets by mouth twice daily as needed for Cold /Allergy Symptoms. - COMPOUNDED PRESCRIPTION Overnight pulse oximetry-- J42 Chronic bronchitis, R09 .02hypoxemia - cholecalciferol (VITAMIN D3) 1,000 unit tab tablet Take 1 tablet by mouth once daily. - polyethylene glycol 3350 (MIRALAX, GLYCOLAX) 17 gram packet Take 1 Packet by mouth once daily. - thiamine (VITAMIN B1) 100 mg tablet Take 1 tablet by mouth three times daily. - albuterol (PROVENTIL) 2.5 mg /3 mL (0.083 %) nebuliz er solution Use 3 mL via nebulizer every 4 hours as needed for Whe ezing/Shortness of Breath. Use over 5-15minutes. - COMPOUNDED PRESCRIPTION Nebulizer for home use. Dx: chronic bronchitis Meds Comments as of 09/02/2018: 09/02/18 The medications are managed by this patient b y: PATIENT Janell Awad Tiara Pharm-T Problem List As Of Date 01/19/2022 Noted Resolved COLLES' FRACTURE-CLOSED [S52.539A] 02/14/2005 09/29/19 06 RADIAL STYLOID TENOSYNOV [M65.4] 06/28/2005 09/28/2005 FX LATERAL MALLEOLUS-CLOSE [S82.63XA] 11/08/200509/17 Chronic bronchitis (HCC) [J42] 12/17/2006 INSOMNIA, intermittent [G47.00] 12/17/2006 Tobacco use disorder [F17.200] 12/17/2006 Acute sinusitis, unspecified [J01.90] 02/06/200806/13 Reactive depression [F32.9] 02/06/2008 GENERALIZED ANXIETY DIS [F41.1] 02/06/2008 GLAUCOMA NOS [H40.9] 02/06/2008 ALLERGIC RHINITIS NOS [J30.9] 05/08/2008 FAMILY HX GI MALIGNANCY [Z80.0] 08/25/2008 DYSPHAGIA NEC [R13.19] 08/25/2008 UNSP ABNORMAL MAMMOGRAM [R92.8] 08/29/2008 DUODENITIS W/O HEMORRHAGE [K29.80] 09/14/2008 ACUTE GASTRITIS W/O HEMORRHAGE [K29.00] 09/14/2008 Unspecified Disorder of Skin and Subcutaneous T*2008 Helicobacter Pylori 12/08/2008 Benign Neoplasm of Skin of Trunk, except Scrotu*2008 Fracture of right distal radius [S52.501A] 07/24/2012 11/24/2014 Ankle fracture [S82.899A] 11/24/2014 Essential hypertension [I10] 02/27/2017 Gastroesophageal reflux disease witho (more content no t included)... CNPN on 12-15-2021 CNPN Telephone (INTMWS) [facility] DALIA DREW ([id number]) 1955 [facility] Date Time Provider Department 12/15/21 SELWYN MEJIAS INTMWS During your visit today, we recorded the following inf ormation about you: Cristine Escalante RN 12/15/2021 2:15 PM Signed Pulmonary Medicine- Dr. Kirill Bentley office- repo rts they may schedule another appt for lung biopsy with patient. Reports the 1st ayse e they scheduled with patient, she didn't follow protocol and they had to re schedule, the 2nd time they cancelled due to patient's elevated BP. Will need doctor to sign notes from last ov on 12-13-21 and fax to their office at . Biopsy would have to occur within 3 0 days of H AND P visit. Once they review the notes will call patient to schedule. Lacy Manzanares APRN.DUPLICATION SPECIALIST 12/20/2021 7:31 AM Signed Has this been done? If not get paperwork so I can revi ew and send Kaylyn Wallace Ma 12/26/2021 11:00 AM Signed The are requesting office note dated 12/13 stati ng she is cleared for biopsy. Office note needs completed and signed, nothing noted about biospy at this time Selwyn Mejias MD 01/05/2022 2:38 PM Signed Print completed note to fax as requested. I did not do a preop consult since the request f or my note came after she was seen. I did state she may proceed with planned procedure. Kaylyn Wallace Ma 01/06/2022 1:28 PM Signed Faxed Allergies As of Date: 12/15/2021 Noted Allergy Reactio n WELLBUTRIN SR (BUPROPION) 05/08/2008 1 - Mental Status Change Comments: made me hallucinate Date Reviewed: 12/13/2021 Reviewed by: Kaylyn Wallace Ma - Fully Assessed Reason for Visit: Biopsy of lung [Other] Prescriptions as of 01/06/2022 - atorvastatin (LIPITOR) 10 mg tablet Take 1 tablet by mouth once daily. - citalopram (CELEXA) 20 mg tablet Take 1 tablet by mouth once daily. - suhjxtyxoxb-bakgdubga-orfjazpq (TRELEGY ELLIPT A) 100-62.5-25 mcg inhalation powder Inhale 1 Puff as instructed once daily. - gabapentin (NEURONTIN) 300 mg capsule Take 1 capsule by mouth twice daily for 90 days. - losartan (COZAAR) 50 mg tablet Take 1 tablet by mouth twice daily. - omeprazole (PRILOSEC) 40 mg capsule Take 1 capsule by mouth once daily. - promethazine (PHENERGAN) 6.25 mg/5 mL syrup Take 5-10 mL by mouth four times daily as needed for n ausea/vomiting (and cough). - HYDROcodone-acetaminophen (NORCO) 5-325 mg per table t Take 1 tablet by mouth every 12 [...] - Food Supplement, Lactose-Free (ENSURE ACTIVE HIGH MN OTEIN) liqd Take 237 mL by mouth once daily. - albuterol HFA (VENTOLIN HFA) 90 mcg/actuation inhale r Inhale 2 Puffs as instructed every 4 hours as needed. -active - Ciclopirox (PENLAC) 8 % solution Apply to affected area once daily. TO AFFECTED AREA. - ketoconazole (NIZORAL) 2 % cream Apply 1 application to affected area once daily. To rash on legs and feet for 2 weeks at least and continue for 1 week after rash re solves. - nabumetone (RELAFEN) 500 mg tablet Take 1 tablet by mouth twice daily. - diclofenac sodium (VOLTAREN) 1 % topical gel Apply 2 grams to affected area four times daily. - guaiFENesin (MUCINEX) 600 mg 12 hr tablet Take 2 tablets by mouth twice daily as needed for Cold /Allergy Symptoms. - COMPOUNDED PRESCRIPTION Overnight pulse oximetry-- J42 Chronic bronchitis, R09 .02hypoxemia - cholecalciferol (VITAMIN D3) 1,000 unit tab tablet Take 1 tablet by mouth once daily. - polyethylene glycol 3350 (MIRALAX, GLYCOLAX) 17 gram packet Take 1 Packet by mouth once daily. - thiamine (VITAMIN B1) 100 mg tablet Take 1 tablet by mouth three times daily. - albuterol (PROVENTIL) 2.5 mg /3 mL (0.083 %) nebuliz er solution Use 3 mL via nebulizer every 4 hours as needed for Whe ezing/Shortness of Breath. Use over 5-15minutes. - COMPOUNDED PRESCRIPTION Nebulizer for home use. Dx: chronic bronchitis Meds Comments as of 09/02/2018: 09/02/18 The medications are managed by this patient b y: PATIENT Janell Menjivar Pharm-T Problem List As Of Date 12/15/2021 Noted Resolved COLLES' FRACTURE-CLOSED [S52.539A] 02/14/2005 09/29/19 06 RADIAL STYLOID TENOSYNOV [M65.4] 06/28/2005 09/28/2005 FX LATERAL MALLEOLUS-CLOSE [S82.63XA] 11/08/200509/17 Chronic bronchitis (HCC) [J42] 12/17/2006 INSOMNIA, intermittent [G47.00] 12/17/2006 Tobacco use disorder [F17.200] 12/17/2006 Acute sinusitis, unspecified [J01.90] 02/06/200806/13 Reactive depression [F32.9] 02/06/2008 GENERALIZED ANXIETY DIS [F41.1] 02/06/2008 GLAUCOMA NOS [H40.9] 02/06/2008 ALLERGIC RHINITIS NOS [J30.9] 05/08/2008 FAMI (more content not included)... CNOV on 12-13-2021 CNOV Office Visit (INTMWS) [facility] DALIA DREW ([id number]) 1955 [facility] Date Time Provider Department 12/13/21 9:40 AM SELWYN MEJIAS INTMWS During your visit today, we recorded the following inf ormation about you: Pulse Blood pressure Weight 97/minute 122/88 48.5 kg Selwyn Mejias MD 01/05/2022 2:37 PM Signed This note was created using isango!riter. Subjective Dalia Drew is a 66 year old female. Patient presents with: F/U 6 months SUBJECTIVE: Dalia Drew is a 66 year old year old lady here today for 6 month follow up appointment for review of medical conditions. Does love to eat. Breathing issues contributing to difficulty keeping we ight up. Has nurse from palliative care. To help with SOB. 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 Plans for lung biopsy discussed. Noted BP was too high when went for biopsy appointment so lung biopsy was cancelled that day. Needs rescheduled. BPs have been fine since then. Stable on current meds without a dverse effects. Requested med for pain. Chronic back issues. Plans to call a help line to get patches to help with quitting smoking. PAST MEDICAL HISTORY Diagnosis Date Anxiety Back pain 09/2018 T5 compression fracture in fall. Chronic obstructive pulmonary disease (COPD) (HCC) Dysphagia, unspecified(787.20) Emphysema lung (HCC) Hypertension INSOMNIA, intermittent 12/17/2006 stress related Unspecified chronic bronchitis (HCC) 12/17/2006 Current Outpatient Medications Medication Sig atorvastatin (LIPITOR) 10 mg tablet Take 1 tablet by m outh once daily. amLODIPine (NORVASC) 2.5 mg tablet Take 1 tablet by mo uth once daily. citalopram (CELEXA) 20 mg tablet Take 1 tablet by mout h once daily. losartan (COZAAR) 50 mg tablet Take 1 tablet by mouth twice daily. omeprazole (PRILOSEC) 40 mg capsule Take 1 capsule by mouth once daily. ibuprofen (MOTRIN) 800 mg tablet Take 1 tablet by mout h every 8 hours as needed for pain (back). Take with food gabapentin (NEURONTIN) 300 mg capsule Take 1 cap chapito by mouth twice daily for 90 days. eufsqrtwjmv-pdqqjvroc-muwwkena (TRELEGY ELLIPTA) 100-6 2.5-25 mcg inhalation powder Inhale 1 Puff as instructed once daily. aspirin 81 mg chewable tablet Take 1 tablet by mouth o nce daily. Food Supplement, Lactose-Free (ENSURE AC TIVE HIGH PROTEIN) liqd Take 237 mL by mouth once daily. albuterol HFA (VENTOLIN HFA) 90 mcg/actuation inhaler Inhale 2 Puffs as instructed every 4 hours as needed. -active HYDROcodone-acetaminophen (NORCO) 5-325 mg per tablet Take 1 tablet by mouth every 12 hours as needed for pain (Severe pain) for up to 7 days. Ciclopirox (PENLAC) 8 % solution Apply to affected are a once daily. TO AFFECTED AREA. (Patient not taking: Reported on 021 ) ketoconazole (NIZORAL) 2 % cream Apply 1 application t o affected area once daily. To rash on legs and feet for 2 weeks at least a nd continue for 1 week after rash resolves. (Patient not taking: Reported on 12/13/2020 ) promethazine (PHENERGAN) 6.25 mg/5 mL syrup Take 5-10 mL by mouth four times daily as needed for Nausea/Vomiting (and cough). (Patient not taking: Reported on 12/13/2020 ) nabumetone (RELAFEN) 500 mg tablet Take 1 tablet by mo uth twice daily. diclofenac sodium (VOLTAREN) 1 % topical gel Apply 2 g sarai to affected area four times daily. (Patient not taking: Reported on 11/25) PREDNISONE ORAL Take by mouth. See Taper instructions. guaiFENesin (MUCINEX) 600 mg 12 hr tablet Take 2 tablets by mouth twice daily as needed for Cold/Allergy S ymptoms. (Patient not taking: Reported on 12/13/2020 ) COMPOUNDED PRESCRIPTION Overnight pulse oximetry-- J42 Chronic bronchitis, R09.02hypoxemia cholecalciferol (VITAMIN D3) 1,000 unit tab tablet Take 1 tablet by mouth once daily. polyethylene glycol 3350 (MIRALAX, GLYCOLAX) 17 gram p acket Take 1 Packet by mouth once daily. (Patient not taking: Reported on 11/25 ) thiamine (VITAMIN B1) 100 mg tablet Take 1 table t by mouth three times daily. albuterol (PROVENTIL) 2.5 mg /3 mL (0.083 %) nebulizer solution Use 3 mL via nebulizer every 4 hours as needed for Wheezing/Shortne ss of Breath. Use over 5-15minutes. COMPOUNDED PRESCRIPTION Nebulizer for home use. Dx: ch ronic bronchitis No current facility-administered medications for this visit. Review of Systems Objective Last 5 Encounter Wt Readings: Date: Wt: 12/13/2021 48.5 kg (107 lb) 08/19/2021 51.7 kg (114 lb) 12/13/2020 47.2 kg (104 lb) 11/22/2020 46.7 kg (103 lb) 11/11/2020 48.1 kg (106 lb) No waist measurement recorded Estimated body mass index is 18.66 kg/m? as calculated from the following: Height as of 08/19/21: 161.3 cm (5' 3.5 ). Weight as of this encounter: 48.5 kg (107 lb). Last 5 Encounter BP Readings: Date: BP: 12/13/2021 142/90 08/19/2021 132/88 12/13/2020 124/82 11/22 (more content not included)... [facility] DALIA RDEW ([id number]) 1955 [facility] Date Time Provider Department 12/05/21 SELWYN MEJIAS INTALO During your visit today, we recorded the following inf ormation about you: Sugey Amezcuakallie LA 12/05/2021 10:34 AM Signed Donya Nurse from [facility] calling was unable to do lung biopsy, patient blood pressure is 226/134. Patient said she has not be en taking her medications due to no money to get rx. Nurse is having Case management to get involved with the patient also. Nurse is also calling Dr Cristine hernandez to see if wanting one time dose of medication given to the patient. Aware patient has appt on 12/13 with PCP. Selwyn Mejias MD 12/14/2021 6:01 PM Signed Patients BP fine at appointment Taking her meds Should be fine for biopsy Racheal Lopez LPN 12/15/2021 2:32 PM Signed Nurse from [facility] was given providers message and verbali zed understanding. States patient has had to reschedule 3 times now and n ot sure if they will reschedule or not. Allergies As of Date: 12/05/2021 Noted Allergy Reactio n WELLBUTRIN SR (BUPROPION) 05/08/2008 1 - Mental Status Change Comments: made me hallucinate Date Reviewed: 08/19/2021 Reviewed by: Racheal Lopez LPN - Fully Assessed Reason for Visit: Patient Update [1234] Cmt: unable to do lung biopsy Prescriptions as of 12/15/2021 - atorvastatin (LIPITOR) 10 mg tablet Take 1 tablet by mouth once daily. - citalopram (CELEXA) 20 mg tablet Take 1 tablet by mouth once daily. - imatowdwlmi-uhhwwrkfe-ugrgfrhh (TRELEGY ELLIPT A) 100-62.5-25 mcg inhalation powder Inhale 1 Puff as instructed once daily. - gabapentin (NEURONTIN) 300 mg capsule Take 1 capsule by mouth twice daily for 90 days. - losartan (COZAAR) 50 mg tablet Take 1 tablet by mouth twice daily. - omeprazole (PRILOSEC) 40 mg capsule Take 1 capsule by mouth once daily. - promethazine (PHENERGAN) 6.25 mg/5 mL syrup Take 5-10 mL by mouth four times daily as needed for n ausea/vomiting (and cough). - codeine-guaiFENesin (GUAIFENESIN AC) 10-100 mg/5 mL syrup Take 5-10 mL by mouth four times daily as needed for u p to 7 days. - HYDROcodone-acetaminophen (NORCO) 5-325 mg per table t Take 1 tablet by mouth every 12 [...] - Food Supplement, Lactose-Free (ENSURE ACTIVE HIGH MN OTEIN) liqd Take 237 mL by mouth once daily. - albuterol HFA (VENTOLIN HFA) 90 mcg/actuation inhale r Inhale 2 Puffs as instructed every 4 hours as needed. -active - Ciclopirox (PENLAC) 8 % solution Apply to affected area once daily. TO AFFECTED AREA. - ketoconazole (NIZORAL) 2 % cream Apply 1 application to affected area once daily. To rash on legs and feet for 2 weeks at least and continue for 1 week after rash re solves. - nabumetone (RELAFEN) 500 mg tablet Take 1 tablet by mouth twice daily. - diclofenac sodium (VOLTAREN) 1 % topical gel Apply 2 grams to affected area four times daily. - guaiFENesin (MUCINEX) 600 mg 12 hr tablet Take 2 tablets by mouth twice daily as needed for Cold /Allergy Symptoms. - COMPOUNDED PRESCRIPTION Overnight pulse oximetry-- J42 Chronic bronchitis, R09 .02hypoxemia - cholecalciferol (VITAMIN D3) 1,000 unit tab tablet Take 1 tablet by mouth once daily. - polyethylene glycol 3350 (MIRALAX, GLYCOLAX) 17 gram packet Take 1 Packet by mouth once daily. - thiamine (VITAMIN B1) 100 mg tablet Take 1 tablet by mouth three times daily. - albuterol (PROVENTIL) 2.5 mg /3 mL (0.083 %) nebuliz er solution Use 3 mL via nebulizer every 4 hours as needed for Whe ezing/Shortness of Breath. Use over 5-15minutes. - COMPOUNDED PRESCRIPTION Nebulizer for home use. Dx: chronic bronchitis Meds Comments as of 09/02/2018: 09/02/18 The medications are managed by this patient b y: PATIENT Janell Awad Tiara Pharm-T Problem List As Of Date 12/05/2021 Noted Resolved COLLES' FRACTURE-CLOSED [S52.539A] 02/14/2005 09/29/19 06 RADIAL STYLOID TENOSYNOV [M65.4] 06/28/2005 09/28/2005 FX LATERAL MALLEOLUS-CLOSE [S82.63XA] 11/08/200509/17 Chronic bronchitis (HCC) [J42] 12/17/2006 INSOMNIA, intermittent [G47.00] 12/17/2006 Tobacco use disorder [F17.200] 12/17/2006 Acute sinusitis, unspecified [J01.90] 02/06/200806/13 Reactive depression [F32.9] 02/06/2008 GENERALIZED ANXIETY DIS [F41.1] 02/06/2008 GLAUCOMA NOS [H40.9] 02/06/2008 ALLERGIC RHINITIS NOS [J30.9] 05/08/2008 FAMILY HX GI MALIGNANCY [Z80.0] 08/25/2008 DYSPHAGIA NEC [R13.19] 08/25/2008 UNSP ABNORMAL MAMMOGRAM [R92.8] 08/29/2008 DUODENITIS W/O HEMORRHAGE [K29.80] 09/14/2008 ACUTE GASTRITIS W/O HEMORRHAGE [K29.00] 09/14/2008 U (more content not included)... CNPN on 11-25-2021 CNPN Telephone (INTMWS) [facility] DALIA Ramirez S ([id number]) 1955 [place] Date Time Provider Department 11/25/21 SELWYN MEJIAS During your visit today, we recorded the following inf ormation about you: Sugey Amezcuakallie LA 11/25/2021 9:48 AM Signed Virgen from [facility] [employer] Head Assistant calling asking if an y paper work patient needs to take to Dr Bentley-Network Contractor? Did not see anyt erin in computer. Patient has appt scheduled today with Pulmonary toro kwon to update her HANDP for biopsy lung mass. Hoping patient does keep that appt. 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 Aware patient had cancelled her appt mid October with Lacy Manzanares WINE CONSULTANT . Sugey Amezcuakallie LA 11/25/2021 4:16 PM Signed Virgen calling back patient did go to appt with Rashad Irene NP Pulmonary today was 15 minutes late to the appt. Patient is scheduled to have biopsy done 12/05/2021. Virgen was able to speak to patient gr and daughter Mikala Carrera, she tries to help with getting her to appts and go ove r her after visit information. Virgen said patient is very frail an d cough is not good sounding. Virgen is asking if PCP would be alright with a palliat judson Care referral for patient COPD? Can leave a message for Virgen on her voi cemail, she can always get it from hat renovator if PCP does not want t o do it. Virgen is faxing copy of POA [employer] care to the office also. She had giv en me grand daughter Mikala phone number is [phone]. She thinks serjio ent is having memory issues and may not show for her appt with PCP, she did not think grand daughter knew of the appt. Selwyn Mejias MD 11/25/2021 8:25 PM Signed I can file consult order for palliative care for COPD but would be ideal if made it into appointment with me.. Can see if needs help with remembering a ppointments or transportation. She has missed several appointments the past year. Seen last November and this July and missed other appointments since last saw me October. Ami Martin RN 11/29/2021 11:24 AM Signed Delmy [facility] CM called and is notified of providers message and instructions. She voices understanding and was given Pts n ext appointment time of 12/13/21 at 940 am. She reports she will tell Pts granddaughter to see if she can help get Pt to this appointment. RADHA Fitzgerald MD 11/29/2021 12:46 PM Signed Noted. Selwyn Mejias MD Allergies As of Date: 11/25/2021 Noted Allergy Reactio n WELLBUTRIN SR (BUPROPION) 05/08/2008 1 - Mental Status Change Comments: made me hallucinate Date Reviewed: 08/19/2021 Reviewed by: Racheal Lopez LPN - Fully Assessed Reason for Visit: Patient Update [1234] Patient Question [[id number]] Prescriptions as of 11/29/2021 - atorvastatin (LIPITOR) [...] by mouth twice daily for 90 days. - kruudzpzowr-mdxlcdwhy-fsswgrcu (TRELEGY ELLIPT A) 100-62.5-25 mcg inhalation powder Inhale 1 Puff as instructed once daily. - aspirin 81 mg chewable tablet Take 1 tablet by mouth once daily. - Food Supplement, Lactose-Free (ENSURE ACTIVE HIGH MN OTEIN) liqd Take 237 mL by mouth once daily. - albuterol HFA (VENTOLIN HFA) 90 mcg/actuation inhale r Inhale 2 Puffs as instructed every 4 hours as needed. -active - HYDROcodone-acetaminophen (NORCO) 5-325 mg per table t Take 1 tablet by mouth every 12 [...] and continue for 1 week after rash re solves. - promethazine (PHENERGAN) 6.25 mg/5 mL syrup Take 5-10 mL by mouth four times daily as needed for N ausea/Vomiting (and cough). - nabumetone (RELAFEN) 500 mg tablet Take 1 tablet by mouth twice daily. - diclofenac sodium (VOLTAREN) 1 % topical gel Apply 2 grams to affected area four times daily. - PREDNISONE ORAL Take by mouth. See Taper instructions. - guaiFENesin (MUCINEX) 600 mg 12 hr tablet Take 2 tablets by mouth twice daily as needed for Cold /Allergy Symptoms. - COMPOUNDED PRESCRIPTION Overnight pulse oximetry-- J42 Chronic bronchitis, R09 .02hypoxemia - cholecalciferol (VITAMIN D3) 1,000 unit tab tablet Take 1 tablet by mouth once daily. - polyethylene (more content not included)... [facility] DALIA Ramirez ([id number]) 1955 [facility] Time Provider Department 11/07/21 SELWYN MEJIAS INTMWS During your visit today, we recorded the following inf ormation about you: Cristine Escalante RN 11/07/2021 2:22 PM Signed Kaylyn - [facility] - phoned to see if patient has seen p cp recently- they were hoping they could get an H AND P, to do lung biopsy to [place], for lung mass. Reports patient was scheduled for this 2 weeks ago, bu t no showed. The 2nd time [facility] scheduled patient, patient was instructed to be NPO, then drank a big coffee in the morning, so they had to cancel. Re-sched uled biopsy for tomorrow, and patient was scheduled with Pulmonary taylor ventura for an H AND P, but patient no showed for that appt today. N ow they are going to cancel the biopsy for tomorrow (since last ov in pcp office 08-19-21) unt il patient sees Pulmonary. Rajani Karriteetee BESSIE 11/08/2021 4:03 PM Signed Called [facility] radiology dept. They will be doing pt s biopsy. They need an update HANDP. Pt missed several HANDP appts with Dr. Bentley the pulmo nologist with [facility]. Called pt to review the HANDP should be completed with Dr. Bentley. Pt will contact his office to arrange. Selwyn Mejias MD 11/10/2021 3:59 PM Signed Noted. Selwyn Mejias MD Allergies As of Date: 11/07/2021 Noted Allergy Reactio n WELLBUTRIN SR (BUPROPION) 05/08/2008 1 - Mental [...] by mouth twice daily for 90 days. - gjevdcesfqq-htpxlbbze-vyujvpyv (TRELEGY ELLIPT A) 100-62.5-25 mcg inhalation powder Inhale 1 Puff as instructed once daily. - aspirin 81 mg chewable tablet Take 1 tablet by mouth once daily. - Food Supplement, Lactose-Free (ENSURE ACTIVE HIGH MN OTEIN) liqd Take 237 mL by mouth once daily. - albuterol HFA (VENTOLIN HFA) 90 mcg/actuation inhale r Inhale 2 Puffs as instructed every 4 hours as needed. -active - HYDROcodone-acetaminophen (NORCO) 5-325 mg per table t Take 1 tablet by mouth every 12 [...] and continue for 1 week after rash re solves. - promethazine (PHENERGAN) 6.25 mg/5 mL syrup Take 5-10 mL by mouth four times daily as needed for N ausea/Vomiting (and cough). - nabumetone (RELAFEN) 500 mg tablet Take 1 tablet by mouth twice daily. - diclofenac sodium (VOLTAREN) 1 % topical gel Apply 2 grams to affected area four times daily. - PREDNISONE ORAL Take by mouth. See Taper instructions. - guaiFENesin (MUCINEX) 600 mg 12 hr tablet Take 2 tablets by mouth twice daily as needed for Cold /Allergy Symptoms. - COMPOUNDED PRESCRIPTION Overnight pulse oximetry-- J42 Chronic bronchitis, R09 .02hypoxemia - cholecalciferol (VITAMIN D3) 1,000 unit tab tablet Take 1 tablet by mouth once daily. - polyethylene glycol 3350 (MIRALAX, GLYCOLAX) 17 gram packet Take 1 Packet by mouth once daily. - thiamine (VITAMIN B1) 100 mg tablet Take 1 tablet by mouth three times daily. - albuterol (PROVENTIL) 2.5 mg /3 mL (0.083 %) nebuliz er solution Use 3 mL via nebulizer every 4 hours as needed for Whe ezing/Shortness of Breath. Use over 5-15minutes. - COMPOUNDED PRESCRIPTION Nebulizer for home use. Dx: chronic bronchitis Meds Comments as of 09/02/2018: 09/02/18 The medications are managed by this patient b y: PATIENT Janell Menjivar Pharm-T Problem List As Of Date 11/07/2021 Noted Resolved COLLES' FRACTURE-CLOSED [S52.539A] 02/14/2005 09/29/19 06 RADIAL STYLOID TENOSYNOV [M65.4] 06/28/2005 09/28/2005 FX LATERAL MALLEOLUS-CLOSE [S82.63XA] 11/08/200509/17 Chronic bronchitis (HCC) [J42] 12/17/2006 INSOMNIA, intermittent [G47.00] 12/17/2006 Tobacco use disorder [F17.200] 12/17/2006 Acute sinusitis, unspecified [J01.90] 02/06/200806/13 Reactive depression [F32.9] 02/06/2008 GENERALIZED ANXIETY DIS [F41.1] 02/06/2008 GLAUCOMA NOS [H40.9] 02/06/2008 ALLERGIC RHINITIS NOS [J30.9] 05/08/2008 FAMILY HX GI MALIGNANCY [Z80.0] 08/25/2008 DY (more content not included)... CNPN on 09-01-2021 CNPN Telephone (INTMWS) [facility] DALIA DREW ([id number]) 1955 [facility] Date Time Provider Department 09/01/21 LACY MANZANARES INTMWS During your visit today, we recorded the following inf ormation about you: Lacy Manzanares APRN.DUPLICATION SPECIALIST 09/01/2021 4:49 PM Signed Please let he know recent labwork was in acceptable range overall. Vitamin B12 is elevated, if taking supplemental may want to cut ba ck on her dose. Component Latest Ref Rng AND Units 08/31/2021 WBC 3.70 - 11.00 k/uL 5.81 RBC [...] Lymph 1.00 - 4.00 k/uL 1.25 [place]% % 13.3 Abs [place] <0.87 k/uL 0.77 Eosin% % 3.1 Abs [...] >=60 mL/min/1.73m? 100 Total Cholesterol, Nonfasting <200 mg/dL 159 Triglycerides, Nonfasting <150 mg/dL 51 HDL Cholesterol, Nonfasting >39 mg/dL 66 LDL Cholesterol, Nonfasting <100 mg/dL 83 Non HDL Cholesterol, Nonfasting <130 mg/dL 93 VLDL Cholesterol, Nonfasting <30 mg/dL 10 Total Chol/HDL Ratio, Nonfasting <5.10 mg/dL 2.41 LDL/HDL Ratio, Nonfasting <2.54 mg/dL 1.26 Vitamin B12 232-1,245 pg/mL >2,000 (H) Magnesium 1.7 - 2.3 mg/dL 1.9 TSH 0.270 - 4.200 mIU/L 1.210 Racheal Lopez LPN 09/02/2021 9:14 AM Signed No answer. No voice mailbox. Lacy Manzanares APRN.CNS 09/02/2021 4:28 PM Signed Okay to send letter with information. Lacy Manzanares APRN.CNS 09/02/2021 4:28 PM Signed letter printed Kaylyn Wallace Ma 09/06/2021 9:50 AM Signed Mailed Allergies As of Date: 09/01/2021 Noted Allergy Reactio n WELLBUTRIN SR (BUPROPION) 05/08/2008 1 - Mental [...] by mouth twice daily for 90 days. - rpzehrdvejl-dvxhcmdjx-phsyfalh (TRELEGY ELLIPT A) 100-62.5-25 mcg inhalation powder Inhale 1 Puff as instructed once daily. - aspirin 81 mg chewable tablet Take 1 tablet by mouth once daily. - Food Supplement, Lactose-Free (ENSURE ACTIVE HIGH MN OTEIN) liqd Take 237 mL by mouth once daily. - albuterol HFA (VENTOLIN HFA) 90 mcg/actuation inhale r Inhale 2 Puffs as instructed every 4 hours as needed. -active - HYDROcodone-acetaminophen (NORCO) 5-325 mg per table t Take 1 tablet by mouth every 12 [...] and continue for 1 week after rash re solves. - promethazine (PHENERGAN) 6.25 mg/5 mL syrup Take 5-10 mL by mouth four times daily as needed for N ausea/Vomiting (and cough). - nabumetone (RELAFEN) 500 mg tablet Take 1 tablet by mouth twice daily. - diclofenac sodium (VOLTAREN) 1 % topical gel Apply 2 grams to affected area four times daily. - PREDNISONE ORAL Take by mouth. See Taper instructions. - guaiFENesin (MUCINEX) 600 mg 12 hr tablet Take 2 tablets by mouth twice daily as needed for Cold /Allergy Symptoms. - COMPOUNDED PRESCRIPTION Overnight pulse oximetry-- J42 Chronic bronchitis, R09 .02hypoxemia - cholecalciferol (VITAMIN D3) 1,000 unit tab tablet Take 1 tablet by mouth once daily. - polyethylene glycol 3350 (MIRALAX, GLYCOLAX) 17 gram packet Take 1 Packet by mouth once daily. - thiamine (VITAMIN B1) 100 mg t (more content not inc luded)... CBC W Auto Differential panel (Bld) on 08-31-2021 Basophils (Bld) [#/Vol] 0.04 10*3/uL Normal <0.[address] [facility] Comment on above: Order Comment: Specimen Type : BLOOD SPECIMENOrdering Facility: [facility] Address: [address] [address] Performed By: #### [id number] # ###[facility] LABIA [id number] [address] STATES OF [facility] Basophils/100 WBC (Bld) 0.7 % Normal [facility] Comment on above: Order Comment: Specimen Type : BLOOD SPECIMENOrdering Facility: [facility] Address: [address] [address] Performed By: #### [id number] # ###[facility] LABCLIA [id number] [place] [address] [place] Differential cell count method Nom (Bld) Auto Normal [facility] Comment on above: Order Comment: Specimen Type : BLOOD SPECIMENOrdering Facility: [facility] Address: [address] [place] [address] Performed By: #### [id number] # ###[facility] LABCLIA [id number] [place] [address] [place] Eosinophils (Bld) [#/Vol] 0.18 10*3/uL Normal <0.46 [facility] Comment on above: Order Comment: Specimen Type : BLOOD SPECIMENOrdering Facility: [facility] Address: [address] [place] [address] Performed By: #### [id number] # ###[facility] LABIA [id number] [place] [address] [place] Eosinophils/100 WBC (Bld) 3.1 % Normal [facility] Comment on above: Order Comment: Specimen Type : BLOOD SPECIMENOrdering Facility: [facility] Address: [address] [place], [place] [id number] Performed By: #### [id number] # ###[facility] LABIA [id number] [place] [address] [place] Erythrocyte distribution width 13.2 % Normal 11.5-15.0 [facility] (RBC) [Ratio] Comment on above: Order Comment: Specimen Type : BLOOD SPECIMENOrdering Facility: [facility] Address: [address] [place], [place] [id number] Performed By: #### [id number] # ###[facility] LABIA [id number] [place] [address] [place] Hematocrit (Bld) [Volume fraction] 39.4 % Normal 36.0-4 6.0 [facility] Comment on above: Order Comment: Specimen Type : BLOOD SPECIMENOrdering Facility: [facility] Address: [address] [place] [address] Performed By: #### 16371-7 # ###[facility] LABIA [id number] [address] [place] Hemoglobin (Bld) [Mass/Vol] 12.9 g/dL Normal 11.5-15.5 [facility] Comment on above: Order Comment: Specimen Type : BLOOD SPECIMENOrdering Facility: [facility] Address: [address] [place] [address] Performed By: #### 14739-4 # ###[facility] LABIA [id number] [place] [address] [place] IMMATURE GRAN % 0.3 % Normal [facility] Comment on above: Order Comment: Specimen Type : BLOOD SPECIMENOrdering Facility: [facility] Address: [address] [place] [address] Performed By: #### 37213-7 # ###[facility]IA [id number] [place] [address] [place] IMMATURE GRAN ABS <0.03 Normal <0.10 [facility] Comment on above: Order Comment: Specimen Type : BLOOD SPECIMENOrdering Facility: [facility] Address: [address] [place], [place] [address] Performed By: #### 55963-7 # ###[facility]IA [id number] [place] [address] [place] Lymphocytes (Bld) [#/Vol] 1.25 10*3/uL Normal 1.00-4.00 [facility] Comment on above: Order Comment: Specimen Type : BLOOD SPECIMENOrdering Facility: [facility] Address: [address] [place] [address] Performed By: #### 68123-7 # ###[facility] [id number] [place] [address] [place] Lymphocytes/100 WBC (Bld) 21.5 % Normal [facility] Comment on above: Order Comment: Specimen Type : BLOOD SPECIMENOrdering Facility: [facility] Address: [address] [place] [address] Performed By: #### 16365-1 # ###[facility] LABCLIA [id number] [place] [address] [place] MCH (RBC) [Entitic mass] 30.4 pg Normal 26.0-34.0 [facility] Comment on above: Order Comment: Specimen Type : BLOOD SPECIMENOrdering Facility: [facility] Address: [address] [place], [place] [address] Performed By: #### 10491-8 # ###[facility] LABIA [id number] [place] [address] [place] MCHC (RBC) [Mass/Vol] 32.7 g/dL Normal 30.5-36.[address] [facility] Comment on above: Order Comment: Specimen Type : BLOOD SPECIMENOrdering Facility: [facility] Address: [address] [place], [place] [address] Performed By: #### 09093-5 # ###[facility]IA [id number] [place] [address] [place] MCV (RBC) [Entitic vol] 92.9 fL Normal 80.0-100.[address] [facility] Comment on above: Order Comment: Specimen Type : BLOOD SPECIMENOrdering Facility: [facility] Address: [address] [place], [place] [address] Performed By: #### 18216-5 # ###[facility]IA [id number] [place] [address] [place] Monocytes (Bld) [#/Vol] 0.77 10*3/uL Normal <0.[address] [facility] Comment on above: Order Comment: Specimen Type : BLOOD SPECIMENOrdering Facility: [facility] Address: [address] [place], [place] [address] Performed By: #### 18220-5 # ###[facility] LABCLIA [id number] [place] [address] [place] Monocytes/100 WBC (Bld) 13.3 % Normal [facility] Comment on above: Order Comment: Specimen Type : BLOOD SPECIMENOrdering Facility: [facility] Address: [address] [place], [place] [address] Performed By: #### 08739-0 # ###[facility] LABCLIA [id number] [place] [address] [place] Neutrophils (Bld) [#/Vol] 3.55 10*3/uL Normal 1.45-7.50 [facility] Comment on above: Order Comment: Specimen Type : BLOOD SPECIMENOrdering Facility: [facility] Address: [address] [place], [place] [address] Performed By: #### 79185-2 # ###[facility] LABCLIA [id number] [place] [address] [place] Neutrophils/100 WBC (Bld) 61.1 % Normal [facility] Comment on above: Order Comment: Specimen Type : BLOOD SPECIMENOrdering Facility: [facility] Address: [address] [place] [address] Performed By: #### 30574-2 # ###[facility] LABCLIA [id number] [place] [address] [place] Nucleated RBC (Bld) [#/Vol] 10*3/uL Normal <0.01 [facility] Comment on above: Order Comment: Specimen Type : BLOOD SPECIMENOrdering Facility: [facility] Address: [address] [place], [place] [address] Performed By: #### 47347-9 # ###[facility] LABCLIA [id number] [place] [address] [place] Nucleated RBC/100 WBC (Bld) [Ratio] 0.0 /100 WBC Normal [facility] Comment on above: Order Comment: Specimen Type : BLOOD SPECIMENOrdering Facility: [facility] Address: [address] [place] [address] Performed By: #### 35712-6 # ###[facility] LABIA [id number] [place] [address] [place] Platelet mean volume (Bld) 10.1 fL Normal 9.0-12.7 C [facility] [Entitic vol] Comment on above: Order Comment: Specimen Type : BLOOD SPECIMENOrdering Facility: [facility] Address: [address] [place] [address] Performed By: #### 79161-5 # ###[facility] LABCLIA [id number] [place] [address] [place] Platelets (Bld) [#/Vol] 390 10*3/uL Normal 150-[address] [facility] Comment on above: Order Comment: Specimen Type : BLOOD SPECIMENOrdering Facility: [facility] Address: [address] [place], [place] [address] Performed By: #### 64595-9 # ###[facility]IA [id number] [place] [address] [place] RBC (Bld) [#/Vol] 4.24 10*6/uL Normal 3.90-5.20 [facility] Comment on above: Order Comment: Specimen Type : BLOOD SPECIMENOrdering Facility: [facility] Address: [address] [place], [place] [address] Performed By: #### 93522-4 # ###[facility] LABCLIA [id number] [place] [address] [place] WBC (Bld) [#/Vol] 5.81 10*3/uL Normal 3.70-11.00 [facility] Comment on above: Order Comment: Specimen Type : BLOOD SPECIMENOrdering Facility: [facility] Address: [address] [place], [place] [address] Performed By: #### 72992-5 # ###[facility] LABCLIA [id number] [address] [address] [place] Comprehensive metabolic 2000 panel on 0 08-31-2021 Albumin [Mass/Vol] 4.3 g/dL Normal 3.9-4.9 [facility] Comment on above: Order Comment: Specimen Type : BLOOD SPECIMENOrdering Facility: [facility] Address: [address] [place], [place] [address] Performed By: #### 29584-8, 99720-3, LIPNF, 3016-3 ####[facility] LABCLIA 3 [id number] [place] [address] [place] ALP [Catalytic activity/Vol] 61 U/L Normal 34-123 [facility] Comment on above: Order Comment: Specimen Type : BLOOD SPECIMENOrdering Facility: [facility] Address: [address] [place], [place] [address] Performed By: #### 75253-6, 75591-0, LIPNF, 3016-3 ####[facility] LABCLIA 3 [id number] [place] [id number] [place] ALT [Catalytic activity/Vol] 12 U/L Normal 7-38 [facility] Comment on above: Order Comment: Specimen Type : BLOOD SPECIMENOrdering Facility: [facility] Address: [address] [place], [place] [address] Performed By: #### 38817-7, 02227-0, LIPNF, 3016-3 ####[facility] LABCLIA [id number] [address] [place] Anion gap [Moles/Vol] 11 mmol/L Normal 9-[address] [facility] Comment on above: Order Comment: Specimen Type : BLOOD SPECIMENOrdering Facility: [facility] Address: [address] [place] [address] Performed By: #### 34707-2, 67897-0, LIPNF, 6-3 ####[facility] LABCLIA [id number] [address] [place] AST [Catalytic activity/Vol] 17 U/L Normal 13-35 [facility] Comment on above: Order Comment: Specimen Type : BLOOD SPECIMENOrdering Facility: [facility] Address: [address] [place], [place] [address] Performed By: #### 42025-9, 00346-7, LIPNF, 6-3 ####[facility] LABCLIA 3 [id number] [place] [id number] [place] Bilirubin [Mass/Vol] 0.7 mg/dL Normal 0.2-1.3 [facility] Comment on above: Order Comment: Specimen Type : BLOOD SPECIMENOrdering Facility: [facility] Address: [address] [place], [place] [address] Performed By: #### 12368-0, 16537-1, LIPNF, 6-3 ####[facility] LABCLIA [id number] [address] [place] Calcium [Mass/Vol] 9.0 mg/dL Normal 8.5-10.2 [facility] Comment on above: Order Comment: Specimen Type : BLOOD SPECIMENOrdering Facility: [facility] Address: [address] [place], [place] [address] Performed By: #### 50056-1, 45666-5, LIPNF, 6-3 ####[facility] LABCLIA [id number] [address] [place] Chloride [Moles/Vol] 96 mmol/L Low 97-105 [facility] Comment on above: Order Comment: Specimen Type : BLOOD SPECIMENOrdering Facility: [facility] Address: [address] [place], [place] [address] Performed By: #### 44858-2, 05795-8, LIPFABIANO, 6-3 ####[facility] LABCLIA [id number] [address] [place] CO2 [Moles/Vol] 26 mmol/L Normal 22-30 [facility] Comment on above: Order Comment: Specimen Type : BLOOD SPECIMENOrdering Facility: [facility] Address: [address] [place], [place] [address] Performed By: #### 54095-7, 85051-2, LIPFABIANO, 6-3 ####[facility] LABCLIA 3 [id number] [place] [address] [place] Creatinine [Mass/Vol] 0.54 mg/dL Low 0.58-0.[address] [facility] Comment on above: Order Comment: Specimen Type : BLOOD SPECIMENOrdering Facility: [facility] Address: [address] [place] [address] Performed By: #### 41956-5, 52545-0, LIPFABIANO, 6-3 ####[facility] LABCLIA [id number] [address] [place] ESTIMATED GLOMERULAR 100 mL/min/1.73m??? Normal >=60 [facility] Comment on above: Order Comment: Specimen Type : BLOOD SPECIMENOrdering Facility: [facility] Address: [address] [place], [place] [address] Result Comment: Estimated Gl omerular Filtration Rate (eGFR) is calculated using the 2020 CK D-EPI creatinine equation. This equation utilizes serum crea tinine, sex, and age as parameters. The creatinine assay has traceab le calibration to isotope dilution-mass spectrometry. Refer to KDIGO guidelines for clinical interpretation. In patients with unstable renal function, e.g. those with acute kidney inju ry, the eGFR may not accurately reflect actual GFR. Performed By: #### 03838-5, 74771-7, JANET, 6-3 ####[facility] LABCLIA [id number] [address] [place] Glucose [Mass/Vol] 97 mg/dL Normal 74-99 [facility] Comment on above: Order Comment: Specimen Type : BLOOD SPECIMENOrdering Facility: [facility] Address: [address] [place] [phone] Result Comment: The [place] [employer] (ADA) provides guidance for cutoff values for fasting glucose and random glucose. The ADA defines fasting as no caloric intake for at least 8 hours. Fas ting plasma glucose results between 100 to 125 mg/dL indicate increased risk for diabetes (prediabetes). Fasting plasma glucose resul ts greater than or equal to 126 mg/dL meet the criteria for diagnosis of diabetes. In the absence of unequivocal hyperglycemia, results should be confirmed by repeat testing. In a patient with classic s ymptoms of hyperglycemia or hyperglycemic crisis, random plasma glucose results greater than or equal to 200 mg/dL meet the criteria for diagnosis of diabetes. Reference: Standards of [facility] Care in Diabetes 2016, [place] [employer] Association. Diabetes Care. 2016.39(Suppl 1). Performed By: #### 35242-7, 80611-6, JANET, 3015- ####[facility] LABCLIA [id number] [address] [place] Potassium [Moles/Vol] 4.0 mmol/L Normal 3.7-5.[address] [facility] Comment on above: Order Comment: Specimen Type : BLOOD SPECIMENOrdering Facility: [facility] Address: [address] [place] [address] Performed By: #### 21695-3, 58490-0, JANET, 3015-3 ####[facility] LABCLIA [id number] [address] [place] Protein [Mass/Vol] 6.9 g/dL Normal 6.3-8.0 [facility] Comment on above: Order Comment: Specimen Type : BLOOD SPECIMENOrdering Facility: [facility] Address: [address] [place] [address] Performed By: #### 01188-0, 09680-6, LIPNF, 6-3 ####[facility] LABCLIA [id number] [address] [place] [facility] Sodium [Moles/Vol] 133 mmol/L Low 136-144 [facility] Comment on above: Order Comment: Specimen Type : BLOOD SPECIMENOrdering Facility: [facility] Address: [address] [place], [place] [phone] Performed By: #### 52057-1, 44914-3, LIPNF, 6-3 ####[facility] LABCLIA [id number] [address] [place] [facility] Urea nitrogen [Mass/Vol] 16 mg/dL Normal 7-21 [facility] Comment on above: Order Comment: Specimen Type : BLOOD SPECIMENOrdering Facility: [facility] Address: [address] [place] [address] Performed By: #### 62152-9, 29772-9, LIPNF, 6-3 ####[facility] LABCLIA [id number] [address] [place] [facility] LIPID PANEL, NONFASTING on 08-31-2021 Cholesterol [Mass/Vol] 159 mg/dL Normal <200 [facility] Comment on above: Order Comment: Specimen Type : BLOOD SPECIMENOrdering Facility: [facility] Address: [address] [place] [phone] Result Comment: <200 mg/dL, Desirable 200-239 mg/dL, Borderline hi gh >239 mg/dL, High Performed By: #### 55103-2, 94138-0, LIPNF, 6-3 ####[facility] LABCLIA [id number] [address] [place] [facility] HDL CHOLESTEROL, NF 66 mg/dL Normal >39 [facility] Comment on above: Order Comment: Specimen Type : BLOOD SPECIMENOrdering Facility: [facility] Address: [address] [place] [address] Result Comment: 40-59 mg/dL, Acceptable >59 mg/dL, High: Negative ri sk factor for coronary heart disease <40 mg/dL, Low: Positive ris k factor for coronary heart disease Performed By: #### 60117-1, 75551-4, JANET, 6-3 ####[facility] LABCLIA [id number] LDL CHOLESTEROL, NF 83 mg/dL Normal <100 [facility] Comment on above: Order Comment: Specimen Type : BLOOD SPECIMENOrdering Facility: [facility] Address: [address] [place] [address] Result Comment: <100 mg/dL, Optimal 100-129 mg/dL, Near optimal/ above optimal 130-159 mg/dL, Borderline hi gh 160-189 mg/dL, High >189 mg/dL, Very high Secondary prevention optimal LDL Cholesterol levels are recommended to be < 70 mg/dL Performed By: #### 69968-4, 83009-9, LIPFABIANO, 6-3 ####[facility] LABCLIA [id number] LDL/HDL RATIO, NF 1.26 mg/dL Normal <2.54 [facility] Comment on above: Order Comment: Specimen Type : BLOOD SPECIMENOrdering Facility: [facility] Address: [address] [place] [address] Result Comment: Reference: 1. National Cholesterol Educ ation Program ATP III Guideline At-A-Glance Quick Desk Reference: National Heart, Lung, and Blood [place]. National Institutes of Health. 2001: NIH Publication No. 01-3305. 2. An International Atherosc lerosis Society position paper: global recommendations for the management of dyslipidemia: executive summary, Atherosclerosis. 2014: 232(2):410-413. Performed By: #### 79006-7, 07905-1, LIPNF, 3016-3 ####[facility] LABCLIA [id number] NON HDL CHOL, NF 93 mg/dL Normal <130 [facility] Comment on above: Order Comment: Specimen Type : BLOOD SPECIMENOrdering Facility: [facility] Address: [address] [place] [address] Result Comment: <130 mg/dL, Optimal 130-159 mg/dL, Near optimal/ above optimal 160-189 mg/dL, Borderline hi gh 190-219 mg/dL, High >219 mg/dL, Very high Secondary prevention optimal non HDL Cholesterol levels are recommended to be <100 mg/dL Performed By: #### 75159-5, 63436-5, LIPNF, 3016-3 ####[facility] LABCLIA [id number] T CHOL/HDL RATIO NF 2.41 mg/dL Normal <5.10 [facility] Comment on above: Order Comment: Specimen Type : BLOOD SPECIMENOrdering Facility: [facility] Address: [address] [place] [address] Performed By: #### 85892-9, 89662-3, LIPNF, 3016-3 ####[facility] LABCLIA [id number] TRIGLYCERIDES, NF 51 mg/dL Normal <150 [facility] Comment on above: Order Comment: Specimen Type : BLOOD SPECIMENOrdering Facility: [facility] Address: [address] [place], [place] [phone] Result Comment: <150 mg/dL, Normal 150-199 mg/dL, Borderline hi gh 200-499 mg/dL, High >499 mg/dL, Very high Performed By: #### 68602-3, 94303-5, LIPNF, 3016-3 ####[facility] LABCLIA [id number] [address] [place] [facility] VLDL CHOLESTEROL, NF 10 mg/dL Normal <30 [facility] Comment on above: Order Comment: Specimen Type : BLOOD SPECIMENOrdering Facility: [facility] Address: [address] [place] [address] Performed By: #### 07565-8, 01874-8, LIPNF, 3016-3 ####[facility] LABCLIA [id number] [facility] Magnesium SerPl-mCnc on 08-31-2021 Magnesium [Mass/Vol] 1.9 mg/dL Normal 1.7-2.3 [facility] Comment on above: Order Comment: Specimen Type : BLOOD SPECIMENOrdering Facility: [facility] Address: [address] [place] [address] Performed By: #### 45271-7, 98713-4, LIPNF, 3016-3 ####[facility] LABCLIA [address] [id number] [address] [facility] TSH SerPl-aCnc on 08-31-2021 TSH Qn 1.210 m[IU]/L Normal 0.270-4.200 [facility] Comment on above: Order Comment: Specimen Type : BLOOD SPECIMENOrdering Facility: [facility] Address: [address] [place], [place] [phone] Performed By: #### 94391-4, 96931-2, LIPNF, 3016-3 ####[facility] LABCLIA 3 [id number] [place] [id number] [place] [facility] VITAMIN B12 BLOOD on 08-31-2021 Cobalamin (Vitamin B12) [Mass/Vol] pg/mL High 232-1, 245 [facility] Comment on above: Order Comment: Specimen Type : BLOOD SPECIMENOrdering Facility: [facility] Address: [address] [place], [place] [phone] Performed By: #### B12 ####C [facility] LABCLIA [id number] [place] [address] [place] CNPN on 08-23-2021 CNPN Telephone (ISAI) [facility] DALIA DREW ([id number]) 1955 [address] [place] Date Time Provider Department 08/23/21 JORGE FLEMING During your visit today, we recorded the following inf ormation about you: Jogre Fleming, [employer] 08/23/2021 9:59 AM Signed called and left message f or patient in regards to consult request to help with financial constraints and help around the house. Sw requested patient call back to discuss needs. Jorge Fleming, [employer] 08/24/2021 11:44 AM Signed left 2nd message for patient to return to [facility] s financial/home care assistance needs. Allergies As of Date: 08/23/2021 Noted Allergy Reactio n WELLBUTRIN SR (BUPROPION) 05/08/2008 1 - Mental [...] by mouth twice daily for 90 days. - xdqhbalwgao-gptsfsssf-gghvexcq (TRELEGY ELLIPT A) 100-62.5-25 mcg inhalation powder Inhale 1 Puff as instructed once daily. - aspirin 81 mg chewable tablet Take 1 tablet by mouth once daily. - Food Supplement, Lactose-Free (ENSURE ACTIVE HIGH MN OTEIN) liqd Take 237 mL by mouth once daily. - albuterol HFA (VENTOLIN HFA) 90 mcg/actuation inhale r Inhale 2 Puffs as instructed every 4 hours as needed. -active - HYDROcodone-acetaminophen (NORCO) 5-325 mg per table t Take 1 tablet by mouth every 12 [...] and continue for 1 week after rash re solves. - promethazine (PHENERGAN) 6.25 mg/5 mL syrup Take 5-10 mL by mouth four times daily as needed for N ausea/Vomiting (and cough). - nabumetone (RELAFEN) 500 mg tablet Take 1 tablet by mouth twice daily. - diclofenac sodium (VOLTAREN) 1 % topical gel Apply 2 grams to affected area four times daily. - PREDNISONE ORAL Take by mouth. See Taper instructions. - guaiFENesin (MUCINEX) 600 mg 12 hr tablet Take 2 tablets by mouth twice daily as needed for Cold /Allergy Symptoms. - COMPOUNDED PRESCRIPTION Overnight pulse oximetry-- J42 Chronic bronchitis, R09 .02hypoxemia - cholecalciferol (VITAMIN D3) 1,000 unit tab tablet Take 1 tablet by mouth once daily. - polyethylene glycol 3350 (MIRALAX, GLYCOLAX) 17 gram packet Take 1 Packet by mouth once daily. - thiamine (VITAMIN B1) 100 mg tablet Take 1 tablet by mouth three times daily. - albuterol (PROVENTIL) 2.5 mg /3 mL (0.083 %) nebuliz er solution Use 3 mL via nebulizer every 4 hours as needed for Whe ezing/Shortness of Breath. Use over 5-15minutes. - COMPOUNDED PRESCRIPTION Nebulizer for home use. Dx: chronic bronchitis Meds Comments as of 09/02/2018: 09/02/18 The medications are managed by this patient b y: PATIENT Janell Awad [facility] Problem List As Of Date 08/23/2021 Noted Resolved COLLES' FRACTURE-CLOSED [S52.539A] 02/14/2005 09/29/19 06 RADIAL STYLOID TENOSYNOV [M65.4] 06/28/2005 09/28/2005 FX LATERAL MALLEOLUS-CLOSE [S82.63XA] 11/08/200509/17 Chronic bronchitis (HCC) [J42] 12/17/2006 INSOMNIA, intermittent [G47.00] 12/17/2006 Tobacco use disorder [F17.200] 12/17/2006 Acute sinusitis, unspecified [J01.90] 02/06/200806/13 Reactive depression [F32.9] 02/06/2008 GENERALIZED ANXIETY DIS [F41.1] 02/06/2008 GLAUCOMA NOS [H40.9] 02/06/2008 ALLERGIC RHINITIS NOS [J30.9] 05/08/2008 FAMILY HX GI MALIGNANCY [Z80.0] 08/25/2008 DYSPHAGIA NEC [R13.19] 08/25/2008 UNSP ABNORMAL MAMMOGRAM [R92.8] 08/29/2008 DUODENITIS W/O HEMORRHAGE [K29.80] 09/14/2008 ACUTE GASTRITIS W/O HEMORRHAGE [K29.00] 09/14/2008 Unspecified Disorder of Skin and Subcutaneous T*2008 Helicobacter Pylori 12/08/2008 Benign Neoplasm of Skin of Trunk, except Scrotu*2008 Fracture of right distal radius [S52.501A] 07/24/2012 11/24/2014 Ankle fracture [S82.899A] 11/24/2014 Essential hypertension [I10] 02/27/2017 Gastroesophageal reflux disease without esophag*2017 Compression fracture of T5 vertebra (HCC) [S22.*2018 Trauma [T14.90XA] 08/27/2018 Fall from ladder [W11.XXXA] 08/27/2018 Closed fra (more content not included)... CNOV on 08-19-2021 CNOV Office Visit (INTMWS) [facility] [place] [facility] DALIA DREW ([id number]) 1955 [facility] Date Time Provider Department 08/19/21 9:40 AM LACY MANZANARES INTCristineWS During your visit today, we recorded the following inf ormation about you: Pulse Respiration Blood pressure Weight 93/minute 16/minute 132/88 51.7 kg Height 1.613 m Lacy Manzanares APRN.DUPLICATION SPECIALIST 08/19/2021 10:45 AM Signed SUBJECTIVE: LUNG CANCER SCREENING Never done SHINGRIX VACCINE(1 of 2) Never done MAMMOGRAM due on 07/01/2014 BONE DENSITY Never done BP CONTROLLED (<130/80) due on 12/24/2020 COVID-19 VACCINE(2 - Booster for Mark series) due o n 03/03/2021 ADVANCE DIRECTIVE DISCUSSION Never done DIABETES SCREEN due on 08/30/2021 HPI Dalia Drew is a 66 year old female. PMH signific ant for ACTIVE PROBLEM LIST Chronic Bronchitis (Hcc) INSOMNIA, intermittent Tobacco Use Disorder Reactive depression Generalized Anxiety Disorder Unspecified Glaucoma(365.9) Allergic Rhinitis, Cause Unspecified Family History of Malignant Neoplasm of Gastrointestin al Tract Other Dysphagia Abnormal Mammogram, Unspecified Duodenitis Without Mention of Hemorrhage Acute Gastritis Without Mention of Hemorrhage Unspecified Disorder of Skin and Subcutaneous Tissue Helicobacter Pylori Benign Neoplasm of Skin of Trunk, Except Scrotum Ankle Fracture Essential Hypertension Gastroesophageal Reflux Disease Without Esophagitis Compression Fracture of T5 Vertebra (Hcc) Trauma Fall From Ladder Closed Fracture of Multiple Ribs of Right Side With Ro utine Healing Wheezing Hypoxia Back Pain Incidental Lung Nodule, Greater Than Or Equal to 8mm Copd, Severe (Hcc) Tension Pneumothorax Chronic Respiratory Failure With Hypoxia (Hcc) Community Acquired Pneumonia of Left Lower Lobe of [place] g HPI excerpted from previous visit: She was admitted to [facility] er 9 through December 06, 2020. Admission for COPD exacerbation and respirat ory failure. She was seen by pulmonary medicine during her admission by Dr. Bentley. Medications at discharge citalopram 20 mg oral daily o meprazole 40 mg oral daily amlodipine 2.5 mg oral daily cyclobenzaprine 10 mg 3 times daily as needed, gabapentin 300 mg oral twice daily, albu terol sulfate inhaler every 4 hours as needed, fluticasone Umeclidiniu m vilanterol daily, atorvastatin 10 mg oral daily ibuprofen by 800 mg oral 3 times daily as n eeded, Augmentin twice daily x8 tablets prednisone taper. Record review shows that she was commended for cough a nd dyspnea. Noted to have acute on chronic hypoxic respiratory failure seco ndary exacerbation of COPD and left lower lobe pneumonia. Pulmonary medicine followed during her admission. Chest x-ray showed small left pleural effus ion, left lower lobe pneumonia versus atelectasis. BiPAP as needed during a dmission. She was continued on supplemental oxygen to keep O2 abov e 90%, 3 to 6 L nasal cannula at baseline. Treated with IV Solu-Medrol during admission, transition to oral prednisone taper at discharge. Respiratory panel and C ovid testing were negative. Sputum culture shows presumptive C albicans mixed mercy. Treated with IV azithromycin and IV Zosyn during admission. Transition to Augmentin at discharge. Follow-up in 1 week with PCP recommen ded. Follow-up with pulmonary medicine in 2 weeks recommended. Palliative medicine c onsulted during recent admission and recommended continued followed up with p alliative medicine at discharge given moderately severe obstructive lung dis ease. Secondary diagnoses chronic hyponatremia likely secondary to chr onic alcohol use which was improved. Chronic alcohol use, MVI t hiamine and folic acid supplementation recommended. Hypertension with stable and she was cont inued on amlodipine hyperlipidemia noted she was continued o n statin. Noted severe protein calorie malnutrition as evidenced by reduced BMI and cachectic appearance. Dietitian consulted during admission. 12/06/2020 WBC 9.3 hemoglobin 10.9 hematocrit 33.4 plat elets 504. Sodium 131 potassium 4.7 chloride 96 CO2 30 5 BUN 2 2 creatinine 0.38 estimated creatinine clearance 43.61 glucose 113 calcium 8.1 Shortness of breath: continues but improved Cough: present Wheeze: some Sputum:no Fever: none since discharge Oxygen: 3L NC 24/7 Inhaler: Using currently, in need of jose ntenance inhaler refill from Dr. Bentley Follow-up with hat renovator: scheduled for next week, Dr. Bentley's office Complete medications: yes completed. Notes eating OK. Does not take any supplemental, nothi ng recommended at discharge notes continues to smoke, EtOH. Notes chronic back pain, stable, no alarm symptoms, ib uprofen seems to help somewhat. Not interested in physical therapy. Has not seen spine physician. X-ray completed in February. Requests [place]. Presents today for routine f ollow up visit. She reports no hos (more content not included)... CNCO on 08-09-2021 CNCO Letter Text [facility] CNPN on 07-05-2021 CNPN Telephone (FAMPWS) [facility] DALIA DREW ([id number]) 1955 [facility] Date Time Provider Department 07/05/21 SELWYN MEJIAS During your visit today, we recorded the following inf ormation about you: Hafsa Bustamante 07/05/2021 9:11 AM Signed Pt is requesting to have Virtussin AC Liquid Vir refil led (generic for Guaifenesin AC). This was not an option for me to sherry ct, so I am noting it here. Please call pt if this is possible. Thank you, Hafsa Mejias MD 07/06/2021 7:52 PM Signed Just got RX for this on 06/16/21. Will okay this RX but if cough is severe enough that t his does not last till her appointment with Lacy, should be seen to determin e the cause for the severe cough needing to take this med for that often. The following approved medic ation requests have been transmitted electronically. Signed Prescriptions Disp Refills codeine-guaiFENesin (GUAIFENESIN AC) 10-100 mg/5 mL sy rup 236 mL 0 Sig: Take 5-10 mL by mouth four times daily as needed for up to 7 days. JOAQUÍN Class: C-V WILBERT: No Authorizing Provider: SELWYN MEJIAS MD Amanda Babulski, RN 07/07/2021 8:53 AM Signed Called and left a voicemail for the Patient to call back and ask for a nurse to receive the providers message. RADHA Fitzgerald RN 07/07/2021 11:55 AM Signed Patient returns call and provider message below given. Patient verbalizes understanding. Giulia Mcginnis RN Allergies As of Date: 07/05/2021 Noted Allergy Reactio n WELLBUTRIN SR (BUPROPION) 05/08/2008 1 - Mental Status Change Comments: made me hallucinate Date Reviewed: 12/13/2020 Reviewed by: Racheal Lopez LPN - Fully Assessed Reason for Visit: Refill Request [94] Visit Diagnoses:COPD, severe (HCC) [J44.9] Cough [R05.9] Order(s):codeine-guaiFENesin (GUAIFENESI N AC) 10-100 mg/5 mL syrupTake 5-10 mL by mouth four times daily as needed for up to 7 days.D isp: 236 mLRfl: 0 Prescriptions as of 07/07/2021 - codeine-guaiFENesin (GUAIFENESIN AC) 10-100 mg/5 mL syrup Take 5-10 mL by mouth four times daily as needed for u p to 7 days. - aspirin 81 mg [...] 1 capsule by mouth once daily. - mptnbkouqir-ogbhfcqgm-rgsjwbtf (TRELEGY ELLIPTA) 100 -62.5-25 mcg Inhale 1 Puff as instructed once daily. - ibuprofen (MOTRIN) 800 mg tablet Take 1 tablet by mouth every 8 hours as needed for lily n (back). - Food Supplement, Lactose-Free (ENSURE ACTIVE HIGH MN OTEIN) liqd Take 237 mL by mouth once daily. - albuterol HFA (VENTOLIN HFA) 90 mcg/actuation inhale r Inhale 2 Puffs as instructed every 4 hours as needed. -active - gabapentin (NEURONTIN) 300 mg capsule Take 1 capsule by mouth twice daily for 90 days. - HYDROcodone-acetaminophen (NORCO) 5-325 mg per table t Take 1 tablet by mouth every 12 [...] and continue for 1 week after rash re solves. - promethazine (PHENERGAN) 6.25 mg/5 mL syrup Take 5-10 mL by mouth four times daily as needed for N ausea/Vomiting (and cough). - nabumetone (RELAFEN) 500 mg tablet Take 1 tablet by mouth twice daily. - diclofenac sodium (VOLTAREN) 1 % topical gel Apply 2 grams to affected area four times daily. - PREDNISONE ORAL Take by mouth. See Taper instructions. - guaiFENesin (MUCINEX) 600 mg 12 hr tablet Take 2 tablets by mouth twice daily as needed for Cold /Allergy Symptoms. - COMPOUNDED PRESCRIPTION Overnight pulse oximetry-- J42 Chronic bronchitis, R09 .02hypoxemia - cholecalciferol (VITAMIN D3) 1,000 unit tab tablet Take 1 tablet by mouth once daily. - polyethylene glycol 3350 (MIRALAX, GLYCOLAX) 17 gram packet Take 1 Packet by mouth once daily. - thiamine (VITAMIN B1) 100 mg tablet Take 1 tablet by mouth three times daily. - albuterol (PROVENTIL) 2.5 mg /3 mL (0.083 %) nebuliz er solution Use 3 mL via nebulizer every 4 hours as needed for Whe ezing/Shortness of Breath. Use over 5-15minutes. - COMPOUNDED PRESCRIPTION Nebulizer for home use. Dx: chronic bronchitis Meds Comments as of 09/02/2018: 09/02/18 The medications are managed by this patient b y: PATIENT Janell Menjivar Pharm-T Problem List As Of Date 07/05/2021 Noted Resolved COLLES' FRACTURE-CLOSED [S52.539A] 02/14/2005 09/29/19 06 RADIAL STYLOID TENOSYNOV [ (more content not included) ... OBSOLETE on 08-04-2020 OBSOLETE Refill (SPAGWO) [facility] DALIA DREW ([id number]) 1955 F Medical Date Time Provider Department Center 08/04/20 JOSE LANIER SPAGWO During your visit today, we recorded the following inf ormation about you: Jerry Garduno LPN 08/05/2020 9:11 AM Signed Notified patient she will need an appointment to discu receiving refills. Patient acknowledged. Allergies As of Date: 08/04/2020 Noted Allergy Reactio n WELLBUTRIN SR (BUPROPION) 05/08/2008 1 - Mental Status Change Comments: made me hallucinate Date Reviewed: 08/03/2020 Reviewed by: Lacy Manzanares APRN.DUPLICATION SPECIALIST - Fully Assessed Reason for Visit: Refill Request [94] Prescriptions as of 08/04/2020 Sig: CEPHALEXIN 500 MG CAPSULE Take 1 capsule by mouth four * MUPIROCIN 2 % TOPICAL OINTMENT Apply 1 application to affect* IBUPROFEN 800 MG TABLET Take 1 tablet by mouth every * TRIAMCINOLONE ACETONIDE 0.1 %* Apply 1 application to affect* GABAPENTIN 300 MG CAPSULE Take 1 capsule by mouth twic e* AMLODIPINE 2.5 MG TABLET Take 1 tablet by mouth once d * CITALOPRAM 20 MG TABLET Take 1 tablet by mouth once d* LOSARTAN 50 MG TABLET Take 1 tablet by mouth twice * OMEPRAZOLE 40 MG CAPSULE,EVE* Take 1 capsule by mouth once * KETOCONAZOLE 2 % TOPICAL CREAM Apply 1 application to affect* TRELEGY ELLIPTA 100 MCG-62.5 * Inhale 1 Puff as instru cted o* ALBUTEROL SULFATE HFA 90 MCG/* Inhale 2 Puffs as instr ucted * PROMETHAZINE 6.25 MG/5 ML ORA* Take 5-10 mL by mouth f our ti* NABUMETONE 500 MG TABLET Take 1 tablet by mouth twice * DICLOFENAC 1 % TOPICAL GEL Apply 2 grams to affected a re* NICOTINE 21 MG/24 HR DAILY TR* Apply 1 Patch as direct ed price* Patient not taking: Reported on 08/03/2020 NICOTINE 14 MG/24 HR DAILY TR* Apply 1 Patch as direct ed price* Patient not taking: Reported on 08/03/2020 NICOTINE 7 MG/24 HR DAILY TRA* Apply 1 Patch as direct ed price* Patient not taking: Reported on 08/03/2020 PREDNISONE ORAL Take by mouth. See Taper inst* Patient not taking: Reported on 08/03/2020 GUAIFENESIN ER 600 MG TABLET,* Take 2 tablets by mouth twice* COMPOUNDED PRESCRIPTION Overnight pulse oximetry-- J4* CHOLECALCIFEROL (VITAMIN D3) * Take 1 tablet by mouth once d* POLYETHYLENE GLYCOL 3350 17 G* Take 1 Packet by mouth once d* THIAMINE HCL (VITAMIN B1) 100* Take 1 tablet by mouth three * ALBUTEROL SULFATE 2.5 MG/3 ML* Use 3 mL via nebulizer every * * COMPOUNDED PRESCRIPTION Nebulizer for home use. Dx: * Problem List As Of Date 08/04/2020 Noted Resolved COLLES' FRACTURE-CLOSED [S52.539A] 02/14/2005 09/29/19 06 RADIAL STYLOID TENOSYNOV [M65.4] 06/28/2005 09/28/2005 FX LATERAL MALLEOLUS-CLOSE [S82.63XA] 11/08/200509/17 Chronic bronchitis (HCC) [J42] 12/17/2006 INSOMNIA, intermittent [G47.00] 12/17/2006 Tobacco use disorder [F17.200] 12/17/2006 Acute sinusitis, unspecified [J01.90] 02/06/200806/13 Reactive depression [F32.9] 02/06/2008 GENERALIZED ANXIETY DIS [F41.1] 02/06/2008 GLAUCOMA NOS [H40.9] 02/06/2008 ALLERGIC RHINITIS NOS [J30.9] 05/08/2008 FAMILY HX GI MALIGNANCY [Z80.0] 08/25/2008 DYSPHAGIA NEC [R13.19] 08/25/2008 UNSP ABNORMAL MAMMOGRAM [R92.8] 08/29/2008 DUODENITIS W/O HEMORRHAGE [K29.80] 09/14/2008 ACUTE GASTRITIS W/O HEMORRHAGE [K29.00] 09/14/2008 Unspecified Disorder of Skin and Subcutaneous T*2008 Helicobacter Pylori 12/08/2008 Benign Neoplasm of Skin of Trunk, except Scrotu*2008 Fracture of right distal radius [S52.501A] 07/24/2012 11/24/2014 Ankle fracture [S82.899A] 11/24/2014 Essential hypertension [I10] 02/27/2017 Gastroesophageal reflux disease without esophag*2017 Compression fracture of T5 vertebra (HCC) [S22.*2018 Trauma [T14.90XA] 08/27/2018 Fall from ladder [W11.XXXA] 08/27/2018 Closed fracture of multiple ribs of right side *2018 Wheezing [R06.2] 08/27/2018 Hypoxia [R09.02] 08/27/2018 Back pain [M54.9] 09/2018 Incidental lung nodule, greater than or equal t*2019 COPD, severe (HCC) [J44.9] 11/04/2019 Tension pneumothorax [J93.0] 11/04/2019 Chronic respiratory failure with hypoxia (HCC) *2019 Community acquired pneumonia of left lower lobe*2019 Cervical spondylosis without myelopathy [M47.81*201905/27/2020 Lumbosacral spondylosis without myelopathy [M47*201905/27/2020 Encounter Status:Closed by JERRY KOLB on 1 OBSOLETE on 05-05-2020 OBSOLETE Refill (SPAGWO) [facility] DALIA DREW ([id number]) 1955 F Medical Date Time Provider Department Center 05/05/20 JOSE LANIER During your visit today, we recorded the following inf ormation about you: Allergies As of Date: 05/05/2020 Noted Allergy Reactio n WELLBUTRIN SR (BUPROPION) 05/08/2008 1 - Mental Status Change Comments: made me hallucinate Date Reviewed: 04/01/2020 Reviewed by: Loulou Pretty - Fully Assessed Reason for Visit: Refill Request [94] Order(s):tiZANidine (ZANAFLEX) 2 mg tabl etTake 1 tablet by mouth at bedtime as needed (muscle spasms).Disp: 30 tabletRfl: 1 Prescriptions as of 05/05/2020 Sig: TIZANIDINE 2 MG TABLET Take 1 tablet by mouth at bed* GABAPENTIN 300 MG CAPSULE Take 1 capsule by mouth twic e* PROMETHAZINE 6.25 MG/5 ML ORA* Take 5-10 mL by mouth f our ti* NABUMETONE 500 MG TABLET Take 1 tablet by mouth twice * TRELEGY ELLIPTA 100 MCG-62.5 * Inhale 1 Puff as instru cted o* DICLOFENAC 1 % TOPICAL GEL Apply 2 grams to affected a re* HYDROCODONE 5 MG-ACETAMINOPHE* Take 1 tablet by mouth every * NICOTINE 21 MG/24 HR DAILY TR* Apply 1 Patch as direct ed price* NICOTINE 14 MG/24 HR DAILY TR* Apply 1 Patch as direct ed price* NICOTINE 7 MG/24 HR DAILY TRA* Apply 1 Patch as direct ed price* IBUPROFEN 800 MG TABLET Take 1 tablet by mouth every * PREDNISONE ORAL Take by mouth. See Taper inst* TRIAMCINOLONE ACETONIDE 0.1 %* Apply 1 application to affect* CITALOPRAM 20 MG TABLET Take 1 tablet by mouth once d* OMEPRAZOLE 40 MG CAPSULE,EVE* Take 1 capsule by mouth once * AMLODIPINE 2.5 MG TABLET Take 1 tablet by mouth once d * LOSARTAN 50 MG TABLET Take 1 tablet by mouth twice * GUAIFENESIN ER 600 MG TABLET,* Take 2 tablets by mouth twice* Patient not taking: Reported on 12/18/2019 ALBUTEROL SULFATE HFA 90 MCG/* Inhale 2 Puffs as instr ucted * COMPOUNDED PRESCRIPTION Overnight pulse oximetry-- J4* CHOLECALCIFEROL (VITAMIN D3) * Take 1 tablet by mouth once d* Patient not taking: Reported on 12/18/2019 POLYETHYLENE GLYCOL 3350 17 G* Take 1 Packet by mouth once d* THIAMINE HCL (VITAMIN B1) 100* Take 1 tablet by mouth three * Patient not taking: Reported on 12/18/2019 ALBUTEROL SULFATE 2.5 MG/3 ML* Use 3 mL via nebulizer every * * COMPOUNDED PRESCRIPTION Nebulizer for home use. Dx: * Problem List As Of Date 05/05/2020 Noted Resolved COLLES' FRACTURE-CLOSED [S52.539A] 02/14/2005 09/29/19 06 RADIAL STYLOID TENOSYNOV [M65.4] 06/28/2005 09/28/2005 FX LATERAL MALLEOLUS-CLOSE [S82.63XA] 11/08/200509/17 Chronic bronchitis (HCC) [J42] 12/17/2006 INSOMNIA, intermittent [G47.00] 12/17/2006 More... Tobacco use disorder [F17.200] 12/17/2006 Acute sinusitis, unspecified [J01.90] 02/06/200806/13 Reactive depression [F32.9] 02/06/2008 GENERALIZED ANXIETY DIS [F41.1] 02/06/2008 GLAUCOMA NOS [H40.9] 02/06/2008 ALLERGIC RHINITIS NOS [J30.9] 05/08/2008 FAMILY HX GI MALIGNANCY [Z80.0] 08/25/2008 DYSPHAGIA NEC [R13.19] 08/25/2008 UNSP ABNORMAL MAMMOGRAM [R92.8] 08/29/2008 DUODENITIS W/O HEMORRHAGE [K29.80] 09/14/2008 ACUTE GASTRITIS W/O HEMORRHAGE [K29.00] 09/14/2008 Unspecified Disorder of Skin and Subcutaneous T*2008 Helicobacter Pylori 12/08/2008 More... Benign Neoplasm of Skin of Trunk, except Scrotu*2008 Fracture of right distal radius [S52.501A] 07/24/2012 11/24/2014 Ankle fracture [S82.899A] 11/24/2014 Essential hypertension [I10] 02/27/2017 Gastroesophageal reflux disease without esophag*2017 More... Compression fracture of T5 vertebra (HCC) [S22.*2018 Trauma [T14.90XA] 08/27/2018 Fall from ladder [W11.XXXA] 08/27/2018 Closed fracture of multiple ribs of right side *2018 Wheezing [R06.2] 08/27/2018 Hypoxia [R09.02] 08/27/2018 Back pain [M54.9] 09/2018 More... Incidental lung nodule, greater than or equal t*2019 COPD, severe (HCC) [J44.9] 11/04/2019 Tension pneumothorax [J93.0] 11/04/2019 Chronic respiratory failure with hypoxia (HCC) *2019 Community acquired pneumonia of left lower lobe*2019 Cervical spondylosis without myelopathy [M47.81*2019 Lumbosacral spondylosis without myelopathy [M47*2019 Prescriptions ordered this encounter Disp Refills Star t End TIZANIDINE 2 MG TABLET 30 t* 1 05/05/2020 06/04/2020 Cmt: MED SYNC PT, PLZ SEND IN NEW RX(S) FOR MARCH PI CK UP, THANK YOU! Route: ORAL Sig: Take 1 tablet by mouth at bedtime as needed (musc le spasms). Medications Discontinued During This Encounter Prescriptions - tiZANidine (ZANAFLEX) 2 mg tablet (Discontinued) Take 1 tablet by mouth at bedtime as needed (muscle sp asms). Encounter Status:Closed by JOSE LANIER on 05/05/20 CNOV on 04-01-2020 CNOV Office Visit (SPAGWO) [facility] [place] DALIA Mitchell ([id number]) 1955 F Medical Date Time Provider Department Center 04/01/20 10:00 AM ERIC JEFFERSON (ELECTRIC POWER LINE REPAIRER.PARTY COORDINATOR) SPAGWO During your visit today, we recorded the following inf ormation about you: Temperature Weight Height 97.3 degrees 54.4 kg 1.676 m Eric Jefferson APRN.CNP 04/01/2020 10:39 AM Signed Subjective HPI Dalia Drew is a 64 year old female who pre sents with moderateback pain. This has been ongoing for 2 years and chun s been constant as a result of falling off a room in 2018 resulting in rib and compress ion fractures at T5. The pain has a severity of 8/10 and is sharp and aching in natu re. she reports that activity causes this to be worse. The pa tient alleviates the pain at home with NSAIDS, opiods/narcotics and resting, which has a mild affect on their pain. she has tried PT, and Preventative meds, to treat the pain. We provide the patient with NSAIDS and lidocaine patches which has not improved the patients pain control. --patient has no more pills left after refill on 03/04 --Patient following up for refill of medications I have confirmed and edited as necessary , the PMH, FH, SH, and ROS obtained by others. Review of Systems Eyes: Negative for blurred vision. Respiratory: Negative for shortness of breath. Cardiovascular: Negative for chest pain and leg swelli ng. Gastrointestinal: Negative for constipation, diarrhea, nausea and vomiting. Genitourinary: Negative for dysuria. Skin: Negative for itching. Neurological: Negative for dizziness, tingling, weakne ss and headaches. Endo/Heme/Allergies: Does not bruise/bleed easily. Psychiatric/Behavioral: Negative for depression and ritchie icidal ideas. PAST MEDICAL HISTORY Diagnosis Date - Anxiety - Back pain 09/2018 T5 compression fracture in fall. - Chronic obstructive pulmonary disease (COPD) ([facility]) - Dysphagia, unspecified(787.20) - Emphysema lung (HCC) - Hypertension - INSOMNIA, intermittent 12/17/2006 stress related - Unspecified chronic bronchitis (HCC) 12/17/2006 PAST SURGICAL HISTORY Procedure Laterality Date - BX BREAST PERC VACUUM/ROTN Left - COLONOSCOP W/ OR W/O BRSH SPEC mod poor prep, otherwise normal - EGD W/O BRSH SPECIMEN W/BX duodenitis, mild gastritis FAMILY HISTORY Problem Relation Age of Onset - Heart Mother at age 38 - Colon Cancer Father - COPD No Family History Social History Tobacco Use - Smoking status: Current Every Day Smoker Packs/day: 1.00 Years: 25.00 Pack years: 25.00 Types: Cigarettes Start date: 1965 - Smokeless tobacco: Never Used - Tobacco comment: No smoking in childhod home.- - Not smoking now given COVID 19 Substance Use Topics - Alcohol use: Yes Comment: daily; hospital records noted 6+beers daily b ut at Oct hospital follow up, was not drinking, occ. - Drug use: No Current Meds TRELEGY ELLIPTA 100-62.5-25 mcg Inhale 1 Puff as instr ucted once daily. diclofenac sodium (VOLTAREN) 1 % topical gel Apply 2 g sarai to affected area four times daily. HYDROcodone-acetaminophen (NORCO) 5-325 mg per tablet Take 1 tablet by mouth every 12 hours as needed for Pain for up to 30 days. gabapentin (NEURONTIN) 300 mg capsule Take 1 cap chapito by mouth twice daily for 90 days. nicotine (NICODERM) 21 mg/24 hr Apply 1 Patch as directed every 24 hours. for 6 weeks, then start taking 14 mg nicotine (NICODERM) 14 mg/24 hr Apply 1 Patch as directed every 24 hours. x two weeks, then start taking 7 mg nicotine (NICODERM) 7 mg/24 hr Apply 1 Patch as direct ed every 24 hours. ibuprofen (MOTRIN) 800 mg tablet Take 1 tablet by mout h every 8 hours as needed. PREDNISONE ORAL Take by mouth. See Taper instructions. triamcinolone acetonide (KENALOG) 0.1 % cream Ap ply 1 application to affected area three times daily as needed (itchy rash). promethazine (PHENERGAN) 6.25 mg/5 mL syrup Take 5-10 mL by mouth four times daily as needed for Nausea/Vomiting (and cough). citalopram (CELEXA) 20 mg tablet Take 1 tablet by mout h once daily. Omeprazole 40 mg capsule Take 1 capsule by mouth once daily. amLODIPine (NORVASC) 2.5 mg tablet Take 1 tablet by mo uth once daily. losartan (COZAAR) 50 mg tablet Take 1 tablet by mouth twice daily. guaiFENesin (MUCINEX) 600 mg 12 hr tablet Take 2 tablets by mouth twice daily as needed for Cold/Allergy Symptoms. albuterol HFA (VENTOLIN HFA) 90 mcg/actuation inhaler Inhale 2 Puffs as instructed every 4 hours as needed. COMPOUNDED PRESCRIPTION Overnight pulse oximetry-- J42 Chronic bronchitis, R09.02hypoxemia cholecalciferol (VITAMIN D3) 1,000 unit tab tablet Take 1 tablet by mouth once daily. polyethylene glycol 3350 (MIRALAX, GLYCOLAX) 17 gram p acket Take 1 Packet by mouth once daily. thiamine (VITAMIN B1) 100 mg tablet Take 1 table t by mouth three times daily. albuterol (PROVENTIL) 2.5 m (more content not included )... OBSOLETE on 03-16-2020 OBSOLETE Refill (SPAGWO) [facility] DALIA DREW ([id number]) 1955 F Medical Date Time Provider Department Center 03/16/20 JOSE LANIER During your visit today, we recorded the following inf ormation about you: Allergies As of Date: 03/16/2020 Noted Allergy Reactio n WELLBUTRIN SR (BUPROPION) 05/08/2008 1 - Mental Status Change Comments: made me hallucinate Date Reviewed: 03/04/2020 Reviewed by: Loulou Pretty - Fully Assessed Reason for Visit: Refill Request [94] Visit Diagnosis:Hand arthritis [M19.049] Order(s):diclofenac sodium (VOLTAREN) 1 % topical gelApply 2 grams to affected area four times daily.Disp: 200 gRfl: 2 Prescriptions as of 03/16/2020 Sig: DICLOFENAC 1 % TOPICAL GEL Apply 2 grams to affected a re* HYDROCODONE 5 MG-ACETAMINOPHE* Take 1 tablet by mouth every * GABAPENTIN 300 MG CAPSULE Take 1 capsule by mouth twic e* NICOTINE 21 MG/24 HR DAILY TR* Apply 1 Patch as direct ed price* NICOTINE 14 MG/24 HR DAILY TR* Apply 1 Patch as direct ed price* NICOTINE 7 MG/24 HR DAILY TRA* Apply 1 Patch as direct ed price* IBUPROFEN 800 MG TABLET Take 1 tablet by mouth every * PREDNISONE ORAL Take by mouth. See Taper inst* TRIAMCINOLONE ACETONIDE 0.1 %* Apply 1 application to affect* PROMETHAZINE 6.25 MG/5 ML ORA* Take 5-10 mL by mouth f our ti* CITALOPRAM 20 MG TABLET Take 1 tablet by mouth once d* OMEPRAZOLE 40 MG CAPSULE,EVE* Take 1 capsule by mouth once * AMLODIPINE 2.5 MG TABLET Take 1 tablet by mouth once d * LOSARTAN 50 MG TABLET Take 1 tablet by mouth twice * TRELEGY ELLIPTA 100 MCG-62.5 * Inhale 1 Puff as instru cted o* Patient not taking: Reported on 12/18/2019 GUAIFENESIN ER 600 MG TABLET,* Take 2 tablets by mouth twice* Patient not taking: Reported on 12/18/2019 ALBUTEROL SULFATE HFA 90 MCG/* Inhale 2 Puffs as instr ucted * COMPOUNDED PRESCRIPTION Overnight pulse oximetry-- J4* CHOLECALCIFEROL (VITAMIN D3) * Take 1 tablet by mouth once d* Patient not taking: Reported on 12/18/2019 POLYETHYLENE GLYCOL 3350 17 G* Take 1 Packet by mouth once d* THIAMINE HCL (VITAMIN B1) 100* Take 1 tablet by mouth three * Patient not taking: Reported on 12/18/2019 ALBUTEROL SULFATE 2.5 MG/3 ML* Use 3 mL via nebulizer every * * COMPOUNDED PRESCRIPTION Nebulizer for home use. Dx: * Problem List As Of Date 03/16/2020 Noted Resolved COLLES' FRACTURE-CLOSED [S52.539A] 02/14/2005 09/29/19 06 RADIAL STYLOID TENOSYNOV [M65.4] 06/28/2005 09/28/2005 FX LATERAL MALLEOLUS-CLOSE [S82.63XA] 11/08/200509/17 Chronic bronchitis (HCC) [J42] 12/17/2006 INSOMNIA, intermittent [G47.00] 12/17/2006 More... Tobacco use disorder [F17.200] 12/17/2006 Acute sinusitis, unspecified [J01.90] 02/06/200806/13 Reactive depression [F32.9] 02/06/2008 GENERALIZED ANXIETY DIS [F41.1] 02/06/2008 GLAUCOMA NOS [H40.9] 02/06/2008 ALLERGIC RHINITIS NOS [J30.9] 05/08/2008 FAMILY HX GI MALIGNANCY [Z80.0] 08/25/2008 DYSPHAGIA NEC [R13.19] 08/25/2008 UNSP ABNORMAL MAMMOGRAM [R92.8] 08/29/2008 DUODENITIS W/O HEMORRHAGE [K29.80] 09/14/2008 ACUTE GASTRITIS W/O HEMORRHAGE [K29.00] 09/14/2008 Unspecified Disorder of Skin and Subcutaneous T*2008 Helicobacter Pylori 12/08/2008 More... Benign Neoplasm of Skin of Trunk, except Scrotu*2008 Fracture of right distal radius [S52.501A] 07/24/2012 11/24/2014 Ankle fracture [S82.899A] 11/24/2014 Essential hypertension [I10] 02/27/2017 Gastroesophageal reflux disease without esophag*2017 More... Compression fracture of T5 vertebra (HCC) [S22.*2018 Trauma [T14.90XA] 08/27/2018 Fall from ladder [W11.XXXA] 08/27/2018 Closed fracture of multiple ribs of right side *2018 Wheezing [R06.2] 08/27/2018 Hypoxia [R09.02] 08/27/2018 Back pain [M54.9] 09/2018 More... Incidental lung nodule, greater than or equal t*2019 COPD, severe (HCC) [J44.9] 11/04/2019 Tension pneumothorax [J93.0] 11/04/2019 Chronic respiratory failure with hypoxia (HCC) *2019 Community acquired pneumonia of left lower lobe*2019 Cervical spondylosis without myelopathy [M47.81*2019 Lumbosacral spondylosis without myelopathy [M47*2019 Prescriptions ordered this encounter Disp Refills Star t End DICLOFENAC 1 % TOPICAL GEL 200 g 2 03/16/2020 Cmt: MED SYNC PATIENT. WE WILL PUT NEW RX ON HOLD FOR NEXT CYCLE. Sig: Apply 2 grams to affected area four times daily. Medications Discontinued During This Encounter Prescriptions - diclofenac sodium (VOLTAREN) 1 % topical gel (Discon tinued) Apply 2 g to affected area four times daily. Encounter Status:Closed by JOSE LANIER on 03/16/20 CNOV on 03-04-2020 CNOV Office Visit (SPAGWO) [place] DALIA Mitchell ([id number]) 1955 F Medical Date Time Provider Department Center 03/04/20 10:45 AM JOSE LANIER SPAGWO During your visit today, we recorded the following inf ormation about you: Temperature Weight Height CNPN on 02-25-2020 CNPN Telephone (AGSPINE3) [place] DALIA Mitchell ([id number]) 1955 F Medical Date Time Provider Department Center 02/25/20 ERIC JEFFERSON (ELECTRIC POWER LINE REPAIRER.PARTY COORDINATOR) AGSPINE3 During your visit today, we recorded the following inf ormation about you: MATEO Crowell 02/25/2020 7:49 AM Signed ----- Message from Nasra Stinson sent at 02/24/2020 4:54 PM EST ----- Subject Line Format: [facility] [place]/ Eric forbes CNP Patient has been identified by name and Date of (Y/N): Y Patient: Dalia Drew Date of : 1955 Provider for this encounter: Selwyn Mejias MD Reason for the call/escalation: Patient receive a mess age to reschedule her appointment with Eric lorenzo CNP and no appointments available until March, please assist Person calling if other than patient: no Return call to if other than patient: no Best contact number: [phone] Nasra Scott February 24, 2020 4:55 PM Allergies As of Date: 02/25/2020 Noted Allergy Reactio n WELLBUTRIN SR (BUPROPION) 05/08/2008 1 - Mental Status Change Comments: made me hallucinate Date Reviewed: 02/12/2020 Reviewed by: Loulou Pretty - Fully Assessed Reason for Visit: Appointment [186] Prescriptions as of 02/25/2020 Sig: HYDROCODONE 5 MG-ACETAMINOPHE* Take 1 tablet by mouth every * TIZANIDINE 2 MG TABLET Take 1 tablet by mouth at bed* GABAPENTIN 300 MG CAPSULE Take 1 capsule by mouth twic e* NICOTINE 21 MG/24 HR DAILY TR* Apply 1 Patch as direct ed price* NICOTINE 14 MG/24 HR DAILY TR* Apply 1 Patch as direct ed price* NICOTINE 7 MG/24 HR DAILY TRA* Apply 1 Patch as direct ed price* IBUPROFEN 800 MG TABLET Take 1 tablet by mouth every * PREDNISONE ORAL Take by mouth. See Taper inst* TRIAMCINOLONE ACETONIDE 0.1 %* Apply 1 application to affect* PROMETHAZINE 6.25 MG/5 ML ORA* Take 5-10 mL by mouth f our ti* CITALOPRAM 20 MG TABLET Take 1 tablet by mouth once d* OMEPRAZOLE 40 MG CAPSULE,EVE* Take 1 capsule by mouth once * AMLODIPINE 2.5 MG TABLET Take 1 tablet by mouth once d * LOSARTAN 50 MG TABLET Take 1 tablet by mouth twice * TRELEGY ELLIPTA 100 MCG-62.5 * Inhale 1 Puff as instru cted o* Patient not taking: Reported on 12/18/2019 GUAIFENESIN ER 600 MG TABLET,* Take 2 tablets by mouth twice* Patient not taking: Reported on 12/18/2019 ALBUTEROL SULFATE HFA 90 MCG/* Inhale 2 Puffs as instr ucted * COMPOUNDED PRESCRIPTION Overnight pulse oximetry-- J4* CHOLECALCIFEROL (VITAMIN D3) * Take 1 tablet by mouth once d* Patient not taking: Reported on 12/18/2019 POLYETHYLENE GLYCOL 3350 17 G* Take 1 Packet by mouth once d* THIAMINE HCL (VITAMIN B1) 100* Take 1 tablet by mouth three * Patient not taking: Reported on 12/18/2019 ALBUTEROL SULFATE 2.5 MG/3 ML* Use 3 mL via nebulizer every * * COMPOUNDED PRESCRIPTION Nebulizer for home use. Dx: * Problem List As Of Date 02/25/2020 Noted Resolved COLLES' FRACTURE-CLOSED [S52.539A] 02/14/2005 09/29/19 06 RADIAL STYLOID TENOSYNOV [M65.4] 06/28/2005 09/28/2005 FX LATERAL MALLEOLUS-CLOSE [S82.63XA] 11/08/200509/17 Chronic bronchitis (HCC) [J42] 12/17/2006 INSOMNIA, intermittent [G47.00] 12/17/2006 More... Tobacco use disorder [F17.200] 12/17/2006 Acute sinusitis, unspecified [J01.90] 02/06/200806/13 Reactive depression [F32.9] 02/06/2008 GENERALIZED ANXIETY DIS [F41.1] 02/06/2008 GLAUCOMA NOS [H40.9] 02/06/2008 ALLERGIC RHINITIS NOS [J30.9] 05/08/2008 FAMILY HX GI MALIGNANCY [Z80.0] 08/25/2008 DYSPHAGIA NEC [R13.19] 08/25/2008 UNSP ABNORMAL MAMMOGRAM [R92.8] 08/29/2008 DUODENITIS W/O HEMORRHAGE [K29.80] 09/14/2008 ACUTE GASTRITIS W/O HEMORRHAGE [K29.00] 09/14/2008 Unspecified Disorder of Skin and Subcutaneous T*2008 Helicobacter Pylori 12/08/2008 More... Benign Neoplasm of Skin of Trunk, except Scrotu*2008 Fracture of right distal radius [S52.501A] 07/24/2012 11/24/2014 Ankle fracture [S82.899A] 11/24/2014 Essential hypertension [I10] 02/27/2017 Gastroesophageal reflux disease without esophag*2017 More... Compression fracture of T5 vertebra (HCC) [S22.*2018 Trauma [T14.90XA] 08/27/2018 Fall from ladder [W11.XXXA] 08/27/2018 Closed fracture of multiple ribs of right side *2018 Wheezing [R06.2] 08/27/2018 Hypoxia [R09.02] 08/27/2018 Back pain [M54.9] 09/2018 More... Incidental lung nodule, greater than or equal t*2019 COPD, severe (HCC) [J44.9] 11/04/2019 Tension pneumothorax [J93.0] 11/04/2019 Chronic respiratory failure with hypoxia (HCC) *2019 Community acquired pneumonia of left lower lobe*2019 Encounter Status:Closed by LOUISE VANG on 0 CNOV on 02-12-2020 CNOV Office Visit (SPAGWO) [place] [facility] VIKIDALIA Robbins ([id number]) 1955 F Medical Date Time Provider Department Center 02/12/20 9:45 AM JOSE LANIER SPAGWO During your visit today, we recorded the following inf ormation about you: Temperature Weight Height 97.9 degrees 54.4 kg 1.676 m Jose Lanier MD 02/15/2020 9:02 PM Signed [facility] [place] Interval Evaluation Form CHIEF COMPLAINT: Spine pain Interval HPI February 12, 2020 Patinet returns for f/u rega ridng above complaints, here for medication refill. Patient states she takes [place] which all ows her to function and takes the edge off her pain. Pain 01/02--patient states she has not t aken her morning medication thus far; described as tingli ng, tneder, stinging, shooting, aching pain; otherwise remains at baseline. HPI December 18, 2019: Dalia Drew is a 64 year old female presenting to the office for evaluation and treatment of spine pain, with the worst being the right shoulder blade and left lower back ongoing since September 2018 after fall off roof. Patient states she had CT [facility] showed evidence of right-sided 6-7 rib fractures along with a compression fracture of the T5 vertebrae. Patient was admitted for pain control, neurosurgical/spine consult, and medical monitoring/treatment of her respiratory st atus. Patient was evaluated by the neurosurgery team who recommend ed non-surgical management of the T5 fracture. 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 Pain currently 10/10 PAIN DETAIL: Location: right shoulder blade, left lower back pain Radiation: none Onset: September 2018 Timing of Pain: frequently Pain Quality: stinging, ahcing Alleviating: rest Exacerbating: activity, movement Prior therapies: norco, gabapentin, motrin, heat/cold packs ADDITIONAL SYMPTOMS: No changes in urinary habits. No changes in bowel movement frequency. Able to restrain bowel movement. PAST MEDICAL HISTORY: PAST MEDICAL HISTORY Diagnosis Date - Anxiety - Back pain 09/2018 T5 compression fracture in fall. - Chronic obstructive pulmonary disease (COPD) ([facility]) - Dysphagia, unspecified(787.20) - Emphysema lung ([facility]) - Hypertension - INSOMNIA, intermittent 12/17/2006 stress related - Unspecified chronic bronchitis ([facility]) 12/17/2006 Psych: denies PAST SURGICAL HISTORY: PAST SURGICAL HISTORY Procedure Laterality Date - BX BREAST PERC VACUUM/ROTN Left - COLONOSCOP W/ OR W/O BRSH SPEC mod poor prep, otherwise normal - EGD W/O BRS SPECIMEN W/BX duodenitis, mild gastritis SOCIAL HISTORY: Social History Tobacco Use - Smoking status: Current Every Day Smoker Packs/day: 1.00 Years: 25.00 Pack years: 25.00 Types: Cigarettes Start date: 1965 - Smokeless tobacco: Never Used - Tobacco comment: No smoking in childhod home.- - Not smoking now given COVID 19 Substance Use Topics - Alcohol use: Yes Comment: daily; hospital records noted 6+beers daily b ut at Oct hospital follow up, was not drinking, occ. 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 30 tablet 1 - gabapentin (NEURONTIN) 300 mg capsule Take 1 capsule by mouth twice daily for 90 days. 60 capsule 2 - HYDROcodone-acetaminophen (NORCO) 5-32 5 mg per tablet Take 1 tablet by mouth every 12 hours as needed for Pain for up to 30 days. D o not start before January 17, 2020. 60 tablet 0 - nicotine (NICODERM) 21 mg/ 24 hr Apply 1 Patch as directed every 24 hours. for 6 weeks, then start taking 14 mg 42 Patch 0 - nicotine (NICODERM) 14 mg/24 hr Apply 1 Patch as directed every 24 hours. x two weeks, then start taking 7 mg 14 Patch 0 - nicotine (NICODERM) 7 mg/24 hr Apply 1 Patch a s directed every 24 hours. 14 Patch 0 - ibuprofen (MOTRIN) 800 mg tablet Take 1 tablet by [facility] every 8 hours as needed. 60 tablet 2 - PREDNISONE ORAL Take by mouth. See Taper instruction s. - triamcinolone acetonide (K ENALOG) 0.1 % cream Apply 1 application to affected area three times daily as needed (itchy rash). 45 g 2 - promethazine (PHENERGAN) 6.25 mg/5 mL syrup Take 5-10 mL by mouth four times daily as needed for Nausea/Vomiting (and cough). 240 m L 1 - citalopram ( (more content not included)... OBSOLETE on 01-31-2020 OBSOLETE Refill (SPAGWO) [place] [facility] DALIA DREW ([id number]) 1955 F Medical Date Time Provider Department Center 01/31/20 JOSE LANIER During your visit today, we recorded the following inf ormation about you: Allergies As of Date: 01/31/2020 Noted Allergy Reactio n WELLBUTRIN SR (BUPROPION) 05/08/2008 1 - Mental Status Change Comments: made me hallucinate Date Reviewed: 01/15/2020 Reviewed by: Loulou Pretty - Fully Assessed Reason for Visit: Refill Request [94] Order(s):tiZANidine (ZANAFLEX) 2 mg tabl etTake 1 tablet by mouth at bedtime as needed (muscle spasms).Disp: 30 tabletRfl: 1 Prescriptions as of 01/31/2020 Sig: TIZANIDINE 2 MG TABLET Take 1 tablet by mouth at bed* GABAPENTIN 300 MG CAPSULE Take 1 capsule by mouth twic e* HYDROCODONE 5 MG-ACETAMINOPHE* Take 1 tablet by mouth every * NICOTINE 21 MG/24 HR DAILY TR* Apply 1 Patch as direct ed price* NICOTINE 14 MG/24 HR DAILY TR* Apply 1 Patch as direct ed price* NICOTINE 7 MG/24 HR DAILY TRA* Apply 1 Patch as direct ed price* IBUPROFEN 800 MG TABLET Take 1 tablet by mouth every * PREDNISONE ORAL Take by mouth. See Taper inst* TRIAMCINOLONE ACETONIDE 0.1 %* Apply 1 application to affect* PROMETHAZINE 6.25 MG/5 ML ORA* Take 5-10 mL by mouth f our ti* CITALOPRAM 20 MG TABLET Take 1 tablet by mouth once d* OMEPRAZOLE 40 MG CAPSULE,EVE* Take 1 capsule by mouth once * AMLODIPINE 2.5 MG TABLET Take 1 tablet by mouth once d * LOSARTAN 50 MG TABLET Take 1 tablet by mouth twice * TRELEGY ELLIPTA 100 MCG-62.5 * Inhale 1 Puff as instru cted o* Patient not taking: Reported on 12/18/2019 GUAIFENESIN ER 600 MG TABLET,* Take 2 tablets by mouth twice* Patient not taking: Reported on 12/18/2019 ALBUTEROL SULFATE HFA 90 MCG/* Inhale 2 Puffs as instr ucted * COMPOUNDED PRESCRIPTION Overnight pulse oximetry-- J4* CHOLECALCIFEROL (VITAMIN D3) * Take 1 tablet by mouth once d* Patient not taking: Reported on 12/18/2019 POLYETHYLENE GLYCOL 3350 17 G* Take 1 Packet by mouth once d* THIAMINE HCL (VITAMIN B1) 100* Take 1 tablet by mouth three * Patient not taking: Reported on 12/18/2019 ALBUTEROL SULFATE 2.5 MG/3 ML* Use 3 mL via nebulizer every * * COMPOUNDED PRESCRIPTION Nebulizer for home use. Dx: * Problem List As Of Date 01/31/2020 Noted Resolved COLLES' FRACTURE-CLOSED [S52.539A] 02/14/2005 09/29/19 06 RADIAL STYLOID TENOSYNOV [M65.4] 06/28/2005 09/28/2005 FX LATERAL MALLEOLUS-CLOSE [S82.63XA] 11/08/200509/17 Chronic bronchitis (HCC) [J42] 12/17/2006 INSOMNIA, intermittent [G47.00] 12/17/2006 More... Tobacco use disorder [F17.200] 12/17/2006 Acute sinusitis, unspecified [J01.90] 02/06/200806/13 Reactive depression [F32.9] 02/06/2008 GENERALIZED ANXIETY DIS [F41.1] 02/06/2008 GLAUCOMA NOS [H40.9] 02/06/2008 ALLERGIC RHINITIS NOS [J30.9] 05/08/2008 FAMILY HX GI MALIGNANCY [Z80.0] 08/25/2008 DYSPHAGIA NEC [R13.19] 08/25/2008 UNSP ABNORMAL MAMMOGRAM [R92.8] 08/29/2008 DUODENITIS W/O HEMORRHAGE [K29.80] 09/14/2008 ACUTE GASTRITIS W/O HEMORRHAGE [K29.00] 09/14/2008 Unspecified Disorder of Skin and Subcutaneous T*2008 Helicobacter Pylori 12/08/2008 More... Benign Neoplasm of Skin of Trunk, except Scrotu*2008 Fracture of right distal radius [S52.501A] 07/24/2012 11/24/2014 Ankle fracture [S82.899A] 11/24/2014 Essential hypertension [I10] 02/27/2017 Gastroesophageal reflux disease without esophag*2017 More... Compression fracture of T5 vertebra (HCC) [S22.*2018 Trauma [T14.90XA] 08/27/2018 Fall from ladder [W11.XXXA] 08/27/2018 Closed fracture of multiple ribs of right side *2018 Wheezing [R06.2] 08/27/2018 Hypoxia [R09.02] 08/27/2018 Back pain [M54.9] 09/2018 More... Incidental lung nodule, greater than or equal t*2019 COPD, severe (HCC) [J44.9] 11/04/2019 Tension pneumothorax [J93.0] 11/04/2019 Chronic respiratory failure with hypoxia (HCC) *2019 Community acquired pneumonia of left lower lobe*2019 Prescriptions ordered this encounter Disp Refills Star t End TIZANIDINE 2 MG TABLET 30 t* 1 02/02/2020 03/03/2020 Cmt: MED SYNC PATIENT. WE WILL PUT NEW RX ON HOLD FOR NEXT CYCLE. Route: ORAL Sig: Take 1 tablet by mouth at bedtime as needed (musc le spasms). Medications Discontinued During This Encounter Prescriptions - tiZANidine (ZANAFLEX) 2 mg tablet (Discontinued) Take 1 tablet by mouth at bedtime as needed (muscle sp asms). Encounter Status:Closed by JOSE LANIER on 02/02/20 CNPN on 01-13-2020 CNPN Telephone (AGSPINE3) [place] DALIA Mitchell ([id number]) 1955 F Medical Date Time Provider Department Center 01/13/20 JOSE LANIER AGSPINE3 During your visit today, we recorded the following inf ormation about you: Allergies As of Date: 01/13/2020 Noted Allergy Reactio n WELLBUTRIN SR (BUPROPION) 05/08/2008 1 - Mental Status Change Comments: made me hallucinate Date Reviewed: 12/25/2019 Reviewed by: Racheal Lopez LPN - Fully Assessed Reason for Visit: Patient Update [1234] Prescriptions as of 01/13/2020 Sig: NICOTINE 21 MG/24 HR DAILY TR* Apply 1 Patch as direct ed price* NICOTINE 14 MG/24 HR DAILY TR* Apply 1 Patch as direct ed price* NICOTINE 7 MG/24 HR DAILY TRA* Apply 1 Patch as direct ed price* IBUPROFEN 800 MG TABLET Take 1 tablet by mouth every * PREDNISONE ORAL Take by mouth. See Taper inst* DICLOFENAC 1 % TOPICAL GEL Apply 2 g to affected area fo* TIZANIDINE 2 MG TABLET Take 1 tablet by mouth at bed* X HYDROCODONE 5 MG-ACETAMINOPHE* Take 1 tablet by mout h every * TRIAMCINOLONE ACETONIDE 0.1 %* Apply 1 application to affect* X GABAPENTIN 300 MG CAPSULE Take 1 capsule by mouth tw ice* PROMETHAZINE 6.25 MG/5 ML ORA* Take 5-10 mL by mouth f our ti* CITALOPRAM 20 MG TABLET Take 1 tablet by mouth once d* OMEPRAZOLE 40 MG CAPSULE,EVE* Take 1 capsule by mouth once * AMLODIPINE 2.5 MG TABLET Take 1 tablet by mouth once d * LOSARTAN 50 MG TABLET Take 1 tablet by mouth twice * TRELEGY ELLIPTA 100 MCG-62.5 * Inhale 1 Puff as instru cted o* Patient not taking: Reported on 12/18/2019 GUAIFENESIN ER 600 MG TABLET,* Take 2 tablets by mouth twice* Patient not taking: Reported on 12/18/2019 ALBUTEROL SULFATE HFA 90 MCG/* Inhale 2 Puffs as instr ucted * COMPOUNDED PRESCRIPTION Overnight pulse oximetry-- J4* CHOLECALCIFEROL (VITAMIN D3) * Take 1 tablet by mouth once d* Patient not taking: Reported on 12/18/2019 POLYETHYLENE GLYCOL 3350 17 G* Take 1 Packet by mouth once d* THIAMINE HCL (VITAMIN B1) 100* Take 1 tablet by mouth three * Patient not taking: Reported on 12/18/2019 ALBUTEROL SULFATE 2.5 MG/3 ML* Use 3 mL via nebulizer every * * COMPOUNDED PRESCRIPTION Nebulizer for home use. Dx: * Problem List As Of Date 01/13/2020 Noted Resolved COLLES' FRACTURE-CLOSED [S52.539A] 02/14/2005 09/29/19 06 RADIAL STYLOID TENOSYNOV [M65.4] 06/28/2005 09/28/2005 FX LATERAL MALLEOLUS-CLOSE [S82.63XA] 11/08/200509/17 Chronic bronchitis (HCC) [J42] 12/17/2006 INSOMNIA, intermittent [G47.00] 12/17/2006 More... Tobacco use disorder [F17.200] 12/17/2006 Acute sinusitis, unspecified [J01.90] 02/06/200806/13 Reactive depression [F32.9] 02/06/2008 GENERALIZED ANXIETY DIS [F41.1] 02/06/2008 GLAUCOMA NOS [H40.9] 02/06/2008 ALLERGIC RHINITIS NOS [J30.9] 05/08/2008 FAMILY HX GI MALIGNANCY [Z80.0] 08/25/2008 DYSPHAGIA NEC [R13.19] 08/25/2008 UNSP ABNORMAL MAMMOGRAM [R92.8] 08/29/2008 DUODENITIS W/O HEMORRHAGE [K29.80] 09/14/2008 ACUTE GASTRITIS W/O HEMORRHAGE [K29.00] 09/14/2008 Unspecified Disorder of Skin and Subcutaneous T*2008 Helicobacter Pylori 12/08/2008 More... Benign Neoplasm of Skin of Trunk, except Scrotu*2008 Fracture of right distal radius [S52.501A] 07/24/2012 11/24/2014 Ankle fracture [S82.899A] 11/24/2014 Essential hypertension [I10] 02/27/2017 Gastroesophageal reflux disease without esophag*2017 More... Compression fracture of T5 vertebra (HCC) [S22.*2018 Trauma [T14.90XA] 08/27/2018 Fall from ladder [W11.XXXA] 08/27/2018 Closed fracture of multiple ribs of right side *2018 Wheezing [R06.2] 08/27/2018 Hypoxia [R09.02] 08/27/2018 Back pain [M54.9] 09/2018 More... Incidental lung nodule, greater than or equal t*2019 COPD, severe (HCC) [J44.9] 11/04/2019 Tension pneumothorax [J93.0] 11/04/2019 Chronic respiratory failure with hypoxia (HCC) *2019 Community acquired pneumonia of left lower lobe*2019 Encounter Status:Closed by JOSE LANIER on 01/19/20 CNOV on 12-18-2019 CNOV Office Visit (SPAGWO) [place] [facility] DALIA DREW ([id number]) 1955 F Medical Date Time Provider Department Center 12/18/19 9:30 AM JOSE LANIER SPAGWO During your visit today, we recorded the following inf ormation about you: Temperature Weight Height Basic Panel on 08-30-2018 Creatinine [Mass/Vol] 0.44 mg/dL Low 0.51-0.95 [facility] Comment on above: Performed By: #### GFR #### [address] [address] Anion gap [Moles/Vol] 10 mmol/L Normal 8-16 [facility] Comment on above: Performed By: #### GFR #### [address] [address] Calcium [Mass/Vol] 9.0 mg/dL Normal 8.5-10.1 [facility] Comment on above: Performed By: #### GFR #### [address] [address] CO2 [Moles/Vol] 28 mmol/L Normal 21-32 [facility] Comment on above: Performed By: #### GFR #### [address] [address] Glucose [Mass/Vol] 92 mg/dL Normal 70-99 [facility] Comment on above: Performed By: #### GFR #### [address] [address] Urea nitrogen [Mass/Vol] 16 mg/dL Normal 7-18 [facility] Comment on above: Performed By: #### GFR #### [facility] [address] [place] [address] Chloride [Moles/Vol] 101 mmol/L Normal 98-107 [facility] Comment on above: Performed By: #### GFR #### [facility] [address] [place] [address] Potassium [Moles/Vol] 4.1 mmol/L Normal 3.5-5.1 [facility] Comment on above: Performed By: #### GFR #### [facility] [address] [place] [address] Sodium [Moles/Vol] 135 mmol/L Low 136-145 [facility] Comment on above: Performed By: #### GFR #### [place] [address] Hemogram on 08-30-2018 Erythrocyte distribution width 12.8 % Normal 11.7-14.4 [facility] (RBC) [Ratio] Comment on above: Performed By: #### GFR #### [place] [address] Hematocrit (Bld) [Volume 38.2 % Normal 34.1-44.9 [facility] fraction] Comment on above: Performed By: #### GFR #### [place] [address] Hemoglobin (Bld) [Mass/Vol] 12.9 g/dL Normal 11.2-15.7 [facility] Comment on above: Performed By: #### GFR #### [facility] [address] [place] [address] MCH (RBC) [Entitic mass] 32.4 pg High 25.6-32.2 [facility] Comment on above: Performed By: #### GFR #### [place] [address] MCHC (RBC) [Mass/Vol] 33.8 % Normal 31.6-34.8 [facility] Comment on above: Performed By: #### GFR #### [facility] [address] [place], [place] [address] MCV (RBC) [Entitic vol] 96.0 fL High 79.4-94.[address] [facility] Comment on above: Performed By: #### GFR #### [facility] [address] [place] [address] Platelet mean volume (Bld) [Entitic 9.3 fL Low 9.4-[address] [facility] vol] Comment on above: Performed By: #### GFR #### [facility] [address] [place] [address] Platelets (Bld) [#/Vol] 377 thou/cmm High 182-[address] [facility] Comment on above: Performed By: #### GFR #### [facility] [address] [address] RBC (Bld) [#/Vol] 3.98 mil/cmm Normal 3.93-5.22 [facility] Comment on above: Performed By: #### GFR #### [facility] [address] [place] [address] RDW SD 45.3 fl Normal 36.4-46.3 [facility] Comment on above: Performed By: #### GFR #### [facility] [address] [place] [address] WBC (Bld) [#/Vol] 5.85 thou/cmm Normal 3.98-10.04 [facility] Comment on above: Performed By: #### GFR #### [facility] [address] [place] [address] MDRD GFR on 08-30-2018 GFR/1.73 sq M predicted mL/min/{1.73_m2} Normal >60mL/min/1.7 3m2 [facility] among non-blacks MDRD System (S/P/Bld) [Vol rate/Area] Comment on above: Result Comment: If the patie nt is , multiply the result by 1.210. Performed By: #### GFR #### [facility] [address] [place] [address] Basic Panel on 08-29-2018 Creatinine [Mass/Vol] 0.50 mg/dL Low 0.51-0.95 [facility] Comment on above: Performed By: #### GFR #### [facility] [address] [place] [address] Anion gap [Moles/Vol] 8 mmol/L Normal 8-16 [facility] Comment on above: Performed By: #### GFR #### [facility] [address] [place], [place] [address] CO2 [Moles/Vol] 28 mmol/L Normal 21-32 [facility] Comment on above: Performed By: #### GFR #### [facility] [address] [place] [address] Urea nitrogen [Mass/Vol] 13 mg/dL Normal 7-18 [facility] Comment on above: Performed By: #### GFR #### [facility] [address] [place] [address] Calcium [Mass/Vol] 8.4 mg/dL Low 8.5-10.1 [facility] Comment on above: Performed By: #### GFR #### [facility] [address] [place] [address] Glucose [Mass/Vol] 90 mg/dL Normal 70-99 [facility] Comment on above: Performed By: #### GFR #### [facility] [address] [place] [address] Chloride [Moles/Vol] 101 mmol/L Normal 98-107 [facility] Comment on above: Performed By: #### GFR #### [facility] [address] [place] [address] Potassium [Moles/Vol] 4.1 mmol/L Normal 3.5-5.1 [facility] Comment on above: Performed By: #### GFR #### [facility] [address] [place] [address] Sodium [Moles/Vol] 133 mmol/L Low 136-145 [facility] Comment on above: Performed By: #### GFR #### [facility] [address] [place] [address] Hemogram on 08-29-2018 Erythrocyte distribution width 12.6 % Normal 11.7-14.4 [facility] (RBC) [Ratio] Comment on above: Performed By: #### GFR #### [facility] [address] [place] [address] Hematocrit (Bld) [Volume 36.5 % Normal 34.1-44.9 [facility] fraction] Comment on above: Performed By: #### GFR #### [facility] [address] [place] [address] Hemoglobin (Bld) [Mass/Vol] 12.3 g/dL Normal 11.2-15.7 [facility] Comment on above: Performed By: #### GFR #### [place] [address] MCH (RBC) [Entitic mass] 32.2 pg Normal 25.6-32.2 [facility] Comment on above: Performed By: #### GFR #### [place] [address] MCHC (RBC) [Mass/Vol] 33.7 % Normal 31.6-34.8 [facility] Comment on above: Performed By: #### GFR #### [place] [address] MCV (RBC) [Entitic vol] 95.5 fL High 79.4-94.[address] [facility] Comment on above: Performed By: #### GFR #### [place] [address] Platelet mean volume (Bld) 9.5 fL Normal 9.4-12.3 [facility] [Entitic vol] Comment on above: Performed By: #### GFR #### [place] [address] Platelets (Bld) [#/Vol] 346 thou/cmm Normal 182-[address] [facility] Comment on above: Performed By: #### GFR #### [place] [address] RBC (Bld) [#/Vol] 3.82 mil/cmm Low 3.93-5.22 [facility] Comment on above: Performed By: #### GFR #### [facility] [address] [place] [address] RDW SD 44.1 fl Normal 36.4-46.3 [facility] Comment on above: Performed By: #### GFR #### [facility] [address] [place] [address] WBC (Bld) [#/Vol] 5.69 thou/cmm Normal 3.98-10.04 [facility] Comment on above: Performed By: #### GFR #### [place] [address] Basic Panel on 08-28-2018 Creatinine [Mass/Vol] 0.65 mg/dL Normal 0.51-0.95 [facility] Comment on above: Performed By: #### P8 #### [facility] [address] [place] [address] Anion gap [Moles/Vol] 10 mmol/L Normal 8-16 [facility] Comment on above: Performed By: #### P8 #### [place] [address] CO2 [Moles/Vol] 26 mmol/L Normal 21-32 [facility] Comment on above: Performed By: #### P8 #### [place] [address] Urea nitrogen [Mass/Vol] 28 mg/dL High 7-18 [facility] Comment on above: Performed By: #### P8 #### [facility] [address] [place] [address] Calcium [Mass/Vol] 8.6 mg/dL Normal 8.5-10.1 [facility] Comment on above: Performed By: #### P8 #### [facility] [address] [place] [address] Glucose [Mass/Vol] 89 mg/dL Normal 70-99 [facility] Comment on above: Performed By: #### P8 #### [facility] [address] [address] Chloride [Moles/Vol] 103 mmol/L Normal 98-107 [facility] Comment on above: Performed By: #### P8 #### [facility] [address] [place] [address] Potassium [Moles/Vol] 4.0 mmol/L Normal 3.5-5.1 [facility] Comment on above: Performed By: #### P8 #### [facility] [address] [place] [address] Sodium [Moles/Vol] 135 mmol/L Low 136-145 [facility] Comment on above: Performed By: #### P8 #### [facility] [address] [place] [address] Hemogram on 08-28-2018 Erythrocyte distribution width 13.0 % Normal 11.7-14.4 [facility] (RBC) [Ratio] Comment on above: Performed By: #### P8 #### [facility] [address] [place] [address] Hematocrit (Bld) [Volume 34.9 % Normal 34.1-44.9 [facility] fraction] Comment on above: Performed By: #### P8 #### [facility] [address] [place] [address] Hemoglobin (Bld) [Mass/Vol] 11.8 g/dL Normal 11.2-15.7 [facility] Comment on above: Performed By: #### P8 #### [facility] [address] [place] [address] MCH (RBC) [Entitic mass] 32.5 pg High 25.6-32.2 [facility] Comment on above: Performed By: #### P8 #### [facility] [address] [place] [address] MCHC (RBC) [Mass/Vol] 33.8 % Normal 31.6-34.8 [facility] Comment on above: Performed By: #### P8 #### [facility] [address] [place] [address] MCV (RBC) [Entitic vol] 96.1 fL High 79.4-94.[address] [facility] Comment on above: Performed By: #### P8 #### [facility] [address] [place] [address] Platelet mean volume (Bld) 9.7 fL Normal 9.4-12.3 [facility] [Entitic vol] Comment on above: Performed By: #### P8 #### [facility] [address] [place], [place] [address] Platelets (Bld) [#/Vol] 357 thou/cmm Normal 182-[address] [facility] Comment on above: Performed By: #### P8 #### [facility] [address] [place] [address] RBC (Bld) [#/Vol] 3.63 mil/cmm Low 3.93-5.22 [facility] Comment on above: Performed By: #### P8 #### [facility] [address] [place] [address] RDW SD 46.2 fl Normal 36.4-46.3 [facility] Comment on above: Performed By: #### P8 #### [facility] [address] [place], [place] [address] WBC (Bld) [#/Vol] 6.36 thou/cmm Normal 3.98-10.04 [facility] Comment on above: Performed By: #### P8 #### [place] [address] Legionella Ag, Urine on 08-28-2018 Legionella Ag, Urine Test performed at [facility] Presumptive negative for L. pneumophilia serogroup 1 a ntigen System in urine, suggesting no recent or current infection. Infection due to Legionella cannot be ruled out since other serogroups and species may cause disease, antigen may not be present in urine in early infection, and the level of antigen present in the urine may be below the detection limit of the test. Comment on above: Performed By: #### GFR #### [facility] [address] [place] [address] Strep pneumoniae Ag on 08-28-2018 Strep pneumoniae Ag Test performed at [facility] Negative for Streptococcus pneumoniae antigen. System Presumptive negative for pneumococcal pneumonia, sugge sting no current or recent pneumococcal infection. Infection due to S. pneumoniae cannot be ruled out since the antigen present in the sample may be below the detection limit of the test. Comment on above: Performed By: #### GFR #### [facility] [address] [place], [place] [address] Total 25-OH Vitamin D on 08-28-2018 Total 25-OH Vitamin D 15.7 ng/mL Low 30.0-100.0 [facility] Comment on above: Performed By: #### GFR #### [facility] [address] [place], [place] [address] Basic Panel on 08-27-2018 Creatinine [Mass/Vol] 0.56 mg/dL Normal 0.51-0.95 [facility] Comment on above: Performed By: #### P8 #### [address] [address] Glucose [Mass/Vol] 92 mg/dL Normal 70-99 [facility] Comment on above: Performed By: #### P8 #### [address] [address] Urea nitrogen [Mass/Vol] 27 mg/dL High 7-18 [facility] Comment on above: Performed By: #### P8 #### [facility] [address] [place], [place] [address] Anion gap [Moles/Vol] 12 mmol/L Normal 8-16 [facility] Comment on above: Performed By: #### P8 #### [address] [address] Calcium [Mass/Vol] 8.7 mg/dL Normal 8.5-10.1 [facility] Comment on above: Performed By: #### P8 #### [facility] [address] [place], [place] [address] CO2 [Moles/Vol] 25 mmol/L Normal 21-32 [facility] Comment on above: Performed By: #### P8 #### [address] [address] Chloride [Moles/Vol] 102 mmol/L Normal 98-107 [facility] Comment on above: Performed By: #### P8 #### [facility] [address] [place] [address] Potassium [Moles/Vol] 4.0 mmol/L Normal 3.5-5.1 [facility] Comment on above: Performed By: #### P8 #### [facility] [address] [place] [address] Sodium [Moles/Vol] 135 mmol/L Low 136-145 [facility] Comment on above: Performed By: #### P8 #### [facility] [address] [place] [address] Blood Gas Arterial on 08-27-2018 Base Excess -1.3 mmol/L Normal -3.0-3.0 [facility] Comment on above: Performed By: #### P8 #### [facility] [address] [place] [address] FIO2 Value Not Given Normal [facility] Comment on above: Performed By: #### P8 #### [facility] [address] [place] [address] HCO3 (Bld) [Moles/Vol] 23.8 mmol/L Normal 21.0-28.0 [facility] Comment on above: Performed By: #### P8 #### [facility] [address] [address] O2% Sat Arterial 91.4 % Low 96.0-100.[address] [facility] Comment on above: Performed By: #### P8 #### [facility] [address] [place] [address] PCO2 Arterial 42.6 mm Hg Normal 35.0-45.0 [facility] Comment on above: Performed By: #### P8 #### [facility] [address] [place] [address] pH Arterial 7.363 Normal 7.350-7.450 [facility] Comment on above: Performed By: #### P8 #### [facility] [address] [place] [address] PO2 Arterial 64.6 mm Hg Low 83.0-108.0 [facility] Comment on above: Performed By: #### P8 #### [place] [address] Cult and Smr Respiratory on 08-27-2018 Cult and Smr Respiratory Test performed at [facility] nter Normal [facility] Normal oropharyngeal mercy present. System Few Gram positive cocci in pairs Rare Mixed mercy Many Polymorphonuclear leukocytes Few Mononuclear cells Few Squamous epithelial cells Comment on above: Performed By: #### P8 #### [place] [address] Hemogram on 08-27-2018 Erythrocyte distribution width 13.0 % Normal 11.7-14.4 [facility] (RBC) [Ratio] Comment on above: Performed By: #### CBC1 #### [place] [address] Hematocrit (Bld) [Volume 38.6 % Normal 34.1-44.9 [facility] fraction] Comment on above: Performed By: #### CBC1 #### [place] [address] Hemoglobin (Bld) [Mass/Vol] 13.0 g/dL Normal 11.2-15.7 [facility] Comment on above: Performed By: #### CBC1 #### [place] [address] MCH (RBC) [Entitic mass] 32.5 pg High 25.6-32.2 [facility] Comment on above: Performed By: #### CBC1 #### [place] [address] MCHC (RBC) [Mass/Vol] 33.7 % Normal 31.6-34.8 [facility] Comment on above: Performed By: #### CBC1 #### [place] [address] MCV (RBC) [Entitic vol] 96.5 fL High 79.4-94.[address] [facility] Comment on above: Performed By: #### CBC1 #### [place] [address] Platelet mean volume (Bld) 9.6 fL Normal 9.4-12.3 [facility] [Entitic vol] Comment on above: Performed By: #### CBC1 #### [facility] [address] [place], [place] [address] Platelets (Bld) [#/Vol] 356 thou/cmm Normal 182-[address] [facility] Comment on above: Performed By: #### CBC1 #### [facility] [address] [place] [address] RBC (Bld) [#/Vol] 4.00 mil/cmm Normal 3.93-5.22 [facility] Comment on above: Performed By: #### CBC1 #### [facility] [address] [address] RDW SD 46.7 fl High 36.4-46.3 [facility] Comment on above: Performed By: #### CBC1 #### [facility] [address] [address] WBC (Bld) [#/Vol] 8.84 thou/cmm Normal 3.98-10.04 [facility] Comment on above: Performed By: #### CBC1 #### [facility] [address] [place] [address] Ionized Calcium on 08-27-2018 Ionized Ca,PH7.4 4.49 mg/dL Low 4.61-5.[address] [facility] Comment on above: Performed By: #### P8 #### [facility] [address] [place] [address] pH (Bld) 7.358 [pH] Normal 7.320-7.430 [facility] Comment on above: Performed By: #### P8 #### [facility] [address] [place] [address] Ionized Calcium 4.59 mg/dL Low 4.61-5.17 [facility] Comment on above: Performed By: #### P8 #### [facility] [address] [place], [place] [address] LD,Total Blood on 08-27-2018 LD,Total Blood 153 U/L Normal 84-246 [facility] Comment on above: Performed By: #### P8 #### [facility] [address] [place] [address] MRSA Screen on 08-27-2018 MRSA DNA DEVAN+probe Ql Test performed at [facility] r Normal [facility] (Unsp spec) No MRSA detected. System Comment on above: Performed By: #### GFR #### [facility] [address] [place] [address] Magnesium Blood on 08-27-2018 Magnesium [Mass/Vol] 1.9 mg/dL Normal 1.6-2.6 [facility] Comment on above: Performed By: #### P8 #### [facility] [address] [place] [address] Phosphorus Blood on 08-27-2018 Phosphate [Mass/Vol] 5.3 mg/dL High 2.5-4.9 [facility] Comment on above: Performed By: #### P8 #### [facility] [address] [address] Prealbumin on 08-27-2018 Prealbumin [Mass/Vol] 14.1 mg/dL Low 20.0-40.0 [facility] Comment on above: Performed By: #### P8 #### [facility] [address] [place] [address] Total Protein on 08-27-2018 Protein [Mass/Vol] 6.1 g/dL Low 6.4-8.2 [facility] Comment on above: Performed By: #### P8 #### [facility] [address] [address] Activated PTT on 08-26-2018 aPTT Coag (Bld) [Time] 25.1 s Normal 23.0-32.4 [facility] Comment on above: Result Comment: Unfractionat ed Heparin Therapeutic Ranges: Standard Heparin Nomogram: 53 to 78 seconds (anti-Xa le anjana of 0.3 to 0.7 U/mL) Low Dose/ACS Nomogram: 49 to 67 seconds (anti-Xa le anjana of 0.2 to 0.5 U/mL) Stroke Treatment Nomogram: 49 to 67 seconds (anti-Xa le anjana of 0.2 to 0.5 U/mL) Note: The APTT therapeutic r duarte has been determined for the current lot of laboratory AP TT reagent in use throughout the [facility]. Performed By: #### APTT #### [facility] [address] [place], [place] [address] Ammonia on 08-26-2018 Ammonia (P) [Mass/Vol] 38 umol/L Critically high 11-32 [facility] Comment on above: Performed By: #### ANDI ### # [facility] [address] [place], [place] [address] Basic Panel on 08-26-2018 Creatinine [Mass/Vol] 0.63 mg/dL Normal 0.51-0.95 [facility] Comment on above: Performed By: #### P8 #### [facility] [address] [place], [place] [address] Urea nitrogen [Mass/Vol] 26 mg/dL High 7-18 [facility] Comment on above: Performed By: #### P8 #### [facility] [address] [place], [place] [address] Anion gap [Moles/Vol] 9 mmol/L Normal 8-16 [facility] Comment on above: Performed By: #### P8 #### [facility] [address] [place], [place] [address] Calcium [Mass/Vol] 8.6 mg/dL Normal 8.5-10.1 [facility] Comment on above: Performed By: #### P8 #### [facility] [address] [place], [place] [address] CO2 [Moles/Vol] 25 mmol/L Normal 21-32 [facility] Comment on above: Performed By: #### P8 #### [facility] [address] [place], [place] [address] Glucose [Mass/Vol] 97 mg/dL Normal 70-99 [facility] Comment on above: Performed By: #### P8 #### [facility] [address] [place], [place] [address] Chloride [Moles/Vol] 103 mmol/L Normal 98-107 [facility] Comment on above: Performed By: #### P8 #### [facility] [address] [address] Potassium [Moles/Vol] 3.7 mmol/L Normal 3.5-5.1 [facility] Comment on above: Performed By: #### P8 #### [facility] [address] [address] Sodium [Moles/Vol] 133 mmol/L Low 136-145 [facility] Comment on above: Performed By: #### P8 #### [facility] [address] [address] Hemogram on 08-26-2018 Erythrocyte distribution width 12.9 % Normal 11.7-14.4 [facility] (RBC) [Ratio] Comment on above: Performed By: #### CBC1 #### [facility] [address] [address] Hematocrit (Bld) [Volume 35.8 % Normal 34.1-44.9 [facility] fraction] Comment on above: Performed By: #### CBC1 #### [facility] [address] [place] [address] Hemoglobin (Bld) [Mass/Vol] 11.9 g/dL Normal 11.2-15.7 [facility] Comment on above: Performed By: #### CBC1 #### [facility] [address] [place] [address] MCH (RBC) [Entitic mass] 32.4 pg High 25.6-32.2 [facility] Comment on above: Performed By: #### CBC1 #### [facility] [address] [place] [address] MCHC (RBC) [Mass/Vol] 33.2 % Normal 31.6-34.8 [facility] Comment on above: Performed By: #### CBC1 #### [facility] [address] [place] [address] MCV (RBC) [Entitic vol] 97.5 fL High 79.4-94.[address] [facility] Comment on above: Performed By: #### CBC1 #### [facility] [address] [place] [id number] Platelet mean volume (Bld) 9.5 fL Normal 9.4-12.3 [facility] [Entitic vol] Comment on above: Performed By: #### CBC1 #### [facility] [address] [place] [id number] Platelets (Bld) [#/Vol] 297 thou/cmm Normal 182-[address] [facility] Comment on above: Performed By: #### CBC1 #### [facility] [address] [place] [id number] RBC (Bld) [#/Vol] 3.67 mil/cmm Low 3.93-5.22 [facility] Comment on above: Performed By: #### CBC1 #### [facility] [address] [place] [address] RDW SD 46.5 fl High 36.4-46.3 [facility] Comment on above: Performed By: #### CBC1 #### [facility] [address] [place] [id number] WBC (Bld) [#/Vol] 6.27 thou/cmm Normal 3.98-10.04 [facility] Comment on above: Performed By: #### CBC1 #### [facility] [address] [place] [id number] Protime on 08-26-2018 INR Coag (PPP) [Relative time] 1.04 {INR} Normal 0.90-1.30 [facility] Comment on above: Result Comment: Vitamin K An tagonist (VKA) Therapeutic Range: INR 2 to 3 (Target INR of 2.5) Note: For patients treated w ith VKA drugs, such as warfarin, the [employer] 2012 Guideline recommends a therapeutic INR range of 2 to 3 (target INR of 2.5). This recommendation includes high -risk patients with antiphospholipid syndrome with previous arter ial or venous thromboembolism, current-generation mechanica l or bioprosthetic aortic heart valve replacement. VKA Therapeutic Range for so me Mechanical Valve Replacement: INR 2.5 to 3.5 (Target INR o f 3) Note: Patients with race car mechanic al aortic valve replacement and additional risk factors for thromboembolic events (atrial fibrillation, previous throm boembolism, LV dysfunction, hypercoagulable conditions) or an older generation mechanical AVR (i.e., ball in-Cage) or any mechanical MVR should have a INR therapeutic range of 2 .5 to 3.5 target INR of 3). Mariana MARIA, et al. Chest 2012 ; 141:7S-47S Sravani NOLEN et al. [facility] 20 ; 70: 252-289 Performed By: #### PT #### [facility] [address] [place], [place] [address] PT Coag (PPP) [Time] 10.8 s Normal 9.7-13.0 [facility] Comment on above: Performed By: #### PT #### [address] [address] Basic Panel on 08-25-2018 Creatinine [Mass/Vol] 0.43 mg/dL Low 0.51-0.95 [facility] Comment on above: Performed By: #### P8 #### [address] [address] Urea nitrogen [Mass/Vol] 15 mg/dL Normal 7-18 [facility] Comment on above: Performed By: #### P8 #### [facility] [address] [place], [place] [address] Anion gap [Moles/Vol] 13 mmol/L Normal 8-16 [facility] Comment on above: Performed By: #### P8 #### [address] [address] Calcium [Mass/Vol] 8.7 mg/dL Normal 8.5-10.1 [facility] Comment on above: Performed By: #### P8 #### [facility] [address] [place], [place] [address] CO2 [Moles/Vol] 23 mmol/L Normal 21-32 [facility] Comment on above: Performed By: #### P8 #### [facility] [address] [place], [place] [address] Chloride [Moles/Vol] 100 mmol/L Normal 98-107 [facility] Comment on above: Performed By: #### P8 #### [facility] [address] [place] [address] Glucose [Mass/Vol] 135 mg/dL High 70-99 [facility] Comment on above: Performed By: #### P8 #### [facility] [address] [place], [place] [address] Potassium [Moles/Vol] 3.6 mmol/L Normal 3.5-5.1 [facility] Comment on above: Performed By: #### P8 #### [facility] [address] [place] [address] Sodium [Moles/Vol] 132 mmol/L Low 136-145 [facility] Comment on above: Performed By: #### P8 #### [facility] [address] [place] [address] Hemogram on 08-25-2018 Erythrocyte distribution width 12.7 % Normal 11.7-14.4 [facility] (RBC) [Ratio] Comment on above: Performed By: #### CBC1 #### [facility] [address] [place] [address] Hematocrit (Bld) [Volume 39.7 % Normal 34.1-44.9 [facility] fraction] Comment on above: Performed By: #### CBC1 #### [facility] [address] [place] [address] Hemoglobin (Bld) [Mass/Vol] 13.6 g/dL Normal 11.2-15.7 [facility] Comment on above: Performed By: #### CBC1 #### [facility] [address] [place] [address] MCH (RBC) [Entitic mass] 32.7 pg High 25.6-32.2 [facility] Comment on above: Performed By: #### CBC1 #### [facility] [address] [place] [address] MCHC (RBC) [Mass/Vol] 34.3 % Normal 31.6-34.8 [facility] Comment on above: Performed By: #### CBC1 #### [facility] [address] [place] [address] MCV (RBC) [Entitic vol] 95.4 fL High 79.4-94.[address] [facility] Comment on above: Performed By: #### CBC1 #### [facility] [address] [place] [address] Platelet mean volume (Bld) 9.6 fL Normal 9.4-12.3 [facility] [Entitic vol] Comment on above: Performed By: #### CBC1 #### [facility] 1 [place] [address] Platelets (Bld) [#/Vol] 366 thou/cmm Normal 182-[address] [facility] Comment on above: Performed By: #### CBC1 #### [facility] [address] [place] [address] RBC (Bld) [#/Vol] 4.16 mil/cmm Normal 3.93-5.22 [facility] Comment on above: Performed By: #### CBC1 #### [facility] [address] [place] [address] RDW SD 43.9 fl Normal 36.4-46.3 [facility] Comment on above: Performed By: #### CBC1 #### [facility] [address] [place] [address] WBC (Bld) [#/Vol] 8.90 thou/cmm Normal 3.98-10.04 [facility] Comment on above: Performed By: #### CBC1 #### [facility] 1 [place] [id number] Vital Signs Date Time Vital Sign Value Performing Facility Clinician 12-13-2021 Diastolic blood 88 mm[Hg] Selwyn Mejias MD [facility] 10: pressure Work Phone: 12-13-2021 Systolic blood 122 mm[Hg] Selwyn Mejias MD [facility] 10:40 pressure Work Phone: 12-13-2021 Body weight 48.53 kg Selwyn Mejias MD [facility] 10: Work Phone: 12-13-2021 Heart rate 97 /min Selwyn Mejias MD [facility] 10: Work Phone: 12-13-2021 SaO2% (BldA) [Mass 91 % Selwyn Mejias MD [facility] 10:040 fraction] Work Phone: 08-19-2021 Body height 161.3 cm Lacy Manzanares ELECTRIC POWER LINE REPAIRER.[facility] [id number] Work Phone: 08-19-2021 Body weight 51.71 kg Lacy Manzanares ELECTRIC POWER LINE REPAIRER.[facility] [id number] Work Phone: 08-19-2021 Diastolic blood 88 mm[Hg] Lacy Manzanares ELECTRIC POWER LINE REPAIRER.[facility] [id number] pressure Work Phone: 08-19-2021 Heart rate 93 /min Lacy Manzanares ELECTRIC POWER LINE REPAIRER.[facility] [id number] Work Phone: 08-19-2021 Respiratory rate 16 /min Lacy Manzanares ELECTRIC POWER LINE REPAIRER.[facility] [id number] Work Phone: 08-19-2021 SaO2% (BldA) [Mass 94 % Lacy Manzanares ELECTRIC POWER LINE REPAIRER.[facility] [id number] fraction] Work Phone: 08-19-2021 Systolic blood 132 mm[Hg] Lacy Manzanares ELECTRIC POWER LINE REPAIRER.DUPLICATION SPECIALIST [facility] [id number] pressure Work Phone: 08-27-2018 Body temperature 36.4 Deg Raya [facility] 19:0400 Health System Comment on above: Performed By: #### P8 #### [address] [address] Encounters Encounter Date Encounter Type Care Provider Facility Start: 03-23-2022 ambulatory ERIN DILLARD Facility:[facility] Start: 01-30-2022 Telephone encounter Selwyn Mejias MD Mobile Services Work Phone: Comment on above: [phone]; Initial Consult Start: 01-27-2022 Telephone encounter Selwyn Mejias MD Interna l Medicine Work Phone: [place] Comment on above: Medication Problem; Patient Update Start: 01-25-2022 Telephone encounter Selwyn Mejias MD Interna l Medicine Work Phone: [place] Comment on above: [facility] (Verbal order/med lis t/palliative care order) Start: 01-23-2022 Telephone encounter Selwyn Mejias MD Interna l Medicine Work Phone: [place] Comment on above: OT Plan of Care Update Start: 01-20-2022 Telephone encounter Selwyn Mejias MD Interna l Medicine Work Phone: [place] Comment on above: plan of care Start: 12-15-2021 Telephone encounter Selwyn Mejias MD Interna l Medicine Work Phone: [place] Comment on above: Biopsy of lung Start: 12-13-2021 ambulatory SELWYN MEJIAS Facility:[facility] End: 12-13-2021 Hospital Start: 12-13-2021 Office outpatient Selwyn Mejias MD Internal Medicine [place] End: 12-13-2021 visit 25 minutes Work Phone: Comment on above: Essential hypertension (Prim roberta Dx); Lung mass; PAD (peripheral artery disea se) ([facility]); Compression fracture of T5 v ertebra, sequela; Tobacco use disorder; Gastroesophageal reflux dise ase without esophagitis; COPD, severe ([facility]); Cough; Cervical spondylosis without myelopathy; Lumbosacral spondylosis with out myelopathy; Compression fracture of T5 v ertebra with routine healing, subsequent encounter; Closed fracture of multiple ribs of right side with routine healing; Chronic respiratory failure with hypoxia ([facility]); Protein-calorie malnutrition , unspecified severity ([facility]) Start: 12-05-2021 Telephone encounter Selwyn Mejias MD Interna l Medicine Work Phone: [place] Comment on above: Patient Update (unable to do lung biopsy ) Start: 12-02-2021 ambulatory March M Aster RN Ambulator y Care Management Comment on above: Community Monitoring Outre[facility] (Initial CDM Outreach/ [facility]) Start: 11-25-2021 Telephone encounter Selwyn Mejias MD Interna l Medicine Work Phone: [place] Comment on above: Patient Update; Patient Ques tion Start: 11-23-2021 ambulatory Joaquim Rodarte RN Ambulator y Care Management Comment on above: Community Monitoring Outreac h (Initial CDM Outreach/ [facility]/) Start: 11-07-2021 Telephone encounter Selwyn Mejias MD Interna l Medicine Work Phone: [place] Comment on above: Patient Update Start: 11-02-2021 ambulatory Selwyn Mejias MD Internal Tx dicine [place] Work Phone: [place] Start: 09-28-2021 ambulatory Selwyn Mejias MD Internal Tx dicine [place] Work Phone: Comment on above: Chest Pain; Shortness of Thalia ath Start: 09-01-2021 Telephone encounter aLcy Manzanares ELECTRIC POWER LINE REPAIRER.DUPLICATION SPECIALIST Inte rnal Medicine Work Phone: [place] Comment on above: Results, Lab Start: 08-31-2021 [facility] Facility:[facility] End: 08-31-2021 Hospital Start: 08-23-2021 Telephone encounter Jorge Lonnie INSTALLER [employer] Nav[employer]at ion Comment on above: Social Work Services Start: 08-19-2021 [facility] Facility:[facility] End: 08-20-2021 Hospital Start: 08-19-2021 Patient encounter Lacyfatoumata Manzanares ELECTRIC POWER LINE REPAIRER.DUPLICATION SPECIALIST [employer] Medicine [place] End: 08-19-2021 procedure Work Phone: Comment on above: COPD, severe (HCC) (Primary Dx); Encounter for screening for lung cancer; Need for shingles vaccine; Encounter for immunization; Chronic bronchitis, unspecif ied chronic bronchitis type ([facility]); Tobacco use disorder; Hypoxia; Gastroesophageal reflux dise ase without esophagitis; PAD (peripheral artery disea se) ([facility]); Gastroesophageal reflux dise ase without esophagitis; Compression fracture of T5 v ertebra, initial encounter (HCC); Closed fracture of multiple ribs of right side with routine healing; Need for financial support; Essential hypertension; Reactive depression; Generalized anxiety disorder Start: 08-18-2021 Refill Selwyn Mejias MD Internal Me to[place] Work Phone: Comment on above: Refill Request Start: 07-05-2021 Telephone encounter Selwyn Mejias MD Family Medicine Work Phone: [place] Comment on above: Refill Request Procedures Date Procedure Procedure Detail Performing Clin ician Start: 07-01-2013 Mammography Selwyn Mejias MD Work Phone: Start: 09-15-2008 Colonoscopy Selwyn Mejias MD Work Phone: Plan of Treatment Date Care Activity Detail Author Start: 08-24-2028 Urine microalbumin profile DTAP,TDAP,TD (3 - T d or [facility] Tdap) Start: 08-31-2026 LIPID SCREEN LIPID SCREEN [facility] Start: 08-31-2024 DIABETES SCREEN DIABETES SCREEN [facility] Start: 12-13-2022 ANNUAL PCP TEAM CHRONIC ANNUAL PCP TEAM [facility] DISEASE VISIT DISEASE VISIT Start: 03-16-2022 LIPID SCREEN LIPID SCREEN [facility] Start: 12-13-2021 ANNU[facility] Start: 11-24-2021 Influenza vaccination [facility] Start: 11-22-2021 ANNUAL PCP TEAM CHRONIC ANNUAL PCP TEAM [facility] DISEASE VISIT DISEASE VISIT Start: 11-22-2021 COLORECTAL CANCER COLORECTAL CANCER [facility] SCREENING SCREENING Comment on above: Postponed from 1998 (D eclined at this time) Start: 11-11-2021 PNEUMOCOCCAL: 65+ (2 - PNEUMOCOCCAL: 65+ (2 - [facility] PCV) PCV) Comment on above: Postponed from 01/10/2013 (D eclined at this time) Start: 11-11-2021 PNEUMOVAX AGE 65 AND OVER PNEUMOVAX AGE 65 AND OVER [facility] WITH 5YR LOOKBACK (#1) WITH 5YR LOOKBACK (#1) Comment on above: Postponed from 2018 (D eclined at this time) Start: 08-30-2021 DIABETES SCREEN [facility] Start: 08-23-2021 CBC W Auto CBC + DIFF Lab Routine [facility] End: 08-04-2022 Differential panel - Chronic bronchitis, Work Ph one: Blood unspecified chronic bronchitis type (HCC) Tobacco use disorder Gastroesophageal reflux disease without esophagitis Gastroesophageal reflux disease without esophagitis Expected: 08/23/2021 (Approximate), Expires: 08/04/2022 Comment on above: Expected: 08/23/2021 (Approx imate), Expires: 08/04/2022 Start: 08-23-2021 Comprehensive COMP METABOLIC PANEL Lab [facility] End: 08-04-2022 metabolic 2000 panel Routine Chronic Work Phone: - Serum or Plasma bronchitis, unspecified chronic bronchitis type (HCC) Tobacco use disorder Gastroesophageal reflux disease without esophagitis Gastroesophageal reflux disease without esophagitis Expected: 08/23/2021 (Approximate), Expires: 08/04/2022 Comment on above: Expected: 08/23/2021 (Approx imate), Expires: 08/04/2022 Start: 08-23-2021 Magnesium MAGNESIUM BLD Lab [facility] End: 08-04-2022 [Mass/volume] in Serum Routine Reactive Work Misty ne: or Plasma depression Generalized anxiety disorder Expected: 08/23/2021 (Approximate), Expires: 08/04/2022 Comment on above: Expected: 08/23/2021 (Approx imate), Expires: 08/04/2022 Start: 08-23-2021 Thyrotropin TSH BLD Lab Routine [facility] End: 08-04-2022 [Units/volume] in Reactive depression Work Phone : Serum or Plasma Generalized anxiety disorder Expected: 08/23/2021 (Approximate), Expires: 08/04/2022 Comment on above: Expected: 08/23/2021 (Approx imate), Expires: 08/04/2022 Start: 08-23-2021 VITAMIN B12 BLOOD VITAMIN B12 BLOOD Lab [facility] End: 08-04-2022 Routine Reactive Work Phone: depression Generalized anxiety disorder Expected: 08/23/2021 (Approximate), Expires: 08/04/2022 Comment on above: Expected: 08/23/2021 (Approx imate), Expires: 08/04/2022 Start: 03-26-2021 ADVANCE DIRECTIVE ADVANCE DIRECTIVE [facility] DISCUSSION DISCUSSION Start: 03-03-2021 COVID-19 VACCINE (2 - COVID-19 VACCINE (2 - Cl [facility] Booster for Mark Booster for Mark series) series) Start: 12-24-2020 BP CONTROLLED (<130/80) BP CONTROLLED (<130/80 ) [facility] Start: 09-15-2018 Colonoscopy COLONOSCOPY [facility] Start: 09-15-2018 COLORECTAL CANCER COLORECTAL CANCER [facility] SCREENING SCREENING Start: 2018 BONE DENSITY BONE DENSITY [facility] Start: 07-01-2014 Mammography MAMMOGRAM [facility] Start: 01-10-2013 PNEUMOCOCCAL: 65+ (2 - PNEUMOCOCCAL: 65+ (2 - [facility] PCV) PCV) Start: 08-14-2003 Influenza vaccination LUNG CANCER SCREENING [place] Start: 08-14-2003 SHINGRIX VACCINE (1 of SHINGRIX VACCINE (1 of [facility] 2) 2) Start: 1998 COLOGUARD (FIT-DNA) COLOGUARD (FIT-DNA) [facility] Start: [address] COLONOGRAPHY [facility] Start: 1998 FECAL OCCULT BLOOD FECAL OCCULT BLOOD [facility] Start: 1998 SIGMOIDOSCOPY SIGMOIDOSCOPY [facility] Start: 08-14-1983 Zoledronic acid therapy ALPHA-1 ANTITRYPSIN [place] DEFICIENCY SCREENING Screening mammography bi MALACHI SCREENING Radiology [facility] End: 12-02-2022 2-view breast inc cad Routine Encounter for Work Phone: screening mammogram for breast cancer 1 Occurrences starting 11/02/2021 until 12/02/2022 Comment on above: 1 Occurrences starting 11/02 until 12/02/2022 [facility] Immunizations Immunization Date Immunization Notes Care Provider Facility 08-24-2018 tetanus toxoid, reduced Selwyn Mejias MD [facility] diphtheria toxoid, and Work Phone: Work Phone: acellular pertussis vaccine, adsorbed 01-11-2012 pneumococcal Selwyn Mejias MD [facility] linic polysaccharide vaccine, Work Phone: 23 valent 01-11-2012 tetanus toxoid, reduced Selwyn Mejias MD [facility] diphtheria toxoid, and Work Phone: acellular pertussis vaccine, adsorbed Payers Date Payer Category Payer Unknown [employer] xxxxx [id number] [employer]ELD [employer] MEDIBLUE O [id number] [id number] 2019-Present [phone] [address] 2019 Unknown [employer]M [employer] BLUE [id number] [id number] SHIELD [facility] [id number] 2019-Present [phone] [id number] [place] [address] 2019 Unknown [id number] 2018 Medicaid MEDICAID [facility] MEDICAID [id number] 2018-Present [phone] [address] [place] [address] Medicaid 2018 Medicaid MEDICAID [facility] MEDICAID [id number] 2018-Present [phone] [address] [place] [id number] Medicaid 2018 Medicaid [id number] Social History Date Type Detail Facility Start: 1965 Tobacco smoking status Smokes tobacco [facility] End: 12-13-2021 [facility] Start: 1965 History of tobacco use Cigarette Smoker [facility] Start: 12-13-2020 Alcohol intake Current drinker of [facility] End: 12-13-2021 alcohol (finding) Start: 12-18-2019 History SDOH Alcohol daily; hospital [facility] Comment records noted 6+beers daily but at Aug hospital follow up, was not drinking, occ. Start: 07-15-2019 Tobacco Comment No smoking in childhod [facility] End: 12-13-2021 home.-- Not smoking now given COVID 19 Start: 1955 Sex Assigned At Not on file [facility] Start: 08-08-2021 Exposure to SARS-CoV-2 Not sure [facility] End: 12-13-2021 (event) Start: 07-15-[address] [facility] in End: 12-13-2021 current (pack per day) - Reported Start: 07-15-2019 Tobacco use and Smokeless tobacco [facility] End: 12-13-2021 exposure non-user Work Phone: Clinical Notes 12-18-2019 to 02-07-2022 Telephone Encounter - Lacy Manzanares APRN.CNS - 02/07/2022 1:10 PM ESTTelephone Encounter - Kaylyn Wallace Ma - 01/27/2022 3:28 PM EDTTelephone Encounter - Brittany Magana LPN - 01/20/2022 4:50 PM EDT Note Date & Type Note Facility 02-07-2022 Miscellaneous Formatting of this note migh t be different from the original. [facility] Notes noted Formatting of this note might be differe nt from the original. Called Deisy, she states that patient has declined all care and kicked them out of her home and states she is not going to take any of her medications Formatting of this note might be differe nt from the original. 1-[facility] 2. [place] palliative care, had seen [facility] previously 11/2021. 3. Send med lis Formatting of this note might be differe nt from the original. Deisy with [facility] HH, nursing requesting the followin)verbal orders for half-way plan of care to see pt 1 time a week for 4 weeks. 2)pt was on hospice and revo ked orders and was admitted to [facility] for exacerbation of her COPD. D/C and they are requesting orders for palliative care. 3)requesting a copy of pt's current med list to be faxed to [phone]. (Deisy states pt has medications all over her house and the need to know what she is to be taking) Aida Nam LPN documented in this encounter 02-01-2022 Miscellaneous Formatting of this note migh t be different from the original. [facility] Notes Noted. Selwyn Mejias MD Formatting of this note might be differe nt from the original. Pt called and is notified of providers message and instructions. Pt voices understanding. Pt called in after Sunday. Scheduled Pt 02/06 at 800 am. Ami Martin RN Formatting of this note might be differe nt from the original. No answer on home phone, LM on cell Formatting of this note might be differe nt from the original. Called and left a voicemail for the Patient to call back and ask for a nurse to receive the providers message. Ami Martin RN Formatting of this note might be differe nt from the original. See if can put in the Sunday open slots 1:20 for 40 minutes Formatting of this note might be differe nt from the original. [facility] Skilled Nurse rashad ramos in and reports they have been having trouble getting Pt to answer the phone, so she went out to do a visit today. She states she was going to do medication teaching wit h the patient, and she said she didn't need that because she wasn't taking her meds and threw them away. Alley states she hadn't thrown them away, but that the med box they had filled was still full. e reports Pt sometimes takes her BP pills. Pt also refused to see half-way anymore. She states their next visit will be to discharge the patient from their services. Pt also states she hasn't fol lowed up with PCP. She said Pt said she would come in on Sunday if someone calls her, but she doesn't want to see the WINE CONSULTANT she wants to see Dr Mejias. documented in this encounter 01-30-2022 Note HNO ID: [id number] [facility] Author: Cesar Rehman [place] Service: ? Author Type: ? Type: Progress Notes Filed: 01/31/2022 10:03 AM Note Text: Attestation signed by Declan Puente RP at 01/31/2022 10:03 AM The patient's case was discussed with yvonne way student who saw the patient with me. Garcia elements of history conf irmed during visit. Agree with findings and plan as outlined by the student. My additions to the note are underlined. Declan Puente, PharmD, MEd, BCPS, CD ZINA Dalia Robbins Viki is identified through a medication adherence outreach initiative based on pharmacy claims data from [employer] (insurer) for EUN medication(s). Patient is reviewed 01/30/22 due to medi cation adherence concerns with the following medications (name, strength): losartan 50mg. -pt being referred to palliative care Per reconcile dispense: 30 days supply Any need for medication refills YES/NO/A ctive: no Outcome of review: (choose one of the op tions selected in excel spreadsheet) - patient declines refill Cesar Rehman 01-30-2022 Note Patient Outreach (PHPOHE) [facility] DREWDALIA Robbins ([id number]) 1955 F Date Time Provider Department 01/30/22 DECLAN PUENTE During your visit today, we recorded the following information about you: Cesar Rehman 01/31/2022 10:03 AM Atteste yulissa Attestation signed by Declan Puente [facility] at 01/31/2022 10:03 AM The patient's case was discussed with yvonne way student who saw the patient with me. Garcia elements of history conf irmed during visit. Agree with findings and plan as outlined by the student. My additions to the note are underlined. Declan Puente, PharmD, MEd, BCPS, CD ZINA Dalia Drew is identified through a medication adherence outreach initiative based on pharmacy claims data from [employer] (insurer) for EUN medication(s). Patient is reviewed 01/30/22 due to medi cation adherence concerns with the following medications (name, strength): losartan 50mg. -pt being referred to palliative care Per reconcile dispense: 30 days supply Any need for medication refills YES/NO/A ctive: no Outcome of review: (choose one of the op tions selected in excel spreadsheet) - patient declines refill Cesar Rehman Allergies As of Date: 01/30/2022 Noted A llergy Reaction WELLBUTRIN SR (BUPROPION) 05/08/2008 1 - Mental Status Change Comments: made me hallucinate Date Reviewed: 12/13/2021 Reviewed by: Kaylyn Wallace Ma - Full y Assessed Prescriptions as of 01/31/2022 - atorvastatin (LIPITOR) 10 mg tablet Take 1 tablet by mouth once daily. - citalopram (CELEXA) 20 mg tablet Take 1 tablet by mouth once daily. - hvblnxsjjbs-hhphbmbxe-zcugxidg (TRELEG Y ELLIPTA) 100-62.5-25 mcg inhalation powder Inhale 1 Puff as instructed once daily. - gabapentin (NEURONTIN) 300 mg capsule Take 1 capsule by mouth twice daily for 90 days. - losartan (COZAAR) 50 mg tablet Take 1 tablet by mouth twice daily. - omeprazole (PRILOSEC) 40 mg capsule Take 1 capsule by mouth once daily. - promethazine (PHENERGAN) 6.25 mg/5 mL syrup Take 5-10 mL by mouth four times daily a s needed for nausea/vomiting (and cough). - HYDROcodone-acetaminophen (NORCO) 5-32 5 mg per tablet [...] daily. - albuterol HFA (VENTOLIN HFA) 90 mcg/ac tuation inhaler Inhale 2 Puffs as instructed every 4 issac rs as needed. -active - Ciclopirox (PENLAC) 8 % solution Apply to affected area once daily. TO AF FECTED AREA. - ketoconazole (NIZORAL) 2 % cream Apply 1 application to affected area onc e daily. To rash on legs and feet for 2 weeks at least and continue for 1 week after rash resolves. - nabumetone (RELAFEN) 500 mg tablet Take 1 tablet by mouth twice daily. - diclofenac sodium (VOLTAREN) 1 % topic al gel Apply 2 grams to affected area four time s daily. - guaiFENesin (MUCINEX) 600 mg 12 hr tab let Take 2 tablets by mouth twice daily as n eeded for Cold/Allergy Symptoms. - COMPOUNDED PRESCRIPTION Overnight pulse oximetry-- J42 Chronic b ravindrachitis, R09.02hypoxemia - cholecalciferol (VITAMIN D3) 1,000 uni t tab tablet Take 1 tablet by mouth once daily. - polyethylene glycol 3350 (MIRALAX, GLY COLAX) 17 gram packet Take 1 Packet by mouth once daily. - thiamine (VITAMIN B1) 100 mg tablet Take 1 tablet by mouth three times daily . - albuterol (PROVENTIL) 2.5 mg /3 mL (0. 083 %) nebulizer solution Use 3 mL via nebulizer every 4 hours as needed for Wheezing/Shortness of Breath. Use over 5-15minutes. - COMPOUNDED PRESCRIPTION Nebulizer for home use. Dx: chronic bron chitis Meds Comments as of 09/02/2018: 09/02/18 The medications are managed by this patient by: PATIENT Janell Menjivar Pharm-T Problem List As Of Date 01/30/2022 Noted Resolved COLLES' FRACTURE-CLOSED [S52.539A] 02/1409/28/2005 RADIAL STYLOID TENOSYNOV [M65.4] 006 09/28/2005 FX LATERAL MALLEOLUS-CLOSE [S82.63XA] 09/18/2007 Chronic bronchitis (HCC) [J42] 7 INSOMNIA, intermittent [G47.00] 12/18/19 07 Tobacco use disorder [F17.200] 7 Acute sinusitis, unspecified [J01.90] 06/13/2017 Reactive depression [F32.9] 02/06/2008 GENERALIZED ANXIETY DIS [F41.1] 02/06/20 08 GLAUCOMA NOS [H40.9] 02/06/2008 ALLERGIC RHINITIS NOS [J30.9] 05/08/2008 FAMILY HX GI MALIGNANCY [Z80.0] 08/26/19 09 DYSPHAGIA NEC [R13.19] 08/25/2008 UNSP ABNORMAL M (more content not includ ed)... 01-30-2022 Miscellaneous Formatting of this note is d ifferent from the original. [facility] Notes Palliative Medicine at Home Referral Ass essment Referral Accepted: Yes, Disc harge Disposition: Home: Timeframe for schedulin-3 weeks Pall Med appropriate diagnosis: Associat ed Diagnoses COPD, severe (HCC) [J44.9] Established with Inpatient Pall Med team : no Reason for consult: introduc tion to services, goals of care, and symptom support Pt was on hospice and revoke d orders and was admitted to [facility] for exacerbation of her COPD. D/C and they are requesting orders for palliative care. Patient declined services from [facility] t eam. Refusing to take medications. Razia English RN January 30, 2022 documented in this encounter 01-23-2022 Miscellaneous Formatting of this note migh t be different from the original. [facility] Notes Noted, agree Formatting of this note might be differe nt from the original. Michelle calling with PT POC. Will be seeing patient for [facility] and gain training, safe transfers and pain management. 1 time a for 1 week 2 times for 2 weeks 1 time for 1 week. documented in this encounter 01-23-2022 Miscellaneous Formatting of this note migh t be different from the original. [facility] Notes noted Formatting of this note might be differe nt from the original. Guillermina with [facility] OT calling to state patient has one-time eval completed only. Patirnt does not require any further OT needs at this time. SpO2 was 96-98% room air during visit today. BP was 138/94 but this was after activity. Patient without any complaints or symptoms. Gabby Herring RN documented in this encounter 01-06-2022 Miscellaneous Formatting of this note migh t be different from the original. [facility] Notes Faxed Formatting of this note might be differe nt from the original. Print completed note to fax as requested . I did not do a preop consult since the request for my note came after she was seen. I did state she may proceed with planned procedure. Formatting of this note might be differe nt from the original. The are requesting office no te dated 12/13 stating she is cleared for biopsy. Office note needs completed and signed, nothing noted about biospy at this time Formatting of this note might be differe nt from the original. Has this been done? If not get paperwork so I can review and send Formatting of this note might be differe nt from the original. Pulmonary Medicine- Dr. Hitesh Bentley office- reports they may schedule another appt for lung biopsy with patient. Reports the 1st time they scheduled with patient, she didn't follow protocol and they had to reschedule, the 2nd time they cancelled due to patient's elevated BP. Will need doctor to sign notes from last ov on 12-13-21 and fax to their office at . Biopsy would have to occur within 30 days of H & P vis it. Once they review the notes will call patient to schedule. documented in this encounter 01-02-2022 Note Patient Outreach ([facility]) [facility] [place] DALIA DREW ([id number]) 1955 F Date Time Provider Department 01/02/22 MARION GRAVES During your visit today, we recorded the following information about you: Marion Graves RN 01/02/2022 1:08 PM Si gned [facility] Enrollment Provider Action/I: h/o COPD I spoke with patient and she is in Palli ative Care/ Hospice She is not sure which one bu t believes she is in Hospice ([facility] [place]) Patient referred by: [facility] Marisol Contact made with patient: Yes - Patient identified by name and . Discussed care with patient Bernardo this is Marion Graves RN and I elizabeth m calling from Selwyn Mejias MD office at the [facility]. I am a R N Principal Administrative Clerk with our [facility] Chronic Disease Management program. Selwyn Mejias MD wanted me to reach out to help you manage your health at home. Our goal is to keep you well at home. We want to help you manage your chronic disease by providing a safety net of resources around you, getting you the ca re you need in a timely manner, and hopefully keep you out of the ED and hos pital. I will send you a few questions once a week through your [employer] account. It will automatically show up for you to complete. There are simple questions that will help us identify if you have any concerns or symptoms and I will call you to help get what you need. We will be able to connect you, review your symp toms, do an on demand visit, or communicate with Selwyn Mejias MD if needed. I am going to sign you up for the program now. Enrollment Questions: Let's get you enrolled in the program. N o, reason: Other: Hospice Closing: Patient does not meet criteria. PCC to [facility] patient in a month. Allergies As of Date: 01/02/2022 Noted A llergy Reaction WELLBUTRIN SR (BUPROPION) 05/08/2008 1 - Mental Status Change Comments: made me hallucinate Date Reviewed: 12/13/2021 Reviewed by: Kaylyn Wallace Ma - Full y Assessed Reason for Visit: Community Monitoring Outreach [Other] Cm t: [facility] Enrollment Prescriptions as of 01/02/2022 - atorvastatin (LIPITOR) 10 mg tablet Take 1 tablet by mouth once daily. - citalopram (CELEXA) 20 mg tablet Take 1 tablet by mouth once daily. - loumxgvxobj-jqkfpzarj-efgosygb (TRELEG Y ELLIPTA) 100-62.5-25 mcg inhalation powder Inhale 1 Puff as instructed once daily. - gabapentin (NEURONTIN) 300 mg capsule Take 1 capsule by mouth twice daily for 90 days. - losartan (COZAAR) 50 mg tablet Take 1 tablet by mouth twice daily. - omeprazole (PRILOSEC) 40 mg capsule Take 1 capsule by mouth once daily. - promethazine (PHENERGAN) 6.25 mg/5 mL syrup Take 5-10 mL by mouth four times daily a s needed for nausea/vomiting (and cough). - HYDROcodone-acetaminophen (NORCO) 5-32 5 mg per tablet [...] daily. - albuterol HFA (VENTOLIN HFA) 90 mcg/ac tuation inhaler Inhale 2 Puffs as instructed every 4 issac rs as needed. -active - Ciclopirox (PENLAC) 8 % solution Apply to affected area once daily. TO AF FECTED AREA. - ketoconazole (NIZORAL) 2 % cream Apply 1 application to affected area onc e daily. To rash on legs and feet for 2 weeks at least and continue for 1 week after rash resolves. - nabumetone (RELAFEN) 500 mg tablet Take 1 tablet by mouth twice daily. - diclofenac sodium (VOLTAREN) 1 % topic al gel Apply 2 grams to affected area four time s daily. - guaiFENesin (MUCINEX) 600 mg 12 hr tab let Take 2 tablets by mouth twice daily as n eeded for Cold/Allergy Symptoms. - COMPOUNDED PRESCRIPTION Overnight pulse oximetry-- J42 Chronic b yelitza, R09.02hypoxemia - cholecalciferol (VITAMIN D3) 1,000 uni t tab tablet Take 1 tablet by mouth once daily. - polyethylene glycol 3350 (MIRALAX, GLY COLAX) 17 gram packet Take 1 Packet by mouth once daily. - thiamine (VITAMIN B1) 100 mg tablet Take 1 tablet by mouth three times daily . - albuterol (PROVENTIL) 2.5 mg /3 mL (0. 083 %) nebulizer solution Use 3 mL via nebulizer every 4 hours as needed for Wheezing/Shortness of Breath. Use over 5-15minutes. - COMPOUNDED PRESCRIPTION Nebulizer for home use. Dx: chronic bron chitis Meds Comments as of 09/02/2018: 09/02/18 The medications are managed by this patient by: PATIENT Janell Menjivar Pharm-T Problem List As Of Date 01/02/2022 Noted Resolved COLLES' FRACTURE-CLOSED [S52.539A] 02/1409/28/2005 RADIAL STYLOID TENOSYNOV [M65.4] 006 09/28/2005 FX LATERAL MAL (more content not include d)... 01-02-2022 Note HNO ID: [id number] [facility] Author: Marion Graves RN [place] Service: ? Author Type: Registered Nurse Type: Progress Notes Filed: 01/02/2022 1:08 PM Note Text: [facility] Enrollment Provider Action/FYI: h/o COPD I spoke with patient and she is in Palli ative Care/ Hospice She is not sure which one but believes s he is in Hospice ([facility] [place]) Patient referred by: C Marisol Contact made with patient: Yes - Patient identified by name and . Discussed care with patient Bernardo this is Marion Graves RN and I a m calling from Selwyn Mejias MD office at the [facility]. I am a R N Principal Administrative Clerk with our [facility] Chronic Disease Management progr am. Selwyn Mejias MD wanted me to reach out to help you manage your hea lth at home. Our goal is to keep you well at home. We want to help you ma nage your chronic disease by providing a safety net of resources arou nd you, getting you the care you need in a timely manner, and hopefully k eep you out of the ED and hospital. I will send you a few question s once a week through your [employer] account. It will automatically show up f or you to complete. There are simple questions that will help us ident tamara if you have any concerns or symptoms and I will call you to help get what you need. We will be able to connect you, review your symptoms, do an on demand visit, or communicate with Selwyn Mejias MD if needed. I am going to sign you up for the program now. Enrollment Questions: Let's get you enrolled in the program. N o, reason: Other: Hospice Closing: Patient does not meet criteria. PCC to [facility] patient in a month. 12-15-2021 Miscellaneous Formatting of this note migh t be different from the original. [facility] Notes Nurse from [facility] was given pro viders message and verbalized understanding. States patient has had to reschedule 3 times now and not sure if they will reschedule or not. Formatting of this note might be differe nt from the original. Patients BP fine at appointment Taking her meds Should be fine for biopsy Formatting of this note might be differe nt from the original. Donya Nurse from [facility] call ing was unable to do lung biopsy, patient blood pressure is 226/134. Patient said she has not been taking her medications due to no money to get rx. Nurse is having Case vanessa tanner to get involved with the patient also. Nurse is also calling Dr Irene to see if wanting one time dose of medication given to the patient. Aware patient has appt on 12/13 with PCP. documented in this encounter 12-14-2021 Note HNO ID: [id number] [facility] Author: Joaquim Rodarte RN [place] Service: ? Author Type: Registered Nurse Type: Progress Notes Filed: 12/14/2021 2:43 PM Note Text: [facility] Enrollment Provider Action/FYI: 2nd Call to Pt, unable to leave a messag e related to [facility] / Chronic Disease Management program, will provide [facility] info once reached. Patient referred by: [facility] Marisol Contact made with patient: No - 2nd atte mpt to reach patient, left another message: Hi my name is Aster March RN and I am calling from the [facility] on behalf of your PCP, Selwyn Mejias MD. We are excited to share with you a new program to help you manage your health. . I hope you can take the time to speak wi th me. (Keep encounter open for additional two business days in case pat ient calls back. Close encounter if no response by end of second business day) Closing: Could not reach the patient after two at tempted outreaches. Principal Administrative Clerk to retry patient in one week . END OUTREACH Aster March RN December 14, 2021 2:36 PM 12-14-2021 Note Patient Outreach ([facility]) [facility] [place] DALIA DREW ([id number]) 1955 F Date Time Provider Department 12/14/21 JOAQUIM WEBER During your visit today, we recorded the following information about you: Aster March RN 12/14/2021 2:43 PM Signed [facility] CD[facility] Enrollment Provider Action/FYI: 2nd Call to Pt, unable to leave a messag e related to [facility] / Chronic Disease Management program, will provide [facility] info once reached. Patient referred by: [facility] Marisol Contact made with patient: No - 2nd atte mpt to reach patient, left another message: Hi my name is Aster March RN and I am calling from the [facility] on behalf of your PCP, Selwyn Mejias MD. We are excited to share with you a new program to help you manage your health. . I hope you can take the time to speak with me. (Rex sneed encounter open for additional two business days in case patient calls back . Close encounter if no response by end of second business day) Closing: Could not reach the patient after two attempted outreaches. Principal Administrative Clerk to retry patient in one week. END OUTREACH Aster March RN December 14, 2021 2:36 PM Allergies As of Date: 12/14/2021 Noted A llergy Reaction WELLBUTRIN SR (BUPROPION) 05/08/2008 1 - Mental Status Change Comments: made me hallucinate Date Reviewed: 12/13/2021 Reviewed by: Kaylyn Wallace Ma - Full y Assessed Reason for Visit: Community Monitoring Outreach [Other] Cm t: Initial CDM Outreach/ [facility] Prescriptions as of 12/14/2021 - atorvastatin (LIPITOR) 10 mg tablet Take 1 tablet by mouth once daily. - citalopram (CELEXA) 20 mg tablet Take 1 tablet by mouth once daily. - epkclmibiuy-pbevifbux-evaxliya (TRELEG Y ELLIPTA) 100-62.5-25 mcg inhalation powder Inhale 1 Puff as instructed once daily. - gabapentin (NEURONTIN) 300 mg capsule Take 1 capsule by mouth twice daily for 90 days. - losartan (COZAAR) 50 mg tablet Take 1 tablet by mouth twice daily. - omeprazole (PRILOSEC) 40 mg capsule Take 1 capsule by mouth once daily. - promethazine (PHENERGAN) 6.25 mg/5 mL syrup Take 5-10 mL by mouth four times daily a s needed for nausea/vomiting (and cough). - codeine-guaiFENesin (GUAIFENESIN AC) 1 0-100 mg/5 mL syrup Take 5-10 mL by mouth four times daily a s needed for up to 7 days. - HYDROcodone-acetaminophen (NORCO) 5-32 5 mg per tablet [...] daily. - albuterol HFA (VENTOLIN HFA) 90 mcg/ac tuation inhaler Inhale 2 Puffs as instructed every 4 issac rs as needed. -active - Ciclopirox (PENLAC) 8 % solution Apply to affected area once daily. TO AF FECTED AREA. - ketoconazole (NIZORAL) 2 % cream Apply 1 application to affected area onc e daily. To rash on legs and feet for 2 weeks at least and continue for 1 week after rash resolves. - nabumetone (RELAFEN) 500 mg tablet Take 1 tablet by mouth twice daily. - diclofenac sodium (VOLTAREN) 1 % topic al gel Apply 2 grams to affected area four time s daily. - guaiFENesin (MUCINEX) 600 mg 12 hr tab let Take 2 tablets by mouth twice daily as n eeded for Cold/Allergy Symptoms. - COMPOUNDED PRESCRIPTION Overnight pulse oximetry-- J42 Chronic b yelitza, R09.02hypoxemia - cholecalciferol (VITAMIN D3) 1,000 uni t tab tablet Take 1 tablet by mouth once daily. - polyethylene glycol 3350 (MIRALAX, GLY COLAX) 17 gram packet Take 1 Packet by mouth once daily. - thiamine (VITAMIN B1) 100 mg tablet Take 1 tablet by mouth three times daily . - albuterol (PROVENTIL) 2.5 mg /3 mL (0. 083 %) nebulizer solution Use 3 mL via nebulizer every 4 hours as needed for Wheezing/Shortness of Breath. Use over 5-15minutes. - COMPOUNDED PRESCRIPTION Nebulizer for home use. Dx: chronic bron chitis Meds Comments as of 09/02/2018: 09/02/18 The medications are managed by this patient by: PATIENT Janell Awad [facility] Pharm-T Problem List As Of Date 12/14/2021 Noted Resolved COLLES' FRACTURE-CLOSED [S52.539A] 02/1409/28/2005 RADIAL STYLOID TENOSYNOV [M65.4] 006 09/28/2005 FX LATERAL MALLEOLUS-CLOSE [S82.63XA] 09/18/2007 Chronic bronchitis (HCC) [J42] 7 INSOMNIA, intermittent [G47.00] 12/18/19 07 Tobacco use disorder [F17.200] 7 Acute sinusitis, unspecified [J01.90] 06/13/2017 Reactive depression [F32.9] 02/06/2008 GENERALIZED ANXIETY DIS [F41.1] 02/06/20 08 GLAUCOMA NOS [H40.9] 02/06/2008 ALLERGIC RHINITIS NOS [J (more content n ot included)... 12-13-2021 Note HNO ID: [id number] [facility] Author: Selwyn Mejias MD [place] Service: ? Author Type: Physician Type: Progress Notes Filed: 01/05/2022 2:37 PM Note Text: This note was created using NoteWriter. Subjective Dalia Drew is a 66 year old female . Patient presents with: F/U 6 months SUBJECTIVE: Dalia Drew is a 66 year old year o ld lady here today for 6 month follow up appointment for review of medi philip conditions. Does love to eat. Breathing issues contributing to difficu lty keeping weight up. Has nurse from palliative care. To help with SOB. 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 Plans for lung biopsy d iscussed. Noted BP was too high when went for biopsy appointment so lung biopsy was cancelled that day. Needs rescheduled. BPs have been fine si nce then. Stable on current meds without adverse effects. Requested med for pain. Chronic back iss ues. Plans to call a help line to get patches to help with quitting smoking. PAST MEDICAL HISTORY Diagnosis Date Anxiety Back pain 09/2018 T5 compression fracture in fall. Chronic obstructive pulmonary disease (C OPD) ([facility]) Dysphagia, unspecified(787.20) Emphysema lung ([facility]) Hypertension INSOMNIA, intermittent 12/17/2006 stress related Unspecified chronic bronchitis ([facility]) 11/25 Current Outpatient Medications Medication Sig atorvastatin (LIPITOR) 10 mg tablet Take 1 tablet by mouth once daily. amLODIPine (NORVASC) 2.5 mg tablet Take 1 tablet by mouth once daily. citalopram (CELEXA) 20 mg tablet Take 1 tablet by mouth once daily. losartan (COZAAR) 50 mg tablet Take 1 ta blet by mouth twice daily. omeprazole (PRILOSEC) 40 mg capsule Take 1 capsule by mouth once daily. ibuprofen (MOTRIN) 800 mg tablet Take 1 tablet by mouth every 8 hours as needed for pain (back). Take with food gabapentin (NEURONTIN) 300 mg capsule Ta ke 1 capsule by mouth twice daily for 90 days. iqsnjhpisrr-shknhlyla-crtdweml (TRELEGY ELLIPTA) 100-62.5-25 mcg inhalation powder Inhale 1 Puff as instr ucted once daily. aspirin 81 mg chewable tablet Take 1 tab let by mouth once daily. Food Supplement, Lactose-Free (ENSURE AC TIVE HIGH PROTEIN) liqd Take 237 mL by mouth once daily. albuterol HFA (VENTOLIN HFA) 90 mcg/actu ation inhaler Inhale 2 Puffs as instructed every 4 hours as needed. -act judson HYDROcodone-acetaminophen (NORCO) 5-325 mg per tablet Take 1 tablet by mouth every 12 hours as needed for pain (Severe pain) for up to 7 days. Ciclopirox (PENLAC) 8 % solution Apply t o affected area once daily. TO AFFECTED AREA. (Patient not taking: Repo rted on 12/13/2020 ) ketoconazole (NIZORAL) 2 % cream Apply 1 application to affected area once daily. To rash on legs and feet for 2 weeks at least and continue for 1 week after rash resolves. (Patient not taking: Reported on 12/13/2020 ) promethazine (PHENERGAN) 6.25 mg/5 mL sy rup Take 5-10 mL by mouth four times daily as needed for Nausea/Vomitin g (and cough). (Patient not taking: Reported on 12/13/2020 ) nabumetone (RELAFEN) 500 mg tablet Take 1 tablet by mouth twice daily. diclofenac sodium (VOLTAREN) 1 % topical gel Apply 2 grams to affected area four times daily. (Patient not taki ng: Reported on 12/13/2020) PREDNISONE ORAL Take by mouth. See Taper instructions. guaiFENesin (MUCINEX) 600 mg 12 hr table t Take 2 tablets by mouth twice daily as needed for Cold/Allergy Symptom s. (Patient not taking: Reported on 12/13/2020 ) COMPOUNDED PRESCRIPTION Overnight pulse oximetry-- J42 Chronic bronchitis, R09.02hypoxemia cholecalciferol (VITAMIN D3) 1,000 unit tab tablet Take 1 tablet by mouth once daily. polyethylene glycol 3350 (MIRALAX, GLYCO LAX) 17 gram packet Take 1 Packet by mouth once daily. (Patient not taking : Reported on 12/13/2020 ) thiamine (VITAMIN B1) 100 mg tablet Take 1 tablet by mouth three times daily. albuterol (PROVENTIL) 2.5 mg /3 mL (0.08 3 %) nebulizer solution Use 3 mL via nebulizer every 4 hours as needed fo r Wheezing/Shortness of Breath. Use over 5-15minutes. COMPOUNDED PRESCRIPTION Nebulizer for ho me use. Dx: chronic bronchitis No current facility-administered medicat ions for this visit. Review of Systems Objective Last 5 Encounter Wt Readings: Date: Wt: 12/13/2021 48.5 kg (107 lb) 08/19/2021 51.7 kg (114 lb) 12/13/2020 47.2 kg (104 lb) 11/22/2020 46.7 kg (103 lb) 11/11/2020 48.1 kg (106 lb) No waist measurement recorded Estimated body mass index is 18.66 kg/m? as calculated from the following: Height as of 08/19/21: 161.3 cm (5' 3.5 ) . Weight as of this encounter: 48.5 kg (10 7 lb). Last 5 Encounter BP Readings: Date: BP: 12/13/2021 142/90 08/19/2021 132/88 12/13/2020 124/82 11/22/2020 128/82 11/11/2020 156/70 Physical Exam Constitutional: Appearance: Normal appearance. She is un derweight. She is not toxic-appearing or diaphoretic. HENT: Head: Normocephalic. Eyes: Conjunctiva/sclera: Conjunctivae normal. (more content not included)... 12-13-2021 History of Present [facility] illness Narrative This note was created using [employer]. Subjective Dalia Drew is a 66 year old female . Patient presents with: F/U 6 months SUBJECTIVE: Dalia Drew is a 66 yea r old year old lady here today for 6 month follow up appointment for review of medical conditions. Does love to eat. Breathing issues contributing to difficu lty keeping weight up. Has nurse from palliative care. To help with SOB. 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 Plans for lung biopsy discussed. Noted BP was too high when went for biopsy appointment so lung biopsy was cancelled that day. Needs rescheduled. BPs have been fine since then. Stable on current meds without adverse effects. Requested med for pain. Chronic back iss ues. Plans to call a help line to get patches to help with quitting smoking. PAST MEDICAL HISTORY Diagnosis Date Anxiety Back pain 09/2018 T5 compression fracture in fall. Chronic obstructive pulmonary disease (C OPD) ([facility]) Dysphagia, unspecified(787.20) Emphysema lung ([facility]) Hypertension INSOMNIA, intermittent 12/17/2006 stress related Unspecified chronic bronchitis ([facility]) 11/25 Current Outpatient Medications Medication Sig atorvastatin (LIPITOR) 10 mg tablet Take 1 tablet by mouth once daily. amLODIPine (NORVASC) 2.5 mg tablet Take 1 tablet by mouth once daily. citalopram (CELEXA) 20 mg tablet Take 1 tablet by mouth once daily. losartan (COZAAR) 50 mg tablet Take 1 ta blet by mouth twice daily. omeprazole (PRILOSEC) 40 mg capsule Take 1 capsule by mouth once daily. ibuprofen (MOTRIN) 800 mg ta blet Take 1 tablet by mouth every 8 hours as needed for pain (back). Take with food gabapentin (NEURONTIN) 300 m g capsule Take 1 capsule by mouth twice daily for 90 days. ziibegkjonc-trmuvlinu-assqwk er (TRELEGY ELLIPTA) 100-62.5-25 mcg inhalation powder Inhale 1 Puff as instructed once daily. aspirin 81 mg chewable tablet Take 1 tab let by mouth once daily. Food Supplement, Lactose-Loki e (ENSURE ACTIVE HIGH PROTEIN) liqd Take 237 mL by mouth once daily. albuterol HFA (VENTOLIN HFA) 90 mcg/actuation inhaler Inhale 2 Puffs as instructed every 4 hours as needed. -active HYDROcodone-acetaminophen (N ORCO) 5-325 mg per tablet Take 1 tablet by mouth every 12 hours as needed for pain (Severe pain) for up to 7 days. Ciclopirox (PENLAC) 8 % solu tion Apply to affected area once daily. TO AFFECTED AREA. (Patient not taking: Reported on 12/13/2020 ) ketoconazole (NIZORAL) 2 % c ream Apply 1 application to affected area once daily. To rash on legs and feet for 2 weeks at least and continue for 1 week after rash resolves. (Patient not taking: Reported on 12/13/2020 ) promethazine (PHENERGAN) 6.2 5 mg/5 mL syrup Take 5-10 mL by mouth four times daily as needed for Nausea/Vomiting (and cough). (Patient not taking: Reported on 12/13/2020 ) nabumetone (RELAFEN) 500 mg tablet Take 1 tablet by mouth twice daily. diclofenac sodium (VOLTAREN) 1 % topical gel Apply 2 grams to affected area four times daily. (Patient not taking: Reported on 12/13/2020) PREDNISONE ORAL Take by mouth. See Taper instructions. guaiFENesin (MUCINEX) 600 mg 12 hr tablet Take 2 tablets by mouth twice daily as needed for Cold/Allergy Symptoms. (Patient not taking: Reported on 12/13/2020 ) COMPOUNDED PRESCRIPTION Over night pulse oximetry-- J42 Chronic bronchitis, R09.02hypoxemia cholecalciferol (VITAMIN D3) 1,000 unit tab tablet Take 1 tablet by mouth once daily. polyethylene glycol 3350 (ID RALAX, GLYCOLAX) 17 gram packet Take 1 Packet by mouth once daily. (Patient not taking: Reported on 12/13/2020 ) thiamine (VITAMIN B1) 100 mg tablet Take 1 tablet by mouth three times daily. albuterol (PROVENTIL) 2.5 mg /3 mL (0.083 %) nebulizer solution Use 3 mL via nebulizer every 4 hours as needed for Wheezing/Shortness of Breath. Use over 5-15minutes. COMPOUNDED PRESCRIPTION Nebulizer for ho me use. Dx: chronic bronchitis No current facility-administered medicat ions for this visit. Review of Systems Objective Last 5 Encounter Wt Readings: Date: Wt: 12/13/2021 48.5 kg (107 lb) 08/19/2021 51.7 kg (114 lb) 12/13/2020 47.2 kg (104 lb) 11/22/2020 46.7 kg (103 lb) 11/11/2020 48.1 kg (106 lb) No waist measurement recorded Estimated body mass index is 18.66 kg/m as calculated from the following: Height as of 08/19/21: 161.3 cm (5' 3.5 ) . Weight as of this encounter: 48.5 kg (10 7 lb). Last 5 Encounter BP Readings: Date: BP: 12/13/2021 142/90 08/19/2021 132/88 12/13/2020 124/82 11/22/2020 128/82 11/11/2020 156/70 Physical Exam Constitutional: Appearance: Normal appearanc e. She is underweight. She is not toxic-appearing or diaphoretic. HENT: Head: Normocephalic. Eyes: Conjunctiva/sclera: Conjunctivae normal. Cardiovascular: Rate and Rhythm: Normal rate and regular rhythm. Heart sounds: Normal heart sounds. Pulmonary: Effort: Pulmonary effort is normal. Breath sounds: Normal breath sounds. Dec reased air movement present. Comments: Occasional cough Skin: General: Skin is warm and dry. Neurological: General: No focal deficit present. Mental Status: She is alert and oriented to person, place, and time. Psychiatric: Attention and Perception: Attention and perception normal. Mood and Affect: Affect normal. Mood is anxious and depressed. Speech: Speech normal. Behavior: Behavior normal. Thought Content: Thought content normal. Judgment: Judgment normal. Last labs: Component Latest Ref Rng & Units 2 WBC 3.70 - 11.00 k/uL 5.81 RBC [...] Lymph 1.00 - 4.00 k/uL 1.25 [place]% % 13.3 Abs [place] <0.87 k/uL 0.77 [place]% % 3.1 Abs [...] 9 - 18 mmol/L 11 eGFR >=60 mL/min/1.73m 100 Total Cholesterol, Nonfasting <200 mg/dL 159 Triglycerides, Nonfasting <150 mg/dL 51 HDL Cholesterol, Nonfasting >39 mg/dL 66 LDL Cholesterol, Nonfasting <100 mg/dL 8 3 Non HDL Cholesterol, Nonfasting <130 mg/ dL 93 VLDL Cholesterol, Nonfasting <30 mg/dL 1 0 Total Chol/HDL Ratio, Nonfasting <5.10 m g/dL 2.41 LDL/HDL Ratio, Nonfasting <2.54 mg/dL 1. 26 Vitamin B12 232-1,245 pg/mL >2,000 (H) Magnesium 1.7 - 2.3 mg/dL 1.9 TSH 0.270 - 4.200 mIU/L 1.210 Assessment and Plan ASSESSMENT/PLAN: 1. Essential hypertension - ICD9: 401.9, ICD10: I10 (primary diagnosis) - good control - Continue current medication(s) - Recommended regular aerobic exercise. - Recommend home blood pressure monitori , to bring results in on next visit - BP optimized and stable fo r proceeding with planned lung biopsy. Note that she does have history of anxiety, so if BP were to go up before the biopsy, could consider pretreatment with anxiolytic. - Goal of BP <130/80 2. Lung mass - ICD9: 786.6, ICD10: R91.8 Needs to pursue lung biopsy. No medical contraindications at this ayse e for planned procedure, Will fax this progress note to Dr. Bentley as requested so they can proceed with lung biopsy. 3. PAD (peripheral artery disease) (HCC) - ICD9: 443.9, ICD10: I73.9 Continue present management. - ATORVASTATIN 10 MG TABLET 4. Compression fracture of T5 vertebra, sequela - ICD9: 905.1, ICD10: S22.050S Continue present management. Can treat acute pain as needed with occa sional pain med (hydrocodone) - GABAPENTIN 300 MG CAPSULE 5. Tobacco use disorder - ICD9: 305.1, I CD10: F17.200 - Cessation encouraged. - Physiologic and physical a spects of tobacco addiction as well as strategies for quitting were discussed. - Counseling was given focus ing on the harmful effects of this addiction especially given the patient's medical condition(s) which will be worsened because of the chemicals in tobacco. - Note plans to call for [facility] p-line that might be able to provide patches for nicotine replacement to help with smoking cessation 6. Gastroesophageal reflux d isease without esophagitis - ICD9: 530.81, ICD10: K21.9 - Continue treatment with: - OMEPRAZOLE 40 MG CAPSULE,DELAYED RELEA SE 7. COPD, severe (HCC) - ICD9: 496, ICD10 : J44.9 Continue follow up with hat renovator. O yeni cough med. - CODEINE 10 MG-GUAIFENESIN 100 MG/5 ML ORAL LIQUID 8. Cough - ICD9: 786.2, ICD10: R05.9 As noted above - CODEINE 10 MG-GUAIFENESIN 100 MG/5 ML ORAL LIQUID 9. Cervical spondylosis without myelopat hy - ICD9: 721.0, ICD10: M47.812 Okay prn pain med. - HYDROCODONE 5 MG-ACETAMINOPHEN 325 MG TABLET 10. Lumbosacral spondylosis without myel opathy - ICD9: 721.3, ICD10: M47.817 Okay prn pain med - HYDROCODONE 5 MG-ACETAMINOPHEN 325 MG TABLET 11. Compression fracture of T5 vertebra with routine healing, subsequent encounter - ICD9: V54.17, ICD10: S22.050D O - HYDROCODONE 5 MG-ACETAMINOPHEN 325 MG TABLET 12. Closed fracture of multi ple ribs of right side with routine healing - ICD9: V54.19, ICD10: S22.41XD Okay prn pain med - GABAPENTIN 300 MG CAPSULE 13. Chronic resp\iratory failure with hy poxia--working with hat renovator. 14. Protein-calorie malntutr ition--working on getting more calories and protein in; noted that shortness of breath with eating limits her intake. Will try to get foods of lower volume with higher amount s of calories and protein. C ost an issue for supplements. Will consider working with SW as needed. Selwyn Mejias MD documented in this encounter 12-02-2021 Note HNO ID: [id number] [facility] Author: Joaquim Rodarte RN [place] Service: ? Author Type: Registered Nurse Type: Progress Notes Filed: 12/02/2021 12:26 PM Note Text: [facility] CDM Enrollment Provider Action/FYI: Call to Pt, unable to leave a message re lated to Insight / Chronic Disease Management program, will provide [facility] info once reached. Patient referred by: [facility] Marisol Contact made with patient: No - Unable t o leave message: (Keep encounter open and attempt 2nd outreach in two bus iness days from today). END OUTREACH Aster March RN December 02, 2021 12:23 PM 12-02-2021 Note Patient Outreach ([facility]) [facility] DALIA Morris ([id number]) 1955 F Date Time Provider Department 12/02/21 JOAQUIM WEBER During your visit today, we recorded the following information about you: Aster March RN 12/02/2021 12:26 PM Signed [facility] CDM Enrollment Provider Action/FYI: Call to Pt, unable to leave a message re lated to [facility]ight / Chronic Disease Management program, will provide [facility] info once reached. Patient referred by: [facility] Marisol Contact made with patient: No - Unable t o leave message: (Keep encounter open and attempt 2nd outreach in two business days from today). END OUTREACH Aster March RN December 02, 2021 12:23 PM Allergies As of Date: 12/02/2021 Noted A llergy Reaction WELLBUTRIN SR (BUPROPION) 05/08/2008 1 - Mental Status Change Comments: made me hallucinate Date Reviewed: 08/19/2021 Reviewed by: Racheal Lopez LPN - Fully A ssessed Reason for Visit: Community Monitoring Outreach [Other] Cm t: Initial CDM Outreach/ [facility] Prescriptions as of 12/02/2021 - atorvastatin (LIPITOR) [...] by mouth twice daily for 90 days. - tzzjiwheahw-mlnvnekgl-hmaxhkrm (TRELEG Y ELLIPTA) 100-62.5-25 mcg inhalation powder Inhale 1 Puff as instructed once daily. - aspirin 81 mg chewable tablet Take 1 tablet by mouth once daily. - Food Supplement, Lactose-Free (ENSURE ACTIVE HIGH PROTEIN) liqd Take 237 mL by mouth once daily. - albuterol HFA (VENTOLIN HFA) 90 mcg/ac tuation inhaler Inhale 2 Puffs as instructed every 4 issac rs as needed. -active - HYDROcodone-acetaminophen (NORCO) 5-32 5 mg per tablet Take 1 tablet by mouth every 12 hours as needed for pain (Severe pain) for up to 7 days. - Ciclopirox (PENLAC) 8 % solution Apply to affected area once daily. TO AF FECTED AREA. - ketoconazole (NIZORAL) 2 % cream Apply 1 application to affected area onc e daily. To rash on legs and feet for 2 weeks at least and continue for 1 week after rash resolves. - promethazine (PHENERGAN) 6.25 mg/5 mL syrup Take 5-10 mL by mouth four times daily a s needed for Nausea/Vomiting (and cough). - nabumetone (RELAFEN) 500 mg tablet Take 1 tablet by mouth twice daily. - diclofenac sodium (VOLTAREN) 1 % topic al gel Apply 2 grams to affected area four time s daily. - PREDNISONE ORAL Take by mouth. See Taper instructions. - guaiFENesin (MUCINEX) 600 mg 12 hr tab let Take 2 tablets by mouth twice daily as n eeded for Cold/Allergy Symptoms. - COMPOUNDED PRESCRIPTION Overnight pulse oximetry-- J42 Chronic b yelitza, R09.02hypoxemia - cholecalciferol (VITAMIN D3) 1,000 uni t tab tablet Take 1 tablet by mouth once daily. - polyethylene glycol 3350 (MIRALAX, GLY COLAX) 17 gram packet Take 1 Packet by mouth once daily. - thiamine (VITAMIN B1) 100 mg tablet Take 1 tablet by mouth three times daily . - albuterol (PROVENTIL) 2.5 mg /3 mL (0. 083 %) nebulizer solution Use 3 mL via nebulizer every 4 hours as needed for Wheezing/Shortness of Breath. Use over 5-15minutes. - COMPOUNDED PRESCRIPTION Nebulizer for home use. Dx: chronic bron chitis Meds Comments as of 09/02/2018: 09/02/18 The medications are managed by this patient by: PATIENT Janell Awad [facility]-T Problem List As Of Date 12/02/2021 Noted Resolved COLLES' FRACTURE-CLOSED [S52.539A] 02/1409/28/2005 RADIAL STYLOID TENOSYNOV [M65.4] 006 09/28/2005 FX LATERAL MALLEOLUS-CLOSE [S82.63XA] 09/18/2007 Chronic bronchitis (HCC) [J42] 7 INSOMNIA, intermittent [G47.00] 12/18/19 07 Tobacco use disorder [F17.200] 7 Acute sinusitis, unspecified [J01.90] 06/13/2017 Reactive depression [F32.9] 02/06/2008 GENERALIZED ANXIETY DIS [F41.1] 02/06/20 08 GLAUCOMA NOS [H40.9] 02/06/2008 ALLERGIC RHINITIS NOS [J30.9] 05/08/2008 FAMILY HX GI MALIGNANCY [Z80.0] 08/26/19 09 DYSPHAGIA NEC [R13.19] 08/25/2008 UNSP ABNORMAL MAMMOGRAM [R92.8] 08/30/19 09 DUODENITIS W/O HEMORRHAGE [K29.80] 09/14 ACUTE GASTRITIS W/O HEMORRHAGE [K29.00] 09/14/2008 Unspecified Disorder of Skin and Subcuta neous T*12/01/2008 Helicobacter Pylori 12/08/2008 Benign Neoplasm of Skin of Trunk, except Scrotu*12/09/2008 Fracture of right distal radius [S52.501 A] 07/24/2012 11/24/2014 Ankle fracture [S82.899A] 11/24/2014 Essential hypertension [I10] 02/27/2017 Gastr (more content not included)... 12-02-2021 History of Present [facility] illness Narrative [facility] CDM Enrollment Provider Action/FYI: Call to Pt, unable to leave a message related to Insight / Chronic Disease Management program, will provide [facility] info once reached. Patient referred by: [facility] Marisol Contact made with patient: N o - Unable to leave message: (Keep encounter open and attempt 2nd outreach in two business days from today). END OUTREACH Aster March RN December 02, 2021 12:23 PM documented in this encounter 11-29-2021 Miscellaneous Formatting of this note migh t be different from the original. [facility] Notes Noted. Selwyn Mejias MD Formatting of this note might be differe nt from the original. Delmy [facility] called and is no tified of providers message and instructions. She voices understanding and was given Pts next appointment time of 12/13/21 at 940 am. She reports she will tell Pts [facility] to see if she can help get Pt to this appointment. Ami Martin, RN Formatting of this note might be differe nt from the original. I can file consult order for palliative care for COPD but would be ideal if made it into appointment with me.. Can see if needs help with r emembering appointments or transportation. She has missed several appointments the past year. Seen last November and this July and missed other appointments since last saw me October 2020. Formatting of this note might be differe nt from the original. Virgen calling back patient d id go to appt with Mihaela Irene NP Pulmonary today was 15 minutes late to the appt. Patient is scheduled to have biopsy done 12/05/2021. Virgen was able to speak to patien t grand daughter Mikala Wa lter, she tries to help with getting her to appts and go over her after visit information. Virgen said patient is very frail and cough is not good sounding. Virgen is asking if PCP would be alright with a palliative Care referral for patient COPD? Can leave a message for Virgen on her voicemail, she can always get it from hat renovator if PCP does not want to do it. Virgen is f axing copy of POA for health care to the office also. She had given me grand daughter Mikala phone number is [phone]. She thinks patient is having memory issues and may not show for her appt with PCP, she did not think grand daughter k new of the appt. Formatting of this note might be differe nt from the original. Virgen from [facility] [employer] Head Assistant calling asking if any paper work patient needs to take to Dr Bentley-Network Contractor? Did not see anything in computer. Patient has appt scheduled today with Pulmonary office to update her H&P for biopsy ishaan ng mass. Hoping patient does keep that appt. Virgen works last model department supervisor and gave her service operations manager, Delmy phone number is [phone] if needed. Aware patient had cancelled her appt mid October with Lacy Manzanares WINE CONSULTANT. documented in this encounter 11-23-2021 Note HNO ID: [id number] [facility] Author: Joaquim Rodarte RN [place] Service: ? Author Type: Registered Nurse Type: Progress Notes Filed: 12/02/2021 12:20 PM Note Text: [facility] CDM Enrollment Provider Action/FYI: Call to Pt, unable to leave a message re lated to Insight / Chronic Disease Management program, will provide [facility] info once reached. Patient referred by: [facility] Marisol Contact made with patient: No - Unable t o leave message: (Keep encounter open and attempt 2nd outreach in two bus iness days from today). END OUTREACH Aster March RN November 23, 2021 2:04 PM 11-23-2021 History of Present [facility] illness Narrative [facility] CDM Enrollment Provider Action/FYI: Call to Pt, unable to leave a message related to Insight / Chronic Disease Management program, will provide [facility] info once reached. Patient referred by: [facility] Marisol Contact made with patient: N o - Unable to leave message: (Keep encounter open and attempt 2nd outreach in two business days from today). END OUTREACH Aster March RN November 23, 2021 2:04 PM documented in this encounter 11-23-2021 Note Patient Outreach ([facility]) [facility] [place] DALIA DREW ([id number]) 1955 F Date Time Provider Department 11/23/21 JOAQUIM WEBER During your visit today, we recorded the following information about you: Aster March RN 12/02/2021 12:20 PM Signed [facility] CDM Enrollment Provider Action/FYI: Call to Pt, unable to leave a message re lated to Insight / Chronic Disease Management program, will provide [facility] info once reached. Patient referred by: [facility] Marisol Contact made with patient: No - Unable t o leave message: (Keep encounter open and attempt 2nd outreach in two business days from today). 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 - bbhfcejquvf-mpgitewop-amjeunvc (TRELEG Y ELLIPTA) 100-62.5-25 mcg inhalation powder Inhale 1 Puff as instructed once daily. - aspirin 81 mg chewable tablet Take 1 tablet by mouth once daily. - Food Supplement, Lactose-Free (ENSURE ACTIVE HIGH PROTEIN) liqd Take 237 mL by mouth once daily. - albuterol HFA (VENTOLIN HFA) 90 mcg/ac tuation inhaler Inhale 2 Puffs as instructed every 4 issac rs as needed. -active - HYDROcodone-acetaminophen (NORCO) 5-32 5 mg per tablet Take 1 tablet by mouth every 12 hours as needed for pain (Severe pain) for up to 7 days. - Ciclopirox (PENLAC) 8 % solution Apply to affected area once daily. TO AF FECTED AREA. - ketoconazole (NIZORAL) 2 % cream Apply 1 application to affected area onc e daily. To rash on legs and feet for 2 weeks at least and continue for 1 week after rash resolves. - promethazine (PHENERGAN) 6.25 mg/5 mL syrup Take 5-10 mL by mouth four times daily a s needed for Nausea/Vomiting (and cough). - nabumetone (RELAFEN) 500 mg tablet Take 1 tablet by mouth twice daily. - diclofenac sodium (VOLTAREN) 1 % topic al gel Apply 2 grams to affected area four time s daily. - PREDNISONE ORAL Take by mouth. See Taper instructions. - guaiFENesin (MUCINEX) 600 mg 12 hr tab let Take 2 tablets by mouth twice daily as n eeded for Cold/Allergy Symptoms. - COMPOUNDED PRESCRIPTION Overnight pulse oximetry-- J42 Chronic b yelitza, R09.02hypoxemia - cholecalciferol (VITAMIN D3) 1,000 uni t tab tablet Take 1 tablet by mouth once daily. - polyethylene glycol 3350 (MIRALAX, GLY COLAX) 17 gram packet Take 1 Packet by mouth once daily. - thiamine (VITAMIN B1) 100 mg tablet Take 1 tablet by mouth three times daily . - albuterol (PROVENTIL) 2.5 mg /3 mL (0. 083 %) nebulizer solution Use 3 mL via nebulizer every 4 hours as needed for Wheezing/Shortness of Breath. Use over 5-15minutes. - COMPOUNDED PRESCRIPTION Nebulizer for home use. Dx: chronic bron chitis Meds Comments as of 09/02/2018: 09/02/18 The medications are managed by this patient by: PATIENT Janell Delmi Menjivar Pharm-T Problem List As Of Date 11/23/2021 Noted Resolved COLLES' FRACTURE-CLOSED [S52.539A] 02/1409/28/2005 RADIAL STYLOID TENOSYNOV [M65.4] 006 09/28/2005 FX LATERAL MALLEOLUS-CLOSE [S82.63XA] 09/18/2007 Chronic bronchitis (HCC) [J42] 7 INSOMNIA, intermittent [G47.00] 12/18/19 07 Tobacco use disorder [F17.200] 7 Acute sinusitis, unspecified [J01.90] 06/13/2017 Reactive depression [F32.9] 02/06/2008 GENERALIZED ANXIETY DIS [F41.1] 02/06/20 08 GLAUCOMA NOS [H40.9] 02/06/2008 ALLERGIC RHINITIS NOS [J30.9] 05/08/2008 FAMILY HX GI MALIGNANCY [Z80.0] 08/26/19 09 DYSPHAGIA NEC [R13.19] 08/25/2008 UNSP ABNORMAL MAMMOGRAM [R92.8] 08/30/19 09 DUODENITIS W/O HEMORRHAGE [K29.80] 09/14 ACUTE GASTRITIS W/O HEMORRHAGE [K29.00] 09/14/2008 Unspecified Disorder of Skin and Subcuta neous T*12/01/2008 Helicobacter Pylori 12/08/2008 Benign Neoplasm of Skin (more content no t included)... 11-10-2021 Miscellaneous Formatting of this note migh t be different from the original. [facility] Notes Noted. Selwyn Mejias MD Formatting of this note might be differe nt from the original. Called [facility] radiology dept. T mryiamy will be doing pts biopsy. They need an update H&P. Pt missed several H&P appts with Dr. Fransisco moore the hat renovator with [facility]. Called pt to review the H&P should be co mpleted with Dr. Bentley. Pt will contact his office to arrange. Formatting of this note might be differe nt from the original. Kaylyn - [facility] - phoned to see if patient has seen pcp recently- they were hoping they could get an H & P, to do lung biopsy tomorrow, for lung mass. Reports patient was scheduled for this 2 weeks ago, but no showed. The 2nd time [facility] scheduled patient, patient was instructed to be NPO, then drank a big coffee in the morning, so they had to cancel. Re- scheduled biopsy for tomorrow, and patient wa s scheduled with Pulmonary t kelsie for an H & P, but patient no showed for that appt today. Now they are going to cancel the biopsy for tomorrow (since last ov in pcp office 08-19-21) until patient sees Pulmonary. documented in this encounter 11-02-2021 Note Patient Outreach ([facility]) [facility] DREWDALIA Robbins ([id number]) 1955 F Date Time Provider Department 11/02/21 SELWYN MEJIAS During your visit today, we recorded the following information about you: Allergies As of Date: 11/02/2021 Noted A llergy Reaction WELLBUTRIN SR (BUPROPION) 05/08/2008 1 - Mental Status Change Comments: made me hallucinate Date Reviewed: 08/19/2021 Reviewed by: Racheal Lopez LPN - Fully A ssessed Visit Diagnosis:Encounter for screening mammogram for breast cancer [Z12.31] Order(s):[facility] SCREENING [[id number]] Order # : [id number] FUTURE Prescriptions as of 11/07/2021 - atorvastatin [...] by mouth twice daily for 90 days. - evzskavlnyv-ceybxohqx-djdwaqaa (TRELEG Y ELLIPTA) 100-62.5-25 mcg inhalation powder Inhale 1 Puff as instructed once daily. - aspirin 81 mg chewable tablet Take 1 tablet by mouth once daily. - Food Supplement, Lactose-Free (ENSURE ACTIVE HIGH PROTEIN) liqd Take 237 mL by mouth once daily. - albuterol HFA (VENTOLIN HFA) 90 mcg/ac tuation inhaler Inhale 2 Puffs as instructed every 4 issac rs as needed. -active - HYDROcodone-acetaminophen (NORCO) 5-32 5 mg per tablet Take 1 tablet by mouth every 12 hours as needed for pain (Severe pain) for up to 7 days. - Ciclopirox (PENLAC) 8 % solution Apply to affected area once daily. TO AF FECTED AREA. - ketoconazole (NIZORAL) 2 % cream Apply 1 application to affected area onc e daily. To rash on legs and feet for 2 weeks at least and continue for 1 week after rash resolves. - promethazine (PHENERGAN) 6.25 mg/5 mL syrup Take 5-10 mL by mouth four times daily a s needed for Nausea/Vomiting (and cough). - nabumetone (RELAFEN) 500 mg tablet Take 1 tablet by mouth twice daily. - diclofenac sodium (VOLTAREN) 1 % topic al gel Apply 2 grams to affected area four time s daily. - PREDNISONE ORAL Take by mouth. See Taper instructions. - guaiFENesin (MUCINEX) 600 mg 12 hr tab let Take 2 tablets by mouth twice daily as n eeded for Cold/Allergy Symptoms. - COMPOUNDED PRESCRIPTION Overnight pulse oximetry-- J42 Chronic b yelitza, R09.02hypoxemia - cholecalciferol (VITAMIN D3) 1,000 uni t tab tablet Take 1 tablet by mouth once daily. - polyethylene glycol 3350 (MIRALAX, GLY COLAX) 17 gram packet Take 1 Packet by mouth once daily. - thiamine (VITAMIN B1) 100 mg tablet Take 1 tablet by mouth three times daily . - albuterol (PROVENTIL) 2.5 mg /3 mL (0. 083 %) nebulizer solution Use 3 mL via nebulizer every 4 hours as needed for Wheezing/Shortness of Breath. Use over 5-15minutes. - COMPOUNDED PRESCRIPTION Nebulizer for home use. Dx: chronic bron chitis Meds Comments as of 09/02/2018: 09/02/18 The medications are managed by this patient by: PATIENT Janell Menjivar Pharm-T Problem List As Of Date 11/02/2021 Noted Resolved COLLES' FRACTURE-CLOSED [S52.539A] 02/1409/28/2005 RADIAL STYLOID TENOSYNOV [M65.4] 006 09/28/2005 FX LATERAL MALLEOLUS-CLOSE [S82.63XA] 09/18/2007 Chronic bronchitis (HCC) [J42] 7 INSOMNIA, intermittent [G47.00] 12/18/19 07 Tobacco use disorder [F17.200] 7 Acute sinusitis, unspecified [J01.90] 06/13/2017 Reactive depression [F32.9] 02/06/2008 GENERALIZED ANXIETY DIS [F41.1] 02/06/20 08 GLAUCOMA NOS [H40.9] 02/06/2008 ALLERGIC RHINITIS NOS [J30.9] 05/08/2008 FAMILY HX GI MALIGNANCY [Z80.0] 08/26/19 09 DYSPHAGIA NEC [R13.19] 08/25/2008 UNSP ABNORMAL MAMMOGRAM [R92.8] 08/30/19 09 DUODENITIS W/O HEMORRHAGE [K29.80] 09/14 ACUTE GASTRITIS W/O HEMORRHAGE [K29.00] 09/14/2008 Unspecified Disorder of Skin and Subcuta neous T*12/01/2008 Helicobacter Pylori 12/08/2008 Benign Neoplasm of Skin of Trunk, except Scrotu*12/09/2008 Fracture of right distal radius [S52.501 A] 07/24/2012 11/24/2014 Ankle fracture [S82.899A] 11/24/2014 Essential hypertension [I10] 02/27/2017 Gastroesophageal reflux disease without esophag*10/20/2017 Compression fracture of T5 vertebra (HCC ) [S22.*08/24/2018 Trauma [T14.90XA] 08/27/2018 Fall from ladder [W11.XXXA] 08/27/2018 Closed fracture of multiple ribs of righ t side *08/27/2018 Wheezing [R06.2] 08/27/2018 Hypoxia [R09.02] 08/27/2018 Back pain [M54.9] 09/2018 Incidental lung nodule, greater than or equal t*11/04/2019 COPD, severe (HCC) [J44.9] 11/04/2019 Tension pneumothorax [J93.0] 11/04/2019 Ch (more content not included)... 09-28-2021 Miscellaneous Formatting of this note is d ifferent from the original. [facility] Notes Patient call in for chest pa in with difficulty of breathing. Nurse Triage assessment completed with protocol recommending for disposition of Go to ED now. Care advice reviewed with patient, patient stated understanding. Reason for Disposition SEVERE chest pain Answer Assessment - Initial Assessment Q uestions 1. LOCATION: Middle of chest; both sides of cleavaage 2. RADIATION: Denies radiation 3. ONSET: Yesterday 4. PATTERN Constant; worse with exertion. 5. DURATION: Constant 6. SEVERITY: Rates 9 out of 10; Can't take a deep thalia ath. 7. CARDIAC RISK FACTORS: Denies 8. PULMONARY RISK FACTORS: COPD 9. CAUSE: Unsure 10. OTHER SYMPTOMS: Short of breath; head throbbing. Protocols used: CHEST [id number] documented in this encounter 09-02-2021 Miscellaneous Formatting of this note migh t be different from the original. [facility] Notes letter printed Okay to send letter with inf ormation. No answer. No voice mailbox. Please let he know recent la bwork was in acceptable range overall. Vitamin B12 is elevated, if taking supplemental may want to cut back on her dose. Component Latest Ref Rng & Units 2 WBC 3.70 - 11.00 k/uL 5.81 RBC [...] Lymph 1.00 - 4.00 k/uL 1.25 [place]% % 13.3 Abs [place] <0.87 k/uL 0.77 [place]% % 3.1 Abs [...] 9 - 18 mmol/L 11 eGFR >=60 mL/min/1.73m 100 Total Cholesterol, Nonfasting <200 mg/dL 159 Triglycerides, Nonfasting <150 mg/dL 51 HDL Cholesterol, Nonfasting >39 mg/dL 66 LDL Cholesterol, Nonfasting <100 mg/dL 8 3 Non HDL Cholesterol, Nonfasting <130 mg/ dL 93 VLDL Cholesterol, Nonfasting <30 mg/dL 1 0 Total Chol/HDL Ratio, Nonfasting <5.10 m g/dL 2.41 LDL/HDL Ratio, Nonfasting <2.54 mg/dL 1. 26 Vitamin B12 232-1,245 pg/mL >2,000 (H) Magnesium 1.7 - 2.3 mg/dL 1.9 TSH 0.270 - 4.200 mIU/L 1.210 documented in this encounter 08-24-2021 Miscellaneous Formatting of this note migh t be different from the original. [facility] Notes Sw left 2nd message for serjio ent to return Sw to discuss financial/home care assistance needs. Sw called and left message f or patient in regards to SW consult request to help with financial constraints and help around the house. Sw requested patient call SW back to discuss needs. documented in this encounter 08-19-2021 Note HNO ID: [id number] [facility] Author: Lacy Manzanares APRN.[facility] Service: ? Author Type: Nurse Specialist Type: Progress Notes Filed: 08/19/2021 10:45 AM Note Text: SUBJECTIVE: LUNG CANCER SCREENING Never done SHINGRIX VACCINE(1 of 2) Never done MAMMOGRAM due on 07/01/2014 BONE DENSITY Never done BP CONTROLLED (<130/80) due on 1 COVID-19 VACCINE(2 - Booster for Mark series) due on 03/03/2021 ADVANCE DIRECTIVE DISCUSSION Never done DIABETES SCREEN due on 08/30/2021 HPI Dalia Drew is a 66 year old female . PMH significant for ACTIVE PROBLEM LIST Chronic Bronchitis (Hcc) INSOMNIA, intermittent Tobacco Use Disorder Reactive depression Generalized Anxiety Disorder Unspecified Glaucoma(365.9) Allergic Rhinitis, Cause Unspecified Family History of Malignant Neoplasm of Gastrointestinal Tract Other Dysphagia Abnormal Mammogram, Unspecified Duodenitis Without Mention of Hemorrhage Acute Gastritis Without Mention of Hemor rhage Unspecified Disorder of Skin and Subcuta neous Tissue Helicobacter Pylori Benign Neoplasm of Skin of Trunk, Except Scrotum Ankle Fracture Essential Hypertension Gastroesophageal Reflux Disease Without Esophagitis Compression Fracture of T5 Vertebra (Hcc ) Trauma Fall From Ladder Closed Fracture of Multiple Ribs of Righ t Side With Routine Healing Wheezing Hypoxia Back Pain Incidental Lung Nodule, Greater Than Or Equal to 8mm Copd, Severe (Hcc) Tension Pneumothorax Chronic Respiratory Failure With Hypoxia (Hcc) Community Acquired Pneumonia of Left Low er Lobe of Lung HPI excerpted from previous visit: She was admitted to [facility] December 02 through December 06, 2020. Admission for COPD e xacerbation and respiratory failure. She was seen by pulmonary medic ine during her admission by Dr. Bentley. Medications at discharge citalopram 20 m g oral daily omeprazole 40 mg oral daily amlodipine 2.5 mg oral daily cyclo benzaprine 10 mg 3 times daily as needed, gabapentin 300 mg oral twice irma ly, albuterol sulfate inhaler every 4 hours as needed, fluticasone Ume clidinium vilanterol daily, atorvastatin 10 mg oral daily ibuprofen by 800 mg oral 3 times daily as needed, Augmentin twice daily x8 tablets prednisone taper. Record review shows that she was commend ed for cough and dyspnea. Noted to have acute on chronic hypoxic respira tory failure secondary exacerbation of COPD and left lower lobe pneumonia. Pulmonary medicine followed during her admission. Chest x-r ay showed small left pleural effusion, left lower lobe pneumonia vers us atelectasis. BiPAP as needed during admission. She was continued on s upplemental oxygen to keep O2 above 90%, 3 to 6 L nasal cannula at [facility]. Treated with IV Solu-Medrol during admission, transition to oral prednisone taper at discharge. Respiratory panel and Covid t esting were negative. Sputum culture shows presumptive C albicans mix ed mercy. Treated with IV azithromycin and IV Zosyn during admissi on. Transition to Augmentin at discharge. Follow-up in 1 week with PCP recommended. Follow-up with pulmonary medicine in 2 weeks recommende d. Palliative medicine consulted during recent admission and recommended continued followed up with palliative medicine at discharge given m oderately severe obstructive lung disease. Secondary diagnoses chronic hyp onatremia likely secondary to chronic alcohol use which was improved. Chronic alcohol use, MVI thiamine and folic acid supplementation recommend ed. Hypertension with stable and she was continued on amlodipine hyperlip idemia noted she was continued on statin. Noted severe protein calorie mal nutrition as evidenced by reduced BMI and cachectic appearance. Dietitian consulted during admission. 12/06/2020 WBC 9.3 hemoglobin 10.9 hemato crit 33.4 platelets 504. Sodium 131 potassium 4.7 chloride 96 CO2 30 5 B UN 22 creatinine 0.38 estimated creatinine clearance 43.61 glucose 113 c alcium 8.1 Shortness of breath: continues but impro rico Cough: present Wheeze: some Sputum:no Fever: none since discharge Oxygen: 3L NC 24/7 Inhaler: Using currently, in need of jose ntenance inhaler refill from Dr. Bentley Follow-up with hat renovator: scheduled for next week, Dr. Bentley's office Complete medications: yes completed. Notes eating OK. Does not take any suppl emental, nothing recommended at discharge notes continues to smoke, EtOH . Notes chronic back pain, stable, no alar m symptoms, ibuprofen seems to help somewhat. Not interested in physica l therapy. Has not seen spine physician. X-ray completed in February. Requests [place]. Presents today for routine follow up vis it. She reports no hospitalization or ER visits since last year. She has not seen Dr. Bentley since her ER visit in 2020, needs to [facility] follow-up visit. COPD: Noted to be severe Cough: Present, clear sputum Wheeze: Present Shortness of breath: Present Network Contractor visit: Dr Bentley (more content not included)... 08-19-2021 Instructions Lacy Manzanares APRN.CNS - 10:20 AM EDT [facility] Schedule a follow up with Dr Bentley. documented in this encounter 08-19-2021 History of Present [facility] illness Narrative SUBJECTIVE: LUNG CANCER SCREENING Never done SHINGRIX VACCINE(1 of 2) Never done MAMMOGRAM due on 07/01/2014 BONE DENSITY Never done BP CONTROLLED (<130/80) due on 1 COVID-19 VACCINE(2 - Booster for Mark series) due on 03/03/2021 ADVANCE DIRECTIVE DISCUSSION Never done DIABETES SCREEN due on 08/30/2021 HPI Dalia Drew is a 66 yea r old female. PMH significant for ACTIVE PROBLEM LIST Chronic Bronchitis (Hcc) INSOMNIA, intermittent Tobacco Use Disorder Reactive depression Generalized Anxiety Disorder Unspecified Glaucoma(365.9) Allergic Rhinitis, Cause Unspecified Family History of Malignant Neoplasm of Gastrointestinal Tract Other Dysphagia Abnormal Mammogram, Unspecified Duodenitis Without Mention of Hemorrhage Acute Gastritis Without Mention of Hemor rhage Unspecified Disorder of Skin and Subcuta neous Tissue Helicobacter Pylori Benign Neoplasm of Skin of Trunk, Except Scrotum Ankle Fracture Essential Hypertension Gastroesophageal Reflux Disease Without Esophagitis Compression Fracture of T5 Vertebra (Hcc ) Trauma Fall From Ladder Closed Fracture of Multiple Ribs of Righ t Side With Routine Healing Wheezing Hypoxia Back Pain Incidental Lung Nodule, Greater Than Or Equal to 8mm Copd, Severe (Hcc) Tension Pneumothorax Chronic Respiratory Failure With Hypoxia (Hcc) Community Acquired Pneumonia of Left Low er Lobe of Lung HPI excerpted from previous visit: She was admitted to [facility] December 02 through December 06, 2020. Admission for COPD exacerbation and respiratory failure. She was seen by pulmonary medicine during her admission by Dr. Bnetley. Medications at discharge cit alopram 20 mg oral daily omeprazole 40 mg oral daily amlodipine 2.5 mg oral daily cyclobenzaprine 10 mg 3 times daily as needed, gabapentin 300 mg oral twice daily, albuterol sulfate inhaler every 4 issac rs as needed, fluticasone Umeclidinium vilanterol daily, atorvastatin 10 mg oral daily ibuprofen by 800 mg oral 3 times daily as needed, Augmentin twice daily x8 tablets prednisone taper. Record review shows that she was commended for cough and dyspnea. Noted to have acute on chronic hypoxic respiratory failure secondary exacerbation of COPD and left lower lobe pneumonia. Pulmonary medic ine followed during her admi ssion. Chest x-ray showed small left pleural effusion, left lower lobe pneumonia versus atelectasis. BiPAP as needed during admission. She was continued on supplemental oxyge n to keep O2 above 90%, 3 to 6 L nasal cannula at baseline. Treated with IV Solu-Medrol during admission, transition to oral prednisone taper at discharge. Respiratory panel and Covid testing were negat [place]. Sputum culture shows pr esumptive C albicans mixed mercy. Treated with IV azithromycin and IV Zosyn during admission. Transition to Augmentin at discharge. Follow-up in 1 week with PCP recommended. Follow-up with pulmonary med icine in 2 weeks recommended. Palliative medicine consulted during recent admission and recommended continued followed up with palliative medicine at discharge given moderate ly severe obstructive lung d isease. Secondary diagnoses chronic hyponatremia likely secondary to chronic alcohol use which was improved. Chronic alcohol use, MVI thiamine and folic acid supplementation recommended. Hypertension wi th stable and she was continued on amlodipine hyperlipidemia noted she was continued on statin. Noted severe protein calorie malnutrition as evidenced by reduced BMI and cach ectic appearance. Dietitian consulted du [facility] admission. 12/06/2020 WBC 9.3 hemoglobin 10.9 hematocrit 33.4 platelets 504. Sodium 131 potassium 4.7 chloride 96 CO2 30 5 BUN 22 creatinine 0.38 estimated creatinine clearance 43.61 glucose 113 calcium 8.1 Shortness of breath: continues but impro rico Cough: present Wheeze: some Sputum:no Fever: none since discharge Oxygen: 3L NC 24/7 Inhaler: Using currently, in need of jose ntenance inhaler refill from Dr. Bentley Follow-up with hat renovator: scheduled for next week, Dr. Bentley's office Complete medications: yes completed. Notes eating OK. Does not ta ke any supplemental, nothing recommended at discharge notes continues to smoke, EtOH. Notes chronic back pain, sta ble, no alarm symptoms, ibuprofen seems to help somewhat. Not interested in physical therapy. Has not seen spine physician. X- ray completed in February. Requests [place]. Presents today for routine f ollow up visit. She reports no hospitalization or ER visits since last year. She has not seen Dr. Bentley since her ER visit in 2020, needs to schedule follow-up visit. COPD: Noted to be severe Cough: Present, clear sputum Wheeze: Present Shortness of breath: Present Network Contractor visit: Dr Bentley Oxygen: 2 to 3 L by nasal cannula 24/7 Inhaler use: Notes using consistently Smoking: Continues Palliative medicine: Not participating i n this She notes financial constrai nts, difficulty affording medications. Notes she needs assistance with housework now and then, perhaps 2 days a week. Chronic back pain is stable, no alarm sy mptoms reported. Review of Systems Constitutional: Negative. Respiratory: Positive for cough, shortne ss of breath and wheezing. Musculoskeletal: Positive for back pain. Objective BP 132/88 Pulse 93 Resp 16 Ht 161.3 cm (5' 3.5 ) Wt 51.7 kg (114 lb) SpO2 94% BMI 19.88 kg/m Physical Exam Vitals and nursing note reviewed. Constitutional: Appearance: Normal appearance. HENT: Head: Normocephalic and atraumatic. Eyes: Conjunctiva/sclera: Conjunctivae normal. Cardiovascular: Rate and Rhythm: Normal rate and regular rhythm. Pulmonary: Effort: Pulmonary effort is normal. Breath sounds: Wheezing and rhonchi pres ent. Musculoskeletal: Lumbar back: Tenderness present. Decreas ed range of motion. Right lower leg: No edema. Left lower leg: No edema. Skin: General: Skin is warm and dry. Neurological: Mental Status: She is alert. Mental stat us is at baseline. Psychiatric: Mood and Affect: Mood normal. ALLERGIES Allergen Reactions Wellbutrin Sr [Bupr* Mental Status Whitaker ge made me hallucinate Medications atorvastatin (LIPITOR) 10 mg tablet Take 1 tablet by mouth once daily. amLODIPine (NORVASC) 2.5 mg tablet Take 1 tablet by mouth once daily. citalopram (CELEXA) 20 mg tablet Take 1 tablet by mouth once daily. losartan (COZAAR) 50 mg tablet Take 1 ta blet by mouth twice daily. omeprazole (PRILOSEC) 40 mg capsule Take 1 capsule by mouth once daily. ibuprofen (MOTRIN) 800 mg ta blet Take 1 tablet by mouth every 8 hours as needed for pain (back). Take with food gabapentin (NEURONTIN) 300 m g capsule Take 1 capsule by mouth twice daily for 90 days. nwpjbmmruzw-zigilcift-dcrjea er (TRELEGY ELLIPTA) 100-62.5-25 mcg inhalation powder Inhale 1 Puff as instructed once daily. aspirin 81 mg chewable tablet Take 1 tab let by mouth once daily. Food Supplement, Lactose-Loki e (ENSURE ACTIVE HIGH PROTEIN) liqd Take 237 mL by mouth once daily. albuterol HFA (VENTOLIN HFA) 90 mcg/actuation inhaler Inhale 2 Puffs as instructed every 4 hours as needed. -active nabumetone (RELAFEN) 500 mg tablet Take 1 tablet by mouth twice daily. PREDNISONE ORAL Take by mouth. See Taper instructions. COMPOUNDED PRESCRIPTION Over night pulse oximetry-- J42 Chronic bronchitis, R09.02hypoxemia cholecalciferol (VITAMIN D3) 1,000 unit tab tablet Take 1 tablet by mouth once daily. thiamine (VITAMIN B1) 100 mg tablet Take 1 tablet by mouth three times daily. albuterol (PROVENTIL) 2.5 mg /3 mL (0.083 %) nebulizer solution Use 3 mL via nebulizer every 4 hours as needed for Wheezing/Shortness of Breath. Use over 5-15minutes. COMPOUNDED PRESCRIPTION Nebulizer for ho me use. Dx: chronic bronchitis HYDROcodone-acetaminophen (N ORCO) 5-325 mg per tablet Take 1 tablet by mouth every 12 hours as needed for pain (Severe pain) for up to 7 days. Ciclopirox (PENLAC) 8 % solu tion Apply to affected area once daily. TO AFFECTED AREA. ketoconazole (NIZORAL) 2 % c ream Apply 1 application to affected area once daily. To rash on legs and feet for 2 weeks at least and continue for 1 week after rash resolves. promethazine (PHENERGAN) 6.2 5 mg/5 mL syrup Take 5-10 mL by mouth four times daily as needed for Nausea/Vomiting (and cough). diclofenac sodium (VOLTAREN) 1 % topical gel Apply 2 grams to affected area four times daily. guaiFENesin (MUCINEX) 600 mg 12 hr tablet Take 2 tablets by mouth twice daily as needed for Cold/Allergy Symptoms. polyethylene glycol 3350 (ID RALAX, GLYCOLAX) 17 gram packet Take 1 Packet by mouth once daily. PAST MEDICAL HISTORY Diagnosis Date Anxiety Back pain 09/2018 T5 compression fracture in fall. Chronic obstructive pulmonary disease ( COPD) ([facility]) Dysphagia, unspecified(787.20) Emphysema lung ([facility]) Hypertension INSOMNIA, intermittent 12/17/2006 stress related Unspecified chronic bronchitis ([facility]) Social History Tobacco Use Smoking status: Current Every Day Smoke r Packs/day: 1.00 Years: 25.00 Pack years: 25.00 Types: Cigarettes Start date: 1967 Smokeless tobacco: Never Used Tobacco comment: No smoking in childhod home.-- Not smoking now given COVID 19 Vaping Use Vaping Use: Never used Substance Use Topics Alcohol use: Yes Comment: daily; hospital rec ords noted 6+beers daily but at Oct hospital follow up, was not drinking, occ. Drug use: No ASSESSMENT/PLAN: ASSESSMENT/PLAN: 1. COPD, severe ([facility]) - ICD9: 496, ICD10 : J44.9 (primary diagnosis) 5. Chronic bronchitis, unspe cified chronic bronchitis type (HCC) - ICD9: 491.9, ICD10: J42 Currently stable, no recent exacerbation. Continue with current treatment unchanged for now. Currently using inhalers routinely. Reports oxygen 2 to 3 L 16/10. 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 6. Tobacco use disorder - ICD9: 305.1, I CD10: F17.200 Cessation endorsed - CBC + DIFF - COMP METABOLIC PANEL 7. Hypoxia - ICD9: 799.02, ICD10: R09.02 Stable, compensated with current treatme nt and oxygen use. 8. Gastroesophageal reflux d isease without esophagitis - ICD9: 530.81, ICD10: K21.9 Without current complaints - CBC + DIFF - COMP METABOLIC PANEL - OMEPRAZOLE 40 MG CAPSULE,DELAYED RELEA SE 9. PAD (peripheral artery disease) ([facility]) - ICD9: 443.9, ICD10: I73.9 - ATORVASTATIN 10 MG TABLET 10. Gastroesophageal reflux disease without esophagitis - ICD9: 530.81, ICD10: K21.9 - CBC + DIFF - COMP METABOLIC PANEL - OMEPRAZOLE 40 MG CAPSULE,DELAYED RELEA SE 11. Compression fracture of T5 vertebra, initial encounter ([facility]) - ICD9: 805.2, ICD10: S22.050A 12. Closed fracture of multi ple ribs of right side with routine healing - ICD9: V54.19, ICD10: S22.41XD She notes back pain is currently managed with gabapentin. PDMP website checked and joni idated. All prescriptions have been APPROPRIATELY filled. No suspicious activity was identified. 08/19/2021 by Lacy Manzanares APRN.DUPLICATION SPECIALIST - GABAPENTIN 300 MG CAPSULE 13. Need for financial support - ICD9: V 60.2, ICD10: Z59.9 She notes difficulty affordi ng medications, difficulty with transportation, notes she needs assistance with housework a couple of times per week. - PRIMARY CARE SOCIAL WORK CONSULT 14. Essential hypertension - ICD9: 401.9 , ICD10: I10 Stable, currently controlled, continue t o monitor. 15. Reactive depression - ICD9: 300.4, I CD10: F32.9 16. Generalized anxiety disorder - ICD9: 300.02, ICD10: F41.1 Stable, currently controlled, continue t o monitor. - TSH BLD - MAGNESIUM BLD - VITAMIN B12 BLOOD Declines to complete lab work today stat es she will return next week for this. 6-month follow-up with PCP Lacy Manzanares APRN.DUPLICATION SPECIALIST Medical Decision Making: Problems: Moderate: 2+ stable chronic illnesses Data: Unique test(s) ordered: 3+ Risk: Moderate: Drug management Medical Decision Making Level: 4 - Moder ate documented in this encounter 08-18-2021 Miscellaneous Formatting of this note is d ifferent from the original. [facility] Notes Patient has been identified by name and date of : Yes Patient phones for refill(s): Pending Prescriptions Disp Refills TRELEGY ELLIPTA 100 MCG-62.5 MCG-25 MCG POWDER FOR INHALATION 1 Each 5 Sig: Inhale 1 Puff as instructed once da nicholas. WILBERT: No Date of last office visit in primary car e: 12/13/2020; Future Appt. 08/19/2021 Last 2 Encounter Wt Readings: Date: Wt: 12/13/2020 47.2 kg (104 lb) 11/22/2020 46.7 kg (103 lb) Previous labs/tests for medication: Blood Pressure: BUN (mg/dL) Date Value 08/30/2018 16 Sodium (mEq/L) Date Value 08/30/2018 135 Last 1 Encounter BP Readings: Date: BP: 12/13/2020 124/82 Liver Function: ALT (U/L) Date Value 02/12/2018 17 AST (U/L) Date Value 02/12/2018 21 Please advise. Thank you. Heena robbins RN documented in this encounter 07-07-2021 Miscellaneous Formatting of this note migh t be different from the original. [facility] Notes Patient returns call and pro vider message below given. Patient verbalizes understanding. Giulia Mcginnis RN Called and left a voicemail for the Patient to call back and ask for a nurse to receive the providers message. Ami Martin RN Just got RX for this on 06/16/21. Will okay this RX but if cou gh is severe enough that this does not last till her appointment with Lacy, should be seen to determine the cause for the severe cough needing to take this med for that often. The following approved medic ation requests have been transmitted electronically. Signed Prescriptions Disp Refills codeine-guaiFENesin (GUAIFENESIN AC) 10- 100 mg/5 mL syrup 236 mL 0 Sig: Take 5-10 mL by mouth four times da nicholas as needed for up to 7 days. JOAQUÍN Class: C-V WILBERT: No Authorizing Provider: SELWYN MEJIAS MD Pt is requesting to have Vir tussin AC Liquid Vir refilled (generic for Guaifenesin AC). This was not an option for me to select, so I am noting it here. Please call pt if this is possible. Thank you, Hafsa Bustamante documented in this encounter 04-01-2020 Note HNO ID: [id number] [facility] Author: Eric Zamorano (Appeals Analyst.Office Cleaner) [facility] Service: ? Author Type: Nurse Practitioner Type: Progress Notes Filed: 04/01/2020 10:39 AM Note Text: Subjective HPI Dalia Drew is a 64 year old female who presents with moderateback pain. This has been ongoing for 2 years and has been constant as a result of falling off a room in 2019 resulting in rib and compression fractures at T5. The pain has a severity of 8/10 a nd is sharp and aching in nature. she reports that activity causes this to be worse. The patient alleviates the pain at home with NSAIDS, opiods/rosalia cotics and resting, which has a mild affect on their pain. she has tried PT, and Preventative meds, to treat the pain. We provide the patient w ith NSAIDS and lidocaine patches which has not improved the patients pain control. --patient has no more pills left after r efill on --Patient following up for refill of med ications I have confirmed and edited as necessary , the PMH, FH, SH, and ROS obtained by others. Review of Systems Eyes: Negative for blurred vision. Respiratory: Negative for shortness of b reath. Cardiovascular: Negative for chest pain and leg swelling. Gastrointestinal: Negative for constipat ion, diarrhea, nausea and vomiting. Genitourinary: Negative for dysuria. Skin: Negative for itching. Neurological: Negative for dizziness, ti ngling, weakness and headaches. Endo/Heme/Allergies: Does not bruise/ble ed easily. Psychiatric/Behavioral: Negative for dep ression and suicidal ideas. PAST MEDICAL HISTORY Diagnosis Date - Anxiety - Back pain 09/2018 T5 compression fracture in fall. - Chronic obstructive pulmonary disease (COPD) ([facility]) - Dysphagia, unspecified(787.20) - Emphysema lung ([facility]) - Hypertension - INSOMNIA, intermittent 12/17/2006 stress related - Unspecified chronic bronchitis ([facility]) PAST SURGICAL HISTORY Procedure Laterality Date - BX BREAST PERC VACUUM/ROTN Left - COLONOSCOP W/ OR W/O BRSH SPEC mod poor prep, otherwise normal - EGD W/O BRSH SPECIMEN W/BX duodenitis, mild gastritis FAMILY HISTORY Problem Relation Age of Onset - Heart Mother at age 38 - Colon Cancer Father - COPD No Family History Social History Tobacco Use - Smoking status: Current Every Day Smok er Packs/day: 1.00 Years: 25.00 Pack years: 25.00 Types: Cigarettes Start date: 1967 - Smokeless tobacco: Never Used - Tobacco comment: No smoking in childho d home.-- Not smoking now given COVID 19 Substance Use Topics - Alcohol use: Yes Comment: daily; hospital records noted 6 +beers daily but at Oct hospital follow up, was not drinking, occ. - Drug use: No Current Meds TRELEGY ELLIPTA 100-62.5-25 mcg Inhale 1 Puff as instructed once daily. diclofenac sodium (VOLTAREN) 1 % topical gel Apply 2 grams to affected area four times daily. HYDROcodone-acetaminophen (NORCO) 5-325 mg per tablet Take 1 tablet by mouth every 12 hours as needed for Pain for up to 30 days. gabapentin (NEURONTIN) 300 mg capsule Ta ke 1 capsule by mouth twice daily for 90 days. nicotine (NICODERM) 21 mg/24 hr Apply 1 Patch as directed every 24 hours. for 6 weeks, then start taking 14 mg nicotine (NICODERM) 14 mg/24 hr Apply 1 Patch as directed every 24 hours. x two weeks, then start taking 7 mg nicotine (NICODERM) 7 mg/24 hr Apply 1 P atch as directed every 24 hours. ibuprofen (MOTRIN) 800 mg tablet Take 1 tablet by mouth every 8 hours as needed. PREDNISONE ORAL Take by mouth. See Taper instructions. triamcinolone acetonide (KENALOG) 0.1 % cream Apply 1 application to affected area three times daily as neede d (itchy rash). promethazine (PHENERGAN) 6.25 mg/5 mL sy rup Take 5-10 mL by mouth four times daily as needed for Nausea/Vomitin g (and cough). citalopram (CELEXA) 20 mg tablet Take 1 tablet by mouth once daily. Omeprazole 40 mg capsule Take 1 capsule by mouth once daily. amLODIPine (NORVASC) 2.5 mg tablet Take 1 tablet by mouth once daily. losartan (COZAAR) 50 mg tablet Take 1 ta blet by mouth twice daily. guaiFENesin (MUCINEX) 600 mg 12 hr table t Take 2 tablets by mouth twice daily as needed for Cold/Allergy Symptom s. albuterol HFA (VENTOLIN HFA) 90 mcg/actu ation inhaler Inhale 2 Puffs as instructed every 4 hours as needed. COMPOUNDED PRESCRIPTION Overnight pulse oximetry-- J42 Chronic bronchitis, R09.02hypoxemia cholecalciferol (VITAMIN D3) 1,000 unit tab tablet Take 1 tablet by mouth once daily. polyethylene glycol 3350 (MIRALAX, GLYCO LAX) 17 gram packet Take 1 Packet by mouth once daily. thiamine (VITAMIN B1) 100 mg tablet Take 1 tablet by mouth three times daily. albuterol (PROVENTIL) 2.5 mg /3 mL (0.08 3 %) nebulizer solution Use 3 mL via nebulizer every 4 hours as needed fo r Wheezing/Shortness of Breath. Use over 5-15minutes. COMPOUNDED PRESCRIPTION Nebulizer for ho me use. Dx: chronic bronchitis Objective There were no vital (more content not in cluded)... 03-04-2020 Note HNO ID: [id number] [facility] Author: Jose [facility] Service: ? Author Type: Physician Type: Progress Notes Filed: 03/07/2020 10:25 PM Note Text: [facility] General Spine and Pain [place] Interval Evaluation Form CHIEF COMPLAINT: Spine pain Interval HPI March 04, 2020 Ashley returns for f/u regaridng above complaints, here for medication refill. Patient states she takes [place] w hich allows her to function and takes the edge off her pain. Pain 7-11/02 --patient states she ran out of her prescribed medication on the ; sh rayna was not able to get in sooner for an appointment even though she was d ue for refill earlier; pain described as numb, sharp, tender, shooti ng, aching sensation. HPI December 18, 2019: Dalia Drew is a 64 year old female presenting to the office for evaluation and treatment of spine pain, with the worst being the right shoulder blade and left lower back ongoi ng since September 2018 after fall off roof. Patient states she had CT scans pe rformed at the outside hospital showed evidence of right-sided 6-7 rib f ractures along with a compression fracture of the T5 vertebrae. Patient wa s admitted for pain control, neurosurgical/spine consult, and medical monitoring/treatment of her respiratory status. Patient was evaluate d by the neurosurgery team who recommended non-surgical management of t he T5 fracture. 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 Pain currently 01/02 PAIN DETAIL: Location: right shoulder blade, left low er back pain Radiation: none Onset: September 2018 Timing of Pain: frequently Pain Quality: stinging, ahcing Alleviating: rest Exacerbating: activity, movement Prior therapies: norco, gabapentin, motr in, heat/cold packs ADDITIONAL SYMPTOMS: No changes in urinary habits. No changes in bowel movement frequency. Able to restrain bowel movement. PAST MEDICAL HISTORY: PAST MEDICAL HISTORY Diagnosis Date - Anxiety - Back pain 09/2018 T5 compression fracture in fall. - Chronic obstructive pulmonary disease (COPD) ([facility]) - Dysphagia, unspecified(787.20) - Emphysema lung ([facility]) - Hypertension - INSOMNIA, intermittent 12/17/2006 stress related - Unspecified chronic bronchitis (HCC) Psych: denies PAST SURGICAL HISTORY: PAST SURGICAL HISTORY Procedure Laterality Date - BX BREAST PERC VACUUM/ROTN Left - COLONOSCOP W/ OR W/O BRSH SPEC mod poor prep, otherwise normal - EGD W/O BRSH SPECIMEN W/BX duodenitis, mild gastritis SOCIAL HISTORY: Social History Tobacco Use - Smoking status: Current Every Day Smok er Packs/day: 1.00 Years: 25.00 Pack years: 25.00 Types: Cigarettes Start date: 1965 - Smokeless tobacco: Never Used - Tobacco comment: No smoking in childho d home.-- Not smoking now given COVID 19 Substance Use Topics - Alcohol use: Yes Comment: daily; hospital records noted 6 +beers daily but at Oct hospital follow up, was not drinking, occ. - Drug use: No Social History Social History Narrative Not on file - Illicits: denies - EtOH: 2-3 beers in month; patient stat es she used to when she worked at [employer] (since retired) FAMILY HISTORY: FAMILY HISTORY Problem Relation Age of Onset - Heart Mother at age 38 - Colon Cancer Father - COPD No Family History Reviewed, no history of chronic pain in parents, and is non-contributory MEDICATIONS: Current Outpatient Medications Medication Sig Dispense Refill - HYDROcodone-acetaminophen (NORCO) 5-32 5 mg per tablet Take 1 tablet by mouth every 12 hours as needed for Pain for up to 15 days. Do not start before February 16, 2020. 30 tablet 0 - gabapentin (NEURONTIN) 300 mg capsule Take 1 capsule by mouth twice daily for 90 days. 60 capsule 2 - nicotine (NICODERM) 21 mg/24 hr Apply 1 Patch as directed every 24 hours. for 6 weeks, then start taking 14 mg 42 Patch 0 - nicotine (NICODERM) 14 mg/24 hr Apply 1 Patch as directed every 24 hours. x two weeks, then start taking 7 mg 14 Patch 0 - nicotine (NICODERM) 7 mg/24 hr Apply 1 Patch as directed every 24 hours. 14 Patch 0 - ibuprofen (MOTRIN) 800 mg tablet Take 1 tablet by mouth every 8 hours as needed. 60 tablet 2 - PREDNISONE ORAL Take by mouth. See Tap er instructions. - triamcinolone acetonide (KENALOG) 0.1 % cream Apply 1 application to affected area three times daily as neede d (itchy rash). 45 g 2 - promethazine (PHENERGAN) 6.25 mg/5 mL syrup Take 5-10 mL by mouth four times daily as needed for Nausea/Vomitin g (and cough). 240 mL 1 - citalopram (CELEXA) 20 mg tablet Take 1 tablet by mouth once daily. 90 tablet 3 - Omeprazole 40 mg capsule Take 1 capsul e by mouth once daily. 90 capsule 3 - amLODIPine (NORVASC) 2.5 mg tablet Herb e 1 tablet by mouth once daily. 90 tablet 3 - losartan (COZAAR) 50 mg ta blet Take 1 tablet by mouth (more content not included)... 03-02-2020 History of Past illness Narra tive Problem Noted Date Resolved Date Cervical spondylosis without myelopathy 03/02/2020 05/27/2020 Lumbosacral spondylosis without myelopathy 03/02/2020 05/27/2020 Fracture of right distal radius 07/24/2012 11/25/19 15 Acute sinusitis, unspecified 02/06/2008 06/13/2017 Closed fracture of lateral malleolus 11/08/2005 Radial styloid tenosynovitis 06/28/2005 09/28/2005 Closed Colles' fracture 02/14/2005 09/28/2005 documented as of this encounter (statuses as of 07/07/2021)[facility] 03-02-2020 History of Past illness Narrative Problem Noted Date Resolved Date Cervical spondylosis without myelopathy 03/02/2020 05/27/2020 Lumbosacral spondylosis without myelopathy 03/02/2020 05/27/2020 Fracture of right distal radius 07/24/2012 11/25/19 15 Acute sinusitis, unspecified 02/06/2008 06/13/2017 Closed fracture of lateral malleolus 11/08/2005 Radial styloid tenosynovitis 06/28/2005 09/28/2005 Closed Colles' fracture 02/14/2005 09/28/2005 documented as of this encounter (statuses as of 08/18/2021)[facility] 03-02-2020 History of Past illness Narrative Problem Noted Date Resolved Date Cervical spondylosis without myelopathy 03/02/2020 05/27/2020 Lumbosacral spondylosis without myelopathy 03/02/2020 05/27/2020 Fracture of right distal radius 07/24/2012 11/25/19 15 Acute sinusitis, unspecified 02/06/2008 06/13/2017 Closed fracture of lateral malleolus 11/08/2005 Radial styloid tenosynovitis 06/28/2005 09/28/2005 Closed Colles' fracture 02/14/2005 09/28/2005 documented as of this encounter (statuses as of 08/19/2021)[facility] 03-02-2020 History of Past illness Narrative Problem Noted Date Resolved Date Cervical spondylosis without myelopathy 03/02/2020 05/27/2020 Lumbosacral spondylosis without myelopathy 03/02/2020 05/27/2020 Fracture of right distal radius 07/24/2012 11/25/19 15 Acute sinusitis, unspecified 02/06/2008 06/13/2017 Closed fracture of lateral malleolus 11/08/2005 Radial styloid tenosynovitis 06/28/2005 09/28/2005 Closed Colles' fracture 02/14/2005 09/28/2005 documented as of this encounter (statuses as of 08/25/2021)[facility] 03-02-2020 History of Past illness Narrative Problem Noted Date Resolved Date Cervical spondylosis without myelopathy 03/02/2020 05/27/2020 Lumbosacral spondylosis without myelopathy 03/02/2020 05/27/2020 Fracture of right distal radius 07/24/2012 11/25/19 15 Acute sinusitis, unspecified 02/06/2008 06/13/2017 Closed fracture of lateral malleolus 11/08/2005 Radial styloid tenosynovitis 06/28/2005 09/28/2005 Closed Colles' fracture 02/14/2005 09/28/2005 documented as of this encounter (statuses as of 09/02/2021)[facility] 03-02-2020 History of Past illness Narrative Problem Noted Date Resolved Date Cervical spondylosis without myelopathy 03/02/2020 05/27/2020 Lumbosacral spondylosis without myelopathy 03/02/2020 05/27/2020 Fracture of right distal radius 07/24/2012 11/25/19 15 Acute sinusitis, unspecified 02/06/2008 06/13/2017 Closed fracture of lateral malleolus 11/08/2005 Radial styloid tenosynovitis 06/28/2005 09/28/2005 Closed Colles' fracture 02/14/2005 09/28/2005 documented as of this encounter (statuses as of 09/28/2021)[facility] 03-02-2020 History of Past illness Narrative Problem Noted Date Resolved Date Cervical spondylosis without myelopathy 03/02/2020 05/27/2020 Lumbosacral spondylosis without myelopathy 03/02/2020 05/27/2020 Fracture of right distal radius 07/24/2012 11/25/19 15 Acute sinusitis, unspecified 02/06/2008 06/13/2017 Closed fracture of lateral malleolus 11/08/2005 Radial styloid tenosynovitis 06/28/2005 09/28/2005 Closed Colles' fracture 02/14/2005 09/28/2005 documented as of this encounter (statuses as of 11/07/2021)[facility] 03-02-2020 History of Past illness Narrative Problem Noted Date Resolved Date Cervical spondylosis without myelopathy 03/02/2020 05/27/2020 Lumbosacral spondylosis without myelopathy 03/02/2020 05/27/2020 Fracture of right distal radius 07/24/2012 11/25/19 15 Acute sinusitis, unspecified 02/06/2008 06/13/2017 Closed fracture of lateral malleolus 11/08/2005 Radial styloid tenosynovitis 06/28/2005 09/28/2005 Closed Colles' fracture 02/14/2005 09/28/2005 documented as of this encounter (statuses as of 11/10/2021)[facility] 03-02-2020 History of Past illness Narrative Problem Noted Date Resolved Date Cervical spondylosis without myelopathy 03/02/2020 05/27/2020 Lumbosacral spondylosis without myelopathy 03/02/2020 05/27/2020 Fracture of right distal radius 07/24/2012 11/25/19 15 Acute sinusitis, unspecified 02/06/2008 06/13/2017 Closed fracture of lateral malleolus 11/08/2005 Radial styloid tenosynovitis 06/28/2005 09/28/2005 Closed Colles' fracture 02/14/2005 09/28/2005 documented as of this encounter (statuses as of 11/29/2021)[facility] 03-02-2020 History of Past illness Narrative Problem Noted Date Resolved Date Cervical spondylosis without myelopathy 03/02/2020 05/27/2020 Lumbosacral spondylosis without myelopathy 03/02/2020 05/27/2020 Fracture of right distal radius 07/24/2012 11/25/19 15 Acute sinusitis, unspecified 02/06/2008 06/13/2017 Closed fracture of lateral malleolus 11/08/2005 Radial styloid tenosynovitis 06/28/2005 09/28/2005 Closed Colles' fracture 02/14/2005 09/28/2005 documented as of this encounter (statuses as of 12/02/2021)[facility] 03-02-2020 History of Past illness Narrative Problem Noted Date Resolved Date Cervical spondylosis without myelopathy 03/02/2020 05/27/2020 Lumbosacral spondylosis without myelopathy 03/02/2020 05/27/2020 Fracture of right distal radius 07/24/2012 11/25/19 15 Acute sinusitis, unspecified 02/06/2008 06/13/2017 Closed fracture of lateral malleolus 11/08/2005 Radial styloid tenosynovitis 06/28/2005 09/28/2005 Closed Colles' fracture 02/14/2005 09/28/2005 documented as of this encounter (statuses as of 12/02/2021)[facility] 03-02-2020 History of Past illness Narrative Problem Noted Date Resolved Date Cervical spondylosis without myelopathy 03/02/2020 05/27/2020 Lumbosacral spondylosis without myelopathy 03/02/2020 05/27/2020 Fracture of right distal radius 07/24/2012 11/25/19 15 Acute sinusitis, unspecified 02/06/2008 06/13/2017 Closed fracture of lateral malleolus 11/08/2005 Radial styloid tenosynovitis 06/28/2005 09/28/2005 Closed Colles' fracture 02/14/2005 09/28/2005 documented as of this encounter (statuses as of 12/15/2021)[facility] 03-02-2020 History of Past illness Narrative Problem Noted Date Resolved Date Lumbosacral spondylosis without myelopathy 03/02/2020 05/27/2020 Fracture of right distal radius 07/24/2012 11/25/19 15 Acute sinusitis, unspecified 02/06/2008 06/13/2017 Closed fracture of lateral malleolus 11/08/2005 Radial styloid tenosynovitis 06/28/2005 09/28/2005 Closed Colles' fracture 02/14/2005 09/28/2005 documented as of this encounter (statuses as of 01/05/2022)[facility] 03-02-2020 History of Past illness Narrative Problem Noted Date Resolved Date Lumbosacral spondylosis without myelopathy 03/02/2020 05/27/2020 Fracture of right distal radius 07/24/2012 11/25/19 15 Acute sinusitis, unspecified 02/06/2008 06/13/2017 Closed fracture of lateral malleolus 11/08/2005 Radial styloid tenosynovitis 06/28/2005 09/28/2005 Closed Colles' fracture 02/14/2005 09/28/2005 documented as of this encounter (statuses as of 01/06/2022)[facility] 03-02-2020 History of Past illness Narrative Problem Noted Date Resolved Date Lumbosacral spondylosis without myelopathy 03/02/2020 05/27/2020 Fracture of right distal radius 07/24/2012 11/25/19 15 Acute sinusitis, unspecified 02/06/2008 06/13/2017 Closed fracture of lateral malleolus 11/08/2005 Radial styloid tenosynovitis 06/28/2005 09/28/2005 Closed Colles' fracture 02/14/2005 09/28/2005 documented as of this encounter (statuses as of 01/23/2022)[facility] 03-02-2020 History of Past illness Narrative Problem Noted Date Resolved Date Lumbosacral spondylosis without myelopathy 03/02/2020 05/27/2020 Fracture of right distal radius 07/24/2012 11/25/19 15 Acute sinusitis, unspecified 02/06/2008 06/13/2017 Closed fracture of lateral malleolus 11/08/2005 Radial styloid tenosynovitis 06/28/2005 09/28/2005 Closed Colles' fracture 02/14/2005 09/28/2005 documented as of this encounter (statuses as of 01/30/2022)[facility] 03-02-2020 History of Past illness Narrative Problem Noted Date Resolved Date Lumbosacral spondylosis without myelopathy 03/02/2020 05/27/2020 Fracture of right distal radius 07/24/2012 11/25/19 15 Acute sinusitis, unspecified 02/06/2008 06/13/2017 Closed fracture of lateral malleolus 11/08/2005 Radial styloid tenosynovitis 06/28/2005 09/28/2005 Closed Colles' fracture 02/14/2005 09/28/2005 documented as of this encounter (statuses as of 02/01/2022)[facility] 03-02-2020 History of Past illness Narrative Problem Noted Date Resolved Date Lumbosacral spondylosis without myelopathy 03/02/2020 05/27/2020 Fracture of right distal radius 07/24/2012 11/25/19 15 Acute sinusitis, unspecified 02/06/2008 06/13/2017 Closed fracture of lateral malleolus 11/08/2005 Radial styloid tenosynovitis 06/28/2005 09/28/2005 Closed Colles' fracture 02/14/2005 09/28/2005 documented as of this encounter (statuses as of 02/07/2022)[facility] 03-02-2020 History of Past illness Narrative Problem Noted Date Resolved Date Lumbosacral spondylosis without myelopathy 03/02/2020 05/27/2020 Fracture of right distal radius 07/24/2012 11/25/19 15 Acute sinusitis, unspecified 02/06/2008 06/13/2017 Closed fracture of lateral malleolus 11/08/2005 Radial styloid tenosynovitis 06/28/2005 09/28/2005 Closed Colles' fracture 02/14/2005 09/28/2005 documented as of this encounter (statuses as of 02/07/2022)[facility] 02-12-2020 NoteHNO ID: [id number] Author: Jose Lanier Service: ? Author Type: Physician Type: Progress Notes Filed: 02/15/2020 9:02 PM Note Text: [facility] General Spine and Pain [place] Interval Evaluation Form CHIEF COMPLAINT: Spine pain Interval HPI February 12, 2020 Patinet returns for f/u regaridng above complaints, here for medication refill. Patient states she takes [place] which allows her to function and takes the edge off her pain. Pain 10/10--patient states she has not taken her morning medication thus far; described as tingling, tneder, stinging, shooting, aching pain; otherwise remains at baseline. HPI December 18, 2019: Dalia Drew is a 64 year old female presenting to the office for evaluation and treatment of spine pain, with the worst being the right shoulder blade and left lower back ongoing since September 2018 after fall off roof. Patient states she had CT scans performed at the outside hospital showed evidence of right-sided 6-7 rib fractures along with a compression fracture of the T5 vertebrae. Patient was admitted for pain control, neurosurgical/spine consult, and medical monitoring/treatment of her respiratory status. Patient was evaluated by the neurosurgery team who recommended non-surgical management of the T5 fracture. 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 Pain currently 10/10 PAIN DETAIL: Location: right shoulder blade, left lower back pain Radiation: none Onset: September 2018 Timing of Pain: frequently Pain Quality: stinging, ahcing Alleviating: rest Exacerbating: activity, movement Prior therapies: norco, gabapentin, motrin, heat/cold packs ADDITIONAL SYMPTOMS: No changes in urinary habits. No changes in bowel movement frequency. Able to restrain bowel movement. PAST MEDICAL HISTORY: PAST MEDICAL HISTORY Diagnosis Date - Anxiety - Back pain 09/2018 T5 compression fracture in fall. - Chronic obstructive pulmonary disease (COPD) ([facility]) - Dysphagia, unspecified(787.20) - Emphysema lung ([facility]) - Hypertension - INSOMNIA, intermittent 12/17/2006 stress related - Unspecified chronic bronchitis ([facility]) 12/17/2006 Psych: denies PAST SURGICAL HISTORY: PAST SURGICAL HISTORY Procedure Laterality Date - BX BREAST PERC VACUUM/ROTN Left - COLONOSCOP W/ OR W/O BRSH SPEC mod poor prep, otherwise normal - EGD W/O BRSH SPECIMEN W/BX duodenitis, mild gastritis SOCIAL HISTORY: Social History Tobacco Use - Smoking status: Current Every Day Smoker Packs/day: 1.00 Years: 25.00 Pack years: 25.00 Types: Cigarettes Start date: 1965 - Smokeless tobacco: Never Used - Tobacco comment: No smoking in childhod home.-- Not smoking now given COVID 19 Substance Use Topics - Alcohol use: Yes Comment: daily; hospital records noted 6+beers daily but at Oct hospital follow up, was not drinking, occ. - Drug use: No Social History Social History Narrative Not on file - Illicits: denies - EtOH: 2-3 beers in month; patient states she used to when she worked at [employer] (since retired) FAMILY HISTORY: FAMILY HISTORY Problem Relation Age of Onset - Heart Mother at age 38 - Colon Cancer Father - COPD No Family History Reviewed, no history of chronic pain in parents, and is non-contributory MEDICATIONS: Current Outpatient Medications Medication Sig Dispense Refill - tiZANidine (ZANAFLEX) 2 mg tablet Take 1 tablet by mouth at bedtime as needed (muscle spasms). 30 tablet 1 - gabapentin (NEURONTIN) 300 mg capsule Take 1 capsule by mouth twice daily for 90 days. 60 capsule 2 - HYDROcodone-acetaminophen (NORCO) 5-325 mg per tablet Take 1 tablet by mouth every 12 hours as needed for Pain for up to 30 days. Do not start before January 17, 2020. 60 tablet 0 - nicotine (NICODERM) 21 mg/24 hr Apply 1 Patch as directed every 24 hours. for 6 weeks, then start taking 14 mg 42 Patch 0 - nicotine (NICODERM) 14 mg/24 hr Apply 1 Patch as directed every 24 hours. x two weeks, then start taking 7 mg 14 Patch 0 - nicotine (NICODERM) 7 mg/24 hr Apply 1 Patch as directed every 24 hours. 14 Patch 0 - ibuprofen (MOTRIN) 800 mg tablet Take 1 tablet by mouth every 8 hours as needed. 60 tablet 2 - PREDNISONE ORAL Take by mouth. See Taper instructions. - triamcinolone acetonide (KENALOG) 0.1 % cream Apply 1 application to affected area three times daily as needed (itchy rash). 45 g 2 - promethazine (PHENERGAN) 6.25 mg/5 mL syrup Take 5-10 mL by mouth four times daily as needed for Nausea/Vomiting (and cough). 240 mL 1 - citalopram (CELEXA) 20 mg tablet Take 1 tablet by mouth once daily. 90 tablet 3 - Omeprazole 40 mg capsule Take 1 capsule by mouth once daily. 90 capsule 3 - amLODIPine (NORVASC) 2.5 mg tablet Take 1 tablet by mouth once daily. 90 tablet 3 - losartan (COZAA (more content not included)...[facility] 01-15-2020 NoteHNO ID: [id number] Author: Jose Lanier Service: ? Author Type: Physician Type: Progress Notes Filed: 01/19/2020 12:20 AM Note Text: [facility] Spine and Pain [place] Interval Evaluation Form CHIEF COMPLAINT: Spine pain Interval HPI January 15, 2020 Ashley coronado fro f/u regaridng above complaints, here for medication refill. Patient states she takes [place] which allows her to function and takes the edge off her pain. She states she was not able to get scheduled for therapy and she completed x-rays at an outside hospital although she is not sure where exactly. Patient states she has been helping care for her sister's home as her sister has been sick, the cleaning has made the pain more frequent. Pain 8/10, otherwise remains at baseline. HPI December 18, 2019: Dalia Drew is a 64 year old female presenting to the office for evaluation and treatment of spine pain, with the worst being the right shoulder blade and left lower back ongoing since September 2018 after fall off roof. Patient states she had CT scans performed at the outside hospital showed evidence of right-sided 6-7 rib fractures along with a compression fracture of the T5 vertebrae. Patient was admitted for pain control, neurosurgical/spine consult, and medical monitoring/treatment of her respiratory status. Patient was evaluated by the neurosurgery team who recommended non-surgical management of the T5 fracture. 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 Pain currently 10/10 PAIN DETAIL: Location: right shoulder blade, left lower back pain Radiation: none Onset: September 2018 Timing of Pain: frequently Pain Quality: stinging, ahcing Alleviating: rest Exacerbating: activity, movement Prior therapies: norco, gabapentin, motrin, heat/cold packs ADDITIONAL SYMPTOMS: No changes in urinary habits. No changes in bowel movement frequency. Able to restrain bowel movement. PAST MEDICAL HISTORY: PAST MEDICAL HISTORY Diagnosis Date - Anxiety - Back pain 09/2018 T5 compression fracture in fall. - Chronic obstructive pulmonary disease (COPD) ([facility]) - Dysphagia, unspecified(787.20) - Emphysema lung ([facility]) - Hypertension - INSOMNIA, intermittent 12/17/2006 stress related - Unspecified chronic bronchitis ([facility]) 12/17/2006 Psych: denies PAST SURGICAL HISTORY: PAST SURGICAL HISTORY Procedure Laterality Date - BX BREAST PERC VACUUM/ROTN Left - COLONOSCOP W/ OR W/O BRSH SPEC mod poor prep, otherwise normal - EGD W/O BRSH SPECIMEN W/BX duodenitis, mild gastritis SOCIAL HISTORY: Social History Tobacco Use - Smoking status: Current Every Day Smoker Packs/day: 1.00 Years: 25.00 Pack years: 25.00 Types: Cigarettes Start date: 1965 - Smokeless tobacco: Never Used - Tobacco comment: No smoking in childhod home.-- Not smoking now given COVID 19 Substance Use Topics - Alcohol use: Yes Comment: daily; hospital records noted 6+beers daily but at Oct hospital follow up, was not drinking, occ. 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 for 6 weeks, then start taking 14 mg 42 Patch 0 - nicotine (NICODERM) 14 mg/24 hr Apply 1 Patch as directed every 24 hours. x two weeks, then start taking 7 mg 14 Patch 0 - nicotine (NICODERM) 7 mg/24 hr Apply 1 Patch as directed every 24 hours. 14 Patch 0 - ibuprofen (MOTRIN) 800 mg tablet Take 1 tablet by mouth every 8 hours as needed. 60 tablet 2 - PREDNISONE ORAL Take by mouth. See Taper instructions. - triamcinolone acetonide (KENALOG) 0.1 % cream Apply 1 application to affected area three times daily as needed (itchy rash). 45 g 2 - promethazine (PHENERGAN) 6.25 mg/5 mL syrup Take 5-10 mL by mouth four times daily as needed for Nausea/Vomiting (and cough). 240 mL 1 - citalopram (CELEXA) 20 mg tablet Take 1 tablet by mouth once daily. 90 tablet 3 - Omeprazole 40 mg capsule Take 1 capsule by mouth once daily. 90 capsule 3 - amLODIPine (NORVASC) 2.5 mg tablet Take 1 tablet by mouth once daily. 90 tablet 3 - losartan (COZAAR) 50 mg tablet Take 1 tablet by mouth twice daily. 180 tablet 3 - albuterol HFA (VENTOLIN HFA) 90 mcg/actuation inhaler Inhale 2 Puffs as instructed every 4 hours as needed. 306 g 11 - COMPOUNDED PRESCRIPTION Overnight pulse oximetry-- J42 Chr (more content not included)...[facility]10-22-2020 NoteProcedure (SPAGWO) DALIA DREW ([id number]) 1955 F Date Time Provider Department 01/15/20 11:45 AM JOSE LANIER During your visit today, we recorded the following information about you: Temperature Weight Height 97.9 degrees 52.2 kg 1.676 m Jose Lanier MD 01/19/2020 12:20 AM Signed [facility] [place] Interval Evaluation Form CHIEF COMPLAINT: Spine pain Interval HPI January 15, 2020 Ashley coronado fro f/u regaridng above complaints, here for medication refill. Patient states she takes [place] which allows her to function and takes the edge off her pain. She states she was not able to get scheduled for therapy and she completed x-rays at an outside hospital although she is not sure where exactly. Patient states she has been helping care for her sister's home as her sister has been sick, the cleaning has made the pain more frequent. Pain 8/10, otherwise remains at baseline. HPI December 18, 2019: Dalia Drew is a 64 year old female presenting to the office for evaluation and treatment of spine pain, with the worst being the right shoulder blade and left lower back ongoing since September 2018 after fall off roof. Patient states she had CT scans performed at the outside hospital showed evidence of right-sided 6-7 rib fractures along with a compression fracture of the T5 vertebrae. Patient was admitted for pain control, neurosurgical/spine consult, and medical monitoring/treatment of her respiratory status. Patient was evaluated by the neurosurgery team who recommended non-surgical management of the T5 fracture. 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 Pain currently 10/10 PAIN DETAIL: Location: right shoulder blade, left lower back pain Radiation: none Onset: September 2018 Timing of Pain: frequently Pain Quality: stinging, ahcing Alleviating: rest Exacerbating: activity, movement Prior therapies: norco, gabapentin, motrin, heat/cold packs ADDITIONAL SYMPTOMS: No changes in urinary habits. No changes in bowel movement frequency. Able to restrain bowel movement. PAST MEDICAL HISTORY: PAST MEDICAL HISTORY Diagnosis Date - Anxiety - Back pain 09/2018 T5 compression fracture in fall. - Chronic obstructive pulmonary disease (COPD) ([facility]) - Dysphagia, unspecified(787.20) - Emphysema lung ([facility]) - Hypertension - INSOMNIA, intermittent 12/17/2006 stress related - Unspecified chronic bronchitis ([facility]) 12/17/2006 Psych: denies PAST SURGICAL HISTORY: PAST SURGICAL HISTORY Procedure Laterality Date - BX BREAST PERC VACUUM/ROTN Left - COLONOSCOP W/ OR W/O [facility] SPEC mod poor prep, otherwise normal - EGD W/O [facility] SPECIMEN W/BX duodenitis, mild gastritis SOCIAL HISTORY: Social History Tobacco Use - Smoking status: Current Every Day Smoker Packs/day: 1.00 Years: 25.00 Pack years: 25.00 Types: Cigarettes Start date: 1965 - Smokeless tobacco: Never Used - Tobacco comment: No smoking in childhod home.-- Not smoking now given COVID 19 Substance Use Topics - Alcohol use: Yes Comment: daily; hospital records noted 6+beers daily but at Oct hospital follow up, was not drinking, occ. 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 for 6 weeks, then start taking 14 mg 42 Patch 0 - nicotine (NICODERM) 14 mg/24 hr Apply 1 Patch as directed every 24 hours. x two weeks, then start taking 7 mg 14 Patch 0 - nicotine (NICODERM) 7 mg/24 hr Apply 1 Patch as directed every 24 hours. 14 Patch 0 - ibuprofen (MOTRIN) 800 mg tablet Take 1 tablet by mouth every 8 hours as needed. 60 tablet 2 - PREDNISONE ORAL Take by mouth. See Taper instructions. - triamcinolone acetonide (KENALOG) 0.1 % cream Apply 1 application to affected area three times daily as needed (itchy rash). 45 g 2 - promethazine (PHENERGAN) 6.25 mg/5 mL syrup Take 5-10 mL by mouth four times daily as needed for Nausea/Vomiting (and cough). 240 mL 1 - citalopram (CELEXA) 20 mg tablet Take 1 tablet by mouth once daily. 90 tablet 3 - Omeprazole 40 mg capsule Take 1 capsule by mouth once daily. 90 capsule 3 - amLODIPine (NORVASC) 2.5 mg tablet Take 1 tablet by mouth once daily. 90 tablet 3 - losartan (COZA (more content not included)...[facility] 12-18-2019 NoteHNO ID: [id number] Author: Jose Lanier Service: ? Author Type: Physician Type: Progress Notes Filed: 12/21/2019 9:39 PM Note Text: [facility] [place] Initial Evaluation Form CHIEF COMPLAINT: Spine pain Referred by: Lacy Manzanares APRN.DUPLICATION SPECIALIST [address] [place] [address] [facility] December 18, 2019: Dalia Drew is a 64 year old female presenting to the office for evaluation and treatment of spine pain, with the worst being the right shoulder blade and left lower back ongoing since September 2018 after fall off roof. Patient states she had CT scans performed at the outside hospital showed evidence of right-sided 6-7 rib fractures along with a compression fracture of the T5 vertebrae. Patient was admitted for pain control, neurosurgical/spine consult, and medical monitoring/treatment of her respiratory status. Patient was evaluated by the neurosurgery team who recommended non-surgical management of the T5 fracture. 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 Pain currently 01/02 PAIN DETAIL: Location: right shoulder blade, left lower back pain Radiation: none Onset: September 2018 Timing of Pain: frequently Pain Quality: stinging, ahcing Alleviating: rest Exacerbating: activity, movement Prior therapies: norco, gabapentin, motrin, heat/cold packs ADDITIONAL SYMPTOMS: No changes in urinary habits. No changes in bowel movement frequency. Able to restrain bowel movement. PAST MEDICAL HISTORY: PAST MEDICAL HISTORY Diagnosis Date - Anxiety - Back pain 09/2018 T5 compression fracture in fall. - Chronic obstructive pulmonary disease (COPD) ([facility]) - Dysphagia, unspecified(787.20) - Emphysema lung ([facility]) - Hypertension - INSOMNIA, intermittent 12/17/2006 stress related - Unspecified chronic bronchitis ([facility]) 12/17/2006 Psych: denies PAST SURGICAL HISTORY: PAST SURGICAL HISTORY Procedure Laterality Date - BX BREAST PERC VACUUM/ROTN Left - COLONOSCOP W/ OR W/O [facility] SPEC mod poor prep, otherwise normal - EGD W/O [facility] SPECIMEN W/BX duodenitis, mild gastritis SOCIAL HISTORY: Social History Tobacco Use - Smoking status: Current Every Day Smoker Packs/day: 1.00 Years: 25.00 Pack years: 25.00 Types: Cigarettes Start date: 1965 - Smokeless tobacco: Never Used - Tobacco comment: No smoking in childhod home.-- Not smoking now given COVID 19 Substance Use Topics - Alcohol use: Yes Comment: daily; hospital records noted 6+beers daily but at Oct hospital follow up, was not drinking, occ. 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 45 g 2 - gabapentin (NEURONTIN) 300 mg capsule Take 1 capsule by mouth twice daily for 90 days. 60 capsule 2 - ibuprofen (MOTRIN) 800 mg tablet Take 1 tablet by mouth every 8 hours as needed. 60 tablet 2 - promethazine (PHENERGAN) 6.25 mg/5 mL syrup Take 5-10 mL by mouth four times daily as needed for Nausea/Vomiting (and cough). 240 mL 1 - citalopram (CELEXA) 20 mg tablet Take 1 tablet by mouth once daily. 90 tablet 3 - Omeprazole 40 mg capsule Take 1 capsule by mouth once daily. 90 capsule 3 - amLODIPine (NORVASC) 2.5 mg tablet Take 1 tablet by mouth once daily. 90 tablet 3 - losartan (COZAAR) 50 mg tablet Take 1 tablet by mouth twice daily. 180 tablet 3 - albuterol HFA (VENTOLIN HFA) 90 mcg/actuation inhaler Inhale 2 Puffs as instructed every 4 hours as needed. 306 g 11 - COMPOUNDED PRESCRIPTION Overnight pulse oximetry-- J42 Chronic bronchitis, R09.02hypoxemia 1 Each 1 - polyethylene glycol 3350 (MIRALAX, GLYCOLAX) 17 gram packet Take 1 Packet by mouth once daily. - albuterol (PROVENTIL) 2.5 mg /3 mL (0.083 %) nebulizer solution Use 3 mL via nebulizer every 4 hours as needed for Wheezing/Shortness of Breath. Use over 5-15minutes. 50 Vial 3 - COMPOUNDED PRESCRIPTION Nebulizer for home use. Dx: chronic bronchitis 1 0 - HYDROcodone-acetaminophen (NORCO) 5-325 mg per tablet Take 1 tablet by mouth three times daily as needed for up to 9 days. Do not start before November 09, 2019. 24 tablet 0 - vcobdrxbsun-fmupmxkgd-xxaulvol (TRELEGY ELLIPTA) 100-62.5-25 mcg dsdv Inhale 1 Puff as instructed once daily. (Patient not taking: Reported on 12/18/2019 ) 1 Inhaler (more content not included)...[facility] COPD, severe ([facility]) Chronic airway obstruction, not elsewher e classified Cough [facility] Diagnosis COPD, severe (HCC)- Primary Chronic airway obstruction, not elsewher e classified Encounter for screening for lung cancer Need for shingles vaccine Need for prophylactic vaccination and in oculation against other viral diseases Encounter for immunization Need for other specified prophylactic va ccination against single bacterial disease Chronic bronchitis, unspecified chronic bronchitis type (HCC) Tobacco use disorder Hypoxia Hypoxemia Gastroesophageal reflux disease without esophagitis Esophageal reflux PAD (peripheral artery disease) (HCC) Peripheral vascular disease, unspecified Compression fracture of T5 vertebra, ini tial encounter (HCC) Closed fracture of multiple ribs of righ t side with routine healing Need for financial support Essential hypertension Unspecified essential hypertension Reactive depression Dysthymic disorder Generalized anxiety disorder [facility] Diagnosis Encounter for screening mammogram for br east cancer documented in this encounterAdena [facility] SystemEvaluation note Diagnosis Chronic obstructive pulmonary disease, u nspecified COPD type (HCC)- Primary documented in [facility] encounterOhio[facility] Diagnosis Essential hypertension- Primary Unspecified essential hypertension Lung mass Swelling, mass, or lump in chest PAD (peripheral artery disease) (HCC) Peripheral vascular disease, unspecified Compression fracture of T5 vertebra, seq uela Tobacco use disorder Gastroesophageal reflux disease without esophagitis Esophageal reflux COPD, severe (HCC) Chronic airway obstruction, not elsewher e classified Cough Cervical spondylosis without myelopathy Lumbosacral spondylosis without myelopat hy Compression fracture of T5 vertebra with routine healing, subsequent encounter Closed fracture of multiple ribs of righ t side with routine healing Chronic respiratory failure with hypoxia (HCC) Chronic respiratory failure Protein-calorie malnutrition, unspecifie d severity (HCC) documented in this encounterAdena [facility] SystemEvalubay[facility] note Diagnosis COPD, severe (HCC)- Primary Chronic airway obstruction, not elsewher e classified documented in this encounterAdena Health SystemReason for referral (narrative) Diagnostic Procedure Only (Routine) - Pending Review Specialty Diagnoses / Procedures Referred By Contact Refer red To Contact [facility] Diagnoses Encounter for screening mammogram for breast cancer Selwyn Mejias MD [facility] Procedures MALACHI SCREENING SCREENING MAMMOGRAPHY BI 2-VIEW BREAST INC CAD [address] [facility] [address] [place] [address] [place] [address] Referral ID Status Reason Start Expiration Visits Visits Date Date Requested Authorized [id number] Pending Auto-Generat 11/02/2021 12/02/2022 1 1 Review ed Referral [facility] Summary Purpose Family History No Family History Records FoundNo Family History Records FoundNo Family History Records Found Advance Directives No Advanced Directives Records Found Documents on File Type Date Recorded 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 Explanati on Advance Directive(s) Advance Directive(s) 08/24/2018 4:30 PM Documents on File Type Date Recorded 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 Explanati on Advance Directive(s) 12/01/2021 11:24 AM Documents on File Type Date Recorded 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 Explanati on Advance Directive(s) 12/01/2021 11:24 AM Reason for Referral Specialty Diagnoses / Procedures Referred By Contact Refer red To Contact Diagnoses COPD, severe (HCC) Lacy Manzanares, ELECTRIC POWER LINE REPAIRER.DUPLICATION SPECIALIST Procedures CONSULT TO PALLIATIVE CARE OFFICE/OUTPATIENT [facility] 60-74 MINUTES [address] [place] [address] Referral ID Status Reason Start Expiration Visits Visits Date Date Requested Authorized [id number] Authorized PCP Requested 01/27/2022 01/27/2023 1 1 Referral Additional Source Comments INFORMATION SOURCE (unrecognized section and content) DATE CREATED AUTHOR AUTHOR'S ORGANIZ ATION 11/16/2018 [facility] DATE CREATED AUTHOR AUTHOR'S ORGANIZATIO N 08/07/2020 [facility] DATE CREATED AUTHOR AUTHOR'S ORGANIZATIO N 03/24/2022 [facility] Source Comments (unrecognized section an d content) In the event this information is protect ed by the Federal Confidentiality of Alcohol and Drug Abuse Patient Records regulatio ns: This information has been disclosed to you from records protected by Federal co nfidentiality rules ( The Federal rules restrict any use of the information to criminally investigate or prosecute any alcohol or drug abuse patient. [facility] SystemIn the event this information is protected by t he Federal Confidentiality of Alcohol and Drug Abuse Patient Records regulations: This information has been disclosed to you from records protected by Federal confid entiality rules ( The Federal rules restrict any use of th e information to criminally investigate or prosecute any alcohol or drug abuse serjio ent. [facility] SystemIn the event this information is protected by the Federal Confidentiality of Alcohol and Drug Abuse Patient Records regulations: This inform ation has been disclosed to you from records protected by Federal confidentiality rul es ( The Federal rules restrict any use of the in formation to criminally investigate or prosecute any alcohol or drug abuse serjio ent. [facility] SystemIn the event this information is protected by the Federal Confidentiality of Alcohol and Drug Abuse Patient Records regulations: This inform ation has been disclosed to you from records protected by Federal confidentiality rul es ( The Federal rules restrict any use of the in formation to criminally investigate or prosecute any alcohol or drug abuse serjio ent. [facility] SystemIn the event this information is protected by the Federal Confidentiality of Alcohol and Drug Abuse Patient Records regulations: This inform ation has been disclosed to you from records protected by Federal confidentiality rul es ( The Federal rules restrict any use of the in formation to criminally investigate or prosecute any alcohol or drug abuse serjio ent. [facility] SystemIn the event this information is protected by the Federal Confidentiality of Alcohol and Drug Abuse Patient Records regulations: This inform ation has been disclosed to you from records protected by Federal confidentiality rul es ( The Federal rules restrict any use of the in formation to criminally investigate or prosecute any alcohol or drug abuse serjio ent. [facility] SystemIn the event this information is protected by the Federal Confidentiality of Alcohol and Drug Abuse Patient Records regulations: This inform ation has been disclosed to you from records protected by Federal confidentiality rul es ( The Federal rules restrict any use of the in formation to criminally investigate or prosecute any alcohol or drug abuse serjio ent. [facility] SystemIn the event this information is protected by the Federal Confidentiality of Alcohol and Drug Abuse Patient Records regulations: This inform ation has been disclosed to you from records protected by Federal confidentiality rul es ( The Federal rules restrict any use of the in formation to criminally investigate or prosecute any alcohol or drug abuse serjio ent. [facility] SystemIn the event this information is protected by the Federal Confidentiality of Alcohol and Drug Abuse Patient Records regulations: This inform ation has been disclosed to you from records protected by Federal confidentiality rul es ( The Federal rules restrict any use of the in formation to criminally investigate or prosecute any alcohol or drug abuse serjio ent. [facility] SystemIn the event this information is protected by the Federal Confidentiality of Alcohol and Drug Abuse Patient Records regulations: This inform ation has been disclosed to you from records protected by Federal confidentiality rul es ( The Federal rules restrict any use of the in formation to criminally investigate or prosecute any alcohol or drug abuse serjio ent. [facility] SystemIn the event this information is protected by the Federal Confidentiality of Alcohol and Drug Abuse Patient Records regulations: This inform ation has been disclosed to you from records protected by Federal confidentiality rul es ( The Federal rules restrict any use of the in formation to criminally investigate or prosecute any alcohol or drug abuse serjio ent. [facility] SystemIn the event this information is protected by the Federal Confidentiality of Alcohol and Drug Abuse Patient Records regulations: This inform ation has been disclosed to you from records protected by Federal confidentiality rul es ( The Federal rules restrict any use of the in formation to criminally investigate or prosecute any alcohol or drug abuse serjio ent. [facility] SystemIn the event this information is protected by the Federal Confidentiality of Alcohol and Drug Abuse Patient Records regulations: This inform ation has been disclosed to you from records protected by Federal confidentiality rul es ( The Federal rules restrict any use of the in formation to criminally investigate or prosecute any alcohol or drug abuse serjio ent. [facility] SystemIn the event this information is protected by the Federal Confidentiality of Alcohol and Drug Abuse Patient Records regulations: This inform ation has been disclosed to you from records protected by Federal confidentiality rul es ( The Federal rules restrict any use of the in formation to criminally investigate or prosecute any alcohol or drug abuse serjio ent. [facility] SystemIn the event this information is protected by the Federal Confidentiality of Alcohol and Drug Abuse Patient Records regulations: This inform ation has been disclosed to you from records protected by Federal confidentiality rul es ( The Federal rules restrict any use of the in formation to criminally investigate or prosecute any alcohol or drug abuse serjio ent. [facility] SystemIn the event this information is protected by the Federal Confidentiality of Alcohol and Drug Abuse Patient Records regulations: This inform ation has been disclosed to you from records protected by Federal confidentiality rul es ( The Federal rules restrict any use of the in formation to criminally investigate or prosecute any alcohol or drug abuse serjio ent. [facility] SystemIn the event this information is protected by the Federal Confidentiality of Alcohol and Drug Abuse Patient Records regulations: This inform ation has been disclosed to you from records protected by Federal confidentiality rul es ( The Federal rules restrict any use of the in formation to criminally investigate or prosecute any alcohol or drug abuse serjio ent. [facility] SystemIn the event this information is protected by the Federal Confidentiality of Alcohol and Drug Abuse Patient Records regulations: This inform ation has been disclosed to you from records protected by Federal confidentiality rul es ( The Federal rules restrict any use of the in formation to criminally investigate or prosecute any alcohol or drug abuse serjio ent. [facility] SystemIn the event this information is protected by the Federal Confidentiality of Alcohol and Drug Abuse Patient Records regulations: This inform ation has been disclosed to you from records protected by Federal confidentiality rul es ( The Federal rules restrict any use of the in formation to criminally investigate or prosecute any alcohol or drug abuse serjio ent. [facility] Reason for Visit (unrecognized section a nd content) Reason Onset Date Comments Refill Request 07/05/2021 Reason Onset Date Comments Refill Request 08/18/2021 Reason Comments Medication Follow-up Reason Comments Social Work Services Reason Comments Results, Lab Reason Comments Chest Pain Shortness of Breath Reason Comments Patient Update Reason Comments Patient Update Patient Question Reason Onset Date Comments Community Monitoring Outreach 11/23/2021 Initial CD M Outreach/ [facility] Reason Onset Date Comments Community Monitoring Outreach 12/02/2021 Initial CD M Outreach/ [facility] Reason Comments Patient Update unable to do lung biopsy Reason Comments F/U 6 months Reason Comments Biopsy of lung Reason Comments OT Plan of Care Update Reason Comments [id number] Initial Consult Reason Comments Medication Problem Patient Update Reason Comments [facility] Verbal order/med list/pallia tive care order Reason Comments plan of care Care Teams (unrecognized section and con tent) Investment [employer]ing Analyst Relationship Specialty Start Date End Date Selwyn Mejias MD PCP - General 12/17/[address] [place] [id number] Investment Banking Analyst Relationship Specialty Start Date End Date Selwyn Mejias MD PCP - General 12/17/[address] [place] [id number] Investment Banking Analyst Relationship Specialty Start Date End Date Selwyn Mejias MD PCP - General 12/17/[address] [place] [address] Investment Banking Analyst Relationship Specialty Start Date End Date Selwny Mejias MD PCP - General 12/17/[address] [place] [address] Investment Banking Analyst Relationship Specialty Start Date End Date Selwyn Mejias MD PCP - General 12/17/[address] [place] [address] Investment Banking Analyst Relationship Specialty Start Date End Date Selwyn Mejias MD PCP - General 12/17/[address] [place] [address], [place] [address] Investment Banking Analyst Relationship Specialty Start Date End Date Selwyn Mejias MD PCP - General 12/17/[address] [place] [address], [place] [address] Investment Banking Analyst Relationship Specialty Start Date End Date Selwyn Mejias MD PCP General 12/17/[address] [place] [address], [place] [address] Investment Banking Analyst Relationship Specialty Start Date End Date Selwyn Mejias MD PCP General 12/17/[address] [place] [address] [place] [address] Investment Banking Analyst Relationship Specialty Start Date End Date Selwyn Mejias MD PCP General 12/17/[address] [place] [address], [place] [address] Investment Banking Analyst Relationship Specialty Start Date End Date Selwyn Mejias MD PCP General 12/17/[address] [place] [address], [place] [address] Investment Banking Analyst Relationship Specialty Start Date End Date Selwyn Mejias MD PCP General 12/17/[address] [place] [address], [place] [address] Investment Banking Analyst Relationship Specialty Start Date End Date Selwyn Mejias MD PCP General 12/17/[address] [place] [address], [place] [address] Investment Banking Analyst Relationship Specialty Start Date End Date Selwyn Mejias MD PCP General 12/17/[address] [place] [address], [place] [address] Investment Banking Analyst Relationship Specialty Start Date End Date Selwyn Mejias MD PCP - General 12/17/06 [address] [place], [place] [id number] FOR RECORDS PERTAINING TO PATIENTS WHO ARE OR HAVE BEEN ENROLLED IN A CHEMICAL DEPENDENCY/SUBSTANCE ABUSE PROGRAM, SOME INFORMATION MAY BE OMITTED. This clinical summary was aggregated from multiple sources. Caution should be exercised in using it in the provision of clinical care. This summary normalizes information from multiple sources, and as a consequence, information in this document may materially change the coding, format and clinical context of patient data. In addition, data may be omittedin some cases. CLINICAL DECISIONS SHOULD BE BASED ON THE PRIMARY CLINICAL RECORDS. [facility] [employer] provides no warranty or guarantee of the accuracy or completeness of information in this document.
--- OUTSIDE RECORDS SUMMARY | 2022-03-24 15:02 | XMS RPT_ITS | CCD ---
[...] Onset buPROPion; Drug Allergy 05-08-[address] [facility] (20 sources) Translations: Change Work Phon e: [...] (Severe pain) for up to 7 days. [id number] 200 actuat albuterol 0.09 mg/actuat metered dose [...] nebulizer solution Indications: COPD wi th exacerbation ([facility]) Use 3 mL via nebulizer every 4 [...] ations: PAD daily (peripheral art jessa disease) ([facility]) Take 1 tablet b y mouth once [...] powder inhaler Anticholinergic, Start: 1 take 1 fuyicppwzmi-jsbvkcnag-xbxtkc er (20 sources) Corticosteroid, End: 12-13-2021 puff(s) [...] daily Gastroesophagea l reflux disease without esophagitis Ehrb e 1 capsule by mout h once daily. 30 capsu le 5 12/13/2021 Acti ve Comment on above: Take 1 capsule by mouth once daily. polyethylene glycol 3350 03124 mg powder for oral solution O smotic [...] [Compression fracture of T5 vertebra, initial encounter ([facility])] Other fractures Multiple fractures of Onset: Epi [...] CNPN on 01-30-2022 CNPN Telephone (MPPV) Normal [place] [facility] DALIA DREW ([id number]) 1955 [facility] Date Time Provider Department 01/30/22 SELWYN MEJIAS [facility] During your visit today, we recorded the [...] revoked orders and was adm itted to [facility] for exacerbation of her COPD. D/C and they are requesting orders for pa lliative care. Patient declined services from her [facility] team. Refusing to take medications. Razia English [...] Ma - Fully Assessed Reason for Visit: [id number] [Other] Initial Consult [665] Prescriptions as of 03/13/2022 - atorvastatin (LIPITOR) 10 mg tablet Take 1 tablet by mouth once daily. - citalopram (CELEXA) 20 mg tablet Take 1 tablet by mouth once daily. - ckrlgryzxia-bdkelqlyz-bndevtgy (TRELEGY ELLIPT A) 100-62.5-25 mcg inhalation powder [...] - Food Supplement, Lactose-Free (ENSURE ACTIVE HIGH ND OTEIN) liqd Take 237 mL by mouth [...] by this patie (more content not included)... [facility] on 01-27-2022 [facility] Telephone (INTMWS) [facility] DALIA DREW ([id number]) 1955 [facility] Date Time Provider Department 01/27/22 SELWYN MEJIAS INTMWS During your visit today, we recorded the following inf ormation about you: Ami Martin RN 01/27/2022 10:01 AM Signed Alley [facility] Skilled Nurse called in and reports [...] BP pills. Pt also refused to see [facility] anymore. She states their next v isit will be to discharge the patient from their services. Pt also states she hasn't followed up with PCP. She said Pt said she would come in on Sunday if pratima campos calls her, but she doesn't want to see the SUPPLY COORDINATOR she wants to see Dr Mikaela Mejias [...] 1 tablet by mouth once daily. - fdeairhiajw-yurddemmo-wdhileow (TRELEGY ELLIPT A) 100-62.5-25 mcg inhalation powder [...] - Food Supplement, Lactose-Free (ENSURE ACTIVE HIGH ND OTEIN) liqd Take 237 mL by mouth [...] (more content not included)... CNPN on 01-25-2022 [facility] Telephone (INTMWS) [facility] DALIA DREW ([id number]) 1955 [facility] Time Provider Department 01/25/22 SELWYN MEJIAS INTMWS During your visit today, we recorded the following inf ormation about you: Aida Nam LPN 01/25/2022 12:21 PM Signed Deisy with [facility], nursing requesting the followin)verbal orders for [facility] plan of care to see pt 1 time a week for 4 weeks. 2)pt was on hospice and revo ked orders and was admitted to [facility] for exacerbation of her COPD. D/C and they are requesting orders for pa lliative care. 3)requesting a copy of pt's current med list to be fax ed to [phone]. (Deisy states pt has medicatio ns all over her house and the need to know what she is to be taking) Aida Manzanares APRN.DIRECTOR CLINICAL APPLICATIONS 01/27/2022 3:20 PM Signed 1-OK C 2. OK palliative care, [facility] are previously 11/2021. 3. Send med lis Kaylyn Wallace Ma 01/27/2022 3:29 PM Signed Called Deisy, she states that patient has declined all care and kicked them out of her home and states she is not going to take any of her medications Lacy Manzanares APRN.DIRECTOR CLINICAL APPLICATIONS 02/07/2022 1:10 PM Signed noted Allergies As of Date: 01/25/2022 Noted Allergy Reactio n WELLBUTRIN SR (BUPROPION) 05/08/2008 1 - Mental Status Change Comments: made me hallucinate Date Reviewed: 12/13/2021 Reviewed by: Kaylyn Wallace Ma - Fully Assessed Reason for Visit: [facility] [Other] Cmt: Verbal order/med list/palliative c are order Primary Visit Diagnosis:COPD, severe (HCC) [J44.9] Order(s):CONSULT TO PALLIATIVE CARE [[id number]] Order #: [id number]: 1 FUTURE Prescriptions as of 02/07/2022 - atorvastatin (LIPITOR) 10 mg tablet Take 1 tablet by mouth once daily. - citalopram (CELEXA) 20 mg tablet Take 1 tablet by mouth once daily. - wiqsauljhlg-rlyviastp-mzbizxmf (TRELEGY ELLIPT A) 100-62.5-25 mcg inhalation powder [...] - Food Supplement, Lactose-Free (ENSURE ACTIVE HIGH ND OTEIN) liqd Take 237 mL by mouth [...] included)... CNPN on 01-23-2022 CNPN Telephone (INTMWS) [facility] DALIA DREW ([id number]) 1955 [facility] Date Time Provider Department 01/23/22 SELWYN MEJIAS INTMWS During your visit today, we recorded the following inf ormation about you: Gabby Herring RN 01/23/2022 11:00 AM Signed Guillermina with [facility] OT calling to state pat ient has one-time eval completed only. Patirnt does not require any further OT needs at this time. SpO2 was 96-98% room air during visit today. BP was 138/94 but this was after activity. Patient without any complaints or symptoms. RADHA Conroy, BAND INSTRUMENT REPAIRER.DIRECTOR CLINICAL APPLICATIONS 01/23/2022 3:32 PM Signed noted Allergies As [...] 1 tablet by mouth once daily. - rnflpztleqw-ystqaxbva-klnnrmny (TRELEGY ELLIPT A) 100-62.5-25 mcg inhalation powder [...] - Food Supplement, Lactose-Free (ENSURE ACTIVE HIGH ND OTEIN) liqd Take 237 mL by mouth [...] included)... CNPN on 01-20-2022 CNPN Telephone (INTMWS) [facility] DALIA DREW ([id number]) 1955 [facility] Time Provider Department 01/20/22 SELWYN MEJIAS INTMWS During your visit today, we recorded the following inf ormation about you: Brittany Magana LPN 01/20/2022 5:00 PM Signed Michelle calling with PT POC. Will be seeing patient for strength and gain training, safe transfers and pain management. 1 time a for 1 week 2 times for 2 weeks 1 time for 1 week. Lacy Manzanares APRN.DIRECTOR CLINICAL APPLICATIONS 01/23/2022 3:36 PM Signed Noted, agree Allergies [...] 1 tablet by mouth once daily. - cisyvmegvsw-hrbtjfcau-ciyjsnff (TRELEGY ELLIPT A) 100-62.5-25 mcg inhalation powder [...] - Food Supplement, Lactose-Free (ENSURE ACTIVE HIGH ND OTEIN) liqd Take 237 mL by mouth [...] included)... LUIZN on 01-19-2022 LUIZN Telephone (FAMPWS) [facility] DALIA DREW ([id number]) 1955 [facility] Date Time Provider Department 01/19/22 LACY MANZANARES During your visit today, we recorded the following inf ormation about you: Alyx Hickey LPN 01/19/2022 11:27 AM Signed Nallely from [facility] called, pt will be discharging from [facility] today. Pt/family has revoked hospice care, hospital has ordered nsg, PT AND OT Dx toxic encephalopathy AND UTI. Plan is to see pt binu barba. Will provider agree to follow? Alyx Manzanares APRN.DIRECTOR CLINICAL APPLICATIONS 01/19/2022 1:12 PM Signed Noted, OK. Refer to hospice at later date if willing. Racheal Lopez LPN 01/19/2022 1:47 PM Signed No answer. Left providers message for Nallely from [facility] on voice mail and ask to [...] 1 tablet by mouth once daily. - etejyivlffa-wathgaeyy-lthcamwb (TRELEGY ELLIPT A) 100-62.5-25 mcg inhalation powder [...] - Food Supplement, Lactose-Free (ENSURE ACTIVE HIGH ND OTEIN) liqd Take 237 mL by mouth [...] included)... CNPN on 12-15-2021 CNPN Telephone (INTMWS) [facility] DALIA DREW ([id number]) 1955 [facility] Date Time Provider Department 12/15/21 SELWYN [...] will call patient to schedule. Lacy Manzanares APRN.DIRECTOR CLINICAL APPLICATIONS 12/20/2021 7:31 AM Signed Has this been [...] 1 tablet by mouth once daily. - yjsmlxpemye-cuazfmpul-eeslqjkh (TRELEGY ELLIPT A) 100-62.5-25 mcg inhalation powder [...] - Food Supplement, Lactose-Free (ENSURE ACTIVE HIGH ND OTEIN) liqd Take 237 mL by mouth [...] (INTMWS) [facility] DALIA DREW ([id number]) 1955 [facility] Date Time Provider Department 12/13/21 9:40 AM SELWYN MEJIAS INTMWS During your visit today, we recorded the following inf ormation about you: Pulse Blood pressure Weight 97/minute 122/88 48.5 kg Selwyn Mejias MD 01/05/2022 2:37 PM Signed This note was created using Asthmatrackerriter. Subjective Dalia Drew is a 66 year [...] SOB. Working with Dr. Kirill Bentley at [facility] (suction operator). Plans for lung biopsy discussed. Noted BP [...] by mouth twice daily for 90 days. sxkabnlnzir-ozefggnet-rkbljhta (TRELEGY ELLIPTA) 100-6 2.5-25 mcg inhalation powder [...] (more content not included)... LUIZN on 12-05-2021 [facility] Telephone (INTMWS) [facility] DALIA DREW ([id number]) 1955 [facility] Date Time Provider Department 12/05/21 SELWYN MEJIAS INTALO During your visit today, we recorded the following inf ormation about you: Sugey Amezcuakallie [place] 12/05/2021 10:34 AM Signed Donya Nurse from [facility] calling was unable to do lung biopsy, [...] LPN 12/15/2021 2:32 PM Signed Nurse from [facility] was given providers message and verbali zed [...] 1 tablet by mouth once daily. - yfihtxvalvq-suczfqhkf-vjgjhfgi (TRELEGY ELLIPT A) 100-62.5-25 mcg inhalation powder [...] - Food Supplement, Lactose-Free (ENSURE ACTIVE HIGH ND OTEIN) liqd Take 237 mL by mouth [...] included)... CNPN on 11-25-2021 CNPN Telephone (INTMWS) [facility] DALIA Ramirez S ([id number]) 1955 [place] Date Time Provider Department 11/25/21 SELWYN MEJIAS During your visit today, we recorded the following inf ormation about you: Sugey Amezcuakallie [place] 11/25/2021 9:48 AM Signed Virgen from [facility] Junior Technical Writer calling asking if an y paper work patient needs to take to Dr Bentley-Hvac Service Manager? Did not see anyt erin in computer. Patient has appt scheduled today with Pulmonary toro kwon to update her HANDP for biopsy lung mass. Hoping patient does keep that appt. Virgen works counter clerk farm equipment parts and gave her oracle database manager, Delmy ph one number is [phone] if needed. Aware patient had cancelled her appt mid October with Lacy Manzanares SUPPLY COORDINATOR . Sugey Amezcuakallie [place] 11/25/2021 4:16 PM [...] cemail, she can always get it from suction operator if PCP does not want t o do it. Virgen is faxing copy of POA rVita care to the office also. She had giv en me grand daughter Mikala phone number is [phone]. She thinks serjio ent is having memory [...] Martin RN 11/29/2021 11:24 AM Signed Delmy [facility] CM called and is notified of providers [...] for Visit: Patient Update [1234] Patient Question [3337] Prescriptions as of 11/29/2021 - atorvastatin (LIPITOR) [...] mouth twice daily for 90 days. - ugyzlnitvvr-zaohlodhq-nyvmoclw (TRELEGY ELLIPT A) 100-62.5-25 mcg inhalation powder Inhale 1 Puff as instructed once daily. - aspirin 81 mg chewable tablet Take 1 tablet by mouth once daily. - Food Supplement, Lactose-Free (ENSURE ACTIVE HIGH ND OTEIN) liqd Take 237 mL by mouth [...] (more content not included)... CNPN on 11-07-2021 [facility] Telephone (INTMWS) [facility] DALIA Ramirez ([id number]) 1955 [facility] Time Provider Department 11/07/21 SELWYN MEJIAS INTMWS During your visit today, we recorded the following inf ormation about you: Cristine Escalante RN 11/07/2021 2:22 PM Signed Kaylyn - [facility] - phoned to see if patient has seen p cp recently- they were hoping they could get an H AND P, to do lung biopsy to [place], for lung mass. Reports patient was scheduled for this 2 weeks ago, bu t no showed. The 2nd time [facility] scheduled patient, patient was instructed to [...] [place] BESSIE 11/08/2021 4:03 PM Signed Called [facility] radiology dept. They will be doing pt s biopsy. They need an update HANDP. Pt missed several HANDP appts with Dr. Bentley the pulmo nologist with [facility]. Called pt to review the HANDP [...] mouth twice daily for 90 days. - cznlcqqiiep-zuqzgfqhb-ujqpdgph (TRELEGY ELLIPT A) 100-62.5-25 mcg inhalation powder Inhale 1 Puff as instructed once daily. - aspirin 81 mg chewable tablet Take 1 tablet by mouth once daily. - Food Supplement, Lactose-Free (ENSURE ACTIVE HIGH ND OTEIN) liqd Take 237 mL by mouth [...] included)... CNPN on 09-01-2021 CNPN Telephone (INTMWS) [facility] DALIA DREW ([id number]) 1955 [facility] Date Time Provider Department 09/01/21 LACY MANZANARES INTMWS During your visit today, we recorded the following inf ormation about you: Lacy Manzanares APRN.DIRECTOR CLINICAL APPLICATIONS 09/01/2021 4:49 PM Signed Please let he [...] Abs Lymph 1.00 - 4.00 k/uL 1.25 [place]% % 13.3 Abs [place] <0.87 k/uL 0.77 Eosin% % 3.1 Abs [...] mouth twice daily for 90 days. - gwmhdytszjg-ehvggsqnl-dnpdwzmf (TRELEGY ELLIPT A) 100-62.5-25 mcg inhalation powder Inhale 1 Puff as instructed once daily. - aspirin 81 mg chewable tablet Take 1 tablet by mouth once daily. - Food Supplement, Lactose-Free (ENSURE ACTIVE HIGH ND OTEIN) liqd Take 237 mL by mouth [...] Basophils (Bld) [#/Vol] 0.04 10*3/uL Normal <0.11 [facility] Comment on above: Order Comment: Specimen Type : BLOOD SPECIMENOrdering Facility: [facility] Address: [address] [address] Performed By: #### 35137-9 # ###[facility] LABIA [id number] [address] STATES OF [facility] Basophils/100 WBC (Bld) 0.7 % Normal [facility] Comment on above: Order Comment: Specimen Type : BLOOD SPECIMENOrdering Facility: [facility] Address: [address] [address] Performed By: #### 75366-0 # ###[facility] LABCLIA [id number] [place] [address] [place] Differential cell count method Nom (Bld) Auto Normal [facility] Comment on above: Order Comment: Specimen Type : BLOOD SPECIMENOrdering Facility: [facility] Address: [address] [place] [address] Performed By: #### 97272-3 # ###[facility] LABCLIA [id number] [place] [address] [place] Eosinophils (Bld) [#/Vol] 0.18 10*3/uL Normal <0.46 [facility] Comment on above: Order Comment: Specimen Type : BLOOD SPECIMENOrdering Facility: [facility] Address: [address] [place] [address] Performed By: #### 50390-5 # ###[facility] LABIA [id number] [place] [address] [place] Eosinophils/100 WBC (Bld) 3.1 % Normal [facility] Comment on above: Order Comment: Specimen Type : BLOOD SPECIMENOrdering Facility: [facility] Address: [address] [place], [place] [id number] Performed By: #### 85225-5 # ###[facility] LABIA [id number] [place] [address] [place] Erythrocyte distribution width 13.2 % Normal 11.5-15.0 [facility] (RBC) [Ratio] Comment on above: Order Comment: Specimen Type : BLOOD SPECIMENOrdering Facility: [facility] Address: [address] [place], [place] [address] Performed By: #### 89687-2 # ###[facility] LABIA [id number] [place] [address] [place] Hematocrit (Bld) [Volume fraction] 39.4 % Normal 36.0-4 6.0 [facility] Comment on above: Order Comment: Specimen Type : BLOOD SPECIMENOrdering Facility: [facility] Address: [address] [place] [address] Performed By: #### 80382-6 # ###[facility] LABIA [id number] [address] [place] Hemoglobin (Bld) [Mass/Vol] 12.9 g/dL Normal 11.5-15.5 [facility] Comment on above: Order Comment: Specimen Type : BLOOD SPECIMENOrdering Facility: [facility] Address: [address] [place] [address] Performed By: #### 49581-1 # ###[facility] LABIA [id number] [place] [address] [place] IMMATURE GRAN % 0.3 % Normal [facility] Comment on above: Order Comment: Specimen Type : BLOOD SPECIMENOrdering Facility: [facility] Address: [address] [place] [address] Performed By: #### 17897-4 # ###[facility] LABIA [id number] [place] [address] [place] IMMATURE GRAN ABS <0.03 Normal <0.10 [facility] Comment on above: Order Comment: Specimen Type : BLOOD SPECIMENOrdering Facility: [facility] Address: [address] [place], [place] [address] Performed By: #### 33249-4 # ###[facility] LABIA [id number] [place] [address] [place] Lymphocytes (Bld) [#/Vol] 1.25 10*3/uL Normal 1.00-4.00 [facility] Comment on above: Order Comment: Specimen Type : BLOOD SPECIMENOrdering Facility: [facility] Address: [address] [place] [address] Performed By: #### 62796-2 # ###[facility] LABIA [id number] [place] [address] [place] Lymphocytes/100 WBC (Bld) 21.5 % Normal [facility] Comment on above: Order Comment: Specimen Type : BLOOD SPECIMENOrdering Facility: [facility] Address: [address] [place] [address] Performed By: #### 40650-6 # ###[facility] LABCLIA [id number] [place] [address] [place] MCH (RBC) [Entitic mass] 30.4 pg Normal 26.0-34.0 [facility] Comment on above: Order Comment: Specimen Type : BLOOD SPECIMENOrdering Facility: [facility] Address: [address] [place], [place] [address] Performed By: #### 04336-5 # ###[facility] LABIA [id number] [place] [address] [place] MCHC (RBC) [Mass/Vol] 32.7 g/dL Normal 30.5-36.0 [facility] Comment on above: Order Comment: Specimen Type : BLOOD SPECIMENOrdering Facility: [facility] Address: [address] [place], [place] [address] Performed By: #### 13219-1 # ###[facility] LABIA [id number] [place] [address] [place] MCV (RBC) [Entitic vol] 92.9 fL Normal 80.0-100.0 [facility] Comment on above: Order Comment: Specimen Type : BLOOD SPECIMENOrdering Facility: [facility] Address: [address] [place], [place] [address] Performed By: #### 69690-3 # ###[facility] LABIA [id number] [place] [address] [place] Monocytes (Bld) [#/Vol] 0.77 10*3/uL Normal <0.87 [facility] Comment on above: Order Comment: Specimen Type : BLOOD SPECIMENOrdering Facility: [facility] Address: [address] [place], [place] [address] Performed By: #### 48721-6 # ###[facility] LABCLIA [id number] [place] [address] [place] Monocytes/100 WBC (Bld) 13.3 % Normal [facility] Comment on above: Order Comment: Specimen Type : BLOOD SPECIMENOrdering Facility: [facility] Address: [address] [place], [place] [address] Performed By: #### 62129-2 # ###[facility] LABCLIA [id number] [place] [address] [place] Neutrophils (Bld) [#/Vol] 3.55 10*3/uL Normal 1.45-7.50 [facility] Comment on above: Order Comment: Specimen Type : BLOOD SPECIMENOrdering Facility: [facility] Address: [address] [place], [place] [address] Performed By: #### 84538-6 # ###[facility] LABCLIA [id number] [place] [address] [place] Neutrophils/100 WBC (Bld) 61.1 % Normal [facility] Comment on above: Order Comment: Specimen Type : BLOOD SPECIMENOrdering Facility: [facility] Address: [address] [place] [address] Performed By: #### 58471-5 # ###[facility] LABCLIA [id number] [place] [address] [place] Nucleated RBC (Bld) [#/Vol] 10*3/uL Normal <0.01 [facility] Comment on above: Order Comment: Specimen Type : BLOOD SPECIMENOrdering Facility: [facility] Address: [address] [place], [place] [address] Performed By: #### 94674-1 # ###[facility] LABCLIA [id number] [place] [address] [place] Nucleated RBC/100 WBC (Bld) [Ratio] 0.0 /100 WBC Normal [facility] Comment on above: Order Comment: Specimen Type : BLOOD SPECIMENOrdering Facility: [facility] Address: [address] [place] [address] Performed By: #### 92723-3 # ###[facility] LABIA [id number] [place] [address] [place] Platelet mean volume (Bld) 10.1 fL Normal 9.0-12.7 C [facility] [Entitic vol] Comment on above: Order Comment: Specimen Type : BLOOD SPECIMENOrdering Facility: [facility] Address: [address] [place] [address] Performed By: #### 19242-1 # ###[facility] LABCLIA [id number] [place] [address] [place] Platelets (Bld) [#/Vol] 390 10*3/uL Normal 150-400 [facility] Comment on above: Order Comment: Specimen Type : BLOOD SPECIMENOrdering Facility: [facility] Address: [address] [place], [place] [address] Performed By: #### 03610-0 # ###[facility] LABIA [id number] [place] [address] [place] RBC (Bld) [#/Vol] 4.24 10*6/uL Normal 3.90-5.20 [facility] Comment on above: Order Comment: Specimen Type : BLOOD SPECIMENOrdering Facility: [facility] Address: [address] [place], [place] [address] Performed By: #### 76224-4 # ###[facility] LABCLIA [id number] [place] [address] [place] WBC (Bld) [#/Vol] 5.81 10*3/uL Normal 3.70-11.00 [facility] Comment on above: Order Comment: Specimen Type : BLOOD SPECIMENOrdering Facility: [facility] Address: [address] [place], [place] [address] Performed By: #### 70551-6 # ###[facility] LABCLIA [id number] [address] [address] [place] Comprehensive metabolic 2000 panel on 0 08-31-2021 Albumin [Mass/Vol] 4.3 g/dL Normal 3.9-4.9 [facility] Comment on above: Order Comment: Specimen Type : BLOOD SPECIMENOrdering Facility: [facility] Address: [address] [place], [place] [address] Performed By: #### 48166-0, 86239-1, LIPNF, 3016-3 ####[facility] LABCLIA 3 [id number] [place] [address] [place] ALP [Catalytic activity/Vol] 61 U/L Normal 34-123 [facility] Comment on above: Order Comment: Specimen Type : BLOOD SPECIMENOrdering Facility: [facility] Address: [address] [place], [place] [address] Performed By: #### 49220-7, 63031-6, LIPNF, 3016-3 ####[facility] LABCLIA 3 [id number] [address] [id number] [place] ALT [Catalytic activity/Vol] 12 U/L Normal 7-38 [facility] Comment on above: Order Comment: Specimen Type : BLOOD SPECIMENOrdering Facility: [facility] Address: [address] [place], [place] [id number] Performed By: #### 35670-4, 03328-4, LIPNF, 3016-3 ####[facility] LABCLIA [id number] [address] [place] Anion gap [Moles/Vol] 11 mmol/L Normal 9-18 [facility] Comment on above: Order Comment: Specimen Type : BLOOD SPECIMENOrdering Facility: [facility] Address: [address] [place] [address] Performed By: #### 96609-9, 46002-6, LIPNF, 6-3 ####[facility] LABCLIA [id number] [address] [place] AST [Catalytic activity/Vol] 17 U/L Normal 13-35 [facility] Comment on above: Order Comment: Specimen Type : BLOOD SPECIMENOrdering Facility: [facility] Address: [address] [place], [place] [id number] Performed By: #### 57430-3, 02322-6, LIPNF, 6-3 ####[facility] LABCLIA 3 [id number] [place] [id number] [place] Bilirubin [Mass/Vol] 0.7 mg/dL Normal 0.2-1.3 [facility] Comment on above: Order Comment: Specimen Type : BLOOD SPECIMENOrdering Facility: [facility] Address: [address] [place], [place] [address] Performed By: #### 07824-5, 51843-3, LIPNF, 6-3 ####[facility] LABCLIA [id number] [address] [place] Calcium [Mass/Vol] 9.0 mg/dL Normal 8.5-10.2 [facility] Comment on above: Order Comment: Specimen Type : BLOOD SPECIMENOrdering Facility: [facility] Address: [address] [place], [place] [phone] Performed By: #### 99172-8, 68186-6, LIPNF, 6-3 ####[facility] LABCLIA [id number] [address] [place] Chloride [Moles/Vol] 96 mmol/L Low 97-105 [facility] Comment on above: Order Comment: Specimen Type : BLOOD SPECIMENOrdering Facility: [facility] Address: [address] [place], [place] [phone] Performed By: #### 45140-8, 51585-0, LIPFABIANO, 6-3 ####[facility] LABCLIA [id number] [address] [place] CO2 [Moles/Vol] 26 mmol/L Normal 22-30 [facility] Comment on above: Order Comment: Specimen Type : BLOOD SPECIMENOrdering Facility: [facility] Address: [address] [place], [place] [address] Performed By: #### 80383-3, 76768-7, LIPFABIANO, 6-3 ####[facility] LABCLIA 3 [id number] [place] [address] [place] Creatinine [Mass/Vol] 0.54 mg/dL Low 0.58-0.96 [facility] Comment on above: Order Comment: Specimen Type : BLOOD SPECIMENOrdering Facility: [facility] Address: [address] [place] [address] Performed By: #### 91197-4, 31822-5, LIPFABIANO, 6-3 ####[facility] LABCLIA [id number] [address] [place] ESTIMATED GLOMERULAR 100 mL/min/1.73m??? Normal >=60 [facility] FILTRATION RATE Comment on above: Order Comment: Specimen Type : BLOOD SPECIMENOrdering Facility: [facility] Address: [address] [place], [place] [phone] Result Comment: Estimated Gl omerular Filtration Rate [...] accurately reflect actual GFR. Performed By: #### 52138-5, 86483-5, JANET, 6-3 ####[facility] LABCLIA [id number] [address] [place] Glucose [Mass/Vol] 97 mg/dL Normal 74-99 [facility] Comment on above: Order Comment: Specimen Type : BLOOD SPECIMENOrdering Facility: [facility] Address: [address] [id number] Result Comment: The [place] Diabetes Association (ADA) provides guidance for cutoff [...] for diagnosis of diabetes. Reference: Standards of [facility] Care in Diabetes 2016, [place] [employer] Association. Diabetes Care. 2016.39(Suppl 1). Performed By: #### 35542-6, 28137-7, JANET, 3015- ####[facility] LABCLIA [id number] [address] [place] Potassium [Moles/Vol] 4.0 mmol/L Normal 3.7-5.1 [facility] Comment on above: Order Comment: Specimen Type : BLOOD SPECIMENOrdering Facility: [facility] Address: [address] [place] [address] Performed By: #### 17089-9, 49801-5, JANET, 3015-3 ####[facility] LABCLIA [id number] [address] [place] Protein [Mass/Vol] 6.9 g/dL Normal 6.3-8.0 [facility] Comment on above: Order Comment: Specimen Type : BLOOD SPECIMENOrdering Facility: [facility] Address: [address] [place] [phone] Performed By: #### 26390-5, 57242-8, LIPNF, 6-3 ####[facility] LABCLIA [id number] [address] [place] [facility] Sodium [Moles/Vol] 133 mmol/L Low 136-144 [facility] Comment on above: Order Comment: Specimen Type : BLOOD SPECIMENOrdering Facility: [facility] Address: [address] [place], [place] [phone] Performed By: #### 86430-4, 04369-4, LIPNF, 6-3 ####[facility] LABCLIA [id number] [address] [place] [facility] Urea nitrogen [Mass/Vol] 16 mg/dL Normal 7-21 [facility] Comment on above: Order Comment: Specimen Type : BLOOD SPECIMENOrdering Facility: [facility] Address: [address] [place] [address] Performed By: #### 09279-2, 50941-3, LIPNF, 6-3 ####[facility] LABCLIA [id number] [address] [place] [facility] LIPID PANEL, NONFASTING on 08-31-2021 Cholesterol [Mass/Vol] 159 mg/dL Normal <200 [facility] Comment on above: Order Comment: Specimen Type : BLOOD SPECIMENOrdering Facility: [facility] Address: [address] [place] [phone] Result Comment: <200 mg/dL, Desirable 200-239 mg/dL, Borderline hi gh >239 mg/dL, High Performed By: #### 60359-2, 18872-8, LIPNF, 6-3 ####[facility] LABCLIA [id number] [address] [place] [facility] HDL CHOLESTEROL, NF 66 mg/dL Normal >[address] [facility] Comment on above: Order Comment: Specimen Type : BLOOD SPECIMENOrdering Facility: [facility] Address: [address] [place] [address] Result Comment: 40-59 mg/dL, Acceptable >59 mg/dL, High: Negative ri sk factor for coronary heart disease <40 mg/dL, Low: Positive ris k factor for coronary heart disease Performed By: #### 72724-0, 75452-0, JANET, 6-3 ####[facility] LABCLIA [id number] LDL CHOLESTEROL, NF 83 mg/dL Normal <[address] [facility] Comment on above: Order Comment: Specimen Type : BLOOD SPECIMENOrdering Facility: [facility] Address: [address] [place] [address] Result Comment: <100 mg/dL, Optimal 100-129 mg/dL, Near optimal/ above optimal 130-159 mg/dL, Borderline hi gh 160-189 mg/dL, High >189 mg/dL, Very high Secondary prevention optimal LDL Cholesterol levels are recommended to be < 70 mg/dL Performed By: #### 53980-7, 26653-1, LIPFABIANO, 6-3 ####[facility] LABCLIA [id number] LDL/HDL RATIO, NF 1.26 mg/dL Normal <2.54 [facility] Comment on above: Order Comment: Specimen Type : BLOOD SPECIMENOrdering Facility: [facility] Address: [address] [place] [address] Result Comment: Reference: 1. National Cholesterol Educ ation Program ATP III Guideline At-A-Glance Quick Desk Reference: National Heart, Lung, and Blood [place]. National Institutes of Health. 2001: NIH Publication No. 01-3305. 2. An International Atherosc lerosis Society position paper: global recommendations for the management of dyslipidemia: executive summary, Atherosclerosis. 2014: 232(2):410-413. Performed By: #### 36461-6, 62529-7, LIPNF, 3016-3 ####[facility] LABCLIA [id number] NON HDL CHOL, NF 93 mg/dL Normal <130 [facility] [place] Comment on above: Order Comment: Specimen Type : BLOOD SPECIMENOrdering Facility: [facility] Address: [address] [place] [address] Result Comment: <130 mg/dL, Optimal 130-159 mg/dL, Near optimal/ above optimal 160-189 mg/dL, Borderline hi gh 190-219 mg/dL, High >219 mg/dL, Very high Secondary prevention optimal non HDL Cholesterol levels are recommended to be <100 mg/dL Performed By: #### 96098-0, 29620-0, LIPNF, 3016-3 ####[facility] LABCLIA [id number] T CHOL/HDL RATIO NF 2.41 mg/dL Normal <5.[address] [facility] Comment on above: Order Comment: Specimen Type : BLOOD SPECIMENOrdering Facility: [facility] Address: [address] [place] [address] Performed By: #### 44911-9, 38894-8, LIPNF, 3016-3 ####[facility] LABCLIA [id number] TRIGLYCERIDES, NF 51 mg/dL Normal <150 [facility] Comment on above: Order Comment: Specimen Type : BLOOD SPECIMENOrdering Facility: [facility] Address: [address] [place], [place] [id number] Result Comment: <150 mg/dL, Normal 150-199 mg/dL, Borderline hi gh 200-499 mg/dL, High >499 mg/dL, Very high Performed By: #### 03575-1, 99016-0, LIPNF, 3016-3 ####[facility] LABCLIA [id number] [address] [place] [facility] VLDL CHOLESTEROL, NF 10 mg/dL Normal <30 [facility] Comment on above: Order Comment: Specimen Type : BLOOD SPECIMENOrdering Facility: [facility] Address: [address] [place] [address] Performed By: #### 52557-9, 30512-0, LIPNF, 3016-3 ####[facility] LABCLIA [id number] [address] [facility] Magnesium SerPl-mCnc on 08-31-2021 Magnesium [Mass/Vol] 1.9 mg/dL Normal 1.7-2.3 [facility] Comment on above: Order Comment: Specimen Type : BLOOD SPECIMENOrdering Facility: [facility] Address: [address] [place] [address] Performed By: #### 10845-7, 49056-0, LIPNF, 3016-3 ####[facility] LABCLIA 3 [id number] [address] [facility] TSH SerPl-aCnc on 08-31-2021 TSH Qn 1.210 m[IU]/L Normal 0.270-4.200 [facility] Comment on above: Order Comment: Specimen Type : BLOOD SPECIMENOrdering Facility: [facility] Address: [address] [place], [place] [phone] Performed By: #### 09888-7, 44371-4, LIPNF, 3016-3 ####[facility] LABCLIA 3 [id number] [place] [id number] [place] [facility] VITAMIN B12 BLOOD on 08-31-2021 Cobalamin (Vitamin B12) [Mass/Vol] pg/mL High 232-1, 245 [facility] Comment on above: Order Comment: Specimen Type : BLOOD SPECIMENOrdering Facility: [facility] Address: [address] [place], [place] [id number] Performed By: #### B12 ####[facility] LABCLIA [id number] [place] [address] [place] CNPN on 08-23-2021 CNPN Telephone (ISAI) [facility] DALIA DREW ([id number]) 1955 [place] Date Time Provider Department 08/23/21 JORGE FLEMING During your visit today, we recorded the following inf ormation about you: Jorge Fleming, PIPELINES LABORER 08/23/2021 9:59 AM Signed called and left message f or patient in regards to consult request to help with financial constraints and help around the house. Sw requested patient call back to discuss needs. Jorge Fleming, PIPELINES LABORER 08/24/2021 11:44 AM Signed left 2nd message for patient to return to [facility] s financial/home care assistance needs. Allergies [...] mouth twice daily for 90 days. - bhcbmxzkbyy-ttsnewusx-izctbnzx (TRELEGY ELLIPT A) 100-62.5-25 mcg inhalation powder Inhale 1 Puff as instructed once daily. - aspirin 81 mg chewable tablet Take 1 tablet by mouth once daily. - Food Supplement, Lactose-Free (ENSURE ACTIVE HIGH ND OTEIN) liqd Take 237 mL by mouth [...] CNOV Office Visit (INTMWS) Normal [facility] DALIA DREW ([id number]) 1955 [facility] Date Time Provider Department 08/19/21 9:40 AM LACY MANZANARES INTCristineWS During your visit today, we recorded the following inf ormation about you: Pulse Respiration Blood pressure Weight 93/minute 16/minute 132/88 51.7 kg Height 1.613 m Lacy Manzanares APRN.DIRECTOR CLINICAL APPLICATIONS 08/19/2021 10:45 AM Signed SUBJECTIVE: LUNG CANCER [...] from previous visit: She was admitted to [facility] er 9 through December 06, 2020. Admission [...] inhaler refill from Dr. Bentley Follow-up with suction operator: scheduled for next week, Dr. Bentley's office Complete medications: yes completed. Notes eating OK. Does not take any supplemental, nothi ng recommended at discharge notes continues to smoke, EtOH. Notes chronic back pain, stable, no alarm symptoms, ib uprofen seems to help somewhat. Not interested in physical therapy. Has not seen spine physician. X-ray completed in February. Requests [place]. Presents today for routine f ollow up visit. She reports no hos (more content not included)... CNCO on 08-09-2021 CNCO Letter Text [facility] [place] CNPN on 07-05-2021 CNPN Telephone (FAMPWS) [facility] DALIA DREW ([id number]) 1955 [facility] Date Time Provider Department 07/05/21 SELWYN [...] 1 capsule by mouth once daily. - efofhddtacv-wjciqziza-jpkxjgzk (TRELEGY ELLIPTA) 100 -62.5-25 mcg Inhale 1 Puff as instructed once daily. - ibuprofen (MOTRIN) 800 mg tablet Take 1 tablet by mouth every 8 hours as needed for lily n (back). - Food Supplement, Lactose-Free (ENSURE ACTIVE HIGH ND OTEIN) liqd Take 237 mL by mouth [...] OBSOLETE on 08-04-2020 OBSOLETE Refill (SPAGWO) Normal [facility] DALIA DREW ([id number]) 1955 F Medical Date Time Provider Department [...] Date Reviewed: 08/03/2020 Reviewed by: Lacy Manzanares APRN.DIRECTOR CLINICAL APPLICATIONS - Fully Assessed Reason for Visit: Refill [...] OBSOLETE on 05-05-2020 OBSOLETE Refill (SPAGWO) Normal [facility] DALIA DREW ([id number]) 1955 F Medical Date Time Provider Department [...] on 04-01-2020 CNOV Office Visit (SPAGWO) Normal [place] DALIA Mitchell ([id number]) 1955 [facility] Medical Date Time Provider Department Center 04/01/20 10:00 AM ERIC JEFFERSON (BAND INSTRUMENT REPAIRER.ADMINISTRATIVE UNDERWRITER) SPAGWO During your visit today, we recorded [...] - Chronic obstructive pulmonary disease (COPD) ([facility]) - Dysphagia, unspecified(787.20) - Emphysema lung (HCC) [...] OBSOLETE on 03-16-2020 OBSOLETE Refill (SPAGWO) Normal [facility] DALIA DREW ([id number]) 1955 F Medical Date Time Provider Department [...] on 03-04-2020 CNOV Office Visit (SPAGWO) Normal [place] DALIA Mitchell ([id number]) 1955 F Medical Date Time Provider Department Center 03/04/20 10:45 AM JOSE LANIER SPAGWO During your visit today, we recorded the following inf ormation about you: Temperature Weight Height CNPN on 02-25-2020 CNPN Telephone (AGSPINE3) Normal [place] DALIA Mitchell ([id number]) 1955 F Medical Date Time Provider Department Center 02/25/20 ERIC JEFFERSON (BAND INSTRUMENT REPAIRER.ADMINISTRATIVE UNDERWRITER) AGSPINE3 During your visit today, we recorded the following inf ormation about you: MATEO Crowell 02/25/2020 7:49 AM Signed ----- Message from Nasra Stinson sent at 02/24/2020 4:54 PM EST ----- Subject Line Format: [facility] [place]/ Eric forbes CNP Patient has been identified [...] other than patient: no Best contact number: [phone] Nasra Scott February 24, 2020 4:55 PM [...] on 02-12-2020 CNOV Office Visit (SPAGWO) Normal [facility] [place] [facility] VIKIDALIA Robbins ([id number]) 1955 F Medical Date Time Provider Department Center 02/12/20 9:45 AM JOSE LANIER SPAGWO During your visit today, we recorded the following inf ormation about you: Temperature Weight Height 97.9 degrees 54.4 kg 1.676 m Jose Lanier MD 02/15/2020 9:02 PM Signed [facility] [place] Interval Evaluation Form CHIEF COMPLAINT: Spine pain Interval HPI February 12, 2020 Patinet returns for f/u rega ridng above complaints, here for medication refill. Patient states she takes [place] which all ows her to function and [...] [facility] showed evidence of right-sided 6-7 rib fractures along with a compression fracture of the T5 vertebrae. Patient was admitted for pain control, neurosurgical/spine consult, and medical monitoring/treatment of her respiratory st atus. Patient was evaluated by the neurosurgery team who recommend ed non-surgical management of the T5 fracture. 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 60 tablet [...] OBSOLETE on 01-31-2020 OBSOLETE Refill (SPAGWO) Normal [facility] [place] [facility] DALIA DREW ([id number]) 1955 F Medical Date Time Provider Department [...] CNPN on 01-13-2020 CNPN Telephone (AGSPINE3) Normal [place] DALIA Mitchell ([id number]) 1955 F Medical Date Time Provider Department [...] on 12-18-2019 CNOV Office Visit (SPAGWO) Normal [place] [facility] DALIA DREW ([id number]) 1955 F Medical Date Time Provider Department Center 12/18/19 9:30 AM JOSE LANIER SPAGWO During your visit today, we recorded the following inf ormation about you: Temperature Weight Height Basic Panel on 08-30-2018 Creatinine [Mass/Vol] 0.44 mg/dL Low 0.51-0.95 [facility] Comment on above: Performed By: #### GFR #### [address] [address] Anion gap [Moles/Vol] 10 mmol/L Normal 8-16 [facility] Comment on above: Performed By: #### GFR #### [address] [address] Calcium [Mass/Vol] 9.0 mg/dL Normal 8.5-10.1 [facility] Comment on above: Performed By: #### GFR #### [address] [address] CO2 [Moles/Vol] 28 mmol/L Normal 21-32 [facility] Comment on above: Performed By: #### GFR #### [address] [address] Glucose [Mass/Vol] 92 mg/dL Normal 70-99 [facility] Comment on above: Performed By: #### GFR #### [address] [address] Urea nitrogen [Mass/Vol] 16 mg/dL Normal 7-18 [facility] Comment on above: Performed By: #### GFR #### [facility] [address] [address] Chloride [Moles/Vol] 101 mmol/L Normal 98-107 [facility] Comment on above: Performed By: #### GFR #### [facility] [address] [place] [address] Potassium [Moles/Vol] 4.1 mmol/L Normal 3.5-5.1 [facility] Comment on above: Performed By: #### GFR #### [facility] [address] [place] [address] Sodium [Moles/Vol] 135 mmol/L Low 136-145 [facility] Comment on above: Performed By: #### GFR #### [place] [address] Hemogram on 08-30-2018 Erythrocyte distribution width 12.8 % Normal 11.7-14.4 [facility] (RBC) [Ratio] Comment on above: Performed By: #### GFR #### [place] [address] Hematocrit (Bld) [Volume 38.2 % Normal 34.1-44.9 [facility] fraction] Comment on above: Performed By: #### GFR #### [place] [address] Hemoglobin (Bld) [Mass/Vol] 12.9 g/dL Normal 11.2-15.7 [facility] Comment on above: Performed By: #### GFR #### [facility] [address] [place] [address] MCH (RBC) [Entitic mass] 32.4 pg High 25.6-32.2 [facility] Comment on above: Performed By: #### GFR #### [place] [address] MCHC (RBC) [Mass/Vol] 33.8 % Normal 31.6-34.8 [facility] Comment on above: Performed By: #### GFR #### [facility] [address] [place], [place] [address] MCV (RBC) [Entitic vol] 96.0 fL High 79.4-94.8 [facility] Comment on above: Performed By: #### GFR #### [facility] [address] [place] [address] Platelet mean volume (Bld) [Entitic 9.3 fL Low 9.4-1 2.3 [facility] vol] Comment on above: Performed By: #### GFR #### [facility] [address] [place] [address] Platelets (Bld) [#/Vol] 377 thou/cmm High 182-369 [facility] Comment on above: Performed By: #### GFR #### [facility] [address] [place] [address] RBC (Bld) [#/Vol] 3.98 mil/cmm Normal 3.93-5.22 [facility] Comment on above: Performed By: #### GFR #### [facility] [address] [address] RDW SD 45.3 fl Normal 36.4-46.3 [facility] Comment on above: Performed By: #### GFR #### [facility] [address] [address] WBC (Bld) [#/Vol] 5.85 thou/cmm Normal 3.98-10.04 [facility] Comment on above: Performed By: #### GFR #### [facility] [address] [place] [address] MDRD GFR on 08-30-2018 GFR/1.73 sq M predicted mL/min/{1.73_m2} Normal >60mL/min/1.[address] [facility] among non-blacks MDRD System (S/P/Bld) [Vol rate/Area] Comment on above: Result Comment: If the patie nt is , multiply the result by 1.210. Performed By: #### GFR #### [facility] [address] [address] Basic Panel on 08-29-2018 Creatinine [Mass/Vol] 0.50 mg/dL Low 0.51-0.95 [facility] Comment on above: Performed By: #### GFR #### [facility] [address] [place] [address] Anion gap [Moles/Vol] 8 mmol/L Normal 8-16 [facility] Comment on above: Performed By: #### GFR #### [facility] [address] [place], [place] [address] CO2 [Moles/Vol] 28 mmol/L Normal 21-32 [facility] Comment on above: Performed By: #### GFR #### [facility] [address] [address] Urea nitrogen [Mass/Vol] 13 mg/dL Normal 7-18 [facility] Comment on above: Performed By: #### GFR #### [facility] [address] [address] Calcium [Mass/Vol] 8.4 mg/dL Low 8.5-10.1 [facility] Comment on above: Performed By: #### GFR #### [facility] [address] [address] Glucose [Mass/Vol] 90 mg/dL Normal 70-99 [facility] Comment on above: Performed By: #### GFR #### [facility] [address] [place] [address] Chloride [Moles/Vol] 101 mmol/L Normal 98-107 [facility] Comment on above: Performed By: #### GFR #### [facility] [address] [place] [address] Potassium [Moles/Vol] 4.1 mmol/L Normal 3.5-5.1 [facility] Comment on above: Performed By: #### GFR #### [facility] [address] [address] Sodium [Moles/Vol] 133 mmol/L Low 136-145 [facility] Comment on above: Performed By: #### GFR #### [facility] [address] [address] Hemogram on 08-29-2018 Erythrocyte distribution width 12.6 % Normal 11.7-14.4 [facility] (RBC) [Ratio] Comment on above: Performed By: #### GFR #### [facility] [address] [place] [address] Hematocrit (Bld) [Volume 36.5 % Normal 34.1-44.9 [facility] fraction] Comment on above: Performed By: #### GFR #### [facility] [address] [place] [address] Hemoglobin (Bld) [Mass/Vol] 12.3 g/dL Normal 11.2-15.7 [facility] Comment on above: Performed By: #### GFR #### [place] [address] MCH (RBC) [Entitic mass] 32.2 pg Normal 25.6-32.2 [facility] Comment on above: Performed By: #### GFR #### [place] [address] MCHC (RBC) [Mass/Vol] 33.7 % Normal 31.6-34.8 [facility] Comment on above: Performed By: #### GFR #### [place] [address] MCV (RBC) [Entitic vol] 95.5 fL High 79.4-94.8 [facility] Comment on above: Performed By: #### GFR #### [place] [address] Platelet mean volume (Bld) 9.5 fL Normal 9.4-12.3 [facility] [Entitic vol] Comment on above: Performed By: #### GFR #### [place] [address] Platelets (Bld) [#/Vol] 346 thou/cmm Normal 182-369 [facility] Comment on above: Performed By: #### GFR #### [place] [address] RBC (Bld) [#/Vol] 3.82 mil/cmm Low 3.93-5.22 [facility] Comment on above: Performed By: #### GFR #### [facility] [address] [address] RDW SD 44.1 fl Normal 36.4-46.3 [facility] Comment on above: Performed By: #### GFR #### [facility] [address] [address] WBC (Bld) [#/Vol] 5.69 thou/cmm Normal 3.98-10.04 [facility] Comment on above: Performed By: #### GFR #### [place] [address] Basic Panel on 08-28-2018 Creatinine [Mass/Vol] 0.65 mg/dL Normal 0.51-0.95 [facility] Comment on above: Performed By: #### P8 #### [facility] [address] [address] Anion gap [Moles/Vol] 10 mmol/L Normal 8-16 [facility] Comment on above: Performed By: #### P8 #### [place] [address] CO2 [Moles/Vol] 26 mmol/L Normal 21-32 [facility] Comment on above: Performed By: #### P8 #### [place] [address] Urea nitrogen [Mass/Vol] 28 mg/dL High 7-18 [facility] Comment on above: Performed By: #### P8 #### [facility] [address] [address] Calcium [Mass/Vol] 8.6 mg/dL Normal 8.5-10.1 [facility] Comment on above: Performed By: #### P8 #### [facility] [address] [place] [address] Glucose [Mass/Vol] 89 mg/dL Normal 70-99 [facility] Comment on above: Performed By: #### P8 #### [facility] [address] [place] [address] Chloride [Moles/Vol] 103 mmol/L Normal 98-107 [facility] Comment on above: Performed By: #### P8 #### [facility] [address] [address] Potassium [Moles/Vol] 4.0 mmol/L Normal 3.5-5.1 [facility] Comment on above: Performed By: #### P8 #### [facility] [address] [address] Sodium [Moles/Vol] 135 mmol/L Low 136-145 [facility] Comment on above: Performed By: #### P8 #### [facility] [address] [address] Hemogram on 08-28-2018 Erythrocyte distribution width 13.0 % Normal 11.7-14.4 [facility] (RBC) [Ratio] Comment on above: Performed By: #### P8 #### [facility] [address] [address] Hematocrit (Bld) [Volume 34.9 % Normal 34.1-44.9 [facility] fraction] Comment on above: Performed By: #### P8 #### [facility] [address] [address] Hemoglobin (Bld) [Mass/Vol] 11.8 g/dL Normal 11.2-15.7 [facility] Comment on above: Performed By: #### P8 #### [facility] [address] [place] [address] MCH (RBC) [Entitic mass] 32.5 pg High 25.6-32.2 [facility] Comment on above: Performed By: #### P8 #### [facility] [address] [address] MCHC (RBC) [Mass/Vol] 33.8 % Normal 31.6-34.8 [facility] Comment on above: Performed By: #### P8 #### [facility] [address] [place] [address] MCV (RBC) [Entitic vol] 96.1 fL High 79.4-94.8 [facility] Comment on above: Performed By: #### P8 #### [facility] [address] [address] Platelet mean volume (Bld) 9.7 fL Normal 9.4-12.3 [facility] [Entitic vol] Comment on above: Performed By: #### P8 #### [facility] [address] [place], [place] [address] Platelets (Bld) [#/Vol] 357 thou/cmm Normal 182-369 [facility] Comment on above: Performed By: #### P8 #### [facility] [address] [place] [address] RBC (Bld) [#/Vol] 3.63 mil/cmm Low 3.93-5.22 [facility] Comment on above: Performed By: #### P8 #### [facility] [address] [place] [address] RDW SD 46.2 fl Normal 36.4-46.3 [facility] Comment on above: Performed By: #### P8 #### [facility] [address] [place], [place] [address] WBC (Bld) [#/Vol] 6.36 thou/cmm Normal 3.98-10.04 [facility] Comment on above: Performed By: #### P8 #### [place] [address] Legionella Ag, Urine on 08-28-2018 Legionella Ag, Urine Test performed at [facility] Presumptive negative for L. pneumophilia serogroup 1 [...] on above: Performed By: #### GFR #### [facility] [address] [place] [address] Strep pneumoniae Ag on 08-28-2018 Strep pneumoniae Ag Test performed at [facility] Negative for Streptococcus pneumoniae antigen. System Presumptive negative for pneumococcal pneumonia, sugge sting no current or recent pneumococcal infection. Infection due to S. pneumoniae cannot be ruled out since the antigen present in the sample may be below the detection limit of the test. Comment on above: Performed By: #### GFR #### [facility] [address] [place], [place] [address] Total 25-OH Vitamin D on 08-28-2018 Total 25-OH Vitamin D 15.7 ng/mL Low 30.0-100.0 [facility] Comment on above: Performed By: #### GFR #### [facility] [address] [place], [place] [address] Basic Panel on 08-27-2018 Creatinine [Mass/Vol] 0.56 mg/dL Normal 0.51-0.95 [facility] Comment on above: Performed By: #### P8 #### [address] [address] Glucose [Mass/Vol] 92 mg/dL Normal 70-99 [facility] Comment on above: Performed By: #### P8 #### [address] [address] Urea nitrogen [Mass/Vol] 27 mg/dL High 7-18 [facility] Comment on above: Performed By: #### P8 #### [facility] [address] [place], [place] [address] Anion gap [Moles/Vol] 12 mmol/L Normal 8-16 [facility] Comment on above: Performed By: #### P8 #### [address] [address] Calcium [Mass/Vol] 8.7 mg/dL Normal 8.5-10.1 [facility] Comment on above: Performed By: #### P8 #### [facility] [address] [place], [place] [address] CO2 [Moles/Vol] 25 mmol/L Normal 21-32 [facility] Comment on above: Performed By: #### P8 #### [address] [address] Chloride [Moles/Vol] 102 mmol/L Normal 98-107 [facility] Comment on above: Performed By: #### P8 #### [facility] [address] [place] [address] Potassium [Moles/Vol] 4.0 mmol/L Normal 3.5-5.1 [facility] Comment on above: Performed By: #### P8 #### [facility] [address] [place] [address] Sodium [Moles/Vol] 135 mmol/L Low 136-145 [facility] Comment on above: Performed By: #### P8 #### [facility] [address] [place] [address] Blood Gas Arterial on 08-27-2018 Base Excess -1.3 mmol/L Normal -3.0-3.0 [facility] Comment on above: Performed By: #### P8 #### [facility] [address] [place] [address] FIO2 Value Not Given Normal [facility] Comment on above: Performed By: #### P8 #### [facility] [address] [place] [address] HCO3 (Bld) [Moles/Vol] 23.8 mmol/L Normal 21.0-28.0 [facility] Comment on above: Performed By: #### P8 #### [facility] [address] [place] [address] O2% Sat Arterial 91.4 % Low 96.0-100.0 [facility] Comment on above: Performed By: #### P8 #### [facility] [address] [place] [address] PCO2 Arterial 42.6 mm Hg Normal 35.0-45.0 [facility] Comment on above: Performed By: #### P8 #### [facility] [address] [place] [address] pH Arterial 7.363 Normal 7.350-7.450 [facility] Comment on above: Performed By: #### P8 #### [facility] [address] [address] PO2 Arterial 64.6 mm Hg Low 83.0-108.0 [facility] Comment on above: Performed By: #### P8 #### [place] [address] Cult and Smr Respiratory on 08-27-2018 Cult and Smr Respiratory Test performed at [facility] nter Normal [facility] Normal oropharyngeal mercy present. System Few Gram positive cocci in pairs Rare Mixed mercy Many Polymorphonuclear leukocytes Few Mononuclear cells Few Squamous epithelial cells Comment on above: Performed By: #### P8 #### [place] [address] Hemogram on 08-27-2018 Erythrocyte distribution width 13.0 % Normal 11.7-14.4 [facility] (RBC) [Ratio] Comment on above: Performed By: #### CBC1 #### [place] [address] Hematocrit (Bld) [Volume 38.6 % Normal 34.1-44.9 [facility] fraction] Comment on above: Performed By: #### CBC1 #### [place] [address] Hemoglobin (Bld) [Mass/Vol] 13.0 g/dL Normal 11.2-15.7 [facility] Comment on above: Performed By: #### CBC1 #### [place] [address] MCH (RBC) [Entitic mass] 32.5 pg High 25.6-32.2 [facility] Comment on above: Performed By: #### CBC1 #### [place] [address] MCHC (RBC) [Mass/Vol] 33.7 % Normal 31.6-34.8 [facility] Comment on above: Performed By: #### CBC1 #### [place] [address] MCV (RBC) [Entitic vol] 96.5 fL High 79.4-94.8 [facility] Comment on above: Performed By: #### CBC1 #### [place] [address] Platelet mean volume (Bld) 9.6 fL Normal 9.4-12.[address] [facility] [Entitic vol] Comment on above: Performed By: #### CBC1 #### [facility] [address] [place], [place] [address] Platelets (Bld) [#/Vol] 356 thou/cmm Normal 182-369 [facility] Comment on above: Performed By: #### CBC1 #### [facility] [address] [place] [address] RBC (Bld) [#/Vol] 4.00 mil/cmm Normal 3.93-5.22 [facility] Comment on above: Performed By: #### CBC1 #### [facility] [address] [place] [address] RDW SD 46.7 fl High 36.4-46.3 [facility] Comment on above: Performed By: #### CBC1 #### [facility] [address] [place] [address] WBC (Bld) [#/Vol] 8.84 thou/cmm Normal 3.98-10.04 [facility] Comment on above: Performed By: #### CBC1 #### [facility] [address] [place] [address] Ionized Calcium on 08-27-2018 Ionized Ca,PH7.4 4.49 mg/dL Low 4.61-5.17 [facility] Comment on above: Performed By: #### P8 #### [facility] [address] [place] [address] pH (Bld) 7.358 [pH] Normal 7.320-7.430 [facility] Comment on above: Performed By: #### P8 #### [facility] [address] [place] [address] Ionized Calcium 4.59 mg/dL Low 4.61-5.17 [facility] Comment on above: Performed By: #### P8 #### [facility] [address] [place], [place] [address] LD,Total Blood on 08-27-2018 LD,Total Blood 153 U/L Normal 84-246 [facility] Comment on above: Performed By: #### P8 #### [facility] [address] [place] [address] MRSA Screen on 08-27-2018 MRSA DNA DEVAN+probe Ql Test performed at [facility] r Normal [facility] (Unsp spec) No MRSA detected. System Comment on above: Performed By: #### GFR #### [facility] [address] [place] [address] Magnesium Blood on 08-27-2018 Magnesium [Mass/Vol] 1.9 mg/dL Normal 1.6-2.6 [facility] Comment on above: Performed By: #### P8 #### [facility] [address] [place] [address] Phosphorus Blood on 08-27-2018 Phosphate [Mass/Vol] 5.3 mg/dL High 2.5-4.9 [facility] Comment on above: Performed By: #### P8 #### [facility] [address] [place] [address] Prealbumin on 08-27-2018 Prealbumin [Mass/Vol] 14.1 mg/dL Low 20.0-40.0 [facility] Comment on above: Performed By: #### P8 #### [facility] [address] [place] [address] Total Protein on 08-27-2018 Protein [Mass/Vol] 6.1 g/dL Low 6.4-8.2 [facility] Comment on above: Performed By: #### P8 #### [facility] [address] [place] [address] Activated PTT on 08-26-2018 aPTT Coag (Bld) [Time] 25.1 s Normal 23.0-32.4 [facility] Comment on above: Result Comment: Unfractionat ed [...] AP TT reagent in use throughout the [facility]. Performed By: #### APTT #### [facility] [address] [place], [place] [address] Ammonia on 08-26-2018 Ammonia (P) [Mass/Vol] 38 umol/L Critically high 11-32 [facility] Comment on above: Performed By: #### ANDI ### # [facility] [address] [place], [place] [address] Basic Panel on 08-26-2018 Creatinine [Mass/Vol] 0.63 mg/dL Normal 0.51-0.95 [facility] Comment on above: Performed By: #### P8 #### [facility] [address] [place], [place] [address] Urea nitrogen [Mass/Vol] 26 mg/dL High 7-18 [facility] Comment on above: Performed By: #### P8 #### [facility] [address] [place], [place] [address] Anion gap [Moles/Vol] 9 mmol/L Normal 8-16 [facility] Comment on above: Performed By: #### P8 #### [facility] [address] [place], [place] [address] Calcium [Mass/Vol] 8.6 mg/dL Normal 8.5-10.1 [facility] Comment on above: Performed By: #### P8 #### [facility] [address] [place], [place] [address] CO2 [Moles/Vol] 25 mmol/L Normal 21-32 [facility] Comment on above: Performed By: #### P8 #### [facility] [address] [place], [place] [address] Glucose [Mass/Vol] 97 mg/dL Normal 70-99 [facility] Comment on above: Performed By: #### P8 #### [facility] [address] [place], [place] [address] Chloride [Moles/Vol] 103 mmol/L Normal 98-107 [facility] Comment on above: Performed By: #### P8 #### [facility] [address] [place] [address] Potassium [Moles/Vol] 3.7 mmol/L Normal 3.5-5.1 [facility] Comment on above: Performed By: #### P8 #### [facility] [address] [place] [address] Sodium [Moles/Vol] 133 mmol/L Low 136-145 [facility] Comment on above: Performed By: #### P8 #### [facility] [address] [place] [address] Hemogram on 08-26-2018 Erythrocyte distribution width 12.9 % Normal 11.7-14.4 [facility] (RBC) [Ratio] Comment on above: Performed By: #### CBC1 #### [facility] [address] [place] [address] Hematocrit (Bld) [Volume 35.8 % Normal 34.1-44.9 [facility] fraction] Comment on above: Performed By: #### CBC1 #### [facility] [address] [place] [address] Hemoglobin (Bld) [Mass/Vol] 11.9 g/dL Normal 11.2-15.7 [facility] Comment on above: Performed By: #### CBC1 #### [facility] [address] [place] [address] MCH (RBC) [Entitic mass] 32.4 pg High 25.6-32.2 [facility] Comment on above: Performed By: #### CBC1 #### [facility] [address] [place] [address] MCHC (RBC) [Mass/Vol] 33.2 % Normal 31.6-34.8 [facility] Comment on above: Performed By: #### CBC1 #### [facility] [address] [place] [address] MCV (RBC) [Entitic vol] 97.5 fL High 79.4-94.8 [facility] Comment on above: Performed By: #### CBC1 #### [facility] [address] [place] [id number] Platelet mean volume (Bld) 9.5 fL Normal 9.4-12.3 [facility] [Entitic vol] Comment on above: Performed By: #### CBC1 #### [facility] [address] [place] [id number] Platelets (Bld) [#/Vol] 297 thou/cmm Normal 182-369 [facility] Comment on above: Performed By: #### CBC1 #### [facility] [address] [place] [id number] RBC (Bld) [#/Vol] 3.67 mil/cmm Low 3.93-5.22 [facility] Comment on above: Performed By: #### CBC1 #### [facility] [address] [place] [address] RDW SD 46.5 fl High 36.4-46.3 [facility] Comment on above: Performed By: #### CBC1 #### [facility] [address] [place] [id number] WBC (Bld) [#/Vol] 6.27 thou/cmm Normal 3.98-10.04 [facility] Comment on above: Performed By: #### CBC1 #### [facility] [address] [place] [id number] Protime on 08-26-2018 INR Coag (PPP) [Relative time] 1.04 {INR} Normal 0.90-1.30 [facility] Comment on above: Result Comment: Vitamin K An tagonist (VKA) Therapeutic Range: INR 2 to 3 (Target INR of 2.5) Note: For patients treated w ith VKA drugs, such as warfarin, the [employer] 2012 Guideline [...] INR o f 3) Note: Patients with air brake mechanic al aortic valve replacement and additional risk factors for thromboembolic events (atrial fibrillation, previous throm boembolism, LV dysfunction, hypercoagulable conditions) or an older generation mechanical AVR (i.e., ball in-Cage) or any mechanical MVR should have a INR therapeutic range of 2 .5 to 3.5 target INR of 3). Mariana MARIA, et al. Chest 2012 ; 141:7S-47S Sravani NOLEN et al. [facility] 20 ; 70: 252-289 Performed By: #### PT #### [facility] [address] [place], [place] [address] PT Coag (PPP) [Time] 10.8 s Normal 9.7-13.0 [facility] Comment on above: Performed By: #### PT #### [address] [address] Basic Panel on 08-25-2018 Creatinine [Mass/Vol] 0.43 mg/dL Low 0.51-0.95 [facility] Comment on above: Performed By: #### P8 #### [address] [address] Urea nitrogen [Mass/Vol] 15 mg/dL Normal 7-18 [facility] Comment on above: Performed By: #### P8 #### [facility] [address] [place], [place] [address] Anion gap [Moles/Vol] 13 mmol/L Normal 8-16 [facility] Comment on above: Performed By: #### P8 #### [address] [address] Calcium [Mass/Vol] 8.7 mg/dL Normal 8.5-10.1 [facility] Comment on above: Performed By: #### P8 #### [facility] [address] [place], [place] [address] CO2 [Moles/Vol] 23 mmol/L Normal 21-32 [facility] Comment on above: Performed By: #### P8 #### [facility] [address] [place], [place] [address] Chloride [Moles/Vol] 100 mmol/L Normal 98-107 [facility] Comment on above: Performed By: #### P8 #### [facility] [address] [place] [address] Glucose [Mass/Vol] 135 mg/dL High 70-99 [facility] Comment on above: Performed By: #### P8 #### [facility] [address] [place], [place] [address] Potassium [Moles/Vol] 3.6 mmol/L Normal 3.5-5.1 [facility] Comment on above: Performed By: #### P8 #### [facility] [address] [place] [address] Sodium [Moles/Vol] 132 mmol/L Low 136-145 [facility] Comment on above: Performed By: #### P8 #### [facility] [address] [place] [address] Hemogram on 08-25-2018 Erythrocyte distribution width 12.7 % Normal 11.7-14.4 [facility] (RBC) [Ratio] Comment on above: Performed By: #### CBC1 #### [facility] [address] [place] [address] Hematocrit (Bld) [Volume 39.7 % Normal 34.1-44.9 [facility] fraction] Comment on above: Performed By: #### CBC1 #### [facility] [address] [place] [address] Hemoglobin (Bld) [Mass/Vol] 13.6 g/dL Normal 11.2-15.7 [facility] Comment on above: Performed By: #### CBC1 #### [facility] [address] [place] [address] MCH (RBC) [Entitic mass] 32.7 pg High 25.6-32.2 [facility] Comment on above: Performed By: #### CBC1 #### [facility] [address] [place] [address] MCHC (RBC) [Mass/Vol] 34.3 % Normal 31.6-34.8 [facility] Comment on above: Performed By: #### CBC1 #### [facility] [address] [place] [address] MCV (RBC) [Entitic vol] 95.4 fL High 79.4-94.8 [facility] Comment on above: Performed By: #### CBC1 #### [facility] [address] [place] [address] Platelet mean volume (Bld) 9.6 fL Normal 9.4-12.3 [facility] [Entitic vol] Comment on above: Performed By: #### CBC1 #### [facility] [address] [place] [address] Platelets (Bld) [#/Vol] 366 thou/cmm Normal 182-369 [facility] Comment on above: Performed By: #### CBC1 #### [facility] [address] [place] [address] RBC (Bld) [#/Vol] 4.16 mil/cmm Normal 3.93-5.22 [facility] Comment on above: Performed By: #### CBC1 #### [facility] [address] [place] [address] RDW SD 43.9 fl Normal 36.4-46.3 [facility] Comment on above: Performed By: #### CBC1 #### [facility] [address] [place] [address] WBC (Bld) [#/Vol] 8.90 thou/cmm Normal 3.98-10.04 [facility] Comment on above: Performed By: #### CBC1 #### [facility] [address] [place] [id number] Vital Signs Date Time Vital Sign Value Performing Facility Clinician 12-13-2021 Diastolic blood 88 mm[Hg] Selwyn Mjeias MD [facility] 10: pressure Work Phone: 12-13-2021 Systolic blood 122 mm[Hg] Selwyn Mejias MD [facility] 10:40 pressure Work Phone: 12-13-2021 Body weight 48.53 kg Selwyn Mejias MD [facility] 10: Work Phone: 12-13-2021 Heart rate 97 /min Selwyn Mejias MD [facility] 10: Work Phone: 12-13-2021 SaO2% (BldA) [Mass 91 % Selwyn Mejias MD [facility] 10:040 fraction] Work Phone: 08-19-2021 Body height 161.3 cm Lacy Manzanares BAND INSTRUMENT REPAIRER.[facility] [id number] Work Phone: 08-19-2021 Body weight 51.71 kg Lacy Manzanares BAND INSTRUMENT REPAIRER.[facility] [id number] Work Phone: 08-19-2021 Diastolic blood 88 mm[Hg] Lacy Manzanares BAND INSTRUMENT REPAIRER.[facility] [id number] pressure Work Phone: 08-19-2021 Heart rate 93 /min Lacy Manzanares BAND INSTRUMENT REPAIRER.[facility] [id number] Work Phone: 08-19-2021 Respiratory rate 16 /min Lacy Manzanares BAND INSTRUMENT REPAIRER.[facility] [id number] Work Phone: 08-19-2021 SaO2% (BldA) [Mass 94 % Lacy Manzanares BAND INSTRUMENT REPAIRER.[facility] [id number] fraction] Work Phone: 08-19-2021 Systolic blood 132 mm[Hg] Lacy Manzanares BAND INSTRUMENT REPAIRER.[employer] [facility] [id number] pressure Work Phone: 08-27-2018 Body temperature 36.4 [facility] 19:0400 Health System Comment on above: Performed By: #### P8 #### [address] [address] Encounters Encounter Date Encounter Type Care Provider Facility Start: 03-23-2022 ambulatory ERIN DILLARD Facility:[facility] Start: 01-30-2022 Telephone encounter Selwyn Mejias MD [employer] Work Phone: Comment on above: [phone]; Initial Consult Start: 01-27-2022 Telephone encounter Selwyn Mejias MD Intern[facility] l [facility] Work Phone: [place] Comment on above: Medication Problem; Patient Update Start: 01-25-2022 Telephone encounter Selwyn Mejias MD Interna l Medicine Work Phone: [place] Comment on above: [facility] (Verbal order/med lis t/palliative care order) [...] of lung Start: 12-13-2021 ambulatory SELWYN MEJIAS Facility:[facility] End: 12-13-2021 Hospital Start: 12-13-2021 Office outpatient Selwyn Mejias MD Internal Medicine [place] End: 12-13-2021 visit 25 minutes Work Phone: Comment on above: Essential hypertension (Prim roberta Dx); Lung mass; PAD (peripheral artery disea se) ([facility]); Compression fracture of T5 v ertebra, sequela; Tobacco use disorder; Gastroesophageal reflux dise ase without esophagitis; COPD, severe ([facility]); Cough; Cervical spondylosis without myelopathy; Lumbosacral spondylosis with out myelopathy; Compression fracture of T5 v ertebra with routine healing, subsequent encounter; Closed fracture of multiple ribs of right side with routine healing; Chronic respiratory failure with hypoxia ([facility]); Protein-calorie malnutrition , unspecified severity ([facility]) Start: 12-05-2021 Telephone encounter Selwyn Mejias MD [...] Start: 11-02-2021 ambulatory Selwyn Mejias MD Internal Or dicine Main Work Phone: [place] Start: 09-28-2021 ambulatory Selwyn Mejias MD Internal Or dicine [place] Work Phone: Comment on above: Chest Pain; Shortness of Thalia ath Start: 09-01-2021 Telephone encounter Lacy Manzanares BAND INSTRUMENT REPAIRER.DIRECTOR CLINICAL APPLICATIONS Inte rnal Medicine Work Phone: [place] Comment on above: Results, Lab Start: 08-31-2021 [facility] Facility:[facility] End: 08-31-2021 Hospital Start: 08-23-2021 Telephone encounter Jorge Lonnie PIPELINES LABORER Navigat ion Comment on above: Social Work Services Start: 08-19-2021 [facility] Facility:[facility] End: 08-20-2021 Hospital Start: 08-19-2021 Patient encounter Lacyfatoumata Manzanares BAND INSTRUMENT REPAIRER.DIRECTOR CLINICAL APPLICATIONS Public Address Announcer al Medicine [place] End: 08-19-2021 procedure Work Phone: Comment on above: COPD, severe (HCC) (Primary Dx); Encounter for screening for lung cancer; Need for shingles vaccine; Encounter for immunization; Chronic bronchitis, unspecif ied chronic bronchitis type ([facility]); Tobacco use disorder; Hypoxia; Gastroesophageal reflux dise ase without esophagitis; PAD (peripheral artery disea se) ([facility]); Gastroesophageal reflux dise ase without esophagitis; Compression [...] profile DTAP,TDAP,TD (3 - T d or [facility] Tdap) Start: 08-31-2026 LIPID SCREEN LIPID SCREEN [place] [facility] Start: 08-31-2024 DIABETES SCREEN DIABETES SCREEN [facility] Start: 12-13-2022 ANNUAL PCP TEAM CHRONIC ANNUAL PCP TEAM [facility] DISEASE VISIT DISEASE VISIT Start: 03-16-2022 LIPID SCREEN LIPID SCREEN [facility] Start: 12-13-2021 ANNUAL [facility] TE[facility] Start: 11-24-2021 Influenza vaccination [facility] Start: 11-22-2021 ANNUAL PCP TEAM CHRONIC ANNUAL PCP TEAM [facility] DISEASE VISIT DISEASE VISIT Start: 11-22-2021 COLORECTAL CANCER COLORECTAL CANCER [facility] SCREENING SCREENING Comment on above: Postponed from 1998 (D eclined at this time) Start: 11-11-2021 PNEUMOCOCCAL: 65+ (2 - PNEUMOCOCCAL: 65+ (2 - [facility] PCV) PCV) Comment on above: Postponed from 01/10/2013 (D eclined at this time) Start: 11-11-2021 PNEUMOVAX AGE 65 AND OVER PNEUMOVAX AGE [address] [facility] WITH 5YR LOOKBACK (#1) WITH 5YR LOOKBACK (#1) Comment on above: Postponed from 2018 (D eclined at this time) Start: 08-30-2021 DIABETES SCREEN DIABETES SCREEN [facility] Start: 08-23-2021 CBC W Auto CBC + DIFF Lab Routine [facility] End: 08-04-2022 Differential panel - Chronic bronchitis, Work Ph one: Blood unspecified chronic bronchitis type (HCC) Tobacco use disorder Gastroesophageal reflux disease without esophagitis Gastroesophageal reflux disease without esophagitis Expected: 08/23/2021 (Approximate), Expires: 08/04/2022 Comment on above: Expected: 08/23/2021 (Approx imate), Expires: 08/04/2022 Start: 08-23-2021 Comprehensive COMP METABOLIC PANEL Lab [facility] End: 08-04-2022 metabolic 2000 panel Routine Chronic Work Phone: - Serum or Plasma bronchitis, unspecified chronic bronchitis type (HCC) Tobacco use disorder Gastroesophageal reflux disease without esophagitis Gastroesophageal reflux disease without esophagitis Expected: 08/23/2021 (Approximate), Expires: 08/04/2022 Comment on above: Expected: 08/23/2021 (Approx imate), Expires: 08/04/2022 Start: 08-23-2021 Magnesium MAGNESIUM BLD Lab [facility] End: 08-04-2022 [Mass/volume] in Serum Routine Reactive Work Misty ne: or Plasma depression Generalized anxiety disorder Expected: 08/23/2021 (Approximate), Expires: 08/04/2022 Comment on above: Expected: 08/23/2021 (Approx imate), Expires: 08/04/2022 Start: 08-23-2021 Thyrotropin TSH BLD Lab Routine [facility] End: 08-04-2022 [Units/volume] in Reactive depression Work Phone : Serum or Plasma Generalized anxiety disorder Expected: 08/23/2021 (Approximate), Expires: 08/04/2022 Comment on above: Expected: 08/23/2021 (Approx imate), Expires: 08/04/2022 Start: 08-23-2021 VITAMIN B12 BLOOD VITAMIN B12 BLOOD Lab [facility] End: 08-04-2022 Routine Reactive Work Phone: depression Generalized anxiety disorder Expected: 08/23/2021 (Approximate), Expires: 08/04/2022 Comment on above: Expected: 08/23/2021 (Approx imate), Expires: 08/04/2022 Start: 03-26-2021 ADVANCE DIRECTIVE ADVANCE DIRECTIVE [facility] DISCUSSION DISCUSSION Start: 03-03-2021 COVID-19 VACCINE (2 - COVID-19 VACCINE (2 - Cl [facility] Booster for Mark Booster for Mark series) series) Start: 12-24-2020 BP CONTROLLED (<130/80) BP CONTROLLED (<130/80 ) [facility] Start: 09-15-2018 Colonoscopy COLONOSCOPY [facility] Start: 09-15-2018 COLORECTAL CANCER COLORECTAL CANCER [facility] SCREENING SCREENING Start: 2018 BONE DENSITY BONE DENSITY [facility] Start: 07-01-2014 Mammography MAMMOGRAM [facility] Start: 01-10-2013 PNEUMOCOCCAL: 65+ (2 - PNEUMOCOCCAL: 65+ (2 - [facility] PCV) PCV) Start: 08-14-2003 Influenza vaccination LUNG CANCER SCREENING [facility] Start: 08-14-2003 SHINGRIX VACCINE (1 of SHINGRIX VACCINE ([address] [facility] 2) 2) Start: 1998 COLOGUARD (FIT-DNA) COLOGUARD (FIT-DNA) [facility] Start: [address] COLONOGRAPHY [facility] Start: 1998 FECAL OCCULT BLOOD FECAL OCCULT BLOOD [facility] Start: 1998 SIGMOIDOSCOPY SIGMOIDOSCOPY [facility] Start: 08-14-1983 Zoledronic acid therapy ALPHA-1 ANTITRYPSIN [facility] DEFICIENCY SCREENING Screening mammography bi MALACHI SCREENING Radiology [facility] End: 12-02-2022 2-view breast inc cad Routine Encounter for Work Phone: screening mammogram for breast cancer 1 Occurrences starting 11/02/2021 until 12/02/2022 Comment on above: 1 Occurrences starting 11/02 until 12/02/2022 [facility] Immunizations Immunization Date Immunization Notes Care Provider Facility 08-24-2018 tetanus toxoid, reduced Selwyn Mejias MD [facility] diphtheria toxoid, and Work Phone: Work Phone: acellular pertussis vaccine, adsorbed 01-11-2012 pneumococcal Selwyn Mejias MD [facility] linic polysaccharide vaccine, Work Phone: 23 valent 01-11-2012 tetanus toxoid, reduced Selwyn Mejias MD [facility] diphtheria toxoid, and Work Phone: acellular pertussis vaccine, adsorbed Payers Date Payer Category Payer Unknown ANTHEM [employer]UE xxxxx [id number] [employer]IELD ANTHEM MEDIBLUE O [id number] [id number] 2019-Present [phone] [id number] 2019 Unknown ANTHEM BLUE CROSS AND BLUE [id number] [id number] SHIELD [facility] [id number] 2019-Present [phone] [id number] [place] [address] 2019 Unknown [id number] 2018 Medicaid MEDICAID [facility] MEDICAID [id number] 2018-Present [phone] [address] [place] [address] Medicaid 2018 Medicaid MEDICAID [facility] MEDICAID [id number] 2018-Present [phone] [address] [place] [id number] Medicaid 2018 Medicaid [id number] Social History Date Type Detail Facility Start: 1967 Tobacco smoking status Smokes tobacco daily [facility] End: 12-13-2021 [facility] Start: 1967 History of tobacco use Cigarette Smoker [facility] Start: 12-13-2020 Alcohol intake Current drinker of [facility] End: 12-13-2021 alcohol (finding) Start: 12-18-2019 History SDOH Alcohol daily; hospital [facility] Comment records noted 6+beers daily but at Aug hospital follow up, was not drinking, occ. Start: 07-15-2019 Tobacco Comment No smoking in childhod [facility] End: 12-13-2021 home.-- Not smoking now given COVID 19 Start: 1955 Sex Assigned At Not on file [facility] Start: 08-08-2021 Exposure to SARS-CoV-2 Not sure [facility] End: 12-13-2021 (event) Start: 07-15-2019 Cigarettes smoked 1 [facility] in End: 12-13-2021 current (pack per day) - Reported Start: 07-15-2019 Tobacco use and Smokeless tobacco [facility] End: 12-13-2021 exposure non-user Work Phone: Clinical Notes 12-18-2019 to 02-07-2022 Telephone Encounter - Lacy Manzanares APRN.CNS - 02/07/2022 1:10 PM ESTTelephone Encounter - Kaylyn Wallace Ma - 01/27/2022 3:28 PM EDTTelephone Encounter - Brittany Magana LPN - 01/20/2022 4:50 PM EDT Note Date & Type Note Facility 02-07-2022 Miscellaneous Formatting of this note migh t be different from the original. [facility] Notes noted Formatting of this note might be differe nt from the original. Called Deisy, she states that patient has declined all care and kicked them out of her home and states she is not going to take any of her medications Formatting of this note might be differe nt from the original. 1-OK [facility] 2. OK palliative care, had seen [facility] previously 11/2021. 3. Send med lis Formatting of this note might be differe nt from the original. Deisy with [facility] HH, nursing requesting the followin)verbal orders for [facility] plan of care to see pt 1 time a week for 4 weeks. 2)pt was on hospice and revo ked orders and was admitted to [facility] for exacerbation of her COPD. D/C and they are requesting orders for palliative care. 3)requesting a copy of pt's current med list to be faxed to [phone]. (Deisy states pt has medications all over her house and the need to know what she is to be taking) Aida Nam LPN documented in this encounter 02-01-2022 Miscellaneous Formatting of this note migh t be different from the original. [facility] Notes Noted. Selwyn Mejias MD Formatting of [...] be differe nt from the original. Alley [facility] Skilled Nurse rashad ramos in and [...] BP pills. Pt also refused to see [facility] anymore. She states their next visit will be to discharge the patient from their services. Pt also states she hasn't fol lowed up with PCP. She said Pt said she would come in on Sunday if someone calls her, but she doesn't want to see the SUPPLY COORDINATOR she wants to see Dr Mejias. documented in this encounter 01-30-2022 Note HNO ID: [id number] [facility] Author: Cesar Rehman [place] Service: ? Author Type: ? Type: Progress [...] My additions to the note are underlined. eDclan Puente, PharmD, MEd, BCPS, CD ZINA Dalia Robbins Viki is identified through a medication adherence outreach initiative based on pharmacy claims data from [employer] (insurer) for EUN medication(s). Patient is reviewed [...] Cesar Rehman 01-30-2022 Note Patient Outreach (PHPOHE) [facility] Van DREWDALIA Robbins ([id number]) 1955 F Date Time Provider Department 01/30/22 DECLAN PUENTE During your visit today, we recorded the following information about you: Cesar Rehman 01/31/2022 10:03 AM Atteste yulissa Attestation signed by Declan Puente [facility] at 01/31/2022 10:03 AM The patient's case [...] initiative based on pharmacy claims data from [employer] (insurer) for EUN medication(s). Patient is reviewed [...] 1 tablet by mouth once daily. - lvnylrzhybd-weafbrasa-ylxtrsag (TRELEG Y ELLIPTA) 100-62.5-25 mcg inhalation powder [...] note is d ifferent from the original. [facility] Notes Palliative Medicine at Home Referral Ass essment Referral Accepted: Yes, Disc harge Disposition: Home: Timeframe for schedulin-3 weeks Pall Med appropriate diagnosis: Associat ed Diagnoses COPD, severe (HCC) [J44.9] Established with Inpatient Pall Med team : no Reason for consult: introduc tion to services, goals of care, and symptom support Pt was on hospice and revoke d orders and was admitted to [facility] for exacerbation of her COPD. D/C and they are requesting orders for palliative care. Patient declined services from her [facility] t eam. Refusing to take medications. Razia English RN January 30, 2022 documented in this encounter 01-23-2022 Miscellaneous Formatting of this note migh t be different from the original. [facility] Notes Noted, agree Formatting of this note might be differe nt from the original. Michelle calling with PT POC. Will be seeing patient for [facility] and gain training, safe transfers and pain management. 1 time a for 1 week 2 times for 2 weeks 1 time for 1 week. documented in this encounter 01-23-2022 Miscellaneous Formatting of this note migh t be different from the original. [facility] Notes noted Formatting of this note might be differe nt from the original. Guillermina with [facility] OT calling to state patient has [...] migh t be different from the original. [facility] Notes Faxed Formatting of this note might [...] this encounter 01-02-2022 Note Patient Outreach (AMBCMG) [facility] [place] DALIA DREW ([id number]) 1955 F Date Time Provider Department 01/02/22 MARION GRAVES During your visit today, we recorded the following information about you: Marion Graves RN 01/02/2022 1:08 PM Si gned [facility] Enrollment Provider Action/I: h/o COPD I spoke with patient and she is in Palli ative Care/ Hospice She is not sure which one bu t believes she is in Hospice ([facility] [place]) Patient referred by: [facility] Marisol Contact made with patient: Yes - Patient identified by name and . Discussed care with patient Bernardo this is Marion Graves RN and I elizabeth m calling from Selwyn Mejias MD office at the [facility]. I am a R N [employer] Sectional Center Manager with our [facility] Chronic Disease Management program. [...] few questions once a week through your [employer] account. It will automatically show up for [...] Patient does not meet criteria. PCC to [facility] patient in a month. Allergies As of [...] 1 tablet by mouth once daily. - trydzbbrrrj-rjedjtaie-gswyakyh (TRELEG Y ELLIPTA) 100-62.5-25 mcg inhalation powder [...] not include d)... 01-02-2022 Note HNO ID: [id number] [facility] Author: aMrion Graves RN [place] Service: ? Author Type: Registered Nurse Type: Progress Notes Filed: 01/02/2022 1:08 PM Note Text: [facility] CDM Enrollment Provider Action/FYI: h/o COPD I spoke with patient and she is in Palli ative Care/ Hospice She is not sure which one but believes s he is in Hospice ([facility] [place]) Patient referred by: C Marisol Contact made with patient: Yes - Patient identified by name and . Discussed care with patient Bernardo this is Marion Graves RN and I a m calling from Selwyn Mejias MD office at the [facility]. I am a R N [employer] Sectional Center Manager with our [employer] Chronic Disease Management progr [...] question s once a week through your [employer] account. It will automatically show up f [...] migh t be different from the original. [facility] Notes Nurse from [facility] was given pro viders message and verbalized [...] nt from the original. Donya Nurse from [facility] call ing was unable to do lung [...] in this encounter 12-14-[address]: [id number] [facility] Author: Joaquim Rodarte RN [place] Service: ? Author Type: Registered Nurse Type: [...] RN and I am calling from the [facility] on behalf of your PCP, Selwyn Mejias [...] the patient after two at tempted outreaches. Postal Service Sectional Center Manager to retry patient in one week . END OUTREACH Aster March RN December 14, 2021 2:36 PM 12-14-2021 Note Patient Outreach (AMBCMG) [facility] [place] DALIA DREW ([id number]) 1955 F Date Time Provider Department 12/14/21 JOAQUIM EWBER During your visit today, we recorded the [...] RN and I am calling from the [facility] on behalf of your PCP, Selwyn Mejias [...] the patient after two attempted outreaches. Postal Service Sectional Center Manager to retry patient in one week. END [...] t: Initial CDM Outreach/ Healthy at Home [facility] Prescriptions as of 12/14/2021 - atorvastatin (LIPITOR) 10 mg tablet Take 1 tablet by mouth once daily. - citalopram (CELEXA) 20 mg tablet Take 1 tablet by mouth once daily. - hgiohkpbqkk-uftvyfnnu-ehyuksdc (TRELEG Y ELLIPTA) 100-62.5-25 mcg inhalation powder [...] n ot included)... 12-13-[address]: [id number] [facility] Author: Selwyn Mejias MD [place] Service: ? Author Type: Physician Type: Progress [...] SOB. Working with Dr. Kirill Bentley at [facility] (suction operator). Plans for lung biopsy d iscussed. Noted [...] fall. Chronic obstructive pulmonary disease (C OPD) ([facility]) Dysphagia, unspecified(787.20) Emphysema lung ([facility]) Hypertension INSOMNIA, intermittent 12/17/2006 stress related Unspecified chronic bronchitis ([facility]) 11/25 Current Outpatient Medications Medication Sig atorvastatin [...] by mouth twice daily for 90 days. mrttbylhtsa-ztmoiwtak-ukxakckt (TRELEGY ELLIPTA) 100-62.5-25 mcg inhalation powder Inhale [...] content not included)... 12-13-[address] [facility] illness Narrative This note was created using MADSter. Subjective Dalia Drew is a 66 year [...] SOB. Working with Dr. Kirill Bentley at [facility] (suction operator). Plans for lung biopsy discussed. Noted BP [...] fall. Chronic obstructive pulmonary disease (C OPD) ([facility]) Dysphagia, unspecified(787.20) Emphysema lung ([facility]) Hypertension INSOMNIA, intermittent 12/17/2006 stress related Unspecified chronic bronchitis ([facility]) 11/25 Current Outpatient Medications Medication Sig atorvastatin [...] by mouth twice daily for 90 days. ilsvgxmuasa-mymdhtbhp-dmqdyl er (TRELEGY ELLIPTA) 100-62.5-25 mcg inhalation powder [...] by mouth once daily. polyethylene glycol 3350 (NM RALAX, GLYCOLAX) 17 gram packet Take 1 [...] Abs Lymph 1.00 - 4.00 k/uL 1.25 [place]% % 13.3 Abs [place] <0.87 k/uL 0.77 [place]% % 3.1 Abs [...] tobacco. - Note plans to call for [facility] p-line that might be able to provide patches for nicotine replacement to help with smoking cessation 6. Gastroesophageal reflux d isease without esophagitis - ICD9: 530.81, ICD10: K21.9 - Continue treatment with: - OMEPRAZOLE 40 MG CAPSULE,DELAYED RELEA SE 7. COPD, severe (HCC) - ICD9: 496, ICD10 : J44.9 Continue follow up with suction operator. O yeni cough med. - CODEINE 10 [...] Chronic resp\iratory failure with hy poxia--working with suction operator. 14. Protein-calorie malntutr ition--working on getting more calories and protein in; noted that shortness of breath with eating limits her intake. Will try to get foods of lower volume with higher amount s of calories and protein. C ost an issue for supplements. Will consider working with SW as needed. Selwyn Mejias MD documented in this encounter 12-02-2021 Note HNO ID: [id number] [facility] Author: Joaquim Rodarte RN [place] Service: ? Author Type: Registered Nurse Type: [...] 12:23 PM 12-02-2021 Note Patient Outreach (AMBCMG) [facility] DALIA Morris ([id number]) 1955 F Date Time Provider Department 12/02/21 JOAQUIM WEBER During your visit today, we recorded the following information about you: Aster March RN 12/02/2021 12:26 PM Signed [facility] CDM Enrollment Provider Action/FYI: Call to Pt, unable to leave a message re lated to [facility]ight / Chronic Disease Management program, will provide Healthy at Home [facility] info once reached. Patient referred by: [...] t: Initial CDM Outreach/ Healthy at Home [facility] Prescriptions as of 12/02/2021 - atorvastatin [...] mouth twice daily for 90 days. - kdroniaofdx-jdkntunau-jmfqtgvr (TRELEG Y ELLIPTA) 100-62.5-25 mcg inhalation powder [...] content not included)... 12-02-[address] [facility] illness Narrative [facility] CDM Enrollment Provider Action/FYI: Call to Pt, unable to leave a message related to Insight / Chronic Disease Management program, will provide [facility] info once reached. Patient referred by: [facility] Marisol Contact made with patient: N o - Unable to leave message: (Keep encounter open and attempt 2nd outreach in two business days from today). END OUTREACH Aster March RN December 02, 2021 12:23 PM documented in this encounter 11-29-2021 Miscellaneous Formatting of this note migh t be different from the original. [facility] Notes Noted. Selwyn Mejias MD Formatting of this note might be differe nt from the original. Delmy [facility] called and is no tified of providers message and instructions. She voices understanding and was given Pts next appointment time of 12/13/21 at 940 am. She reports she will tell Pts [facility] to see if she can [...] voicemail, she can always get it from suction operator if PCP does not want to do it. Virgen is f axing copy of POA for health care to the office also. She had given me grand daughter Mikala phone number is [phone]. She thinks patient is having memory issues and may not show for her appt with PCP, she did not think grand daughter k new of the appt. Formatting of this note might be differe nt from the original. Virgen from [facility] Junior Technical Writer calling asking if any paper work patient needs to take to Dr Bentley-Hvac Service Manager? Did not see anything in computer. Patient has appt scheduled today with Pulmonary office to update her H&P for biopsy ishaan ng mass. Hoping patient does keep that appt. Virgen works counter clerk farm equipment parts and gave her oracle database manager, Delmy phone number is [phone] if needed. Aware patient had cancelled her appt mid October with Lacy Manzanares SUPPLY COORDINATOR. documented in this encounter 11-23-2021 Note [address]NO ID: [id number] [facility] Author: Joaquim Rodarte RN [place] Service: ? Author Type: Registered Nurse Type: Progress Notes Filed: 12/02/2021 12:20 PM Note Text: [facility] CDM Enrollment Provider Action/FYI: Call to Pt, unable to leave a message re lated to Insight / Chronic Disease Management program, will provide [facility] info once reached. Patient referred by: [facility] Marisol Contact made with patient: No - Unable t o leave message: (Keep encounter open and attempt 2nd outreach in two bus iness days from today). END OUTREACH Aster March RN November 23, 2021 2:04 PM 11-23-[address] [facility] illness Narrative [facility] CD[facility] Enrollment Provider Action/FYI: Call to Pt, unable to leave a message related to Insight / Chronic Disease Management program, will provide [facility] info once reached. Patient referred by: [facility] Marisol Contact made with patient: N o - Unable to leave message: (Keep encounter open and attempt 2nd outreach in two business days from today). END OUTREACH Aster March RN November 23, 2021 2:04 PM documented in this encounter 11-23-2021 Note Patient Outreach (AMBCMG) [facility] DALIA DREW ([id number]) 1955 F Date Time Provider Department 11/23/21 JOAQUIM WEBER During your visit today, we recorded the following information about you: Aster March RN 12/02/2021 12:20 PM Signed [facility] Enrollment Provider Action/FYI: Call to Pt, unable to leave a message re lated to Insight / Chronic Disease Management program, will provide [facility] info once reached. Patient referred by: [...] [facility] Primary Visit Diagnosis:Cupola Repairer ramon obstructive pulmonary disease, unspecified COPD type (HCC) [J44.9] Order(s):CONSULT TO PRIMARY CARE COORDIN NACHO LIM [[id number]] Order #: [id number]: 1 Prescriptions as of 12/02/2021 - atorvastatin [...] mouth twice daily for 90 days. - xedraghbbix-kvfqsjupc-bffwxuxe (TRELEG Y ELLIPTA) 100-62.5-25 mcg inhalation powder [...] migh t be different from the original. [facility] Notes Noted. Selwyn Mejias MD Formatting of this note might be differe nt from the original. Called [facility] radiology dept. T myriamy will be doing pts biopsy. They need an update H&P. Pt missed several H&P appts with Dr. Fransisco moore the suction operator with [facility]. Called pt to review the H&P should be co mpleted with Dr. Bentley. Pt will contact his office to arrange. Formatting of this note might be differe nt from the original. Kaylyn - [facility] - phoned to see if patient has seen pcp recently- they were hoping they could get an H & P, to do lung biopsy tomorrow, for lung mass. Reports patient was scheduled for this 2 weeks ago, but no showed. The 2nd time [facility] scheduled patient, patient was instructed to [...] this encounter 11-02-2021 Note Patient Outreach (INTMMN) [facility] ic Van DREWDALIA Robbins ([id number]) 1955 F Date Time Provider Department 11/02/21 SELWYN MEJIAS During your visit today, we recorded the following information about you: Allergies As of Date: 11/02/2021 Noted A llergy Reaction WELLBUTRIN SR (BUPROPION) 05/08/2008 1 - Mental Status Change Comments: made me hallucinate Date Reviewed: 08/19/2021 Reviewed by: Racheal Lopez LPN - Fully A ssessed Visit Diagnosis:Encounter for screening mammogram for breast cancer [Z12.31] Order(s):[facility] SCREEN[facility] [[id number]] Order # : [id number] FUTURE Prescriptions as of 11/07/2021 - atorvastatin [...] mouth twice daily for 90 days. - gwbbmijcayf-znrngpewa-fysismfq (TRELEG Y ELLIPTA) 100-62.5-25 mcg inhalation powder [...] note is d ifferent from the original. [facility] Notes Patient call in for chest pa [...] of breath; head throbbing. Protocols used: CHEST [id number] documented in this encounter 09-02-2021 Miscellaneous Formatting of this note migh t be different from the original. [facility] Notes letter printed Okay to send letter [...] Abs Lymph 1.00 - 4.00 k/uL 1.25 [place]% % 13.3 Abs [place] <0.87 k/uL 0.77 Eosin% % 3.1 Abs [...] migh t be different from the original. [facility] Notes Sw left 2nd message for serjio ent to return Sw to discuss financial/home care assistance needs. Sw called and left message f or patient in regards to SW consult request to help with financial constraints and help around the house. Sw requested patient call SW back to discuss needs. documented in this encounter 08-19-[address]: [id number] [facility] Author: Lacy Manzanares APRN.[facility] Service: ? Author Type: Nurse Specialist [...] visit: She was admitted to [facility] December 02 through December 06, 2020. [...] 3 to 6 L nasal cannula at [facility]. Treated with IV Solu-Medrol during admission, transition [...] inhaler refill from Dr. Bentley Follow-up with suction operator: scheduled for next week, Dr. Bentley's office Complete medications: yes completed. Notes eating OK. Does not take any suppl emental, nothing recommended at discharge notes continues to smoke, EtOH . Notes chronic back pain, stable, no alar m symptoms, ibuprofen seems to help somewhat. Not interested in physica l therapy. Has not seen spine physician. X-ray completed in February. Requests [place]. Presents today for routine follow up vis it. She reports no hospitalization or ER visits since last year. She has not seen Dr. Bentley since her ER visit in 2020, needs to [facility] follow-up visit. COPD: Noted to be severe Cough: Present, clear sputum Wheeze: Present Shortness of breath: Present Hvac Service Manager visit: Dr Bentley (more content not included)... 08-19-2021 Instructions Lacy Manzanares APRN.CNS - 10:[address] [facility] Schedule a follow up with Dr Bentley. documented in this encounter 08-19-[address] [facility] illness Narrative SUBJECTIVE: LUNG CANCER SCREENING Never [...] from previous visit: She was admitted to [facility] December 02 through December 06, 2020. Admission for COPD exacerbation and respiratory failure. She was seen by pulmonary medicine during her admission by Dr. Bentley. Medications at discharge cit alopram 20 mg [...] and cach ectic appearance. Dietitian consulted [facility] admission. 12/06/2020 WBC 9.3 hemoglobin 10.9 hematocrit [...] inhaler refill from Dr. Bentley Follow-up with suction operator: scheduled for next week, Dr. Bentley's office Complete medications: yes completed. Notes eating OK. Does not ta ke any supplemental, nothing recommended at discharge notes continues to smoke, EtOH. Notes chronic back pain, sta ble, no alarm symptoms, ibuprofen seems to help somewhat. Not interested in physical therapy. Has not seen spine physician. X- ray completed in February. Requests [place]. Presents today for routine f ollow up visit. She reports no hospitalization or ER visits since last year. She has not seen Dr. Bentley since her ER visit in 2020, needs to schedule follow-up visit. COPD: Noted to be severe Cough: Present, clear sputum Wheeze: Present Shortness of breath: Present Hvac Service Manager visit: Dr Bentley Oxygen: 2 to 3 [...] by mouth twice daily for 90 days. wwkrzjcmqzq-oooboqbzf-nayvwp er (TRELEGY ELLIPTA) 100-62.5-25 mcg inhalation powder [...] needed for Cold/Allergy Symptoms. polyethylene glycol 3350 (NM RALAX, GLYCOLAX) 17 gram packet Take 1 Packet by mouth once daily. PAST MEDICAL HISTORY Diagnosis Date Anxiety Back pain 09/2018 T5 compression fracture in fall. Chronic obstructive pulmonary disease ( COPD) ([facility]) Dysphagia, unspecified(787.20) Emphysema lung ([facility]) Hypertension INSOMNIA, intermittent 12/17/2006 stress related Unspecified chronic bronchitis ([facility]) Social History Tobacco Use Smoking status: Current [...] No ASSESSMENT/PLAN: ASSESSMENT/PLAN: 1. COPD, severe ([facility]) - ICD9: 496, ICD10 : J44.9 (primary diagnosis) 5. Chronic bronchitis, unspe cified chronic bronchitis type (HCC) - ICD9: 491.9, ICD10: J42 Currently stable, no recent exacerbation. Continue with current treatment unchanged for now. Currently using inhalers routinely. Reports oxygen 2 to 3 L 16/10. She is overdue for follow-up visit with Dr. Bentley her suction operator. 6. Tobacco use disorder - ICD9: 305.1, [...] RELEA SE 9. PAD (peripheral artery disease) ([facility]) - ICD9: 443.9, ICD10: I73.9 - ATORVASTATIN 10 MG TABLET 10. Gastroesophageal reflux disease without esophagitis - ICD9: 530.81, ICD10: K21.9 - CBC + DIFF - COMP METABOLIC PANEL - OMEPRAZOLE 40 MG CAPSULE,DELAYED RELEA SE 11. Compression fracture of T5 vertebra, initial encounter ([facility]) - ICD9: 805.2, ICD10: S22.050A 12. Closed fracture of multi ple ribs of right side with routine healing - ICD9: V54.19, ICD10: S22.41XD She notes back pain is currently managed with gabapentin. PDMP website checked and joni idated. All prescriptions have been APPROPRIATELY filled. No suspicious activity was identified. 08/19/2021 by Lacy Manzanares APRN.DIRECTOR CLINICAL APPLICATIONS - GABAPENTIN 300 MG CAPSULE 13. Need [...] this. 6-month follow-up with PCP Lacy Manzanares APRN.DIRECTOR CLINICAL APPLICATIONS Medical Decision Making: Problems: Moderate: 2+ stable chronic illnesses Data: Unique test(s) ordered: 3+ Risk: Moderate: Drug management Medical Decision Making Level: 4 - Moder ate documented in this encounter 08-18-2021 Miscellaneous Formatting of this note is d ifferent from the original. [facility] Notes Patient has been identified by name [...] migh t be different from the original. [facility] Notes Patient returns call and pro vider [...] in this encounter 04-01-2020 Note HNO ID: [id number] [facility] Author: Eric Zamorano (Asset Liability Analyst.Line Department Supervisor) [facility] Service: ? Author Type: Nurse Practitioner Type: [...] - Chronic obstructive pulmonary disease (COPD) ([facility]) - Dysphagia, unspecified(787.20) - Emphysema lung ([facility]) - Hypertension - INSOMNIA, intermittent 12/17/2006 stress related - Unspecified chronic bronchitis ([facility]) PAST SURGICAL HISTORY Procedure Laterality Date - [...] not in cluded)... 03-04-2020 Note HNO ID: [id number] [facility] Author: Jose [facility] Service: ? Author Type: Physician Type: Progress Notes Filed: 03/07/2020 10:25 PM Note Text: [facility] [place] Interval Evaluation Form CHIEF COMPLAINT: Spine pain Interval HPI March 04, 2020 Ashley returns for f/u regaridng above complaints, here for medication refill. 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 03-02-2020 History of Past illness Narrative Problem Noted Date Resolved Date Cervical spondylosis without myelopathy 03/02/2020 05/27/2020 Lumbosacral spondylosis without myelopathy 03/02/2020 05/27/2020 Fracture of right distal radius 07/24/2012 11/25/19 15 Acute sinusitis, unspecified 02/06/2008 06/13/2017 Closed fracture of lateral malleolus 11/08/2005 Radial styloid tenosynovitis 06/28/2005 09/28/2005 Closed Colles' fracture 02/14/2005 09/28/2005 documented as of this encounter (statuses as of 08/18/2021)[facility] 03-02-2020 History of Past illness Narrative Problem Noted Date Resolved Date Cervical spondylosis without myelopathy 03/02/2020 05/27/2020 Lumbosacral spondylosis without myelopathy 03/02/2020 05/27/2020 Fracture of right distal radius 07/24/2012 11/25/19 15 Acute sinusitis, unspecified 02/06/2008 06/13/2017 Closed fracture of lateral malleolus 11/08/2005 Radial styloid tenosynovitis 06/28/2005 09/28/2005 Closed Colles' fracture 02/14/2005 09/28/2005 documented as of this encounter (statuses as of 08/19/2021)[facility] 03-02-2020 History of Past illness Narrative Problem Noted Date Resolved Date Cervical spondylosis without myelopathy 03/02/2020 05/27/2020 Lumbosacral spondylosis without myelopathy 03/02/2020 05/27/2020 Fracture of right distal radius 07/24/2012 11/25/19 15 Acute sinusitis, unspecified 02/06/2008 06/13/2017 Closed fracture of lateral malleolus 11/08/2005 Radial styloid tenosynovitis 06/28/2005 09/28/2005 Closed Colles' fracture 02/14/2005 09/28/2005 documented as of this encounter (statuses as of 08/25/2021)[facility] 03-02-2020 History of Past illness Narrative Problem Noted Date Resolved Date Cervical spondylosis without myelopathy 03/02/2020 05/27/2020 Lumbosacral spondylosis without myelopathy 03/02/2020 05/27/2020 Fracture of right distal radius 07/24/2012 11/25/19 15 Acute sinusitis, unspecified 02/06/2008 06/13/2017 Closed fracture of lateral malleolus 11/08/2005 Radial styloid tenosynovitis 06/28/2005 09/28/2005 Closed Colles' fracture 02/14/2005 09/28/2005 documented as of this encounter (statuses as of 09/02/2021)[facility] 03-02-2020 History of Past illness Narrative Problem Noted Date Resolved Date Cervical spondylosis without myelopathy 03/02/2020 05/27/2020 Lumbosacral spondylosis without myelopathy 03/02/2020 05/27/2020 Fracture of right distal radius 07/24/2012 11/25/19 15 Acute sinusitis, unspecified 02/06/2008 06/13/2017 Closed fracture of lateral malleolus 11/08/2005 Radial styloid tenosynovitis 06/28/2005 09/28/2005 Closed Colles' fracture 02/14/2005 09/28/2005 documented as of this encounter (statuses as of 09/28/2021)[facility] 03-02-2020 History of Past illness Narrative Problem Noted Date Resolved Date Cervical spondylosis without myelopathy 03/02/2020 05/27/2020 Lumbosacral spondylosis without myelopathy 03/02/2020 05/27/2020 Fracture of right distal radius 07/24/2012 11/25/19 15 Acute sinusitis, unspecified 02/06/2008 06/13/2017 Closed fracture of lateral malleolus 11/08/2005 Radial styloid tenosynovitis 06/28/2005 09/28/2005 Closed Colles' fracture 02/14/2005 09/28/2005 documented as of this encounter (statuses as of 11/07/2021)[facility] 03-02-2020 History of Past illness Narrative Problem Noted Date Resolved Date Cervical spondylosis without myelopathy 03/02/2020 05/27/2020 Lumbosacral spondylosis without myelopathy 03/02/2020 05/27/2020 Fracture of right distal radius 07/24/2012 11/25/19 15 Acute sinusitis, unspecified 02/06/2008 06/13/2017 Closed fracture of lateral malleolus 11/08/2005 Radial styloid tenosynovitis 06/28/2005 09/28/2005 Closed Colles' fracture 02/14/2005 09/28/2005 documented as of this encounter (statuses as of 11/10/2021)[facility] 03-02-2020 History of Past illness Narrative Problem Noted Date Resolved Date Cervical spondylosis without myelopathy 03/02/2020 05/27/2020 Lumbosacral spondylosis without myelopathy 03/02/2020 05/27/2020 Fracture of right distal radius 07/24/2012 11/25/19 15 Acute sinusitis, unspecified 02/06/2008 06/13/2017 Closed fracture of lateral malleolus 11/08/2005 Radial styloid tenosynovitis 06/28/2005 09/28/2005 Closed Colles' fracture 02/14/2005 09/28/2005 documented as of this encounter (statuses as of 11/29/2021)[facility] 03-02-2020 History of Past illness Narrative Problem Noted Date Resolved Date Cervical spondylosis without myelopathy 03/02/2020 05/27/2020 Lumbosacral spondylosis without myelopathy 03/02/2020 05/27/2020 Fracture of right distal radius 07/24/2012 11/25/19 15 Acute sinusitis, unspecified 02/06/2008 06/13/2017 Closed fracture of lateral malleolus 11/08/2005 Radial styloid tenosynovitis 06/28/2005 09/28/2005 Closed Colles' fracture 02/14/2005 09/28/2005 documented as of this encounter (statuses as of 12/02/2021)[facility] 03-02-2020 History of Past illness Narrative Problem Noted Date Resolved Date Cervical spondylosis without myelopathy 03/02/2020 05/27/2020 Lumbosacral spondylosis without myelopathy 03/02/2020 05/27/2020 Fracture of right distal radius 07/24/2012 11/25/19 15 Acute sinusitis, unspecified 02/06/2008 06/13/2017 Closed fracture of lateral malleolus 11/08/2005 Radial styloid tenosynovitis 06/28/2005 09/28/2005 Closed Colles' fracture 02/14/2005 09/28/2005 documented as of this encounter (statuses as of 12/02/2021)[facility] 03-02-2020 History of Past illness Narrative Problem Noted Date Resolved Date Cervical spondylosis without myelopathy 03/02/2020 05/27/2020 Lumbosacral spondylosis without myelopathy 03/02/2020 05/27/2020 Fracture of right distal radius 07/24/2012 11/25/19 15 Acute sinusitis, unspecified 02/06/2008 06/13/2017 Closed fracture of lateral malleolus 11/08/2005 Radial styloid tenosynovitis 06/28/2005 09/28/2005 Closed Colles' fracture 02/14/2005 09/28/2005 documented as of this encounter (statuses as of 12/15/2021)[facility] 03-02-2020 History of Past illness Narrative Problem Noted Date Resolved Date Lumbosacral spondylosis without myelopathy 03/02/2020 05/27/2020 Fracture of right distal radius 07/24/2012 11/25/19 15 Acute sinusitis, unspecified 02/06/2008 06/13/2017 Closed fracture of lateral malleolus 11/08/2005 Radial styloid tenosynovitis 06/28/2005 09/28/2005 Closed Colles' fracture 02/14/2005 09/28/2005 documented as of this encounter (statuses as of 01/05/2022)[facility] 03-02-2020 History of Past illness Narrative Problem Noted Date Resolved Date Lumbosacral spondylosis without myelopathy 03/02/2020 05/27/2020 Fracture of right distal radius 07/24/2012 11/25/19 15 Acute sinusitis, unspecified 02/06/2008 06/13/2017 Closed fracture of lateral malleolus 11/08/2005 Radial styloid tenosynovitis 06/28/2005 09/28/2005 Closed Colles' fracture 02/14/2005 09/28/2005 documented as of this encounter (statuses as of 01/06/2022)[facility] 03-02-2020 History of Past illness Narrative Problem Noted Date Resolved Date Lumbosacral spondylosis without myelopathy 03/02/2020 05/27/2020 Fracture of right distal radius 07/24/2012 11/25/19 15 Acute sinusitis, unspecified 02/06/2008 06/13/2017 Closed fracture of lateral malleolus 11/08/2005 Radial styloid tenosynovitis 06/28/2005 09/28/2005 Closed Colles' fracture 02/14/2005 09/28/2005 documented as of this encounter (statuses as of 01/23/2022)[facility] 03-02-2020 History of Past illness Narrative Problem Noted Date Resolved Date Lumbosacral spondylosis without myelopathy 03/02/2020 05/27/2020 Fracture of right distal radius 07/24/2012 11/25/19 15 Acute sinusitis, unspecified 02/06/2008 06/13/2017 Closed fracture of lateral malleolus 11/08/2005 Radial styloid tenosynovitis 06/28/2005 09/28/2005 Closed Colles' fracture 02/14/2005 09/28/2005 documented as of this encounter (statuses as of 01/30/2022)[facility] 03-02-2020 History of Past illness Narrative Problem Noted Date Resolved Date Lumbosacral spondylosis without myelopathy 03/02/2020 05/27/2020 Fracture of right distal radius 07/24/2012 11/25/19 15 Acute sinusitis, unspecified 02/06/2008 06/13/2017 Closed fracture of lateral malleolus 11/08/2005 Radial styloid tenosynovitis 06/28/2005 09/28/2005 Closed Colles' fracture 02/14/2005 09/28/2005 documented as of this encounter (statuses as of 02/01/2022)[facility] 03-02-2020 History of Past illness Narrative Problem Noted Date Resolved Date Lumbosacral spondylosis without myelopathy 03/02/2020 05/27/2020 Fracture of right distal radius 07/24/2012 11/25/19 15 Acute sinusitis, unspecified 02/06/2008 06/13/2017 Closed fracture of lateral malleolus 11/08/2005 Radial styloid tenosynovitis 06/28/2005 09/28/2005 Closed Colles' fracture 02/14/2005 09/28/2005 documented as of this encounter (statuses as of 02/07/2022)[facility] 03-02-2020 History of Past illness Narrative Problem Noted Date Resolved Date Lumbosacral spondylosis without myelopathy 03/02/2020 05/27/2020 Fracture of right distal radius 07/24/2012 11/25/19 15 Acute sinusitis, unspecified 02/06/2008 06/13/2017 Closed fracture of lateral malleolus 11/08/2005 Radial styloid tenosynovitis 06/28/2005 09/28/2005 Closed Colles' fracture 02/14/2005 09/28/2005 documented as of this encounter (statuses as of 02/07/2022)[facility] 02-12-2020 NoteHNO ID: [id number] Author: Jose Lanier Service: ? Author Type: Physician Type: Progress Notes Filed: 02/15/2020 9:02 PM Note Text: [facility] Sp[facility] [place] Interval Evaluation Form CHIEF COMPLAINT: Spine pain Interval HPI February 12, 2020 Patinet returns for f/u regaridng above complaints, here for medication refill. 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 Author Type: Physician Type: Progress Notes Filed: 01/19/2020 12:20 AM Note Text: [facility] Sp[facility] and [facility] [place] Interval Evaluation Form CHIEF COMPLAINT: Spine pain Interval HPI January 15, 2020 Ashley coronado fro f/u regaridng above complaints, here for medication refill. 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's ability [...] - Chronic obstructive pulmonary disease (COPD) ([facility]) - Dysphagia, unspecified(787.20) - Emphysema lung ([facility]) - Hypertension - INSOMNIA, intermittent 12/17/2006 stress related - Unspecified chronic bronchitis ([facility]) 12/17/2006 Psych: denies PAST SURGICAL HISTORY: PAST [...] pulse oximetry-- J42 Chr (more content not included)...[facility]10-22-2020 NoteProcedure (SPAGWO) DALIA DREW ([id number]) 1955 F Date Time Provider Department 01/15/20 11:45 AM JOSE LANIER During your visit today, we recorded the following information about you: Temperature Weight Height 97.9 degrees 52.2 kg 1.676 m Jose Lanier MD 01/19/2020 12:[address] [facility] [place] Interval Evaluation Form CHIEF COMPLAINT: Spine pain Interval HPI January 15, 2020 Ashley coronado fro f/u regaridng above complaints, here for medication refill. 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's ability [...] - Chronic obstructive pulmonary disease (COPD) ([facility]) - Dysphagia, unspecified(787.20) - Emphysema lung ([facility]) - Hypertension - INSOMNIA, intermittent 12/17/2006 stress related - Unspecified chronic bronchitis ([facility]) 12/17/2006 Psych: denies PAST SURGICAL HISTORY: PAST SURGICAL HISTORY Procedure Laterality Date - BX BREAST PERC VACUUM/ROTN Left - COLONOSCOP W/ OR W/O [facility] SPEC mod poor prep, otherwise normal - EGD W/O [facility] SPECIMEN W/BX duodenitis, mild gastritis SOCIAL HISTORY: [...] 3 - losartan (COZA (more content not included)...[facility] 12-18-2019 NoteHNO ID: [id number] Author: Jose Lanier Service: ? Author Type: Physician Type: Progress Notes Filed: 12/21/2019 9:39 PM Note Text: [facility] [place] Initial Evaluation Form CHIEF COMPLAINT: Spine pain Referred by: Lacy Manzanares APRN.DIRECTOR CLINICAL APPLICATIONS [address] [place] [place] [address] 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 24 tablet 0 - foubjhfvdzc-wexqbiwxf-ecuknklr (TRELEGY ELLIPTA) 100-62.5-25 mcg dsdv Inhale 1 Puff as instructed once daily. (Patient not taking: Reported on 12/18/2019 ) 1 Inhaler (more content not included)...[facility], severe ([facility]) Chronic airway obstruction, not elsewher e classified Cough [facility] Diagnosis COPD, severe (HCC)- Primary Chronic [...] disorder Generalized anxiety disorder [facility] Diagnosis Encounter for screening mammogram for br east cancer documented in this encounterSt[facility] Diagnosis Chronic obstructive pulmonary disease, u nspecified COPD type (HCC)- Primary [facility] Diagnosis Essential hypertension- Primary Unspecified essential [...] unspecifie d severity (HCC) documented in this encounterSt. [facility] HospitalEvalutrinity [facility] note Diagnosis COPD, severe (HCC)- Primary Chronic airway obstruction, not elsewher e classified documented in this encounterSt. Francis HospitalReason for referral (narrative) Diagnostic Procedure Only (Routine) - Pending Review Specialty Diagnoses / Procedures Referred By Contact Refer red To Contact [facility] Diagnoses Encounter for screening mammogram for breast cancer Selwyn Mejias MD [facility] Procedures MALACHI SCREENING SCREENING MAMMOGRAPHY BI 2-VIEW BREAST INC CAD [address] [facility] [address] [place] [address] [place] [address] Referral ID Status Reason Start Expiration Visits Visits Date Date Requested Authorized [id number] Pending Auto-Generat 11/02/2021 12/02/2022 1 1 Review ed Referral [facility] Summary Purpose Family History No Family History Records FoundNo Family History Records FoundNo Family History Records Found Advance Directives No Advanced Directives Records Found Documents on File Type Date Recorded Patient Student Activities Director Explanati on Advance Directive(s) Advance Directive(s) 08/24/2018 4:30 PM Documents on File Type Date Recorded Patient Student Activities Director Explanati on Advance Directive(s) 12/01/2021 11:24 AM Documents on File Type Date Recorded Patient Student Activities Director Explanati on Advance Directive(s) 12/01/2021 11:24 AM Reason for Referral Specialty Diagnoses / Procedures Referred By Contact Refer red To Contact Diagnoses COPD, severe (HCC) Lacy Manzanares, BAND INSTRUMENT REPAIRER.DIRECTOR CLINICAL APPLICATIONS Procedures CONSULT TO PALLIATIVE CARE OFFICE/OUTPATIENT [facility] 60-74 MINUTES [address] [place] [address] Referral ID Status Reason Start Expiration Visits Visits Date Date Requested Authorized [id number] Authorized PCP Requested 01/27/2022 01/27/2023 1 1 Referral Additional Source Comments INFORMATION SOURCE (unrecognized section and content) DATE CREATED AUTHOR AUTHOR'S ORGANIZ ATION 11/16/2018 [facility] DATE CREATED AUTHOR AUTHOR'S ORGANIZATIO N 08/07/2020 [facility] DATE CREATED AUTHOR AUTHOR'S ORGANIZATIO N 03/24/2022 [facility] Source Comments (unrecognized section an d [...] prosecute any alcohol or drug abuse patient. [facility] HospitalIn the event this information is protected by t he Federal Confidentiality of Alcohol and Drug Abuse Patient Records regulations: This information has been disclosed to you from records protected by Federal confid entiality rules ( The Federal rules restrict any use of th e information to criminally investigate or prosecute any alcohol or drug abuse serjio ent. [facility] HospitalIn the event this information is protected by the Federal Confidentiality of Alcohol and Drug Abuse Patient Records regulations: This inform ation has been disclosed to you from records protected by Federal confidentiality rul es ( The Federal rules restrict any use of the in formation to criminally investigate or prosecute any alcohol or drug abuse serjio ent. [facility] HospitalIn the event this information is protected by the Federal Confidentiality of Alcohol and Drug Abuse Patient Records regulations: This inform ation has been disclosed to you from records protected by Federal confidentiality rul es ( The Federal rules restrict any use of the in formation to criminally investigate or prosecute any alcohol or drug abuse serjio ent. [facility] HospitalIn the event this information is protected by the Federal Confidentiality of Alcohol and Drug Abuse Patient Records regulations: This inform ation has been disclosed to you from records protected by Federal confidentiality rul es ( The Federal rules restrict any use of the in formation to criminally investigate or prosecute any alcohol or drug abuse serjio ent. [facility]In the event this information is protected by the Federal Confidentiality of Alcohol and Drug Abuse Patient Records regulations: This inform ation has been disclosed to you from records protected by Federal confidentiality rul es ( The Federal rules restrict any use of the in formation to criminally investigate or prosecute any alcohol or drug abuse serjio ent. [facility]In the event this information is protected by the Federal Confidentiality of Alcohol and Drug Abuse Patient Records regulations: This inform ation has been disclosed to you from records protected by Federal confidentiality rul es ( The Federal rules restrict any use of the in formation to criminally investigate or prosecute any alcohol or drug abuse serjio ent. [facility]In the event this information is protected by the Federal Confidentiality of Alcohol and Drug Abuse Patient Records regulations: This inform ation has been disclosed to you from records protected by Federal confidentiality rul es ( The Federal rules restrict any use of the in formation to criminally investigate or prosecute any alcohol or drug abuse serjio ent. [facility]In the event this information is protected by the Federal Confidentiality of Alcohol and Drug Abuse Patient Records regulations: This inform ation has been disclosed to you from records protected by Federal confidentiality rul es ( The Federal rules restrict any use of the in formation to criminally investigate or prosecute any alcohol or drug abuse serjio ent. [facility]In the event this information is protected by the Federal Confidentiality of Alcohol and Drug Abuse Patient Records regulations: This inform ation has been disclosed to you from records protected by Federal confidentiality rul es ( The Federal rules restrict any use of the in formation to criminally investigate or prosecute any alcohol or drug abuse serjio ent. [facility] HospitalIn the event this information is protected by the Federal Confidentiality of Alcohol and Drug Abuse Patient Records regulations: This inform ation has been disclosed to you from records protected by Federal confidentiality rul es ( The Federal rules restrict any use of the in formation to criminally investigate or prosecute any alcohol or drug abuse serjio ent. [facility] HospitalIn the event this information is protected by the Federal Confidentiality of Alcohol and Drug Abuse Patient Records regulations: This inform ation has been disclosed to you from records protected by Federal confidentiality rul es ( The Federal rules restrict any use of the in formation to criminally investigate or prosecute any alcohol or drug abuse serjio ent. [facility]In the event this information is protected by the Federal Confidentiality of Alcohol and Drug Abuse Patient Records regulations: This inform ation has been disclosed to you from records protected by Federal confidentiality rul es ( The Federal rules restrict any use of the in formation to criminally investigate or prosecute any alcohol or drug abuse serjio ent. [facility]In the event this information is protected by the Federal Confidentiality of Alcohol and Drug Abuse Patient Records regulations: This inform ation has been disclosed to you from records protected by Federal confidentiality rul es ( The Federal rules restrict any use of the in formation to criminally investigate or prosecute any alcohol or drug abuse serjio ent. [facility]In the event this information is protected by the Federal Confidentiality of Alcohol and Drug Abuse Patient Records regulations: This inform ation has been disclosed to you from records protected by Federal confidentiality rul es ( The Federal rules restrict any use of the in formation to criminally investigate or prosecute any alcohol or drug abuse serjio ent. [facility]In the event this information is protected by the Federal Confidentiality of Alcohol and Drug Abuse Patient Records regulations: This inform ation has been disclosed to you from records protected by Federal confidentiality rul es ( The Federal rules restrict any use of the in formation to criminally investigate or prosecute any alcohol or drug abuse serjio ent. [facility] HospitalIn the event this information is protected by the Federal Confidentiality of Alcohol and Drug Abuse Patient Records regulations: This inform ation has been disclosed to you from records protected by Federal confidentiality rul es ( The Federal rules restrict any use of the in formation to criminally investigate or prosecute any alcohol or drug abuse serjio ent. [facility]In the event this information is protected by the Federal Confidentiality of Alcohol and Drug Abuse Patient Records regulations: This inform ation has been disclosed to you from records protected by Federal confidentiality rul es ( The Federal rules restrict any use of the in formation to criminally investigate or prosecute any alcohol or drug abuse serjio ent. [facility]In the event this information is protected by the Federal Confidentiality of Alcohol and Drug Abuse Patient Records regulations: This inform ation has been disclosed to you from records protected by Federal confidentiality rul es ( The Federal rules restrict any use of the in formation to criminally investigate or prosecute any alcohol or drug abuse serjio ent. [facility] Reason for Visit (unrecognized section a nd [...] OT Plan of Care Update Reason Comments 39396 Initial Consult Reason Comments Medication Problem Patient Update Reason Comments [facility] Verbal order/med list/pallia tive care order Reason Comments plan of care Care Teams (unrecognized section and con tent) Hydrometer Tester Relationship Specialty Start Date End Date Selwyn Mejias MD PCP - General 12/17/[address] [place] [id number] Hydrometer Tester Relationship Specialty Start Date End Date Selwyn Mejias MD PCP - General 12/17/[address] [place] [address] Hydrometer Tester Relationship Specialty Start Date End Date Selwyn Mejias MD PCP - General 12/17/[address] [place] [address] Hydrometer Tester Relationship Specialty Start Date End Date Selwyn Mejias MD PCP - General 12/17/[address] [place] [address] Hydrometer Tester Relationship Specialty Start Date End Date Selwyn Mejias MD PCP - General 12/17/[address] [place] [address] Hydrometer Tester Relationship Specialty Start Date End Date Selwyn Mejias MD PCP - General 12/17/[address] [place] [address], [place] [address] Hydrometer Tester Relationship Specialty Start Date End Date Selwyn Mejias MD PCP - General 12/17/[address] [place] [address], [place] [address] Hydrometer Tester Relationship Specialty Start Date End Date Selwyn Mejias MD PCP General 12/17/[address] [place] [address], [place] [address] Hydrometer Tester Relationship Specialty Start Date End Date Selwyn Mejias MD PCP General 12/17/[address] [place] [address] [place] [address] Hydrometer Tester Relationship Specialty Start Date End Date Selwyn Mejias MD PCP General 12/17/[address] [place] [address], [place] [address] Hydrometer Tester Relationship Specialty Start Date End Date Selwyn Mejias MD PCP General 12/17/[address] [place] [address], [place] [address] Hydrometer Tester Relationship Specialty Start Date End Date Selwyn Mejias MD PCP General 12/17/[address] [place] [address], [place] [address] Hydrometer Tester Relationship Specialty Start Date End Date Selwyn Mejias MD PCP General 12/17/[address] [place] [address], [place] [address] Hydrometer Tester Relationship Specialty Start Date End Date Selwyn Mejias MD PCP General 12/17/[address] [place] [address], [place] [address] Hydrometer Tester Relationship Specialty Start Date End Date Selwyn Mejias MD PCP - General 12/17/06 [address] [place], [place] [id number] FOR RECORDS PERTAINING TO PATIENTS WHO ARE [...] BE BASED ON THE PRIMARY CLINICAL RECORDS. [facility] [employer] provides no warranty or guarantee of the accuracy or completeness of information in this document.
--- NOTE | 2022-03-24 15:11 | CT_ITS ---
STUDY: CT BRAIN WITHOUT CONTRAST REASON FOR EXAM: Female, 66 years old. Follow-up. Recent fall. Headache. Hypotension. RADIATION DOSAGE (If Supplied By Facility): CTDIvol = ( 44.99 ) mGy, DLP = ( 832.67 ) mGycm TECHNIQUE: Transaxial CT imaging of the brain was performed without administration of intravenous contrast material. Individualized dose optimization techniques were used for this CT. COMPARISON: March 22, 2022. FINDINGS: Normal soft tissue structures. Normal calvarium. There is mild cerebral atrophy with widening of the extra-axial spaces and ventricular dilatation. There are areas of decreased attenuation within the white matter tracts of the supratentorial brain, consistent with microvascular disease changes. Normal basal ganglia and thalami. Normal brainstem. Normal cerebellum. There is no intracranial hemorrhage. There are no findings of an acute ischemic infarction. Normal visualized paranasal sinuses. CT/Brain/Head without Contrast IMPRESSION: Mild chronic and delusional changes without acute intracranial or calvarial abnormality. No major interval change. Electronically Signed: Cale Marley DO at 16:21 EST Reading Location ID and State: [id number] Tel [phone], Service support ,
--- NOTE | 2022-03-24 15:12 | EKG12_ITS ---
Test Reason : Blood Pressure : / mmHG Vent. Rate : 079 BPM Atrial Rate : 079 BPM P-R Int : 162 ms QRS Dur : 096 ms QT Int : 430 ms P-R-T Axes : 064 051 071 degrees QTc Int : 493 ms Sinus rhythm with marked sinus arrhythmia Nonspecific ST abnormality Prolonged QT Abnormal ECG Confirmed by KRYSTAL OFOTE, DIONICIO ([id number]), city editor KAI RODRIGUEZ ([id number]) on 03/28/2022 11:16:08 AM Referred By: ALONZO Confirmed By:DIONICIO RICE MD
--- NOTE | 2022-03-24 15:13 | EX.ED.DYSGE1 ---
HPI History of Present Illness Chief Complaint: Hypotension Informant: patient and family Narrative Narrative: History is from patient and daughter. Patient had a mechanical fall when she was seen 2 days ago. She states she was cleaning the steps and she thought she was farther down the steps than she was. She got up slipped and fell. She denies loss of consciousness. She is not on blood thinners. She did get evaluated in the emergency department. It looks like she had quite a comprehensive evaluation. They found a T12 fracture which is consistent with her area of pain. She went home with Vicodin. But she has only been using it occasionally. The daughter is concerned because she is not eating or drinking for the last couple days. Patient states she just does not have an appetite. Patient is also complaining of a headache ever since the accident/fall that has not gone away. There has not been any reported fever. Although she has severe COPD this is not worsened. She is not having abdominal pain. No urinary symptoms specifically but she has had UTIs several times. Daughter feels that she is confused. She is having trouble remained during things such as when she was last given medications. This is not typical for her. Patient was confused having the same issues this morning before and after taking a Vicodin. This did not seem to alter her symptoms at all. [facility] Medical History Alcohol dependence Alcoholism Allergic rhinitis Anxiety Back pain Chronic bronchitis Chronic hyponatremia Chronic hypoxemic respiratory failure Chronic respiratory failure with hypoxia COPD (chronic obstructive pulmonary disease) Depression Dysphagia Emphysema of lung Hospice care Hypertension Hyponatremia Insomnia Nicotine dependence, cigarettes, uncomplicated Protein-calorie malnutrition, moderate Smoker Smoking greater than 30 pack years Tobacco abuse Home Medications citalopram 20 mg tablet 20 mg PO DAILY depression 10/13/15 [History Last Taken 01/16/22] omeprazole 40 mg capsule,delayed release 40 mg PO DAILY acid reflux 10/13/15 [History Last Taken 01/16/22] amlodipine 2.5 mg tablet (Norvasc) 2.5 mg PO DAILY blood pressure 11/12/18 [History Last Taken 01/16/22] atorvastatin 10 mg tablet 10 mg PO QHS CHOLESTEROL 10/25/20 [History Last Taken 01/16/22] fluticasone fur. 200 mcg-umeclid 62.5 mcg-vilant 25 mcg inhalat.powder (Trelegy Ellipta) 1 inh inhalation DAILY copd 09/28/21 [History Last Taken 09/28/21] thiamine HCl (vitamin B1) 100 mg tablet 100 mg PO TID supplement 09/28/21 [History Last Taken 09/27/21] albuterol sulfate 90 mcg/actuation aerosol inhaler 2 puff inhalation Q4H PRN PRN Shortness Of Breath ##1 10/06/21 [Rx Last Taken Unknown] ipratropium 0.5 mg-albuterol 3 mg (2.5 mg base)/3 mL nebulization soln 3 ml inhalation Q4H PRN PRN SOB &/OR WHEEZING #180 mL 11/25/21 [Rx Last Taken Unknown] acetaminophen 325 mg tablet 650 mg PO Q6H PRN PRN pain/fever 01/18/22 [History Last Taken 01/16/22] cholecalciferol (vitamin D3) 25 mcg (1,000 unit) tablet (Vitamin D3) 25 mcg PO DAILY supplement 01/18/22 [History Last Taken Unknown] polyethylene glycol 3350 17 gram oral powder packet 17 g PO DAILY PRN Constipation 01/18/22 [History Last Taken Unknown] cephalexin 500 mg capsule 500 mg PO TID #16 caps 01/19/22 [Rx Last Taken Unknown] Allergy/AdvReac Type Severity Reaction Status Date / Time bupropion [From Wellbutrin] Allergy Severe hallucinati Verified 03/24/22 14:46 ons Family History Mother Heart disease Hypertension CAD (coronary artery disease) Other No pertinent family history Surgical History S/P chest tube placement Social History household members: significant other history of recent travel: No Smoking Status: Current every day smoker tobacco type: cigarettes quit status: considering quitting counseling given: provider counseling and counseling >10 minutes alcohol intake: current alcohol intake frequency: 3 or more drinks per day Alcohol type: beer details: 4-6 beers daily. substance use type: does not use ROS ROS ED Constitutional Constitutional ED: Denies chills, fever(s) or subjective Eyes Eyes: Denies change in vision ENT ENT ED: Denies rhinorrhea or sore throat Cardiovascular Cardiovascular: Denies chest pain or palpitations Respiratory/Chest Respiratory/Chest: Reports cough and other Details: Cough is chronic and unchanged. ; Denies dyspnea Gastrointestinal Gastrointestinal: Denies abdominal pain, diarrhea, nausea or vomiting Genitourinary Genitourinary ED: Denies dysuria Musculoskeletal Musculoskeletal: Reports back pain; Denies myalgias Integumentary Denies Abrasions or rash Neurologic Neurologic: Reports headache(s); Denies paresthesias or weakness Hematologic/Lymphatic Hematologic/Lymphatic: Denies easy bleeding or easy bruising Allergic/Immunologic Allergic/Immunologic ED: Denies urticaria EXAM Physical Exam Const Vital Signs: 03/24/22 14:47 03/24/22 14:53 03/24/22 16:46 Temperature 97.6 F L Temperature Source Temporal Pulse Rate 90 76 Respiratory Rate 21 H 14 Respiratory Effort Normal Non-Labored Respiratory Pattern Normal Blood Pressure 103/60 99/66 Blood Pressure Mean 74 77 Pulse Ox 95 94 Oxygen Delivery Method Nasal Cannula Nasal Cannula Oxygen Flow Rate (L/min) 4 4 Positive well nourished and well developed Constitutional Narrative: She looks tired but she is awake alert and not toxic appearing. She is awake when I walk in the room. General Appearance ED: well developed HEENT Reports dry mucous membranes HEENT Narrative: Mucous membranes are dry. This is consistent with not really eating or drinking much I do not see any head trauma. Mouth ED: Yes dry mucous membranes Mouth: dry mucous membranes Eyes General Eye ED: Negative for scleral icterus Neck supple General: Negative for tenderness Chest Wall inspection of chest normal Resp normal respiratory effort Resp Narrative: Despite severe COPD, I am not hearing any wheezes or rhonchi. She has mild tenderness of the lower thoracic spine but no rib tenderness or subcu air. Auscultation: Negative for wheezes or diminished lung sounds Cardio regular rate and regular rhythm GI normal to inspection, nondistended, normoactive bowel sounds and non-tender GI Narrative: Bowel sounds do sound normal. I do not hear hypoactive sounds consistent with ileus. Narrative: No CVA tenderness even though she does have some midline tenderness. Back/Spine Back/Spine Narrative: Mild midline tenderness of the lower thoracic upper lumbar area consistent with her compression fracture. There is no bruising or swelling at the spot. Extremity normal to inspection Neuro oriented x3 Neuro Narrative: Patient is alert and oriented to person place time situation current events [employer] . But her daughter states she is still not herself. She is more forgetful and not remembering acute issues that she normally would remember. Psych mental status grossly normal Skin no rashes or lesions noted and no wounds MDM MDM MDM Narrative Medical decision making narrative: CT and chest x-ray showed no acute process. Her white count is mildly elevated but this could be pain, demargination, infection, dehydration or other causes. Hemoglobin is normal. Platelets are normal. Electrolytes do show very low potassium at 2.6. This certainly is a significant contributor to her overall weakness. Calcium is normal. Lactic acid was normal despite mildly low blood pressure. Currently her blood pressure is about 114/78. Her creatinine is normal but still above her baseline. I think there is a component of dehydration. She is given IV fluids for this. She is given both IV and oral potassium. Urine came back shows no marked sign of infection. The family is very concerned about the patient's overall weakness. She is sleeping, hard to get around and not eating and drinking well. I explained that we will see how she is feeling after the potassium is in. If she feels well enough we can get her home. If not she may need to come in and go to rehab. Nurse was able to find out through pharmacy prescribing system that this patient evidently was just prescribed gabapentin yesterday 2. This is probably a significant contributor to her generalized weakness and inability to get up. She is too weak to get up out of bed. I do not think this is CO2 retention. I can wake her up and she is oriented. But she has no energy at all to get up. She is not safe. For this reason she will need to come in. She did not improve with IV fluids and potassium which makes me think that gabapentin may be the larger contributor. I also think there is a component of dehydration. Even though her creatinine is normal it is twice what her normally is. She was given IV fluids also. Lab Data Attestation: I reviewed the patient's lab results. Labs: Laboratory Results - last 24 hr 03/24/22 03/24/22 03/24/22 15:03 15:03 15:03 WBC 15.1 H RBC 4.07 L Hgb 12.7 Hct 36.3 L MCV 89.2 MCH 31.2 MCHC 35.0 RDW Std Deviation 46.0 H RDW Coeff of Oral 14.0 Plt Count 270 MPV 9.8 Immature Gran % (Auto) 0.500 Neut % (Auto) 90.8 H Lymph % (Auto) 3.9 L King % (Auto) 4.7 Eos % (Auto) 0.0 Baso % (Auto) 0.1 Absolute Neuts (auto) 13.7 H Absolute Lymphs (auto) 0.59 L Nucleated RBC % 0 Differential Comment SCANNED Sodium 131 L Potassium 2.6 L* Chloride 96 L Carbon Dioxide 26.0 Anion Gap 9 BUN 25 H Creatinine 1.01 Estim Creat Clear Calc 42.67 Est GFR (MDRD) Af Amer 70 Est GFR (MDRD) Non-Af 58 L BUN/Creatinine Ratio 24.8 H Glucose 149 H Lactic Acid 1.8 Calcium 7.8 L Urine Color Urine Clarity Urine pH Ur Specific [place] Urine Protein Urine Glucose (UA) Urine Ketones Urine Occult Blood Urine Nitrite Urine Bilirubin Urine Urobilinogen Ur Leukocyte Esterase Urine RBC Urine WBC Ur Squamous Epith Cells Urine Bacteria Urine Mucus 03/24/22 17:53 WBC RBC Hgb Hct MCV MCH MCHC RDW Std Deviation RDW Coeff of Oral Plt Count MPV Immature Gran % (Auto) Neut % (Auto) Lymph % (Auto) King % (Auto) Eos % (Auto) Baso % (Auto) Absolute Neuts (auto) Absolute Lymphs (auto) Nucleated RBC % Differential Comment Sodium Potassium Chloride Carbon Dioxide Anion Gap BUN Creatinine Estim Creat Clear Calc Est GFR (MDRD) Af Amer Est GFR (MDRD) Non-Af BUN/Creatinine Ratio Glucose Lactic Acid Calcium Urine Color Yellow Urine Clarity Clear Urine pH 5.0 Ur Specific [place] 1.020 Urine Protein 30 H Urine Glucose (UA) Normal Urine Ketones 15 H Urine Occult Blood 25 H Urine Nitrite Negative Urine Bilirubin Negative Urine Urobilinogen Normal Ur Leukocyte Esterase 25 H Urine RBC 0 SEEN Urine WBC 0-5 SEEN Ur Squamous Epith Cells 0-5 SEEN Urine Bacteria 3+ Urine Mucus 1+ Radiography Diagnostic Testing: Clinical Impression(s) from Imaging Studies Brain CT 03/24/22 15:11 IMPRESSION: Mild chronic and delusional changes without acute intracranial or calvarial abnormality. No major interval change. Electronically Signed: Cale Marley DO at 16:21 EST Reading Location ID and State: [address] [place] [address] Tel [phone], Service support , Chest X-Ray 03/24/22 15:57 IMPRESSION: Question COPD without acute cardiopulmonary disease or interval change. Electronically Signed: Cale Marley DO at 16:21 EST Reading Location ID and State: [address] [place] [address] Tel [phone], Service support , CT scan of the head and chest x-ray read by radiology shows no sign of acute process. No major interval change. EKG Initial EKG: Comments: EKG done for generalized weakness read by me shows sinus rhythm with some sinus arrhythmia and/or PACs. No ventricular ectopy. No acute ST elevation depression. SC interval, QRS duration are normal. QTC is slightly long. Discharge Plan Triage Chief Complaint: Hypotension Other Complaint: Fatigue ED Provider: Mark Martinez Dx/Rx/DC Orders Clinical Impression: Generalized weakness, Unable to ambulate, Medication side effect, Acute hypokalemia, Dehydration Prescriptions: No Action amlodipine [Norvasc] 2.5 mg tablet 2.5 mg PO DAILY albuterol sulfate 90 mcg/actuation HFA aerosol inhaler 2 puff inhalation Q4H PRN PRN (Reason: Shortness Of Breath) Qty: 1 6RF ipratropium-albuterol 0.5 mg-3 mg(2.5 mg base)/3 mL solution for nebulization 3 ml inhalation Q4H PRN PRN (Reason: SOB &/OR WHEEZING) Qty: 180 6RF omeprazole 40 MG capsule,delayed release(DR/EC) 40 mg PO DAILY citalopram 20 MG tablet 20 mg PO DAILY atorvastatin 10 mg tablet 10 mg PO QHS Trelegy Ellipta 200-62.5-25 mcg blister with device 1 inh inhalation DAILY thiamine HCl (vitamin B1) 100 mg Tablet 100 mg PO TID acetaminophen 325 mg tablet 650 mg PO Q6H PRN PRN (Reason: pain/fever) Label Comments: TAKE 1 TABLET EVERY 6 HOURS NEEDED Rx Instructions: takes morning and night polyethylene glycol 3350 17 gram Powder In Packet 17 g PO DAILY PRN (Reason: Constipation) cholecalciferol (vitamin D3) [Vitamin D3] 25 mcg (1,000 unit) Tablet 25 mcg PO DAILY cephalexin 500 mg capsule 500 mg PO TID Qty: 16 0RF Rx Instructions: start the evening of 01/19/22 Primary Care Provider: May Garcia Referrals: May Garcia MD [Primary Care Provider] - Disposition Disposition: Acute Care [facility]
[2022-03-24] MEDS: 0.9% Normal Saline 1,000 ML 1000 ML IV (15:33)
[2022-03-24 15:41] LABS: Absolute Lymphocyte Count 0.59 X10^3/uL (0.83-4.51); Absolute Neutrophil Count 13.7 X10^3/uL (2.0-7.7); Basophil# 0.02 X10^3/uL; Basophil% 0.1 % (0-1); Hematocrit 36.3 % (37-47); Hemoglobin 12.7 g/dL (12.0-15.0); Lymphocyte # 0.59 X10^3/ul (0.83-4.51); Lymphocyte % 3.9 % (19-41); Mean Corpuscular Hgb 31.2 pg (27.0-32.0); Mean Corpuscular Volume 89.2 fL (81-99); Mean Platelet Vol. 9.8 fl (6.2-12.0); Monocyte# 0.71 X10^3/uL; Monocyte% 4.7 % (0-10); NRBC Flagged by Analyzer 0 % (0-5); Neutrophil # 13.66 X10^3/uL (2.7-7.7); Neutrophil % 90.8 % (47-70); POSITIVE DIFFERENTIAL YES; Platelet Count 270 K/mm3 (150-450); Red Blood Count 4.07 M/mm3 (4.2-5.4); White Blood Count 15.1 K/mm3 (4.4-11.0)
[2022-03-24 15:43] LABS: Differential Indicated SCAN CRITERIA MET
--- NOTE | 2022-03-24 15:57 | RAD_ITS ---
STUDY: X-RAY CHEST REASON FOR EXAM: Female, 66 years old. Hypotension. Sluggish. Headache. Alert and oriented. Recently here for fall with compression fracture back. TECHNIQUE: Single AP portable view of the chest. COMPARISON: January 17, 2022. FINDINGS: The lungs are well expanded. There is chronic interstitial changes throughout the lungs without acute infiltrate or mass. The lungs are clear and expanded. There is no demonstrated pleural abnormality. Normal size heart. Normal mediastinum and tripp. Normal visualized pulmonary arteries. There is atherosclerotic calcification of the aortic arch with tortuosity. The thoracic spine is obscured by the mediastinum. Normal visualized ribs, clavicles, and shoulders. There is no demonstrated abnormality of the visualized soft tissue structures of the upper abdomen. RAD/Chest 1 View (Portable) IMPRESSION: Question COPD without acute cardiopulmonary disease or interval change. Electronically Signed: Cale Marley DO at 16:21 EST ,
[2022-03-24 16:14] LABS: Anion Gap 9 (5-15); BUN 25 mg/dL (7-18); BUN/Creat Ratio 24.8 RATIO (10-20); Calcium,Total 7.8 mg/dL (8.5-10.1); Chloride 96 mmol/L (98-107); Creatinine, Serum 1.01 mg/dL (0.55-1.02); EST Glomerular Filtration Rate 58 mL/min (>60); Est Glom Filt Rate - Afr Amer 70 mL/min (>60); Estimated Creatinine Clearance 42.67 ml/min; Glucose 149 mg/dL (74-106); Potassium 2.6 mmol/L (3.5-5.1); Sodium Level 131 mmol/L (136-145)
[2022-03-24 16:16] LABS: Lactic Acid 1.8 mmol/L (0.4-1.9)
[2022-03-24 16:22] LABS: Differential Comment SCANNED
[2022-03-24] MEDS: Potassium Chloride 10mEq/100mL 10 MEQ/100 ML IV.SOLN. 100 MEQ IV BOLUS ×2 (16:59→18:07)
[2022-03-24] MEDS: Potassium Chloride Oral Tablet 20 MEQ 40 MEQ PO (17:01)
[2022-03-24 17:58] LABS: Red Blood Cells-Urine 0 SEEN /hpf (0-5)
[2022-03-24 18:07] LABS: Color, Urine Yellow (Yellow); Glucose, Dipstick Normal (Normal); Ketone-Dipstick 15 mg/dl (Negative); Leukocyte Esterase-Dipstick 25 /ul (Negative); Nitrite-Dipstick Negative (Negative); Occult Blood-Urine 25 /ul (Negative); Protein-Dipstick 30 mg/dl (Negative); Urine Bilirubin Dipstick Negative (Negative); Urine Clarity Clear (Clear); Urine Urobilinogen Normal (Normal)
--- NOTE | 2022-03-24 18:33 | ED.RN ---
Called [facility] to check on medications filled d/t family's concern for pt's lethargy, worried maybe she had too many pain pills. [facility] Pharmacist states she had Hydrocodone/Acet 5/325 filled yesterday 03/23/22, 14 pills, ordered to take 1 tab q12h prn by Dr Rodriguez. Also had Gabapentin 300mg 1 cap B[address] prescribed by Dr Triana. States no prescriptions filled elsewhere per [facility] report.
[2022-03-24 18:42] LABS: Bacteria 3+ /hpf (None Seen); Mucous, Urine 1+ /hpf (<or=2+); Squamous Epithelial Cells - UA 0-5 SEEN /hpf (5-10); White Blood Cells 0-5 SEEN /hpf (0-5)
--- NOTE | 2022-03-24 20:28 | PCM.HP.STD ---
HPI - General General Date of Admission: 03/24/22 Date of Service: 03/24/22 Chief Complaint: Lethargy HPI Narrative SPENCER MENDES, is a 66 F with a significant history of hypertension and COPD on 4 L nasal cannula who presents emergency department with 3-day history of persistent lethargy. Patient has been so lethargic that she is unable to walk. Patient was at a hospital on 03/22/2022 for fall. Reportedly she fell because she missed some steps. Imaging shows compression fractures at the back. Patient was discharged home on Vicodin which actually family forces her to take. Last time she took Vicodin was several before presentation. She reports poor appetite. Nurses review of outpatient medication the patient was recently prescribed gabapentin. [facility] Medical History Alcohol dependence Alcoholism Allergic rhinitis Anxiety Back pain Chronic bronchitis Chronic hyponatremia Chronic hypoxemic respiratory failure Chronic respiratory failure with hypoxia COPD (chronic obstructive pulmonary disease) Depression Dysphagia Emphysema of lung Hospice care Hypertension Hyponatremia Insomnia Nicotine dependence, cigarettes, uncomplicated Protein-calorie malnutrition, moderate Smoker Smoking greater than 30 pack years Tobacco abuse Home Medications citalopram 20 mg tablet 20 mg PO DAILY depression 10/13/15 [History Last Taken 01/16/22] omeprazole 40 mg capsule,delayed release 40 mg PO DAILY acid reflux 10/13/15 [History Last Taken 01/16/22] amlodipine 2.5 mg tablet (Norvasc) 2.5 mg PO DAILY blood pressure 11/12/18 [History Last Taken 01/16/22] atorvastatin 10 mg tablet 10 mg PO QHS CHOLESTEROL 10/25/20 [History Last Taken 01/16/22] fluticasone fur. 200 mcg-umeclid 62.5 mcg-vilant 25 mcg inhalat.powder (Trelegy Ellipta) 1 inh inhalation DAILY copd 09/28/21 [History Last Taken 09/28/21] thiamine HCl (vitamin B1) 100 mg tablet 100 mg PO TID supplement 09/28/21 [History Last Taken 09/27/21] albuterol sulfate 90 mcg/actuation aerosol inhaler 2 puff inhalation Q4H PRN PRN Shortness Of Breath ##1 10/06/21 [Rx Last Taken Unknown] ipratropium 0.5 mg-albuterol 3 mg (2.5 mg base)/3 mL nebulization soln 3 ml inhalation Q4H PRN PRN SOB &/OR WHEEZING #180 mL 11/25/21 [Rx Last Taken Unknown] acetaminophen 325 mg tablet 650 mg PO Q6H PRN PRN pain/fever 01/18/22 [History Last Taken 01/16/22] cholecalciferol (vitamin D3) 25 mcg (1,000 unit) tablet (Vitamin D3) 25 mcg PO DAILY supplement 01/18/22 [History Last Taken Unknown] polyethylene glycol 3350 17 gram oral powder packet 17 g PO DAILY PRN Constipation 01/18/22 [History Last Taken Unknown] cephalexin 500 mg capsule 500 mg PO TID #16 caps 01/19/22 [Rx Last Taken Unknown] Allergy/AdvReac Type Severity Reaction Status Date / Time bupropion [From Wellbutrin] Allergy Severe hallucinati Verified 03/24/22 14:46 ons Family History Mother Heart disease Hypertension CAD (coronary artery disease) Surgical History S/P chest tube placement Social History household members: significant other history of recent travel: No Smoking Status: Current every day smoker tobacco type: cigarettes quit status: considering quitting counseling given: provider counseling and counseling >10 minutes alcohol intake: current alcohol intake frequency: 3 or more drinks per day Alcohol type: beer details: 4-6 beers daily. substance use type: does not use ROS ROS Narrative Pertinent positives and pertinent negatives as noted in HPI. All other systems were reviewed and are negative Vital Signs Vital Signs Vital Signs: 03/24/22 14:47 03/24/22 14:53 03/24/22 16:46 Temperature 97.6 F L Temperature Source Temporal Pulse Rate 90 76 Respiratory Rate 21 H 14 Respiratory Effort Normal Non-Labored Respiratory Pattern Normal Blood Pressure 103/60 99/66 Blood Pressure Mean 74 77 Pulse Ox 95 94 Oxygen Delivery Method Nasal Cannula Nasal Cannula Oxygen Flow Rate (L/min) 4 4 03/24/22 18:00 03/24/22 20:00 Temperature Temperature Source Pulse Rate 78 Respiratory Rate 18 22 H Respiratory Effort Respiratory Pattern Blood Pressure 102/68 Blood Pressure Mean 79 Pulse Ox 99 Oxygen Delivery Method Nasal Cannula Oxygen Flow Rate (L/min) 4 Weight Weight: 50.7 kg Body Mass Index (BMI) 17.9 Physical Exam Narrative Physical exam: General: Well-nourished, well-developed. Head: Normocephalic, atraumatic, no tenderness Eyes: Vision is grossly intact. EOMI ENT, no trauma, moist mucous membranes, no rhinorrhea Neck: Nontender, No thyromegaly. CVS: Plantar-based at left base. S1-S2 present. No murmur, gallop or rub. Respiratory : clear to auscultation bilaterally, chest wall nontender, no wheezing Abdomen: Soft, nontender, nondistended, normal bowel sounds, no masses : Deferred Back: Nontender, no CVA tenderness, no midline spinal tenderness, deformities, step-offs Extremities: Nontender full range of motion, no trauma Skin: Normal color, no trauma, abrasions Neuro: Alert, patient knows that it is a Sunday. She knows the month. She knows the year. But she does not know the year. She is lethargic and she sleeps through conversation. Cranial nerves II through XII grossly intact. Psychiatry: Normal mood. Normal affect. Not depressed. Not anxious. Results Lab / Micro Data Result Diagrams: 03/24/22 15:03 03/24/22 15:03 Labs: Laboratory Results - last 24 hr 03/24/22 15:03: WBC 15.1 H, RBC 4.07 L, Hgb 12.7, Hct 36.3 L, MCV 89.2, MCH 31.2, MCHC 35.0, RDW Std Deviation 46.0 H, RDW Coeff of Oral 14.0, Plt Count 270, MPV 9.8, Immature Gran % (Auto) 0.500, Neut % (Auto) 90.8 H, Lymph % (Auto) 3.9 L, [place] % (Auto) 4.7, Eos % (Auto) 0.0, Baso % (Auto) 0.1, Absolute Neuts (auto) 13.7 H, Absolute Lymphs (auto) 0.59 L, Nucleated RBC % 0, Differential Comment SCANNED 03/24/22 15:03: Sodium 131 L, Potassium 2.6 L*, Chloride 96 L, Carbon Dioxide 26.0, Anion Gap 9, BUN 25 H, Creatinine 1.01, Estim Creat Clear Calc 42.67, Est GFR (MDRD) Af Amer 70, Est GFR (MDRD) Non-Af 58 L, BUN/Creatinine Ratio 24.8 H, Glucose 149 H, Calcium 7.8 L 03/24/22 15:03: Lactic Acid 1.8 03/24/22 17:53: Urine Color Yellow, Urine Clarity Clear, Urine pH 5.0, Ur Specific [place] 1.020, Urine Protein 30 H, Urine Glucose (UA) Normal, Urine Ketones 15 H, Urine Occult Blood 25 H, Urine Nitrite Negative, Urine Bilirubin Negative, Urine Urobilinogen Normal, Ur Leukocyte Esterase 25 H, Urine RBC 0 SEEN, Urine WBC 0-5 SEEN, Ur Squamous Epith Cells 0-5 SEEN, Urine Bacteria 3+, Urine Mucus 1+ Micro: Microbiology 03/24/22 15:25 Nasal Secretion SARS-CoV-2 & FLU Antigen (Rapid) - Final Radiology Impression Brain CT 03/24/22 15:11 IMPRESSION: Mild chronic and delusional changes without acute intracranial or calvarial abnormality. No major interval change. Electronically Signed: Cale Marley DO at 16:21 EST Reading Location ID and State: [facility] / [place] Tel [phone], Service support , Chest X-Ray 03/24/22 15:57 IMPRESSION: Question COPD without acute cardiopulmonary disease or interval change. Electronically Signed: Cale Marley DO at 16:21 EST Reading Location ID and State: [address] [place] [address] Tel [phone], Service support , Assessment & Plan Assessment/Plan (1) Acute hypokalemia: (2) Medication side effect: (3) Unable to ambulate: (4) Encephalopathy acute: PLAN: Plan Acute toxic encephalopathy/inability to ambulate/medication side effect Likely from medication side effects. Hold all sedative medications including Vicodin and gabapentin that patient was recently prescribed. Hold home citalopram N.p.o. except meds. Hopefully when medication wears off patient will improve and can ambulate. We will hold off PT and OT consult for now Acute hypokalemia Potassium presentation was 2.6. EKG showed normal sinus rhythm with high normal QTC. Received p.o. and IV potassium at the emergency department. Lactated Ringer's with potassium ordered. Trend CMP. Check magnesium. Check phosphorus JAKOB Creatinine on presentation was 1.01. Baseline creatinine is around 0.5-0.6. BUN of 25. BUN over creatinine of 24.8. Gentle IV hydration. Trend CMP. Avoid nephrotoxic's. Hypocalcemia Calcium of 7.8. We will check CMP for albumin. Check ionized calcium. Leukocytosis Patient white count of 15.1. His white count on 03/22/2022 was 4.8. Likely reactive. Trend. Urinalysis shows urine bacteria 3+ but with no pyuria. Urine nitrites negative. Urine leukocyte Estrace 25. Chest x-ray was independently visualized and interpreted. No acute cardiopulmonary process seen. I agree with radiologist interpretation. Trend CBC. COPD Stable On baseline home oxygen of 4 L. Home inhalers continued. Hypertension Blood pressure was soft at the emergency department. Hold home blood pressure medications Recent fall with compression fracture. Lumbar x-ray on 03/22/2022 showed mild T2 compression fracture. Parenchyma ordered. DVT prophylaxis: Subcutaneous Lovenox ordered. Charges/Coding Visit Charges OBSV E&M: 98224 Initial observation care L3
--- OUTSIDE RECORDS SUMMARY | 2022-03-24 21:14 | XMS RPT_ITS | CCD ---
[...] Onset buPROPion; Drug Allergy 05-08-2008 Mental Status [facility] (20 sources) Translations: Change Work Phon [...] (Severe pain) for up to 7 days. [id number] 200 actuat albuterol 0.09 mg/actuat metered dose [...] solution Indications: COPD wi th exacerbation ([facility]) Use 3 mL via nebulizer every 4 [...] PAD daily (peripheral art jessa disease) ([facility]) Take 1 tablet b y mouth once [...] Take 5-10 mL by mouth four times rima ly as needed for up to 7 [...] powder inhaler Anticholinergic, Start: 1 take 1 jcjxbamocxi-fgcvudzde-mmuybj er (20 sources) Corticosteroid, End: 12-13-2021 puff(s) [...] by mouth once daily. polyethylene glycol 3350 66439 mg powder for oral solution O smotic [...] fracture of T5 vertebra, initial encounter ([facility])] Other fractures Multiple fractures of Onset: Epi [...] CNPN on 01-30-2022 CNPN Telephone (MPPV) Normal [facility] DALIA DREW ([id number]) 1955 [facility] Date Time Provider Department 01/30/22 SELWYN MEJIAS [facility] During your visit today, we recorded the [...] revoked orders and was adm itted to [facility] for exacerbation of her COPD. D/C and they are requesting orders for pa lliative care. Patient declined services from her [facility] team. Refusing to take medications. Razia English RN January 30, 2022 Tahira Rodriguze 02/15/2022 3:13 PM Signed Call placed to [...] Ma - Fully Assessed Reason for Visit: 66649 [Other] Initial Consult [665] Prescriptions as of 03/13/2022 - atorvastatin (LIPITOR) 10 mg tablet Take 1 tablet by mouth once daily. - citalopram (CELEXA) 20 mg tablet Take 1 tablet by mouth once daily. - vnfyldwycvd-dimhvcbmi-pfdtcvqp (TRELEGY ELLIPT A) 100-62.5-25 mcg inhalation powder [...] - Food Supplement, Lactose-Free (ENSURE ACTIVE HIGH DE OTEIN) liqd Take 237 mL by mouth [...] by this patie (more content not included)... [facility] on 01-27-2022 [facility] Telephone (INTMWS) [facility] DALIA DREW ([id number]) 1955 [facility] Date Time Provider Department 01/27/22 SELWYN MEJIAS INTMWS During your visit today, we recorded the following inf ormation about you: Ami Martin RN 01/27/2022 10:01 AM Signed Alley [facility] Skilled Nurse called in and reports [...] but she doesn't want to see the MOLD CHECKER she wants to see Dr Mikaela Mejias [...] 1 tablet by mouth once daily. - gaoomymhqxn-kaatgzykk-yayvzaeq (TRELEGY ELLIPT A) 100-62.5-25 mcg inhalation powder [...] - Food Supplement, Lactose-Free (ENSURE ACTIVE HIGH DE OTEIN) liqd Take 237 mL by mouth [...] (more content not included)... CNPN on 01-25-2022 [facility] Telephone (INTMWS) [facility] DALIA DREW ([id number]) 1955 [facility] Time Provider Department 01/25/22 SELWYN MEJIAS INTMWS During your visit today, we recorded the following inf ormation about you: Aida Nam LPN 01/25/2022 12:21 PM Signed Deisy with [facility], nursing requesting the followin)verbal orders for half-way plan of care to see pt 1 time a week for 4 weeks. 2)pt was on hospice and revo ked orders and was admitted to [facility] for exacerbation of her COPD. D/C and they are requesting orders for pa lliative care. 3)requesting a copy of pt's current med list to be fax ed to [phone]. (Deisy states pt has medicatio ns all over her house and the need to know what she is to be taking) Aida Manzanares APRN.CALENDER OPERATOR HELPER 01/27/2022 3:20 PM Signed 1-OK C 2. OK palliative care, [facility] are previously 11/2021. 3. Send med lis Kaylyn Wallace Ma 01/27/2022 3:29 PM Signed Called Deisy, she states that patient has declined all care and kicked them out of her home and states she is not going to take any of her medications Lacy Manzanares APRN.CALENDER OPERATOR HELPER 02/07/2022 1:10 PM Signed noted Allergies As of Date: 01/25/2022 Noted Allergy Reactio n WELLBUTRIN SR (BUPROPION) 05/08/2008 1 - Mental Status Change Comments: made me hallucinate Date Reviewed: 12/13/2021 Reviewed by: Kaylyn Wallace Ma - Fully Assessed Reason for Visit: [facility] [Other] Cmt: Verbal order/med list/palliative c are order Primary Visit Diagnosis:COPD, severe (HCC) [J44.9] Order(s):CONSULT TO PALLIATIVE CARE [217 5925] Order #: [id number]: 1 FUTURE Prescriptions as of 02/07/2022 - atorvastatin (LIPITOR) 10 mg tablet Take 1 tablet by mouth once daily. - citalopram (CELEXA) 20 mg tablet Take 1 tablet by mouth once daily. - lhmhhuwdvwu-iqupjyvrr-egodnpml (TRELEGY ELLIPT A) 100-62.5-25 mcg inhalation powder [...] - Food Supplement, Lactose-Free (ENSURE ACTIVE HIGH DE OTEIN) liqd Take 237 mL by mouth [...] included)... CNPN on 01-23-2022 CNPN Telephone (INTMWS) [facility] DALIA DREW ([id number]) 1955 [facility] Date Time Provider Department 01/23/22 SELWYN MEJIAS INTMWS During your visit today, we recorded the following inf ormation about you: Gabby Herring RN 01/23/2022 11:00 AM Signed Guillermina with [facility] OT calling to state pat ient has one-time eval completed only. Patirnt does not require any further OT needs at this time. SpO2 was 96-98% room air during visit today. BP was 138/94 but this was after activity. Patient without any complaints or symptoms. RADHA Conroy, PHOTOENGRAVING SUPERVISOR.CALENDER OPERATOR HELPER 01/23/2022 3:32 PM Signed noted Allergies As [...] 1 tablet by mouth once daily. - jpqmzvuihgu-owbbzepdt-inxuwysr (TRELEGY ELLIPT A) 100-62.5-25 mcg inhalation powder [...] - Food Supplement, Lactose-Free (ENSURE ACTIVE HIGH DE OTEIN) liqd Take 237 mL by mouth [...] included)... CNPN on 01-20-2022 CNPN Telephone (INTMWS) [facility] DALIA DREW ([id number]) 1955 [facility] Time Provider Department 01/20/22 SELWYN MEJIAS INTMWS During your visit today, we recorded the following inf ormation about you: Brittany Magana LPN 01/20/2022 5:00 PM Signed Michelle calling with PT POC. Will be seeing patient for strength and gain training, safe transfers and pain management. 1 time a for 1 week 2 times for 2 weeks 1 time for 1 week. Lacy Manzanares APRN.CALENDER OPERATOR HELPER 01/23/2022 3:36 PM Signed Noted, agree Allergies [...] 1 tablet by mouth once daily. - ftfyyflwpyq-meuqrvbwm-ksadwzwn (TRELEGY ELLIPT A) 100-62.5-25 mcg inhalation powder [...] - Food Supplement, Lactose-Free (ENSURE ACTIVE HIGH DE OTEIN) liqd Take 237 mL by mouth [...] included)... LUIZN on 01-19-2022 LUIZN Telephone (FAMPWS) [facility] DALIA DREW ([id number]) 1955 [facility] Date Time Provider Department 01/19/22 LACY MANZANARES During your visit today, we recorded the following inf ormation about you: Alyx Hickey LPN 01/19/2022 11:27 AM Signed Nallely from [facility] called, pt will be discharging from [facility] today. Pt/family has revoked hospice care, hospital has ordered nsg, PT AND OT Dx toxic encephalopathy AND UTI. Plan is to see pt binu barba. Will provider agree to follow? Alyx Manzanares APRN.CALENDER OPERATOR HELPER 01/19/2022 1:12 PM Signed Noted, OK. Refer to hospice at later date if willing. Racheal Lopez LPN 01/19/2022 1:47 PM Signed No answer. Left providers message for Nallely from [facility] on voice mail and ask to [...] 1 tablet by mouth once daily. - hkyotbovgle-jlsauhijn-xdykukwu (TRELEGY ELLIPT A) 100-62.5-25 mcg inhalation powder [...] - Food Supplement, Lactose-Free (ENSURE ACTIVE HIGH DE OTEIN) liqd Take 237 mL by mouth [...] included)... CNPN on 12-15-2021 CNPN Telephone (INTMWS) [facility] DALIA DREW ([id number]) 1955 [facility] Date Time Provider Department 12/15/21 [...] will call patient to schedule. Lacy Manzanares APRN.CALENDER OPERATOR HELPER 12/20/2021 7:31 AM Signed Has this been [...] 1 tablet by mouth once daily. - sgcfgdgfczn-nljiwhqbo-hlemsjrs (TRELEGY ELLIPT A) 100-62.5-25 mcg inhalation powder [...] - Food Supplement, Lactose-Free (ENSURE ACTIVE HIGH DE OTEIN) liqd Take 237 mL by mouth [...] (INTMWS) [facility] DALIA DREW ([id number]) 1955 [facility] Date Time Provider Department 12/13/21 9:40 AM SELWYN MEJIAS INTMWS During your visit today, we recorded the following inf ormation about you: Pulse Blood pressure Weight 97/minute 122/88 48.5 kg Selwyn Mejias MD 01/05/2022 2:37 PM Signed This note was created using [employer]. 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 Plans for lung biopsy discussed. Noted [...] by mouth twice daily for 90 days. nxchxeoaimt-mjxpzzaka-seuxlbmp (TRELEGY ELLIPTA) 100-6 2.5-25 mcg inhalation powder [...] (more content not included)... LUIZN on 12-05-2021 [facility] Telephone (INTMWS) [facility] DALIA DREW ([id number]) 1955 [facility] Date Time Provider Department 12/05/21 SELWYN MEJIAS [facility] During your visit today, we recorded the following inf ormation about you: Sugey Amezcuakallie [place] 12/05/2021 10:34 AM Signed Donya Nurse from [facility] calling was unable to do lung biopsy, [...] LPN 12/15/2021 2:32 PM Signed Nurse from [facility] was given providers message and verbali zed [...] 1 tablet by mouth once daily. - ntvhyycrjsp-xkmixirbc-rinjbmla (TRELEGY ELLIPT A) 100-62.5-25 mcg inhalation powder [...] - Food Supplement, Lactose-Free (ENSURE ACTIVE HIGH DE OTEIN) liqd Take 237 mL by mouth [...] included)... CNPN on 11-25-2021 CNPN Telephone (INTMWS) [facility] DALIA Ramirez S ([id number]) 1955 [facility] Date Time Provider Department 11/25/21 SELWYN MEJIAS During your visit today, we recorded the following inf ormation about you: Sugey Amezcuakallie [place] 11/25/2021 9:48 AM Signed Virgen from [facility] [employer] calling asking if an y paper work patient needs to take to Dr Bentley-Bellstand Attendant? Did not see anyt erin in computer. Patient has appt scheduled today with Pulmonary toro kwon to update her HANDP for biopsy lung mass. Hoping patient does keep that appt. Virgen works electronic parts salesperson and gave her pharmacy benefit manager, Delmy ph one number is [phone] if needed. Aware patient had cancelled her appt mid October with Lacy Manzanares MOLD CHECKER . Sugey Amezcuakallie LA 11/25/2021 4:16 PM [...] cemail, she can always get it from high school biology teacher if PCP does not want t o do it. Virgen is faxing copy of POA [employer] care to the office also. She had giv en me grand daughter Mikala phone number is [phone]. She thinks serjio ent is having memory [...] Martin RN 11/29/2021 11:24 AM Signed Delmy [facility] CM called and is notified of providers [...] for Visit: Patient Update [1234] Patient Question [[id number]] Prescriptions as of 11/29/2021 - atorvastatin (LIPITOR) [...] mouth twice daily for 90 days. - ikrhasqlwbx-svlufzang-gjhopzke (TRELEGY ELLIPT A) 100-62.5-25 mcg inhalation powder Inhale 1 Puff as instructed once daily. - aspirin 81 mg chewable tablet Take 1 tablet by mouth once daily. - Food Supplement, Lactose-Free (ENSURE ACTIVE HIGH DE OTEIN) liqd Take 237 mL by mouth [...] (more content not included)... CNPN on 11-07-2021 [facility] Telephone (INTMWS) [facility] DALIA Ramirez ([id number]) 1955 [facility] Time Provider Department 11/07/21 SELWYN MEJIAS INTMWS During your visit today, we recorded the following inf ormation about you: Cristine Escalante RN 11/07/2021 2:22 PM Signed Kaylyn - [facility] - phoned to see if patient has seen p cp recently- they were hoping they could get an H AND P, to do lung biopsy to [place], for lung mass. Reports patient was scheduled for this 2 weeks ago, bu t no showed. The 2nd time [facility] scheduled patient, patient was instructed to be [...] Karriteetee BESSIE 11/08/2021 4:03 PM Signed Called [facility] radiology dept. They will be doing pt s biopsy. They need an update HANDP. Pt missed several HANDP appts with Dr. Bentley the pulmo nologist with [facility]. Called pt to review the HANDP should [...] mouth twice daily for 90 days. - tskzbcnlsit-omgwoyvim-ramqhpft (TRELEGY ELLIPT A) 100-62.5-25 mcg inhalation powder Inhale 1 Puff as instructed once daily. - aspirin 81 mg chewable tablet Take 1 tablet by mouth once daily. - Food Supplement, Lactose-Free (ENSURE ACTIVE HIGH DE OTEIN) liqd Take 237 mL by mouth [...] included)... CNPN on 09-01-2021 CNPN Telephone (INTMWS) [facility] DALIA DREW ([id number]) 1955 [facility] Date Time Provider Department 09/01/21 LACY MANZANARES INTMWS During your visit today, we recorded the following inf ormation about you: Lacy Manzanares APRN.CALENDER OPERATOR HELPER 09/01/2021 4:49 PM Signed Please let he [...] Abs Lymph 1.00 - 4.00 k/uL 1.25 Cost[place]% % 13.3 Abs [place] <0.87 k/uL 0.77 Eosin% % 3.1 Abs [...] mouth twice daily for 90 days. - bzkwavpkcsb-ucnmgbdxk-avbzuydw (TRELEGY ELLIPT A) 100-62.5-25 mcg inhalation powder Inhale 1 Puff as instructed once daily. - aspirin 81 mg chewable tablet Take 1 tablet by mouth once daily. - Food Supplement, Lactose-Free (ENSURE ACTIVE HIGH DE OTEIN) liqd Take 237 mL by mouth [...] Basophils (Bld) [#/Vol] 0.04 10*3/uL Normal <0.11 [facility] Comment on above: Order Comment: Specimen Type : BLOOD SPECIMENOrdering Facility: [facility] Address: [address] [address] Performed By: #### 50048-2 # ###[facility] LABIA [id number] [address] STATES OF [facility] Basophils/100 WBC (Bld) 0.7 % Normal [facility] Comment on above: Order Comment: Specimen Type : BLOOD SPECIMENOrdering Facility: [facility] Address: [address] [address] Performed By: #### 57873-4 # ###[facility] LABCLIA [id number] [place] [address] [place] Differential cell count method Nom (Bld) Auto Normal [facility] Comment on above: Order Comment: Specimen Type : BLOOD SPECIMENOrdering Facility: [facility] Address: [address] [place] [address] Performed By: #### 59632-2 # ###[facility] LABCLIA [id number] [place] [address] [place] Eosinophils (Bld) [#/Vol] 0.18 10*3/uL Normal <0.46 [facility] Comment on above: Order Comment: Specimen Type : BLOOD SPECIMENOrdering Facility: [facility] Address: [address] [place] [address] Performed By: #### 70184-5 # ###[facility] LABIA [id number] [place] [address] [place] Eosinophils/100 WBC (Bld) 3.1 % Normal [facility] Comment on above: Order Comment: Specimen Type : BLOOD SPECIMENOrdering Facility: [facility] Address: [address] [place], [place] [id number] Performed By: #### 05104-9 # ###[facility] LABIA [id number] [place] [address] [place] Erythrocyte distribution width 13.2 % Normal 11.5-15.0 [facility] (RBC) [Ratio] Comment on above: Order Comment: Specimen Type : BLOOD SPECIMENOrdering Facility: [facility] Address: [address] [place], [place] [id number] Performed By: #### 24410-1 # ###[facility] LABIA [id number] [place] [address] [place] Hematocrit (Bld) [Volume fraction] 39.4 % Normal 36.0-4 6.0 [facility] Comment on above: Order Comment: Specimen Type : BLOOD SPECIMENOrdering Facility: [facility] Address: [address] [place] [address] Performed By: #### 57982-2 # ###[facility] LABIA [id number] [address] [place] Hemoglobin (Bld) [Mass/Vol] 12.9 g/dL Normal 11.5-15.5 [facility] Comment on above: Order Comment: Specimen Type : BLOOD SPECIMENOrdering Facility: [facility] Address: [address] [place] [address] Performed By: #### 79318-1 # ###[facility] LABIA [id number] [place] [address] [place] IMMATURE GRAN % 0.3 % Normal [facility] Comment on above: Order Comment: Specimen Type : BLOOD SPECIMENOrdering Facility: [facility] Address: [address] [place] [address] Performed By: #### 02899-0 # ###[facility] LABIA [id number] [place] [address] [place] IMMATURE GRAN ABS <0.03 Normal <0.10 [facility] Comment on above: Order Comment: Specimen Type : BLOOD SPECIMENOrdering Facility: [facility] Address: [address] [place], [place] [id number] Performed By: #### 06041-9 # ###[facility] LABIA [id number] [place] [address] [place] Lymphocytes (Bld) [#/Vol] 1.25 10*3/uL Normal 1.00-4.00 [facility] Comment on above: Order Comment: Specimen Type : BLOOD SPECIMENOrdering Facility: [facility] Address: [address] [place] [address] Performed By: #### 25335-4 # ###[facility] LABIA [id number] [place] [address] [place] Lymphocytes/100 WBC (Bld) 21.5 % Normal [facility] Comment on above: Order Comment: Specimen Type : BLOOD SPECIMENOrdering Facility: [facility] Address: [address] [place] [address] Performed By: #### 47667-2 # ###[facility] LABCLIA [id number] [place] [address] [place] MCH (RBC) [Entitic mass] 30.4 pg Normal 26.0-34.0 [facility] Comment on above: Order Comment: Specimen Type : BLOOD SPECIMENOrdering Facility: [facility] Address: [address] [place], [place] [address] Performed By: #### 41119-4 # ###[facility] LABIA [id number] [place] [address] [place] MCHC (RBC) [Mass/Vol] 32.7 g/dL Normal 30.5-36.0 [facility] Comment on above: Order Comment: Specimen Type : BLOOD SPECIMENOrdering Facility: [facility] Address: [address] [place], [place] [address] Performed By: #### 62861-0 # ###[facility] LABIA [id number] [place] [address] [place] MCV (RBC) [Entitic vol] 92.9 fL Normal 80.0-100.0 [facility] Comment on above: Order Comment: Specimen Type : BLOOD SPECIMENOrdering Facility: [facility] Address: [address] [place], [place] [address] Performed By: #### 49632-8 # ###[facility] LABIA [id number] [place] [address] [place] Monocytes (Bld) [#/Vol] 0.77 10*3/uL Normal <0.87 [facility] Comment on above: Order Comment: Specimen Type : BLOOD SPECIMENOrdering Facility: [facility] Address: [address] [place], [place] [address] Performed By: #### 80517-4 # ###[facility] LABCLIA [id number] [place] [address] [place] Monocytes/100 WBC (Bld) 13.3 % Normal [facility] Comment on above: Order Comment: Specimen Type : BLOOD SPECIMENOrdering Facility: [facility] Address: [address] [place], [place] [address] Performed By: #### 31512-5 # ###[facility] LABCLIA [id number] [place] [address] [place] Neutrophils (Bld) [#/Vol] 3.55 10*3/uL Normal 1.45-7.50 [facility] Comment on above: Order Comment: Specimen Type : BLOOD SPECIMENOrdering Facility: [facility] Address: [address] [place], [place] [address] Performed By: #### 82509-4 # ###[facility] LABCLIA [id number] [place] [address] [place] Neutrophils/100 WBC (Bld) 61.1 % Normal [facility] Comment on above: Order Comment: Specimen Type : BLOOD SPECIMENOrdering Facility: [facility] Address: [address] [place] [address] Performed By: #### 55325-5 # ###[facility] LABCLIA [id number] [place] [address] [place] Nucleated RBC (Bld) [#/Vol] 10*3/uL Normal <0.01 [facility] Comment on above: Order Comment: Specimen Type : BLOOD SPECIMENOrdering Facility: [facility] Address: [address] [place], [place] [address] Performed By: #### 37552-3 # ###[facility] LABCLIA [id number] [place] [address] [place] Nucleated RBC/100 WBC (Bld) [Ratio] 0.0 /100 WBC Normal [facility] Comment on above: Order Comment: Specimen Type : BLOOD SPECIMENOrdering Facility: [facility] Address: [address] [place] [address] Performed By: #### 30447-0 # ###[facility] LABIA [id number] [place] [address] [place] Platelet mean volume (Bld) 10.1 fL Normal 9.0-12.7 [facility] [Entitic vol] Comment on above: Order Comment: Specimen Type : BLOOD SPECIMENOrdering Facility: [facility] Address: [address] [place] [address] Performed By: #### 96682-2 # ###[facility] LABCLIA [id number] [place] [address] [place] Platelets (Bld) [#/Vol] 390 10*3/uL Normal 150-400 [facility] Comment on above: Order Comment: Specimen Type : BLOOD SPECIMENOrdering Facility: [facility] Address: [address] [place], [place] [address] Performed By: #### 44565-6 # ###[facility] LABIA [id number] [place] [address] [place] RBC (Bld) [#/Vol] 4.24 10*6/uL Normal 3.90-5.20 [facility] Comment on above: Order Comment: Specimen Type : BLOOD SPECIMENOrdering Facility: [facility] Address: [address] [place], [place] [address] Performed By: #### 28973-0 # ###[facility] LABCLIA [id number] [place] [address] [place] WBC (Bld) [#/Vol] 5.81 10*3/uL Normal 3.70-11.00 [facility] Comment on above: Order Comment: Specimen Type : BLOOD SPECIMENOrdering Facility: [facility] Address: [address] [place], [place] [address] Performed By: #### 34878-5 # ###[facility] LABCLIA [id number] [address] [address] [place] Comprehensive metabolic 2000 panel on 0 08-31-2021 Albumin [Mass/Vol] 4.3 g/dL Normal 3.9-4.9 [facility] Comment on above: Order Comment: Specimen Type : BLOOD SPECIMENOrdering Facility: [facility] Address: [address] [place], [place] [address] Performed By: #### 98635-5, 81650-0, LIPNF, 3016-3 ####[facility] LABCLIA 3 [id number] [place] [address] [place] [address] [place] ALP [Catalytic activity/Vol] 61 U/L Normal 34-123 [facility] Comment on above: Order Comment: Specimen Type : BLOOD SPECIMENOrdering Facility: [facility] Address: [address] [place], [place] [address] Performed By: #### 96928-8, 76469-9, LIPNF, 3016-3 ####[facility] LABCLIA 3 [id number] [address] [place] [id number] [place] [address] [place] ALT [Catalytic activity/Vol] 12 U/L Normal 7-38 [facility] [facility] Comment on above: Order Comment: Specimen Type : BLOOD SPECIMENOrdering Facility: [facility] Address: [address] [place], [place] [address] Performed By: #### 35251-1, 33561-9, LIPNF, 3016-3 ####[facility] LABCLIA [id number] [address] [place] Anion gap [Moles/Vol] 11 mmol/L Normal 9-18 [facility] Comment on above: Order Comment: Specimen Type : BLOOD SPECIMENOrdering Facility: [facility] Address: [address] [place] [address] Performed By: #### 46726-9, 10212-1, LIPNF, 6-3 ####[facility] LABCLIA [id number] [address] [place] AST [Catalytic activity/Vol] 17 U/L Normal 13-35 [facility] [place] Comment on above: Order Comment: Specimen Type : BLOOD SPECIMENOrdering Facility: [facility] Address: [address] [place], [place] [address] Performed By: #### 54054-4, 28654-4, LIPNF, 6-3 ####[facility] LABCLIA 3 [id number] [place] [id number] [place] Bilirubin [Mass/Vol] 0.7 mg/dL Normal 0.2-1.3 [facility] Comment on above: Order Comment: Specimen Type : BLOOD SPECIMENOrdering Facility: [facility] Address: [address] [place], [place] [address] Performed By: #### 18567-6, 73894-0, LIPNF, 6-3 ####[facility] LABCLIA [id number] [address] [place] Calcium [Mass/Vol] 9.0 mg/dL Normal 8.5-10.2 [facility] [place] Comment on above: Order Comment: Specimen Type : BLOOD SPECIMENOrdering Facility: [facility] Address: [address] [place], [place] [id number] Performed By: #### 54453-9, 33063-7, LIPNF, 6-3 ####[facility] LABCLIA [id number] [address] [place] Chloride [Moles/Vol] 96 mmol/L Low 97-105 [facility] Comment on above: Order Comment: Specimen Type : BLOOD SPECIMENOrdering Facility: [facility] Address: [address] [place], [place] [address] Performed By: #### 44845-0, 40076-9, LIPFABIANO, 6-3 ####[facility] LABCLIA [id number] [address] [address] [place] CO2 [Moles/Vol] 26 mmol/L Normal 22-30 [facility] Comment on above: Order Comment: Specimen Type : BLOOD SPECIMENOrdering Facility: [facility] Address: [address] [place], [place] [address] Performed By: #### 02196-6, 38424-9, LIPFABIANO, 6-3 ####[facility] LABCLIA 3 [id number] [place] [address] [place] Creatinine [Mass/Vol] 0.54 mg/dL Low 0.58-0.96 [facility] Comment on above: Order Comment: Specimen Type : BLOOD SPECIMENOrdering Facility: [facility] Address: [address] [place] [address] Performed By: #### 87968-0, 38678-9, LIPFABIANO, 6-3 ####[facility] LABCLIA [id number] [address] [place] ESTIMATED GLOMERULAR 100 mL/min/1.73m??? Normal >=60 [facility] [place] [facility]TRATION [facility]ATE Comment on above: Order Comment: Specimen Type : BLOOD SPECIMENOrdering Facility: [facility] Address: [address] [place], [place] [address] Result Comment: Estimated Gl omerular Filtration Rate [...] accurately reflect actual GFR. Performed By: #### 94179-7, 85684-5, JANET, 6-3 ####[facility] LABCLIA [id number] [address] [place] Glucose [Mass/Vol] 97 mg/dL Normal 74-99 [facility] [place] Comment on above: Order Comment: Specimen Type : BLOOD SPECIMENOrdering Facility: [facility] Address: [address] [id number] Result Comment: The [place] Diabetes Association (ADA) provides guidance for cutoff [...] for diagnosis of diabetes. Reference: Standards of [facility] Care in Diabetes 2016, [place] Diabetes Association. Diabetes Care. 2016.39(Suppl 1). Performed By: #### 52372-0, 19199-0, JANET, 3015- ####[facility] LABCLIA [id number] [address] [place] Potassium [Moles/Vol] 4.0 mmol/L Normal 3.7-5.1 [facility] Comment on above: Order Comment: Specimen Type : BLOOD SPECIMENOrdering Facility: [facility] Address: [address] [place] [address] Performed By: #### 47453-3, 22953-0, JANET, 3015-3 ####[facility] LABCLIA [id number] [address] [place] Protein [Mass/Vol] 6.9 g/dL Normal 6.3-8.0 [facility] [place] Comment on above: Order Comment: Specimen Type : BLOOD SPECIMENOrdering Facility: [facility] Address: [address] [place] [address] Performed By: #### 29678-5, 26784-6, LIPNF, 6-3 ####[facility] LABCLIA [id number] [address] [place] [facility] Sodium [Moles/Vol] 133 mmol/L Low 136-144 [facility] [place] Comment on above: Order Comment: Specimen Type : BLOOD SPECIMENOrdering Facility: [facility] Address: [address] [place], [place] [phone] Performed By: #### 91685-2, 86649-8, LIPNF, 6-3 ####[facility] LABCLIA [id number] [address] [address] [place] [facility] Urea nitrogen [Mass/Vol] 16 mg/dL Normal 7-21 [facility] Comment on above: Order Comment: Specimen Type : BLOOD SPECIMENOrdering Facility: [facility] Address: [address] [place] [address] Performed By: #### 52120-4, 85043-3, LIPNF, 6-3 ####[facility] LABCLIA [id number] [address] [address] [place] [facility] LIPID PANEL, NONFASTING on 08-31-2021 Cholesterol [Mass/Vol] 159 mg/dL Normal <200 [facility] Comment on above: Order Comment: Specimen Type : BLOOD SPECIMENOrdering Facility: [facility] Address: [address] [place] [address] Result Comment: <200 mg/dL, Desirable 200-239 mg/dL, Borderline hi gh >239 mg/dL, High Performed By: #### 98822-9, 31899-8, LIPNF, 6-3 ####[facility] LABCLIA [id number] [address] [address] [place] [facility] HDL CHOLESTEROL, NF 66 mg/dL Normal >39 [facility] Comment on above: Order Comment: Specimen Type : BLOOD SPECIMENOrdering Facility: [facility] Address: [address] [place] [address] Result Comment: 40-59 mg/dL, Acceptable >59 mg/dL, High: Negative ri sk factor for coronary heart disease <40 mg/dL, Low: Positive ris k factor for coronary heart disease Performed By: #### 06362-7, 70844-4, JANET, 6-3 ####[facility] LABCLIA [id number] LDL CHOLESTEROL, NF 83 mg/dL Normal <100 [facility] Comment on above: Order Comment: Specimen Type : BLOOD SPECIMENOrdering Facility: [facility] Address: [address] [place] [address] Result Comment: <100 mg/dL, Optimal 100-129 mg/dL, Near optimal/ above optimal 130-159 mg/dL, Borderline hi gh 160-189 mg/dL, High >189 mg/dL, Very high Secondary prevention optimal LDL Cholesterol levels are recommended to be < 70 mg/dL Performed By: #### 63194-6, 88929-1, LIPFABIANO, 6-3 ####[facility] LABCLIA [id number] LDL/HDL RATIO, NF 1.26 mg/dL Normal <2.54 [facility] [place] Comment on above: Order Comment: Specimen Type : BLOOD SPECIMENOrdering Facility: [facility] Address: [address] [place] [address] Result Comment: Reference: 1. National Cholesterol Educ ation Program ATP III Guideline At-A-Glance Quick Desk Reference: National Heart, Lung, and Blood [place]. National Institutes of Health. 2001: NIH Publication No. 01-3305. 2. An International Atherosc lerosis Society position paper: global recommendations for the management of dyslipidemia: executive summary, Atherosclerosis. 2014: 232(2):410-413. Performed By: #### 46081-1, 17881-9, LIPNF, 3016-3 ####[facility] LABCLIA [id number] NON HDL CHOL, NF 93 mg/dL Normal <130 [facility] Comment on above: Order Comment: Specimen Type : BLOOD SPECIMENOrdering Facility: [facility] Address: [address] [place] [address] Result Comment: <130 mg/dL, Optimal 130-159 mg/dL, Near optimal/ above optimal 160-189 mg/dL, Borderline hi gh 190-219 mg/dL, High >219 mg/dL, Very high Secondary prevention optimal non HDL Cholesterol levels are recommended to be <100 mg/dL Performed By: #### 90462-1, 37039-9, LIPNF, 3016-3 ####[facility] LABCLIA [id number] T CHOL/HDL RATIO NF 2.41 mg/dL Normal <5.10 [facility] Comment on above: Order Comment: Specimen Type : BLOOD SPECIMENOrdering Facility: [facility] Address: [address] [place] [address] Performed By: #### 71962-2, 81418-8, LIPNF, 3016-3 ####[facility] LABCLIA [id number] TRIGLYCERIDES, NF 51 mg/dL Normal <150 [facility] [place] Comment on above: Order Comment: Specimen Type : BLOOD SPECIMENOrdering Facility: [facility] Address: [address] [place], [place] [phone] Result Comment: <150 mg/dL, Normal 150-199 mg/dL, Borderline hi gh 200-499 mg/dL, High >499 mg/dL, Very high Performed By: #### 42861-7, 22062-1, LIPNF, 3016-3 ####[facility] LABCLIA [id number] [address] [place] [facility] VLDL CHOLESTEROL, NF 10 mg/dL Normal <30 [facility] Comment on above: Order Comment: Specimen Type : BLOOD SPECIMENOrdering Facility: [facility] Address: [address] [place] [address] Performed By: #### 69995-4, 11705-5, LIPNF, 3016-3 ####[facility] LABCLIA [id number] [facility] Magnesium SerPl-mCnc on 08-31-2021 Magnesium [Mass/Vol] 1.9 mg/dL Normal 1.7-2.3 [facility] Comment on above: Order Comment: Specimen Type : BLOOD SPECIMENOrdering Facility: [facility] Address: [address] [place] [address] Performed By: #### 67925-8, 89338-4, LIPNF, 3016-3 ####[facility] LABCLIA [id number] [facility] TSH SerPl-aCnc on 08-31-2021 TSH Qn 1.210 m[IU]/L Normal 0.270-4.200 [facility] Comment on above: Order Comment: Specimen Type : BLOOD SPECIMENOrdering Facility: [facility] Address: [address] [place], [place] [address] Performed By: #### 42642-8, 00074-8, LIPNF, 3016-3 ####[facility] LABCLIA 3 [id number] [place] [id number] [place] [facility] VITAMIN B12 BLOOD on 08-31-2021 Cobalamin (Vitamin B12) [Mass/Vol] pg/mL High 232-1, 245 [facility] [place] Comment on above: Order Comment: Specimen Type : BLOOD SPECIMENOrdering Facility: [facility] Address: [address] [place], [place] [address] Performed By: #### B12 ####[facility] LABCLIA [id number] [place] [address] [place] CNPN on 08-23-2021 CNPN Telephone (ISAI) [facility] DALIA DREW ([id number]) 1955 [address] [place] Date Time Provider Department 08/23/21 JORGE FLEMING During your visit today, we recorded the following inf ormation about you: Jorge Fleming, MOTION AND TIME STUDY TEACHER 08/23/2021 9:59 AM Signed called and left message f or patient in regards to consult request to help with financial constraints and help around the house. Sw requested patient call back to discuss needs. Jorge Fleming, MOTION AND TIME STUDY TEACHER 08/24/2021 11:44 AM Signed left 2nd message for patient to return to [facility] s financial/home care assistance needs. Allergies [...] mouth twice daily for 90 days. - qsmwvdkhyzf-kaaelhjxc-qcholove (TRELEGY ELLIPT A) 100-62.5-25 mcg inhalation powder Inhale 1 Puff as instructed once daily. - aspirin 81 mg chewable tablet Take 1 tablet by mouth once daily. - Food Supplement, Lactose-Free (ENSURE ACTIVE HIGH DE OTEIN) liqd Take 237 mL by mouth [...] CNOV Office Visit (INTMWS) Normal [facility] DALIA DREW ([id number]) 1955 [facility] Date Time Provider Department 08/19/21 9:40 AM LACY MANZANARES INTCristineWS During your visit today, we recorded the following inf ormation about you: Pulse Respiration Blood pressure Weight 93/minute 16/minute 132/88 51.7 kg Height 1.613 m Lacy Manzanares APRN.CALENDER OPERATOR HELPER 08/19/2021 10:45 AM Signed SUBJECTIVE: LUNG CANCER [...] from previous visit: She was admitted to [facility] er 9 through December 06, 2020. 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 Treated with IV azithromycin and IV Zosyn [...] inhaler refill from Dr. Bentley Follow-up with high school biology teacher: scheduled for next week, Dr. Bentley's office Complete medications: yes completed. Notes eating OK. Does not take any supplemental, nothi ng recommended at discharge notes continues to smoke, EtOH. Notes chronic back pain, stable, no alarm symptoms, ib uprofen seems to help somewhat. Not interested in physical therapy. Has not seen spine physician. X-ray completed in February. Requests [place]. Presents today for routine f ollow up visit. She reports no hos (more content not included)... CNCO on 08-09-2021 CNCO Letter Text [facility] CNPN on 07-05-2021 CNPN Telephone (FAMPWS) [facility] DALIA DREW ([id number]) 1955 [facility] Date Time Provider Department 07/05/21 [...] 1 capsule by mouth once daily. - nsyusjjlinc-kinjsxknd-urnbtvud (TRELEGY ELLIPTA) 100 -62.5-25 mcg Inhale 1 Puff as instructed once daily. - ibuprofen (MOTRIN) 800 mg tablet Take 1 tablet by mouth every 8 hours as needed for lily n (back). - Food Supplement, Lactose-Free (ENSURE ACTIVE HIGH DE OTEIN) liqd Take 237 mL by mouth [...] OBSOLETE on 08-04-2020 OBSOLETE Refill (SPAGWO) Normal [facility] DALIA DREW ([id number]) 1955 F Medical Date Time Provider Department [...] Date Reviewed: 08/03/2020 Reviewed by: Lacy Manzanares APRN.CALENDER OPERATOR HELPER - Fully Assessed Reason for Visit: Refill [...] OBSOLETE on 05-05-2020 OBSOLETE Refill (SPAGWO) Normal [facility] DALIA DREW ([id number]) 1955 F Medical Date Time Provider Department [...] on 04-01-2020 CNOV Office Visit (SPAGWO) Normal [place] DALIA Mitchell ([id number]) 1955 F Medical Date Time Provider Department Center 04/01/20 10:00 AM ERIC JEFFERSON (PHOTOENGRAVING SUPERVISOR.DIRECTOR [employer]) SPAGWO During your visit today, we recorded [...] - Chronic obstructive pulmonary disease (COPD) ([facility]) - Dysphagia, unspecified(787.20) - Emphysema lung (HCC) [...] OBSOLETE on 03-16-2020 OBSOLETE Refill (SPAGWO) Normal [facility] DALIA DREW ([id number]) 1955 F Medical Date Time Provider Department [...] on 03-04-2020 CNOV Office Visit (SPAGWO) Normal [place] DALIA Mitchell ([id number]) 1955 F Medical Date Time Provider Department Center 03/04/20 10:45 AM JOSE LANIER SPAGWO During your visit today, we recorded the following inf ormation about you: Temperature Weight Height CNPN on 02-25-2020 CNPN Telephone (AGSPINE3) Normal [place] DALIA Mitchell ([id number]) 1955 F Medical Date Time Provider Department Center 02/25/20 ERIC JEFFERSON (PHOTOENGRAVING SUPERVISOR.DIRECTOR [employer]) AGSPINE3 During your visit today, we recorded the following inf ormation about you: MATEO Crowell 02/25/2020 7:49 AM Signed ----- Message from Nasra Stinson sent at 02/24/2020 4:54 PM EST ----- Subject Line Format: [facility] [place]/ Eric forbes CNP Patient has been identified [...] other than patient: no Best contact number: [phone] Nasra Scott February 24, 2020 4:55 PM [...] on 02-12-2020 CNOV Office Visit (SPAGWO) Normal [facility] VIKIDALIA Robbins ([id number]) 1955 F Medical Date Time Provider Department Center 02/12/20 9:45 AM JOSE LANIER SPAGWO During your visit today, we recorded the following inf ormation about you: Temperature Weight Height 97.9 degrees 54.4 kg 1.676 m Jose Lanier MD 02/15/2020 9:02 PM Signed [facility] [place] Interval Evaluation Form CHIEF COMPLAINT: Spine pain Interval HPI February 12, 2020 Patinet returns for f/u rega ridng above complaints, here for medication refill. Patient states she takes [place] which all ows her to function and [...] [facility] showed evidence of right-sided 6-7 rib fractures along with a compression fracture of the T5 vertebrae. Patient was admitted for pain control, neurosurgical/spine consult, and medical monitoring/treatment of her respiratory st atus. Patient was evaluated by the neurosurgery team who recommend ed non-surgical management of the T5 fracture. 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 60 tablet [...] OBSOLETE on 01-31-2020 OBSOLETE Refill (SPAGWO) Normal [facility] DALIA DREW ([id number]) 1955 F Medical Date Time Provider Department [...] CNPN on 01-13-2020 CNPN Telephone (AGSPINE3) Normal [place] DALIA Mitchell ([id number]) 1955 F Medical Date Time Provider Department [...] on 12-18-2019 CNOV Office Visit (SPAGWO) Normal [facility] DALIA DREW ([id number]) 1955 F Medical Date Time Provider Department Center 12/18/19 9:30 AM JOSE LANIER SPAGWO During your visit today, we recorded the following inf ormation about you: Temperature Weight Height Basic Panel on 08-30-2018 Creatinine [Mass/Vol] 0.44 mg/dL Low 0.51-0.95 [facility] Comment on above: Performed By: #### GFR #### [address] [address] Anion gap [Moles/Vol] 10 mmol/L Normal 8-16 [facility] Comment on above: Performed By: #### GFR #### [address] [address] Calcium [Mass/Vol] 9.0 mg/dL Normal 8.5-10.1 [facility] Comment on above: Performed By: #### GFR #### [address] [address] CO2 [Moles/Vol] 28 mmol/L Normal 21-32 [facility] Comment on above: Performed By: #### GFR #### [address] [address] Glucose [Mass/Vol] 92 mg/dL Normal 70-99 [facility] Comment on above: Performed By: #### GFR #### [address] [address] Urea nitrogen [Mass/Vol] 16 mg/dL Normal 7-18 [facility] Comment on above: Performed By: #### GFR #### [facility] [address] [place] [address] Chloride [Moles/Vol] 101 mmol/L Normal 98-107 [facility] Comment on above: Performed By: #### GFR #### [facility] [address] [place] [address] Potassium [Moles/Vol] 4.1 mmol/L Normal 3.5-5.1 [facility] Comment on above: Performed By: #### GFR #### [facility] [address] [place] [address] Sodium [Moles/Vol] 135 mmol/L Low 136-145 [facility] Comment on above: Performed By: #### GFR #### [place] [address] Hemogram on 08-30-2018 Erythrocyte distribution width 12.8 % Normal 11.7-14.4 [facility] (RBC) [Ratio] Comment on above: Performed By: #### GFR #### [place] [address] Hematocrit (Bld) [Volume 38.2 % Normal 34.1-44.9 [facility] fraction] Comment on above: Performed By: #### GFR #### [place] [address] Hemoglobin (Bld) [Mass/Vol] 12.9 g/dL Normal 11.2-15.7 [facility] Comment on above: Performed By: #### GFR #### [facility] [address] [place] [address] MCH (RBC) [Entitic mass] 32.4 pg High 25.6-32.2 [facility] Comment on above: Performed By: #### GFR #### [place] [address] MCHC (RBC) [Mass/Vol] 33.8 % Normal 31.6-34.8 [facility] Comment on above: Performed By: #### GFR #### [facility] [address] [place], [place] [address] MCV (RBC) [Entitic vol] 96.0 fL High 79.4-94.8 [facility] Comment on above: Performed By: #### GFR #### [facility] [address] [place] [address] Platelet mean volume (Bld) [Entitic 9.3 fL Low 9.4-1 2.3 [facility] vol] Comment on above: Performed By: #### GFR #### [facility] [address] [place] [address] Platelets (Bld) [#/Vol] 377 thou/cmm High 182-369 [facility] Comment on above: Performed By: #### GFR #### [facility] [address] [place] [address] RBC (Bld) [#/Vol] 3.98 mil/cmm Normal 3.93-5.22 [facility] Comment on above: Performed By: #### GFR #### [facility] [address] [place] [address] RDW SD 45.3 fl Normal 36.4-46.3 [facility] Comment on above: Performed By: #### GFR #### [facility] [address] [place] [address] WBC (Bld) [#/Vol] 5.85 thou/cmm Normal 3.98-10.04 [facility] Comment on above: Performed By: #### GFR #### [facility] [address] [place] [address] MDRD GFR on 08-30-2018 GFR/1.73 sq M predicted mL/min/{1.73_m2} Normal >60mL/min/1.7 3m2 [facility] among non-blacks MDRD System (S/P/Bld) [Vol rate/Area] Comment on above: Result Comment: If the patie nt is , multiply the result by 1.210. Performed By: #### GFR #### [facility] [address] [place] [address] Basic Panel on 08-29-2018 Creatinine [Mass/Vol] 0.50 mg/dL Low 0.51-0.95 [facility] Comment on above: Performed By: #### GFR #### [facility] [address] [place] [address] Anion gap [Moles/Vol] 8 mmol/L Normal 8-16 [facility] Comment on above: Performed By: #### GFR #### [facility] [address] [place], [place] [address] CO2 [Moles/Vol] 28 mmol/L Normal 21-32 [facility] Comment on above: Performed By: #### GFR #### [facility] [address] [place] [address] Urea nitrogen [Mass/Vol] 13 mg/dL Normal 7-18 [facility] Comment on above: Performed By: #### GFR #### [facility] [address] [place] [address] Calcium [Mass/Vol] 8.4 mg/dL Low 8.5-10.1 [facility] Comment on above: Performed By: #### GFR #### [facility] [address] [place] [address] Glucose [Mass/Vol] 90 mg/dL Normal 70-99 [facility] Comment on above: Performed By: #### GFR #### [facility] [address] [place] [address] Chloride [Moles/Vol] 101 mmol/L Normal 98-107 [facility] Comment on above: Performed By: #### GFR #### [facility] [address] [place] [address] Potassium [Moles/Vol] 4.1 mmol/L Normal 3.5-5.1 [facility] Comment on above: Performed By: #### GFR #### [facility] [address] [place] [address] Sodium [Moles/Vol] 133 mmol/L Low 136-145 [facility] Comment on above: Performed By: #### GFR #### [facility] [address] [place] [address] Hemogram on 08-29-2018 Erythrocyte distribution width 12.6 % Normal 11.7-14.4 [facility] (RBC) [Ratio] Comment on above: Performed By: #### GFR #### [facility] [address] [place] [address] Hematocrit (Bld) [Volume 36.5 % Normal 34.1-44.9 [facility] fraction] Comment on above: Performed By: #### GFR #### [facility] [address] [place] [address] Hemoglobin (Bld) [Mass/Vol] 12.3 g/dL Normal 11.2-15.7 [facility] Comment on above: Performed By: #### GFR #### [place] [address] MCH (RBC) [Entitic mass] 32.2 pg Normal 25.6-32.2 [facility] Comment on above: Performed By: #### GFR #### [place] [address] MCHC (RBC) [Mass/Vol] 33.7 % Normal 31.6-34.8 [facility] Comment on above: Performed By: #### GFR #### [place] [address] MCV (RBC) [Entitic vol] 95.5 fL High 79.4-94.8 [facility] Comment on above: Performed By: #### GFR #### [place] [address] Platelet mean volume (Bld) 9.5 fL Normal 9.4-12.3 [facility] [Entitic vol] Comment on above: Performed By: #### GFR #### [place] [address] Platelets (Bld) [#/Vol] 346 thou/cmm Normal 182-369 [facility] Comment on above: Performed By: #### GFR #### [place] [address] RBC (Bld) [#/Vol] 3.82 mil/cmm Low 3.93-5.22 [facility] Comment on above: Performed By: #### GFR #### [facility] [address] [place] [address] RDW SD 44.1 fl Normal 36.4-46.3 [facility] Comment on above: Performed By: #### GFR #### [facility] [address] [place] [address] WBC (Bld) [#/Vol] 5.69 thou/cmm Normal 3.98-10.04 [facility] Comment on above: Performed By: #### GFR #### [place] [address] Basic Panel on 08-28-2018 Creatinine [Mass/Vol] 0.65 mg/dL Normal 0.51-0.95 [facility] Comment on above: Performed By: #### P8 #### [facility] [address] [place] [address] Anion gap [Moles/Vol] 10 mmol/L Normal 8-16 [facility] Comment on above: Performed By: #### P8 #### [place] [address] CO2 [Moles/Vol] 26 mmol/L Normal 21-32 [facility] Comment on above: Performed By: #### P8 #### [place] [address] Urea nitrogen [Mass/Vol] 28 mg/dL High 7-18 [facility] Comment on above: Performed By: #### P8 #### [facility] [address] [place] [address] Calcium [Mass/Vol] 8.6 mg/dL Normal 8.5-10.1 [facility] Comment on above: Performed By: #### P8 #### [facility] [address] [place] [address] Glucose [Mass/Vol] 89 mg/dL Normal 70-99 [facility] Comment on above: Performed By: #### P8 #### [facility] [address] [place] [address] Chloride [Moles/Vol] 103 mmol/L Normal 98-107 [facility] Comment on above: Performed By: #### P8 #### [facility] [address] [place] [address] Potassium [Moles/Vol] 4.0 mmol/L Normal 3.5-5.1 [facility] Comment on above: Performed By: #### P8 #### [facility] [address] [place] [address] Sodium [Moles/Vol] 135 mmol/L Low 136-145 [facility] Comment on above: Performed By: #### P8 #### [facility] [address] [place] [address] Hemogram on 08-28-2018 Erythrocyte distribution width 13.0 % Normal 11.7-14.4 [facility] (RBC) [Ratio] Comment on above: Performed By: #### P8 #### [facility] [address] [place] [address] Hematocrit (Bld) [Volume 34.9 % Normal 34.1-44.9 [facility] fraction] Comment on above: Performed By: #### P8 #### [facility] [address] [place] [address] Hemoglobin (Bld) [Mass/Vol] 11.8 g/dL Normal 11.2-15.7 [facility] Comment on above: Performed By: #### P8 #### [facility] [address] [place] [address] MCH (RBC) [Entitic mass] 32.5 pg High 25.6-32.2 [facility] Comment on above: Performed By: #### P8 #### [facility] [address] [place] [address] MCHC (RBC) [Mass/Vol] 33.8 % Normal 31.6-34.8 [facility] Comment on above: Performed By: #### P8 #### [facility] [address] [place] [address] MCV (RBC) [Entitic vol] 96.1 fL High 79.4-94.8 [facility] Comment on above: Performed By: #### P8 #### [facility] [address] [place] [address] Platelet mean volume (Bld) 9.7 fL Normal 9.4-12.3 [facility] [Entitic vol] Comment on above: Performed By: #### P8 #### [facility] [address] [place], [place] [address] Platelets (Bld) [#/Vol] 357 thou/cmm Normal 182-369 [facility] Comment on above: Performed By: #### P8 #### [facility] [address] [place] [address] RBC (Bld) [#/Vol] 3.63 mil/cmm Low 3.93-5.22 [facility] Comment on above: Performed By: #### P8 #### [facility] [address] [place] [address] RDW SD 46.2 fl Normal 36.4-46.3 [facility] Comment on above: Performed By: #### P8 #### [facility] [address] [place], [place] [address] WBC (Bld) [#/Vol] 6.36 thou/cmm Normal 3.98-10.04 [facility] Comment on above: Performed By: #### P8 #### [place] [address] Legionella Ag, Urine on 08-28-2018 Legionella Ag, Urine Test performed at [facility] Presumptive negative for L. pneumophilia serogroup [...] on above: Performed By: #### GFR #### [facility] [address] [place] [address] Strep pneumoniae Ag on 08-28-2018 Strep pneumoniae Ag Test performed at [facility] Negative for Streptococcus pneumoniae antigen. System Presumptive negative for pneumococcal pneumonia, sugge sting no current or recent pneumococcal infection. Infection due to S. pneumoniae cannot be ruled out since the antigen present in the sample may be below the detection limit of the test. Comment on above: Performed By: #### GFR #### [facility] [address] [place], [place] [address] Total 25-OH Vitamin D on 08-28-2018 Total 25-OH Vitamin D 15.7 ng/mL Low 30.0-100.0 [facility] Comment on above: Performed By: #### GFR #### [facility] [address] [place], [place] [address] Basic Panel on 08-27-2018 Creatinine [Mass/Vol] 0.56 mg/dL Normal 0.51-0.95 [facility] Comment on above: Performed By: #### P8 #### [address] [address] Glucose [Mass/Vol] 92 mg/dL Normal 70-99 [facility] Comment on above: Performed By: #### P8 #### [address] [address] Urea nitrogen [Mass/Vol] 27 mg/dL High 7-18 [facility] Comment on above: Performed By: #### P8 #### [facility] [address] [place], [place] [address] Anion gap [Moles/Vol] 12 mmol/L Normal 8-16 [facility] Comment on above: Performed By: #### P8 #### [address] [address] Calcium [Mass/Vol] 8.7 mg/dL Normal 8.5-10.1 [facility] Comment on above: Performed By: #### P8 #### [facility] [address] [place], [place] [address] CO2 [Moles/Vol] 25 mmol/L Normal 21-32 [facility] Comment on above: Performed By: #### P8 #### [address] [address] Chloride [Moles/Vol] 102 mmol/L Normal 98-107 [facility] Comment on above: Performed By: #### P8 #### [facility] [address] [place] [address] Potassium [Moles/Vol] 4.0 mmol/L Normal 3.5-5.1 [facility] Comment on above: Performed By: #### P8 #### [facility] [address] [place] [address] Sodium [Moles/Vol] 135 mmol/L Low 136-145 [facility] Comment on above: Performed By: #### P8 #### [facility] [address] [place] [address] Blood Gas Arterial on 08-27-2018 Base Excess -1.3 mmol/L Normal -3.0-3.0 [facility] Comment on above: Performed By: #### P8 #### [facility] [address] [place] [address] FIO2 Value Not Given Normal [facility] Comment on above: Performed By: #### P8 #### [facility] [address] [place] [address] HCO3 (Bld) [Moles/Vol] 23.8 mmol/L Normal 21.0-28.0 [facility] Comment on above: Performed By: #### P8 #### [facility] [address] [place] [address] O2% Sat Arterial 91.4 % Low 96.0-100.0 [facility] Comment on above: Performed By: #### P8 #### [facility] [address] [place] [address] PCO2 Arterial 42.6 mm Hg Normal 35.0-45.0 [facility] Comment on above: Performed By: #### P8 #### [facility] [address] [place] [address] pH Arterial 7.363 Normal 7.350-7.450 [facility] Comment on above: Performed By: #### P8 #### [facility] [address] [place] [address] PO2 Arterial 64.6 mm Hg Low 83.0-108.0 [facility] Comment on above: Performed By: #### P8 #### [place] [address] Cult and Smr Respiratory on 08-27-2018 Cult and Smr Respiratory Test performed at [facility] nter Normal [facility] Normal oropharyngeal mercy present. System Few Gram positive cocci in pairs Rare Mixed mercy Many Polymorphonuclear leukocytes Few Mononuclear cells Few Squamous epithelial cells Comment on above: Performed By: #### P8 #### [place] [address] Hemogram on 08-27-2018 Erythrocyte distribution width 13.0 % Normal 11.7-14.4 [facility] (RBC) [Ratio] Comment on above: Performed By: #### CBC1 #### [place] [address] Hematocrit (Bld) [Volume 38.6 % Normal 34.1-44.9 [facility] fraction] Comment on above: Performed By: #### CBC1 #### [place] [address] Hemoglobin (Bld) [Mass/Vol] 13.0 g/dL Normal 11.2-15.7 [facility] Comment on above: Performed By: #### CBC1 #### [place] [address] MCH (RBC) [Entitic mass] 32.5 pg High 25.6-32.2 [facility] Comment on above: Performed By: #### CBC1 #### [place] [address] MCHC (RBC) [Mass/Vol] 33.7 % Normal 31.6-34.8 [facility] Comment on above: Performed By: #### CBC1 #### [place] [address] MCV (RBC) [Entitic vol] 96.5 fL High 79.4-94.8 [facility] Comment on above: Performed By: #### CBC1 #### [place] [address] Platelet mean volume (Bld) 9.6 fL Normal 9.4-12.3 [facility] [Entitic vol] Comment on above: Performed By: #### CBC1 #### [facility] [address] [place], [place] [address] Platelets (Bld) [#/Vol] 356 thou/cmm Normal 182-369 [facility] Comment on above: Performed By: #### CBC1 #### [facility] [address] [place] [address] RBC (Bld) [#/Vol] 4.00 mil/cmm Normal 3.93-5.22 [facility] Comment on above: Performed By: #### CBC1 #### [facility] [address] [place] [address] RDW SD 46.7 fl High 36.4-46.3 [facility] Comment on above: Performed By: #### CBC1 #### [facility] [address] [place] [address] WBC (Bld) [#/Vol] 8.84 thou/cmm Normal 3.98-10.04 [facility] Comment on above: Performed By: #### CBC1 #### [facility] [address] [place] [address] Ionized Calcium on 08-27-2018 Ionized Ca,PH7.4 4.49 mg/dL Low 4.61-5.17 [facility] Comment on above: Performed By: #### P8 #### [facility] [address] [place] [address] pH (Bld) 7.358 [pH] Normal 7.320-7.430 [facility] Comment on above: Performed By: #### P8 #### [facility] [address] [place] [address] Ionized Calcium 4.59 mg/dL Low 4.61-5.17 [facility] Comment on above: Performed By: #### P8 #### [facility] [address] [place], [place] [address] LD,Total Blood on 08-27-2018 LD,Total Blood 153 U/L Normal 84-246 [facility] Comment on above: Performed By: #### P8 #### [facility] [address] [place] [address] MRSA Screen on 08-27-2018 MRSA DNA DEVAN+probe Ql Test performed at [facility] r Normal [facility] (Unsp spec) No MRSA detected. System Comment on above: Performed By: #### GFR #### [facility] [address] [place] [address] Magnesium Blood on 08-27-2018 Magnesium [Mass/Vol] 1.9 mg/dL Normal 1.6-2.6 [facility] Comment on above: Performed By: #### P8 #### [facility] [address] [place] [address] Phosphorus Blood on 08-27-2018 Phosphate [Mass/Vol] 5.3 mg/dL High 2.5-4.9 [facility] Comment on above: Performed By: #### P8 #### [facility] [address] [place] [address] Prealbumin on 08-27-2018 Prealbumin [Mass/Vol] 14.1 mg/dL Low 20.0-40.0 [facility] Comment on above: Performed By: #### P8 #### [facility] [address] [place] [address] Total Protein on 08-27-2018 Protein [Mass/Vol] 6.1 g/dL Low 6.4-8.2 [facility] Comment on above: Performed By: #### P8 #### [facility] [address] [place] [address] Activated PTT on 08-26-2018 aPTT Coag (Bld) [Time] 25.1 s Normal 23.0-32.4 [facility] Comment on above: Result Comment: Unfractionat ed [...] AP TT reagent in use throughout the [facility]. Performed By: #### APTT #### [facility] [address] [place], [place] [address] Ammonia on 08-26-2018 Ammonia (P) [Mass/Vol] 38 umol/L Critically high 11-32 [facility] Comment on above: Performed By: #### ANDI ### # [facility] [address] [place], [place] [address] Basic Panel on 08-26-2018 Creatinine [Mass/Vol] 0.63 mg/dL Normal 0.51-0.95 [facility] Comment on above: Performed By: #### P8 #### [facility] [address] [place], [place] [address] Urea nitrogen [Mass/Vol] 26 mg/dL High 7-18 [facility] Comment on above: Performed By: #### P8 #### [facility] [address] [place], [place] [address] Anion gap [Moles/Vol] 9 mmol/L Normal 8-16 [facility] Comment on above: Performed By: #### P8 #### [facility] [address] [place], [place] [address] Calcium [Mass/Vol] 8.6 mg/dL Normal 8.5-10.1 [facility] Comment on above: Performed By: #### P8 #### [facility] [address] [place], [place] [address] CO2 [Moles/Vol] 25 mmol/L Normal 21-32 [facility] Comment on above: Performed By: #### P8 #### [facility] [address] [place], [place] [address] Glucose [Mass/Vol] 97 mg/dL Normal 70-99 [facility] Comment on above: Performed By: #### P8 #### [facility] [address] [place], [place] [address] Chloride [Moles/Vol] 103 mmol/L Normal 98-107 [facility] Comment on above: Performed By: #### P8 #### [facility] [address] [place] [address] Potassium [Moles/Vol] 3.7 mmol/L Normal 3.5-5.1 [facility] Comment on above: Performed By: #### P8 #### [facility] [address] [place] [address] Sodium [Moles/Vol] 133 mmol/L Low 136-145 [facility] Comment on above: Performed By: #### P8 #### [facility] [address] [place] [address] Hemogram on 08-26-2018 Erythrocyte distribution width 12.9 % Normal 11.7-14.4 [facility] (RBC) [Ratio] Comment on above: Performed By: #### CBC1 #### [facility] [address] [place] [address] Hematocrit (Bld) [Volume 35.8 % Normal 34.1-44.9 [facility] fraction] Comment on above: Performed By: #### CBC1 #### [facility] [address] [place] [address] Hemoglobin (Bld) [Mass/Vol] 11.9 g/dL Normal 11.2-15.7 [facility] Comment on above: Performed By: #### CBC1 #### [facility] [address] [place] [address] MCH (RBC) [Entitic mass] 32.4 pg High 25.6-32.2 [facility] Comment on above: Performed By: #### CBC1 #### [facility] [address] [place] [address] MCHC (RBC) [Mass/Vol] 33.2 % Normal 31.6-34.8 [facility] Comment on above: Performed By: #### CBC1 #### [facility] [address] [place] [address] MCV (RBC) [Entitic vol] 97.5 fL High 79.4-94.8 [facility] Comment on above: Performed By: #### CBC1 #### [facility] [address] [place] [id number] Platelet mean volume (Bld) 9.5 fL Normal 9.4-12.3 [facility] [Entitic vol] Comment on above: Performed By: #### CBC1 #### [facility] [address] [place] [id number] Platelets (Bld) [#/Vol] 297 thou/cmm Normal 182-369 [facility] Comment on above: Performed By: #### CBC1 #### [facility] [address] [place] [id number] RBC (Bld) [#/Vol] 3.67 mil/cmm Low 3.93-5.22 [facility] Comment on above: Performed By: #### CBC1 #### [facility] [address] [place] [address] RDW SD 46.5 fl High 36.4-46.3 [facility] Comment on above: Performed By: #### CBC1 #### [facility] [address] [place] [id number] WBC (Bld) [#/Vol] 6.27 thou/cmm Normal 3.98-10.04 [facility] Comment on above: Performed By: #### CBC1 #### [facility] [address] [place] [id number] Protime on 08-26-2018 INR Coag (PPP) [Relative time] 1.04 {INR} Normal 0.90-1.30 [facility] Comment on above: Result Comment: Vitamin K An tagonist (VKA) Therapeutic Range: INR 2 to 3 (Target INR of 2.5) Note: For patients treated w ith VKA drugs, such as warfarin, the [employer] 2012 Guideline [...] INR o f 3) Note: Patients with monotype mechanic al aortic valve replacement and additional risk factors for thromboembolic events (atrial fibrillation, previous throm boembolism, LV dysfunction, hypercoagulable conditions) or an older generation mechanical AVR (i.e., ball in-Cage) or any mechanical MVR should have a INR therapeutic range of 2 .5 to 3.5 target INR of 3). Mariana MARIA, et al. Chest 2012 ; 141:7S-47S Sravani NOLEN et al. [facility] 20 ; 70: 252-289 Performed By: #### PT #### [facility] [address] [place], [place] [address] PT Coag (PPP) [Time] 10.8 s Normal 9.7-13.0 [facility] Comment on above: Performed By: #### PT #### [address] [address] Basic Panel on 08-25-2018 Creatinine [Mass/Vol] 0.43 mg/dL Low 0.51-0.95 [facility] Comment on above: Performed By: #### P8 #### [address] [address] Urea nitrogen [Mass/Vol] 15 mg/dL Normal 7-18 [facility] Comment on above: Performed By: #### P8 #### [facility] [address] [place], [place] [address] Anion gap [Moles/Vol] 13 mmol/L Normal 8-16 [facility] Comment on above: Performed By: #### P8 #### [address] [address] Calcium [Mass/Vol] 8.7 mg/dL Normal 8.5-10.1 [facility] Comment on above: Performed By: #### P8 #### [facility] [address] [place], [place] [address] CO2 [Moles/Vol] 23 mmol/L Normal 21-32 [facility] Comment on above: Performed By: #### P8 #### [facility] [address] [place], [place] [address] Chloride [Moles/Vol] 100 mmol/L Normal 98-107 [facility] Comment on above: Performed By: #### P8 #### [facility] [address] [place] [address] Glucose [Mass/Vol] 135 mg/dL High 70-99 [facility] Comment on above: Performed By: #### P8 #### [facility] [address] [place], [place] [address] Potassium [Moles/Vol] 3.6 mmol/L Normal 3.5-5.1 [facility] Comment on above: Performed By: #### P8 #### [facility] [address] [place] [address] Sodium [Moles/Vol] 132 mmol/L Low 136-145 [facility] Comment on above: Performed By: #### P8 #### [facility] [address] [place] [address] Hemogram on 08-25-2018 Erythrocyte distribution width 12.7 % Normal 11.7-14.4 [facility] (RBC) [Ratio] Comment on above: Performed By: #### CBC1 #### [facility] [address] [place] [address] Hematocrit (Bld) [Volume 39.7 % Normal 34.1-44.9 [facility] fraction] Comment on above: Performed By: #### CBC1 #### [facility] [address] [place] [address] Hemoglobin (Bld) [Mass/Vol] 13.6 g/dL Normal 11.2-15.7 [facility] Comment on above: Performed By: #### CBC1 #### [facility] [address] [place] [address] MCH (RBC) [Entitic mass] 32.7 pg High 25.6-32.2 [facility] Comment on above: Performed By: #### CBC1 #### [facility] [address] [place] [address] MCHC (RBC) [Mass/Vol] 34.3 % Normal 31.6-34.8 [facility] Comment on above: Performed By: #### CBC1 #### [facility] [address] [place] [address] MCV (RBC) [Entitic vol] 95.4 fL High 79.4-94.8 [facility] Comment on above: Performed By: #### CBC1 #### [facility] [address] [place] [address] Platelet mean volume (Bld) 9.6 fL Normal 9.4-12.3 [facility] [Entitic vol] Comment on above: Performed By: #### CBC1 #### [facility] [address] [place] [address] Platelets (Bld) [#/Vol] 366 thou/cmm Normal 182-369 [facility] Comment on above: Performed By: #### CBC1 #### [facility] [address] [place] [address] RBC (Bld) [#/Vol] 4.16 mil/cmm Normal 3.93-5.22 [facility] Comment on above: Performed By: #### CBC1 #### [facility] [address] [place] [address] RDW SD 43.9 fl Normal 36.4-46.3 [facility] Comment on above: Performed By: #### CBC1 #### [facility] [address] [place] [address] WBC (Bld) [#/Vol] 8.90 thou/cmm Normal 3.98-10.04 [facility] Comment on above: Performed By: #### CBC1 #### [facility] [address] [place] [id number] Vital Signs Date Time Vital Sign Value Performing Facility Clinician 12-13-2021 Diastolic blood 88 mm[Hg] Selwyn Mejias MD [facility] 10: pressure Work Phone: 12-13-2021 Systolic blood 122 mm[Hg] Selwyn Mejias MD [facility] 10:40 pressure Work Phone: 12-13-2021 Body weight 48.53 kg Selwyn Mejias MD [facility] 10: Work Phone: 12-13-2021 Heart rate 97 /min Selwyn Mejias MD [facility] 10: Work Phone: 12-13-2021 SaO2% (BldA) [Mass 91 % Selwyn Mejias MD [facility] 10:040 fraction] Work Phone: 08-19-2021 Body height 161.3 cm Lacy Manzanares PHOTOENGRAVING SUPERVISOR.[facility] [id number] Work Phone: 08-19-2021 Body weight 51.71 kg Lacy Manzanares PHOTOENGRAVING SUPERVISOR.[facility] [id number] Work Phone: 08-19-2021 Diastolic blood 88 mm[Hg] Lacy Manzanares PHOTOENGRAVING SUPERVISOR.[facility] [id number] pressure Work Phone: 08-19-2021 Heart rate 93 /min Lacy Manzanares PHOTOENGRAVING SUPERVISOR.[facility] [id number] Work Phone: 08-19-2021 Respiratory rate 16 /min Lacy Manzanares PHOTOENGRAVING SUPERVISOR.[facility] [id number] Work Phone: 08-19-2021 SaO2% (BldA) [Mass 94 % Lacy Manzanares PHOTOENGRAVING SUPERVISOR.[facility] [id number] fraction] Work Phone: 08-19-2021 Systolic blood 132 mm[Hg] Lacy Manzanares PHOTOENGRAVING SUPERVISOR.[employer]ENDER OPERATOR HELPER [facility] [id number] pressure Work Phone: 08-27-2018 Body temperature 36.4 Deg Raya [facility] 19:0400 Health System Comment on above: Performed By: #### P8 #### [address] [address] Encounters Encounter Date Encounter Type Care Provider Facility Start: 03-23-2022 ambulatory ERIN DILLARD Facility:[facility] Start: 01-30-2022 Telephone encounter Selwyn Mejias MD [employer] Work Phone: Comment on above: [phone]; Initial Consult Start: 01-27-2022 Telephone encounter Selwyn Mejias MD Interna l Medicine Work Phone: [place] Comment on above: Medication Problem; Patient Update Start: 01-25-2022 Telephone encounter Selwyn Mejias MD Interna l Medicine Work Phone: [place] Comment on above: [facility] (Verbal order/med lis t/palliative care order) [...] of lung Start: 12-13-2021 ambulatory SELWYN MEJIAS Facility:[facility] End: 12-13-2021 Hospital Start: 12-13-2021 Office outpatient Selwyn Mejias MD Internal Medicine [place] End: 12-13-2021 visit 25 minutes Work Phone: Comment on above: Essential hypertension (Prim roberta Dx); Lung mass; PAD (peripheral artery disea se) ([facility]); Compression fracture of T5 v ertebra, sequela; Tobacco use disorder; Gastroesophageal reflux dise ase without esophagitis; COPD, severe ([facility] [facility] Cough; Cervical spondylosis without myelopathy; Lumbosacral spondylosis with out myelopathy; Compression fracture of T5 v ertebra with routine healing, subsequent encounter; Closed fracture of multiple ribs of right side with routine healing; Chronic respiratory failure with hypoxia ([facility]); Protein-calorie malnutrition , unspecified severity ([facility]) Start: 12-05-2021 Telephone encounter Selwyn Mejias MD [...] Start: 11-02-2021 ambulatory Selwyn Mejias MD Internal Pr dicine Main Work Phone: [place] Start: 09-28-2021 ambulatory Selwyn Mejias MD Internal Pr dicine [place] Work Phone: Comment on above: Chest Pain; Shortness of Thalia ath Start: 09-01-2021 Telephone encounter Lacy Manzanares PHOTOENGRAVING SUPERVISOR.CALENDER OPERATOR HELPER Inte rnal Medicine Work Phone: [place] Comment on above: Results, Lab Start: 08-31-2021 [facility] Facility:[facility] End: 08-31-2021 Hospital Start: 08-23-2021 Telephone encounter Jorge Lonnie MOTION AND TIME STUDY TEACHER Navigat ion Comment on above: Social Work Services Start: 08-19-2021 [facility] Facility:[facility] End: 08-20-2021 Hospital Start: 08-19-2021 Patient encounter Lacyfatoumata Manzanares PHOTOENGRAVING SUPERVISOR.CALENDER OPERATOR HELPER Set Rider al Medicine [place] End: 08-19-2021 procedure Work Phone: Comment on above: COPD, severe (HCC) (Primary Dx); Encounter for screening for lung cancer; Need for shingles vaccine; Encounter for immunization; Chronic bronchitis, unspecif ied chronic bronchitis type ([facility]); Tobacco use disorder; Hypoxia; Gastroesophageal reflux dise ase without esophagitis; PAD (peripheral artery disea se) ([facility]); Gastroesophageal reflux dise ase without esophagitis; Compression [...] profile DTAP,TDAP,TD (3 - T d or [facility] Tdap) Start: 08-31-2026 LIPID SCREEN LIPID SCREEN [facility] Start: 08-31-2024 DIABETES SCREEN DIABETES SCREEN [facility] Start: 12-13-2022 ANNUAL PCP TEAM CHRONIC ANNUAL PCP TEAM [facility] DISEASE VISIT DISEASE VISIT Start: 03-16-2022 LIPID SCREEN LIPID SCREEN [facility] Start: 12-13-2021 ANNUAL [facility] Start: 11-24-2021 Influenza vaccination [facility] Start: 11-22-2021 ANNUAL PCP TEAM CHRONIC ANNUAL PCP TEAM [facility] DISEASE VISIT DISEASE VISIT Start: 11-22-2021 COLORECTAL CANCER COLORECTAL CANCER [facility] SCREENING SCREENING Comment on above: Postponed from 1998 (D eclined at this time) Start: 11-11-2021 PNEUMOCOCCAL: 65+ (2 - PNEUMOCOCCAL: 65+ (2 - [facility] PCV) PCV) Comment on above: Postponed from 01/10/2013 (D eclined at this time) Start: 11-11-2021 PNEUMOVAX AGE 65 AND OVER PNEUMOVAX AGE 65 AND OVER [facility] WITH 5YR LOOKBACK (#1) WITH 5YR LOOKBACK (#1) Comment on above: Postponed from 2018 (D eclined at this time) Start: 08-30-2021 DIABETES SCREEN DIABETES SCREEN [facility] ic Start: 08-23-2021 CBC W Auto CBC + DIFF Lab Routine [facility] End: 08-04-2022 Differential panel - Chronic bronchitis, Work Ph one: Blood unspecified chronic bronchitis type (HCC) Tobacco use disorder Gastroesophageal reflux disease without esophagitis Gastroesophageal reflux disease without esophagitis Expected: 08/23/2021 (Approximate), Expires: 08/04/2022 Comment on above: Expected: 08/23/2021 (Approx imate), Expires: 08/04/2022 Start: 08-23-2021 Comprehensive COMP METABOLIC PANEL Lab [place] End: 08-04-2022 metabolic 2000 panel Routine Chronic Work Phone: - Serum or Plasma bronchitis, unspecified chronic bronchitis type (HCC) Tobacco use disorder Gastroesophageal reflux disease without esophagitis Gastroesophageal reflux disease without esophagitis Expected: 08/23/2021 (Approximate), Expires: 08/04/2022 Comment on above: Expected: 08/23/2021 (Approx imate), Expires: 08/04/2022 Start: 08-23-2021 Magnesium MAGNESIUM BLD Lab [facility] End: 08-04-2022 [Mass/volume] in Serum Routine Reactive Work Misty ne: or Plasma depression Generalized anxiety disorder Expected: 08/23/2021 (Approximate), Expires: 08/04/2022 Comment on above: Expected: 08/23/2021 (Approx imate), Expires: 08/04/2022 Start: 08-23-2021 Thyrotropin TSH BLD Lab Routine [facility] End: 08-04-2022 [Units/volume] in Reactive depression Work Phone : Serum or Plasma Generalized anxiety disorder Expected: 08/23/2021 (Approximate), Expires: 08/04/2022 Comment on above: Expected: 08/23/2021 (Approx imate), Expires: 08/04/2022 Start: 08-23-2021 VITAMIN B12 BLOOD VITAMIN B12 BLOOD Lab [facility] End: 08-04-2022 Routine Reactive Work Phone: depression Generalized anxiety disorder Expected: 08/23/2021 (Approximate), Expires: 08/04/2022 Comment on above: Expected: 08/23/2021 (Approx imate), Expires: 08/04/2022 Start: 03-26-2021 ADVANCE DIRECTIVE ADVANCE DIRECTIVE [facility] DISCUSSION DISCUSSION Start: 03-03-2021 COVID-19 VACCINE (2 - COVID-19 VACCINE (2 - Cl [facility] Booster for Mark Booster for Mark series) series) Start: 12-24-2020 BP CONTROLLED (<130/80) BP CONTROLLED (<130/80 ) [facility] Start: 09-15-2018 Colonoscopy COLONOSCOPY [facility] Start: 09-15-2018 COLORECTAL CANCER COLORECTAL CANCER [facility] SCREENING SCREENING Start: 2018 BONE DENSITY BONE DENSITY [facility] Start: 07-01-2014 Mammography MAMMOGRAM [facility] Start: 01-10-2013 PNEUMOCOCCAL: 65+ (2 - PNEUMOCOCCAL: 65+ (2 - [facility] PCV) PCV) Start: 08-14-2003 Influenza vaccination LUNG CANCER SCREENING [facility] Start: 08-14-2003 SHINGRIX VACCINE (1 of SHINGRIX VACCINE (1 of [facility] 2) 2) Start: 1998 COLOGUARD (FIT-DNA) COLOGUARD (FIT-DNA) [facility] Start: [address] COLONOGRAPHY [facility] Start: 1998 FECAL OCCULT BLOOD FECAL OCCULT BLOOD [facility] Start: 1998 SIGMOIDOSCOPY SIGMOIDOSCOPY [facility] Start: 08-14-1983 Zoledronic acid therapy ALPHA-1 ANTITRYPSIN [facility] DEFICIENCY SCREENING Screening mammography bi MALACHI SCREENING Radiology [facility] End: 12-02-2022 2-view breast inc cad Routine Encounter for Work Phone: screening mammogram for breast cancer 1 Occurrences starting 11/02/2021 until 12/02/2022 Comment on above: 1 Occurrences starting 11/02 until 12/02/[address] [facility] Immunizations Immunization Date Immunization Notes Care Provider Facility 08-24-2018 tetanus toxoid, reduced Selwyn Mejias MD [facility] diphtheria toxoid, and Work Phone: Work Phone: acellular pertussis vaccine, adsorbed 01-11-2012 pneumococcal Selwyn Mejias MD [facility] linic polysaccharide vaccine, Work Phone: 23 valent 01-11-2012 tetanus toxoid, reduced Selwyn Mejias MD [facility] diphtheria toxoid, and Work Phone: acellular pertussis vaccine, adsorbed Payers Date Payer Category Payer Unknown ANTHEM [employer]UE xxxxx [id number] SHIELD ANTHEM MEDIBLUE O [id number] [id number] 2019-Present [phone] [address] 2019 Unknown ANTHEM BLUE CROSS AND BLUE [id number] [id number] SH[facility]ELD [facility] [id number] 2019-Present [phone] [id number] [place] [address] 2019 Unknown [id number] 2018 Medicaid MEDICAID [facility] MEDICAID [id number] 2018-Present [id number] [address] [place] [address] Medicaid 2018 Medicaid MEDICAID [facility] MEDICAID [id number] 2018-Present [phone] [address] [place] [id number] Medicaid 2018 Medicaid [id number] Social History Date Type Detail Facility Start: 1965 Tobacco smoking status Smokes tobacco daily [facility] End: 12-13-2021 [facility] Start: 1967 History of tobacco use Cigarette Smoker [facility] Start: 12-13-2020 Alcohol intake Current drinker of [facility] End: 12-13-2021 alcohol (finding) Start: 12-18-2019 History SDOH Alcohol daily; hospital [facility] Comment records noted 6+beers daily but at Aug hospital follow up, was not drinking, occ. Start: 07-15-2019 Tobacco Comment No smoking in childhod [facility] End: 12-13-2021 home.-- Not smoking now given COVID 19 Start: 1955 Sex Assigned At Not on file [facility] Start: 08-08-2021 Exposure to SARS-CoV-2 Not sure [facility] End: 12-13-2021 (event) Start: 07-15-2019 Cigarettes smoked 1 [facility] in End: 12-13-2021 current (pack per day) - Reported Start: 07-15-2019 Tobacco use and Smokeless tobacco [facility] End: 12-13-2021 exposure non-user Work Phone: Clinical Notes 12-18-2019 to 02-07-2022 Telephone Encounter - Lacy Manzanares APRN.CNS - 02/07/2022 1:10 PM ESTTelephone Encounter - Kaylyn Wallace Ma - 01/27/2022 3:28 PM EDTTelephone Encounter - Brittany Magana LPN - 01/20/2022 4:50 PM EDT Note Date & Type Note Facility 02-07-2022 Miscellaneous Formatting of this note migh t be different from the original. [facility] Notes noted Formatting of this note might be differe nt from the original. Called Deisy, she states that patient has declined all care and kicked them out of her home and states she is not going to take any of her medications Formatting of this note might be differe nt from the original. 1-OK [facility] 2. [place] palliative care, had [facility] previously 11/2021. 3. Send med lis Formatting of this note might be differe nt from the original. Deisy with [facility] HH, nursing requesting the followin)verbal orders for half-way plan of care to see pt 1 time a week for 4 weeks. 2)pt was on hospice and revo ked orders and was admitted to [facility] for exacerbation of her COPD. D/C and they are requesting orders for palliative care. 3)requesting a copy of pt's current med list to be faxed to [phone]. (Deisy states pt has medications all over her house and the need to know what she is to be taking) Aida Nam LPN documented in this encounter 02-01-2022 Miscellaneous Formatting of this note migh t be different from the original. [facility] Notes Noted. Selwyn Mejias MD Formatting [...] be differe nt from the original. Alley [facility] Skilled Nurse rashad ramos in and [...] but she doesn't want to see the MOLD CHECKER she wants to see Dr Mejias. documented in this encounter 01-30-2022 Note HNO ID: [id number] [facility] Author: Cesar Rehman [facility] Service: ? Author Type: ? Type: Progress [...] initiative based on pharmacy claims data from [employer] (insurer) for EUN medication(s). Patient is reviewed [...] Cesar Rehman 01-30-2022 Note Patient Outreach (PHPOHE) [facility] DREWDALIA Robbins ([id number]) 1955 F Date Time Provider Department 01/30/22 DECLAN PUENTE During your visit today, we recorded the following information about you: Cesar Rehman 01/31/2022 10:03 AM Atteste yulissa Attestation signed by Declan Puente [facility] at 01/31/2022 10:03 AM The patient's case [...] initiative based on pharmacy claims data from [employer] (insurer) for EUN medication(s). Patient is reviewed [...] 1 tablet by mouth once daily. - tfjehiwmbhh-sbziurywa-tvmhpkme (TRELEG Y ELLIPTA) 100-62.5-25 mcg inhalation powder [...] note is d ifferent from the original. [facility] Notes Palliative Medicine at Home Referral [...] revoke d orders and was admitted to [facility] for exacerbation of her COPD. D/C and they are requesting orders for palliative care. Patient declined services from her [facility] t eam. Refusing to take medications. Razia English RN January 30, 2022 documented in this encounter 01-23-2022 Miscellaneous Formatting of this note migh t be different from the original. [facility] Notes Noted, agree Formatting of this note might be differe nt from the original. Michelle calling with PT POC. Will be seeing patient for [facility] and gain training, safe transfers and pain management. 1 time a for 1 week 2 times for 2 weeks 1 time for 1 week. documented in this encounter 01-23-2022 Miscellaneous Formatting of this note migh t be different from the original. [facility] Notes noted Formatting of this note might be differe nt from the original. Guillermina with [facility] OT calling to state patient has [...] migh t be different from the original. [facility] Notes Faxed Formatting of this note [...] this encounter 01-02-2022 Note Patient Outreach (AMBCMG) [facility] DALIA DREW ([id number]) 1955 F Date Time Provider Department 01/02/22 MARION GRAVES During your visit today, we recorded the following information about you: Marion Graves RN 01/02/2022 1:08 PM Si gned [facility] Enrollment Provider Action/I: h/o COPD I spoke with patient and she is in Palli ative Care/ Hospice She is not sure which one bu t believes she is in Hospice ([facility] [place]) Patient referred by: [facility] Marisol Contact made with patient: Yes - Patient identified by name and . Discussed care with patient Bernardo this is Marion Graves RN and I elizabeth m calling from Selwyn Mejias MD office at the [facility]. I am a R N Table Cover Folder with our [facility] Chronic Disease Management program. [...] few questions once a week through your [employer] (P) account. It will automatically show up for [...] Patient does not meet criteria. PCC to [facility] patient in a month. Allergies As of [...] 1 tablet by mouth once daily. - ehpgfdobhuw-nnwtczanu-dxhosbam (TRELEG Y ELLIPTA) 100-62.5-25 mcg inhalation powder [...] not include d)... 01-02-2022 Note HNO ID: [id number] [facility] Author: Marion Graves RN [facility] Service: ? Author Type: Registered Nurse Type: Progress Notes Filed: 01/02/2022 1:08 PM Note Text: [facility] CD[facility] Enrollment Provider Action/FYI: h/o COPD I spoke with patient and she is in Palli ative Care/ Hospice She is not sure which one but believes s he is in Hospice ([facility] [place]) Patient referred by: C Marisol Contact made with patient: Yes - Patient identified by name and . Discussed care with patient Bernardo this is Marion Graves RN and I a m calling from Selwyn Mejias MD office at the [facility]. I am a R N Table Cover Folder with our [facility] Chronic Disease Management progr [...] question s once a week through your [facility] account. It will automatically show up f [...] migh t be different from the original. [facility] Notes Nurse from [facility] was given pro viders message and verbalized [...] nt from the original. Donya Nurse from [facility] call ing was unable to do lung [...] in this encounter 12-14-2021 Note HNO ID: [id number] [facility] Author: Joaquim Rodarte RN [facility] Service: ? Author Type: Registered Nurse Type: Progress Notes Filed: 12/14/2021 2:43 PM Note Text: [facility] CD[facility] Enrollment Provider Action/FYI: 2nd Call to Pt, unable to leave a messag e related to [facility]ight / Chronic Disease Management program, will provide [facility] info once reached. Patient referred by: [facility] Marisol Contact made with patient: No - 2nd atte mpt to reach patient, left another message: Hi my name is Aster March RN and I am calling from the [facility] on behalf of your PCP, Selwyn [...] the patient after two at tempted outreaches. Table Cover Folder to retry patient in one week . END OUTREACH Aster March RN December 14, 2021 2:36 PM 12-14-2021 Note Patient Outreach (AMBCMG) [facility] DALIA DREW ([id number]) 1955 F Date Time Provider Department 12/14/21 JOAQUIM WEBER During your visit today, we recorded the following information about you: Aster March RN 12/14/2021 2:43 PM Signed [facility] Enrollment Provider Action/FYI: 2nd Call to Pt, unable to leave a messag e related to [facility]ight / Chronic Disease Management program, will provide [facility] info once reached. Patient referred by: [facility] Marisol Contact made with patient: No - 2nd atte mpt to reach patient, left another message: Hi my name is Aster March RN and I am calling from the [facility] on behalf of your PCP, Selwyn [...] reach the patient after two attempted outreaches. Table Cover Folder to retry patient in one week. END [...] t: Initial CDM Outreach/ [facility] Prescriptions as of 12/14/2021 - atorvastatin (LIPITOR) 10 mg tablet Take 1 tablet by mouth once daily. - citalopram (CELEXA) 20 mg tablet Take 1 tablet by mouth once daily. - akwgnfbvmyw-jfcxvojmv-xqcfoomw (TRELEG Y ELLIPTA) 100-62.5-25 mcg inhalation powder [...] n ot included)... 12-13-2021 Note HNO ID: [id number] [facility] Author: Selwyn Mejias MD [facility] Service: ? 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 Plans for lung biopsy d iscussed. Noted [...] Chronic obstructive pulmonary disease (C OPD) ([facility]) Dysphagia, unspecified(787.20) Emphysema lung ([facility]) Hypertension INSOMNIA, intermittent 12/17/2006 stress related Unspecified chronic bronchitis ([facility]) 11/25 Current Outpatient Medications Medication Sig atorvastatin [...] by mouth twice daily for 90 days. izxnpnhfvwc-xuxcvazxo-ceqxsrma (TRELEGY ELLIPTA) 100-62.5-25 mcg inhalation powder Inhale [...] content not included)... 12-13-2021 History of Present [facility] illness Narrative This note was created using [employer]. 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 Plans for lung biopsy discussed. Noted [...] Chronic obstructive pulmonary disease (C OPD) ([facility]) Dysphagia, unspecified(787.20) Emphysema lung ([facility]) Hypertension INSOMNIA, intermittent 12/17/2006 stress related Unspecified chronic bronchitis ([facility]) 11/25 Current Outpatient Medications Medication Sig atorvastatin [...] by mouth twice daily for 90 days. styssskofxs-qltombwml-gvgjfi er (TRELEGY ELLIPTA) 100-62.5-25 mcg inhalation powder [...] by mouth once daily. polyethylene glycol 3350 (MT RALAX, GLYCOLAX) 17 gram packet Take 1 [...] Abs Lymph 1.00 - 4.00 k/uL 1.25 Costilla% % 13.3 Abs Costilla <0.87 k/uL 0.77 Eosin% % 3.1 Abs [...] tobacco. - Note plans to call for [facility] p-line that might be able to provide patches for nicotine replacement to help with smoking cessation 6. Gastroesophageal reflux d isease without esophagitis - ICD9: 530.81, ICD10: K21.9 - Continue treatment with: - OMEPRAZOLE 40 MG CAPSULE,DELAYED RELEA SE 7. COPD, severe (HCC) - ICD9: 496, ICD10 : J44.9 Continue follow up with high school biology teacher. O yeni cough med. - CODEINE 10 [...] Chronic resp\iratory failure with hy poxia--working with high school biology teacher. 14. Protein-calorie malntutr ition--working on getting more calories and protein in; noted that shortness of breath with eating limits her intake. Will try to get foods of lower volume with higher amount s of calories and protein. C ost an issue for supplements. Will consider working with SW as needed. Selwyn Mejias MD documented in this encounter 12-02-2021 Note HNO ID: [id number] [facility] Author: Joaquim Rodarte RN [facility] Service: ? Author Type: Registered Nurse Type: Progress Notes Filed: 12/02/2021 12:26 PM Note Text: [facility] Enrollment Provider Action/FYI: Call to Pt, unable to leave a message re lated to Insight / Chronic Disease Management program, will provide [facility] info once reached. Patient referred by: [facility] Marisol Contact made with patient: No - Unable t o leave message: (Keep encounter open and attempt 2nd outreach in two bus iness days from today). END OUTREACH Aster March RN December 02, 2021 12:23 PM 12-02-2021 Note Patient Outreach ([facility]) [facility] DALIA Morris ([id number]) 1955 F Date Time Provider Department 12/02/21 JOAQUIM WEBER During your visit today, we recorded the following information about you: Aster March RN 12/02/2021 12:26 PM Signed [facility] Enrollment Provider Action/FYI: Call to Pt, unable to leave a message re lated to Insight / Chronic Disease Management program, will provide [facility] at [facility] info once reached. Patient referred by: [facility] Marisol Contact made with patient: [...] t: Initial CDM Outreach/ [facility] Prescriptions as of 12/02/2021 - [...] mouth twice daily for 90 days. - soasptdqtkc-htnqadedr-eizhajnh (TRELEG Y ELLIPTA) 100-62.5-25 mcg inhalation powder [...] content not included)... 12-02-2021 History of Present [facility] illness Narrative [facility] CD[facility] Enrollment Provider Action/FYI: Call to Pt, unable to leave a message related to Insight / Chronic Disease Management program, will provide [facility] info once reached. Patient referred by: [facility] Marisol Contact made with patient: N o - Unable to leave message: (Keep encounter open and attempt 2nd outreach in two business days from today). END OUTREACH Aster March RN December 02, 2021 12:23 PM documented in this encounter 11-29-2021 Miscellaneous Formatting of this note migh t be different from the original. [facility] Notes Noted. Selwyn eMjias MD Formatting of this note might be differe nt from the original. Delmy [facility] called and is no tified of providers message and instructions. She voices understanding and was given Pts next appointment time of 12/13/21 at 940 am. She reports she will tell Pts [facility] to see if she can help get [...] voicemail, she can always get it from high school biology teacher if PCP does not want to do it. Virgen is f axing copy of POA for health care to the office also. She had given me grand daughter Mikala phone number is [phone]. She thinks patient is having memory issues and may not show for her appt with PCP, she did not think grand daughter k new of the appt. Formatting of this note might be differe nt from the original. Virgen from [facility] Ship [employer] calling asking if any paper work patient needs to take to Dr Bentley-Bellstand Attendant? Did not see anything in computer. Patient has appt scheduled today with Pulmonary office to update her H&P for biopsy ishaan ng mass. Hoping patient does keep that appt. Virgen works electronic parts salesperson and gave her pharmacy benefit manager, Delmy phone number is [phone] if needed. Aware patient had cancelled her appt mid October with Lacy Manzanares MOLD CHECKER. documented in this encounter 11-23-2021 Note HNO ID: [id number] [facility] Author: Joaquim Rodarte RN [facility] Service: ? Author Type: Registered Nurse Type: Progress Notes Filed: 12/02/2021 12:20 PM Note Text: [facility] CD[facility] Enrollment Provider Action/FYI: Call to Pt, unable to leave a message re lated to Insight / Chronic Disease Management program, will provide [facility] info once reached. Patient referred by: [facility] Marisol Contact made with patient: No - Unable t o leave message: (Keep encounter open and attempt 2nd outreach in two bus iness days from today). END OUTREACH Aster March RN November 23, 2021 2:04 PM 11-23-2021 History of Present [facility] illness Narrative [facility] CDM Enrollment Provider Action/FYI: Call to Pt, unable to leave a message related to Insight / Chronic Disease Management program, will provide [facility] info once reached. Patient referred by: [facility] Marisol Contact made with patient: N o - Unable to leave message: (Keep encounter open and attempt 2nd outreach in two business days from today). END OUTREACH Aster March RN November 23, 2021 2:04 PM documented in this encounter 11-23-2021 Note Patient Outreach (AMBCMG) [facility] DALIA DERW ([id number]) 1955 F Date Time Provider Department 11/23/21 JOAQUIM WEBER During your visit today, we recorded the following information about you: Aster March RN 12/02/2021 12:20 PM Signed [facility] CD[facility] Enrollment Provider Action/FYI: Call to Pt, unable to leave a message re lated to Insight / Chronic Disease Management program, will provide [facility] info once reached. Patient referred by: [facility] Marisol Contact made with patient: [...] [facility] Primary Visit Diagnosis:Polishing Pad Mounter ramon obstructive pulmonary disease, unspecified COPD type (HCC) [J44.9] Order(s):CONSULT TO PRIMARY CARE COORDIN NACHO LIM [[id number]] Order #: [id number]: 1 Prescriptions as of 12/02/2021 - atorvastatin [...] mouth twice daily for 90 days. - vwbfficknhv-gkykwolvb-jkqlnzzi (TRELEG Y ELLIPTA) 100-62.5-25 mcg inhalation powder [...] migh t be different from the original. [facility] Notes Noted. Selwyn Mejias MD Formatting of this note might be differe nt from the original. Called [facility] radiology dept. T myriamy will be doing pts biopsy. They need an update H&P. Pt missed several H&P appts with Dr. Fransisco moore the high school biology teacher with [facility]. Called pt to review the H&P should be co mpleted with Dr. Bentley. Pt will contact his office to arrange. Formatting of this note might be differe nt from the original. Kaylyn - [facility] - phoned to see if patient has seen pcp recently- they were hoping they could get an H & P, to do lung biopsy tomorrow, for lung mass. Reports patient was scheduled for this 2 weeks ago, but no showed. The 2nd time [facility] scheduled patient, patient was instructed to be [...] this encounter 11-02-2021 Note Patient Outreach (INTMMN) [facility] ic Van DREWDALIA Robbins ([id number]) 1955 F Date Time Provider Department 11/02/21 SELWYN MEJIAS During your visit today, we recorded the following information about you: Allergies As of Date: 11/02/2021 Noted A llergy Reaction WELLBUTRIN SR (BUPROPION) 05/08/2008 1 - Mental Status Change Comments: made me hallucinate Date Reviewed: 08/19/2021 Reviewed by: Racheal Lopez LPN - Fully A ssessed Visit Diagnosis:Encounter for screening mammogram for breast cancer [Z12.31] Order(s):[facility] SCREENING [[id number]] Order # : [id number] FUTURE Prescriptions as of 11/07/2021 - atorvastatin [...] mouth twice daily for 90 days. - xldtxxlmpub-qpouutuho-jwhdxpyk (TRELEG Y ELLIPTA) 100-62.5-25 mcg inhalation powder [...] note is d ifferent from the original. [facility] Notes Patient call in for chest [...] of breath; head throbbing. Protocols used: CHEST STJM-ADOHR-TR documented in this encounter 09-02-2021 Miscellaneous Formatting of this note migh t be different from the original. [facility] Notes letter printed Okay to send [...] Abs Lymph 1.00 - 4.00 k/uL 1.25 Costilla% % 13.3 Abs Costilla <0.87 k/uL 0.77 Eosin% % 3.1 Abs [...] migh t be different from the original. [facility] Notes Sw left 2nd message for serjio ent to return Sw to discuss financial/home care assistance needs. Sw called and left message f or patient in regards to SW consult request to help with financial constraints and help around the house. Sw requested patient call SW back to discuss needs. documented in this encounter 08-19-2021 Note HNO ID: [id number] [facility] Author: Lacy Manzanares APRN.[facility] Service: ? Author Type: Nurse Specialist [...] from previous visit: She was admitted to [facility] December 02 through December 06, 2020. [...] 3 to 6 L nasal cannula at [facility] Treated with IV Solu-Medrol during admission, transition [...] inhaler refill from Dr. Bentley Follow-up with high school biology teacher: scheduled for next week, Dr. Bentley's office Complete medications: yes completed. Notes eating OK. Does not take any suppl emental, nothing recommended at discharge notes continues to smoke, EtOH . Notes chronic back pain, stable, no alar m symptoms, ibuprofen seems to help somewhat. Not interested in physica l therapy. Has not seen spine physician. X-ray completed in February. Requests [place]. Presents today for routine follow up vis it. She reports no hospitalization or ER visits since last year. She has not seen Dr. Bentley since her ER visit in 2020, [facility]. COPD: Noted to be severe Cough: Present, clear sputum Wheeze: Present Shortness of breath: Present Bellstand Attendant visit: Dr Bentley (more content not included)... 08-19-2021 Instructions Lacy Manzanares APRN.CNS - 10:20 AM EDT [facility] Schedule a follow up with Dr Bentley. documented in this encounter 08-19-2021 History of Present [facility] illness Narrative SUBJECTIVE: LUNG CANCER SCREENING [...] from previous visit: She was admitted to [facility] December 02 through December 06, 2020. Admission [...] and cach ectic appearance. Dietitian consulted [facility] admission. 12/06/2020 WBC 9.3 hemoglobin 10.9 hematocrit [...] inhaler refill from Dr. Bentley Follow-up with high school biology teacher: scheduled for next week, Dr. Bentley's office Complete medications: yes completed. Notes eating OK. Does not ta ke any supplemental, nothing recommended at discharge notes continues to smoke, EtOH. Notes chronic back pain, sta ble, no alarm symptoms, ibuprofen seems to help somewhat. Not interested in physical therapy. Has not seen spine physician. X- ray completed in February. Requests [place]. Presents today for routine f ollow up visit. She reports no hospitalization or ER visits since last year. She has not seen Dr. Bentley since her ER visit in 2020, needs to schedule follow-up visit. COPD: Noted to be severe Cough: Present, clear sputum Wheeze: Present Shortness of breath: Present Bellstand Attendant visit: Dr Bentley Oxygen: 2 to 3 [...] by mouth twice daily for 90 days. sezlbgotbnl-ojhbtuiba-aoqbas er (TRELEGY ELLIPTA) 100-62.5-25 mcg inhalation powder [...] needed for Cold/Allergy Symptoms. polyethylene glycol 3350 (MT RALAX, GLYCOLAX) 17 gram packet Take 1 Packet by mouth once daily. PAST MEDICAL HISTORY Diagnosis Date Anxiety Back pain 09/2018 T5 compression fracture in fall. Chronic obstructive pulmonary disease ( COPD) ([facility]) Dysphagia, unspecified(787.20) Emphysema lung ([facility]) Hypertension INSOMNIA, intermittent 12/17/2006 stress related Unspecified chronic bronchitis ([facility]) Social History Tobacco Use Smoking status: Current [...] No ASSESSMENT/PLAN: ASSESSMENT/PLAN: 1. COPD, severe ([facility]) - ICD9: 496, ICD10 : J44.9 (primary diagnosis) 5. Chronic bronchitis, unspe cified chronic bronchitis type (HCC) - ICD9: 491.9, ICD10: J42 Currently stable, no recent exacerbation. Continue with current treatment unchanged for now. Currently using inhalers routinely. Reports oxygen 2 to 3 L 16/10. She is overdue for follow-up visit with Dr. Bentley her high school biology teacher. 6. Tobacco use disorder - ICD9: [...] SE 9. PAD (peripheral artery disease) ([facility]) - ICD9: 443.9, ICD10: I73.9 - ATORVASTATIN 10 MG TABLET 10. Gastroesophageal reflux disease without esophagitis - ICD9: 530.81, ICD10: K21.9 - CBC + DIFF - COMP METABOLIC PANEL - OMEPRAZOLE 40 MG CAPSULE,DELAYED RELEA SE 11. Compression fracture of T5 vertebra, initial encounter ([facility]) - ICD9: 805.2, ICD10: S22.050A 12. Closed fracture of multi ple ribs of right side with routine healing - ICD9: V54.19, ICD10: S22.41XD She notes back pain is currently managed with gabapentin. PDMP website checked and joni idated. All prescriptions have been APPROPRIATELY filled. No suspicious activity was identified. 08/19/2021 by Lacy Manzanares APRN.CALENDER OPERATOR HELPER - GABAPENTIN 300 MG CAPSULE 13. Need [...] this. 6-month follow-up with PCP Lacy Manzanares APRN.CALENDER OPERATOR HELPER Medical Decision Making: Problems: Moderate: 2+ stable chronic illnesses Data: Unique test(s) ordered: 3+ Risk: Moderate: Drug management Medical Decision Making Level: 4 - Moder ate documented in this encounter 08-18-2021 Miscellaneous Formatting of this note is d ifferent from the original. [facility] Notes Patient has been identified by [...] migh t be different from the original. [facility] Notes Patient returns call and pro [...] in this encounter 04-01-2020 Note HNO ID: [id number] [facility] Author: Eric Zamorano (Industrial Designer.Grinder Set Up Operator [employer]) [facility] Service: ? Author Type: Nurse Practitioner Type: [...] - Chronic obstructive pulmonary disease (COPD) ([facility]) - Dysphagia, unspecified(787.20) - Emphysema lung ([facility]) - Hypertension - INSOMNIA, intermittent 12/17/2006 stress related - Unspecified chronic bronchitis ([facility]) PAST SURGICAL HISTORY Procedure Laterality Date - [...] not in cluded)... 03-04-2020 Note HNO ID: [id number] [facility] Author: [facility] Service: ? Author Type: Physician Type: Progress Notes Filed: 03/07/2020 10:25 PM Note Text: [facility] General Spine and Pain [place] Interval Evaluation Form CHIEF COMPLAINT: Spine pain Interval HPI March 04, 2020 Ashley returns for f/u regaridng above complaints, here for medication refill. 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; and also interferes with the patient's ability [...] - Chronic obstructive pulmonary disease (COPD) ([facility]) - Dysphagia, unspecified(787.20) - Emphysema lung ([facility]) - Hypertension - INSOMNIA, intermittent 12/17/2006 stress [...] she used to when she worked at [employer] (since retired) FAMILY HISTORY: FAMILY HISTORY Problem [...] as of this encounter (statuses as of 07/07/2021)[facility] 03-02-2020 History of Past illness Narrative Problem Noted Date Resolved Date Cervical spondylosis without myelopathy 03/02/2020 05/27/2020 Lumbosacral spondylosis without myelopathy 03/02/2020 05/27/2020 Fracture of right distal radius 07/24/2012 11/25/19 15 Acute sinusitis, unspecified 02/06/2008 06/13/2017 Closed fracture of lateral malleolus 11/08/2005 Radial styloid tenosynovitis 06/28/2005 09/28/2005 Closed Colles' fracture 02/14/2005 09/28/2005 documented as of this encounter (statuses as of 08/18/2021)[facility] 03-02-2020 History of Past illness Narrative Problem Noted Date Resolved Date Cervical spondylosis without myelopathy 03/02/2020 05/27/2020 Lumbosacral spondylosis without myelopathy 03/02/2020 05/27/2020 Fracture of right distal radius 07/24/2012 11/25/19 15 Acute sinusitis, unspecified 02/06/2008 06/13/2017 Closed fracture of lateral malleolus 11/08/2005 Radial styloid tenosynovitis 06/28/2005 09/28/2005 Closed Colles' fracture 02/14/2005 09/28/2005 documented as of this encounter (statuses as of 08/19/2021)[facility] 03-02-2020 History of Past illness Narrative Problem Noted Date Resolved Date Cervical spondylosis without myelopathy 03/02/2020 05/27/2020 Lumbosacral spondylosis without myelopathy 03/02/2020 05/27/2020 Fracture of right distal radius 07/24/2012 11/25/19 15 Acute sinusitis, unspecified 02/06/2008 06/13/2017 Closed fracture of lateral malleolus 11/08/2005 Radial styloid tenosynovitis 06/28/2005 09/28/2005 Closed Colles' fracture 02/14/2005 09/28/2005 documented as of this encounter (statuses as of 08/25/2021)[facility] 03-02-2020 History of Past illness Narrative Problem Noted Date Resolved Date Cervical spondylosis without myelopathy 03/02/2020 05/27/2020 Lumbosacral spondylosis without myelopathy 03/02/2020 05/27/2020 Fracture of right distal radius 07/24/2012 11/25/19 15 Acute sinusitis, unspecified 02/06/2008 06/13/2017 Closed fracture of lateral malleolus 11/08/2005 Radial styloid tenosynovitis 06/28/2005 09/28/2005 Closed Colles' fracture 02/14/2005 09/28/2005 documented as of this encounter (statuses as of 09/02/2021)[facility] 03-02-2020 History of Past illness Narrative Problem Noted Date Resolved Date Cervical spondylosis without myelopathy 03/02/2020 05/27/2020 Lumbosacral spondylosis without myelopathy 03/02/2020 05/27/2020 Fracture of right distal radius 07/24/2012 11/25/19 15 Acute sinusitis, unspecified 02/06/2008 06/13/2017 Closed fracture of lateral malleolus 11/08/2005 Radial styloid tenosynovitis 06/28/2005 09/28/2005 Closed Colles' fracture 02/14/2005 09/28/2005 documented as of this encounter (statuses as of 09/28/2021)[facility] 03-02-2020 History of Past illness Narrative Problem Noted Date Resolved Date Cervical spondylosis without myelopathy 03/02/2020 05/27/2020 Lumbosacral spondylosis without myelopathy 03/02/2020 05/27/2020 Fracture of right distal radius 07/24/2012 11/25/19 15 Acute sinusitis, unspecified 02/06/2008 06/13/2017 Closed fracture of lateral malleolus 11/08/2005 Radial styloid tenosynovitis 06/28/2005 09/28/2005 Closed Colles' fracture 02/14/2005 09/28/2005 documented as of this encounter (statuses as of 11/07/2021)[facility] 03-02-2020 History of Past illness Narrative Problem Noted Date Resolved Date Cervical spondylosis without myelopathy 03/02/2020 05/27/2020 Lumbosacral spondylosis without myelopathy 03/02/2020 05/27/2020 Fracture of right distal radius 07/24/2012 11/25/19 15 Acute sinusitis, unspecified 02/06/2008 06/13/2017 Closed fracture of lateral malleolus 11/08/2005 Radial styloid tenosynovitis 06/28/2005 09/28/2005 Closed Colles' fracture 02/14/2005 09/28/2005 documented as of this encounter (statuses as of 11/10/2021)[facility] 03-02-2020 History of Past illness Narrative Problem Noted Date Resolved Date Cervical spondylosis without myelopathy 03/02/2020 05/27/2020 Lumbosacral spondylosis without myelopathy 03/02/2020 05/27/2020 Fracture of right distal radius 07/24/2012 11/25/19 15 Acute sinusitis, unspecified 02/06/2008 06/13/2017 Closed fracture of lateral malleolus 11/08/2005 Radial styloid tenosynovitis 06/28/2005 09/28/2005 Closed Colles' fracture 02/14/2005 09/28/2005 documented as of this encounter (statuses as of 11/29/2021)[facility] 03-02-2020 History of Past illness Narrative Problem Noted Date Resolved Date Cervical spondylosis without myelopathy 03/02/2020 05/27/2020 Lumbosacral spondylosis without myelopathy 03/02/2020 05/27/2020 Fracture of right distal radius 07/24/2012 11/25/19 15 Acute sinusitis, unspecified 02/06/2008 06/13/2017 Closed fracture of lateral malleolus 11/08/2005 Radial styloid tenosynovitis 06/28/2005 09/28/2005 Closed Colles' fracture 02/14/2005 09/28/2005 documented as of this encounter (statuses as of 12/02/2021)[facility] 03-02-2020 History of Past illness Narrative Problem Noted Date Resolved Date Cervical spondylosis without myelopathy 03/02/2020 05/27/2020 Lumbosacral spondylosis without myelopathy 03/02/2020 05/27/2020 Fracture of right distal radius 07/24/2012 11/25/19 15 Acute sinusitis, unspecified 02/06/2008 06/13/2017 Closed fracture of lateral malleolus 11/08/2005 Radial styloid tenosynovitis 06/28/2005 09/28/2005 Closed Colles' fracture 02/14/2005 09/28/2005 documented as of this encounter (statuses as of 12/02/2021)[facility] 03-02-2020 History of Past illness Narrative Problem Noted Date Resolved Date Cervical spondylosis without myelopathy 03/02/2020 05/27/2020 Lumbosacral spondylosis without myelopathy 03/02/2020 05/27/2020 Fracture of right distal radius 07/24/2012 11/25/19 15 Acute sinusitis, unspecified 02/06/2008 06/13/2017 Closed fracture of lateral malleolus 11/08/2005 Radial styloid tenosynovitis 06/28/2005 09/28/2005 Closed Colles' fracture 02/14/2005 09/28/2005 documented as of this encounter (statuses as of 12/15/2021)[facility] 03-02-2020 History of Past illness Narrative Problem Noted Date Resolved Date Lumbosacral spondylosis without myelopathy 03/02/2020 05/27/2020 Fracture of right distal radius 07/24/2012 11/25/19 15 Acute sinusitis, unspecified 02/06/2008 06/13/2017 Closed fracture of lateral malleolus 11/08/2005 Radial styloid tenosynovitis 06/28/2005 09/28/2005 Closed Colles' fracture 02/14/2005 09/28/2005 documented as of this encounter (statuses as of 01/05/2022)[facility] 03-02-2020 History of Past illness Narrative Problem Noted Date Resolved Date Lumbosacral spondylosis without myelopathy 03/02/2020 05/27/2020 Fracture of right distal radius 07/24/2012 11/25/19 15 Acute sinusitis, unspecified 02/06/2008 06/13/2017 Closed fracture of lateral malleolus 11/08/2005 Radial styloid tenosynovitis 06/28/2005 09/28/2005 Closed Colles' fracture 02/14/2005 09/28/2005 documented as of this encounter (statuses as of 01/06/2022)[facility] 03-02-2020 History of Past illness Narrative Problem Noted Date Resolved Date Lumbosacral spondylosis without myelopathy 03/02/2020 05/27/2020 Fracture of right distal radius 07/24/2012 11/25/19 15 Acute sinusitis, unspecified 02/06/2008 06/13/2017 Closed fracture of lateral malleolus 11/08/2005 Radial styloid tenosynovitis 06/28/2005 09/28/2005 Closed Colles' fracture 02/14/2005 09/28/2005 documented as of this encounter (statuses as of 01/23/2022)[facility] 03-02-2020 History of Past illness Narrative Problem Noted Date Resolved Date Lumbosacral spondylosis without myelopathy 03/02/2020 05/27/2020 Fracture of right distal radius 07/24/2012 11/25/19 15 Acute sinusitis, unspecified 02/06/2008 06/13/2017 Closed fracture of lateral malleolus 11/08/2005 Radial styloid tenosynovitis 06/28/2005 09/28/2005 Closed Colles' fracture 02/14/2005 09/28/2005 documented as of this encounter (statuses as of 01/30/2022)[facility] 03-02-2020 History of Past illness Narrative Problem Noted Date Resolved Date Lumbosacral spondylosis without myelopathy 03/02/2020 05/27/2020 Fracture of right distal radius 07/24/2012 11/25/19 15 Acute sinusitis, unspecified 02/06/2008 06/13/2017 Closed fracture of lateral malleolus 11/08/2005 Radial styloid tenosynovitis 06/28/2005 09/28/2005 Closed Colles' fracture 02/14/2005 09/28/2005 documented as of this encounter (statuses as of 02/01/2022)[facility] 03-02-2020 History of Past illness Narrative Problem Noted Date Resolved Date Lumbosacral spondylosis without myelopathy 03/02/2020 05/27/2020 Fracture of right distal radius 07/24/2012 11/25/19 15 Acute sinusitis, unspecified 02/06/2008 06/13/2017 Closed fracture of lateral malleolus 11/08/2005 Radial styloid tenosynovitis 06/28/2005 09/28/2005 Closed Colles' fracture 02/14/2005 09/28/2005 documented as of this encounter (statuses as of 02/07/2022)[facility] 03-02-2020 History of Past illness Narrative Problem Noted Date Resolved Date Lumbosacral spondylosis without myelopathy 03/02/2020 05/27/2020 Fracture of right distal radius 07/24/2012 11/25/19 15 Acute sinusitis, unspecified 02/06/2008 06/13/2017 Closed fracture of lateral malleolus 11/08/2005 Radial styloid tenosynovitis 06/28/2005 09/28/2005 Closed Colles' fracture 02/14/2005 09/28/2005 documented as of this encounter (statuses as of 02/07/2022)[facility] 02-12-2020 NoteHNO ID: [id number] Author: Jose Lanier Service: ? Author Type: Physician Type: Progress Notes Filed: 02/15/2020 9:02 PM Note Text: [facility] General Spine and Pain [place] Interval Evaluation Form CHIEF COMPLAINT: Spine pain Interval HPI February 12, 2020 Patinet returns for f/u regaridng above complaints, here for medication refill. 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 Author Type: Physician Type: Progress Notes Filed: 01/19/2020 12:20 AM Note Text: [facility] Spine and Pain [place] Interval Evaluation Form CHIEF COMPLAINT: Spine pain Interval HPI January 15, 2020 Ashley coronado fro f/u regaridng above complaints, here for medication refill. 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; and also interferes with the patient's ability [...] - Chronic obstructive pulmonary disease (COPD) ([facility]) - Dysphagia, unspecified(787.20) - Emphysema lung ([facility]) - Hypertension - INSOMNIA, intermittent 12/17/2006 stress related - Unspecified chronic bronchitis ([facility]) 12/17/2006 Psych: denies PAST SURGICAL HISTORY: PAST [...] pulse oximetry-- J42 Chr (more content not included)...[facility]10-22-2020 NoteProcedure (SPAGWO) DALIA DREW ([id number]) 1955 F Date Time Provider Department 01/15/20 11:45 AM JOSE LANIER During your visit today, we recorded the following information about you: Temperature Weight Height 97.9 degrees 52.2 kg 1.676 m Jose Lanier MD 01/19/2020 12:20 AM Signed [facility] Spine and Pain [place] Interval Evaluation Form CHIEF COMPLAINT: Spine pain Interval HPI January 15, 2020 Ashley coronado fro f/u regaridng above complaints, here for medication refill. 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; and also interferes with the patient's ability [...] - Chronic obstructive pulmonary disease (COPD) ([facility]) - Dysphagia, unspecified(787.20) - Emphysema lung ([facility]) - Hypertension - INSOMNIA, intermittent 12/17/2006 stress related - Unspecified chronic bronchitis ([facility]) 12/17/2006 Psych: denies PAST SURGICAL HISTORY: PAST SURGICAL HISTORY Procedure Laterality Date - BX BREAST PERC VACUUM/ROTN Left - COLONOSCOP W/ OR W/O [facility] SPEC mod poor prep, otherwise normal - EGD W/O [facility] SPECIMEN W/BX duodenitis, mild gastritis SOCIAL [...] 3 - losartan (COZA (more content not included)...[facility] 12-18-2019 NoteHNO ID: [id number] Author: Jose Lanier Service: ? 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 24 tablet 0 - kyghmsampgo-wmyzztrac-ganwhswu (TRELEGY ELLIPTA) 100-62.5-25 mcg dsdv Inhale 1 Puff as instructed once daily. (Patient not taking: Reported on 12/18/2019 ) 1 Inhaler (more content not included)...[facility], severe ([facility]) Chronic airway obstruction, not elsewher e classified [facility] COPD, severe (HCC)- Primary Chronic [...] disorder Generalized anxiety disorder [facility] Diagnosis Encounter for screening mammogram for br east cancer documented in [facility] HospitalEvaluation [facility] Diagnosis Chronic obstructive pulmonary disease, u nspecified COPD type (HCC)- Primary [facility] Diagnosis Essential hypertension- Primary Unspecified essential [...] unspecifie d severity (HCC) documented in this encounterM[facility] HospitalEvalumidd[facility] note Diagnosis COPD, severe (HCC)- Primary Chronic airway obstruction, not elsewher e classified documented in this encounterMansfield HospitalReason for referral (narrative) Diagnostic Procedure Only (Routine) - Pending Review Specialty Diagnoses / Procedures Referred By Contact Refer red To Contact [facility] Diagnoses Encounter for screening mammogram for breast cancer Selwyn Mejias MD [facility] Procedures MALACHI SCREENING SCREENING MAMMOGRAPHY BI 2-VIEW BREAST INC CAD [address] [facility] [address] [place] [address] [place] [address] Referral ID Status Reason Start Expiration Visits Visits Date Date Requested Authorized [id number] Pending Auto-Generat 11/02/2021 12/02/2022 1 1 Review ed Referral [facility] Summary Purpose Family History No Family History Records FoundNo Family History Records FoundNo Family History Records Found Advance Directives No Advanced Directives Records Found Documents on File Type Date Recorded Patient Telecommunications Support Explanati on Advance Directive(s) Advance Directive(s) 08/24/2018 4:30 PM Documents on File Type Date Recorded Patient Telecommunications Support Explanati on Advance Directive(s) 12/01/2021 11:24 AM Documents on File Type Date Recorded Patient Telecommunications Support Explanati on Advance Directive(s) 12/01/2021 11:24 AM Reason for Referral Specialty Diagnoses / Procedures Referred By Contact Refer red To Contact Diagnoses COPD, severe (HCC) Lacy Manzanares, PHOTOENGRAVING SUPERVISOR.CALENDER OPERATOR HELPER Procedures CONSULT TO PALLIATIVE CARE OFFICE/OUTPATIENT [facility] 60-74 MINUTES [address] [place] [address] Referral ID Status Reason Start Expiration Visits Visits Date Date Requested Authorized [id number] Authorized PCP Requested 01/27/2022 01/27/2023 1 1 Referral Additional Source Comments INFORMATION SOURCE (unrecognized section and content) DATE CREATED AUTHOR AUTHOR'S ORGANIZ ATION 11/16/2018 [facility] DATE CREATED AUTHOR AUTHOR'S ORGANIZATIO N 08/07/2020 [facility] DATE CREATED AUTHOR AUTHOR'S ORGANIZATIO N 03/24/2022 [facility] Source Comments (unrecognized section an d [...] prosecute any alcohol or drug abuse patient. [facility] HospitalIn the event this information is protected by t he Federal Confidentiality of Alcohol and Drug Abuse Patient Records regulations: This information has been disclosed to you from records protected by Federal confid entiality rules ( The Federal rules restrict any use of th e information to criminally investigate or prosecute any alcohol or drug abuse serjio ent. [facility] HospitalIn the event this information is protected by the Federal Confidentiality of Alcohol and Drug Abuse Patient Records regulations: This inform ation has been disclosed to you from records protected by Federal confidentiality rul es ( The Federal rules restrict any use of the in formation to criminally investigate or prosecute any alcohol or drug abuse serjio ent. [facility] HospitalIn the event this information is protected by the Federal Confidentiality of Alcohol and Drug Abuse Patient Records regulations: This inform ation has been disclosed to you from records protected by Federal confidentiality rul es ( The Federal rules restrict any use of the in formation to criminally investigate or prosecute any alcohol or drug abuse serjio ent. [facility] HospitalIn the event this information is protected by the Federal Confidentiality of Alcohol and Drug Abuse Patient Records regulations: This inform ation has been disclosed to you from records protected by Federal confidentiality rul es ( The Federal rules restrict any use of the in formation to criminally investigate or prosecute any alcohol or drug abuse serjio ent. [facility] HospitalIn the event this information is protected by the Federal Confidentiality of Alcohol and Drug Abuse Patient Records regulations: This inform ation has been disclosed to you from records protected by Federal confidentiality rul es ( The Federal rules restrict any use of the in formation to criminally investigate or prosecute any alcohol or drug abuse serjio ent. [facility] HospitalIn the event this information is protected by the Federal Confidentiality of Alcohol and Drug Abuse Patient Records regulations: This inform ation has been disclosed to you from records protected by Federal confidentiality rul es ( The Federal rules restrict any use of the in formation to criminally investigate or prosecute any alcohol or drug abuse serjio ent. [facility] HospitalIn the event this information is protected by the Federal Confidentiality of Alcohol and Drug Abuse Patient Records regulations: This inform ation has been disclosed to you from records protected by Federal confidentiality rul es ( The Federal rules restrict any use of the in formation to criminally investigate or prosecute any alcohol or drug abuse serjio ent. [facility] HospitalIn the event this information is protected by the Federal Confidentiality of Alcohol and Drug Abuse Patient Records regulations: This inform ation has been disclosed to you from records protected by Federal confidentiality rul es ( The Federal rules restrict any use of the in formation to criminally investigate or prosecute any alcohol or drug abuse serjio ent. [facility] HospitalIn the event this information is protected by the Federal Confidentiality of Alcohol and Drug Abuse Patient Records regulations: This inform ation has been disclosed to you from records protected by Federal confidentiality rul es ( The Federal rules restrict any use of the in formation to criminally investigate or prosecute any alcohol or drug abuse serjio ent. [facility] HospitalIn the event this information is protected by the Federal Confidentiality of Alcohol and Drug Abuse Patient Records regulations: This inform ation has been disclosed to you from records protected by Federal confidentiality rul es ( The Federal rules restrict any use of the in formation to criminally investigate or prosecute any alcohol or drug abuse serjio ent. [facility] HospitalIn the event this information is protected by the Federal Confidentiality of Alcohol and Drug Abuse Patient Records regulations: This inform ation has been disclosed to you from records protected by Federal confidentiality rul es ( The Federal rules restrict any use of the in formation to criminally investigate or prosecute any alcohol or drug abuse serjio ent. [facility] HospitalIn the event this information is protected by the Federal Confidentiality of Alcohol and Drug Abuse Patient Records regulations: This inform ation has been disclosed to you from records protected by Federal confidentiality rul es ( The Federal rules restrict any use of the in formation to criminally investigate or prosecute any alcohol or drug abuse serjio ent. [facility] HospitalIn the event this information is protected by the Federal Confidentiality of Alcohol and Drug Abuse Patient Records regulations: This inform ation has been disclosed to you from records protected by Federal confidentiality rul es ( The Federal rules restrict any use of the in formation to criminally investigate or prosecute any alcohol or drug abuse serjio ent. [facility] HospitalIn the event this information is protected by the Federal Confidentiality of Alcohol and Drug Abuse Patient Records regulations: This inform ation has been disclosed to you from records protected by Federal confidentiality rul es ( The Federal rules restrict any use of the in formation to criminally investigate or prosecute any alcohol or drug abuse serjio ent. [facility] HospitalIn the event this information is protected by the Federal Confidentiality of Alcohol and Drug Abuse Patient Records regulations: This inform ation has been disclosed to you from records protected by Federal confidentiality rul es ( The Federal rules restrict any use of the in formation to criminally investigate or prosecute any alcohol or drug abuse serjio ent. [facility] HospitalIn the event this information is protected by the Federal Confidentiality of Alcohol and Drug Abuse Patient Records regulations: This inform ation has been disclosed to you from records protected by Federal confidentiality rul es ( The Federal rules restrict any use of the in formation to criminally investigate or prosecute any alcohol or drug abuse serjio ent. [facility] HospitalIn the event this information is protected by the Federal Confidentiality of Alcohol and Drug Abuse Patient Records regulations: This inform ation has been disclosed to you from records protected by Federal confidentiality rul es ( The Federal rules restrict any use of the in formation to criminally investigate or prosecute any alcohol or drug abuse serjio ent. [facility] HospitalIn the event this information is protected by the Federal Confidentiality of Alcohol and Drug Abuse Patient Records regulations: This inform ation has been disclosed to you from records protected by Federal confidentiality rul es ( The Federal rules restrict any use of the in formation to criminally investigate or prosecute any alcohol or drug abuse serjio ent. [facility] Reason for Visit (unrecognized section a [...] OT Plan of Care Update Reason Comments [id number] Initial Consult Reason Comments Medication Problem Patient Update Reason Comments [facility] Verbal order/med list/pallia tive care order Reason Comments plan of care Care Teams (unrecognized section and con tent) Protection Manager Relationship Specialty Start Date End Date Selwyn Mejias MD PCP - General 12/17/[address] [place] [id number] Protection Manager Relationship Specialty Start Date End Date Selwyn Mejias MD PCP - General 12/17/[address] [place] [id number] Protection Manager Relationship Specialty Start Date End Date Selwyn Mejias MD PCP - General 12/17/[address] [place] [phone] Protection Manager Relationship Specialty Start Date End Date Selwyn Mejias MD PCP - General 12/17/[address] [place] [phone] Protection Manager Relationship Specialty Start Date End Date Selwyn Mejias MD PCP - General 12/17/[address] [place] [id number] Protection Manager Relationship Specialty Start Date End Date Selwyn Mejias MD PCP - General 12/17/[address] [place] [address], [place] [address] Protection Manager Relationship Specialty Start Date End Date Selwyn Mejias MD PCP - General 12/17/[address] [place] [address], [place] [address] Protection Manager Relationship Specialty Start Date End Date Selwyn Mejias MD PCP General 12/17/[address] [place] [address], [place] [address] Protection Manager Relationship Specialty Start Date End Date Selwyn Mejias MD PCP General 12/17/[address] [place] [address] [place] [address] Protection Manager Relationship Specialty Start Date End Date Selwyn Mejias MD PCP General 12/17/[address] [place] [address], [place] [address] Protection Manager Relationship Specialty Start Date End Date Selwyn Mejias MD PCP General 12/17/[address] [place] [address], [place] [address] Protection Manager Relationship Specialty Start Date End Date Selwyn Mejias MD PCP General 12/17/[address] [place] [address], [place] [address] Protection Manager Relationship Specialty Start Date End Date Selwyn Mejias MD PCP General 12/17/[address] [place] [address], [place] [address] Protection Manager Relationship Specialty Start Date End Date Selwyn Mejias MD PCP General 12/17/[address] [place] [address], [place] [address] Protection Manager Relationship Specialty Start Date End Date Selwyn Mejias MD PCP - General 12/17/06 [address] [place], [place] [phone] FOR RECORDS PERTAINING TO PATIENTS WHO ARE [...] BE BASED ON THE PRIMARY CLINICAL RECORDS. [facility] [employer] provides no warranty or guarantee of the accuracy or completeness of information in this document.
[2022-03-24] MEDS: Atorvastatin Calcium 10 MG Tablet PO (23:08)
[2022-03-24] MEDS: Thiamine Hydrochloride 100 MG Tablet PO (23:08)
[2022-03-24] MEDS: Ipratropium/Albuterol Sulfate 3 ML AMPUL.NEB INHALATION (23:20)
[2022-03-25] VITALS (18 sets, daily range): BP systolic 95–158; BP diastolic 51–86; PULSE 100–115; RESP 12–28; TEMP 36.3–37.2; O2SAT 88–97
[2022-03-25] MEDS: Albuterol 2.5 MG/3 ML VIAL.NEB. INHALATION (04:32)
[2022-03-25] MEDS: Acetaminophen 325 MG Tablet 650 MG PO ×2 (05:12→11:44)
[2022-03-25] MEDS: Thiamine Hydrochloride 100 MG Tablet PO ×3 (05:12→23:00)
[2022-03-25] MEDS: Ipratropium/Albuterol Sulfate 3 ML AMPUL.NEB INHALATION ×3 (06:45→19:19)
[2022-03-25 07:33] LABS: Absolute Neutrophil Count 4.4 X10^3/uL (2.0-7.7); Basophil# 0.01 X10^3/uL; Basophil% 0.2 % (0-1); Hematocrit 34.6 % (37-47); Hemoglobin 11.8 g/dL (12.0-15.0); Lymphocyte % 4.3 % (19-41); Mean Corp Hgb Conc 34.1 g/dL (32-36); Mean Corpuscular Hgb 30.3 pg (27.0-32.0); Mean Corpuscular Volume 88.9 fL (81-99); Mean Platelet Vol. 9.7 fl (6.2-12.0); Monocyte# 0.12 X10^3/uL; Monocyte% 2.6 % (0-10); NRBC Flagged by Analyzer 0 % (0-5); Neutrophil # 4.35 X10^3/uL (2.7-7.7); Neutrophil % 92.7 % (47-70); POSITIVE DIFFERENTIAL YES; POSITIVE MORPHOLOGY YES; Platelet Count 242 K/mm3 (150-450); RBC Distribution Width CV 14.1 % (11.6-14.6); RBC Distribution Width SD 46.3 fl (35.1-43.9); Red Blood Count 3.89 M/mm3 (4.2-5.4); White Blood Count 4.7 K/mm3 (4.4-11.0)
[2022-03-25 07:51] LABS: Differential Indicated SCAN CRITERIA MET
[2022-03-25 08:05] LABS: ALB/GLOB Ratio 0.8 RATIO (0.9-2.4); AST(SGOT) 18 U/L (15-37); Alanine Aminotransfer ALT/SGPT 16 U/L (13-56); Albumin, Serum 2.4 g/dL (3.2-5.0); Alkaline Phosphatase 36 U/L (45-117); Anion Gap 8 (5-15); BUN 22 mg/dL (7-18); BUN/Creat Ratio 37.2 RATIO (10-20); Calcium,Total 7.8 mg/dL (8.5-10.1); Chloride 101 mmol/L (98-107); Creatinine, Serum 0.59 mg/dL (0.55-1.02); EST Glomerular Filtration Rate 107 mL/min (>60); Est Glom Filt Rate - Afr Amer 130 mL/min (>60); Estimated Creatinine Clearance 41.91 ml/min; Globulin 3.1 g/dL (2.2-4.2); Glucose 165 mg/dL (74-106); Phosphorus 1.7 mg/dL (2.5-4.9); Potassium 3.5 mmol/L (3.5-5.1); Protein, Total 5.5 g/dL (6.4-8.2); Sodium Level 131 mmol/L (136-145)
--- NOTE | 2022-03-25 08:10 | CPS ---
PT INCREASED TO 5 LPM. SATURATION TO 90%. NURSE AWARE OF CHANGE.
[2022-03-25] MEDS: Enoxaparin 40 MG/0.4 ML Syringe SC (08:57)
[2022-03-25] MEDS: Pantoprazole Sodium 40 MG Tablet PO (08:57)
[2022-03-25] MEDS: Cholecalciferol (VIT D3) 25 MCG TABLET (1,000 UNITS) PO (08:57)
[2022-03-25] MEDS: Ensure Plus High Protein 120 ML LIQUID PO ×2 (08:57→17:52)
[2022-03-25 09:37] LABS: Differential Comment SCANNED
--- NOTE | 2022-03-25 10:28 | CASEMGMT ---
RADHA BOSWELL assessment: RN ELBERT to room for initial transition planning/care coordination assessment. RADHA BOSWELL introduced self and role at [facility], pt voices understanding and consents to assessment. Pt is lying in bed w/O2 @ 5 l/m and noted with SOB. RNKirk, chavo. Care providers, pharmacy,?and demographics verified. PCP: Jose Specialists: rhea Simpson Preferred Pharmacy: [facility] Insurance: [employer]/[facility] Prescription Benefit:?Yes Living Will/HPOA: Pt has LW/HPOA on file at [facility] and her sig other, Dylan Winter, is HPOA. LNOK: Dylan Winter, Sig other; Mikala Carrera, granddaughter Living Arrangements: Pt lives with sig other and grandson, Hi (20 yrs old) in 2-story home w/2 steps to enter. FFSU. Pt states she is indep w/ADL's and manages her own medications. She states her GS tries to help , stating he will help get her up when she falls. She states she has fallen about 2 x's in the past month, with last fall being 03/22 and she went to [facility] ED and found to have compression fx in her back. Transportation: Pt states family drives and states no transportation concerns. Dylan also drives. DME: Pt has the following DME: WW, W/C, grab bars, pulse ox, and O2 thru [employer]. Pt was d/c'd from [facility] in December w/O2 @ 3 l/m w/exertion. She states she thinks it has been increased by a physician since then, but she cannot remember by whom or how much. She states she mostly wears the O2 @ HS and w/exertion, but has been wearing it @ rest lately also and usually wears it @ 3-4 l/m. Unable to verify [employer]'s current O2 orders, as it is the weekend. Pt will need tested on RA @ rest and starting w/3 l/m w/exertion @ d/c. New O2 [place] to [place] [facility] if pt requires any O2 @ rest or more then 3 l/m w/exertion. Pt states she has a concentrator and portable O2 tanks, which her family can bring in for her to go home on @ d/c. Pt states does not have a shower chair and would like one. Pt has [employer] as secondary insurance. She was made aware [facility] may possibly cover for cost of shower chair and script to be provided to her for one. Pt states no need for any further DME. HHC/SNF: Pt does not wish to go to a SNF. She wishes to return home. She has had [facility] HHC in the past, but states she is not currently active w/them. She is interested in HHC @ d/c. She was made aware, if she discharges home before Sat, to f/u about HHC w/her PCP, as HHC cannot be set up over the W/E. She voices understanding. Pt was active w/Palliative in the past, but uncertain if she is still active at this time. Pt states no concerns with going home at time of discharge. Pt is retired. Pt states smokes about 1 PPD or less of cigarettes and drinks 3-4 beers/day, mostly on Sun and Sundays, stating she does not drink during the week. Pt voices no further concerns/needs. CM to follow for any further discharge planning/needs. Advised pt to ask for CM if any further questions/concerns/needs arise, voices understanding. D/C PLAN: Home w/family support and discharge plans in place. Follow for increase in O2 needs. Pt will need tested on RA @ rest and starting w/3 l/m w/exertion @ d/c. New O2 orders to be faxed to [facility] if pt requires any O2 @ rest or more then 3 l/m w/exertion. Script for shower chair to be signed by physician and give to pt @ d/c. If pt not discharged by Tu, CM to f/u about HHC and if pt active w/Palliative care. Jesse VARGASN RN CM
--- NOTE | 2022-03-25 11:18 | CASEMGMT ---
RN CM advised patient is interested in Directions Home and Passport program. SW provided patient with information on PASSPORT and Directions Home program. Plan: Resources provided Sugey MARROQUIN
--- NOTE | 2022-03-25 14:10 | CPS ---
PT PLACED ON BIPAP AND LANI WELL. SATURATION TO 94%. NURSE AWARE OF SETTINGS AND SATURATION IMPROVEMENT.
[2022-03-25] MEDS: oxyCODONE 5 MG Tablet PO (14:40)
--- NOTE | 2022-03-25 17:14 | CPS ---
pt placed on 6 lpm for dinner tray
--- NOTE | 2022-03-25 18:39 | PN.HOSP_ITS ---
Subjective Subjective Patient presented to the emergency department last evening with lethargy. She has a history of COPD and requires 4 L nasal cannula baseline. She evidently had a 3-day history of persistent lethargy. She had a fall on the and was seen in the emergency department. She missed a few steps which resolved mechan ical fall. Imaging showed compression fractures in the thoracic spine. Through the night she has developed worsening shortness of breath and has required up titration of her oxygen. The time of my examination she was to fairly tachypneic and complaining of pain. Tylenol had not been effective. We added oxycodone and elected to place her on BiPAP to decrease her work of breathing. She has a severe history of COPD and states that she was enrolled in hospice up until recently at which time she discontinued hospice because age try to kill her . Objective Data Objective Data Vital Signs: Vital Signs Temp Pulse Resp BP Pulse Ox O2 Del Method O2 Flow Rate 97.4 F L 105 H 20 H 123/80 H 96 Nasal Cannula 6 03/25/22 15:50 03/25/22 15:50 03/25/22 15:50 03/25/22 15:50 03/25/22 15:50 03/25/22 17:13 03/25/22 17:13 FiO2 45 03/25/22 15:30 Oxygen Flow Rate (L/min) 6 Oxygen Delivery Method Nasal Cannula Weight: 49.3 kg Body Mass Index (BMI) 17.5 Intake & Output: Intake and Output for Last 24 Hours 03/23/22 03/24/22 03/25/22 23:59 23:59 23:59 Intake Total 1200 / 1200 1320 / 1320 Balance 1200 / 1200 1320 / 1320 Lab / Micro Data Result Diagrams: 03/25/22 06:45 03/25/22 06:45 Labs: Laboratory Results - last 24 hr 03/24/22 15:03: Magnesium 2.0 03/24/22 17:53: Urine RBC 0 SEEN, Urine WBC 0-5 SEEN, Ur Squamous Epith Cells 0- 5 SEEN, Urine Bacteria 3+, Urine Mucus 1+ 03/25/22 06:45: WBC 4.7, RBC 3.89 L, Hgb 11.8 L, Hct 34.6 L, MCV 88.9, MCH 30.3, MCHC 34.1, RDW Std Deviation 46.3 H, RDW Coeff of Oral 14.1, Plt Count 242, MPV 9.7, Immature Gran % (Auto) 0.200, Neut % (Auto) 92.7 H, Lymph % (Auto) 4.3 L, [place] % (Auto) 2.6, Eos % (Auto) 0.0, Baso % (Auto) 0.2, Absolute Neuts (auto) 4.4, Absolute Lymphs (auto) 0.20 L, Nucleated RBC % 0, Differential Comment SCANNED 03/25/22 06:45: Sodium 131 L, Potassium 3.5, Chloride 101, Carbon Dioxide 22.0, Anion Gap 8, BUN 22 H, Creatinine 0.59, Estim Creat Clear Calc 41.91, Est GFR (MDRD) Af Amer 130, Est GFR (MDRD) Non-Af 107, BUN/Creatinine Ratio 37.2 H, Glucose 165 H, Calcium 7.8 L, Phosphorus 1.7 L, Total Bilirubin 0.60, AST 18, ALT 16, Alkaline Phosphatase 36 L, Total Protein 5.5 L, Albumin 2.4 L, Globulin 3.1, Albumin/Globulin Ratio 0.8 L Micro: Microbiology 03/24/22 17:53 Urine Catheter - Catheter Urine Culture - Preliminary Gram negative kael 03/24/22 15:25 Nasal Secretion SARS-CoV-2 & FLU Antigen (Rapid) - Final Physical Exam Const alert and oriented x3 Constitutional Narrative: Frail, cachectic appearing upper middle-aged white female who appears much older than stated age, sitting up in her bed upright appearing to have some respiratory distress but no signs of extremis, nontoxic but fairly winded HEENT head/scalp atraumatic and moist oral mucous membranes HEENT Narrative: Edentulous, Mallampati 1-2, no thrush Head and Scalp: normocephalic Eyes PERRL, EOMs intact bilaterally and conjunctivae normal Eyes Narrative: No scleral icterus Neck no lymphadenopathy, supple and no JVD Neck Narrative: Trachea midline, no thyroid enlargement Resp No normal respiratory effort, no retractions, No no use of accessory muscles and No clear to auscultation bilaterally Resp Narrative: Extremely poor air movement in all lung cantor with no adventitious sounds noted, some accessory muscle use no significant retractions, barrel chested Auscultation: Negative for crackles, rhonchi or wheezes Cardio regular rate, regular rhythm, S1 normal heart sound, S2 normal heart sound, no murmurs, no rub, no gallops and no clicks GI normal to inspection, nondistended, normoactive bowel sounds, soft to palpation and non-tender GI Narrative: Scaphoid abdomen Extremity no clubbing, cyanosis or edema Extremity Narrative: Decreased lean muscle mass, 2+ pedal pulses Neuro oriented x3, moves all extremities and no focal motor deficits Neuro Narrative: Speech quality was normal patient with conversational dyspnea Psych Mood & Affect: anxious Assessment & Plan Assessment/Plan (1) Acute and chronic respiratory failure with hypoxia: (2) T12 compression fracture: (3) Encephalopathy acute: (4) Generalized weakness: (5) Unable to ambulate: (6) Acute hypokalemia: (7) Hyponatremia: (8) UTI (urinary tract infection): PLAN: Plan Acute on chronic hypoxic respiratory failure secondary to acute exacerbation of COPD -We have had to place the patient on BiPAP for respiratory distress that she is exhibiting accessory muscle use with tachypnea, tachycardia, and worsening hypoxia with increasing oxygen demands -Start IV Solu-Medrol -Incentive spirometry -Acapella -Mucinex 1200 mg p.o. twice daily -Aggressive pulmonary toilet with scheduled and as needed nebulizers -IV steroids 40 mg every 8 -Continue BiPAP therapy and wean as able neck -Baseline oxygen requirements are 4 L [id number] strep pneumo and Legionella antigens -Check respiratory viral panel -Flu and COVID were negative on admission -Patient recently fired hospice as she felt they were trying to kill her -Highly recommend outpatient pulmonary follow-up at baseline she sees Dr. Simpson and has not seen him in some time -Significant abnormal finding on chest x-ray Gram-negative UTI -Start ceftriaxone -Uncomplicated and therefore will need 5 to 7 days of treatment -Await sensitivities and narrow as able Hypokalemia -Resolved Acute toxic/metabolic encephalopathy -Suspect multifactorial -Medication induced/respiratory status/urinary tract infection -Continue to monitor clinically T12 thoracic compression fracture -Continue Tylenol we will schedule -Add oxycodone as needed -Reassess tomorrow and consider further treatment with alternative medications if not improved -Check a.m. vitamin D level as patient is significantly high risk for osteoporosis Generalized weakness/debility -PT/OT consultation -May need placement at discharge -Will await progress notes and further evaluation Chronic hyponatremia -Sodium appears to be stable -Continue to monitor Hypertension -Continue home amlodipine Hyperlipidemia -Continue home Lipitor Vitamin D deficiency -Restart collect several discharge GERD Continue home PPI COPD -Last PFTs done September 27, 2021 showed partially reversible severe large airway obstructive disease with symmetric reduction in diffusing capacity and an FEV1 of 47% predicted -Hold home inhalers -Treatment as above for acute exacerbation Pulmonary nodule -Last CT was August 2021 -CT-guided biopsy was performed--> it is unclear if this was completed as there is no pathology results -If patient does not clinically improve may need to obtain CT here if not would recommend outpatient follow-up per Fleischner criteria Tobacco abuse -Still smokes -Recommend quitting DVT prophylaxis -Lovenox CODE STATUS -full code Charges/Coding Visit Charges Inpatient E&M: 04182 Subs Hosp L3
[2022-03-25] MEDS: Budesonide Respules 0.5 MG/2 ML AMPUL.NEB. INHALATION (19:19)
--- NOTE | 2022-03-25 20:22 | RAD_ITS ---
INDICATION: sob EXAMINATION/TECHNIQUE: X-RAY - XR Chest 1 View AP portable. 8:16 PM. COMPARISON: 03/24/2022 FINDINGS: LINES/DEVICES: None. LUNGS: Bilateral infiltrates, increased at the right lung base compared to prior study. No pneumothorax. MEDIASTINUM: Unremarkable. CARDIAC SILHOUETTE: Not enlarged. BONES AND SOFT TISSUES: No acute abnormalities. RAD/Chest 1 View (Portable) IMPRESSION: Increased bilateral infiltrates consistent with pneumonia.. Electronically Signed: Urmila Campbell MD at 20:43 EST ,
--- NOTE | 2022-03-25 21:52 | PCM.PN.BLA ---
Progress Note Nurse reported patient's sound wet for which reason IV fluid has been paused. Order to discontinue IV fluids. Chest x-ray concerning for bilateral pneumonia. Strep pneumo positive. Ceftriaxone already ordered in a.m.. One-time dose of Ceftriaxone ordered.
[2022-03-25] MEDS: Ceftriaxone 1 GM/50 ML BAG IV (22:52)
[2022-03-25] MEDS: Atorvastatin Calcium 10 MG Tablet PO (23:00)
[2022-03-25] MEDS: 0.9% Saline Lock 10 ML Syringe IV (23:00)
[2022-03-25] MEDS: guaiFENesin 1,200 MG Tablet 1200 MG PO (23:00)
[2022-03-26] VITALS (18 sets, daily range): BP systolic 130–153; BP diastolic 78–98; PULSE 89–116; RESP 12–29; TEMP 36.4–36.8; O2SAT 91–98
--- NOTE | 2022-03-26 03:13 | CPS ---
Pt too short of breath to perform I.S. or PEP. Both are in Room
[2022-03-26] MEDS: Thiamine Hydrochloride 100 MG Tablet PO ×3 (05:54→22:37)
[2022-03-26 06:12] LABS: Basophil# 0.06 X10^3/uL; Hematocrit 34.1 % (37-47); Hemoglobin 11.3 g/dL (12.0-15.0); Mean Corp Hgb Conc 33.1 g/dL (32-36); Mean Corpuscular Hgb 29.7 pg (27.0-32.0); Mean Corpuscular Volume 89.7 fL (81-99); Mean Platelet Vol. 10.4 fl (6.2-12.0); NRBC Flagged by Analyzer 0.9 % (0-5); POSITIVE DIFFERENTIAL YES; POSITIVE MORPHOLOGY YES; Platelet Count 254 K/mm3 (150-450); RBC Distribution Width CV 14.4 % (11.6-14.6); White Blood Count 4.3 K/mm3 (4.4-11.0)
[2022-03-26 06:18] LABS: Differential Indicated SCAN CRITERIA MET
[2022-03-26 06:38] LABS: Scan Smear per Review Criteria MANUAL DIFF
[2022-03-26 06:43] LABS: Anion Gap 7 (5-15); BUN 24 mg/dL (7-18); BUN/Creat Ratio 50.3 RATIO (10-20); Calcium,Total 8.1 mg/dL (8.5-10.1); Chloride 103 mmol/L (98-107); Creatinine, Serum 0.48 mg/dL (0.55-1.02); EST Glomerular Filtration Rate 137 mL/min (>60); Est Glom Filt Rate - Afr Amer 166 mL/min (>60); Estimated Creatinine Clearance 41.91 ml/min; Glucose 119 mg/dL (74-106); Magnesium 1.7 mg/dL (1.6-2.6); Neutrophil-Band 40 % (0-5); Neutrophil-Segmented 37 % (47-70); Phosphorus 2.1 mg/dL (2.5-4.9); Potassium 4.7 mmol/L (3.5-5.1); Sodium Level 132 mmol/L (136-145); Thyroid Stim Hormone (TSH) 0.63 uIU/mL (0.358-3.74); Total Cells Counted 100 (MANUAL DIFF)
[2022-03-26 06:44] LABS: Lymphocyte 7 % (19-41); Metamyelocyte 13 % (0-1); Monocyte 3 % (0-10); Platelet Estimate ADEQUATE (ADEQ); Red Cell Morphology NORM C+C NORMAL (NORM C&C)
[2022-03-26] MEDS: Ipratropium/Albuterol Sulfate 3 ML AMPUL.NEB INHALATION ×3 (07:33→19:43)
[2022-03-26] MEDS: Budesonide Respules 0.5 MG/2 ML AMPUL.NEB. INHALATION ×2 (07:33→19:42)
[2022-03-26 07:42] LABS: Absolute Neutrophil Count 3.8 X10^3/uL (2.0-7.7); Neutrophil # 3.84 X10^3/uL (2.7-7.7)
[2022-03-26] MEDS: Cholecalciferol (VIT D3) 25 MCG TABLET (1,000 UNITS) PO (08:15)
[2022-03-26] MEDS: guaiFENesin 1,200 MG Tablet 1200 MG PO ×2 (08:15→22:37)
[2022-03-26] MEDS: Enoxaparin 40 MG/0.4 ML Syringe SC (08:15)
[2022-03-26] MEDS: Pantoprazole Sodium 40 MG Tablet PO (08:15)
[2022-03-26] MEDS: Ensure Plus High Protein 120 ML LIQUID PO ×3 (08:17→16:42)
[2022-03-26] MEDS: 0.9% Saline Lock 10 ML Syringe IV ×2 (11:05→22:39)
--- NOTE | 2022-03-26 15:26 | PN.HOSP_ITS ---
Subjective Subjective Patient reports she is feeling much better and asking if she can go home. Is still tachypneic and requiring 5 L supplemental nasal cannula. Holding sats at rest however desats easily with activity. No specific complaints at this time. Pain is improved with pain medication. Objective Data Objective Data Vital Signs: Vital Signs Temp Pulse Resp BP Pulse Ox O2 Del Method O2 Flow Rate 98.1 F 100 22 H 144/81 H 95 Nasal Cannula 5 03/26/22 14:52 03/26/22 14:52 03/26/22 14:52 03/26/22 14:52 03/26/22 14:52 03/26/22 14:52 03/26/22 14:52 FiO2 50 03/26/22 02:10 Oxygen Flow Rate (L/min) 5 Oxygen Delivery Method Nasal Cannula Weight: 49.3 kg Body Mass Index (BMI) 17.5 Intake & Output: Intake and Output for Last 24 Hours 03/24/22 03/25/22 03/26/22 23:59 23:59 23:59 Intake Total 1200 / 1200 2376.67 / 2376.67 50 / 50 Balance 1200 / 1200 2376.67 / 2376.67 50 / 50 Lab / Micro Data Result Diagrams: 03/26/22 05:10 03/26/22 05:10 Labs: Laboratory Results - last 24 hr 03/26/22 05:10: WBC 4.3 L, RBC 3.80 L, Hgb 11.3 L, Hct 34.1 L, MCV 89.7, MCH 29.7, MCHC 33.1, RDW Std Deviation 48.0 H, RDW Coeff of Oral 14.4, Plt Count 254, MPV 10.4, Immature Gran % (Auto) HEALTH COMPANION, Neut % (Auto) HEALTH COMPANION, Lymph % (Auto) HEALTH COMPANION, [place] % (Auto) HEALTH COMPANION, Eos % (Auto) HEALTH COMPANION, Baso % (Auto) HEALTH COMPANION, Absolute Neuts (auto) 3.8, Absolute Lymphs (auto) 0.30 L, Total Counted 100, Neutrophils % (Manual) 37 L, Band Neutrophils % 40 H, Lymphocytes % (Manual) 7 L, Monocytes % (Manual) 3, Metamyelocytes % 13 H, Nucleated RBC % 0.9, Diff Path Review May , Platelet Estimate ADEQUATE, RBC Morphology NORM C+C 03/26/22 05:10: Sodium 132 L, Potassium 4.7, Chloride 103, Carbon Dioxide 22.0, Anion Gap 7, BUN 24 H, Creatinine 0.48 L, Estim Creat Clear Calc 41.91, Est GFR (MDRD) Af Amer 166, Est GFR (MDRD) Non-Af 137, BUN/Creatinine Ratio 50.3 H, Glucose 119 H, Calcium 8.1 L, Phosphorus 2.1 L, Magnesium 1.7, TSH 0.63 Micro: Microbiology 03/26/22 05:50 Mucosa - Nasopharyngeal Respiratory Panel (PCR) - Final Influenza A (Subtype H3) 03/24/22 17:53 Urine Catheter - Catheter Urine Culture - Final Escherichia coli 03/25/22 19:55 Urine, Clean Catch Streptococcus pneumoniae Antigen (M - Final Streptococcus pneumonia Ag 03/25/22 19:55 Urine, Clean Catch Legionella Antigen - Final 03/24/22 15:25 Nasal Secretion SARS-CoV-2 & FLU Antigen (Rapid) - Final Radiography Diagnostic Testing: Radiology Impression Chest X-Ray 03/25/22 20:22 IMPRESSION: Increased bilateral infiltrates consistent with pneumonia.. Electronically Signed: Urmila Campbell MD at 20:43 EST Reading Location ID and State: [facility] [place] / [place] Tel , Service support , Physical Exam Const alert and oriented x3 Constitutional Narrative: Frail, cachectic appearing upper middle-aged white female who appears much older than stated age, sitting up in bed, nursing at bedside, patient appears much more comfortable, remains tachypneic but no signs of respiratory distress or extremis HEENT head/scalp atraumatic and moist oral mucous membranes HEENT Narrative: Dentition is poor, Mallampati is 2, no thrush Head and Scalp: normocephalic Resp No normal respiratory effort, no retractions, no use of accessory muscles and No clear to auscultation bilaterally Resp Narrative: Improved air movement with few scattered wheeze and some rhonchi in right base, remains mildly tachypneic Auscultation: rhonchi and wheezes; Negative for crackles Cardio regular rate, regular rhythm, S1 normal heart sound, S2 normal heart sound, no murmurs, no rub, no gallops and no clicks GI normal to inspection, nondistended, normoactive bowel sounds, soft to palpation and non-tender GI Narrative: Scaphoid abdomen Extremity no clubbing, cyanosis or edema Extremity Narrative: Decreased lean muscle mass, 2+ pedal pulses Neuro oriented x3, moves all extremities and no focal motor deficits Neuro Narrative: Speech quality was normal, much less conversational dyspnea Psych affect normal Mood & Affect: anxious Assessment & Plan Assessment/Plan (1) Acute and chronic respiratory failure with hypoxia: (2) T12 compression fracture: (3) Encephalopathy acute: (4) Generalized weakness: (5) Unable to ambulate: (6) Acute hypokalemia: (7) Hyponatremia: (8) UTI (urinary tract infection): (9) Influenza A: (10) Streptococcal pneumonia: PLAN: Plan Acute on chronic hypoxic respiratory failure secondary to acute exacerbation of COPD related to influenza A/strep pneumo pneumonia -We have had to place the patient on BiPAP for respiratory distress that she is exhibiting accessory muscle use with tachypnea, tachycardia, and worsening hypoxia with increasing oxygen demands -Continue IV steroids -Incentive spirometry -Acapella -Mucinex 1200 mg p.o. twice daily -Aggressive pulmonary toilet with scheduled and as needed nebulizers -IV steroids 40 mg every 8 -Has been able to be weaned off BiPAP to nasal cannula at 5 to 6 L -Baseline oxygen requirements are 4 L [id number] -Respiratory viral panel positive for influenza A -Flu and COVID were negative on admission -Patient recently fired hospice as she felt they were trying to kill her -Highly recommend outpatient pulmonary follow-up at baseline she sees Dr. Simpsno and has not seen him in some time Pneumococcal pneumonia -Urine antigen positive -Unable to produce a sputum -Continue ceftriaxone but will increase to 2 g with the severity of her lung disease at baseline -Day 2 of 7 Influenza A -Start Tamiflu -Treatment as above E. coli UTI -Continue ceftriaxone -Uncomplicated and therefore will need 5 to 7 days of treatment -Await sensitivities and narrow as able Hypokalemia -Resolved Acute toxic/metabolic encephalopathy -Suspect multifactorial -Medication induced/respiratory status/urinary tract infection -Resolved T12 thoracic compression fracture -Continue Tylenol we will schedule -Continue oxycodone as needed -Reassess tomorrow and consider further treatment with alternative medications if not improved -Vitamin D levels pending Generalized weakness/debility -PT/OT following -May need placement at discharge -Will await progress notes and further evaluation Chronic hyponatremia -Sodium appears to be stable -Continue to monitor Hypertension -Continue home amlodipine Hyperlipidemia -Continue home Lipitor Vitamin D deficiency -Restart cholecalciferol at discharge GERD Continue home PPI COPD -Last PFTs done September 27, 2021 showed partially reversible severe large airway obstructive disease with symmetric reduction in diffusing capacity and an FEV1 of 47% predicted -Hold home inhalers -Treatment as above for acute exacerbation Pulmonary nodule -Last CT was August 2021 -CT-guided biopsy was performed--> it is unclear if this was completed as there is no pathology results -If patient does not clinically improve may need to obtain CT here if not would recommend outpatient follow-up per Fleischner criteria Tobacco abuse -Still smokes -Recommend quitting -Nicotine replacement added DVT prophylaxis -Lovenox CODE STATUS -full code Charges/Coding Visit Charges Inpatient E&M: 27951 Subs Hosp L2
[2022-03-26] MEDS: Atorvastatin Calcium 10 MG Tablet PO (22:37)
[2022-03-27] VITALS (20 sets, daily range): BP systolic 148–162; BP diastolic 92–113; PULSE 78–124; RESP 12–28; TEMP 35.9–36.6; O2SAT 91–100
[2022-03-27] MEDS: Thiamine Hydrochloride 100 MG Tablet PO ×3 (05:24→23:27)
[2022-03-27] MEDS: Budesonide Respules 0.5 MG/2 ML AMPUL.NEB. INHALATION ×2 (06:43→19:19)
[2022-03-27] MEDS: Ipratropium/Albuterol Sulfate 3 ML AMPUL.NEB INHALATION ×3 (06:43→19:19)
[2022-03-27 07:43] LABS: Absolute Neutrophil Count 5.6 X10^3/uL (2.0-7.7); Basophil# 0.03 X10^3/uL; Basophil% 0.5 % (0-1); Hemoglobin 11.5 g/dL (12.0-15.0); Lymphocyte % 6.4 % (19-41); Mean Corp Hgb Conc 32.9 g/dL (32-36); Mean Corpuscular Hgb 29.9 pg (27.0-32.0); Mean Corpuscular Volume 91.1 fL (81-99); Mean Platelet Vol. 10.1 fl (6.2-12.0); Monocyte# 0.18 X10^3/uL; Monocyte% 2.9 % (0-10); NRBC Flagged by Analyzer 0 % (0-5); Neutrophil # 5.63 X10^3/uL (2.7-7.7); Neutrophil % 89.6 % (47-70); POSITIVE DIFFERENTIAL YES; POSITIVE MORPHOLOGY YES; Platelet Count 258 K/mm3 (150-450); RBC Distribution Width CV 14.8 % (11.6-14.6); RBC Distribution Width SD 50.2 fl (35.1-43.9); Red Blood Count 3.84 M/mm3 (4.2-5.4); White Blood Count 6.3 K/mm3 (4.4-11.0)
[2022-03-27 07:44] LABS: Differential Indicated SCAN CRITERIA MET
[2022-03-27 08:12] LABS: Anion Gap 5 (5-15); BUN 31 mg/dL (7-18); BUN/Creat Ratio 59.3 RATIO (10-20); Calcium,Total 8.5 mg/dL (8.5-10.1); Chloride 106 mmol/L (98-107); Creatinine, Serum 0.52 mg/dL (0.55-1.02); EST Glomerular Filtration Rate 124 mL/min (>60); Est Glom Filt Rate - Afr Amer 150 mL/min (>60); Estimated Creatinine Clearance 41.91 ml/min; Glucose 130 mg/dL (74-106); Potassium 3.7 mmol/L (3.5-5.1); Sodium Level 137 mmol/L (136-145)
[2022-03-27] MEDS: Pantoprazole Sodium 40 MG Tablet PO (08:17)
[2022-03-27] MEDS: Enoxaparin 40 MG/0.4 ML Syringe SC (08:17)
[2022-03-27] MEDS: guaiFENesin 1,200 MG Tablet 1200 MG PO ×2 (08:18→23:27)
[2022-03-27] MEDS: Cholecalciferol (VIT D3) 25 MCG TABLET (1,000 UNITS) PO (08:18)
[2022-03-27] MEDS: Albuterol 2.5 MG/3 ML VIAL.NEB. INHALATION (09:47)
[2022-03-27 10:24] LABS: Differential Comment SCANNED
--- NOTE | 2022-03-27 11:33 | EKG12_ITS ---
Test Reason : Blood Pressure : / mmHG Vent. Rate : 106 BPM Atrial Rate : 106 BPM P-R Int : 130 ms QRS Dur : 096 ms QT Int : 330 ms P-R-T Axes : 072 037 058 degrees QTc Int : 438 ms Sinus tachycardia with occasional Premature ventricular complexes Otherwise normal ECG When compared with ECG of 24-MAR-2022 15:30, Premature ventricular complexes are now Present T wave amplitude has increased in Anterior leads QT has shortened Confirmed by CRISTIAN FOOTE, MILY ([id number]), editorial specialist KAI RODRIGUEZ ([id number]) on 04/03/2022 11:11:23 AM Referred By: VANESSA Confirmed By:ROBERTO FOSTER MD
[2022-03-27] MEDS: amLODIPine 2.5 MG Tablet PO (11:42)
[2022-03-27] MEDS: Citalopram 20 MG Tablet PO (11:42)
[2022-03-27] MEDS: Oseltamivir Phosphate 75 MG Capsule PO ×2 (12:16→23:27)
[2022-03-27] MEDS: 0.9% Saline Lock 10 ML Syringe IV (13:58)
--- NOTE | 2022-03-27 16:54 | PN.HOSP_ITS ---
Subjective Subjective Follow-up on acute on chronic respiratory failure/influenza A/pneumococcal pneumonia: Patient was seen and examined. She appears very short of breath and audibly wheezy. She is on 4 L of oxygen Objective Data Objective Data Vital Signs: Vital Signs Temp Pulse Resp BP Pulse Ox O2 Del Method O2 Flow Rate 97.8 F 115 H 28 H 148/92 H 93 Nasal Cannula 4 03/27/22 15:16 03/27/22 15:22 03/27/22 15:16 03/27/22 15:16 03/27/22 15:16 03/27/22 15:25 03/27/22 15:25 FiO2 30 03/27/22 04:27 Oxygen Flow Rate (L/min) 4 Oxygen Delivery Method Nasal Cannula Weight: 49.3 kg Body Mass Index (BMI) 17.5 Intake & Output: Intake and Output for Last 24 Hours 03/25/22 03/26/22 03/27/22 23:59 23:59 23:59 Intake Total 2376.67 / 2376.67 563.3333 / 563.3333 920 / 920 Balance 2376.67 / 2376.67 563.3333 / 563.3333 920 / 920 Lab / Micro Data Result Diagrams: 03/27/22 07:00 03/27/22 07:00 Labs: Laboratory Results - last 24 hr 03/27/22 07:00: WBC 6.3, RBC 3.84 L, Hgb 11.5 L, Hct 35.0 L, MCV 91.1, MCH 29.9, MCHC 32.9, RDW Std Deviation 50.2 H, RDW Coeff of Oral 14.8 H, Plt Count 258, MPV 10.1, Immature Gran % (Auto) 0.600, Neut % (Auto) 89.6 H, Lymph % (Auto) 6.4 L, [place] % (Auto) 2.9, Eos % (Auto) 0.0, Baso % (Auto) 0.5, Absolute Neuts (auto) 5.6, Absolute Lymphs (auto) 0.40 L, Nucleated RBC % 0, Differential Comment SCANNED 03/27/22 07:00: Sodium 137, Potassium 3.7, Chloride 106, Carbon Dioxide 26.0, Anion Gap 5, BUN 31 H, Creatinine 0.52 L, Estim Creat Clear Calc 41.91, Est GFR (MDRD) Af Amer 150, Est GFR (MDRD) Non-Af 124, BUN/Creatinine Ratio 59.3 H, Glucose 130 H, Calcium 8.5, Phosphorus 4.0 Micro: Microbiology 03/24/22 15:03 Blood Culture (Wb) - Left Forearm Blood Culture - Preliminary No growth in 48 hours. 03/24/22 15:25 Blood Culture (Wb) - Left Forearm Blood Culture - Preliminary No growth in 48 hours. 03/26/22 05:50 Mucosa - Nasopharyngeal Respiratory Panel (PCR) - Final Influenza A (Subtype H3) 03/24/22 17:53 Urine Catheter - Catheter Urine Culture - Final Escherichia coli 03/25/22 19:55 Urine, Clean Catch Streptococcus pneumoniae Antigen (M - Final Streptococcus pneumonia Ag 03/25/22 19:55 Urine, Clean Catch Legionella Antigen - Final 03/24/22 15:25 Nasal Secretion SARS-CoV-2 & FLU Antigen (Rapid) - Final Physical Exam Narrative Physical exam: General: Alert, Oriented x3, Cooperative, in mild respiratory distress with use of accessory muscles of respiration, on 4 L of oxygen, appears cachectic HEENT: Atraumatic Oral: Moist Mucosa Neck: Supple Lungs: Diminished to auscultation, wheezes vascular Cardiovascular: HS I+II, regular, no murmurs Abdomen: Bowel Sounds Present, Soft, Non Tender Extremities: No edema Skin: No rashes, No breakdown Neurological: Grossly intact Psych/Mental Status: Appropriate Assessment & Plan Assessment/Plan (1) Acute and chronic respiratory failure with hypoxia: (2) T12 compression fracture: (3) Encephalopathy acute: (4) Generalized weakness: (5) Unable to ambulate: (6) Acute hypokalemia: (7) Hyponatremia: (8) UTI (urinary tract infection): (9) Influenza A: (10) Streptococcal pneumonia: PLAN: Plan 1. Acute on chronic hypoxic respiratory failure secondary to acute COPD exacerbation/acute influenza A bronchitis/acute strep pneumonia pneumonia Patient is currently on 4 L of oxygen, continue breathing treatment, wean off for SPO2 more than 94% 2. Acute COPD exacerbation/acute influenza A bronchitis Still with very persistent wheezes and slightly increased work of breathing Continue on breathing treatments, budesonide, Mucinex, Solu-Medrol, Tamiflu, IV ceftriaxone Outpatient pulmonology follow-up as patient did not want hospice 3. Acute streptococcal pneumonia, urinary streptococcal antigen is positive Continue on IV ceftriaxone 4. Hypertension, fairly well on controlled, continue on metoprolol 5. Acute E. coli UTI, continue on IV ceftriaxone 6. Hypokalemia/acute metabolic encephalopathy, resolved 7. T12 thoracic compression fracture, unclear if old or new Continue oxycodone as needed 8. Rest of chronic medical conditions including hyperlipidemia/GERD/vitamin D de [facility] Home meds reviewed 9. Nicotine dependence, continue on replacement 10. DVT PPx- Lovenox [place] Charges/Coding Visit Charges Inpatient E&M: 49018 Subs Hosp L2
[2022-03-27] MEDS: Atorvastatin Calcium 10 MG Tablet PO (23:27)
[2022-03-28] VITALS (12 sets, daily range): BP systolic 158–176; BP diastolic 101–116; PULSE 84–109; RESP 18–20; TEMP 36.5–36.6; O2SAT 79–99
--- NOTE | 2022-03-28 01:21 | CPS ---
After aerosol treatment, pt was too short of breath to do PEP therapy.
[2022-03-28] MEDS: Thiamine Hydrochloride 100 MG Tablet PO ×2 (05:35→08:30)
[2022-03-28] MEDS: 0.9% Saline Lock 10 ML Syringe IV ×3 (05:37→14:28)
[2022-03-28] MEDS: amLODIPine 2.5 MG Tablet PO ×2 (05:45→13:12)
[2022-03-28 06:23] LABS: Magnesium 2.1 mg/dL (1.6-2.6)
[2022-03-28] MEDS: Ipratropium/Albuterol Sulfate 3 ML AMPUL.NEB INHALATION ×2 (06:47→14:24)
[2022-03-28] MEDS: Budesonide Respules 0.5 MG/2 ML AMPUL.NEB. INHALATION (06:48)
--- NOTE | 2022-03-28 08:14 | CPS ---
Pt to short of breath to do PEP therapy after treatment.
[2022-03-28] MEDS: guaiFENesin 1,200 MG Tablet 1200 MG PO (08:30)
[2022-03-28] MEDS: Oseltamivir Phosphate 75 MG Capsule PO (08:30)
[2022-03-28] MEDS: Cholecalciferol (VIT D3) 25 MCG TABLET (1,000 UNITS) PO (08:30)
[2022-03-28] MEDS: Pantoprazole Sodium 40 MG Tablet PO (08:30)
[2022-03-28] MEDS: Citalopram 20 MG Tablet PO (08:30)
[2022-03-28] MEDS: oxyCODONE 5 MG Tablet PO (08:30)
[2022-03-28] MEDS: Ensure Plus High Protein 120 ML LIQUID PO (08:31)
[2022-03-28 08:47] LABS: Vitamin D,25 Hydroxy 15.2 ng/mL
--- NOTE | 2022-03-28 11:00 | TREXTCAR_ITS ---
Diet Diet Order/Speech Therapy: 03/25/22 17:20 Diet: Regular - General Is pt able to select menu?: Yes Routine Orders/Code Status Suppository Type: Dulcolax 10mg Suppository Frequency: Daily PRN O2 Liters per Minute: 4 O2 Frequency: Continuous Keep PO Greater than or Equal to (%): 94 Routine Lab Work: CBC (within 3 days) and - (CMP within 3 days) Wound(s) Left santiago: Wound Type: Abrasion Therapies Weight Bearing: Weight bearing as tolerated Physical Therapy: Eval and Treat Occupational Therapy: Eval and Treat Problem/Diagnosis (1) Acute and chronic respiratory failure with hypoxia: Status: Chronic Code(s): J96.21 - Acute and chronic respiratory failure with hypoxia (2) T12 compression fracture: Status: Acute Code(s): S22.080A - Wedge compression fracture of T11-T12 vertebra, initial encounter for closed fracture (3) Encephalopathy acute: Status: Acute Code(s): G93.40 - Encephalopathy, unspecified (4) Generalized weakness: Status: Acute Code(s): R53.1 - Weakness (5) Unable to ambulate: Status: Acute Code(s): R26.2 - Difficulty in walking, not elsewhere classified (6) Acute hypokalemia: Status: Acute Code(s): E87.6 - Hypokalemia (7) Hyponatremia: Status: Acute Code(s): E87.1 - Hypo-osmolality and hyponatremia (8) UTI (urinary tract infection): Status: Acute Code(s): N39.0 - Urinary tract infection, site not specified (9) Influenza A: Status: Acute Code(s): J10.1 - Influenza due to other identified influenza virus with other respiratory manifestations (10) Streptococcal pneumonia: Status: Acute Code(s): J15.4 - Pneumonia due to other streptococci Plan 1. Acute on chronic hypoxic respiratory failure secondary to acute COPD exacerbation/acute influenza A bronchitis/acute strep pneumonia pneumonia 2. Acute COPD exacerbation 3. Acute influenza A bronchitis 4. Acute streptococcal pneumonia 5. Hypertension 6. Acute E. coli UTI 7. Hypokalemia 8. Acute metabolic encephalopathy 9. T12 thoracic compression fracture 10. Hyperlipidemia 11. GERD 12. Vitamin D deficiency 13. Nicotine dependence Allergies/Procedures Done in Hospital Allergies bupropion [From Wellbutrin] Allergy (Severe, Verified 03/24/22 14:46) hallucinations Procedures: None Type of Care/Length of Stay Estimated LOS: Convalescent Care Less Than 30 days Type of Care Needed: Skilled Rehab Potential: Fair Prognosis: Fair Additional Orders/Day of Discharge Day of Discharge: 03/29/22 Dietary and Speech Recommendations Dietitian Recommendations/Changes: Change diet to Regular - General to provide liberalization. Continue with Ensure Plus High Protein TID w/ medpass to help increase oral intakes. Will continue to follow and modify interventions as needed upon follow-up. Discharge Plan Admission Admit Date/Time: 03/25/22 11:37 Primary Reason for Your Visit: Debility/Acute COPD exacerbation/Acute influenza A Attending Provider: [place] Primary Care Provider: May Garcia Consulting Providers: Michael Miguel ; Sherrie Cui Discharge Orders/Prescriptions Prescriptions: No Action amlodipine [Norvasc] 2.5 mg tablet 2.5 mg PO DAILY albuterol sulfate 90 mcg/actuation HFA aerosol inhaler 2 puff inhalation Q4H PRN PRN (Reason: Shortness Of Breath) Qty: 1 6RF ipratropium-albuterol 0.5 mg-3 mg(2.5 mg base)/3 mL solution for nebulization 3 ml inhalation Q4H PRN PRN (Reason: SOB &/OR WHEEZING) Qty: 180 6RF omeprazole 40 MG capsule,delayed release(DR/EC) 40 mg PO DAILY citalopram 20 MG tablet 20 mg PO DAILY atorvastatin 10 mg tablet 10 mg PO QHS Trelegy Ellipta 200-62.5-25 mcg blister with device 1 inh inhalation DAILY thiamine HCl (vitamin B1) 100 mg Tablet 100 mg PO TID acetaminophen 325 mg tablet 650 mg PO Q6H PRN PRN (Reason: pain/fever) Label Comments: TAKE 1 TABLET EVERY 6 HOURS NEEDED Rx Instructions: takes morning and night polyethylene glycol 3350 17 gram Powder In Packet 17 g PO DAILY PRN (Reason: Constipation) cholecalciferol (vitamin D3) [Vitamin D3] 25 mcg (1,000 unit) Tablet 25 mcg PO DAILY cephalexin 500 mg capsule 500 mg PO TID Qty: 16 0RF Rx Instructions: start the evening of 01/19/22 Referrals / Follow Up: May Garcia MD [Primary Care Provider] - Disposition Disposition (needs filled in before D/C Order can be placed): Group Home Facility
--- NOTE | 2022-03-28 11:00 | PCM.PN.HOSP ---
Subjective Subjective Follow-up on acute on chronic respiratory failure/influenza A/pneumococcal pneumonia: Patient was seen and examined.?Patient looks frail. She remains on 4 L of oxygen. She is yet to be assessed for ambulatory oxygen. Objective Data Objective Data Vital Signs: Vital Signs Temp Pulse Resp BP Pulse Ox O2 Del Method O2 Flow Rate 98 F 93 20 H 158/108 H 99 Nasal Cannula 4 03/28/22 08:06 03/28/22 08:06 03/28/22 08:06 03/28/22 08:06 03/28/22 08:15 03/28/22 08:10 03/28/22 08:15 FiO2 30 03/27/22 04:27 Oxygen Flow Rate (L/min) [ 6 AMBULATING with Oxygen #3] Oxygen Flow Rate (L/min) [ 5 AMBULATING with Oxygen #2] Oxygen Flow Rate (L/min) [ 4 AMBULATING with Oxygen #1] Oxygen Flow Rate (L/min) [At 4 REST with Oxygen] Oxygen Flow Rate (L/min) 4 Oxygen Delivery Method Nasal Cannula Weight: 49.3 kg Body Mass Index (BMI) 17.5 Intake & Output: Intake and Output for Last 24 Hours 03/26/22 03/27/22 03/28/22 23:59 23:59 23:59 Intake Total 563.3333 / 563.3333 1420 / 1640 420 / 420 Balance 563.3333 / 563.3333 1420 / 1640 420 / 420 Lab / Micro Data Result Diagrams: 03/27/22 07:00 03/27/22 07:00 Labs: Laboratory Results - last 24 hr 03/25/22 06:45: Ionized Calcium 4.8 03/26/22 05:10: Vitamin D 25-Hydroxy 15.2 03/28/22 05:43: Magnesium 2.1 Micro: Microbiology 03/24/22 15:03 Blood Culture (Wb) - Left Forearm Blood Culture - Preliminary No growth in 48 hours. 03/24/22 15:25 Blood Culture (Wb) - Left Forearm Blood Culture - Preliminary No growth in 48 hours. 03/26/22 05:50 Mucosa - Nasopharyngeal Respiratory Panel (PCR) - Final Influenza A (Subtype H3) 03/24/22 17:53 Urine Catheter - Catheter Urine Culture - Final Escherichia coli 03/25/22 19:55 Urine, Clean Catch Streptococcus pneumoniae Antigen (M - Final Streptococcus pneumonia Ag 03/25/22 19:55 Urine, Clean Catch Legionella Antigen - Final 03/24/22 15:25 Nasal Secretion SARS-CoV-2 & FLU Antigen (Rapid) - Final Physical Exam Narrative Physical exam: General: Alert, Oriented x3, Cooperative, in mild respiratory distress with use of accessory muscles of respiration, on 4 L of oxygen, appears cachectic HEENT: Atraumatic Oral: Moist Mucosa Neck: Supple Lungs: Diminished to auscultation, wheezes vascular Cardiovascular: HS I+II, regular, no murmurs Abdomen: Bowel Sounds Present, Soft, Non Tender Extremities: No edema Skin: No rashes, No breakdown Neurological: Grossly intact Psych/Mental Status: Appropriate Assessment & Plan Assessment/Plan (1) Acute and chronic respiratory failure with hypoxia: (2) T12 compression fracture: (3) Encephalopathy acute: (4) Generalized weakness: (5) Unable to ambulate: (6) Acute hypokalemia: (7) Hyponatremia: (8) UTI (urinary tract infection): (9) Influenza A: (10) Streptococcal pneumonia: PLAN: Plan 1. Acute on chronic hypoxic respiratory failure secondary to acute COPD exacerbation/acute influenza A bronchitis/acute strep pneumonia pneumonia Patient remains on 4 L of oxygen, Continue breathing treatment, wean off for SPO2 more than 94% 2. Acute COPD exacerbation/acute influenza A bronchitis Slightly improved wheezes and work of breathing Continue on breathing treatments, budesonide, Mucinex, Solu-Medrol, Tamiflu, IV ceftriaxone Outpatient pulmonology follow-up as patient did not want hospice 3. Acute streptococcal pneumonia, urinary streptococcal antigen is positive Continue on IV ceftriaxone 4. Hypertension, uncontrolled, will increase amlodipine to 5 mg daily 5. Acute E. coli UTI, continue on IV ceftriaxone 6. Hypokalemia/acute metabolic encephalopathy, resolved 7. T12 thoracic compression fracture, unclear if old or new Continue oxycodone as needed 8. Rest of chronic medical conditions including hyperlipidemia/GERD/vitamin D deficiency Home meds reviewed 9. Nicotine dependence, continue on replacement 10. DVT PPx- Lovenox SC Disposition -group home facility if patient qualifies Charges/Coding Visit Charges Inpatient E&M: 34710 Subs Hosp L2
--- NOTE | 2022-03-28 16:35 | CASEMGMT ---
RADHA BOSWELL [place] Plan Follow-up: RADHA BOSWELL to pt's bedside to discuss discharge plan. Pt states she plans to return home with the support of her family and neighbors. States her grandson lives with her and is able to assist her and states her granddaughter Mikala can also stay with her at discharge. Discussed possible SNF at [place] to gain strength prior to returning home. Pt states she will not go to a SNF as she has everything she needs at home with a first floor set-up. Pt gave this RADHA BOSWELL permission to contact her granddaughter Mikala to discuss availability to help. Call placed to Mikala who states she is not available to stay with pt as she works a maritime guard job and has a 5yo son. States she can check on pt daily but is unable to stay with pt 16/10. States pt's grandson has high functioning Autism and is not able to provide pt assistance. States pt can be stay with pt's daughter (Mikala's mom) but this daughter lives in [place] and does not drive). This RADHA BOSWELL met with pt at bedside to discuss that family is unable to assist pt at discharge. Pt remains adamant that she is returning home at discharge with the assistance of her grandson and neighbors. Pt is agreeable to home health services. List of home health providers including quality and resource use data and consistent with pt's insurance and geographic region provided. Pt states she has had HH from [facility] in the past and is her first choice. Referral called to [facility] at [facility]. Requested pt make a second choice in case they are unable to accept. Will follow-up with [facility] regarding acceptance. Noted pt with increased home O2 needs from baseline (3L/min w/exertion). Pt states she has portable tanks available. Pt will need a high flow concentrator if need remains 6l/min with exertion upon discharge. [place] O2 script will also be needed. Will follow-up on above. Sharath Shepherd RN CM
[2022-03-28] MEDS: Metoprolol Tartrate 25 MG Tablet PO (17:36)
--- NOTE | 2022-03-28 17:46 | NURSING ---
went into room patient was dressed walking around room with out o2 assisted patient to sit down and put o2 back on. stated she is leaving will not stay did agree to take bp meds notified md does want home health family is present asked her to stay and said will not
--- NOTE | 2022-03-28 18:12 | NURSING ---
patient signed papers for ama and left
--- NOTE | 2022-03-29 06:04 | DS.PCM_ITS ---
Providers Date of Admission: 03/25/22 Date of Discharge: 03/28/22 Primary Care Physician: Dr. May Garcia MD Reason For Visit: ACUTE TOXIC ENCEPHALOPATHY Diagnosis Discharge Diagnosis (1) Acute and chronic respiratory failure with hypoxia: Status: Chronic Code(s): J96.21 - Acute and chronic respiratory failure with hypoxia (2) T12 compression fracture: Status: Acute Code(s): S22.080A - Wedge compression fracture of T11-T12 vertebra, initial encounter for closed fracture (3) Encephalopathy acute: Status: Acute Code(s): G93.40 - Encephalopathy, unspecified (4) Generalized weakness: Status: Acute Code(s): R53.1 - Weakness (5) Unable to ambulate: Status: Acute Code(s): R26.2 - Difficulty in walking, not elsewhere classified (6) Acute hypokalemia: Status: Acute Code(s): E87.6 - Hypokalemia (7) Hyponatremia: Status: Acute Code(s): E87.1 - Hypo-osmolality and hyponatremia (8) UTI (urinary tract infection): Status: Acute Code(s): N39.0 - Urinary tract infection, site not specified (9) Influenza A: Status: Acute Code(s): J10.1 - Influenza due to other identified influenza virus with other respiratory manifestations (10) Streptococcal pneumonia: Status: Acute Code(s): J15.4 - Pneumonia due to other streptococci Plan 1. Acute on chronic hypoxic respiratory failure secondary to acute COPD exacerbation/acute influenza A bronchitis/acute strep pneumonia pneumonia 2. Acute COPD exacerbation 3. Acute influenza A bronchitis 4. Acute streptococcal pneumonia 5. Hypertension 6. Acute E. coli UTI 7. Hypokalemia 8. Acute metabolic encephalopathy 9. T12 thoracic compression fracture 10. Hyperlipidemia 11. GERD 12. Vitamin D deficiency 13. Nicotine dependence Medications at Discharge Home Medications citalopram 20 mg tablet 20 mg PO DAILY depression 10/13/15 omeprazole 40 mg capsule,delayed release 40 mg PO DAILY acid reflux 10/13/15 amlodipine 2.5 mg tablet (Norvasc) 2.5 mg PO DAILY blood pressure 11/12/18 atorvastatin 10 mg tablet 10 mg PO QHS CHOLESTEROL 10/25/20 fluticasone fur. 200 mcg-umeclid 62.5 mcg-vilant 25 mcg inhalat.powder (Trelegy Ellipta) 1 inh inhalation DAILY copd 09/28/21 thiamine HCl (vitamin B1) 100 mg tablet 100 mg PO TID supplement 09/28/21 albuterol sulfate 90 mcg/actuation aerosol inhaler 2 puff inhalation Q4H PRN PRN Shortness Of Breath ##1 10/06/21 ipratropium 0.5 mg-albuterol 3 mg (2.5 mg base)/3 mL nebulization soln 3 ml inhalation Q4H PRN PRN SOB &/OR WHEEZING #180 mL 11/25/21 acetaminophen 325 mg tablet 650 mg PO Q6H PRN PRN pain/fever 01/18/22 cholecalciferol (vitamin D3) 25 mcg (1,000 unit) tablet (Vitamin D3) 25 mcg PO DAILY supplement 01/18/22 polyethylene glycol 3350 17 gram oral powder packet 17 g PO DAILY PRN Constipation 01/18/22 cephalexin 500 mg capsule 500 mg PO TID #16 caps 01/19/22 metoprolol tartrate 25 mg tablet 25 mg PO BID 30 days #60 tabs 03/29/22 prednisone 10 mg tablet See Taper PO DAILY #30 tabs 03/29/22 Hospital Course Operations None Procedures None Summary of Care Provided Minutes Spent on Discharge: 25 Hospital Course: 66-year-old with past medical history of chronic hypoxic respiratory failure, on 4 L of oxygen at home, chronic smoker, hypertension who comes in for 3-day history of progressive lethargy. Patient was said to be very lethargic and fell 03/22/22. X-rays of spine showed compression fractures. Patient was found to be tachypneic soon after admission. She was placed on BiPAP. Patient was previously on hospice but dis-enrolled because she stated trying to kill him. In the progressive care unit, patient was managed as acute on chronic respiratory failure secondary to acute COPD exacerbation. Her respiratory panel came back positive for acute influenza A and acute streptococcal pneumonia pneumonia. She did have evidence of acute UTI and was started on IV ceftriaxone. She had hypokalemia that was replaced. Throughout patient's stay, she was insistent on being discharged. She however was very wheezy in required increased oxygen. On 03/28/2022, upon discussion with patient and her granddaughter in the room as well as her daughter, it was recommended that patient be discharged to [facility] facility as she is mostly alone at home. Patient was very insistent on being discharged. Her blood pressure was elevated with PVCs on telemetry. Her magnesium and potassium were normal. Patient was started on metoprolol. She signed out AGAINST MEDICAL ADVICE. Prednisone taper as well as metoprolol were E scribed to her pharmacy after patient left. Physical Exam Narrative Physical exam: General: Alert, Oriented x3, Cooperative, in mild respiratory distress with use of accessory muscles of respiration, on 4 L of oxygen, appears cachectic HEENT: Atraumatic Oral: Moist Mucosa Neck: Supple Lungs: Diminished to auscultation, wheezes ++ Cardiovascular: HS I+II, regular, no murmurs Abdomen: Bowel Sounds Present, Soft, Non Tender Extremities: No edema Skin: No rashes, No breakdown Neurological: Grossly intact Psych/Mental Status: Appropriate Weight / BMI Weight Weight: 49.3 kg Body Mass Index (BMI) 17.5 ABG / Lab / Microbiology Data Result Diagrams: 03/27/22 07:00 03/27/22 07:00 Laboratory: Laboratory Results - last 24 hr 03/26/22 05:10: Vitamin D 25-Hydroxy 15.2 03/28/22 05:43: Magnesium 2.1 Microbiology: Microbiology 03/24/22 15:03 Blood Culture (Wb) - Left Forearm Blood Culture - Preliminary No growth in 48 hours. 03/24/22 15:25 Blood Culture (Wb) - Left Forearm Blood Culture - Preliminary No growth in 48 hours. 03/26/22 05:50 Mucosa - Nasopharyngeal Respiratory Panel (PCR) - Final Influenza A (Subtype H3) 03/24/22 17:53 Urine Catheter - Catheter Urine Culture - Final Escherichia coli 03/25/22 19:55 Urine, Clean Catch Streptococcus pneumoniae Antigen (M - Final Streptococcus pneumonia Ag 03/25/22 19:55 Urine, Clean Catch Legionella Antigen - Final 03/24/22 15:25 Nasal Secretion SARS-CoV-2 & FLU Antigen (Rapid) - Final D/C Instructions Discharge Diet: No restrictions Meaningful Use Info Meaningful Use Diagnoses (Choose all that apply): None applicable Discharge Plan Admission Admit Date/Time: 03/25/22 11:37 Primary Reason for Your Visit: Debility/Acute COPD exacerbation/Acute influenza A Attending Provider: [place] Primary Care Provider: May Garcia Consulting Providers: Michael Miguel ; Sherrie Cui Discharge Orders/Prescriptions Prescriptions: New metoprolol tartrate 25 mg tablet 25 mg PO BID 30 Days Qty: 60 0RF prednisone 10 mg tablet See Taper PO DAILY Qty: 30 0RF Taper: Prednisone Taper 40 mg WITH BREAKFAST for 3 Days and 0 Hour 30 mg WITH BREAKFAST for 3 Days and 0 Hour 20 mg WITH BREAKFAST for 3 Days and 0 Hour 10 mg WITH BREAKFAST for 3 Days and 0 Hour No Action amlodipine [Norvasc] 2.5 mg tablet 2.5 mg PO DAILY albuterol sulfate 90 mcg/actuation HFA aerosol inhaler 2 puff inhalation Q4H PRN PRN (Reason: Shortness Of Breath) Qty: 1 6RF ipratropium-albuterol 0.5 mg-3 mg(2.5 mg base)/3 mL solution for nebulization 3 ml inhalation Q4H PRN PRN (Reason: SOB &/OR WHEEZING) Qty: 180 6RF omeprazole 40 MG capsule,delayed release(DR/EC) 40 mg PO DAILY citalopram 20 MG tablet 20 mg PO DAILY atorvastatin 10 mg tablet 10 mg PO QHS Trelegy Ellipta 200-62.5-25 mcg blister with device 1 inh inhalation DAILY thiamine HCl (vitamin B1) 100 mg Tablet 100 mg PO TID acetaminophen 325 mg tablet 650 mg PO Q6H PRN PRN (Reason: pain/fever) Label Comments: TAKE 1 TABLET EVERY 6 HOURS NEEDED Rx Instructions: takes morning and night polyethylene glycol 3350 17 gram Powder In Packet 17 g PO DAILY PRN (Reason: Constipation) cholecalciferol (vitamin D3) [Vitamin D3] 25 mcg (1,000 unit) Tablet 25 mcg PO DAILY cephalexin 500 mg capsule 500 mg PO TID Qty: 16 0RF Rx Instructions: start the evening of 01/19/22 Referrals / Follow Up: May Garcia MD [Primary Care Provider] - Disposition Disposition (needs filled in before D/C Order can be placed): Against Medical Advice Charges/Coding Visit Charges Inpatient E&M: 97587 Disch Hosp
[2022-03-29 09:30] LABS: Pathologist Review Reviewed
--- NOTE | 2022-03-29 16:00 | CASEMGMT ---
RADHA BOSWELL Follow-up: Call placed to [facility] at [facility] for SN, PT/OT needs. Per Capri, pt accepted and she will obtain order from pt's PCP. Sharath Shepherd RN CM
== END 2022-03-28 18:17 | disposition left against medical advice (07) | DRG 193 ==
LOC: ED 20:22 → PCU 21:12
PROVIDERS: Family Medicine; Internal Medicine; Admitting Provider Hospitalist; Emergency Provider Emergency Medicine; PCP Internal Medicine; Visit Provider Internal Medicine
DX: J15.4 Pneumonia due to other streptococci (principal); S22.080A Wedge compression fracture of T11-T12 vertebra, initial encounter for closed fracture; N17.9 Acute kidney failure, unspecified; J44.1 Chronic obstructive pulmonary disease with (acute) exacerbation; J44.0 Chronic obstructive pulmonary disease with (acute) lower respiratory infection; J96.21 Acute and chronic respiratory failure with hypoxia; G93.41 Metabolic encephalopathy; E87.1 Hypo-osmolality and hyponatremia; N39.0 Urinary tract infection, site not specified; E78.5 Hyperlipidemia, unspecified; I10 Essential (primary) hypertension; E87.6 Hypokalemia; J20.9 Acute bronchitis, unspecified; K21.9 Gastro-esophageal reflux disease without esophagitis; E55.9 Vitamin D deficiency, unspecified; F17.210 Nicotine dependence, cigarettes, uncomplicated; R26.2 Difficulty in walking, not elsewhere classified; J10.1 Influenza due to other identified influenza virus with other respiratory manifestations; J20.8 Acute bronchitis due to other specified organisms; W10.9XXA Fall (on) (from) unspecified stairs and steps, initial encounter; Z79.51 Long term (current) use of inhaled steroids; B96.20 Unspecified Escherichia coli [E. coli] as the cause of diseases classified elsewhere; R53.81 Other malaise; I49.3 Ventricular premature depolarization; Z99.81 Dependence on supplemental oxygen; Z79.899 Other long term (current) drug therapy
CPT/HCPCS: 36415; 70450; 71045; 72100; 72125; 80048; 80053; 80076; 81001; 82306; 82330; 83605; 83735; 84100; 84443; 85025; 87040; 87077; 87086; 87088; 87186; 87428; 87449; 87633; 93005; 94002; 94003; 94640; 94668; 94762; 96361; 96365; 96366; 96367; 96372; 96374; 96375; 96376; 97162; 97166; 97802; 99221; 99251; 99284; 99285; J7030; J7040; J7120; A4216; G0378; G0463; J2405

== ENCOUNTER → 2022-04-07 | Outpatient (CLI) | payer MEDICARE, MEDICAID, SELFPAY ==
[2022-04-07 11:24] LABS: Hemoglobin 11.5 g/dL (12.0-15.0); Mean Corp Hgb Conc 32.9 g/dL (32-36); Mean Corpuscular Hgb 30.4 pg (27.0-32.0); Mean Corpuscular Volume 92.6 fL (81-99); Mean Platelet Vol. 9.8 fl (6.2-12.0); Platelet Count 586 K/mm3 (150-450); RBC Distribution Width CV 14.6 % (11.6-14.6); Red Blood Count 3.78 M/mm3 (4.2-5.4); White Blood Count 14.5 K/mm3 (4.4-11.0)
[2022-04-07 11:33] LABS: Anion Gap 7 (5-15); BUN 10 mg/dL (7-18); BUN/Creat Ratio 20.8 RATIO (10-20); Calcium,Total 7.8 mg/dL (8.5-10.1); Chloride 95 mmol/L (98-107); Creatinine, Serum 0.48 mg/dL (0.55-1.02); EST Glomerular Filtration Rate 136 mL/min (>60); Est Glom Filt Rate - Afr Amer 165 mL/min (>60); Glucose 97 mg/dL (74-106); Potassium 4.2 mmol/L (3.5-5.1); Sodium Level 126 mmol/L (136-145)
== END | disposition home or self-care (01) ==
PROVIDERS: PCP Internal Medicine; Referring Provider Internal Medicine; Visit Provider Internal Medicine
DX: J10.1 Influenza due to other identified influenza virus with other respiratory manifestations (principal); J44.1 Chronic obstructive pulmonary disease with (acute) exacerbation; J15.4 Pneumonia due to other streptococci
CPT/HCPCS: 80048; 85027

== ENCOUNTER 2022-09-05 18:58 | Emergency (ER) | payer MEDICARE, MEDICAID, SELFPAY ==
[2022-09-05] VITALS (8 sets, daily range): BP systolic 130–198; BP diastolic 97–125; PULSE 95–111; RESP 17–24; TEMP 35.7–36.6; O2SAT 89–100; BMI 18.3
--- NOTE | 2022-09-05 19:12 | EKG12_ITS ---
Test Reason : SOB Blood Pressure : / mmHG Vent. Rate : 094 BPM Atrial Rate : 094 BPM P-R Int : 160 ms QRS Dur : 096 ms QT Int : 370 ms P-R-T Axes : 062 023 061 degrees QTc Int : 462 ms Sinus rhythm with occasional Premature ventricular complexes Otherwise normal ECG Confirmed by CRISTIAN FOOTE, MILY ([id number]), city editor KAI RODRIGUEZ ([id number]) on 09/08/2022 10:05:51 A M Referred By: LAURA Confirmed By:ROBERTO FOSTER MD
--- NOTE | 2022-09-05 19:15 | EDS_ITS ---
HPI History of Present Illness Chief Complaint: Shortness of Breath Informant: patient Narrative Narrative: Patient presents with dyspnea. Patient states that she has been more short of breath for the last 3 or so days. She has been coughing more. She is starting to bring up some green sputum. She did strain the left chest wall when she was lifting a heavy tote about 2 days ago but states she was already having coughing and shortness of breath at the time. No hemoptysis. No known fever. She does have severe COPD. She sounds like she was even on hospice for period of time. She is on 5 to 6 L of oxygen at home. She went to see her primary physician today for this cough and sputum and they referred her in here because her saturations were low. She does admit that she gets much more short of breath with activity than she normally would. No leg pain or swelling. [facility] Medical History Alcohol dependence Alcoholism Allergic rhinitis Anxiety Back pain Chronic bronchitis Chronic hyponatremia Chronic hypoxemic respiratory failure Chronic respiratory failure with hypoxia COPD (chronic obstructive pulmonary disease) Depression Dysphagia Emphysema of lung Hospice care Hypertension Hyponatremia Insomnia Nicotine dependence, cigarettes, uncomplicated Protein-calorie malnutrition, moderate Smoker Smoking greater than 30 pack years Tobacco abuse Home Medications citalopram 20 mg tablet 20 mg PO DAILY depression 10/13/15 [History Last Taken 01/16/22] omeprazole 40 mg capsule,delayed release 40 mg PO DAILY acid reflux 10/13/15 [History Last Taken 01/16/22] amlodipine 2.5 mg tablet (Norvasc) 2.5 mg PO DAILY blood pressure 11/12/18 [History Last Taken 01/16/22] atorvastatin 10 mg tablet 10 mg PO QHS CHOLESTEROL 10/25/20 [History Last Taken 01/16/22] fluticasone fur. 200 mcg-umeclid 62.5 mcg-vilant 25 mcg inhalat.powder (Trelegy Ellipta) 1 inh inhalation DAILY copd 09/28/21 [History Last Taken 09/28/21] thiamine HCl (vitamin B1) 100 mg tablet 100 mg PO TID supplement 09/28/21 [History Last Taken 09/27/21] albuterol sulfate 90 mcg/actuation aerosol inhaler 2 puff inhalation Q4H PRN PRN Shortness Of Breath ##1 10/06/21 [Rx Last Taken Unknown] ipratropium 0.5 mg-albuterol 3 mg (2.5 mg base)/3 mL nebulization soln 3 ml inhalation Q4H PRN PRN SOB &/OR WHEEZING #180 mL 11/25/21 [Rx Last Taken Unknown] acetaminophen 325 mg tablet 650 mg PO Q6H PRN PRN pain/fever 01/18/22 [History Last Taken 01/16/22] cholecalciferol (vitamin D3) 25 mcg (1,000 unit) tablet (Vitamin D3) 25 mcg PO DAILY supplement 01/18/22 [History Last Taken Unknown] polyethylene glycol 3350 17 gram oral powder packet 17 g PO DAILY PRN Constipation 01/18/22 [History Last Taken Unknown] cephalexin 500 mg capsule 500 mg PO TID #16 caps 01/19/22 [Rx Last Taken Unknown] metoprolol tartrate 25 mg tablet 25 mg PO BID 30 days #60 tabs 03/29/22 [Rx Last Taken Unknown] prednisone 10 mg tablet See Taper PO DAILY #30 tabs 03/29/22 [Rx Last Taken Unknown] albuterol sulfate 2.5 mg/3 mL (0.083 %) solution for nebulization 2.5 mg (3 mL) inhalation Q4H PRN #25 vials 09/05/22 [Rx Last Taken Unknown] doxycycline monohydrate 100 mg capsule 100 mg PO BID #20 CAPSULES 09/05/22 [Rx Last Taken Unknown] ipratropium bromide 0.02 % solution for inhalation 2.5 ml inhalation Q6H PRN shortness of breath or wheezing #75 mL 09/05/22 [Rx Last Taken Unknown] prednisone 20 mg tablet 60 mg PO DAILY #15 TABLETS 09/05/22 [Rx Last Taken Unknown] Allergy/AdvReac Type Severity Reaction Status Date / Time bupropion [From Wellbutrin] Allergy Severe hallucinati Verified 03/24/22 14:46 ons Family History Mother Heart disease Hypertension CAD (coronary artery disease) Surgical History S/P chest tube placement Social History household members: significant other housing: house history of recent travel: No Smoking Status: Current every day smoker tobacco type: cigarettes quit status: considering quitting counseling given: provider counseling and counseling >10 minutes alcohol intake: current alcohol intake frequency: 3 or more drinks per day Alcohol type: beer details: 4-6 beers daily. substance use type: does not use ROS ROS ED ROS Narrative A complete review of systems was performed and is negative except as documented in the history of present illness. Some specific details below. Constitutional: No recent fevers or chills. But she does have some generalized malaise EYE: No discharge, visual complaints, or pain. ENT: No difficulty swallowing. No swelling. No pain. No reflux symptoms. CV: See history of present illness. Respiratory: See history of present illness. GI: No abdominal pain. No nausea vomiting diarrhea. No blood in stool. She admits appetite is down somewhat. : No frequency dysuria or hematuria. Musculoskeletal: No recent trauma. No pains. No swelling. Skin: No rash. Nondiaphoretic. Neuro: No weakness or numbness. Endocrine: No polyuria or polydipsia. EXAM Physical Exam Narrative Exam Narrative: CONSTITUTIONAL: Patient is wide awake and alert. She is a reasonable informant. She does have increased dyspnea. HEENT: No notable trauma. Mucous membranes moist. No sinus tenderness. No indication of pain with swallowing. EYES: No conjunctival injection. No proptosis. NECK:No JVD. No stridor. CARDIOVASCULAR: Mildly tachycardic rate. Regular rhythm. No notable murmur. No JVD. RESPIRATORY: Increased work of breathing. Saturations were initially 90 upper 70s and 80%. But as she sat in the bed and took multiple deep breaths her saturations have improved to about 97% on her 5 L of oxygen. She has diffuse coarse breath sounds greater on the left. She does have some expiratory wheezing but she is still moving air. GASTROINTESTINAL: Not distended. Bowel sounds are normal. No tenderness. No guarding. No rebound. No palpable mass. No bruit is heard. GENITOURINARY: No tenderness over the bladder. No CVA tenderness. MUSCULOSKELETAL: Atraumatic. No peripheral edema. No cord. No tenderness along the deep venous system. No asymmetry. No distended veins. NEUROLOGICAL: Patient is alert and appropriate. No focal deficit noted. He is not sleepy or lethargic. SKIN: No noted rashes. No diaphoresis. PSYCHIATRIC: Patient is calm. Mood is appropriate. Const Vital Signs: 09/05/22 19:00 09/05/22 19:24 09/05/22 19:01 Temperature 96.2 F L 96.2 F L Temperature Source Temporal Temporal Pulse Rate 111 H 97 111 H Respiratory Rate 24 H 23 H 24 H Respiratory Effort Respiratory Pattern Blood Pressure 198/125 H 198/125 H Blood Pressure Mean 149 149 Pulse Ox 89 89 Oxygen Delivery Method Nasal Cannula Nasal Cannula Oxygen Flow Rate (L/min) 5 5 09/05/22 20:31 09/05/22 20:32 09/05/22 21:16 Temperature 97.8 F Temperature Source Temporal Pulse Rate 104 H 95 Respiratory Rate 22 H 17 Respiratory Effort Short of Breath Accessory Muscle Use Respiratory Pattern Tachypnea Blood Pressure 194/120 H 130/111 H Blood Pressure Mean 144 117 Pulse Ox 100 96 Oxygen Delivery Method Nasal Cannula Nasal Cannula Nasal Cannula Oxygen Flow Rate (L/min) 5 5 5 MDM MDM MDM Narrative Medical decision making narrative: Patient was rechecked. She is moving air better. She looks like she has improved. She still is working a little bit to breathe but improved. CBC overall normal other than mildly elevated platelets. Electrolytes show minimally low potassium and sodium but these will self- correct. Troponin is negative Lactic acid is negative My independent interpretation the patient's single view chest x-ray shows what appear to be chronic scarring but no definitive infiltrate. Final reading shows findings consistent with COPD but no evidence of acute chest disease. Patient does have COPD exacerbation. But I am concerned with her yellowish- white sputum production that is turning green. This is a change in character or quantity of sputum and she is treated with antibiotics. She is severe COPD. She is normally on 5 to 6 L. We will walk her even a little in the room to see if she desaturates. Normally she does not want to be admitted but she states she is okay with that if it is needed. We will see how she does with any ambulation or activity. Patient was walked and desaturated only to 89% but she states she felt very good. She states the breathing treatments we gave her here worked well. She has these at home but she did not use them. She states she would just really never uses her breathing treatments. She is not sure if they are but she does have a functional nebulizer. I will write for albuterol and Atrovent in case hers are . She wants to go home. She states she feels well. I will write for prednisone. We will write for antibiotics. Lab Data Labs: Laboratory Results - last 24 hr 09/05/22 09/05/22 09/05/22 19:22 19:22 19:22 WBC 8.2 RBC 4.60 Hgb 13.6 Hct 41.3 MCV 89.8 MCH 29.6 MCHC 32.9 RDW Std Deviation 44.3 H RDW Coeff of Oral 13.5 Plt Count 456 H MPV 9.5 Immature Gran % (Auto) 0.400 Neut % (Auto) 68.7 Lymph % (Auto) 19.0 [place] % (Auto) 9.2 Eos % (Auto) 2.1 Baso % (Auto) 0.6 Absolute Neuts (auto) 5.6 Absolute Lymphs (auto) 1.55 Nucleated RBC % 0 Sodium 134 L Potassium 3.3 L Chloride 99 Carbon Dioxide 28.0 Anion Gap 7 BUN 14 Creatinine 0.60 Estim Creat Clear Calc 43.33 Est GFR (MDRD) Af Amer 128 Est GFR (MDRD) Non-Af 106 BUN/Creatinine Ratio 23.4 H Glucose 95 Lactic Acid 1.2 Calcium 9.3 Troponin I High Sens 13 Radiography Diagnostic Testing: Clinical Impression(s) from Imaging Studies Chest X-Ray 09/05/22 19:45 IMPRESSION: There are findings consistent with COPD. There is no evidence of acute chest disease. Electronically Signed: Narayan Fry MD at 20:31 EDT , EKG Initial EKG: Comments: My independent interpretation the patient's EKG shows sinus rhythm with occasional PVC. No acute ST elevation or depression. Overall rate is 94. MT interval, QRS duration and QTc are within normal. EKG is similar to to March of this year. Discharge Plan Triage Chief Complaint: Shortness of Breath ED Provider: Mark Martinez Dx/Rx/DC Orders Clinical Impression: Acute exacerbation of chronic obstructive pulmonary disease, Community acquired pneumonia Instructions: ED COPD Flare Prescriptions: New albuterol sulfate 2.5 mg /3 mL (0.083 %) solution for nebulization 2.5 mg inhalation Q4H PRN Qty: 25 0RF Rx Instructions: Use q4 hours and PRN for wheezing prednisone 20 mg tablet 60 mg PO DAILY Qty: 15 0RF doxycycline monohydrate 100 mg capsule 100 mg PO BID Qty: 20 0RF ipratropium bromide 0.02 % solution 2.5 ml inhalation Q6H PRN (Reason: shortness of breath or wheezing) Qty: 75 1RF No Action amlodipine [Norvasc] 2.5 mg tablet 2.5 mg PO DAILY albuterol sulfate 90 mcg/actuation HFA aerosol inhaler 2 puff inhalation Q4H PRN PRN (Reason: Shortness Of Breath) Qty: 1 6RF ipratropium-albuterol 0.5 mg-3 mg(2.5 mg base)/3 mL solution for nebulization 3 ml inhalation Q4H PRN PRN (Reason: SOB &/OR WHEEZING) Qty: 180 6RF omeprazole 40 MG capsule,delayed release(DR/EC) 40 mg PO DAILY citalopram 20 MG tablet 20 mg PO DAILY atorvastatin 10 mg tablet 10 mg PO QHS Trelegy Ellipta 200-62.5-25 mcg blister with device 1 inh inhalation DAILY thiamine HCl (vitamin B1) 100 mg Tablet 100 mg PO TID acetaminophen 325 mg tablet 650 mg PO Q6H PRN PRN (Reason: pain/fever) Label Comments: TAKE 1 TABLET EVERY 6 HOURS NEEDED Rx Instructions: takes morning and night polyethylene glycol 3350 17 gram Powder In Packet 17 g PO DAILY PRN (Reason: Constipation) cholecalciferol (vitamin D3) [Vitamin D3] 25 mcg (1,000 unit) Tablet 25 mcg PO DAILY cephalexin 500 mg capsule 500 mg PO TID Qty: 16 0RF Rx Instructions: start the evening of 01/19/22 metoprolol tartrate 25 mg tablet 25 mg PO BID 30 Days Qty: 60 0RF prednisone 10 mg tablet See Taper PO DAILY Qty: 30 0RF Taper: Prednisone Taper 40 mg WITH BREAKFAST for 3 Days and 0 Hour 30 mg WITH BREAKFAST for 3 Days and 0 Hour 20 mg WITH BREAKFAST for 3 Days and 0 Hour 10 mg WITH BREAKFAST for 3 Days and 0 Hour Primary Care Provider: May Garcia Referrals: May Garcia MD [Primary Care Provider] - 1-2 Days if not improving Disposition Disposition: Home, Self Care
[2022-09-05] MEDS: Albuterol 2.5 MG/3 ML VIAL.NEB. INHALATION (19:22)
[2022-09-05] MEDS: Ipratropium/Albuterol Sulfate 3 ML AMPUL.NEB INHALATION (19:23)
[2022-09-05] MEDS: MethylPREDNISolone 125 MG/2 ML Vial IV (19:37)
--- NOTE | 2022-09-05 19:45 | RAD_ITS ---
STUDY: X-RAY CHEST REASON FOR EXAM: Female, 67 years old. COUGH, sob TECHNIQUE: Single AP portable view of the chest. COMPARISON: 03/25/2022. FINDINGS: The lungs are hyperexpanded. There are coarsened interstitial markings suggestive of mild chronic fibrosis. No gross focal infiltrates. No gross effusions. Normal size heart. Normal mediastinum and tripp. Normal visualized pulmonary arteries. Normal visualized aortic arch and descending thoracic aorta. Normal visualized thoracic spine. Normal visualized ribs, clavicles, and shoulders. There is no demonstrated abnormality of the visualized soft tissue structures of the upper abdomen. RAD/Chest 1 View (Portable) IMPRESSION: There are findings consistent with COPD. There is no evidence of acute chest disease. Electronically Signed: Narayan Fry MD at 20:31 EDT ,
[2022-09-05 19:47] LABS: Absolute Lymphocyte Count 1.55 X10^3/uL (0.83-4.51); Absolute Neutrophil Count 5.6 X10^3/uL (2.0-7.7); Basophil# 0.05 X10^3/uL; Basophil% 0.6 % (0-1); Eosinophil# 0.17 X10^3/uL; Eosinophils% 2.1 % (0-5); Hematocrit 41.3 % (37-47); Hemoglobin 13.6 g/dL (12.0-15.0); Lymphocyte # 1.55 X10^3/ul (0.83-4.51); Mean Corp Hgb Conc 32.9 g/dL (32-36); Mean Corpuscular Hgb 29.6 pg (27.0-32.0); Mean Corpuscular Volume 89.8 fL (81-99); Mean Platelet Vol. 9.5 fl (6.2-12.0); Monocyte# 0.75 X10^3/uL; Monocyte% 9.2 % (0-10); NRBC Flagged by Analyzer 0 % (0-5); Neutrophil # 5.61 X10^3/uL (2.7-7.7); Neutrophil % 68.7 % (47-70); Platelet Count 456 K/mm3 (150-450); RBC Distribution Width CV 13.5 % (11.6-14.6); RBC Distribution Width SD 44.3 fl (35.1-43.9); White Blood Count 8.2 K/mm3 (4.4-11.0)
[2022-09-05 20:07] LABS: Anion Gap 7 (5-15); BUN 14 mg/dL (7-18); BUN/Creat Ratio 23.4 RATIO (10-20); Calcium,Total 9.3 mg/dL (8.5-10.1); Chloride 99 mmol/L (98-107); EST Glomerular Filtration Rate 106 mL/min (>60); Est Glom Filt Rate - Afr Amer 128 mL/min (>60); Estimated Creatinine Clearance 43.33 ml/min; Glucose 95 mg/dL (74-106); Potassium 3.3 mmol/L (3.5-5.1); Sodium Level 134 mmol/L (136-145); Troponin-I HS 13 pg/mL (3.0-54.0)
[2022-09-05 20:09] LABS: Lactic Acid 1.2 mmol/L (0.4-1.9)
[2022-09-05] MEDS: amLODIPine 2.5 MG Tablet PO (21:01)
[2022-09-05] MEDS: Metoprolol Tartrate 25 MG Tablet PO (21:02)
[2022-09-05] MEDS: predniSONE 20 MG Tablet 60 MG PO (22:05)
== END 2022-09-05 22:09 | disposition home or self-care (01) ==
PROVIDERS: Emergency Provider Emergency Medicine; PCP Internal Medicine; Visit Provider Emergency Medicine
DX: J18.9 Pneumonia, unspecified organism (principal); J44.1 Chronic obstructive pulmonary disease with (acute) exacerbation; J44.0 Chronic obstructive pulmonary disease with (acute) lower respiratory infection; I10 Essential (primary) hypertension; F17.210 Nicotine dependence, cigarettes, uncomplicated; Z99.81 Dependence on supplemental oxygen; Z79.899 Other long term (current) drug therapy; Z20.822 Contact with and (suspected) exposure to COVID-19
CPT/HCPCS: 71045; 80048; 83605; 84484; 85025; 87040; 87633; 87811; 93005; 94640; 96365; 96366; 96375; 99284; J7050; A4216

== ENCOUNTER 2023-03-07 10:21 | Inpatient (IN) | payer MEDICARE, SELFPAY ==
[2023-03-07] VITALS (16 sets, daily range): BP systolic 105–151; BP diastolic 69–98; PULSE 88–125; RESP 16–38; TEMP 36.4–39.3; O2SAT 82–98; BMI 16.9; BMI 24.2
--- NOTE | 2023-03-07 10:31 | EKG12_ITS ---
Test Reason : SOB Blood Pressure : / mmHG Vent. Rate : 130 BPM Atrial Rate : 130 BPM P-R Int : 134 ms QRS Dur : 088 ms QT Int : 302 ms P-R-T Axes : 050 022 079 degrees QTc Int : 444 ms Sinus tachycardia with occasional Premature ventricular complexes Minimal voltage criteria for LVH, may be normal variant ( Fabian product ) ST & T wave abnormality, consider lateral ischemia Abnormal ECG Confirmed by CRISTIAN FOOTE, MILY ([id number]), supervising film or videotape editor KAI RODRIGUEZ ([id number]) on 03/12/2023 1:44:23 P M Referred By: NAHUM Confirmed By:ROBERTO FOSTER MD
--- NOTE | 2023-03-07 10:32 | ED.VIS.DYS ---
HPI History of Present Illness Chief Complaint: Shortness of Breath Detail of Chief Complaint: Shortness of breath Informant: patient and family Narrative Narrative: Patient presents with complaint of shortness of breath that started yesterday. Patient had chills today. Cough started today. She complains of pain in her chest with deep breaths. She denies recent travel or surgery. Patient has history of COPD. She is normally on 4 L of O2 but can bump it up to 6 L as needed at home. Her granddaughter had COVID about 3 weeks ago. [facility] Medical History Alcohol dependence Alcoholism Allergic rhinitis Anxiety Back pain Chronic bronchitis Chronic hyponatremia Chronic hypoxemic respiratory failure Chronic respiratory failure with hypoxia COPD (chronic obstructive pulmonary disease) Depression Dysphagia Emphysema of lung Hospice care Hypertension Hyponatremia Insomnia Nicotine dependence, cigarettes, uncomplicated Protein-calorie malnutrition, moderate Smoker Smoking greater than 30 pack years Tobacco abuse Home Medications citalopram 20 mg tablet 20 mg PO DAILY depression 10/13/15 [History Last Taken 01/16/22] omeprazole 40 mg capsule,delayed release 40 mg PO DAILY acid reflux 10/13/15 [History Last Taken 01/16/22] amlodipine 2.5 mg tablet (Norvasc) 2.5 mg PO DAILY blood pressure 11/12/18 [History Last Taken 01/16/22] atorvastatin 10 mg tablet 10 mg PO QHS CHOLESTEROL 10/25/20 [History Last Taken 01/16/22] fluticasone fur. 200 mcg-umeclid 62.5 mcg-vilant 25 mcg inhalat.powder (Trelegy Ellipta) 1 inh inhalation DAILY copd 09/28/21 [History Last Taken 09/28/21] thiamine HCl (vitamin B1) 100 mg tablet 100 mg PO TID supplement 09/28/21 [History Last Taken 09/27/21] albuterol sulfate 90 mcg/actuation aerosol inhaler 2 puff inhalation Q4H PRN PRN Shortness Of Breath ##1 10/06/21 [Rx Last Taken Unknown] ipratropium 0.5 mg-albuterol 3 mg (2.5 mg base)/3 mL nebulization soln 3 ml inhalation Q4H PRN PRN SOB &/OR WHEEZING #180 mL 11/25/21 [Rx Last Taken Unknown] acetaminophen 325 mg tablet 650 mg PO Q6H PRN PRN pain/fever 01/18/22 [History Last Taken 01/16/22] cholecalciferol (vitamin D3) 25 mcg (1,000 unit) tablet (Vitamin D3) 25 mcg PO DAILY supplement 01/18/22 [History Last Taken Unknown] polyethylene glycol 3350 17 gram oral powder packet 17 g PO DAILY PRN Constipation 01/18/22 [History Last Taken Unknown] cephalexin 500 mg capsule 500 mg PO TID #16 caps 01/19/22 [Rx Last Taken Unknown] metoprolol tartrate 25 mg tablet 25 mg PO BID 30 days #60 tabs 03/29/22 [Rx Last Taken Unknown] prednisone 10 mg tablet See Taper PO DAILY #30 tabs 03/29/22 [Rx Last Taken Unknown] albuterol sulfate 2.5 mg/3 mL (0.083 %) solution for nebulization 2.5 mg (3 mL) inhalation Q4H PRN #25 vials 09/05/22 [Rx Last Taken Unknown] doxycycline monohydrate 100 mg capsule 100 mg PO BID #20 CAPSULES 09/05/22 [Rx Last Taken Unknown] ipratropium bromide 0.02 % solution for inhalation 2.5 ml inhalation Q6H PRN shortness of breath or wheezing #75 mL 09/05/22 [Rx Last Taken Unknown] prednisone 20 mg tablet 60 mg (3 x 20 mg) PO DAILY #15 TABLETS 09/05/22 [Rx Last Taken Unknown] Allergy/AdvReac Type Severity Reaction Status Date / Time bupropion [From Wellbutrin] Allergy Severe hallucinati Verified 03/07/23 10:25 ons Family History Mother Heart disease Hypertension CAD (coronary artery disease) Surgical History S/P chest tube placement Social History household members: significant other housing: house history of recent travel: No Smoking Status: Current every day smoker tobacco type: cigarettes quit status: considering quitting counseling given: provider counseling and counseling >10 minutes alcohol intake: current alcohol intake frequency: 3 or more drinks per day Alcohol type: beer details: 4-6 beers daily. substance use type: does not use ROS ROS ED Review of Systems ROS Unobtainable: other Constitutional Constitutional ED: Reports lethargy; Denies chills, fever(s), sweats or weight loss Eyes Eyes: Denies blurry vision, change in vision or diplopia ENT ENT ED: Denies rhinorrhea or sore throat Cardiovascular Cardiovascular: Reports chest pain; Denies orthopnea or racing heartbeat Respiratory/Chest Respiratory/Chest: Reports cough, dyspnea and dyspnea on exertion; Denies orthopnea or sputum Gastrointestinal Gastrointestinal: Denies abdominal pain, diarrhea, nausea or vomiting Genitourinary Genitourinary ED: Denies dysuria, hematuria or urinary frequency Musculoskeletal Musculoskeletal: Denies arthralgias, back pain, myalgias or neck pain Integumentary Denies abscess, Abrasions or rash Neurologic Neurologic: Denies headache(s) or weakness Psychiatric Psychiatric: Denies anxiety, depression or suicidal thoughts Endocrine Endocrinology: Denies polydipsia, polyphagia or polyuria Hematologic/Lymphatic Hematologic/Lymphatic: Denies easy bleeding, easy bruising or lymphadenopathy Allergic/Immunologic Allergic/Immunologic ED: Denies mouth swelling, tongue swelling or urticaria EXAM Physical Exam Const Vital Signs: 03/07/23 10:22 03/07/23 10:43 03/07/23 10:43 Temperature 102.8 F H Temperature Source Temporal Pulse Rate 125 H 121 H Respiratory Rate 38 H 28 H Blood Pressure 151/98 H Blood Pressure Mean 115 Pulse Ox 82 90 Oxygen Delivery Method Nasal Cannula Nasal Cannula Oxygen Flow Rate (L/min) 3 5 03/07/23 10:53 Temperature Temperature Source Pulse Rate Respiratory Rate Blood Pressure Blood Pressure Mean Pulse Ox 93 Oxygen Delivery Method Nasal Cannula Oxygen Flow Rate (L/min) 5 Positive well nourished and well developed General Appearance ED: well developed and NAD HEENT Reports TM's clear and moist mucous membranes normocephalic and atraumatic; Negative for trauma or tenderness Tympanic Membrane ED: Yes TM's clear Eyes PERRL and EOMs intact bilaterally General Eye ED: Negative for pale conjunctiva or scleral icterus Neck no lymphadenopathy, supple and no JVD General: Negative for tenderness Chest Wall inspection of chest normal and palpation of chest normal Chest: Negative for tenderness Resp normal respiratory effort and clear to auscultation bilaterally Resp Narrative: Mild tachypnea. Some faint expiratory wheezes. No ends breakage clerk muscle use or retractions. Effort and Inspection: Negative for respiratory distress or pain with movement Auscultation: wheezes; Negative for rhonchi or diminished lung sounds Cardio regular rhythm, S1 normal heart sound, S2 normal heart sound and no murmurs Rate: tachycardic Peripheral Pulses: pulses 2+ throughout GI normal to inspection, nondistended, normoactive bowel sounds, soft to palpation, non-tender, non-distended and no masses Back/Spine no CVA tenderness and no thoracic nor lumbar tenderness Extremity normal to inspection General Extremety ED: Negative for edema General Extremity: Negative for edema Neuro oriented x3, CN's II-XII intact bilaterally, no sensory deficits noted and gait normal Sensorium / Orientation: awake, alert, oriented to person, oriented to place and oriented to time Motor Exam: strength 5/5 throughout and strength abnormal Psych mental status grossly normal Skin no rashes or lesions noted and no wounds MDM MDM MDM Narrative Medical decision making narrative: With fever and shortness of breath and chest discomfort. The differential was infectious etiology such as pneumonia. Will also obtain EKG as well as lab work and testing for COVID. Will obtain blood cultures. COVID-19 testing and influenza testing was negative. CBC with differential count of 15.2 with platelet count of 309. Chest x-ray obtained showed right-sided infiltrates consistent with pneumonia. Patient was started on Rocephin and Zithromax IV. She was given DuoNeb aerosol and started on Solu-Medrol as well she did have some wheezing on presentation. Case will be discussed with hospitalist to evaluate patient for admission. Lab Data Attestation: I reviewed the patient's lab results. Labs: Laboratory Results - last 24 hr 03/07/23 10:45 WBC 15.2 H RBC 4.44 Hgb 13.5 Hct 40.4 MCV 91.0 MCH 30.4 MCHC 33.4 RDW Std Deviation 43.8 RDW Coeff of Oral 13.1 Plt Count 309 MPV 10.3 Immature Gran % (Auto) 0.300 Neut % (Auto) 93.5 H Lymph % (Auto) 2.0 L [place] % (Auto) 4.1 Eos % (Auto) 0.0 Baso % (Auto) 0.1 Absolute Neuts (auto) 14.3 H Absolute Lymphs (auto) 0.30 L Nucleated RBC % 0 Differential Comment SCANNED Radiography Diagnostic Testing: Clinical Impression(s) from Imaging Studies Chest X-Ray 03/07/23 10:45 IMPRESSION: Airspace disease as described. Radiographic follow-up recommended. Electronically Signed: Roni Sanchez MD at 11:10 EST , Chest x-ray obtained interpreted by myself as bilateral infiltrates right greater than left. Radiology in agreement. EKG Initial EKG: Attestation: I personally reviewed and interpreted this EKG as follows: Comments: Sinus rhythm with a rate of [address] changes Discharge Plan Triage Chief Complaint: Shortness of Breath ED Provider: Macho Walker Dx/Rx/DC Orders Clinical Impression: Dyspnea, Respiratory failure, Pneumonia Prescriptions: No Action amlodipine [Norvasc] 2.5 mg tablet 2.5 mg PO DAILY albuterol sulfate 90 mcg/actuation HFA aerosol inhaler 2 puff inhalation Q4H PRN PRN (Reason: Shortness Of Breath) Qty: 1 6RF ipratropium-albuterol 0.5 mg-3 mg(2.5 mg base)/3 mL solution for nebulization 3 ml inhalation Q4H PRN PRN (Reason: SOB &/OR WHEEZING) Qty: 180 6RF omeprazole 40 MG capsule,delayed release(DR/EC) 40 mg PO DAILY citalopram 20 MG tablet 20 mg PO DAILY atorvastatin 10 mg tablet 10 mg PO QHS Trelegy Ellipta 200-62.5-25 mcg blister with device 1 inh inhalation DAILY thiamine HCl (vitamin B1) 100 mg Tablet 100 mg PO TID acetaminophen 325 mg tablet 650 mg PO Q6H PRN PRN (Reason: pain/fever) Patient Comments: TAKE 1 TABLET EVERY 6 HOURS NEEDED Rx Instructions: takes morning and night polyethylene glycol 3350 17 gram Powder In Packet 17 g PO DAILY PRN (Reason: Constipation) cholecalciferol (vitamin D3) [Vitamin D3] 25 mcg (1,000 unit) Tablet 25 mcg PO DAILY cephalexin 500 mg capsule 500 mg PO TID Qty: 16 0RF Rx Instructions: start the evening of 10/27/22 metoprolol tartrate 25 mg tablet 25 mg PO BID 30 Days Qty: 60 0RF prednisone 10 mg tablet See Taper PO DAILY Qty: 30 0RF Taper: Prednisone Taper 40 mg WITH BREAKFAST for 3 Days and 0 Hour 30 mg WITH BREAKFAST for 3 Days and 0 Hour 20 mg WITH BREAKFAST for 3 Days and 0 Hour 10 mg WITH BREAKFAST for 3 Days and 0 Hour albuterol sulfate 2.5 mg /3 mL (0.083 %) solution for nebulization 2.5 mg inhalation Q4H PRN Qty: 25 0RF Rx Instructions: Use q4 hours and PRN for wheezing prednisone 20 mg tablet 60 mg PO DAILY Qty: 15 0RF doxycycline monohydrate 100 mg capsule 100 mg PO BID Qty: 20 0RF ipratropium bromide 0.02 % solution 2.5 ml inhalation Q6H PRN (Reason: shortness of breath or wheezing) Qty: 75 1RF Primary Care Provider: May Garcia Referrals: May Garcia MD [Primary Care Provider] - Disposition Disposition: Acute Care Hospital [facility]
[2023-03-07] MEDS: Ipratropium/Albuterol Sulfate 3 ML AMPUL.NEB INHALATION ×2 (10:43→15:45)
--- NOTE | 2023-03-07 10:45 | RAD_ITS ---
STUDY: X-RAY CHEST REASON FOR EXAM: Female, 67 years old. Dyspnea TECHNIQUE: Single AP portable view of the chest. COMPARISON: Comparison is made with prior study dated September 05, 2022. FINDINGS: EKG electrodes are seen. Since prior study, there has been marked degree of the airspace disease in the right midlung and right lower lobe as well as in the medial aspect of the left lower lobe. This may represent a combination of the pneumonitis infection superimposed on scarring. Follow-up recommended. There is no demonstrated pleural abnormality. Normal size heart. Normal mediastinum and tripp. Normal visualized pulmonary arteries. There is atherosclerotic calcification of the aortic arch with tortuosity. There are diffuse degenerative changes of the visualized thoracic spine. Normal visualized ribs, clavicles, and shoulders. There is no demonstrated abnormality of the visualized soft tissue structures of the upper abdomen. RAD/Chest 1 View (Portable) IMPRESSION: Airspace disease as described. Radiographic follow-up recommended. Electronically Signed: Roni Sanchez MD at 11:10 EST ,
[2023-03-07] MEDS: 0.9% Normal Saline (1000mL) 1,000 ML 150 ML IV (10:47)
[2023-03-07] MEDS: MethylPREDNISolone 125 MG/2 ML Vial IV (10:47)
[2023-03-07 11:03] LABS: Absolute Neutrophil Count 14.3 X10^3/uL (2.0-7.7); Basophil# 0.02 X10^3/uL; Basophil% 0.1 % (0-1); Hematocrit 40.4 % (37-47); Hemoglobin 13.5 g/dL (12.0-15.0); Mean Corp Hgb Conc 33.4 g/dL (32-36); Mean Corpuscular Hgb 30.4 pg (27.0-32.0); Mean Platelet Vol. 10.3 fl (6.2-12.0); Monocyte# 0.62 X10^3/uL; Monocyte% 4.1 % (0-10); NRBC Flagged by Analyzer 0 % (0-5); Neutrophil # 14.25 X10^3/uL (2.7-7.7); Neutrophil % 93.5 % (47-70); POSITIVE DIFFERENTIAL YES; Platelet Count 309 K/mm3 (150-450); RBC Distribution Width CV 13.1 % (11.6-14.6); RBC Distribution Width SD 43.8 fl (35.1-43.9); Red Blood Count 4.44 M/mm3 (4.2-5.4); White Blood Count 15.2 K/mm3 (4.4-11.0)
[2023-03-07 11:10] LABS: Differential Indicated SCAN CRITERIA MET
[2023-03-07 11:22] LABS: Differential Comment SCANNED
[2023-03-07] MEDS: Acetaminophen 500 MG Tablet 1000 MG PO (11:27)
[2023-03-07] MEDS: Ceftriaxone 1 GM/50 ML BAG IV ×2 (11:27→16:10)
[2023-03-07 11:29] LABS: Lactic Acid 1.3 mmol/L (0.4-1.9)
[2023-03-07 11:30] LABS: Anion Gap 7 (5-15); BUN 17 mg/dL (7-18); BUN/Creat Ratio 27.7 RATIO (10-20); Calcium,Total 8.5 mg/dL (8.5-10.1); Chloride 103 mmol/L (98-107); Creatinine, Serum 0.61 mg/dL (0.55-1.02); EST Glomerular Filtration Rate 102 mL/min (>60); Est Glom Filt Rate - Afr Amer 124 mL/min (>60); Estimated Creatinine Clearance 39.98 ml/min; Glucose 115 mg/dL (74-106); Potassium 3.9 mmol/L (3.5-5.1); Sodium Level 137 mmol/L (136-145); Troponin-I HS 57 pg/mL (3.0-54.0)
--- NOTE | 2023-03-07 11:38 | PCM.HP.STD ---
HPI - General General Date of Admission: 03/07/23 Date of Service: 03/07/23 HPI Narrative SPENCER MENDES, is a 67 F who presented to [facility] ED on 03/09/2023 with worsening shortness of breath. Patient seen at bedside in the ED. Patient reported significant improvement in her work of breathing after receiving a DuoNeb breathing treatment on arrival. I evaluated the patient after she had received his breathing treatment. On my exam, she was breathing quite comfortably on 5 L nasal cannula, O2 saturations in the low to mid 90s at rest. Patient stated that her upper respiratory symptoms started yesterday and worsened significantly this morning. She is on 4 L nasal cannula at baseline for chronic respiratory failure secondary to COPD. She is still a current smoker, smokes half a pack to a full pack per day. She denies any recent sick contacts that she is aware of. She does have some degree of chronic debility at baseline but she lives at home with her boyfriend, has been doing most things around the house for self without issue. States she has been taking her home medications as prescribed and using her inhalers as normal. She currently denies any chest pain, fevers or chills, lightheadedness or dizziness. No other acute concerns at this time. [facility] Medical History (Updated 03/07/23 @ 15:27 by Fredi Turcios) Alcohol dependence Alcoholism Allergic rhinitis Anxiety Back pain Chronic bronchitis Chronic hyponatremia Chronic hypoxemic respiratory failure Chronic respiratory failure with hypoxia COPD (chronic obstructive pulmonary disease) Depression Dysphagia Emphysema of lung Hospice care Hypertension Hyponatremia Insomnia Nicotine dependence, cigarettes, uncomplicated Protein-calorie malnutrition, moderate Smoker Smoking greater than 30 pack years Tobacco abuse Home Medications omeprazole 40 mg capsule,delayed release 40 mg PO DAILY ACID REFLUX 10/13/15 [History Last Taken 03/05/23] atorvastatin 10 mg tablet 10 mg PO QHS CHOLESTEROL 10/25/20 [History Last Taken 03/05/23] albuterol sulfate 2.5 mg/3 mL (0.083 %) solution for nebulization 2.5 mg inhalation Q4H PRN WHEEZING/SHORTNESS OF BREATH 03/07/23 [History Last Taken 03/05/23] albuterol sulfate 90 mcg/actuation aerosol inhaler 2 puff inhalation Q4H PRN SHORTNESS OF BREATH 03/07/23 [History Last Taken 03/05/23] cyclobenzaprine 5 mg tablet 5 mg PO TID PRN MUSCLE SPASMS 03/07/23 [History Last Taken 03/05/23] duloxetine 60 mg capsule,delayed release 60 mg PO DAILY DEPRESSION 03/07/23 [History Last Taken 03/05/23] fluticasone fur. 100 mcg-umeclid 62.5 mcg-vilant 25 mcg inhalat.powder (Trelegy Ellipta) 1 inh inhalation DAILY COPD 03/07/23 [History Last Taken 03/05/23] gabapentin 600 mg tablet 600 mg PO BID PAIN 03/07/23 [History Last Taken 03/05/23] losartan 50 mg tablet 50 mg PO DAILY BLOOD PRESSURE 03/07/23 [History Last Taken 03/05/23] Allergy/AdvReac Type Severity Reaction Status Date / Time bupropion [From Wellbutrin] Allergy Severe hallucinati Verified 03/07/23 10:25 ons Family History Mother Heart disease Hypertension CAD (coronary artery disease) Surgical History S/P chest tube placement Social History household members: significant other housing: house history of recent travel: No Smoking Status: Current every day smoker tobacco type: cigarettes quit status: considering quitting counseling given: provider counseling and counseling >10 minutes alcohol intake: current alcohol intake frequency: 3 or more drinks per day Alcohol type: beer details: 4-6 beers daily. substance use type: does not use ROS Constitutional Constitutional: Reports fatigue; Denies change in weight, chills, fever(s) or weakness Eyes Eyes: Denies change in vision Cardiovascular Cardiovascular: Reports dyspnea on exertion; Denies chest pain, edema, lightheadedness or palpitations Respiratory/Chest Respiratory/Chest: Reports cough, shortness of breath at rest, shortness of breath with exertion and wheezing; Denies productive cough Gastrointestinal Gastrointestinal: Denies abdominal pain Genitourinary Genitourinary: Denies dysuria Musculoskeletal Musculoskeletal: Denies arthralgias or back pain Neurologic Neurologic: Denies dizziness or focal weakness Psychiatric Psychiatric: Denies anxiety Vital Signs Vital Signs Vital Signs: 03/07/23 10:22 03/07/23 10:43 03/07/23 10:43 Temperature 102.8 F H Temperature Source Temporal Pulse Rate 125 H 121 H Respiratory Rate 38 H 28 H Blood Pressure 151/98 H Blood Pressure Mean 115 Pulse Ox 82 90 Oxygen Delivery Method Nasal Cannula Nasal Cannula Oxygen Flow Rate (L/min) 3 5 03/07/23 10:53 03/07/23 11:22 Temperature Temperature Source Pulse Rate 119 H Respiratory Rate 30 H Blood Pressure 136/82 H Blood Pressure Mean 100 Pulse Ox 93 92 Oxygen Delivery Method Nasal Cannula Nasal Cannula Oxygen Flow Rate (L/min) 5 5 Weight Weight: 47.7 kg Body Mass Index (BMI) 16.9 Physical Exam Const alert, oriented x3 and no apparent distress Constitutional Narrative: Elderly female, chronically ill-appearing with pulmonary cachexia, sitting comfortably in bed, conversing normally, no acute distress. General Appearance: cooperative and comfortable HEENT normocephalic, head/scalp atraumatic, hearing grossly normal bilaterally, nasal mucous membranes and turbinates normal and moist oral mucous membranes Eyes PERRL, EOMs intact bilaterally and conjunctivae normal Neck full ROM, no lymphadenopathy and supple Lymph Lymphatic: no lymphadenopathy noted Chest inspection of chest normal Resp Resp Narrative: Satting in low to mid 90s on 5 L nasal cannula at rest, no increased work of breathing noted. Patient does have decreased breath sounds bilaterally and mild upper airway wheezing bilaterally on exam. Cardio no murmurs and peripheral pulses 2+ throughout Cardio Narrative: Tachycardic, regular rhythm. GI normal to inspection, nondistended, normoactive bowel sounds, soft to palpation, non-tender and non-distended Back/Spine normal ROM Extremity normal to inspection, full ROM and no pedal edema Skin no rashes or lesions noted Neuro moves all extremities and no focal motor deficits Speech: speech normal Psych mental status grossly normal Results Lab / Micro Data 03/07/23 10:45 03/07/23 10:45 Labs: Laboratory Results - last 24 hr 03/07/23 10:45: WBC 15.2 H, RBC 4.44, Hgb 13.5, Hct 40.4, MCV 91.0, MCH 30.4, MCHC 33.4, RDW Std Deviation 43.8, RDW Coeff of Oral 13.1, Plt Count 309, MPV 10.3, Immature Gran % (Auto) 0.300, Neut % (Auto) 93.5 H, Lymph % (Auto) 2.0 L, [place] % (Auto) 4.1, Eos % (Auto) 0.0, Baso % (Auto) 0.1, Absolute Neuts (auto) 14.3 H, Absolute Lymphs (auto) 0.30 L, Nucleated RBC % 0, Differential Comment SCANNED, Sodium 137, Potassium 3.9, Chloride 103, Carbon Dioxide 27.0, Anion Gap 7, BUN 17, Creatinine 0.61, Estim Creat Clear Calc 39.98, Est GFR (MDRD) Af Amer 124, Est GFR (MDRD) Non-Af 102, BUN/Creatinine Ratio 27.7 H, Glucose 115 H, Lactic Acid 1.3, Calcium 8.5, Troponin I High Sens 57 H Micro: Microbiology 03/07/23 10:45 Nasal Secretion SARS-CoV-2 & FLU Antigen (Rapid) - Final Imagaing Radiology Impression Chest X-Ray 03/07/23 10:45 IMPRESSION: Airspace disease as described. Radiographic follow-up recommended. Electronically Signed: Roni Sanchez MD at 11:10 EST , Assessment & Plan Assessment/Plan (1) Community acquired pneumonia: (2) COPD with exacerbation: PLAN: Plan Patient is a 67-year-old female who presented to [facility] ED on 03/09/2023 with worsening shortness of breath. 1. Acute exacerbation of COPD suspected secondary to community-acquired pneumonia, acute hypoxia on chronic respiratory failure on home 4 L O2 Chest x-ray on admit showed marked degree of airspace disease in right midlung, right lower lobe as well as medial aspect of left lower lobe; per radiology, could represent a commendation of pneumonitis or infection superimposed on scarring. Requiring 6 L nasal cannula at rest on arrival to maintain oxygen saturations greater than 90%. WBC count 15, sinus tachycardia, low-grade fever to 99.5 F noted on admit. Patient had significant improvement in breathing with a DuoNebs breathing treatment in ED. COVID and flu negative. Respiratory PCR panel negative. Unable to produce sputum sample to this point. ? Admit under inpatient status to [facility]. Treat COPD exacerbation with IV steroids, ceftriaxone and azithromycin, scheduled DuoNebs. Wean supplemental oxygen as able. Continue home long-acting inhaler. Monitor closely. 2. Tobacco abuse ? Current smoker, 0.5 to 1 pack/day. 14 mg nicotine patch ordered on admit per patient request. Encouraged cessation. 3. Debility Patient lives at home with her boyfriend, is able to do most things around the house for self. However, she is very thin at baseline with BMI 17 on admit, presumed secondary to pulmonary cachexia. ? PT/OT/case management consulted. Chronic medical conditions: ? Hypertension, hyperlipidemia: Continue home amlodipine, atorvastatin, losartan, Lopressor. ? Depression: Stable. Continue home Celexa. ? GERD: Continue home PPI. DVT prophylaxis: Lovenox CODE STATUS: Full code, verified Expected disposition: Home, 2 to 3 days Total clinical time spent by myself addressing the patient's medical issues, reviewing all the data, and collaborating with patient's care team: 55 minutes. Charges/Coding Visit Charges Inpatient E&M: 02921 Init Hosp L2
--- NOTE | 2023-03-07 11:40 | NURSING ---
DR FOWLER FOR DR SIDHU
--- NOTE | 2023-03-07 11:44 | NURSING ---
MED SURG MOSTELLER PNEUMONIA, RESP FAILURE, LEUKOCYTOSIS
[2023-03-07] MEDS: Azithromycin 500 MG in Dextrose 5%-Water (250mL Bag) 250 ML 250 MG IV (12:06)
[2023-03-07] MEDS: 0.9% Saline Lock 10 ML Syringe IV (16:10)
[2023-03-07] MEDS: Thiamine Hydrochloride 100 MG Tablet PO ×2 (16:10→21:06)
[2023-03-07] MEDS: Budesonide Respules 0.5 MG/2 ML AMPUL.NEB. INHALATION (19:26)
[2023-03-07] MEDS: Albuterol 2.5 MG/3 ML VIAL.NEB. INHALATION (19:26)
[2023-03-07] MEDS: Atorvastatin Calcium 10 MG Tablet PO (21:06)
[2023-03-07] MEDS: Metoprolol Tartrate 25 MG Tablet PO (21:06)
[2023-03-08] VITALS (12 sets, daily range): BP systolic 127–149; BP diastolic 79–98; PULSE 72–104; RESP 18–22; TEMP 36.4–37.1; O2SAT 88–94; BMI 16.9
[2023-03-08] MEDS: Gabapentin 600 MG Tablet PO ×2 (00:08→18:52)
[2023-03-08] MEDS: Thiamine Hydrochloride 100 MG Tablet PO ×3 (04:41→20:20)
[2023-03-08] MEDS: Ipratropium/Albuterol Sulfate 3 ML AMPUL.NEB INHALATION ×4 (07:14→19:51)
[2023-03-08] MEDS: Budesonide Respules 0.5 MG/2 ML AMPUL.NEB. INHALATION ×2 (07:14→19:51)
[2023-03-08 07:43] LABS: Hematocrit 36.6 % (37-47); Mean Corp Hgb Conc 32.8 g/dL (32-36); Mean Corpuscular Hgb 30.4 pg (27.0-32.0); Mean Corpuscular Volume 92.7 fL (81-99); Mean Platelet Vol. 11.1 fl (6.2-12.0); Platelet Count 309 K/mm3 (150-450); RBC Distribution Width CV 13.2 % (11.6-14.6); RBC Distribution Width SD 45.1 fl (35.1-43.9); Red Blood Count 3.95 M/mm3 (4.2-5.4); White Blood Count 16.3 K/mm3 (4.4-11.0)
[2023-03-08] MEDS: amLODIPine 2.5 MG Tablet PO (08:12)
[2023-03-08] MEDS: Citalopram 20 MG Tablet PO (08:12)
[2023-03-08] MEDS: Pantoprazole Sodium 40 MG Tablet PO (08:12)
[2023-03-08] MEDS: Losartan Potassium 50 MG Tablet PO (08:13)
[2023-03-08] MEDS: Azithromycin 500 MG in Dextrose 5%-Water (250mL Bag) 250 ML 250 MG IV (08:13)
[2023-03-08] MEDS: Enoxaparin 40 MG/0.4 ML Syringe SC (08:13)
[2023-03-08] MEDS: Metoprolol Tartrate 25 MG Tablet PO ×2 (08:13→20:19)
[2023-03-08] MEDS: DULoxetine Hcl 60 MG Capsule PO (08:14)
[2023-03-08 08:17] LABS: Anion Gap 5 (5-15); BUN 20 mg/dL (7-18); BUN/Creat Ratio 35.7 RATIO (10-20); Calcium,Total 8.7 mg/dL (8.5-10.1); Chloride 106 mmol/L (98-107); Creatinine, Serum 0.56 mg/dL (0.55-1.02); EST Glomerular Filtration Rate 114 mL/min (>60); Est Glom Filt Rate - Afr Amer 138 mL/min (>60); Glucose 144 mg/dL (74-106); Potassium 4.1 mmol/L (3.5-5.1); Sodium Level 139 mmol/L (136-145)
[2023-03-08] MEDS: Ceftriaxone 2 GM in 0.9% Normal Saline (50mL MB+) 50 ML IV (10:56)
--- NOTE | 2023-03-08 12:55 | CASEMGMT ---
Discharge Planning A list of?HH?providers including quality and resource use data and consistent with the patient's preferred geographic region, medical needs, and insurance network were printed and provided from the [facility] Guide. Alyx Thompson, Discharge Planning Asst.
[2023-03-08] MEDS: Acetaminophen 325 MG Tablet 650 MG PO (13:30)
--- NOTE | 2023-03-08 14:20 | CASEMGMT ---
Addendum entered by Alyx Thompson 03/09/23 12:08: Discharge Planning Patient was accepted by [facility] [place]. [facility] CM updated. Alyx Thompson, Discharge Planning Asst. Original Note: Discharge Planning Per patients request, HH referrals was sent to; [facility], [facility], [facility], [facility], [facility], [facility], [facility], [facility], and [facility]. Alyx Thompson, Discharge Planning Asst.
--- NOTE | 2023-03-08 14:29 | PCM.PN.HOSP ---
Reason for Visit Reason for Visit: Diagnoses Pneumonia, unspecified organism (03/07/23) Chronic obstructive pulmonary disease with (acute) exacerbation (03/07/23) Subjective Subjective Patient seen at bedside this morning. Was resting comfortably in bed, conversing normally, no acute distress. Satting in low to mid 90s on 4 L nasal cannula, no increased work of breathing noted at rest. Patient states that she continues to have moderate dyspnea with exertion, slightly worse than her baseline. However, she does feel significantly proved since admission. Has had fairly minimal sputum production since yesterday. Denies any fevers or chills. No other acute concerns this morning. Objective Data Objective Data Vital Signs: Vital Signs Temp Pulse Resp BP Pulse Ox O2 Del Method O2 Flow Rate 98.7 F 89 18 149/98 H 94 Nasal Cannula 4 03/08/23 08:32 03/08/23 11:40 03/08/23 11:40 03/08/23 08:32 03/08/23 08:32 03/08/23 08:33 03/08/23 08:33 Oxygen Flow Rate (L/min) 4 Oxygen Delivery Method Nasal Cannula Weight: 47.6 kg Body Mass Index (BMI) 16.9 Intake & Output: Intake and Output for Last 24 Hours 03/06/23 03/07/23 03/08/23 23:59 23:59 23:59 Intake Total 1795 / 1795 655 / 655 Balance 1795 / 1795 655 / 655 Medical Nutrition Assessment Dietitian: Malnutrition Criteria Met Start: 03/08/23 11:53 Freq: Status: Active Protocol: Document 03/08/23 11:53 AG (Rec: 03/08/23 11:54 AG [id number]) Nutrition Malnutrition Evidence of Malnutrition Exists Yes Malnutrition (severe): Chronic Evidenced By Suboptimal Energy Intake ( Severe),Weight Loss (Severe) Clinical Problem Chronic Disease or Condition Related Malnutrition Etiology chronic severe malnutrition related to inadequate energy intake w/ increased energy needs d/t COPD Signs/Symptoms as evidenced by severe muscle wasting/fat loss evident per physical assessment in orbital , clavicle, acromion, and temporal areas, estimated PO intake meeting <75% of estimated energy needs > 3 months, BMI 16.9 Status Active Problem Recommendation Dietitian Recommendations/Changes will adjust diet to regular, add ensure plus high protein 120mL 4x/day w/ medpass for additional nutrition if consumed given evidence of malnutrition Lab / Micro Data 03/08/23 07:05 03/08/23 07:05 Labs: Laboratory Results - last 24 hr 03/08/23 07:05: WBC 16.3 H, RBC 3.95 L, Hgb 12.0, Hct 36.6 L, MCV 92.7, MCH 30.4, MCHC 32.8, RDW Std Deviation 45.1 H, RDW Coeff of Oral 13.2, Plt Count 309, MPV 11.1, Sodium 139, Potassium 4.1, Chloride 106, Carbon Dioxide 28.0, Anion Gap 5, BUN 20 H, Creatinine 0.56, Estim Creat Clear Calc 39.90, Est GFR (MDRD) Af Amer 138, Est GFR (MDRD) Non-Af 114, BUN/Creatinine Ratio 35.7 H, Glucose 144 H, Calcium 8.7 Micro: Microbiology 03/07/23 21:00 Sputum, Expectorated/Coughed Gram Stain - Final 03/07/23 00:00 Urine, Clean Catch Legionella Antigen - Final 03/07/23 00:00 Urine, Clean Catch Streptococcus pneumoniae Antigen (M - Final 03/07/23 15:10 Mucosa - Nasopharyngeal Respiratory Panel (PCR) - Final 03/07/23 10:45 Nasal Secretion SARS-CoV-2 & FLU Antigen (Rapid) - Final Physical Exam Const alert, oriented x3 and no apparent distress Constitutional Narrative: Elderly female, chronically ill-appearing with pulmonary cachexia, sitting comfortably in bed, conversing normally, no acute distress. General Appearance: cooperative and comfortable HEENT normocephalic, head/scalp atraumatic, hearing grossly normal bilaterally, nasal mucous membranes and turbinates normal and moist oral mucous membranes Eyes PERRL, EOMs intact bilaterally and conjunctivae normal Neck full ROM, no lymphadenopathy and supple Lymph Lymphatic: no lymphadenopathy noted Chest inspection of chest normal Resp Resp Narrative: Satting in low to mid 90s on 4 L nasal cannula at rest, no increased work of breathing noted. No wheezing or crackles noted. Breath sounds improved bilaterally. Cardio regular rate, regular rhythm, no murmurs and peripheral pulses 2+ throughout GI normal to inspection, nondistended, normoactive bowel sounds, soft to palpation, non-tender and non-distended Back/Spine normal ROM Extremity normal to inspection, full ROM and no pedal edema Skin no rashes or lesions noted Neuro moves all extremities and no focal motor deficits Speech: speech normal Psych mental status grossly normal Assessment & Plan Assessment/Plan (1) Community acquired pneumonia: (2) COPD with exacerbation: PLAN: Plan Patient is a 67-year-old female who presented to [facility] ED on 03/09/2023 with worsening shortness of breath. 1. Acute exacerbation of COPD suspected secondary to community-acquired pneumonia, acute hypoxia on chronic respiratory failure on home 4 L O2 Chest x-ray on admit showed marked degree of airspace disease in right midlung, right lower lobe as well as medial aspect of left lower lobe; per radiology, could represent a commendation of pneumonitis or infection superimposed on scarring. Requiring 6 L nasal cannula at rest on arrival to maintain oxygen saturations greater than 90%. WBC count 15, sinus tachycardia, low-grade fever to 99.5 F noted on admit. Patient had significant improvement in breathing with a DuoNebs breathing treatment in ED. COVID and flu negative. Respiratory PCR panel negative. Unable to produce sputum sample to this point. ? Patient with considerable improvement since admission. Continue IV steroids, ceftriaxone and azithromycin, scheduled DuoNebs for COPD exacerbation. Continue home long-acting inhaler. Planning for ambulatory O2 testing tomorrow morning to determine home-going oxygen requirements, with hopeful discharge home tomorrow. 2. Tobacco abuse ? Current smoker, 0.5 to 1 pack/day. 14 mg nicotine patch ordered on admit per patient request. Encouraged cessation. 3. Debility Patient lives at home with her boyfriend, is able to do most things around the house for self. However, she is very thin at baseline with BMI 17 on admit, presumed secondary to pulmonary cachexia. ? PT/OT/case management following. Planning for home with home health care on discharge. Chronic medical conditions: ? Hypertension, hyperlipidemia: Continue home amlodipine, atorvastatin, losartan, Lopressor. ? Depression: Stable. Continue home Celexa. ? GERD: Continue home PPI. DVT prophylaxis: Lovenox CODE STATUS: Full code, verified Expected disposition: Home with home health care, tomorrow Total clinical time spent by myself addressing the patient's medical issues, reviewing all the data, and collaborating with patient's care team: 35 minutes. Charges/Coding Visit Charges Inpatient E&M: 36626 Subs Hosp L2
--- NOTE | 2023-03-08 14:41 | CASEMGMT ---
RADHA BOSWELL assessment: RN CM to room for initial transition planning/care coordination assessment. RN ELBERT introduced self and role at [facility], pt voices understanding and consents to assessment. Pt is lying in bed w/O2 @ 5 l/m and noted with SOB. Kirk GARCIA, aware. Care providers, pharmacy,?and demographics verified. PCP: Dr Garcia Specialists: Dr Simpson, pulgrzegorz- Pt states she would like an appt with him. Appt has been scheduled for 04/06/23 @ 0945 by departmental secretary. Pt made aware and voices appreciation. Preferred Pharmacy: [facility] Insurance: [facility] Dual Prescription Benefit:?Yes Living Will/HPOA: Pt has LW/HPOA on file at [facility] and her sig other, Dylan Winter, is HPOA. LNOK: Dylan Winter, Sig other; Mikala Carrera, granddaughter Living Arrangements: Pt lives with sig other (Dylan) and grandson, Hi (21 yrs old) in 2-story home w/2 steps to enter. FFSU. Pt states she is indep w/ADL's and manages her own medications. Dylan has been doing most home mgnt tasks but he also works and pt states it is a lot for him. She states some from [facility] came to interview her in the past but d/t Dylan stating he could manage it on his own, they declined services. Pt states they could really use the help now and interested in referral again. Yesica MANJARREZ, made aware. Transportation: Pt states family drives and states no transportation concerns. Dylan also drives. DME: Pt has the following DME: shower chair, WW, W/C, grab bars, pulse ox, nebulizer, and O2 thru [employer]. Pt states she has been wearing it 4-5 L/M all the time, but she is not sure what she is supposed to be wearing. Per Melchor @ [employer], current orders are for 3 l/m w/exertion only. Pt states she has a concentrator and portable O2 tanks, which her family can bring in for her to go home on @ d/c. Pt states she has a medical alert bracelet, but states it costs about $50/month, it is too expensive, and she plans to return it. Pt was provided w/list of other companies that have medical alerts. She voices appreciation. Pt states no need for any further DME. HHC/SNF: Pt does not wish to go to a SNF. She wishes to return home. She has had [facility] in the past, but states she is not currently active w/them. She is interested in [facility] again for SN only, stating she does not feel she needs therapy. She declined wanting list of HHC options. Referral placed to [facility]. Per [facility], they are not in-network w/pt's insurance. Alyx, materials planner, made aware and has provided pt list of other HHC options and is working on referrals. Palliative: Pt was active w/Palliative in the past but is not currently active w/them. She states is not interested in referral at this time, but would take information, and may reconsider. Info provided. CCN: Discussed CCN and pt interested in referral. She was made aware CCN would not come while receiving HHC, that this service would be once [facility] has discharged her. She voices understanding. Order placed for referral. Pt states no further concerns with going home at time of discharge. Pt is retired. Pt states smokes about 1/2 PPD of cigarettes and she is interested in smoking cessation information. Porsche, RT, made aware. Pt states she typically drinks 2 beers/day about 5 days/week and denies wanting resources to stop drinking. CM to follow for any further discharge planning/needs. Advised pt to ask for CM if any further questions/concerns/needs arise, voices understanding. D/C PLAN: Home w/HHC, family support, and discharge plans in place. Follow for increase in O2 needs. Pt will need tested on RA @ rest and starting w/3 l/m w/exertion @ d/c. New O2 orders to be faxed to [facility] if pt requires any O2 @ rest or more then 3 l/m w/exertion. SW for [facility] referral. CCN referral placed. Jesse HERRERA RN CM
--- NOTE | 2023-03-08 16:07 | CASEMGMT ---
SW submitted a referral to [facility] for patient via [facility] website. Porsche Ruiz CLUBHOUSE ATTENDANT ESA
[2023-03-08] MEDS: Atorvastatin Calcium 10 MG Tablet PO (20:19)
[2023-03-08] MEDS: 0.9% Saline Lock 10 ML Syringe IV (20:22)
[2023-03-09 04:21] VITALS: BMI 16.7
[2023-03-09 05:00] VITALS: BP 154/97; PULSE 100; RESP 24; TEMP 36.6; O2SAT 98
[2023-03-09] MEDS: 0.9% Saline Lock 10 ML Syringe IV ×2 (05:25→10:01)
[2023-03-09] MEDS: Thiamine Hydrochloride 100 MG Tablet PO (05:26)
[2023-03-09 07:22] VITALS: O2SAT 88; O2SAT 89; O2SAT 90
[2023-03-09 08:02] VITALS: PULSE 71; RESP 18
[2023-03-09] MEDS: Ipratropium/Albuterol Sulfate 3 ML AMPUL.NEB INHALATION ×2 (08:02→11:26)
[2023-03-09] MEDS: Budesonide Respules 0.5 MG/2 ML AMPUL.NEB. INHALATION (08:02)
[2023-03-09 08:18] LABS: Hematocrit 34.6 % (37-47); Hemoglobin 11.1 g/dL (12.0-15.0); Mean Corp Hgb Conc 32.1 g/dL (32-36); Mean Corpuscular Hgb 29.9 pg (27.0-32.0); Mean Corpuscular Volume 93.3 fL (81-99); Platelet Count 365 K/mm3 (150-450); RBC Distribution Width CV 13.3 % (11.6-14.6); RBC Distribution Width SD 45.5 fl (35.1-43.9); Red Blood Count 3.71 M/mm3 (4.2-5.4); White Blood Count 15.2 K/mm3 (4.4-11.0)
[2023-03-09 08:29] LABS: Anion Gap 6 (5-15); BUN 24 mg/dL (7-18); BUN/Creat Ratio 47.2 RATIO (10-20); Calcium,Total 8.8 mg/dL (8.5-10.1); Chloride 104 mmol/L (98-107); Creatinine, Serum 0.51 mg/dL (0.55-1.02); EST Glomerular Filtration Rate 127 mL/min (>60); Est Glom Filt Rate - Afr Amer 154 mL/min (>60); Estimated Creatinine Clearance 39.56 ml/min; Glucose 144 mg/dL (74-106); Potassium 3.9 mmol/L (3.5-5.1); Sodium Level 137 mmol/L (136-145)
[2023-03-09] MEDS: Losartan Potassium 50 MG Tablet PO (09:46)
[2023-03-09] MEDS: Citalopram 20 MG Tablet PO (09:46)
[2023-03-09 09:47] VITALS: PULSE 88
[2023-03-09] MEDS: Pantoprazole Sodium 40 MG Tablet PO (09:47)
[2023-03-09] MEDS: Metoprolol Tartrate 25 MG Tablet PO (09:47)
[2023-03-09] MEDS: DULoxetine Hcl 60 MG Capsule PO (09:47)
[2023-03-09] MEDS: amLODIPine 2.5 MG Tablet PO (09:47)
[2023-03-09] MEDS: Enoxaparin 40 MG/0.4 ML Syringe SC (09:47)
[2023-03-09] MEDS: Ceftriaxone 2 GM in 0.9% Normal Saline (50mL MB+) 50 ML IV (10:00)
[2023-03-09] MEDS: Azithromycin 500 MG in Dextrose 5%-Water (250mL Bag) 250 ML 250 MG IV (10:46)
[2023-03-09 11:00] VITALS: BP 136/89; PULSE 88; RESP 20; TEMP 36.6; O2SAT 94
--- NOTE | 2023-03-09 11:08 | PCM.DC ---
Discharge Instructions Diet Discharge Diet: No restrictions Activity Discharge Activity: Return to Normal Activity Weight Bearing Status: Full weight bearing Follow Up Care Please Follow Up With: May Garcia MD When: As needed Test Results: Test results from this visit will be discussed in further detail at your follow-up appointment, if applicable. Pending Tests Upon Discharge: None Discharge Plan Admission Admit Date/Time: 03/07/23 11:42 Primary Reason for Your Visit: Shortness of breath Attending Provider: Declan Lopez Primary Care Provider: May Garica Instructions Additional Instructions / Restrictions: Take medications as unable to complete your courses of steroids and antibiotics. Use nicotine patches on a daily basis. The home health care team will be out to see you in the next 1 to 2 days. Follow-up with your primary care doctor as needed. Discharge Orders/Prescriptions Prescriptions: New nicotine 14 mg/24 hr Patch 24 Hour 14 mg transdermal DAILY 30 Days Qty: 30 0RF amoxicillin-pot clavulanate 875-125 mg tablet 1 tab PO BID 5 Days Qty: 10 0RF prednisone 20 mg tablet 40 mg PO DAILY 3 Days Qty: 6 0RF Continued omeprazole 40 MG capsule,delayed release(DR/EC) 40 mg PO DAILY atorvastatin 10 mg tablet 10 mg PO QHS Trelegy Ellipta 100-62.5-25 mcg blister with device 1 inh INHALATION DAILY losartan 50 mg tablet 50 mg PO DAILY albuterol sulfate 2.5 mg /3 mL (0.083 %) solution for nebulization 2.5 mg inhalation Q4H PRN (Reason: WHEEZING/SHORTNESS OF BREATH ) albuterol sulfate 90 mcg/actuation HFA aerosol inhaler 2 puff inhalation Q4H PRN (Reason: SHORTNESS OF BREATH ) Patient Comments: PER PT HOME MED LIST, PT INHALES ONE PUFF BY MOUTH AND INTO THE LUNGS ONCE DAILY cyclobenzaprine 5 mg tablet 5 mg PO TID PRN (Reason: MUSCLE SPASMS) Patient Comments: PER PTS HOME MED LIST, PT TAKES ONE TABLET BY MOUTH ONCE DAILY duloxetine 60 mg capsule,delayed release(DR/EC) 60 mg PO DAILY gabapentin 600 mg tablet 600 mg PO BID Referrals / Follow Up: Pieter Simpson MD [Med Staff - Active Staff] - 04/06/23 9:45 am May Garcai MD [Primary Care Provider] - Disposition Disposition (needs filled in before D/C Order can be placed): Home Health Service
--- NOTE | 2023-03-09 11:13 | PCM.DC.SUM ---
Providers Date of Admission: 03/07/23 Date of Discharge: 03/09/23 Primary Care Physician: Dr. May Garcia MD Reason For Visit: COPD EXACERBATION DUE TO CAP Diagnosis Discharge Diagnosis (1) Community acquired pneumonia: Status: Inactive Code(s): J18.9 - Pneumonia, unspecified organism (2) COPD with exacerbation: Status: Resolved Code(s): J44.1 - Chronic obstructive pulmonary disease with (acute) exacerbation Medications at Discharge Home Medications omeprazole 40 mg capsule,delayed release 40 mg PO DAILY ACID REFLUX 10/13/15 atorvastatin 10 mg tablet 10 mg PO QHS CHOLESTEROL 10/25/20 albuterol sulfate 2.5 mg/3 mL (0.083 %) solution for nebulization 2.5 mg inhalation Q4H PRN WHEEZING/SHORTNESS OF BREATH 03/07/23 albuterol sulfate 90 mcg/actuation aerosol inhaler 2 puff inhalation Q4H PRN SHORTNESS OF BREATH 03/07/23 cyclobenzaprine 5 mg tablet 5 mg PO TID PRN MUSCLE SPASMS 03/07/23 duloxetine 60 mg capsule,delayed release 60 mg PO DAILY DEPRESSION 03/07/23 fluticasone fur. 100 mcg-umeclid 62.5 mcg-vilant 25 mcg inhalat.powder (Trelegy Ellipta) 1 inh inhalation DAILY COPD 03/07/23 gabapentin 600 mg tablet 600 mg PO BID PAIN 03/07/23 losartan 50 mg tablet 50 mg PO DAILY BLOOD PRESSURE 03/07/23 amoxicillin 875 mg-potassium clavulanate 125 mg tablet 1 tab PO BID 5 days #10 tabs 03/09/23 nicotine 14 mg/24 hr daily transdermal patch 14 mg transdermal DAILY 30 days #30 ea 03/09/23 prednisone 20 mg tablet 40 mg (2 x 20 mg) PO DAILY 3 days #6 tabs 03/09/23 Hospital Course Operations None Procedures EKG and - (Chest x-ray) Summary of Care Provided Minutes Spent on Discharge: 35 Hospital Course: Patient is a 67-year-old female who presented to [facility] ED on 03/09/2023 with worsening shortness of breath. Short hospital course as noted below. Patient discharged home with home health care in stable condition on 03/09. 1. Acute exacerbation of COPD suspected secondary to community-acquired pneumonia, acute hypoxia on chronic respiratory failure on home 4 L O2 Chest x-ray on admit showed marked degree of airspace disease in right midlung, right lower lobe as well as medial aspect of left lower lobe; per radiology, could represent a commendation of pneumonitis or infection superimposed on scarring. Requiring 6 L nasal cannula at rest on arrival to maintain oxygen saturations greater than 90%. WBC count 15, sinus tachycardia, low-grade fever to 99.5 F noted on admit. Patient had significant improvement in breathing with a DuoNebs breathing treatment in ED. COVID and flu negative. Respiratory PCR panel negative. Sputum culture grew alpha hemolytic Streptococcus. ? Patient contacted improvement with IV steroids, IV antibiotics and scheduled DuoNebs while admitted. O2 ambulatory test prior to discharge done, patient did not require more oxygen than her previous home requirements. Discharged with plan to complete 5-day course of steroids and 70 course of antibiotics. Continued home long-acting inhaler. 2. Tobacco abuse ? Current smoker, 0.5 to 1 pack/day. 14 mg nicotine patch ordered on admit per patient request. Sent prescription for 14 mg nicotine patches on discharge. Encouraged cessation. 3. Debility Patient lives at home with her boyfriend, is able to do most things around the house for self. However, she is very thin at baseline with BMI 17 on admit, presumed secondary to pulmonary cachexia. ? PT/OT/case management followed. Patient qualified for home health care on discharge. Chronic medical conditions: ? Hypertension, hyperlipidemia: Continued home amlodipine, atorvastatin, losartan, Lopressor. ? Depression: Stable. Continued home Celexa. ? GERD: Continued home PPI. Total clinical time spent by myself addressing the patient's discharge needs: 35 minutes. Physical Exam Const alert, oriented x3 and no apparent distress Constitutional Narrative: Elderly female, chronically ill-appearing with pulmonary cachexia, sitting comfortably in bed, conversing normally, no acute distress. General Appearance: cooperative and comfortable HEENT normocephalic, head/scalp atraumatic, hearing grossly normal bilaterally, nasal mucous membranes and turbinates normal and moist oral mucous membranes Eyes PERRL, EOMs intact bilaterally and conjunctivae normal Neck full ROM, no lymphadenopathy and supple Lymph Lymphatic: no lymphadenopathy noted Chest inspection of chest normal Resp Resp Narrative: Satting in low to mid 90s on 4 L nasal cannula at rest, no increased work of breathing noted. No wheezing or crackles noted. Breath sounds improved bilaterally. Cardio regular rate, regular rhythm, no murmurs and peripheral pulses 2+ throughout GI normal to inspection, nondistended, normoactive bowel sounds, soft to palpation, non-tender and non-distended Back/Spine normal ROM Extremity normal to inspection, full ROM and no pedal edema Skin no rashes or lesions noted Neuro moves all extremities and no focal motor deficits Speech: speech normal Psych mental status grossly normal Medical Records Data Medical Nutrition Assessment Dietitian: Malnutrition Criteria Met Start: 03/08/23 11:53 Freq: Status: Active Protocol: Document 03/08/23 11:53 AG (Rec: 03/08/23 11:54 [id number]) Nutrition Malnutrition Evidence of Malnutrition Exists Yes Malnutrition (severe): Chronic Evidenced By Suboptimal Energy Intake ( Severe),Weight Loss (Severe) Clinical Problem Chronic Disease or Condition Related Malnutrition Etiology chronic severe malnutrition related to inadequate energy intake w/ increased energy needs d/t COPD Signs/Symptoms as evidenced by severe muscle wasting/fat loss evident per physical assessment in orbital , clavicle, acromion, and temporal areas, estimated PO intake meeting <75% of estimated energy needs > 3 months, BMI 16.9 Status Active Problem Recommendation Dietitian Recommendations/Changes will adjust diet to regular, add ensure plus high protein 120mL 4x/day w/ medpass for additional nutrition if consumed given evidence of malnutrition Weight / BMI Weight Weight: 47.2 kg Body Mass Index (BMI) 16.7 ABG / Lab / Microbiology Data 03/09/23 07:10 03/09/23 07:10 Laboratory: Laboratory Results - last 24 hr 03/09/23 07:10: WBC 15.2 H, RBC 3.71 L, Hgb 11.1 L, Hct 34.6 L, MCV 93.3, MCH 29.9, MCHC 32.1, RDW Std Deviation 45.5 H, RDW Coeff of Oral 13.3, Plt Count 365, MPV 11.0, Sodium 137, Potassium 3.9, Chloride 104, Carbon Dioxide 27.0, Anion Gap 6, BUN 24 H, Creatinine 0.51 L, Estim Creat Clear Calc 39.56, Est GFR (MDRD) Af Amer 154, Est GFR (MDRD) Non-Af 127, BUN/Creatinine Ratio 47.2 H, Glucose 144 H, Calcium 8.8 Microbiology: Microbiology 03/07/23 21:00 Sputum, Expectorated/Coughed Gram Stain - Final 03/07/23 21:00 Sputum, Expectorated/Coughed Respiratory Culture - Preliminary Alpha Hemolytic Streptococcus 03/07/23 10:45 Blood Culture (Wb) - Anticubital Right Blood Culture - Preliminary No growth in 48 hours. 03/07/23 00:00 Urine, Clean Catch Legionella Antigen - Final 03/07/23 00:00 Urine, Clean Catch Streptococcus pneumoniae Antigen (M - Final 03/07/23 15:10 Mucosa - Nasopharyngeal Respiratory Panel (PCR) - Final 03/07/23 10:45 Nasal Secretion SARS-CoV-2 & FLU Antigen (Rapid) - Final D/C Instructions Discharge Diet: No restrictions Weight Bearing Status: Full weight bearing Pending Tests Upon Discharge: None Please Follow Up With: May Garcia MD When: As needed Meaningful Use Info Meaningful Use Diagnoses (Choose all that apply): None applicable Discharge Plan Admission Admit Date/Time: 03/07/23 11:42 Primary Reason for Your Visit: Shortness of breath Attending Provider: Declan Lopez Primary Care Provider: May Garcia Instructions Additional Instructions / Restrictions: Take medications as unable to complete your courses of steroids and antibiotics. Use nicotine patches on a daily basis. The home health care team will be out to see you in the next 1 to 2 days. Follow-up with your primary care doctor as needed. Discharge Orders/Prescriptions Prescriptions: New nicotine 14 mg/24 hr Patch 24 Hour 14 mg transdermal DAILY 30 Days Qty: 30 0RF amoxicillin-pot clavulanate 875-125 mg tablet 1 tab PO BID 5 Days Qty: 10 0RF prednisone 20 mg tablet 40 mg PO DAILY 3 Days Qty: 6 0RF Continued omeprazole 40 MG capsule,delayed release(DR/EC) 40 mg PO DAILY atorvastatin 10 mg tablet 10 mg PO QHS Trelegy Ellipta 100-62.5-25 mcg blister with device 1 inh INHALATION DAILY losartan 50 mg tablet 50 mg PO DAILY albuterol sulfate 2.5 mg /3 mL (0.083 %) solution for nebulization 2.5 mg inhalation Q4H PRN (Reason: WHEEZING/SHORTNESS OF BREATH ) albuterol sulfate 90 mcg/actuation HFA aerosol inhaler 2 puff inhalation Q4H PRN (Reason: SHORTNESS OF BREATH ) Patient Comments: PER PT HOME MED LIST, PT INHALES ONE PUFF BY MOUTH AND INTO THE LUNGS ONCE DAILY cyclobenzaprine 5 mg tablet 5 mg PO TID PRN (Reason: MUSCLE SPASMS) Patient Comments: PER PTS HOME MED LIST, PT TAKES ONE TABLET BY MOUTH ONCE DAILY duloxetine 60 mg capsule,delayed release(DR/EC) 60 mg PO DAILY gabapentin 600 mg tablet 600 mg PO BID Referrals / Follow Up: Pieter Simpson MD [Med Staff - Active Staff] - 04/06/23 9:45 am May Garcia MD [Primary Care Provider] - Disposition Disposition (needs filled in before D/C Order can be placed): Home Health Service Charges/Coding Visit Charges Inpatient E&M: 99112 Disch Hosp >30min
--- NOTE | 2023-03-09 11:36 | CASEMGMT ---
Addendum entered by Gabriella Messina 03/09/23 12:19: RADHA BOSWELL into pt room, pt sitting up in bed using IS. Pt is aware of oxygen requirement change. She states she has a portable tank in her car that her family will bring in when she dc's. Pt is aware that [facility] has accepted her for care and will be in touch to schedule an appt. Pt denies any further needs at this time. Addendum entered by Gabriella Messina 03/09/23 11:51: Updated rx and oxygen testing sent to [facility] via [facility] at this time. Original Note: The following agencies declined pt for services: [facility], [facility], [facility], [facility], [facility], [facility], [facility]. [facility] is checking to see if they are able to take pt and [facility] has not responded via [facility]. Pt requires increased oxygen needs for dc. Referral sent to [facility] at this time.
--- NOTE | 2023-03-09 12:07 | CASEMGMT ---
Discharge instructions sent to [facility]. Hafsa Barajas RN, CM
--- NOTE | 2023-03-27 10:01 | CCN.REFER ---
PATIENT AGREES TO [facility]N SERVICES. [facility] WILL SEE WEEKLY FOR EDUCATION/VS MONITORING.
== END 2023-03-09 14:09 | disposition home health service (06) | DRG 193 ==
LOC: ED 11:53 → MS3 14:11
PROVIDERS: Admitting Provider Hospitalist; Emergency Provider Emergency Medicine; PCP Internal Medicine; Visit Provider Hospitalist
DX: J18.9 Pneumonia, unspecified organism (principal); E43 Unspecified severe protein-calorie malnutrition; J96.11 Chronic respiratory failure with hypoxia; J44.0 Chronic obstructive pulmonary disease with (acute) lower respiratory infection; J44.1 Chronic obstructive pulmonary disease with (acute) exacerbation; Z68.1 Body mass index [BMI] 19.9 or less, adult; I10 Essential (primary) hypertension; F32.A Depression, unspecified; E78.5 Hyperlipidemia, unspecified; K21.9 Gastro-esophageal reflux disease without esophagitis; F17.210 Nicotine dependence, cigarettes, uncomplicated; R53.81 Other malaise; Z11.52 Encounter for screening for COVID-19; Z79.51 Long term (current) use of inhaled steroids; Z99.81 Dependence on supplemental oxygen; Z79.899 Other long term (current) drug therapy
CPT/HCPCS: 36415; 71045; 80048; 83605; 84484; 85025; 85027; 87040; 87070; 87077; 87186; 87205; 87428; 87449; 87633; 93005; 94640; 94668; 97802; 99285; 99406; J7030; A4216; J0696

== ENCOUNTER → 2023-06-18 | Outpatient (CLI) | payer MEDICARE, SELFPAY ==
--- NOTE | 2023-06-18 13:02 | CT_ITS ---
STUDY: CT CHEST WITHOUT CONTRAST REASON FOR EXAM: Female, 67 years old. SOB. COPD. Patient smoked 1 pack per day for 54 years. RADIATION DOSAGE (If Supplied By Facility): CTDIvol = ( 5.16 ) mGy, DLP = ( 165.35 ) mGycm TECHNIQUE: Transaxial imaging was performed without the administration of intravenous contrast material. Multiplanar coronal and sagittal images were reformatted. Individualized dose optimization techniques were used for this CT. COMPARISON: Comparison is made with prior study dated September 10, 2021. FINDINGS: CHEST Stable scarring in the right upper lobe. Stable 7.6 mm x 5.3 mm slightly spicular nodule in the anterior aspect of the right upper lobe as seen on axial image #36. There is hyperinflation of the lungs consistent with chronic obstructive lung disease (COPD). Centrilobular emphysematous changes with bullous formation seen in the lungs more prominent in the upper lobes. There is a 1 cm x 0.8 cm spiculated nodule in the superior segment of the right lower lobe as seen on axial image #46 and coronal image #39. A neoplastic process should be ruled out. Correlation with a PET scan is recommended for further evaluation. 2 mm partially calcified nodule seen in the posterior medial aspect of the superior segment of the left lower lobe as seen on axial image #25. There is volume loss in the infiltrate in the posterior medial segment of the left lower lobe. There is no demonstrated pleural abnormality. There are calcifications of the coronary arteries. There are small lymph nodes within the mediastinum, which are normal in size and morphology most compatible with reactive lymph hyperplasia. Normal hilar regions. Normal unenhanced pulmonary arteries. There is atherosclerotic calcification of the aortic arch with tortuosity and elongation of the aortic arch and descending thoracic aorta. There are multi-level degenerative changes of the thoracic spine. There is a 3.8 mm nonobstructive calculus in the upper pole calyx of the right kidney. CT/Chest without Contrast IMPRESSION: 1 cm x 0.8 cm spiculated nodule in the superior segment of the left lower lobe. A neoplastic process should be ruled out. Correlation with the PET scan recommended. Volume loss and infiltration in the posterior medial segment of the left lower lobe. Electronically Signed: Roni Sanchez MD at 14:24 EDT ,
== END | disposition home or self-care (01) ==
PROVIDERS: PCP Internal Medicine; Visit Provider Nurse Practitioner
DX: R06.02 Shortness of breath (principal); R09.02 Hypoxemia
CPT/HCPCS: 71250

== ENCOUNTER → 2023-07-31 | Outpatient (CLI) | payer MEDICARE, SELFPAY ==
--- NOTE | 2023-07-31 10:00 | PET_ITS ---
EXAMINATION: FDG PET-CT INDICATIONS: A 67-year-old female with history of pulmonary nodularity. COMPARISON EXAMINATION: CT of the chest report dated 06/18/23 INDEX LESION SIZE SUV INTERPRETATION Left lower lung field, left lower lobe 28.7-mm 10.0 Fulfills quantitative criteria for viable neoplasm Right lateral neck level II-A 7.7-mm 6.84 Fulfills quantitative criteria for viable neoplasm with single point technique Left axilla 5.2-mm (largest) 7.06 (max) Fulfills quantitative criteria for viable neoplastic infiltration Right lower lung field, right lower lobe 7.83 Quantitative criteria for viable neoplasm are not fulfilled TECHNIQUE: Following the intravenous administration of 14.28 mCi of F-18 deoxyglucose via the left wrist, multiplanar image acquisitions of the neck, chest, abdomen and pelvis to level of mid thigh, obtained at one hour post radiopharmaceutical administration contemporaneously interpreted with the current CT of the neck, chest, abdomen and pelvis, to level of mid thigh, dated 07/31/[address] of the chest report dated 06/18/23 reveals: BLOOD GLUCOSE LEVEL:?? 116 mg/dl?HEIGHT:?56 inches?WEIGHT: 112 lbs. FINDINGS: Head/Neck: Enhanced tracer uptake is noted in the right lateral neck involving level II-A generating a calculated maximal standard uptake value of 6.8. The maximal axial diameter of the metabolic, morphologic abnormality is 7.7-mm. The visualized portion of the cerebral cortical-subcortical structures demonstrate symmetric and preserved glucose metabolism. CHEST: Facilitated uptake is noted in the left lower lung field, left lower lobe. The calculated maximal standard uptake value is 10.0. The maximal axial diameter of the corresponding parenchymal density is 28.7-mm. Facilitated FDG concentration is noted in the left axillary region generating a calculated maximal standard uptake value of 7.06. The maximal axial diameter of the corresponding largest soft tissue density is 5.2-mm. A subtle focus of increased radiopharmaceutical concentration is defined in the superior segment of the right lower lobe. The calculated maximal standard uptake value is 0.83. Prominent radiopharmaceutical concentration is identified in the left ventricular myocardium commensurate with the [place]. Pertinent chest CT findings are as follows. There is atherosclerotic calcification defined in the thoracic aorta without evidence of dilatation-aneurysm formation. Coronary arterial calcification is observed. Emphysematous changes are defined in the bilateral upper-mid lung zones. No additional parenchymal densities are noted with increased FDG uptake. Additional left axillary and visualized right axillary soft tissue densities are ametabolic. There are no additional parenchymal densities-nodules defined in the right and left hemithorax with discernible increased FDG uptake. Abdomen/Pelvis: Normal physiologic distribution of the radiopharmaceutical is apparent in the hepatic (2.0) and splenic parenchyma, both renal units, bladder and visualized intestinal tract. The abdomen and pelvis CT findings are as follows. There is atherosclerotic calcification defined in the abdominal aorta without evidence of dilatation-aneurysm formation. Abdominal-pelvic arterial calcification is observed. Bilateral inguinal soft tissue densities are ametabolic. The uterus appears surgically absent. Skeletal: Degenerative changes are noted in the cervical, thoracic and lumbar spine without evidence of increased radiopharmaceutical concentration. PET/PET/CT Tumor Base -Thigh Init IMPRESSION: 1. ABNORMAL EXAMINATION INDICATIVE OF MALIGNANT VIABLE NEOPLASM. 2. Increased radiopharmaceutical concentration defined in the left lower hemithorax pulmonary parenchyma, left lower lobe fulfills quantitative criteria for malignant transformation. Histopathologic investigation is recommended. (Pepe et al, Annals of Internal Medicine, 138:724, 2003). 3. Enhanced tracer uptake noted in the right lateral neck and left axilla fulfill quantitative criteria for viable neoplasm. 4. The subtle parenchymal density noted in the right mid posterior lung field, superior segment of the right lower lobe, does not fulfill quantitative criteria for malignant transformation. Electronic Signature Rolo Nunn D.O. Accurate Quantification of SUVs for this report are calculated using the exclusive [employer] Technology, ([place].S. Patent No. [phone] [place] patent [phone] ). Standardization and correction of the FDG SUV metric exclusively available with [employer] intellectual property, allow for vendor non-specific objective quantitative sequential FDG PET-CT comparison and otherwise unobtainable optimization of the sensitivity and specificity of the examination. [email or web address] Electronically Signed: Rolo Nunn DO at 8:01 EDT ,
== END | disposition home or self-care (01) ==
PROVIDERS: PCP Internal Medicine
DX: R91.8 Other nonspecific abnormal finding of lung field (principal)
CPT/HCPCS: 78815; A9552

== ENCOUNTER 2023-08-16 07:55 | Outpatient (CLI) | payer MEDICARE, SELFPAY ==
[2023-08-16] VITALS (20 sets, daily range): BP systolic 95–187; BP diastolic 72–124; PULSE 73–100; RESP 18–20; TEMP 36.6; O2SAT 92–100; BMI 16.9
--- NOTE | 2023-08-16 | IMM_PTH ---
PATIENT: SPENCER MENDES LOC: CT U#:[id number] AGE/SX: 68/F ROOM: RE08/16/[address]: Dr. Alma Bentley MD : 1955 BED: DIS: 08/16/2023 SPEC #: [id number] RECD: 08/17/23 09:22 STATUS: MINDY REQ #: [id number] TEETEE: 08/16/23 00:[address]: Alma Bentley DEPT: IMMUNOHISTOCHEMISTRY RECD BY: Israel Guerrero ENTERED: 08/17/23 09:26 SP TYPE: IMMUNO OTHR DR: Dr. May Garcia MD Tissues: Lung, NOS Procedures: RCC (add) NAPSIN A (add) CD56 (add) CEA (add) CHROMO (add) CK20 (add) CK5-6 (add) CK7 (add) CK8 (add) HEP PAR (add) KI-67 (add) P16 (add) P53 (add) TTF1 (add) Vimentin (add) Pankeratin (initial) P40 (add) CDX2 (add) MOC-31 (add) S-100 (add) PHYSICIAN & INSTITUTION [place] [id number] SPECIMEN INFORMATION: Tissue Source: Lung biopsy Clinical Info: Left lung nodule Specimen Number: [id number] CPT code: 60923,20981p78 METHODOLOGY: Deparaffinized sections of prefer/formalin-fixed tissue or PAP/DQ stained slides are incubated with monoclonal/polyclonal antibodies/oligonucleotide probes. Localization is made via biotin free immunoperoxidase method. Appropriate controls are performed and reacted as expected. Results on target cell population are indicated in the following table: RESULTS: ANTIBODY / CLONE RESULT AE1-3 (AE1/AE3/PCK26) positive CK7 (OV-TL12/30) negative CK8 (68uhqhH62) positive, focal, dim CK20 (KS20.8) negative CDX2 (BDO5698L) negative MOC-31 (4561) negative Vimentin (V9) negative S-100 (4C4.9) negative CD56 (123C3.D5) negative Chromo (LK2H10) negative TTF-1 (8G7G3/1) negative Napsin A (Rabbit Polyclonal) negative HepPar (OCh1E5) negative RCC (PN-15) negative CK5-6 (D5 & 1684) positive P40 (BC28) positive CEA (11-7/TF-3HB-1) negative P16 (E6H4) positive, block -like P53 (DO-7) positive, >90% Ki-67 (30-9) positive,85% These tests were developed and their performance characteristics determined by [facility]. They may not have been cleared or approved by the U.S. Food and Drug Administration. The FDA has determined that such clearance or approval is not necessary. The above immunohistochemical/dualISH markers are ordered and reviewed by the Pathologist. INTERPRETATION: Lung mass, biopsy: Squamous cell carcinoma. AM/mr 08/21/2023
--- NOTE | 2023-08-16 | ASPIGT_PTH ---
PATIENT: SPENCER MENDES LOC: [place] U#:[id number] AGE/SX: 68/F ROOM: RE08/16/[address]: Dr. Alma Bentley MD : 1955 BED: DIS: 08/16/2023 SPEC #: [id number] RECD: 08/16/23 10:20 STATUS: MINDY CAROLIN #: [id number] TEETEE: 08/16/23 00:[address]: Alma Bentley DEPT: SURGICAL PATHOLOGY RECD BY: Oriana Ibanez ENTERED: 08/16/23 10:20 SP TYPE: ASP RAD OTHR DR: Dr. May Garcia MD Tissues: Lung, NOS Procedures: FNA Specimen Adequacy Special Stain Group II Surgery Specimen Level IV Imprint (control) HEADER OPERATION: Left lung biopsy PRE-OP DIAGNOSIS: Left lung nodule TISSUE SUBMITTED: 20-guage x9 MICROSCOPIC DIAGNOSIS Left lung mass, CT guided core biopsy: Squamous cell carcinoma. See comment. AM/ 08/17/2023 COMMENT The specimen is evaluated at the time of biopsy by Dr. Yanes. Immediate Evaluation = #1- Negative for malignant cells. #2- Negative for malignant cells. #3- Atypical epithelioid cells suspicious for malignancy. Immunohistochemistry ([id number]) supports the above diagnosis. MICROSCOPIC DESCRIPTION Slides are reviewed. GROSS DESCRIPTION Received is one container labeled with the patient's name and not further designated. The specimen consists of multiple irregular fragments of light to dark villar soft tissue measuring in aggregate 1.0 x 0.5 x <0.1cm. The specimen is totally submitted in one cassette. / 08/16/2023 TC:0 CPT:38790 ADDENDUM ADDENDUM ADDENDUM ADDENDUM ADDENDUM ADDENDUM 09/19/2023 09:11 ADDENDUM 09/19/2023 09:11 ADDENDUM 09/19/2023 09:11 ADDENDUM 09/19/2023 09:11 ADDENDUM 09/19/2023 09:11 PD-L1 (KEYTRUDA) IMMUNOHISTOCHEMICAL ANALYSIS FROM [facility] RESULTS: Tumor proportion score: 15% / POSITIVE Please see complete report in e-chart or EMR
[2023-08-16] MEDS: 0.9% Normal Saline (250mL Bag) 250 ML 15 ML IV (09:07)
[2023-08-16] MEDS: Midazolam 2 MG/2 ML Syringe IV ×2 (09:08→09:17)
[2023-08-16] MEDS: fentaNYL 100 MCG/2 ML Ampul IV (09:09)
--- NOTE | 2023-08-16 09:15 | RAD_ITS ---
STUDY: X-RAY CHEST REASON FOR EXAM: Female, 68 years old. Status post lung biopsy. Evaluate for complications. TECHNIQUE: Frontal inspiration and expiration views of the chest.. COMPARISON: Chest CT dated June 18, 2023 and PET/CT dated July 31, 2023. FINDINGS: Hyperinflation with diffuse interstitial pattern. Cardiomegaly. Inspiration and expiration views of the chest show no pneumothorax. No abnormality of the visualized soft tissue structures of the upper abdomen. RAD/Chest Insp/Exp 2 View IMPRESSION: Cardiomegaly, hyperinflation, diffuse interstitial pattern and no complications from the left lung biopsy noted. Electronically Signed: Jai Madera MD at 10:37 EDT ,
[2023-08-16] MEDS: Lidocaine 2% (20 ml mdv) 20 ML Vial INFILT (09:27)
--- NOTE | 2023-08-16 09:54 | PCM.OP.PRO ---
Procedure Report Date of Procedure: 08/16/23 Assessment & Plan Assessment/Plan (1) Lung mass: PLAN: PROCEDURE: CT GUIDED CORE NEEDLE LUNG BIOPSY ORDERING PROVIDER: Dr. Alma Bentley INDICATION: Female, 68 years old. Left lower lung mass. PROVIDER: LYNDA Pérez CONSENT: Written informed consent was obtained having explained the risks, benefits and alternatives in detail with the patient who accepted the risks and agreed to proceed. Laboratory review and clinical assessment was performed. PRE-PROCEDURE SEDATION ASSESSMENT: Current history and physical dictated by referring physician and reviewed. No clinical changes since date of exam. Patient has an ASA Class of 3. PROCEDURAL SEDATION PROTOCOL: The Drugs used were: 2 mg Versed, IV, and 50 mcg Fentanyl, IV. The sedation time was: 39 minutes, starting at 9:08 AM and terminated at 9:47 AM. The procedural sedation protocol was independently monitored by the department nurse. RADIATION DOSAGE (If Supplied By Facility): CTDIvol = 14.46 mGy, DLP = 262.33 mGycm Individualized dose optimization techniques were used for this CT. TECHNIQUE: The patient was placed in a prone position. A noncontrast CT was performed to localize the lesion in the left lower lobe. The skin surface was prepped and draped in a sterile fashion. 2% lidocaine was used for local anesthesia. Using CT guidance, a 20-gauge coaxial biopsy device was advanced to the periphery of the lesion. A total of 9 core specimens were obtained. Specimens were microscopically reviewed by pathology in the CT suite and placed in formalin solution. BioSentry tract sealant system was deployed at the biopsy site, and the biopsy needle was removed. A sterile occlusive dressing was applied to the biopsy site. The patient tolerated the procedure well. An immediate chest xray was ordered, per protocol. A negative biopsy does not exclude malignancy. Further imaging or clinical followup based on patient condition and degree of clinical suspicion for malignancy. Suggest rebiopsy, if biopsy results do not match with clinical scenario. IMPRESSION: 1. CT directed core needle biopsy of left lower lobe nodule using CT image guidance with image documentation as described. Pathology results are pending. 2. Procedural Sedation protocol utilized with independent monitoring by the department nurse. Procedures Radiology Radiology CT Procedures: 76362 Biopsy Lung
--- NOTE | 2023-08-16 11:40 | RAD_ITS ---
STUDY: X-RAY CHEST REASON FOR EXAM: Female, 68 years old. 2 hours status post lung biopsy. Follow-up. TECHNIQUE: Frontal inspiration and expiration images of the chest were obtained. COMPARISON: Earlier in the day. FINDINGS: Stable cardiomegaly, aortic tortuosity with calcification, prominent central pulmonary arteries, mild hyperinflation with diffuse interstitial pattern. No pneumothorax identified. No abnormality of the visualized soft tissue structures of the upper abdomen. RAD/Chest Insp/Exp 2 View IMPRESSION: Stable chest with no pneumothorax. Electronically Signed: Jai Madera MD at 11:57 EDT ,
== END 2023-08-16 23:59 | disposition home or self-care (01) ==
LOC: CT 07:57
PROVIDERS: PCP Internal Medicine
DX: C34.92 Malignant neoplasm of unspecified part of left bronchus or lung (principal); J44.9 Chronic obstructive pulmonary disease, unspecified; R06.02 Shortness of breath
CPT/HCPCS: 32408; 71046; 77012; 81002; 88172; 88305; 88313; 88341; 88342; 99156; 99157; J7050; A4216; C2613

== ENCOUNTER 2023-11-27 12:29 | Emergency (ER) | payer MEDICARE, SELFPAY ==
[2023-11-27 12:29] VITALS: BP 168/100; PULSE 100; RESP 26; TEMP 36.6; O2SAT 95
--- NOTE | 2023-11-27 12:56 | EKG12_ITS ---
Test Reason : SOB Blood Pressure : / mmHG Vent. Rate : 098 BPM Atrial Rate : 098 BPM P-R Int : 146 ms QRS Dur : 094 ms QT Int : 372 ms P-R-T Axes : 070 018 084 degrees QTc Int : 474 ms Normal sinus rhythm Moderate voltage criteria for LVH, may be normal variant ( Sokolow-Mohan , Fabian product ) Nonspecific T wave abnormality Abnormal ECG Confirmed by ELIAS FOOTE, TUTU ([id number]), acquisitions editor KAI RODRIGUEZ ([id number]) on 11/29/2023 1:44:00 PM Referred By: Confirmed By:TUTU GRIFFIN MD
[2023-11-27 13:09] LABS: Absolute Lymphocyte Count 1.22 X10^3/uL (0.83-4.51); Absolute Neutrophil Count 6.8 X10^3/uL (2.0-7.7); Basophil# 0.03 X10^3/uL; Basophil% 0.3 % (0-1); Eosinophil# 0.12 X10^3/uL; Eosinophils% 1.3 % (0-5); Hematocrit 40.7 % (37-47); Hemoglobin 12.9 g/dL (12.0-15.0); Lymphocyte # 1.22 X10^3/ul (0.83-4.51); Lymphocyte % 13.7 % (19-41); Mean Corp Hgb Conc 31.7 g/dL (32-36); Mean Corpuscular Hgb 29.5 pg (27.0-32.0); Mean Corpuscular Volume 93.1 fL (81-99); Mean Platelet Vol. 10.7 fl (6.2-12.0); Monocyte# 0.65 X10^3/uL; Monocyte% 7.3 % (0-10); NRBC Flagged by Analyzer 0 % (0-5); Neutrophil # 6.83 X10^3/uL (2.7-7.7); Neutrophil % 76.8 % (47-70); Platelet Count 366 K/mm3 (150-450); RBC Distribution Width CV 13.3 % (11.6-14.6); Red Blood Count 4.37 M/mm3 (4.2-5.4); White Blood Count 8.9 K/mm3 (4.4-11.0)
[2023-11-27 13:25] LABS: Anion Gap 6 (5-15); BUN 19 mg/dL (7-18); BUN/Creat Ratio 35.3 RATIO (10-20); Calcium,Total 9.4 mg/dL (8.5-10.1); Chloride 100 mmol/L (98-107); Creatinine, Serum 0.54 mg/dL (0.55-1.02); EST Glomerular Filtration Rate 119 mL/min (>60); Est Glom Filt Rate - Afr Amer 144 mL/min (>60); Glucose 102 mg/dL (74-106); Potassium 3.9 mmol/L (3.5-5.1); Sodium Level 136 mmol/L (136-145); Troponin-I HS 36 pg/mL (3.0-54.0)
== END 2023-11-27 14:21 | disposition left against medical advice (07) ==
LOC: ED 14:35
PROVIDERS: PCP Internal Medicine
DX: Z53.21 Procedure and treatment not carried out due to patient leaving prior to being seen by health care provider (principal)
CPT/HCPCS: 80048; 84484; 85025; 93005

== ENCOUNTER 2023-11-27 17:05 | Inpatient (IN) | payer MEDICARE, SELFPAY ==
[2023-11-27] VITALS (28 sets, daily range): BP systolic 140–166; BP diastolic 69–103; PULSE 55–111; RESP 19–37; TEMP 35.9–37.2; O2SAT 80–100; BMI 15.3; BMI 15.5
--- NOTE | 2023-11-27 17:23 | RAD_ITS ---
INDICATION: SOB EXAMINATION/TECHNIQUE: X-RAY - XR Chest 1 View COMPARISON: 08/16/2023. FINDINGS: Increased interstitial markings. Tortuous and calcified thoracic aorta. The heart is mildly enlarged. Left basilar scarring/atelectasis. No pneumothorax. Degenerative changes of the thoracic spine. RAD/Chest 1 View (Portable) IMPRESSION: Increased interstitial markings may represent edema and/or infection. Electronically Signed: Tommy Kirby MD at 18:06 EDT ,
--- NOTE | 2023-11-27 17:55 | EDS_ITS ---
HPI History of Present Illness Chief Complaint: Shortness of Breath Narrative Narrative: 68-year-old female past medical history of COPD, wears 6 L of oxygen per nasal cannula at home, has Dr. Bentley as her tour counselor, presents with increasing shortness of breath over the last few days. She states she has an occasional cough, sometimes is clear and sometimes is yellow. She has not had a breathing treatment in a while. She states she only uses them as needed. She smokes occasionally. She presents with increasing shortness of breath. Denies fevers or chills. No leg swelling or other symptoms. [facility] Medical History Hospice care Alcohol dependence Hyponatremia Nicotine dependence, cigarettes, uncomplicated Chronic hypoxemic respiratory failure Protein-calorie malnutrition, moderate Alcoholism Tobacco abuse Chronic hyponatremia Chronic respiratory failure with hypoxia Smoker Smoking greater than 30 pack years Allergic rhinitis Depression Chronic bronchitis Insomnia Emphysema of lung Hypertension Dysphagia COPD (chronic obstructive pulmonary disease) Back pain Anxiety Home Medications ?Medication ?Instructions ?Recorded ?Last Taken ?Type omeprazole 40 mg capsule,delayed 40 mg PO DAILY ACID REFLUX 10/13/15 03/05/23 History release atorvastatin 10 mg tablet 10 mg PO QHS CHOLESTEROL 10/25/20 03/05/23 History albuterol sulfate 2.5 mg/3 mL 2.5 mg inhalation Q4H PRN 03/07/23 03/05/23 History (0.083 %) solution for nebulization WHEEZING/SHORTNESS OF BREATH albuterol sulfate 90 mcg/actuation 2 puff inhalation Q4H PRN 03/07/23 03/05/23 History aerosol inhaler SHORTNESS OF BREATH duloxetine 60 mg capsule,delayed 60 mg PO DAILY DEPRESSION 03/07/23 03/05/23 History release fluticasone fur. 100 mcg-umeclid 1 inh inhalation DAILY COPD 03/07/23 03/05/23 History 62.5 mcg-vilant 25 mcg inhalat.powder (Trelegy Ellipta) gabapentin 600 mg tablet 600 mg PO BID PAIN 03/07/23 03/05/23 History losartan 50 mg tablet 50 mg PO DAILY BLOOD PRESSURE 03/07/23 03/05/23 History Allergy/AdvReac Type Severity Reaction Status Date / Time bupropion (From Wellbutrin) Allergy Severe hallucinati Verified 11/27/23 17:05 ons Family History (Updated 11/27/23 @ 20:[address] Radha Steve MD) Mother Heart disease Hypertension CAD (coronary artery disease) Father No problems noted. Surgical History S/P chest tube placement Social History (Updated 11/27/23 @ 21:[address] Radha Stvee MD) household members: significant other housing: house history of recent travel: No Smoking Status: Current every day smoker tobacco type: cigarettes Smoking packs per day: 0.5 Smoking cigarettes per day: 10.0 quit status: considering quitting alcohol intake: current alcohol intake frequency: a few times a week details: 4-6 beers daily prior->down to 3-4 per week. substance use type: does not use ROS ROS ED ROS Narrative Constitutional: No fever, no chills. HEENT: No sore throat. No neck pain. No loss of vision. No rhinorrhea. Cardiovascular: No chest pain. No palpitations. No pedal edema. Respiratory: Positive cough, positive shortness of breath. Abdominal: No abdominal pain. No nausea. No vomiting. Genitourinary: No dysuria. No hematuria. Musculoskeletal: No myalgias. No arthralgias. Neurologic: No headaches. No dizziness. No lightheadedness. Skin: No rash. No change in color. Psychiatric: No depression. No anxiety. EXAM Physical Exam Narrative Exam Narrative: Afebrile. Vital signs noted. HEENT: Normocephalic. Atraumatic. PERRL, EOMI. Neck soft and supple. No point tenderness or step off. Cardiovascular: Regular rate and rhythm. No murmurs, rubs, or gallops appreciated. Respiratory: Positive tachypnea. Decreased breath sounds bilateral bases. Gastrointestinal: Abdomen soft, nontender, with normoactive bowel sounds. No rebound or guarding. Neurological: Awake. Alert. Nonfocal, nonlateralizing. Skin: No rash. Normal color. No pallor. Musculoskeletal: No pedal edema. Full range of motion extremities. Const Vital Signs: 11/27/23 17:05 11/27/23 17:06 11/27/23 17:43 Temperature 98.9 F Temperature Source Oral Pulse Rate 55 L Respiratory Rate 20 H 32 H Respiratory Effort Respiratory Pattern Blood Pressure 143/69 H Blood Pressure Mean 93 Pulse Ox 98 80 Oxygen Delivery Method Nasal Cannula Nasal Cannula Nasal Cannula Oxygen Flow Rate (L/min) 6 6 6 11/27/23 17:43 11/27/23 18:00 11/27/23 18:00 Temperature Temperature Source Pulse Rate 100 Respiratory Rate 37 H 28 H Respiratory Effort Respiratory Pattern Tachypnea Blood Pressure Blood Pressure Mean Pulse Ox 98 97 Oxygen Delivery Method Nasal Cannula Nasal Cannula Oxygen Flow Rate (L/min) 6 11/27/23 18:00 11/27/23 18:15 11/27/23 18:30 Temperature Temperature Source Pulse Rate 99 99 94 Respiratory Rate 30 H 31 H 24 H Respiratory Effort Respiratory Pattern Blood Pressure Blood Pressure Mean Pulse Ox 99 94 98 Oxygen Delivery Method Oxygen Flow Rate (L/min) 11/27/23 18:40 11/27/23 18:45 11/27/23 18:53 Temperature Temperature Source Pulse Rate 98 101 H Respiratory Rate 25 H 25 H Respiratory Effort Short of Breath Labored Respiratory Pattern Tachypnea Blood Pressure 163/99 H Blood Pressure Mean 116 Pulse Ox 100 99 Oxygen Delivery Method Nasal Cannula Oxygen Flow Rate (L/min) 11/27/23 19:00 11/27/23 19:15 11/27/23 19:30 Temperature Temperature Source Pulse Rate 96 95 98 Respiratory Rate 25 H 19 H 30 H Respiratory Effort Respiratory Pattern Blood Pressure 159/103 H Blood Pressure Mean 115 Pulse Ox 98 Oxygen Delivery Method Oxygen Flow Rate (L/min) 11/27/23 19:45 11/27/23 20:00 Temperature Temperature Source Pulse Rate 94 107 H Respiratory Rate 19 H 22 H Respiratory Effort Respiratory Pattern Blood Pressure 166/101 H Blood Pressure Mean 122 Pulse Ox 97 99 Oxygen Delivery Method Nasal Cannula Oxygen Flow Rate (L/min) 6 MDM MDM MDM Narrative Medical decision making narrative: Reportedly, patient had been here in triage and protocol orders started. She then left, but then returned and was brought back to a room. EKG had been obtained and interpreted by myself independently as normal sinus rhythm at 98 bpm without ectopy or acute ST changes. No STEMI. Her BNP is elevated at 1060.9 she may be having a CHF exacerbation as well so she was administered Lasix 40 mg intravenously. With the thought that she had a COPD exacerbation as well, she was given a DuoNeb aerosolized treatment and additional albuterol as well as Solu-Medrol 125 mg intravenously. I did review her laboratory work from earlier today and she has normal white count, hemoglobin stable, and troponin negative in the 30s/36. Review of her electrolyte panel shows BUN slightly elevated at 19 with a creatinine of 0.5. Chest x-ray 1 view interpreted by myself shows interstitial edema versus infection/inflammation. I think she probably has more interstitial disease. At this point in time, given her increased respiratory rate and BNP, I feel she requires at least observation. I reviewed her EMR and she has not had an echocardiogram recently. Patient will be discussed with the hospitalist. Patient discussed with Dr. Steve. She will be placed on observation. Disposition is assigned observation in stable condition. History & Record Review Discussion w/independent historian: Patient Lab Data Attestation: I reviewed the patient's lab results. Labs: Laboratory Results - last 24 hr 11/27/23 11/27/23 12:50 18:00 Phosphorus 3.1 Magnesium 2.1 B-Natriuretic Peptide 1060.9 H Radiography Chest X-Ray - ED: 1 View, Read by ED Physician, Read by Radiologist and CHF Diagnostic Testing: Clinical Impression(s) from Imaging Studies Chest X-Ray 11/27/23 17:23 IMPRESSION: Increased interstitial markings may represent edema and/or infection. Electronically Signed: Tommy Kirby MD at 18:06 EDT , Management Discussion w/another healthcare provider: Hospitalist (Dr. Steve) Discharge Plan Disposition Disposition: Acute Care Hospital [facility] Discharge Date/Time: 11/27/23 22:04
[2023-11-27 18:26] LABS: BNP,B-Type NATRIURETIC PEPTIDE 1060.9 pg/mL (0-100)
[2023-11-27] MEDS: Furosemide 40 MG/4 ML Vial IV (18:46)
[2023-11-27] MEDS: MethylPREDNISolone 125 MG/2 ML Vial IV (18:46)
--- NOTE | 2023-11-27 19:52 | HP.PCM.HOS_ITS ---
HPI - General General Date of Admission: 11/27/23 Date of Service: 11/27/23 Chief Complaint: Dyspnea. HPI Narrative The patient is a 68 y/o F w/ PMHx: EtOH abuse (3-4 beers daily prior, now reports weekly), Severe Protein Calorie Malnutrition, COPD with Chronic Hypoxic Respiratory Failure (6L NC), Tobacco use, HTN, HLD, Anxiety and Depression, GERD who presents to the [facility] ED on 11/27/23 with history of increasing dyspnea, worsening for the last several days with occasional cough not markedly productive but occasionally does have yellow sputum with ongoing persistent tobacco use with no fevers or chills but given persistent and not improving prompted ED evaluation to be cautious. She denies any marked weight gain or significant orthopnea or p increasing peripheral edema but does not follow these things. Workup in the ED included T97.9, heart rate 100, BP 168/100, respiratory rate 26, 95% on 6 L nasal cannula with most recent repeat evaluation heart rate 96, BP 159/103, respiratory rate 25, 98% on 6 L nasal cannula, CBC with WC 8.9, hemoglobin 12.9, MCV 93.1, platelet 366 with mild increase in neutrophils but not marked, BMP with BUN/creatinine 19/0.54, troponin 36, BNP 1060.9, chest x- ray with increased transitional markings possibly employer relations representative of edema and/or infection, EKG with sinus rhythm with no acute evidence of ischemia. In the ED patient ministered albuterol therapy, DuoNeb therapy, Lasix 40 mg IV x 1, Solu- Medrol 125 mg IV x 1. [facility] Medical History Hospice care Alcohol dependence Hyponatremia Nicotine dependence, cigarettes, uncomplicated Chronic hypoxemic respiratory failure Protein-calorie malnutrition, moderate Alcoholism Tobacco abuse Chronic hyponatremia Chronic respiratory failure with hypoxia Smoker Smoking greater than 30 pack years Allergic rhinitis Depression Chronic bronchitis Insomnia Emphysema of lung Hypertension Dysphagia COPD (chronic obstructive pulmonary disease) Back pain Anxiety Home Medications ?Medication ?Instructions ?Recorded ?Last Taken ?Type omeprazole 40 mg capsule,delayed 40 mg PO DAILY ACID REFLUX 10/13/15 03/05/23 History release atorvastatin 10 mg tablet 10 mg PO QHS CHOLESTEROL 10/25/20 03/05/23 History albuterol sulfate 2.5 mg/3 mL 2.5 mg inhalation Q4H PRN 03/07/23 03/05/23 History (0.083 %) solution for nebulization WHEEZING/SHORTNESS OF BREATH albuterol sulfate 90 mcg/actuation 2 puff inhalation Q4H PRN 03/07/23 03/05/23 History aerosol inhaler SHORTNESS OF BREATH duloxetine 60 mg capsule,delayed 60 mg PO DAILY DEPRESSION 03/07/23 03/05/23 History release fluticasone fur. 100 mcg-umeclid 1 inh inhalation DAILY COPD 03/07/23 03/05/23 History 62.5 mcg-vilant 25 mcg inhalat.powder (Trelegy Ellipta) gabapentin 600 mg tablet 600 mg PO BID PAIN 03/07/23 03/05/23 History losartan 50 mg tablet 50 mg PO DAILY BLOOD PRESSURE 03/07/23 03/05/23 History Allergy/AdvReac Type Severity Reaction Status Date / Time bupropion (From Wellbutrin) Allergy Severe hallucinati Verified 11/27/23 17:05 ons Family History (Updated 11/27/23 @ 20:[address] Radha Steve MD) Mother Heart disease Hypertension CAD (coronary artery disease) Father No problems noted. Surgical History S/P chest tube placement Social History (Updated 11/27/23 @ 21:[address] Radha Steve MD) household members: significant other housing: house history of recent travel: No Smoking Status: Current every day smoker tobacco type: cigarettes Smoking packs per day: 0.5 Smoking cigarettes per day: 10.0 quit status: considering quitting alcohol intake: current alcohol intake frequency: a few times a week details: 4-6 beers daily prior->down to 3-4 per week. substance use type: does not use ROS ROS Narrative Admission Review of Systems: CONSTITUTIONAL: No weight loss, fever, chills, + weakness or fatigue. HEENT: Eyes: No visual loss, blurred vision, double vision or yellow sclerae. Ears, Nose, Throat: No hearing loss, sneezing, congestion, runny nose or sore throat. SKIN: No rash or itching, lesions, wounds. CARDIOVASCULAR: No chest pain, chest pressure or chest discomfort, palpitations, edema, orthopnea, syncopal events. RESPIRATORY: + Dyspnea, worse with exertion, occasional productive cough, occasional wheezing. No hemoptysis. GASTROINTESTINAL: No anorexia, nausea, vomiting or diarrhea, abdominal pain, melena, BRBPR. GENITOURINARY: No dysuria, frequency, urgency or retention. NEUROLOGICAL: No headache, dizziness, syncope, paralysis, ataxia, numbness or tingling in the extremities, focal weakness, change in bowel or bladder control, seizure. MUSCULOSKELETAL: + muscle, back pain, joint pain or stiffness. HEMATOLOGIC: + History of anemia, easy bleeding/bruising. LYMPHATICS: No enlarged nodes. No history of splenectomy. PSYCHIATRIC: + History of anxiety and depression. ENDOCRINOLOGIC: No reports of sweating, cold or heat intolerance. No polyuria or polydipsia. ALLERGIES: No history of asthma, hives, eczema or rhinitis. Vital Signs Vital Signs Vital Signs: 11/27/23 17:05 11/27/23 17:06 11/27/23 17:43 Temperature 98.9 F Temperature Source Oral Pulse Rate 55 L Respiratory Rate 20 H 32 H Respiratory Effort Respiratory Pattern Blood Pressure 143/69 H Blood Pressure Mean 93 Pulse Ox 98 80 Oxygen Delivery Method Nasal Cannula Nasal Cannula Nasal Cannula Oxygen Flow Rate (L/min) 6 6 6 11/27/23 17:43 11/27/23 18:00 11/27/23 18:00 Temperature Temperature Source Pulse Rate 100 Respiratory Rate 37 H 28 H Respiratory Effort Respiratory Pattern Tachypnea Blood Pressure Blood Pressure Mean Pulse Ox 98 97 Oxygen Delivery Method Nasal Cannula Nasal Cannula Oxygen Flow Rate (L/min) 6 11/27/23 18:00 11/27/23 18:15 11/27/23 18:30 Temperature Temperature Source Pulse Rate 99 99 94 Respiratory Rate 30 H 31 H 24 H Respiratory Effort Respiratory Pattern Blood Pressure Blood Pressure Mean Pulse Ox 99 94 98 Oxygen Delivery Method Oxygen Flow Rate (L/min) 11/27/23 18:40 11/27/23 18:45 11/27/23 18:53 Temperature Temperature Source Pulse Rate 98 101 H Respiratory Rate 25 H 25 H Respiratory Effort Short of Breath Labored Respiratory Pattern Tachypnea Blood Pressure 163/99 H Blood Pressure Mean 116 Pulse Ox 100 99 Oxygen Delivery Method Nasal Cannula Oxygen Flow Rate (L/min) 11/27/23 19:00 Temperature Temperature Source Pulse Rate 96 Respiratory Rate 25 H Respiratory Effort Respiratory Pattern Blood Pressure 159/103 H Blood Pressure Mean 115 Pulse Ox 98 Oxygen Delivery Method Oxygen Flow Rate (L/min) Weight Weight: 95 lb Body Mass Index (BMI) 15.3 Physical Exam Narrative Physical Examination: General: Awake, alert, oriented x 3 and cooperative, seated upright in the ED bed, fatigued but denies any current marked dyspnea however at rest. Skin: Normal color, normal turgor, no icterus, no cyanosis except occasional staged ecchymoses, bilateral lower extremity venous stasis skin changes. HEENT: AT/NC, EOMI, PERRLA, MMM, no carotid bruits or JVD noted. Lungs: Mildly increased respiratory rate but no distress, occasional end expiratory wheeze, no marked rales or rhonchi noted. Heart: Mildly tachycardic with regular regular rate and rhythm; no gallop, rub audible. Abdomen: Soft, cachectic habitus, NTTP, ND, normal BS, no appreciated HSM. Extremities: No cyanosis, clubbing, or edema, evidence of muscle wasting. Neurological: Patient awake, alert, oriented as noted, cognitive function intact; pupils equally reactive to light and accommodation, cranial nerves grossly normal, moving all 4 extremities, no focal deficits, strength moderately to severely globally decreased secondary to acute presentation Psychiatric: Affect appears fatigued, no acute evidence of depressive or anxiety feelings. Results Lab / Micro Data Labs: Laboratory Results - last 24 hr 11/27/23 18:00: B-Natriuretic Peptide 1060.9 H Imaging Radiology Impression Chest X-Ray 11/27/23 17:23 IMPRESSION: Increased interstitial markings may represent edema and/or infection. Electronically Signed: Tommy Kirby MD at 18:06 EDT , Assessment & Plan Assessment/Plan (1) Shortness of breath: PLAN: Plan The patient is a 68 y/o F w/ PMHx: EtOH abuse (3-4 beers daily prior, now reports weekly) Severe Protein Calorie Malnutrition, COPD with Chronic Hypoxic Respiratory Failure (6L NC), Tobacco use, HTN, HLD, Anxiety and Depression, GERD who presents to the [facility] ED on 11/27/23 with history of increasing dyspnea, worsening for the last several days with occasional cough not markedly productive but occasionally does have yellow sputum with ongoing persistent tobacco use with no fevers or chills but given persistent and not improving prompted ED evaluation to be cautious. #1. Acute on Chronic COPD exacerbation with chronic hypoxic respiratory failure and questionable HF Exacerbation, Unclear type: Will admit to PCU, maintain on home oxygen supplementation, continue ATC duonebs, PRN albuterol, IV methylprednisolone, HOB, IS parameters, will obtain sputum Cx, respiratory viral panel, procalcitonin, will hold on immediately abx therapy but low threshold to add if appropriate. Patient administered IV lasix in the ED, maintain on cardiac telemetry, obtain cardiac enzyme series, continue judicious IV lasix diuresis given on prior history, monitor I/Os, maintain on asa, obtain TSH and magnesium level. ECHO requested. #2. Hypertension: Continue home regimen including losartan, PRN hydralazine. #3. Hyperlipidemia: Will contain patient on statin therapy. #4. Anxiety and depression: Will continue patient home duloxetine regimen #5. Tobacco Abuse: Encouraged cessation, inpatient consultation per RT, NR if desired. #6. Severe protein calorie malnutrition: Evidenced by significantly reduced BMI, obvious muscle and fat loss, nutrition consulted for recommendations. #7. Hx EtOH Abuse: Patient notes routine consumption of 3-4 beers per day prior but now notes 3-4 beers weekly. Encouraged continued reduction. Will maintain on CIWA protocol, MVI, thiamine and folic acid to be cautious in case amount is incorrectly higher but de-escalate if clinically stable. CM consulted. #8. GERD: Will continue patient on PPI. #9. DVT prophylaxis: Lovenox. #10. CODE status: Patient MATTHEW is granddaughter and her significant other and living will is currently in place. Discussed CODE status at length including difference between FULL code, DNR-CCA and DNR-CC status. Following discussions about the differences in these status, requested DNR-CCA, no intubation status. Advanced Care Planning Face to Face Time: 16 minutes. Charges/Coding Visit Charges Inpatient E&M: 10062 Init Hosp L3 Procedures Hospitalists Procedures: 83771 Advncd Care Plan 30 Min
--- NOTE | 2023-11-27 22:08 | ECHOD_ITS ---
Reason For Study: CHF Procedure This was a 2D Doppler, Color Flow transthoracic echocardiogram. The study was technically difficult. PT sitting upright due to DYSPNEA/SOB. Exam performed portable in patient room. Left Ventricle Normal LV size. Apical false tendon noted. The left ventricular ejection fraction is 55 %. Stage 1 diastolic dysfunction. No regional wall motion abnormalities noted. Right Ventricle Normal RV size. Normal systolic function. Mitral Valve Bileaflet diffuse mitral valve thickening. Tricuspid Valve Normal tricuspid valve. Aortic Valve Trisinus/trileaflet aortic valve. Pulmonic Valve Normal pulmonic valve. Great Vessels Normal aortic root. The pulmonary artery is normal size. Normal inferior vena cava. Pericardium/Pleural No pericardial effusion. MMode/2D Measurements & Calculations LVIDd: 4.5 cm IVSd: 1.1 cm Ao root diam: 3.4 cm LVIDs: 3.3 cm LVPWd: 1.1 cm RVDd: 3.7 cm FS: 25.6 % LAV(MOD-bp): 52.8 ml LVAd ap4: 32.8 cm2 SV(MOD-sp4): 57.3 ml LAV(MOD-bp) Indexed: 36.1 ml/m2 LVLd ap4: 7.3 cm LAV(MOD-sp2): 44.8 ml EDV(MOD-sp4): 123.0 ml LAV(MOD-sp4): 64.0 ml EDV(sp4-el): 126.0 ml LVAs ap4: 23.1 cm2 LVLs ap4: 6.8 cm ESV(MOD-sp4): 65.8 ml ESV(sp4-el): 67.0 ml EF(MOD-sp4): 46.5 % EF(sp4-el): 46.8 % SV(sp4-el): 59.0 ml LA A4 area: 18.9 cm2 RA A4 area: 11.0 cm2 TAPSE: 1.9 cm Doppler Measurements & Calculations MV E max juwan: 37.6 cm/sec Lat Peak E' Juwan: 4.7 cm/sec Med Peak E' Juwan: 3.9 cm/sec MV A max juwan: 95.6 cm/sec E/E' lat: 8.0 E/E' med: 9.7 MV E/A: 0.39 Ao V2 max: 109.6 cm/sec LV V1 max: 71.1 cm/sec PA V2 max: 104.5 cm/sec Ao max P.8 mmHg LV V1 max P.0 mmHg PA V2 mean: 78.2 cm/sec Ao V2 mean: 84.2 cm/sec LV V1 mean P.3 mmHg Ao mean P.0 mmHg LV V1 mean: 53.8 cm/sec Ao V2 VTI: 14.7 cm LV V1 VTI: 8.5 cm AV (velocity ratio): 0.58 ECHO/Echo Complete Interpretation Summary The left ventricular ejection fraction is 55 %. Stage 1 diastolic dysfunction. Bileaflet diffuse mitral valve thickening. Ordering Physician: Radha Steve Referring Physician: May Garcia Performed By: Sharri Bruno, JUAN, RVT
[2023-11-27 22:26] LABS: Magnesium 2.1 mg/dL (1.6-2.6); Phosphorus 3.1 mg/dL (2.5-4.9)
[2023-11-27 23:12] LABS: Troponin-I HS 36 pg/mL (3.0-54.0)
[2023-11-27] MEDS: Atorvastatin Calcium 10 MG Tablet PO (23:32)
[2023-11-27] MEDS: Gabapentin 600 MG Tablet PO (23:32)
[2023-11-28] VITALS (11 sets, daily range): BP systolic 107–151; BP diastolic 70–93; PULSE 80–102; RESP 16–20; TEMP 35.9–37.1; O2SAT 94–100; BMI 15.5
[2023-11-28 01:14] LABS: Troponin-I HS 26 pg/mL (3.0-54.0)
[2023-11-28 02:38] LABS: Procalcitonin < 0.04 ng/mL (0.00-0.09)
[2023-11-28 05:02] LABS: Absolute Lymphocyte Count 0.21 X10^3/uL (0.83-4.51); Absolute Neutrophil Count 3.4 X10^3/uL (2.0-7.7); Hematocrit 37.5 % (37-47); Hemoglobin 12.2 g/dL (12.0-15.0); Lymphocyte # 0.21 X10^3/ul (0.83-4.51); Lymphocyte % 5.8 % (19-41); Mean Corp Hgb Conc 32.5 g/dL (32-36); Mean Corpuscular Hgb 29.7 pg (27.0-32.0); Mean Corpuscular Volume 91.2 fL (81-99); Mean Platelet Vol. 10.7 fl (6.2-12.0); Monocyte# 0.03 X10^3/uL; Monocyte% 0.8 % (0-10); NRBC Flagged by Analyzer 0 % (0-5); Neutrophil # 3.35 X10^3/uL (2.7-7.7); Neutrophil % 92.8 % (47-70); POSITIVE DIFFERENTIAL YES; Platelet Count 345 K/mm3 (150-450); RBC Distribution Width CV 13.2 % (11.6-14.6); RBC Distribution Width SD 44.4 fl (35.1-43.9); Red Blood Count 4.11 M/mm3 (4.2-5.4); White Blood Count 3.6 K/mm3 (4.4-11.0)
[2023-11-28 05:27] LABS: AST(SGOT) 12 U/L (15-37); Alanine Aminotransfer ALT/SGPT 22 U/L (13-56); Albumin, Serum 3.4 g/dL (3.2-5.0); Alkaline Phosphatase 63 U/L (45-117); Anion Gap 8 (5-15); BUN 23 mg/dL (7-18); BUN/Creat Ratio 44.4 RATIO (10-20); Chloride 98 mmol/L (98-107); Cholesterol 204 mg/dL (200); Creatinine, Serum 0.52 mg/dL (0.55-1.02); EST Glomerular Filtration Rate 124 mL/min (>60); Est Glom Filt Rate - Afr Amer 151 mL/min (>60); Estimated Creatinine Clearance 45.24 ml/min; Globulin 3.3 g/dL (2.2-4.2); Glucose 162 mg/dL (74-106); High Density Lipoprotein 78 mg/dL; Potassium 3.4 mmol/L (3.5-5.1); Protein, Total 6.7 g/dL (6.4-8.2); Sodium Level 135 mmol/L (136-145); Thyroid Stim Hormone (TSH) 0.236 uIU/mL (0.358-3.740); Triglycerides 36 mg/dL; Troponin-I HS 21 pg/mL (3.0-54.0); Very Low Density Lipoprotein 7 mg/dL (5-40)
[2023-11-28] MEDS: Ipratropium/Albuterol Sulfate 3 ML AMPUL.NEB INHALATION ×3 (06:49→15:03)
--- NOTE | 2023-11-28 08:48 | PCM.PN.HOSP ---
Reason for Visit Reason for Visit: Diagnoses Shortness of breath (11/27/23) Objective Data Objective Data Vital Signs: Vital Signs Temp Pulse Resp BP Pulse Ox O2 Del Method O2 Flow Rate 96.6 F L 90 18 149/89 H 97 Nasal Cannula 5 11/28/23 02:00 11/28/23 06:50 11/28/23 06:50 11/28/23 02:00 11/28/23 06:50 11/28/23 06:50 11/28/23 06:50 Oxygen Flow Rate (L/min) 5 Oxygen Delivery Method Nasal Cannula Weight: 96 lb 8.999 oz Body Mass Index (BMI) 15.5 Intake & Output: Intake and Output for Last 24 Hours 11/26/23 11/27/23 11/28/23 23:59 23:59 23:59 Intake Total 360 / 360 Output Total 0 / 0 Balance 360 / 360 Lab / Micro Data 11/28/23 04:10 11/28/23 04:10 Labs: Laboratory Results - last 24 hr 11/27/23 12:50: Phosphorus 3.1, Magnesium 2.1, Procalcitonin < 0.04 11/27/23 18:00: B-Natriuretic Peptide 1060.9 H 11/27/23 22:35: Troponin I High Sens 36 11/28/23 00:25: Troponin I High Sens 26 11/28/23 04:10: WBC 3.6 L, RBC 4.11 L, Hgb 12.2, Hct 37.5, MCV 91.2, MCH 29.7, MCHC 32.5, RDW Std Deviation 44.4 H, RDW Coeff of Oral 13.2, Plt Count 345, MPV 10.7, Immature Gran % (Auto) 0.600, Neut % (Auto) 92.8 H, Lymph % (Auto) 5.8 L, [place] % (Auto) 0.8, Eos % (Auto) 0.0, Baso % (Auto) 0.0, Absolute Neuts (auto) 3.4, Absolute Lymphs (auto) 0.21 L, Nucleated RBC % 0, Sodium 135 L, Potassium 3.4 L, Chloride 98, Carbon Dioxide 29.0, Anion Gap 8, BUN 23 H, Creatinine 0.52 L, Estim Creat Clear Calc 45.24, Est GFR (MDRD) Af Amer 151, Est GFR (MDRD) Non-Af 124, BUN/Creatinine Ratio 44.4 H, Glucose 162 H, Calcium 9.0, Total Bilirubin 0.60, AST 12 L, ALT 22, Alkaline Phosphatase 63, Troponin I High Sens 21, Total Protein 6.7, Albumin 3.4, Globulin 3.3, Albumin/Globulin Ratio 1.0, Triglycerides 36, Cholesterol 204 H, LDL Cholesterol 119, VLDL Cholesterol 7, HDL Cholesterol 78, TSH 0.236 L Radiography Diagnostic Testing: Radiology Impression Chest X-Ray 11/27/23 17:23 IMPRESSION: Increased interstitial markings may represent edema and/or infection. Electronically Signed: Tommy Kirby MD at 18:06 EDT , Physical Exam Narrative Seen and examined. Patient is short of breath. Oxygen nasal cannula on the bed. Patient pausing and cannot complete full sentences. Dyspnea at rest History of his smoking since age of 10 currently half pack per day. Mild cough with yellowish and greenish sputum. Physical exam General: Alert, Oriented x3, Cooperative, thin built BMI 15.6 kg/m? HEENT: Atraumatic, PERRLA, EOMI, Normocephalic Oral: Oral mucosa dry. No Gingival or Mucosal Lesions/ Ulcerations Neck: Supple, No JVD, Negative Carotid Bruits Chest wall/Lungs: Air entry severely diminished. Dyspnea at rest. High flow oxygen 6 L. Cardiovascular: Regular rate, Regular Rhythm, Normal S1, Normal S2, No M/G/R Abdomen: Bowel Sounds Present, Soft, Non Tender, Non-Distended : No dysuria. No renal angle tenderness. No suprapubic tenderness. Extremities: No edema, Capillary Refill Less than 3 Seconds Skin: No rashes, No breakdown Musculoskeletal: No Tenderness to Palpation of Joints or Extremities. Moderate decreased bulk of muscles of extremities, intervertebral muscles and craniofacial muscles. Severe chronic malnutrition Neurological: Cranial nerves II-XII grossly intact, DTR 2+/4. No acute focal neurological deficit. Psych/Mental Status: Normal Affect, Appropriate. Assessment & Plan Assessment/Plan (1) Shortness of breath: PLAN: Plan The patient is a 68 y/o F who was admitted on 11/27/23 with history of increasing dyspnea, worsening for the last several days with occasional cough with occasional yellow sputum with ongoing persistent tobacco use with no fevers or chills #1. Acute on Chronic COPD exacerbation with chronic hypoxic respiratory failure and questionable HF Exacerbation, Unclear type: Patient is being admitted in PCU. Patient is being managed on scheduled bronchodilator, IV Solu-Medrol, Mucinex, incentive spirometry and Pep. Patient cannot speak full sentences and pausing. ABG stat ordered. BiPAP ordered. BNP elevated. Suspicion of CHF exacerbation. On IV Lasix. Echo is ordered #2. Hypertension: Continue home regimen including losartan, PRN hydralazine. #3. Hyperlipidemia: patient on statin therapy. #4. Anxiety and depression: Will continue patient home duloxetine regimen #5. Tobacco Abuse: Encouraged cessation, inpatient consultation per RT, NR if desired. #6. Severe chronic protein calorie malnutrition: Evidenced by significantly reduced BMI, obvious muscle and fat loss, nutrition consulted for recommendations. #7. Hx EtOH Abuse: Patient notes routine consumption of 3-4 beers per day prior but now notes 3-4 beers weekly. Encouraged continued reduction. Will maintain on CIWA protocol, MVI, thiamine and folic acid to be cautious in case amount is incorrectly higher but de-escalate if clinically stable. CM consulted. #8. GERD:continue patient on PPI. #9. DVT prophylaxis: Lovenox. #10. CODE status: Patient MATTHEW is granddaughter and her significant other and living will is currently in place. Discussed CODE status at length including difference between FULL code, DNR-CCA and DNR-CC status. Following discussions about the differences in these status, requested DNR-CCA, no intubation status.
[2023-11-28 09:09] LABS: T4 Free Direct 1.04 ng/dL (0.76-1.46)
[2023-11-28] MEDS: Furosemide 40 MG/4 ML Vial IV (09:47)
[2023-11-28] MEDS: Acetaminophen 325 MG Tablet 650 MG PO (09:47)
[2023-11-28] MEDS: Folic Acid 1 MG Tablet PO (09:47)
[2023-11-28] MEDS: Spironolactone 25 MG Tablet PO (09:47)
[2023-11-28] MEDS: DULoxetine Hcl 60 MG Capsule PO (09:47)
[2023-11-28] MEDS: Pantoprazole Sodium 40 MG Tablet PO (09:47)
[2023-11-28] MEDS: Multivitamins,Ther W-Minerals Tablet 1 TABLET PO (09:47)
[2023-11-28] MEDS: Aspirin E.C. 81 MG Tablet PO (09:47)
[2023-11-28] MEDS: Enoxaparin 30 MG/0.3 ML Syringe SC (09:48)
[2023-11-28] MEDS: Thiamine Hydrochloride 100 MG Tablet PO (09:48)
[2023-11-28 10:23] LABS: Allen Test Positive; Base Excess 4 mmol/L (-2 to +2); Bicarbonate 28.3 mmol/L (22-26); Blood Gas Specimen Type ART; Mode Not entered; O2 Delivery Device Cannula; PO2 74 mmHG (75-100); SITE R Radial; SO2 95 % (95-99); Total Carbon Dioxide 30 mmol/L; pCO2 43.3 mmHg (35-45); pH 7.42 (7.35-7.45)
[2023-11-28] MEDS: guaiFENesin/D-Methorphan TAB.SR.12H 2 TABLET PO ×2 (12:19→21:09)
[2023-11-28] MEDS: Gabapentin 600 MG Tablet PO ×2 (12:20→21:08)
--- NOTE | 2023-11-28 15:44 | CASEMGMT ---
RADHA BOSWELL Assessment Face to Face with patient for initial transition planning/care coordination assessment. RADHA BOSWELL introduced self and role at [facility], pt voices understanding. Pt is A&Ox4 and is resting comfortably in bed and is calm. Care providers, pharmacy, and demographics verified. Admitting dx: COPD Exacerbation, HF Exacerbation PCP: Jose Specialists: Edd Bentley (Pulmonary) Preferred Pharmacy: [facility] Insurance: Applico Prescription Benefit: Yes LNOK: Dylan Moy (SO), Mikala Walter (GD) Living Arrangements: Pt lives with his SO and GS (Age 22) in a two story home with 2 steps to enter ADLs/IADLs: Ind. 6-Click is 24 Transportation: Self, SO DME: Home oxygen through [employer]. Pt states that she mainly wears 6L. Confirmation pending. Pt states that she has a concentrator, Pulse Ox, and portable tanks. Pt has a portable tank at bedside. Pt also states that she has or has access to: shower chair, FWW, W/C, and nebulizer. Pt states that she did not get a medical alert system set up after previous stay. Medical alert brochure given. HHC/SNF: Hx with [facility] HH. Hx with [facility]. Denies SNF Hx or needs Pt?s goal: Home Plan: Anticipate DC home. 6-Click is 24. Pt denies the current need for HHC or OP Tx. However, PT eval is pending. Pt states that she is interested in a list of private duty aides. List given with pricing. Pt denies further needs at this time. CM to follow for increased oxygen demands. Dre Winter RN, CM
[2023-11-28] MEDS: 0.9% Saline Lock 10 ML Syringe IV (15:51)
[2023-11-28] MEDS: Atorvastatin Calcium 10 MG Tablet PO (21:09)
[2023-11-29] VITALS (20 sets, daily range): BP systolic 122–148; BP diastolic 66–101; PULSE 74–111; RESP 14–20; TEMP 36.4–37.1; O2SAT 83–99; BMI 15.5
[2023-11-29 06:01] LABS: Absolute Lymphocyte Count 0.41 X10^3/uL (0.83-4.51); Absolute Neutrophil Count 13.8 X10^3/uL (2.0-7.7); Basophil# 0.01 X10^3/uL; Basophil% 0.1 % (0-1); Hematocrit 39.4 % (37-47); Hemoglobin 12.6 g/dL (12.0-15.0); Lymphocyte # 0.41 X10^3/ul (0.83-4.51); Lymphocyte % 2.8 % (19-41); Mean Corpuscular Hgb 29.9 pg (27.0-32.0); Mean Corpuscular Volume 93.6 fL (81-99); Mean Platelet Vol. 10.8 fl (6.2-12.0); Monocyte# 0.28 X10^3/uL; Monocyte% 1.9 % (0-10); NRBC Flagged by Analyzer 0 % (0-5); Neutrophil # 13.79 X10^3/uL (2.7-7.7); Neutrophil % 94.4 % (47-70); POSITIVE DIFFERENTIAL YES; Platelet Count 336 K/mm3 (150-450); RBC Distribution Width CV 13.4 % (11.6-14.6); RBC Distribution Width SD 46.1 fl (35.1-43.9); Red Blood Count 4.21 M/mm3 (4.2-5.4); White Blood Count 14.6 K/mm3 (4.4-11.0)
[2023-11-29 06:23] LABS: Anion Gap 4 (5-15); BUN 41 mg/dL (7-18); BUN/Creat Ratio 47.3 RATIO (10-20); Calcium,Total 9.1 mg/dL (8.5-10.1); Chloride 100 mmol/L (98-107); Creatinine, Serum 0.87 mg/dL (0.55-1.02); EST Glomerular Filtration Rate 69 mL/min (>60); Est Glom Filt Rate - Afr Amer 83 mL/min (>60); Estimated Creatinine Clearance 41.32 ml/min; Glucose 139 mg/dL (74-106); Potassium 4.5 mmol/L (3.5-5.1); Sodium Level 135 mmol/L (136-145)
[2023-11-29] MEDS: Ipratropium/Albuterol Sulfate 3 ML AMPUL.NEB INHALATION ×3 (07:03→19:23)
--- NOTE | 2023-11-29 09:41 | PN.HOSP_ITS ---
Reason for Visit Reason for Visit: Diagnoses Shortness of breath (11/28/23) Objective Data Objective Data Vital Signs: Vital Signs Temp Pulse Resp BP Pulse Ox O2 Del Method O2 Flow Rate 98.7 F 82 17 133/101 H 88 Nasal Cannula 4 11/29/23 05:02 11/29/23 07:05 11/29/23 07:05 11/29/23 05:02 11/29/23 09:22 11/29/23 09:22 11/29/23 09:22 Oxygen Flow Rate (L/min) 4 Oxygen Delivery Method Nasal Cannula Weight: 95 lb 14.417 oz Body Mass Index (BMI) 15.5 Intake & Output: Intake and Output for Last 24 Hours 11/27/23 11/28/23 11/29/23 23:59 23:59 23:59 Intake Total 1220 / 1220 Output Total 0 / 0 Balance 1220 / 1220 Lab / Micro Data 11/29/23 05:13 11/29/23 05:13 Labs: Laboratory Results - last 24 hr 11/29/23 05:13: WBC 14.6 H, RBC 4.21, Hgb 12.6, Hct 39.4, MCV 93.6, MCH 29.9, MCHC 32.0, RDW Std Deviation 46.1 H, RDW Coeff of Oral 13.4, Plt Count 336, MPV 10.8, Immature Gran % (Auto) 0.800, Neut % (Auto) 94.4 H, Lymph % (Auto) 2.8 L, [place] % (Auto) 1.9, Eos % (Auto) 0.0, Baso % (Auto) 0.1, Absolute Neuts (auto) 13.8 H, Absolute Lymphs (auto) 0.41 L, Nucleated RBC % 0, Sodium 135 L, Potassium 4.5, Chloride 100, Carbon Dioxide 31.0, Anion Gap 4 L, BUN 41 H, Creatinine 0.87, Estim Creat Clear Calc 41.32, Est GFR (MDRD) Af Amer 83, Est GFR (MDRD) Non-Af 69, BUN/Creatinine Ratio 47.3 H, Glucose 139 H, Calcium 9.1 Micro: Microbiology 11/27/23 08:13 Mucosa - Nasopharyngeal Respiratory Panel (PCR) - Final ABG Data ABG results: ABG 11/28/23 10:18 Specimen Type ART Sample Site R Radial pH 7.42 Bicarbonate Actual 28.3 H Total CO2 30 Base Excess 4 H O2 Saturation 95 O2 % 6.0 ABG pCO2 43.3 ABG pO2 74 L Ronan Test Positive O2 Delivery Device Cannula Vent Mode Not entered Radiography Diagnostic Testing: Radiology Impression Echocardiogram 11/27/23 22:08 Interpretation Summary The left ventricular ejection fraction is 55 %. Stage 1 diastolic dysfunction. Bileaflet diffuse mitral valve thickening. Ordering Physician: Radha Steve Referring Physician: May Garcia Performed By: Sharri Bruno, IVONCS, RVT Physical Exam Narrative Seen and examined. Patient is short of breath. Oxygen nasal cannula on the bed. Patient pausing and cannot complete full sentences. Dyspnea at rest History of his smoking since age of 10 currently half pack per day. Mild cough with yellowish and greenish sputum. Physical exam General: Alert, Oriented x3, Cooperative, thin built BMI 15.6 kg/m? HEENT: Atraumatic, PERRLA, EOMI, Normocephalic Oral: Oral mucosa dry. No Gingival or Mucosal Lesions/ Ulcerations Neck: Supple, No JVD, Negative Carotid Bruits Chest wall/Lungs: Air entry severely diminished. Dyspnea at rest. High flow oxygen 6 L. Cardiovascular: Regular rate, Regular Rhythm, Normal S1, Normal S2, No M/G/R Abdomen: Bowel Sounds Present, Soft, Non Tender, Non-Distended : No dysuria. No renal angle tenderness. No suprapubic tenderness. Extremities: No edema, Capillary Refill Less than 3 Seconds Skin: No rashes, No breakdown Musculoskeletal: No Tenderness to Palpation of Joints or Extremities. Moderate decreased bulk of muscles of extremities, intervertebral muscles and craniofacial muscles. Severe chronic malnutrition Neurological: Cranial nerves II-XII grossly intact, DTR 2+/4. No acute focal neurological deficit. Psych/Mental Status: Normal Affect, Appropriate. Assessment & Plan Assessment/Plan (1) Shortness of breath: PLAN: Plan The patient is a 68 y/o F who was admitted on 11/27/23 with history of increasing dyspnea, worsening for the last several days with occasional cough with occasional yellow sputum with ongoing persistent tobacco use with no fevers or chills #1. Acute on Chronic COPD exacerbation with chronic hypoxic respiratory failure and questionable HF Exacerbation, Unclear type: Patient is being admitted in PCU. Patient is being managed on scheduled bronchodilator, IV Solu-Medrol, Mucinex, incentive spirometry and Pep. Patient cannot speak full sentences and pausing. ABG stat ordered. BiPAP ordered. BNP elevated. Suspicion of CHF exacerbation. On IV Lasix. Echo is ordered #2. Hypertension: Continue home regimen including losartan, PRN hydralazine. #3. Hyperlipidemia: patient on statin therapy. #4. Anxiety and depression: Will continue patient home duloxetine regimen #5. Tobacco Abuse: Encouraged cessation, inpatient consultation per RT, NR if desired. #6. Severe chronic protein calorie malnutrition: Evidenced by significantly reduced BMI, obvious muscle and fat loss, nutrition consulted for recommendations. #7. Hx EtOH Abuse: Patient notes routine consumption of 3-4 beers per day prior but now notes 3-4 beers weekly. Encouraged continued reduction. Will maintain on CIWA protocol, MVI, thiamine and folic acid to be cautious in case amount is incorrectly higher but de-escalate if clinically stable. CM consulted. #8. GERD:continue patient on PPI. #9. DVT prophylaxis: Lovenox. #10. CODE status: Patient MATTHEW is granddaughter and her significant other and living will is currently in place. Discussed CODE status at length including difference between FULL code, DNR-CCA and DNR-CC status. Following discussions about the differences in these status, requested DNR-CCA, no intubation status.
--- NOTE | 2023-11-29 09:41 | PCM.DC ---
Discharge Instructions Follow Up Care Test Results: Test results from this visit will be discussed in further detail at your follow-up appointment, if applicable. Discharge Plan Admission Admit Date/Time: 11/28/23 15:00 Primary Reason for Your Visit: Acute on chronic hypoxic respiratory failure Attending Provider: Kana Scott Primary Care Provider: May Garcia Consulting Providers: Radha Steve Discharge Orders/Prescriptions Prescriptions: New thiamine HCl (vitamin B1) 100 mg Tablet 100 mg PO BREAKFAST 30 Days Qty: 30 2RF folic acid 1 mg Tablet 1 mg PO BREAKFAST 30 Days Qty: 30 3RF Mucinex DM 30-600 mg Tablet Extended Release 12 Hr 2 tab PO BID 7 Days Qty: 28 0RF prednisone 20 mg tablet 20 mg PO DAILY Qty: 22 0RF Rx Instructions: 40 mg daily for 4 days, 30 mg for 4 days, 20 mg for 4 days and 10 mg 8 days furosemide 20 mg tablet 20 mg PO DAILY PRN (Reason: LEG SWELLING) Qty: 30 1RF varenicline [Chantix] 1 mg tablet 1 mg PO BID Qty: 56 0RF Continued omeprazole 40 MG capsule,delayed release(DR/EC) 40 mg PO DAILY atorvastatin 10 mg tablet 10 mg PO QHS Patient Comments: PT IS UNSURE IF THIS IS ONE OF THE MEDS SHE TAKES AT BEDTIME. MED LIST STATES ROSUVASTATIN, BUT NOT RECENTLY FILLED. Trelegy Ellipta 100-62.5-25 mcg blister with device 1 inh INHALATION DAILY losartan 50 mg tablet 50 mg PO DAILY albuterol sulfate 2.5 mg /3 mL (0.083 %) solution for nebulization 2.5 mg inhalation Q4H PRN (Reason: WHEEZING/SHORTNESS OF BREATH ) Patient Comments: PT HASNT USED IN APPROX A MONTH albuterol sulfate 90 mcg/actuation HFA aerosol inhaler 2 puff inhalation Q4H PRN (Reason: SHORTNESS OF BREATH ) Patient Comments: PER PT HOME MED LIST, PT INHALES ONE PUFF BY MOUTH AND INTO THE LUNGS ONCE DAILY duloxetine 60 mg capsule,delayed release(DR/EC) 60 mg PO DAILY gabapentin 600 mg tablet 600 mg PO QHS Referrals / Follow Up: May Garcia MD [Primary Care Provider] - Mihaela Austin NP, ASSOCIATE CIVIL ENGINEER-C [Med Staff - Adv Practice Prof] - Within 2 Weeks Disposition Disposition (needs filled in before D/C Order can be placed): Home, Self Care
[2023-11-29] MEDS: Multivitamins,Ther W-Minerals Tablet 1 TABLET PO (11:10)
[2023-11-29] MEDS: Enoxaparin 30 MG/0.3 ML Syringe SC (11:10)
[2023-11-29] MEDS: Pantoprazole Sodium 40 MG Tablet PO (11:10)
[2023-11-29] MEDS: Aspirin E.C. 81 MG Tablet PO (11:10)
[2023-11-29] MEDS: Furosemide 40 MG/4 ML Vial IV (11:10)
[2023-11-29] MEDS: Folic Acid 1 MG Tablet PO (11:10)
[2023-11-29] MEDS: guaiFENesin/D-Methorphan TAB.SR.12H 2 TABLET PO ×2 (11:10→22:24)
[2023-11-29] MEDS: DULoxetine Hcl 60 MG Capsule PO (11:11)
[2023-11-29] MEDS: Losartan Potassium 50 MG Tablet PO (11:11)
[2023-11-29] MEDS: Thiamine Hydrochloride 100 MG Tablet PO (11:11)
[2023-11-29] MEDS: Spironolactone 25 MG Tablet PO (11:11)
[2023-11-29] MEDS: Acetaminophen 325 MG Tablet 650 MG PO (11:16)
[2023-11-29] MEDS: 0.9% Saline Lock 10 ML Syringe IV ×3 (11:17→22:28)
--- NOTE | 2023-11-29 13:04 | CHAPLAIN ---
Type of Pastoral Visit _x__ Initial Visit ___ Follow-up Visit ___ On-call Visit ___ General Patient Visit ___ Spiritual Assessment ___ Family Conference ___ Bereavement ___ Rapid Response ___ Code Blue ___ Other (describe below) Pastoral Care Referral From __x_ Patient ___ Family ___ Nurse ___ Physician ___ Truck Washer ___ Associate Store Director ___ Other (describe below) Sacrament/Intervention _x__ Active listening ___ Anointing ___ Church ___ Bereavement ___ Communion ___ Joselyn exploration ___ ___ Life review _x__ Prayer ___ Reconciliation ___ Sacrament of Sick ___ Supportive presence ___ Wedding ___ Other (describe below) Pastoral Comments patient indicates that she is feeling better but would like to have a prayer spoken for her; pt expects to be discharged today; review of her support and any concerns
--- NOTE | 2023-11-29 16:03 | PN.HOSP_ITS ---
Reason for Visit Reason for Visit: Diagnoses Shortness of breath (11/28/23) Objective Data Objective Data Vital Signs: Vital Signs Temp Pulse Resp BP Pulse Ox O2 Del Method O2 Flow Rate 98.5 F 103 H 18 148/94 H 84 Nasal Cannula 0 11/29/23 11:05 11/29/23 11:05 11/29/23 11:05 11/29/23 11:11/29/23 12:40 11/29/23 11:11/29/23 12:40 Oxygen Flow Rate (L/min) [ 4 AMBULATING with Oxygen #3] Oxygen Flow Rate (L/min) [ 3 AMBULATING with Oxygen #2] Oxygen Flow Rate (L/min) [ 2 AMBULATING with Oxygen #1] Oxygen Flow Rate (L/min) [At 2 REST with Oxygen] Oxygen Flow Rate (L/min) [At 0 REST on Room Air] Oxygen Flow Rate (L/min) 4 Oxygen Delivery Method Nasal Cannula Weight: 95 lb 14.417 oz Body Mass Index (BMI) 15.5 Intake & Output: Intake and Output for Last 24 Hours 11/27/23 11/28/23 11/29/23 23:59 23:59 23:59 Intake Total 1220 / 1220 420 / 420 Output Total 0 / 0 Balance 1220 / 1220 420 / 420 Lab / Micro Data 11/29/23 05:13 11/29/23 05:13 Labs: Laboratory Results - last 24 hr 11/29/23 05:13: WBC 14.6 H, RBC 4.21, Hgb 12.6, Hct 39.4, MCV 93.6, MCH 29.9, MCHC 32.0, RDW Std Deviation 46.1 H, RDW Coeff of Oral 13.4, Plt Count 336, MPV 10.8, Immature Gran % (Auto) 0.800, Neut % (Auto) 94.4 H, Lymph % (Auto) 2.8 L, [place] % (Auto) 1.9, Eos % (Auto) 0.0, Baso % (Auto) 0.1, Absolute Neuts (auto) 13.8 H, Absolute Lymphs (auto) 0.41 L, Nucleated RBC % 0, Sodium 135 L, Potassium 4.5, Chloride 100, Carbon Dioxide 31.0, Anion Gap 4 L, BUN 41 H, Creatinine 0.87, Estim Creat Clear Calc 41.32, Est GFR (MDRD) Af Amer 83, Est GFR (MDRD) Non-Af 69, BUN/Creatinine Ratio 47.3 H, Glucose 139 H, Calcium 9.1 Micro: Microbiology 11/27/23 08:13 Mucosa - Nasopharyngeal Respiratory Panel (PCR) - Final Physical Exam Narrative Seen and examined. Patient chronically short of breath. Advanced COPD. Looks slightly better than yesterday. Patient wants to go home but advised to stay 1 more day. Initially she did not want but when he stated that she has to sign AMA and then she decided to stay. Physical exam General: Alert, Oriented x3, Cooperative, thin built BMI 15.6 kg/m? HEENT: Atraumatic, PERRLA, EOMI, Normocephalic Oral: Oral mucosa dry. No Gingival or Mucosal Lesions/ Ulcerations Neck: Supple, No JVD, Negative Carotid Bruits Chest wall/Lungs: Air entry severely diminished. No dyspnea at rest. On 2 to 4 L of oxygen at rest. Cardiovascular: Regular rate, Regular Rhythm, Normal S1, Normal S2, No M/G/R Abdomen: Bowel Sounds Present, Soft, Non Tender, Non-Distended : No dysuria. No renal angle tenderness. No suprapubic tenderness. Extremities: No edema, Capillary Refill Less than 3 Seconds Skin: No rashes, No breakdown Musculoskeletal: No Tenderness to Palpation of Joints or Extremities. Moderate decreased bulk of muscles of extremities, intervertebral muscles and craniofacial muscles. Severe chronic malnutrition Neurological: Cranial nerves II-XII grossly intact, DTR 2+/4. No acute focal neurological deficit. Psych/Mental Status: Normal Affect, Appropriate. Assessment & Plan Assessment/Plan (1) Shortness of breath: PLAN: Plan The patient is a 68 y/o F who was admitted on 11/27/23 with history of increasing dyspnea, worsening for the last several days with occasional cough with occasional yellow sputum with ongoing persistent tobacco use with no fevers or chills #1. Acute on Chronic COPD exacerbation with chronic hypoxic respiratory failure and questionable HF Exacerbation, Unclear type: Patient is being admitted in PCU. Patient is being managed on scheduled bronchodilator, IV Solu-Medrol, Mucinex, incentive spirometry and Pep. Patient cannot speak full sentences and pausing. ABG stat ordered. BiPAP ordered. BNP elevated. Suspicion of CHF exacerbation. On IV Lasix. Echo is ordered 11/28: 2D echo shows EF 55% stage I diastolic dysfunction is consistent with chronic HFpEF. Normal right ventricular size and function. Normal tricuspid valve. When asked to sign AMA if she really wants to go home, she decided to stay 1 more day. On ambulatory home oxygen testing, her heart rate went up 140 per night. She required 4 L on walking and 2 L at rest. #2. Hypertension: Continue home regimen including losartan, PRN hydralazine. #3. Hyperlipidemia: patient on statin therapy. #4. Anxiety and depression: Will continue patient home duloxetine regimen #5. Tobacco Abuse: Encouraged cessation, inpatient consultation per RT, NR if desired. #6. Severe chronic protein calorie malnutrition: Evidenced by significantly reduced BMI, obvious muscle and fat loss, nutrition consulted for recommendations. #7. Hx EtOH Abuse: Patient notes routine consumption of 3-4 beers per day prior but now notes 3-4 beers weekly. Encouraged continued reductionon CIWA protocol, MVI, thiamine and folic acid to be cautious in case amount is incorrectly higher but de-escalate if clinically stable. CM consulted. 11/28 no alcohol withdrawal symptoms. Prescription given for folic acid and thiamine. Advised quitting alcohol. #8. GERD:continue patient on PPI. #9. DVT prophylaxis: Lovenox. #10. CODE status: Patient MATTHEW is granddaughter and her significant other and living will is currently in place. Discussed CODE status at length including difference between FULL code, DNR-CCA and DNR-CC status. Following discussions about the differences in these status, requested DNR-CCA, no intubation status. Charges/Coding Visit Charges Inpatient E&M: 32862 Disch Hosp >30min
[2023-11-29] MEDS: Gabapentin 600 MG Tablet PO (22:24)
[2023-11-29] MEDS: Atorvastatin Calcium 10 MG Tablet PO (22:24)
[2023-11-30 00:45] VITALS: PULSE 84; RESP 18
[2023-11-30] MEDS: Ipratropium/Albuterol Sulfate 3 ML AMPUL.NEB INHALATION ×2 (00:45→07:05)
[2023-11-30 02:27] VITALS: BP 150/71; PULSE 73; RESP 18; TEMP 36.5; O2SAT 98
[2023-11-30 06:17] LABS: Absolute Lymphocyte Count 0.35 X10^3/uL (0.83-4.51); Absolute Neutrophil Count 18.1 X10^3/uL (2.0-7.7); Basophil# 0.04 X10^3/uL; Basophil% 0.2 % (0-1); Hematocrit 37.4 % (37-47); Lymphocyte # 0.35 X10^3/ul (0.83-4.51); Lymphocyte % 1.8 % (19-41); Mean Corp Hgb Conc 32.1 g/dL (32-36); Mean Corpuscular Hgb 29.9 pg (27.0-32.0); Mean Corpuscular Volume 93.3 fL (81-99); Mean Platelet Vol. 11.3 fl (6.2-12.0); Monocyte# 0.45 X10^3/uL; Monocyte% 2.4 % (0-10); NRBC Flagged by Analyzer 0 % (0-5); Neutrophil # 18.05 X10^3/uL (2.7-7.7); Neutrophil % 94.8 % (47-70); POSITIVE DIFFERENTIAL YES; Platelet Count 344 K/mm3 (150-450); RBC Distribution Width CV 13.8 % (11.6-14.6); RBC Distribution Width SD 47.3 fl (35.1-43.9); Red Blood Count 4.01 M/mm3 (4.2-5.4)
[2023-11-30 07:06] VITALS: PULSE 90; RESP 16; O2SAT 93
[2023-11-30] MEDS: Aspirin E.C. 81 MG Tablet PO (07:47)
[2023-11-30] MEDS: Multivitamins,Ther W-Minerals Tablet 1 TABLET PO (07:47)
[2023-11-30] MEDS: Spironolactone 25 MG Tablet PO (07:47)
[2023-11-30] MEDS: Thiamine Hydrochloride 100 MG Tablet PO (07:47)
[2023-11-30] MEDS: Folic Acid 1 MG Tablet PO (07:47)
[2023-11-30 08:33] VITALS: BP 143/91; PULSE 83; RESP 20; TEMP 36.6; O2SAT 96
[2023-11-30] MEDS: Enoxaparin 30 MG/0.3 ML Syringe SC (08:36)
[2023-11-30] MEDS: Furosemide 40 MG/4 ML Vial IV (08:36)
[2023-11-30] MEDS: Losartan Potassium 50 MG Tablet PO (08:36)
[2023-11-30] MEDS: DULoxetine Hcl 60 MG Capsule PO (08:36)
[2023-11-30] MEDS: Pantoprazole Sodium 40 MG Tablet PO (08:36)
[2023-11-30] MEDS: guaiFENesin/D-Methorphan TAB.SR.12H 2 TABLET PO (08:36)
[2023-11-30] MEDS: 0.9% Saline Lock 10 ML Syringe IV (08:41)
--- NOTE | 2023-11-30 09:28 | PCM.DC ---
Discharge Instructions Diet Discharge Diet: No restrictions Activity Discharge Activity: Return to Normal Activity Weight Bearing Status: Weight bearing as tolerated Dressing / Incision Call your doctor if you observe: Fever of 101 or Higher, Coldness, Increased Pain, Numbness or Tingling, Change in Color, Inability to urinate, Inability to have a bowel movement, Shortness of breath, Dizziness, Fainting spells, Swelling in the ankles, Chest pain, Prolonged hiccupping, Increased palpitations (irregular heartbeat) and Calf discomfort Follow Up Care When: IN 2 WEEKS Test Results: Test results from this visit will be discussed in further detail at your follow-up appointment, if applicable. Discharge Plan Admission Admit Date/Time: 11/28/23 15:00 Primary Reason for Your Visit: Acute on chronic hypoxic respiratory failure Attending Provider: Kana Scott Primary Care Provider: May Garcia Consulting Providers: Radha Steve Instructions Additional Instructions / Restrictions: She follows business director Dr. Mihaela Bentley. Advised to follow-up in 2 weeks. Discharge Orders/Prescriptions Prescriptions: New thiamine HCl (vitamin B1) 100 mg Tablet 100 mg PO BREAKFAST 30 Days Qty: 30 2RF folic acid 1 mg Tablet 1 mg PO BREAKFAST 30 Days Qty: 30 3RF Mucinex DM 30-600 mg Tablet Extended Release 12 Hr 2 tab PO BID 7 Days Qty: 28 0RF prednisone 20 mg tablet 20 mg PO DAILY Qty: 22 0RF Rx Instructions: 40 mg daily for 4 days, 30 mg for 4 days, 20 mg for 4 days and 10 mg 8 days furosemide 20 mg tablet 20 mg PO DAILY PRN (Reason: LEG SWELLING) Qty: 30 1RF varenicline [Chantix] 1 mg tablet 1 mg PO BID Qty: 56 0RF Continued omeprazole 40 MG capsule,delayed release(DR/EC) 40 mg PO DAILY atorvastatin 10 mg tablet 10 mg PO QHS Patient Comments: PT IS UNSURE IF THIS IS ONE OF THE MEDS SHE TAKES AT BEDTIME. MED LIST STATES ROSUVASTATIN, BUT NOT RECENTLY FILLED. Trelegy Ellipta 100-62.5-25 mcg blister with device 1 inh INHALATION DAILY losartan 50 mg tablet 50 mg PO DAILY albuterol sulfate 2.5 mg /3 mL (0.083 %) solution for nebulization 2.5 mg inhalation Q4H PRN (Reason: WHEEZING/SHORTNESS OF BREATH ) Patient Comments: PT HASNT USED IN APPROX A MONTH albuterol sulfate 90 mcg/actuation HFA aerosol inhaler 2 puff inhalation Q4H PRN (Reason: SHORTNESS OF BREATH ) Patient Comments: PER PT HOME MED LIST, PT INHALES ONE PUFF BY MOUTH AND INTO THE LUNGS ONCE DAILY duloxetine 60 mg capsule,delayed release(DR/EC) 60 mg PO DAILY gabapentin 600 mg tablet 600 mg PO QHS Referrals / Follow Up: May Garcia MD [Primary Care Provider] - Mihaela Austin NP, REIMBURSEMENT LIAISON-C [Med Staff - [facility] Practice Prof] - Within 2 Weeks Disposition Disposition (needs filled in before D/C Order can be placed): Home, Self Care
--- NOTE | 2023-11-30 09:29 | PCM.DC.SUM ---
Providers Date of Admission: 11/28/23 Date of Discharge: 11/30/23 Primary Care Physician: Dr. May Garcia MD Reason For Visit: COPD EXAC, ? HF EXAC Diagnosis Discharge Diagnosis (1) Shortness of breath: Status: Acute Code(s): R06.02 - Shortness of breath Plan The patient is a 68 y/o F who was admitted on 11/27/23 with history of increasing dyspnea, worsening for the last several days with occasional cough with occasional yellow sputum with ongoing persistent tobacco use with no fevers or chills #1. Acute on Chronic COPD exacerbation with chronic hypoxic respiratory failure and questionable HF Exacerbation, Unclear type: Patient is being admitted in PCU. Patient is being managed on scheduled bronchodilator, IV Solu-Medrol, Mucinex, incentive spirometry and Pep. Patient cannot speak full sentences and pausing. ABG stat ordered. BiPAP ordered. BNP elevated. Suspicion of CHF exacerbation. On IV Lasix. Echo is ordered 11/28: 2D echo shows EF 55% stage I diastolic dysfunction is consistent with chronic HFpEF. Normal right ventricular size and function. Normal tricuspid valve. Patient wants to go home although advised to stay 1 more day. She has chronic shortness of breath because of end-stage emphysema. Advised quitting smoking patient still smokes half pack per day. Prescription for prolonged taper of prednisone and Chantix given. Follow-up with pulmonary clinic with Mihaela Potter in 2 weeks. Prescription also given for Lasix 20 mg as needed for leg swelling. 11/29: Patient agreed to stay yesterday. Patient feeling much better. Prescriptions were sent to yesterday. She follows architectural designer Dr. Mihaela Potter, [facility] advised to follow-up in 2 weeks. Home oxygen qualification was done. 92% on 2 L of oxygen at rest and 89% on 4 L of oxygen. I have reviewed the oxygen testing, and this patient qualifies for the home equipment and portability. The patient is mobile in the home and the community. #2. Hypertension: Continue home regimen including losartan, PRN hydralazine. #3. Hyperlipidemia: patient on statin therapy. #4. Anxiety and depression: Will continue patient home duloxetine regimen #5. Tobacco Abuse: Encouraged cessation, inpatient consultation per RT, NR if desired. #6. Severe chronic protein calorie malnutrition: Evidenced by significantly reduced BMI, obvious muscle and fat loss, nutrition consulted for recommendations. #7. Hx EtOH Abuse: Patient notes routine consumption of 3-4 beers per day prior but now notes 3-4 beers weekly. Encouraged continued reductionon CIWA protocol, MVI, thiamine and folic acid to be cautious in case amount is incorrectly higher but de-escalate if clinically stable. CM consulted. 11/28 no alcohol withdrawal symptoms. Prescription given for folic acid and thiamine. Advised quitting alcohol. #8. GERD:continue patient on PPI. #9. DVT prophylaxis: Lovenox. #10. CODE status: Patient MATTHEW is granddaughter and her significant other and living will is currently in place. Discussed CODE status at length including difference between FULL code, DNR-CCA and DNR-CC status. Following discussions about the differences in these status, requested DNR-CCA, no intubation status. Discharge medication reconciliation done. Discharge follow-up instructions completed. Discharge process discussed with the patient and all questions were answered to patient's satisfaction. Follow with PCP in 1 to 2 weeks Total time spent, exact 35 minutes on discharge meds reconciliation, examination, coordination of care with nurses and ancillary staff, review of imaging and blood test and discussion with the patient on follow-up instructions. Medications at Discharge Home Medications omeprazole 40 mg capsule,delayed release 40 mg PO DAILY ACID REFLUX 10/13/15 atorvastatin 10 mg tablet 10 mg PO QHS CHOLESTEROL 10/25/20 albuterol sulfate 2.5 mg/3 mL (0.083 %) solution for nebulization 2.5 mg inhalation Q4H PRN WHEEZING/SHORTNESS OF BREATH 03/07/23 albuterol sulfate 90 mcg/actuation aerosol inhaler 2 puff inhalation Q4H PRN SHORTNESS OF BREATH 03/07/23 duloxetine 60 mg capsule,delayed release 60 mg PO DAILY DEPRESSION 03/07/23 fluticasone fur. 100 mcg-umeclid 62.5 mcg-vilant 25 mcg inhalat.powder (Trelegy Ellipta) 1 inh inhalation DAILY COPD 03/07/23 gabapentin 600 mg tablet 600 mg PO QHS PAIN 03/07/23 losartan 50 mg tablet 50 mg PO DAILY BLOOD PRESSURE 03/07/23 dextromethorphan-guaifenesin 30 mg-600 mg tablet extended [id number] hr (Mucinex DM) 2 tab PO BID 7 days #28 tabs 11/29/23 folic acid 1 mg tablet 1 mg PO BREAKFAST 30 days #30 tabs 11/29/23 furosemide 20 mg tablet 20 mg PO DAILY PRN LEG SWELLING #30 tabs 11/29/23 prednisone 20 mg tablet 20 mg PO DAILY #22 tabs 11/29/23 thiamine HCl (vitamin B1) 100 mg tablet 100 mg PO BREAKFAST 30 days #30 tabs 11/29/23 varenicline 1 mg tablet (Chantix) 1 mg PO BID #56 tabs 11/29/23 Physical Exam Narrative Seen and examined. Shortness of breath is better. Patient chronically short of breath. Advanced COPD. Physical exam General: Alert, Oriented x3, Cooperative, thin built BMI 15.6 kg/m? HEENT: Atraumatic, PERRLA, EOMI, Normocephalic Oral: Oral mucosa dry. No Gingival or Mucosal Lesions/ Ulcerations Neck: Supple, No JVD, Negative Carotid Bruits Chest wall/Lungs: Air entry severely diminished. No dyspnea at rest. On 2 to 4 L of oxygen at rest. Cardiovascular: Regular rate, Regular Rhythm, Normal S1, Normal S2, No M/G/R Abdomen: Bowel Sounds Present, Soft, Non Tender, Non-Distended : No dysuria. No renal angle tenderness. No suprapubic tenderness. Extremities: No edema, Capillary Refill Less than 3 Seconds Skin: No rashes, No breakdown Musculoskeletal: No Tenderness to Palpation of Joints or Extremities. Moderate decreased bulk of muscles of extremities, intervertebral muscles and craniofacial muscles. Severe chronic malnutrition Neurological: Cranial nerves II-XII grossly intact, DTR 2+/4. No acute focal neurological deficit. Psych/Mental Status: Normal Affect, Appropriate. Weight / BMI Weight Weight: 95 lb 14.417 oz Body Mass Index (BMI) 15.5 ABG / Lab / Microbiology Data 11/30/23 05:38 11/30/23 05:38 Laboratory: Laboratory Results - last 24 hr 11/29/23 05:13: WBC 14.6 H, RBC 4.21, Hgb 12.6, Hct 39.4, MCV 93.6, MCH 29.9, MCHC 32.0, RDW Std Deviation 46.1 H, RDW Coeff of Oral 13.4, Plt Count 336, MPV 10.8, Immature Gran % (Auto) 0.800, Neut % (Auto) 94.4 H, Lymph % (Auto) 2.8 L, [place] % (Auto) 1.9, Eos % (Auto) 0.0, Baso % (Auto) 0.1, Absolute Neuts (auto) 13.8 H, Absolute Lymphs (auto) 0.41 L, Nucleated RBC % 0, Sodium 135 L, Potassium 4.5, Chloride 100, Carbon Dioxide 31.0, Anion Gap 4 L, BUN 41 H, Creatinine 0.87, Estim Creat Clear Calc 41.32, Est GFR (MDRD) Af Amer 83, Est GFR (MDRD) Non-Af 69, BUN/Creatinine Ratio 47.3 H, Glucose 139 H, Calcium 9.1 Microbiology: Microbiology 11/27/23 08:13 Mucosa - Nasopharyngeal Respiratory Panel (PCR) - Final ABG: ABG 11/28/23 10:18 Specimen Type ART Sample Site R Radial pH 7.42 Bicarbonate Actual 28.3 H Total CO2 30 Base Excess 4 H O2 Saturation 95 O2 % 6.0 ABG pCO2 43.3 ABG pO2 74 L [place] Test Positive O2 Delivery Device Cannula Vent Mode Not entered Radiography Diagnostic Testing: Radiology Impression Echocardiogram 11/27/23 22:08 Interpretation Summary The left ventricular ejection fraction is 55 %. Stage 1 diastolic dysfunction. Bileaflet diffuse mitral valve thickening. Ordering Physician: Radha Steve Referring Physician: May Garcia Performed By: Sharri Bruno, JUAN, RVT Meaningful Use Info Meaningful Use Meaningful Use Diagnoses (Choose all that apply): None applicable Ischemic Stroke Statin Dosing Therapy Reference: STATIN DOSE THERAPY REFERENCE: * Patients > 75 years receive moderate or high dose statin therapy. * Patients 75 years or YOUNGER should receive HIGH intensity statin dose unless contraindicated. You will be required to document reason for non-treatment if statin daily dose does not meet guidelines. HIGH DOSE STATIN THERAPY DAILY Atorvastatin > than or = to 40 mg Rosuvastatin > than or = to 20 mg Amlodipine + Atorvastatin > than or = to 2.5/40 mg Ezetimibe + Simvastatin 10/80 mg Simvastatin 80mg Discharge Plan Admission Admit Date/Time: 11/28/23 15:00 Primary Reason for Your Visit: Acute on chronic hypoxic respiratory failure Attending Provider: Kana Scott Primary Care Provider: May Garcia Consulting Providers: Radha Steve Instructions Additional Instructions / Restrictions: She follows architectural designer Dr. Mihaela Bentley. Advised to follow-up in 2 weeks. Discharge Orders/Prescriptions Prescriptions: New thiamine HCl (vitamin B1) 100 mg Tablet 100 mg PO BREAKFAST 30 Days Qty: 30 2RF folic acid 1 mg Tablet 1 mg PO BREAKFAST 30 Days Qty: 30 3RF Mucinex DM 30-600 mg Tablet Extended Release 12 Hr 2 tab PO BID 7 Days Qty: 28 0RF prednisone 20 mg tablet 20 mg PO DAILY Qty: 22 0RF Rx Instructions: 40 mg daily for 4 days, 30 mg for 4 days, 20 mg for 4 days and 10 mg 8 days furosemide 20 mg tablet 20 mg PO DAILY PRN (Reason: LEG SWELLING) Qty: 30 1RF varenicline [Chantix] 1 mg tablet 1 mg PO BID Qty: 56 0RF Continued omeprazole 40 MG capsule,delayed release(DR/EC) 40 mg PO DAILY atorvastatin 10 mg tablet 10 mg PO QHS Patient Comments: PT IS UNSURE IF THIS IS ONE OF THE MEDS SHE TAKES AT BEDTIME. MED LIST STATES ROSUVASTATIN, BUT NOT RECENTLY FILLED. Trelegy Ellipta 100-62.5-25 mcg blister with device 1 inh INHALATION DAILY losartan 50 mg tablet 50 mg PO DAILY albuterol sulfate 2.5 mg /3 mL (0.083 %) solution for nebulization 2.5 mg inhalation Q4H PRN (Reason: WHEEZING/SHORTNESS OF BREATH ) Patient Comments: PT HASNT USED IN APPROX A MONTH albuterol sulfate 90 mcg/actuation HFA aerosol inhaler 2 puff inhalation Q4H PRN (Reason: SHORTNESS OF BREATH ) Patient Comments: PER PT HOME MED LIST, PT INHALES ONE PUFF BY MOUTH AND INTO THE LUNGS ONCE DAILY duloxetine 60 mg capsule,delayed release(DR/EC) 60 mg PO DAILY gabapentin 600 mg tablet 600 mg PO QHS Referrals / Follow Up: May Garcia MD [Primary Care Provider] - Mihaela Austin NP, BRICK HANDLER-C [Med Staff - [facility]] - Within 2 Weeks Disposition Disposition (needs filled in before D/C Order can be placed): Home, Self Care Charges/Coding Visit Charges Inpatient E&M: 81315 Disch Hosp >30min
[2023-11-30 09:58] LABS: Anion Gap 6 (5-15); BUN 40 mg/dL (7-18); BUN/Creat Ratio 59.9 RATIO (10-20); Calcium,Total 9.1 mg/dL (8.5-10.1); Chloride 103 mmol/L (98-107); Creatinine, Serum 0.67 mg/dL (0.55-1.02); EST Glomerular Filtration Rate 93 mL/min (>60); Est Glom Filt Rate - Afr Amer 112 mL/min (>60); Estimated Creatinine Clearance 44.93 ml/min; Glucose 133 mg/dL (74-106); Potassium 4.7 mmol/L (3.5-5.1); Sodium Level 136 mmol/L (136-145)
[2023-11-30 10:55] VITALS: O2SAT 84; O2SAT 86; O2SAT 89; O2SAT 92
--- NOTE | 2023-11-30 11:41 | CASEMGMT ---
Patient has order for discharge. Patient requires increase in home oxygen. New script received and sent to [facility] via [employer]. Portable tank provided from [employer] stock as patient is out of tanks. RN CM in to discuss needs at discharge, family at bedside. Patient up independent in room, denies needs or help at discharge. Patient aware to attend follow-up appts. Patient had no further questions or concerns.
== END 2023-11-30 12:13 | disposition home or self-care (01) | DRG 291 ==
LOC: ED 20:12 → PCU 21:32
PROVIDERS: Admitting Provider Family Medicine; Emergency Provider Emergency Medicine; PCP Internal Medicine; Visit Provider Internal Medicine
DX: I11.0 Hypertensive heart disease with heart failure (principal); E43 Unspecified severe protein-calorie malnutrition; I50.33 Acute on chronic diastolic (congestive) heart failure; J96.11 Chronic respiratory failure with hypoxia; J44.1 Chronic obstructive pulmonary disease with (acute) exacerbation; Z68.1 Body mass index [BMI] 19.9 or less, adult; F32.A Depression, unspecified; J43.9 Emphysema, unspecified; E78.5 Hyperlipidemia, unspecified; K21.9 Gastro-esophageal reflux disease without esophagitis; F41.9 Anxiety disorder, unspecified; F17.210 Nicotine dependence, cigarettes, uncomplicated; Z99.81 Dependence on supplemental oxygen; Z66 Do not resuscitate; Z79.51 Long term (current) use of inhaled steroids; Z79.899 Other long term (current) drug therapy
CPT/HCPCS: 36415; 36600; 71045; 80048; 80053; 80061; 82803; 83735; 83880; 84100; 84145; 84439; 84443; 84484; 85025; 87633; 93005; 93306; 94640; 94668; 94760; 99252; 99282; A4216; G0463; J1940

== ENCOUNTER 2023-12-20 15:01 | Inpatient (IN) | payer MEDICARE, SELFPAY ==
[2023-12-20] VITALS (9 sets, daily range): BP systolic 110–189; BP diastolic 67–118; PULSE 49–110; RESP 12–30; TEMP 36.3–36.6; O2SAT 96–100; BMI 15.7; BMI 16.2
--- NOTE | 2023-12-20 15:28 | EDS_ITS ---
HPI History of Present Illness Chief Complaint: Chest Pain Informant: patient Narrative Narrative: 68-year-old female presenting to the emergency room with abnormal echocardiogram. Patient states that her oncologist Dr. Zheng ([facility]) sent her to the emergency department yesterday due to an abnormal echocardiogram. She does not know specifics but states that she was told there is a big difference between the echocardiogram she had done here in the 1 she had done at [facility]. She states that she does not know of any new symptoms. She notes that she is able to lay on her left side on the couch to watch TV and to sleep. She states that she chronically wears home oxygen. She was unable to come to the emergency room yesterday stating that there was an accident with her granddaughter. She denies any fevers. No change in cough. She has not yet begun any treatment for her lung cancer. I spoke with Dr. 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 She had been being worked up by Dr. Alma Bentley through pulmonology at [facility]. She is not a surgical candidate. She had an echocardiogram scheduled to assess for possible pulmonary hypertension but before that could be completed she was admitted to the hospital to begin his November where she had an echocardiogram that showed preserved ejection fraction and normal valves. She showed up 1 to 2 weeks later at [facility] for the original echocardiogram that was scheduled before hospitalization. This was reported to show severely dilated left ventricle as well as 2-3+ pulmonary valve regurgitation and 2-3+ mitral valve regurgitation. She does not wish to go to the emergency room at that time. Dr. Zheng was wanting to get a cardiac stress test performed but it was felt that tonight be unsafe to do outpatient. She came to the outpatient oncology center today and was advised to come to emergency. [facility] Medical History Hospice care Alcohol dependence Hyponatremia Nicotine dependence, cigarettes, uncomplicated Chronic hypoxemic respiratory failure Protein-calorie malnutrition, moderate Alcoholism Tobacco abuse Chronic hyponatremia Chronic respiratory failure with hypoxia Smoker Smoking greater than 30 pack years Allergic rhinitis Depression Chronic bronchitis Insomnia Emphysema of lung Hypertension Dysphagia COPD (chronic obstructive pulmonary disease) Back pain Anxiety Home Medications ?Medication ?Instructions ?Recorded ?Last Taken ?Type omeprazole 40 mg capsule,delayed 40 mg PO DAILY ACID REFLUX 10/13/15 03/05/23 History release atorvastatin 10 mg tablet 10 mg PO QHS CHOLESTEROL 10/25/20 03/05/23 History albuterol sulfate 2.5 mg/3 mL 2.5 mg inhalation Q4H PRN 03/07/23 03/05/23 History (0.083 %) solution for nebulization WHEEZING/SHORTNESS OF BREATH albuterol sulfate 90 mcg/actuation 2 puff inhalation Q4H PRN 03/07/23 03/05/23 History aerosol inhaler SHORTNESS OF BREATH duloxetine 60 mg capsule,delayed 60 mg PO DAILY DEPRESSION 03/07/23 03/05/23 History release fluticasone fur. 100 mcg-umeclid 1 inh inhalation DAILY COPD 03/07/23 03/05/23 History 62.5 mcg-vilant 25 mcg inhalat.powder (Trelegy Ellipta) gabapentin 600 mg tablet 600 mg PO QHS PAIN 03/07/23 03/05/23 History losartan 50 mg tablet 50 mg PO DAILY BLOOD PRESSURE 03/07/23 03/05/23 History dextromethorphan-guaifenesin 30 2 tab PO BID 7 days #28 tabs 11/29/23 Unknown Rx mg-600 mg tablet extended [id number] hr (Mucinex DM) folic acid 1 mg tablet 1 mg PO BREAKFAST 30 days #30 tabs 11/29/23 Unknown Rx furosemide 20 mg tablet 20 mg PO DAILY PRN LEG SWELLING 11/29/23 Unknown Rx #30 tabs prednisone 20 mg tablet 20 mg PO DAILY #22 tabs 11/29/23 Unknown Rx thiamine HCl (vitamin B1) 100 mg 100 mg PO BREAKFAST 30 days #30 11/29/23 Unknown Rx tablet tabs varenicline 1 mg tablet (Chantix) 1 mg PO BID #56 tabs 11/29/23 Unknown Rx Allergy/AdvReac Type Severity Reaction Status Date / Time bupropion (From Wellbutrin) Allergy Severe hallucinati Verified 12/20/23 15:02 ons Family History Mother Heart disease Hypertension CAD (coronary artery disease) Father No problems noted. Surgical History S/P chest tube placement Social History household members: significant other housing: house history of recent travel: No Smoking Status: Current some day smoker tobacco type: cigarettes quit status: considering quitting alcohol intake: current alcohol intake frequency: a few times a week details: 4-6 beers daily prior->down to 3-4 per week. substance use type: does not use ROS ROS ED Constitutional Constitutional ED: Denies chills, fever(s) or weight loss Eyes Eyes: Denies change in vision or diplopia ENT ENT ED: Denies ear pain, rhinorrhea or sore throat Cardiovascular Cardiovascular: Denies chest pain, orthopnea, palpitations or racing heartbeat Respiratory/Chest Respiratory/Chest: Reports cough, dyspnea, dyspnea on exertion and other Details: Patient denies change in chronic cough and dyspnea ; Denies orthopnea or sputum Gastrointestinal Gastrointestinal: Denies abdominal pain, diarrhea, nausea or vomiting Genitourinary Genitourinary ED: Denies dysuria, hematuria or urinary frequency Musculoskeletal Musculoskeletal: Denies arthralgias or myalgias Integumentary Denies abscess or rash Neurologic Neurologic: Denies headache(s) or weakness Psychiatric Psychiatric: Denies anxiety, depression, suicidal ideation or suicidal thoughts Endocrine Endocrinology: Denies polydipsia, polyphagia or polyuria Allergic/Immunologic Allergic/Immunologic ED: Denies mouth swelling, tongue swelling or urticaria EXAM Physical Exam Const Vital Signs: 12/20/23 15:02 12/20/23 15:09 12/20/23 15:10 Temperature 97.7 F L 97.9 F Temperature Source Oral Oral Pulse Rate 109 H 110 H Respiratory Rate 30 H 30 H Respiratory Effort Short of Breath Head [place]bing Respiratory Depth Respiratory Pattern Blood Pressure 186/67 H 189/87 H Blood Pressure Mean 106 121 Pulse Ox 100 100 Oxygen Delivery Method Nasal Cannula Nasal Cannula Oxygen Flow Rate (L/min) 6 6 12/20/23 15:11 12/20/23 16:09 Temperature 98 F Temperature Source Oral Pulse Rate 91 Respiratory Rate 27 H Respiratory Effort Short of Breath Respiratory Depth Shallow Respiratory Pattern Tachypnea Blood Pressure 110/82 H Blood Pressure Mean 91 Pulse Ox 98 Oxygen Delivery Method Nasal Cannula Nasal Cannula Oxygen Flow Rate (L/min) 6 4 Positive well nourished, well developed and cachectic General Appearance ED: well developed, cachectic and NAD Nutritional Appearance: cachectic HEENT Reports normocephalic, head/scalp atraumatic and moist mucous membranes Eyes PERRL and EOMs intact bilaterally Neck no lymphadenopathy, supple and no JVD Resp clear to auscultation bilaterally Resp Narrative: Patient appears tachypneic with pursed lip breathing cough that is nonproductive Cardio regular rate, regular rhythm and no murmurs Rate: tachycardic GI normal to inspection, nondistended, normoactive bowel sounds and non-tender Palpation: soft Back/Spine no CVA tenderness and normal ROM Extremity normal to inspection General Extremety ED: Negative for edema General Extremity: Negative for edema Neuro oriented x3 and CN's II-XII intact bilaterally Sensorium / Orientation: alert Motor Exam: strength 5/5 throughout Psych mental status grossly normal Mood & Affect: Negative for depressed or tearful Skin no rashes or lesions noted and no wounds MDM MDM MDM Narrative Medical decision making narrative: Differential diagnosis includes congestive heart failure. Acute coronary syndrome cardiac dysrhythmia. Cardiomyopathy no obvious electrolyte abnormalities anemia. I spoke with cardiology Dr. Forbes. We obtained an echocardiogram shows ejection fraction of 25% moderately dilated left ventricle severe global hypokinesis of left ventricle 1-2+ mitral valve insufficiency. Patient heart rate is around 100 bpm on the monitor and sinus with frequent PVCs. Hemoglobin 12.4 normal sodium potassium magnesium. Troponin is normal BNP 908 alcohol negative INR 1.2 PTT 28.4. Glucose 152 LFTs are within normal limits my independent interpretation of the chest x-ray is no acute process. Cardiology's recommendation is the patient be admitted for further evaluation. I will speak with the hospitalist regarding mission. At the time of this dictation 1700 hrs. the patient is amendable to admission History & Record Review Discussion w/independent historian: Patient Additional record(s) reviewed:: Prior inpatient record, Prior ED visit and Prior labs Lab Data Attestation: I reviewed the patient's lab results. Labs: Laboratory Results - last 24 hr 12/20/23 12/20/23 15:23 15:45 WBC 8.5 RBC 4.17 L Hgb 12.4 Hct 38.4 MCV 92.1 MCH 29.7 MCHC 32.3 RDW Std Deviation 46.7 H RDW Coeff of Oral 13.7 Plt Count 313 MPV 10.7 Immature Gran % (Auto) 0.200 Neut % (Auto) 77.0 H Lymph % (Auto) 14.4 L [place] % (Auto) 7.1 Eos % (Auto) 1.1 Baso % (Auto) 0.2 Absolute Neuts (auto) 6.5 Absolute Lymphs (auto) 1.22 Nucleated RBC % 0 PT 15.1 H INR 1.2 APTT 28.4 Sodium 135 L Potassium 3.5 Chloride 102 Carbon Dioxide 28.0 Anion Gap 5 BUN 15 Creatinine 0.63 Estim Creat Clear Calc 45.97 Est GFR (MDRD) Af Amer 121 Est GFR (MDRD) Non-Af 100 BUN/Creatinine Ratio 24.0 H Glucose 152 H Calcium 8.7 Magnesium 1.8 Total Bilirubin 0.70 Direct Bilirubin 0.22 AST 16 ALT 18 Alkaline Phosphatase 64 Troponin I High Sens 34 B-Natriuretic Peptide 908.3 H Total Protein 6.6 Albumin 3.4 Globulin 3.2 Ethyl Alcohol < 3.0 Radiography Diagnostic Testing: Clinical Impression(s) from Imaging Studies Chest X-Ray 12/20/23 15:35 IMPRESSION: Stable chest with no active or acute cardiopulmonary disease. Electronically Signed: Jai Madera MD at 15:48 EDT , Echocardiogram 12/20/23 15:46 Interpretation Summary The left ventricular ejection fraction is 25 %. Moderately dilated left ventricle. There is severe global hypokinesis of the left ventricle. Mild-Moderate (1-2+) mitral valve insufficiency. Contrast injection was performed. Compared to previous study, the left ventricular systolic function has worsened.. Ordering Physician: Brenden Davis Referring Physician: May Garcia M.D. Performed By: Kitty Voss RDCS Initial EKG: Attestation: I personally reviewed and interpreted this EKG as follows: Comments: Sinus rhythm with frequent PVCs ventricular rate 98 bpm Management Discussion w/another healthcare provider: Hospitalist (Dr. Fishman) and Crew Member (Dr. Zheng (F Oncology) and Dr. Forbes (Cardiology)) Discharge Plan Triage Chief Complaint: Chest Pain Other Complaint: Shortness of Breath ED Provider: Juventino Salgado Dx/Rx/DC Orders Prescriptions: No Action omeprazole 40 MG capsule,delayed release(DR/EC) 40 mg PO DAILY atorvastatin 10 mg tablet 10 mg PO QHS Patient Comments: PT IS UNSURE IF THIS IS ONE OF THE MEDS SHE TAKES AT BEDTIME. MED LIST STATES ROSUVASTATIN, BUT NOT RECENTLY FILLED. Trelegy Ellipta 100-62.5-25 mcg blister with device 1 inh INHALATION DAILY losartan 50 mg tablet 50 mg PO DAILY albuterol sulfate 2.5 mg /3 mL (0.083 %) solution for nebulization 2.5 mg inhalation Q4H PRN (Reason: WHEEZING/SHORTNESS OF BREATH ) Patient Comments: PT HASNT USED IN APPROX A MONTH albuterol sulfate 90 mcg/actuation HFA aerosol inhaler 2 puff inhalation Q4H PRN (Reason: SHORTNESS OF BREATH ) Patient Comments: PER PT HOME MED LIST, PT INHALES ONE PUFF BY MOUTH AND INTO THE LUNGS ONCE DAILY duloxetine 60 mg capsule,delayed release(DR/EC) 60 mg PO DAILY gabapentin 600 mg tablet 600 mg PO QHS thiamine HCl (vitamin B1) 100 mg Tablet 100 mg PO BREAKFAST 30 Days Qty: 30 2RF folic acid 1 mg Tablet 1 mg PO BREAKFAST 30 Days Qty: 30 3RF Mucinex DM 30-600 mg Tablet Extended Release 12 Hr 2 tab PO BID 7 Days Qty: 28 0RF prednisone 20 mg tablet 20 mg PO DAILY Qty: 22 0RF Rx Instructions: 40 mg daily for 4 days, 30 mg for 4 days, 20 mg for 4 days and 10 mg 8 days furosemide 20 mg tablet 20 mg PO DAILY PRN (Reason: LEG SWELLING) Qty: 30 1RF varenicline [Chantix] 1 mg tablet 1 mg PO BID Qty: 56 0RF Primary Care Provider: May Garcia Referrals: May Garcia MD [Primary Care Provider] - Print Language: Greek
--- NOTE | 2023-12-20 15:31 | EKG12_ITS ---
Test Reason : Blood Pressure : / mmHG Vent. Rate : 098 BPM Atrial Rate : 098 BPM P-R Int : 142 ms QRS Dur : 096 ms QT Int : 354 ms P-R-T Axes : 049 009 088 degrees QTc Int : 451 ms Sinus rhythm with frequent Premature ventricular complexes Minimal voltage criteria for LVH, may be normal variant ( Sokolow-Mohan ) Nonspecific T wave abnormality Abnormal ECG Confirmed by ELIAS FOOTE, TUTU ([id number]), slot editor GARTH BELTRAN ([id number]) on 12/21/2023 2:54:21 PM Referred By: Confirmed By:TUTU GRIFFIN MD
--- NOTE | 2023-12-20 15:35 | RAD_ITS ---
STUDY: X-RAY CHEST REASON FOR EXAM: Female, 68 years old. Dyspnea. TECHNIQUE: Single frontal view of the chest. COMPARISON: November 27, 2023 FINDINGS: Hyperinflation with diffuse interstitial prominence and scarring at the left base, unchanged. Scattered granulomatous calcifications are unaltered. There is no demonstrated pleural abnormality. Mild cardiomegaly unchanged. Normal mediastinum and tripp. Normal visualized pulmonary arteries. Aortic tortuosity with calcification unchanged. Incidentally noted is carotid calcification. No abnormality of the visualized soft tissue structures of the upper abdomen. RAD/Chest 1 View (Portable) IMPRESSION: Stable chest with no active or acute cardiopulmonary disease. Electronically Signed: Jai Madera MD at 15:48 EDT ,
--- NOTE | 2023-12-20 15:46 | ECHOLC_ITS ---
Reason For Study: CHEST PAIN Procedure This was a limited 2D transthoracic echocardiogram. The study was technically difficult. Contrast injection was performed. Exam performed portable in ED. Left Ventricle Moderately dilated left ventricle. The left ventricular ejection fraction is 25 %. There is severe global hypokinesis of the left ventricle. Right Ventricle Normal RV size. Normal systolic function. Atria Normal left atrium. Normal right atrium. Mitral Valve Bileaflet diffuse mitral valve thickening. Mild-Moderate (1-2+) mitral valve insufficiency. Tricuspid Valve Normal tricuspid valve. Mild tricuspid valve insufficiency. Pulmonary artery systolic pressure is 20 mmHg. Aortic Valve Trisinus/trileaflet aortic valve. Pulmonic Valve Normal pulmonic valve. Great Vessels Normal aortic root. The pulmonary artery is normal size. Inferior vena cava collapse with respiration. Pericardium/Pleural No pericardial effusion. Medication Diluted definity 2ml given slow IV push to enhance endocardial definition. MMode/2D Measurements & Calculations LVIDd: 6.1 cm IVSd: 0.98 cm LAV(MOD-bp): 46.6 ml LVIDs: 4.9 cm LVPWd: 1.0 cm RVDd: 3.4 cm FS: 19.3 % LAV(MOD-bp) Indexed: 31.5 ml/m2 LAV(MOD-sp2): 58.6 ml LAV(MOD-sp4): 30.3 ml SV(MOD-sp4): 27.3 ml LVAd ap4: 45.5 cm2 LVAd ap2: 38.0 cm2 LVLd ap4: 8.7 cm LVLd ap2: 8.6 cm EDV(MOD-sp4): 192.4 ml EDV(MOD-sp2): 135.4 ml EDV(sp4-el): 202.9 ml EDV(sp2-el): 143.3 ml LVAs ap4: 41.2 cm2 LVAs ap2: 33.9 cm2 LVLs ap4: 8.3 cm LVLs ap2: 8.2 cm ESV(MOD-sp4): 165.2 ml ESV(MOD-sp2): 113.8 ml ESV(sp4-el): 173.8 ml ESV(sp2-el): 119.3 ml EF(MOD-sp4): 14.2 % EF(MOD-sp2): 16.0 % EF(sp4-el): 14.3 % SV(MOD-sp2): 21.6 ml SV(sp4-el): 29.1 ml Ao sinus diam: 3.3 cm LA A4 area: 12.5 cm2 LA dimension(2D): 4.1 cm RA A4 area: 11.2 cm2 Doppler Measurements & Calculations TR max anjana: 204.8 cm/sec TR max P.8 mmHg ECHO/Echo Limited w/Contrast Interpretation Summary The left ventricular ejection fraction is 25 %. Moderately dilated left ventricle. There is severe global hypokinesis of the left ventricle. Mild-Moderate (1-2+) mitral valve insufficiency. Contrast injection was performed. Compared to previous study, the left ventricu lar systolic function has worsened.. Ordering Physician: Brenden Davis Referring Physician: May Garcia M.D. Performed By: Kitty Voss RDCS
[2023-12-20 15:58] LABS: Absolute Lymphocyte Count 1.22 X10^3/uL (0.83-4.51); Absolute Neutrophil Count 6.5 X10^3/uL (2.0-7.7); Basophil# 0.02 X10^3/uL; Basophil% 0.2 % (0-1); Eosinophil# 0.09 X10^3/uL; Eosinophils% 1.1 % (0-5); Hematocrit 38.4 % (37-47); Hemoglobin 12.4 g/dL (12.0-15.0); Lymphocyte # 1.22 X10^3/ul (0.83-4.51); Lymphocyte % 14.4 % (19-41); Mean Corp Hgb Conc 32.3 g/dL (32-36); Mean Corpuscular Hgb 29.7 pg (27.0-32.0); Mean Corpuscular Volume 92.1 fL (81-99); Mean Platelet Vol. 10.7 fl (6.2-12.0); Monocyte% 7.1 % (0-10); NRBC Flagged by Analyzer 0 % (0-5); Neutrophil # 6.52 X10^3/uL (2.7-7.7); Platelet Count 313 K/mm3 (150-450); RBC Distribution Width CV 13.7 % (11.6-14.6); RBC Distribution Width SD 46.7 fl (35.1-43.9); Red Blood Count 4.17 M/mm3 (4.2-5.4); White Blood Count 8.5 K/mm3 (4.4-11.0)
[2023-12-20 16:21] LABS: AST(SGOT) 16 U/L (15-37); Alanine Aminotransfer ALT/SGPT 18 U/L (13-56); Albumin, Serum 3.4 g/dL (3.2-5.0); Alkaline Phosphatase 64 U/L (45-117); Anion Gap 5 (5-15); BUN 15 mg/dL (7-18); Bilirubin, Direct 0.22 mg/dL (0.00-0.30); Calcium,Total 8.7 mg/dL (8.5-10.1); Chloride 102 mmol/L (98-107); Creatinine, Serum 0.63 mg/dL (0.55-1.02); EST Glomerular Filtration Rate 100 mL/min (>60); Est Glom Filt Rate - Afr Amer 121 mL/min (>60); Estimated Creatinine Clearance 45.97 ml/min; Globulin 3.2 g/dL (2.2-4.2); Glucose 152 mg/dL (74-106); Magnesium 1.8 mg/dL (1.6-2.6); Potassium 3.5 mmol/L (3.5-5.1); Protein, Total 6.6 g/dL (6.4-8.2); Sodium Level 135 mmol/L (136-145); Troponin-I HS 34 pg/mL (3.0-54.0)
[2023-12-20 16:30] LABS: International Normalized Ratio 1.2; Partial Thromboplast Time 28.4 Seconds (24.1-36.2); Prothrombin Time (Protime)PT. 15.1 SECONDS (11.7-14.9)
[2023-12-20 16:33] LABS: BNP,B-Type NATRIURETIC PEPTIDE 908.3 pg/mL (0-100)
[2023-12-20 16:34] LABS: Alcohol, Blood (Medical)-Serum < 3.0 mg/dL
--- NOTE | 2023-12-20 17:52 | HP.PCM.HOS_ITS ---
HPI - General General Date of Admission: 12/20/23 Date of Service: 12/20/23 Chief Complaint: New onset HFrEF HPI Narrative SPENCER MENDES, is a 68y/o female hx chronic hypoxic respiratory failure on 6 L home O2, GERD, depression, tobacco use, alcohol use presented [facility] ED 12/20/2023 at the urging of her oncologist for new reduced EF. Patient earlier this month had a 55% EF and on new echo patient's EF is 25% with global dysfunction. In the ED patient found to have BNP 900 and confirmed EF of 25%. Cardiology contacted in ED and recommended admission. Hospitalist contacted for admission. Patient evaluated at bedside. Does not necessarily feel more short of breath, reports she will get intermittent sharp twinges in her chest over the past week or so but denies any deep or persistent chest pain. Does not necessarily feel like she is having increased swelling. Nonproductive cough. No sick contacts, no fevers or chills. No other new or acute complaints FOR[facility]LY [facility] Medical History Hospice care Alcohol dependence Hyponatremia Nicotine dependence, cigarettes, uncomplicated Chronic hypoxemic respiratory failure Protein-calorie malnutrition, moderate Alcoholism Tobacco abuse Chronic hyponatremia Chronic respiratory failure with hypoxia Smoker Smoking greater than 30 pack years Allergic rhinitis Depression Chronic bronchitis Insomnia Emphysema of lung Hypertension Dysphagia COPD (chronic obstructive pulmonary disease) Back pain Anxiety Home Medications ?Medication ?Instructions ?Recorded ?Last Taken ?Type omeprazole 40 mg capsule,delayed 40 mg PO DAILY ACID REFLUX 10/13/15 03/05/23 History release atorvastatin 10 mg tablet 10 mg PO QHS CHOLESTEROL 10/25/20 03/05/23 History albuterol sulfate 2.5 mg/3 mL 2.5 mg inhalation Q4H PRN 03/07/23 03/05/23 History (0.083 %) solution for nebulization WHEEZING/SHORTNESS OF BREATH albuterol sulfate 90 mcg/actuation 2 puff inhalation Q4H PRN 03/07/23 03/05/23 History aerosol inhaler SHORTNESS OF BREATH duloxetine 60 mg capsule,delayed 60 mg PO DAILY DEPRESSION 03/07/23 03/05/23 History release fluticasone fur. 100 mcg-umeclid 1 inh inhalation DAILY COPD 12/13/23 12/11/23 History 62.5 mcg-vilant 25 mcg inhalat.powder (Trelegy Ellipta) gabapentin 600 mg tablet 600 mg PO QHS PAIN 03/07/23 03/05/23 History losartan 50 mg tablet 50 mg PO DAILY BLOOD PRESSURE 03/07/23 03/05/23 History dextromethorphan-guaifenesin 30 2 tab PO BID 7 days #28 tabs 11/29/23 Unknown Rx mg-600 mg tablet extended [id number] hr (Mucinex DM) folic acid 1 mg tablet 1 mg PO BREAKFAST 30 days #30 tabs 11/29/23 Unknown Rx furosemide 20 mg tablet 20 mg PO DAILY PRN LEG SWELLING 11/29/23 Unknown Rx #30 tabs thiamine HCl (vitamin B1) 100 mg 100 mg PO BREAKFAST 30 days #30 11/29/23 Unknown Rx tablet tabs varenicline 1 mg tablet (Chantix) 1 mg PO BID #56 tabs 11/29/23 Unknown Rx Allergy/AdvReac Type Severity Reaction Status Date / Time bupropion (From Wellbutrin) Allergy Severe hallucinati Verified 12/20/23 15:02 ons Family History Mother Heart disease Hypertension CAD (coronary artery disease) Father No problems noted. Surgical History S/P chest tube placement Social History household members: significant other housing: house history of recent travel: No Smoking Status: Current some day smoker tobacco type: cigarettes quit status: considering quitting alcohol intake: current alcohol intake frequency: a few times a week details: 4-6 beers daily prior->down to 3-4 per week. substance use type: does not use ROS ROS Narrative General: Denies fever/chills HENT: Gets a headache sometimes, denies stuffy nose, intermittently gets a sore throat EYES: Denies changes in vision Resp: Has some dry cough, feels that she is at her baseline shortness of breath Cardiac: Occasionally gets twinges in her chest GI: Denies abdominal pain, denies changes in bowel, denies nausea/vomiting : Denies changes in urination Extremity: Denies swelling MSK: Denies weakness Neuro: Denies any numbness/tingling Heme: Denies any bleeding or bruising Skin: Denies rashes Psychiatric: No complaints voiced Vital Signs Vital Signs Vital Signs: 12/20/23 15:02 12/20/23 15:09 12/20/23 15:10 Temperature 97.7 F L 97.9 F Temperature Source Oral Oral Pulse Rate 109 H 110 H Respiratory Rate 30 H 30 H Respiratory Effort Short of Breath Head [place]bing Respiratory Depth Respiratory Pattern Blood Pressure 186/67 H 189/87 H Blood Pressure Mean 106 121 Pulse Ox 100 100 Oxygen Delivery Method Nasal Cannula Nasal Cannula Oxygen Flow Rate (L/min) 6 6 12/20/23 15:11 12/20/23 16:09 12/20/23 17:00 Temperature 98 F 97.7 F L Temperature Source Oral Oral Pulse Rate 91 91 Respiratory Rate 27 H 24 H Respiratory Effort Short of Breath Respiratory Depth Shallow Respiratory Pattern Tachypnea Blood Pressure 110/82 H 146/118 H Blood Pressure Mean 91 127 Pulse Ox 98 100 Oxygen Delivery Method Nasal Cannula Nasal Cannula Nasal Cannula Oxygen Flow Rate (L/min) 6 4 4 12/20/23 17:00 Temperature 97.7 F L Temperature Source Pulse Rate 91 Respiratory Rate 24 H Respiratory Effort Respiratory Depth Respiratory Pattern Blood Pressure 146/118 H Blood Pressure Mean 127 Pulse Ox 100 Oxygen Delivery Method Oxygen Flow Rate (L/min) Weight Weight: 44.5 kg Body Mass Index (BMI) 15.7 Physical Exam Narrative General: Alert, oriented, very thin HEENT: Atraumatic, normocephalic Eyes: Anicteric, normal conjunctiva, extraocular movements grossly intact Neck: Supple Respiratory: Somewhat diminished bilaterally, no wheezes or rhonchi, little bit of increased work of breathing Cardiovascular: Regular rate and rhythm with PVCs GI: Soft, nontender, nondistended Extremities: No edema Musculoskeletal: Moving all extremities Neuro: No overt focal neurological deficits Skin: No rashes appreciated Psych: Cooperative Results Lab / Micro Data 12/20/23 15:23 12/20/23 15:23 Labs: Laboratory Results - last 24 hr 12/20/23 15:23: WBC 8.5, RBC 4.17 L, Hgb 12.4, Hct 38.4, MCV 92.1, MCH 29.7, MCHC 32.3, RDW Std Deviation 46.7 H, RDW Coeff of Oral 13.7, Plt Count 313, MPV 10.7, Immature Gran % (Auto) 0.200, Neut % (Auto) 77.0 H, Lymph % (Auto) 14.4 L, Dooly % (Auto) 7.1, Eos % (Auto) 1.1, Baso % (Auto) 0.2, Absolute Neuts (auto) 6.5, Absolute Lymphs (auto) 1.22, Nucleated RBC % 0, PT 15.1 H, INR 1.2, APTT 28.4, Sodium 135 L, Potassium 3.5, Chloride 102, Carbon Dioxide 28.0, Anion Gap 5, BUN 15, Creatinine 0.63, Estim Creat Clear Calc 45.97, Est GFR (MDRD) Af Amer 121, Est GFR (MDRD) Non-Af 100, BUN/Creatinine Ratio 24.0 H, Glucose 152 H, Calcium 8.7, Magnesium 1.8, Total Bilirubin 0.70, Direct Bilirubin 0.22, AST 16, ALT 18, Alkaline Phosphatase 64, Troponin I High Sens 34, B-Natriuretic Peptide 908.3 H, Total Protein 6.6, Albumin 3.4, Globulin 3.2 12/20/23 15:45: Ethyl Alcohol < 3.0 Imaging Radiology Impression Chest X-Ray 12/20/23 15:35 IMPRESSION: Stable chest with no active or acute cardiopulmonary disease. Electronically Signed: Jai Madera MD at 15:48 EDT , Echocardiogram 12/20/23 15:46 Interpretation Summary The left ventricular ejection fraction is 25 %. Moderately dilated left ventricle. There is severe global hypokinesis of the left ventricle. Mild-Moderate (1-2+) mitral valve insufficiency. Contrast injection was performed. Compared to previous study, the left ventricular systolic function has worsened.. Ordering Physician: Brenden Davis Referring Physician: May Garcia M.D. Performed By: Kitty Voss RDCS Assessment & Plan Assessment/Plan (1) Acute heart failure: PLAN: Plan # New onset heart failure reduced ejection fraction -Patient with normal EF 11/28/23 with stage I diastolic dysfunction and now has acutely reduced EF 12/20/2023 with an EF of 25% and severe global hypokinesis of left ventricle -Admit to telemetry -BNP 900 -CXR reported as stable, does have some increased work of breathing -Will give IV Lasix x 1 and continue to assess volume status -Given this is acute, hesitant to start beta-julienne tonight due to concern for new onset decompensated heart failure -Continue patient's losartan -Daily weights, I's and O's -Fluid restriction, heart healthy diet -Cardiology consult ordered -Discussed with cardiology in the ED -TSH low on last admission, unclear significance, check TSH, free T4, T3 -Patient has a history of alcohol use but reports she has been cutting down, has been cutting down on smoking reportedly, denies any amphetamine or other substance use # Chronic hypoxic respiratory failure on 6 L home O2 -Saturating 100% on 4 L O2 -Continue home inhalers -Has previously followed with Dr. 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 Zheng through [facility] oncology -Has not yet had treatment initiated -Will need to follow on discharge #GERD -Continue PPI # Low BMI -15.8 kg/m? -Complicates medical problems and prognosis -Start Ensure #Tobacco use -Advise cessation -Nicotine replacement available if desired # Depression -Continue Cymbalta # Alcohol use disorder -Patient reports cutting down on her drinking but unclear on how much she has actually been drinking, will start CIWA with as needed coverage -Continue thiamine and folate #DVT ppx: Lovenox subcu Maryanne Fishman MD Charges/Coding Visit Charges Inpatient E&M: 00860 Init Hosp L2
[2023-12-20] MEDS: Furosemide 40 MG/4 ML Vial 20 MG IV (19:45)
[2023-12-20] MEDS: 0.9% Saline Lock 10 ML Syringe IV (19:46)
[2023-12-20] MEDS: Atorvastatin Calcium 10 MG Tablet PO (20:01)
[2023-12-21] VITALS (36 sets, daily range): BP systolic 63–149; BP diastolic 53–105; PULSE 63–98; RESP 13–24; TEMP 36–36.5; O2SAT 40–100; BMI 16.3; BMI 16.9
[2023-12-21] MEDS: Ipratropium/Albuterol Sulfate 3 ML AMPUL.NEB INHALATION ×3 (06:57→18:54)
[2023-12-21] MEDS: Budesonide Respules 0.5 MG/2 ML AMPUL.NEB. INHALATION ×2 (06:57→18:55)
[2023-12-21 07:30] LABS: Absolute Lymphocyte Count 0.85 X10^3/uL (0.83-4.51); Absolute Neutrophil Count 5.6 X10^3/uL (2.0-7.7); Basophil# 0.02 X10^3/uL; Basophil% 0.3 % (0-1); Eosinophil# 0.18 X10^3/uL; Eosinophils% 2.5 % (0-5); Hematocrit 38.2 % (37-47); Hemoglobin 12.2 g/dL (12.0-15.0); Lymphocyte # 0.85 X10^3/ul (0.83-4.51); Lymphocyte % 11.6 % (19-41); Mean Corp Hgb Conc 31.9 g/dL (32-36); Mean Corpuscular Hgb 29.5 pg (27.0-32.0); Mean Corpuscular Volume 92.5 fL (81-99); Monocyte# 0.69 X10^3/uL; Monocyte% 9.4 % (0-10); NRBC Flagged by Analyzer 0 % (0-5); Neutrophil # 5.58 X10^3/uL (2.7-7.7); Neutrophil % 75.9 % (47-70); Platelet Count 312 K/mm3 (150-450); RBC Distribution Width CV 13.6 % (11.6-14.6); RBC Distribution Width SD 46.5 fl (35.1-43.9); Red Blood Count 4.13 M/mm3 (4.2-5.4); White Blood Count 7.3 K/mm3 (4.4-11.0)
[2023-12-21 08:12] LABS: Anion Gap 6 (5-15); BUN 12 mg/dL (7-18); BUN/Creat Ratio 25.7 RATIO (10-20); Calcium,Total 8.4 mg/dL (8.5-10.1); Chloride 102 mmol/L (98-107); Cholesterol 181 mg/dL (200); Creatinine, Serum 0.47 mg/dL (0.55-1.02); EST Glomerular Filtration Rate 140 mL/min (>60); Est Glom Filt Rate - Afr Amer 170 mL/min (>60); Estimated Creatinine Clearance 49.27 ml/min; Free T3 2.5 pg/mL (2.18-3.98); Glucose 95 mg/dL (74-106); High Density Lipoprotein 74 mg/dL; Magnesium 1.8 mg/dL (1.6-2.6); Potassium 3.4 mmol/L (3.5-5.1); Sodium Level 137 mmol/L (136-145); Thyroid Stim Hormone (TSH) 0.478 uIU/mL (0.358-3.740); Triglycerides 79 mg/dL; Very Low Density Lipoprotein 16 mg/dL (5-40)
[2023-12-21 08:35] LABS: International Normalized Ratio 1.2; Prothrombin Time (Protime)PT. 15.4 SECONDS (11.7-14.9)
[2023-12-21] MEDS: Enoxaparin 40 MG/0.4 ML Syringe SC (09:34)
[2023-12-21] MEDS: Pantoprazole Sodium 40 MG Tablet PO (09:35)
[2023-12-21] MEDS: Thiamine Hydrochloride 100 MG Tablet PO (09:35)
[2023-12-21] MEDS: Folic Acid 1 MG Tablet PO (09:35)
[2023-12-21] MEDS: DULoxetine Hcl 60 MG Capsule PO (09:35)
[2023-12-21] MEDS: Spironolactone 25 MG Tablet PO (09:44)
[2023-12-21] MEDS: HYDROmorphone 0.5 MG/0.5 ML SYRINGE IV (09:44)
[2023-12-21] MEDS: Carvedilol 6.25 MG Tablet PO (09:44)
[2023-12-21] MEDS: SACUBITRIL/VALSARTAN 24/26 MG TABLET 1 EACH PO (10:42)
[2023-12-21] MEDS: Empagliflozin 10 MG Tablet PO (10:42)
[2023-12-21] MEDS: Acetaminophen 325 MG Tablet 650 MG PO (10:44)
[2023-12-21] MEDS: 0.9% Saline Lock 10 ML Syringe IV (13:33)
[2023-12-21] MEDS: Ondansetron 4 MG/2 ML Vial IV (13:34)
--- NOTE | 2023-12-21 13:40 | NURSING ---
Pt's grandaushantalter came out to say that pt was feeling short of breath. This RN went in to room and assessed the pt by taking vital signs and listening to lungs. RT called to give breathing tx and take EKG. home paraprofessional Zeynep Vela notified. Dr. Cui notified and in to bedside. Pt started on Dobutamine per Dr. Cui and per MAY. Pt's HR dropped and Dr. Cui was notified while she was at the nursing station and came in to bedside. BP then dropped. Pt started on IVF bolus, intubated and transffered to ICU.
[2023-12-21] MEDS: DOBUTamine IV 500 MG in Dextrose 5%-Water (250mL Bag) 210 ML 7.2 MG IV (14:00)
--- NOTE | 2023-12-21 14:09 | EKG12_ITS ---
Test Reason : Blood Pressure : / mmHG Vent. Rate : 073 BPM Atrial Rate : 073 BPM P-R Int : 164 ms QRS Dur : 098 ms QT Int : 428 ms P-R-T Axes : 090 021 093 degrees QTc Int : 471 ms Normal sinus rhythm Minimal voltage criteria for LVH, may be normal variant ( Sokolow-Mohan ) Nonspecific T wave abnormality Abnormal ECG When compared with ECG of 20-DEC-2023 15:41, Premature ventricular complexes are no longer Present Confirmed by ELIAS FOOTE, TUTU ([id number]), market editor GARTH BELTRAN ([id number]) on 12/25/2023 6:45:38 AM Referred By: TELMA Confirmed By:TUTU GRIFFIN MD
[2023-12-21] MEDS: Propofol 10MG/Ml 1,000 MG/100 ML Bottle 2.9 MG CONT INF (14:45)
[2023-12-21] MEDS: fentaNYL drip 100 ML 5 MCG CONT INF (15:16)
--- NOTE | 2023-12-21 16:20 | RAD_ITS ---
INDICATION: intubation EXAMINATION/TECHNIQUE: X-RAY - XR Chest 1 View COMPARISON: December 20, 2023 FINDINGS: LINES/DEVICES: Nasogastric tube with tip in the stomach.. LUNGS: No consolidation, edema or effusion. Left basilar atelectasis. No pneumothorax. MEDIASTINUM AND CARDIOVASCULAR STRUCTURES: Cardiac silhouette not enlarged. Central airways and mediastinal contour are unremarkable. BONES AND SOFT TISSUES: Unremarkable. RAD/Chest 1 View (Portable) IMPRESSION: Left basilar atelectasis. Electronically Signed: Edwardo Leonard DO at 17:24 EDT ,
--- NOTE | 2023-12-21 16:20 | PCM.OP.PRO ---
Procedure Report Date of Procedure: 12/21/23 Intubation Indication: Altered Mental Status Consent was obtained from: [facility] The patient was placed in the appropriate sniffing position. Preoxygenated sedation via mask was provided for a minimum of 3 minutes. The patient had continuous cardiac as well as pulse oximetry monitoring during the procedure. Procedure sedation was provided by the administration of Etomidate 20mg. Direct laryngoscopy was then performed using a number 3 blade, which revealed a grade 3 view. A 7.5 mm endotracheal tube was visualized advancing between the cords to the level of 22 cm at the lip. The stylette was then removed and discarded. Tube placement was confirmed by fogging in the tube along with equal and bilateral breath sounds. Colorimetric change was visualized on the CO2 meter. The cuff was then inflated and the tube secured using a commercially available device. A good pulse oximetry waveform was seen on the monitor throughout the procedure. A portable chest x-ray has been ordered to confirm appropriate placement. The patient tolerated the procedure well.
--- NOTE | 2023-12-21 16:23 | PCM.OP.PRO ---
Procedure Report Date of Procedure: 12/21/23 Central Venous Catheter Indication: Bradycardia/Hypotension Consent was obtained from: Family Initial attempt was made on the right IJ after the below was performed however I was unable to feed the guidewire despite having good flow. The procedure was aborted and follow-up chest x-ray was obtained. No pneumothorax was identified. At that time we moved to the right femoral vein. A time-out was completed verifying correct patient, procedure, site, positioning, and special equipment if applicable. The patient was placed in a dependent position appropriate for central line placement based on the vein to be cannulated. The patient's R groin was prepped and draped in a sterile fashion. 1% lidocaine was used to anesthetize the surrounding skin area. A triple-lumen catheter was introduced into the R femoral vein using the Seldinger technique and under ultrasound guidance. The catheter was threaded smoothly over the guidewire and appropriate blood return was obtained. Each lumen of the catheter was evacuated of air and flushed with sterile saline. The catheter was then sutured in place to the skin and a sterile dressing applied. ULTRASOUND GUIDANCE STATEMENT (Vascular Access): I performed ultrasound image acquisition and interpretation for needle placement during the procedure. The vessel was identified and found to be free of thrombosis by compression technique. A safe point of entry was marked at the skin in an angle for axis was determined. The needle was guided by obtaining free-flowing fluid and by real-time visualization. Procedures Hospitalists Procedures: 66824 Insert Non-tunnel CV Cath
--- NOTE | 2023-12-21 16:25 | PCM.CONS.C ---
Assessment & Plan Assessment/Plan (1) Cardiomyopathy: PLAN: With patient's new onset cardiomyopathy, this could be related to her EtOH use. At this time would recommend guided medical directed therapy with beta-julienne, MALORIE or an ARB versus Entresto, SGLT2 inhibitor, spironolactone. Would try to optimize medical therapy and consider a stress test on an outpatient basis. PLAN: Plan After consult was completed, we were called by hospitalist as patient was having increased shortness of breath. She was noted to have a low heart rate. She was given some atropine and started on dopamine. Ultimately she was intubated and transferred up to ICU. HPI Consult Data Date of Consult: 12/21/23 HPI Narrative HPI Narrative: SPENCER MENDES, is a 68 F who presented to [facility] emergency room for an abnormal echocardiogram. Patient was hospitalized earlier this month on November 28, 2023 at [facility] for acute on chronic COPD exacerbation with questionable heart failure. Her ejection fraction on her echocardiogram at that time demonstrated 55% with stage I diastolic dysfunction. She also has a history of hypertension, hyperlipidemia, tobacco abuse, history of alcohol abuse. Patient then had an echocardiogram done at [facility] for a workup for small cell carcinoma. She was in the process of being scheduled for radiation therapy and then was noted to have an echocardiogram that demonstrated a decrease in her ejection fraction as well as 2-3+ mitral valve and pulmonic valve insufficiency. She was transferred to the emergency room for further evaluation. Echocardiogram done here at [facility] on demonstrated an ejection fraction of 25%, moderately dilated LV, severe global hypokinesis of the left ventricle, mild to moderate mitral valve insufficiency. In talking with patient her biggest issue is shortness of breath. She has never had any orthopnea. She does use oxygen at home. She does not have any chest pain. She has never felt any fast heartbeats or irregular heartbeats. She does not have any bloating or lower extremity edema. She has not had any syncope or near syncope. She does state that she is working on not smoking and is also working on not drinking and cutting down on both of them. [facility] Medical History Hospice care Alcohol dependence Hyponatremia Nicotine dependence, cigarettes, uncomplicated Chronic hypoxemic respiratory failure Protein-calorie malnutrition, moderate Alcoholism Tobacco abuse Chronic hyponatremia Chronic respiratory failure with hypoxia Smoker Smoking greater than 30 pack years Allergic rhinitis Depression Chronic bronchitis Insomnia Emphysema of lung Hypertension Dysphagia COPD (chronic obstructive pulmonary disease) Back pain Anxiety Home Medications ?Medication ?Instructions ?Recorded ?Last Taken ?Type omeprazole 40 mg capsule,delayed 40 mg PO DAILY ACID REFLUX 10/13/15 03/05/23 History release atorvastatin 10 mg tablet 10 mg PO QHS CHOLESTEROL 10/25/20 03/05/23 History albuterol sulfate 2.5 mg/3 mL 2.5 mg inhalation Q4H PRN 03/07/23 03/05/23 History (0.083 %) solution for nebulization WHEEZING/SHORTNESS OF BREATH albuterol sulfate 90 mcg/actuation 2 puff inhalation Q4H PRN 03/07/23 03/05/23 History aerosol inhaler SHORTNESS OF BREATH duloxetine 60 mg capsule,delayed 60 mg PO DAILY DEPRESSION 03/07/23 03/05/23 History release fluticasone fur. 100 mcg-umeclid 1 inh inhalation DAILY COPD 03/07/23 03/05/23 History 62.5 mcg-vilant 25 mcg inhalat.powder (Trelegy Ellipta) gabapentin 600 mg tablet 600 mg PO QHS PAIN 03/07/23 03/05/23 History losartan 50 mg tablet 50 mg PO DAILY BLOOD PRESSURE 03/07/23 03/05/23 History dextromethorphan-guaifenesin 30 2 tab PO BID 7 days #28 tabs 11/29/23 Unknown Rx mg-600 mg tablet extended [id number] hr (Mucinex DM) folic acid 1 mg tablet 1 mg PO BREAKFAST 30 days #30 tabs 11/29/23 Unknown Rx furosemide 20 mg tablet 20 mg PO DAILY PRN LEG SWELLING 11/29/23 Unknown Rx #30 tabs thiamine HCl (vitamin B1) 100 mg 100 mg PO BREAKFAST 30 days #30 11/29/23 Unknown Rx tablet tabs varenicline 1 mg tablet (Chantix) 1 mg PO BID #56 tabs 11/29/23 Unknown Rx hydrocodone-acetaminophen 5-325mg 1 tab PO Q6H PRN PRN pain 12/21/23 Unknown History 5mg-325mg Allergy/AdvReac Type Severity Reaction Status Date / Time bupropion (From Wellbutrin) Allergy Severe hallucinati Verified 12/20/23 15:02 ons Family History Mother Heart disease Hypertension CAD (coronary artery disease) Father No problems noted. Surgical History S/P chest tube placement Social History household members: significant other housing: house history of recent travel: No Smoking Status: Current some day smoker tobacco type: cigarettes quit status: considering quitting alcohol intake: current alcohol intake frequency: a few times a week details: 4-6 beers daily prior->down to 3-4 per week. substance use type: does not use ROS ROS Narrative See HPI Physical Exam Const alert and oriented x3 General Appearance: frail and appears older than stated age HEENT normocephalic, head/scalp atraumatic, hearing grossly normal bilaterally, external ears normal, external nose normal and moist oral mucous membranes Eyes PERRL, EOMs intact bilaterally, conjunctivae normal and no scleral icterus Neck no lymphadenopathy, supple and no JVD Resp Resp Narrative: Diminished throughout Cardio regular rate, regular rhythm, S1 normal heart sound, S2 normal heart sound, no murmurs, no rub, no gallops, no clicks, no JVD and peripheral pulses 2+ throughout Cardio Narrative: Distant heart sounds GI normal to inspection, nondistended, normoactive bowel sounds, soft to palpation, non-tender and non-distended Extremity no clubbing, cyanosis or edema Extremity Narrative: Diminished pedal pulses Neuro oriented x3, CN's II-XII intact bilaterally, moves all extremities and no focal motor deficits Psych cooperative and affect normal Risk Stratification Risk Stratification Applicable: No Objective Data Vital Signs: Vital Signs Temp Pulse Resp BP Pulse Ox O2 Del Method O2 Flow Rate 97.1 F L 69 17 118/78 99 Nasal Cannula 6 12/21/23 14:00 12/21/23 14:00 12/21/23 14:00 12/21/23 14:00 12/21/23 14:00 12/21/23 14:00 12/21/23 14:00 Oxygen Flow Rate (L/min) 6 Oxygen Delivery Method Nasal Cannula Weight: 105 lb 2.568 oz Body Mass Index (BMI) 16.9 Intake & Output: Intake and Output for Last 24 Hours 12/19/23 12/20/23 12/21/23 23:59 23:59 23:59 Intake Total 440 / 440 463.70 / 463.70 Balance 440 / 440 463.70 / 463.70 Lab / Micro Data 12/21/23 06:07 12/21/23 06:07 Labs: Laboratory Results - last 24 hr 12/20/23 15:23: PT 15.1 H, INR 1.2, APTT 28.4, B-Natriuretic Peptide 908.3 H 12/20/23 15:45: Ethyl Alcohol < 3.0 12/21/23 06:07: WBC 7.3, RBC 4.13 L, Hgb 12.2, Hct 38.2, MCV 92.5, MCH 29.5, MCHC 31.9 L, RDW Std Deviation 46.5 H, RDW Coeff of Oral 13.6, Plt Count 312, MPV 11.0, Immature Gran % (Auto) 0.300, Neut % (Auto) 75.9 H, Lymph % (Auto) 11.6 L, Owen % (Auto) 9.4, Eos % (Auto) 2.5, Baso % (Auto) 0.3, Absolute Neuts (auto) 5.6, Absolute Lymphs (auto) 0.85, Nucleated RBC % 0, PT 15.4 H, INR 1.2, Sodium 137, Potassium 3.4 L, Chloride 102, Carbon Dioxide 29.0, Anion Gap 6, BUN 12, Creatinine 0.47 L, Estim Creat Clear Calc 49.27, Est GFR (MDRD) Af Amer 170, Est GFR (MDRD) Non-Af 140, BUN/Creatinine Ratio 25.7 H, Glucose 95, Calcium 8.4 L, Magnesium 1.8, Triglycerides 79, Cholesterol 181, LDL Cholesterol 91, VLDL Cholesterol 16, HDL Cholesterol 74, TSH 0.478, Free T4 1.10, Free T3 pg/dL 2.5 Cardiology Labs/Tests 12/20/23 15:23: PT 15.1 H, INR 1.2, APTT 28.4, B-Natriuretic Peptide 908.3 H 12/21/23 06:07: WBC 7.3, RBC 4.13 L, Hgb 12.2, Hct 38.2, MCV 92.5, MCH 29.5, MCHC 31.9 L, Plt Count 312, MPV 11.0, Immature Gran % (Auto) 0.300, Neut % (Auto) 75.9 H, Lymph % (Auto) 11.6 L, Owen % (Auto) 9.4, Eos % (Auto) 2.5, Baso % (Auto) 0.3, Absolute Neuts (auto) 5.6, Nucleated RBC % 0, PT 15.4 H, INR 1.2, Sodium 137, Potassium 3.4 L, Chloride 102, Carbon Dioxide 29.0, Anion Gap 6, BUN 12, Creatinine 0.47 L, Est GFR (MDRD) Af Amer 170, Est GFR (MDRD) Non-Af 140, BUN/Creatinine Ratio 25.7 H, Glucose 95, Calcium 8.4 L, Magnesium 1.8, Triglycerides 79, Cholesterol 181, LDL Cholesterol 91, VLDL Cholesterol 16, HDL Cholesterol 74 Radiography Diagnostic Testing: Radiology Impression Echocardiogram 12/20/23 15:46 Interpretation Summary The left ventricular ejection fraction is 25 %. Moderately dilated left ventricle. There is severe global hypokinesis of the left ventricle. Mild-Moderate (1-2+) mitral valve insufficiency. Contrast injection was performed. Compared to previous study, the left ventricular systolic function has worsened.. Ordering Physician: Brenden Davis Referring Physician: May Garcia M.D. Performed By: Kitty Voss RDCS
[2023-12-21 16:26] LABS: Allen Test Positive; Base Excess 6 mmol/L (-2 to +2); Blood Gas Specimen Type ART; Mode AC; O2 Delivery Device Adult Vent; PEEP 5; PO2 60 mmHG (75-100); RR 14; SITE L Radial; SO2 88 % (95-99); Total Carbon Dioxide 33 mmol/L; pCO2 55.8 mmHg (35-45); pH 7.35 (7.35-7.45)
--- NOTE | 2023-12-21 16:27 | PCM.PN.HOSP ---
Reason for Visit Reason for Visit: Diagnoses Heart failure, unspecified (12/20/23) Subjective Subjective Patient had been doing well in the morning and then developed acute onset shortness of breath with some diaphoresis, nausea and presyncope. Very likely related to her poor perfusion so we did trial dobutamine at which time she became hypotensive so we discontinued the dobutamine but she became bradycardic as well. At that point she decompensated further and required administration of atropine. Given her altered mental status, worsening overall condition we elected to intubate the patient and she was transferred to the ICU. Objective Data Objective Data Vital Signs: Vital Signs Temp Pulse Resp BP Pulse Ox O2 Del Method O2 Flow Rate 97.1 F L 69 17 118/78 99 Nasal Cannula 6 12/21/23 14:00 12/21/23 14:00 12/21/23 14:00 12/21/23 14:00 12/21/23 14:00 12/21/23 14:00 12/21/23 14:00 Oxygen Flow Rate (L/min) 6 Oxygen Delivery Method Nasal Cannula Weight: 47.7 kg Body Mass Index (BMI) 16.9 Intake & Output: Intake and Output for Last 24 Hours 12/19/23 12/20/23 12/21/23 23:59 23:59 23:59 Intake Total 440 / 440 463.70 / 463.70 Balance 440 / 440 463.70 / 463.70 Medical Nutrition Assessment Dietitian: Malnutrition Criteria Met Start: 12/21/23 14:40 Freq: Status: Active Protocol: Document 12/21/23 14:40 SB (Rec: 12/21/23 14:40 SB [id number]) Nutrition Malnutrition Evidence of Malnutrition Exists Yes Malnutrition (severe): Chronic Evidenced By Suboptimal Energy Intake ( Severe),Physical Changes ( Severe) Clinical Problem Chronic Disease or Condition Related Malnutrition Etiology chronic severe malnutrition related to inadequate oral intake and increase energy needs d/t COPD Signs/Symptoms as evidenced by estimated PO intake meeting <75% of estimated nutritional needs x 1 year, severe muscle/fat loss in orbital, clavicle, and temporal areas, and BMI 17.0. Status Active Problem Recommendation Dietitian Recommendations/Changes Adjust to regular, no added salt with 1750ml fluid restriction d/t signs and symptoms of malnutrition. Continue 120ml ensure plus high protein 4x daily with medpass. Pt may benefit from supplemental nutrition support . Recommend appetite stimulant to increase oral intake. Will monitor weight, as available. Reviewed and approved by Lynne Hernandez RN, LD. Lab / Micro Data 12/21/23 06:07 12/21/23 06:07 Labs: Laboratory Results - last 24 hr 12/20/23 15:23: PT 15.1 H, INR 1.2, APTT 28.4, B-Natriuretic Peptide 908.3 H 12/20/23 15:45: Ethyl Alcohol < 3.0 12/21/23 06:07: WBC 7.3, RBC 4.13 L, Hgb 12.2, Hct 38.2, MCV 92.5, MCH 29.5, MCHC 31.9 L, RDW Std Deviation 46.5 H, RDW Coeff of Oral 13.6, Plt Count 312, MPV 11.0, Immature Gran % (Auto) 0.300, Neut % (Auto) 75.9 H, Lymph % (Auto) 11.6 L, [place] % (Auto) 9.4, Eos % (Auto) 2.5, Baso % (Auto) 0.3, Absolute Neuts (auto) 5.6, Absolute Lymphs (auto) 0.85, Nucleated RBC % 0, PT 15.4 H, INR 1.2, Sodium 137, Potassium 3.4 L, Chloride 102, Carbon Dioxide 29.0, Anion Gap 6, BUN 12, Creatinine 0.47 L, Estim Creat Clear Calc 49.27, Est GFR (MDRD) Af Amer 170, Est GFR (MDRD) Non-Af 140, BUN/Creatinine Ratio 25.7 H, Glucose 95, Calcium 8.4 L, Magnesium 1.8, Triglycerides 79, Cholesterol 181, LDL Cholesterol 91, VLDL Cholesterol 16, HDL Cholesterol 74, TSH 0.478, Free T4 1.10, Free T3 pg/dL 2.5 ABG Data ABG results: ABG 12/21/23 16:21 Specimen Type ART Sample Site L Radial pH 7.35 Bicarbonate Actual 31.0 H Total CO2 33 Base Excess 6 H O2 Saturation 88 L O2 % 40.0 ABG pCO2 55.8 H ABG pO2 60 L Ronan Test Positive Respiration Rate 14 O2 Delivery Device Adult Vent Vent Mode AC Tidal Volume 400.0 POC PEEP 5 Radiography Diagnostic Testing: Radiology Impression Echocardiogram 12/20/23 15:46 Interpretation Summary The left ventricular ejection fraction is 25 %. Moderately dilated left ventricle. There is severe global hypokinesis of the left ventricle. Mild-Moderate (1-2+) mitral valve insufficiency. Contrast injection was performed. Compared to previous study, the left ventricular systolic function has worsened.. Ordering Physician: Brenden Davis Referring Physician: May Garcia M.D. Performed By: Kitty Voss RDCS Physical Exam Const alert and oriented x3; Negative for no apparent distress, average body habitus, healthy appearing or well nourished Constitutional Narrative: Cachectic, older, white female who appears much older than stated age and appears chronically ill, sitting up in bed and appears to be in mild distress, appears ashen but sats stable on 4 L nasal cannula, family at bedside, appears acutely decompensating but not toxic, patient was initially alert and oriented but then as she deteriorated her mental status altered HEENT head/scalp atraumatic and moist oral mucous membranes HEENT Narrative: Dentition is poor, Mallampati is 1, no thrush, severe temporal wasting Head and Scalp: normocephalic Eyes PERRL, EOMs intact bilaterally and conjunctivae normal Eyes Narrative: No scleral icterus Neck no lymphadenopathy and supple Neck Narrative: Neck veins are distended Resp normal respiratory effort, no retractions, no use of accessory muscles and clear to auscultation bilaterally Resp Narrative: Severely diminished diffusely with no significant adventitious sounds Auscultation: Negative for rales, rhonchi or wheezes Cardio regular rate, regular rhythm, S1 normal heart sound, S2 normal heart sound, no murmurs, no rub, no gallops and no clicks GI normal to inspection, nondistended, normoactive bowel sounds, soft to palpation and non-tender GI Narrative: Scaphoid abdomen Extremity no clubbing, cyanosis or edema Extremity Narrative: Markedly decreased lean muscle mass Neuro oriented x3, moves all extremities and no focal motor deficits Neuro Narrative: Initially was alert and oriented x 3 however she continued to decompensate her mental status became more altered Speech: speech normal Psych Mood & Affect: anxious Assessment & Plan Assessment/Plan (1) Cardiogenic shock: (2) Acute on chronic hypoxic respiratory failure: (3) Hypokalemia: (4) Squamous cell carcinoma of lung: (5) Bradycardia: (6) Severe malnutrition: PLAN: Plan Cardiogenic shock -Patient acutely decompensated -This is a rapidly declining EF as she had a normal echocardiogram on 11/30/2023 and her EF is now 25% in the outpatient setting she was 45% just a few days ago -Will need to hold goal-directed therapy due to decompensation -Start Levophed -Mixed venous O2 sat is pending off the distal tip of the central venous catheter and will start dobutamine if mixed venous O2 sat is less than 70 -Doubt ischemic -IV thiamine/folate/multivitamin as nutrition could play have a component but also could be viral -Cardiology is following and have discussed the case extensively with them -Will rule out any component of infection however highly doubtful--> sputum/blood/urine cultures are pending -Check procalcitonin -Will start Unasyn for now for suspected aspiration Acute on chronic hypoxic respiratory failure -Her baseline oxygen at home is 2 L with rest and 4 L with exertion however patient has had to increase her oxygen with at home to 4 to 6 L over the past several days -Now intubated on mechanical ventilation -Sedation vacations and weaning parameters per protocol -Wean O2 as able -ABG seems to be consistent with chronic hypercapnia as well -Continue nebulizers -Continue budesonide -Will utilize propofol and fentanyl for now but may need to transition sedation due to hypotension -Consult critical care/pulmonary medicine Bradycardia -Patient had 1 episode of symptomatic bradycardia with heart rates in the upper 30s to 40s -Responded well to atropine -Continue to monitor on telemetry -If any recurrent bradycardia may need to utilize dopamine instead of Levophed Hypokalemia -Replaced -Recheck a.m. -Check a.m. magnesium level Small cell carcinoma of the lung -PET scan was negative for any metastasis -Oncology is staging mediastinum for mets -May be a candidate for curative resection -Follows with [facility] for pulmonary and oncology -Discussed with Dr. Masci Severe malnutrition -Start thiamine -Start folate -Start multivitamin -If stable enough we will start tube feed tomorrow -Dietitian is following GERD -Hold p.o. PPI -Start IV PPI 40 mg daily Depression -Home Cymbalta is on hold Ongoing nicotine abuse -Advised cessation Essential hypertension/hyperlipidemia -Hold home losartan -Hold home atorvastatin Chronic pain -Hold home gabapentin -Hold home opiates COPD -See above -Hold home inhalers -Follows with Dr. Alma Bentley at [facility] DVT prophylaxis -Subcu Lovenox CODE STATUS -Full code and I did discuss this prior to intubation today before she decompensated with the patient while the granddaughter was at the bedside -Niece, granddaughter, and significant other who is healthcare power of commercial attorney was updated Critical care time greater than 36 minutes excluding procedures Charges/Coding Procedures Hospitalists Procedures: [id number] Critical Care 1st Hr
[2023-12-21] MEDS: Norepinephrine 8 MG in 0.9% Normal Saline (250mL Bag) 242 ML 9.4 MG CONT INF (16:45)
[2023-12-21 16:58] LABS: CPK Total, Creatine Kinase 30 U/L (26-192); Triglycerides 78 mg/dL
--- NOTE | 2023-12-21 17:00 | CASEMGMT ---
RADHA BOSWELL chart review: Patient was admitted 11/27-11/30/23 for COPD exacerbation. See assessment from 11/28/23. Patient was discharged to home with increase in home oxygen orders and follow up plans in place. Patient returned to [facility] ED on 12/[address] Zheng's office after oncology visit as patient was founded to have reduced EF and admitted for new onset HF with reduced EF. Patient was needing increase in oxygen to 6lpm. Patient was having bradicardia and increased oxygen demands and was intubated on 12/21/23. RADHA BOSWELL unable to discuss readmission and discharge needs at this time as patient is intubated and transferred to ICU. CM will continue to follow this patient and plan for a safe discharge.
[2023-12-21 17:20] LABS: Blood Gas Specimen Type VEN; O2 Delivery Device Adult Vent; PEEP 5; RR 14; SITE Central Line; VBG BASE EXCESS 6 mmol/L (-1.0-3.5); VBG Bicarbonate 32 mmol/L (22-26); VBG PO2 33 mmHg (25-40); VBG SO2 61 % (50-70); VBG TCO2 33 mmol/L (23-33); VBG pCO2 54.8 mmHg (41-51); VBG pH 7.37 (7.32-7.42)
[2023-12-21] MEDS: Multivitamins 10 ML in 0.9% Normal Saline (1000mL) 1,000 ML 1000 ML IV (18:06)
[2023-12-21 18:15] LABS: Red Blood Cells-Urine 0 SEEN /hpf (0-5); Squamous Epithelial Cells - UA 0 SEEN /hpf (5-10)
[2023-12-21 18:21] LABS: Color, Urine Yellow (Yellow); Glucose, Dipstick 1000 mg/dl (Normal); Ketone-Dipstick Negative (Negative); Leukocyte Esterase-Dipstick 500 /ul (Negative); Nitrite-Dipstick Negative (Negative); Occult Blood-Urine 50 /ul (Negative); Protein-Dipstick 30 mg/dl (Negative); Urine Bilirubin Dipstick Negative (Negative); Urine Clarity Cloudy (Clear); Urine Urobilinogen 1 mg/dl (Normal)
[2023-12-21 18:24] LABS: Procalcitonin 0.04 ng/mL (0.00-0.09)
[2023-12-21 18:38] LABS: Bacteria 3+ /hpf (None Seen); Mucous, Urine 1+ /hpf (<or=2+); Renal Epithelial Cells 0-5 SEEN /hpf (0-5); White Blood Cells 50-100 SEEN /hpf (0-5)
[2023-12-21] MEDS: Ampicillin/Sulbactam 3 GM in 0.9% Normal Saline (100mL MB+) 100 ML IV ×2 (19:42→23:15)
[2023-12-22] VITALS (66 sets, daily range): BP systolic 70–141; BP diastolic 53–80; PULSE 71–97; RESP 12–22; TEMP 36.2–36.8; O2SAT 92–99; BMI 16.1; BMI 16.5
[2023-12-22] MEDS: fentaNYL drip 100 ML 10 MCG CONT INF ×3 (00:40→20:11)
[2023-12-22] MEDS: 0.9% Saline Lock 10 ML Syringe IV (00:40)
[2023-12-22] MEDS: Propofol 10MG/Ml 1,000 MG/100 ML Bottle 2.9 MG CONT INF (03:20)
[2023-12-22] MEDS: TITRATION PARAMETER CHANGE 1 EACH IV (04:37)
[2023-12-22 05:10] LABS: Blood Gas Specimen Type VEN; O2 Delivery Device Adult Vent; PEEP 8; RR 14; SITE Not entered; VBG BASE EXCESS 1 mmol/L (-1.0-3.5); VBG Bicarbonate 28 mmol/L (22-26); VBG PO2 31 mmHg (25-40); VBG SO2 54 % (50-70); VBG TCO2 29 mmol/L (23-33); VBG pCO2 53.1 mmHg (41-51); VBG pH 7.32 (7.32-7.42)
[2023-12-22] MEDS: Norepinephrine 8 MG in 0.9% Normal Saline (250mL Bag) 242 ML 28.1 MG CONT INF ×3 (05:16→23:41)
[2023-12-22] MEDS: Ampicillin/Sulbactam 3 GM in 0.9% Normal Saline (100mL MB+) 100 ML IV ×4 (05:17→23:40)
[2023-12-22 05:34] LABS: Absolute Lymphocyte Count 0.96 X10^3/uL (0.83-4.51); Absolute Neutrophil Count 11.8 X10^3/uL (2.0-7.7); Basophil# 0.04 X10^3/uL; Basophil% 0.3 % (0-1); Eosinophil# 0.12 X10^3/uL; Eosinophils% 0.9 % (0-5); Hematocrit 37.5 % (37-47); Hemoglobin 11.6 g/dL (12.0-15.0); Lymphocyte # 0.96 X10^3/ul (0.83-4.51); Lymphocyte % 6.8 % (19-41); Mean Corp Hgb Conc 30.9 g/dL (32-36); Mean Corpuscular Hgb 29.8 pg (27.0-32.0); Mean Corpuscular Volume 96.4 fL (81-99); Mean Platelet Vol. 10.5 fl (6.2-12.0); Monocyte# 1.06 X10^3/uL; Monocyte% 7.5 % (0-10); NRBC Flagged by Analyzer 0 % (0-5); Neutrophil # 11.81 X10^3/uL (2.7-7.7); Platelet Count 301 K/mm3 (150-450); RBC Distribution Width SD 49.8 fl (35.1-43.9); Red Blood Count 3.89 M/mm3 (4.2-5.4); White Blood Count 14.1 K/mm3 (4.4-11.0)
[2023-12-22 05:47] LABS: Anion Gap 3 (5-15); BUN 15 mg/dL (7-18); BUN/Creat Ratio 23.6 RATIO (10-20); Calcium,Total 8.2 mg/dL (8.5-10.1); Chloride 108 mmol/L (98-107); Creatinine, Serum 0.64 mg/dL (0.55-1.02); EST Glomerular Filtration Rate 98 mL/min (>60); Est Glom Filt Rate - Afr Amer 119 mL/min (>60); Glucose 142 mg/dL (74-106); Magnesium 2.1 mg/dL (1.6-2.6); Phosphorus 3.2 mg/dL (2.5-4.9); Potassium 3.8 mmol/L (3.5-5.1); Sodium Level 139 mmol/L (136-145)
--- NOTE | 2023-12-22 05:55 | PN.HOSP_ITS ---
Reason for Visit Reason for Visit: New onset HFrEF on outpatient echo Subjective Subjective No issues overnight. FiO2 has been weaned to 30%. Levophed is at 15 and dobutamine is at 5. Urine output has been good. No further bradycardic events however I do suspect that the Levophed is helping prevent this. Significant secretions. UA is consistent with sectioning cultures are pending. Objective Data Objective Data Vital Signs: Vital Signs Temp Pulse Resp BP Pulse Ox O2 Del Method O2 Flow Rate 97.1 F L 94 16 90/66 95 Mechanical Ventilator 6 12/22/23 00:00 12/22/23 05:00 12/22/23 05:00 12/22/23 05:00 12/22/23 05:00 12/22/23 05:00 12/21/23 14:00 FiO2 30 12/22/23 05:00 Oxygen Flow Rate (L/min) 6 Oxygen Delivery Method Mechanical Ventilator Weight: 45.405 kg Body Mass Index (BMI) 16.1 Intake & Output: Intake and Output for Last 24 Hours 12/20/23 12/21/23 12/22/23 23:59 23:59 23:59 Intake Total 440 / 440 1824.33 / 2005.23 393.53 / 393.53 Output Total 250 / 450 200 / 200 Balance 440 / 440 1574.33 / 1555.23 193.53 / 193.53 Medical Nutrition Assessment Dietitian: Malnutrition Criteria Met Start: 12/21/23 14:40 Freq: Status: Active Protocol: Document 12/21/23 14:40 SB (Rec: 12/21/23 14:40 SB [id number]) Nutrition Malnutrition Evidence of Malnutrition Exists Yes Malnutrition (severe): Chronic Evidenced By Suboptimal Energy Intake ( Severe),Physical Changes ( Severe) Clinical Problem Chronic Disease or Condition Related Malnutrition Etiology chronic severe malnutrition related to inadequate oral intake and increase energy needs d/t COPD Signs/Symptoms as evidenced by estimated PO intake meeting <75% of estimated nutritional needs x 1 year, severe muscle/fat loss in orbital, clavicle, and temporal areas, and BMI 17.0. Status Active Problem Recommendation Dietitian Recommendations/Changes Adjust to regular, no added salt with 1750ml fluid restriction d/t signs and symptoms of malnutrition. Continue 120ml ensure plus high protein 4x daily with medpass. Pt may benefit from supplemental nutrition support . Recommend appetite stimulant to increase oral intake. Will monitor weight, as available. Reviewed and approved by Lynne Hernandez RN, LD. Lab / Micro Data 12/22/23 04:55 12/22/23 04:55 Labs: Laboratory Results - last 24 hr 12/21/23 06:07: WBC 7.3, RBC 4.13 L, Hgb 12.2, Hct 38.2, MCV 92.5, MCH 29.5, M CHC 31.9 L, RDW Std Deviation 46.5 H, RDW Coeff of Oral 13.6, Plt Count 312, MPV 11.0, Immature Gran % (Auto) 0.300, Neut % (Auto) 75.9 H, Lymph % (Auto) 11.6 L, Lyman % (Auto) 9.4, Eos % (Auto) 2.5, Baso % (Auto) 0.3, Absolute Neuts (auto) 5.6, Absolute Lymphs (auto) 0.85, Nucleated RBC % 0, PT 15.4 H, INR 1.2, Sodium 137, Potassium 3.4 L, Chloride 102, Carbon Dioxide 29.0, Anion Gap 6, BUN 12, C reatinine 0.47 L, Estim Creat Clear Calc 49.27, Est GFR (MDRD) Af Amer 170, Est GFR (MDRD) Non-Af 140, BUN/Creatinine Ratio 25.7 H, Glucose 95, Calcium 8.4 L, Magnesium 1.8, Total Creatine Kinase 30, Triglycerides 79 12/21/23 06:07: Triglycerides 78, Cholesterol 181, LDL Cholesterol 91, VLDL Cholesterol 16, HDL Cholesterol 74, TSH 0.478, Free T4 1.10, Free T3 pg/dL 2.5 12/21/23 17:45: Procalcitonin 0.04 12/21/23 18:10: Urine Color Yellow, Urine Clarity Cloudy, Urine pH 6.0, Ur Specific Pierson 1.020, Urine Protein 30 H, Urine Glucose (UA) 1000 H, Urine Ketones Negative, Urine Occult Blood 50 H, Urine Nitrite Negative, Urine Bilirubin Negative, Urine Urobilinogen 1 H, Ur Leukocyte Esterase 500 H, Urine RBC 0 SEEN, Urine WBC 50-100 SEEN, Ur Squamous Epith Cells 0 SEEN, Ur Renal Epithelial Cell 0-5 SEEN, Urine Bacteria 3+, Urine Mucus 1+ 12/22/23 04:55: WBC 14.1 H, RBC 3.89 L, Hgb 11.6 L, Hct 37.5, MCV 96.4, MCH 29.8, MCHC 30.9 L, RDW Std Deviation 49.8 H, RDW Coeff of Oral 14.0, Plt Count 301, MPV 10.5, Immature Gran % (Auto) 0.500, Neut % (Auto) 84.0 H, Lymph % (Auto) 6.8 L, Lyman % (Auto) 7.5, Eos % (Auto) 0.9, Baso % (Auto) 0.3, Absolute Neuts (auto) 11.8 H, Absolute Lymphs (auto) 0.96, Nucleated RBC % 0, Sodium 139, Potassium 3.8, Chloride 108 H, Carbon Dioxide 29.0, Anion Gap 3 L, BUN 15, Creatinine 0.64, Estim Creat Clear Calc 46.90, Est GFR (MDRD) Af Amer 119, Est GFR (MDRD) Non-Af 98, BUN/Creatinine Ratio 23.6 H, Glucose 142 H, Calcium 8.2 L, Phosphorus 3.2, Magnesium 2.1 ABG Data ABG results: ABG 12/21/23 12/21/23 12/22/23 16:21 17:17 05:06 Specimen Type ART MAGI MAGI Sample Site L Radial Central Line Not entered pH 7.35 Bicarbonate Actual 31.0 H Total CO2 33 Base Excess 6 H O2 Saturation 88 L O2 % 40.0 40.0 30.0 ABG pCO2 55.8 H ABG pO2 60 L Ronan Test Positive VBG pH 7.37 7.32 VBG pO2 33 31 VBG HCO3 32 H 28 H VBG Total CO2 33 29 VBG O2 Sat (Calc) 61 54 VBG Base Excess 6 H 1 POC Mix VBG pCO2 Pt Tmp 54.8 H 53.1 H Respiration Rate 14 14 14 O2 Delivery Device Adult Vent Adult Vent Adult Vent Vent Mode AC Tidal Volume 400.0 400.0 400.0 POC PEEP 5 5 8 Radiography Diagnostic Testing: Radiology Impression Chest X-Ray 12/21/23 16:20 IMPRESSION: Left basilar atelectasis. Electronically Signed: Edwardo Leonard DO at 17:24 EDT Reading Location ID and State: [facility] / [place] Tel [phone], Service support , Physical Exam Const Negative for alert, oriented x3, no apparent distress, average body habitus, healthy appearing or well nourished Constitutional Narrative: Cachectic, older, white female who appears much older than stated age and appears chronically ill, lying in bed intubated and sedated HEENT head/scalp atraumatic and moist oral mucous membranes HEENT Narrative: ET tube and OG in place, significant temporal wasting Head and Scalp: normocephalic Eyes conjunctivae normal Eyes Narrative: Pupils are pinpoint due to fentanyl, no scleral icterus Neck no lymphadenopathy and supple Neck Narrative: Neck veins remain distended, Mallampati is 2, no thrush Resp normal respiratory effort, no retractions, no use of accessory muscles and clear to auscultation bilaterally Resp Narrative: Severely diminished diffusely with no significant adventitious sounds Auscultation: Negative for rales, rhonchi or wheezes Cardio regular rate, regular rhythm, S1 normal heart sound, S2 normal heart sound, no murmurs, no rub, no gallops and no clicks GI normal to inspection, nondistended, normoactive bowel sounds, soft to palpation and non-tender GI Narrative: Scaphoid abdomen Extremity no clubbing, cyanosis or edema Extremity Narrative: Markedly decreased lean muscle mass Skin no jaundice, no petechiae and no mottling Skin Narrative: Color is improved as it does appear her perfusion is improving, skin is thin, right femoral triple-lumen catheter clean dry and intact Neuro Neuro Narrative: Intubated sedated, per nursing she does move all extremities spontaneously suctioning and noxious stimuli Speech: speech normal Psych Psych Narrative: Unable to assess due to sedation Mood & Affect: anxious Assessment & Plan Assessment/Plan (1) Cardiogenic shock: (2) Acute on chronic hypoxic respiratory failure: (3) Hypokalemia: (4) Squamous cell carcinoma of lung: (5) Bradycardia: (6) Severe malnutrition: PLAN: Plan Cardiogenic shock -Patient acutely decompensated -Etiology is unclear but doubt ischemic -This is a rapidly declining EF as she had a normal echocardiogram on 11/30/2023 and her EF is now 25% in the outpatient setting she was 45% just a few days ago -Will recheck limited echo today with decompensation yesterday since she did have such a dramatic drop in her EF in such a short period of time I am concerned that she may have dropped further -Will need to hold goal-directed therapy due to decompensation -Continue Levophed--> currently at 15 mcg/min -Mixed venous O2 sat is less than 70 so we will continue dobutamine--> will try to wean -Will try Lasix 20 mg IV push x 1 to see if we can get her back on Starling curve and start weaning dobutamine -Cardiology is following Acute on chronic hypoxic respiratory failure -Her baseline oxygen at home is 2 L with rest and 4 L with exertion however patient has had to increase her oxygen with at home to 4 to 6 L over the past several days -FiO2 has been weaned to 30% with PEEP of 8 -Information stable. Try to wean PEEP to 5 slowly and then work towards extubation if medically ready -Sedation vacations and weaning trials per protocol -Wean O2 as able -ABG seems to be consistent with chronic hypercapnia as well -Continue nebulizers -Continue budesonide -Will utilize propofol and fentanyl for now but may need to transition sedation due to hypotension -Consult critical care/pulmonary medicine-await consultation Bradycardia -Patient had 1 episode of symptomatic bradycardia with heart rates in the upper 30s to 40s on 12/21/2023 -No further episodes overnight -Responded well to atropine -Continue to monitor on telemetry -If any recurrent bradycardia may need to utilize dopamine instead of Levophed Hypokalemia -Resolved but still less than 4 so we will give another 60 mill coincidence trying to diurese today -Magnesium is greater than 2 but continue to monitor as we should keep potassium greater than 4 and magnesium greater than 2 due to risk of arrhythmia with severely depressed EF Abnormal UA -UA is consistent with infection -Continue Unasyn for now -Await sensitivities Leukocytosis -Suspect predominantly reactive -Procalcitonin is normal -Blood, urine cultures and sputum cultures are pending -Continue Unasyn -UA was abnormal and suspect aspiration Small cell carcinoma of the lung -PET scan was negative for any metastasis -Oncology is staging mediastinum for mets -May be a candidate for curative resection -Follows with [facility] for pulmonary and oncology -Discussed with Dr. Zheng Severe malnutrition -Continue thiamine -Continue folate -Continue multivitamin -Will likely start tube feed today once we have dietitian recommendations -Dietitian is following GERD -Continue IV PPI 40 mg daily -Patient is on oral PPI at baseline Depression -Home Cymbalta is on hold Ongoing nicotine abuse -Advised cessation Essential hypertension/hyperlipidemia -Hold home losartan -Hold home atorvastatin Chronic pain -Hold home gabapentin -Hold home opiates COPD -See above -Hold home inhalers -Follows with Dr. Alma Bentley at [facility] DVT prophylaxis -Subcu Lovenox CODE STATUS -Full code as discussed with patient at admission and prior to acute decompensation requiring intubation with granddaughter at the bedside Charges/Coding Visit Charges Inpatient E&M: 97928 Subs Hosp L3
--- NOTE | 2023-12-22 05:56 | ECHOL_ITS ---
Reason For Study: CHF Procedure This was a limited 2D transthoracic echocardiogram. Exam performed portable in ICU/CCU. Left Ventricle Severely dilated left ventricle. The estimated ejection fraction is 20-25 %. Right Ventricle Normal right ventricle. Normal systolic function. Atria Normal left atrium. Normal right atrium. Mitral Valve The mitral valve is structurally normal. No prolapse or stenosis seen. Mild (1+) mitral valve insufficiency. Tricuspid Valve Normal tricuspid valve. Aortic Valve Trisinus/trileaflet aortic valve. Pulmonic Valve The pulmonic valve is not well visualized. Great Vessels Normal aortic root. Pericardium/Pleural No pericardial effusion. MMode/2D Measurements & Calculations LVIDd: 5.4 cm IVSd: 0.91 cm LVAd ap4: 35.1 cm2 LVIDs: 4.8 cm LVPWd: 0.74 cm LVLd ap4: 7.7 cm FS: 11.1 % EDV(MOD-sp4): 129.3 ml EDV(sp4-el): 135.5 ml LVAs ap4: 30.3 cm2 LVLs ap4: 7.2 cm ESV(MOD-sp4): 101.4 ml ESV(sp4-el): 108.0 ml EF(MOD-sp4): 21.6 % EF(sp4-el): 20.3 % LVAd ap2: 32.0 cm2 SV(MOD-sp4): 27.9 ml SV(MOD-sp2): 21.6 ml LVLd ap2: 8.0 cm EDV(MOD-sp2): 110.1 ml EDV(sp2-el): 108.4 ml LVAs ap2: 28.3 cm2 LVLs ap2: 7.8 cm ESV(MOD-sp2): 88.5 ml ESV(sp2-el): 87.7 ml EF(MOD-sp2): 19.6 % SV(sp4-el): 27.5 ml ECHO/Echo, Limited Study Interpretation Summary The estimated ejection fraction is 20-25 %. Severe LV systolic Dysfunction No change from previous Echo Ordering Physician: Sherrie Cui Performed By: Andres Soria RCS
[2023-12-22] MEDS: Furosemide 20 MG/2 ML VIAL IV (06:19)
[2023-12-22] MEDS: Potassium Chloride Oral Soln 20 MEQ/15 ML UDC 60 MEQ GT (06:19)
[2023-12-22] MEDS: Budesonide Respules 0.5 MG/2 ML AMPUL.NEB. INHALATION ×2 (07:05→19:05)
[2023-12-22] MEDS: Ipratropium/Albuterol Sulfate 3 ML AMPUL.NEB INHALATION ×3 (07:05→19:05)
[2023-12-22] MEDS: Folic Acid 1 MG in 0.9% Normal Saline (50mL Bag) 50 ML 200 MG IV (10:43)
[2023-12-22] MEDS: Thiamine Hydrochloride 100 MG in 0.9% Normal Saline (50mL Bag) 50 ML 200 MG IV (11:02)
[2023-12-22] MEDS: Enoxaparin 40 MG/0.4 ML Syringe SC (11:08)
[2023-12-22] MEDS: Pantoprazole Sodium 40 MG in 0.9% Normal Saline (100mL MB+) 100 ML 330 MG IV (11:09)
[2023-12-22] MEDS: Vital AF 1.2 Cal Liquid 1,000 ML 35 ML GT (13:02)
--- NOTE | 2023-12-22 13:37 | CON.PCM.CC_ITS ---
HPI Consult Data Date of Consult: 12/22/23 HPI Narrative Reason for Consultation: Respiratory failure HPI Narrative: SPENCER MENDES, is a 68 F who presents to ICU with respiratory failure after being admitted to floor day before. Acute decompensation occurred yesterday afternoon with surrounding details a bit unclear though she had recognized decreased LV function of new onset and was discovered to have refractory hypotension requiring high doses of vasopressors. Echo repeated today shows persistent low EF and global hypokinesis otherwise unchanged. She has established severe emphysema by imaging and apparently was seen at her oncologists office for new diagnosis of lung CA and sent directly to ED due to her state. She had been DNI I am told but conversation with her POA yesterday resulted in reversal of that decision prior to intubation. Of note her RN observed her to be more hemodynamically unstable when awake, blood pressure reportedly improving when sedation resumed. [facility] Medical History Hospice care Alcohol dependence Hyponatremia Nicotine dependence, cigarettes, uncomplicated Chronic hypoxemic respiratory failure Protein-calorie malnutrition, moderate Alcoholism Tobacco abuse Chronic hyponatremia Chronic respiratory failure with hypoxia Smoker Smoking greater than 30 pack years Allergic rhinitis Depression Chronic bronchitis Insomnia Emphysema of lung Hypertension Dysphagia COPD (chronic obstructive pulmonary disease) Back pain Anxiety Home Medications ?Medication ?Instructions ?Recorded ?Last Taken ?Type omeprazole 40 mg capsule,delayed 40 mg PO DAILY ACID REFLUX 10/13/15 03/05/23 History release atorvastatin 10 mg tablet 10 mg PO QHS CHOLESTEROL 10/25/20 03/05/23 History albuterol sulfate 2.5 mg/3 mL 2.5 mg inhalation Q4H PRN 03/07/23 03/05/23 History (0.083 %) solution for nebulization WHEEZING/SHORTNESS OF BREATH albuterol sulfate 90 mcg/actuation 2 puff inhalation Q4H PRN 03/07/23 03/05/23 History aerosol inhaler SHORTNESS OF BREATH duloxetine 60 mg capsule,delayed 60 mg PO DAILY DEPRESSION 03/07/23 03/05/23 History release fluticasone fur. 100 mcg-umeclid 1 inh inhalation DAILY COPD 03/07/23 03/05/23 History 62.5 mcg-vilant 25 mcg inhalat.powder (Trelegy Ellipta) gabapentin 600 mg tablet 600 mg PO QHS PAIN 03/07/23 03/05/23 History losartan 50 mg tablet 50 mg PO DAILY BLOOD PRESSURE 03/07/23 03/05/23 History dextromethorphan-guaifenesin 30 2 tab PO BID 7 days #28 tabs 11/29/23 Unknown Rx mg-600 mg tablet extended hr (Mucinex DM) folic acid 1 mg tablet 1 mg PO BREAKFAST 30 days #30 tabs 11/29/23 Unknown Rx furosemide 20 mg tablet 20 mg PO DAILY PRN LEG SWELLING 11/29/23 Unknown Rx #30 tabs thiamine HCl (vitamin B1) 100 mg 100 mg PO BREAKFAST 30 days #30 11/29/23 Unknown Rx tablet tabs varenicline 1 mg tablet (Chantix) 1 mg PO BID #56 tabs 11/29/23 Unknown Rx hydrocodone-acetaminophen 5-325mg 1 tab PO Q6H PRN PRN pain 12/21/23 Unknown History 5mg-325mg Allergy/AdvReac Type Severity Reaction Status Date / Time bupropion (From Wellbutrin) Allergy Severe hallucinati Verified 12/20/23 15:02 ons Family History Mother Heart disease Hypertension CAD (coronary artery disease) Father No problems noted. Surgical History S/P chest tube placement Social History household members: significant other housing: house history of recent travel: No Smoking Status: Current some day smoker tobacco type: cigarettes quit status: considering quitting alcohol intake: current alcohol intake frequency: a few times a week details: 4-6 beers daily prior->down to 3-4 per week. substance use type: does not use ROS Review of Systems ROS Unobtainable: due to encephalopathy and due to endotracheal tube Objective Data Objective Data Vital Signs: Vital Signs Last response 3 Temperature 36.2 C L 12/22/23 08:00 Temperature Source Temporal 12/22/23 08:00 Pulse Rate 92 12/22/23 11:10 Respiratory Rate 16 12/22/23 11:10 Respiratory Effort Mechanically Ventilated 12/22/23 07:45 Respiratory Depth Normal 12/22/23 07:45 Respiratory Pattern Normal 12/22/23 11:10 Blood Pressure 121/76 H 12/22/23 11:30 Blood Pressure Mean 91 12/22/23 11:30 Blood Pressure Source Monitor 12/22/23 11:00 Blood Pressure Position Semi-Fowlers 12/22/23 11:00 Blood Pressure Location Left Arm 12/22/23 11:00 Pulse Ox 94 12/22/23 11:10 Oxygen Delivery Method Mechanical Ventilator 12/22/23 11:00 Oxygen Flow Rate (L/min) 6 12/21/23 14:00 Fraction of Inspired Oxygen (FIO2) 30 12/22/23 11:10 I&O: I&O Last 24 Hours 3 12/21/23 12/22/23 12/22/23 23:59 11:59 23:59 Intake Total 1824.33 / 2004.23 936.05 / 1147.25 211.2 / 1147.25 Output Total 250 / 450 400 / 875 475 / 875 Balance 1574.33 / 1555.23 536.05 / 272.25 -263.8 / 272.25 I&O: Total Stay 3 12/20/23 15:01 thru 12/22/23 12:56 Intake Total 3411.58 Output Total 1125 Balance 2286.58 Current Meds Ordered / Administered: Current meds ordered / Administered 3 Generic Name Dose Route Start Last Admin Trade Name Freq PRN Reason Stop Dose Admin Acetaminophen 650 mg 12/20/23 18:35 12/21/23 10:44 Acetaminophen 325 Mg Tablet PO 650 mg Q6H PRN PRN Administration Pain 1-10 Or Fever >100.7 Albuterol Sulfate 2.5 mg 12/20/23 18:35 Albuterol 2.5 Mg/3 Ml Vial.Neb. INHALATION Q2H PRN PRN SOB &/OR WHEEZING Albuterol/Ipratropium 3 ml 12/20/23 18:40 12/22/23 07:05 Ipratropium/Albuterol Sulfate 3 Ml Ampul.Neb INHALATION 3 ml Q6HWA.RT EDWARD Administration Atorvastatin Calcium 10 mg 12/20/23 22:00 12/20/23 20:01 Atorvastatin Calcium 10 Mg Tablet PO 10 mg QHS EDWARD Administration Budesonide 0.5 mg 12/20/23 18:40 12/22/23 07:05 Budesonide Respules 0.5 Mg/2 Ml Ampul.Neb. INHALATION 0.5 mg Q12H.RT EDWARD Administration Carvedilol 6.25 mg 12/21/23 10:00 12/21/23 09:44 Carvedilol 6.25 Mg Tablet PO 6.25 mg BID EDWARD Administration Protocol Duloxetine HCl 60 mg 12/21/23 10:00 12/21/23 09:35 Duloxetine Hcl 60 Mg Capsule PO 60 mg DAILY EDWARD Administration Empagliflozin 10 mg 12/21/23 10:00 12/21/23 10:42 Empagliflozin 10 Mg Tablet PO 10 mg DAILY EDWARD Administration Enoxaparin Sodium 40 mg 12/21/23 10:00 12/22/23 11:08 Enoxaparin 40 Mg/0.4 Ml Syringe SC 40 mg DAILY EDWARD Administration Gabapentin 600 mg 12/21/23 22:00 Gabapentin 600 Mg Tablet PO QHS EDWARD Dobutamine HCl 500 mg/ 250 mls @ 6.81 mls/hr 12/21/23 13:40 12/22/23 11:00 Dextrose IV 5 mcg/kg/min .[id number] EDWARD 6.8 mls/hr Titration Protocol 5 MCG/KG/MIN Norepinephrine Bitartrate 8 mg 250 mls @ 9.375 mls/hr 12/21/23 14:30 12/22/23 11:30 / Sodium Chloride CONT INF 15 mcg/min .[id number] EDWARD 28.1 mls/hr Titration Protocol 5 MCG/MIN Dopamine HCl/Dextrose 800 mg in 250 mls @ 4.472 mls/hr 12/21/23 14:45 12/21/23 17:40 CONT INF Not Given .[id number] EDWARD Protocol 5 MCG/KG/MIN Fentanyl 100 mls @ 5 mls/hr 12/21/23 14:55 12/22/23 11:00 CONT INF 100 mcg/hr UD EDWARD 10 mls/hr Titration Protocol 50 MCG/HR Propofol 1,000 mg in 100 mls @ 2.724 mls/hr 12/21/23 15:25 12/22/23 11:00 Diprivan CONT INF 30 mcg/kg/min .Q12H EDWARD 8.2 mls/hr Titration Protocol 10 MCG/KG/MIN Thiamine HCl 100 mg/ Sodium 51 mls @ 200 mls/hr 12/22/23 10:00 12/22/23 12:56 Chloride IV Infused DAILY EDWARD Infusion Folic Acid 1 mg/ Sodium 50.2 mls @ 200 mls/hr 12/22/23 10:00 12/22/23 12:56 Chloride IV Infused DAILY EDWARD Infusion Pantoprazole Sodium 40 mg/ 110 mls @ 330 mls/hr 12/22/23 10:00 12/22/23 12:56 Sodium Chloride IV Infused Q24 EDWARD Infusion Ampicillin Sodium/Sulbactam 112 mls @ 150 mls/hr 12/21/23 18:00 12/22/23 12:55 Sodium 3 gm/ Sodium Chloride IV 150 mls/hr Q6 EDWARD Administration Enteral Nutritional Formula 1,000 mls @ 35 mls/hr 12/22/23 10:55 12/22/23 13:02 Vital Af 1.2 Tod Liquid GT 35 mls/hr .[id number] EDWARD Administration Lorazepam 0.5 mg 12/20/23 18:35 Lorazepam 0.5 Mg Tablet PO Q2H PRN PRN CIWA score >12 Protocol Melatonin 3 mg 12/20/23 18:35 Melatonin 3 Mg Tablet PO QHS PRN PRN INSOMNIA Nicotine 21 mg 12/21/23 10:00 12/22/23 11:08 Nicotine 21 Mg Patch TD 21 mg DAILY EDWARD Administration Ondansetron HCl 4 mg 12/20/23 18:35 12/21/23 13:34 Ondansetron 4 Mg/2 Ml Vial IV 4 mg Q8H PRN PRN Administration NAUSEA/VOMITING Oxycodone HCl 5 mg 12/21/23 08:19 Oxycodone 5 Mg Tablet PO Q6H PRN PRN Pain Score 1-10 Sacubitril/Valsartan 1 each 12/21/23 10:00 12/21/23 10:42 Sacubitril/Valsartan 24/26 Mg Tablet PO 1 each BID EDWARD Administration Senna/Docusate Sodium 2 tablet 12/20/23 18:35 Senna/Docusate Sodium 1 Tablet PO BID PRN PRN Constipation Sodium Chloride 10 - 40 ml 12/20/23 18:37 12/22/23 00:40 0.9% Saline Lock 10 Ml Syringe IV 20 ml UD PRN Administration SALINE FLUSH Spironolactone 25 mg 12/21/23 10:00 12/21/23 09:44 Spironolactone 25 Mg Tablet PO 25 mg DAILY [facility] Administration Protocol Varenicline 1 mg 12/21/23 10:00 12/21/23 10:42 Varenicline 1 Mg Tablet PO Not Given BID [facility] Physical Exam Const General Appearance: patient mechanically ventilated Exam Limitations: altered mental status HEENT normocephalic Neck no lymphadenopathy Chest inspection of chest normal Resp Auscultation: diminished lung sounds Medical Records Data Medical Nutrition Assessment Dietitian: Malnutrition Criteria Met Start: 12/21/23 14:40 Freq: Status: Active Protocol: Document 12/21/23 14:40 SB (Rec: 12/21/23 14:40 SB [id number]) Nutrition Malnutrition Evidence of Malnutrition Exists Yes Malnutrition (severe): Chronic Evidenced By Suboptimal Energy Intake ( Severe),Physical Changes ( Severe) Clinical Problem Chronic Disease or Condition Related Malnutrition Etiology chronic severe malnutrition related to inadequate oral intake and increase energy needs d/t COPD Signs/Symptoms as evidenced by estimated PO intake meeting <75% of estimated nutritional needs x 1 year, severe muscle/fat loss in orbital, clavicle, and temporal areas, and BMI 17.0. Status Active Problem Recommendation Dietitian Recommendations/Changes Adjust to regular, no added salt with 1750ml fluid restriction d/t signs and symptoms of malnutrition. Continue 120ml ensure plus high protein 4x daily with medpass. Pt may benefit from supplemental nutrition support . Recommend appetite stimulant to increase oral intake. Will monitor weight, as available. Reviewed and approved by Lynne Hernandez RN, LD. Lab / Micro Data Attestation: I reviewed the patient's lab results. 12/22/23 04:55 12/22/23 04:55 Labs: Laboratory Results - last 24 hr 12/21/23 06:07: Total Creatine Kinase 30, Triglycerides 78 12/21/23 17:45: Procalcitonin 0.04 12/21/23 18:10: Urine Color Yellow, Urine Clarity Cloudy, Urine pH 6.0, Ur Specific [place] 1.020, Urine Protein 30 H, Urine Glucose (UA) 1000 H, Urine Ketones Negative, Urine Occult Blood 50 H, Urine Nitrite Negative, Urine Bilirubin Negative, Urine Urobilinogen 1 H, Ur Leukocyte Esterase 500 H, Urine RBC 0 SEEN, Urine WBC 50-100 SEEN, Ur Squamous Epith Cells 0 SEEN, Ur Renal Epithelial Cell 0-5 SEEN, Urine Bacteria 3+, Urine Mucus 1+ 12/22/23 04:55: WBC 14.1 H, RBC 3.89 L, Hgb 11.6 L, Hct 37.5, MCV 96.4, MCH 29.8, MCHC 30.9 L, RDW Std Deviation 49.8 H, RDW Coeff of Oral 14.0, Plt Count 301, MPV 10.5, Immature Gran % (Auto) 0.500, Neut % (Auto) 84.0 H, Lymph % (Auto) 6.8 L, Drew % (Auto) 7.5, Eos % (Auto) 0.9, Baso % (Auto) 0.3, Absolute Neuts (auto) 11.8 H, Absolute Lymphs (auto) 0.96, Nucleated RBC % 0, Sodium 139, Potassium 3.8, Chloride 108 H, Carbon Dioxide 29.0, Anion Gap 3 L, BUN 15, Creatinine 0.64, Estim Creat Clear Calc 46.90, Est GFR (MDRD) Af Amer 119, Est GFR (MDRD) Non-Af 98, BUN/Creatinine Ratio 23.6 H, Glucose 142 H, Calcium 8.2 L, Phosphorus 3.2, Magnesium 2.1 Micro: Microbiology 12/21/23 17:30 Sputum, Induced/Lukens Gram Stain - Final 12/21/23 17:30 Sputum, Induced/Lukens Respiratory Culture - Preliminary Alpha Hemolytic Streptococcus 12/21/23 18:10 Urine Catheter - Catheter Urine Culture - Preliminary Culture exhibits no growth. ABG Data ABG results: ABG 12/21/23 12/21/23 12/22/23 16:21 17:17 05:06 Specimen Type ART MAGI MAGI Sample Site L Radial Central Line Not entered pH 7.35 Bicarbonate Actual 31.0 H Total CO2 33 Base Excess 6 H O2 Saturation 88 L O2 % 40.0 40.0 30.0 ABG pCO2 55.8 H ABG pO2 60 L Ronan Test Positive VBG pH 7.37 7.32 VBG pO2 33 31 VBG HCO3 32 H 28 H VBG Total CO2 33 29 VBG O2 Sat (Calc) 61 54 VBG Base Excess 6 H 1 POC Mix VBG pCO2 Pt Tmp 54.8 H 53.1 H Respiration Rate 14 14 14 O2 Delivery Device Adult Vent Adult Vent Adult Vent Vent Mode AC Tidal Volume 400.0 400.0 400.0 POC PEEP 5 5 8 Imaging Radiology Impression Chest X-Ray 12/21/23 16:20 IMPRESSION: Left basilar atelectasis. Electronically Signed: Edwardo Leonard DO at 17:24 EDT , Echocardiogram 12/22/23 05:56 Interpretation Summary The estimated ejection fraction is 20-25 %. Severe LV systolic Dysfunction No change from previous Echo Ordering Physician: Sherrie Cui Performed By: Andres Soria RCS Assessment and Plan . Assessment and plan: 1. Acute respiratory failure, likely multifactorial but certainly with components of COPD contributing 2. circulatory shock, evidently cardiogenic. No echo evidence for pericardial process 3. lung CA, details remain unclear 4. Suggest: 1. blood gases reviewed, vent adjusted 2. empiric Abx as ordered 3. await cardiology opinion RE decreased LVEF 4. standard px Critical Care Time: 60 minutes The entirety of this encounter was done via Telemedicine
--- NOTE | 2023-12-22 14:12 | PCM.PN.CARD ---
Subjective Subjective Patient on mechanical ventilator With limited Objective Data Vital Signs: Vital Signs Temp Pulse Resp BP Pulse Ox O2 Del Method O2 Flow Rate 97.2 F L 85 16 121/76 H 94 Mechanical Ventilator 6 12/22/23 08:00 12/22/23 13:51 12/22/23 13:51 12/22/23 11:30 12/22/23 13:51 12/22/23 11:00 12/21/23 14:00 FiO2 30 12/22/23 13:51 Oxygen Flow Rate (L/min) 6 Oxygen Delivery Method Mechanical Ventilator Weight: 102 lb 1.184 oz Body Mass Index (BMI) 16.5 Intake & Output: Intake and Output for Last 24 Hours 12/20/23 12/21/23 12/22/23 23:59 23:59 23:59 Intake Total 440 / 440 1824.33 / 2005.23 1147.25 / 1147.25 Output Total 250 / 450 875 / 875 Balance 440 / 440 1574.33 / 1555.23 272.25 / 272.25 Lab / Micro Data 12/22/23 04:55 12/22/23 04:55 Labs: Laboratory Results - last 24 hr 12/21/23 06:07: Total Creatine Kinase 30, Triglycerides 78 12/21/23 17:45: Procalcitonin 0.04 12/21/23 18:10: Urine Color Yellow, Urine Clarity Cloudy, Urine pH 6.0, Ur Specific [place] 1.020, Urine Protein 30 H, Urine Glucose (UA) 1000 H, Urine Ketones Negative, Urine Occult Blood 50 H, Urine Nitrite Negative, Urine Bilirubin Negative, Urine Urobilinogen 1 H, Ur Leukocyte Esterase 500 H, Urine RBC 0 SEEN, Urine WBC 50-100 SEEN, Ur Squamous Epith Cells 0 SEEN, Ur Renal Epithelial Cell 0-5 SEEN, Urine Bacteria 3+, Urine Mucus 1+ 12/22/23 04:55: WBC 14.1 H, RBC 3.89 L, Hgb 11.6 L, Hct 37.5, MCV 96.4, MCH 29.8, MCHC 30.9 L, RDW Std Deviation 49.8 H, RDW Coeff of Oral 14.0, Plt Count 301, MPV 10.5, Immature Gran % (Auto) 0.500, Neut % (Auto) 84.0 H, Lymph % (Auto) 6.8 L, Crawford % (Auto) 7.5, Eos % (Auto) 0.9, Baso % (Auto) 0.3, Absolute Neuts (auto) 11.8 H, Absolute Lymphs (auto) 0.96, Nucleated RBC % 0, Sodium 139, Potassium 3.8, Chloride 108 H, Carbon Dioxide 29.0, Anion Gap 3 L, BUN 15, Creatinine 0.64, Estim Creat Clear Calc 46.90, Est GFR (MDRD) Af Amer 119, Est GFR (MDRD) Non-Af 98, BUN/Creatinine Ratio 23.6 H, Glucose 142 H, Calcium 8.2 L, Phosphorus 3.2, Magnesium 2.1 Micro: Microbiology 12/21/23 17:30 Sputum, Induced/Lukens Gram Stain - Final 12/21/23 17:30 Sputum, Induced/Lukens Respiratory Culture - Preliminary Alpha Hemolytic Streptococcus 12/21/23 18:10 Urine Catheter - Catheter Urine Culture - Preliminary Culture exhibits no growth. ABG Data ABG results: ABG 12/21/23 12/21/23 12/22/23 16:21 17:17 05:06 Specimen Type ART MAGI MAGI Sample Site L Radial Central Line Not entered pH 7.35 Bicarbonate Actual 31.0 H Total CO2 33 Base Excess 6 H O2 Saturation 88 L O2 % 40.0 40.0 30.0 ABG pCO2 55.8 H ABG pO2 60 L Ronan Test Positive VBG pH 7.37 7.32 VBG pO2 33 31 VBG HCO3 32 H 28 H VBG Total CO2 33 29 VBG O2 Sat (Calc) 61 54 VBG Base Excess 6 H 1 POC Mix VBG pCO2 Pt Tmp 54.8 H 53.1 H Respiration Rate 14 14 14 O2 Delivery Device Adult Vent Adult Vent Adult Vent Vent Mode AC Tidal Volume 400.0 400.0 400.0 POC PEEP 5 5 8 Cardiology Labs/Tests 12/21/23 06:07: Triglycerides 78 12/21/23 16:21: pH 7.35, Bicarbonate Actual 31.0 H, Base Excess 6 H, O2 Saturation 88 L, ABG pCO2 55.8 H, ABG pO2 60 L, Ronan Test Positive 12/21/23 17:17: VBG pH 7.37, VBG pO2 33, VBG HCO3 32 H, VBG O2 Sat (Calc) 61, VBG Base Excess 6 H 12/21/23 18:10: Urine Color Yellow, Urine Clarity Cloudy, Urine pH 6.0, Ur Specific [place] 1.020, Urine Protein 30 H, Urine Glucose (UA) 1000 H, Urine Ketones Negative, Urine Occult Blood 50 H, Urine Nitrite Negative, Urine Bilirubin Negative, Urine Urobilinogen 1 H, Ur Leukocyte Esterase 500 H, Urine RBC 0 SEEN, Urine WBC 50-100 SEEN 12/22/23 04:55: WBC 14.1 H, RBC 3.89 L, Hgb 11.6 L, Hct 37.5, MCV 96.4, MCH 29.8, MCHC 30.9 L, Plt Count 301, MPV 10.5, Immature Gran % (Auto) 0.500, Neut % (Auto) 84.0 H, Lymph % (Auto) 6.8 L, [place] % (Auto) 7.5, Eos % (Auto) 0.9, Baso % (Auto) 0.3, Absolute Neuts (auto) 11.8 H, Nucleated RBC % 0, Sodium 139, Potassium 3.8, Chloride 108 H, Carbon Dioxide 29.0, Anion Gap 3 L, BUN 15, Creatinine 0.64, Est GFR (MDRD) Af Amer 119, Est GFR (MDRD) Non-Af 98, BUN/Creatinine Ratio 23.6 H, Glucose 142 H, Calcium 8.2 L, Phosphorus 3.2, Magnesium 2.1 12/22/23 05:06: VBG pH 7.32, VBG pO2 31, VBG HCO3 28 H, VBG O2 Sat (Calc) 54, VBG Base Excess 1 Rhythm: EKG: ECHO: Stress Test: Cardiac Cath: PCI: CT Surgery: Holter monitor: EPS: PPM: CXR: Chest CT Scan: Radiography Diagnostic Testing: Radiology Impression Chest X-Ray 12/21/23 16:20 IMPRESSION: Left basilar atelectasis. Electronically Signed: Edwardo Leonard DO at 17:24 EDT Reading Location ID and State: [facility] / [place] Tel [phone], Service support , Echocardiogram 12/22/23 05:56 Interpretation Summary The estimated ejection fraction is 20-25 %. Severe LV systolic Dysfunction No change from previous Echo Ordering Physician: Sherrie Cui Performed By: Andres Soria RCS Assessment & Plan Assessment/Plan (1) Squamous cell carcinoma of lung: (2) Severe malnutrition: (3) Congestive heart failure with left ventricular systolic dysfunction: PLAN: Plan Cardiac care plan and recommendations; 68-year-old patient transferred from the progressive care unit To ICU due to refractory hypotension requiring vasopressor support and intubated. Patient has acute systolic LV dysfunction with cardiogenic shock Has also a diagnosis of squamous cell carcinoma of the lung. Patient on a ventilator The underlying etiology of severe LV dysfunction is likely multifactorial Patient had a history of alcohol abuse Possible secondary to viral myocarditis Will continue the current medical treatment and inotropic support Will discuss further plan to evaluate underlying etiology possible Lexiscan sestamibi versus cardiac catheterization once she is stable Also will discuss guideline directed therapy Today reviewed all the evaluation which included the current lab result the imaging studies as well as the current medication from cardiac standpoint patient tolerating well the Aldactone the diuretic, low-dose beta-julienne carvedilol Will follow-up clinically
[2023-12-22] MEDS: DOBUTamine IV 500 MG in Dextrose 5%-Water (250mL Bag) 210 ML 6.8 MG IV (14:40)
[2023-12-22] MEDS: Propofol 10MG/Ml 1,000 MG/100 ML Bottle 8.2 MG CONT INF (16:41)
--- NOTE | 2023-12-22 21:15 | NURSING ---
Patient belongings list updated with personal patients' items going home with Dylan Winter. A total of 6 rings and 1 bracelet were removed d/t increasing generalized edema. These 7 pieces of jewelry along with the patient's purse were sent. Now only remaining from the patient's belongings are clothes and nicotine gum [placed in bag with clothes in Room #5 closet].
[2023-12-23] VITALS (77 sets, daily range): BP systolic 76–155; BP diastolic 41–94; PULSE 76–99; RESP 16–23; TEMP 36.2–36.9; O2SAT 89–96; BMI 16.3
[2023-12-23] MEDS: Propofol 10MG/Ml 1,000 MG/100 ML Bottle 8.2 MG CONT INF (03:30)
[2023-12-23] MEDS: Ampicillin/Sulbactam 3 GM in 0.9% Normal Saline (100mL MB+) 100 ML IV ×4 (05:07→23:35)
[2023-12-23] MEDS: 0.9% Saline Lock 10 ML Syringe IV ×2 (05:08→07:50)
[2023-12-23 05:22] LABS: Absolute Lymphocyte Count 0.86 X10^3/uL (0.83-4.51); Absolute Neutrophil Count 11.8 X10^3/uL (2.0-7.7); Basophil# 0.02 X10^3/uL; Basophil% 0.1 % (0-1); Eosinophil# 0.07 X10^3/uL; Eosinophils% 0.5 % (0-5); Hematocrit 33.2 % (37-47); Hemoglobin 10.4 g/dL (12.0-15.0); Lymphocyte # 0.86 X10^3/ul (0.83-4.51); Lymphocyte % 6.1 % (19-41); Mean Corp Hgb Conc 31.3 g/dL (32-36); Mean Corpuscular Hgb 30.1 pg (27.0-32.0); Mean Platelet Vol. 10.5 fl (6.2-12.0); Monocyte# 1.22 X10^3/uL; Monocyte% 8.7 % (0-10); NRBC Flagged by Analyzer 0 % (0-5); Neutrophil # 11.76 X10^3/uL (2.7-7.7); Neutrophil % 84.2 % (47-70); Platelet Count 259 K/mm3 (150-450); RBC Distribution Width CV 14.6 % (11.6-14.6); RBC Distribution Width SD 50.7 fl (35.1-43.9); Red Blood Count 3.46 M/mm3 (4.2-5.4)
[2023-12-23 05:38] LABS: ALB/GLOB Ratio 0.8 RATIO (0.9-2.4); AST(SGOT) 27 U/L (15-37); Alanine Aminotransfer ALT/SGPT 18 U/L (13-56); Albumin, Serum 2.4 g/dL (3.2-5.0); Alkaline Phosphatase 46 U/L (45-117); Anion Gap 3 (5-15); BUN 16 mg/dL (7-18); BUN/Creat Ratio 24.4 RATIO (10-20); Calcium,Total 8.2 mg/dL (8.5-10.1); Chloride 112 mmol/L (98-107); Creatinine, Serum 0.66 mg/dL (0.55-1.02); EST Glomerular Filtration Rate 95 mL/min (>60); Est Glom Filt Rate - Afr Amer 115 mL/min (>60); Estimated Creatinine Clearance 47.72 ml/min; Globulin 2.9 g/dL (2.2-4.2); Glucose 132 mg/dL (74-106); Magnesium 2.1 mg/dL (1.6-2.6); Potassium 3.9 mmol/L (3.5-5.1); Protein, Total 5.3 g/dL (6.4-8.2); Sodium Level 143 mmol/L (136-145)
[2023-12-23] MEDS: fentaNYL drip 100 ML 10 MCG CONT INF ×2 (06:08→16:08)
[2023-12-23] MEDS: Budesonide Respules 0.5 MG/2 ML AMPUL.NEB. INHALATION ×2 (07:41→19:28)
[2023-12-23] MEDS: Ipratropium/Albuterol Sulfate 3 ML AMPUL.NEB INHALATION ×3 (07:41→19:28)
[2023-12-23 07:51] LABS: Blood Gas Specimen Type VEN; O2 Delivery Device Not entered; PEEP 8; RR 16; SITE Not entered; VBG BASE EXCESS 1 mmol/L (-1.0-3.5); VBG Bicarbonate 27 mmol/L (22-26); VBG PO2 34 mmHg (25-40); VBG SO2 60 % (50-70); VBG TCO2 29 mmol/L (23-33); VBG pCO2 50.6 mmHg (41-51); VBG pH 7.34 (7.32-7.42)
--- NOTE | 2023-12-23 07:51 | PCM.PN.HOSP ---
Reason for Visit Reason for Visit: New HFpEF Subjective Subjective Pressors were stopped overnight however Levophed had to be reinitiated. Waiting for repeat mixed venous O2 sat to look at extraction to see if we still need dobutamine. Awakens easily with sedation vacations and becomes easily agitated. They do indicate once that happens her blood pressure starts to be compromised and tends to drop. Objective Data Objective Data Vital Signs: Vital Signs Temp Pulse Resp BP Pulse Ox O2 Del Method O2 Flow Rate 98.4 F 83 16 92/61 93 Mechanical Ventilator 6 12/23/23 04:00 12/23/23 07:00 12/23/23 07:00 12/23/23 07:00 12/23/23 07:00 12/23/23 07:00 12/21/23 14:00 FiO2 30 12/23/23 07:00 Oxygen Flow Rate (L/min) 6 Oxygen Delivery Method Mechanical Ventilator Weight: 46.2 kg Body Mass Index (BMI) 16.3 Intake & Output: Intake and Output for Last 24 Hours 12/21/23 12/22/23 12/23/23 23:59 23:59 23:59 Intake Total 1824.33 / 2005.23 2345.93 / 2576.43 860.90 / 860.90 Output Total 250 / 450 1025 / 1375 650 / 650 Balance 1574.33 / 1555.23 1320.93 / 1201.43 210.90 / 210.90 Medical Nutrition Assessment Dietitian: Malnutrition Criteria Met Start: 12/21/23 14:40 Freq: Status: Active Protocol: Document 12/21/23 14:40 SB (Rec: 12/21/23 14:40 SB [id number]) Nutrition Malnutrition Evidence of Malnutrition Exists Yes Malnutrition (severe): Chronic Evidenced By Suboptimal Energy Intake ( Severe),Physical Changes ( Severe) Clinical Problem Chronic Disease or Condition Related Malnutrition Etiology chronic severe malnutrition related to inadequate oral intake and increase energy needs d/t COPD Signs/Symptoms as evidenced by estimated PO intake meeting <75% of estimated nutritional needs x 1 year, severe muscle/fat loss in orbital, clavicle, and temporal areas, and BMI 17.0. Status Active Problem Recommendation Dietitian Recommendations/Changes Adjust to regular, no added salt with 1750ml fluid restriction d/t signs and symptoms of malnutrition. Continue 120ml ensure plus high protein 4x daily with medpass. Pt may benefit from supplemental nutrition support . Recommend appetite stimulant to increase oral intake. Will monitor weight, as available. Reviewed and approved by Lynne Hernandez RN, LD. Lab / Micro Data 12/23/23 05:10 12/23/23 05:10 Labs: Laboratory Results - last 24 hr 12/23/23 05:10: WBC 14.0 H, RBC 3.46 L, Hgb 10.4 L, Hct 33.2 L, MCV 96.0, MCH 30.1, MCHC 31.3 L, RDW Std Deviation 50.7 H, RDW Coeff of Oral 14.6, Plt Count 259, MPV 10.5, Immature Gran % (Auto) 0.400, Neut % (Auto) 84.2 H, Lymph % (Auto) 6.1 L, [place] % (Auto) 8.7, Eos % (Auto) 0.5, Baso % (Auto) 0.1, Absolute Neuts (auto) 11.8 H, Absolute Lymphs (auto) 0.86, Nucleated RBC % 0, Sodium 143, Potassium 3.9, Chloride 112 H, Carbon Dioxide 28.0, Anion Gap 3 L, BUN 16, Creatinine 0.66, Estim Creat Clear Calc 47.72, Est GFR (MDRD) Af Amer 115, Est GFR (MDRD) Non-Af 95, BUN/Creatinine Ratio 24.4 H, Glucose 132 H, Calcium 8.2 L, Magnesium 2.1, Total Bilirubin 0.50, AST 27, ALT 18, Alkaline Phosphatase 46, Total Protein 5.3 L, Albumin 2.4 L, Globulin 2.9, Albumin/Globulin Ratio 0.8 L Micro: Microbiology 12/21/23 17:30 Sputum, Induced/Lukens Gram Stain - Final 12/21/23 17:30 Sputum, Induced/Lukens Respiratory Culture - Preliminary Alpha Hemolytic Streptococcus 12/21/23 18:10 Urine Catheter - Catheter Urine Culture - Preliminary Culture exhibits no growth. Radiography Diagnostic Testing: Radiology Impression Echocardiogram 12/22/23 05:56 Interpretation Summary The estimated ejection fraction is 20-25 %. Severe LV systolic Dysfunction No change from previous Echo Ordering Physician: Sherrei Cui Performed By: Andres Soria RCS Physical Exam Narrative General: Alert, oriented, very thin HEENT: Atraumatic, normocephalic Eyes: Anicteric, normal conjunctiva, extraocular movements grossly intact Neck: Supple Respiratory: Somewhat diminished bilaterally, no wheezes or rhonchi, little bit of increased work of breathing Cardiovascular: Regular rate and rhythm with PVCs GI: Soft, nontender, nondistended Extremities: No edema Musculoskeletal: Moving all extremities Neuro: No overt focal neurological deficits Skin: No rashes appreciated Psych: Cooperative Const Negative for alert, oriented x3, no apparent distress, average body habitus, healthy appearing or well nourished Constitutional Narrative: Cachectic, older, white female who appears much older than stated age and appears chronically ill, lying in bed intubated and sedated HEENT head/scalp atraumatic and moist oral mucous membranes HEENT Narrative: ET tube and OG in place Head and Scalp: normocephalic Eyes PERRL, EOMs intact bilaterally and conjunctivae normal Eyes Narrative: Pupils are pinpoint due to fentanyl, no scleral icterus Resp normal respiratory effort, no retractions, no use of accessory muscles and clear to auscultation bilaterally Resp Narrative: Severely diminished diffusely with no significant adventitious sounds Auscultation: Negative for rales, rhonchi or wheezes Cardio regular rate, regular rhythm, S1 normal heart sound, S2 normal heart sound, no murmurs, no rub, no gallops and no clicks GI normal to inspection, nondistended, normoactive bowel sounds, soft to palpation and non-tender GI Narrative: Scaphoid abdomen Extremity no clubbing, cyanosis or edema Extremity Narrative: Markedly decreased lean muscle mass Skin no jaundice, no petechiae and no mottling Skin Narrative: Her color is much less ashen, skin is warm to touch distally Neuro Neuro Narrative: Intubated and sedated Psych Psych Narrative: Unable to assess due to sedation Assessment & Plan Assessment/Plan (1) Cardiogenic shock: (2) Acute on chronic hypoxic respiratory failure: (3) Hypokalemia: (4) Squamous cell carcinoma of lung: (5) Bradycardia: (6) Severe malnutrition: PLAN: Plan Cardiogenic shock -Patient acutely decompensated on PCU on 12/21/2023 -Etiology is unclear but doubt ischemic -This is a rapidly declining EF as she had a normal echocardiogram on 11/30/2023 and her EF is now 25% in the outpatient setting she was 45% just a few days ago -Repeat echo was read at 20 to 25% -Will need to hold goal-directed therapy due to decompensation -Continue Levophed -Dobutamine was stopped due to titration orders but mixed venous O2 sat of the distal port of her triple-lumen catheter in the IVC shows a sat of 60% indicating that she still is having poor extraction so we will restart dobutamine at 5 mcg--> I do expect that her Levophed requirements may go up a bit -Repeat VBG off distal port of the triple-lumen catheter again tomorrow to reassess -Will try Lasix 20 mg IV push x 1 again today to see if we can get her back on [place] curve and start weaning dobutamine -Cardiology is following -[facility] is following Acute on chronic hypoxic respiratory failure -Her baseline oxygen at home is 2 L with rest and 4 L with exertion however patient has had to increase her oxygen with at home to 4 to 6 L over the past several days -FiO2 has been weaned to 30% with PEEP of 8 with stable status -Information stable. Try to wean PEEP to 5 slowly and then work towards extubation if medically ready -Sedation vacations and weaning trials per protocol -Wean O2 as able -ABG seems to be consistent with chronic hypercapnia as well -Continue nebulizers -Continue budesonide -Will utilize propofol and fentanyl for now but may need to transition sedation due to hypotension -Tube feeds started yesterday and patient is tolerating -Consult critical care/pulmonary medicine-appreciate input Alpha hemolytic strep pneumonia -Sensitivities are pending -Continue Unasyn day 3 of 7 Bradycardia -Patient had 1 episode of symptomatic bradycardia with heart rates in the upper 30s to 40s on 12/21/2023 -Patient has had no further episodes -Responded well to atropine -Continue to monitor on telemetry -If any recurrent bradycardia may need to utilize dopamine instead of Levophed Hypokalemia -Resolved but still less than 4 so we will give another 40 mEq via OG -Mag remains greater than 2 Abnormal UA -Culture was unremarkable Leukocytosis -Remains up but stable -Procalcitonin was within normal limits -Blood cultures pending -Sputum culture with alpha hemolytic strep -On Unasyn and will continue -Urine culture was unremarkable despite UA suggestive of infection Acute anemia -Mild but trends down -No signs of bleeding -If further trends down tomorrow may need to workup further -Only anticoagulation patient is on his DVT prophylaxis Small cell carcinoma of the lung -PET scan was negative for any metastasis -Oncology is staging mediastinum for mets -May be a candidate for curative resection -Follows with [facility] for pulmonary and oncology -Discussed with Dr. Zheng Severe malnutrition -Continue thiamine -Continue folate -Continue multivitamin -Tube feeds are running and at goal -Dietitian is following GERD -Continue IV PPI 40 mg daily -Patient is on oral PPI at baseline Depression -Home Cymbalta is on hold Ongoing nicotine abuse -Advised cessation Essential hypertension/hyperlipidemia -Hold home losartan -Hold home atorvastatin Chronic pain -Hold home gabapentin -Hold home opiates COPD -See above -Hold home inhalers -Follows with Dr. Alma Bentley at [facility] DVT prophylaxis -Subcu Lovenox but may need to hold depending on hemoglobin tomorrow CODE STATUS -Full code as discussed with patient at admission and prior to acute decompensation requiring intubation with granddaughter at the bedside Charges/Coding Visit Charges Inpatient E&M: 89570 Subs Hosp L3
[2023-12-23] MEDS: Furosemide 20 MG/2 ML VIAL IV (08:19)
[2023-12-23] MEDS: Pantoprazole Sodium 40 MG in 0.9% Normal Saline (100mL MB+) 100 ML 330 MG IV (08:19)
[2023-12-23] MEDS: Enoxaparin 40 MG/0.4 ML Syringe SC (08:58)
[2023-12-23] MEDS: DOBUTamine IV 500 MG in Dextrose 5%-Water (250mL Bag) 210 ML 6.8 MG IV (09:02)
--- NOTE | 2023-12-23 09:48 | PCM.PN.TICU ---
Objective Data Objective Data Vital Signs: Vital Signs Last response Temperature 36.4 C L 12/23/23 08:00 Temperature Source Temporal 12/23/23 08:00 Pulse Rate 89 12/23/23 09:00 Pulse Strength Normal (2+) 12/23/23 08:13 Respiratory Rate 18 12/23/23 09:00 Respiratory Effort Non-Labored, Mechanically Ventilated 12/23/23 08:00 Respiratory Depth Normal 12/23/23 08:00 Respiratory Pattern Normal 12/23/23 08:00 Blood Pressure 88/58 L 12/23/23 09:30 Blood Pressure Mean 68 12/23/23 09:30 Blood Pressure Source Monitor 12/23/23 09:30 Blood Pressure Position Semi-Fowlers 12/23/23 09:30 Blood Pressure Location Left Arm 12/23/23 09:30 Pulse Ox 89 12/23/23 09:00 Oxygen Delivery Method Mechanical Ventilator 12/23/23 09:00 Oxygen Flow Rate (L/min) 6 12/21/23 14:00 Fraction of Inspired Oxygen (FIO2) 30 12/23/23 09:00 I&O: I&O Last 24 Hours 12/22/23 12/22/23 12/23/23 11:59 23:59 11:59 Intake Total 936.05 / 2576.43 1409.88 / 2576.43 1443.24 / 1443.24 Output Total 400 / 1375 625 / 1375 650 / 650 Balance 536.05 / 1201.43 784.88 / 1201.43 793.24 / 793.24 I&O: Total Stay 12/20/23 15:01 thru 12/23/23 09:30 Intake Total 6053.50 Output Total 1925 Balance 4128.50 Current Meds Ordered / Administered: Current meds ordered / Administered Generic Name Dose Route Start Last Admin Trade Name Freq PRN Reason Stop Dose Admin Acetaminophen 650 mg 12/20/23 18:35 12/21/23 10:44 Acetaminophen 325 Mg Tablet PO 650 mg Q6H PRN PRN Administration Pain 1-10 Or Fever >100.7 Albuterol Sulfate 2.5 mg 12/20/23 18:35 Albuterol 2.5 Mg/3 Ml Vial.Neb. INHALATION Q2H PRN PRN SOB &/OR WHEEZING Albuterol/Ipratropium 3 ml 12/20/23 18:40 12/23/23 07:41 Ipratropium/Albuterol Sulfate 3 Ml Ampul.Neb INHALATION 3 ml Q6HWA.RT EDWARD Administration Atorvastatin Calcium 10 mg 12/20/23 22:00 12/20/23 20:01 Atorvastatin Calcium 10 Mg Tablet PO 10 mg QHS EDWARD Administration Budesonide 0.5 mg 12/20/23 18:40 12/23/23 07:41 Budesonide Respules 0.5 Mg/2 Ml Ampul.Neb. INHALATION 0.5 mg Q12H.RT EDWARD Administration Carvedilol 6.25 mg 12/21/23 10:00 12/21/23 09:44 Carvedilol 6.25 Mg Tablet PO 6.25 mg BID EDWARD Administration Protocol Chlorhexidine Gluconate 15 ml 12/23/23 10:00 Chlorhexidine 15 Ml PO BID EDWARD Chlorhexidine Gluconate 1 each 12/23/23 10:00 Chlorhexidine Gluc 2% Cloth 1 Each [place] TOPICAL DAILY EDWARD Duloxetine HCl 60 mg 12/21/23 10:00 12/21/23 09:35 Duloxetine Hcl 60 Mg Capsule PO 60 mg DAILY EDWARD Administration Empagliflozin 10 mg 12/21/23 10:00 12/21/23 10:42 Empagliflozin 10 Mg Tablet PO 10 mg DAILY EDWARD Administration Enoxaparin Sodium 40 mg 12/21/23 10:00 12/23/23 08:58 Enoxaparin 40 Mg/0.4 Ml Syringe SC 40 mg DAILY EDWARD Administration Gabapentin 600 mg 12/21/23 22:00 Gabapentin 600 Mg Tablet PO QHS [facility] Dobutamine HCl 500 mg/ 250 mls @ 6.81 mls/hr 12/21/23 13:40 12/23/23 09:02 Dextrose IV 5 mcg/kg/min .[id number] EDWARD 6.8 mls/hr Administration Protocol 5 MCG/KG/MIN Norepinephrine Bitartrate 8 mg 250 mls @ 9.375 mls/hr 12/21/23 14:30 12/23/23 09:30 / Sodium Chloride CONT INF 10 mcg/min .[id number] EDWARD 18.8 mls/hr Titration Protocol 5 MCG/MIN Dopamine HCl/Dextrose 800 mg in 250 mls @ 4.472 mls/hr 12/21/23 14:45 12/21/23 17:40 CONT INF Not Given .[id number] EDWARD Protocol 5 MCG/KG/MIN Fentanyl 100 mls @ 5 mls/hr 12/21/23 14:55 12/23/23 09:00 CONT INF 100 mcg/hr UD EDWARD 10 mls/hr Titration Protocol 50 MCG/HR Propofol 1,000 mg in 100 mls @ 2.724 mls/hr 12/21/23 15:25 12/23/23 09:00 Diprivan CONT INF 30 mcg/kg/min .Q12H EDWARD 8.2 mls/hr Titration Protocol 10 MCG/KG/MIN Thiamine HCl 100 mg/ Sodium 51 mls @ 200 mls/hr 12/22/23 10:00 12/22/23 12:56 Chloride IV Infused DAILY EDWARD Infusion Folic Acid 1 mg/ Sodium 50.2 mls @ 200 mls/hr 12/22/23 10:00 12/22/23 12:56 Chloride IV Infused DAILY EDWARD Infusion Pantoprazole Sodium 40 mg/ 110 mls @ 330 mls/hr 12/22/23 10:00 12/23/23 08:47 Sodium Chloride IV Infused Q24 EDWARD Infusion Ampicillin Sodium/Sulbactam 112 mls @ 150 mls/hr 12/21/23 18:00 12/23/23 05:52 Sodium 3 gm/ Sodium Chloride IV Infused Q6 EDWARD Infusion Enteral Nutritional Formula 1,000 mls @ 35 mls/hr 12/22/23 10:55 12/23/23 08:46 Vital Af 1.2 Tod Liquid GT 35 mls/hr .[id number] EDWARD Infusion Lorazepam 0.5 mg 12/20/23 18:35 Lorazepam 0.5 Mg Tablet PO Q2H PRN PRN CIWA score >12 Protocol Melatonin 3 mg 12/20/23 18:35 Melatonin 3 Mg Tablet PO QHS PRN PRN INSOMNIA Nicotine 21 mg 12/21/23 10:00 12/23/23 08:58 Nicotine 21 Mg Patch TD 21 mg DAILY EDWARD Administration Ondansetron HCl 4 mg 12/20/23 18:35 12/21/23 13:34 Ondansetron 4 Mg/2 Ml Vial IV 4 mg Q8H PRN PRN Administration NAUSEA/VOMITING Oxycodone HCl 5 mg 12/21/23 08:19 Oxycodone 5 Mg Tablet PO Q6H PRN PRN Pain Score 1-10 Sacubitril/Valsartan 1 each 12/21/23 10:00 12/21/23 10:42 Sacubitril/Valsartan 24/26 Mg Tablet PO 1 each BID EDWARD Administration Senna/Docusate Sodium 2 tablet 12/20/23 18:35 Senna/Docusate Sodium 1 Tablet PO BID PRN PRN Constipation Sodium Chloride 10 - 40 ml 12/20/23 18:37 12/23/23 07:50 0.9% Saline Lock 10 Ml Syringe IV 40 ml UD PRN Administration SALINE FLUSH Spironolactone 25 mg 12/21/23 10:00 12/21/23 09:44 Spironolactone 25 Mg Tablet PO 25 mg DAILY EDWARD Administration Protocol Varenicline 1 mg 12/21/23 10:00 12/21/23 10:42 Varenicline 1 Mg Tablet PO Not Given BID [facility] Medical Records Data Medical Nutrition Assessment Dietitian: Malnutrition Criteria Met Start: 12/21/23 14:40 Freq: Status: Active Protocol: Document 12/21/23 14:40 SB (Rec: 12/21/23 14:40 SB [id number]) Nutrition Malnutrition Evidence of Malnutrition Exists Yes Malnutrition (severe): Chronic Evidenced By Suboptimal Energy Intake ( Severe),Physical Changes ( Severe) Clinical Problem Chronic Disease or Condition Related Malnutrition Etiology chronic severe malnutrition related to inadequate oral intake and increase energy needs d/t COPD Signs/Symptoms as evidenced by estimated PO intake meeting <75% of estimated nutritional needs x 1 year, severe muscle/fat loss in orbital, clavicle, and temporal areas, and BMI 17.0. Status Active Problem Recommendation Dietitian Recommendations/Changes Adjust to regular, no added salt with 1750ml fluid restriction d/t signs and symptoms of malnutrition. Continue 120ml ensure plus high protein 4x daily with medpass. Pt may benefit from supplemental nutrition support . Recommend appetite stimulant to increase oral intake. Will monitor weight, as available. Reviewed and approved by Lynne Hernandez, RN, LD. Lab / Micro Data Attestation: I reviewed the patient's lab results. 12/23/23 05:10 12/23/23 05:10 Labs: Laboratory Results - last 24 hr 12/23/23 05:10: WBC 14.0 H, RBC 3.46 L, Hgb 10.4 L, Hct 33.2 L, MCV 96.0, MCH 30.1, MCHC 31.3 L, RDW Std Deviation 50.7 H, RDW Coeff of Oral 14.6, Plt Count 259, MPV 10.5, Immature Gran % (Auto) 0.400, Neut % (Auto) 84.2 H, Lymph % (Auto) 6.1 L, [place] % (Auto) 8.7, Eos % (Auto) 0.5, Baso % (Auto) 0.1, Absolute Neuts (auto) 11.8 H, Absolute Lymphs (auto) 0.86, Nucleated RBC % 0, Sodium 143, Potassium 3.9, Chloride 112 H, Carbon Dioxide 28.0, Anion Gap 3 L, BUN 16, Creatinine 0.66, Estim Creat Clear Calc 47.72, Est GFR (MDRD) Af Amer 115, Est GFR (MDRD) Non-Af 95, BUN/Creatinine Ratio 24.4 H, Glucose 132 H, Calcium 8.2 L, Magnesium 2.1, Total Bilirubin 0.50, AST 27, ALT 18, Alkaline Phosphatase 46, Total Protein 5.3 L, Albumin 2.4 L, Globulin 2.9, Albumin/Globulin Ratio 0.8 L Micro: Microbiology 12/21/23 17:30 Sputum, Induced/Lukens Gram Stain - Final 12/21/23 17:30 Sputum, Induced/Lukens Respiratory Culture - Final Streptococcus pneumoniae 12/21/23 18:10 Urine Catheter - Catheter Urine Culture - Final Presumptive Lactobacillus sp. ABG Data ABG results: ABG 12/23/23 07:48 Specimen Type MAGI Sample Site Not entered O2 % 30.0 VBG pH 7.34 VBG pO2 34 VBG HCO3 27 H VBG Total CO2 29 VBG O2 Sat (Calc) 60 VBG Base Excess 1 POC Mix VBG pCO2 Pt Tmp 50.6 Respiration Rate 16 O2 Delivery Device Not entered Tidal Volume 400.0 POC PEEP 8 Imaging Radiology Impression Echocardiogram 12/22/23 05:56 Interpretation Summary The estimated ejection fraction is 20-25 %. Severe LV systolic Dysfunction No change from previous Echo Ordering Physician: Sherrie Cui Performed By: Andres Soria RCS Assessment and Plan . Assessment and plan: Assessment and plan: 1. Acute respiratory failure, likely multifactorial but certainly with components of COPD contributing 2. circulatory shock, evidently cardiogenic. No echo evidence for pericardial process 3. lung CA, details remain unclear 4. Hemodynamically more unstable when awaked previously, suggests underlying cardiac dysfunction 5. severe COPD/ emphysematous change by CT imaging- clinical course of this unconfirmed as of yet. Suggest: 1. blood gases reviewed, vent adjusted as needed 2. empiric Abx as ordered 3. await cardiology opinion RE decreased LVEF 4. standard px 5. would proceed with vent weaning- SAT/SBT if hemodynamics do not worsen 6. standard bronchodilators 7. defer management of pressors/ inotropes to on-site staff Care discussed with Dr. Cui and economist research assistant Time: 50 minutes The entirety of this encounter was done via Telemedicine Physical Exam Const General Appearance: patient mechanically ventilated HEENT head/scalp atraumatic Mouth: endotracheal tube in place and OG tube in place Eyes PERRL Resp no use of accessory muscles Auscultation: diminished lung sounds Neuro no focal motor deficits Sensorium / Orientation: sedated on vent Subjective Subjective Smooth interface with vent, lightly sedated at the moment; hemodynamics remains brittle and dobutamine restarted this AM
[2023-12-23 09:51] LABS: Allen Test Positive; Base Excess 1 mmol/L (-2 to +2); Bicarbonate 25.4 mmol/L (22-26); Blood Gas Specimen Type ART; Mode AC; O2 Delivery Device Adult Vent; PEEP 5; PO2 52 mmHG (75-100); RR 16; SITE L Radial; SO2 87 % (95-99); Total Carbon Dioxide 27 mmol/L; pCO2 40.7 mmHg (35-45)
[2023-12-23] MEDS: Folic Acid 1 MG in 0.9% Normal Saline (50mL Bag) 50 ML 200 MG IV (10:06)
[2023-12-23] MEDS: CHLORHEXIDINE GLUC 2% CLOTH 1 EACH TOWELETTE TOPICAL (10:06)
[2023-12-23] MEDS: Chlorhexidine 15 ML PO ×2 (10:06→19:37)
[2023-12-23] MEDS: Thiamine Hydrochloride 100 MG in 0.9% Normal Saline (50mL Bag) 50 ML 200 MG IV (10:08)
[2023-12-23] MEDS: Norepinephrine 8 MG in 0.9% Normal Saline (250mL Bag) 242 ML 18.8 MG CONT INF (12:58)
[2023-12-23] MEDS: Propofol 10MG/Ml 1,000 MG/100 ML Bottle 6.8 MG CONT INF (13:45)
[2023-12-23] MEDS: Vital AF 1.2 Cal Liquid 1,000 ML 35 ML GT (16:09)
--- NOTE | 2023-12-23 16:15 | PN.CARD_ITS ---
Subjective Subjective Patient is still on a ventilator Has been on low-dose inotropic support with Levophed. Objective Data Vital Signs: Vital Signs Temp Pulse Resp BP Pulse Ox O2 Del Method O2 Flow Rate 98.1 F 93 16 107/75 90 Mechanical Ventilator 6 12/23/23 16:00 12/23/23 16:00 12/23/23 16:00 12/23/23 16:00 12/23/23 16:00 12/23/23 16:00 12/21/23 14:00 FiO2 30 12/23/23 16:00 Oxygen Flow Rate (L/min) 6 Oxygen Delivery Method Mechanical Ventilator Weight: 101 lb 13.657 oz Body Mass Index (BMI) 16.3 Intake & Output: Intake and Output for Last 24 Hours 12/21/23 12/22/23 12/23/23 23:59 23:59 23:59 Intake Total 1824.33 / 2004.23 2345.93 / 2576.43 2243.57 / 2243.57 Output Total 250 / 450 1025 / 1375 1500 / 1500 Balance 1574.33 / 1555.23 1320.93 / 1201.43 743.57 / 743.57 Lab / Micro Data 12/23/23 05:10 12/23/23 05:10 Labs: Laboratory Results - last 24 hr 12/23/23 05:10: WBC 14.0 H, RBC 3.46 L, Hgb 10.4 L, Hct 33.2 L, MCV 96.0, MCH 30.1, MCHC 31.3 L, RDW Std Deviation 50.7 H, RDW Coeff of Oral 14.6, Plt Count 259, MPV 10.5, Immature Gran % (Auto) 0.400, Neut % (Auto) 84.2 H, Lymph % (Auto) 6.1 L, Laporte % (Auto) 8.7, Eos % (Auto) 0.5, Baso % (Auto) 0.1, Absolute Neuts (auto) 11.8 H, Absolute Lymphs (auto) 0.86, Nucleated RBC % 0, Sodium 143, Potassium 3.9, Chloride 112 H, Carbon Dioxide 28.0, Anion Gap 3 L, BUN 16, Creatinine 0.66, Estim Creat Clear Calc 47.72, Est GFR (MDRD) Af Amer 115, Est GFR (MDRD) Non-Af 95, BUN/Creatinine Ratio 24.4 H, Glucose 132 H, Calcium 8.2 L, Magnesium 2.1, Total Bilirubin 0.50, AST 27, ALT 18, Alkaline Phosphatase 46, T otal Protein 5.3 L, Albumin 2.4 L, Globulin 2.9, Albumin/Globulin Ratio 0.8 L Micro: Microbiology 12/21/23 17:30 Sputum, Induced/Lukens Gram Stain - Final 12/21/23 17:30 Sputum, Induced/Lukens Respiratory Culture - Final Streptococcus pneumoniae 12/21/23 18:10 Urine Catheter - Catheter Urine Culture - Final Presumptive Lactobacillus sp. ABG Data ABG results: ABG 12/23/23 12/23/23 07:48 09:48 Specimen Type MAGI ART Sample Site Not entered L Radial pH 7.40 Bicarbonate Actual 25.4 Total CO2 27 Base Excess 1 O2 Saturation 87 L O2 % 30.0 30.0 ABG pCO2 40.7 ABG pO2 52 L Ronan Test Positive VBG pH 7.34 VBG pO2 34 VBG HCO3 27 H VBG Total CO2 29 VBG O2 Sat (Calc) 60 VBG Base Excess 1 POC Mix VBG pCO2 Pt Tmp 50.6 Respiration Rate 16 16 O2 Delivery Device Not entered Adult Vent Vent Mode AC Tidal Volume 400.0 400.0 POC PEEP 8 5 Cardiology Labs/Tests 12/23/23 05:10: WBC 14.0 H, RBC 3.46 L, Hgb 10.4 L, Hct 33.2 L, MCV 96.0, MCH 30.1, MCHC 31.3 L, Plt Count 259, MPV 10.5, Immature Gran % (Auto) 0.400, Neut % (Auto) 84.2 H, Lymph % (Auto) 6.1 L, Laporte % (Auto) 8.7, Eos % (Auto) 0.5, Baso % (Auto) 0.1, Absolute Neuts (auto) 11.8 H, Nucleated RBC % 0, Sodium 143, Potassium 3.9, Chloride 112 H, Carbon Dioxide 28.0, Anion Gap 3 L, BUN 16, Creatinine 0.66, Est GFR (MDRD) Af Amer 115, Est GFR (MDRD) Non-Af 95, B UN/Creatinine Ratio 24.4 H, Glucose 132 H, Calcium 8.2 L, Magnesium 2.1, Total Bilirubin 0.50 12/23/23 07:48: VBG pH 7.34, VBG pO2 34, VBG HCO3 27 H, VBG O2 Sat (Calc) 60, VBG Base Excess 1 12/23/23 09:48: pH 7.40, Bicarbonate Actual 25.4, Base Excess 1, O2 Saturation 87 L, ABG pCO2 40.7, ABG pO2 52 L, Ronan Test Positive Rhythm: EKG: ECHO: Stress Test: Cardiac Cath: PCI: CT Surgery: Holter monitor: EPS: PPM: CXR: Chest CT Scan: Physical Exam Cardio Cardio Narrative: Patient intubated on a ventilator Has ET tube and OG in place. Cardiac rhythm is sinus rhythm regular S1-S2 regular No added sounds no heart murmur. No pericardial rub Chest auscultation no rhonchi or wheezes. Assessment & Plan Assessment/Plan (1) Severe malnutrition: (2) Squamous cell carcinoma of lung: (3) Acute on chronic hypoxic respiratory failure: (4) Cardiogenic shock: (5) Congestive heart failure with left ventricular systolic dysfunction: PLAN: Cardiac care plan recommendation; 68-year-old patient, today I discussed the cardiac care plan with the nursing staff Patient with acute systolic heart failure and cardiogenic shock Patient had a history of COPD Protein calorie malnutrition and also UTI currently on antibiotic treatment. Transferred from progressive care unit to ICU Following a rapid response where she was bradycardic and hypotensive With cardiogenic shock Patient intubated and on a ventilator Review of the echocardiogram patient has severe LV dysfunction Ejection fraction 20-25%, mild MR. Also patient has recent diagnosis of squamous cell carcinoma of the lung. Severe malnutrition. From cardiac standpoint currently guideline directed medical therapy has been on hold we will hold the dobutamine and will continue on low-dose Levophed From cardiac standpoint likely the underlying etiology could be a viral myocarditis. Will continue to monitor and follow-up clinically. Once stable plan will be further cardiac workup with possible myocardial perfusion study versus cardiac catheterization.
[2023-12-23] MEDS: 0.9% Normal Saline (250mL Bag) 250 ML 15 ML IV (17:12)
[2023-12-23] MEDS: Senna/Docusate Sodium 1 Tablet 2 TABLET PO (19:37)
[2023-12-23] MEDS: Albuterol 2.5 MG/3 ML VIAL.NEB. INHALATION (22:51)
[2023-12-24] VITALS (45 sets, daily range): BP systolic 78–157; BP diastolic 48–107; PULSE 78–104; RESP 15–40; TEMP 36.6–36.9; O2SAT 90–97; BMI 16.9
[2023-12-24] MEDS: fentaNYL drip 100 ML 10 MCG CONT INF (02:08)
[2023-12-24] MEDS: Propofol 10MG/Ml 1,000 MG/100 ML Bottle 6.8 MG CONT INF (03:14)
[2023-12-24] MEDS: 0.9% Saline Lock 10 ML Syringe IV ×2 (04:00→21:52)
[2023-12-24 04:37] LABS: Hematocrit 30.5 % (37-47); Hemoglobin 9.7 g/dL (12.0-15.0); Mean Corp Hgb Conc 31.8 g/dL (32-36); Mean Corpuscular Hgb 30.6 pg (27.0-32.0); Mean Corpuscular Volume 96.2 fL (81-99); Mean Platelet Vol. 10.8 fl (6.2-12.0); Platelet Count 241 K/mm3 (150-450); RBC Distribution Width CV 14.7 % (11.6-14.6); RBC Distribution Width SD 51.6 fl (35.1-43.9); Red Blood Count 3.17 M/mm3 (4.2-5.4); White Blood Count 10.7 K/mm3 (4.4-11.0)
[2023-12-24 04:54] LABS: Anion Gap 3 (5-15); BUN 18 mg/dL (7-18); BUN/Creat Ratio 30.9 RATIO (10-20); Calcium,Total 8.2 mg/dL (8.5-10.1); Chloride 111 mmol/L (98-107); Creatinine, Serum 0.58 mg/dL (0.55-1.02); EST Glomerular Filtration Rate 109 mL/min (>60); Est Glom Filt Rate - Afr Amer 131 mL/min (>60); Estimated Creatinine Clearance 47.72 ml/min; Glucose 127 mg/dL (74-106); Potassium 3.5 mmol/L (3.5-5.1); Sodium Level 143 mmol/L (136-145)
[2023-12-24] MEDS: Ampicillin/Sulbactam 3 GM in 0.9% Normal Saline (100mL MB+) 100 ML IV ×4 (05:28→21:57)
--- NOTE | 2023-12-24 07:26 | PN.HOSP_ITS ---
Reason for Visit Reason for Visit: Diagnoses Malignant neoplasm of unspecified part of unspecified bronchus or lung (12/20/23) Unspecified severe protein-calorie malnutrition (12/20/23) Hypokalemia (12/20/23) Cardiomyopathy, unspecified (12/20/23) Unspecified systolic (congestive) heart failure (12/20/23) Heart failure, unspecified (12/20/23) Acute and chronic respiratory failure with hypoxia (12/20/23) Bradycardia, unspecified (12/20/23) Cardiogenic shock (12/20/23) Objective Data Objective Data Vital Signs: Vital Signs Temp Pulse Resp BP Pulse Ox O2 Del Method O2 Flow Rate 98.1 F 100 16 111/51 L 91 Mechanical Ventilator 6 12/24/23 04:00 12/24/23 07:00 12/24/23 07:00 12/24/23 07:00 12/24/23 07:00 12/24/23 07:00 12/21/23 14:00 FiO2 40 12/24/23 07:00 Oxygen Flow Rate (L/min) 6 Oxygen Delivery Method Mechanical Ventilator Weight: 105 lb 6.095 oz Body Mass Index (BMI) 16.9 Intake & Output: Intake and Output for Last 24 Hours 12/22/23 12/23/23 12/24/23 23:59 23:59 23:59 Intake Total 2345.93 / 2576.43 2668.73 / 2758.63 931.40 / 931.40 Output Total 1025 / 1375 1760 / 1760 300 / 300 Balance 1320.93 / 1201.43 908.73 / 998.63 631.40 / 631.40 Medical Nutrition Assessment Dietitian: Malnutrition Criteria Met Start: 12/21/23 14:40 Freq: Status: Active Protocol: Document 12/21/23 14:40 SB (Rec: 12/21/23 14:40 SB [id number]) Nutrition Malnutrition Evidence of Malnutrition Exists Yes Malnutrition (severe): Chronic Evidenced By Suboptimal Energy Intake ( Severe),Physical Changes ( Severe) Clinical Problem Chronic Disease or Condition Related Malnutrition Etiology chronic severe malnutrition related to inadequate oral intake and increase energy needs d/t COPD Signs/Symptoms as evidenced by estimated PO intake meeting <75% of estimated nutritional needs x 1 year, severe muscle/fat loss in orbital, clavicle, and temporal areas, and BMI 17.0. Status Active Problem Recommendation Dietitian Recommendations/Changes Adjust to regular, no added salt with 1750ml fluid restriction d/t signs and symptoms of malnutrition. Continue 120ml ensure plus high protein 4x daily with medpass. Pt may benefit from supplemental nutrition support . Recommend appetite stimulant to increase oral intake. Will monitor weight, as available. Reviewed and approved by Lynne Hernandez RN, LD. Lab / Micro Data 12/24/23 04:00 12/24/23 04:00 Labs: Laboratory Results - last 24 hr 12/24/23 04:00: WBC 10.7, RBC 3.17 L, Hgb 9.7 L, Hct 30.5 L, MCV 96.2, MCH 30.6, MCHC 31.8 L, RDW Std Deviation 51.6 H, RDW Coeff of Oral 14.7 H, Plt Count 241, MPV 10.8, Sodium 143, Potassium 3.5, Chloride 111 H, Carbon Dioxide 29.0, Anion Gap 3 L, BUN 18, Creatinine 0.58, Estim Creat Clear Calc 47.72, Est GFR (MDRD) Af Amer 131, Est GFR (MDRD) Non-Af 109, BUN/Creatinine Ratio 30.9 H, Glucose 127 H, Calcium 8.2 L Micro: Microbiology 12/21/23 17:30 Sputum, Induced/Lukens Gram Stain - Final 12/21/23 17:30 Sputum, Induced/Lukens Respiratory Culture - Final Streptococcus pneumoniae 12/21/23 18:10 Urine Catheter - Catheter Urine Culture - Final Presumptive Lactobacillus sp. ABG Data ABG results: ABG 12/23/23 12/23/23 07:48 09:48 Specimen Type MAGI ART Sample Site Not entered L Radial pH 7.40 Bicarbonate Actual 25.4 Total CO2 27 Base Excess 1 O2 Saturation 87 L O2 % 30.0 30.0 ABG pCO2 40.7 ABG pO2 52 L Ronan Test Positive VBG pH 7.34 VBG pO2 34 VBG HCO3 27 H VBG Total CO2 29 VBG O2 Sat (Calc) 60 VBG Base Excess 1 POC Mix VBG pCO2 Pt Tmp 50.6 Respiration Rate 16 16 O2 Delivery Device Not entered Adult Vent Vent Mode AC Tidal Volume 400.0 400.0 POC PEEP 8 5 Assessment & Plan Assessment/Plan (1) Cardiogenic shock: (2) Acute on chronic hypoxic respiratory failure: (3) Hypokalemia: (4) Squamous cell carcinoma of lung: (5) Bradycardia: (6) Severe malnutrition: PLAN: Plan Cardiogenic shock -Patient acutely decompensated on PCU on 12/21/2023 -Etiology is unclear but doubt ischemic -This is a rapidly declining EF as she had a normal echocardiogram on 11/30/2023 and her EF is now 25% in the outpatient setting she was 45% just a few days ago -Repeat echo was read at 20 to 25% -Will need to hold goal-directed therapy due to decompensation -Continue Levophed -Dobutamine was stopped due to titration orders but mixed venous O2 sat of the distal port of her triple-lumen catheter in the IVC shows a sat of 60% indicating that she still is having poor extraction so we will restart dobutamine at 5 mcg--> I do expect that her Levophed requirements may go up a bit -Repeat VBG off distal port of the triple-lumen catheter again tomorrow to reassess -Will try Lasix 20 mg IV push x 1 again today to see if we can get her back on Starling curve and start weaning dobutamine -Cardiology is following -CCM is following Acute on chronic hypoxic respiratory failure -Her baseline oxygen at home is 2 L with rest and 4 L with exertion however patient has had to increase her oxygen with at home to 4 to 6 L over the past several days -FiO2 has been weaned to 30% with PEEP of 8 with stable status -Information stable. Try to wean PEEP to 5 slowly and then work towards extubation if medically ready -Sedation vacations and weaning trials per protocol -Wean O2 as able -ABG seems to be consistent with chronic hypercapnia as well -Continue nebulizers -Continue budesonide -Will utilize propofol and fentanyl for now but may need to transition sedation due to hypotension -Tube feeds started yesterday and patient is tolerating -Consult critical care/pulmonary medicine-appreciate input Alpha hemolytic strep pneumonia -Sensitivities are pending -Continue Unasyn day 3 of 7 Bradycardia -Patient had 1 episode of symptomatic bradycardia with heart rates in the upper 30s to 40s on 12/21/2023 -Patient has had no further episodes -Responded well to atropine -Continue to monitor on telemetry -If any recurrent bradycardia may need to utilize dopamine instead of Levophed Hypokalemia -Resolved but still less than 4 so we will give another 40 mEq via OG -Mag remains greater than 2 Abnormal UA -Culture was unremarkable Leukocytosis -Remains up but stable -Procalcitonin was within normal limits -Blood cultures pending -Sputum culture with alpha hemolytic strep -On Unasyn and will continue -Urine culture was unremarkable despite UA suggestive of infection Acute anemia -Mild but trends down -No signs of bleeding -If further trends down tomorrow may need to workup further -Only anticoagulation patient is on his DVT prophylaxis Small cell carcinoma of the lung -PET scan was negative for any metastasis -Oncology is staging mediastinum for mets -May be a candidate for curative resection -Follows with F for pulmonary and oncology -Discussed with Dr. Zheng Severe malnutrition -Continue thiamine -Continue folate -Continue multivitamin -Tube feeds are running and at goal -Dietitian is following GERD -Continue IV PPI 40 mg daily -Patient is on oral PPI at baseline Depression -Home Cymbalta is on hold Ongoing nicotine abuse -Advised cessation Essential hypertension/hyperlipidemia -Hold home losartan -Hold home atorvastatin Chronic pain -Hold home gabapentin -Hold home opiates COPD -See above -Hold home inhalers -Follows with Dr. Alma Bentley at [facility] DVT prophylaxis -Subcu Lovenox but may need to hold depending on hemoglobin tomorrow CODE STATUS -Full code as discussed with patient at admission and prior to acute decompensation requiring intubation with granddaughter at the bedside
--- NOTE | 2023-12-24 07:26 | PCM.PN.HOSP ---
Reason for Visit Reason for Visit: Diagnoses Malignant neoplasm of unspecified part of unspecified bronchus or lung (12/20/23) Unspecified severe protein-calorie malnutrition (12/20/23) Hypokalemia (12/20/23) Cardiomyopathy, unspecified (12/20/23) Unspecified systolic (congestive) heart failure (12/20/23) Heart failure, unspecified (12/20/23) Acute and chronic respiratory failure with hypoxia (12/20/23) Bradycardia, unspecified (12/20/23) Cardiogenic shock (12/20/23) Objective Data Objective Data Vital Signs: Vital Signs Temp Pulse Resp BP Pulse Ox O2 Del Method O2 Flow Rate 98.1 F 100 16 111/51 L 91 Mechanical Ventilator 6 12/24/23 04:00 12/24/23 07:00 12/24/23 07:00 12/24/23 07:00 12/24/23 07:00 12/24/23 07:00 12/21/23 14:00 FiO2 40 12/24/23 07:00 Oxygen Flow Rate (L/min) 6 Oxygen Delivery Method Mechanical Ventilator Weight: 105 lb 6.095 oz Body Mass Index (BMI) 16.9 Intake & Output: Intake and Output for Last 24 Hours 12/22/23 12/23/23 12/24/23 23:59 23:59 23:59 Intake Total 2345.93 / 2576.43 2668.73 / 2758.63 931.40 / 931.40 Output Total 1025 / 1375 1760 / 1760 300 / 300 Balance 1320.93 / 1201.43 908.73 / 998.63 631.40 / 631.40 Medical Nutrition Assessment Dietitian: Malnutrition Criteria Met Start: 12/21/23 14:40 Freq: Status: Active Protocol: Document 12/21/23 14:40 SB (Rec: 12/21/23 14:40 SB [id number]) Nutrition Malnutrition Evidence of Malnutrition Exists Yes Malnutrition (severe): Chronic Evidenced By Suboptimal Energy Intake ( Severe),Physical Changes ( Severe) Clinical Problem Chronic Disease or Condition Related Malnutrition Etiology chronic severe malnutrition related to inadequate oral intake and increase energy needs d/t COPD Signs/Symptoms as evidenced by estimated PO intake meeting <75% of estimated nutritional needs x 1 year, severe muscle/fat loss in orbital, clavicle, and temporal areas, and BMI 17.0. Status Active Problem Recommendation Dietitian Recommendations/Changes Adjust to regular, no added salt with 1750ml fluid restriction d/t signs and symptoms of malnutrition. Continue 120ml ensure plus high protein 4x daily with medpass. Pt may benefit from supplemental nutrition support . Recommend appetite stimulant to increase oral intake. Will monitor weight, as available. Reviewed and approved by Lynne Hernandez RN, LD. Lab / Micro Data 12/24/23 04:00 12/24/23 04:00 Labs: Laboratory Results - last 24 hr 12/24/23 04:00: WBC 10.7, RBC 3.17 L, Hgb 9.7 L, Hct 30.5 L, MCV 96.2, MCH 30.6, MCHC 31.8 L, RDW Std Deviation 51.6 H, RDW Coeff of Oral 14.7 H, Plt Count 241, MPV 10.8, Sodium 143, Potassium 3.5, Chloride 111 H, Carbon Dioxide 29.0, Anion Gap 3 L, BUN 18, Creatinine 0.58, Estim Creat Clear Calc 47.72, Est GFR (MDRD) Af Amer 131, Est GFR (MDRD) Non-Af 109, BUN/Creatinine Ratio 30.9 H, Glucose 127 H, Calcium 8.2 L Micro: Microbiology 12/21/23 17:30 Sputum, Induced/Lukens Gram Stain - Final 12/21/23 17:30 Sputum, Induced/Lukens Respiratory Culture - Final Streptococcus pneumoniae 12/21/23 18:10 Urine Catheter - Catheter Urine Culture - Final Presumptive Lactobacillus sp. ABG Data ABG results: ABG 12/23/23 12/23/23 07:48 09:48 Specimen Type MAGI ART Sample Site Not entered L Radial pH 7.40 Bicarbonate Actual 25.4 Total CO2 27 Base Excess 1 O2 Saturation 87 L O2 % 30.0 30.0 ABG pCO2 40.7 ABG pO2 52 L Ronan Test Positive VBG pH 7.34 VBG pO2 34 VBG HCO3 27 H VBG Total CO2 29 VBG O2 Sat (Calc) 60 VBG Base Excess 1 POC Mix VBG pCO2 Pt Tmp 50.6 Respiration Rate 16 16 O2 Delivery Device Not entered Adult Vent Vent Mode AC Tidal Volume 400.0 400.0 POC PEEP 8 5 Physical Exam Narrative Patient is still intubated, on ventilator. 40% FiO2 PEEP 5. Patient is off norepinephrine and dobutamine. On Precedex drip. Physical exam General: drowsy and lethargic but wakes up. On light sedation HEENT: Atraumatic, Normocephalic Oral: ET and OG tube Neck: Supple, No JVD, Negative Carotid Bruits Chest wall/Lungs: On ventilator. Air entry diminished in bilateral lung bases. No crepitation/rhonchi Cardiovascular: Sinus rhythm with bigeminy. Normal S1, Normal S2, No M/G/R Abdomen: Bowel Sounds Present, Soft, Non Tender, Non-Distended : Hare catheter. Clear urine No renal angle tenderness. No suprapubic tenderness. Extremities: No edema, Capillary Refill Less than 3 Seconds Skin: No rashes, No breakdown Musculoskeletal: No Tenderness to Palpation of Joints or Extremities Neurological: Cranial nerves II-XII grossly intact, DTR 2+/4. No acute focal neurological deficit. Psych/Mental Status: On light sedation Assessment & Plan Assessment/Plan (1) Cardiogenic shock: (2) Acute on chronic hypoxic respiratory failure: (3) Hypokalemia: (4) Squamous cell carcinoma of lung: (5) Bradycardia: (6) Severe malnutrition: PLAN: Plan 1. Cardiogenic shock -Patient acutely decompensated on PCU on 12/21/2023 -Etiology is unclear but doubt ischemic -This is a rapidly declining EF as she had a normal echocardiogram on 11/30/2023 and her EF is now 25% in the outpatient setting she was 45% just a few days ago -Repeat echo was read at 20 to 25% -Discussed with air brakes inspector, continue goal-directed therapy due to decompensation Patient is off Levophed. Dobutamine was discontinued earlier. Patient was having mild arrhythmia 2. Acute on chronic hypoxic respiratory failure: On vent support. ABG is consistent with chronic hypercapnia. Mid Level Net Developer managing. Currently only on fentanyl drip and Precedex drip. Propofol is tapered off 3. Alpha hemolytic strep pneumonia: Chest x-ray initially reviewed. Shows left basilar atelectasis/infiltrate. No consolidation or edema effusion. Sputum culture shows 2+ strep pneumoniae -Sensitivities are pending -Continue Unasyn day 3 of 7 4. Arrhythmia: Patient had bradycardia, also has bigeminy: Had 1 episode symptomatic bradycardia with heart rate in upper 30s to 40s on 12/20: Responded well to atropine. No dobutamine and no Levophed has been discontinued. Astronomy Teacher is following. Monitor Hypokalemia -Resolved but still less than 4 so we will give another 40 mEq via OG -Mag remains greater than 2 Mild acute normocytic normochromic anemia. Probably from multiple acute events including infection, cardiogenic shock. Small cell carcinoma of the lung -PET scan was negative for any metastasis -Oncology is staging mediastinum for mets -May be a candidate for curative resection -Follows with F for pulmonary and oncology -Discussed with Dr. Zheng Severe malnutrition -Continue thiamine -Continue folate -Continue multivitamin -Tube feeds are running and at goal -Dietitian is following GERD -Continue IV PPI 40 mg daily -Patient is on oral PPI at baseline Depression -Home Cymbalta is on hold Ongoing nicotine abuse -Advised cessation Essential hypertension/hyperlipidemia -Hold home losartan -Hold home atorvastatin Chronic pain -Hold home gabapentin -Hold home opiates COPD -See above -Hold home inhalers -Follows with Dr. Alma Bentley at [facility] DVT prophylaxis -Subcu Lovenox but may need to hold depending on hemoglobin tomorrow CODE STATUS -Full code as discussed with patient at admission and prior to acute decompensation requiring intubation with granddaughter at the bedside Clinical Impression(s) from Imaging Studies Chest X-Ray 12/20/23 15:35 IMPRESSION: Stable chest with no active or acute cardiopulmonary disease. Electronically Signed: Jai Madera MD at 15:48 EDT , Echocardiogram 12/20/23 15:46 Interpretation Summary The left ventricular ejection fraction is 25 %. Moderately dilated left ventricle. There is severe global hypokinesis of the left ventricle. Mild-Moderate (1-2+) mitral valve insufficiency. Contrast injection was performed. Compared to previous study, the left ventricular systolic function has worsened.. Ordering Physician: Brenden Davis Referring Physician: May Garcia M.D. Performed By: Kitty Voss RDCS Chest X-Ray 12/21/23 16:20 IMPRESSION: Left basilar atelectasis. Electronically Signed: Edwardo Leonard DO at 17:24 EDT Reading Location ID and State: [facility] / [place] Tel [phone], Service support , Echocardiogram 12/22/23 05:56 Interpretation Summary The estimated ejection fraction is 20-25 %. Severe LV systolic Dysfunction No change from previous Echo Ordering Physician: Sherrie Cui Performed By: Andres Soria RCS Charges/Coding Visit Charges Inpatient E&M: 72811 Subs Hosp L3
[2023-12-24] MEDS: Pantoprazole Sodium 40 MG in 0.9% Normal Saline (100mL MB+) 100 ML 330 MG IV (08:06)
[2023-12-24] MEDS: Chlorhexidine 15 ML PO ×2 (08:09→19:55)
[2023-12-24] MEDS: Thiamine Hydrochloride 100 MG in 0.9% Normal Saline (50mL Bag) 50 ML 200 MG IV (08:56)
[2023-12-24] MEDS: Ipratropium/Albuterol Sulfate 3 ML AMPUL.NEB INHALATION ×3 (09:00→19:11)
[2023-12-24] MEDS: Budesonide Respules 0.5 MG/2 ML AMPUL.NEB. INHALATION ×2 (09:00→19:12)
--- NOTE | 2023-12-24 09:06 | PCM.PN.INT ---
Assessment & Plan Assessment/Plan (1) Congestive heart failure with left ventricular systolic dysfunction: (2) Squamous cell carcinoma of lung: (3) Acute on chronic hypoxic respiratory failure: PLAN: Plan RECOMMENDATIONS: 1. Continue antimicrobials to complete 7 days of therapy. 2. Continue assist-control mode of mechanical ventilation. Wean FiO2 and PEEP as tolerated. 3. Transition from propofol to Precedex to aid in weaning from mechanical ventilation. 4. Continue tube feeding as tolerated. 5. Continue scheduled bronchodilators. 6. Continue nicotine replacement therapy. 7. Continue appropriate ICU prophylaxis. IMPRESSIONS: 1. Acute on chronic hypoxemic respiratory failure Likely multifactorial in etiology with underlying decompensated heart failure and COPD in a state of exacerbation due to pneumococcal pneumonia, contributing. The patient will be continued on scheduled bronchodilators and appropriate antimicrobials as indicated. Plan to continue tube feeding as tolerated. The patient will be transition from propofol to Precedex this morning in hopes that this will electricians top helper in her liberation from mechanical ventilation. Plan for repeat spontaneous breathing trial tomorrow morning. 2. Cardiogenic shock Per cardiology, clinical concern for viral myocarditis. They are recommending further cardiac workup once the patient is medically stabilized. The patient has been weaned from vasopressor support at the present time and remains hemodynamically stable. Continue supportive measures as noted above. 3. History of chronic tobacco dependency/recent diagnosis of squamous cell carcinoma/pulmonary cachexia/hypertension Complicates care, management, recovery and prognosis. Continue nutritional support via tube feeding as tolerated. Continue nicotine replacement therapy. Recommend outpatient follow-up with oncology after discharge. TIME: 34 minutes of critical care time, independent of procedures, was spent addressing the patient's acute on chronic hypoxemic respiratory failure, cardiogenic shock, review of all data and collaboration with the care team. Subjective Subjective The patient was seen and examined at the bedside this morning. Events from the last 24 hours have been reviewed. The patient is currently afebrile, hemodynamically stable and maintaining appropriate oxygen saturations on assist-control mode mechanical ventilation with an FiO2 requirement of 40% and PEEP of 5. The patient has been successfully weaned off of Levophed. White count is normal this morning. Hemoglobin is stable at 9.7 g/dL. The patient has been tolerant of tube feeding. Objective Data Objective Data The patient's most recent lab work, culture data and imaging studies have all been personally reviewed. Surface echocardiogram demonstrated a severely dilated LV with an ejection fraction of 20 to 25%. Sputum culture was positive for 2+ Streptococcus pneumonia. Vital Signs: Vital Signs Temp Pulse Resp BP Pulse Ox O2 Del Method O2 Flow Rate 98 F 98 24 H 101/53 L 94 Mechanical Ventilator 6 12/24/23 08:00 12/24/23 09:00 12/24/23 09:00 12/24/23 09:00 12/24/23 09:00 12/24/23 09:00 12/21/23 14:00 FiO2 40 12/24/23 09:00 Oxygen Flow Rate (L/min) 6 Oxygen Delivery Method Mechanical Ventilator Weight: 105 lb 6.095 oz Body Mass Index (BMI) 16.9 Intake & Output: Intake and Output for Last 24 Hours 12/22/23 12/23/23 12/24/23 23:59 23:59 23:59 Intake Total 2345.93 / 2576.43 2668.73 / 2758.63 1125.20 / 1125.20 Output Total 1025 / 1375 1760 / 1760 300 / 300 Balance 1320.93 / 1201.43 908.73 / 998.63 825.20 / 825.20 Medical Nutrition Assessment Dietitian: Malnutrition Criteria Met Start: 12/21/23 14:40 Freq: Status: Active Protocol: Document 12/21/23 14:40 SB (Rec: 12/21/23 14:40 SB [id number]) Nutrition Malnutrition Evidence of Malnutrition Exists Yes Malnutrition (severe): Chronic Evidenced By Suboptimal Energy Intake ( Severe),Physical Changes ( Severe) Clinical Problem Chronic Disease or Condition Related Malnutrition Etiology chronic severe malnutrition related to inadequate oral intake and increase energy needs d/t COPD Signs/Symptoms as evidenced by estimated PO intake meeting <75% of estimated nutritional needs x 1 year, severe muscle/fat loss in orbital, clavicle, and temporal areas, and BMI 17.0. Status Active Problem Recommendation Dietitian Recommendations/Changes Adjust to regular, no added salt with 1750ml fluid restriction d/t signs and symptoms of malnutrition. Continue 120ml ensure plus high protein 4x daily with medpass. Pt may benefit from supplemental nutrition support . Recommend appetite stimulant to increase oral intake. Will monitor weight, as available. Reviewed and approved by Lynne Hernandez RN, LD. Lab / Micro Data Attestation: I reviewed the patient's lab results. 12/24/23 04:00 12/24/23 04:00 Labs: Laboratory Results - last 24 hr 12/24/23 04:00: WBC 10.7, RBC 3.17 L, Hgb 9.7 L, Hct 30.5 L, MCV 96.2, MCH 30.6, MCHC 31.8 L, RDW Std Deviation 51.6 H, RDW Coeff of Oral 14.7 H, Plt Count 241, MPV 10.8, Sodium 143, Potassium 3.5, Chloride 111 H, Carbon Dioxide 29.0, Anion Gap 3 L, BUN 18, Creatinine 0.58, Estim Creat Clear Calc 47.72, Est GFR (MDRD) Af Amer 131, Est GFR (MDRD) Non-Af 109, BUN/Creatinine Ratio 30.9 H, Glucose 127 H, Calcium 8.2 L Micro: Microbiology 12/21/23 17:30 Sputum, Induced/Lukens Gram Stain - Final 12/21/23 17:30 Sputum, Induced/Lukens Respiratory Culture - Final Streptococcus pneumoniae 12/21/23 18:10 Urine Catheter - Catheter Urine Culture - Final Presumptive Lactobacillus sp. ABG Data ABG results: ABG 12/23/23 09:48 Specimen Type ART Sample Site L Radial pH 7.40 Bicarbonate Actual 25.4 Total CO2 27 Base Excess 1 O2 Saturation 87 L O2 % 30.0 ABG pCO2 40.7 ABG pO2 52 L Ronan Test Positive Respiration Rate 16 O2 Delivery Device Adult Vent Vent Mode AC Tidal Volume 400.0 POC PEEP 5 Physical Exam Const Constitutional Narrative: Intubated, sedated and mechanically ventilated. No ventilator dyssynchrony noted. HEENT normocephalic and head/scalp atraumatic Mouth: endotracheal tube in place and OG tube in place Eyes PERRL and EOMs intact bilaterally Neck supple General: trachea midline Chest Chest Narrative: Increased AP diameter. Resp Resp Narrative: Globally diminished air movement throughout all lung cantor. Cardio regular rate and regular rhythm GI normal to inspection, nondistended, normoactive bowel sounds Extremity no clubbing, cyanosis or edema Skin no rashes or lesions noted Neuro Sensorium / Orientation: sedated on vent Charges/Coding Procedures Hospitalists Procedures: 30834 Critical Care 1st Hr
[2023-12-24] MEDS: Folic Acid 1 MG in 0.9% Normal Saline (50mL Bag) 50 ML 200 MG IV (09:17)
--- NOTE | 2023-12-24 10:10 | PN.CARD_ITS ---
Subjective Subjective Patient seen and evaluated today at bedside in ICU Along with the nursing staff Intubated on the ventilator Alert and responsive Objective Data Vital Signs: Vital Signs Temp Pulse Resp BP Pulse Ox O2 Del Method O2 Flow Rate 98 F 99 17 94/75 92 Mechanical Ventilator 6 12/24/23 08:00 12/24/23 10:00 12/24/23 10:00 12/24/23 10:00 12/24/23 10:00 12/24/23 10:00 12/21/23 14:00 FiO2 40 12/24/23 10:00 Oxygen Flow Rate (L/min) 6 Oxygen Delivery Method Mechanical Ventilator Weight: 105 lb 6.095 oz Body Mass Index (BMI) 16.9 Intake & Output: Intake and Output for Last 24 Hours 12/22/23 12/23/23 12/24/23 23:59 23:59 23:59 Intake Total 2345.93 / 2576.43 2668.73 / 2758.63 1137.10 / 1137.10 Output Total 1025 / 1375 1760 / 1760 300 / 300 Balance 1320.93 / 1201.43 908.73 / 998.63 837.10 / 837.10 Lab / Micro Data 12/24/23 04:00 12/24/23 04:00 Labs: Laboratory Results - last 24 hr 12/24/23 04:00: WBC 10.7, RBC 3.17 L, Hgb 9.7 L, Hct 30.5 L, MCV 96.2, MCH 30.6, MCHC 31.8 L, RDW Std Deviation 51.6 H, RDW Coeff of Oral 14.7 H, Plt Count 241, MPV 10.8, Sodium 143, Potassium 3.5, Chloride 111 H, Carbon Dioxide 29.0, Anion Gap 3 L, BUN 18, Creatinine 0.58, Estim Creat Clear Calc 47.72, Est GFR (MDRD) Af Amer 131, Est GFR (MDRD) Non-Af 109, BUN/Creatinine Ratio 30.9 H, Glucose 127 H, Calcium 8.2 L Micro: Microbiology 12/21/23 17:30 Sputum, Induced/Lukens Gram Stain - Final 12/21/23 17:30 Sputum, Induced/Lukens Respiratory Culture - Final Streptococcus pneumoniae 12/21/23 18:10 Urine Catheter - Catheter Urine Culture - Final Presumptive Lactobacillus sp. Cardiology Labs/Tests 12/24/23 04:00: WBC 10.7, RBC 3.17 L, Hgb 9.7 L, Hct 30.5 L, MCV 96.2, MCH 30.6, MCHC 31.8 L, Plt Count 241, MPV 10.8, Sodium 143, Potassium 3.5, Chloride 111 H, Carbon Dioxide 29.0, Anion Gap 3 L, BUN 18, Creatinine 0.58, Est GFR (MDRD) Af Amer 131, Est GFR (MDRD) Non-Af 109, BUN/Creatinine Ratio 30.9 H, Glucose 127 H, Calcium 8.2 L Rhythm: EKG: ECHO: Stress Test: Cardiac Cath: PCI: CT Surgery: Holter monitor: EPS: PPM: CXR: Chest CT Scan: Physical Exam Cardio Cardio Narrative: inventory checker showed normal sinus with frequent PVCs and ventricular bigeminy Stable hemodynamically Off inotropic support Card exam S1-S2 is irregular Chest exam, diminished air entry bilateral Examination lower extremity no clubbing no cyanosis Pedal pulses palpable Assessment & Plan Assessment/Plan (1) Severe malnutrition: (2) Squamous cell carcinoma of lung: (3) UTI (urinary tract infection): (4) Congestive heart failure with left ventricular systolic dysfunction: PLAN: Cardiac care plan recommendations; 68-year-old patient, seen and evaluated in ICU along with the nursing staff Recent diagnosis of squamous cell carcinoma Acute on chronic hypoxic respiratory failure Congestive heart failure with LV systolic dysfunction/ejection fraction the range of 20-25%. Patient on assist-control mode of mechanical ventilator Stable hemodynamically with the licensed esthetician showed underlying sinus with PVCs/ventricular bigeminy Off inotropic support Underlying etiology of the severe LV dysfunction possible cardiomyopathy secondary to viral myocarditis also patient had history of alcohol abuse would require further workup once stable clinically. To hold on the guideline directed therapy as patient has hypertension with bradycardia with the urgent transfer to ICU intubated Therefore we will hold on cardiac medication and re-evaluate once stable clinically. With possible evaluation with myocardial, perfusion study which can be set up as an outpatient versus cardiac catheterization. I discussed the cardiac care plan with the medical team and nursing staff also I discussed with the family at time of presentation. From cardiac standpoint we will continue to monitor and follow-up with [facility] cardiac team.
[2023-12-24] MEDS: dexMEDEtomidine 400 MCG in 0.9% Normal Saline (100mL Bag) 96 ML 6 MCG CONT INF (10:14)
[2023-12-24] MEDS: 0.9% Normal Saline (250mL Bag) 250 ML 15 ML IV (10:14)
[2023-12-24] MEDS: Enoxaparin 40 MG/0.4 ML Syringe SC (10:14)
[2023-12-24] MEDS: CHLORHEXIDINE GLUC 2% CLOTH 1 EACH TOWELETTE TOPICAL (10:53)
--- NOTE | 2023-12-24 15:43 | CASEMGMT ---
Social Work- SW received a message that pt family is requesting a SNF at d/c. SW will remain available for follow up as pt condition improves. SABRINA Ly
[2023-12-24] MEDS: dexMEDEtomidine 400 MCG in 0.9% Normal Saline (100mL Bag) 96 ML 17.9 MCG CONT INF ×2 (16:26→21:53)
[2023-12-24] MEDS: fentaNYL drip 100 ML 5 MCG CONT INF (16:26)
[2023-12-24] MEDS: Vital AF 1.2 Cal Liquid 1,000 ML 40 ML GT (16:28)
[2023-12-25] VITALS (36 sets, daily range): BP systolic 92–144; BP diastolic 44–95; PULSE 64–90; RESP 16–30; TEMP 36.2–36.8; O2SAT 92–97; BMI 17.4
[2023-12-25] MEDS: fentaNYL drip 100 ML 10 MCG CONT INF ×3 (02:36→23:55)
[2023-12-25] MEDS: dexMEDEtomidine 400 MCG in 0.9% Normal Saline (100mL Bag) 96 ML 16.7 MCG CONT INF ×2 (02:39→07:47)
[2023-12-25] MEDS: Ampicillin/Sulbactam 3 GM in 0.9% Normal Saline (100mL MB+) 100 ML IV ×4 (04:36→23:55)
[2023-12-25 07:02] LABS: Absolute Lymphocyte Count 0.68 X10^3/uL (0.83-4.51); Absolute Neutrophil Count 6.7 X10^3/uL (2.0-7.7); Basophil# 0.01 X10^3/uL; Basophil% 0.1 % (0-1); Eosinophil# 0.06 X10^3/uL; Eosinophils% 0.7 % (0-5); Hematocrit 30.2 % (37-47); Hemoglobin 9.4 g/dL (12.0-15.0); Lymphocyte # 0.68 X10^3/ul (0.83-4.51); Lymphocyte % 8.3 % (19-41); Mean Corp Hgb Conc 31.1 g/dL (32-36); Mean Corpuscular Hgb 29.8 pg (27.0-32.0); Mean Corpuscular Volume 95.9 fL (81-99); Mean Platelet Vol. 11.3 fl (6.2-12.0); Monocyte# 0.72 X10^3/uL; Monocyte% 8.8 % (0-10); NRBC Flagged by Analyzer 0 % (0-5); Neutrophil # 6.72 X10^3/uL (2.7-7.7); Neutrophil % 81.9 % (47-70); Platelet Count 230 K/mm3 (150-450); RBC Distribution Width CV 14.8 % (11.6-14.6); RBC Distribution Width SD 52.2 fl (35.1-43.9); Red Blood Count 3.15 M/mm3 (4.2-5.4); White Blood Count 8.2 K/mm3 (4.4-11.0)
[2023-12-25 07:06] LABS: Anion Gap 4 (5-15); BUN 26 mg/dL (7-18); BUN/Creat Ratio 55.1 RATIO (10-20); Calcium,Total 8.5 mg/dL (8.5-10.1); Chloride 113 mmol/L (98-107); Creatinine, Serum 0.47 mg/dL (0.55-1.02); EST Glomerular Filtration Rate 138 mL/min (>60); Est Glom Filt Rate - Afr Amer 168 mL/min (>60); Estimated Creatinine Clearance 50.72 ml/min; Glucose 171 mg/dL (74-106); Potassium 3.6 mmol/L (3.5-5.1); Sodium Level 145 mmol/L (136-145)
[2023-12-25] MEDS: Ipratropium/Albuterol Sulfate 3 ML AMPUL.NEB INHALATION ×4 (07:11→19:16)
[2023-12-25] MEDS: Budesonide Respules 0.5 MG/2 ML AMPUL.NEB. INHALATION (07:11)
--- NOTE | 2023-12-25 07:21 | PCM.PN.INT ---
Assessment & Plan Assessment/Plan (1) Congestive heart failure with left ventricular systolic dysfunction: (2) Squamous cell carcinoma of lung: (3) Acute on chronic hypoxic respiratory failure: PLAN: Plan RECOMMENDATIONS: 1. Continue antimicrobials to complete 7 days of therapy. 2. Resume assist-control mode of mechanical ventilation. 3. Holding on extubation until sputum production improves. 4. Continue Precedex and fentanyl for sedation. 5. Continue tube feeding as tolerated. 6. Continue scheduled bronchodilators. 7. Continue nicotine replacement therapy. 8. Continue appropriate ICU prophylaxis. IMPRESSIONS: 1. Acute on chronic hypoxemic respiratory failure Likely multifactorial in etiology with underlying decompensated heart failure and COPD in a state of exacerbation due to pneumococcal pneumonia, contributing. The patient will be continued on scheduled bronchodilators and appropriate antimicrobials as indicated. Plan to continue tube feeding as tolerated. The patient will be continued on Precedex and fentanyl for sedation. Plan to continue attempts at breathing trials daily, with plans to extubate once the patient's sputum output improves. 2. Cardiogenic shock Per cardiology, clinical concern for viral myocarditis. They are recommending further cardiac workup once the patient is medically stabilized. The patient has been weaned from vasopressor support at the present time and remains hemodynamically stable. Continue supportive measures as noted above. 3. History of chronic tobacco dependency/recent diagnosis of squamous cell carcinoma/pulmonary cachexia/hypertension Complicates care, management, recovery and prognosis. Continue nutritional support via tube feeding as tolerated. Continue nicotine replacement therapy. Recommend outpatient follow-up with oncology after discharge. TIME: 32 minutes of critical care time, independent of procedures, was spent addressing the patient's acute on chronic hypoxemic respiratory failure, cardiogenic shock, review of all data and collaboration with the care team. Subjective Subjective The patient was seen and examined at the bedside this morning. Events from the last 24 hours have been reviewed. The patient is currently afebrile, hemodynamically stable and maintaining appropriate oxygen saturations on spontaneous mode of mechanical ventilation with an FiO2 requirement of 35%. Although the patient has done well from a spontaneous breathing trial this morning, nursing staff did report thick endotracheal tube secretions and an episode of mucous plugging overnight. White blood cell count is normal this morning. Hemoglobin and platelet count are stable. Chemistry profile was unremarkable. Objective Data Objective Data The patient's most recent lab work, culture data and imaging studies have all been personally reviewed. Surface echocardiogram demonstrated a severely dilated LV with an ejection fraction of 20 to 25%. Sputum culture was positive for 2+ Streptococcus pneumonia. Vital Signs: Vital Signs Temp Pulse Resp BP Pulse Ox O2 Del Method O2 Flow Rate 97.8 F 77 29 H 111/56 L 94 Mechanical Ventilator 6 12/25/23 00:00 12/25/23 07:11 12/25/23 07:11 12/25/23 07:00 12/25/23 07:11 12/25/23 07:00 12/21/23 14:00 FiO2 35 12/25/23 05:00 Oxygen Flow Rate (L/min) 6 Oxygen Delivery Method Mechanical Ventilator Weight: 108 lb 3.951 oz Body Mass Index (BMI) 17.4 Intake & Output: Intake and Output for Last 24 Hours 12/23/23 12/24/23 12/25/23 23:59 23:59 23:59 Intake Total 2668.73 / 2758.63 2656.96 / 2684.86 556.73 / 556.73 Output Total 1760 / 1760 775 / 815 260 / 260 Balance 908.73 / 998.63 1881.96 / 1869.86 296.73 / 296.73 Medical Nutrition Assessment Dietitian: Malnutrition Criteria Met Start: 12/21/23 14:40 Freq: Status: Active Protocol: Document 12/24/23 09:29 BUFFY (Rec: 12/24/23 09:29 BUFFY [id number]) Nutrition Malnutrition Evidence of Malnutrition Exists Yes Malnutrition (severe): Chronic Evidenced By Suboptimal Energy Intake ( Severe),Physical Changes ( Severe) Intake Problem Inadequate Oral Intake Etiology related to decreased ability to consume sufficient energy to meet estimated nutrient needs Signs/Symptoms as evidenced by intubation with mechanical ventilation requiring enteral provision. Status Active Problem Clinical Problem Chronic Disease or Condition Related Malnutrition Etiology chronic severe malnutrition related to inadequate oral intake and increase energy needs d/t COPD Signs/Symptoms as evidenced by estimated PO intake meeting <75% of estimated nutritional needs x 1 year, severe muscle/fat loss in orbital, clavicle, and temporal areas, and BMI 17.0. Status Active Problem Recommendation Dietitian Recommendations/Changes NPO while on vent Increase tf to Vital AF 1.2 at goal rate of 40mL/hr x 24 hours with free water flush of 60mL every 4 hours as tolerated. Lab / Micro Data Attestation: I reviewed the patient's lab results. 12/25/23 04:45 12/25/23 04:45 Labs: Laboratory Results - last 24 hr 12/25/23 04:45: WBC 8.2, RBC 3.15 L, Hgb 9.4 L, Hct 30.2 L, MCV 95.9, MCH 29.8, MCHC 31.1 L, RDW Std Deviation 52.2 H, RDW Coeff of Oral 14.8 H, Plt Count 230, MPV 11.3, Immature Gran % (Auto) 0.200, Neut % (Auto) 81.9 H, Lymph % (Auto) 8.3 L, [place] % (Auto) 8.8, Eos % (Auto) 0.7, Baso % (Auto) 0.1, Absolute Neuts (auto) 6.7, Absolute Lymphs (auto) 0.68 L, Nucleated RBC % 0, Sodium 145, Potassium 3.6, Chloride 113 H, Carbon Dioxide 28.0, Anion Gap 4 L, BUN 26 H, Creatinine 0.47 L, Estim Creat Clear Calc 50.72, Est GFR (MDRD) Af Amer 168, Est GFR (MDRD) Non-Af 138, BUN/Creatinine Ratio 55.1 H, Glucose 171 H, Calcium 8.5 Micro: Microbiology 12/21/23 17:45 Blood Culture (Wb) - Femoral Artery Blood Culture - Preliminary No growth in 48 hours. 12/21/23 17:30 Sputum, Induced/Lukens Gram Stain - Final 12/21/23 17:30 Sputum, Induced/Lukens Respiratory Culture - Final Streptococcus pneumoniae 12/21/23 18:10 Urine Catheter - Catheter Urine Culture - Final Presumptive Lactobacillus sp. ABG Data ABG results: ABG 12/23/23 09:48 Specimen Type ART Sample Site L Radial pH 7.40 Bicarbonate Actual 25.4 Total CO2 27 Base Excess 1 O2 Saturation 87 L O2 % 30.0 ABG pCO2 40.7 ABG pO2 52 L Ronan Test Positive Respiration Rate 16 O2 Delivery Device Adult Vent Vent Mode AC Tidal Volume 400.0 POC PEEP 5 Physical Exam Const Constitutional Narrative: Intubated, sedated and mechanically ventilated. No ventilator dyssynchrony noted. HEENT normocephalic and head/scalp atraumatic Mouth: endotracheal tube in place and OG tube in place Eyes PERRL and EOMs intact bilaterally Neck supple General: trachea midline Chest Chest Narrative: Increased AP diameter. Resp Resp Narrative: Globally diminished air movement throughout all lung cantor. Cardio regular rate and regular rhythm GI normal to inspection, nondistended, normoactive bowel sounds Extremity no clubbing, cyanosis or edema Skin no rashes or lesions noted Neuro Sensorium / Orientation: sedated on vent Psych Activity / Motor Behavior: restless Charges/Coding Procedures Hospitalists Procedures: [id number] Critical Care 1st Hr
[2023-12-25] MEDS: Thiamine Hydrochloride 100 MG in 0.9% Normal Saline (50mL Bag) 50 ML 200 MG IV (07:48)
[2023-12-25] MEDS: Folic Acid 1 MG in 0.9% Normal Saline (50mL Bag) 50 ML 200 MG IV (09:15)
[2023-12-25] MEDS: Enoxaparin 40 MG/0.4 ML Syringe SC (09:17)
[2023-12-25] MEDS: Chlorhexidine 15 ML PO ×2 (09:17→22:56)
[2023-12-25] MEDS: Pantoprazole Sodium 40 MG in 0.9% Normal Saline (100mL MB+) 100 ML 330 MG IV (10:36)
--- NOTE | 2023-12-25 12:00 | PCM.PN.HOSP ---
Reason for Visit Reason for Visit: Diagnoses Malignant neoplasm of unspecified part of unspecified bronchus or lung (12/20/23) Unspecified severe protein-calorie malnutrition (12/20/23) Hypokalemia (12/20/23) Cardiomyopathy, unspecified (12/20/23) Unspecified systolic (congestive) heart failure (12/20/23) Heart failure, unspecified (12/20/23) Acute and chronic respiratory failure with hypoxia (12/20/23) Urinary tract infection, site not specified (12/20/23) Bradycardia, unspecified (12/20/23) Cardiogenic shock (12/20/23) Objective Data Objective Data Vital Signs: Vital Signs Temp Pulse Resp BP Pulse Ox O2 Del Method O2 Flow Rate 97.9 F 66 16 98/57 L 95 Mechanical Ventilator 6 12/25/23 08:00 12/25/23 11:33 12/25/23 11:33 12/25/23 11:00 12/25/23 11:33 12/25/23 11:00 12/21/23 14:00 FiO2 35 12/25/23 11:33 Oxygen Flow Rate (L/min) 6 Oxygen Delivery Method Mechanical Ventilator Weight: 108 lb 3.951 oz Body Mass Index (BMI) 17.4 Intake & Output: Intake and Output for Last 24 Hours 12/23/23 12/24/23 12/25/23 23:59 23:59 23:59 Intake Total 2668.73 / 2758.63 2656.96 / 2684.86 927.76 / 927.76 Output Total 1760 / 1760 775 / 815 510 / 510 Balance 908.73 / 998.63 1881.96 / 1869.86 417.76 / 417.76 Medical Nutrition Assessment Dietitian: Malnutrition Criteria Met Start: 12/21/23 14:40 Freq: Status: Active Protocol: Document 12/24/23 09:29 [facility] (Rec: 12/24/23 09:29 [id number] [id number]) Nutrition Malnutrition Evidence of Malnutrition Exists Yes Malnutrition (severe): Chronic Evidenced By Suboptimal Energy Intake ( Severe),Physical Changes ( Severe) Intake Problem Inadequate Oral Intake Etiology related to decreased ability to consume sufficient energy to meet estimated nutrient needs Signs/Symptoms as evidenced by intubation with mechanical ventilation requiring enteral provision. Status Active Problem Clinical Problem Chronic Disease or Condition Related Malnutrition Etiology chronic severe malnutrition related to inadequate oral intake and increase energy needs d/t COPD Signs/Symptoms as evidenced by estimated PO intake meeting <75% of estimated nutritional needs x 1 year, severe muscle/fat loss in orbital, clavicle, and temporal areas, and BMI 17.0. Status Active Problem Recommendation Dietitian Recommendations/Changes NPO while on vent Increase tf to Vital AF 1.2 at goal rate of 40mL/hr x 24 hours with free water flush of 60mL every 4 hours as tolerated. Lab / Micro Data 12/25/23 04:45 12/25/23 04:45 Labs: Laboratory Results - last 24 hr 12/25/23 04:45: WBC 8.2, RBC 3.15 L, Hgb 9.4 L, Hct 30.2 L, MCV 95.9, MCH 29.8, MCHC 31.1 L, RDW Std Deviation 52.2 H, RDW Coeff of Oral 14.8 H, Plt Count 230, MPV 11.3, Immature Gran % (Auto) 0.200, Neut % (Auto) 81.9 H, Lymph % (Auto) 8.3 L, Webb % (Auto) 8.8, Eos % (Auto) 0.7, Baso % (Auto) 0.1, Absolute Neuts (auto) 6.7, Absolute Lymphs (auto) 0.68 L, Nucleated RBC % 0, Sodium 145, Potassium 3.6, Chloride 113 H, Carbon Dioxide 28.0, Anion Gap 4 L, BUN 26 H, Creatinine 0.47 L, Estim Creat Clear Calc 50.72, Est GFR (MDRD) Af Amer 168, Est GFR (MDRD) Non-Af 138, BUN/Creatinine Ratio 55.1 H, Glucose 171 H, Calcium 8.5 Micro: Microbiology 12/21/23 17:45 Blood Culture (Wb) - Femoral Artery Blood Culture - Preliminary No growth in 48 hours. 12/21/23 17:30 Sputum, Induced/Lukens Gram Stain - Final 12/21/23 17:30 Sputum, Induced/Lukens Respiratory Culture - Final Streptococcus pneumoniae 12/21/23 18:10 Urine Catheter - Catheter Urine Culture - Final Presumptive Lactobacillus sp. Physical Exam Narrative Patient is still intubated, on ventilator. 35% FiO2 PEEP 5. On Precedex and fentanyl drip. Physical exam General: On light sedation but responding to simple command. Awake. HEENT: Atraumatic, Normocephalic Oral: ET and OG tube Neck: Supple, No JVD, Negative Carotid Bruits Chest wall/Lungs: On ventilator. Air entry diminished in bilateral lung bases. No crepitation/rhonchi Cardiovascular: Sinus rhythm with bigeminy. Normal S1, Normal S2, No M/G/R Abdomen: Bowel Sounds Present, Soft, Non Tender, Non-Distended : Hare catheter. Clear urine No renal angle tenderness. No suprapubic tenderness. Extremities: No edema, Capillary Refill Less than 3 Seconds Skin: No rashes, No breakdown Musculoskeletal: No Tenderness to Palpation of Joints or Extremities Neurological: Cranial nerves II-XII grossly intact, DTR 2+/4. No acute focal neurological deficit. Psych/Mental Status: On light sedation Assessment & Plan Assessment/Plan (1) Cardiogenic shock: (2) Acute on chronic hypoxic respiratory failure: (3) Hypokalemia: (4) Squamous cell carcinoma of lung: (5) Bradycardia: (6) Severe malnutrition: PLAN: Plan 1. Cardiogenic shock -Patient acutely decompensated on PCU on 12/21/2023 -Etiology is unclear but doubt ischemic -This is a rapidly declining EF as she had a normal echocardiogram on 11/30/2023 and her EF is now 25% in the outpatient setting she was 45% just a few days ago -Repeat echo was read at 20 to 25% -Discussed with aviation all source intelligence, continue goal-directed therapy due to decompensation Patient is off Levophed. Dobutamine was discontinued earlier. Patient was having mild arrhythmia 12/24: Patient off vasopressor for more than 2 days. Maintaining blood pressure. athletic monitor shows PVCs and bigeminy but frequency has improved 2. Acute on chronic hypoxic respiratory failure: On vent support. ABG is consistent with chronic hypercapnia. Environmental Adviser managing. Currently only on fentanyl drip and Precedex drip. Propofol is tapered off 12/24: Still on vent support. On fentanyl and Precedex drip. 3. Alpha hemolytic strep pneumonia: Chest x-ray initially reviewed. Shows left basilar atelectasis/infiltrate. No consolidation or edema effusion. Sputum culture shows 2+ strep pneumoniae -Sensitivities are pending -Unasyn was started on 12/20: No fever. 4. Arrhythmia: Patient had bradycardia, also has bigeminy: Had 1 episode symptomatic bradycardia with heart rate in upper 30s to 40s on 12/20: Responded well to atropine. No dobutamine and no Levophed has been discontinued. Senior Electrical Controls Engineer is following. Monitor Hypokalemia -Resolved but still less than 4 so we will give another 40 mEq via OG -Mag remains greater than 2 Mild acute normocytic normochromic anemia, inflammatory anemia. Probably from multiple acute events including infection, cardiogenic shock. Small cell carcinoma of the lung -PET scan was negative for any metastasis -Oncology is staging mediastinum for mets -May be a candidate for curative resection -Follows with [facility] for pulmonary and oncology -Discussed with Dr. Zheng Severe malnutrition -Continue thiamine -Continue folate -Continue multivitamin -Tube feeds are running and at goal -Dietitian is following GERD -Continue IV PPI 40 mg daily -Patient is on oral PPI at baseline Depression -Home Cymbalta is on hold Ongoing nicotine abuse -Advised cessation Essential hypertension/hyperlipidemia -Hold home losartan -Hold home atorvastatin Chronic pain -Hold home gabapentin -Hold home opiates COPD -See above -Hold home inhalers -Follows with Dr. Alma Bentley at [facility] DVT prophylaxis -Subcu Lovenox but may need to hold depending on hemoglobin tomorrow CODE STATUS -Full code as discussed with patient at admission and prior to acute decompensation requiring intubation with granddaughter at the bedside Clinical Impression(s) from Imaging Studies Chest X-Ray 12/20/23 15:35 IMPRESSION: Stable chest with no active or acute cardiopulmonary disease. Electronically Signed: Jai Madera MD at 15:48 EDT , Echocardiogram 12/20/23 15:46 Interpretation Summary The left ventricular ejection fraction is 25 %. Moderately dilated left ventricle. There is severe global hypokinesis of the left ventricle. Mild-Moderate (1-2+) mitral valve insufficiency. Contrast injection was performed. Compared to previous study, the left ventricular systolic function has worsened.. Ordering Physician: Brenden Davis Referring Physician: May Garcia M.D. Performed By: Kitty Voss, JUAN Chest X-Ray 12/21/23 16:20 IMPRESSION: Left basilar atelectasis. Electronically Signed: Edwardo Leonard DO at 17:24 EDT Reading Location ID and State: [facility] / [place] Tel [phone], Service support , Echocardiogram 12/22/23 05:56 Interpretation Summary The estimated ejection fraction is 20-25 %. Severe LV systolic Dysfunction No change from previous Echo Ordering Physician: Sherrie Cui Performed By: Andres Soria RCS Charges/Coding Visit Charges Inpatient E&M: 32078 Subs Hosp L3
[2023-12-25] MEDS: Dexmedetomidine 1,000 mcg in 0.9% NS 240 mL 18.4 MCG CONT INF (13:23)
[2023-12-25] MEDS: Vital AF 1.2 Cal Liquid 1,000 ML 40 ML GT (15:13)
[2023-12-26] VITALS (27 sets, daily range): BP systolic 114–188; BP diastolic 45–130; PULSE 71–131; RESP 12–44; TEMP 35.8–37; O2SAT 77–99; BMI 17.7
[2023-12-26] MEDS: Dexmedetomidine 1,000 mcg in 0.9% NS 240 mL 18.4 MCG CONT INF (01:01)
[2023-12-26 04:36] LABS: Absolute Lymphocyte Count 0.65 X10^3/uL (0.83-4.51); Absolute Neutrophil Count 5.3 X10^3/uL (2.0-7.7); Basophil# 0.01 X10^3/uL; Basophil% 0.1 % (0-1); Eosinophil# 0.09 X10^3/uL; Eosinophils% 1.3 % (0-5); Hematocrit 29.7 % (37-47); Hemoglobin 9.1 g/dL (12.0-15.0); Lymphocyte # 0.65 X10^3/ul (0.83-4.51); Lymphocyte % 9.7 % (19-41); Mean Corp Hgb Conc 30.6 g/dL (32-36); Mean Corpuscular Hgb 29.6 pg (27.0-32.0); Mean Corpuscular Volume 96.7 fL (81-99); Mean Platelet Vol. 10.7 fl (6.2-12.0); Monocyte# 0.63 X10^3/uL; Monocyte% 9.4 % (0-10); NRBC Flagged by Analyzer 0 % (0-5); Neutrophil # 5.34 X10^3/uL (2.7-7.7); Neutrophil % 79.4 % (47-70); Platelet Count 259 K/mm3 (150-450); RBC Distribution Width CV 14.7 % (11.6-14.6); Red Blood Count 3.07 M/mm3 (4.2-5.4); White Blood Count 6.7 K/mm3 (4.4-11.0)
[2023-12-26 04:50] LABS: Anion Gap 3 (5-15); BUN 28 mg/dL (7-18); BUN/Creat Ratio 65.1 RATIO (10-20); Calcium,Total 8.4 mg/dL (8.5-10.1); Chloride 116 mmol/L (98-107); Creatinine, Serum 0.43 mg/dL (0.55-1.02); EST Glomerular Filtration Rate 154 mL/min (>60); Est Glom Filt Rate - Afr Amer 187 mL/min (>60); Estimated Creatinine Clearance 50.72 ml/min; Glucose 134 mg/dL (74-106); Potassium 3.5 mmol/L (3.5-5.1); Sodium Level 148 mmol/L (136-145)
[2023-12-26] MEDS: 0.9% Saline Lock 10 ML Syringe IV ×4 (05:28→19:01)
[2023-12-26] MEDS: Ampicillin/Sulbactam 3 GM in 0.9% Normal Saline (100mL MB+) 100 ML IV ×2 (05:28→11:47)
--- NOTE | 2023-12-26 07:08 | PCM.PN.INT ---
Assessment & Plan Assessment/Plan (1) Congestive heart failure with left ventricular systolic dysfunction: (2) Squamous cell carcinoma of lung: (3) Acute on chronic hypoxic respiratory failure: PLAN: Plan RECOMMENDATIONS: 1. Continue antimicrobials to complete 7 days of therapy. 2. Proceed with a trial of extubation this morning. 3. Once extubated, wean supplemental oxygen to maintain saturations 88 to 92%. 4. Bedside swallow evaluation prior to advancement of diet. 5. Continue scheduled bronchodilators. 6. Continue nicotine replacement therapy. 7. Continue appropriate ICU prophylaxis. IMPRESSIONS: 1. Acute on chronic hypoxemic respiratory failure Likely multifactorial in etiology with underlying decompensated heart failure and COPD in a state of exacerbation due to pneumococcal pneumonia, contributing. The patient will be continued on scheduled bronchodilators and appropriate antimicrobials as indicated. The patient has improved from a respiratory perspective. Therefore, we will plan to proceed with a trial of extubation this morning. Once extubated, wean supplemental oxygen as tolerated. 2. Cardiogenic shock Improved. Per cardiology, clinical concern for viral myocarditis. They are recommending further cardiac workup once the patient is medically stabilized. The patient has been weaned from vasopressor support at the present time and remains hemodynamically stable. Continue supportive measures as noted above. 3. History of chronic tobacco dependency/recent diagnosis of squamous cell carcinoma/pulmonary cachexia/hypertension Complicates care, management, recovery and prognosis. Continue nicotine replacement therapy. Recommend outpatient follow-up with oncology after discharge. TIME: 33 minutes of critical care time, independent of procedures, was spent addressing the patient's acute on chronic hypoxemic respiratory failure, cardiogenic shock, review of all data and collaboration with the care team. Subjective Subjective The patient was seen and examined at the bedside this morning. Events from the last 24 hours have been reviewed. The patient is currently afebrile, hemodynamically stable and maintaining appropriate oxygen saturations on spontaneous mode of mechanical ventilation with an FiO2 requirement of 30%. Endotracheal tube secretions are improving. The patient passed her spontaneous breathing trial this morning without issue. She is alert and appropriately interactive. The patient is currently documented to be overall net +8.6 L for the hospitalization. White blood cell count is normal this morning. Hemoglobin and platelet count are stable. Objective Data Objective Data The patient's most recent lab work, culture data and imaging studies have all been personally reviewed. Surface echocardiogram demonstrated a severely dilated LV with an ejection fraction of 20 to 25%. Sputum culture was positive for 2+ Streptococcus pneumonia. Vital Signs: Vital Signs Temp Pulse Resp BP Pulse Ox O2 Del Method O2 Flow Rate 97.5 F L 71 23 H 137/82 H 95 Mechanical Ventilator 6 12/26/23 05:00 12/26/23 07:00 12/26/23 07:00 12/26/23 07:00 12/26/23 07:00 12/26/23 07:00 12/21/23 14:00 FiO2 30 12/26/23 07:00 Oxygen Flow Rate (L/min) 6 Oxygen Delivery Method Mechanical Ventilator Weight: 109 lb 12.643 oz Body Mass Index (BMI) 17.7 Intake & Output: Intake and Output for Last 24 Hours 12/24/23 12/25/23 12/26/23 23:59 23:59 23:59 Intake Total 2656.96 / 2684.86 2590.51 / 2669.74 970.22 / 970.22 Output Total 775 / 815 860 / 860 200 / 200 Balance 1881.96 / 1869.86 1730.51 / 1809.74 770.22 / 770.22 Medical Nutrition Assessment Dietitian: Malnutrition Criteria Met Start: 12/21/23 14:40 Freq: Status: Active Protocol: Document 12/24/23 09:29 [facility] (Rec: 12/24/23 09:29 [facility] [id number]) Nutrition Malnutrition Evidence of Malnutrition Exists Yes Malnutrition (severe): Chronic Evidenced By Suboptimal Energy Intake ( Severe),Physical Changes ( Severe) Intake Problem Inadequate Oral Intake Etiology related to decreased ability to consume sufficient energy to meet estimated nutrient needs Signs/Symptoms as evidenced by intubation with mechanical ventilation requiring enteral provision. Status Active Problem Clinical Problem Chronic Disease or Condition Related Malnutrition Etiology chronic severe malnutrition related to inadequate oral intake and increase energy needs d/t COPD Signs/Symptoms as evidenced by estimated PO intake meeting <75% of estimated nutritional needs x 1 year, severe muscle/fat loss in orbital, clavicle, and temporal areas, and BMI 17.0. Status Active Problem Recommendation Dietitian Recommendations/Changes NPO while on vent Increase tf to Vital AF 1.2 at goal rate of 40mL/hr x 24 hours with free water flush of 60mL every 4 hours as tolerated. Lab / Micro Data Attestation: I reviewed the patient's lab results. 12/26/23 04:30 12/26/23 04:30 Labs: Laboratory Results - last 24 hr 12/26/23 03:45: WBC Cancelled, Corrected WBC Cancelled, RBC Cancelled, Hgb Cancelled, Hct Cancelled, MCV Cancelled, MCH Cancelled, MCHC Cancelled, RDW Std Deviation Cancelled, RDW Coeff of Oral Cancelled, Plt Count Cancelled, MPV Cancelled, Immature Gran % (Auto) Cancelled, Neut % (Auto) Cancelled, Lymph % (Auto) Cancelled, Gates % (Auto) Cancelled, Eos % (Auto) Cancelled, Baso % (Auto) Cancelled, Absolute Neuts (auto) Cancelled, Absolute Lymphs (auto) Cancelled, Total Counted Cancelled, Neutrophils % (Manual) Cancelled, Band Neutrophils % Cancelled, Lymphocytes % (Manual) Cancelled, Monocytes % (Manual) Cancelled, Eosinophils % (Manual) Cancelled, Basophils % (Manual) Cancelled, Metamyelocytes % Cancelled, Myelocytes % Cancelled, Promyelocytes % Cancelled, Blast Cells % Cancelled, Plasma Cell % (Manual) Cancelled, Other Cells % Cancelled, Nucleated RBC % Cancelled, Nucleated RBCs/100 WBC Cancelled, Differential Comment Cancelled, Diff Path Review Cancelled, Hypersegmented Neuts Cancelled, Atypical Lymphocytes Cancelled, Reactive Lymphocytes Cancelled, Smudge Cells Cancelled, Toxic Granulation Cancelled, Toxic Vacuolation Cancelled, Dohle Bodies Cancelled, Messi Rods Cancelled, Platelet Estimate Cancelled, Plt Morphology Comment Cancelled, RBC Morphology Cancelled 12/26/23 03:45: RBC Morphology Cancelled, Polychromasia Cancelled, Hypochromasia Cancelled, Basophilic Stippling Cancelled, Anisocytosis Cancelled, Microcytosis Cancelled, Macrocytosis Cancelled, Spherocytes Cancelled, Sickle Cells Cancelled, Target Cells Cancelled, Tear Drop Cells Cancelled, Ovalocytes Cancelled, Stomatocytes Cancelled, [place] Bodies Cancelled, Kalani Cells Cancelled, Bite Cells Cancelled, Crenated Cell Cancelled, Acanthocytes (Spur) Cancelled, Rouleaux Cancelled, Schistocytes Cancelled, Sodium Cancelled, Potassium Cancelled, Chloride Cancelled, Carbon Dioxide Cancelled, Anion Gap Cancelled, BUN Cancelled, Creatinine Cancelled, Estim Creat Clear Calc Cancelled, Est GFR (MDRD) Af Amer Cancelled, Est GFR (MDRD) Non-Af Cancelled, BUN/Creatinine Ratio Cancelled, Glucose Cancelled, Calcium Cancelled 12/26/23 04:30: WBC 6.7, RBC 3.07 L, Hgb 9.1 L, Hct 29.7 L, MCV 96.7, MCH 29.6, MCHC 30.6 L, RDW Std Deviation 52.0 H, RDW Coeff of Oral 14.7 H, Plt Count 259, MPV 10.7, Immature Gran % (Auto) 0.100, Neut % (Auto) 79.4 H, Lymph % (Auto) 9.7 L, Gates % (Auto) 9.4, Eos % (Auto) 1.3, Baso % (Auto) 0.1, Absolute Neuts (auto) 5.3, Absolute Lymphs (auto) 0.65 L, Nucleated RBC % 0, Sodium 148 H, Potassium 3.5, Chloride 116 H, Carbon Dioxide 30.0, Anion Gap 3 L, BUN 28 H, Creatinine 0.43 L, Estim Creat Clear Calc 50.72, Est GFR (MDRD) Af Amer 187, Est GFR (MDRD) Non-Af 154, BUN/Creatinine Ratio 65.1 H, Glucose 134 H, Calcium 8.4 L Micro: Microbiology 12/21/23 17:45 Blood Culture (Wb) - Femoral Artery Blood Culture - Preliminary No growth in 48 hours. 12/21/23 17:30 Sputum, Induced/Lukens Gram Stain - Final 12/21/23 17:30 Sputum, Induced/Lukens Respiratory Culture - Final Streptococcus pneumoniae 12/21/23 18:10 Urine Catheter - Catheter Urine Culture - Final Presumptive Lactobacillus sp. ABG Data ABG results: ABG 12/23/23 09:48 Specimen Type ART Sample Site L Radial pH 7.40 Bicarbonate Actual 25.4 Total CO2 27 Base Excess 1 O2 Saturation 87 L O2 % 30.0 ABG pCO2 40.7 ABG pO2 52 L Ronan Test Positive Respiration Rate 16 O2 Delivery Device Adult Vent Vent Mode AC Tidal Volume 400.0 POC PEEP 5 Physical Exam Const Constitutional Narrative: Remains intubated and mechanically ventilated. Tolerating spontaneous mode of mechanical ventilation. HEENT normocephalic and head/scalp atraumatic Mouth: endotracheal tube in place and OG tube in place Eyes PERRL and EOMs intact bilaterally Neck supple General: trachea midline Chest Chest Narrative: Increased AP diameter. Resp Resp Narrative: Globally diminished air movement throughout all lung cantor. Cardio regular rate and regular rhythm GI normal to inspection, nondistended, normoactive bowel sounds Extremity no clubbing, cyanosis or edema Skin no rashes or lesions noted Neuro Neuro Narrative: Alert and able to follow simple commands. Psych Activity / Motor Behavior: restless Charges/Coding Procedures Hospitalists Procedures: 96101 Critical Care 1st Hr
[2023-12-26] MEDS: Budesonide Respules 0.5 MG/2 ML AMPUL.NEB. INHALATION (07:23)
[2023-12-26] MEDS: Ipratropium/Albuterol Sulfate 3 ML AMPUL.NEB INHALATION (07:23)
[2023-12-26] MEDS: CHLORHEXIDINE GLUC 2% CLOTH 1 EACH TOWELETTE TOPICAL (07:50)
[2023-12-26] MEDS: Enoxaparin 40 MG/0.4 ML Syringe SC (07:50)
[2023-12-26] MEDS: Pantoprazole Sodium 40 MG in 0.9% Normal Saline (100mL MB+) 100 ML 330 MG IV (07:50)
--- NOTE | 2023-12-26 08:20 | NURSING ---
pulse ox not reading, changed cords and ear and finger probes, when good reading was obtained O2 sats 77% on 6L NC, increased to high flow NC at 8L then 10L, Dr. Bentley made aware, order for airvo. Matt at bedside setting up airvo, pulse ox placed on ear and reading obtained, O2 sats 96% on airvo 60L/55%
[2023-12-26] MEDS: Thiamine Hydrochloride 100 MG in 0.9% Normal Saline (50mL Bag) 50 ML 200 MG IV (09:49)
[2023-12-26] MEDS: Folic Acid 1 MG in 0.9% Normal Saline (50mL Bag) 50 ML 200 MG IV (09:49)
--- NOTE | 2023-12-26 09:57 | PN.HOSP_ITS ---
Reason for Visit Reason for Visit: Diagnoses Malignant neoplasm of unspecified part of unspecified bronchus or lung (12/20/23) Unspecified severe protein-calorie malnutrition (12/20/23) Hypokalemia (12/20/23) Cardiomyopathy, unspecified (12/20/23) Unspecified systolic (congestive) heart failure (12/20/23) Heart failure, unspecified (12/20/23) Acute and chronic respiratory failure with hypoxia (12/20/23) Urinary tract infection, site not specified (12/20/23) Bradycardia, unspecified (12/20/23) Cardiogenic shock (12/20/23) Objective Data Objective Data Vital Signs: Vital Signs Temp Pulse Resp BP Pulse Ox O2 Del Method O2 Flow Rate 96.5 F L 104 H 22 H 159/73 H 96 Airvo 60 12/26/23 08:00 12/26/23 09:00 12/26/23 09:00 12/26/23 09:00 12/26/23 09:00 12/26/23 09:00 12/26/23 09:00 FiO2 55 12/26/23 09:00 Oxygen Flow Rate (L/min) 60 Oxygen Delivery Method Airvo Weight: 109 lb 12.643 oz Body Mass Index (BMI) 17.7 Intake & Output: Intake and Output for Last 24 Hours 12/24/23 12/25/23 12/26/23 23:59 23:59 23:59 Intake Total 2656.96 / 2684.86 2590.51 / 2669.74 1143.47 / 1143.47 Output Total 775 / 815 860 / 860 250 / 250 Balance 1881.96 / 1869.86 1730.51 / 1809.74 893.47 / 893.47 Medical Nutrition Assessment Dietitian: Malnutrition Criteria Met Start: 12/21/23 14:40 Freq: Status: Active Protocol: Document 12/24/23 09:29 BUFFY (Rec: 12/24/23 09:29 [id number]) Nutrition Malnutrition Evidence of Malnutrition Exists Yes Malnutrition (severe): Chronic Evidenced By Suboptimal Energy Intake ( Severe),Physical Changes ( Severe) Intake Problem Inadequate Oral Intake Etiology related to decreased ability to consume sufficient energy to meet estimated nutrient needs Signs/Symptoms as evidenced by intubation with mechanical ventilation requiring enteral provision. Status Active Problem Clinical Problem Chronic Disease or Condition Related Malnutrition Etiology chronic severe malnutrition related to inadequate oral intake and increase energy needs d/t COPD Signs/Symptoms as evidenced by estimated PO intake meeting <75% of estimated nutritional needs x 1 year, severe muscle/fat loss in orbital, clavicle, and temporal areas, and BMI 17.0. Status Active Problem Recommendation Dietitian Recommendations/Changes NPO while on vent Increase tf to Vital AF 1.2 at goal rate of 40mL/hr x 24 hours with free water flush of 60mL every 4 hours as tolerated. Lab / Micro Data 12/26/23 04:30 12/26/23 04:30 Labs: Laboratory Results - last 24 hr 12/26/23 03:45: WBC Cancelled, Corrected WBC Cancelled, RBC Cancelled, Hgb Cancelled, Hct Cancelled, MCV Cancelled, MCH Cancelled, MCHC Cancelled, RDW Std Deviation Cancelled, RDW Coeff of Oral Cancelled, Plt Count Cancelled, MPV Cancelled, Immature Gran % (Auto) Cancelled, Neut % (Auto) Cancelled, Lymph % (Auto) Cancelled, [place] % (Auto) Cancelled, Eos % (Auto) Cancelled, Baso % (Auto) Cancelled, Absolute Neuts (auto) Cancelled, Absolute Lymphs (auto) Cancelled, Total Counted Cancelled, Neutrophils % (Manual) Cancelled, Band Neutrophils % Cancelled, Lymphocytes % (Manual) Cancelled, Monocytes % (Manual) Cancelled, Eosinophils % (Manual) Cancelled, Basophils % (Manual) Cancelled, Metamyelocytes % Cancelled, Myelocytes % Cancelled, Promyelocytes % Cancelled, Blast Cells % Cancelled, Plasma Cell % (Manual) Cancelled, Other Cells % Cancelled, Nucleated RBC % Cancelled, Nucleated RBCs/100 WBC Cancelled, Differential Comment Cancelled, Diff Path Review Cancelled, Hypersegmented Neuts Cancelled, Atypical Lymphocytes Cancelled, Reactive Lymphocytes Cancelled, Smudge Cells Cancelled, Toxic Granulation Cancelled, Toxic Vacuolation Cancelled, Dohle Bodies Cancelled, Messi Rods Cancelled, Platelet Estimate Cancelled, Plt Morphology Comment Cancelled, RBC Morphology Cancelled 12/26/23 03:45: RBC Morphology Cancelled, Polychromasia Cancelled, Hypochromasia Cancelled, Basophilic Stippling Cancelled, Anisocytosis Cancelled, Microcytosis Cancelled, Macrocytosis Cancelled, Spherocytes Cancelled, Sickle Cells Cancelled, Target Cells Cancelled, Tear Drop Cells Cancelled, Ovalocytes Cancelled, Stomatocytes Cancelled, [place] Bodies Cancelled, [place] Cells Cancelled, Bite Cells Cancelled, Crenated Cell Cancelled, Acanthocytes (Spur) Cancelled, Rouleaux Cancelled, Schistocytes Cancelled, Sodium Cancelled, Potassium Cancelled, Chloride Cancelled, Carbon Dioxide Cancelled, Anion Gap Cancelled, BUN Cancelled, Creatinine Cancelled, Estim Creat Clear Calc Cancelled, Est GFR (MDRD) Af Amer Cancelled, Est GFR (MDRD) Non-Af Cancelled, BUN/Creatinine Ratio Cancelled, Glucose Cancelled, Calcium Cancelled 12/26/23 04:30: WBC 6.7, RBC 3.07 L, Hgb 9.1 L, Hct 29.7 L, MCV 96.7, MCH 29.6, MCHC 30.6 L, RDW Std Deviation 52.0 H, RDW Coeff of Oral 14.7 H, Plt Count 259, MPV 10.7, Immature Gran % (Auto) 0.100, Neut % (Auto) 79.4 H, Lymph % (Auto) 9.7 L, [place] % (Auto) 9.4, Eos % (Auto) 1.3, Baso % (Auto) 0.1, Absolute Neuts (auto) 5.3, Absolute Lymphs (auto) 0.65 L, Nucleated RBC % 0, Sodium 148 H, Potassium 3.5, Chloride 116 H, Carbon Dioxide 30.0, Anion Gap 3 L, BUN 28 H, Creatinine 0.43 L, Estim Creat Clear Calc 50.72, Est GFR (MDRD) Af Amer 187, Est GFR (MDRD) Non-Af 154, BUN/Creatinine Ratio 65.1 H, Glucose 134 H, Calcium 8.4 L Micro: Microbiology 12/21/23 17:45 Blood Culture (Wb) - Femoral Artery Blood Culture - Preliminary No growth in 48 hours. 12/21/23 17:30 Sputum, Induced/Lukens Gram Stain - Final 12/21/23 17:30 Sputum, Induced/Lukens Respiratory Culture - Final Streptococcus pneumoniae 12/21/23 18:10 Urine Catheter - Catheter Urine Culture - Final Presumptive Lactobacillus sp. Physical Exam Narrative Seen and examined. Patient extubated in the morning. Currently on Airvo. She failed swallow screen therefore NPO. Speech therapy is ordered. Precedex and fentanyl drip are discontinued Physical exam General: Awake. Alert oriented x 3. She is talking and coherent HEENT: Atraumatic, Normocephalic Oral: Extubated. Oral mucosa dry. Neck: Supple, No JVD, Negative Carotid Bruits Chest wall/Lungs: Air entry diminished in bilateral lungs. Mild coarse expiratory rhonchi Cardiovascular: Sinus rhythm with bigeminy. Normal S1, Normal S2, No M/G/R Abdomen: Bowel Sounds Present, Soft, Non Tender, Non-Distended : Hare catheter. Clear urine No renal angle tenderness. No suprapubic tenderness. Extremities: No edema, Capillary Refill Less than 3 Seconds Skin: No rashes, No breakdown Musculoskeletal: No Tenderness to Palpation of Joints or Extremities Neurological: Cranial nerves II-XII grossly intact, DTR 2+/4. No acute focal neurological deficit. Psych/Mental Status: On light sedation Assessment & Plan Assessment/Plan (1) Cardiogenic shock: (2) Acute on chronic hypoxic respiratory failure: (3) Hypokalemia: (4) Squamous cell carcinoma of lung: (5) Bradycardia: (6) Severe malnutrition: PLAN: Plan 1. Cardiogenic shock -Patient acutely decompensated on PCU on 12/21/2023 -Etiology is unclear but doubt ischemic -This is a rapidly declining EF as she had a normal echocardiogram on 11/30/2023 and her EF is now 25% in the outpatient setting she was 45% just a few days ago -Repeat echo was read at 20 to 25% -Discussed with tuyere fitter, continue goal-directed therapy due to decompensation Patient is off Levophed. Dobutamine was discontinued earlier. Patient was having mild arrhythmia 12/24: Patient off vasopressor for more than 2 days. Maintaining blood pressure. quality assurance monitor body shows PVCs and bigeminy but frequency has improved 12/25: Patient is maintaining blood pressure. 159/73. Discontinue Hare catheter. 2. Acute on chronic hypoxic respiratory failure: On vent support. ABG is consistent with chronic hypercapnia. Cessation Systems Outreach Specialist managing. Currently only on fentanyl drip and Precedex drip. Propofol is tapered off 12/24: Still on vent support. On fentanyl and Precedex drip. 12/25: Extubated. Precedex and fentanyl drip were discontinued before extubation. Failed swallow screen. Speech therapy ordered. 3. Alpha hemolytic strep pneumonia: Chest x-ray initially reviewed. Shows left basilar atelectasis/infiltrate. No consolidation or edema effusion. Sputum culture shows 2+ strep pneumoniae -Sensitivities are pending -Unasyn was started on 12/20: No fever. 4. Arrhythmia: Patient had bradycardia, also has bigeminy: Had 1 episode symptomatic bradycardia with heart rate in upper 30s to 40s on 12/20: Responded well to atropine. No dobutamine and no Levophed has been discontinued. Paperboard Boxes Estimator is following. Monitor 12/25: Patient still having multiple PVCs and ventricular bigeminy Hypokalemia -Resolved but still less than 4 so we will give another 40 mEq via OG -Mag remains greater than 2 Mild acute normocytic normochromic anemia, inflammatory anemia. Probably from multiple acute events including infection, cardiogenic shock. Small cell carcinoma of the lung -PET scan was negative for any metastasis -Oncology is staging mediastinum for mets -May be a candidate for curative resection -Follows with [facility] for pulmonary and oncology -Discussed with Dr. Zheng Severe malnutrition -Continue thiamine -Continue folate -Continue multivitamin -Tube feeds are running and at goal -Dietitian is following GERD -Continue IV PPI 40 mg daily -Patient is on oral PPI at baseline Depression -Home Cymbalta is on hold Ongoing nicotine abuse -Advised cessation Essential hypertension/hyperlipidemia -Hold home losartan -Hold home atorvastatin Chronic pain -Hold home gabapentin -Hold home opiates COPD -See above -Hold home inhalers -Follows with Dr. Alma Bentley at [facility] DVT prophylaxis -Subcu Lovenox but may need to hold depending on hemoglobin tomorrow CODE STATUS -Full code as discussed with patient at admission and prior to acute decompensation requiring intubation with granddaughter at the bedside I talked to the patient's granddaughter and her condition near the bedside Clinical Impression(s) from Imaging Studies Chest X-Ray 12/20/23 15:35 IMPRESSION: Stable chest with no active or acute cardiopulmonary disease. Electronically Signed: Jai Madera MD at 15:48 EDT , Echocardiogram 12/20/23 15:46 Interpretation Summary The left ventricular ejection fraction is 25 %. Moderately dilated left ventricle. There is severe global hypokinesis of the left ventricle. Mild-Moderate (1-2+) mitral valve insufficiency. Contrast injection was performed. Compared to previous study, the left ventricular systolic function has worsened.. Ordering Physician: Brenden Davis Referring Physician: May Garcia M.D. Performed By: Kitty Voss RDCS Chest X-Ray 12/21/23 16:20 IMPRESSION: Left basilar atelectasis. Electronically Signed: Edwardo Leonard DO at 17:24 EDT Reading Location ID and State: [facility] / MD Tel [phone], Service support , Echocardiogram 12/22/23 05:56 Interpretation Summary The estimated ejection fraction is 20-25 %. Severe LV systolic Dysfunction No change from previous Echo Ordering Physician: Sherrie Cui Performed By: Andres Soria RCS Charges/Coding Visit Charges Inpatient E&M: 91884 Subs Hosp L3
[2023-12-26] MEDS: Labetalol (Prefilled) 20 MG/4 ML IV (12:47)
[2023-12-26] MEDS: Menthol/Lanolin/Calamine/Znox 113 GM Tube 1 APPLIC TOPICAL (14:46)
[2023-12-26 16:08] LABS: Allen Test Positive; Base Excess 4 mmol/L (-2 to +2); Blood Gas Specimen Type ART; Comment airvo 60 lpm fi02 60; Mode Not entered; O2 Delivery Device HFNC; PO2 80 mmHG (75-100); SITE L Radial; SO2 96 % (95-99); Total Carbon Dioxide 30 mmol/L
--- NOTE | 2023-12-26 16:55 | CASEMGMT ---
Social Work- SW met with pt granddaughter and fiancee to discuss pt wishes for care. Both family members are aware of pt wishes/living will and are in agreement to carry out pt wishes at this time. Pt family to meet with physician. LOKI printed copy of living will for physician for discussion with family. SW will remain available for family needs. SABRINA Ly
[2023-12-26] MEDS: LORazepam 2 MG/ML Syringe 0.5 MG IV (17:56)
[2023-12-26] MEDS: Morphine 2 MG/ML Syringe IV ×3 (18:07→19:00)
--- NOTE | 2023-12-26 18:21 | NURSING ---
Hospice nurse at bedside with patient and family
[2023-12-26] MEDS: LORazepam 2 MG/ML Syringe IV ×2 (18:29→19:01)
[2023-12-26] MEDS: Atropine Sulfate 1% 2 ml Bottle 4 DRP PO (19:01)
--- NOTE | 2023-12-26 19:35 | PCM.HOSP.N ---
Hospitalist Note Notified by staff research scientist that patient passed. DOD: 12/26/23 Time of : 19:35
--- NOTE | 2023-12-26 19:35 | PN.HOSP_ITS ---
Hospitalist Note Notified by executive staff assistant that patient passed. DOD: 12/26/23 Time of : 19:35
--- NOTE | 2023-12-27 08:34 | EXP.PCM_ITS ---
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 Josué Campuzano MD) Congestive heart failure with left ventricular systolic dysfunction (Acute) Severe malnutrition (Acute) Bradycardia (Acute) Squamous cell carcinoma of lung (Acute) Hypokalemia (Acute) Cardiogenic shock (Acute) Cardiomyopathy (Acute) Acute heart failure (Acute) UTI (urinary tract infection) (Acute) Hospital Course 68-year-old female with history of chronic hypoxic and hypercarbic respiratory failure on 6 L of home oxygen was admitted on 12/20/2023 at the urging of her oncologist, Dr. Alberto for reduced EF. Earlier in the month patient had EF 55% but new echo showed EF 25% with global dysfunction. In the ED patient had BNP 900. Patient has chronic shortness of breath on exertion but denies any acute change in cough or shortness of breath. Patient is diagnosed with small cell carcinoma being worked up by Dr. Alma Bentley, [facility] loans officer and found not a surgical candidate. Her original echo showed severely dilated LV, 2-3+ HI, 2-3+ MR. Her further hospital course was as follows 1. Cardiogenic shock -Patient acutely decompensated on PCU on 12/21/2023 -Etiology is unclear but doubt ischemic -This is a rapidly declining EF as she had a normal echocardiogram on 11/30/2023 and her EF is now 25% in the outpatient setting she was 45% just a few days ago -Repeat echo was read at 20 to 25%. Echo done here showed normal pulmonary valve but 1-2+ MR. Mild TR with PASP 20 mmHg. Normal RV size systolic function. -Discussed with kitchen helper, continue goal-directed therapy due to decompensation Patient is off Levophed. Dobutamine was discontinued earlier. Patient was having mild arrhythmia 12/24: Patient off vasopressor for more than 2 days. Maintaining blood pressure. electrophysiology nurse practitioner shows PVCs and bigeminy but frequency has improved 12/25: Patient is maintaining blood pressure. 159/73. Discontinue Hare catheter. The shock was resolved with not requiring pressure for last 2-3 days 2. Acute on chronic hypoxic respiratory failure: On vent support. ABG is consistent with chronic hypercapnia. It Programmer managing. Currently only on fentanyl drip and Precedex drip. Propofol is tapered off 12/24: Still on vent support. On fentanyl and Precedex drip. 12/25: Extubated. Precedex and fentanyl drip were discontinued before extubation. Failed swallow screen. Speech therapy ordered. 3. Alpha hemolytic strep pneumonia: Chest x-ray initially reviewed. Shows left basilar atelectasis/infiltrate. No consolidation or edema effusion. Sputum culture shows 2+ strep pneumoniae -Sensitivities are pending -Unasyn was started on 12/20: No fever. 4. Arrhythmia: Patient had bradycardia, also has bigeminy: Had 1 episode symptomatic bradycardia with heart rate in upper 30s to 40s on 12/20: Responded well to atropine. No dobutamine and no Levophed has been discontinued. Trolley Car Operator is following. Monitor 12/25: Patient still having multiple PVCs and ventricular bigeminy Hypokalemia -Resolved but still less than 4 so we will give another 40 mEq via OG -Mag remains greater than 2 Mild acute normocytic normochromic anemia, inflammatory anemia. Probably from multiple acute events including infection, cardiogenic shock. Left lower lobe squamous cell carcinoma: Patient had a biopsy of left lung nodule with pathology report on 08/17/2023 reported squamous cell carcinoma. -PET scan was negative for any metastasis -Oncology is staging mediastinum for mets -Follows with [facility] for pulmonary and oncology ED physician-Discussed with Dr. Zheng Severe malnutrition -Continue thiamine -Continue folate -Continue multivitamin -Tube feeds are running and at goal -Dietitian is following GERD -Continue IV PPI 40 mg daily -Patient is on oral PPI at baseline Depression -Home Cymbalta is on hold Ongoing nicotine abuse -Advised cessation Essential hypertension/hyperlipidemia -Hold home losartan -Hold home atorvastatin Chronic pain -Hold home gabapentin -Hold home opiates COPD -See above -Hold home inhalers -Follows with Dr. Alma Bentley at [facility] DVT prophylaxis -Subcu Lovenox but may need to hold depending on hemoglobin tomorrow CODE STATUS -Initially she was full code as discussed with patient at admission and prior to acute decompensation requiring intubation with granddaughter at the bedside I talked to the patient's granddaughter and her condition near the bedside. Later on cardiology Dr. Reyez and I talked to patient's significant other, Mr. Dylan Winter and her granddaughter Mikala Carrera. Patient significant already knew that she has advanced COPD, chronic respiratory failure and small cell lung cancer. Her prognosis is worse. Today she is very tachypneic with increased respiratory distress and getting fatigued. Air was was changed to BiPAP. ABG showed pH 7.40/47/80 on on Airvo 60% FiO2. We had discussion about her living will. She had signed living will in October 2020 which is in the medical record. She states that she does not want CPR or other life-sustaining measures including intubation and ventilator or artificial nutrition. I discussed with the patient and she did not want any intubation or ventilator and she agreeable to DNR CC. This was discussed with the patient significant other and the granddaughter. We all agree with palliative/hospice care. Hospice care consulted. This was communicated to the patient's RN, Nikkie. Patient was made DNR CC. As mentioned above hospice consulted. Unfortunately patient at 1935 hrs. on 12/26/2023 Visit Charges Inpatient E&M: 53923 Disch Hosp >30min
== END 2023-12-27 01:35 | DRG 291 ==
LOC: ED 17:40 → PCU 18:02 → ICU 12-22 06:33
PROVIDERS: Internal Medicine; Internal Medicine Critical Care Medicine; Admitting Provider Internal Medicine; Emergency Provider Emergency Medicine; PCP Internal Medicine; Visit Provider Internal Medicine
DX: I11.0 Hypertensive heart disease with heart failure (principal); I50.21 Acute systolic (congestive) heart failure; J96.21 Acute and chronic respiratory failure with hypoxia; E43 Unspecified severe protein-calorie malnutrition; J15.4 Pneumonia due to other streptococci; J96.22 Acute and chronic respiratory failure with hypercapnia; J44.0 Chronic obstructive pulmonary disease with (acute) lower respiratory infection; C34.32 Malignant neoplasm of lower lobe, left bronchus or lung; Z68.1 Body mass index [BMI] 19.9 or less, adult; N39.0 Urinary tract infection, site not specified; R57.0 Cardiogenic shock; I42.9 Cardiomyopathy, unspecified; I34.0 Nonrheumatic mitral (valve) insufficiency; F32.A Depression, unspecified; D64.9 Anemia, unspecified; K21.9 Gastro-esophageal reflux disease without esophagitis; E87.6 Hypokalemia; E78.5 Hyperlipidemia, unspecified; F17.210 Nicotine dependence, cigarettes, uncomplicated; I37.1 Nonrheumatic pulmonary valve insufficiency; I95.2 Hypotension due to drugs; J43.9 Emphysema, unspecified; G89.29 Other chronic pain; Y92.239 Unspecified place in hospital as the place of occurrence of the external cause; T44.5X5A Adverse effect of predominantly beta-adrenoreceptor agonists, initial encounter; I49.3 Ventricular premature depolarization; Z51.5 Encounter for palliative care; Z99.81 Dependence on supplemental oxygen; Z79.51 Long term (current) use of inhaled steroids; Z79.899 Other long term (current) drug therapy
CPT/HCPCS: 31500; 31720; 36415; 36600; 71045; 80048; 80053; 80061; 80076; 81001; 82077; 82550; 82803; 83735; 83880; 84100; 84145; 84439; 84443; 84478; 84481; 84484; 85025; 85027; 85610; 85730; 87040; 87070; 87077; 87086; 87088; 87186; 87205; 92610; 93005; 93308; 94002; 94003; 94640; 94660; 94668; 94762; 97162; 97166; 97802; 97803; 99252; 99285; 99406; J7030; J7050; Q9957; A4216; C8924; G0463; J0295; J1940; J2405; J3490